=== PATIENT | female | born 1940 | race Caucasian/White ===

== ENCOUNTER 2018-04-21 09:58 | Inpatient (IN) | payer MEDICARE, MEDICAID, SELFPAY ==
[2018-04-21 10:00] VITALS: BP 136/81; PULSE 115; RESP 17; TEMP 36.3; O2SAT 93; BMI 23.3
--- NOTE | 2018-04-21 10:39 | ED.VISSUMM ---
- ER Visit Summary Date of Service: 04/21/18 Chief Complaint: [] Spasm to the right side of the body for years cannot function at home History of Present Illness: The patient is a 78 F [] long history of unspecified spasm to her body primarily the right side the hips the lower extremity the right lower ankle is contorted internally flexed rotated long-standing, she has been seen extensively by multiple physicians per the family including neurologist orthopedics other physicians and providers she has been evaluated for bony disorders or musculoskeletal disorders MS etc. no clear diagnosis has been established, she was under the care of physical therapy but that had to be stopped because a physical therapy actually made things worse. Today she followed up with her primary care outpatient providers while in the office she had persistent intensification of the spasm to the point that they could not get her into the car they could not get her home the daughter cannot take care of her paramedics were called she was brought to the hospital Chronic relapsing condition there is been nothing different or new or changed, she has had no fever no cough no trauma, she occasionally will use Flexeril for her complaints she does have diabetes and some dependent should her blood sugars been under 300 she has not taken any medicines today Physical Examination: [] 130/81, General, no distress resting comfortably HEENT is generally unremarkable The neck is supple no adenopathy Cardiovascular, regular rate and rhythm Lungs, clear bilateral Abdomen, soft nontender Extremities, no clubbing cyanosis or edema, she complains of spasm from her hip down her right leg diffusely, her right lower extremity is chronically internally flexed at the ankle, there is no pain no warmth no swelling no signs of trauma per the family her back exam is unremarkable without lesions or pain she bases complains of a spasm that starts in the upper right leg goes down the thigh down the knee down the tib-fib into the ankle that is a recurrent process she has had and she cannot find any areas of relief, this is a standard stable condition for her except for the persistent nature of the pain in the spasm Neurologic, awake alert answering questions Long conversation with the patient her daughter this is an chronic relapsing condition given all of the above we will provide IV fluids screening labs pain management some muscle relaxer controlled with Ativan, the daughter states she can no longer manage her at home they have been trying to work with outpatient providers to get her into a fdc the daughter would like that expedited through the emergency department I have explained to her we will have medical social consultant see her and see what can be done Test Results: [] Emergency Department Course and Treatment: [] She also services has seen the patient they are unable to arrange for direct fdc placement from the emergency department the daughter states she cannot manage and take care of her at home any longer because of all the above I spoke with the hospitalist to see her further management admission Treatment Plan: [] Disposition: [] admit stable Impression: [] Intractable right lower extremity pain and spasm, failed outpatient management This note was generated with [employer]pi dictation software. It may contain incorrect words, spelling, and punctuation that were not noted in review of the chart prior to signing ED Disposition - Plan for ED Patient: Chief Complaint: Other, Pain/Inj Referrals: Marcell Chery MD [Primary Care Provider] -
--- NOTE | 2018-04-21 10:43 | ED.DCSUM_ITS ---
- ER Visit Summary Date of Service: 04/21/18 Chief Complaint: [] Spasm to the right side of the body for years cannot function at home History of Present Illness: The patient is a 78 F [] long history of unspecified spasm to her body primarily the right side the hips the lower extremity the right lower ankle is contorted internally flexed rotated long-standing, she has been seen extensively by multiple physicians per the family including neurologist orthopedics other physicians and providers she has been evaluated for bony disorders or musculoskeletal disorders MS etc. no clear diagnosis has been established, she was under the care of physical therapy but that had to be stopped because a physical therapy actually made things worse. Today she followed up with her primary care outpatient providers while in the office she had persistent intensification of the spasm to the point that they could not get her into the car they could not get her home the daughter cannot take care of her paramedics were called she was brought to the hospital Chronic relapsing condition there is been nothing different or new or changed, she has had no fever no cough no trauma, she occasionally will use Flexeril for her complaints she does have diabetes and some dependent should her blood sugars been under 300 she has not taken any medicines today Physical Examination: [] 130/81, General, no distress resting comfortably HEENT is generally unremarkable The neck is supple no adenopathy Cardiovascular, regular rate and rhythm Lungs, clear bilateral Abdomen, soft nontender Extremities, no clubbing cyanosis or edema, she complains of spasm from her hip down her right leg diffusely, her right lower extremity is chronically internally flexed at the ankle, there is no pain no warmth no swelling no signs of trauma per the family her back exam is unremarkable without lesions or pain she bases complains of a spasm that starts in the upper right leg goes down the thigh down the knee down the tib-fib into the ankle that is a recurrent process she has had and she cannot find any areas of relief, this is a standard stable condition for her except for the persistent nature of the pain in the spasm Neurologic, awake alert answering questions Long conversation with the patient her daughter this is an chronic relapsing condition given all of the above we will provide IV fluids screening labs pain management some muscle relaxer controlled with Ativan, the daughter states she can no longer manage her at home they have been trying to work with outpatient providers to get her into a mcc the daughter would like that expedited through the emergency department I have explained to her we will have certified social workers in health care see her and see what can be done Test Results: [] Emergency Department Course and Treatment: [] She also services has seen the patient they are unable to arrange for direct mcc placement from the emergency department the daughter states she cannot manage and take care of her at home any longer because of all the above I spoke with the hospitalist to see her further management admission Treatment Plan: [] Disposition: [] admit stable Impression: [] Intractable right lower extremity pain and spasm, failed outpatient management This note was generated with [employer] dictation software. It may contain incorrect words, spelling, and punctuation that were not noted in review of the chart prior to signing ED Disposition - Plan for ED Patient: Chief Complaint: Other, Pain/Inj Referrals: Marcell Chery MD [Primary Care Provider] -
--- NOTE | 2018-04-21 11:07 | ED.RN ---
PER PT DAUGHTER. PT IS NOT ABLE TO RETURN HOME D/T PT THREATENING TO HARM HERSELF
[2018-04-21 11:12] LABS: Absolute Lymphocyte Count 1.56 X10^3/ul (0.83-4.51); Absolute Neutrophil Count 7.6 X10^3/uL (2.0-7.7); Basophil# 0.01 X10^3/uL; Basophil% 0.1 % (0-1); Eosinophil# 0.03 X10^3/uL; Eosinophils% 0.3 % (0-5); Hematocrit 41.8 % (37-47); Hemoglobin 13.9 g/dl (12.0-15.0); Lymphocyte # 1.56 X10^3/ul (4.0); Lymphocyte % 16.3 % (19-41); Mean Corp Hgb Conc 33.3 g/gl (32-36); Mean Corpuscular Hgb 28.5 pg (27.0-32.0); Mean Corpuscular Volume 85.8 fL (81-99); Mean Platelet Vol. 10.9 fl (6.2-12.0); Monocyte# 0.35 X10^3/uL; Monocyte% 3.6 % (0-10); Neutrophil % 79.3 % (47-70); Platelet Count 164 K/mm3 (150-450); RBC Distribution Width CV 13.4 % (11.6-14.6); RBC Distribution Width SD 41.3 fl (35.1-43.9); Red Blood Count 4.87 M/mm3 (4.2-5.4); White Blood Count 9.6 K/mm3 (4.4-11.0)
[2018-04-21 11:15] LABS: POSITIVE COUNT NO; POSITIVE DIFFERENTIAL NO; POSITIVE MORPHOLOGY NO
[2018-04-21] MEDS: LORazepam 2 MG/ML Syringe 0.5 MG IV (11:17)
[2018-04-21] MEDS: Ondansetron 4 MG/2 ML Vial IV (11:18)
[2018-04-21 11:21] LABS: Anion Gap 11 (5-15); BUN 22 mg/dL (7-18); BUN/Creat Ratio 27.9 RATIO (10-20); Chloride 102 mmol/L (98-107); Creatinine, Serum 0.79 mg/dL (0.55-1.02); EST Glomerular Filtration Rate 75 mL/min (>60); Est Glom Filt Rate - Afr Amer 91 mL/min (>60); Estimated Creatinine Clearance 39.59 ml/min; Glucose 368 mg/dL (74-106); Potassium 4.6 mmol/L (3.5-5.1); Sodium Level 138 mmol/L (136-145)
--- NOTE | 2018-04-21 11:44 | CM.ED ---
Social Work Note Call from F Mady RODRIGUES, stating that the pt and family will be seeking assisted placement. Face to face with the pt. Introduced self and role at [facility]. The pt reports that she moved to [place] with her daughter, Nyla, following discharge from a SNF in [place] in December of this year. She claims she was there for approximately 5 months. She presently has Medicare A and B, but denies having a hospitalization in the past 30 days. Reports that she had Medicaid in [place], but is not sure that they had it transferred to [place] when she moved. Reports that she lives with her daughter, Nyla, Son in Law, Xander, and two granddaughters, Carmella (17) and Willow (14). They live in a two-story home with a one-level setup for the pt. She has a wheelchair and walker at home, but primarily uses the wheelchair per her report. States that the walker she has is too short. She has been participating in outpatient therapy she states. At this time she reports that she would like to go into a SNF for continued therapy. Complains of stiffness in her legs contributing to difficulty with walking. [facility] whether [facility] does or does not have Medicaid. According to the pt her income is $675/month and she receives $77 in [employer]. Inquire if she is currently getting the [employer] and she states that she does not know. Need to validate that benefits were transferred from [place] to [place] before continuing with assistance in transferring to SNF/ECF. After waiting on hold for 25 minutes with S they confirmed that the pt and her daughter had applied for Medicaid for her in March. They are awaiting confirmation from [place] that the Medicaid benefits from there have stopped. Placed call to pt's daughter Nyla, who states that she would like the pt to go to [facility]. Inform that unfortunately they typically do not have beds, and encourage her to have an alternative option. Nyla states that she does not have one. Inquire what her plan will be if [facility] does not have availability and she states to take her home. Begins in with if she is living with her though the pt becomes a lower priority on the waiting list than if she were in the hospital. Express understanding, but explain that we cannot just admit the pt so she remains on higher priority. Discuss some facilities and Nyla states if [facility] cannot accept she would be interested in [facility] [place] as it is newer. Placed call to Leeann at [facility] who confirms that they do not have long-term availability at this time, nor do they accept pending Medicaid. Per Leeann the family was given information on how to place the pt on the waiting list and states that they need to do this via completion of the application. Will relay to pt's daughter, Nyla. Placed call to Nyla at [facility]. Nyla states that she will contact [facility] and if they think that the pending Medicaid will go through she would review the referral. Placed call to [facility]) at [phone]. States that the client herself needs to request that these records be sent to our local [facility]. Placed call to pt's daughter, Nyla, to update. JACINTA Sosa, CHEO
[2018-04-21 13:13] VITALS: BP 104/56; PULSE 80; RESP 18; O2SAT 96
--- NOTE | 2018-04-21 14:39 | CM.ED ---
Social Work Note Discussed case with physician and pt to be admitted in observation status while awaiting authorization from Medicaid. Updated pt's daughter, Nyla. Samira Garcia, PRECISION AGRONOMIST, [facility]
--- NOTE | 2018-04-21 14:42 | HP.PCM_ITS ---
History of Present Illness Date of Admission: 04/21/18 Chief Complaint: Generalized pain and cramps The patient is a 78 year old F with past medical history of diabetes mellitus and chronic pain. She was admitted through the ED on 04/21/2018 with a complaint of severe cramps and generalized pain. Grams remaining his lower extremities. According to patient, she was diagnosed with DKA year ago and spent about a week in the ICU. After that he started having severe generalized pain and periodic cramps which was admitted in the skilled nursing for therapy. She was recently discharged from the skilled nursing when see her PCP today. She was having terrible cramps and was unable to get in the car on her own and comes in pain persisted. She therefore decided coming to the ED for evaluation. Bradycardia documentation, she has been reviewed by multiple physicians including neurology, orthopedic surgery for bone or muscular skeletal disorders but no diagnosis has been established. Bradycardia notes, she is to follow-up with physical therapy because therapy was actually making situations worse. Vitals in the ED showed pulse rate of 115 was otherwise unremarkable. CBC was essentially unremarkable and chemistry only showed glucose of 368. She is been admitted to be managed for severe cramps and generalized intractable pain. She is for placement. The ED did try placing her in a skilled nursing but the skilled nursing would not take her until [facility] at [facility]. [] Past Medical History Allergies No Known Allergies Allergy (Verified 04/21/18 10:00) Home Medications: Ambulatory Orders Medication Instructions Recorded Acetaminophen [Tylenol Extra 1,000 mg PO PRN PRN 04/21/18 Strength] Insulin Aspart [Novolog Flexpen See Protocol SC TIDCM 04/21/18 ([facility])] Insulin Detemir [Levemir (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 Denies: Chills, Fever, Malaise, Weight Change, Fatigue Eyes: Denies: Blurred vision HEENT: Denies: Head Aches, Sinus Congestion, Sinus Drainage Cardiovascular: Denies: Chest Pain, Palpitations Respiratory: Denies: Cough, Shortness of Breath, Shortness of breath at rest, Sputum production Gastrointestinal: Denies: Abdominal Pain, Nausea, Vomiting Genitourinary: Denies: Dysuria Musculoskeletal: Reports: Leg Pain, Muscle pain. Denies: Joint Pain, Joint Tenderness, Neck Pain, Shoulder Pain Skin: Denies: Rash, Wounds Neurological: Denies: Numbness, Tingling, Focal weakness Psychiatric: Denies: Anxiety, Depression, Homicidal Ideations, Suicidal Ideations Hematologic/ Lymphatic: Denies: Easy Bruising, Easy Bleeding VTE Information - Inpt Only VTE Present on Admission: No VTE Pharm Prophylaxis ordered?: Yes - Physical Exam General: Alert, Oriented x3, Cooperative, No apparent distress HEENT: Atraumatic, PERRLA, EOMI, Normocephalic Oral: Moist Mucosa Neck: Supple, No JVD, Negative Carotid Bruits Lungs: Clear to auscultation, Normal air movement, No rhonchi, No wheeze, No rales Cardiovascular: Regular rate, Regular Rhythm, Normal S1, Normal S2, No murmurs Abdomen: Bowel Sounds Present, Soft, Non Tender, Non-Distended, No Hepato- splenomegaly Extremities: No clubbing, No cyanosis, No edema, Capillary Refill Less than 3 Seconds Skin: No rashes, No breakdown Musculoskeletal: Tenderness - generalised tenderness of LEs on palpation; internal rotation of right foot. Lymphatic: No Cervical, Supraclavicular, or Inguinal Adenopathy Neurological: Cranial nerves II-XII grossly intact, Neuro grossly intact, - - right foot internally rotated; decreased power with dorsiflexion and plantar flexion of both feet Psych/Mental Status: Normal Affect, Appropriate, Alert and oriented to time, place, person, mood and affect Vital Signs Temp Pulse Resp BP Pulse Ox 97.3 F L 80 18 104/56 L 96 04/21/18 10:00 04/21/18 13:13 04/21/18 13:13 04/21/18 13:13 04/21/18 13:13 Oxygen Delivery Method Room Air Weight: 132 lb Body Mass Index (BMI) 23.3 Laboratory Tests Past 24 Hrs 04/21/18 04/21/18 10:57 10:57 WBC 9.6 RBC 4.87 Hgb 13.9 Hct 41.8 MCV 85.8 MCH 28.5 MCHC 33.3 RDW 13.4 RDW Differential 41.3 Plt Count 164 MPV 10.9 Immature Gran % (Auto) 0.400 Neut % (Auto) 79.3 H Lymph % (Auto) 16.3 L Bryan % (Auto) 3.6 Eos % (Auto) 0.3 Baso % (Auto) 0.1 Absolute Neuts (auto) 7.6 Absolute Lymphs (auto) 1.56 Total Counted Not Reportable Sodium 138 Potassium 4.6 Chloride 102 Carbon Dioxide 25.0 Anion Gap 11 BUN 22 H Creatinine 0.79 Estim Creat Clear Calc 39.59 Est GFR (MDRD) Af Amer 91 Est GFR (MDRD) Non-Af 75 BUN/Creatinine Ratio 27.9 H Glucose 368 H Calcium 9.0 Assessment/Plan 78-year-old female admitted with a complaint of generalized cramps and intractable pain. 1. Intractable acute on chronic pain of unclear etiology * has severe pain and cramps in LEs, which is chronic, but worsened today * had been working with PT previously, but says she felt limited because she was being given cues as to when to stop walking, even though she felt she could walk some more * admit to Med surg * PT/OT consult * tylenol for pain * for placement * will check CPK and TSH * 2. Diabetes mellitus: Glucose was 368 on admission. On insulin Levemir 25 subcut daily and insulin sliding scale. Accu-Cheks AC at bedtime. 3. Hypothyroidism: On levothyroxine 75 mg daily. Will check TSH DVT prophylaxis: Heparin Code status: Patient counseled extensively about different types of CODE STATUS including full code, DNR CCA and DNR CCA. Patient elects to be full code. Total [id number] time 16 minutes. Disposition: For placement in SNF Code Visit OBSV E&M: 85297 Initial observation care L3 Procedures: 60571 Advncd Care Plan 30 Min
--- NOTE | 2018-04-21 14:51 | NURSING ---
[facility] INTRACTABLE PAIN, CRAMPS
--- NOTE | 2018-04-21 15:10 | CM.ED ---
Social Work Note Call from Nyla at [facility] stating that they can accept. Reports that the pt does have active Medicaid according to her system and the number is [id number]. Will relay to on assigned unit. JACINTA Sosa, CHEO
[2018-04-21 15:37] VITALS: BMI 20.7
[2018-04-21 15:38] VITALS: BP 108/63; PULSE 84; RESP 18; TEMP 36.6; O2SAT 97
[2018-04-21 15:40] VITALS: BMI 20.7
[2018-04-21] MEDS: Insulin Lispro 100 UNIT/ML INSULN.PEN SQ ×2 (16:56→20:45)
[2018-04-21] MEDS: Glucerna Shake 120 ML LIQUID PO ×2 (17:00→20:59)
[2018-04-21 18:16] LABS: Bedside Glucose 235 mg/dL (70-110)
[2018-04-21 18:21] LABS: CPK Total, Creatine Kinase 40 U/L (26-192); Thyroid Stim Hormone (TSH) 0.24 uIU/mL (0.358-3.74)
[2018-04-21 18:25] LABS: Hemoglobin A1c 6.8 % (4.2-6.3)
[2018-04-21 20:25] VITALS: BP 113/69; PULSE 85; RESP 16; TEMP 36.7; O2SAT 92
--- NOTE | 2018-04-21 20:38 | NURSING ---
Pts BS check was 526. Called & informed Dr. Haines who ordered x1 dose of Lantus 20units SQ + 15 units sliding scale Humalog. Educated pt on reasons why I was giving her the 2 different kind and why the particular units were ordered. Also informed pt to not get out of bed.
[2018-04-21 22:36] LABS: Bedside Glucose > 500 mg/dL (70-110)
--- NOTE | 2018-04-21 22:40 | NURSING ---
Rechecked pts BS which was 414. Informed Dr. Haines and he stated no new orders at this time.
[2018-04-21 22:41] LABS: Bedside Glucose 414 mg/dL (70-110)
[2018-04-22 03:07] VITALS: BP 106/59; PULSE 77; RESP 14; TEMP 36.7; O2SAT 96
[2018-04-22 05:56] LABS: Absolute Neutrophil Count 3.3 X10^3/uL (2.0-7.7); Basophil# 0.03 X10^3/uL; Basophil% 0.5 % (0-1); Eosinophils% 1.6 % (0-5); Hematocrit 37.8 % (37-47); Hemoglobin 12.5 g/dl (12.0-15.0); Lymphocyte % 39.4 % (19-41); Mean Corp Hgb Conc 33.1 g/gl (32-36); Mean Corpuscular Hgb 28.7 pg (27.0-32.0); Mean Corpuscular Volume 86.9 fL (81-99); Mean Platelet Vol. 11.2 fl (6.2-12.0); Monocyte# 0.37 X10^3/uL; Monocyte% 5.8 % (0-10); Neutrophil # 3.33 X10^3/uL (2.7-7.7); Neutrophil % 52.5 % (47-70); Platelet Count 163 K/mm3 (150-450); RBC Distribution Width CV 13.5 % (11.6-14.6); RBC Distribution Width SD 41.3 fl (35.1-43.9); Red Blood Count 4.35 M/mm3 (4.2-5.4); White Blood Count 6.3 K/mm3 (4.4-11.0)
[2018-04-22 06:07] LABS: POSITIVE COUNT NO; POSITIVE DIFFERENTIAL NO; POSITIVE MORPHOLOGY NO
[2018-04-22] MEDS: Levothyroxine 75 MCG Tablet PO (06:07)
[2018-04-22] MEDS: Insulin Lispro 100 UNIT/ML INSULN.PEN SQ ×2 (06:12→12:05)
[2018-04-22 06:14] LABS: Anion Gap 7 (5-15); BUN 19 mg/dL (7-18); BUN/Creat Ratio 28.9 RATIO (10-20); Calcium,Total 8.8 mg/dL (8.5-10.1); Chloride 106 mmol/L (98-107); Creatinine, Serum 0.66 mg/dL (0.55-1.02); EST Glomerular Filtration Rate 93 mL/min (>60); Est Glom Filt Rate - Afr Amer 112 mL/min (>60); Estimated Creatinine Clearance 39.59 ml/min; Glucose 245 mg/dL (74-106); Potassium 4.1 mmol/L (3.5-5.1); Sodium Level 140 mmol/L (136-145)
[2018-04-22 06:21] LABS: Bedside Glucose 255 mg/dL (70-110)
--- NOTE | 2018-04-22 07:01 | NURSING ---
Spoke to daughter and gave update about pts night. Shared with her about the increase of Lantus + the Sliding scale. Daughter strongly urged us to keep a close eye on her mother as her sugars tend to be on the brittle side and drop quickly with a hx of seizures in the past. Stated she would be in this afternoon.
[2018-04-22 09:07] VITALS: BP 100/61; PULSE 83; RESP 16; TEMP 36.7; O2SAT 94
[2018-04-22] MEDS: Glucerna Shake 120 ML LIQUID PO ×4 (09:10→20:44)
[2018-04-22] MEDS: Enoxaparin 40 MG/0.4 ML Syringe SC (09:11)
[2018-04-22] MEDS: diazePAM 2 MG Tablet PO ×2 (09:12→17:00)
[2018-04-22 12:16] LABS: Bedside Glucose 221 mg/dL (70-110)
[2018-04-22 13:07] VITALS: BP 97/96; PULSE 76; RESP 16; TEMP 36.9; O2SAT 96
--- NOTE | 2018-04-22 16:08 | PCM.TXEXTCAR ---
- Diet 04/21/18 15:26 Diet: Calorie Controlled How many daily calories?: 1800 calorie - Wound(s) 2nd digit lt foot Wound Type: Abrasion - Therapies Weight Bearing: Full weight bearing Physical Therapy: Eval and Treat Occupational Therapy: Eval and Treat - Problem/Diagnosis (1) Debility Status: Acute Current Visit: Yes (2) Type 2 diabetes mellitus Status: Acute Current Visit: Yes (3) Leg cramps Status: Acute Current Visit: Yes - Allergies/Procedures Done in Hospital Allergies/Adverse Reactions: Allergies No Known Allergies Allergy (Verified 04/21/18 10:00) Procedures: None - Type of Care/Length of Stay Estimated LOS: Convalescent Care Less Than 30 days Type of Care Needed: Skilled Rehab Potential: Good Prognosis: Good - Additional Orders/Day of Discharge H&P will serve as current which was dated: 04/21/18 Day of Discharge: 04/23/18 - Dietary and Speech Recommendations Dietitian Recommendations/Changes: Rec calorie controlled/ 1600 calorie diet to support wt loss w/ lifestyle changes - Follow Up Care Primary Care Physician: Marcell Chery MD [Primary Care Provider] -
--- NOTE | 2018-04-22 16:18 | CASEMGMT ---
Social Work Note Transfer to extended care form has been completed for LOC. SW will fax LOC tomorrow for pt to go to [facility] at discharge. Plan: [facility] pending LOC Mary Camp MSW, MANAGER FLEET
[2018-04-22 17:00] LABS: Bedside Glucose 107 mg/dL (70-110)
[2018-04-22 18:00] VITALS: BP 103/75; PULSE 75; RESP 16; TEMP 36.7; O2SAT 96
--- NOTE | 2018-04-22 19:28 | PCM.PROGNOTE ---
Patient Problems: Active and Suspected Problems Debility (Acute) Type 2 diabetes mellitus (Acute) Leg cramps (Acute) Subjective: Patient was seen and examined today, I talked briefly with the patient's daughter by phone, patient voiced no complaints to this examiner today. We are currently awaiting approval for the patient to be accepted at a halfway facility. According to the patient's daughter, no actual reason for the patient's debility has been diagnosed-she was in a shelter in [place] up until December 2017-she had been there for approximately 5 months and according to the daughter, multiple tests have been run on the patient and she had seen neurologist without an actual diagnosis of why she is debilitated. Patient suffered a sternal fracture earlier this year and July 2017 and that is when she wound up in the shelter in [place]. - Physical Exam General: Alert, Oriented x3, Cooperative, No apparent distress, Well developed HEENT: Atraumatic, PERRLA, EOMI, Normocephalic Oral: Moist Mucosa Neck: Supple, No JVD, Negative Carotid Bruits, No Nuchal Rigidity, Trachea Midline, Thyroid Normal Size and Texture Lungs: Clear to auscultation, Normal air movement, No rhonchi, No wheeze, No rales Cardiovascular: Regular rate, Regular Rhythm, Normal S1, Normal S2, No murmurs, No Ectopic Activity, PMI Normal, No rub noted, No Gallop Abdomen: Bowel Sounds Present, Soft, Non Tender, Non-Distended Extremities: No clubbing, No cyanosis, No edema, Capillary Refill Less than 3 Seconds Skin: No rashes, No breakdown Neurological: Cranial nerves II-XII grossly intact, Neuro grossly intact, Sensory exam intact to light touch and pain Psych/Mental Status: Normal Affect, Appropriate, Alert and oriented to time, place, person, mood and affect Vital Signs Temp Pulse Resp BP Pulse Ox 98.1 F 75 16 103/75 96 04/22/18 18:00 04/22/18 18:00 04/22/18 18:00 04/22/18 18:00 04/22/18 18:00 Oxygen Delivery Method Room Air Weight: 53 kg Body Mass Index (BMI) 20.7 Intake and Output for Last 24 Hours 04/20/18 04/21/18 04/22/18 23:59 23:59 23:59 Intake Total 440 / 440 Balance 440 / 440 Laboratory Tests Past 24 Hrs 04/22/18 04/22/18 05:24 05:24 WBC 6.3 RBC 4.35 Hgb 12.5 Hct 37.8 MCV 86.9 MCH 28.7 MCHC 33.1 RDW 13.5 RDW Differential 41.3 Plt Count 163 MPV 11.2 Immature Gran % (Auto) 0.200 Neut % (Auto) 52.5 Lymph % (Auto) 39.4 [place] % (Auto) 5.8 Eos % (Auto) 1.6 Baso % (Auto) 0.5 Absolute Neuts (auto) 3.3 Absolute Lymphs (auto) 2.50 Total Counted Not Reportable Sodium 140 Potassium 4.1 Chloride 106 Carbon Dioxide 27.0 Anion Gap 7 BUN 19 H Creatinine 0.66 Estim Creat Clear Calc 39.59 Est GFR (MDRD) Af Amer 112 Est GFR (MDRD) Non-Af 93 BUN/Creatinine Ratio 28.9 H Glucose 245 H Calcium 8.8 POC Glucose 04/22/18 04/22/18 04/22/18 16:54 12:03 06:10 POC Glucose 107 221 H 255 H 04/21/18 04/21/18 22:35 20:39 POC Glucose 414 H > 500 H* Medical Necessity - Tobacco Use Smoking Status: Former smoker - quit 20 years ago Tobacco Use: Cigarettes Assessment/Plan All Active Problems Debility (Acute) Type 2 diabetes mellitus (Acute) Leg cramps (Acute) #1 chronic debility-etiology unclear at this point, PT and OT will continue to see the patient, she will need placement in a halfway facility #2 type 2 diabetes-uncontrolled, blood sugars will be monitored, her insulin will be adjusted #3 anxiety-according to the daughter patient has an anxiety disorder, she is not currently on an antidepressant, patient's daughter states that the patient was discouraged by her other daughter not to take antidepressants, I will have a discussion with the patient tomorrow concerning this #4 moderate protein and caloric malnutrition-nutritional services will see patient #5 chronic leg cramps-etiology unclear Code Visit Inpatient E&M: 05839 Init Hosp L3
--- NOTE | 2018-04-22 19:34 | PN_ITS ---
Patient Problems: Active and Suspected Problems Debility (Acute) Type 2 diabetes mellitus (Acute) Leg cramps (Acute) Subjective: Patient was seen and examined today, I talked briefly with the patient's daughter by phone, patient voiced no complaints to this examiner today. We are currently awaiting approval for the patient to be accepted at a chcf facility. According to the patient's daughter, no actual reason for the patient's debility has been diagnosed-she was in a fci in [place] up until December 2017-she had been there for approximately 5 months and according to the daughter, multiple tests have been run on the patient and she had seen neurologist without an actual diagnosis of why she is debilitated. Patient suffered a sternal fracture earlier this year and July 2017 and that is when she wound up in the fci in [place]. - Physical Exam General: Alert, Oriented x3, Cooperative, No apparent distress, Well developed HEENT: Atraumatic, PERRLA, EOMI, Normocephalic Oral: Moist Mucosa Neck: Supple, No JVD, Negative Carotid Bruits, No Nuchal Rigidity, Trachea Midline, Thyroid Normal Size and Texture Lungs: Clear to auscultation, Normal air movement, No rhonchi, No wheeze, No rales Cardiovascular: Regular rate, Regular Rhythm, Normal S1, Normal S2, No murmurs, No Ectopic Activity, PMI Normal, No rub noted, No Gallop Abdomen: Bowel Sounds Present, Soft, Non Tender, Non-Distended Extremities: No clubbing, No cyanosis, No edema, Capillary Refill Less than 3 S econds Skin: No rashes, No breakdown Neurological: Cranial nerves II-XII grossly intact, Neuro grossly intact, Sensory exam intact to light touch and pain Psych/Mental Status: Normal Affect, Appropriate, Alert and oriented to time, place, person, mood and affect Vital Signs Temp Pulse Resp BP Pulse Ox 98.1 F 75 16 103/75 96 04/22/18 18:00 04/22/18 18:00 04/22/18 18:00 04/22/18 18:00 04/22/18 18:00 Oxygen Delivery Method Room Air Weight: 53 kg Body Mass Index (BMI) 20.7 Intake and Output for Last 24 Hours 04/20/18 04/21/18 04/22/18 23:59 23:59 23:59 Intake Total 440 / 440 Balance 440 / 440 Laboratory Tests Past 24 Hrs 04/22/18 04/22/18 05:24 05:24 WBC 6.3 RBC 4.35 Hgb 12.5 Hct 37.8 MCV 86.9 MCH 28.7 MCHC 33.1 RDW 13.5 RDW Differential 41.3 Plt Count 163 MPV 11.2 Immature Gran % (Auto) 0.200 Neut % (Auto) 52.5 Lymph % (Auto) 39.4 [place] % (Auto) 5.8 Eos % (Auto) 1.6 Baso % (Auto) 0.5 Absolute Neuts (auto) 3.3 Absolute Lymphs (auto) 2.50 Total Counted Not Reportable Sodium 140 Potassium 4.1 Chloride 106 Carbon Dioxide 27.0 Anion Gap 7 BUN 19 H Creatinine 0.66 Estim Creat Clear Calc 39.59 Est GFR (MDRD) Af Amer 112 Est GFR (MDRD) Non-Af 93 BUN/Creatinine Ratio 28.9 H Glucose 245 H Calcium 8.8 POC Glucose 04/22/18 04/22/18 04/22/18 16:54 12:03 06:10 POC Glucose 107 221 H 255 H 04/21/18 04/21/18 22:35 20:39 POC Glucose 414 H > 500 H* Medical Necessity - Tobacco Use Smoking Status: Former smoker - quit 20 years ago Tobacco Use: Cigarettes Assessment/Plan All Active Problems Debility (Acute) Type 2 diabetes mellitus (Acute) Leg cramps (Acute) #1 chronic debility-etiology unclear at this point, PT and OT will continue to see the patient, she will need placement in a chcf facility #2 type 2 diabetes-uncontrolled, blood sugars will be monitored, her insulin will be adjusted #3 anxiety-according to the daughter patient has an anxiety disorder, she is not currently on an antidepressant, patient's daughter states that the patient was discouraged by her other daughter not to take antidepressants, I will have a discussion with the patient tomorrow concerning this #4 moderate protein and caloric malnutrition-nutritional services will see patient #5 chronic leg cramps-etiology unclear Code Visit Inpatient E&M: 85602 Init Hosp L3
[2018-04-22 20:23] VITALS: BP 144/74; PULSE 78; RESP 14; TEMP 36.7; O2SAT 95
[2018-04-22 21:16] LABS: Bedside Glucose 92 mg/dL (70-110)
[2018-04-23 00:16] LABS: Bedside Glucose 127 mg/dL (70-110)
[2018-04-23 03:40] VITALS: BP 117/70; PULSE 71; RESP 14; TEMP 36.4; O2SAT 93
[2018-04-23] MEDS: Levothyroxine 75 MCG Tablet PO (06:26)
[2018-04-23 06:46] LABS: Bedside Glucose 78 mg/dL (70-110)
--- NOTE | 2018-04-23 09:18 | CASEMGMT ---
Social Work Note SW faxed LOC to [facility]. Plan: [facility] pending LOC Mary Camp SPECIALTY DEPARTMENT SUPERVISOR, WRITER PRODUCER
[2018-04-23 09:40] VITALS: BP 109/61; PULSE 70; RESP 16; TEMP 36.7; O2SAT 95
[2018-04-23] MEDS: Glucerna Shake 120 ML LIQUID PO ×4 (09:54→21:33)
[2018-04-23] MEDS: Enoxaparin 40 MG/0.4 ML Syringe SC (09:55)
[2018-04-23] MEDS: diazePAM 2 MG Tablet PO ×2 (09:56→17:27)
[2018-04-23 11:45] LABS: Bedside Glucose 263 mg/dL (70-110)
[2018-04-23] MEDS: Insulin Lispro 100 UNIT/ML INSULN.PEN SQ (11:59)
--- NOTE | 2018-04-23 13:00 | CASEMGMT ---
Social Work Note SW placed a call to pt's daughter Nyla and updated her that once this worker receives LOC and pt is medically cleared she can discharge to SNF and that could be today as LOC was submitted earlier today. Nyla states understanding. Plan: [facility] pending LOC Mary Camp MEAL PACKER, MEDICAL CONSULTANT
[2018-04-23 15:40] VITALS: BP 130/35; PULSE 62; RESP 16; TEMP 36.8; O2SAT 96
--- NOTE | 2018-04-23 16:59 | CASEMGMT ---
Social Work Note SW received LOC from [facility]. SW updated physician that pt is able to discharge today to SNF under LOC. Per Physician, he will keep pt tonight due to medical reasons and will make a decision tomorrow regarding discharge. Plan: Pt can discharge to [facility] once medically cleared Mary Camp PIT TANNER, VERIFIER OPERATOR
[2018-04-23 17:31] LABS: Bedside Glucose 148 mg/dL (70-110)
--- NOTE | 2018-04-23 19:58 | PCM.PROGNOTE ---
Patient Problems: Active and Suspected Problems Debility (Acute) Type 2 diabetes mellitus (Acute) Leg cramps (Acute) Subjective: Patient was seen and examined today, we are awaiting approval for the patient to be placed in a chcf facility, I talked at length with the patient's daughter last night about her medical problems, her PCP relayed some information to her chart from his office today concerning her previous workup it appears that she has had MRIs of her back and brain and there was no definitive conclusion why the patient was debilitated. I talked to the patient briefly today about taking an antidepressant, she confirmed that she talked with her daughter can discerning taking the antidepressant and that she was not opposed to taking one. I will start her on Cymbalta today. Blood sugars are still fluctuating but overall are not high. - Physical Exam General: Alert, Oriented x3, Cooperative, No apparent distress, Well developed HEENT: Atraumatic, PERRLA, EOMI, Normocephalic Oral: Moist Mucosa Neck: Supple, No Nuchal Rigidity, Trachea Midline, Thyroid Normal Size and Texture Lungs: Clear to auscultation, Normal air movement, No rhonchi, No wheeze, No rales Cardiovascular: Regular rate, Regular Rhythm, Normal S1, No murmurs Abdomen: Bowel Sounds Present, Soft, Non Tender, Non-Distended Extremities: No clubbing, No cyanosis, No edema, Capillary Refill Less than 3 Seconds, - - There is a varus deformity of the patient's right foot noted, patient resists any straightening of the foot due to pain Skin: No rashes, No breakdown Neurological: Cranial nerves II-XII grossly intact, Neuro grossly intact, Sensory exam intact to light touch and pain Psych/Mental Status: Normal Affect, Appropriate, Alert and oriented to time, place, person, mood and affect Vital Signs Temp Pulse Resp BP Pulse Ox 98.2 F 62 16 130/35 H 96 04/23/18 15:40 04/23/18 15:40 04/23/18 15:40 04/23/18 15:40 04/23/18 15:40 Oxygen Delivery Method Room Air Weight: 53 kg Body Mass Index (BMI) 20.7 Intake and Output for Last 24 Hours 04/21/18 04/22/18 04/23/18 23:59 23:59 23:59 Intake Total 440 / 440 300 / 300 Balance 440 / 440 300 / 300 POC Glucose 04/23/18 04/23/18 04/23/18 16:51 11:35 06:28 POC Glucose 148 H 263 H 78 04/23/18 04/22/18 00:10 20:43 POC Glucose 127 H 92 Medical Necessity - Tobacco Use Smoking Status: Former smoker - quit 20 years ago Tobacco Use: Cigarettes Assessment/Plan All Active Problems Debility (Acute) Type 2 diabetes mellitus (Acute) Leg cramps (Acute) #1 chronic debility-etiology unclear at this point, PT and OT will continue to see the patient, she will need placement in a chcf facility #2 type 2 diabetes-uncontrolled, blood sugars will be monitored, her insulin will be adjusted, she will be monitored for hypoglycemia #3 anxiety-we will start the patient on Cymbalta at 30 mg daily #4 moderate protein and caloric malnutrition-nutritional services is seeing the patient #5 chronic leg cramps-etiology unclear #6 possible depression-again Cymbalta will be started Code Visit Inpatient E&M: 31565 Subs Hosp L2
--- NOTE | 2018-04-23 20:02 | PN_ITS ---
Patient Problems: Active and Suspected Problems Debility (Acute) Type 2 diabetes mellitus (Acute) Leg cramps (Acute) Subjective: Patient was seen and examined today, we are awaiting approval for the patient to be placed in a assisted facility, I talked at length with the patient's daughter last night about her medical problems, her PCP relayed some information to her chart from his office today concerning her previous workup it appears that she has had MRIs of her back and brain and there was no definitive conclusion why the patient was debilitated. I talked to the patient briefly today about taking an antidepressant, she confirmed that she talked with her daughter can discerning taking the antidepressant and that she was not opposed to taking one. I will start her on Cymbalta today. Blood sugars are still fluctuating but overall are not high. - Physical Exam General: Alert, Oriented x3, Cooperative, No apparent distress, Well developed HEENT: Atraumatic, PERRLA, EOMI, Normocephalic Oral: Moist Mucosa Neck: Supple, No Nuchal Rigidity, Trachea Midline, Thyroid Normal Size and Texture Lungs: Clear to auscultation, Normal air movement, No rhonchi, No wheeze, No rales Cardiovascular: Regular rate, Regular Rhythm, Normal S1, No murmurs Abdomen: Bowel Sounds Present, Soft, Non Tender, Non-Distended Extremities: No clubbing, No cyanosis, No edema, Capillary Refill Less than 3 Seconds, - - There is a varus deformity of the patient's right foot noted, patient resists any straightening of the foot due to pain Skin: No rashes, No breakdown Neurological: Cranial nerves II-XII grossly intact, Neuro grossly intact, Sensory exam intact to light touch and pain Psych/Mental Status: Normal Affect, Appropriate, Alert and oriented to time, place, person, mood and affect Vital Signs Temp Pulse Resp BP Pulse Ox 98.2 F 62 16 130/35 H 96 04/23/18 15:40 04/23/18 15:40 04/23/18 15:40 04/23/18 15:40 04/23/18 15:40 Oxygen Delivery Method Room Air Weight: 53 kg Body Mass Index (BMI) 20.7 Intake and Output for Last 24 Hours 04/21/18 04/22/18 04/23/18 23:59 23:59 23:59 Intake Total 440 / 440 300 / 300 Balance 440 / 440 300 / 300 POC Glucose 04/23/18 04/23/18 04/23/18 16:51 11:35 06:28 POC Glucose 148 H 263 H 78 04/23/18 04/22/18 00:10 20:43 POC Glucose 127 H 92 Medical Necessity - Tobacco Use Smoking Status: Former smoker - quit 20 years ago Tobacco Use: Cigarettes Assessment/Plan All Active Problems Debility (Acute) Type 2 diabetes mellitus (Acute) Leg cramps (Acute) #1 chronic debility-etiology unclear at this point, PT and OT will continue to see the patient, she will need placement in a assisted facility #2 type 2 diabetes-uncontrolled, blood sugars will be monitored, her insulin will be adjusted, she will be monitored for hypoglycemia #3 anxiety-we will start the patient on Cymbalta at 30 mg daily #4 moderate protein and caloric malnutrition-nutritional services is seeing the patient #5 chronic leg cramps-etiology unclear #6 possible depression-again Cymbalta will be started Code Visit Inpatient E&M: 53644 Subs Hosp L2
[2018-04-23 20:57] VITALS: BP 109/67; PULSE 75; RESP 18; TEMP 36.8; O2SAT 97
[2018-04-23 21:15] VITALS: PULSE 75; RESP 18; O2SAT 97
[2018-04-23] MEDS: DULoxetine Hcl 30 MG Capsule PO (21:33)
[2018-04-23 23:05] LABS: Bedside Glucose 124 mg/dL (70-110)
[2018-04-24 02:38] VITALS: BP 129/89; PULSE 73; RESP 18; TEMP 36.6; O2SAT 96
[2018-04-24] MEDS: Levothyroxine 75 MCG Tablet PO (06:37)
[2018-04-24] MEDS: Insulin Lispro 100 UNIT/ML INSULN.PEN SQ ×4 (06:40→21:22)
[2018-04-24] MEDS: diazePAM 2 MG Tablet PO (06:43)
[2018-04-24 07:10] LABS: Bedside Glucose 270 mg/dL (70-110)
[2018-04-24 08:05] VITALS: BP 124/76; PULSE 65; RESP 18; TEMP 37.1; O2SAT 93
[2018-04-24 10:27] VITALS: BP 116/69; PULSE 72; RESP 18; TEMP 37; O2SAT 94
[2018-04-24] MEDS: Enoxaparin 40 MG/0.4 ML Syringe SC (10:45)
[2018-04-24] MEDS: DULoxetine Hcl 30 MG Capsule PO (10:47)
[2018-04-24 11:06] LABS: Bedside Glucose 324 mg/dL (70-110)
--- NOTE | 2018-04-24 13:39 | CASEMGMT ---
Addendum entered by Mary Camp 04/24/18 14:16: SW updated pt and pt's daughter that physician is keeping pt today and pt should be able to discharge tomorrow. Original Note: Social Work Note Per physician, pt will be discharged tomorrow. LILIA updated Nyla at [facility]. LILIA faxed updated clinicals to Nyla. Plan: [facility] tomorrow Mary Camp GARMENT FINISHER, SALES SOLUTIONS ASSOCIATE
[2018-04-24] MEDS: Glucerna Shake 120 ML LIQUID PO ×3 (14:06→21:19)
[2018-04-24 14:16] VITALS: BP 122/71; PULSE 86; RESP 18; TEMP 37.1; O2SAT 98
--- NOTE | 2018-04-24 15:31 | NURSING ---
This RN taking over care at this time
[2018-04-24 16:41] LABS: Bedside Glucose 158 mg/dL (70-110)
--- NOTE | 2018-04-24 16:49 | CON.PCM_ITS ---
Reason for Consult Date of Consultation: 04/24/18 History of Present Illness: The patient is a 78 year old F who presented to my clinic 2.5 months ago for contracture of right ankle. contracture has been present several months now and has progressively worsened. as a result of this contracture, she has been ambulating to the lateral aspect of her foot. she has developed weakness of her lower extremity and is now unable to ambulate. she is anticipating discharge to rehab facility for possible rehab placement. podiatry is consulted to provide recommendations for bracing and/or options to assist in strengthening of right lower extremity. Past Medical History Allergies No Known Allergies Allergy (Verified 04/21/18 10:00) Home Medications: Ambulatory Orders Medication Instructions Recorded Acetaminophen [Tylenol Extra 1,000 mg PO PRN PRN 04/21/18 Strength] Insulin Detemir [Levemir FlexPen] 25 units SC DAILY 04/21/18 Levothyroxine [Synthroid] 75 mcg PO DAILY 04/21/18 Diazepam [Valium] 2 mg PO TID PRN PRN #20 tab 04/22/18 Surgical History: no surgical history Psychiatric History: No pertinent psych hx FLORIST MANAGER History: No pertinent FLORIST MANAGER history Lives: With Family Smoking Status: Former smoker - quit 20 years ago Tobacco Use: Cigarettes Alcohol: None Drugs: None - *Family History Paternal History Items: No pertinent history Maternal History Items: Cancer Patient Problems: Active and Suspected Problems Debility (Acute) Type 2 diabetes mellitus (Acute) Leg cramps (Acute) Objective: patient is alert and orientated x 3. she does not appear in any distress vascular: DP and PT pulses are faint. cft is less than 5 seconds. skin temperature is warm to warm. Hair growth is present b/l Neuro: protective sensation is intact to b/l lower extremity. MMT is 5/5 for plantarflexion, dorsiflexion, inversion and everison of left lower extremity. MMT is 5/5 for dorsiflexion and plantarflexion of right lower extremity. MMT is 3/5 for eversion of right lower extremity. 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 Derm: there are no ulcerations or callus noted to b/l lower extremity. there is risk of potential sore to lateral ankle due to deformity present. 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 - Physical Exam Vital Signs Temp Pulse Resp BP Pulse Ox 98.8 F 86 18 122/71 H 98 04/24/18 14:16 04/24/18 14:16 04/24/18 14:16 04/24/18 14:16 04/24/18 14:16 Oxygen Delivery Method Room Air Weight: 53 kg Body Mass Index (BMI) 20.7 Intake and Output for Last 24 Hours 04/22/18 04/23/18 04/24/18 23:59 23:59 23:59 Intake Total 440 / 440 300 / 300 775 / 775 Output Total 400 / 400 Balance 440 / 440 300 / 300 375 / 375 POC Glucose 04/24/18 04/24/18 04/24/18 16:31 11:03 06:39 POC Glucose 158 H 324 H 270 H 04/23/18 04/23/18 21:36 16:51 POC Glucose 124 H 148 H Assessment/Plan All Active Problems Debility (Acute) Type 2 diabetes mellitus (Acute) Leg cramps (Acute) Patient was examined and informed of current findings This patient was seen by me 2.5 months ago for deformity of right ankle. she has been in therapy and physical therapy has exhausted treatment options for her. prior to me seeing her 2.5 months ago, she had been walking on lateral aspect of right ankle. now apparently she is not walking any more due to this deformity. this deformity is very debilitating for her. I suspect her posterior tibial tendon is overpowering her peroneal tendon in combination with equinus which is causing her deformity. I had referred her to orthopedics in the past but daughter was unable to get patient to appointment. I don't foresee any bracing as ideal option due to rigid nature of her deformity. I fear that any brace or boot would only cause rubbing and potential sore formation. this is challenging case in that all past neuro work-up from [facility] was negative. I would recommend padding of b/l ankles while in bed I would recommend mri of ankle to evaluate for any tendon pathology, most notably the lateral ankle and peroneal tendon. I will contact patient daughter to see if she would like to reschedule with ortho to discuss options for this. I feel that she has poor prognosis with conservative care and bracing.
--- NOTE | 2018-04-24 18:12 | PN_ITS ---
Patient Problems: Active and Suspected Problems Debility (Acute) Type 2 diabetes mellitus (Acute) Leg cramps (Acute) Subjective: She was seen and examined today, I talked with her daughter who is in the room, the daughter had questions about changing the patient to Ativan because she felt that the patient did better on Ativan, I explained to her that most nursing facilities do not like the use of Ativan and that the patient is on Valium for leg cramping and I feel that most nursing facilities would allow the patient to have Valium for the leg cramping. Daughter understands this, I told the patient and the daughter that I believe if the patient has an anxiety issue, it would be more prudent to increase the patient's Cymbalta. Patient is agreed to take a higher dose of Cymbalta. - Physical Exam General: Alert, Oriented x3, Cooperative, No apparent distress, Well developed HEENT: Atraumatic, PERRLA, EOMI, Normocephalic Oral: Moist Mucosa Neck: Supple, No Nuchal Rigidity, Trachea Midline, Thyroid Normal Size and Texture Lungs: Clear to auscultation, Normal air movement, No rhonchi, No wheeze, No rales Cardiovascular: Regular rate, Regular Rhythm, Normal S1, Normal S2, No murmurs, No Ectopic Activity Abdomen: Bowel Sounds Present, Soft, Non Tender Extremities: No clubbing, No cyanosis, Capillary Refill Less than 3 Seconds, - - There is a deformity to the patient's right ankle with a varus deformity noted. Skin: No rashes, No breakdown Neurological: Cranial nerves II-XII grossly intact, Neuro grossly intact, Sensory exam intact to light touch and pain Psych/Mental Status: Normal Affect, Appropriate, Alert and oriented to time, place, person, mood and affect Vital Signs Temp Pulse Resp BP Pulse Ox 98.8 F 86 18 122/71 H 98 04/24/18 14:16 04/24/18 14:16 04/24/18 14:16 04/24/18 14:16 04/24/18 14:16 Oxygen Delivery Method Room Air Weight: 53 kg Body Mass Index (BMI) 20.7 Intake and Output for Last 24 Hours 04/22/18 04/23/18 04/24/18 23:59 23:59 23:59 Intake Total 440 / 440 300 / 300 775 / 775 Output Total 400 / 400 Balance 440 / 440 300 / 300 375 / 375 POC Glucose 04/24/18 04/24/18 04/24/18 16:31 11:03 06:39 POC Glucose 158 H 324 H 270 H 04/23/18 21:36 POC Glucose 124 H Medical Necessity - Tobacco Use Smoking Status: Former smoker - quit 20 years ago Tobacco Use: Cigarettes Assessment/Plan All Active Problems Debility (Acute) Type 2 diabetes mellitus (Acute) Leg cramps (Acute) #1 chronic debility-etiology unclear at this point, PT and OT will continue to see the patient, she will need placement in a senior care facility, I had podiatry see the patient today for her right ankle deformity which appears to be chronic, patient will have an MRI as ordered by podiatry on her right ankle. #2 type 2 diabetes-uncontrolled, blood sugars will be monitored, her insulin will be adjusted, she will be monitored for hypoglycemia, patient's blood sugars have been trending higher today. #3 anxiety-patient's Cymbalta will be increased to 60 mg daily #4 moderate protein and caloric malnutrition-nutritional services is seeing the patient #5 chronic leg cramps-etiology unclear #6 possible depression-again Cymbalta was increased Code Visit Inpatient E&M: 55294 Subs Hosp L2
[2018-04-24 19:56] VITALS: BP 117/63; PULSE 76; RESP 18; TEMP 36.6; O2SAT 97
[2018-04-24 20:00] VITALS: PULSE 76
[2018-04-24 22:10] LABS: Bedside Glucose 292 mg/dL (70-110)
[2018-04-25 02:00] VITALS: BP 111/59; PULSE 77; RESP 18; TEMP 36.6; O2SAT 93
[2018-04-25] MEDS: Levothyroxine 75 MCG Tablet PO (06:36)
[2018-04-25 06:55] LABS: Bedside Glucose 153 mg/dL (70-110)
--- NOTE | 2018-04-25 08:53 | PCA ---
pt off floor
[2018-04-25] MEDS: diazePAM 2 MG Tablet PO (09:15)
[2018-04-25 10:46] VITALS: BP 86/23; PULSE 72; RESP 16; TEMP 36.5; O2SAT 95
[2018-04-25] MEDS: Glucerna Shake 120 ML LIQUID PO (10:53)
[2018-04-25] MEDS: Enoxaparin 40 MG/0.4 ML Syringe SC (10:53)
[2018-04-25] MEDS: DULoxetine Hcl 60 MG Capsule PO (10:55)
[2018-04-25] MEDS: Insulin Lispro 100 UNIT/ML INSULN.PEN SQ (11:02)
--- NOTE | 2018-04-25 11:20 | CASEMGMT ---
Social Work Note Pt is scheduled to have MRI completed today at 2:00pm. SW placed a call to Nyla at [facility] and left her a message informing her on pt's MRI and she should be discharged after MRI. PAS/RR completed in HENS. Transportation form on chart. Green sheet on chart. Plan: Discharge to [facility] once medically cleared Mary Camp GARAGE HELPER, SHOE REPAIRER
[2018-04-25] MEDS: diazePAM 5 MG Tablet PO (11:44)
[2018-04-25 11:45] LABS: Bedside Glucose 237 mg/dL (70-110)
[2018-04-25 11:51] VITALS: BP 104/62
[2018-04-25 12:10] VITALS: BP 113/63; PULSE 78; RESP 18; TEMP 36.4; O2SAT 97
[2018-04-25 15:40] VITALS: BP 115/65; PULSE 70; RESP 16; TEMP 36.3; O2SAT 96
--- NOTE | 2018-04-25 16:42 | MRI_ITS ---
STUDY: MRI RIGHT ANKLE WITHOUT CONTRAST REASON FOR EXAM: Right ankle contracture for 9 months unable to walk. TECHNIQUE: Standardized fat and water weighted pulse sequences were obtained in all 3 orthogonal planes. COMPARISON: None. FINDINGS: Normal subcutis adipose space. There is mild thickening of the distal posterior tibialis tendon (T1 axial image 14) suggestive of tendinosis without discrete tendon tear. Normal flexor digitorum longus tendon. Normal flexor hallucis longus tendon. Normal peroneus longus and brevis tendons. Normal tibialis anterior tendon. Normal extensor hallucis longus tendon. Normal extensor digitorum longus tendons. Normal Achilles tendon and teno-osseous insertion. Normal plantar fascia. Normal plantar calcaneal tubercles. Normal intrinsic muscles of the rearfoot. Normal distal tibiofibular syndesmotic ligamentous complex. Normal lateral ligamentous complex. Normal subtalar ligaments and sinus tarsi. Normal deltoid ligamentous complexes. Normal plantar calcaneonavicular (spring) ligament. Normal tibiotalar articulation. Normal talar dome. Normal subtalar articulations. There is medial subluxation of the navicular at the talonavicular articulation (T1 axial image 17). There is medial subluxation of the cuboid at the calcaneocuboid articulation (T1 axial image 23). Normal navicular-cuneiform articulations. MRI/Lower Ext/No Jt/w/o IMPRESSION: Medial subluxations of the navicular and cuboid at the talonavicular and calcaneocuboid articulations. 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 Electronically Signed: Juan Carlos Truong MD at 15:14 EST Tel , Service support ,
[2018-04-25 16:56] LABS: Bedside Glucose 136 mg/dL (70-110)
--- NOTE | 2018-04-25 18:04 | PCM.TXEXTCAR ---
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 Current Visit: Yes - Allergies/Procedures Done in Hospital Allergies/Adverse Reactions: Allergies No Known Allergies Allergy (Verified 04/21/18 10:00) Procedures: None - Type of Care/Length of Stay Estimated LOS: Convalescent Care Less Than 30 days Type of Care Needed: Skilled Rehab Potential: Good Prognosis: Good - Additional Orders/Day of Discharge Additional Orders: foam cradle boot on both feet when in bed H&P will serve as current which was dated: 04/21/18 Day of Discharge: 04/25/18 - Dietary and Speech Recommendations Dietitian Recommendations/Changes: Rec calorie controlled/ 1600 calorie diet to support wt loss w/ lifestyle changes - Follow Up Care Primary Care Physician: Marcell Chery MD [Primary Care Provider] -
--- NOTE | 2018-04-25 18:57 | PN.SURG_ITS ---
Patient Problems: Active and Suspected Problems Debility (Acute) Type 2 diabetes mellitus (Acute) Leg cramps (Acute) Subjective: patient seen at bedside with no complaints. denies any pain to her right foot. anticipating discharge today to nursing facility. Objective: alert and orientated x 3. patient does not appear in any distress. 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 there is no rom of right subtalar joint and severe loss of rom of right ankle joint mri of right lower extremity shows medial subluxation of navicular and cuboid. no ulcerations are present to b/l lower extremity. - Physical Exam Vital Signs Temp Pulse Resp BP Pulse Ox 97.4 F L 70 16 115/65 96 04/25/18 15:40 04/25/18 15:40 04/25/18 15:40 04/25/18 15:40 04/25/18 15:40 Oxygen Delivery Method Room Air Weight: 53 kg Body Mass Index (BMI) 20.7 Intake and Output for Last 24 Hours 04/23/18 04/24/18 04/25/18 23:59 23:59 23:59 Intake Total 300 / 300 895 / 895 320 / 320 Output Total 400 / 400 300 / 300 Balance 300 / 300 495 / 495 20 / 20 POC Glucose 04/25/18 04/25/18 04/25/18 16:53 10:59 06:34 POC Glucose 136 H 237 H 153 H 04/24/18 21:21 POC Glucose 292 H Medical Necessity - Tobacco Use Smoking Status: Former smoker - quit 20 years ago Tobacco Use: Cigarettes Assessment/Plan All Active Problems Debility (Acute) Type 2 diabetes mellitus (Acute) Leg cramps (Acute) Patient was examined and informed of current findings I had long discussion with patients daughter regarding clinical exam and mri findings. patient has severe rigid contracture of right hindfoot. this has been present for nearly one year. according to daughter, past work-up for neuro deformity was unremarkable. Patient had mri that shows subluxation of navicular and cuboid. I suspect this in addition to equins are contributing to her hindfoot deformity. Patient daughter reports that with mother relaxed, she is able to get the foot back to rectus presentation. I do not see how this is possible as on exam, the hindfoot has no ability to renaldo. given rigid nature of this deformity, I do not feel that bracing or boot is an option. I feel that bracing or boot will only result in rubbing thereby creating ulceration. I feel that the only way one could correct this is with hindfoot surgical intervention. patient daughter is not ready to discuss this option. she would like to discuss other options. I informed patient daughter that I suspect this will be chronic issue. I feel patient is stable for discharge to rehab but she is to make sure she uses foam boots while in bed to prevent ulceration. patient daughter would like another opinion so I will make sure to send patient to another transfer table operator helper. Of note, I did have arrangements 2 months ago for patient to see ortho but her appointment was cancelled by daughter. I will try to forward pateint to another colleague. this can be arranged from rehab.
--- NOTE | 2018-04-26 17:14 | PCM.DC.SUM ---
Discharge Date and Diagnosis Date of Admission: 04/21/18 Date of Discharge: 04/25/18 - Primary Discharge Diagnosis #1 chronic debility-etiology unclear #2 type 2 diabetes-uncontrolled #3 anxiety #4 chronic leg cramps-etiology unclear #5 possible depression #6 subluxation of the right ankle-etiology unclear - Secondary Discharge Diagnosis Chronic Problems Subluxation of right ankle joint (Chronic) Hospital Course and Treatment Operations: None Procedures: None Summary of Care Provided: The patient is a 78 year old F seen in the emergency room with [facility] after being brought in by her daughter stating that she was unable to care for her at home. Patient had recently moved from [place] and was living with her daughter, she moved him with her daughter in December 2017, patient had been in a jail for approximately 6 months in [place] up to that time for generalized debility, according to the daughter, patient had undergone testing in [place] without finding an etiology for the patient's debility. Patient had been unable to walk due to a deformity of her right ankle from an unknown etiology. Patient was admitted to [place] [address], she was seen by PT and OT, she was also seen in consultation by podiatry who had seen the patient as an outpatient a few weeks prior. MRI of the patient's right ankle revealed subluxation of her right ankle from an unknown reason. Podiatry recommended the patient's daughter and the patient that she seek orthopedic consultation regarding this ankle deformity for possible surgical intervention-set also been recommended in the recent past by the same window glass installer but the patient's daughter did not follow through on the recommendation. During the patient's hospital stay, it was noted that the patient seem to have anxiety at times and with the patient's permission and the patient's daughter's permission, patient was placed on Cymbalta. Valium was used as a muscle relaxant for the patient due to complaints of muscle spasm in her legs by the patient. Patient was seen by PT and OT and it was recommended that the patient continue skilled rehab services. It was arranged for the patient to go to a local extended care facility for the services On 04/25/18, patient was seen and examined: On examination she appeared in good health and spirits. Vital signs as documented. Skin warm and dry and without overt rashes. Neck without JVD. Lungs clear. Heart exam notable for regular rhythm, normal sounds and absence of murmurs, rubs or gallops. Abdomen unremarkable and without evidence of organomegaly, masses, or abdominal aortic enlargement. Extremities-patient has a varus deformity to her right ankle noted, her right ankle is painful with attempts to straighten out the ankle. Neuro: Cranial nerves II through XII are grossly intact, no focal motor deficits were noted. Psych: Patient was alert and oriented x3, she did not appear anxious or depressed. On 04/25/18, patient was seen and examined felt to be in stable condition for discharge to an extended care facility. - Physical Exam Vital Signs Temp Pulse Resp BP Pulse Ox 97.4 F L 70 16 115/65 96 04/25/18 15:40 04/25/18 15:40 04/25/18 15:40 04/25/18 15:40 04/25/18 15:40 Oxygen Delivery Method Room Air Weight: 53 kg Body Mass Index (BMI) 20.7 Intake and Output for Last 24 Hours 04/24/18 04/25/18 04/26/18 23:59 23:59 23:59 Intake Total 895 / 895 320 / 320 Output Total 400 / 400 300 / 300 Balance 495 / 495 Home Medications: Medications to take at Discharge Acetaminophen [Tylenol Extra Strength] 1,000 mg PO PRN PRN 04/21/18 Insulin Detemir [Levemir FlexPen] 25 units SC DAILY 04/21/18 Levothyroxine [Synthroid] 75 mcg PO DAILY 04/21/18 Diazepam [Valium] 2 mg PO TID PRN PRN #20 tab 04/22/18 Duloxetine Hcl [Cymbalta] 60 mg PO DAILY capsule 04/25/18 Following Prescrptions Were Given to Patient: Diazepam [Valium] 2 mg PO TID PRN PRN #20 tab PRN Reason: Leg Cramps Primary Care Physician: Marcell Chery MD [Primary Care Provider] - Disposition: [facility] facility Minutes spent on discharge:: 32 Patient Condition:: Stable Medical Necessity - Tobacco Use Smoking Status: Former smoker - quit 20 years ago Tobacco Use: Cigarettes Meaningful Use Info Meaningful Use Diagnoses (Choose all that apply): None applicable Code Visit Inpatient E&M: 41546 Disch Hosp
--- NOTE | 2018-04-26 17:20 | DS.PCM_ITS ---
Discharge Date and Diagnosis Date of Admission: 04/21/18 Date of Discharge: 04/25/18 - Primary Discharge Diagnosis #1 chronic debility-etiology unclear #2 type 2 diabetes-uncontrolled #3 anxiety #4 chronic leg cramps-etiology unclear #5 possible depression #6 subluxation of the right ankle-etiology unclear - Secondary Discharge Diagnosis Chronic Problems Subluxation of right ankle joint (Chronic) Hospital Course and Treatment Operations: None Procedures: None Summary of Care Provided: The patient is a 78 year old F seen in the emergency room with [facility] after being brought in by her daughter stating that she was unable to care for her at home. Patient had recently moved from [place] and was living with her daughter, she moved him with her daughter in December 2017, patient had been in a jail for approximately 6 months in [place] up to that time for generalized debility, according to the daughter, patient had undergone testing in [place] without finding an etiology for the patient's debility. Patient had been unable to walk due to a deformity of her right ankle from an unknown etiology. Patient was admitted to [place] [address], she was seen by PT and OT, she was also seen in consultation by podiatry who had seen the patient as an outpatient a few weeks prior. MRI of the patient's right ankle revealed subluxation of her right ankle from an unknown reason. Podiatry recommended the patient's daughter and the patient that she seek orthopedic consultation regarding this ankle deformity for possible surgical intervention-set also been recommended in the recent past by the same terminal press operator but the patient's daughter did not follow through on the recommendation. During the patient's hospital sta y, it was noted that the patient seem to have anxiety at times and with the patient's permission and the patient's daughter's permission, patient was placed on Cymbalta. Valium was used as a muscle relaxant for the patient due to complaints of muscle spasm in her legs by the patient. Patient was seen by PT and OT and it was recommended that the patient continue skilled rehab services. It was arranged for the patient to go to a local extended care facility for the services On 04/25/18, patient was seen and examined: On examination she appeared in good health and spirits. Vital signs as documented. Skin warm and dry and without overt rashes. Neck without JVD. Lungs clear. Heart exam notable for regular rhythm, normal sounds and absence of murmurs, rubs or gallops. Abdomen unremarkable and without evidence of organomegaly, masses, or abdominal aortic enlargement. Extremities-patient has a varus deformity to her right ankle noted, her right ankle is painful with attempts to straighten out the ankle. Neuro: Cranial nerves II through XII are grossly intact, no focal motor deficits were noted. Psych: Patient was alert and oriented x3, she did not appear anxious or depressed. On 04/25/18, patient was seen and examined felt to be in stable condition for discharge to an extended care facility. - Physical Exam Vital Signs Temp Pulse Resp BP Pulse Ox 97.4 F L 70 16 115/65 96 04/25/18 15:40 04/25/18 15:40 04/25/18 15:40 04/25/18 15:40 04/25/18 15:40 Oxygen Delivery Method Room Air Weight: 53 kg Body Mass Index (BMI) 20.7 Intake and Output for Last 24 Hours 04/24/18 04/25/18 04/26/18 23:59 23:59 23:59 Intake Total 895 / 895 320 / 320 Output Total 400 / 400 300 / 300 Balance 495 / 495 Home Medications: Medications to take at Discharge Acetaminophen [Tylenol Extra Strength] 1,000 mg PO PRN PRN 04/21/18 Insulin Detemir [Levemir FlexPen] 25 units SC DAILY 04/21/18 Levothyroxine [Synthroid] 75 mcg PO DAILY 04/21/18 Diazepam [Valium] 2 mg PO TID PRN PRN #20 tab 04/22/18 Duloxetine Hcl [Cymbalta] 60 mg PO DAILY capsule 04/25/18 Following Prescrptions Were Given to Patient: Diazepam [Valium] 2 mg PO TID PRN PRN #20 tab PRN Reason: Leg Cramps Primary Care Physician: Marcell Chery MD [Primary Care Provider] - Disposition: Senior Care facility Minutes spent on discharge:: 32 Patient Condition:: Stable Medical Necessity - Tobacco Use Smoking Status: Former smoker - quit 20 years ago Tobacco Use: Cigarettes Meaningful Use Info Meaningful Use Diagnoses (Choose all that apply): None applicable Code Visit Inpatient E&M: 44961 Disch Hosp
--- NOTE | 2018-05-02 17:02 | CM.ED ---
Social Work Note Call from Jonathan Nguyen with [facility] inquiring if pt discharged to SNF. Placed call to [phone] and notified that the pt did discharge to SNF on Medicare on 04/25. JACINTA Sosa, CHEO
--- OUTSIDE RECORDS SUMMARY | 2018-06-14 16:58 | XMS RPT_ITS ---
:1940 Author Organization OHIP Care Team Providers Name Role Phone PILAR SOLIS (RETAIL SALES DIRECTOR) Attending Unavailable VON, MADISON (PT) Attending Unavailable PILAR, SOLIS (RETAIL SALES DIRECTOR) Referring Unavailable VON, MADISON (PT) Attending Unavailable PILAR, SOLIS (RETAIL SALES DIRECTOR) Referring Unavailable VON, MADISON (PT) Attending Unavailable PILAR, SOLIS (RETAIL SALES DIRECTOR) Referring Unavailable VON, MADISON (PT) Attending Unavailable PILAR, SOLIS (RETAIL SALES DIRECTOR) Referring Unavailable VON, MADISON (PT) Attending Unavailable PILAR, SOLIS (RETAIL SALES DIRECTOR) Referring Unavailable VON, MADISON (PT) Attending Unavailable PILAR, SOLIS (RETAIL SALES DIRECTOR) Referring Unavailable VON, MADISON (PT) Attending Unavailable PILAR, SOLIS (RETAIL SALES DIRECTOR) Referring Unavailable VON, MADISON (PT) Attending Unavailable PILAR, SOLIS (RETAIL SALES DIRECTOR) Referring Unavailable VON, MADISON (PT) Attending Unavailable PILAR, SOLIS (RETAIL SALES DIRECTOR) Referring Unavailable VON, MADISON (PT) Attending Unavailable PILAR, SOLIS (RETAIL SALES DIRECTOR) Referring Unavailable TESTRAKE, MONICA Attending Unavailable VON, MADISON (PT) Referring Unavailable TESTRAKE, MONICA Referring Unavailable VON, MADISON (PT) Attending Unavailable PILAR, SOLIS (RETAIL SALES DIRECTOR) Referring Unavailable VON, MADISON (PT) Attending Unavailable PILAR, SOLIS (RETAIL SALES DIRECTOR) Referring Unavailable VON, MADISNO (PT) Attending Unavailable PILAR, SOLIS (RETAIL SALES DIRECTOR) Referring Unavailable PILAR, SOLIS (RETAIL SALES DIRECTOR) Referring Unavailable PILAR, SOLIS (RETAIL SALES DIRECTOR) Referring Unavailable PILAR, SOLIS (RETAIL SALES DIRECTOR) Referring Unavailable PILAR, SOLIS (RETAIL SALES DIRECTOR) Referring Unavailable PILAR, SOLIS (RETAIL SALES DIRECTOR) Referring Unavailable ELDERBROCKFELIX Attending Unavailable Elderbrock, Felix Primary Care Unavailable Koram, Angie Jenna Admitting Unavailable Tereletsky, Felix Attending Unavailable Testrake, Monica Consulting Unavailable Koram, Angie Jenna Admitting Unavailable Koram, Angie Jenna Attending Unavailable Elderbrock, Felix Primary Care Unavailable Koram, Angie Jenna Consulting Unavailable Koram, Angie Jenna Admitting Unavailable Tereletsky, Felix Attending Unavailable Elderbrock, Felix Primary Care Unavailable Tereletsky, Felix Consulting Unavailable Koram, Angie Jenna Admitting Unavailable Tereletsky, Felix Attending Unavailable Elderbrock, Felix Primary Care Unavailable Tereletsky, Felix Consulting Unavailable Koram, Angie Jenna Admitting Unavailable Tereletsky, Felix Attending Unavailable Elderbrock, Felix Primary Care Unavailable Testrake, Monica Consulting Unavailable Tereletsky, Felix Consulting Unavailable Koram, Angie Jenna Admitting Unavailable Tereletsky, Felix Attending Unavailable Elderbrock, Felix Primary Care Unavailable Testrake, Monica Consulting Unavailable Tereletsky, Felix Consulting Unavailable Koram, Angie Jenna Admitting Unavailable Tereletsky, Felix Attending Unavailable Elderbrock, Felix Primary Care Unavailable Testrake, Monica Consulting Unavailable Tereletsky, Felix Consulting Unavailable PROBLEMS PROBLEMS DATE TYPE CONDITION / CODE ATTENDING STATUS SOURCE 01/13/2018 Active Contracture, left VNO MADISON Active [facility] hip / (PT) [facility] [place] M24.552(ICD-10) Repository 01/13/2018 Active Contracture, right VON, MADISON Active [facility] hip / (PT) [facility] [place] M24.551(ICD-10) Repository 01/13/2018 Active Generalized MADISON LONGORIA Active [facility] anxiety disorder / (PT) [facility] F41.1(ICD-10) Repository 01/13/2018 Active Pain in right foot NA Active [facility] / M79.671(ICD-10) [facility] [place] Repository PROCEDURES PROCEDURES No Procedure Records FoundRESULTS RESULTS DISCHARGE SUMMARY Observed: 04/26/2018 Status: F Source: [place] 5:21 PM [facility] [place] [place] REPOSITORY [facility] Medical Records Department [address] [place] [address] Discharge Summary 04/26/18 1714 MR#: [id number] Acct: [id number] Name: ROMAIN MCDERMOTT Rep #: [id number] : 1940 78 From: Felix Garcia DO PCP: Felix Coffey MD Status: DIS IN Y Location: [facility] [id number] Discharge Date and Diagnosis Date of Admission: 04/21/18 Date of Discharge: 04/25/18 - Primary Discharge Diagnosis #1 chronic debility-etiology unclear #2 type 2 diabetes-uncontrolled #3 anxiety #4 chronic leg cramps-etiology unclear #5 possible depression #6 subluxation of the right ankle-etiology unclear - Secondary Discharge Diagnosis Chronic Problems Subluxation of right ankle joint (Chronic) Hospital Course and Treatment Operations: None Procedures: None Summary of Care Provided: The patient is a 78 year old F seen in the emergency room with [facility] after being brought in by her daughter stating that she was unable to care for her at home. Patient had recently moved from [place] and was living with her daughter, she moved him with her daughter in December 2017, patient had been in a group home for approximately 6 months in [place] up to that time for generalized debility, according to the daughter, patient had undergone testing in [place] without finding an etiology for the patient's debility. Patient had been unable to walk due to a deformity of her right ankle from an unknown etiology. Patient was admitted to [place] [address], she was seen by PT and OT, she was also seen in consultation by podiatry who had seen the patient as an outpatient a few weeks prior. MRI of the patient's right ankle revealed subluxation of her right ankle from an unknown reason. Podiatry recommended the patient's daughter and the patient that she seek orthopedic consultation regarding this ankle deformity for possible surgical intervention-set also been recommended in the recent past by the same rn trauma but the patient's daughter did not follow through on the recommendation. During the patient's hospital stay, it was noted that the patient seem to have anxiety at times and with the patient's permission and the patient's daughter's permission, patient was placed on Cymbalta. Valium was used as a muscle relaxant for the patient due to complaints of muscle spasm in her legs by the patient. Patient was seen by PT and OT and it was recommended that the patient continue skilled rehab services. It was arranged for the patient to go to a local extended care facility for the services On 04/25/18, patient was seen and examined: On examination she appeared in good health and spirits. Vital signs as documented. Skin warm and dry and without overt rashes. Neck without JVD. Lungs clear. Heart exam notable for regular rhythm, normal sounds and absence of murmurs, rubs or gallops. Abdomen unremarkable and without evidence of organomegaly, masses, or abdominal aortic enlargement. Extremities-patient has a varus deformity to her right ankle noted, her right ankle is painful with attempts to straighten out the ankle. Neuro: Cranial nerves II through XII are grossly intact, no focal motor deficits were noted. Psych: Patient was alert and oriented x3, she did not appear anxious or depressed. On 04/25/18, patient was seen and examined felt to be in stable condition for discharge to an extended care facility. - Physical Exam Vital Signs Temp Pulse Resp BP Pulse Ox 97.4 F L 70 16 115/65 96 04/25/18 15:40 04/25/18 15:40 04/25/18 15:40 04/25/18 15:40 04/25/18 15:40 Oxygen Delivery Method Room Air Weight: 53 kg Body Mass Index (BMI) 20.7 Intake and Output for Last 24 Hours Intake Total 895 / 895 320 / 320 Output Total 400 / 400 300 / 300 Balance 495 / 495 Home Medications: Medications to take at Discharge Acetaminophen [Tylenol Extra Strength] 1,000 mg PO PRN PRN 04/21/18 Insulin Detemir [Levemir FlexPen] 25 units SC DAILY 04/21/18 Levothyroxine [Synthroid] 75 mcg PO DAILY 04/21/18 Diazepam [Valium] 2 mg PO TID PRN PRN #20 tab 04/22/18 Duloxetine Hcl [Cymbalta] 60 mg PO DAILY capsule 04/25/18 Following Prescrptions Were Given to Patient: Diazepam [Valium] 2 mg PO TID PRN PRN #20 tab PRN Reason: Leg Cramps Primary Care Physician: Felix Coffey MD [Primary Care Provider] - Disposition: [facility] facility Minutes spent on discharge:: 32 Patient Condition:: Stable Medical Necessity - Tobacco Use Smoking Status: Former smoker - quit 20 years ago Tobacco Use: Cigarettes Meaningful Use Info Meaningful Use Diagnoses (Choose all that apply): None applicable Code Visit Inpatient E AND M: 40577 Disch Hosp 04/26/18 1721 <Electronically signed by Felix Garcia DO> Date Felix Garcia DO Cosigner Signature (if applicable): Date CC: Felix Coffey MD; Felix Garcia DO Signed CONSULTATION Observed: 04/25/2018 Status: F Source: [place] 6:58 PM [facility] [place] [place] REPOSITORY [facility] Medical Records Department [address] [place] [id number] Consultation 04/24/18 1645 MR#: [id number] Acct: [id number] Name: ROMAIN MCDERMOTT Rep #: [id number] : 1940 78 From: Monica Brady DPM PCP: Felix Coffey MD Status: ADM IN Y Location: [facility] [id number] Reason for Consult Date of Consultation: 04/24/18 History of Present Illness: The patient is a 78 year old F who presented to my clinic 2.5 months ago for contracture of right ankle. contracture has been present several months now and has progressively worsened. as a result of this contracture, she has been ambulating to the lateral aspect of her foot. she has developed weakness of her lower extremity and is now unable to ambulate. she is anticipating discharge to rehab facility for possible rehab placement. podiatry is consulted to provide recommendations for bracing and/or options to assist in strengthening of right lower extremity. Past Medical History Allergies No Known Allergies Allergy (Verified 04/21/18 10:00) Home Medications: Ambulatory Orders Medication Instructions Recorded Acetaminophen [Tylenol Extra 1,000 mg PO PRN PRN 04/21/18 Surgical History: no surgical history Psychiatric History: No pertinent psych hx NURSE TECHNICIAN History: No pertinent NURSE TECHNICIAN history Lives: With Family Smoking Status: Former smoker - quit 20 years ago Tobacco Use: Cigarettes Alcohol: None Drugs: None - *Family History Paternal History Items: No pertinent history Maternal History Items: Cancer Patient Problems: Active and Suspected Problems Debility (Acute) Type 2 diabetes mellitus (Acute) Leg cramps (Acute) Objective: patient is alert and orientated x 3. she does not appear in any distress vascular: DP and PT pulses are faint. cft is less than 5 seconds. skin temperature is warm to warm. Hair growth is present b/l Neuro: protective sensation is intact to b/l lower extremity. MMT is 5/5 for plantarflexion, dorsiflexion, inversion and everison of left lower extremity. MMT is 5/5 for dorsiflexion and plantarflexion of right lower extremity. MMT is 3/5 for eversion of right lower extremity. 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 Derm: there are no ulcerations or callus noted to b/l lower extremity. there is risk of potential sore to lateral ankle due to deformity present. 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 - Physical Exam Vital Signs Temp Pulse Resp BP Pulse Ox 98.8 F 86 18 122/71 H 98 04/24/18 14:16 04/24/18 14:16 04/24/18 14:16 04/24/18 14:16 04/24/18 14:16 Oxygen Delivery Method Room Air Weight: 53 kg Body Mass Index (BMI) 20.7 Intake and Output for Last 24 Hours Intake Total 440 / 440 300 / 300 775 / 775 Output Total 400 / 400 Balance 440 / 440 300 / 300 375 / 375 POC Glucose POC Glucose 158 H 324 H 270 H POC Glucose 124 H 148 H Assessment/Plan All Active Problems Debility (Acute) Type 2 diabetes mellitus (Acute) Leg cramps (Acute) Patient was examined and informed of current findings This patient was seen by me 2.5 months ago for deformity of right ankle. she has been in therapy and physical therapy has exhausted treatment options for her. prior to me seeing her 2.5 months ago, she had been walking on lateral aspect of right ankle. now apparently she is not walking any more due to this deformity. this deformity is very debilitating for her. I suspect her posterior tibial tendon is overpowering her peroneal tendon in combination with equinus which is causing her deformity. I had referred her to orthopedics in the past but daughter was unable to get patient to appointment. I don't foresee any bracing as ideal option due to rigid nature of her deformity. I fear that any brace or boot would only cause rubbing and potential sore formation. this is challenging case in that all past neuro work-up from [facility] was negative. I would recommend padding of b/l ankles while in bed I would recommend mri of ankle to evaluate for any tendon pathology, most notably the lateral ankle and peroneal tendon. I will contact patient daughter to see if she would like to reschedule with ortho to discuss options for this. I feel that she has poor prognosis with conservative care and bracing. 04/25/181857 <Electronically signed by Monica Brady DPM> Date Monica Brady DPM Cosigner Signature (if applicable): Date CC: EDUARDO Brady; Felix Coffey MD Signed TRANSFER TO [facility] Observed: 04/25/2018 Status: F Source: [facility] 6:07 PM [facility] [place] [place] REPOSITORY [facility] Medical Records Department [address] [place] [address] Transfer to Extended Care MR#: [id number] Acct: [id number] Name: ROMAIN MCDERMOTT Rep #: [id number] : 1940 78 From: Felix Garcia DO PCP: Felix Coffey MD Status: ADM IN ROMAIN MCDERMOTT (Patient) (Health Ins. Claim No.) (Day of Discharge to Facility) Certification of patient admission REQUIRED AT TIME OF ADMISSION. I CERTIFY THAT POST-HOSPITAL ECF SERVICES ARE REQUIRED TO BE GIVEN ON AN IN-PATIENT BASIS BECAUSE OF THE ABOVE NAMED PATIENT'S NEED FOR SHELTER CARE ON A CONTINUING BASIS FOR THE CONDITION(S) FOR WHICH HE/SHE WAS RECEIVING IN-PATIENT HOSPITAL SERVICES PRIOR TO HIS/HER TRANSFER TO THE [facility]. 04/25/181806 <Electronically signed by Felix Garcia DO> Date Felix Garcia DO 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 Current Visit: Yes - Allergies/Procedures Done in Hospital Allergies/Adverse Reactions: Allergies No Known Allergies Allergy (Verified 04/21/18 10:00) Procedures: None - Type of Care/Length of Stay Estimated LOS: Convalescent Care Less Than 30 days Type of Care Needed: Skilled Rehab Potential: Good Prognosis: Good - Additional Orders/Day of Discharge Additional Orders: foam cradle boot on both feet when in bed H AND P will serve as current which was dated: 04/21/18 Day of Discharge: 04/25/18 - Dietary and Speech Recommendations Dietitian Recommendations/Changes: Rec calorie controlled/ 1600 calorie diet to support wt loss w/ lifestyle changes - Follow Up Care Primary Care Physician: Felix Coffey MD [Primary Care Provider] - 04/25/18 1807 <Electronically signed by Felix Garcia DO> Date Felix Garcia DO CC: EDUARDO Brady; Felix Coffey MD Signed BEDSIDE GLUCOSE Collected: 04/25/2018 Status: F Source: [place] 4:53 PM [facility] [place] [place] REPOSITORY TYPE CODE TESTS RESULT OUT OF REFERENCE UNITS RANGE LAB L501.080 70-110 mg/dL High BEDSIDE GLU 136 Result Comment: MANAGEMENT OF PATIENT CARE PER NURSING PROTOCOL Performed By: #### L501.080 #### [facility] Point of Care [address] [place] [address] BEDSIDE GLUCOSE Collected: 04/25/2018 Status: F Source: [place] 10:59 AM [facility] [place] [place] REPOSITORY TYPE CODE TESTS RESULT OUT OF REFERENCE UNITS RANGE LAB L501.080 70-110 mg/dL High BEDSIDE GLU 237 Result Comment: MANAGEMENT OF PATIENT CARE PER NURSING PROTOCOL Performed By: #### L501.080 #### [facility] Point of Care [address] [place] [address] BEDSIDE GLUCOSE Collected: 04/25/2018 Status: F Source: [place] 6:34 AM [facility] [place] [place] REPOSITORY TYPE CODE TESTS RESULT OUT OF REFERENCE UNITS RANGE LAB L501.080 70-110 mg/dL High BEDSIDE GLU 153 Result Comment: Insulin Given MANAGEMENT OF PATIENT CARE PER NURSING PROTOCOL Performed By: #### L501.080 #### [facility] Point of Care [address] [place] [address] BEDSIDE GLUCOSE Collected: 04/24/2018 Status: F Source: [place] 9:21 PM [facility] [place] [place] REPOSITORY TYPE CODE TESTS RESULT OUT OF REFERENCE UNITS RANGE LAB L501.080 70-110 mg/dL High BEDSIDE GLU 292 Result Comment: Insulin Given MANAGEMENT OF PATIENT CARE PER NURSING PROTOCOL Performed By: #### L501.080 #### [facility] Point of Care [address] [place] [address] LOWER EXT/NO JT/W/O Observed: 04/24/2018 Status: F Source: [place] 4:45 PM [facility] [place] [place] REPOSITORY [facility] Imaging Services [address] [place] [address] Lower Ext/No Jt/w/o MR#: [id number] Acct: [id number] Name: ROMAIN MCDERMOTT Rep #: [id number] : 1940 F 78 From: Juan Carlos Truong MD PCP: Miri ANDRADE,Felix Status: ADM IN Study: Lower Ext/No Jt/w/o Date of Exam: 04/25/18 Exam# [id number] Ordering Dr: Monica Brady DPM STUDY: MRI RIGHT ANKLE WITHOUT CONTRAST REASON FOR EXAM: Right ankle contracture for 9 months unable to walk. TECHNIQUE: Standardized fat and water weighted pulse sequences were obtained in all 3 orthogonal planes. COMPARISON: None. FINDINGS: Normal subcutis adipose space. There is mild thickening of the distal posterior tibialis tendon (T1 axial image 14) suggestive of tendinosis without discrete tendon tear. Normal flexor digitorum longus tendon. Normal flexor hallucis longus tendon. Normal peroneus longus and brevis tendons. Normal tibialis anterior tendon. Normal extensor hallucis longus tendon. Normal extensor digitorum longus tendons. Normal Achilles tendon and teno-osseous insertion. Normal plantar fascia. Normal plantar calcaneal tubercles. Normal intrinsic muscles of the rearfoot. Normal distal tibiofibular syndesmotic ligamentous complex. Normal lateral ligamentous complex. Normal subtalar ligaments and sinus tarsi. Normal deltoid ligamentous complexes. Normal plantar calcaneonavicular (spring) ligament. Normal tibiotalar articulation. Normal talar dome. Normal subtalar articulations. There is medial subluxation of the navicular at the talonavicular articulation (T1 axial image 17). There is medial subluxation of the cuboid at the calcaneocuboid articulation (T1 axial image 23). Normal navicular-cuneiform articulations. MRI/Lower Ext/No Jt/w/o IMPRESSION: Medial subluxations of the navicular and cuboid at the talonavicular and calcaneocuboid articulations. 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 Electronically Signed: Juan Carlos Truong MD at 15:14 EST Tel , Service support , CC: EDUARDO Brady; Felix Coffey MD Operational Risk Consultant: Signed BEDSIDE GLUCOSE Collected: 04/24/2018 Status: F Source: [place] 4:31 PM [facility] [place] [place] REPOSITORY TYPE CODE TESTS RESULT OUT OF REFERENCE UNITS RANGE LAB L501.080 70-110 mg/dL High BEDSIDE GLU 158 Result Comment: MANAGEMENT OF PATIENT CARE PER NURSING PROTOCOL Performed By: #### L501.080 #### [facility] Point of Care [address] [place] [address] BEDSIDE GLUCOSE Collected: 04/24/2018 Status: F Source: [place] 11:03 AM [facility] [place] [place] REPOSITORY TYPE CODE TESTS RESULT OUT OF REFERENCE UNITS RANGE LAB L501.080 70-110 mg/dL High BEDSIDE GLU 324 Result Comment: Insulin Given MANAGEMENT OF PATIENT CARE PER NURSING PROTOCOL Performed By: #### L501.080 #### [facility] Point of Care [address] [place] [address] BEDSIDE GLUCOSE Collected: 04/24/2018 Status: F Source: [place] 6:39 AM [facility] [place] [place] REPOSITORY TYPE CODE TESTS RESULT OUT OF REFERENCE UNITS RANGE LAB L501.080 70-110 mg/dL High BEDSIDE GLU 270 Result Comment: Insulin Given MANAGEMENT OF PATIENT CARE PER NURSING PROTOCOL Performed By: #### L501.080 #### [facility] Point of Care [address] [place] [address] BEDSIDE GLUCOSE Collected: 04/23/2018 Status: F Source: [place] 9:36 PM [facility] [place] [place] REPOSITORY TYPE CODE TESTS RESULT OUT OF REFERENCE UNITS RANGE LAB L501.080 70-110 mg/dL High BEDSIDE GLU 124 Result Comment: MANAGEMENT OF PATIENT CARE PER NURSING PROTOCOL Performed By: #### L501.080 #### [facility] Point of Care [address] [place] [address] BEDSIDE GLUCOSE Collected: 04/23/2018 Status: F Source: [place] 4:51 PM [facility] [place] [place] REPOSITORY TYPE CODE TESTS RESULT OUT OF REFERENCE UNITS RANGE LAB L501.080 70-110 mg/dL High BEDSIDE GLU 148 Result Comment: MANAGEMENT OF PATIENT CARE PER NURSING PROTOCOL Performed By: #### L501.080 #### [facility] Point of Care [address] [place] [address] BEDSIDE GLUCOSE Collected: 04/23/2018 Status: F Source: [place] 11:35 AM [facility] [place] [place] REPOSITORY TYPE CODE TESTS RESULT OUT OF REFERENCE UNITS RANGE LAB L501.080 70-110 mg/dL High BEDSIDE GLU 263 Result Comment: MANAGEMENT OF PATIENT CARE PER NURSING PROTOCOL Performed By: #### L501.080 #### [facility] Point of Care [address] [place] [address] BEDSIDE GLUCOSE Collected: 04/23/2018 Status: F Source: [place] 6:28 AM [facility] [place] [place] REPOSITORY TYPE CODE TESTS RESULT OUT OF RANGE REFERENCE UNITS LAB L501.080 70-110 mg/dL Normal BEDSIDE GLU 78 Result Comment: MANAGEMENT OF PATIENT CARE PER NURSING PROTOCOL Performed By: #### L501.080 #### [facility] Point of Care [address] [place] [address] BEDSIDE GLUCOSE Collected: 04/23/2018 Status: F Source: [place] 12:10 AM [facility] [place] [place] REPOSITORY TYPE CODE TESTS RESULT OUT OF REFERENCE UNITS RANGE LAB L501.080 70-110 mg/dL High BEDSIDE GLU 127 Result Comment: MANAGEMENT OF PATIENT CARE PER NURSING PROTOCOL Performed By: #### L501.080 #### [facility] Point of Care [address] [place] [address] BEDSIDE GLUCOSE Collected: 04/22/2018 Status: F Source: [place] 8:43 PM [facility] [place] [place] REPOSITORY TYPE CODE TESTS RESULT OUT OF RANGE REFERENCE UNITS LAB L501.080 70-110 mg/dL Normal BEDSIDE GLU 92 Result Comment: MANAGEMENT OF PATIENT CARE PER NURSING PROTOCOL Performed By: #### L501.080 #### [facility] Point of Care [address] [place] [address] BEDSIDE GLUCOSE Collected: 04/22/2018 Status: F Source: [place] 4:54 PM [facility] [place] [place] REPOSITORY TYPE CODE TESTS RESULT OUT OF RANGE REFERENCE UNITS LAB L501.080 70-110 mg/dL Normal BEDSIDE GLU 107 Result Comment: MANAGEMENT OF PATIENT CARE PER NURSING PROTOCOL Performed By: #### L501.080 #### [facility] [facility] Point of Care [address] [place], [place] [address] TRANSFER TO [facility] Observed: 04/22/2018 Status: F Source: INDEPENDENCE CARE 4:14 PM [facility] [place], [place] REPOSITORY [facility] Medical Records Department [address] [facility] [address] Transfer to Extended Care MR#: [id number] Acct: [id number] Name: ROMAIN MCDERMOTT Rep #: [id number] : 1940 78 From: Felix Garcia DO PCP: Felix Coffey MD Status: ADM ILEANA ROMAIN MCDERMOTT (Patient) (Health Ins. Claim No.) (Day of Discharge to Facility) Certification of patient admission REQUIRED AT TIME OF ADMISSION. I CERTIFY THAT POST-HOSPITAL ECF SERVICES ARE REQUIRED TO BE GIVEN ON AN IN-PATIENT BASIS BECAUSE OF THE ABOVE NAMED PATIENT'S NEED FOR SHELTER CARE ON A CONTINUING BASIS FOR THE CONDITION(S) FOR WHICH HE/SHE WAS RECEIVING IN-PATIENT HOSPITAL SERVICES PRIOR TO HIS/HER TRANSFER TO THE [facility]. 04/22/18 1614 <Electronically signed by Felix Garcia DO> Date Felix Garcia DO - Diet 04/21/18 15:26 Diet: Calorie Controlled How many daily calories?: 1800 calorie - Wound(s) 2nd digit lt foot Wound Type: Abrasion - Therapies Weight Bearing: Full weight bearing Physical Therapy: Eval and Treat Occupational Therapy: Eval and Treat - Problem/Diagnosis (1) Debility Status: Acute Current Visit: Yes (2) Type 2 diabetes mellitus Status: Acute Current Visit: Yes (3) Leg cramps Status: Acute Current Visit: Yes - Allergies/Procedures Done in Hospital Allergies/Adverse Reactions: Allergies No Known Allergies Allergy (Verified 04/21/18 10:00) Procedures: None - Type of Care/Length of Stay Estimated LOS: Convalescent Care Less Than 30 days Type of Care Needed: Skilled Rehab Potential: Good Prognosis: Good - Additional Orders/Day of Discharge H AND P will serve as current which was dated: 04/21/18 Day of Discharge: 04/23/18 - Dietary and Speech Recommendations Dietitian Recommendations/Changes: Rec calorie controlled/ 1600 calorie diet to support wt loss w/ lifestyle changes - Follow Up Care Primary Care Physician: Felix Coffey MD [Primary Care Provider] - 04/22/18 1614 <Electronically signed by Felix Garcia DO> Date Felix Garcia DO CC: Felix Coffey MD Signed BEDSIDE GLUCOSE Collected: 04/22/2018 Status: F Source: ANAIS 12:03 PM [facility] [place] REPOSITORY TYPE CODE TESTS RESULT OUT OF REFERENCE UNITS RANGE LAB L501.080 70-110 mg/dL High BEDSIDE GLU 221 Result Comment: MANAGEMENT OF PATIENT CARE PER NURSING PROTOCOL Performed By: #### L501.080 #### [facility] Point of Care [address] [place], [place] [address] BEDSIDE GLUCOSE Collected: 04/22/2018 Status: F Source: ANAIS 6:10 AM [facility] [place] REPOSITORY TYPE CODE TESTS RESULT OUT OF REFERENCE UNITS RANGE LAB L501.080 70-110 mg/dL High BEDSIDE GLU 255 Result Comment: MANAGEMENT OF PATIENT CARE PER NURSING PROTOCOL Performed By: #### L501.080 #### [facility] Point of Care [address] [place], [place] [address] CBC W/DIFF, AUTOMATED Collected: 04/22/2018 Status: F Source: ANAIS 5:24 AM [facility] [place] [place] REPOSITORY TYPE CODE TESTS RESULT OUT OF RANGE REFERENCE UNITS LAB L100.1000 4.4-11.0 K/mm3 Normal WBC 6.3 LAB L100.1200 4.2-5.4 M/mm3 Normal RBC 4.35 LAB L100.1300 12.0-15.0 g/dl Normal HGB 12.5 LAB L100.1400 37-47 % Normal HCT 37.8 LAB L100.1500 81-99 fL Normal MCV 86.9 LAB L100.1600 27.0-32.0 pg Normal MCH 28.7 LAB L100.1700 32-36 g/gl Normal MCHC 33.1 LAB L100.1810 11.6-14.6 % Normal RDW CV 13.5 LAB L100.1820 35.1-43.9 fl Normal RDW SD 41.3 LAB L100.1900 150-450 K/mm3 Normal PLT 163 LAB L100.2000 6.2-12.0 fl Normal MPV 11.2 LAB L100.2100 47-70 % Normal NEUT% 52.5 LAB L100.2200 19-41 % Normal LY% 39.4 LAB L100.2300 0-10 % Normal MONO% 5.8 LAB L100.2400 0-5 % Normal EO% 1.6 LAB L100.2500 0-1 % Normal BASO% 0.5 LAB L100.2550 0.0-0.9 % Normal IM GRAN % 0.200 Result Comment: IG% - Immature Granulocytes (promyelocytes, myelocytes and metamyelocytes) > 1% indicates that a LEFT SHIFT is Present. LAB L100.2620 2.0-7.7 X10 3/uL Normal Absolute Neut 3.3 LAB L100.2720 0.83-4.51 X10 3/ul Normal Absolute Lymph 2.50 Performed By: #### L100.0100 #### [facility] [address] [address] [place], [place], [address] BASIC METABOLIC Collected: 04/22/2018 Status: F Source: ANAIS PROFILE (BMP) 5:24 AM [facility] [place] [place] REPOSITORY TYPE CODE TESTS RESULT OUT OF RANGE REFERENCE UNITS LAB L501.0100 74-106 mg/dL High GLU 245 Result Comment: Glucose result greater than or equal to 200 mg/dL suggests DIABETES MELLITUS per A.D.A. criteria. Please note revised GLUCOSE reference range effective 2017. LAB L501.1000 7-18 mg/dL High BUN 19 LAB L501.1100 0.55-1.02 mg/dL Normal CREAT,SERUM 0.66 Result Comment: The validity of the calculated GFR AND GFRAA in patients over 70 years has not been determined. Clinical correlation is essential. LAB L501.1110 >60 mL/min Normal EST GFR 93 Result Comment: Non- GFR Calc LAB L501.1115 >60 mL/min Normal EST GFR - AA 112 Result Comment: GFR Calc LAB L501.1255 ml/min Normal Estimated CRCL 39.59 LAB L501.1300 10-20 RATIO High BUN/CRE 28.9 LAB L501.2200 8.5-10 mg/dL Normal .1 CA 8.8 LAB L501.5300 136-14 mmol/L Normal 5 NA 140 LAB L501.5600 3.5-5. mmol/L Normal 1 K 4.1 LAB L501.5900 98-107 mmol/L Normal CL 106 LAB L501.6100 21.0-3 mmol/L Normal 2.0 CO2 27.0 LAB L501.6200 5-15 Normal GAP 7 Performed By: #### L500.2500 #### [facility] [address] [facility] [place], [place], [address] BEDSIDE GLUCOSE Collected: 04/21/2018 Status: F Source: ANAIS 10:35 PM [facility] [place] [place] REPOSITORY TYPE CODE TESTS RESULT OUT OF REFERENCE UNITS RANGE LAB L501.080 70-110 mg/dL High BEDSIDE GLU 414 Result Comment: MANAGEMENT OF PATIENT CARE PER NURSING PROTOCOL Performed By: #### L501.080 #### [facility] Point of Care [address] [facility] [address] [place], [place] [address] BEDSIDE GLUCOSE Collected: 04/21/2018 Status: F Source: INDEPENDENCE 8:39 PM [facility] [place] [place] REPOSITORY TYPE CODE TESTS RESULT OUT OF REFERENCE UNITS RANGE LAB L501.080 70-110 mg/dL High alert BEDSIDE GLU > 500 Result Comment: MANAGEMENT OF PATIENT CARE PER NURSING PROTOCOL Performed By: #### L501.080 #### [facility] Point of Care [address] [place] [address] HISTORY AND PHYSICAL Observed: 04/21/2018 Status: F Source: INDEPENDENCE EXAM 6:45 PM [facility] [place] REPOSITORY [facility] Medical Records Department [address] [place] [address] History and Physical 04/21/18 1442 MR#: [id number] Acct: [id number] Name: ROMAIN MCDERMOTT Rep #: [id number] : 1940 78 From: Angie Gregorio MD PCP: Felix Coffey MD Status: ADM ILEANA Y Location: [place] [address] History of Present Illness Date of Admission: 04/21/18 Chief Complaint: Generalized pain and cramps The patient is a 78 year old F with past medical history of diabetes mellitus and chronic pain. She was admitted through the ED on 04/21/2018 with a complaint of severe cramps and generalized pain. Grams remaining his lower extremities. According to patient, she was diagnosed with DKA year ago and spent about a week in the ICU. After that he started having severe generalized pain and periodic cramps which was admitted in the group home for therapy. She was recently discharged from the group home when see her PCP today. She was having terrible cramps and was unable to get in the car on her own and comes in pain persisted. She therefore decided coming to the ED for evaluation. Bradycardia documentation, she has been reviewed by multiple physicians including neurology, orthopedic surgery for bone or muscular skeletal disorders but no diagnosis has been established. Bradycardia notes, she is to follow-up with physical therapy because therapy was actually making situations worse. Vitals in the ED showed pulse rate of 115 was otherwise unremarkable. CBC was essentially unremarkable and chemistry only showed glucose of 368. She is been admitted to be managed for severe cramps and generalized intractable pain. She is for placement. The ED did try placing her in a group home but the group home would not take her until Saturday at the [facility]. [] Past Medical History Allergies No Known Allergies Allergy (Verified 04/21/18 10:00) Home Medications: Ambulatory Orders Medication Instructions Recorded Acetaminophen [Tylenol Extra 1,000 mg PO PRN PRN 04/21/18 Strength] Surgical History: no surgical history Psychiatric History: No pertinent psych hx NURSE TECHNICIAN History: No pertinent NURSE TECHNICIAN history Lives: With Family Smoking Status: Former smoker - quit 20 years ago Alcohol: None Drugs: None - *Family History Paternal History Items: No pertinent history Maternal History Items: Cancer Review of Systems Constitutional: Reports: Weakness. Denies: Chills, Fever, Malaise, Weight Change, Fatigue Eyes: Denies: Blurred vision HEENT: Denies: Head Aches, Sinus Congestion, Sinus Drainage Cardiovascular: Denies: Chest Pain, Palpitations Respiratory: Denies: Cough, Shortness of Breath, Shortness of breath at rest, Sputum production Gastrointestinal: Denies: Abdominal Pain, Nausea, Vomiting Genitourinary: Denies: Dysuria Musculoskeletal: Reports: Leg Pain, Muscle pain. Denies: Joint Pain, Joint Tenderness, Neck Pain, Shoulder Pain Skin: Denies: Rash, Wounds Neurological: Denies: Numbness, Tingling, Focal weakness Psychiatric: Denies: Anxiety, Depression, Homicidal Ideations, Suicidal Ideations Hematologic/ Lymphatic: Denies: Easy Bruising, Easy Bleeding VTE Information - Inpt Only VTE Present on Admission: No VTE Pharm Prophylaxis ordered?: Yes - Physical Exam General: Alert, Oriented x3, Cooperative, No apparent distress HEENT: Atraumatic, PERRLA, EOMI, Normocephalic Oral: Moist Mucosa Neck: Supple, No JVD, Negative Carotid Bruits Lungs: Clear to auscultation, Normal air movement, No rhonchi, No wheeze, No rales Cardiovascular: Regular rate, Regular Rhythm, Normal S1, Normal S2, No murmurs Abdomen: Bowel Sounds Present, Soft, Non Tender, Non-Distended, No Hepato-splenomegaly Extremities: No clubbing, No cyanosis, No edema, Capillary Refill Less than 3 Seconds Skin: No rashes, No breakdown Musculoskeletal: Tenderness - generalised tenderness of LEs on palpation; internal rotation of right foot. Lymphatic: No Cervical, Supraclavicular, or Inguinal Adenopathy Neurological: Cranial nerves II-XII grossly intact, Neuro grossly intact, - - right foot internally rotated; decreased power with dorsiflexion and plantar flexion of both feet Psych/Mental Status: Normal Affect, Appropriate, Alert and oriented to time, place, person, mood and affect Vital Signs Temp Pulse Resp BP Pulse Ox 97.3 F L 80 18 104/56 L 96 04/21/18 10:00 04/21/18 13:13 04/21/18 13:13 04/21/18 13:13 04/21/18 13:13 Oxygen Delivery Method Room Air Weight: 132 lb Body Mass Index (BMI) 23.3 Laboratory Tests Past 24 Hrs WBC 9.6 RBC 4.87 Hgb 13.9 Hct 41.8 MCV 85.8 MCH 28.5 MCHC 33.3 Assessment/Plan 78-year-old female admitted with a complaint of generalized cramps and intractable pain. 1. Intractable acute on chronic pain of unclear etiology * has severe pain and cramps in LEs, which is chronic, but worsened today * had been working with PT previously, but says she felt limited because she was being given cues as to when to stop walking, even though she felt she could walk some more * admit to Med surg * PT/OT consult * tylenol for pain * for placement * will check CPK and TSH * 2. Diabetes mellitus: Glucose was 368 on admission. On insulin Levemir 25 subcut daily and insulin sliding scale. Accu-Cheks AC at bedtime. 3. Hypothyroidism: On levothyroxine 75 mg daily. Will check TSH DVT prophylaxis: Heparin Code status: Patient counseled extensively about different types of CODE STATUS including full code, DNR CCA and DNR CCA. Patient elects to be full code. Total [id number] time 16 minutes. Disposition: For placement in SNF Code Visit OBSV E AND M: 48496 Initial observation care L3 Procedures: 33472 Advncd Care Plan 30 Min 04/21/18 0675 <Electronically signed by Angie Gregorio MD> Date Angie Gregorio MD Cosigner Signature: Date (if applicable) CC: Felix Coffey MD; Angie Gregorio MD Signed BEDSIDE GLUCOSE Collected: 04/21/2018 Status: F Source: INDEPENDENCE 4:25 PM [facility] [place] [place] REPOSITORY TYPE CODE TESTS RESULT OUT OF REFERENCE UNITS RANGE LAB L501.080 70-110 mg/dL High BEDSIDE GLU 235 Result Comment: Insulin Given MANAGEMENT OF PATIENT CARE PER NURSING PROTOCOL Performed By: #### L501.080 #### [facility] Point of Care [address] [facility] [place] [address] EMERGENCY DEPARTMENT Observed: 04/21/2018 Status: F Source: INDEPENDENCE SUMMARY 4:21 PM [facility] [place] [place] REPOSITORY [facility] Medical Records Department [address] [facility] [address] Emergency Department Summary 04/21/18 1039 MR#: [id number] Acct: [id number] Name: ROMAIN MCDERMOTT Rep #: [id number] : 1940 78 From: Christiano Mcbride MD PCP: Felix Coffey MD Status: ADM ILEANA - ER Visit Summary Date of Service: 04/21/18 Chief Complaint: [] Spasm to the right side of the body for years cannot function at home History of Present Illness: The patient is a 78 F [] long history of unspecified spasm to her body primarily the right side the hips the lower extremity the right lower ankle is contorted internally flexed rotated long-standing, she has been seen extensively by multiple physicians per the family including neurologist orthopedics other physicians and providers she has been evaluated for bony disorders or musculoskeletal disorders MS etc. no clear diagnosis has been established, she was under the care of physical therapy but that had to be stopped because a physical therapy actually made things worse. Today she followed up with her primary care outpatient providers while in the office she had persistent intensification of the spasm to the point that they could not get her into the car they could not get her home the daughter cannot take care of her paramedics were called she was brought to the hospital Chronic relapsing condition there is been nothing different or new or changed, she has had no fever no cough no trauma, she occasionally will use Flexeril for her complaints she does have diabetes and some dependent should her blood sugars been under 300 she has not taken any medicines today Physical Examination: [] 130/81, General, no distress resting comfortably HEENT is generally unremarkable The neck is supple no adenopathy Cardiovascular, regular rate and rhythm Lungs, clear bilateral Abdomen, soft nontender Extremities, no clubbing cyanosis or edema, she complains of spasm from her hip down her right leg diffusely, her right lower extremity is chronically internally flexed at the ankle, there is no pain no warmth no swelling no signs of trauma per the family her back exam is unremarkable without lesions or pain she bases complains of a spasm that starts in the upper right leg goes down the thigh down the knee down the tib-fib into the ankle that is a recurrent process she has had and she cannot find any areas of relief, this is a standard stable condition for her except for the persistent nature of the pain in the spasm Neurologic, awake alert answering questions Long conversation with the patient her daughter this is an chronic relapsing condition given all of the above we will provide IV fluids screening labs pain management some muscle relaxer controlled with Ativan, the daughter states she can no longer manage her at home they have been trying to work with outpatient providers to get her into a group home the daughter would like that expedited through the emergency department I have explained to her we will have high school social science teacher see her and see what can be done Test Results: [] Emergency Department Course and Treatment: [] She also services has seen the patient they are unable to arrange for direct group home placement from the emergency department the daughter states she cannot manage and take care of her at home any longer because of all the above I spoke with the hospitalist to see her further management admission Treatment Plan: [] Disposition: [] admit stable Impression: [] Intractable right lower extremity pain and spasm, failed outpatient management This note was generated with [employer] dictation software. It may contain incorrect words, spelling, and punctuation that were not noted in review of the chart prior to signing ED Disposition - Plan for ED Patient: Chief Complaint: Other, Pain/Inj Referrals: Felix Coffey MD [Primary Care Provider] - What to do if you have Problems For any increased pain, shortness of breath, bleeding, nausea or vomiting, chest pain, or any unexpected problems, contact your Primary Care Provider. Call [facility] ([phone]) or report to the closest Emergency Room. Call 911 if necessary. 04/21/18 1621 <Electronically signed by Christiano Mcbride MD> Date Christiano Mcbride MD Cosigner Signature (If Indicated): Date CC: Felix Coffey MD CBC W/DIFF, AUTOMATED Collected: 04/21/2018 Status: F Source: ANAIS 10:57 AM [facility] [place] [place] REPOSITORY TYPE CODE TESTS RESULT OUT OF RANGE REFERENCE UNITS LAB L100.1000 4.4-11.0 K/mm3 Normal WBC 9.6 LAB L100.1200 4.2-5.4 M/mm3 Normal RBC 4.87 LAB L100.1300 12.0-15.0 g/dl Normal HGB 13.9 LAB L100.1400 37-47 % Normal HCT 41.8 LAB L100.1500 81-99 fL Normal MCV 85.8 LAB L100.1600 27.0-32.0 pg Normal MCH 28.5 LAB L100.1700 32-36 g/gl Normal MCHC 33.3 LAB L100.1810 11.6-14.6 % Normal RDW CV 13.4 LAB L100.1820 35.1-43.9 fl Normal RDW SD 41.3 LAB L100.1900 150-450 K/mm3 Normal PLT 164 LAB L100.2000 6.2-12.0 fl Normal MPV 10.9 LAB L100.2100 47-70 % High NEUT% 79.3 LAB L100.2200 19-41 % Low LY% 16.3 LAB L100.2300 0-10 % Normal MONO% 3.6 LAB L100.2400 0-5 % Normal EO% 0.3 LAB L100.2500 0-1 % Normal BASO% 0.1 LAB L100.2550 0.0-0.9 % Normal IM GRAN % 0.400 Result Comment: IG% - Immature Granulocytes (promyelocytes, myelocytes and metamyelocytes) > 1% indicates that a LEFT SHIFT is Present. LAB L100.2620 2.0-7.7 X10 3/uL Normal Absolute Neut 7.6 LAB L100.2720 0.83-4.51 X10 3/ul Normal Absolute Lymph 1.56 Performed By: #### L100.0100 #### [facility] [address] [facility] [place], [place], [address] BASIC METABOLIC Collected: 04/21/2018 Status: F Source: INDEPENDENCE PROFILE (BMP) 10:57 AM [facility] [place] [place] REPOSITORY TYPE CODE TESTS RESULT OUT OF RANGE REFERENCE UNITS LAB L501.0100 74-106 mg/dL High GLU 368 Result Comment: Glucose result greater than or equal to 200 mg/dL suggests DIABETES MELLITUS per A.D.A. criteria. Please note revised GLUCOSE reference range effective 2017. LAB L501.1000 7-18 mg/dL High BUN 22 LAB L501.1100 0.55-1.02 mg/dL Normal CREAT,SERUM 0.79 Result Comment: The validity of the calculated GFR AND GFRAA in patients over 70 years has not been determined. Clinical correlation is essential. LAB L501.1110 >60 mL/min Normal EST GFR 75 Result Comment: Non- GFR Calc LAB L501.1115 >60 mL/min Normal EST GFR - AA 91 Result Comment: GFR Calc LAB L501.1255 ml/min Normal Estimated CRCL 39.59 LAB L501.1300 10-20 RATIO High BUN/CRE 27.9 LAB L501.2200 8.5-10 mg/dL Normal .1 CA 9.0 LAB L501.5300 136-14 mmol/L Normal 5 NA 138 LAB L501.5600 3.5-5. mmol/L Normal 1 K 4.6 LAB L501.5900 98-107 mmol/L Normal CL 102 LAB L501.6100 21.0-3 mmol/L Normal 2.0 CO2 25.0 LAB L501.6200 5-15 Normal GAP 11 Performed By: #### L500.2500 #### [facility] [address], [address] CPK TOTAL, CREATINE Collected: 04/21/2018 Status: F Source: ANAIS KINASE 10:57 AM [facility] [place] [place] REPOSITORY TYPE CODE TESTS RESULT OUT OF RANGE REFERENCE UNITS LAB L501.3620 26-192 U/L Normal CPK TOTAL 40 Performed By: #### L501.3620, L501.9520 #### [place] [facility] [address] [place], [address] THYROID STIM HORMONE Collected: 04/21/2018 Status: F Source: ANAIS (TSH) 10:57 AM [facility] [place] [place] REPOSITORY TYPE CODE TESTS RESULT OUT OF RANGE REFERENCE UNITS LAB L501.9520 0.358-3.74 uIU/mL Low TSH 0.24 Performed By: #### L501.3620, L501.9520 #### [place] [facility] [address] [place], [address] HEMOGLOBIN A1C Collected: 04/21/2018 Status: F Source: ANAIS 10:57 AM [facility] [place] [place] REPOSITORY TYPE CODE TESTS RESULT OUT OF RANGE REFERENCE UNITS LAB L501.9985 4.2-6.3 % High HGB A1C 6.8 Performed By: #### L501.9985 #### [facility] [address] [place], [address] PROGRESS Observed: 04/21/2018 Status: COMPLETED Source: [place] 9:58 AM [facility] [place] REPOSITORY HNO ID: [id number] Author: Zack Tejada (Sw) Service: (none) Author Type: [employer] Type: Progress Notes Filed: 04/21/2018 10:01 AM Note Text: Lilia met with patient and daughter when in office visit. Daughter reports that [employer] staff came out to home to assess patient. [employer] staff completed Medicaid application to change Medicaid from [place] to [place]. Daughter reports that [employer] worker did not complete Passport application at that time. Daughter reports it is getting harder to take care of patient at home due to mobility issues. Dr. Coffey is sending patient to ED at [facility] to be assessed for rehab services at [facility]. Family looking at [facility]. Lilia called and left message for LILIA Dupree [facility] ED to request that she meet with patient and daughter to assess for rehab needs. PROGRESS Observed: 04/21/2018 Status: COMPLETED Source: [place] 9:18 AM [facility] [place] REPOSITORY O ID: [id number] Author: Felix Coffey Service: (none) Author Type: Physician Type: Progress Notes Filed: 04/21/2018 12:00 PM Note Text: Chief Complaint Patient presents with: Establish Care HPI Romain Mcdermott is a 78 year old female who presents here today to Establish Care. Pt presents today with multiple concerns, with her daughter Nyla. Coming into the office pt is in a wheelchair, having hip spasms and all over body spasm, breathing heavily and crying out in pain. Pt lives with her daughter who has cared for her FT for the last 3 months, since being d/c at [facility] (discharged on 01/07/18) but patient needs FT care. Daughter has been looking into things, talking to SW without really getting anywhere. She has visited one of the local OR and feels this would benefit her. Nyla states that patient does do activities at home when she feels better. Spasms - Pt has a curvature in the right foot and was receiving PT but this has been stopped due to insurance issues. She was getting PT daily with Flexeril 10 mg TID before PT which did help relax her and calm her down. Pt when anxiety is induced becomes very stiff and feels like she is falling. Daughter help her and stands in front of her to help prevent her sliding out of chair/wheelchair. Daughter notes that she did slide out of her chair at one time. Anxiety - Extreme anxiety but refuses to take medication or SSRI's. Pt feels that she has no control of her life. Daughter has concern that this could be a neurological issue and had imaging completed with her past records. DM - Insulin dependant, sweaty on exam due to anxiety attack. Requesting a drink and feeling sick during exam. Currently taking Novolog 1 units per 15 grams of carbs, per meal and Levemir 25 units every am. Glucose checked in office on pt's glucometer. Fasting sugar of 303. Pt previously lived in [place], but moved to live with her daughter. Current insurance Traditional Medicare [facility] and Medicaid from [place] that is being switched over to [place]. Past medical history, appointments, medications, allergies reviewed. Previous Medical History PAST MEDICAL HISTORY Diagnosis Date - DM type 1 (diabetes mellitus, type 1) (HCC) - Hypothyroidism Previous Surgical History PAST SURGICAL HISTORY Procedure Laterality Date - CYSTOSCOPY Right 06/24/2015 Dr. True Cantu - OOPHORECTOMY, PART/TOTAL UNILAT/BILAT - PAST SURGICAL HISTORY OF Right 07/28/2015 cystoscopy, ureteroscopy; retrograde pyelogram; ureteral stent insertion-Dr. True Cantu - PROC RM-BRONCHOSCOPY 10/22/2016 Dr. Josselyn Alexander Family History FAMILY HISTORY Problem Relation Age of Onset - Cancer Mother - No Known Problems Father Patient Allergies ALLERGIES No Known Allergies Current Medications Current Outpatient Prescriptions on File Prior to Visit: COMPOUNDED PRESCRIPTION 1 Wheelchair with removable foot rests.ICD 10: R53.1, M79.671, M21.6X1 blood sugar diagnostic (RELION PRIME TEST STRIPS) test strip Check blood sugar 4 times daily as intructed. Dx: E11.9. Insulin: yes Blood-Glucose Meter (RELION PRIME METER) misc 1 Each four times daily. Dx: E11.9. Insulin: yes insulin aspart U-100 (NOVOLOG FLEXPEN U-100 INSULIN) 100 unit/mL inpn 1 unit for 15 g of carbs with meals. insulin detemir U-100 (LEVEMIR FLEXTOUCH U-100 INSULN) 100 unit/mL (3 mL) inpn injection Inject 25 Units subcutaneously every morning. levothyroxine (SYNTHROID) 75 mcg tablet Take 1 tablet by mouth once daily. Take on empty stomach. For Thyroid aspirin 81 mg chewable tablet Take 1 tablet by mouth once daily. No current facility-administered medications on file prior to visit. Social History Social History Marital status: Single Spouse name: Years of education: Number of children: Social History Main Topics Smoking status: Former Smoker Packs/day: 0.00 Years: 0.00 Smokeless tobacco: Never Used EXAM: There were no vitals taken for this visit. - No vitals due to pt not being able to stand. Vitals were not taken due to Squad being called. General Appearance: Acute distress; unable to relax; body stiff, unable to sit, acuet anxiety over falling Lungs: lungs clear to auscultation. No wheezing, rhonchi, rales. Heart: RRR without murmur, gallop, or rubs. No ectopy. Health Maintenance List DILATED RETINAL EXAM due on 1952 DIABETIC FOOT EXAM due on 1952 ANNUAL PCP TEAM CHRONIC DISEASE VISIT due on 1960 DTAP,TDAP,TD(1 - Tdap) due on 1961 COLORECTAL CANCER SCREENING,SEE MODIFIER due on 1992 BONE DENSITY due on 2007 PAP EVERY 3 YEARS (65-80 YEARS OLD) due on 2007 PNEUMOVAX AGE 65 AND OVER WITH 5YR LOOKBACK(1) due on 2007 HBA1C due on 07/03/2017 LDL CHOLESTEROL due on 03/08/2018 ADULT PREVNAR-13 Completed INFLUENZA Completed Data reviewed Multiple documents from previous Rehab ASSESSMENT/PLAN: 1. Generalized anxiety disorder - ICD9: 300.02, ICD10: F41.1 (primary diagnosis) Unable to get pt to relax in the office; she is obviously not able to be cared for at home in this condition, so liv was contacted to transport to ER for further evaluation and likely Rehab referral 2. Diabetes mellitus type 1, controlled, without complications (HCC) - ICD9: 250.01, ICD10: E10.9 Follow up prn 25 minutes spent with patient and half of that time involved counseling or coordination of care Felix Coffey MD The documentation for this note was completed by Emilia Meehan Ma acting as scribe for Felix Coffey MD. April 21, 2018 9:19 AM. CNOV Observed: 04/21/2018 Status: COMPLETED Source: [place] 9:00 AM [facility] Office Visit (FAMPWS) ROMAIN MCDERMOTT ([id number]) 1940 F Date Time Provider Department 04/21/18 9:00 AM FELIX COFFEY During your visit today, we recorded the following information about you: Felix Coffey MD 04/21/2018 12:00 PM Signed Chief Complaint Patient presents with: Establish Care HPI Romain Mcdermott is a 78 year old female who presents here today to Establish Care. Pt presents today with multiple concerns, with her daughter Nyla. Coming into the office pt is in a wheelchair, having hip spasms and all over body spasm, breathing heavily and crying out in pain. Pt lives with her daughter who has cared for her FT for the last 3 months, since being d/c at [facility] (discharged on 01/07/18) but patient needs FT care. Daughter has been looking into things, talking to SW without really getting anywhere. She has visited one of the local OR and feels this would benefit her. Nyla states that patient does do activities at home when she feels better. Spasms - Pt has a curvature in the right foot and was receiving PT but this has been stopped due to insurance issues. She was getting PT daily with Flexeril 10 mg TID before PT which did help relax her and calm her down. Pt when anxiety is induced becomes very stiff and feels like she is falling. Daughter help her and stands in front of her to help prevent her sliding out of chair/wheelchair. Daughter notes that she did slide out of her chair at one time. Anxiety - Extreme anxiety but refuses to take medication or SSRI's. Pt feels that she has no control of her life. Daughter has concern that this could be a neurological issue and had imaging completed with her past records. DM - Insulin dependant, sweaty on exam due to anxiety attack. Requesting a drink and feeling sick during exam. Currently taking Novolog 1 units per 15 grams of carbs, per meal and Levemir 25 units every am. Glucose checked in office on pt's glucometer. Fasting sugar of 303. Pt previously lived in [place], but moved to live with her daughter. Current insurance Traditional Medicare [facility] and Medicaid from [place] that is being switched over to [place]. Past medical history, appointments, medications, allergies reviewed. Previous Medical History PAST MEDICAL HISTORY Diagnosis Date - DM type 1 (diabetes mellitus, type 1) (HCC) - Hypothyroidism Previous Surgical History PAST SURGICAL HISTORY Procedure Laterality Date - CYSTOSCOPY Right 06/24/2015 Dr. True Cantu - OOPHORECTOMY, PART/TOTAL UNILAT/BILAT - PAST SURGICAL HISTORY OF Right 07/28/2015 cystoscopy, ureteroscopy; retrograde pyelogram; ureteral stent insertion-Dr. True Cantu - PROC RM-BRONCHOSCOPY 10/22/2016 Dr. Josselyn Alexander Family History FAMILY HISTORY Problem Relation Age of Onset - Cancer Mother - No Known Problems Father Patient Allergies ALLERGIES No Known Allergies Current Medications Current Outpatient Prescriptions on File Prior to Visit: COMPOUNDED PRESCRIPTION 1 Wheelchair with removable foot rests.ICD 10: R53.1, M79.671, M21.6X1 blood sugar diagnostic (RELION PRIME TEST STRIPS) test strip Check blood sugar 4 times daily as intructed. Dx: E11.9. Insulin: yes Blood-Glucose Meter (RELION PRIME METER) misc 1 Each four times daily. Dx: E11.9. Insulin: yes insulin aspart U-100 (NOVOLOG FLEXPEN U-100 INSULIN) 100 unit/mL inpn 1 unit for 15 g of carbs with meals. insulin detemir U-100 (LEVEMIR FLEXTOUCH U-100 INSULN) 100 unit/mL (3 mL) inpn injection Inject 25 Units subcutaneously every morning. levothyroxine (SYNTHROID) 75 mcg tablet Take 1 tablet by mouth once daily. Take on empty stomach. For Thyroid aspirin 81 mg chewable tablet Take 1 tablet by mouth once daily. No current facility-administered medications on file prior to visit. Social History Social History Marital status: Single Spouse name: Years of education: Number of children: Social History Main Topics Smoking status: Former Smoker Packs/day: 0.00 Years: 0.00 Smokeless tobacco: Never Used EXAM: There were no vitals taken for this visit. - No vitals due to pt not being able to stand. Vitals were not taken due to Squad being called. General Appearance: Acute distress; unable to relax; body stiff, unable to sit, acuet anxiety over falling Lungs: lungs clear to auscultation. No wheezing, rhonchi, rales. Heart: RRR without murmur, gallop, or rubs. No ectopy. Health Maintenance List DILATED RETINAL EXAM due on 1952 DIABETIC FOOT EXAM due on 1952 ANNUAL PCP TEAM CHRONIC DISEASE VISIT due on 1960 DTAP,TDAP,TD(1 - Tdap) due on 1961 COLORECTAL CANCER SCREENING,SEE MODIFIER due on 1992 BONE DENSITY due on 2007 PAP EVERY 3 YEARS (65-80 YEARS OLD) due on 2007 PNEUMOVAX AGE 65 AND OVER WITH 5YR LOOKBACK(1) due on 2007 HBA1C due on 07/03/2017 LDL CHOLESTEROL due on 03/08/2018 ADULT PREVNAR-13 Completed INFLUENZA Completed Data reviewed Multiple documents from previous Rehab ASSESSMENT/PLAN: 1. Generalized anxiety disorder - ICD9: 300.02, ICD10: F41.1 (primary diagnosis) Unable to get pt to relax in the office; she is obviously not able to be cared for at home in this condition, so liv was contacted to transport to ER for further evaluation and likely Rehab referral 2. Diabetes mellitus type 1, controlled, without complications (HCC) - ICD9: 250.01, ICD10: E10.9 Follow up prn 25 minutes spent with patient and half of that time involved counseling or coordination of care Felix Coffey MD The documentation for this note was completed by Emilia Meehan Ma acting as scribe for Felix Coffey MD. April 21, 2018 9:19 AM. Referring Provider: SELF [200] Allergies As of Date: 04/21/2018 (No Known Allergies) Date Reviewed: 04/21/2018 Reviewed by: Emilia Meehan Ma - Fully Assessed Reason for Visit: Establish Care [42] Primary Visit Diagnosis:Generalized anxiety disorder [F41.1] Other Visit Diagnosis:Diabetes mellitus type 1, controlled, without complications (HCC) [E10.9] Order(s):HBA1C (OUTSIDE) [8410066] Order #: [id number] LDL CHOLESTEROL DIR [SQLDLDCT] Order #: [id number] Prescriptions as of 04/21/2018 Sig: COMPOUNDED PRESCRIPTION 1 Wheelchair with removable f* BLOOD SUGAR DIAGNOSTIC STRIPS Check blood sugar 4 times nenita* BLOOD-GLUCOSE METER 1 Each four times daily. Dx: * INSULIN ASPART U-100 100 UNI* 1 unit for 15 g of carbs with* INSULIN DETEMIR (U-100) 100 U* Inject 25 Units subcutaneousl* LEVOTHYROXINE 75 MCG TABLET Take 1 tablet by mouth once d* ASPIRIN 81 MG CHEWABLE TABLET Take 1 tablet by mouth once d* Problem List As Of Date 04/21/2018 Noted Resolved Hypothyroidism, acquired [E03.9] INVALID FOR* Hypothyroidism [E03.9] Pain in right foot [M79.671] INVALID FOR* Pain in left hip [M25.552] INVALID FOR* Pain in right hip [M25.551] INVALID FOR* Hip contracture, right [M24.551] INVALID FOR* Hip contracture, left [M24.552] INVALID FOR* Generalized anxiety disorder [F41.1] INVALID FOR* Diabetes mellitus type 1, controlled, without c*INVALID FOR* Encounter Status:Closed by FELIX COFFEY MD on 04/21/18 CNSW Observed: 04/21/2018 Status: COMPLETED Source: [place] 12:00 AM [facility] Social Work (ALBIN) ROMAIN MCDERMOTT ([id number]) 1940 F Date Time Provider Department 04/21/18 ZACK TEJADA) ALBIN During your visit today, we recorded the following information about you: JACINTA Jules-SPLICER MACHINE OPERATOR 04/21/2018 10:01 AM Signed Lilia met with patient and daughter when in office visit. Daughter reports [facility] came out to home to assess patient. [employer] staff completed Medicaid application to change Medicaid from [place] to [place]. Daughter reports that [employer] worker did not complete Pass[employer] application at that time. Daughter reports it is getting harder to take care of patient at home due to mobility issues. Dr. Coffey is sending patient to ED at [facility] to be assessed for rehab services at [facility]. Family looking at [facility]. Lilia called and left message for LILIA Dupree [facility] ED to request that she meet with patient and daughter to assess for rehab needs. Allergies As of Date: 04/21/2018 (No Known Allergies) Date Reviewed: 04/21/2018 Reviewed by: Emilia Meehan Ma - Fully Assessed Prescriptions as of 04/21/2018 Sig: COMPOUNDED PRESCRIPTION 1 Wheelchair with removable f* BLOOD SUGAR DIAGNOSTIC STRIPS Check blood sugar 4 times nenita* BLOOD-GLUCOSE METER 1 Each four times daily. Dx: * INSULIN ASPART U-100 100 UNI* 1 unit for 15 g of carbs with* INSULIN DETEMIR (U-100) 100 U* Inject 25 Units subcutaneousl* LEVOTHYROXINE 75 MCG TABLET Take 1 tablet by mouth once d* ASPIRIN 81 MG CHEWABLE TABLET Take 1 tablet by mouth once d* Problem List As Of Date 04/21/2018 Noted Resolved Hypothyroidism, acquired [E03.9] INVALID FOR* Hypothyroidism [E03.9] Pain in right foot [M79.671] INVALID FOR* Pain in left hip [M25.552] INVALID FOR* Pain in right hip [M25.551] INVALID FOR* Hip contracture, right [M24.551] INVALID FOR* Hip contracture, left [M24.552] INVALID FOR* Generalized anxiety disorder [F41.1] INVALID FOR* Diabetes mellitus type 1, controlled, without c*INVALID FOR* Encounter Status:Closed by ZACK CARMEN on 04/21/18 PROGRESS Observed: 03/31/2018 Status: COMPLETED Source: [place] 3:56 PM [facility] HNO ID: [id number] Author: Zack Tejada (Sw) Service: (none) Author Type: [employer] Type: Progress Notes Filed: 03/31/2018 4:05 PM Note Text: Lilia met with patient and daughter Courtney to discuss social service options. Daughter reports that she has not heard anything from [facility] or [facility]. Lilia gave patient daughter number of [facility] and [place] [employer] to see about transitioning patient information from [place] to [place]. Daughter discussed looking at options for rehab facilities and will discuss with Dr. Coffey at office visit. Lilia will follow up with patient and daughter at visit with Dr. Coffey to see if [employer] and [facility] have been out to see patient and see what services and in home support she could qualify for. PROGRESS Observed: 03/31/2018 Status: COMPLETED Source: [place] 2:38 PM [facility] HNO ID: [id number] Author: Madisno Longoria Service: (none) Author Type: Physical Therapist Type: Progress Notes Filed: 03/31/2018 3:27 PM Note Text: Episode Visit Count: 18 Therapist That Will Oversee The Plan Of Care: Madison Longoria PT Start of Care Date: 01/13/18 Onset Date: 01/17/17 Plan of Care Certification Date: 01/13/18 Patient Identified by Name and Date of : Yes REHABILITATION AND SPORTS THERAPY PHYSICAL THERAPY TREATMENT NOTE ASSESSMENT: Romain Mcdermott demonstrated difficulty with transfer back to w/c at end of treatment requiring assist of 2. Patient continues to have high tone right foot and intermittent high tone B lower extremity throughout treatment. The patient will continue to benefit from continued skilled physical therapy for stretching and upright seated postural activities. PLAN FOR NEXT VISIT: Continue with transfers , seated upright activites and passive stretching SUBJECTIVE: Patient reports soreness through B hips and thighs and feels it is from last therapy. She reports feeling okay during the therapy and soreness increased after therapy. Patient's daughter reports she stretched her mom earlier today and if Romain breathes proper she is able to relax more. Patient's daughter feels her mom is doing worse overall as she has diffculty staying seated in the chair as she feels like she is falling out. Pain Score: 6/10 Pain Location: Hip - Right;Hip - Left;Thigh - Right;Thigh - Left Description: Sore Frequency: Continuous Post Treatment Pain Score: (decrease pain at rest and pain unchanged with weight bearing) OBJECTIVE MEASURES WITH LEVEL OF FUNCTION: Patient required max assist of 1 with transfer w/c to mat and mod-max assist of 2 to transfer from mat back to w/c. TREATMENT: Therapeutic Exercise: 2: AROM DF/PF 2x10 B 3: AROM right evr 2x10 with tactile and verbal cues for form . 4: PROM for DF/PF and Inver/Eversion 2x10 on R 5: AROM left inv/evr 2x10. 6: Supine hip ABD B 2x10 with AAROM. 7: Supine B SAQ 2x10. 8: Supine hamstring stretching gentle working into passive stretch B per patient tolerance. 10: Supine PROM hip IR/ER 2x10, B 12: Seated with patient assisting to come to near upright position at start of therapy. Attempted this at end of therapy and patient not able to do this as she was unable to relax through her hips to come to this position. 14: AAROM for lumbar rotation 1x10 reps 15: B PROM for hip flexion, hip ER, knee flexion, and passive flexion of right great toe.. 16: Patient required assist of 2 to transfer mat to w/c at end of therapy. She was max assist of 1 w/c to mat at start of therapy. Skilled Intervention: Patient was educated in proper exercise technique and purpose for exercises. Skilled judgment was provided in selection of appropriate interventions. Correct performance of therapeutic exercises was facilitated with verbal and tactile cuing. Billing: [facility]: Therapeutic Exercise ([id number]): 1:1 time: 49 minutes (3 units: 38-52 mins) Total time: 49 minutes WILBERT Moscoso PT CNTHERAPY Observed: 03/31/2018 Status: COMPLETED Source: [place] 12:30 PM [facility] RE[facility] OT/PT/Speech Visit (PTWS) ROMAIN MCDERMOTT ([id number]) 1940 F Date Time Provider Department 03/31/18 12:30 PM SAMMIE SALGADO (GISELLE) PTWS Date Time Provider Department Center 03/31/2018 12:30 PM [id number], NANCY (RESTAURANT HOURLY TEAM MEMBER) PTWS [facility] Reason for Visit: Physical Therapy [503] Primary Visit Diagnosis:Pain in right foot [M79.671] Other Visit Diagnoses:Generalized anxiety disorder [F41.1] Hip contracture, right [M24.551] Hip contracture, left [M24.552] Allergies As of Date: 03/31/2018 (No Known Allergies) Date Reviewed: 03/07/2018 Reviewed by: Prerna Gallegos RN - Fully Assessed Prescriptions as of 03/31/2018 Sig: CYCLOBENZAPRINE 10 MG TABLET Take 1 tablet by mouth once d* COMPOUNDED PRESCRIPTION 1 Wheelchair with removable f* BLOOD SUGAR DIAGNOSTIC STRIPS Check blood sugar 4 times nenita* BLOOD-GLUCOSE METER 1 Each four times daily. Dx: * INSULIN ASPART U-100 100 UNI* 1 unit for 15 g of carbs with* INSULIN DETEMIR (U-100) 100 U* Inject 25 Units subcutaneousl* LEVOTHYROXINE 75 MCG TABLET Take 1 tablet by mouth once d* ASPIRIN 81 MG CHEWABLE TABLET Take 1 tablet by mouth once d* Progress Notes: Madison Longoria PT 03/31/2018 3:27 PM Signed Episode Visit Count: 18 Therapist That Will Oversee The Plan Of Care: Madison Longoria PT Start of Care Date: 01/13/18 Onset Date: 01/17/17 Plan of Care Certification Date: 01/13/18 Patient Identified by Name and Date of : Yes REHABILITATION AND SPORTS THERAPY PHYSICAL THERAPY TREATMENT NOTE ASSESSMENT: Romain Mcdermott demonstrated difficulty with transfer back to w/c at end of treatment requiring assist of 2. Patient continues to have high tone right foot and intermittent high tone B lower extremity throughout treatment. The patient will continue to benefit from continued skilled physical therapy for stretching and upright seated postural activities. PLAN FOR NEXT VISIT: Continue with transfers , seated upright activites and passive stretching SUBJECTIVE: Patient reports soreness through B hips and thighs and feels it is from last therapy. She reports feeling okay during the therapy and soreness increased after therapy. Patient's daughter reports she stretched her mom earlier today and if Romain breathes proper she is able to relax more. Patient's daughter feels her mom is doing worse overall as she has diffculty staying seated in the chair as she feels like she is falling out. Pain Score: 6/10 Pain Location: Hip - Right;Hip - Left;Thigh - Right;Thigh - Left Description: Sore Frequency: Continuous Post Treatment Pain Score: (decrease pain at rest and pain unchanged with weight bearing) OBJECTIVE MEASURES WITH LEVEL OF FUNCTION: Patient required max assist of 1 with transfer w/c to mat and mod-max assist of 2 to transfer from mat back to w/c. TREATMENT: Therapeutic Exercise: 2: AROM DF/PF 2x10 B 3: AROM right evr 2x10 with tactile and verbal cues for form . 4: PROM for DF/PF and Inver/Eversion 2x10 on R 5: AROM left inv/evr 2x10. 6: Supine hip ABD B 2x10 with AAROM. 7: Supine B SAQ 2x10. 8: Supine hamstring stretching gentle working into passive stretch B per patient tolerance. 10: Supine PROM hip IR/ER 2x10, B 12: Seated with patient assisting to come to near upright position at start of therapy. Attempted this at end of therapy and patient not able to do this as she was unable to relax through her hips to come to this position. 14: AAROM for lumbar rotation 1x10 reps 15: B PROM for hip flexion, hip ER, knee flexion, and passive flexion of right great toe.. 16: Patient required assist of 2 to transfer mat to w/c at end of therapy. She was max assist of 1 w/c to mat at start of therapy. Skilled Intervention: Patient was educated in proper exercise technique and purpose for exercises. Skilled judgment was provided in selection of appropriate interventions. Correct performance of therapeutic exercises was facilitated with verbal and tactile cuing. Billing: [facility]: Therapeutic Exercise ([id number]): 1:1 time: 49 minutes (3 units: 38-52 mins) Total time: 49 minutes Sammie Salgado PT-Marylou Longoria PT Previous Version Follow-up and Disposition History Recorded CNSW Observed: 03/31/2018 Status: COMPLETED Source: [place] 12:00 AM [facility] Social Work (ALBIN) ROMAIN MCDERMOTT ([id number]) 1940 F Date Time Provider Department 03/31/18 ZACK TEJADA (LILIA) ALBIN During your visit today, we recorded the following information about you: JACINTA Jules-WENDI 03/31/2018 4:05 PM Signed Lilia met with patient and daughter Courtney to discuss social service options. Daughter reports that she has not heard anything from [facility] [employer] or [facility]. Lilia gave patient daughter number of [employer] and [place] [employer] to see about transitioning patient information from [place] to [place]. Daughter discussed looking at options for rehab facilities and will discuss with Dr. Coffey at office visit. Lilia will follow up with patient and daughter at visit with Dr. Coffey to see if [facility] [employer] and [facility] have been out to see patient and see what services and in home support she could qualify for. Allergies As of Date: 03/31/2018 (No Known Allergies) Date Reviewed: 03/07/2018 Reviewed by: Prerna Gallegos RN - Fully Assessed Prescriptions as of 03/31/2018 Sig: CYCLOBENZAPRINE 10 MG TABLET Take 1 tablet by mouth once d* COMPOUNDED PRESCRIPTION 1 Wheelchair with removable f* BLOOD SUGAR DIAGNOSTIC STRIPS Check blood sugar 4 times nenita* BLOOD-GLUCOSE METER 1 Each four times daily. Dx: * INSULIN ASPART U-100 100 UNI* 1 unit for 15 g of carbs with* INSULIN DETEMIR (U-100) 100 U* Inject 25 Units subcutaneousl* LEVOTHYROXINE 75 MCG TABLET Take 1 tablet by mouth once d* ASPIRIN 81 MG CHEWABLE TABLET Take 1 tablet by mouth once d* Problem List As Of Date 03/31/2018 Noted Resolved Hypothyroidism, acquired [E03.9] INVALID FOR* Hypothyroidism [E03.9] Pain in right foot [M79.671] INVALID FOR* Pain in left hip [M25.552] INVALID FOR* Pain in right hip [M25.551] INVALID FOR* Hip contracture, right [M24.551] INVALID FOR* Hip contracture, left [M24.552] INVALID FOR* Generalized anxiety disorder [F41.1] INVALID FOR* Diabetes mellitus type 1, controlled, without c*INVALID FOR* Encounter Status:Closed by ZACK CARMEN on 03/31/18 PROGRESS Observed: 03/26/2018 Status: COMPLETED Source: [place] 4:16 PM [facility] RE[facility] O ID: [id number] Author: Kvng (Pt) Golias Service: (none) Author Type: Physical Therapist Type: Progress Notes Filed: 03/26/2018 4:43 PM Note Text: Episode Visit Count: 17 Therapist That Will Oversee The Plan Of Care: Madison Longoria PT Start of Care Date: 01/13/18 Onset Date: 01/17/17 Plan of Care Certification Date: 01/13/18 Patient Identified by Name and Date of : Yes REHABILITATION AND SPORTS THERAPY PHYSICAL THERAPY TREATMENT NOTE ASSESSMENT: Romain Mcdermott demonstrated improvements in sitting in w/c at start of treatment without the fear of falling out of chair. Patient's tone in right foot remains high. She tolerated passive and active ROM well today. Patient performed some seated exercises and was not able to sit upright and needed assist with this for balance. The patient will continue to benefit from continued skilled physical therapy for stretching, strengthening and improvement on seated posture. PLAN FOR NEXT VISIT: Continue with stretching and work toward upright seated posture as able. SUBJECTIVE: Patient reports she has pressure B groin and thighs today. Pain Score: 3/10 Pain Location: Groin - Right;Groin - Left;Thigh - Right;Thigh - Left Description: Pressure Frequency: Continuous Post Treatment Pain Score: No Change OBJECTIVE MEASURES WITH LEVEL OF FUNCTION: Patient showed improvements in sitting in w/c at start of treatment without the fear of falling out of chair. TREATMENT: Therapeutic Exercise: 2: AROM DF/PF 2x10 B 3: AROM right evr 2x10 with tactile and verbal cues for form . 4: PROM for DF/PF and Inver/Eversion 2x10 on R 5: AROM left inv/evr 2x10. 6: Supine hip ABD B 2x10 with AAROM. 8: Supine hamstring stretching gentle working into passive stretch B per patient tolerance. 10: Supine PROM hip IR/ER 2x10, B 11: Seated with therapist supporting back and daughter bracing LE scapular retraction 2x10. 12: Seated with therapist assist and patient not able to achieve upright posture LAQ and hip flexion B 2x10. 14: AAROM for lumbar rotation 2x10 reps 15: B PROM for hip flexion, hip ER, knee flexion, and passive flexion of right great toe.. 17: Supine hip flexor stretch letting leg hang off of mat table 10 sec, 3x, B 18: Supine with B LE mostly straight pushing against Large green wedge bolster with therapist holding bolster stationary during the push from patient. Work at this x 4 minutes with intermittent rest breaks. Skilled Intervention: Patient was educated in proper exercise technique and purpose for exercises. Skilled judgment was provided in selection of appropriate interventions. Correct performance of therapeutic exercises was facilitated with verbal and visual cuing. Billing: [facility]: Therapeutic Exercise ([id number]): 1:1 time: 45 minutes (3 units: 38-52 mins) Total time: 45 minutes Sammie Salgado PT-Marylou Cortez PT PROGRESS Observed: 03/26/2018 Status: COMPLETED Source: [place] 3:32 PM [facility] REPOSITORY HNO ID: [id number] Author: Opal (Lilia) Joshua Service: (none) Author Type: [employer] Type: Progress Notes Filed: 03/26/2018 3:39 PM Note Text: Social Work Problem Referral Note INFORMATION/REFERRAL : Romain Mcdermott 78 year old female was referred by family - Name: Nyla to [facility] Social Work for the following reason(s): community services/resources PERSONS INTERVIEWED: patient and family - Name: Nyla, eddie INTERVENTION: Information AND Referral Service Co-ordination Affect/Mood: The patient is noted as distressed IDENTIFIED PROBLEMS/NEEDS: Caregiver need, identified as resources to assist with patient's mental health Intervention/Referral to be provided:Arrangements made for continuity of care Information for community resources/agencies IMPRESSION/PLAN: LILIA met with patient and her daughter following her physical therapy appointment to provide counseling resources in the community. Information for the [facility], [facility] and [facility] were provided. Patient was in distress due to pain radiating from hip and right ankle. LILIA spoke with patient about care prior to coming to [facility] and patient seemed engaged in the conversation. Patient reports she recently got a smart phone and enjoys looking up information about past actors from shows she watched as a child. Patient will be followed by JACINTA Ta, SPLICER MACHINE OPERATOR. When patient's daughter arrived, LIILA reiterated what services are provided by the [facility], [facility]. Patient's daughter had her children in the car and was unable to stay for long. LILIA encouraged them to call if any needs arise or if they have any questions. F/U APPOINTMENT: CHEO Bosch CNTHERAPY Observed: 03/26/2018 Status: COMPLETED Source: [place] 2:15 PM [facility] [place] REPOSITORY OT/PT/Speech Visit (PTWS) ROMAIN MCDERMOTT ([id number]) 1940 F Date Time Provider Department 03/26/18 2:15 PM SAMMIE SALGADO ([employer]) PTWS Date Time Provider Department Center 03/26/2018 2:15 PM [id number], NANCY ([employer]) [facility] Reason for Visit: Physical Therapy [503] Primary Visit Diagnosis:Pain in right foot [M79.671] Other Visit Diagnoses:Generalized anxiety disorder [F41.1] Hip contracture, 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 Dx: * INSULIN ASPART U-100 100 UNI* 1 unit for 15 g of carbs with* INSULIN DETEMIR (U-100) 100 U* Inject 25 Units subcutaneousl* LEVOTHYROXINE 75 MCG TABLET Take 1 tablet by mouth once d* ASPIRIN 81 MG CHEWABLE TABLET Take 1 tablet by mouth once d* Progress Notes: Kvng Cortez PT 03/26/2018 4:43 PM Signed Episode Visit Count: 17 Therapist That Will Oversee The Plan Of Care: Madison Longoria PT Start of Care Date: 01/13/18 Onset Date: 01/17/17 Plan of Care Certification Date: 01/13/18 Patient Identified by Name and Date of : Yes REHABILITATION AND SPORTS THERAPY PHYSICAL THERAPY TREATMENT NOTE ASSESSMENT: Romain Mcdermott demonstrated improvements in sitting in w/c at start of treatment without the fear of falling out of chair. Patient's tone in right foot remains high. She tolerated passive and active ROM well today. Patient performed some seated exercises and was not able to sit upright and needed assist with this for balance. The patient will continue to benefit from continued skilled physical therapy for stretching, strengthening and improvement on seated posture. PLAN FOR NEXT VISIT: Continue with stretching and work toward upright seated posture as able. SUBJECTIVE: Patient reports she has pressure B groin and thighs today. Pain Score: 3/10 Pain Location: Groin - Right;Groin - Left;Thigh - Right;Thigh - Left Description: Pressure Frequency: Continuous Post Treatment Pain Score: No Change OBJECTIVE MEASURES WITH LEVEL OF FUNCTION: Patient showed improvements in sitting in w/c at start of treatment without the fear of falling out of chair. TREATMENT: Therapeutic Exercise: 2: AROM DF/PF 2x10 B 3: AROM right evr 2x10 with tactile and verbal cues for form . 4: PROM for DF/PF and Inver/Eversion 2x10 on R 5: AROM left inv/evr 2x10. 6: Supine hip ABD B 2x10 with AAROM. 8: Supine hamstring stretching gentle working into passive stretch B per patient tolerance. 10: Supine PROM hip IR/ER 2x10, B 11: Seated with therapist supporting back and daughter bracing LE scapular retraction 2x10. 12: Seated with therapist assist and patient not able to achieve upright posture LAQ and hip flexion B 2x10. 14: AAROM for lumbar rotation 2x10 reps 15: B PROM for hip flexion, hip ER, knee flexion, and passive flexion of right great toe.. 17: Supine hip flexor stretch letting leg hang off of mat table 10 sec, 3x, B 18: Supine with B LE mostly straight pushing against Large green wedge bolster with therapist holding bolster stationary during the push from patient. Work at this x 4 minutes with intermittent rest breaks. Skilled Intervention: Patient was educated in proper exercise technique and purpose for exercises. Skilled judgment was provided in selection of appropriate interventions. Correct performance of therapeutic exercises was facilitated with verbal and visual cuing. Billing: [facility]: Therapeutic Exercise ([id number]): 1:1 time: 45 minutes (3 units: 38-52 mins) Total time: 45 minutes Sammie Salgado, PT-Marylou Cortez, SIMON Previous Version Follow-up and Disposition History Recorded CNSW Observed: 03/26/2018 Status: COMPLETED Source: [place] 12:00 AM [facility] REPOSITORY Social Work (HEMTRAY) ROMAIN MCDERMOTT ([id number]) 1940 F Date Time Provider Department 03/26/18 OPAL DHALIWAL (SW) During your visit today, we recorded the following information about you: CHEO Joy 03/26/2018 3:39 PM Signed Social Work Problem Referral Note INFORMATION/REFERRAL : Romain Mcdermott 78 year old female was referred by family - Name: Nyla to [facility] Social Work for the following reason(s): community services/resources PERSONS INTERVIEWED: patient and family - Name: Nyla, eddie INTERVENTION: Information AND Referral Service Co-ordination Affect/Mood: The patient is noted as distressed IDENTIFIED PROBLEMS/NEEDS: Caregiver need, identified as resources to assist with patient's mental health Intervention/Referral to be provided:Arrangements made for continuity of care Information for community resources/agencies IMPRESSION/PLAN: LILIA met with patient and her daughter following her physical therapy appointment to provide counseling resources in the community. Information for the [facility] and [facility] were provided. Patient was in distress due to pain radiating from hip and right ankle. SW spoke with patient about care prior to coming to [facility] and patient seemed engaged in the conversation. Patient reports she recently got a smart phone and enjoys looking up information about past actors from shows she watched as a child. Patient will be followed by JACINTA Ta, SPLICER MACHINE OPERATOR. When patient's daughter arrived, LILIA reiterated what services are provided by the [facility], [facility]. Patient's daughter had her children in the car and was unable to stay for long. LILIA encouraged them to call if any needs arise or if they have any questions. F/U APPOINTMENT: CHEO Bosch Allergies As of Date: 03/26/2018 (No Known Allergies) Date Reviewed: 03/07/2018 Reviewed by: Prerna Gallegos RN - Fully Assessed Reason for Visit: Social Work Services [507] Prescriptions as of 03/26/2018 Sig: CYCLOBENZAPRINE 10 MG TABLET Take 1 tablet by mouth once d* COMPOUNDED PRESCRIPTION 1 Wheelchair with removable f* BLOOD SUGAR DIAGNOSTIC STRIPS Check blood sugar 4 times nenita* BLOOD-GLUCOSE METER 1 Each four times daily. 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] INVALID FOR* Hip contracture, left [M24.552] INVALID FOR* Generalized anxiety disorder [F41.1] INVALID FOR* Diabetes mellitus type 1, controlled, without c*INVALID FOR* Encounter Status:Closed by OPAL DHALIWAL on 03/26/18 PROGRESS Observed: 03/24/2018 Status: COMPLETED Source: [place] 11:54 AM [facility] [place] REPOSITORY O ID: [id number] Author: Madison Longoria Service: (none) Author Type: Physical Therapist Type: Progress Notes Filed: 03/24/2018 2:30 PM Note Text: Episode Visit Count: 16 Therapist That Will Oversee The Plan Of Care: Madison Longoria PT Start of Care Date: 01/13/18 Onset Date: 01/17/17 Plan of Care Certification Date: 01/13/18 Patient Identified by Name and Date of : Yes REHABILITATION AND SPORTS THERAPY PHYSICAL THERAPY TREATMENT NOTE ASSESSMENT: Romain Mcdermott demonstrated difficulty with sitting up right with increase tone trunk and lower legs with minimal ability to bend at the waist at start of treatment. Patient following passive stretching B lower extremity was able to sit more upright with less pressure and tightness. Patient muscle tone high from waist through B lower extremity at start of treatment right greater than left. The patient will continue to benefit from continued skilled physical therapy for A/PROM, weight bearing and working on upright seated posture. PLAN FOR NEXT VISIT: Continue with stretching and work toward upright seated posture as able. SUBJECTIVE: Patient and patient's daughter report increase tightness B hips and LE. Patient reports she feels she is falling out of her chair as she has difficulty today sitting due to tightness in B hips. Patient reports she did not take Flexoral prior to treatment today and plans to take it when she goes home. Pain Score: 0/10 Pain Location: Hip - Right;Hip - Left;Knee - Right;Knee - Left;Ankle - Right Description: Pressure;Tightness Frequency: Continuous Post Treatment Pain Score: 0/10 Pain Location: Hip - Right;Hip - Left;Knee - Right;Knee - Left;Ankle - Right;Ankle - Left Post Treatment Pain Description: (looser and less pressure.) OBJECTIVE MEASURES WITH LEVEL OF FUNCTION: High tone right > left trunk through lower extremity at start of treatment which decreased following passive stretching. Patient able to sit in w/c at end of treatment with improved upright posture. TREATMENT: Therapeutic Exercise: 1: Instruction on relaxation breathing to assist with tone control throughout treatment. 2: AROM DF/PF 2x10 B 3: AROM right evr 2x10 with tactile and verbal cues for form 2x10. 4: PROM for DF/PF and Inver/Eversion 2x10 on R 5: AROM left inv/evr 2x10. 6: Supine hip ABD B 2x10 with AAROM. 8: Supine hamstring stretching gentle working into passive stretch B per patient tolerance. 10: Supine PROM hip IR/ER 2x10, B 14: AAROM for lumbar rotation 2x10 reps 15: B PROM for hip flexion, hip ER, knee flexion, and passive flexion of right great toe.. 19: Maximal assist of 1 with transfer w/c to mat and mat to w/c. Skilled Intervention: Patient was educated in proper exercise technique and purpose for exercises. Skilled judgment was provided in selection of appropriate interventions. Correct performance of therapeutic exercises was facilitated with verbal and visual cuing. Billing: [facility]: Therapeutic Exercise ([id number]): 1:1 time: 45 minutes (3 units: 38-52 mins) Total time: 45 minutes WILBERT Moscoso PT CNTHERAPY Observed: 03/24/2018 Status: COMPLETED Source: [place] 9:15 AM [facility] REPOSITORY OT/PT/Speech Visit (PTWS) ROMAIN MCDERMOTT ([id number]) 1940 F Date Time Provider Department 03/24/18 9:15 AM SAMMIE SALGADO ([employer]) PTWS Date Time Provider Department Center 03/24/2018 9:15 AM [id number], NANCY ([employer]BER) [facility]WS [facility] Reason for Visit: Physical Therapy [503] Primary Visit Diagnosis:Pain in right foot [M79.671] Other Visit Diagnoses:Generalized anxiety disorder [F41.1] Hip contracture, 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 Dx: * INSULIN ASPART U-100 100 UNI* 1 unit for 15 g of carbs with* INSULIN DETEMIR (U-100) 100 U* Inject 25 Units subcutaneousl* LEVOTHYROXINE 75 MCG TABLET Take 1 tablet by mouth once d* ASPIRIN 81 MG CHEWABLE TABLET Take 1 tablet by mouth once d* Progress Notes: Madison Longoria PT 03/24/2018 2:30 PM Signed Episode Visit Count: 16 Therapist That Will Oversee The Plan Of Care: Madison Longoria PT Start of Care Date: 01/13/18 Onset Date: 01/17/17 Plan of Care Certification Date: 01/13/18 Patient Identified by Name and Date of : Yes REHABILITATION AND SPORTS THERAPY PHYSICAL THERAPY TREATMENT NOTE ASSESSMENT: Romain Mcdermott demonstrated difficulty with sitting up right with increase tone trunk and lower legs with minimal ability to bend at the waist at start of treatment. Patient following passive stretching B lower extremity was able to sit more upright with less pressure and tightness. Patient muscle tone high from waist through B lower extremity at start of treatment right greater than left. The patient will continue to benefit from continued skilled physical therapy for A/PROM, weight bearing and working on upright seated posture. PLAN FOR NEXT VISIT: Continue with stretching and work toward upright seated posture as able. SUBJECTIVE: Patient and patient's daughter report increase tightness B hips and LE. Patient reports she feels she is falling out of her chair as she has difficulty today sitting due to tightness in B hips. Patient reports she did not take Flexoral prior to treatment today and plans to take it when she goes home. Pain Score: 0/10 Pain Location: Hip - Right;Hip - Left;Knee - Right;Knee - Left;Ankle - Right Description: Pressure;Tightness Frequency: Continuous Post Treatment Pain Score: 0/10 Pain Location: Hip - Right;Hip - Left;Knee - Right;Knee - Left;Ankle - Right;Ankle - Left Post Treatment Pain Description: (looser and less pressure.) OBJECTIVE MEASURES WITH LEVEL OF FUNCTION: High tone right > left trunk through lower extremity at start of treatment which decreased following passive stretching. Patient able to sit in w/c at end of treatment with improved upright posture. TREATMENT: Therapeutic Exercise: 1: Instruction on relaxation breathing to assist with tone control throughout treatment. 2: AROM DF/PF 2x10 B 3: AROM right evr 2x10 with tactile and verbal cues for form 2x10. 4: PROM for DF/PF and Inver/Eversion 2x10 on R 5: AROM left inv/evr 2x10. 6: Supine hip ABD B 2x10 with AAROM. 8: Supine hamstring stretching gentle working into passive stretch B per patient tolerance. 10: Supine PROM hip IR/ER 2x10, B 14: AAROM for lumbar rotation 2x10 reps 15: B PROM for hip flexion, hip ER, knee flexion, and passive flexion of right great toe.. 19: Maximal assist of 1 with transfer w/c to mat and mat to w/c. Skilled Intervention: Patient was educated in proper exercise technique and purpose for exercises. Skilled judgment was provided in selection of appropriate interventions. Correct performance of therapeutic exercises was facilitated with verbal and visual cuing. Billing: [facility]: Therapeutic Exercise ([id number]): 1:1 time: 45 minutes (3 units: 38-52 mins) Total time: 45 minutes WILBERT Moscoso PT Previous Version Follow-up and Disposition History Recorded PROGRESS Observed: 03/21/2018 Status: COMPLETED Source: [place] 1:36 PM [facility] REPOSITORY HNO ID: [id number] Author: Madison Longoria Service: (none) Author Type: Physical Therapist Type: Progress Notes Filed: 03/23/2018 2:16 PM Note Text: Episode Visit Count: 15 Therapist That Will Oversee The Plan Of Care: Madison Longoria PT Start of Care Date: 01/13/18 Onset Date: 01/17/17 Plan of Care Certification Date: 01/13/18 Patient Identified by Name and Date of : Yes REHABILITATION AND SPORTS THERAPY PHYSICAL THERAPY TREATMENT NOTE ASSESSMENT: Romain Mcdermott demonstrated improvements in transfers today with increase weight bearing during the transfer. Right foot unchanged with high tone persists. The patient will continue to benefit from continued skilled physical therapy for stretching, AROM and weight bearing exercises as able. PLAN FOR NEXT VISIT: Continue with stretching, AROM B LE and supine weight bearing with feet against the wall. SUBJECTIVE: Patient reports increase soreness this morning with cooler weather and rain. She reports taking Floxoral earlier this morning. No c/o increase discomfort following last therapy. Pain Score: 5/10 Pain Location: Hip - Right;Knee - Right;Ankle - Right Description: Pressure Frequency: Continuous Post Treatment Pain Score: 4/10 Pain Location: Hip - Right;Knee - Right;Ankle - Right Post Treatment Pain Description: Pressure OBJECTIVE MEASURES WITH LEVEL OF FUNCTION: Improved ability to transfer from mat to w/c with mod/max assist from 1 therapist. TREATMENT: Therapeutic Exercise: 2: AROM DF/PF x20, B 3: AROM right evr 2x10 with tactile and verbal cues for form 2x10. 4: PROM for DF/PF and Inver/Eversion 2x10 on R 5: AROM left inv/evr 2x10. 6: Supine hip ABD 3x10 7: Supine heel slides 2x10, B 8: Supine hamstring contract/relax 5 sec holds x 3 each side. 10: Supine PROM hip IR/ER x20, B 14: AROM for lumbar rotation 1x10 reps 15: B PROM for hip flexion, hip ER, knee flexion, and passive flexion of right great toe. 17: Supine hip flexor stretch letting leg hang off of mat table 10 sec, 3x, B 18: Supine with knees slightly bent with feet against wall with push into feet per patient tolerance working at this times 6 minutes. Therapist assisted with right foot alignment to assist with proper position in weight bearing. 19: Max assist of 1 from therapist with transfer w/c to mat and moderate assit mat to w/c with improved weight bearing during transfer. Skilled Intervention: Patient was educated in proper exercise technique and purpose for exercises. Skilled judgment was provided in selection of appropriate interventions. Correct performance of therapeutic exercises was facilitated with verbal cuing. Billing: [facility]: Therapeutic Exercise ([id number]): 1:1 time: 45 minutes (3 units: 38-52 mins) Total time: 45 minutes Sammie Salgado PTDerick Longoria PT CNTHERAPY Observed: 03/21/2018 Status: COMPLETED Source: [place] 12:30 PM [facility] REPOS[facility]ORY OT/PT/Speech Visit (PTWS) ROMAIN MCDERMOTT ([id number]) 1940 F Date Time Provider Department 03/21/18 12:30 PM SAMMIE SALGADO ([employer]) PTWS Date Time Provider Department Center 03/21/2018 12:30 PM [id number], NANCY ([employer]) [facility] Reason for Visit: Physical Therapy [503] Primary Visit Diagnosis:Pain in right foot [M79.671] Other Visit Diagnoses:Generalized anxiety disorder [F41.1] Hip contracture, 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 Dx: * INSULIN ASPART U-100 100 UNI* 1 unit for 15 g of carbs with* INSULIN DETEMIR (U-100) 100 U* Inject 25 Units subcutaneousl* LEVOTHYROXINE 75 MCG TABLET Take 1 tablet by mouth once d* ASPIRIN 81 MG CHEWABLE TABLET Take 1 tablet by mouth once d* Progress Notes: Madison Longoria PT 03/23/2018 2:16 PM Signed Episode Visit Count: 15 Therapist That Will Oversee The Plan Of Care: Madison Longoria PT Start of Care Date: 01/13/18 Onset Date: 01/17/17 Plan of Care Certification Date: 01/13/18 Patient Identified by Name and Date of : Yes REHABILITATION AND SPORTS THERAPY PHYSICAL THERAPY TREATMENT NOTE ASSESSMENT: Romain Mcdermott demonstrated improvements in transfers today with increase weight bearing during the transfer. Right foot unchanged with high tone persists. The patient will continue to benefit from continued skilled physical therapy for stretching, AROM and weight bearing exercises as able. PLAN FOR NEXT VISIT: Continue with stretching, AROM B LE and supine weight bearing with feet against the wall. SUBJECTIVE: Patient reports increase soreness this morning with cooler weather and rain. She reports taking Floxoral earlier this morning. No c/o increase discomfort following last therapy. Pain Score: 5/10 Pain Location: Hip - Right;Knee - Right;Ankle - Right Description: Pressure Frequency: Continuous Post Treatment Pain Score: 4/10 Pain Location: Hip - Right;Knee - Right;Ankle - Right Post Treatment Pain Description: Pressure OBJECTIVE MEASURES WITH LEVEL OF FUNCTION: Improved ability to transfer from mat to w/c with mod/max assist from 1 therapist. TREATMENT: Therapeutic Exercise: 2: AROM DF/PF x20, B 3: AROM right evr 2x10 with tactile and verbal cues for form 2x10. 4: PROM for DF/PF and Inver/Eversion 2x10 on R 5: AROM left inv/evr 2x10. 6: Supine hip ABD 3x10 7: Supine heel slides 2x10, B 8: Supine hamstring contract/relax 5 sec holds x 3 each side. 10: Supine PROM hip IR/ER x20, B 14: AROM for lumbar rotation 1x10 reps 15: B PROM for hip flexion, hip ER, knee flexion, and passive flexion of right great toe. 17: Supine hip flexor stretch letting leg hang off of mat table 10 sec, 3x, B 18: Supine with knees slightly bent with feet against wall with push into feet per patient tolerance working at this times 6 minutes. Therapist assisted with right foot alignment to assist with proper position in weight bearing. 19: Max assist of 1 from therapist with transfer w/c to mat and moderate assit mat to w/c with improved weight bearing during transfer. Skilled Intervention: Patient was educated in proper exercise technique and purpose for exercises. Skilled judgment was provided in selection of appropriate interventions. Correct performance of therapeutic exercises was facilitated with verbal cuing. Billing: [facility]: Therapeutic Exercise ([id number]): 1:1 time: 45 minutes (3 units: 38-52 mins) Total time: 45 minutes Sammie Salgado, PT-Marylou Longorai PT Previous Version Follow-up and Disposition History Recorded PROGRESS Observed: 2018 Status: COMPLETED Source: [place] 10:18 AM [facility] [place] REPOSITORY O ID: [id number] Author: Kvng (Pt) Dana Service: (none) Author Type: Physical Therapist Type: Progress Notes Filed: 2018 1:28 PM Note Text: Episode Visit Count: 14 Therapist That Will Oversee The Plan Of Care: Madison Longoria PT Start of Care Date: 01/13/18 Onset Date: 01/17/17 Plan of Care Certification Date: 01/13/18 Patient Identified by Name and Date of : Yes REHABILITATION AND SPORTS THERAPY PHYSICAL THERAPY TREATMENT NOTE ASSESSMENT: Romain Mcdermott demonstrated good mat mobility to assist with direction change to place feet on the wall for a supine weight bearing activity. She was please to be able to pressure through her feet in this position. Patient needed cueing to relax during stretching and this helped to improved passive stretching. Right and and foot continue to have very high tone. The patient will continue to benefit from continued skilled physical therapy for A/PROM B lower extremity with emphasis on right. PLAN FOR NEXT VISIT: Monitor response to supine weight bearing with feet against the wall and continue per patient tolerance. SUBJECTIVE: Patient reports she is very stiff today with rainy weather. I feel like my body has betrayed me. Pain Score: 5/10 Pain Location: Hip - Right;Knee - Right;Ankle - Right Description: Pressure Frequency: Continuous Post Treatment Pain Score: 2/10 Pain Location: Hip - Right;Knee - Right;Ankle - Right Post Treatment Pain Description: (looser and better) OBJECTIVE MEASURES WITH LEVEL OF FUNCTION: Patient able to promote weight bearing through B feet supine with knees slightly bent pushing feet into the wall. TREATMENT: Therapeutic Exercise: 2: AROM DF/PF x20, B 4: PROM for DF/PF and Inver/Eversion 2x10 on R 6: Supine hip ABD 3x10 (therapist stabilizing opposite pelvis) 7: Supine heel slides 2x10, B 8: Supine hamstring contract/relax 10 sec holds, 3 sets of 3x on each side 10: Supine PROM hip IR/ER x20, B 14: AROM for lumbar rotation 2x10 reps 15: B PROM for hip flexion, hip ER, knee flexion, and passive flexion of right great toe. 17: Supine hip flexor stretch letting leg hang off of mat table 10 sec, 3x, B 18: Supine with knees slightly bent with feet against wall with push into feet per patient tolerance working at this times 6 minutes. Therapist assisted with right foot alignment to assist with proper position in weight bearing. 19: Max assist of 1 from therapist with transfer w/c to mat and mat to w/c. Another therapist was standing by to assist as needed and no extra assist was needed today. Skilled Intervention: Patient was educated in proper exercise technique and purpose for exercises. Skilled judgment was provided in selection of appropriate interventions. Correct performance of therapeutic exercises was facilitated with verbal and visual cuing. Billing: [facility]: Therapeutic Exercise ([id number]): 1:1 time: 45 minutes (3 units: 38-52 mins) Total time: 45 minutes WILBERT Mosocso PT CNTHERAPY Observed: 2018 Status: COMPLETED Source: [place] 9:15 AM [facility] REPOSITORY OT/PT/Speech Visit (PTWS) ROMAIN MCDERMOTT ([id number]) 1940 F Date Time Provider Department 03/20/18 9:15 AM SAMMIE SALGADO ([employer]) PTWS Date Time Provider Department Center 2018 9:15 AM [id number], NANCY ([employer]) PTWS [facility] Reason for Visit: Physical Therapy [503] Primary Visit Diagnosis:Pain in right foot [M79.671] Other Visit Diagnoses:Generalized anxiety disorder [F41.1] Hip contracture, 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 Dx: * INSULIN ASPART U-100 100 UNI* 1 unit for 15 g of carbs with* INSULIN DETEMIR (U-100) 100 U* Inject 25 Units subcutaneousl* LEVOTHYROXINE 75 MCG TABLET Take 1 tablet by mouth once d* ASPIRIN 81 MG CHEWABLE TABLET Take 1 tablet by mouth once d* Progress Notes: Kvng Cortez, PT 2018 1:28 PM Signed Episode Visit Count: 14 Therapist That Will Oversee The Plan Of Care: Madison Longoria PT Start of Care Date: 01/13/18 Onset Date: 01/17/17 Plan of Care Certification Date: 01/13/18 Patient Identified by Name and Date of : Yes REHABILITATION AND SPORTS THERAPY PHYSICAL THERAPY TREATMENT NOTE ASSESSMENT: Romain Mcdermott demonstrated good mat mobility to assist with direction change to place feet on the wall for a supine weight bearing activity. She was please to be able to pressure through her feet in this position. Patient needed cueing to relax during stretching and this helped to improved passive stretching. Right and and foot continue to have very high tone. The patient will continue to benefit from continued skilled physical therapy for A/PROM B lower extremity with emphasis on right. PLAN FOR NEXT VISIT: Monitor response to supine weight bearing with feet against the wall and continue per patient tolerance. SUBJECTIVE: Patient reports she is very stiff today with rainy weather. I feel like my body has betrayed me. Pain Score: 5/10 Pain Location: Hip - Right;Knee - Right;Ankle - Right Description: Pressure Frequency: Continuous Post Treatment Pain Score: 2/10 Pain Location: Hip - Right;Knee - Right;Ankle - Right Post Treatment Pain Description: (looser and better) OBJECTIVE MEASURES WITH LEVEL OF FUNCTION: Patient able to promote weight bearing through B feet supine with knees slightly bent pushing feet into the wall. TREATMENT: Therapeutic Exercise: 2: AROM DF/PF x20, B 4: PROM for DF/PF and Inver/Eversion 2x10 on R 6: Supine hip ABD 3x10 (therapist stabilizing opposite pelvis) 7: Supine heel slides 2x10, B 8: Supine hamstring contract/relax 10 sec holds, 3 sets of 3x on each side 10: Supine PROM hip IR/ER x20, B 14: AROM for lumbar rotation 2x10 reps 15: B PROM for hip flexion, hip ER, knee flexion, and passive flexion of right great toe. 17: Supine hip flexor stretch letting leg hang off of mat table 10 sec, 3x, B 18: Supine with knees slightly bent with feet against wall with push into feet per patient tolerance working at this times 6 minutes. Therapist assisted with right foot alignment to assist with proper position in weight bearing. 19: Max assist of 1 from therapist with transfer w/c to mat and mat to w/c. Another therapist was standing by to assist as needed and no extra assist was needed today. Skilled Intervention: Patient was educated in proper exercise technique and purpose for exercises. Skilled judgment was provided in selection of appropriate interventions. Correct performance of therapeutic exercises was facilitated with verbal and visual cuing. Billing: [facility]: Therapeutic Exercise ([id number]): 1:1 time: 45 minutes (3 units: 38-52 mins) Total time: 45 minutes WILBERT Moscoso PT Previous Version Follow-up and Disposition History Recorded PROGRESS Observed: 03/19/2018 Status: COMPLETED Source: [place] 1:20 PM [facility] REPOSITORY HNO ID: [id number] Author: Madison Longoria Service: (none) Author Type: Physical Therapist Type: Progress Notes Filed: 03/19/2018 1:28 PM Note Text: Episode Visit Count: 13 Therapist That Will Oversee The Plan Of Care: Madison Longoria PT Start of Care Date: 01/13/18 Onset Date: 01/17/17 Plan of Care Certification Date: 01/13/18 REHABILITATION AND SPORTS THERAPY PHYSICAL THERAPY TREATMENT NOTE ASSESSMENT: Romain Marylou Mcdermott demonstrated improvements in less leg rigidity today. Patient's daughter had to call the squad over the weekend on Saturday AM as her mom's blood sugar fell to 28. Patient's daughter has now put all of her mom's medications up high to ensure she does not take too much insulin as daughter has found she requires less insulin with Flexeril. The patient will continue to benefit from continued skilled physical therapy for PROM and AROM of hip, knee, and feet along with posture activities. PLAN FOR NEXT VISIT: Continue PROM for hips,knees, and R ankle. Posture. To encorage weight bearing through L foot could use a scale for feedback for patient. SUBJECTIVE: Pt daughter states that her mom took Flexeril and 2 Tylenol before PT. They picked up her w/c script last week and now trying to find a place they can see a w/c before ordering. Called Squad Saturday at 3:00am because her mom's sugar level was so low. When she woke, her sugar was 28; patient was being very agressive and unable to get sugar readings. Flexeril seems to impact how much insulin she needs per the patients daughter. Pt drank sugar water which helped bring sugars up to 50 and then by the time woke in the AM sugar was 180. Daniel has noted patient needs only 2 units o insulin when she takes Flexeril, and her mom took 3 units of insulin Saturday night, which caused her to have a low sugar reading. Now daughter is keeping all of pts medications up high, so daughter can control her mom's medication. Pain Score: (no rating provided) Pain Location: Knee - Left;Knee - Right;Ankle - Right;Hip - Right;Hip - Left Description: Pressure Frequency: Continuous (standing/movment) Post Treatment Pain Score: (not rated) OBJECTIVE MEASURES WITH LEVEL OF FUNCTION: Posture / Alignment Posture: Forward head;Rounded shoulders Posture comment: sitting in w/c with R foot in plantar flexed and inverted position on W/c rest LE Observations: less rigidity of legs today vs last session Skin on back of R hand and lower arm purple in color d/t multiple attempts at getting an IV in arm on Saturday. Patient required stabilization of her pelvis with hip supine hip ABDuction TREATMENT: Therapeutic Exercise: 2: AROM DF/PF x20, B 4: PROM for DF/PF and Inver/Eversion 2x10 on R 6: Supine hip ABD 3x10 (therapist stabilizing opposite pelvis) 8: Supine hamstring contract/relax 10 sec holds, 3 sets of 3x on each side 10: Supine PROM hip IR/ER x20, B 12: Supine Quad sets 3x10, 5 sec holds 14: AROM for lumbar rotation x10 sec holds, 6x each direction 15: B PROM for hip flexion, hip ER, knee flexion, DF of great toe x20 each side 17: Supine hip flexor stretch letting leg hang off of mat table 10 sec, 3x, B (provided a print out of exercise for HEP) Skilled Intervention: Patient was educated in proper exercise technique and purpose for exercises. Skilled judgment was provided in selection of appropriate interventions. Therapeutic Activity: 4: Sitting on edge of mat table with L foot on scale and no UE support with Moderate assistance for trunk posture pressing btw 40-60lbs 6: Max A x1 (pt's daughter) while therapist was encouraging weight bearing through L foot as pt prefers to put weight through her L toes. (diffcult for pt to maintain L heel in contact with ground) Skilled Intervention: Insured patient safety with use of gait belt Billing: [facility]: Therapeutic Exercise ([id number]): 1:1 time: 35 minutes (2 units: 23-37 mins) Therapeutic Activity ([id number]): 1:1 time: 10 minutes (1 unit: 8-22 mins) Total time: 45 minutes Madison Longoria PT CNTHERAPY Observed: 03/18/2018 Status: COMPLETED Source: [place] 11:45 AM [facility] REPOSITORY OT/PT/Speech Visit (PTWS) ROMAIN MCDERMOTT ([id number]) 1940 F Date Time Provider Department 03/18/18 11:45 AM MADISON LONGORIAPT) PTWS Date Time Provider Department Center 03/18/2018 11:45 AM [id number], DIANA (PT)[facility] Reason for Visit: Physical Therapy [503] Primary Visit Diagnosis:Pain in right foot [M79.671] Other Visit Diagnoses:Generalized anxiety disorder [F41.1] Hip contracture, right [M24.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 Dx: * INSULIN ASPART U-100 100 UNI* 1 unit for 15 g of carbs with* INSULIN DETEMIR (U-100) 100 U* Inject 25 Units subcutaneousl* LEVOTHYROXINE 75 MCG TABLET Take 1 tablet by mouth once d* ASPIRIN 81 MG CHEWABLE TABLET Take 1 tablet by mouth once d* Progress Notes: Madison Longoria PT 03/19/2018 1:28 PM Signed Episode Visit Count: 13 Therapist That Will Oversee The Plan Of Care: Madison Longoria PT Start of Care Date: 01/13/18 Onset Date: 01/17/17 Plan of Care Certification Date: 01/13/18 REHABILITATION AND SPORTS THERAPY PHYSICAL THERAPY TREATMENT NOTE ASSESSMENT: Romain Mcdermott demonstrated improvements in less leg rigidity today. Patient's daughter had to call the squad over the weekend on Saturday AM as her mom's blood sugar fell to 28. Patient's daughter has now put all of her mom's medications up high to ensure she does not take too much insulin as daughter has found she requires less insulin with Flexeril. The patient will continue to benefit from continued skilled physical therapy for PROM and AROM of hip, knee, and feet along with posture activities. PLAN FOR NEXT VISIT: Continue PROM for hips,knees, and R ankle. Posture. To encorage weight bearing through L foot could use a scale for feedback for patient. SUBJECTIVE: Pt daughter states that her mom took Flexeril and 2 Tylenol before PT. They picked up her w/c script last week and now trying to find a place they can see a w/c before ordering. Called Squad Saturday at 3:00am because her mom's sugar level was so low. When she woke, her sugar was 28; patient was being very agressive and unable to get sugar readings. Flexeril seems to impact how much insulin she needs per the patients daughter. Pt drank sugar water which helped bring sugars up to 50 and then by the time woke in the AM sugar was 180. Daniel has noted patient needs only 2 units o insulin when she takes Flexeril, and her mom took 3 units of insulin Saturday night, which caused her to have a low sugar reading. Now daughter is keeping all of pts medications up high, so daughter can control her mom's medication. Pain Score: (no rating provided) Pain Location: Knee - Left;Knee - Right;Ankle - Right;Hip - Right;Hip - Left Description: Pressure Frequency: Continuous (standing/movment) Post Treatment Pain Score: (not rated) OBJECTIVE MEASURES WITH LEVEL OF FUNCTION: Posture / Alignment Posture: Forward head;Rounded shoulders Posture comment: sitting in w/c with R foot in plantar flexed and inverted position on W/c rest LE Observations: less rigidity of legs today vs last session Skin on back of R hand and lower arm purple in color d/t multiple attempts at getting an IV in arm on Saturday. Patient required stabilization of her pelvis with hip supine hip ABDuction TREATMENT: Therapeutic Exercise: 2: AROM DF/PF x20, B 4: PROM for DF/PF and Inver/Eversion 2x10 on R 6: Supine hip ABD 3x10 (therapist stabilizing opposite pelvis) 8: Supine hamstring contract/relax 10 sec holds, 3 sets of 3x on each side 10: Supine PROM hip IR/ER x20, B 12: Supine Quad sets 3x10, 5 sec holds 14: AROM for lumbar rotation x10 sec holds, 6x each direction 15: B PROM for hip flexion, hip ER, knee flexion, DF of great toe x20 each side 17: Supine hip flexor stretch letting leg hang off of mat table 10 sec, 3x, B (provided a print out of exercise for HEP) Skilled Intervention: Patient was educated in proper exercise technique and purpose for exercises. Skilled judgment was provided in selection of appropriate interventions. Therapeutic Activity: 4: Sitting on edge of mat table with L foot on scale and no UE support with Moderate assistance for trunk posture pressing btw 40-60lbs 6: Max A x1 (pt's daughter) while therapist was encouraging weight bearing through L foot as pt prefers to put weight through her L toes. (diffcult for pt to maintain L heel in contact with ground) Skilled Intervention: Insured patient safety with use of gait belt Billing: [facility]: Therapeutic Exercise ([id number]): 1:1 time: 35 minutes (2 units: 23-37 mins) Therapeutic Activity ([id number]): 1:1 time: 10 minutes (1 unit: 8-22 mins) Total time: 45 minutes Madison Longoria PT Follow-up and Disposition History Recorded PROGRESS Observed: 03/16/2018 Status: COMPLETED Source: [place] 2:26 PM [facility] [place] REPOSITORY HNO ID: [id number] Author: Madison (Pt) Von Service: (none) Author Type: Physical Therapist Type: Progress Notes Filed: 03/16/2018 2:32 PM Note Text: Episode Visit Count: 12 Therapist That Will Oversee The Plan Of Care: Madison Longoria PT Start of Care Date: 01/13/18 Onset Date: 01/17/17 Plan of Care Certification Date: 01/13/18 REHABILITATION AND SPORTS THERAPY PHYSICAL THERAPY TREATMENT NOTE ASSESSMENT: Romain Mcdermott demonstrated increased rigidity of her R LE today. Unsure why. Patient's daughter wants her mom to be independent in transfers, which may be possible with a better w/c (Solis Quezada CNP had an order created 03/05/18);daughter just has to pickle sorter. Shared with patient and daughter that Romain has not had any changes in her R ankle/foot mobility with PROM or AROM exercises. She has had some improvements in her hip and knee ROM. Patient continues to be be fearful/anxious sitting on the edge of the bed. It is unclear if patient wants to get better. Daughter finds her mom is becoming more dark and depressed this past week. Daughter to look into a social worker palliative care/psychologist. The patient may continue to benefit from continued skilled physical therapy for ther ex, manual, and therapeutic activities. PLAN FOR NEXT VISIT: assess how pt did with supine hip flexor stretch. Continue PROM for hips,knees, and R ankle. To encorage weight bearing through L foot could use a scale for feedback for patient. SUBJECTIVE: Pt's daughter states that mom told her 11 years ago she had a stroke. Daughter stated she feels her mom is getting more dark and depressed. Thinks maybe she should see someone like a psychologist. Thinking about moving her mom down to the basement as her mom is affecting sleep of her household. She states she has a door to the basement and would wheel patient down the hill to the door. Patient also wants to get mom a social worker palliative care. Has not picked up the w/c script yet. Pain Score: (not rated) Pain Location: Knee - Left;Knee - Right;Ankle - Right;Hip - Right;Hip - Left Description: Pressure Frequency: Continuous (movement) OBJECTIVE MEASURES WITH LEVEL OF FUNCTION: Posture / Alignment Posture: Forward head;Increased thoracic kyphosis Posture comment: sitting in w/c with R foot in plantar flexed and inverted position on W/c rest LE Observations: increased rigidity of legs today R>L LE AROM R Hip Flexion: 65 Degrees TREATMENT: Therapeutic Exercise: 2: AROM DF/PF x20, Right 4: PROM for DF/PF and Inver/Eversion 2x10 on R 5: AROM R ankle Eversion pressing into therapist hand and then therapist pressing foot into eversion 2x10 (little to no change in eversion movement) 7: Supine heel slides 2x10, B 8: Supine hamstring contract/relax 10 sec holds, 3 sets of 3x on each side 10: Supine PROM hip IR/ER x20, B 12: Supine Quad sets 3x10, 5 sec holds 15: B PROM for hip flexion, hip ER, knee flexion, DF of great toe x20 each side 17: *Supine hip flexor stretch letting leg hang off of mat table 10 sec, 3x, B 18: Seated shoulder blade squeezes 3x10 Skilled Intervention: Patient was educated in proper exercise technique and purpose for exercises. Reviewed and educated patient on additions/changes for home exercise program as above (*) Skilled judgment was provided in selection of appropriate interventions. Therapeutic Activity: 4: Sitting on edge of mat table shifting weight to R and L, Mod A/Min A (constant cuing to keep head up) 6: Max A x1 (pt's daughter) while therapist was encouraging weight bearing through L foot as pt prefers to put weight through her L toes. Skilled Intervention: Insured patient safety with use of gait belt Activity progression based on professional judgment. Billing: [facility]: Therapeutic Exercise ([id number]): 1:1 time: 30 minutes (2 units: 23-37 mins) Therapeutic Activity ([id number]): 1:1 time: 10 minutes (1 unit: 8-22 mins) Total time: 40 minutes Madison Longoria PT PROGRESS Observed: 03/14/2018 Status: COMPLETED Source: [place] 1:59 PM [facility] RE[facility] HNO ID: [id number] Author: Stephanie Willson LPN Service: (none) Author Type: (none) Type: Progress Notes Filed: 03/14/2018 2:00 PM Note Text: 77 year old female here for INACTIVATED INFLUENZA VACCINE. [id number] Season Patient is identified by name and date of : Yes [] CONTRAINDICATIONS color enhanced section Age less than 6 months? No Allergy to eggs, chicken, chicken feathers, or chicken dander? No Allergy to thimerosal (a preservative) or formaldehyde, gelatin? No History of severe reaction to any vaccine component or a previous dose of influenza vaccination? No History of Guillain-[place] Syndrome within 6 weeks after a previous influenza vaccine? No Patient is not moderately or severely ill? No Current temperature greater or equal to 100.4F? No History of Bone Marrow Transplant prior 6 months or solid organ transplant in the past 3 months ? No History of fainting after a prior injection or medical procedure? No- ? If patient has fainted in the past, the CDC recommends sitting or lying down for 15 minutes after the vaccination. [] VERIFICATION color enhanced section Was the answer Yes for any of the above contraindications? No contraindications present. Acceptable to proceed with vaccine. Patient/guardian agrees the above answers are true to the best of their knowledge? Yes Flu vaccine information sheet given? Yes See immunization activity in [facility] for details of immunizations adminstered today. Patient age: [age] year old For The 6984-0709 Flu Season 6-35 months old: Fluzone 0.25 ml - IM (Preservative Free) 3 years of age: Fluzone 0.5 ml - IM (Preservative Free) 3 years and older: Fluzone 0.5 ml- IM-(with Preservatives) 65+ years old: 2-49 years old Fluzone High-Dose 0.5 ml - IM (Preservative Free) FLUMIST- intranasal REMEMBER: If patient is less than 9 years of age and this is the first vaccine of Influenza to be received in any flu season, they should receive a second dose in one months time. CNNURSE Observed: 03/14/2018 Status: COMPLETED Source: [place] 1:30 PM [facility] Nurse Visit (FAMPWS) ROMAIN MCDERMOTT ([id number]) 1940 F Date Time Provider Department 03/14/18 1:30 PM [place] [facility] During your visit today, we recorded the following information about you: Temperature 98.2 degrees Stephanie Anamika KRISHNAMURTHY 03/14/2018 2:00 PM Signed 77 year old female here for INACTIVATED INFLUENZA VACCINE. Season Patient is identified by name and date of : Yes [] CONTRAINDICATIONS color enhanced section Age less than 6 months? No Allergy to eggs, chicken, chicken feathers, or chicken dander? No Allergy to thimerosal (a preservative) or formaldehyde, gelatin? No History of severe reaction to any vaccine component or a previous dose of influenza vaccination? No History of Guillain-[place] Syndrome within 6 weeks after a previous influenza vaccine? No Patient is not moderately or severely ill? No Current temperature greater or equal to 100.4F? No History of Bone Marrow Transplant prior 6 months or solid organ transplant in the past 3 months ? No History of fainting after a prior injection or medical procedure? No- ? If patient has fainted in the past, the CDC recommends sitting or lying down for 15 minutes after the vaccination. [] VERIFICATION color enhanced section Was the answer Yes for any of the above contraindications? No contraindications present. Acceptable to proceed with vaccine. Patient/guardian agrees the above answers are true to the best of their knowledge? Yes Flu vaccine information sheet given? Yes See immunization activity in [facility] for details of immunizations adminstered today. Patient age: [age] year old For The 3288-1482 Flu Season 6-35 months old: Fluzone 0.25 ml - IM (Preservative Free) 3 years of age: Fluzone 0.5 ml - IM (Preservative Free) 3 years and older: Fluzone 0.5 ml- IM-(with Preservatives) 65+ years old: 2-49 years old Fluzone High-Dose 0.5 ml - IM (Preservative Free) FLUMIST- intranasal REMEMBER: If patient is less than 9 years of age and this is the first vaccine of Influenza to be received in any flu season, they should receive a second dose in one months time. Referring Provider: SELF [200] Allergies As of Date: 03/14/2018 (No Known Allergies) Date Reviewed: 03/07/2018 Reviewed by: Prerna Gallegos RN - Fully Assessed Reason for Visit: Imm/Inj [58] Cmt: Flu Vaccine Primary Visit Diagnosis:Need for vaccination [Z23] Order(s):INFLUENZA SEASONAL HIGH DOSE AGE 65+ [[id number]] Order #: [id number] Prescriptions as of 03/14/2018 Sig: CYCLOBENZAPRINE 10 MG TABLET Take 1 tablet by mouth once d* COMPOUNDED PRESCRIPTION 1 Wheelchair with removable f* BLOOD SUGAR DIAGNOSTIC STRIPS Check blood sugar 4 times nenita* BLOOD-GLUCOSE METER 1 Each four times daily. Dx: * INSULIN ASPART U-100 100 UNI* 1 unit for 15 g of carbs with* INSULIN DETEMIR (U-100) 100 U* Inject 25 Units subcutaneousl* LEVOTHYROXINE 75 MCG TABLET Take 1 tablet by mouth once d* ASPIRIN 81 MG CHEWABLE TABLET Take 1 tablet by mouth once d* Problem List As Of Date 03/14/2018 Noted Resolved Hypothyroidism, acquired [E03.9] INVALID FOR* Hypothyroidism [E03.9] Pain in right foot [M79.671] INVALID FOR* Pain in left hip [M25.552] INVALID FOR* Pain in right hip [M25.551] INVALID FOR* Hip contracture, right [M24.551] INVALID FOR* Hip contracture, left [M24.552] INVALID FOR* Generalized anxiety disorder [F41.1] INVALID FOR* Diabetes mellitus type 1, controlled, without c*INVALID FOR* Encounter Status:Closed by STEPHANIE WILLSON LPN on 03/14/18 CNTHERAPY Observed: 03/14/2018 Status: COMPLETED Source: [place] 12:30 PM [facility] OT/PT/Speech Visit (PTWS) ROMAIN MCDERMOTT ([id number]) 1940 F Date Time Provider Department 03/14/18 12:30 PM MADISON LONGORIA (PT) PTWS Date Time Provider Department Center 03/14/2018 12:30 PM [id number], DIANA (PT)[facility]WS [facility] Reason for Visit: Physical Therapy [503] Primary Visit Diagnosis:Pain in right foot [M79.671] Other Visit Diagnoses:Generalized anxiety disorder [F41.1] Hip contracture, right [M24.551] Hip contracture, left [M24.552] Allergies As of Date: 03/14/2018 (No Known Allergies) Date Reviewed: 03/07/2018 Reviewed by: Prerna Gallegos RN - Fully Assessed Prescriptions as of 03/14/2018 Sig: CYCLOBENZAPRINE 10 MG TABLET Take 1 tablet by mouth once d* COMPOUNDED PRESCRIPTION 1 Wheelchair with removable f* BLOOD SUGAR DIAGNOSTIC STRIPS Check blood sugar 4 times nenita* BLOOD-GLUCOSE METER 1 Each four times daily. Dx: * INSULIN ASPART U-100 100 UNI* 1 unit for 15 g of carbs with* INSULIN DETEMIR (U-100) 100 U* Inject 25 Units subcutaneousl* LEVOTHYROXINE 75 MCG TABLET Take 1 tablet by mouth once d* ASPIRIN 81 MG CHEWABLE TABLET Take 1 tablet by mouth once d* Progress Notes: Madison Longoria PT 03/16/2018 2:32 PM Signed Episode Visit Count: 12 Therapist That Will Oversee The Plan Of Care: Madison Longoria PT Start of Care Date: 01/13/18 Onset Date: 01/17/17 Plan of Care Certification Date: 01/13/18 REHABILITATION AND SPORTS THERAPY PHYSICAL THERAPY TREATMENT NOTE ASSESSMENT: Romain Mcdermott demonstrated increased rigidity of her R LE today. Unsure why. Patient's daughter wants her mom to be independent in transfers, which may be possible with a better w/c (Solis Quezada CNP had an order created 03/05/18);daughter just has to pickle sorter. Shared with patient and daughter that Romain has not had any changes in her R ankle/foot mobility with PROM or AROM exercises. She has had some improvements in her hip and knee ROM. Patient continues to be be fearful/anxious sitting on the edge of the bed. It is unclear if patient wants to get better. Daughter finds her mom is becoming more dark and depressed this past week. Daughter to look into a social worker palliative care/psychologist. The patient may continue to benefit from continued skilled physical therapy for ther ex, manual, and therapeutic activities. PLAN FOR NEXT VISIT: assess how pt did with supine hip flexor stretch. Continue PROM for hips,knees, and R ankle. To encorage weight bearing through L foot could use a scale for feedback for patient. SUBJECTIVE: Pt's daughter states that mom told her 11 years ago she had a stroke. Daughter stated she feels her mom is getting more dark and depressed. Thinks maybe she should see someone like a psychologist. Thinking about moving her mom down to the basement as her mom is affecting sleep of her household. She states she has a door to the basement and would wheel patient down the hill to the door. Patient also wants to get mom a social worker palliative care. Has not picked up the w/c script yet. Pain Score: (not rated) Pain Location: Knee - Left;Knee - Right;Ankle - Right;Hip - Right;Hip - Left Description: Pressure Frequency: Continuous (movement) OBJECTIVE MEASURES WITH LEVEL OF FUNCTION: Posture / Alignment Posture: Forward head;Increased thoracic kyphosis Posture comment: sitting in w/c with R foot in plantar flexed and inverted position on W/c rest LE Observations: increased rigidity of legs today R>L LE AROM R Hip Flexion: 65 Degrees TREATMENT: Therapeutic Exercise: 2: AROM DF/PF x20, Right 4: PROM for DF/PF and Inver/Eversion 2x10 on R 5: AROM R ankle Eversion pressing into therapist hand and then therapist pressing foot into eversion 2x10 (little to no change in eversion movement) 7: Supine heel slides 2x10, B 8: Supine hamstring contract/relax 10 sec holds, 3 sets of 3x on each side 10: Supine PROM hip IR/ER x20, B 12: Supine Quad sets 3x10, 5 sec holds 15: B PROM for hip flexion, hip ER, knee flexion, DF of great toe x20 each side 17: *Supine hip flexor stretch letting leg hang off of mat table 10 sec, 3x, B 18: Seated shoulder blade squeezes 3x10 Skilled Intervention: Patient was educated in proper exercise technique and purpose for exercises. Reviewed and educated patient on additions/changes for home exercise program as above (*) Skilled judgment was provided in selection of appropriate interventions. Therapeutic Activity: 4: Sitting on edge of mat table shifting weight to R and L, Mod A/Min A (constant cuing to keep head up) 6: Max A x1 (pt's daughter) while therapist was encouraging weight bearing through L foot as pt prefers to put weight through her L toes. Skilled Intervention: Insured patient safety with use of gait belt Activity progression based on professional judgment. Billing: [facility]: Therapeutic Exercise ([id number]): 1:1 time: 30 minutes (2 units: 23-37 mins) Therapeutic Activity ([id number]): 1:1 time: 10 minutes (1 unit: 8-22 mins) Total time: 40 minutes Madison Longoria PT PROGRESS Observed: 03/13/2018 Status: COMPLETED Source: [place] 10:23 AM [facility] HNO ID: [id number] Author: Madison (Pt) Von Service: (none) Author Type: Physical Therapist Type: Progress Notes Filed: 03/13/2018 11:35 AM Note Text: Episode Visit Count: 11 Therapist That Will Oversee The Plan Of Care: Madison Longoria PT Start of Care Date: 01/13/18 Onset Date: 01/17/17 Plan of Care Certification Date: 01/13/18 Patient Identified by Name and Date of : Yes REHABILITATION AND SPORTS THERAPY PHYSICAL THERAPY PROGRESS REPORT PLAN OF CARE UPDATE: Assessment: Romain Mcdermott exhibits difficulty with continued contracture of her R foot into PF and inversion, hip contractures, and mobility. She saw Dr. Brady on 03/07/18 who recommended she see Dr. Ramiro Peñaloza, but patient has canceled her appointment as they are unable to make the appointment.. Solis Quezada CNP has an script for patient to get a w/c with removable leg rests, which should help patient in mobility as she has really good UE strength. She continues to be limited with sitting, rising from a chair, standing, walking, physical activities and dressing. She is progressing slower than expected towards her therapy goals as demonstrated by: home exercise program compliance, documented subjective information on progress and documented objective information regarding range of motion, overall function and patient reported outcome measures. She will benefit from continued skilled therapy requiring ther ex, ther activities, and gait (once she has good ROM in her R foot as worried about tearing ligaments or fracturing bones in her R foot due to the contracted nature of her foot) in order to improve R ankle ROM, knee ROM, hip ROM, joint stiffness, pain and trunk stability. Unclear what is causing the B hip contractures or R ankle contracture. Is it an anxiety issue, did patient have a stroke, is there a neurological reason, is it chronic regional pain sx? Neuro work ups have been negative per daughter; Dr. Brady has asked them to obtain medical records. Functional gains: Increased ROM for knees and hips and L hip flexion Goals updated on 03/11/2018. [place] in home exercise program.--Progressing Patient will decrease pain rating by 2 points to meet minimal clinical important difference for numeric pain rating scale. (Goal: 310 R ankle)--Not MET Patient will increase active ROM of R ankle DF/PF/Inversion/Eversion to WNL to allow pt to to achieve neutral postural alignment, improved performance of ADLs and to normalize gait mechanics / gait pattern.--Not MET Demonstrate improvement on functional score: Patient will improve his/her AM-PAC T-scale score by 4 points to indicate a Minimal Clinical Important Difference. (Goal: 45.55)--Not MET Patient will require Min assistance for transfers.--Not MET Patient will be able to walk with a rollator.--Not MET Patient will demonstrate good posture with sitting and standing. Not MET Patient will improve B LE strength to at least 4/5.Not MET Patient will be able to dress herself with Min Assist.--Not MET G CODE REPORTING Based on clinical assessment and the score on the AM-PAC Scale Score Assessment Tool, the G code and corresponding severity modifiers are documented below. Evaluation: 01/13/2018 Current Status: Mobility: Walking and Moving Around: G8978 CL 60-79% impaired Goal Status: Mobility: Walking and Moving Around: G8979 CK 40-59% Impaired Progress Report: 02/11/2018 Current Status: Mobility: Walking and Moving Around: G8978 CL 60-79% impaired Goal Status: Mobility: Walking and Moving Around: G8979 CK 40-59% impaired Progress Report: 03/11/2018 Current Status: Mobility: Walking and Moving Around: G8978 CL 60-79% impaired Goal Status: Mobility: Walking and Moving Around: G8979 CK 40-59% impaired Planned Interventions, Frequency, and Duration: 3x/week, 4 weeks Total Number of Visits Planned: 23 Patient to be seen for Therapeutic exercise;Neuromuscular re-education;Manual therapy;Self-detention management;Gait Training;Patient/Family/Caregiver Education;Body Mechanics Training;General Conditioning;Functional training SUBJECTIVE: Saw Dr. Brday and wants patient to see Dr. Ramiro Peñaloza. Patient needed to cancel appointment tomorrow with Dr. Peñaloza. Started Flexeril last night and daughter stated her mom was not moaning in pain and daughter was able to sleep. Will be picking up script from w/c today. Pain Score: 5/10 Pain Location: Knee - Left;Knee - Right Description: Stiffness Frequency: Continuous (with transfering) OBJECTIVE MEASURES WITH LEVEL OF FUNCTION: Posture / Alignment Posture comment: sitting in w/c with R foot in plantar flexed and inverted position on W/c rest LE Observations: Good coloring and no swelling in R LE today LE AROM R Hip Flexion: 70 Degrees R Knee Extension: -2 Degrees R Knee Flexion: 105 Degrees R Ankle Plantar Flexion: (~45 contracted) R Ankle Inversion: (~20 degrees of contracture) L Hip Flexion: 83 Degrees L Knee Extension: -5 Degrees L Knee Flexion: 126 Degrees LE Strength R LE Strength: 3+/5 L LE Strength: 3+/5 Functional Strength Transfers: Max Ax1 --by daughter as patient did not wish to be transfered by therapists (Patient only puts slight weight on L toes when transferring.) Wheelchair mobility: Independent in w/c propulsion TREATMENT: Therapeutic Exercise: 2: AROM DF/PF x20, Right 3: AROM Inv/Evr x20, R (Nil movement for Eversion) 4: PROM for DF/PF and Inver/Eversion 2x10 on R 5: AROM R ankle Eversion pressing into therapist hand and then therapist pressing foot into eversion 2x10 7: Supine heel slides 2x10, B 8: Supine hamstring contract/relax 10 sec holds, 3 sets of 3x on each side 10: Supine PROM hip IR/ER x20, B 15: B PROM for hip flexion, hip ER, knee flexion, DF of great toe x20 each side 18: Mobs for L and R hip posterior and lateral Grade II 3x10 each Skilled Intervention: Patient was educated in proper exercise technique and purpose for exercises. Skilled judgment was provided in selection of appropriate interventions. Educated patient it is not safe to place weight on on the lateral aspect of her R foot as this could tear tendons or cause fractures due to the contracted nature of her foot. Working towards improving the ROM of the R ankle. Erin: [facility]: Therapeutic Exercise ([id number]): 1:1 time: 41 minutes (3 units: 38-52 mins) Total time: 41 minutes Madison Longoria PT CNTHERAPY Observed: 03/11/2018 Status: COMPLETED Source: [place] 12:30 PM [facility] OT/PT/Speech Visit (PTWS) ROMAIN MCDERMOTT ([id number]) 1940 F Date Time Provider Department 03/11/18 12:30 PM MADISON LONGORIAPT) PTWS Date Time Provider Department Center 03/11/2018 12:30 PM [id number], DIANA (PT)[facility] Reason for Visit: PT Progress Note [8956] Primary Visit Diagnosis:Pain in right foot [M79.671] Other Visit Diagnoses:Generalized anxiety disorder [F41.1] Hip contracture, right [M24.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 Dx: * INSULIN ASPART U-100 100 UNI* 1 unit for 15 g of carbs with* INSULIN DETEMIR (U-100) 100 U* Inject 25 Units subcutaneousl* LEVOTHYROXINE 75 MCG TABLET Take 1 tablet by mouth once d* ASPIRIN 81 MG CHEWABLE TABLET Take 1 tablet by mouth once d* Progress Notes: Madison Longoria PT 03/13/2018 11:35 AM Addendum Episode Visit Count: 11 Therapist That Will Oversee The Plan Of Care: Madison Longoria PT Start of Care Date: 01/13/18 Onset Date: 01/17/17 Plan of Care Certification Date: 01/13/18 Patient Identified by Name and Date of : Yes REHABILITATION AND SPORTS THERAPY PHYSICAL THERAPY PROGRESS REPORT PLAN OF CARE UPDATE: Assessment: Romain Mcdermott exhibits difficulty with continued contracture of her R foot into PF and inversion, hip contractures, and mobility. She saw Dr. Brady on 03/07/18 who recommended she see Dr. Ramiro Peñaloza, but patient has canceled her appointment as they are unable to make the appointment.. Solis Quezada CNP has an script for patient to get a w/c with removable leg rests, which should help patient in mobility as she has really good UE strength. She continues to be limited with sitting, rising from a chair, standing, walking, physical activities and dressing. She is progressing slower than expected towards her therapy goals as demonstrated by: home exercise program compliance, documented subjective information on progress and documented objective information regarding range of motion, overall function and patient reported outcome measures. She will benefit from continued skilled therapy requiring ther ex, ther activities, and gait (once she has good ROM in her R foot as worried about tearing ligaments or fracturing bones in her R foot due to the contracted nature of her foot) in order to improve R ankle ROM, knee ROM, hip ROM, joint stiffness, pain and trunk stability. Unclear what is causing the B hip contractures or R ankle contracture. Is it an anxiety issue, did patient have a stroke, is there a neurological reason, is it chronic regional pain sx? Neuro work ups have been negative per daughter; Dr. Brady has asked them to obtain medical records. Functional gains: Increased ROM for knees and hips and L hip flexion Goals updated on 03/11/2018. [place] in home exercise program.--Progressing Patient will decrease pain rating by 2 points to meet minimal clinical important difference for numeric pain rating scale. (Goal: 07/27 R ankle)--Not MET Patient will increase active ROM of R ankle DF/PF/Inversion/Eversion to WNL to allow pt to to achieve neutral postural alignment, improved performance of ADLs and to normalize gait mechanics / gait pattern.--Not MET Demonstrate improvement on functional score: Patient will improve his/her AM-PAC T-scale score by 4 points to indicate a Minimal Clinical Important Difference. (Goal: 45.55)--Not MET Patient will require Min assistance for transfers.--Not MET Patient will be able to walk with a rollator.--Not MET Patient will demonstrate good posture with sitting and standing. Not MET Patient will improve B LE strength to at least 4/5.Not MET Patient will be able to dress herself with Min Assist.--Not MET G CODE REPORTING Based on clinical assessment and the score on the AM-PAC Scale Score Assessment Tool, the G code and corresponding severity modifiers are documented below. Evaluation: 01/13/2018 Current Status: Mobility: Walking and Moving Around: G8978 CL 60-79% impaired Goal Status: Mobility: Walking and Moving Around: G8979 CK 40-59% Impaired Progress Report: 02/11/2018 Current Status: Mobility: Walking and Moving Around: G8978 CL 60-79% impaired Goal Status: Mobility: Walking and Moving Around: G8979 CK 40-59% impaired Progress Report: 03/11/2018 Current Status: Mobility: Walking and Moving Around: G8978 CL 60-79% impaired Goal Status: Mobility: Walking and Moving Around: G8979 CK 40-59% impaired Planned Interventions, Frequency, and Duration: 3x/week, 4 weeks Total Number of Visits Planned: 23 Patient to be seen for Therapeutic exercise;Neuromuscular re-education;Manual therapy;Self-detention management;Gait Training;Patient/Family/Caregiver Education;Body Mechanics Training;General Conditioning;Functional training SUBJECTIVE: Saw Dr. Brady and wants patient to see Dr. Ramiro Peñaolza. Patient needed to cancel appointment tomorrow with Dr. Peñaloza. Started Flexeril last night and daughter stated her mom was not moaning in pain and daughter was able to sleep. Will be picking up script from w/c today. Pain Score: 5/10 Pain Location: Knee - Left;Knee - Right Description: Stiffness Frequency: Continuous (with transfering) OBJECTIVE MEASURES WITH LEVEL OF FUNCTION: Posture / Alignment Posture comment: sitting in w/c with R foot in plantar flexed and inverted position on W/c rest LE Observations: Good coloring and no swelling in R LE today LE AROM R Hip Flexion: 70 Degrees R Knee Extension: -2 Degrees R Knee Flexion: 105 Degrees R Ankle Plantar Flexion: (~45 contracted) R Ankle Inversion: (~20 degrees of contracture) L Hip Flexion: 83 Degrees L Knee Extension: -5 Degrees L Knee Flexion: 126 Degrees LE Strength R LE Strength: 3+/5 L LE Strength: 3+/5 Functional Strength Transfers: Max Ax1 --by daughter as patient did not wish to be transfered by therapists (Patient only puts slight weight on L toes when transferring.) Wheelchair mobility: Independent in w/c propulsion TREATMENT: Therapeutic Exercise: 2: AROM DF/PF x20, Right 3: AROM Inv/Evr x20, R (Nil movement for Eversion) 4: PROM for DF/PF and Inver/Eversion 2x10 on R 5: AROM R ankle Eversion pressing into therapist hand and then therapist pressing foot into eversion 2x10 7: Supine heel slides 2x10, B 8: Supine hamstring contract/relax 10 sec holds, 3 sets of 3x on each side 10: Supine PROM hip IR/ER x20, B 15: B PROM for hip flexion, hip ER, knee flexion, DF of great toe x20 each side 18: Mobs for L and R hip posterior and lateral Grade II 3x10 each Skilled Intervention: Patient was educated in proper exercise technique and purpose for exercises. Skilled judgment was provided in selection of appropriate interventions. Educated patient it is not safe to place weight on on the lateral aspect of her R foot as this could tear tendons or cause fractures due to the contracted nature of her foot. Working towards improving the ROM of the R ankle. Billing: [facility]: Therapeutic Exercise ([id number]): 1:1 time: 41 minutes (3 units: 38-52 mins) Total time: 41 minutes Madison Longoria PT Previous Version PROGRESS Observed: 03/09/2018 Status: COMPLETED Source: [place] 2:41 PM [facility] HNO ID: [id number] Author: Madison Mcnally) Von Service: (none) Author Type: Physical Therapist Type: Progress Notes Filed: 03/09/2018 2:50 PM Note Text: Episode Visit Count: 10 Therapist That Will Oversee The Plan Of Care: Madison Longoria PT Start of Care Date: 01/13/18 Onset Date: 01/17/17 Plan of Care Certification Date: 01/13/18 Patient Identified by Name and Date of : Yes REHABILITATION AND SPORTS THERAPY PHYSICAL THERAPY TREATMENT NOTE ASSESSMENT: Romain Mcdermott demonstrated difficulty with more independent transfers on her own due to set up of w/c. They now have a script from Solis Quezada for a w/c. Will be seeing Dr. Brady tomorrow. Patient continues to present with a R foot that is plantar flexed and inverted. The patient will continue to benefit from continued skilled physical therapy for ther ex and ther activities. Patient with fair follow through with exercise at home. PLAN FOR NEXT VISIT: Stretch patient out on table, Trunk stability sitting, STS and standing in // bars. Dr. Brady Visit 03/07/18. POC update: 03/11/18 G codes done 03/04/18 SUBJECTIVE: Has never has a w/c or walker covered through insurance, so should not have a problem. Daughter has seen her mom do more since last visit. Will be seeing Dr. Brady on Saturday. Patient states she doesn't do her exercises because she finds them strange Pain Score: 10/10 Pain Location: Leg - Left;Leg - Right (Right foot pain 6-7/10 if move or touch, pressure) Description: Stiffness Frequency: Continuous Post Treatment Pain Score: (patient feels less stiffness but can't rate w/ a number) OBJECTIVE MEASURES WITH LEVEL OF FUNCTION: Posture / Alignment Posture comment: sitting in w/c looking down at feet and R foot in plantar flexed and supinated position Functional Strength Transfers: Max x2 from mat table to w/c Wheelchair mobility: Independent in w/c propulsion TREATMENT: Therapeutic Exercise: 2: AROM DF/PF x20, Right 3: AROM Inv/Evr x20, R (small ROM) 4: PROM for DF/PF and Inver/Eversion 2x10 on R 5: AROM R ankle Eversion pressing into therapist hand and then therapist pressing foot into eversion 2x10 7: Supine heel slides 2x10, B 8: Supine hamstring contract/relax 10 sec holds, 3 sets of 3x on each side 10: Supine PROM hip IR/ER x20, B 15: B PROM for hip flexion, hip ER, knee flexion, DF of great toe x20 each side 18: Mobs for L and R hip anterior and lateral Grade II 3x10 each 19: Instructed patient in diaphragmatic breathing during PROM of leg and to keep her eyes closed and visual a place that is calming to her. Skilled Intervention: Patient was educated in proper exercise technique and purpose for exercises. Therapeutic Activity: 4: Sitting on edge of mat table shifting weight to R and L, Mod A (patient stated she was scared she would fall) Skilled Intervention: Proper patient guarding to prevent falls/increase patient safety with maximal assistance, moderate assistance to assist patient while performing trunk stability exercises Insured patient safety with use of gait belt Billing: [facility]: Therapeutic Exercise (24029): 1:1 time: 32 minutes (2 units: 23-37 mins) Therapeutic Activity (23044): 1:1 time: 8 minutes (1 unit: 8-22 mins) Total time: 40 minutes Madison Longoria PT PROGRESS Observed: 03/07/2018 Status: COMPLETED Source: [place] 10:54 AM [facility] REPOSITORY HNO ID: [id number] Author: Monica Brady Service: (none) Author Type: Physician Type: Progress Notes Filed: 03/09/2018 8:22 PM Note Text: Consultation requested by Solis Quezada for an opinion regarding deformity of right ankle. My final recommendations will be communicated back to the requesting physician by way of shared Medical record or letter to requesting physician via US mail. Initial Office Visit Subjective: This 77 year old female presents to clinic for diabetic foot check. Patient has the following complaints: chronic deformity of right ankle. Patient presents with daughter who reports that about 5-6 months ago, her right foot starting turing inward. As a result, she is unable to use this foot for propulsion. Per patient discussion, last March, she was admitted to hospital for diabetic ketoacidosis. In addition to dka, she had swelling of limb. Because of swelling of limb, she had difficulty walking. 5-6 months ago, her right foot started turning inward. She has been seen by neuro who ruled out any ms/stroke or neurologic etiology of her foot condition. When she walks, she is placing pressure on the outside of her foot. Patient admits to being diabetic for 11 years now and states that their blood sugar range from 80-120. Patient - B/T/N in feet at this time. No other pedal complaints at this time. No change in medications or medical history since last visit. PAIN EVALUATION 03/07/2018 Pain Score: 5 Pain Location: Foot-Right Description: Pressure Duration Amount of Time: 6 Duration Units: Months Frequency: Intermittent Intervention: Reposition No results found for: HBA1C PCP: No primary care provider on file. PAST MEDICAL HISTORY Diagnosis Date - DM type 1 (diabetes mellitus, type 1) ([facility]) - Hypothyroidism Current Outpatient Prescriptions: COMPOUNDED PRESCRIPTION 1 Wheelchair with removable foot rests.ICD 10: R53.1, M79.671, M21.6X1 blood sugar diagnostic (RELION PRIME TEST STRIPS) test strip Check blood sugar 4 times daily as intructed. Dx: E11.9. Insulin: yes Blood-Glucose Meter (RELION PRIME METER) misc 1 Each four times daily. Dx: E11.9. Insulin: yes insulin aspart U-100 (NOVOLOG FLEXPEN U-100 INSULIN) 100 unit/mL inpn 1 unit for 15 g of carbs with meals. insulin detemir U-100 (LEVEMIR FLEXTOUCH U-100 INSULN) 100 unit/mL (3 mL) inpn injection Inject 25 Units subcutaneously every morning. levothyroxine (SYNTHROID) 75 mcg tablet Take 1 tablet by mouth once daily. Take on empty stomach. For Thyroid aspirin 81 mg chewable tablet Take 1 tablet by mouth once daily. No current facility-administered medications for this visit. ALLERGIES No Known Allergies No past surgical history on file. No family history on file. Social History Marital status: Single Spouse name: Years of education: Number of children: Social History Main Topics Smoking status: Former Smoker Packs/day: 0.00 Years: 0.00 Smokeless tobacco: Never Used REVIEW OF SYSTEMS GENERAL: Negative for Malaise, significant weight loss, fever RESPIRATORY: Negative for cough, wheezing and shortness of breath CARDIOVASCULAR: Negative for chest pain, leg swelling and palpitations GI: Negative for abdominal discomfort, blood in stools or black stools and change in bowel habits : Negative for dysuria, frequency and incontinence MUSCULOSKELETAL: Positive for deformity of right foot SKIN: Negative for lesions, rash, and itching. HEMATOLOGY/LYMPHOLOGY Negative for prolonged bleeding, bruising easily, and swollen nodes. ENDOCRINE: Negative for cold or heat intolerance, polyuria, polydipsia and goiter. NEURO: negative The remainder of the review of systems is noncontributory. Objective: Patient presents to clinic ambulating in b/l surgical shoes Constitutional: Pt is a well developed 77 year old female who is alert, oriented, cooperative and in no apparent distress. Eyes: Following during examination. No redness or drainage. Respiratory: RR normal and nonlabored. Even breathing. No evidence of distress. Psychology: Patient is engaged during conversation. Normal affect and mood. Does not appear depressed or anxious. Vasc: DP and PT pulses are faint but biphasic with doppler bilateral. CFT is less than 5 seconds bilateral. Skin temperature is warm to cool proximal to distal bilateral. There is no edema or varicosities noted. Hair growth decreased. Neuro: Protective sensation is intact to the foot and toes when tested with the 5.07 SWM bilateral. Vibratory sensation is decreased at the hallux bilateral. + Significant neurological defecits. Derm: Inspection and palpation performed. Nails 1-5 b/l are normal in length and thickness. Skin is of normal turgor and texture. Hyperkeratosis noted to not present. There is superficial eschar noted to lateral aspect of right ankle Ortho: There is semi-rigid equinovarus deformity of right ankle. There is reducible equinovarus deformity of left ankle. Ankle joint DF is decreased b/l With knee in extension and flexed. Muscle strength of right lower extremity is 5/5 for plantarflexion, dorsiflexion, inversion. Eversion of right lower extremity is limited. Muscle strength left is 5/5 for dorsiflexors, plantarflexors, inverters, everters. xrays of right foot reviewed. 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 Patient was seen and evaluated. 2. Patient has very rigid equinovarus deformity of right lower extremity. Patient daughter reports that when mother is resting, the deformity is reducible but on exam, there is no reduction. I suspect this deformity to be mostly soft-tissue influenced. Patient daughter reports neurologic work-up was unremarkable. I discussed attempted bracing vs casting but I fear this may be difficult not to mention risk of wounds on the right lower extremity. Bracing may be an option for the left but I feel the right will be challenging. I am going to discuss continued rehab with our therapists. I will place order for bracing. I discussed the use of muscle relaxant but no guarantees regarding the effect of this was made. Surgical options may be an option pending past neuro work- up. I asked that past neuro work-up records be faxed to office for scanning. I am going to cc chart to colleague Dr. Ramiro Peñaloza and referral to his office made. 3. Patient was instructed on the continued importance of diabetic foot care along with proper diet and keeping their blood sugar under control to prevent complications. 4. Patient is to RTC in 3 weeks Monica Brady DPM PROGRESS Observed: 03/07/2018 Status: COMPLETED Source: [place] 10:43 AM [facility] REPOSITORY HNO ID: [id number] Author: Prerna Gallegos RN Service: (none) Author Type: (none) Type: Progress Notes Filed: 03/09/2018 8:22 PM Note Text: AMB ROOMING INTAKE FLOWSHEET DATA Risk Screening Do you have concerns about personal safety or safety in the home?: No Pain Pain Score: 5/10 Pain Location: Foot-Right Description: Pressure Duration Amount of Time: 6 Duration Units: Months Frequency: Intermittent Intervention: Reposition New patient presents with her daughter for evaluation of her R foot. She states that her foot has been turned inward for the past 5- 6 months. Patient has been in and out of hospitals and senior care facilities in the past year for DKA, frequent falls/fracture of breast bone. This was in [place], pt has since moved to [place] with her daughter. Daughter feels like pt's ROM and level of independence decreased while she was admitted to hospitals and SNFs last year. She states pt rarely got out of bed, pt used side of her R foot to propel herself and move around. Now foot is inverted and it is painful for pt to release foot back to neutral. She has XR to review. XR FOOT 3V AP/LAT/OBL Observed: 03/07/2018 Status: F Source: [facility] 10:35 [facility] REPOSITORY * * *Final Report* * * DATE OF EXAM: Mar 07 2018 10:35AM WRX [id number] - XR FOOT 3V AP/LAT/OBL RT / PROCEDURE REASON: Pain in right foot * * * * Physician Interpretation * * * * HISTORY: 77-YEAR-OLD FEMALE WITH Pain in right foot . right ankle frozen turn intward. patient couldn/t bear weight without pain everywhere TECHNIQUE: XR FOOT 3V AP/LAT/OBL RT Laterality: RIGHT Number of different views (projections): 4 COMPARISON: None RESULT: Equinovarus deformity. Osteopenia. Pes cavus. Incongruity of the talonavicular joint. Narrowing of first tarsometatarsal joint in the navicular medial cuneiform articulation and talonavicular joint. There is medial subluxation of the navicular relation to the talus. No definite fracture however there is significant overlap of multiple bones and ankle fracture of suspected can't BE excluded. IMPRESSION: EQUINOVARUS DEFORMITY WITH MIDFOOT DEGENERATIVE CHANGES.. Operational Risk Consultant: YOBANY Transcribe Date/Time: Mar 07 2018 5:11P Dictated by : CLARA EAST MD This examination was interpreted and the report reviewed and electronically signed by: CLARA EAST MD on Mar 07 2018 5:15PM EST [id number] [id number] Observed: 03/07/2018 Status: COMPLETED Source: [place] 10:15 AM [facility] REPOSITORY HNO ID: [id number] Author: Talia Ramirez Service: (none) Author Type: (none) Type: Progress Notes Filed: 03/07/2018 10:35 AM Note Text: Radiology Service Progress Note PATIENT NAME: Romain Mcdermott DATE OF SERVICE: March 07, 2018 TIME: 10:15 AM PATIENT IDENTITY VERIFICATION COMPLETED USING TWO (2) METHODS: Patient confirmed name verbally and Date of . PATIENT GENDER DATA: Female. status: : No status: NO. PATIENT RELEVANT IMPLANT DATA REVIEWED: Not Applicable RADIOLOGY DEPARTMENT: General X-ray: Exam(s) Completed: Lower Extremity X-Ray(s): Foot, Right and Wt. Bearing: PERIPHERAL IV DATA: Not applicable SIGNED BY: Talia Ramirez March 07, 2018 10:15 AM CNOV Observed: 03/07/2018 Status: COMPLETED Source: [place] 10:10 AM [facility] REPOSITORY Office Visit (PODIWS) ROMAIN MCDERMOTT ([id number]) 1940 F Date Time Provider Department 03/07/18 10:10 AM MONICA BRADY PODIWS During your visit today, we recorded the following information about you: Prerna Gallegos RN 03/09/2018 8:22 PM Signed AMB ROOMING INTAKE FLOWSHEET DATA Risk Screening Do you have concerns about personal safety or safety in the home?: No Pain Pain Score: 5/10 Pain Location: Foot-Right Description: Pressure Duration Amount of Time: 6 Duration Units: Months Frequency: Intermittent Intervention: Reposition New patient presents with her daughter for evaluation of her R foot. She states that her foot has been turned inward for the past 5-6 months. Patient has been in and out of hospitals and senior care facilities in the past year for DKA, frequent falls/fracture of breast bone. This was in [place], pt has since moved to [place] with her daughter. Daughter feels like pt's ROM and level of independence decreased while she was admitted to hospitals and SNFs last year. She states pt rarely got out of bed, pt used side of her R foot to propel herself and move around. Now foot is inverted and it is painful for pt to release foot back to neutral. She has XR to review. Monica Brady DPM 03/09/2018 8:22 PM Signed Consultation requested by Solis Quezada for an opinion regarding deformity of right ankle. My final recommendations will be communicated back to the requesting physician by way of shared Medical record or letter to requesting physician via US mail. Initial Office Visit Subjective: This 77 year old female presents to clinic for diabetic foot check. Patient has the following complaints: chronic deformity of right ankle. Patient presents with daughter who reports that about 5-6 months ago, her right foot starting turing inward. As a result, she is unable to use this foot for propulsion. Per patient discussion, last March, she was admitted to hospital for diabetic ketoacidosis. In addition to dka, she had swelling of limb. Because of swelling of limb, she had difficulty walking. 5-6 months ago, her right foot started turning inward. She has been seen by neuro who ruled out any ms/stroke or neurologic etiology of her foot condition. When she walks, she is placing pressure on the outside of her foot. Patient admits to being diabetic for 11 years now and states that their blood sugar range from 80-120. Patient - B/T/N in feet at this time. No other pedal complaints at this time. No change in medications or medical history since last visit. PAIN EVALUATION 03/07/2018 Pain Score: 5 Pain Location: Foot-Right Description: Pressure Duration Amount of Time: 6 Duration Units: Months Frequency: Intermittent Intervention: Reposition No results found for: HBA1C PCP: No primary care provider on file. PAST MEDICAL HISTORY Diagnosis Date - DM type 1 (diabetes mellitus, type 1) ([facility]) - Hypothyroidism Current Outpatient Prescriptions: COMPOUNDED PRESCRIPTION 1 Wheelchair with removable foot rests.ICD 10: R53.1, M79.671, M21.6X1 blood sugar diagnostic (RELION PRIME TEST STRIPS) test strip Check blood sugar 4 times daily as intructed. Dx: E11.9. Insulin: yes Blood-Glucose Meter (RELION PRIME METER) misc 1 Each four times daily. Dx: E11.9. Insulin: yes insulin aspart U-100 (NOVOLOG FLEXPEN U-100 INSULIN) 100 unit/mL inpn 1 unit for 15 g of carbs with meals. insulin detemir U-100 (LEVEMIR FLEXTOUCH U-100 INSULN) 100 unit/mL (3 mL) inpn injection Inject 25 Units subcutaneously every morning. levothyroxine (SYNTHROID) 75 mcg tablet Take 1 tablet by mouth once daily. Take on empty stomach. For Thyroid aspirin 81 mg chewable tablet Take 1 tablet by mouth once daily. No current facility-administered medications for this visit. ALLERGIES No Known Allergies No past surgical history on file. No family history on file. Social History Marital status: Single Spouse name: Years of education: Number of children: Social History Main Topics Smoking status: Former Smoker Packs/day: 0.00 Years: 0.00 Smokeless tobacco: Never Used REVIEW OF SYSTEMS GENERAL: Negative for Malaise, significant weight loss, fever RESPIRATORY: Negative for cough, wheezing and shortness of breath CARDIOVASCULAR: Negative for chest pain, leg swelling and palpitations GI: Negative for abdominal discomfort, blood in stools or black stools and change in bowel habits : Negative for dysuria, frequency and incontinence MUSCULOSKELETAL: Positive for deformity of right foot SKIN: Negative for lesions, rash, and itching. HEMATOLOGY/LYMPHOLOGY Negative for prolonged bleeding, bruising easily, and swollen nodes. ENDOCRINE: Negative for cold or heat intolerance, polyuria, polydipsia and goiter. NEURO: negative The remainder of the review of systems is noncontributory. Objective: Patient presents to clinic ambulating in b/l surgical shoes Constitutional: Pt is a well developed 77 year old female who is alert, oriented, cooperative and in no apparent distress. Eyes: Following during examination. No redness or drainage. Respiratory: RR normal and nonlabored. Even breathing. No evidence of distress. Psychology: Patient is engaged during conversation. Normal affect and mood. Does not appear depressed or anxious. Vasc: DP and PT pulses are faint but biphasic with doppler bilateral. CFT is less than 5 seconds bilateral. Skin temperature is warm to cool proximal to distal bilateral. There is no edema or varicosities noted. Hair growth decreased. Neuro: Protective sensation is intact to the foot and toes when tested with the 5.07 SWM bilateral. Vibratory sensation is decreased at the hallux bilateral. + Significant neurological defecits. Derm: Inspection and palpation performed. Nails 1-5 b/l are normal in length and thickness. Skin is of normal turgor and texture. Hyperkeratosis noted to not present. There is superficial eschar noted to lateral aspect of right ankle Ortho: There is semi-rigid equinovarus deformity of right ankle. There is reducible equinovarus deformity of left ankle. Ankle joint DF is decreased b/l With knee in extension and flexed. Muscle strength of right lower extremity is 5/5 for plantarflexion, dorsiflexion, inversion. Eversion of right lower extremity is limited. Muscle strength left is 5/5 for dorsiflexors, plantarflexors, inverters, everters. xrays of right foot reviewed. 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 Patient was seen and evaluated. 2. Patient has very rigid equinovarus deformity of right lower extremity. Patient daughter reports that when mother is resting, the deformity is reducible but on exam, there is no reduction. I suspect this deformity to be mostly soft-tissue influenced. Patient daughter reports neurologic work-up was unremarkable. I discussed attempted bracing vs casting but I fear this may be difficult not to mention risk of wounds on the right lower extremity. Bracing may be an option for the left but I feel the right will be challenging. I am going to discuss continued rehab with our therapists. I will place order for bracing. I discussed the use of muscle relaxant but no guarantees regarding the effect of this was made. Surgical options may be an option pending past neuro work-up. I asked that past neuro work-up records be faxed to office for scanning. I am going to cc chart to colleague Dr. Ramiro Peñaloza and referral to his office made. 3. Patient was instructed on the continued importance of diabetic foot care along with proper diet and keeping their blood sugar under control to prevent complications. 4. Patient is to RTC in 3 weeks EDUARDO Jean Ma 03/07/2018 11:[address] Ramiro Peñaloza's office will call to schedule Continue physical therapy [facility] Please call to schedule appointment [place] [address] [facility] [address] PH: [phone] [place] [address] [facility] [address], [facility] [address] PH: [phone] [place] [address] [facility] [address] PH: [phone] [place] [address], [facility] [address] PH: [phone] or [phone] [place] [address] [address] , [facility] [address] PH: [phone] [place] [address] [facility] [address] PH: [phone] Referring Provider: MADISON LONGORIA (PT) [[id number]] Allergies As of Date: 03/07/2018 (No Known Allergies) Date Reviewed: 03/07/2018 Reviewed by: Prerna Gallegos RN - Fully Assessed Reason for Visit: New Patient [172] Primary Visit Diagnosis:Equinovarus acquired deformity, right [M21.541] Other Visit Diagnoses:Other diabetic neurological complication associated with type 2 diabetes mellitus (HCC) [E11.49] Equinovarus acquired deformity, left [M21.542] Order(s):CONSULT TO PHYSICAL THERAPY [90] Order #: [id number]: 1 CONSULT TO ORTHOPAEDICS [9025] Order #: [id number]: 1 cyclobenzaprine (FLEXERIL) 10 mg tabletTake 1 tablet by mouth once daily.Disp: 30 tabletRfl: 1 CONSULT TO ORTHOTIC/PROSTHETIC [19990622] Order #: [id number]: 1 Prescriptions as of 03/07/2018 Sig: COMPOUNDED PRESCRIPTION 1 Wheelchair with removable f* BLOOD SUGAR DIAGNOSTIC STRIPS Check blood sugar 4 times nenita* BLOOD-GLUCOSE METER 1 Each four times daily. Dx: * INSULIN ASPART U-100 100 UNI* 1 unit for 15 g of carbs with* INSULIN DETEMIR (U-100) 100 U* Inject 25 Units subcutaneousl* LEVOTHYROXINE 75 MCG TABLET Take 1 tablet by mouth once d* ASPIRIN 81 MG CHEWABLE TABLET Take 1 tablet by mouth once d* CYCLOBENZAPRINE 10 MG TABLET Take 1 tablet by mouth once d* Problem List As Of Date 03/07/2018 Noted Resolved Hypothyroidism, acquired [E03.9] INVALID FOR* Hypothyroidism [E03.9] Pain in right foot [M79.671] INVALID FOR* Pain in left hip [M25.552] INVALID FOR* Pain in right hip [M25.551] INVALID FOR* Hip contracture, right [M24.551] INVALID FOR* Hip contracture, left [M24.552] INVALID FOR* Generalized anxiety disorder [F41.1] INVALID FOR* Diabetes mellitus type 1, controlled, without c*INVALID FOR* Other instructions from your clinician: Dr. Ramiro Peñaloza's office will call to schedule Continue physical therapy [facility] Please call to schedule appointment [place] [facility], [place] [address] PH: [phone], [facility] [address] PH: [phone] [place] [address] [facility] [address] PH: [phone] [place] [address] [address] PH: [phone] or [phone] [place] [address] [facility] [address] PH: [phone] [place] [address] [facility] [address] PH: [phone] Prescriptions ordered this encounter Disp Refills Start End CYCLOBENZAPRINE 10 MG TABLET 30 t* 1 03/07/2018 04/06/2018 Route: ORAL Sig: Take 1 tablet by mouth once daily. Follow-up and Disposition History Recorded Encounter Status:Closed by MONICA BRADY DPM on 03/09/18 CNTHERAPY Observed: 03/06/2018 Status: COMPLETED Source: [place] 12:30 PM [facility] REPOSITORY OT/PT/Speech Visit (PTWS) ROMAIN MCDERMOTT ([id number]) 1940 F Date Time Provider Department 03/06/18 12:30 PM MADISON LONGORIA (PT) PTWS Date Time Provider Department Center 03/06/2018 12:30 PM [id number], DIANA (PT)PTWS [facility] Reason for Visit: Physical Therapy [503] Primary Visit Diagnosis:Pain in right foot [M79.671] Other Visit Diagnoses:Generalized anxiety disorder [F41.1] Hip contracture, right [M24.551] Hip contracture, left [M24.552] Allergies As of Date: 03/06/2018 (No Known Allergies) Date Reviewed: 01/07/2018 Reviewed by: Solis Vogel) Pilar - Fully Assessed Prescriptions as of 03/06/2018 Sig: COMPOUNDED PRESCRIPTION 1 Wheelchair with removable f* BLOOD SUGAR DIAGNOSTIC STRIPS Check blood sugar 4 times nenita* BLOOD-GLUCOSE METER 1 Each four times daily. Dx: * INSULIN ASPART U-100 100 UNI* 1 unit for 15 g of carbs with* INSULIN DETEMIR (U-100) 100 U* Inject 25 Units subcutaneousl* LEVOTHYROXINE 75 MCG TABLET Take 1 tablet by mouth once d* ASPIRIN 81 MG CHEWABLE TABLET Take 1 tablet by mouth once d* Progress Notes: Madison Longoria PT 03/09/2018 2:50 PM Signed Episode Visit Count: 10 Therapist That Will Oversee The Plan Of Care: Madison Longoria PT Start of Care Date: 01/13/18 Onset Date: 01/17/17 Plan of Care Certification Date: 01/13/18 Patient Identified by Name and Date of : Yes REHABILITATION AND SPORTS THERAPY PHYSICAL THERAPY TREATMENT NOTE ASSESSMENT: Romain Mcdermott demonstrated difficulty with more independent transfers on her own due to set up of w/c. They now have a script from Solis Quezada for a w/c. Will be seeing Dr. Brady tomorrow. Patient continues to present with a R foot that is plantar flexed and inverted. The patient will continue to benefit from continued skilled physical therapy for ther ex and ther activities. Patient with fair follow through with exercise at home. PLAN FOR NEXT VISIT: Stretch patient out on table, Trunk stability sitting, STS and standing in // bars. Dr. Brady Visit 03/07/18. POC update: 03/11/18 G codes done 03/04/18 SUBJECTIVE: Has never has a w/c or walker covered through insurance, so should not have a problem. Daughter has seen her mom do more since last visit. Will be seeing Dr. Brady on Saturday. Patient states she doesn't do her exercises because she finds them strange Pain Score: 10/10 Pain Location: Leg - Left;Leg - Right (Right foot pain 6-7/10 if move or touch, pressure) Description: Stiffness Frequency: Continuous Post Treatment Pain Score: (patient feels less stiffness but can't rate w/ a number) OBJECTIVE MEASURES WITH LEVEL OF FUNCTION: Posture / Alignment Posture comment: sitting in w/c looking down at feet and R foot in plantar flexed and supinated position Functional Strength Transfers: Max x2 from mat table to w/c Wheelchair mobility: Independent in w/c propulsion TREATMENT: Therapeutic Exercise: 2: AROM DF/PF x20, Right 3: AROM Inv/Evr x20, R (small ROM) 4: PROM for DF/PF and Inver/Eversion 2x10 on R 5: AROM R ankle Eversion pressing into therapist hand and then therapist pressing foot into eversion 2x10 7: Supine heel slides 2x10, B 8: Supine hamstring contract/relax 10 sec holds, 3 sets of 3x on each side 10: Supine PROM hip IR/ER x20, B 15: B PROM for hip flexion, hip ER, knee flexion, DF of great toe x20 each side 18: Mobs for L and R hip anterior and lateral Grade II 3x10 each 19: Instructed patient in diaphragmatic breathing during PROM of leg and to keep her eyes closed and visual a place that is calming to her. Skilled Intervention: Patient was educated in proper exercise technique and purpose for exercises. Therapeutic Activity: 4: Sitting on edge of mat table shifting weight to R and L, Mod A (patient stated she was scared she would fall) Skilled Intervention: Proper patient guarding to prevent falls/increase patient safety with maximal assistance, moderate assistance to assist patient while performing trunk stability exercises Insured patient safety with use of gait belt Billing: [facility]: Therapeutic Exercise ([id number]): 1:1 time: 32 minutes (2 units: 23-37 mins) Therapeutic Activity ([id number]): 1:1 time: 8 minutes (1 unit: 8-22 mins) Total time: 40 minutes Madison Longoria PT PROGRESS Observed: 03/04/2018 Status: COMPLETED Source: [place] 3:25 PM [facility] HNO ID: [id number] Author: Madison Longoria Service: (none) Author Type: Physical Therapist Type: Progress Notes Filed: 03/05/2018 12:46 PM Note Text: Episode Visit Count: 9 Therapist That Will Oversee The Plan Of Care: Madison Longoria PT Start of Care Date: 01/13/18 Onset Date: 01/17/17 Plan of Care Certification Date: 01/13/18 Patient Identified by Name and Date of : Yes REHABILITATION AND SPORTS THERAPY PHYSICAL THERAPY TREATMENT NOTE ASSESSMENT: Romain Mcdermott demonstrated better ability to only require Min A standing in up from w/c to // and standing. She has great difficulty placing weight through her R foot/R ankle. Recommended she get an evaluation from Dr. Brady and perhaps imaging to determine if there is anything we need to be aware of that we may be missing. Patient stated she was told in the past the R foot/R ankle is the way it is due to old age. Patient is not doing her exercises at home she was given at PT. Reached out to Solis Quezada CNP to place an order for w/c with removable foot rests as the current w/c patient is in is more of a transfer w/c without removable foot rests as a w/c with removable foot rests may improve patient's ability to transfer more independently as her daughter, Nyla, fell on her tailbone last week transferring her mom. The patient may continue to benefit from continued skilled physical therapy for transfers, LE ROM, LE strengthening, and gait. PLAN FOR NEXT VISIT: Stretch patient out on table, Trunk stability sitting, STS and standing in // bars. Dr. Brady Visit 03/07/18. POC update: 03/11/18 G codes done 03/04/18 SUBJECTIVE: Daughter, Nyla, stated they didn't realize they had two PT visits last week. Daughter would like Mom to be seen more frequently in PT as her mom is not doing her exercises at home and becoming combative with daughter when she tries to help her with her exercises. Patient states she doesn't do her exercises because it causes her pain. Patient talks about all the therapy she has had over the past year and how she would do 30 reps of exercises everyday in the senior care facility., Daughter states she fell and landed on her tailbone when transfering her mom as her mom was falling and she went to catch her, and Nyla fell on her tailbone and broke her tailbone. Pain Score: 6/10 Pain Location: Foot - Right Description: Pressure Frequency: Continuous OBJECTIVE MEASURES WITH LEVEL OF FUNCTION: Posture / Alignment Posture: Comments Posture comment: sitting in w/c looking down at feet and R foot in plantar flexed and supinated position TREATMENT: Therapeutic Exercise: 2: AROM DF/PF x20, Right 3: AROM Inv/Evr x20, R 4: PROM for DF/PF and Inver/Eversion 2x10 on R 6: Sitting in w/c knee bends with assist from PT 2x10 19: Seated Diaphragmatic breathing 2x10 and visualization she is in a happy place and can see her foot flat on the ground. Skilled Intervention: Patient was educated in proper exercise technique and purpose for exercises. Skilled judgment was provided in selection of appropriate interventions. Talked to patient about the importance of doing her exercises. Asked her if she wanted to get better, and she does. Then she proceeds to tell me what she did in the group home months ago. Redirected patient to focus on the here and now and improve what she is able to improve. Recommended she have an evaluation with Dr. Brady to examine her R ankle/R foot to get imaging or other suggestions. Therapeutic Activity: 7: Standing for 10 minutes in // bar with B UE support Min Assistance from sit to stand from w/c and then Min A once standing. Constant cueing to stand tall and look up at PT and place weight through L LE. 8: STS in // bars x10 with B UE support. Min A to stand 9: Asked if patient wanted to try walking and she declined Skilled Intervention: Activity progression based on professional judgment. Message sent to Solis Quezada CNP to place an order for a w/c with removeable foot rests. Billing: [facility]: Therapeutic Exercise ([id number]): 1:1 time: 27 minutes (2 units: 23-37 mins) Therapeutic Activity ([id number]): 1:1 time: 15 minutes (1 unit: 8-22 mins) Total time: 42 minutes Madison Longoria PT CNTHERAPY Observed: 03/04/2018 Status: COMPLETED Source: [place] 12:30 PM [facility] OT/PT/Speech Visit (PTWS) ROMAIN MCDERMOTT ([id number]) 1940 F Date Time Provider Department 03/04/18 12:30 PM MADISON LONGORIA (PT) PTJACLYN Date Time Provider Department Center 03/04/2018 12:30 PM [id number], DIANA (PT)PTWS [facility] Reason for Visit: Physical Therapy [503] Primary Visit Diagnosis:Pain in right foot [M79.671] Other Visit Diagnoses:Generalized anxiety disorder [F41.1] Hip contracture, 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 Dx: * INSULIN ASPART U-100 100 UNI* 1 unit for 15 g of carbs with* INSULIN DETEMIR (U-100) 100 U* Inject 25 Units subcutaneousl* LEVOTHYROXINE 75 MCG TABLET Take 1 tablet by mouth once d* ASPIRIN 81 MG CHEWABLE TABLET Take 1 tablet by mouth once d* Progress Notes: Madison Longoria PT 03/05/2018 12:46 PM Signed Episode Visit Count: 9 Therapist That Will Oversee The Plan Of Care: Madison Longoria PT Start of Care Date: 01/13/18 Onset Date: 01/17/17 Plan of Care Certification Date: 01/13/18 Patient Identified by Name and Date of : Yes REHABILITATION AND SPORTS THERAPY PHYSICAL THERAPY TREATMENT NOTE ASSESSMENT: Romain Mcdermott demonstrated better ability to only require Min A standing in up from w/c to // and standing. She has great difficulty placing weight through her R foot/R ankle. Recommended she get an evaluation from Dr. Brady and perhaps imaging to determine if there is anything we need to be aware of that we may be missing. Patient stated she was told in the past the R foot/R ankle is the way it is due to old age. Patient is not doing her exercises at home she was given at PT. Reached out to Solis Quezada CNP to place an order for w/c with removable foot rests as the current w/c patient is in is more of a transfer w/c without removable foot rests as a w/c with removable footrests may improve patient's ability to transfer more independently as her daughter, Nyla, fell on her tailbone last week transferring her mom. The patient may continue to benefit from continued skilled physical therapy for transfers, LE ROM, LE strengthening, and gait. PLAN FOR NEXT VISIT: Stretch patient out on table, Trunk stability sitting, STS and standing in // bars. Dr. Brady Visit 03/07/18. POC update: 03/11/18 G codes done 03/04/18 SUBJECTIVE: Daughter, Nyla, stated they didn't realize they had two PT visits last week. Daughter would like Mom to be seen more frequently in PT as her mom is not doing her exercises at home and becoming combative with daughter when she tries to help her with her exercises. Patient states she doesn't do her exercises because it causes her pain. Patient talks about all the therapy she has had over the past year and how she would do 30 reps of exercises everyday in the senior care facility., Daughter states she fell and landed on her tailbone when transfering her mom as her mom was falling and she went to catch her, and Nyla fell on her tailbone and broke her tailbone. Pain Score: 6/10 Pain Location: Foot - Right Description: Pressure Frequency: Continuous OBJECTIVE MEASURES WITH LEVEL OF FUNCTION: Posture / Alignment Posture: Comments Posture comment: sitting in w/c looking down at feet and R foot in plantar flexed and supinated position TREATMENT: Therapeutic Exercise: 2: AROM DF/PF x20, Right 3: AROM Inv/Evr x20, R 4: PROM for DF/PF and Inver/Eversion 2x10 on R 6: Sitting in w/c knee bends with assist from PT 2x10 19: Seated Diaphragmatic breathing 2x10 and visualization she is in a happy place and can see her foot flat on the ground. Skilled Intervention: Patient was educated in proper exercise technique and purpose for exercises. Skilled judgment was provided in selection of appropriate interventions. Talked to patient about the importance of doing her exercises. Asked her if she wanted to get better, and she does. Then she proceeds to tell me what she did in the group home months ago. Redirected patient to focus on the here and now and improve what she is able to improve. Recommended she have an evaluation with Dr. Brady to examine her R ankle/R foot to get imaging or other suggestions. Therapeutic Activity: 7: Standing for 10 minutes in // bar with B UE support Min Assistance from sit to stand from w/c and then Min A once standing. Constant cueing to stand tall and look up at PT and place weight through L LE. 8: STS in // bars x10 with B UE support. Min A to stand 9: Asked if patient wanted to try walking and she declined Skilled Intervention: Activity progression based on professional judgment. Message sent to Solis Quezada CNP to place an order for a w/c with removeable foot rests. Billing: [facility]: Therapeutic Exercise ([id number]): 1:1 time: 27 minutes (2 units: 23-37 mins) Therapeutic Activity ([id number]): 1:1 time: 15 minutes (1 unit: 8-22 mins) Total time: 42 minutes Madison Longoria PT Follow-up and Disposition History Recorded PROGRESS Observed: 02/25/2018 Status: COMPLETED Source: [place] 6:54 AM [facility] O ID: [id number] Author: Madison (PtJody Longoria Service: (none) Author Type: Physical Therapist Type: Progress Notes Filed: 02/25/2018 7:01 AM Note Text: Episode Visit Count: 8 Therapist That Will Oversee The Plan Of Care: Madison Longoria PT Start of Care Date: 01/13/18 Onset Date: 01/17/17 Plan of Care Certification Date: 01/13/18 Patient Identified by Name and Date of : Yes REHABILITATION AND SPORTS THERAPY PHYSICAL THERAPY TREATMENT NOTE ASSESSMENT: Romain Hickman Baldemar demonstrated improvements in being able to place more weight through L LE and require less assistance with transfers. Used Mod A x2 this date to ensure safety transferring from mat table to w/c. Patient continues to have a PF and inverted R foot but seemed to be better than at last visit. The patient will continue to benefit from continued skilled physical therapy for ROM of hips and knees, trunk activities, and weight bearing activities in the // bars. PLAN FOR NEXT VISIT: stretch patient out on mat table, trunk stability, // STS SUBJECTIVE: Daughter Nyla states her mom is standing up from W/C and transfering to lounge chair but needs help getting up from the lounge chair because it is too low. When tolieting she is able to stand up and pull pants up and down. Daughter states she found her mom had 20-30 sugar level and was unable to speak. Had her drink OJ and blood sugar went to 71 and then had her eat a high protein wrap. Daughter stated her mom looked like she had a stroke as her face went numb. Pain Score: (not rated) Post Treatment Pain Score: (not rated) OBJECTIVE MEASURES WITH LEVEL OF FUNCTION: Posture / Alignment LE Observations: Arrived in w/c with slightly PF and Inversion of R foot on foot rest. LE AROM R Knee Extension: -7 Degrees R Knee Flexion: 111 Degrees L Knee Extension: -7 Degrees L Knee Flexion: 121 Degrees LE PROM R Ankle Inversion: 30 Degrees (stuck in this position) Sitting posture: patient needed Max assistance to try to sit upright TREATMENT: Therapeutic Exercise: 2: AROM DF/PF x20, B 3: AROM Inv/Evr x20, B 4: PROM for DF/PF and Inver/Eversion 2x10 on L 5: AROM L ankle Eversion pressing into therapist hand 2x10 7: Supine heel slides 3x10, B 8: Supine hamstring contract/relax 10 sec holds, 3 sets of 3x each on R side 9: Supine hip ABD 3x10, B 10: Supine PROM hip IR/ER x20, B (better after performing hip mobs first) 12: Supine Quad sets 3x10, 5 sec holds 14: *AROM for lumbar rotation x10 sec holds, 6x each direction 15: B PROM for hip flexion, hip ER, knee flexion, DF of great toe x20 each side 16: *Hooklying hip ADD with green bolster x30, 5 sec holds 17: Transfering from mat table to w/c Mod A x2. Patient did a better job placing weight through her L foot. 18: Mobs for L and R hip anterior and lateral Grade II 3x10 each Skilled Intervention: Patient was educated in proper exercise technique and purpose for exercises. Skilled judgment was provided in selection of appropriate interventions. Billing:[facility]: Therapeutic Exercise ([id number]): 1:1 time: 42 minutes (3 units: 38-52 mins) Total time: 42 minutes Madison Longoria PT, DPT, CLT CNTHERAPY Observed: 02/21/2018 Status: COMPLETED Source: [place] 12:30 PM [facility] OT/PT/Speech Visit (PTWS) ROMAIN MCDERMOTT ([id number]) 1940 F Date Time Provider Department 02/21/18 12:30 PM MADISON LONGORIA (PT) PTWS Date Time Provider Department Center 02/21/2018 12:30 PM [id number], DIANA (PT)PTWS [facility] Reason for Visit: Physical Therapy [503] Primary Visit Diagnosis:Pain in right foot [M79.671] Other Visit Diagnoses:Generalized anxiety disorder [F41.1] Hip contracture, 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 Dx: * INSULIN ASPART U-100 100 UNI* 1 unit for 15 g of carbs with* INSULIN DETEMIR (U-100) 100 U* Inject 25 Units subcutaneousl* LEVOTHYROXINE 75 MCG TABLET Take 1 tablet by mouth once d* ASPIRIN 81 MG CHEWABLE TABLET Take 1 tablet by mouth once d* Progress Notes: Madison Longoria PT 02/25/2018 7:01 AM Signed Episode Visit Count: 8 Therapist That Will Oversee The Plan Of Care: Madison Longoria PT Start of Care Date: 01/13/18 Onset Date: 01/17/17 Plan of Care Certification Date: 01/13/18 Patient Identified by Name and Date of : Yes REHABILITATION AND SPORTS THERAPY PHYSICAL THERAPY TREATMENT NOTE ASSESSMENT: Romain Mcdermott demonstrated improvements in being able to place more weight through L LE and require less assistance with transfers. Used Mod A x2 this date to ensure safety transferring from mat table to w/c. Patient continues to have a PF and inverted R foot but seemed to be better than at last visit. The patient will continue to benefit from continued skilled physical therapy for ROM of hips and knees, trunk activities, and weight bearing activities in the // bars. PLAN FOR NEXT VISIT: stretch patient out on mat table, trunk stability, // STS SUBJECTIVE: Daughter Nyla states her mom is standing up from W/C and transfering to lounge chair but needs help getting up from the lounge chair because it is too low. When tolieting she is able to stand up and pull pants up and down. Daughter states she found her mom had 20-30 sugar level and was unable to speak. Had her drink OJ and blood sugar went to 71 and then had her eat a high protein wrap. Daughter stated her mom looked like she had a stroke as her face went numb. Pain Score: (not rated) Post Treatment Pain Score: (not rated) OBJECTIVE MEASURES WITH LEVEL OF FUNCTION: Posture / Alignment LE Observations: Arrived in w/c with slightly PF and Inversion of R foot on foot rest. LE AROM R Knee Extension: -7 Degrees R Knee Flexion: 111 Degrees L Knee Extension: -7 Degrees L Knee Flexion: 121 Degrees LE PROM R Ankle Inversion: 30 Degrees (stuck in this position) Sitting posture: patient needed Max assistance to try to sit upright TREATMENT: Therapeutic Exercise: 2: AROM DF/PF x20, B 3: AROM Inv/Evr x20, B 4: PROM for DF/PF and Inver/Eversion 2x10 on L 5: AROM L ankle Eversion pressing into therapist hand 2x10 7: Supine heel slides 3x10, B 8: Supine hamstring contract/relax 10 sec holds, 3 sets of 3x each on R side 9: Supine hip ABD 3x10, B 10: Supine PROM hip IR/ER x20, B (better after performing hip mobs first) 12: Supine Quad sets 3x10, 5 sec holds 14: *AROM for lumbar rotation x10 sec holds, 6x each direction 15: B PROM for hip flexion, hip ER, knee flexion, DF of great toe x20 each side 16: *Hooklying hip ADD with green bolster x30, 5 sec holds 17: Transfering from mat table to w/c Mod A x2. Patient did a better job placing weight through her L foot. 18: Mobs for L and R hip anterior and lateral Grade II 3x10 each Skilled Intervention: Patient was educated in proper exercise technique and purpose for exercises. Skilled judgment was provided in selection of appropriate interventions. Billing:[facility]: Therapeutic Exercise ([id number]): 1:1 time: 42 minutes (3 units: 38-52 mins) Total time: 42 minutes Madison Longoria PT, DPT, CLT PROGRESS Observed: 02/20/2018 Status: COMPLETED Source: [place] 7:14 AM [facility] HNO ID: [id number] Author: Madison Longoria Service: (none) Author Type: Physical Therapist Type: Progress Notes Filed: 02/20/2018 7:23 AM Note Text: Episode Visit Count: 7 Therapist That Will Oversee The Plan Of Care: Madison Longoria PT Start of Care Date: 01/13/18 Onset Date: 01/17/17 Plan of Care Certification Date: 01/13/18 Patient Identified by Name and Date of : Yes REHABILITATION AND SPORTS THERAPY PHYSICAL THERAPY TREATMENT NOTE ASSESSMENT: Romain Mcdermott demonstrated improvements in B knee extension. She seems to be regressing and having more PF and Inversion of her L foot. The patient will continue to benefit from continued skilled physical therapy for ROM of knees and hips, improving posture and more assistance with transfers. PLAN FOR NEXT VISIT: Next visit give a handout for lumbar ROM. Try Hip ADD. SUBJECTIVE: Patient took 3 ibuprofen before session because that is what she did in the group home. She feels weakness in her knees when standing. Pain Score: 3/10 Pain Location: Foot - Right Description: Pressure Frequency: Continuous Post Treatment Pain Score: (not rated) OBJECTIVE MEASURES WITH LEVEL OF FUNCTION: Posture / Alignment LE Observations: Arrived in w/c with increased PF and Inversion of foot on foot rest. LE AROM R Hip ABduction: 22 Degrees R Knee Extension: -5 Degrees L Hip ABduction : 25 Degrees L Knee Extension: -4 Degrees TREATMENT: Therapeutic Exercise: 2: AROM DF/PF x20, B 3: AROM Inv/Evr x20, B 4: PROM for DF/PF and Inver/Eversion 2x10 on L 5: AROM L ankle Eversion pressing into therapist hand 2x10 7: Supine heel slides 3x10, B 8: Supine hamstring contract/relax 10 sec holds, 3 sets of 3x each on R side 9: Supine hip ABD 3x10, B 10: Supine PROM hip IR/ER x20, B 12: Supine Quad sets 3x10, 5 sec holds 14: PROM for lumbar rotation x10 each direction 15: B PROM for hip flexion, hip ER, knee flexion, DF of great toe x15 each side Skilled Intervention: Patient was educated in proper exercise technique and purpose for exercises. Skilled judgment was provided in selection of appropriate interventions. Provided handout for exercises she should perform 2x a day: DF/PF/Inver/Ever of ankles, Quad sets, Hip ABD, Heel slides, and sitting with good posture, and placing a towel on the lateral side of foot to help limited PF and Inversion of foot to promote more eversion and DF of L foot. Therapeutic Activity: 6: Transfer from w/c to mat table Max A x1 with no weight placed through L LE (Cues given to place weight through leg) 7: Standing for 8 minutes in // bar with B UE support Moderate to Min Assistance. Constant cueing to stand tall and look up at PT name tag, Look at picture kandice on the wall. Therapist helping to keep R foot as flat as able. 8: STS in // bars 2x5 with B UE support 9: Walking 3 feet in // bars with B UE and Max assistance. Constant cuing to stand tall and put weight through L LE and keep R foot flat 10: placing a towel on the lateral side of L foot to help limited PF and Inversion of foot to promote more eversion and DF of L foot. Skilled Intervention: Proper patient guarding to prevent falls/increase patient safety with maximal assistance, moderate assistance to assist patient while performing STS and Walking Insured patient safety with use of gait belt Billing: [facility]: Therapeutic Exercise ([id number]): 1:1 time: 30 minutes (2 units: 23-37 mins) Therapeutic Activity ([id number]): 1:1 time: 30 minutes (2 units: 23-37 mins) Total time: 60 minutes Madison Longoria PT CNTHERAPY Observed: 02/18/2018 Status: COMPLETED Source: [place] 12:30 PM [facility] REPOSITORY OT/PT/Speech Visit (PTWS) ROMAIN MCDERMOTT ([id number]) 1940 F Date Time Provider Department 02/18/18 12:30 PM MADISON LONGORIA (PT) PTWS Date Time Provider Department Center 02/18/2018 12:30 PM [id number], DIANA (PT)PTWS [facility] Reason for Visit: PT Progress Note [1596] Primary Visit Diagnosis:Pain in right foot [M79.671] Other Visit Diagnoses:Generalized anxiety disorder [F41.1] Hip contracture, 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 Dx: * INSULIN ASPART U-100 100 UNI* 1 unit for 15 g of carbs with* INSULIN DETEMIR (U-100) 100 U* Inject 25 Units subcutaneousl* LEVOTHYROXINE 75 MCG TABLET Take 1 tablet by mouth once d* ASPIRIN 81 MG CHEWABLE TABLET Take 1 tablet by mouth once d* Progress Notes: Madison Longoria PT 02/20/2018 7:23 AM Signed Episode Visit Count: 7 Therapist That Will Oversee The Plan Of Care: Maidson Longoria PT Start of Care Date: 01/13/18 Onset Date: 01/17/17 Plan of Care Certification Date: 01/13/18 Patient Identified by Name and Date of : Yes REHABILITATION AND SPORTS THERAPY PHYSICAL THERAPY TREATMENT NOTE ASSESSMENT: Romain Mcdermott demonstrated improvements in B knee extension. She seems to be regressing and having more PF and Inversion of her L foot. The patient will continue to benefit from continued skilled physical therapy for ROM of knees and hips, improving posture and more assistance with transfers. PLAN FOR NEXT VISIT: Next visit give a handout for lumbar ROM. Try Hip ADD. SUBJECTIVE: Patient took 3 ibuprofen before session because that is what she did in the group home. She feels weakness in her knees when standing. Pain Score: 3/10 Pain Location: Foot - Right Description: Pressure Frequency: Continuous Post Treatment Pain Score: (not rated) OBJECTIVE MEASURES WITH LEVEL OF FUNCTION: Posture / Alignment LE Observations: Arrived in w/c with increased PF and Inversion of foot on foot rest. LE AROM R Hip ABduction: 22 Degrees R Knee Extension: -5 Degrees L Hip ABduction : 25 Degrees L Knee Extension: -4 Degrees TREATMENT: Therapeutic Exercise: 2: AROM DF/PF x20, B 3: AROM Inv/Evr x20, B 4: PROM for DF/PF and Inver/Eversion 2x10 on L 5: AROM L ankle Eversion pressing into therapist hand 2x10 7: Supine heel slides 3x10, B 8: Supine hamstring contract/relax 10 sec holds, 3 sets of 3x each on R side 9: Supine hip ABD 3x10, B 10: Supine PROM hip IR/ER x20, B 12: Supine Quad sets 3x10, 5 sec holds 14: PROM for lumbar rotation x10 each direction 15: B PROM for hip flexion, hip ER, knee flexion, DF of great toe x15 each side Skilled Intervention: Patient was educated in proper exercise technique and purpose for exercises. Skilled judgment was provided in selection of appropriate interventions. Provided handout for exercises she should perform 2x a day: DF/PF/Inver/Ever of ankles, Quad sets, Hip ABD, Heel slides, and sitting with good posture, and placing a towel on the lateral side of foot to help limited PF and Inversion of foot to promote more eversion and DF of L foot. Therapeutic Activity: 6: Transfer from w/c to mat table Max A x1 with no weight placed through L LE (Cues given to place weight through leg) 7: Standing for 8 minutes in // bar with B UE support Moderate to Min Assistance. Constant cueing to stand tall and look up at PT name tag, Look at picture kandice on the wall. Therapist helping to keep R foot as flat as able. 8: STS in // bars 2x5 with B UE support 9: Walking 3 feet in // bars with B UE and Max assistance. Constant cuing to stand tall and put weight through L LE and keep R foot flat 10: placing a towel on the lateral side of L foot to help limited PF and Inversion of foot to promote more eversion and DF of L foot. Skilled Intervention: Proper patient guarding to prevent falls/increase patient safety with maximal assistance, moderate assistance to assist patient while performing STS and Walking Insured patient safety with use of gait belt Billing: [facility]: Therapeutic Exercise (66778): 1:1 time: 30 minutes (2 units: 23-37 mins) Therapeutic Activity ([id number]): 1:1 time: 30 minutes (2 units: 23-37 mins) Total time: 60 minutes Madison Longoria PT PROGRESS Observed: 02/14/2018 Status: COMPLETED Source: [place] 2:37 PM [facility] [place] REPOSITORY O ID: [id number] Author: Madison Longoria Service: (none) Author Type: Physical Therapist Type: Progress Notes Filed: 02/17/2018 11:26 AM Note Text: Episode Visit Count: 6 Therapist That Will Oversee The Plan Of Care: Madison Longoria PT Start of Care Date: 01/13/18 Onset Date: 01/17/17 Plan of Care Certification Date: 01/13/18 Patient Identified by Name and Date of : Yes REHABILITATION AND SPORTS THERAPY PHYSICAL THERAPY TREATMENT NOTE ASSESSMENT: Romain Mcdermott demonstrated difficulty with sitting on edge of bed holding on to edge of bend with hands she wanted to lean back. Patient with fair tolerance to session. If her daughter transfers patient from w/c to mat table it is Max A x1 if not it requires Max A x2 therapist. Patient seems like she has had a stroke based on the tightness of her legs and presentation of her L leg with hip IR, knee ext, and foot PF/Inversion. Staff Message sent to Solis Quezada CNP regarding these conclusions. The patient will continue to benefit from continued skilled physical therapy for help with decreasing tone PLAN FOR NEXT VISIT: Ther ex to help break up extensor pattern on R. Try standing weight bearing at // bars. Patient is Max x2 if has to therpist or Max Ax1 if daughter transfers. SUBJECTIVE: Patient arrived 11 minutes late to her session. Doing ok. The cord feeling is still there in the back of her R thigh. Just took two ibuprofen before PT session. Pain Score: 3/10 Pain Location: Foot - Right Description: Pressure Frequency: Continuous Post Treatment Pain Score: No Change (patient stated she feels better after physical torture) OBJECTIVE MEASURES WITH LEVEL OF FUNCTION: Posture / Alignment LE Observations: Con't plantar flexion and inverted R foot. LE AROM R Knee Extension: -10 Degrees (-9 from neutral after contract relax) TREATMENT: Therapeutic Exercise: 8: Supine hamstring contract/relax 10 sec holds, 4 sets of 3x each on R side 9: Supine hip ABD 3x10, B (tactile cues for stabilization of pelvis) 10: Supine PROM hip IR/ER x20, B 11: Transfer from mat table<-->w/c Max A x2 patient did not place weight through L foot. Remained on her toes 12: Supine Quad sets 3x10 14: PROM for lumbar rotation x10 each direction 15: B PROM for hip flexion, hip ER, knee flexion, DF of great toe x15 each side Skilled Intervention: Patient was educated in proper exercise technique and purpose for exercises. Skilled judgment was provided in selection of appropriate interventions. Correct performance of therapeutic exercises was facilitated with verbal and tactile cuing. Therapeutic Activity: 4: Sitting on edge of bed weight shifting to R and L, Mod A 5: Sitting on the bed with cues for posture to sit up right and look forward, Max A to Mod A (patient wanted to keep slipping forward) 6: Transfer from mat table to w/c required Max A x2 Skilled Intervention: Insured patient safety with use of gait belt Activity progression based on professional judgment. Billing: [facility]: Therapeutic Exercise (18567): 1:1 time: 20 minutes (1 unit: 8-22 mins) Therapeutic Activity (27027): 1:1 time: 15 minutes (1 unit: 8-22 mins) Total time: 35 minutes Madison Longoria PT CNTHERAPY Observed: 02/14/2018 Status: COMPLETED Source: [place] 12:30 PM [facility] REPOSITORY OT/PT/Speech Visit (PTWS) ROMAIN MCDERMOTT ([id number]) 1940 F Date Time Provider Department 02/14/18 12:30 PM MADISON LONGORIA (PT) PTWS Date Time Provider Department Center 02/14/2018 12:30 PM [id number], DIANA (PT)[facility]WS [facility] Reason for Visit: Physical Therapy [503] Primary Visit Diagnosis:Pain in right foot [M79.671] Other Visit Diagnoses:Generalized anxiety disorder [F41.1] Hip contracture, 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 Dx: * INSULIN ASPART U-100 100 UNI* 1 unit for 15 g of carbs with* INSULIN DETEMIR (U-100) 100 U* Inject 25 Units subcutaneousl* LISINOPRIL 5 MG TABLET Take 1 tablet by mouth once d* LEVOTHYROXINE 75 MCG TABLET Take 1 tablet by mouth once d* ASPIRIN 81 MG CHEWABLE TABLET Take 1 tablet by mouth once d* Progress Notes: Madison Longoria PT 02/17/2018 11:26 AM Signed Episode Visit Count: 6 Therapist That Will Oversee The Plan Of Care: Madison Longoria PT Start of Care Date: 01/13/18 Onset Date: 01/17/17 Plan of Care Certification Date: 01/13/18 Patient Identified by Name and Date of : Yes REHABILITATION AND SPORTS THERAPY PHYSICAL THERAPY TREATMENT NOTE ASSESSMENT: Romain Mcdermott demonstrated difficulty with sitting on edge of bed holding on to edge of bend with hands she wanted to lean back. Patient with fair tolerance to session. If her daughter transfers patient from w/c to mat table it is Max A x1 if not it requires Max A x2 therapist. Patient seems like she has had a stroke based on the tightness of her legs and presentation of her L leg with hip IR, knee ext, and foot PF/Inversion. Staff Message sent to Solis Quezada CNP regarding these conclusions. The patient will continue to benefit from continued skilled physical therapy for help with decreasing tone PLAN FOR NEXT VISIT: Ther ex to help break up extensor pattern on R. Try standing weight bearing at // bars. Patient is Max x2 if has to therpist or Max Ax1 if daughter transfers. SUBJECTIVE: Patient arrived 11 minutes late to her session. Doing ok. The cord feeling is still there in the back of her R thigh. Just took two ibuprofen before PT session. Pain Score: 3/10 Pain Location: Foot - Right Description: Pressure Frequency: Continuous Post Treatment Pain Score: No Change (patient stated she feels better after physical torture) OBJECTIVE MEASURES WITH LEVEL OF FUNCTION: Posture / Alignment LE Observations: Con't plantar flexion and inverted R foot. LE AROM R Knee Extension: -10 Degrees (-9 from neutral after contract relax) TREATMENT: Therapeutic Exercise: 8: Supine hamstring contract/relax 10 sec holds, 4 sets of 3x each on R side 9: Supine hip ABD 3x10, B (tactile cues for stabilization of pelvis) 10: Supine PROM hip IR/ER x20, B 11: Transfer from mat table<-->w/c Max A x2 patient did not place weight through L foot. Remained on her toes 12: Supine Quad sets 3x10 14: PROM for lumbar rotation x10 each direction 15: B PROM for hip flexion, hip ER, knee flexion, DF of great toe x15 each side Skilled Intervention: Patient was educated in proper exercise technique and purpose for exercises. Skilled judgment was provided in selection of appropriate interventions. Correct performance of therapeutic exercises was facilitated with verbal and tactile cuing. Therapeutic Activity: 4: Sitting on edge of bed weight shifting to R and L, Mod A 5: Sitting on the bed with cues for posture to sit up right and look forward, Max A to Mod A (patient wanted to keep slipping forward) 6: Transfer from mat table to w/c required Max A x2 Skilled Intervention: Insured patient safety with use of gait belt Activity progression based on professional judgment. Billing: [facility]: Therapeutic Exercise (64600): 1:1 time: 20 minutes (1 unit: 8-22 mins) Therapeutic Activity (16184): 1:1 time: 15 minutes (1 unit: 8-22 mins) Total time: 35 minutes Madison Longoria PT PROGRESS Observed: 02/12/2018 Status: COMPLETED Source: [place] 7:01 PM [facility] REPOSITORY HNO ID: [id number] Author: Madison Longoria Service: (none) Author Type: Physical Therapist Type: Progress Notes Filed: 02/12/2018 7:10 PM Note Text: Episode Visit Count: 5 Therapist That Will Oversee The Plan Of Care: Madison Longoria PT Start of Care Date: 01/13/18 Onset Date: 01/17/17 Plan of Care Certification Date: 01/13/18 Patient Identified by Name and Date of : Yes REHABILITATION AND SPORTS THERAPY PHYSICAL THERAPY PROGRESS REPORT PLAN OF CARE UPDATE: Assessment: Romain Mcdermott exhibits difficulty with tightness in her R ankle and limited hip flexion. Was able to get her to sit on the edge of the mat table with BUE support to work on posture and weight shifting. She was able to relax her legs and her trunk to some extent but required constant cuing for posture to keep her head up. She continues to be limited with sitting, standing, walking, physical activities, dressing and grooming. She is progressing as expected towards her therapy goals as demonstrated by: documented subjective information on progress, documented objective information regarding overall function and patient reported outcome measures and appointment compliance. She will benefit from continued skilled therapy requiring ther ex, manual, and gait training in order to improve her flexibility, ROM, and to require less assistance. Functional gains: None at this time Goals updated on 02/12/2018. [place] in home exercise program.--Progressing Patient will decrease pain rating by 2 points to meet minimal clinical important difference for numeric pain rating scale. (Goal: 3/10 R ankle)--Not MET Patient will increase active ROM of R ankle DF/PF/Inversion/Eversion to WNL to allow pt to to achieve neutral postural alignment, improved performance of ADLs and to normalize gait mechanics / gait pattern.--Not MET Demonstrate improvement on functional score: Patient will improve his/her AM-PAC T-scale score by 4 points to indicate a Minimal Clinical Important Difference. (Goal: 45.55)--Not MET Patient will require Min assistance for transfers.--Not MET Patient will be able to walk with a rollator.--Not MET Patient will demonstrate good posture with sitting and standing. Not MET Patient will improve B LE strength to at least 4/5.Not MET Patient will be able to dress herself with Min Assist.--Not MET G CODE REPORTING Based on clinical assessment and the score on the AM-PAC Scale Score Assessment Tool, the G code and corresponding severity modifiers are documented below. Evaluation: 01/13/2018 Current Status: Mobility: Walking and Moving Around: G8978 CL 60-79% impaired Goal Status: Mobility: Walking and Moving Around: G8979 CK 40-59% Impaired Progress Report: 02/11/2018 Current Status: Mobility: Walking and Moving Around: G8978 CL 60-79% impaired Goal Status: Mobility: Walking and Moving Around: G8979 CK 40-59% impaired Planned Interventions, Frequency, and Duration: 2x/week, 4 weeks Total Number of Visits Planned: 17 Patient to be seen for Therapeutic exercise;Neuromuscular re-education;Manual therapy;Self-detention management;Gait Training;Patient/Family/Caregiver Education;Body Mechanics Training;General Conditioning;Functional training PLAN FOR NEXT VISIT: Manual, exercise, sitting on mat table, standing at // bars SUBJECTIVE: Patient feels like her ankle is bothering her due to the weather. Pain Score: 5/10 (increases with pressure) Pain Location: Foot - Right Description: Pressure Frequency: Continuous (when putting pressure through ankle.) Post Treatment Pain Score: No Change (reported less tightness feeling in the back of her hamstring) OBJECTIVE MEASURES WITH LEVEL OF FUNCTION: LE AROM R Knee Extension: -11 Degrees R Knee Flexion: 110 Degrees L Knee Extension: -9 Degrees L Knee Flexion: 120 Degrees Patient arrives in W/C Requires Max A x1 to transfer to mat table by daughter TREATMENT: Therapeutic Exercise: 7: Supine heel slides 3x10, B 8: Supine hamstring contract/relax 10 sec holds, two sets of 3x each side 9: Supine hip ABD 3x10, B (good weight through L foot) 10: Supine PROM hip IR/ER x20, B 12: Supine Quad sets 3x10 13: Hooklying hip ER 3x10, B Skilled Intervention: Patient was educated in proper exercise technique and purpose for exercises. Skilled judgment was provided in selection of appropriate interventions. Manual Therapy: 2: Supine R hamstring IASTM via therapist hands for 5 minutes 4: PROM of R ankle for 5 minutes Skilled Intervention: Manual skills to improve joint mobility, ROM, and decrease pain. Utilized anatomy knowledge of the therapist, and assessment of patient's response to intervention. Therapeutic Activity: 4: Sitting on edge of bed weight shifting to R, Mod A 5: Sitting on the bed with cues for posture to sit up right and look forward, Mod A--Min A 6: Tried to perform a stand pivot with patient but she refused to place weight through her L foot Skilled Intervention: Insured patient safety with use of gait belt. Constant cuing to breath through nose and out of mouth to help relax patient. Billing: [facility]: Therapeutic Exercise (33609): 1:1 time: 20 minutes (1 unit: 8-22 mins) Manual Therapy (98012): 1:1 time: 10 minutes (1 unit: 8-22 mins) Therapeutic Activity (60994): 1:1 time: 15 minutes (1 unit: 8-22 mins) Total time: 45 minutes Madison Longoria PT CNTHERAPY Observed: 02/11/2018 Status: COMPLETED Source: [place] 12:30 PM [facility] [place] REPOSITORY OT/PT/Speech Visit (PTWS) ROMAIN MCDERMOTT ([id number]) 1940 F Date Time Provider Department 02/11/18 12:30 PM MADISON LONGORIA (PT) PTWS Date Time Provider Department Center 02/11/2018 12:30 PM [id number], DIANA (PT)[facility] Reason for Visit: Physical Therapy [503] PT Progress Note [1596] Reason For Visit History Recorded Primary Visit Diagnosis:Pain in right foot [M79.671] Other Visit Diagnoses:Generalized anxiety disorder [F41.1] Hip contracture, right [M24.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 Dx: * INSULIN ASPART U-100 100 UNI* 1 unit for 15 g of carbs with* INSULIN DETEMIR (U-100) 100 U* Inject 25 Units subcutaneousl* LISINOPRIL 5 MG TABLET Take 1 tablet by mouth once d* LEVOTHYROXINE 75 MCG TABLET Take 1 tablet by mouth once d* ASPIRIN 81 MG CHEWABLE TABLET Take 1 tablet by mouth once d* Progress Notes: Madison Longoria PT 02/12/2018 7:10 PM Signed Episode Visit Count: 5 Therapist That Will Oversee The Plan Of Care: Madison Longoria PT Start of Care Date: 01/13/18 Onset Date: 01/17/17 Plan of Care Certification Date: 01/13/18 Patient Identified by Name and Date of : Yes REHABILITATION AND SPORTS THERAPY PHYSICAL THERAPY PROGRESS REPORT PLAN OF CARE UPDATE: Assessment: Romain Mcdermott exhibits difficulty with tightness in her R ankle and limited hip flexion. Was able to get her to sit on the edge of the mat table with BUE support to work on posture and weight shifting. She was able to relax her legs and her trunk to some extent but required constant cuing for posture to keep her head up. She continues to be limited with sitting, standing, walking, physical activities, dressing and grooming. She is progressing as expected towards her therapy goals as demonstrated by: documented subjective information on progress, documented objective information regarding overall function and patient reported outcome measures and appointment compliance. She will benefit from continued skilled therapy requiring ther ex, manual, and gait training in order to improve her flexibility, ROM, and to require less assistance. Functional gains: None at this time Goals updated on 02/12/2018. [place] in home exercise program.--Progressing Patient will decrease pain rating by 2 points to meet minimal clinical important difference for numeric pain rating scale. (Goal: 3/10 R ankle)--Not MET Patient will increase active ROM of R ankle DF/PF/Inversion/Eversion to WNL to allow pt to to achieve neutral postural alignment, improved performance of ADLs and to normalize gait mechanics / gait pattern.--Not MET Demonstrate improvement on functional score: Patient will improve his/her AM-PAC T-scale score by 4 points to indicate a Minimal Clinical Important Difference. (Goal: 45.55)--Not MET Patient will require Min assistance for transfers.--Not MET Patient will be able to walk with a rollator.--Not MET Patient will demonstrate good posture with sitting and standing. Not MET Patient will improve B LE strength to at least 4/5.Not MET Patient will be able to dress herself with Min Assist.--Not MET G CODE REPORTING Based on clinical assessment and the score on the AM-PAC Scale Score Assessment Tool, the G code and corresponding severity modifiers are documented below. Evaluation: 01/13/2018 Current Status: Mobility: Walking and Moving Around: G8978 CL 60-79% impaired Goal Status: Mobility: Walking and Moving Around: G8979 CK 40-59% Impaired Progress Report: 02/11/2018 Current Status: Mobility: Walking and Moving Around: G8978 CL 60-79% impaired Goal Status: Mobility: Walking and Moving Around: G8979 CK 40-59% impaired Planned Interventions, Frequency, and Duration: 2x/week, 4 weeks Total Number of Visits Planned: 17 Patient to be seen for Therapeutic exercise;Neuromuscular re-education;Manual therapy;Self-detention management;Gait Training;Patient/Family/Caregiver Education;Body Mechanics Training;General Conditioning;Functional training PLAN FOR NEXT VISIT: Manual, exercise, sitting on mat table, standing at // bars SUBJECTIVE: Patient feels like her ankle is bothering her due to the weather. Pain Score: 5/10 (increases with pressure) Pain Location: Foot - Right Description: Pressure Frequency: Continuous (when putting pressure through ankle.) Post Treatment Pain Score: No Change (reported less tightness feeling in the back of her hamstring) OBJECTIVE MEASURES WITH LEVEL OF FUNCTION: LE AROM R Knee Extension: -11 Degrees R Knee Flexion: 110 Degrees L Knee Extension: -9 Degrees L Knee Flexion: 120 Degrees Patient arrives in W/C Requires Max A x1 to transfer to mat table by daughter TREATMENT: Therapeutic Exercise: 7: Supine heel slides 3x10, B 8: Supine hamstring contract/relax 10 sec holds, two sets of 3x each side 9: Supine hip ABD 3x10, B (good weight through L foot) 10: Supine PROM hip IR/ER x20, B 12: Supine Quad sets 3x10 13: Hooklying hip ER 3x10, B Skilled Intervention: Patient was educated in proper exercise technique and purpose for exercises. Skilled judgment was provided in selection of appropriate interventions. Manual Therapy: 2: Supine R hamstring IASTM via therapist hands for 5 minutes 4: PROM of R ankle for 5 minutes Skilled Intervention: Manual skills to improve joint mobility, ROM, and decrease pain. Utilized anatomy knowledge of the therapist, and assessment of patient's response to intervention. Therapeutic Activity: 4: Sitting on edge of bed weight shifting to R, Mod A 5: Sitting on the bed with cues for posture to sit up right and look forward, Mod A--Min A 6: Tried to perform a stand pivot with patient but she refused to place weight through her L foot Skilled Intervention: Insured patient safety with use of gait belt. Constant cuing to breath through nose and out of mouth to help relax patient. Billing: [facility]: Therapeutic Exercise (27070): 1:1 time: 20 minutes (1 unit: 8-22 mins) Manual Therapy (61439): 1:1 time: 10 minutes (1 unit: 8-22 mins) Therapeutic Activity (24763): 1:1 time: 15 minutes (1 unit: 8-22 mins) Total time: 45 minutes Madison Longoria PT PROGRESS Observed: 02/09/2018 Status: COMPLETED Source: [place] 3:04 PM [facility] [facility] REPOSITORY O ID: [id number] Author: Madison (Pt) Von Service: (none) Author Type: Physical Therapist Type: Progress Notes Filed: 02/09/2018 3:19 PM Note Text: Episode Visit Count: 4 Therapist That Will Oversee The Plan Of Care: Madison Longoria PT Start of Care Date: 01/13/18 Onset Date: 01/17/17 Plan of Care Certification Date: 01/13/18 Patient Identified by Name and Date of : Yes REHABILITATION AND SPORTS THERAPY PHYSICAL THERAPY TREATMENT NOTE ASSESSMENT: Romain Hickman Baldemar demonstrated was appears to be an extensor synergy 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 She did well with the manual therapy to her hamstrings and despite feeling pain with contract relax stretching of her hamstrings she didn't feel the same rope like texture she has reported in the past. She needs to work on ROM of her hips and knees and to place more weight through her L foot when transferring as she was only putting weight through her toes.The patient will continue to benefit from continued skilled physical therapy for ROM, stretching, and manual to help improved R ankle tightness to prevent injury to lateral tendons of her ankle and improving hip ROM. PLAN FOR NEXT VISIT: manual to R hamstring and foot, upper back/neck massage. G codes down on 02/07/18. POC update 02/14/18 SUBJECTIVE: Has tired the R ankle brace once and she liked. Patient and her daughter brought a lace up ankle brace. Pain Score: 5/10 Pain Location: Foot - Right Description: Pressure Frequency: (weight through foot) OBJECTIVE MEASURES WITH LEVEL OF FUNCTION: LE AROM R Hip Flexion: 80 Degrees R Hip ABduction: 15 Degrees L Hip Flexion: 70 Degrees L Hip ABduction : 20 Degrees Patient requires constant cuing throughout session to stand tall and look up. TREATMENT: Therapeutic Exercise: 7: Supine heel slides x10, B 8: Supine hamstring contract/relax 10 sec holds, 3x each side 9: Supine hip ABD x10, B 10: Supine PROM hip IR/ER x10, B 11: Transfer from wheel chair to mat table Max A x1 and cues to place weight through L foot as patient was on her toes Skilled Intervention: Patient was educated in proper exercise technique and purpose for exercises. Reviewed and educated patient on additions/changes for home exercise program as above (*) Skilled judgment was provided in selection of appropriate interventions. Manual Therapy: 1: Sitting in w/c and foot on pillow PT used warm massage lotion to perform IASTM with hands to R ankle and R gastroc/soleus for 10 minutes 2: Supine R hamstring IASTM via therapist hands Skilled Intervention: Manual skills to improve joint mobility, ROM, and decrease pain. Utilized anatomy knowledge of the therapist, and assessment of patient's response to intervention. Billing: [facility]: Therapeutic Exercise ([id number]): 1:1 time: 25 minutes (2 units: 23-37 mins) Manual Therapy ([id number]): 1:1 time: 20 minutes (1 unit: 8-22 mins) Total time: 45 minutes Madison Longoria PT CNTHERAPY Observed: 02/07/2018 Status: COMPLETED Source: [place] 12:30 PM [facility] REPOSITORY OT/PT/Speech Visit (PTWS) ROMAIN MCDERMOTT ([id number]) 1940 F Date Time Provider Department 02/07/18 12:30 PM MADISON LONGORIAPT) YASMIN Date Time Provider Department Center 02/07/2018 12:30 PM [id number], DIANA (PT)[facility]ACLYN [facility] Reason for Visit: Physical Therapy [503] Primary Visit Diagnosis:Pain in right foot [M79.671] Other Visit Diagnoses:Generalized anxiety disorder [F41.1] Hip contracture, right [M24.551] Hip contracture, left [M24.552] Allergies As of Date: 02/07/2018 (No Known Allergies) Date Reviewed: 01/07/2018 Reviewed by: Solis (Media Marketing Coordinator) Pilar - Fully Assessed Prescriptions as of 02/07/2018 Sig: BLOOD SUGAR DIAGNOSTIC STRIPS Check blood sugar 4 times nenita* BLOOD-GLUCOSE METER 1 Each four times daily. Dx: * INSULIN ASPART U-100 100 UNI* 1 unit for 15 g of carbs with* INSULIN DETEMIR (U-100) 100 U* Inject 25 Units subcutaneousl* LISINOPRIL 5 MG TABLET Take 1 tablet by mouth once d* LEVOTHYROXINE 75 MCG TABLET Take 1 tablet by mouth once d* ASPIRIN 81 MG CHEWABLE TABLET Take 1 tablet by mouth once d* Progress Notes: Madison Longoria PT 02/09/2018 3:19 PM Signed Episode Visit Count: 4 Therapist That Will Oversee The Plan Of Care: Madison Longoria PT Start of Care Date: 01/13/18 Onset Date: 01/17/17 Plan of Care Certification Date: 01/13/18 Patient Identified by Name and Date of : Yes REHABILITATION AND SPORTS THERAPY PHYSICAL THERAPY TREATMENT NOTE ASSESSMENT: Romain Marylou Mcdermott demonstrated was appears to be an extensor synergy 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 She did well with the manual therapy to her hamstrings and despite feeling pain with contract relax stretching of her hamstrings she didn't feel the same rope like texture she has reported in the past. She needs to work on ROM of her hips and knees and to place more weight through her L foot when transferring as she was only putting weight through her toes.The patient will continue to benefit from continued skilled physical therapy for ROM, stretching, and manual to help improved R ankle tightness to prevent injury to lateral tendons of her ankle and improving hip ROM. PLAN FOR NEXT VISIT: manual to R hamstring and foot, upper back/neck massage. G codes down on 02/07/18. POC update 02/14/18 SUBJECTIVE: Has tired the R ankle brace once and she liked. Patient and her daughter brought a lace up ankle brace. Pain Score: 5/10 Pain Location: Foot - Right Description: Pressure Frequency: (weight through foot) OBJECTIVE MEASURES WITH LEVEL OF FUNCTION: LE AROM R Hip Flexion: 80 Degrees R Hip ABduction: 15 Degrees L Hip Flexion: 70 Degrees L Hip ABduction : 20 Degrees Patient requires constant cuing throughout session to stand tall and look up. TREATMENT: Therapeutic Exercise: 7: Supine heel slides x10, B 8: Supine hamstring contract/relax 10 sec holds, 3x each side 9: Supine hip ABD x10, B 10: Supine PROM hip IR/ER x10, B 11: Transfer from wheel chair to mat table Max A x1 and cues to place weight through L foot as patient was on her toes Skilled Intervention: Patient was educated in proper exercise technique and purpose for exercises. Reviewed and educated patient on additions/changes for home exercise program as above (*) Skilled judgment was provided in selection of appropriate interventions. Manual Therapy: 1: Sitting in w/c and foot on pillow PT used warm massage lotion to perform IASTM with hands to R ankle and R gastroc/soleus for 10 minutes 2: Supine R hamstring IASTM via therapist hands Skilled Intervention: Manual skills to improve joint mobility, ROM, and decrease pain. Utilized anatomy knowledge of the therapist, and assessment of patient's response to intervention. Billing: [facility]: Therapeutic Exercise ([id number]): 1:1 time: 25 minutes (2 units: 23-37 mins) Manual Therapy ([id number]): 1:1 time: 20 minutes (1 unit: 8-22 mins) Total time: 45 minutes Madison Longoria PT PROGRESS Observed: 02/05/2018 Status: COMPLETED Source: [place] 11:09 AM [facility] REPOSITORY O ID: [id number] Author: Madison RochePtJody Longoria Service: (none) Author Type: Physical Therapist Type: Progress Notes Filed: 02/05/2018 11:18 AM Note Text: Episode Visit Count: 3 Therapist That Will Oversee The Plan Of Care: Madison Longoria PT Start of Care Date: 01/13/18 Onset Date: 01/17/17 Plan of Care Certification Date: 01/13/18 Patient Identified by Name and Date of : Yes REHABILITATION AND SPORTS THERAPY PHYSICAL THERAPY TREATMENT NOTE ASSESSMENT: Romain Mcdermott demonstrated improvements in being able to walk 2x inside // bars. She required constant cuing to ensure she was standing up and looking up with poor follow through. She appeared to do better keeping her R post post shoe on the w/c foot rest and her daughter felt like she had has less swelling in her R foot and less looking sausage like toes. Re-direction through session to have patient focus on the here and now and not focus on her poor experiences in the group home. The patient will continue to benefit from continued skilled physical therapy for IASTM, ankle ROM, stretching, and weight bearing. PLAN FOR NEXT VISIT: IASTM to start and then exercise. Seated hip IR/ER on R. Trace A-Z with R foot. Try STS from W/C SUBJECTIVE: R foot doesn't seem as swollen. Pain Score: 5/10 Pain Location: Foot - Right Description: Aching Frequency: Continuous (movement) OBJECTIVE MEASURES WITH LEVEL OF FUNCTION: Posture / Alignment Posture: (Sitting with hips flexed to 90' and feet on foot rests) LE Observations: Patient's R post-op shoe is flat on foot rest and some relaxation in Plantarflexion and invertedness of R foot Ankle Observations R Ankle Presents with: Comments Comments: No pitting edema TREATMENT: Therapeutic Exercise: 1: Sitting in w/c with Prostretch under R foot to perform Gastroc stretch 10 sec, 6x 2: Sitting in w/c rocking foot forwards/backwards with Prostretch to work on PF/DF x30 3: Sitting in w/c with read balance boarder under foot to perform inversion eversion x30 4: Moderate-Min assistance to stand from w/c to // bars 5: B UE support and Moderate assistance to walk the length of the // bars 2x with cues to press her R heel down thinking about smooshing/stepping on a spider . Patient required moderate assitance with pivoting. 6: Sitting in w/c hip flexion/knee bends 3x10 each side Skilled Intervention: Patient was educated in proper exercise technique and purpose for exercises. Skilled judgment was provided in selection of appropriate interventions. Correct performance of therapeutic exercises was facilitated with verbal, visual and tactile cuing. Gait belt in place to ensure safety. Manual Therapy: 1: Sitting in w/c and foot on pillow PT used warm massage lotion to perform IASTM with hands to R ankle and R gastroc/soleus for 10 minutes 2: PROM for RIGHT ankle DF/PF/Inv/Evr/Circles CW/CWW 3: RIGHT Passive Gastroc stretching 10 sec, 6x Skilled Intervention: Manual skills to improve joint mobility, ROM, and decrease pain. Utilized anatomy knowledge of the therapist, and assessment of patient's response to intervention. Billing: [facility]: Therapeutic Exercise ([id number]): 1:1 time: 23 minutes (2 units: 23-37 mins) Manual Therapy ([id number]): 1:1 time: 20 minutes (1 unit: 8-22 mins) Total time: 43 minutes Madison Longoria PT CNTHERAPY Observed: 02/04/2018 Status: COMPLETED Source: [place] 12:30 PM [facility] REPOS[facility]ORY OT/PT/Speech Visit (PTWS) ROMAIN MCDERMOTT ([id number]) 1940 F Date Time Provider Department 02/04/18 12:30 PM MADISON LONGORIAPT) PTWS Date Time Provider Department Center 02/04/2018 12:30 PM [id number], DIANA (PT)[facility] Reason for Visit: Physical Therapy [503] Primary Visit Diagnosis:Pain in right foot [M79.671] Other Visit Diagnoses:Generalized anxiety disorder [F41.1] Hip contracture, right [M24.551] Hip contracture, left [M24.552] Allergies As of Date: 02/04/2018 (No Known Allergies) Date Reviewed: 01/07/2018 Reviewed by: Solis ([facility]) Pilar - Fully Assessed Prescriptions as of 02/04/2018 Sig: BLOOD SUGAR DIAGNOSTIC STRIPS Check blood sugar 4 times nenita* BLOOD-GLUCOSE METER 1 Each four times daily. Dx: * INSULIN ASPART U-100 100 UNI* 1 unit for 15 g of carbs with* INSULIN DETEMIR (U-100) 100 U* Inject 25 Units subcutaneousl* LISINOPRIL 5 MG TABLET Take 1 tablet by mouth once d* LEVOTHYROXINE 75 MCG TABLET Take 1 tablet by mouth once d* ASPIRIN 81 MG CHEWABLE TABLET Take 1 tablet by mouth once d* Progress Notes: Madison Longoria PT 02/05/2018 11:18 AM Signed Episode Visit Count: 3 Therapist That Will Oversee The Plan Of Care: Madison Longoria PT Start of Care Date: 01/13/18 Onset Date: 01/17/17 Plan of Care Certification Date: 01/13/18 Patient Identified by Name and Date of : Yes REHABILITATION AND SPORTS THERAPY PHYSICAL THERAPY TREATMENT NOTE ASSESSMENT: Romain Mcdermott demonstrated improvements in being able to walk 2x inside // bars. She required constant cuing to ensure she was standing up and looking up with poor follow through. She appeared to do better keeping her R post post shoe on the w/c foot rest and her daughter felt like she had has less swelling in her R foot and less looking sausage like toes. Re-direction through session to have patient focus on the here and now and not focus on her poor experiences in the group home. The patient will continue to benefit from continued skilled physical therapy for IASTM, ankle ROM, stretching, and weight bearing. PLAN FOR NEXT VISIT: IASTM to start and then exercise. Seated hip IR/ER on R. Trace A-Z with R foot. Try STS from W/C SUBJECTIVE: R foot doesn't seem as swollen. Pain Score: 5/10 Pain Location: Foot - Right Description: Aching Frequency: Continuous (movement) OBJECTIVE MEASURES WITH LEVEL OF FUNCTION: Posture / Alignment Posture: (Sitting with hips flexed to 90' and feet on foot rests) LE Observations: Patient's R post-op shoe is flat on foot rest and some relaxation in Plantarflexion and invertedness of R foot Ankle Observations R Ankle Presents with: Comments Comments: No pitting edema TREATMENT: Therapeutic Exercise: 1: Sitting in w/c with Prostretch under R foot to perform Gastroc stretch 10 sec, 6x 2: Sitting in w/c rocking foot forwards/backwards with Prostretch to work on PF/DF x30 3: Sitting in w/c with read balance boarder under foot to perform inversion eversion x30 4: Moderate-Min assistance to stand from w/c to // bars 5: B UE support and Moderate assistance to walk the length of the // bars 2x with cues to press her R heel down thinking about smooshing/stepping on a spider . Patient required moderate assitance with pivoting. 6: Sitting in w/c hip flexion/knee bends 3x10 each side Skilled Intervention: Patient was educated in proper exercise technique and purpose for exercises. Skilled judgment was provided in selection of appropriate interventions. Correct performance of therapeutic exercises was facilitated with verbal, visual and tactile cuing. Gait belt in place to ensure safety. Manual Therapy: 1: Sitting in w/c and foot on pillow PT used warm massage lotion to perform IASTM with hands to R ankle and R gastroc/soleus for 10 minutes 2: PROM for RIGHT ankle DF/PF/Inv/Evr/Circles CW/CWW 3: RIGHT Passive Gastroc stretching 10 sec, 6x Skilled Intervention: Manual skills to improve joint mobility, ROM, and decrease pain. Utilized anatomy knowledge of the therapist, and assessment of patient's response to intervention. Billing: [facility]: Therapeutic Exercise ([id number]): 1:1 time: 23 minutes (2 units: 23-37 mins) Manual Therapy ([id number]): 1:1 time: 20 minutes (1 unit: 8-22 mins) Total time: 43 minutes Madison Longoria PT PROGRESS Observed: 02/02/2018 Status: COMPLETED Source: [place] 3:13 PM [facility] REPOS[facility] HNO ID: [id number] Author: Madison RochePtJody Longoria Service: (none) Author Type: Physical Therapist Type: Progress Notes Filed: 02/02/2018 3:17 PM Note Text: Episode Visit Count: 2 Therapist That Will Oversee The Plan Of Care: Madison Longoria PT Start of Care Date: 01/13/18 Onset Date: 01/17/17 Plan of Care Certification Date: 01/13/18 Patient Identified by Name and Date of : Yes REHABILITATION AND SPORTS THERAPY PHYSICAL THERAPY TREATMENT NOTE ASSESSMENT: Romain Mcdermott demonstrated improvements in being able to sit with her hips against the back of her chair and tolerate placing her R foot on her w/c foot rest. Patient with good tolerance to manual IASTM with warm lotion prior to PROM and stretching The patient will continue to benefit from continued skilled physical therapy for manual, ther ex, and gait to patient tolerance. PLAN FOR NEXT VISIT: Continue Manaul therapy to R ankle, stretching of calf muslces and hip flexors to patient tolerance. Standing at // bars, transfers using the sliding board SUBJECTIVE: Patient was able to have her wash hair in sink with the help of her daughter. She is using foot rest on the R since last PT visit. 3 Ibuprofen taken at 10:30am today. Is sitting back in chair with hips against back of chair. Pain Score: 5/10 Pain Location: Foot - Right Description: Aching Frequency: Continuous (pressing down.) OBJECTIVE MEASURES WITH LEVEL OF FUNCTION: Posture / Alignment Posture: (sitting in w/c with R shld elevated and R foot on rest) TREATMENT: Manual Therapy: 1: Sitting in w/c and foot on pillow PT used warm massage lotion to perform IASTM with hands to R ankle and R gastroc/soleus for 15 minutes 2: PROM for RIGHT ankle DF/PF/Inv/Evr 3: RIGHT Passive Gastroc stretching 10 sec, 6x 4: Wrap used to try to pull patient's ankle into more of a DF/Everted position. Skilled Intervention: Manual skills to improve joint mobility, ROM, and decrease pain. Utilized anatomy knowledge of the therapist, and assessment of patient's response to intervention. Therapeutic Activity: 1: Moderate assistance to stand from w/c to // bars 2: Cues to WBAT 5 feet with B UE support 3: Standing to just put weight through a flat R foot without inversion of R foot Skilled Intervention: Moderate verbal cues for maintaining neutral spine alignment. Activity progression based on professional judgment. Gait belt in place Billing: [facility]: Manual Therapy ([id number]): 1:1 time: 25 minutes (2 units: 23- 37 mins) Therapeutic Activity ([id number]): 1:1 time: 16 minutes (1 unit: 8-22 mins) Total time: 41 minutes Madison Longoria PT CNTHERAPY Observed: 01/31/2018 Status: COMPLETED Source: [place] 12:30 PM [facility] REPOSITORY OT/PT/Speech Visit (PTWS) ROMAIN MCDERMOTT ([id number]) 1940 F Date Time Provider Department 01/31/18 12:30 PM MADISON LONGORIAPT) YASMIN Date Time Provider Department [place] 01/31/2018 12:30 PM [id number], DIANA (PT)PTWS [facility] Reason for Visit: Physical Therapy [503] Primary Visit Diagnosis:Pain in right foot [M79.671] Other Visit Diagnoses:Generalized anxiety disorder [F41.1] Hip contracture, right [M24.551] Hip contracture, left [M24.552] Allergies As of Date: 01/31/2018 (No Known Allergies) Date Reviewed: 01/07/2018 [facility]: [facility] Pilar - Fully Assessed Prescriptions as of 01/31/2018 Sig: BLOOD SUGAR DIAGNOSTIC STRIPS Check blood sugar 4 times nenita* BLOOD-GLUCOSE METER 1 Each four times daily. Dx: * INSULIN ASPART U-100 100 UNI* 1 unit for 15 g of carbs with* INSULIN DETEMIR (U-100) 100 U* Inject 25 Units subcutaneousl* LISINOPRIL 5 MG TABLET Take 1 tablet by mouth once d* LEVOTHYROXINE 75 MCG TABLET Take 1 tablet by mouth once d* ASPIRIN 81 MG CHEWABLE TABLET Take 1 tablet by mouth once d* Progress Notes: Madison Longoria PT 02/02/2018 3:17 PM Signed Episode Visit Count: 2 Therapist That Will Oversee The Plan Of Care: Madison Longoria PT Start of Care Date: 01/13/18 Onset Date: 01/17/17 Plan of Care Certification Date: 01/13/18 Patient Identified by Name and Date of : Yes REHABILITATION AND SPORTS THERAPY PHYSICAL THERAPY TREATMENT NOTE ASSESSMENT: Romain Mcdermott demonstrated improvements in being able to sit with her hips against the back of her chair and tolerate placing her R foot on her w/c foot rest. Patient with good tolerance to manual IASTM with warm lotion prior to PROM and stretching The patient will continue to benefit from continued skilled physical therapy for manual, ther ex, and gait to patient tolerance. PLAN FOR NEXT VISIT: Continue Manaul therapy to R ankle, stretching of calf muslces and hip flexors to patient tolerance. Standing at // bars, transfers using the sliding board SUBJECTIVE: Patient was able to have her wash hair in sink with the help of her daughter. She is using foot rest on the R since last PT visit. 3 Ibuprofen taken at 10:30am today. Is sitting back in chair with hips against back of chair. Pain Score: 5/10 Pain Location: Foot - Right Description: Aching Frequency: Continuous (pressing down.) OBJECTIVE MEASURES WITH LEVEL OF FUNCTION: Posture / Alignment Posture: (sitting in w/c with R shld elevated and R foot on rest) TREATMENT: Manual Therapy: 1: Sitting in w/c and foot on pillow PT used warm massage lotion to perform IASTM with hands to R ankle and R gastroc/soleus for 15 minutes 2: PROM for RIGHT ankle DF/PF/Inv/Evr 3: RIGHT Passive Gastroc stretching 10 sec, 6x 4: Wrap used to try to pull patient's ankle into more of a DF/Everted position. Skilled Intervention: Manual skills to improve joint mobility, ROM, and decrease pain. Utilized anatomy knowledge of the therapist, and assessment of patient's response to intervention. Therapeutic Activity: 1: Moderate assistance to stand from w/c to // bars 2: Cues to WBAT 5 feet with B UE support 3: Standing to just put weight through a flat R foot without inversion of R foot Skilled Intervention: Moderate verbal cues for maintaining neutral spine alignment. Activity progression based on professional judgment. Gait belt in place Billing: [facility]: Manual Therapy ([id number]): 1:1 time: 25 minutes (2 units: 23- 37 mins) Therapeutic Activity ([id number]): 1:1 time: 16 minutes (1 unit: 8-22 mins) Total time: 41 minutes Madison Longoria PT PROGRESS Observed: 01/17/2018 Status: COMPLETED Source: [place] 9:08 AM [facility] REPOSITORY O ID: [id number] Author: Madison (Pt) Von Service: (none) Author Type: Physical Therapist Type: Progress Notes Filed: 01/17/2018 2:44 PM Note Text: Episode Visit Count: 1 Therapist That Will Oversee The Plan Of Care: Madison Longoria PT Start of Care Date: 01/13/18 Onset Date: 01/17/17 Plan of Care Certification Date: 01/13/18 Patient Identified by Name and Date of : Yes REHABILITATION AND SPORTS THERAPY PHYSICAL THERAPY EVALUATION PLAN OF CARE: Assessment: Romain Mcdermott presents with the diagnosis of 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 She presents with impairments of R foot ROM, B hip contractures, poor posture, inability to stand, inability to weight bear, and inability to walk. She is Max Assist to maybe Max Assist x2. She may benefit from skilled therapy services to improve ROM, flexibility, strength, and be able to return to walking with rollator and prevent further contractures in her feet and hips. She has high anxiety due to her last fall resulting in a fracture of her sternum. Patient was living in [place] but has moved to [place] and is living with her daughter. She has a first floor set up but does not have access to a shower on the first floor. Prognosis: Fair Fair due to: clinical presentation;chronic nature of impairments;coping skills;poor understanding of deficits Goals for Episode of Care: created on 01/13/18 through 04/11/18 [place] in home exercise program. Patient will decrease pain rating by 2 points to meet minimal clinical important difference for numeric pain rating scale. (Goal: 3/10 R ankle) Patient will increase active ROM of R ankle DF/PF/Inversion/Eversion to WNL to allow pt to to achieve neutral postural alignment, improved performance of ADLs and to normalize gait mechanics / gait pattern. Demonstrate improvement on functional score: Patient will improve his/her AM-PAC T-scale score by 4 points to indicate a Minimal Clinical Important Difference. (Goal: 45.55) Patient will require Min assistance for transfers. Patient will be able to walk with a rollator. Patient will demonstrate good posture with sitting and standing. Patient will improve B LE strength to at least 4/5. Patient will be able to dress herself with Min Assist. G CODE REPORTING Based on clinical assessment and the score on the AM-PAC Scale Score Assessment Tool, the G code and corresponding severity modifiers are documented below. Evaluation: 01/13/2018 Current Status: Mobility: Walking and Moving Around: G8978 CL 60-79% impaired Goal Status: Mobility: Walking and Moving Around: G8979 CK 40-59% impaired Planned Interventions, Frequency, and Duration: Current Frequency: 2x/week Duration: 8 weeks Total Number of Visits Planned: 17 Planned Treatment Interventions: Therapeutic exercise;Neuromuscular re-education;Manual therapy;Self-detention management;Gait Training;Patient/Family/Caregiver Education;Body Mechanics Training;General Conditioning;Functional training PLAN FOR NEXT VISIT: Manaul therapy to R ankle, stretching of calf muslces and hip flexors to patient tolerance. Standing at // bars, transfers using the sliding board Patient demonstrates fair understanding of plan of care and treatment. The above goals and plan of care were discussed and agreed upon by patient/family. 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 Started after being in bed for 1 week in hospital. Patient was receiving PT at home due to ketoacidosis and then went to hospital and then went to a senior care facility for 100 days because her nerves were compressed becuase [employer] was pressing on her back?!? Then came home and fractured sterum because her R foot slipped underneath her. Then went back into rehab because didn't have anyone at home to help her in [place]. December 29 moved in with daughter, who lives in [place] and works from home. Patient has a first floor set up minus access to shower. Patient stays in her w/c all the time since 2018. Prior to w/c used 4 wheeled walker (rollator). Patient needs assistance for transfers from w/c to chair and bathroom. Also needs help dressing. Has Diabetic Ketoacidosis and has increased Anxiety of Falling. Daughter Nely joined patient half way through session and perform a Max assist to help transfer patient from w/c to mat table. Functional Limitations: rising from a chair;standing;walking;bending;lifting;physical activities;cleaning;driving;cooking;dressing (tolieting) Prior Level of Function: Required assistance Patient Goals: to do best she can Intake Information: Prescription present Falls Interview: Fall with injury in the last year Pain Score: 5/10 Pain Location: Foot - Right Description: Aching Frequency: Continuous (weight bearing or trying to straighten) Post Treatment Pain Score: No Change OBJECTIVE MEASURES WITH LEVEL OF FUNCTION: Posture / Alignment Posture: Forward head;Increased thoracic kyphosis (sitting with hips forward) LE Observations: Patient has L foot on foot rest and tightly holding R foot in a plantarflexed and inverted position Gait Gait Observation: patient unable to place weight through R foot she puts light pressure on her L foot Balance Static Standing Balance: (Poor) Dynamic Standing Balance: (Unable to perform) Static Sitting Balance: Moderate assist LE AROM R Ankle Plantar Flexion: (40' contracted) R Ankle Inversion: (25' contracted) LE Strength R LE Strength: 3-/5 L LE Strength: 3+/5 Functional Strength Functional Strength: Transfers;Wheelchair mobility Transfers: Max Assistance x1 Wheelchair mobility: Good Special Tests - Ankle Ankle Special Tests: Anterior Drawer for ATFL laxity;Posterior Drawer;Varus Tilt Anterior Drawer for ATFL laxity: Right negative Posterior Drawer: Right negative Varus Tilt: Right negative Education: Education Learning Preferences: Unable to State Barriers: Cognitive Limitations;Desire and Motivation;Emotions;Psychomotor Limitations Learning/educational needs: Plan of Care;Home exercise program;Safety;Health promotion Education Provided: Yes, see treatment interventions for education provided Education Provided To: Patient Education Mode/Type: Explanation/Discussion Response to Education/Teach Back: Requires Review/Additional Education;No Evidence Of Learning TREATMENT: Evaluation Self-Senior Care Management: 1: Recommended keeping her head up and gaze forward when sitting to help improve posture 2: To get other foot rest on wheelchair to all her R foot to have a place to rest 3: To ensure she has good padding on wheelchair for seating to prevent presure sores/ulcers Skilled Intervention: Skilled judgment in the selection of proper modification for activity of daily living/home management based on clinical presentation, deficits, and needs. Billing: [facility]: Evaluation - High Complexity (32653) Educ Home Mgmt (99487): 1:1 time: 15 minutes (1 unit: 8-22 mins) Total time: 67 minutes Madison Longoria PT CNTHERAPY Observed: 01/13/2018 Status: COMPLETED Source: [place] 12:15 PM [facility] REPOSITORY OT/PT/Speech Visit (PTWS) ROMAIN MCDERMOTT ([id number]) 1940 F Date Time Provider Department 01/13/18 12:15 PM MADISON LONGORIA (PT) PTWS Date Time Provider Department Center 01/13/2018 12:15 PM [id number], DIANA (PT)PTWS [facility] Reason for Visit: PT Eval [747] Patient Education [91] Primary Visit Diagnosis:Pain in right foot [M79.671] Other Visit Diagnoses:Hip contracture, left [M24.552] Hip contracture, right [M24.551] Generalized anxiety disorder [F41.1] Allergies As of Date: 01/13/2018 (No Known Allergies) Date Reviewed: 01/07/2018 Reviewed by: Solis ([facility]) Pilar - Fully Assessed Prescriptions as of 01/13/2018 Sig: INSULIN ASPART U-100 100 UNI* 1 unit for 15 g of carbs with* INSULIN DETEMIR (U-100) 100 U* Inject 25 Units subcutaneousl* LISINOPRIL 5 MG TABLET Take 1 tablet by mouth once d* LEVOTHYROXINE 75 MCG TABLET Take 1 tablet by mouth once d* ASPIRIN 81 MG CHEWABLE TABLET Take 1 tablet by mouth once d* Progress Notes: Madison Longoria PT 01/17/2018 2:44 PM Signed Episode Visit Count: 1 Therapist That Will Oversee The Plan Of Care: Madison Longoria PT Start of Care Date: 01/13/18 Onset Date: 01/17/17 Plan of Care Certification Date: 01/13/18 Patient Identified by Name and Date of : Yes REHABILITATION AND SPORTS THERAPY PHYSICAL THERAPY EVALUATION PLAN OF CARE: Assessment: Romain Mcdermott presents with the diagnosis of 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 She presents with impairments of R foot ROM, B hip contractures, poor posture, inability to stand, inability to weight bear, and inability to walk. She is Max Assist to maybe Max Assist x2. She may benefit from skilled therapy services to improve ROM, flexibility, strength, and be able to return to walking with rollator and prevent further contractures in her feet and hips. She has high anxiety due to her last fall resulting in a fracture of her sternum. Patient was living in [place] but has moved to [place] and is living with her daughter. She has a first floor set up but does not have access to a shower on the first floor. Prognosis: Fair Fair due to: clinical presentation;chronic nature of impairments;coping skills;poor understanding of deficits Goals for Episode of Care: created on 01/13/18 through 04/11/18 [place] in home exercise program. Patient will decrease pain rating by 2 points to meet minimal clinical important difference for numeric pain rating scale. (Goal: 3/10 R ankle) Patient will increase active ROM of R ankle DF/PF/Inversion/Eversion to WNL to allow pt to to achieve neutral postural alignment, improved performance of ADLs and to normalize gait mechanics / gait pattern. Demonstrate improvement on functional score: Patient will improve his/her AM-PAC T-scale score by 4 points to indicate a Minimal Clinical Important Difference. (Goal: 45.55) Patient will require Min assistance for transfers. Patient will be able to walk with a rollator. Patient will demonstrate good posture with sitting and standing. Patient will improve B LE strength to at least 4/5. Patient will be able to dress herself with Min Assist. G CODE REPORTING Based on clinical assessment and the score on the AM-PAC Scale Score Assessment Tool, the G code and corresponding severity modifiers are documented below. Evaluation: 01/13/2018 Current Status: Mobility: Walking and Moving Around: G8978 CL 60-79% impaired Goal Status: Mobility: Walking and Moving Around: G8979 CK 40-59% impaired Planned Interventions, Frequency, and Duration: Current Frequency: 2x/week Duration: 8 weeks Total Number of Visits Planned: 17 Planned Treatment Interventions: Therapeutic exercise;Neuromuscular re-education;Manual therapy;Self-detention management;Gait Training;Patient/Family/Caregiver Education;Body Mechanics Training;General Conditioning;Functional training PLAN FOR NEXT VISIT: Manaul therapy to R ankle, stretching of calf muslces and hip flexors to patient tolerance. Standing at // bars, transfers using the sliding board Patient demonstrates fair understanding of plan of care and treatment. The above goals and plan of care were discussed and agreed upon by patient/family. 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 Started after being in bed for 1 week in hospital. Patient was receiving PT at home due to ketoacidosis and then went to hospital and then went to a senior care facility for 100 days because her nerves were compressed becuase [employer] was pressing on her back?!? Then came home and fractured sterum because her R foot slipped underneath her. Then went back into rehab because didn't have anyone at home to help her in [place]. December 29 moved in with daughter, who lives in [place] and works from home. Patient has a first floor set up minus access to shower. Patient stays in her w/c all the time since 2018. Prior to w/c used 4 wheeled walker (rollator). Patient needs assistance for transfers from w/c to chair and bathroom. Also needs help dressing. Has Diabetic Ketoacidosis and has increased Anxiety of Falling. Daughter Nely joined patient half way through session and perform a Max assist to help transfer patient from w/c to mat table. Functional Limitations: rising from a chair;standing;walking;bending;lifting;physical activities;cleaning;driving;cooking;dressing (tolieting) Prior Level of Function: Required assistance Patient Goals: to do best she can Intake Information: Prescription present Falls Interview: Fall with injury in the last year Pain Score: 5/10 Pain Location: Foot - Right Description: Aching Frequency: Continuous (weight bearing or trying to straighten) Post Treatment Pain Score: No Change OBJECTIVE MEASURES WITH LEVEL OF FUNCTION: Posture / Alignment Posture: Forward head;Increased thoracic kyphosis (sitting with hips forward) LE Observations: Patient has L foot on foot rest and tightly holding R foot in a plantarflexed and inverted position Gait Gait Observation: patient unable to place weight through R foot she puts light pressure on her L foot Balance Static Standing Balance: (Poor) Dynamic Standing Balance: (Unable to perform) Static Sitting Balance: Moderate assist LE AROM R Ankle Plantar Flexion: (40' contracted) R Ankle Inversion: (25' contracted) LE Strength R LE Strength: 3-/5 L LE Strength: 3+/5 Functional Strength Functional Strength: Transfers;Wheelchair mobility Transfers: Max Assistance x1 Wheelchair mobility: Good Special Tests - Ankle Ankle Special Tests: Anterior Drawer for ATFL laxity;Posterior Drawer;Varus Tilt Anterior Drawer for ATFL laxity: Right negative Posterior Drawer: Right negative Varus Tilt: Right negative Education: Education Learning Preferences: Unable to State Barriers: Cognitive Limitations;Desire and Motivation;Emotions;Psychomotor Limitations Learning/educational needs: Plan of Care;Home exercise program;Safety;Health promotion Education Provided: Yes, see treatment interventions for education provided Education Provided To: Patient Education Mode/Type: Explanation/Discussion Response to Education/Teach Back: Requires Review/Additional Education;No Evidence Of Learning TREATMENT: Evaluation Self-Senior Care Management: 1: Recommended keeping her head up and gaze forward when sitting to help improve posture 2: To get other foot rest on wheelchair to all her R foot to have a place to rest 3: To ensure she has good padding on wheelchair for seating to prevent presure sores/ulcers Skilled Intervention: Skilled judgment in the selection of proper modification for activity of daily living/home management based on clinical presentation, deficits, and needs. Billing: [facility]: Evaluation - High Complexity (65384) Educ Home Mgmt (78515): 1:1 time: 15 minutes (1 unit: 8-22 mins) Total time: 67 minutes Madison Longoria PT PROGRESS Observed: 01/07/2018 Status: COMPLETED Source: [place] 12:32 PM [facility] REPOSITORY O ID: [id number] Author: Solis Quezada Service: (none) Author Type: Nurse Practitioner Type: Progress Notes Filed: 01/07/2018 1:06 PM Note Text: Chief Complaint Patient presents with: Rx Refills HPI Romain Mcdermott is a 77 year old female who presents here today for Above Complaints. Patient here for prescription refill. Will be establishing with Dr. Coffey in April. New patient to the office, no records available for review through Care Everywhere. Patient comes from [facility]. She just got out of [facility]. Fell and fractured her breast bone approximately 4-5 months ago. PHYSICAL THERAPY was started there, later in her stay. Does have right foot inversion, that developed from long standing sitting in the bed. Has right hip stiffness, spasms. Daughter is requesting home PHYSICAL THERAPY at home or at a local PHYSICAL THERAPY. Does not take pain medications but will take 2 tylenol to PHYSICAL THERAPY. Patient is a type 2 diabetic. Daughter is unclear if she is a type 2 or type 1. She was diagnosed at age 67. She did have an episode of DKA after she had been on metformin for one year and was not following up with her PCP. Using 25 units of Levemir in the morning, 1 unit of Novolog per 15 g of carbs. She checks her glucose 4 times per day. Fasting in the morning is usually in. At this time, she denies any chest pain, shortness of breath, fevers, chills. Leg swelling. Past medical history, appointments, medications, allergies reviewed. Previous Medical History PAST MEDICAL HISTORY Diagnosis Date - DM type 2 (diabetes mellitus, type 2) ([facility]) - Hypothyroidism Previous Surgical History No past surgical history on file. Family History No family history on file. Patient Allergies ALLERGIES No Known Allergies Current Medications No current outpatient prescriptions on file prior to visit. No current facility-administered medications on file prior to visit. Social History Social History Marital status: Single Spouse name: Years of education: Number of children: Social History Main Topics Smoking status: Former Smoker Packs/day: 0.00 Years: 0.00 Smokeless tobacco: Never Used REVIEW OF SYSTEMS: as above ? Reviewed relevant PMHx, PSHx, Social Hx, current medications and allergies. EXAM: BP 99/63 Pulse 81 General Appearance: Well appearing, alert, in no acute distress, well-hydrated, well nourished.. Head: Normocephalic, no masses, lesions, tenderness or abnormalities. Eyes: Anicteric sclera. Pupils are equally round and reactive to light. Extraocular movements are intact. . Ears: External ears normal, canals clear. Nose/Sinuses: Nares normal, septum midline, mucosa normal, no drainage or sinus tenderness. Oropharynx: Lips, mucosa, and tongue normal, teeth and gums normal, oropharynx normal. Lungs: Lungs clear to auscultation. No wheezing, rhonchi, rales. Heart: RRR without murmur, gallop, or rubs. No ectopy. Extremities: No deformities, edema. M/S: Right ankle is inverted, right hip is stiff. Difficult to assess as the patient is in the wheelchair. Health Maintenance List DTAP,TDAP,TD(1 - Tdap) due on 1961 LIPID SCREEN due on 1987 DIABETES SCREEN due on 1987 COLORECTAL CANCER SCREENING,SEE MODIFIER due on 1992 BONE DENSITY due on 2007 ADULT PREVNAR-13 due on 2007 PNEUMOVAX AGE 65 AND OVER WITH 5YR LOOKBACK(1) due on 2007 INFLUENZA(1) due on 01/18/2018 Data reviewed None available for review at time of the encounter. Signed medical records release. ASSESSMENT/PLAN: 1. Acquired inversion deformity of right foot - ICD9: 736.79, ICD10: M21.6X1 (primary diagnosis) - Has inversion of right foot after long period of not ambulating. - CONSULT TO PHYSICAL THERAPY 2. Pain of right hip joint - ICD9: 719.45, ICD10: M25.551 - See #1. - CONSULT TO PHYSICAL THERAPY 3. Hypothyroidism, acquired - ICD9: 244.9, ICD10: E03.9 - Instructed patient on importance of taking on an empty stomach either first thing in the morning or at bedtime. - LEVOTHYROXINE 75 MCG TABLET 4. Controlled type 2 diabetes mellitus without complication, with long-term current use of insulin (HCC) - ICD9: 250.00, V58.67, ICD10: E11.9, Z79.4 The patient is new to me. - Continue current medications - INSULIN ASPART U-100 100 UNIT/ML SUBCUTANEOUS PEN - INSULIN DETEMIR (U-100) 100 UNIT/ML (3 ML) SUBCUTANEOUS PEN - LISINOPRIL 5 MG TABLET - ASPIRIN 81 MG CHEWABLE TABLET - HGB A1C - COMP METABOLIC PANEL - LIPID PANEL BASIC Get records, keep establishing appointment with Dr. Coffey, get labs prior. Solis Quezada APRN.SHERIN BRICENO Observed: 01/07/2018 Status: COMPLETED Source: [place] 12:20 PM [facility] REPOSITORY Office Visit (FAMPWS) BALDEMARROMAIN Marylou ([id number]) 1940 F Date Time Provider Department 01/07/18 12:20 PM SOLIS QUEZADA (RETAIL SALES DIRECTOR) FAMWS During your visit today, we recorded the following information about you: Pulse Blood pressure 81/minute 99/63 Solis Quezada APRN.SHERIN 01/07/2018 1:06 PM Signed Chief Complaint Patient presents with: Rx Refills HPI Romain Mcdermott is a 77 year old female who presents here today for Above Complaints. Patient here for prescription refill. Will be establishing with Dr. Coffey in April. New patient to the office, no records available for review through Care Everywhere. Patient comes from [facility]. She just got out of [facility]. Fell and fractured her breast bone approximately 4-5 months ago. PHYSICAL THERAPY was started there, later in her stay. Does have right foot inversion, that developed from long standing sitting in the bed. Has right hip stiffness, spasms. Daughter is requesting home PHYSICAL THERAPY at home or at a local PHYSICAL THERAPY. Does not take pain medications but will take 2 tylenol to PHYSICAL THERAPY. Patient is a type 2 diabetic. Daughter is unclear if she is a type 2 or type 1. She was diagnosed at age 67. She did have an episode of DKA after she had been on metformin for one year and was not following up with her PCP. Using 25 units of Levemir in the morning, 1 unit of Novolog per 15 g of carbs. She checks her glucose 4 times per day. Fasting in the morning is usually in. At this time, she denies any chest pain, shortness of breath, fevers, chills. Leg swelling. Past medical history, appointments, medications, allergies reviewed. Previous Medical History PAST MEDICAL HISTORY Diagnosis Date - DM type 2 (diabetes mellitus, type 2) (HCC) - Hypothyroidism Previous Surgical History No past surgical history on file. Family History No family history on file. Patient Allergies ALLERGIES No Known Allergies Current Medications No current outpatient prescriptions on file prior to visit. No current facility-administered medications on file prior to visit. Social History Social History Marital status: Single Spouse name: Years of education: Number of children: Social History Main Topics Smoking status: Former Smoker Packs/day: 0.00 Years: 0.00 Smokeless tobacco: Never Used REVIEW OF SYSTEMS: as above ? Reviewed relevant PMHx, PSHx, Social Hx, current medications and allergies. EXAM: BP 99/63 Pulse 81 General Appearance: Well appearing, alert, in no acute distress, well-hydrated, well nourished.. Head: Normocephalic, no masses, lesions, tenderness or abnormalities. Eyes: Anicteric sclera. Pupils are equally round and reactive to light. Extraocular movements are intact. . Ears: External ears normal, canals clear. Nose/Sinuses: Nares normal, septum midline, mucosa normal, no drainage or sinus tenderness. Oropharynx: Lips, mucosa, and tongue normal, teeth and gums normal, oropharynx normal. Lungs: Lungs clear to auscultation. No wheezing, rhonchi, rales. Heart: RRR without murmur, gallop, or rubs. No ectopy. Extremities: No deformities, edema. M/S: Right ankle is inverted, right hip is stiff. Difficult to assess as the patient is in the wheelchair. Health Maintenance List DTAP,TDAP,TD(1 - Tdap) due on 1961 LIPID SCREEN due on 1987 DIABETES SCREEN due on 1987 COLORECTAL CANCER SCREENING,SEE MODIFIER due on 1992 BONE DENSITY due on 2007 ADULT PREVNAR-13 due on 2007 PNEUMOVAX AGE 65 AND OVER WITH 5YR LOOKBACK(1) due on 2007 INFLUENZA(1) due on 01/18/2018 Data reviewed None available for review at time of the encounter. Signed medical records release. ASSESSMENT/PLAN: 1. Acquired inversion deformity of right foot - ICD9: 736.79, ICD10: M21.6X1 (primary diagnosis) - Has inversion of right foot after long period of not ambulating. - CONSULT TO PHYSICAL THERAPY 2. Pain of right hip joint - ICD9: 719.45, ICD10: M25.551 - See #1. - CONSULT TO PHYSICAL THERAPY 3. Hypothyroidism, acquired - ICD9: 244.9, ICD10: E03.9 - Instructed patient on importance of taking on an empty stomach either first thing in the morning or at bedtime. - LEVOTHYROXINE 75 MCG TABLET 4. Controlled type 2 diabetes mellitus without complication, with long-term current use of insulin (HCC) - ICD9: 250.00, V58.67, ICD10: E11.9, Z79.4 The patient is new to me. - Continue current medications - INSULIN ASPART U-100 100 UNIT/ML SUBCUTANEOUS PEN - INSULIN DETEMIR (U-100) 100 UNIT/ML (3 ML) SUBCUTANEOUS PEN - LISINOPRIL 5 MG TABLET - ASPIRIN 81 MG CHEWABLE TABLET - HGB A1C - COMP METABOLIC PANEL - LIPID PANEL BASIC Get records, keep establishing appointment with Dr. Coffey, get labs prior. Solis Quezada APRN.[facility] Referring Provider: SELF [[id number]] Allergies As of Date: 01/07/2018 (No Known Allergies) Date Reviewed: 01/07/2018 Reviewed by: Solis (Media Marketing Coordinator) Pilar - Fully Assessed Reason for Visit: Rx Refills [128] Primary Visit Diagnosis:Acquired inversion deformity of right foot [M21.6X1] Other Visit Diagnoses:Pain of right hip joint [M25.551] Hypothyroidism, acquired [E03.9] Controlled type 2 diabetes mellitus without complication, with long-term current use of insulin (HCC) [E11.9, Z79.4] Order(s):insulin aspart U-100 (NOVOLOG FLEXPEN U-100 INSULIN) 100 unit/mL inpn1 unit for 15 g of carbs with meals.Disp: 5 PenRfl: 3 insulin detemir U-100 (LEVEMIR FLEXTOUCH U-100 INSULN) 100 unit/mL (3 mL) inpn injectionInject 25 Units subcutaneously every morning.Disp: 5 PenRfl: 2 lisinopril (ZESTRIL, PRINIVIL) 5 mg tabletTake 1 tablet by mouth once daily.Disp: 90 tabletRfl: 1 levothyroxine (SYNTHROID) 75 mcg tabletTake 1 tablet by mouth once daily. Take on empty stomach. For ThyroidDisp: 90 tabletRfl: 1 aspirin 81 mg chewable tabletTake 1 tablet by mouth once daily.Disp: 90 tabletRfl: 1 CONSULT TO PHYSICAL THERAPY [9069] Order #: [id number]: 1 HGB A1C [OSAQH5Z] Order #: [id number] FUTURE COMP METABOLIC PANEL [SQCMP] Order #: [id number] FUTURE LIPID PANEL BASIC [SQLIPB] Order #: [id number] FUTURE TSH BLD [SQTSH] Order #: [id number] FUTURE Prescriptions as of 01/07/2018 Sig: INSULIN ASPART U-100 100 UNI* 1 unit for 15 g of carbs with* INSULIN DETEMIR (U-100) 100 U* Inject 25 Units subcutaneousl* LISINOPRIL 5 MG TABLET Take 1 tablet by mouth once d* LEVOTHYROXINE 75 MCG TABLET Take 1 tablet by mouth once d* ASPIRIN 81 MG CHEWABLE TABLET Take 1 tablet by mouth once d* Problem List As Of Date 01/07/2018 Noted Resolved Hypothyroidism, acquired [E03.9] INVALID FOR* Hypothyroidism [E03.9] DM type 2 (diabetes mellitus, type 2) ([facility]) [E1* Prescriptions ordered this encounter Disp Refills Start End INSULIN ASPART U-100 100 UNIT/ML CESPEDES* 5 Pen 3 01/07/2018 Si unit for 15 g of carbs with meals. INSULIN DETEMIR (U-100) 100 UNIT/ML * 5 Pen 2 01/07/2018 Route: SUBCUTANEOUS Sig: Inject 25 Units subcutaneously every morning. LISINOPRIL 5 MG TABLET 90 t* 1 01/07/2018 Route: ORAL Sig: Take 1 tablet by mouth once daily. LEVOTHYROXINE 75 MCG TABLET 90 t* 1 01/07/2018 Route: ORAL Sig: Take 1 tablet by mouth once daily. Take on empty stomach. For Thyroid ASPIRIN 81 MG CHEWABLE TABLET 90 t* 1 01/07/2018 Route: ORAL Sig: Take 1 tablet by mouth once daily. Disposition: Return if symptoms worsen or fail to improve. Follow-up and Disposition History Recorded Letter Text [facility] Department of Family Medicine [address], [place] [address] 01/07/2018 THIS IS A PRESCRIPTION FOR HANDICAPPED PARKING PERMIT Re: Romain Marylou Mcdermott [address] [place] [address] The above named person requires a disability parking placard. DURATION: LIFETIME EXPIRATION: DATE + 5 YEARS Sincerely, Solis Quezada APRN.CNP Encounter Status:Closed by SOLIS QUEZADA CNP on 01/07/18 ALLERGIES ALLERGIES DATE TYPE / CODE NAME / CODE REACTION SEVERITY SOURCE 04/21/2018 Drug No Known Unknown [facility] Allergy/416 Allergies/D63567 Hospital 887176(SNOM 0388(RXNORM) Repository ED CT) Drug NO KNOWN [facility] Class/55403 ALLERGIES [facility] 1003(SNOMED Repository CT) ENCOUNTERS ENCOUNTERS ADMIT/DISCHARGE ACCOUNT ADMITTING ENCOUNTER LOCATION SOURCE NUMBER CLASS 04/22/2018/04/25/20 [id number] Angie Gregorio Inpatient [facility] 18 Jenna Encounter [facility] ing:[id number]: Repository [id number]: 1 04/22/2018 [id number] Angie Gregorio Ambulatory [facility]:[place] Repository 04/22/2018 [id number] Angie Gregorio Ambulatory BMSBuilding:[place] Repository 04/22/2018 [id number] Angie Gregorio Ambulatory BMSBuilding:[place] [facility] Repository 04/22/2018 [id number] Angie Gregorio Ambulatory BMSBuilding:[place] [facility] Repository 04/21/2018 [id number] Angie Gregorio Ambulatory BMSBuilding:[place] [facility] Repository 04/21/2018 [id number] Angie Gregorio Ambulatory BMSBuilding:[place] Repository 04/21/2018/04/22/20 [id number] Ambulatory [facility] [place] Repository 03/31/2018/04/02/20 [id number] Ambulatory [facility] [place] Repository 03/26/2018/03/27/20 [id number] Ambulatory [facility] [place] Repository 03/24/2018/03/25/20 [id number] Ambulatory [facility] [place] Repository 03/21/2018/03/24/20 [id number] Ambulatory [facility] [place] Repository 03/20/2018/03/20/20 [id number] Ambulatory [facility] [place] Repository 03/18/2018/03/19/20 [id number] Ambulatory [facility] [place] Repository 03/14/2018/03/17/20 [id number] Ambulatory [facility] [place] Repository 03/14/2018/03/17/20 [id number] Ambulatory [facility] [place] Repository 03/11/2018/03/13/20 [id number] Ambulatory [facility] [place] Repository 03/07/2018/03/07/20 [id number] Ambulatory [facility] [place] Repository 03/07/2018/03/10/20 [id number] Ambulatory [facility] [place] Repository 03/06/2018/03/10/20 [id number] Ambulatory [facility] [place] Repository 03/04/2018/03/05/20 [id number] Ambulatory [facility] [place] Repository 02/21/2018/02/26/20 [id number] Ambulatory [facility] [place] Repository 02/18/2018/02/19/20 [id number] Ambulatory [facility] [place] Repository 02/14/2018/02/18/20 [id number] Ambulatory [facility] [place] Repository 02/11/2018/02/14/20 [id number] Ambulatory [facility] [place] Repository 02/07/2018/02/11/20 [id number] Ambulatory [facility] [place] Repository 02/04/2018/02/06/20 [id number] Ambulatory [facility] [place] Repository 01/31/2018/02/04/20 [id number] Ambulatory [address] Repository 01/13/2018/01/18/20 [id number] Ambulatory [address] Repository 01/07/2018/01/09/20 [id number] Ambulatory [address] Repository PAYERS PAYERS ENCOUNTER GUARANTOR PAYER SUBSCRIBER SOURCE 04/22/2018 ROMAIN iHckman Primary ROMAIN Hickman Anais [id number] Insurance:MEDICARE DETWEILERDOB: Community [place] PART A [facility] [id number] Number: Repository [address]Oap: [phone] [id number] [phone] () Date:2018-04-21 04/22/2018 Secondary NOT GIVENUNK [place] Insurance:SELF PAY [facility] Number: Effective Repository Date:2018-04-21 04/22/2018 ROMAIN Hickman Primary ROMAIN Hickman Anais [id number] Insurance:MEDICARE DETWEILERDOB: Community [place] PART A [facility] [id number] Number: Repository [address]Cnl: 330 [id number] [phone] () Date:2018-04-21 04/22/2018 Secondary NOT GIVENUNK [place] Insurance:SELF PAY [facility] Number: Effective Repository Date:2018-04-22 04/22/2018 ROMAIN Hickman Primary ROMAIN Hickman Anais [id number] Insurance:MEDICARE DETWEILERDOB: Community [place] PART A [facility] [id number] Number: Repository [address]Sng: 330 [id number] [phone] (HP) Date:2018-04-21 04/22/2018 Secondary NOT GIVENUNK [place] Insurance:SELF PAY [facility] Number: Effective Repository Date:2018-04-22 04/22/2018 ROMAIN Hickman Primary ROMAIN Hickman Anais [id number] Insurance:MEDICARE DETWEILERDOB: Community [place] [employer] A [facility] [id number] Number: Repository [address]Www: [phone] [id number] [phone] () Date:2018-04-21 04/22/2018 Secondary NOT GIVENUNK [place]ais Insurance:SELF PAY [facility] Effective Repository Date:2018-04-22 04/22/2018 ROMAIN Hickman Primary ROMAIN [place] [id number] Insurance:MEDICARE DETWEILERDOB: Community [place] PART A [id number] Number[place] Repository [address]Tny: 330 [id number] [phone] () Date:2018-04-21 04/22/2018 Secondary NOT GIVENUNK Anais Insurance:SELF PAY [facility] Number: Effective Repository Date:2018-04-22 04/21/2018 ROMAIN Hickman Primary ROMAIN Hickman [place] [id number] Insurance:MEDICARE DETWEILERDOB: Community [place] PART A [id number] [place] Number: Repository [address]Xir: 330 [id number] [phone] () Date:2018-04-21 04/21/2018 Secondary NOT GIVENUNK Anais Insurance:SELF PAY [facility] Number: Effective Repository Date:2018-04-21 04/21/2018 ROMAIN Hickman Primary ROMAIN Hickman Anais [id number] Insurance:MEDICARE DETWEILERDOB: Community [place] PART A [facility] [id number] [place] Number: Repository [address]Ttn: 330 [id number] [phone] () Date:2018-04-21 04/21/2018 Secondary NOT GIVENUNK [place] Insurance:SELF PAY [facility] Number: Effective Repository Date:2018-04-21
== END 2018-04-25 19:15 | disposition skilled nursing facility (03) | DRG 92 ==
LOC: ED 14:50 → MS3 15:04
PROVIDERS: Admitting Provider Student in an Organized Health Care Education/Training Program; Emergency Provider Emergency Medicine; Family Provider Family Medicine; PCP Family Medicine; Visit Provider Internal Medicine
DX: R25.2 Cramp and spasm (principal); E46 Unspecified protein-calorie malnutrition; R53.81 Other malaise; M79.604 Pain in right leg; M24.471 Recurrent dislocation, right ankle; G89.29 Other chronic pain; E11.9 Type 2 diabetes mellitus without complications; F41.9 Anxiety disorder, unspecified; E03.9 Hypothyroidism, unspecified; Z79.4 Long term (current) use of insulin; Z87.891 Personal history of nicotine dependence; Z68.20 Body mass index [BMI] 20.0-20.9, adult
CPT/HCPCS: 36415; 73718; 80048; 82550; 82962; 83036; 84443; 85025; 97162; 97166; 97530; 97802; 99284; J7040; A4216; J2405

== ENCOUNTER → 2018-07-30 05:00 | Outpatient (REF) | payer MEDICARE, SELFPAY ==
[2018-07-30 09:27] LABS: Hemoglobin A1c 7.8 % (4.2-6.3)
== END ==
LOC: OLS.AVED 05:00
PROVIDERS: Visit Provider Family Medicine
DX: E11.9 Type 2 diabetes mellitus without complications (principal)
CPT/HCPCS: 36415; 83036

== ENCOUNTER → 2018-07-31 05:00 | Outpatient (REF) | payer MEDICARE, SELFPAY ==
[2018-07-31 07:47] LABS: Hematocrit 40.5 % (37-47); Hemoglobin 12.9 g/dl (12.0-15.0); Mean Corp Hgb Conc 31.9 g/gl (32-36); Mean Corpuscular Hgb 28.5 pg (27.0-32.0); Mean Corpuscular Volume 89.4 fL (81-99); Platelet Count 166 K/mm3 (150-450); RBC Distribution Width CV 14.5 % (11.6-14.6); RBC Distribution Width SD 46.6 fl (35.1-43.9); Red Blood Count 4.53 M/mm3 (4.2-5.4); White Blood Count 5.6 K/mm3 (4.4-11.0)
[2018-07-31 07:52] LABS: Scan Indicated on CBC? Y/N NO
[2018-07-31 07:59] LABS: Anion Gap 4 (5-15); BUN 22 mg/dL (7-18); Calcium,Total 8.7 mg/dL (8.5-10.1); Chloride 104 mmol/L (98-107); Creatinine, Serum 0.67 mg/dL (0.55-1.02); EST Glomerular Filtration Rate 91 mL/min (>60); Est Glom Filt Rate - Afr Amer 111 mL/min (>60); Glucose 258 mg/dL (74-106); Potassium 4.8 mmol/L (3.5-5.1); Sodium Level 136 mmol/L (136-145)
== END ==
LOC: OLS.AVED 05:00
PROVIDERS: Visit Provider Family Medicine
DX: E11.9 Type 2 diabetes mellitus without complications (principal); E03.9 Hypothyroidism, unspecified
CPT/HCPCS: 36415; 80048; 85027

== ENCOUNTER → 2018-08-25 15:45 | Outpatient (REF) | payer MEDICARE, SELFPAY ==
[2018-08-26 08:13] LABS: Mucous, Urine 0 SEEN /hpf (<or=2+); Red Blood Cells-Urine 0 SEEN /hpf (0-5)
[2018-08-26 08:27] LABS: Color, Urine Yellow (Yellow); Glucose, Dipstick 250 mg/dl (Normal); Ketone-Dipstick 50 mg/dl (Negative); Leukocyte Esterase-Dipstick 25 /ul (Negative); Nitrite-Dipstick Negative (Negative); Occult Blood-Urine Negative /ul (Negative); Protein-Dipstick 15 mg/dl (Negative); Specific Gravity, Urine 1.025 (1.002-1.030); Urine Bilirubin Dipstick Negative (Negative); Urine Clarity Cloudy (Clear); Urine Urobilinogen Normal (Normal)
[2018-08-26 08:52] LABS: Amorphous Sediment 1+; Bacteria 3+ /hpf (None Seen); Calcium Oxalate Crystals Ur RARE /hpf (<or=2+); Squamous Epithelial Cells - UA 0-5 SEEN /hpf (5-10); White Blood Cells 0-5 SEEN /hpf (0-5)
== END ==
LOC: OLS.AVED 15:45
PROVIDERS: Visit Provider Family Medicine
DX: N39.0 Urinary tract infection, site not specified (principal)
CPT/HCPCS: 81001; 87086; 87088

== ENCOUNTER → 2018-08-28 13:20 | Outpatient (REF) | payer MEDICARE, SELFPAY ==
[2018-08-28 14:37] LABS: Color, Urine Yellow (Yellow); Glucose, Dipstick 1000 mg/dl (Normal); Ketone-Dipstick 50 mg/dl (Negative); Leukocyte Esterase-Dipstick Negative /ul (Negative); Nitrite-Dipstick Negative (Negative); Occult Blood-Urine Negative /ul (Negative); Protein-Dipstick 30 mg/dl (Negative); Urine Bilirubin Dipstick Negative (Negative); Urine Clarity Sl. Cloudy (Clear); Urine Urobilinogen Normal (Normal)
[2018-08-28 14:44] LABS: Bacteria RARE /hpf (None Seen); Mucous, Urine RARE /hpf (<or=2+); Red Blood Cells-Urine 0-5 SEEN /hpf (0-5); Squamous Epithelial Cells - UA 0-5 SEEN /hpf (5-10); White Blood Cells 0-5 SEEN /hpf (0-5)
== END ==
LOC: OLS.AVED 13:20
PROVIDERS: Visit Provider Family Medicine
DX: N39.0 Urinary tract infection, site not specified (principal)
CPT/HCPCS: 81001; 87086; 87088

== ENCOUNTER 2018-11-27 21:25 | Observation (INO) | payer MEDICARE, MEDICAID, SELFPAY ==
[2018-11-27 21:26] VITALS: BP 129/94; PULSE 93; RESP 18; TEMP 36.8; O2SAT 98; BMI 21.7
[2018-11-27 21:35] LABS: Bedside Glucose 423 mg/dL (70-110)
[2018-11-27] MEDS: 0.9% Normal Saline 1,000 ML 1000 ML IV (22:00)
[2018-11-27 22:19] LABS: Anion Gap 12 (5-15); BUN 24 mg/dL (7-18); BUN/Creat Ratio 29.7 RATIO (10-20); Calcium,Total 8.8 mg/dL (8.5-10.1); Chloride 101 mmol/L (98-107); Creatinine, Serum 0.81 mg/dL (0.55-1.02); EST Glomerular Filtration Rate 73 mL/min (>60); Est Glom Filt Rate - Afr Amer 89 mL/min (>60); Estimated Creatinine Clearance 51.02 ml/min; Glucose 432 mg/dL (74-106); Potassium 4.6 mmol/L (3.5-5.1); Sodium Level 136 mmol/L (136-145)
[2018-11-27 22:23] LABS: Absolute Lymphocyte Count 1.53 X10^3/ul (0.83-4.51); Absolute Neutrophil Count 9.6 X10^3/uL (2.0-7.7); Basophil# 0.02 X10^3/uL; Basophil% 0.2 % (0-1); Hematocrit 38.4 % (37-47); Hemoglobin 12.8 g/dl (12.0-15.0); Lymphocyte # 1.53 X10^3/ul (4.0); Lymphocyte % 13.6 % (19-41); Mean Corp Hgb Conc 33.3 g/gl (32-36); Mean Corpuscular Hgb 28.8 pg (27.0-32.0); Mean Corpuscular Volume 86.5 fL (81-99); Mean Platelet Vol. 11.1 fl (6.2-12.0); Monocyte# 0.04 X10^3/uL; Monocyte% 0.4 % (0-10); Neutrophil % 85.5 % (47-70); Platelet Count 162 K/mm3 (150-450); RBC Distribution Width CV 13.8 % (11.6-14.6); RBC Distribution Width SD 43.7 fl (35.1-43.9); Red Blood Count 4.44 M/mm3 (4.2-5.4); White Blood Count 11.2 K/mm3 (4.4-11.0)
[2018-11-27 22:25] LABS: POSITIVE COUNT NO; POSITIVE DIFFERENTIAL NO; POSITIVE MORPHOLOGY NO
[2018-11-27 22:40] LABS: Bedside Glucose 394 mg/dL (70-110)
[2018-11-27] MEDS: Insulin Lispro 100 UNIT/ML INSULN.PEN 15 UNIT SC (23:07)
[2018-11-27 23:38] VITALS: BP 107/90; PULSE 86; RESP 18; TEMP 38.3; O2SAT 92
--- NOTE | 2018-11-27 23:50 | RAD_ITS ---
STUDY: X-RAY CHEST REASON FOR EXAM: Female, 78 years old. Fever. TECHNIQUE: Single AP portable view of the chest. COMPARISON: None. FINDINGS: The lungs are mildly underexpanded. There are mild fibrotic changes in the lung apices. There is mild bilateral basilar atelectasis or fibrosis. There are no confluent pulmonary infiltrates. There is no demonstrated pleural abnormality. Normal size heart. Normal mediastinum and angela. Normal visualized pulmonary arteries. There is atherosclerotic calcification of the aortic arch. There are no visualized acute osseous abnormalities. There is no demonstrated abnormality of the visualized soft tissue structures of the upper abdomen. RAD/Chest 1 View (Portable) IMPRESSION: No evidence for acute cardiopulmonary pathology. Electronically Signed: Matthew Smith MD at 0:12 EDT , Service support ,
--- NOTE | 2018-11-27 23:52 | ED.DCSUM_ITS ---
- ER Visit Summary Date of Service: 11/27/18 Chief Complaint: Nausea and vomiting and elevated blood sugar History of Present Illness: The patient is a 78 F history of insulin-dependent diabetes. Patient is a client of the [facility]. Today she had a low blood sugar in the 20s or 30s and blood sugar around 450. She is also had nausea and vomiting. No reported fever. No obvious diarrhea. I did speak to the patient's daughter who presented to the ER after her initial work-up was started. Physical Examination: Elderly female vital signs are stable and afebrile. Pulse ox 98% on room air no hypoxia. HEENT exam atraumatic. Dry mucous membranes. Eyes are open. Pupils are equal and symmetrical at 3 mm. Neck nontender. No meningismus. No lymphadenopathy. Lungs clear to auscultation bilaterally. Heart regular rhythm no murmur rate about 90. Abdomen is soft and nontender. Nondistended. Normal bowel sounds. No signs of obstruction. Moving all 4 extremities. No cellulitis or significant rashes. Back is nontender. Neurologically she is awake. She is alert she does answer questions and moves all of her extremities. She does follow commands. Test Results: CBC showed white count of 11,000. Hemoglobin 12. No bands electrolytes unremarkable gap of 12. Glucose 432 BUN 24 creatinine is 0.8 consistent with dehydration. Initial serum ketones were moderate which is most likely from her dehydration could be from her hyperglycemia. Currently without an elevated anion gap I think she is not in DKA. Emergency Department Course and Treatment: Treated with a first liter of normal saline and a second is now running. I did give her subcu insulin nausea Lennar 15 units. Blood sugar will be rechecked. While in the emergency department the patient developed a low-grade fever of 100.7. Blood cultures are being obtained. As is a portable chest x-ray and a straight cath UA. I have discussed all this with the daughter. Also p.o. Tylenol. Treatment Plan: Initially the patient was not febrile since that has occurred we will get additional labs. Patient be turned over to the overnight physician. I have already spoken to the hospitalist and most likely the patient will need to be admitted. Disposition: Admission Impression: Acute nausea and vomiting Acute dehydration Acute hyperglycemia Elevated serum ketones secondary to dehydration and hyperglycemia. Fever History of insulin diabetes This note was generated with Get-[employer] dictation software. It may contain incorrect words, spelling, and punctuation that were not noted in review of the chart prior to signing ED Disposition - Plan for ED Patient: Referrals: Rg Kwon MD [Primary Care Provider] -
[2018-11-28] VITALS (8 sets, daily range): BP systolic 80–123; BP diastolic 47–93; PULSE 80–125; RESP 16–22; TEMP 36.4–37.7; O2SAT 93–98; BMI 20.5
[2018-11-28] MEDS: 0.9% Normal Saline 1,000 ML 999 ML IV ×2 (00:06→03:10)
[2018-11-28 00:15] LABS: Bacteria 0 SEEN /hpf (None Seen); Mucous, Urine 0 SEEN /hpf (<or=2+); Squamous Epithelial Cells - UA 0 SEEN /hpf (5-10); White Blood Cells 0 SEEN /hpf (0-5)
[2018-11-28 00:21] LABS: Bedside Glucose 321 mg/dL (70-110)
[2018-11-28 00:22] LABS: Color, Urine Yellow (Yellow); Glucose, Dipstick 1000 mg/dl (Normal); Leukocyte Esterase-Dipstick Negative /ul (Negative); Nitrite-Dipstick Negative (Negative); Occult Blood-Urine 10 /ul (Negative); Protein-Dipstick Negative (Negative); Specific Gravity, Urine 1.015 (1.002-1.030); Urine Bilirubin Dipstick Negative (Negative); Urine Clarity Clear (Clear); Urine Urobilinogen Normal (Normal)
[2018-11-28 00:23] LABS: Ketone-Dipstick 150 mg/dl (Negative)
[2018-11-28 00:32] LABS: Red Blood Cells-Urine 0-5 SEEN /hpf (0-5)
--- NOTE | 2018-11-28 00:59 | ED.RN ---
daughter refused mother to get tylenol because she is very sensitive
--- NOTE | 2018-11-28 01:09 | PCM.HP.STD ---
Problem List (1) Type 2 diabetes mellitus Status: Acute Qualifiers: Diabetes mellitus supervisor intermediates insulin use: with supervisor intermediates use Diabetes mellitus complication status: with neurologic complications Diabetes mellitus complication detail: with polyneuropathy Qualified Code(s): E11.42 - Type 2 diabetes mellitus with diabetic polyneuropathy; Z79.4 - custodial (current) use of insulin (2) Debility Status: Chronic (3) Chronic back pain Status: Chronic Qualifiers: Back pain location: back pain in unspecified location (4) Hypothyroidism Status: Chronic Qualifiers: Hypothyroidism type: unspecified Qualified Code(s): E03.9 - Hypothyroidism, unspecified (5) Anxiety and depression Status: Chronic History of Present Illness Date of Admission: 11/28/18 Chief Complaint: Nausea, vomiting, hyperglycemia - 1 day The patient is a 78 year old F with past medical history of type II DM on insulin, complicated by peripheral neuropathy, chronic back pain, on baclofen, resident in [place] who was said to be complaining of headache on the morning of the admission. Her blood sugar was found to be 23. Patient was treated with sugary foods. Her blood sugar subsequently showed up to 450. Subsequently started to have nausea and vomiting. No diarrhea. In the emergency department, patient's initial vitals was 90 8.2F, heart rate 93, blood pressure 129/94, respiratory rate was 18, SPO2 is 98% on room air. She later developed a low grade fever of 100 point 9F. Blood cultures were taken. Her white cell count was 11.2, Hb 12.8, platelet count 162, BMP was unremarkable except for elevated BUN. Her anion gap was 12. Her blood glucose was 432. She received a couple doses of insulin blood sugar came down to 321. Patient's admitting UA was remarkable only for glucose and ketones. Chest x-ray shows no acute cardiopulmonary process. Past Medical History Past Medical History (Chronic Problems): Chronic Problems Debility (Chronic) Subluxation of right ankle joint (Chronic) Chronic back pain (Chronic) Hypothyroidism (Chronic) Anxiety and depression (Chronic) Allergies No Known Allergies Allergy (Verified 04/21/18 10:00) Home Medications: Ambulatory Orders Medication Instructions Recorded Acetaminophen [Tylenol Extra 1,000 mg PO PRN PRN 04/21/18 Strength] Insulin Detemir [Levemir FlexPen] 22 units SC DAILY 04/21/18 Levothyroxine [Synthroid] 75 mcg PO DAILY 04/21/18 Baclofen 10 mg PO BID 11/27/18 Baclofen 15 mg PO QHS 11/27/18 Duloxetine Hcl [Cymbalta] 60 mg PO DAILY 11/27/18 Insulin Lispro [Humalog KwikPen] See Protocol SQ ACHS 11/27/18 Lorazepam [Ativan] 1 mg PO DAILY 11/27/18 Surgical History: no surgical history Psychiatric History: No pertinent psych hx 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 Lives: Senior Living Smoking Status: Former smoker Tobacco Use: Non-smoker Alcohol: None Drugs: None - *Family History Paternal History Items: Heart Disease - CHF Maternal History Items: Cancer - breast Review of Systems Constitutional: Denies: Anorexia, Chills, Fever, Weakness, Weight Change Eyes: Denies: Blurred vision, Cataracts, Conjunctivae Inflammation, Pain, Redness, Vision Change HEENT: Denies: Difficulty Hearing, Difficulty Swallowing, Head Aches, Hearing Changes, Sinus Congestion, Sinus Drainage Cardiovascular: Denies: Chest Pain, Claudication, Orthopnea, Palpitations, Paroxysmal Noc. Dyspnea Respiratory: Denies: Cough, Shortness of breath at rest, Shortness of breath upon exertion, Sputum production Gastrointestinal: Denies: Abdominal Pain, Nausea, Vomiting Genitourinary: Denies: Dysuria, Frequency, Incontinence, Nocturia Musculoskeletal: Reports: Back Pain, Muscle pain. Denies: Joint Pain, Joint Tenderness Skin: Denies: Dryness, Jaundice, Rash, Wounds Neurological: Denies: Balance problems, Focal weakness, Numbness, Tingling Psychiatric: Denies: Anxiety, Depression, Homicidal Ideations, Suicidal Ideations Endocrine: Denies: Change in Body Habitus Hematologic/ Lymphatic: Denies: Easy Bruising, Easy Bleeding VTE Information - Inpt Only VTE Present on Admission: No VTE Pharm Prophylaxis ordered?: Yes - Physical Exam General: Alert, Oriented x3, Cooperative, No apparent distress HEENT: Atraumatic, PERRLA, EOMI, Normocephalic Oral: Dry Mucosa Neck: Supple Lungs: Clear to auscultation, Normal air movement Cardiovascular: Regular rate, Regular Rhythm, Normal S1, Normal S2, No murmurs Abdomen: Bowel Sounds Present, Soft, Non Tender, Non-Distended, No Hepato-splenomegaly Extremities: No edema Skin: No rashes, No breakdown Musculoskeletal: Tenderness - over the lower back with spasms Lymphatic: No Cervical, Supraclavicular, or Inguinal Adenopathy Neurological: Cranial nerves II-XII grossly intact, Neuro grossly intact Psych/Mental Status: Normal Affect, Appropriate Vital Signs Temp Pulse Resp BP Pulse Ox 99.9 F H 120 H 20 H 91/61 97 11/28/18 01:02 11/28/18 01:02 11/28/18 01:02 11/28/18 01:02 11/28/18 01:02 Oxygen Delivery Method Room Air Weight: 57.3 kg Body Mass Index (BMI) 21.7 Finger Stick Blood Glucose 321 Laboratory Tests Past 24 Hrs 11/27/18 11/27/18 11/27/18 21:35 21:35 21:35 WBC 11.2 H RBC 4.44 Hgb 12.8 Hct 38.4 MCV 86.5 MCH 28.8 MCHC 33.3 RDW 13.8 RDW Differential 43.7 Plt Count 162 MPV 11.1 Immature Gran % (Auto) 0.300 Neut % (Auto) 85.5 H Lymph % (Auto) 13.6 L Martin % (Auto) 0.4 Eos % (Auto) 0.0 Baso % (Auto) 0.2 Absolute Neuts (auto) 9.6 H Absolute Lymphs (auto) 1.53 Total Counted Not Reportable Sodium 136 Potassium 4.6 Chloride 101 Carbon Dioxide 23.0 Anion Gap 12 BUN 24 H Creatinine 0.81 Estim Creat Clear Calc 51.02 Est GFR (MDRD) Af Amer 89 Est GFR (MDRD) Non-Af 73 BUN/Creatinine Ratio 29.7 H Glucose 432 H Calcium 8.8 Urine Color Urine Clarity Urine pH Ur Specific [place] Urine Protein Urine Glucose (UA) Urine Ketones Urine Occult Blood Urine Nitrite Urine Bilirubin Urine Urobilinogen Ur Leukocyte Esterase Urine RBC Urine WBC Ur Squamous Epith Cells Urine Bacteria Urine Mucus Acetone Level MODERATE H 11/28/18 00:10 WBC RBC Hgb Hct MCV MCH MCHC RDW RDW Differential Plt Count MPV Immature Gran % (Auto) Neut % (Auto) Lymph % (Auto) Martin % (Auto) Eos % (Auto) Baso % (Auto) Absolute Neuts (auto) Absolute Lymphs (auto) Total Counted Sodium Potassium Chloride Carbon Dioxide Anion Gap BUN Creatinine Estim Creat Clear Calc Est GFR (MDRD) Af Amer Est GFR (MDRD) Non-Af BUN/Creatinine Ratio Glucose Calcium Urine Color Yellow Urine Clarity Clear Urine pH 6.0 Ur Specific [place] 1.015 Urine Protein Negative Urine Glucose (UA) 1000 H Urine Ketones 150 H Urine Occult Blood 10 H Urine Nitrite Negative Urine Bilirubin Negative Urine Urobilinogen Normal Ur Leukocyte Esterase Negative Urine RBC 0-5 SEEN Urine WBC 0 SEEN Ur Squamous Epith Cells 0 SEEN Urine Bacteria 0 SEEN Urine Mucus 0 SEEN Acetone Level POC Glucose 11/28/18 11/27/18 11/27/18 00:15 22:33 21:29 POC Glucose 321 H 394 H 423 H Assessment/Plan All Active Problems Type 2 diabetes mellitus (Acute) Leg cramps (Acute) The patient is a 78 year old F with past medical history of type II DM on insulin, complicated by peripheral neuropathy, chronic back pain, on baclofen, resident [place] who was said to be complaining of headache on the morning of the admission. Her blood sugar was found to be 23. Patient was treated with sugary foods which made her blood sugar rise to 450. She had associated nausea and vomiting and was brought to the emergency department. 1. Nausea and vomiting secondary to Hyperglycemia, recent episodes of hypoglycemia, overtreated Patient is on insulin, appears very dehydrated, there is a slight elevation in her BUN with normal creatinine Plan: Admit to MedSurg, IV fluids, continue with insulin administration with Accu-Cheks and insulin sliding scale, check HbA1c 2. Episode of low-grade fever, unclear etiology, UA is unremarkable, chest x-ray unremarkable, blood and urine cultures are pending We will hold off on antibiotics, will continue to monitor, labs in a.m. 3. Chronic back pain with severe spasms, on baclofen, Ativan, continue same 4. Hypothyroidism, on levothyroxine 5. DVT Prophylaxis with heparin subcu Code Visit Inpatient E&M: 39480 Init Hosp L3
[2018-11-28] MEDS: Baclofen 10 MG Tablet PO ×3 (02:08→14:30)
--- NOTE | 2018-11-28 02:42 | ED.RN ---
[facility] called and informed about pt being admitted. i spoke mir vela
[2018-11-28 02:55] LABS: Bedside Glucose 314 mg/dL (70-110)
--- NOTE | 2018-11-28 03:37 | NURSING ---
Dr. Shah wanted another IV started. I attempted once unsuccessfully and the pt is now refusing to allow us to try again. Nedra crabtree RN aware. Pt continually moves her extremities and twists and turns in bed.
[2018-11-28] MEDS: 0.9% Normal Saline 1,000 ML 150 ML IV ×3 (04:09→17:43)
[2018-11-28 06:20] LABS: Bedside Glucose 315 mg/dL (70-110)
[2018-11-28] MEDS: Insulin Lispro 100 UNIT/ML INSULN.PEN 10 UNIT SC (06:55)
[2018-11-28] MEDS: Heparin Injection (Vial) 5,000 UNIT/ML VIAL 5000 UNIT SC ×3 (06:55→22:12)
[2018-11-28] MEDS: Levothyroxine 75 MCG Tablet PO (06:56)
[2018-11-28] MEDS: Insulin Lispro 100 UNIT/ML INSULN.PEN SC ×4 (07:05→22:12)
[2018-11-28 07:10] LABS: Absolute Lymphocyte Count 1.38 X10^3/ul (0.83-4.51); Absolute Neutrophil Count 7.4 X10^3/uL (2.0-7.7); Basophil# 0.01 X10^3/uL; Basophil% 0.1 % (0-1); Hematocrit 33.6 % (37-47); Lymphocyte # 1.38 X10^3/ul (4.0); Lymphocyte % 14.9 % (19-41); Mean Corp Hgb Conc 32.7 g/gl (32-36); Mean Corpuscular Hgb 28.7 pg (27.0-32.0); Mean Corpuscular Volume 87.7 fL (81-99); Mean Platelet Vol. 11.4 fl (6.2-12.0); Monocyte% 5.4 % (0-10); Neutrophil # 7.36 X10^3/uL (2.7-7.7); Neutrophil % 79.4 % (47-70); Platelet Count 146 K/mm3 (150-450); RBC Distribution Width CV 13.8 % (11.6-14.6); RBC Distribution Width SD 43.1 fl (35.1-43.9); Red Blood Count 3.83 M/mm3 (4.2-5.4); White Blood Count 9.3 K/mm3 (4.4-11.0)
[2018-11-28 07:16] LABS: POSITIVE COUNT NO; POSITIVE DIFFERENTIAL NO; POSITIVE MORPHOLOGY NO
[2018-11-28 07:51] LABS: Hemoglobin A1c 8.3 % (4.2-6.3)
[2018-11-28 07:55] LABS: ALB/GLOB Ratio 1.2 RATIO (0.9-2.4); AST(SGOT) 23 U/L (15-37); Alanine Aminotransfer ALT/SGPT 21 U/L (13-56); Albumin, Serum 3.1 g/dL (3.2-5.0); Alkaline Phosphatase 72 U/L (45-117); Anion Gap 12 (5-15); BUN 22 mg/dL (7-18); BUN/Creat Ratio 29.1 RATIO (10-20); Calcium,Total 7.9 mg/dL (8.5-10.1); Chloride 108 mmol/L (98-107); Creatinine, Serum 0.76 mg/dL (0.55-1.02); EST Glomerular Filtration Rate 79 mL/min (>60); Est Glom Filt Rate - Afr Amer 96 mL/min (>60); Estimated Creatinine Clearance 39.59 ml/min; Globulin 2.5 g/dL (2.2-4.2); Glucose 330 mg/dL (74-106); Potassium 4.5 mmol/L (3.5-5.1); Protein, Total 5.6 g/dL (6.4-8.2); Sodium Level 138 mmol/L (136-145)
[2018-11-28 09:11] LABS: Bedside Glucose 183 mg/dL (70-110)
[2018-11-28] MEDS: LORazepam 1 MG Tablet PO (10:16)
[2018-11-28] MEDS: DULoxetine Hcl 60 MG Capsule PO (10:16)
--- NOTE | 2018-11-28 10:29 | CASEMGMT ---
Addendum entered by Mary Camp 11/28/18 11:25: SW faxed clinicals to [facility]. Original Note: Social Work Note Pt is listed as being from [facility]. SW met with pt and pt's daughter present in room. SW introduced self and role at [facility]. Pt is alert and orientated and gave this worker permission to speak to her in front of her daughter. Pt's daughter Nyla answered most of the questions. Nyla confirms that pt is from [facility] [employer] and plan is for pt to return. LILIA explained that [facility] may try and get [employer] through her insurance to get additional PT/OT. Nyla states understanding. LILIA spoke with Nyla at [facility]. 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 PT/OT have been ordered, will fax over once available. Plan: Return to [facility] once medically cleared. Green sheet on chart. Mary Camp EMANATIONS ANALYSIS TECHNICIAN, WEB CONTENT DIRECTOR
[2018-11-28 12:05] LABS: Bedside Glucose 193 mg/dL (70-110)
[2018-11-28] MEDS: Glucerna Shake 120 ML LIQUID PO ×2 (14:30→22:14)
--- NOTE | 2018-11-28 14:35 | CPS ---
patient unable to comprehend
[2018-11-28] MEDS: Baclofen 10 MG Tablet 15 MG PO (22:10)
[2018-11-28 22:41] LABS: Bedside Glucose 206 mg/dL (70-110)
[2018-11-28 23:45] LABS: Bedside Glucose 296 mg/dL (70-110)
[2018-11-29] MEDS: 0.9% Normal Saline 1,000 ML 150 ML IV ×2 (00:20→06:31)
[2018-11-29 04:12] VITALS: O2SAT 94
[2018-11-29 04:18] VITALS: BP 103/68; PULSE 77; RESP 20; TEMP 36.6; O2SAT 94
[2018-11-29] MEDS: Baclofen 10 MG Tablet PO ×2 (06:31→13:26)
[2018-11-29] MEDS: Heparin Injection (Vial) 5,000 UNIT/ML VIAL 5000 UNIT SC (06:31)
[2018-11-29] MEDS: Levothyroxine 75 MCG Tablet PO (06:31)
[2018-11-29] MEDS: Insulin Lispro 100 UNIT/ML INSULN.PEN SC ×2 (06:32→11:51)
[2018-11-29 07:00] LABS: Bedside Glucose 154 mg/dL (70-110)
[2018-11-29] MEDS: LORazepam 1 MG Tablet PO (09:16)
[2018-11-29] MEDS: Glucerna Shake 120 ML LIQUID PO (09:16)
[2018-11-29] MEDS: DULoxetine Hcl 60 MG Capsule PO (09:17)
[2018-11-29 10:18] VITALS: BP 113/54; PULSE 84; RESP 16; TEMP 36.8; O2SAT 98
--- NOTE | 2018-11-29 11:29 | PCM.TXEXTCAR ---
- Diet 11/28/18 02:48 Diet: Calorie Controlled Food consistency:: Regular Liquid Consistency:: Regular/Thin How many daily calories?: 1800 calorie - Routine Orders/Code Status Routine Lab Work: - - resume fingerstick blood sugars and sliding scale insulin as before - Therapies Weight Bearing: Full weight bearing - Allergies/Procedures Done in Hospital Allergies/Adverse Reactions: Allergies No Known Allergies Allergy (Verified 11/28/18 01:11) Procedures: None - Type of Care/Length of Stay Estimated LOS: More Than 30 Days Type of Care Needed: Intermediate Rehab Potential: Good Prognosis: Good - Additional Orders/Day of Discharge H&P will serve as current which was dated: 11/28/18 Day of Discharge: 11/29/18 - Follow Up Care Primary Care Physician: Rg Kwon MD [Primary Care Provider] -
[2018-11-29 12:00] LABS: Bedside Glucose 236 mg/dL (70-110)
--- NOTE | 2018-11-30 15:21 | PCM.DC.SUM ---
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 Labs obtained in the emergency room showed her blood sugar to be 432, his white blood cell count was elevated at 11.2, chest x-ray showed no acute cardiopulmonary pathology. Patient was placed into observation status on MedSurg 3, her blood sugars were monitored, repeat CBC showed a decreased white blood cell count, patient was able to eat and drink without difficulty. On 11/29/2018, patient was seen and examined: On examination she appeared frail but alert. Vital signs as documented. Skin warm and dry and without overt rashes. Neck without JVD. Lungs clear. Heart exam notable for regular rhythm, normal sounds and absence of murmurs, rubs or gallops. Abdomen unremarkable and without evidence of organomegaly, masses, or abdominal aortic enlargement. Extremities nonedematous. Neuro: Cranial nerves II through XII are grossly intact, no focal motor deficits were noted, sensation to light touch and pinprick is intact. Psych: Patient is alert and oriented x3, she does not appear anxious or depressed On 11/29/2018, patient was seen and examined and felt to be in stable condition to return to her long-term care facility. - Physical Exam Vital Signs Temp Pulse Resp BP Pulse Ox 98.3 F 84 16 113/54 L 98 11/29/18 10:18 11/29/18 10:18 11/29/18 10:18 11/29/18 10:18 11/29/18 10:18 Oxygen Delivery Method Room Air Weight: 52.6 kg Body Mass Index (BMI) 20.5 Finger Stick Blood Glucose 321 Intake and Output for Last 24 Hours 11/28/18 11/29/18 11/30/18 23:59 23:59 23:59 Intake Total 3785 / 4875 2059 Output Total 225 / 225 Balance 3785 / 4740 1835 / 1835 Microbiology Past 72 Hours 11/27/18 21:35 Blood Culture - Preliminary Blood Culture (Wb) - Left Forearm No growth in 48 hours. 11/28/18 00:00 Blood Culture - Preliminary Blood Culture (Wb) - Right Hand No growth in 48 hours. 11/28/18 00:10 Urine Culture - Final Urine, Clean Catch Culture exhibits no growth. Home Medications: Medications to take at Discharge Insulin Detemir [Levemir FlexPen] 22 units SC DAILY 04/21/18 Levothyroxine [Synthroid] 75 mcg PO DAILY 04/21/18 Baclofen 10 mg PO BID 11/27/18 Baclofen 15 mg PO QHS 11/27/18 Duloxetine Hcl [Cymbalta] 60 mg PO DAILY 11/27/18 Lorazepam [Ativan] 1 mg PO DAILY #7 tab 11/29/18 Following Prescrptions Were Given to Patient: Lorazepam [Ativan] 1 mg PO DAILY #7 tab Prescription Printed Primary Care Physician: Rg Kwon MD [Primary Care Provider] - Disposition: Asstd Living/Non-Skill [place] Minutes spent on discharge:: 32 Patient Condition:: Stable Medical Necessity - Tobacco Use Smoking Status: Former smoker Tobacco Use: Non-smoker Meaningful Use Info Meaningful Use Diagnoses (Choose all that apply): None applicable Code Visit Inpatient E&M: 10194 Disch Hosp
== END 2018-11-29 14:05 | disposition skilled nursing facility (03) ==
LOC: ED 22:09 → MS3 11-28 01:30
PROVIDERS: Admitting Provider Internal Medicine; Emergency Provider Emergency Medicine; Family Provider Family Medicine; PCP Family Medicine; Referring Provider Internal Medicine; Visit Provider Internal Medicine
DX: R11.2 Nausea with vomiting, unspecified (principal); E03.9 Hypothyroidism, unspecified; G89.29 Other chronic pain; M47.896 Other spondylosis, lumbar region; Z79.4 Long term (current) use of insulin; Z79.899 Other long term (current) drug therapy; E11.65 Type 2 diabetes mellitus with hyperglycemia; E86.0 Dehydration; F41.9 Anxiety disorder, unspecified; F32.9 Major depressive disorder, single episode, unspecified; Z87.891 Personal history of nicotine dependence
CPT/HCPCS: 36415; 71045; 80048; 80053; 81001; 82009; 82962; 83036; 85025; 87040; 87086; 96360; 96361; 96372; 97110; 97163; 97167; 97802; 99218; 99285; J7030; J7050; P9612; A4216; G0378

== ENCOUNTER → 2019-02-18 | Outpatient (CLI) | payer MEDICARE, MEDICAID, SELFPAY ==
[2018-11-28 03:16] VITALS: BMI 20.5
--- NOTE | 2019-02-18 15:53 | MRI_ITS ---
HISTORY:rt ankle contracture rt ankle contracture EXAMINATION: MR Spine Thoracic W/O Contrast TECHNIQUE: IV Contrast dosage and agent: None. COMPARISON: None FINDINGS: The study is limited by motion he vertebral body heights are preserved A conus appears within normal limits and is at the T12-L1 level VERTEBRAE: No fracture. Normal vertebral bodies and posterior elements. There is a suspected hemangioma within the T6 vertebral body VERTEBRAL ALIGNMENT: Normal. Slightly increased thoracic kyphosis No scoliosis. DISCS: There is a tiny annular bulge at the level of T9-10. No canal stenosis. Normal spinal canal and neuroforamina. CORD: Unremarkable in signal and morphology. Normal conus medularis. SOFT TISSUES: Unremarkable. MRI/Spine Thoracic (Routine) IMPRESSION: Minimal annular bulge at the level of T9-10 Slightly increased thoracic kyphosis. Study is limited by patient motion at 1722 Reported and signed by: Josselyn rBaun DO Electronically Signed: Josselyn Braun DO at 17:21 EDT Tel , Service support ,
== END | disposition home or self-care (01) ==
PROVIDERS: Family Provider Family Medicine; PCP Family Medicine; Referring Provider Psychiatry & Neurology Neurology; Visit Provider Psychiatry & Neurology Neurology
DX: M24.571 Contracture, right ankle (principal)
CPT/HCPCS: 72146

== ENCOUNTER 2021-08-18 17:29 | Inpatient (IN) | payer MEDICARE, MEDICAID, SELFPAY ==
[2021-08-18 17:31] VITALS: BP 118/71; PULSE 82; RESP 19; TEMP 36.9; O2SAT 97; BMI 21.4
--- NOTE | 2021-08-18 17:39 | EKG12_ITS ---
Test Reason : N\V Blood Pressure : / mmHG Vent. Rate : 079 BPM Atrial Rate : 079 BPM P-R Int : 148 ms QRS Dur : 068 ms QT Int : 382 ms P-R-T Axes : 059 052 028 degrees QTc Int : 438 ms Normal sinus rhythm ST & T wave abnormality, consider inferior ischemia ST & T wave abnormality, consider anterior ischemia Abnormal ECG Confirmed by HELIO ANDRADE, KERWIN ([id number]), editor magazine ROJAS TRENT ([id number]) on 08/22/2021 11:25:08 AM Referred By: ALVARO Confirmed By:KERWIN CADET MD
--- NOTE | 2021-08-18 17:40 | EDS_ITS ---
HPI History of Present Illness Chief Complaint: Nausea/Vomiting Narrative Narrative: 81-year-old female presents from the [facility] with reported nausea and vomiting all night. She is a known, reportedly brittle diabetic. She had elevated blood sugars earlier, however the last 1 was only in the 160s approximately an hour and 40 minutes ago. She refused IV. She states I am fine. She was sent in because she has been in diabetic ketoacidosis twice reportedly. Patient denies any abdominal pain. No fevers or chills. No other symptoms. PFSH PFS Medical History Anxiety Depression Diabetes Hypothyroidism Home Medications Levemir FlexTouch U-100 Insuln 29 units SUBCUT DAILY 04/21/18 [History Last Taken 04/20/18] levothyroxine 50 mcg PO DAILY 04/21/18 [History Last Taken 04/21/18] baclofen 15 mg PO TID 11/27/18 [History Last Taken Unknown] bisacodyl 10 mg [place] DAILY PRN 08/18/21 [History Last Taken Unknown] calcium carbonate [Tums 500] 500 mg PO Q4H PRN 08/18/21 [History Last Taken Unknown] insulin aspart U-100 [Novolog Flexpen U-100 Insulin] See Protocol SUBCUT ACHS 08/18/21 [History Last Taken Unknown] lisinopril 5 mg PO DAILY 08/18/21 [History Last Taken Unknown] lorazepam [Ativan] 0.25 mg PO DAILY@0800 08/18/21 [History Last Taken Unknown] Allergy/AdvReac Type Severity Reaction Status Date / Time No Known Allergies Allergy Verified 11/28/18 01:11 Family History (Updated 08/18/21 @ 20:[address] Sean Godwin MD) Other Cancer Heart disease Surgical History History of uterine fibroid Social History Smoking Status: Former smoker ROS ROS ED ROS Narrative Constitutional: No fever, no chills. HEENT: No sore throat. No neck pain. No loss of vision. No rhinorrhea. Cardiovascular: No chest pain. No palpitations. No pedal edema. Respiratory: No cough, no shortness of breath. Abdominal: No abdominal pain. Reported nausea. Reported vomiting. Genitourinary: No dysuria. No hematuria. Musculoskeletal: No myalgias. No arthralgias. Neurologic: No headaches. No dizziness. No lightheadedness. Skin: No rash. No change in color. Psychiatric: No depression. No anxiety. Patient denies any symptoms. EXAM Physical Exam Narrative Exam Narrative: Afebrile. Vital signs noted. HEENT: Normocephalic. Atraumatic. PERRL, EOMI. Neck soft and supple. No point tenderness or step off. Tacky to dry mucous membranes. Cardiovascular: Regular rate and rhythm. No murmurs, rubs, or gallops appreciated. Respiratory: No tachypnea. Lungs clear to auscultation bilaterally. Gastrointestinal: Abdomen soft, nontender, with normoactive bowel sounds. No rebound or guarding. Neurological: Awake. Alert. Oriented to person, place, and month. Nonfocal, nonlateralizing. Skin: No rash. Normal color. No pallor. Musculoskeletal: No pedal edema. Chronic contracture/inversion of right foot. Const Vital Signs: 08/18/21 17:31 Temperature 98.4 F Temperature Source Rectal Pulse Rate 82 Respiratory Rate 19 H Blood Pressure 118/71 Blood Pressure Mean 86 Pulse Ox 97 Oxygen Delivery Method Room Air MDM MDM MDM Narrative Medical decision making narrative: DKA work-up was pursued. She was bolused normal saline 1 L intravenously. She required Zofran intravenously for nausea. She has a slightly elevated white count of 12.4 which could be demargination from her vomiting. Her hemoglobin is normal at 14.3. She has a low sodium of 131 with a potassium of 5.3. Chloride normal at 98. CO2 of 18. Glucose is elevated at 321 but she has a normal anion gap of 15. Creatinine is elevated at 1.48. I do feel she is acutely dehydrated. AST low at 10 with an ALT of 13. Urinalysis shows no evidence of infection with WBC 0. Her daughter is at the bedside. We repeated her BMP after IV fluids and her potassium did elevate to 6.1, but this is slightly hemolyzed. Her anion gap went down to 11. While she is 300+ on her glucose, her fingerstick glucose was still elevated at 276. She was administered 8 units of regular insulin. Her daughter was concerned that she is a brittle diabetic, however her glucose did elevate above 300 according to the RN when it was checked afterwards. They will keep a close eye on her blood sugars. With her repeat anion gap of 11 but with moderate ketones, it can be more from dehydration. I discussed the patient with the hospitalist, Dr. Godwin. Patient will be admitted to the PCU in stable condition. We did obtain an EKG which showed normal sinus rhythm, no STEMI. Lab Data Attestation: I reviewed the patient's lab results. Labs: Laboratory Results - last 24 hr 08/18/21 08/18/21 08/18/21 17:53 17:53 17:53 WBC 12.4 H RBC 4.91 Hgb 14.3 Hct 42.4 MCV 86.4 MCH 29.1 MCHC 33.7 RDW Std Deviation 43.5 RDW Coeff of Juan 13.7 Plt Count 229 MPV 10.9 Immature Gran % (Auto) 0.800 Neut % (Auto) 74.2 H Lymph % (Auto) 20.6 [place] % (Auto) 4.1 Eos % (Auto) 0.0 Baso % (Auto) 0.3 Absolute Neuts (auto) 9.2 H Absolute Lymphs (auto) 2.55 Nucleated RBC % 0 Sodium 131 L Potassium 5.3 H Chloride 98 Carbon Dioxide 18.0 L Anion Gap 15 BUN 30 H Creatinine 1.48 H Estim Creat Clear Calc 24.38 Est GFR (MDRD) Af Amer 44 L Est GFR (MDRD) Non-Af 36 L BUN/Creatinine Ratio 20.3 H Glucose 321 H Calcium 10.5 H Total Bilirubin 0.90 AST 10 L ALT 13 Alkaline Phosphatase 105 Total Protein 7.7 Albumin 4.0 Globulin 3.7 Albumin/Globulin Ratio 1.1 Urine Color Urine Clarity Urine pH Ur Specific [place] Urine Protein Urine Glucose (UA) Urine Ketones Urine Occult Blood Urine Nitrite Urine Bilirubin Urine Urobilinogen Ur Leukocyte Esterase Urine RBC Urine WBC Ur Squamous Epith Cells Urine Bacteria Hyaline Casts Urine Mucus Acetone Level MODERATE H POC Glucose 08/18/21 08/18/21 08/18/21 18:09 18:20 19:32 WBC RBC Hgb Hct MCV MCH MCHC RDW Std Deviation RDW Coeff of Juan Plt Count MPV Immature Gran % (Auto) Neut % (Auto) Lymph % (Auto) [place] % (Auto) Eos % (Auto) Baso % (Auto) Absolute Neuts (auto) Absolute Lymphs (auto) Nucleated RBC % Sodium 133 L Potassium 6.1 H* Chloride 103 Carbon Dioxide 19.0 L Anion Gap 11 BUN 29 H Creatinine 1.27 H Estim Creat Clear Calc 28.41 Est GFR (MDRD) Af Amer 52 L Est GFR (MDRD) Non-Af 43 L BUN/Creatinine Ratio 22.8 H Glucose 314 H Calcium 9.3 Total Bilirubin AST ALT Alkaline Phosphatase Total Protein Albumin Globulin Albumin/Globulin Ratio Urine Color Yellow Urine Clarity Clear Urine pH 5.0 Ur Specific [place] 1.025 Urine Protein 30 H Urine Glucose (UA) 1000 H Urine Ketones 150 A* Urine Occult Blood Negative Urine Nitrite Negative Urine Bilirubin Negative Urine Urobilinogen Normal Ur Leukocyte Esterase Negative Urine RBC 0 SEEN Urine WBC 0 SEEN Ur Squamous Epith Cells 0 SEEN Urine Bacteria 0 SEEN Hyaline Casts 5-10 SEEN Urine Mucus 0 SEEN Acetone Level POC Glucose 309 H ABG Data ABG results: ABG 08/18/21 18:04 Specimen Type CATHY VBG pH 7.26 L VBG pO2 22 L VBG HCO3 19 L VBG Total CO2 20 L VBG O2 Sat (Calc) 30 L VBG Base Excess -8 L POC Mix VBG pCO2 Pt Tmp 42.1 Discharge Plan Dx/Rx/DC Orders Clinical Impression: Nausea & vomiting, Hyperglycemia, Hyperkalemia, Dehydration, Acute alteration in mental status, Type 2 diabetes mellitus Disposition Disposition: [facility] Discharge Date/Time: 08/18/21 21:14
--- NOTE | 2021-08-18 17:42 | NURSING ---
NO OLD EKGS
[2021-08-18] MEDS: 0.9% Normal Saline 1,000 ML 999 ML IV (18:07)
[2021-08-18 18:09] LABS: Absolute Lymphocyte Count 2.55 X10^3/uL (0.83-4.51); Absolute Neutrophil Count 9.2 X10^3/uL (2.0-7.7); Basophil# 0.04 X10^3/uL; Basophil% 0.3 % (0-1); Hematocrit 42.4 % (37-47); Hemoglobin 14.3 g/dL (12.0-15.0); Lymphocyte # 2.55 X10^3/ul (0.83-4.51); Lymphocyte % 20.6 % (19-41); Mean Corp Hgb Conc 33.7 g/dL (32-36); Mean Corpuscular Hgb 29.1 pg (27.0-32.0); Mean Corpuscular Volume 86.4 fL (81-99); Mean Platelet Vol. 10.9 fl (6.2-12.0); Monocyte# 0.51 X10^3/uL; Monocyte% 4.1 % (0-10); NRBC Flagged by Analyzer 0 % (0-5); Neutrophil % 74.2 % (47-70); Platelet Count 229 K/mm3 (150-450); RBC Distribution Width CV 13.7 % (11.6-14.6); RBC Distribution Width SD 43.5 fl (35.1-43.9); Red Blood Count 4.91 M/mm3 (4.2-5.4); White Blood Count 12.4 K/mm3 (4.4-11.0)
[2021-08-18 18:10] LABS: Blood Gas Specimen Type VEN; VBG BASE EXCESS -8 mmol/L (-1.0-3.5); VBG Bicarbonate 19 mmol/L (22-26); VBG PO2 22 mmHg (25-40); VBG SO2 30 % (50-70); VBG TCO2 20 mmol/L (23-33); VBG pCO2 42.1 mmHg (41-51); VBG pH 7.26 (7.32-7.42)
[2021-08-18 18:26] LABS: ALB/GLOB Ratio 1.1 RATIO (0.9-2.4); AST(SGOT) 10 U/L (15-37); Alanine Aminotransfer ALT/SGPT 13 U/L (13-56); Alkaline Phosphatase 105 U/L (45-117); BUN 30 mg/dL (7-18); BUN/Creat Ratio 20.3 RATIO (10-20); Calcium,Total 10.5 mg/dL (8.5-10.1); Chloride 98 mmol/L (98-107); Creatinine, Serum 1.48 mg/dL (0.55-1.02); EST Glomerular Filtration Rate 36 mL/min (>60); Est Glom Filt Rate - Afr Amer 44 mL/min (>60); Estimated Creatinine Clearance 24.38 ml/min; Globulin 3.7 g/dL (2.2-4.2); Glucose 321 mg/dL (74-106); Potassium 5.3 mmol/L (3.5-5.1); Protein, Total 7.7 g/dL (6.4-8.2); Sodium Level 131 mmol/L (136-145)
[2021-08-18 18:27] LABS: Anion Gap 15 (5-15)
[2021-08-18 18:34] LABS: Bacteria 0 SEEN /hpf (None Seen); Mucous, Urine 0 SEEN /hpf (<or=2+); Red Blood Cells-Urine 0 SEEN /hpf (0-5); Squamous Epithelial Cells - UA 0 SEEN /hpf (5-10); White Blood Cells 0 SEEN /hpf (0-5)
[2021-08-18 18:36] LABS: Bedside Glucose 309 mg/dL (74-106)
[2021-08-18 18:39] LABS: Color, Urine Yellow (Yellow); Glucose, Dipstick 1000 mg/dl (Normal); Leukocyte Esterase-Dipstick Negative /ul (Negative); Nitrite-Dipstick Negative (Negative); Occult Blood-Urine Negative /ul (Negative); Protein-Dipstick 30 mg/dl (Negative); Specific Gravity, Urine 1.025 (1.002-1.030); Urine Bilirubin Dipstick Negative (Negative); Urine Clarity Clear (Clear); Urine Urobilinogen Normal (Normal)
[2021-08-18 18:42] LABS: Ketone-Dipstick 150 mg/dl (Negative)
[2021-08-18 18:46] LABS: Hyaline Cast 5-10 SEEN /lpf (0-5)
[2021-08-18] MEDS: 0.9% Normal Saline 1,000 ML 500 ML IV (19:38)
--- NOTE | 2021-08-18 19:54 | HP.PCM.HOS_ITS ---
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 Associated for symptom is decreased level of consciousness and confusion. Patient is unable to keep any food down. She denies polyuria or polydipsia. Patient's daughter was at the bedside and history was taken from both patient a nd her daughter. [facility] Medical History (Updated 08/18/21 @ 20:[address] Sean Godwin MD) Anxiety Depression Diabetes Hypothyroidism Home Medications Levemir FlexTouch U-100 Insuln 29 units SUBCUT DAILY 04/21/18 [History Last Taken 04/20/18] levothyroxine 50 mcg PO DAILY 04/21/18 [History Last Taken 04/21/18] baclofen 15 mg PO TID 11/27/18 [History Last Taken Unknown] bisacodyl 10 mg [place] DAILY PRN 08/18/21 [History Last Taken Unknown] calcium carbonate [Tums 500] 500 mg PO Q4H PRN 08/18/21 [History Last Taken Unknown] insulin aspart U-100 [Novolog Flexpen U-100 Insulin] See Protocol SUBCUT ACHS 08/18/21 [History Last Taken Unknown] lisinopril 5 mg PO DAILY 08/18/21 [History Last Taken Unknown] lorazepam [Ativan] 0.25 mg PO DAILY@0800 08/18/21 [History Last Taken Unknown] Allergy/AdvReac Type Severity Reaction Status Date / Time No Known Allergies Allergy Verified 11/28/18 01:11 Family History (Updated 08/18/21 @ 20:[address] Sean Godwin MD) Other Cancer Heart disease Surgical History (Updated 08/18/21 @ 20:[address] Sean Godwin MD) History of uterine fibroid Social History Smoking Status: Former smoker ROS ROS Narrative Pertinent positives and pertinent negatives as noted in HPI. All other systems were reviewed and are negative. . Vital Signs Vital Signs Vital Signs: 08/18/21 17:31 Temperature 98.4 F Temperature Source Rectal Pulse Rate 82 Respiratory Rate 19 H Blood Pressure 118/71 Blood Pressure Mean 86 Pulse Ox 97 Oxygen Delivery Method Room Air Weight Weight: 54.9 kg Body Mass Index (BMI) 21.4 Physical Exam Narrative Physical exam: General: Well-nourished, well-developed. Head: Normocephalic, atraumatic, no tenderness Eyes: Vision is grossly intact. EOMI ENT, no trauma, dry mucous membranes, no rhinorrhea Neck: Nontender, full range of motion, no spinal tenderness, deformities, step- off CVS: Regular rate and rhythm. S1-S2 present. No murmur, gallop or rub. Respiratory : clear to auscultation bilaterally, chest wall nontender, no wheezing Abdomen: Soft, nontender, nondistended, normal bowel sounds, no masses : Deferred Back: Nontender, no CVA tenderness, no midline spinal tenderness, deformities, step-offs Extremities: Nontender full range of motion, no trauma Skin: Normal color, no trauma, abrasions Neuro: Alert. Patient knows that she is at [facility]. She knows the month. She knows the day of the month. She stated that the year is 2020 instead of 2021. Cranial nerves II through XII grossly intact. Psychiatry: Writhing movements of the neck. Less talkative. Results Lab / Micro Data Result Diagrams: 08/18/21 17:53 08/18/21 19:32 Labs: Laboratory Results - last 24 hr 08/18/21 17:53: WBC 12.4 H, RBC 4.91, Hgb 14.3, Hct 42.4, MCV 86.4, MCH 29.1, MCHC 33.7, RDW Std Deviation 43.5, RDW Coeff of Juan 13.7, Plt Count 229, MPV 10.9, Immature Gran % (Auto) 0.800, Neut % (Auto) 74.2 H, Lymph % (Auto) 20.6, [place] % (Auto) 4.1, Eos % (Auto) 0.0, Baso % (Auto) 0.3, Absolute Neuts (auto) 9.2 H, Absolute Lymphs (auto) 2.55, Nucleated RBC % 0 08/18/21 17:53: Sodium 131 L, Potassium 5.3 H, Chloride 98, Carbon Dioxide 18.0 L, Anion Gap 15, BUN 30 H, Creatinine 1.48 H, Estim Creat Clear Calc 24.38, Est GFR (MDRD) Af Amer 44 L, Est GFR (MDRD) Non-Af 36 L, BUN/Creatinine Ratio 20.3 H , Glucose 321 H, Calcium 10.5 H, Total Bilirubin 0.90, AST 10 L, ALT 13, Alkaline Phosphatase 105, Total Protein 7.7, Albumin 4.0, Globulin 3.7, Al bumin/Globulin Ratio 1.1 08/18/21 17:53: Acetone Level MODERATE H 08/18/21 18:09: POC Glucose 309 H 08/18/21 18:20: Urine Color Yellow, Urine Clarity Clear, Urine pH 5.0, Ur Specific [place] 1.025, Urine Protein 30 H, Urine Glucose (UA) 1000 H, Urine Ketones 150 A*, Urine Occult Blood Negative, Urine Nitrite Negative, Urine Bilirubin Negative, Urine Urobilinogen Normal, Ur Leukocyte Esterase Negative, Urine RBC 0 SEEN, Urine WBC 0 SEEN, Ur Squamous Epith Cells 0 SEEN, Urine Bacteria 0 SEEN, Hyaline Casts 5-10 SEEN, Urine Mucus 0 SEEN ABG Data ABG results: ABG 08/18/21 18:04 Specimen Type CATHY VBG pH 7.26 L VBG pO2 22 L VBG HCO3 19 L VBG Total CO2 20 L VBG O2 Sat (Calc) 30 L VBG Base Excess -8 L POC Mix VBG pCO2 Pt Tmp 42.1 Assessment & Plan Assessment/Plan (1) Hyperglycemia due to diabetes mellitus: (2) SHEKHAR (acute kidney injury): PLAN: Acute hyperglycemia due to diabetes mellitus Initial ED labs showed that patient was in mild DKA. With IV fluids had anion gap decreased from 15-11. Review of ED labs showed that patient had a positive urine ketones on presentation. Urine glucose was 1000. Urine leukocyte esterase was negative and there was no urine nitrites. Urine bacteria was 0. Initial glucose on BMP was 321 and sodium was 131. Initial potassium was 5.3 and repeat was 6.1 with some slight hemolysis. EKG was not characteristic for hyperkalemia. EKG tracing was independently interpreted. EKG with T wave inversions in V1 to V3, III and aVF. CBC showed a white count of 12.4 with neutrophilia of 74.2%. Trend CBC. Received normal saline bolus at emergency department. Normal saline at 250 mL's per hour will be continued and demonstrated to have normal saline 150 mL's per hour. Accu-Chek every 4 hours of correction scale insulin ordered. N.p.o. for now as patient has nausea and vomiting. 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 Her creatinine on presentation was 1.48. Repeat after IV fluids was 1.27. Her last creatinine in hospital system was on 11/28/2018. At that time her creatinine was 0.76. Review of electronic community records did not show any previous creatinine. IV fluids ordered. Avoid nephrotoxins. Trend BMP. DVT prophylaxis: Subcutaneous Lovenox ordered Charges/Coding Visit Charges Inpatient E&M: 00035 Init Hosp L3
[2021-08-18] MEDS: Ondansetron 4 MG/2 ML Vial IV (19:56)
[2021-08-18 20:15] LABS: Anion Gap 11 (5-15); BUN 29 mg/dL (7-18); BUN/Creat Ratio 22.8 RATIO (10-20); Calcium,Total 9.3 mg/dL (8.5-10.1); Chloride 103 mmol/L (98-107); Creatinine, Serum 1.27 mg/dL (0.55-1.02); EST Glomerular Filtration Rate 43 mL/min (>60); Est Glom Filt Rate - Afr Amer 52 mL/min (>60); Estimated Creatinine Clearance 28.41 ml/min; Glucose 314 mg/dL (74-106); Potassium 6.1 mmol/L (3.5-5.1); Sodium Level 133 mmol/L (136-145)
[2021-08-18 20:16] LABS: Bedside Glucose 276 mg/dL (74-106)
[2021-08-18 20:18] VITALS: BP 108/55; PULSE 77; RESP 17; O2SAT 98
[2021-08-18] MEDS: Insulin Lispro 100 UNIT/ML INSULN.PEN 8 UNIT SC (20:35)
[2021-08-18 20:57] VITALS: BP 106/62; PULSE 74; RESP 16; TEMP 36.6; O2SAT 98
[2021-08-18 21:17] LABS: Bedside Glucose 300 mg/dL (74-106)
[2021-08-18 21:25] VITALS: BP 109/65; PULSE 93; RESP 16; TEMP 36.2; O2SAT 97
[2021-08-18 21:27] VITALS: BMI 22.2
[2021-08-18 21:30] VITALS: PULSE 78
[2021-08-18] MEDS: Insulin Lispro 100 UNIT/ML INSULN.PEN SC (21:52)
[2021-08-18 22:34] LABS: Anion Gap 9 (5-15); BUN 26 mg/dL (7-18); BUN/Creat Ratio 23.9 RATIO (10-20); Calcium,Total 8.5 mg/dL (8.5-10.1); Chloride 108 mmol/L (98-107); Creatinine, Serum 1.09 mg/dL (0.55-1.02); EST Glomerular Filtration Rate 51 mL/min (>60); Est Glom Filt Rate - Afr Amer 62 mL/min (>60); Estimated Creatinine Clearance 31.58 ml/min; Glucose 288 mg/dL (74-106); Sodium Level 134 mmol/L (136-145)
[2021-08-18 22:41] LABS: Hemoglobin A1c 9.4 % (3.8-5.6)
[2021-08-18 22:46] LABS: Bedside Glucose 283 mg/dL (74-106)
[2021-08-18] MEDS: 0.9% Normal Saline 1,000 ML 250 ML IV (23:16)
[2021-08-19] VITALS (7 sets, daily range): BP systolic 80–104; BP diastolic 43–68; PULSE 74–88; RESP 16–18; TEMP 36.4–37.2; O2SAT 96–100
[2021-08-19 00:46] LABS: Bedside Glucose 264 mg/dL (74-106)
[2021-08-19 01:48] LABS: BUN 24 mg/dL (7-18); BUN/Creat Ratio 23.5 RATIO (10-20); Calcium,Total 8.5 mg/dL (8.5-10.1); Chloride 110 mmol/L (98-107); Creatinine, Serum 1.02 mg/dL (0.55-1.02); EST Glomerular Filtration Rate 56 mL/min (>60); Est Glom Filt Rate - Afr Amer 67 mL/min (>60); Estimated Creatinine Clearance 33.75 ml/min; Glucose 261 mg/dL (74-106); Potassium 4.7 mmol/L (3.5-5.1); Sodium Level 136 mmol/L (136-145)
[2021-08-19 01:49] LABS: Anion Gap 7 (5-15)
[2021-08-19] MEDS: Insulin Lispro 100 UNIT/ML INSULN.PEN SC ×2 (01:57→05:58)
[2021-08-19] MEDS: 0.45% Normal Saline 1,000 ML 150 ML IV ×2 (02:04→08:36)
[2021-08-19 02:06] LABS: Bedside Glucose 246 mg/dL (74-106)
[2021-08-19] MEDS: Ondansetron 4 MG/2 ML Vial IV (02:21)
[2021-08-19 06:15] LABS: Bedside Glucose 187 mg/dL (74-106)
[2021-08-19 06:31] LABS: Absolute Lymphocyte Count 2.66 X10^3/uL (0.83-4.51); Absolute Neutrophil Count 6.8 X10^3/uL (2.0-7.7); Basophil# 0.04 X10^3/uL; Basophil% 0.4 % (0-1); Eosinophil# 0.04 X10^3/uL; Eosinophils% 0.4 % (0-5); Hematocrit 33.6 % (37-47); Hemoglobin 11.3 g/dL (12.0-15.0); Lymphocyte # 2.66 X10^3/ul (0.83-4.51); Lymphocyte % 25.9 % (19-41); Mean Corp Hgb Conc 33.6 g/dL (32-36); Mean Corpuscular Hgb 28.9 pg (27.0-32.0); Mean Corpuscular Volume 85.9 fL (81-99); Mean Platelet Vol. 11.1 fl (6.2-12.0); Monocyte# 0.71 X10^3/uL; Monocyte% 6.9 % (0-10); NRBC Flagged by Analyzer 0 % (0-5); Neutrophil # 6.79 X10^3/uL (2.7-7.7); Platelet Count 160 K/mm3 (150-450); RBC Distribution Width CV 14.1 % (11.6-14.6); RBC Distribution Width SD 44.3 fl (35.1-43.9); Red Blood Count 3.91 M/mm3 (4.2-5.4); White Blood Count 10.3 K/mm3 (4.4-11.0)
[2021-08-19 06:50] LABS: Anion Gap 6 (5-15); BUN 22 mg/dL (7-18); BUN/Creat Ratio 23.4 RATIO (10-20); Calcium,Total 8.2 mg/dL (8.5-10.1); Chloride 110 mmol/L (98-107); Creatinine, Serum 0.94 mg/dL (0.55-1.02); EST Glomerular Filtration Rate 61 mL/min (>60); Est Glom Filt Rate - Afr Amer 74 mL/min (>60); Estimated Creatinine Clearance 36.62 ml/min; Glucose 186 mg/dL (74-106); Potassium 4.2 mmol/L (3.5-5.1); Sodium Level 137 mmol/L (136-145)
[2021-08-19] MEDS: Enoxaparin 30 MG/0.3 ML Syringe SC (10:17)
[2021-08-19 10:23] LABS: Anion Gap 7 (5-15); BUN 18 mg/dL (7-18); BUN/Creat Ratio 23.2 RATIO (10-20); Calcium,Total 8.1 mg/dL (8.5-10.1); Chloride 110 mmol/L (98-107); Creatinine, Serum 0.78 mg/dL (0.55-1.02); EST Glomerular Filtration Rate 76 mL/min (>60); Est Glom Filt Rate - Afr Amer 92 mL/min (>60); Estimated Creatinine Clearance 34.42 ml/min; Glucose 103 mg/dL (74-106); Potassium 3.7 mmol/L (3.5-5.1); Sodium Level 138 mmol/L (136-145)
[2021-08-19 10:26] LABS: Bedside Glucose 109 mg/dL (74-106)
--- NOTE | 2021-08-19 12:41 | CM.ED ---
LILIA Note LILIA called Guerda at the [facility] and indicated that patient can return to SNF today but this curriculum writer wanted to ensure that it was ok from patient's insurance standpoint. Guerda, the hospital receptionist, called the RN 2x and no answer so LILIA left message with Guerda for RN. LILIA called Nyla, Admission Director at [facility] and left message inquiring if patient could return today. Marta LARSON
[2021-08-19 13:51] LABS: Anion Gap 6 (5-15); BUN 17 mg/dL (7-18); Calcium,Total 8.3 mg/dL (8.5-10.1); Chloride 108 mmol/L (98-107); Creatinine, Serum 0.71 mg/dL (0.55-1.02); EST Glomerular Filtration Rate 84 mL/min (>60); Est Glom Filt Rate - Afr Amer 102 mL/min (>60); Estimated Creatinine Clearance 34.42 ml/min; Glucose 86 mg/dL (74-106); Potassium 3.6 mmol/L (3.5-5.1); Sodium Level 137 mmol/L (136-145)
--- NOTE | 2021-08-19 13:51 | PN.HOSP_ITS ---
Subjective Subjective Follow-up on Acute DKA/debility: Patient was seen and examined. She feels improved. No acute events overnight. Denies any fever or chills. Objective Data Objective Data Vital Signs: Vital Signs Temp Pulse Resp BP Pulse Ox 98.7 F 74 16 91/49 L 97 08/19/21 08:31 08/19/21 08:31 08/19/21 08:31 08/19/21 08:31 08/19/21 08:31 Oxygen Delivery Method Room Air Weight: 53.5 kg Body Mass Index (BMI) 22.2 Intake & Output: Intake and Output for Last 24 Hours 08/17/21 08/18/21 08/19/21 23:59 23:59 23:59 Intake Total 1999 1920 / 192 Output Total 700 / 700 Balance 1999 1220 / 1220 Lab / Micro Data Result Diagrams: 08/19/21 06:02 08/19/21 10:00 Labs: Laboratory Results - last 24 hr 08/18/21 17:53: WBC 12.4 H, RBC 4.91, Hgb 14.3, Hct 42.4, MCV 86.4, MCH 29.1, MCHC 33.7, RDW Std Deviation 43.5, RDW Coeff of Juan 13.7, Plt Count 229, MPV 10.9, Immature Gran % (Auto) 0.800, Neut % (Auto) 74.2 H, Lymph % (Auto) 20.6, [place] % (Auto) 4.1, Eos % (Auto) 0.0, Baso % (Auto) 0.3, Absolute Neuts (auto) 9.2 H, Absolute Lymphs (auto) 2.55, Nucleated RBC % 0 08/18/21 17:53: Sodium 131 L, Potassium 5.3 H, Chloride 98, Carbon Dioxide 18.0 L, Anion Gap 15, BUN 30 H, Creatinine 1.48 H, Estim Creat Clear Calc 24.38, Est GFR (MDRD) Af Amer 44 L, Est GFR (MDRD) Non-Af 36 L, BUN/Creatinine Ratio 20.3 H , Glucose 321 H, Calcium 10.5 H, Total Bilirubin 0.90, AST 10 L, ALT 13, Alkaline Phosphatase 105, Total Protein 7.7, Albumin 4.0, Globulin 3.7, Albumin/Globulin Ratio 1.1 08/18/21 17:53: Acetone Level MODERATE H 08/18/21 18:09: POC Glucose 309 H 08/18/21 18:20: Urine Color Yellow, Urine Clarity Clear, Urine pH 5.0, Ur Specific [place] 1.025, Urine Protein 30 H, Urine Glucose (UA) 1000 H, Urine Ketones 150 A*, Urine Occult Blood Negative, Urine Nitrite Negative, Urine Bilirubin Negative, Urine Urobilinogen Normal, Ur Leukocyte Esterase Negative, Urine RBC 0 SEEN, Urine WBC 0 SEEN, Ur Squamous Epith Cells 0 SEEN, Urine Bacteria 0 SEEN, Hyaline Casts 5-10 SEEN, Urine Mucus 0 SEEN 08/18/21 19:32: Sodium 133 L, Potassium 6.1 H*, Chloride 103, Carbon Dioxide 19.0 L, Anion Gap 11, BUN 29 H, Creatinine 1.27 H, Estim Creat Clear Calc 28.41, Est GFR (MDRD) Af Amer 52 L, Est GFR (MDRD) Non-Af 43 L, BUN/Creatinine Ratio 22.8 H, Glucose 314 H, Calcium 9.3 08/18/21 20:12: POC Glucose 276 H 08/18/21 21:03: POC Glucose 300 H 08/18/21 21:47: POC Glucose 283 H 08/18/21 22:10: Hemoglobin A1c 9.4 H 08/18/21 22:10: Sodium 134 L, Potassium 5.0, Chloride 108 H, Carbon Dioxide 17.0 L, Anion Gap 9, BUN 26 H, Creatinine 1.09 H, Estim Creat Clear Calc 31.58, Est GFR (MDRD) Af Amer 62, Est GFR (MDRD) Non-Af 51 L, BUN/Creatinine Ratio 23.9 H, Glucose 288 H, Calcium 8.5 08/19/21 00:43: POC Glucose 264 H 08/19/21 01:27: Sodium 136, Potassium 4.7, Chloride 110 H, Carbon Dioxide 19.0 L , Anion Gap 7, BUN 24 H, Creatinine 1.02, Estim Creat Clear Calc 33.75, Est GFR (MDRD) Af Amer 67, Est GFR (MDRD) Non-Af 56 L, BUN/Creatinine Ratio 23.5 H, Glucose 261 H, Calcium 8.5 08/19/21 01:55: POC Glucose 246 H 08/19/21 05:55: POC Glucose 187 H 08/19/21 06:02: Sodium 137, Potassium 4.2, Chloride 110 H, Carbon Dioxide 21.0, Anion Gap 6, BUN 22 H, Creatinine 0.94, Estim Creat Clear Calc 36.62, Est GFR (MDRD) Af Amer 74, Est GFR (MDRD) Non-Af 61, BUN/Creatinine Ratio 23.4 H, G lucose 186 H, Calcium 8.2 L 08/19/21 06:02: WBC 10.3, RBC 3.91 L, Hgb 11.3 L, Hct 33.6 L, MCV 85.9, MCH 28.9, MCHC 33.6, RDW Std Deviation 44.3 H, RDW Coeff of Juan 14.1, Plt Count 160, MPV 11.1, Immature Gran % (Auto) 0.400, Neut % (Auto) 66.0, Lymph % (Auto) 25.9, [place] % (Auto) 6.9, Eos % (Auto) 0.4, Baso % (Auto) 0.4, Absolute Neuts (auto) 6.8, Absolute Lymphs (auto) 2.66, Nucleated RBC % 0 08/19/21 10:00: Sodium 138, Potassium 3.7, Chloride 110 H, Carbon Dioxide 21.0, Anion Gap 7, BUN 18, Creatinine 0.78, Estim Creat Clear Calc 34.42, Est GFR (MDRD) Af Amer 92, Est GFR (MDRD) Non-Af 76, BUN/Creatinine Ratio 23.2 H, Glucose 103, Calcium 8.1 L 08/19/21 10:13: POC Glucose 109 H ABG Data ABG results: ABG 08/18/21 18:04 Specimen Type CATHY VBG pH 7.26 L VBG pO2 22 L VBG HCO3 19 L VBG Total CO2 20 L VBG O2 Sat (Calc) 30 L VBG Base Excess -8 L POC Mix VBG pCO2 Pt Tmp 42.1 Physical Exam Narrative Physical exam: General: Alert, Oriented x3, Cooperative, No apparent distress, Well developed HEENT: Atraumatic Oral: Moist Mucosa Neck: Supple Lungs: Clear to auscultation Cardiovascular: HS I+II, regular, no murmurs Abdomen: Bowel Sounds Present, Soft, Non Tender Extremities: No edema Assessment & Plan Assessment/Plan (1) Hyperglycemia due to diabetes mellitus: (2) SHEKHAR (acute kidney injury): PLAN: 1.Type II DM, uncontrolled blood sugars, HbA1c is 9.4 Patient presented in acute DKA in the ED; resolved on admission Resumed back on her home Lantus Continue with ISS with blood glucose checks 2. SHEKHAR on CKD stage IIIa, resolved Admitted creatinine was 1.48, creatinine is 0.71 Continue to trend, repeat labs in am 3. Hypertension, resume back on lisinopril 4. Hypothyroidism, continue on Synthroid 5. Debility, chronic, PT and OT/social work to evaluate for discharge planning 6. DVT prophylaxis - Lovenox SC Charges/Coding Visit Charges Inpatient E&M: 28425 Subs Hosp L2
--- NOTE | 2021-08-19 14:12 | NURSING ---
Per Marta RODRIGUES, pt can return to [facility] today, she is filling out a green sheet and will place on chart. This RN notified Dr Sanchez.
--- NOTE | 2021-08-19 14:16 | TREXTCAR_ITS ---
Diet 08/19/21 13:02 Diet: Consistent Carb - Calorie Controlled Is pt able to select menu?: Yes How many daily calories?: 1600 calorie Routine Orders/Code Status Routine Lab Work: CBC (within 3 azael) and BMP (within 3 days) Code Status: Full Code Therapies Weight Bearing: Weight bearing as tolerated Problem/Diagnosis (1) Hyperglycemia due to diabetes mellitus: Status: Acute (2) SHEKHAR (acute kidney injury): Status: Acute Allergies/Procedures Done in Hospital Allergies No Known Allergies Allergy (Verified 11/28/18 01:11) Type of Care/Length of Stay Estimated LOS: Convalescent Care Less Than 30 days Type of Care Needed: Skilled Rehab Potential: Good Prognosis: Good Additional Orders/Day of Discharge Day of Discharge: 08/19/21 Dietary and Speech Recommendations Dietitian Recommendations/Changes: will adjust diet to 1600 calorie controlled, consistent CHO diet. Discharge Plan Admission Admit Date/Time: 08/18/21 20:09 Primary Reason for Your Visit: Acute DKA/hyperglycemia Attending Provider: Elise Sanchez Primary Care Provider: Rg Kwon Discharge Orders/Prescriptions Prescriptions: Continued levothyroxine 75 MCG tablet 50 mcg PO DAILY RF: 0 Levemir FlexTouch U-100 Insuln 100 UNITS/ML insulin pen 29 units subcut DAILY RF: 0 baclofen 10 MG tablet 15 mg PO TID RF: 0 lorazepam [Ativan] 0.5 mg Tablet 0.25 mg PO DAILY@0800 RF: 0 lisinopril 5 mg Tablet 5 mg PO DAILY RF: 0 insulin aspart U-100 [Novolog Flexpen U-100 Insulin] 100 unit/mL (3 mL) Insulin Pen See Protocol sliding scale dose SUBCUT ACHS RF: 0 bisacodyl 10 mg Suppository 10 mg MA DAILY PRN (Reason: Constipation) RF: 0 calcium carbonate 500 mg calcium (1,250 mg) Tablet,Chewable 500 mg PO Q4H PRN (Reason: Indigestion) RF: 0 Referrals / Follow Up: Rg Kwon MD [Primary Care Provider] - In 1 Week Disposition Disposition (needs filled in before D/C Order can be placed): Detention Facility
--- NOTE | 2021-08-19 14:17 | CM.ED ---
LILIA Note Referral Source: RN CM Referral Reason: Discharge Planning [facility] called [facility] and spoke to [place]. Inida stated that she will contact her manager strategic alliances, via text, and inquire as to what to do in regards to if patient can return today. SW met with patient and her daughter, Nyla. Nyla expressed frustration as to her mother, patient, not receiving good care and food. SW provided supportive listening. Family has called the Ombudsman and patient has met with the ombudsman. Nyla did say that there was some good staff there. LILIA discussed that patient is being discharged today and Nyla verbalized understanding. Nyla said that she wants patient to go to another facility but doesn't want it to be a worse facility. Sw provided Nyla with list of SNF in [facility]. Nyla said that she will call the Facility[facility], and ensure that patient's room is clean. LILIA explained that this engineering writer will have staff call her so she knows what time patient will be discharged. Nyla and patient appeared comfortable with plan. LILIA received voice mail from Nyla from the [place]. LILIA was advised that patient can return. LILIA spoke to Samira, gemologist, and she said that she will update MD for discharge. LILIA asked Zulay, Knockout Worker, to arrange for transportation for patient. LILIA also updated Zulay and Samira that facility needs to be called and family needs to be updated as the time of patient's discharge. Plan: Return to [facility] Marta LARSON
--- NOTE | 2021-08-19 14:19 | DS.PCM_ITS ---
Providers Date of Admission: 08/18/21 Date of Discharge: 08/19/21 Primary Care Physician: Dr. Rg Kwon MD Reason For Visit: DKA Diagnosis Discharge Diagnosis (1) Hyperglycemia due to diabetes mellitus: Status: Acute Code(s): E11.65 - Type 2 diabetes mellitus with hyperglycemia (2) SHEKHAR (acute kidney injury): Status: Acute Code(s): N17.9 - Acute kidney failure, unspecified Medications at Discharge Home Medications Levemir FlexTouch U-100 Insuln 29 units SUBCUT DAILY 04/21/18 levothyroxine 50 mcg PO DAILY 04/21/18 baclofen 15 mg PO TID 11/27/18 bisacodyl 10 mg OR DAILY PRN 08/18/21 calcium carbonate 500 mg PO Q4H PRN 08/18/21 insulin aspart U-100 [Novolog Flexpen U-100 Insulin] See Protocol SUBCUT ACHS 08/18/21 lisinopril 5 mg PO DAILY 08/18/21 lorazepam [Ativan] 0.25 mg PO DAILY@0800 08/18/21 Hospital Course Operations None Procedures None Summary of Care Provided Minutes Spent on Discharge: 35 Hospital Course: 81-year-old female with past medical history of type II DM, who is wheelchair-bound, resident in a shelter comes in with persistent nausea and vomiting that started 1 day before admission. This was associated with confusion and decreased level consciousness. Patient was found to have acute DKA in the emergency room. She received IV fluids with improvement. Patient did not require any insulin drips. She was monitored overnight with improvement. She was resumed on her home Lantus. Her blood sugars remained stable. She will continue on her Lantus regimen. She was discharged back to the alf facility in a stable state. Patient appears to have improved much faster than anticipated for her clinical course. Physical Exam Narrative See progress note of the day Weight / BMI Weight Weight: 53.5 kg Body Mass Index (BMI) 22.2 ABG / Lab / Microbiology Data Result Diagrams: 08/19/21 06:02 08/19/21 12:56 Laboratory: Laboratory Results - last 24 hr 08/18/21 17:53: WBC 12.4 H, RBC 4.91, Hgb 14.3, Hct 42.4, MCV 86.4, MCH 29.1, MCHC 33.7, RDW Std Deviation 43.5, RDW Coeff of Juan 13.7, Plt Count 229, MPV 10.9, Immature Gran % (Auto) 0.800, Neut % (Auto) 74.2 H, Lymph % (Auto) 20.6, [place] % (Auto) 4.1, Eos % (Auto) 0.0, Baso % (Auto) 0.3, Absolute Neuts (auto) 9.2 H, Absolute Lymphs (auto) 2.55, Nucleated RBC % 0 08/18/21 17:53: Sodium 131 L, Potassium 5.3 H, Chloride 98, Carbon Dioxide 18.0 L, Anion Gap 15, BUN 30 H, Creatinine 1.48 H, Estim Creat Clear Calc 24.38, Est GFR (MDRD) Af Amer 44 L, Est GFR (MDRD) Non-Af 36 L, BUN/Creatinine Ratio 20.3 H , Glucose 321 H, Calcium 10.5 H, Total Bilirubin 0.90, AST 10 L, ALT 13, Alkaline Phosphatase 105, Total Protein 7.7, Albumin 4.0, Globulin 3.7, Albumin/Globulin Ratio 1.1 08/18/21 17:53: Acetone Level MODERATE H 08/18/21 18:09: POC Glucose 309 H 08/18/21 18:20: Urine Color Yellow, Urine Clarity Clear, Urine pH 5.0, Ur Specific [place] 1.025, Urine Protein 30 H, Urine Glucose (UA) 1000 H, Urine Ketones 150 A*, Urine Occult Blood Negative, Urine Nitrite Negative, Urine Bilirubin Negative, Urine Urobilinogen Normal, Ur Leukocyte Esterase Negative, Urine RBC 0 SEEN, Urine WBC 0 SEEN, Ur Squamous Epith Cells 0 SEEN, Urine Bacteria 0 SEEN, Hyaline Casts 5-10 SEEN, Urine Mucus 0 SEEN 08/18/21 19:32: Sodium 133 L, Potassium 6.1 H*, Chloride 103, Carbon Dioxide 19.0 L, Anion Gap 11, BUN 29 H, Creatinine 1.27 H, Estim Creat Clear Calc 28.41, Est GFR (MDRD) Af Amer 52 L, Est GFR (MDRD) Non-Af 43 L, BUN/Creatinine Ratio 22.8 H, Glucose 314 H, Calcium 9.3 08/18/21 20:12: POC Glucose 276 H 08/18/21 21:03: POC Glucose 300 H 08/18/21 21:47: POC Glucose 283 H 08/18/21 22:10: Hemoglobin A1c 9.4 H 08/18/21 22:10: Sodium 134 L, Potassium 5.0, Chloride 108 H, Carbon Dioxide 17.0 L, Anion Gap 9, BUN 26 H, Creatinine 1.09 H, Estim Creat Clear Calc 31.58, Est GFR (MDRD) Af Amer 62, Est GFR (MDRD) Non-Af 51 L, BUN/Creatinine Ratio 23.9 H, Glucose 288 H, Calcium 8.5 08/19/21 00:43: POC Glucose 264 H 08/19/21 01:27: Sodium 136, Potassium 4.7, Chloride 110 H, Carbon Dioxide 19.0 L , Anion Gap 7, BUN 24 H, Creatinine 1.02, Estim Creat Clear Calc 33.75, Est GFR (MDRD) Af Amer 67, Est GFR (MDRD) Non-Af 56 L, BUN/Creatinine Ratio 23.5 H, Glucose 261 H, Calcium 8.5 08/19/21 01:55: POC Glucose 246 H 08/19/21 05:55: POC Glucose 187 H 08/19/21 06:02: Sodium 137, Potassium 4.2, Chloride 110 H, Carbon Dioxide 21.0, Anion Gap 6, BUN 22 H, Creatinine 0.94, Estim Creat Clear Calc 36.62, Est GFR (MDRD) Af Amer 74, Est GFR (MDRD) Non-Af 61, BUN/Creatinine Ratio 23.4 H, Glucose 186 H, Calcium 8.2 L 08/19/21 06:02: WBC 10.3, RBC 3.91 L, Hgb 11.3 L, Hct 33.6 L, MCV 85.9, MCH 28.9, MCHC 33.6, RDW Std Deviation 44.3 H, RDW Coeff of Juan 14.1, Plt Count 160, MPV 11.1, Immature Gran % (Auto) 0.400, Neut % (Auto) 66.0, Lymph % (Auto) 25.9, [place] % (Auto) 6.9, Eos % (Auto) 0.4, Baso % (Auto) 0.4, Absolute Neuts (auto) 6.8, Absolute Lymphs (auto) 2.66, Nucleated RBC % 0 08/19/21 10:00: Sodium 138, Potassium 3.7, Chloride 110 H, Carbon Dioxide 21.0, Anion Gap 7, BUN 18, Creatinine 0.78, Estim Creat Clear Calc 34.42, Est GFR (MDRD) Af Amer 92, Est GFR (MDRD) Non-Af 76, BUN/Creatinine Ratio 23.2 H, Glucose 103, Calcium 8.1 L 08/19/21 10:13: POC Glucose 109 H 08/19/21 12:56: Sodium 137, Potassium 3.6, Chloride 108 H, Carbon Dioxide 23.0, Anion Gap 6, BUN 17, Creatinine 0.71, Estim Creat Clear Calc 34.42, Est GFR (MDRD) Af Amer 102, Est GFR (MDRD) Non-Af 84, BUN/Creatinine Ratio 24.0 H, Glucose 86, Calcium 8.3 L ABG: ABG 08/18/21 18:04 Specimen Type CATHY VBG pH 7.26 L VBG pO2 22 L VBG HCO3 19 L VBG Total CO2 20 L VBG O2 Sat (Calc) 30 L VBG Base Excess -8 L POC Mix VBG pCO2 Pt Tmp 42.1 D/C Instructions Discharge Diet: No restrictions Meaningful Use Info Meaningful Use Diagnoses (Choose all that apply): None applicable Discharge Plan Admission Admit Date/Time: 08/18/21 20:09 Primary Reason for Your Visit: Acute DKA/hyperglycemia Attending Provider: Elise Sanchez Primary Care Provider: Rg Kwon Discharge Orders/Prescriptions Prescriptions: Continued levothyroxine 75 MCG tablet 50 mcg PO DAILY RF: 0 Levemir FlexTouch U-100 Insuln 100 UNITS/ML insulin pen 29 units subcut DAILY RF: 0 baclofen 10 MG tablet 15 mg PO TID RF: 0 lorazepam [Ativan] 0.5 mg Tablet 0.25 mg PO DAILY@0800 RF: 0 lisinopril 5 mg Tablet 5 mg PO DAILY RF: 0 insulin aspart U-100 [Novolog Flexpen U-100 Insulin] 100 unit/mL (3 mL) Insulin Pen See Protocol sliding scale dose SUBCUT ACHS RF: 0 bisacodyl 10 mg Suppository 10 mg OR DAILY PRN (Reason: Constipation) RF: 0 calcium carbonate 500 mg calcium (1,250 mg) Tablet,Chewable 500 mg PO Q4H PRN (Reason: Indigestion) RF: 0 Referrals / Follow Up: Rg Kwon MD [Primary Care Provider] - In 1 Week Disposition Disposition (needs filled in before D/C Order can be placed): Intermediate Facility Charges/Coding Visit Charges Inpatient E&M: 58426 Subs Hosp L2
--- NOTE | 2021-08-19 14:30 | CASEMGMT ---
LILIA Note Referral Source: BEVERLY CM Referral Reason: Discharge Planning LILIA called [facility] and spoke to [place]. [place] stated that she will contact her manager technical training, via text, and inquire as to what to do in regards to if patient can return today. LILIA met with patient and her daughter, Nyla. Nyla expressed frustration as to her mother, patient, not receiving good care and food. SW provided supportive listening. Family has called the Ombudsman and patient has met with the ombudsman. Nyla did say that there was some good staff there. LILIA discussed that patient is being discharged today and Nyla verbalized understanding. Nyla said that she wants patient to go to another facility but doesn't want it to be a worse facility. Lilia provided Nyla with list of SNF in [facility]. Nyla said that she will call the Facility[facility], and ensure that patient's room is clean. LILIA explained that this documentation writer will have staff call her so she knows what time patient will be discharged. Nyla and patient appeared comfortable with plan. LILIA received voice mail from Nyla from the [facility]. LILIA was advised that patient can return. LILIA spoke to Samira, sweatband drummer, and she said that she will update MD for discharge. LILIA asked Zulay, Multimedia Programmer, to arrange for transportation for patient. LILIA also updated Zulay and Samira that facility needs to be called and family needs to be updated as the time of patient's discharge. LILIA spoke to patient's daughter, Nyla and advised of Marcelo Ribeiro and that this documentation writer will put information about it in the mail. Nyla appreciative. Plan: Return to [facility]
[2021-08-19] MEDS: Insulin Glargine-YFGN 100 UNIT/ML Pen 29 UNIT SC (14:47)
[2021-08-19] MEDS: Baclofen 10 MG Tablet 15 MG PO (14:51)
[2021-08-19 15:01] LABS: Bedside Glucose 203 mg/dL (74-106)
--- NOTE | 2021-08-19 15:41 | NURSING ---
Report called to [facility] in [place]
[2021-08-19 16:46] LABS: Bedside Glucose 252 mg/dL (74-106)
== END 2021-08-19 17:24 | DRG 638 ==
LOC: ED 20:32 → PCU 20:56
PROVIDERS: Admitting Provider Hospitalist; Emergency Provider Emergency Medicine; PCP Family Medicine; Visit Provider Internal Medicine
DX: E11.10 Type 2 diabetes mellitus with ketoacidosis without coma (principal); N17.9 Acute kidney failure, unspecified; E11.65 Type 2 diabetes mellitus with hyperglycemia; E11.22 Type 2 diabetes mellitus with diabetic chronic kidney disease; N18.31 Chronic kidney disease, stage 3a; E87.5 Hyperkalemia; E86.0 Dehydration; E03.9 Hypothyroidism, unspecified; F32.A Depression, unspecified; F41.9 Anxiety disorder, unspecified; Z99.3 Dependence on wheelchair; Z79.4 Long term (current) use of insulin; Z79.890 Hormone replacement therapy; Z87.891 Personal history of nicotine dependence
CPT/HCPCS: 36415; 51702; 80048; 80053; 81001; 82009; 82803; 82962; 83036; 85025; 93005; 97162; 97166; 97802; 99285; J7030; A4216; J2405

== ENCOUNTER 2021-08-30 18:04 | Emergency (ER) | payer MEDICARE, MEDICAID, SELFPAY ==
[2021-08-30 18:05] VITALS: BP 88/67; PULSE 70; RESP 16; TEMP 36; O2SAT 98; BMI 25.9
--- NOTE | 2021-08-30 18:40 | EX.ED.DYSGE1 ---
HPI History of Present Illness Chief Complaint: Hypotension Informant: patient Onset/Context/Timing Onset: Today Current Severity: Gone Maximum Severity: Moderate Narrative Narrative: Patient presents via EMS secondary to low blood pressure. She is a resident at the [facility]. Patient states after dinner this evening she became cold and sweaty with nausea. She vomited. She states she was told her blood pressure was low. She normally runs low blood pressure in the 80s and 90s systolic. EMS notes they were told patient's blood pressure was 70 over palp. At this time patient states she feels improved and back to baseline. PFSH PFS Medical History Anxiety Depression Diabetes Hypothyroidism Home Medications Levemir FlexTouch U-100 Insuln 29 units SUBCUT DAILY 04/21/18 [History Last Taken 04/20/18] levothyroxine 50 mcg PO DAILY 04/21/18 [History Last Taken 04/21/18] baclofen 15 mg PO TID 11/27/18 [History Last Taken Unknown] bisacodyl 10 mg NE DAILY PRN 08/18/21 [History Last Taken Unknown] calcium carbonate 500 mg PO Q4H PRN 08/18/21 [History Last Taken Unknown] insulin aspart U-100 [Novolog Flexpen U-100 Insulin] See Protocol SUBCUT ACHS 08/18/21 [History Last Taken Unknown] lisinopril 5 mg PO DAILY 08/18/21 [History Last Taken Unknown] lorazepam [Ativan] 0.25 mg PO DAILY@0800 08/18/21 [History Last Taken Unknown] Allergy/AdvReac Type Severity Reaction Status Date / Time No Known Allergies Allergy Verified 11/28/18 01:11 Family History Other Cancer Heart disease Surgical History History of uterine fibroid Social History Smoking Status: Former smoker ROS ROS ED Constitutional Constitutional ED: Denies chills or fever(s) Eyes Eyes: Denies change in vision ENT ENT ED: Denies sore throat Cardiovascular Cardiovascular: Denies chest pain Respiratory/Chest Respiratory/Chest: Denies cough or dyspnea Gastrointestinal Gastrointestinal: Reports nausea and vomiting; Denies abdominal pain Musculoskeletal Musculoskeletal: Denies back pain or neck pain Integumentary Denies rash Neurologic Neurologic: Denies headache(s) or weakness Allergic/Immunologic Allergic/Immunologic ED: Denies urticaria EXAM Physical Exam Const Vital Signs: 08/30/21 18:05 08/30/21 18:13 08/30/21 20:07 Temperature 96.8 F L Temperature Source Temporal Pulse Rate 70 69 Respiratory Rate 16 18 Respiratory Pattern Normal Blood Pressure 88/67 L 94/74 Blood Pressure Mean 74 Pulse Ox 98 96 Oxygen Delivery Method Room Air Positive well nourished and well developed General Appearance ED: well developed HEENT Reports moist mucous membranes Neck supple Chest Wall inspection of chest normal and palpation of chest normal Resp normal respiratory effort and clear to auscultation bilaterally Cardio regular rate and regular rhythm GI non-tender Palpation: soft Extremity normal to inspection Neuro oriented x3 Sensorium / Orientation: alert Psych mental status grossly normal Skin no rashes or lesions noted MDM MDM MDM Narrative Medical decision making narrative: Patient given IV fluids. Lab work obtained. Lab Data Attestation: I reviewed the patient's lab results. Labs: Laboratory Results - last 24 hr 08/30/21 08/30/21 18:20 18:20 WBC 15.4 H RBC 4.32 Hgb 12.9 Hct 38.0 MCV 88.0 MCH 29.9 MCHC 33.9 RDW Std Deviation 46.1 H RDW Coeff of Juan 14.4 Plt Count 236 MPV 10.7 Immature Gran % (Auto) 1.800 H Neut % (Auto) 70.9 H Lymph % (Auto) 18.0 L Sharkey % (Auto) 7.5 Eos % (Auto) 1.3 Baso % (Auto) 0.5 Absolute Neuts (auto) 10.9 H Absolute Lymphs (auto) 2.76 Nucleated RBC % 0 Sodium 138 Potassium 4.2 Chloride 104 Carbon Dioxide 26.0 Anion Gap 8 BUN 25 H Creatinine 1.24 H Estim Creat Clear Calc 27.76 Est GFR (MDRD) Af Amer 54 L Est GFR (MDRD) Non-Af 44 L BUN/Creatinine Ratio 20.2 H Glucose 205 H Calcium 9.5 Treatment and Re-Evaluation Narrative: Lab work does reveal elevated white count of 15.4. Hemoglobin stable. No left shift appreciated. This may be demargination from vomiting. Chemistry studies reveal a slight increase in creatinine up to 1.24. Her baseline appears to be around 0.7 or 0.8. She was given a full liter of IV fluid. Her blood pressures have been in the upper 80s and lower 90s. My suspicion is she had a vasovagal episode with her vomiting that caused her lower blood pressure. On-call coverage for PCP has been updated. [facility] will be [facility] Discharge Plan Triage Chief Complaint: Hypotension ED Provider: Erika Avalos Dx/Rx/DC Orders Clinical Impression: Vomiting, Hypotension Instructions: ED Low Blood Pressure, All Causes Prescriptions: No Action levothyroxine 75 MCG tablet 50 mcg PO DAILY RF: 0 Levemir FlexTouch U-100 Insuln 100 UNITS/ML insulin pen 29 units subcut DAILY RF: 0 baclofen 10 MG tablet 15 mg PO TID RF: 0 lorazepam [Ativan] 0.5 mg Tablet 0.25 mg PO DAILY@0800 RF: 0 lisinopril 5 mg Tablet 5 mg PO DAILY RF: 0 insulin aspart U-100 [Novolog Flexpen U-100 Insulin] 100 unit/mL (3 mL) Insulin Pen See Protocol sliding scale dose SUBCUT ACHS RF: 0 bisacodyl 10 mg Suppository 10 mg NE DAILY PRN (Reason: Constipation) RF: 0 calcium carbonate 500 mg calcium (1,250 mg) Tablet,Chewable 500 mg PO Q4H PRN (Reason: Indigestion) RF: 0 Primary Care Provider: Rg Kwon Referrals: Rg Kwon MD [Primary Care Provider] - 5-7 Days Activity Restrictions/Additional Instructions: Increase p.o. fluid intake over the next several days. Disposition Disposition: Home, Self Care Discharge Date/Time: 08/30/21 20:38
[2021-08-30 18:53] LABS: Absolute Lymphocyte Count 2.76 X10^3/uL (0.83-4.51); Absolute Neutrophil Count 10.9 X10^3/uL (2.0-7.7); Basophil# 0.08 X10^3/uL; Basophil% 0.5 % (0-1); Eosinophils% 1.3 % (0-5); Hemoglobin 12.9 g/dL (12.0-15.0); Lymphocyte # 2.76 X10^3/ul (0.83-4.51); Mean Corp Hgb Conc 33.9 g/dL (32-36); Mean Corpuscular Hgb 29.9 pg (27.0-32.0); Mean Platelet Vol. 10.7 fl (6.2-12.0); Monocyte# 1.15 X10^3/uL; Monocyte% 7.5 % (0-10); NRBC Flagged by Analyzer 0 % (0-5); Neutrophil # 10.91 X10^3/uL (2.7-7.7); Neutrophil % 70.9 % (47-70); Platelet Count 236 K/mm3 (150-450); RBC Distribution Width CV 14.4 % (11.6-14.6); RBC Distribution Width SD 46.1 fl (35.1-43.9); Red Blood Count 4.32 M/mm3 (4.2-5.4); White Blood Count 15.4 K/mm3 (4.4-11.0)
[2021-08-30 19:10] LABS: Anion Gap 8 (5-15); BUN 25 mg/dL (7-18); BUN/Creat Ratio 20.2 RATIO (10-20); Calcium,Total 9.5 mg/dL (8.5-10.1); Chloride 104 mmol/L (98-107); Creatinine, Serum 1.24 mg/dL (0.55-1.02); EST Glomerular Filtration Rate 44 mL/min (>60); Est Glom Filt Rate - Afr Amer 54 mL/min (>60); Estimated Creatinine Clearance 27.76 ml/min; Glucose 205 mg/dL (74-106); Potassium 4.2 mmol/L (3.5-5.1); Sodium Level 138 mmol/L (136-145)
[2021-08-30 20:07] VITALS: BP 94/74; PULSE 69; RESP 18; O2SAT 96
--- NOTE | 2021-08-30 20:12 | ED.RN ---
[facility] notified of return of pt,update given.
== END 2021-08-30 20:38 | disposition home or self-care (01) ==
PROVIDERS: Emergency Provider Emergency Medicine; PCP Family Medicine; Visit Provider Emergency Medicine
DX: I95.9 Hypotension, unspecified (principal); E11.9 Type 2 diabetes mellitus without complications; Z79.4 Long term (current) use of insulin; R11.2 Nausea with vomiting, unspecified; Z87.891 Personal history of nicotine dependence; R03.1 Nonspecific low blood-pressure reading; F41.9 Anxiety disorder, unspecified; F32.A Depression, unspecified; E03.9 Hypothyroidism, unspecified; Z79.899 Other long term (current) drug therapy; Z79.890 Hormone replacement therapy
CPT/HCPCS: 80048; 85025; 96360; 99285; J7030; A4216

== ENCOUNTER 2022-03-01 10:23 | Emergency (ER) | payer MEDICARE, MEDICAID, SELFPAY ==
[2022-03-01 10:25] VITALS: BP 86/74; PULSE 80; PULSE 83; RESP 16; TEMP 36.2; O2SAT 96; O2SAT 98; BMI 21.9
[2022-03-01 10:29] VITALS: BP 97/70; PULSE 83; RESP 16; TEMP 36.2; O2SAT 96
[2022-03-01 11:11] LABS: Absolute Lymphocyte Count 2.41 X10^3/uL (0.83-4.51); Absolute Neutrophil Count 6.7 X10^3/uL (2.0-7.7); Basophil# 0.05 X10^3/uL; Basophil% 0.5 % (0-1); Eosinophil# 0.17 X10^3/uL; Eosinophils% 1.7 % (0-5); Hematocrit 42.6 % (37-47); Lymphocyte # 2.41 X10^3/ul (0.83-4.51); Mean Corp Hgb Conc 32.9 g/dL (32-36); Mean Corpuscular Hgb 28.6 pg (27.0-32.0); Mean Corpuscular Volume 86.9 fL (81-99); Mean Platelet Vol. 10.1 fl (6.2-12.0); Monocyte# 0.66 X10^3/uL; Monocyte% 6.6 % (0-10); NRBC Flagged by Analyzer 0 % (0-5); Neutrophil # 6.66 X10^3/uL (2.7-7.7); Neutrophil % 66.4 % (47-70); Platelet Count 228 K/mm3 (150-450); RBC Distribution Width CV 13.8 % (11.6-14.6); RBC Distribution Width SD 44.4 fl (35.1-43.9)
[2022-03-01 11:24] LABS: Anion Gap 8 (5-15); BUN 23 mg/dL (7-18); Calcium,Total 10.1 mg/dL (8.5-10.1); Chloride 101 mmol/L (98-107); EST Glomerular Filtration Rate 57 mL/min (>60); Est Glom Filt Rate - Afr Amer 69 mL/min (>60); Estimated Creatinine Clearance 37.74 ml/min; Glucose 237 mg/dL (74-106); Potassium 4.4 mmol/L (3.5-5.1); Sodium Level 136 mmol/L (136-145)
--- NOTE | 2022-03-01 12:19 | EDS_ITS ---
HPI History of Present Illness Chief Complaint: Hyperglycemia Narrative Narrative: 81-year-old female with history of diabetes presenting with hyperglycemia. 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 She states that her daughter called and asked them to check her at the retirement every hour. She reports he was given 5 units of insulin multiple times. When EMS arrived her blood sugar was 262. She still opted to be transported because her daughter was concerned she might be in a hyperosmolar state or DKA. Patient states that she had 1 episode of vomiting earlier but now she feels fine. She denied fever, chills, body aches. She does not have chest pain or shortness of breath. No abdominal pain. No urinary complaints. She states she drinks tons of water. She does not believe she is dehydrated. She states she is a brittle diabetic and she would not be treated for hyperglycemia until her blood sugar goes above 170 typically. [facility] Medical History Anxiety Depression Diabetes Hypothyroidism Home Medications insulin detemir U-100 100 unit/mL (3 mL) subcutaneous pen (Levemir FlexTouch U- 100 Insulin) 29 units subcut DAILY 04/21/18 [History Last Taken 04/20/18] levothyroxine 75 mcg tablet 50 mcg PO DAILY 04/21/18 [History Last Taken 04/21/18] baclofen 10 mg tablet 15 mg PO TID spasms 11/27/18 [History Last Taken Unknown] bisacodyl 10 mg rectal suppository 10 mg CA DAILY PRN Constipation 08/18/21 [History Last Taken Unknown] calcium carbonate 500 mg calcium (1,250 mg) chewable tablet 500 mg PO Q4H PRN Indigestion 08/18/21 [History Last Taken Unknown] insulin aspart U-100 100 unit/mL (3 mL) subcutaneous pen (Novolog Flexpen U-100 Insulin aspart) See Protocol subcut ACHS diabetes 08/18/21 [History Last Taken Unknown] lisinopril 5 mg tablet 5 mg PO DAILY 08/18/21 [History Last Taken Unknown] lorazepam 0.5 mg tablet (Ativan) 0.25 mg PO DAILY@0800 08/18/21 [History Last Taken Unknown] Allergy/AdvReac Type Severity Reaction Status Date / Time No Known Allergies Allergy Verified 11/28/18 01:11 Family History Other Cancer Heart disease Surgical History History of uterine fibroid Social History Smoking Status: Former smoker ROS ROS ED Constitutional Constitutional ED: Denies chills Eyes Eyes: Denies change in vision or diplopia ENT ENT ED: Denies rhinorrhea or sore throat Cardiovascular Cardiovascular: Denies palpitations or racing heartbeat Respiratory/Chest Respiratory/Chest: Denies cough or dyspnea Gastrointestinal Gastrointestinal: Reports nausea and vomiting; Denies abdominal pain Genitourinary Genitourinary ED: Denies dysuria or hematuria Musculoskeletal Musculoskeletal: Denies arthralgias or back pain Integumentary Denies abscess Neurologic Neurologic: Denies headache(s) or paresthesias Psychiatric Psychiatric: Denies anxiety or depression Endocrine Endocrinology: Denies cold intolerance, heat intolerance, polydipsia, polyphagia or polyuria EXAM Physical Exam Const Vital Signs: 03/01/22 10:25 03/01/22 10:25 03/01/22 10:29 Temperature 97.2 F L 97.2 F L 97.2 F L Temperature Source Oral Oral Oral Pulse Rate 80 83 83 Respiratory Rate 16 16 16 Blood Pressure 86/74 L 86/74 L 97/70 Blood Pressure Mean 78 78 79 Pulse Ox 96 98 96 Oxygen Delivery Method Room Air Room Air Room Air Positive well nourished General Appearance ED: NAD; Negative for pallor HEENT Reports moist mucous membranes Negative for trauma Eyes PERRL and EOMs intact bilaterally Resp normal respiratory effort Auscultation: Negative for rales, rhonchi or wheezes Cardio regular rate and regular rhythm GI normal to inspection, nondistended, normoactive bowel sounds Extremity normal to inspection General Extremety ED: Negative for edema or tenderness General Extremity: Negative for edema Neuro oriented x3, CN's II-XII intact bilaterally and no sensory deficits noted Sensorium / Orientation: alert Motor Exam: strength 5/5 throughout Psych mental status grossly normal Skin no rashes or lesions noted and no wounds General Skin Exam: Negative for jaundice or pallor MDM MDM MDM Narrative Medical decision making narrative: Patient seen and evaluated on arrival for hyperglycemia. Appears her blood sugars had been in the 263 range prior to transport. I checked basic lab work and her CBC is unremarkable. BMP shows a normal creatinine of 1.0 and her electrolytes are normal. Negative for acetone. Her blood sugar was 237. There is no anion gap. At this point the patient does not want be treated for her blood sugar as it is already coming down. She states she feels well and although she had an episode of vomiting earlier she does not have any complaints. This resolved send her back to her facility. She will check her blood sugars there. Return precautions discussed. Impression: 1. Hyperglycemia 2. Nausea/vomiting?resolved Lab Data Attestation: I reviewed the patient's lab results. Labs: Laboratory Results - last 24 hr 03/01/22 03/01/22 03/01/22 11:00 11:00 11:00 WBC 10.0 RBC 4.90 Hgb 14.0 Hct 42.6 MCV 86.9 MCH 28.6 MCHC 32.9 RDW Std Deviation 44.4 H RDW Coeff of Juan 13.8 Plt Count 228 MPV 10.1 Immature Gran % (Auto) 0.800 Neut % (Auto) 66.4 Lymph % (Auto) 24.0 [place] % (Auto) 6.6 Eos % (Auto) 1.7 Baso % (Auto) 0.5 Absolute Neuts (auto) 6.7 Absolute Lymphs (auto) 2.41 Nucleated RBC % 0 Sodium 136 Potassium 4.4 Chloride 101 Carbon Dioxide 27.0 Anion Gap 8 BUN 23 H Creatinine 1.00 Estim Creat Clear Calc 37.74 Est GFR (MDRD) Af Amer 69 Est GFR (MDRD) Non-Af 57 L BUN/Creatinine Ratio 23.0 H Glucose 237 H Calcium 10.1 Acetone Level NEGATIVE Discharge Plan Triage Chief Complaint: Hyperglycemia ED Provider: Rex Conrad Dx/Rx/DC Orders Instructions: ED Diabetic Hyperglycemia Prescriptions: No Action levothyroxine 75 MCG tablet 50 mcg PO DAILY Rx Instructions: CONCHITA. NO GENERIC. Levemir FlexTouch U-100 Insuln 100 UNITS/ML insulin pen 29 units subcut DAILY baclofen 10 MG tablet 15 mg PO TID lorazepam [Ativan] 0.5 mg Tablet 0.25 mg PO DAILY@0800 lisinopril 5 mg Tablet 5 mg PO DAILY insulin aspart U-100 [Novolog Flexpen U-100 Insulin] 100 unit/mL (3 mL) Insulin Pen See Protocol SUBCUT [facility] Protocol: 6. Sliding Scale Insulin Custom Condition: 170-220 Dose/Route: 1 Condition: 221-270 Dose/Route: 2 Condition: 271-320 Dose/Route: 3 Condition: 321-370 Dose/Route: 4 Condition: 371-420 Dose/Route: 5 Protocol Text: Custom Sliding Scale bisacodyl 10 mg Suppository 10 mg CA DAILY PRN (Reason: Constipation) calcium carbonate 500 mg calcium (1,250 mg) Tablet,Chewable 500 mg PO Q4H PRN (Reason: Indigestion) Primary Care Provider: Rg Kwon Referrals: Rg Kwon MD [Primary Care Provider] - Disposition Disposition: Home, Self Care
[2022-03-01 13:29] VITALS: BP 102/63; PULSE 77; RESP 18; O2SAT 93
== END 2022-03-01 13:59 | disposition home or self-care (01) ==
PROVIDERS: Emergency Provider Student in an Organized Health Care Education/Training Program; PCP Family Medicine; Visit Provider Student in an Organized Health Care Education/Training Program
DX: E11.65 Type 2 diabetes mellitus with hyperglycemia (principal); R11.2 Nausea with vomiting, unspecified; Z87.891 Personal history of nicotine dependence
CPT/HCPCS: 80048; 82009; 85025; 99284

== ENCOUNTER 2022-04-28 21:56 | Emergency (ER) | payer MEDICARE, MEDICAID, SELFPAY ==
[2022-04-28 21:57] VITALS: BP 126/92; PULSE 99; RESP 18; TEMP 35.7; O2SAT 95; BMI 24.1
--- NOTE | 2022-04-28 22:35 | EDS_ITS ---
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 Reported today she began with bouts of nausea and vomiting and her blood sugar dropped down to the 50s and she was combative. Daughter states that she is unsure if she was still given her insulin despite the hypoglycemia event. Daughter states has been difficult to get food or drink into the patient because of her mental status and bouts of nausea and vomiting and secondary to this EMS was called to bring her to the ER for evaluation. Daughter states patient was given glucagon by EMS and her blood sugar improved and this helped her combative mental status [facility] Medical History Anxiety Depression Diabetes Hypothyroidism Home Medications insulin detemir U-100 100 unit/mL (3 mL) subcutaneous pen (Levemir FlexTouch U- 100 Insulin) 29 units subcut DAILY 04/21/18 [History Last Taken 04/20/18] levothyroxine 75 mcg tablet 50 mcg PO DAILY 04/21/18 [History Last Taken 04/21/18] baclofen 10 mg tablet 15 mg PO TID spasms 11/27/18 [History Last Taken Unknown] bisacodyl 10 mg rectal suppository 10 mg MD DAILY PRN Constipation 08/18/21 [History Last Taken Unknown] calcium carbonate 500 mg calcium (1,250 mg) chewable tablet 500 mg PO Q4H PRN Indigestion 08/18/21 [History Last Taken Unknown] insulin aspart U-100 100 unit/mL (3 mL) subcutaneous pen (Novolog Flexpen U-100 Insulin aspart) See Protocol subcut ACHS diabetes 08/18/21 [History Last Taken Unknown] lorazepam 0.5 mg tablet (Ativan) 0.25 mg PO DAILY@0800 08/18/21 [History Last Taken Unknown] Senna Plus (senna-docusate) 8.6 - 50 mg PO.IVFORM DAILY 04/28/22 [History Last Taken Unknown] glucagon 1 mg solution for injection (Glucagon Emergency Kit) 1 mg IM PRN PRN Hypoglycemia 04/28/22 [History Last Taken Unknown] ondansetron HCl 4 mg tablet 4 mg PO PRN PRN Nausea 04/28/22 [History Last Taken Unknown] ondansetron 4 mg disintegrating tablet 4 mg PO TID PRN nausea and vomiting #21 tabs 04/29/22 [Rx Last Taken Unknown] Allergy/AdvReac Type Severity Reaction Status Date / Time No Known Allergies Allergy Verified 11/28/18 01:11 Family History Other Cancer Heart disease Surgical History History of uterine fibroid Social History Smoking Status: Former smoker ROS ROS ED Constitutional Constitutional ED: Denies chills or fever(s) Eyes Eyes: Denies change in vision ENT ENT ED: Denies sore throat Cardiovascular Cardiovascular: Denies chest pain Respiratory/Chest Respiratory/Chest: Denies cough or dyspnea Gastrointestinal Gastrointestinal: Reports nausea and vomiting; Denies abdominal pain or diarrhea Genitourinary Genitourinary ED: Denies dysuria Musculoskeletal Musculoskeletal: Reports myalgias Integumentary Denies rash Neurologic Neurologic: Reports headache(s) Hematologic/Lymphatic Hematologic/Lymphatic: Denies easy bleeding or easy bruising EXAM Physical Exam Const Vital Signs: 04/28/22 21:57 04/29/22 00:13 04/29/22 02:27 Temperature 96.2 F L Temperature Source Temporal Pulse Rate 99 83 77 Respiratory Rate 18 18 Blood Pressure 126/92 H Blood Pressure Mean 103 Pulse Ox 95 96 97 Oxygen Delivery Method Room Air Room Air Room Air Positive well nourished and well developed General Appearance ED: well developed HEENT Reports dry mucous membranes Mouth ED: Yes dry mucous membranes Mouth: dry mucous membranes Eyes PERRL and EOMs intact bilaterally General Eye ED: Negative for scleral icterus Neck supple Neck Narrative: No meningeal signs Resp normal respiratory effort and clear to auscultation bilaterally Cardio regular rate and regular rhythm Rate: other Other Details: Radial pulses are plus 2 out of 4 bilaterally are equal and symmetric GI non-tender and non-distended Auscultation: normoactive bowel sounds Palpation: soft Extremity Extremity Narrative: Patient has chronic deformity to her right foot as well as stiffness to her arms and legs consistent with her history of stiff person syndrome Neuro oriented x3, CN's II-XII intact bilaterally and no sensory deficits noted Sensorium / Orientation: alert Psych mental status grossly normal Skin no rashes or lesions noted Skin Narrative: Skin turgor is increased General Skin Exam: Negative for jaundice MDM MDM MDM Narrative Medical decision making narrative: Patient arrived to the ER in no acute distress with stable vitals. Her symptoms of nausea and vomiting along with muscle aches and headache is most consistent with a viral syndrome. Secondary to this basic blood work and viral swabs were obtained. Labs showed no clinically significant findings. COVID and influenza swabs were negative as well. With concern for patient having recurrent hypoglycemia I did elect to watch her in the ER for multiple hours. She did not require 1 extra dose of dextrose through the IV but after being medicated with Norflex and Zofran was able to eat and drink and upon reevaluation blood sugar was holding stable at approximately 100. Therefore at this time as she does not have acute kidney injury or severe electrolyte derangements and is maintaining her blood sugar I do not feel she needs to be kept in the hospital or placed on a D5 drip and is otherwise safe for discharge Lab Data Attestation: I reviewed the patient's lab results. Labs: Laboratory Results - last 24 hr 04/28/22 04/28/22 04/28/22 22:20 22:45 22:45 WBC 11.5 H RBC 4.65 Hgb 13.2 Hct 41.3 MCV 88.8 MCH 28.4 MCHC 32.0 RDW Std Deviation 44.3 H RDW Coeff of Juan 13.6 Plt Count 251 MPV 9.7 Immature Gran % (Auto) 1.300 H Neut % (Auto) 74.7 H Lymph % (Auto) 20.6 [place] % (Auto) 3.0 Eos % (Auto) 0.1 Baso % (Auto) 0.3 Absolute Neuts (auto) 8.6 H Absolute Lymphs (auto) 2.37 Nucleated RBC % 0 Sodium 137 Potassium 5.4 H Chloride 102 Carbon Dioxide 31.0 Anion Gap 4 L BUN 21 H Creatinine 0.63 Estim Creat Clear Calc 37.12 Est GFR (MDRD) Af Amer 118 Est GFR (MDRD) Non-Af 97 BUN/Creatinine Ratio 33.5 H Glucose 112 H Calcium 9.3 Magnesium 2.0 POC Glucose 113 H 04/29/22 04/29/22 04/29/22 00:17 01:34 02:36 WBC RBC Hgb Hct MCV MCH MCHC RDW Std Deviation RDW Coeff of Juan Plt Count MPV Immature Gran % (Auto) Neut % (Auto) Lymph % (Auto) [place] % (Auto) Eos % (Auto) Baso % (Auto) Absolute Neuts (auto) Absolute Lymphs (auto) Nucleated RBC % Sodium Potassium Chloride Carbon Dioxide Anion Gap BUN Creatinine Estim Creat Clear Calc Est GFR (MDRD) Af Amer Est GFR (MDRD) Non-Af BUN/Creatinine Ratio Glucose Calcium Magnesium POC Glucose 76 180 H 134 H Discharge Plan Triage Chief Complaint: Hypoglycemia ED Provider: Kirk Maddox Dx/Rx/DC Orders Clinical Impression: Type 2 diabetes mellitus, Nausea & vomiting, Stiff person syndrome Instructions: Hypoglycemia (Low Blood Sugar), ED Vomiting and Diarrhea ... Prescriptions: New ondansetron 4 mg tablet,disintegrating 4 mg PO TID PRN (Reason: nausea and vomiting) Qty: 21 0RF No Action levothyroxine 75 MCG tablet 50 mcg PO DAILY Rx Instructions: CONCHITA. NO GENERIC. Levemir FlexTouch U-100 Insuln 100 UNITS/ML insulin pen 29 units subcut DAILY baclofen 10 MG tablet 15 mg PO TID lorazepam [Ativan] 0.5 mg Tablet 0.25 mg PO DAILY@0800 insulin aspart U-100 [Novolog Flexpen U-100 Insulin] 100 unit/mL (3 mL) Insulin Pen See Protocol SUBCUT ACHS Protocol: 6. Sliding Scale Insulin Custom Condition: 170-220 Dose/Route: 1 Condition: 221-270 Dose/Route: 2 Condition: 271-320 Dose/Route: 3 Condition: 321-370 Dose/Route: 4 Condition: 371-420 Dose/Route: 5 Protocol Text: Custom Sliding Scale bisacodyl 10 mg Suppository 10 mg MD DAILY PRN (Reason: Constipation) calcium carbonate 500 mg calcium (1,250 mg) Tablet,Chewable 500 mg PO Q4H PRN (Reason: Indigestion) ondansetron HCl 4 mg tablet 4 mg PO PRN PRN (Reason: Nausea) Glucagon Emergency Kit (human) 1 mg recon soln 1 mg IM PRN PRN (Reason: Hypoglycemia) Senna Plus (senna-docusate) 8.6 - 50 mg PO.IVFORM DAILY Primary Care Provider: Rg Kwon Referrals: Kwon,Rg, MD [Primary Care Provider] - Activity Restrictions/Additional Instructions: Please continue your medications as directed by your family doctor and use the Zofran to help control bouts of nausea and vomiting so that you can eat and keep your blood sugar stable. If you have any further concerns please return for repeat evaluation Disposition Disposition: Home, Self Care
[2022-04-28 22:40] LABS: Bedside Glucose 113 mg/dL (74-106)
[2022-04-28 22:55] LABS: Absolute Lymphocyte Count 2.37 X10^3/uL (0.83-4.51); Absolute Neutrophil Count 8.6 X10^3/uL (2.0-7.7); Basophil# 0.04 X10^3/uL; Basophil% 0.3 % (0-1); Eosinophil# 0.01 X10^3/uL; Eosinophils% 0.1 % (0-5); Hematocrit 41.3 % (37-47); Hemoglobin 13.2 g/dL (12.0-15.0); Lymphocyte # 2.37 X10^3/ul (0.83-4.51); Lymphocyte % 20.6 % (19-41); Mean Corpuscular Hgb 28.4 pg (27.0-32.0); Mean Corpuscular Volume 88.8 fL (81-99); Mean Platelet Vol. 9.7 fl (6.2-12.0); Monocyte# 0.35 X10^3/uL; NRBC Flagged by Analyzer 0 % (0-5); Neutrophil % 74.7 % (47-70); Platelet Count 251 K/mm3 (150-450); RBC Distribution Width CV 13.6 % (11.6-14.6); RBC Distribution Width SD 44.3 fl (35.1-43.9); Red Blood Count 4.65 M/mm3 (4.2-5.4); White Blood Count 11.5 K/mm3 (4.4-11.0)
[2022-04-28] MEDS: Ondansetron 4 MG/2 ML Vial IV (22:55)
[2022-04-28] MEDS: Ketorolac 15 MG/ML Vial IV (22:56)
[2022-04-28 23:08] LABS: Anion Gap 4 (5-15); BUN 21 mg/dL (7-18); BUN/Creat Ratio 33.5 RATIO (10-20); Calcium,Total 9.3 mg/dL (8.5-10.1); Chloride 102 mmol/L (98-107); Creatinine, Serum 0.63 mg/dL (0.55-1.02); EST Glomerular Filtration Rate 97 mL/min (>60); Est Glom Filt Rate - Afr Amer 118 mL/min (>60); Estimated Creatinine Clearance 37.12 ml/min; Glucose 112 mg/dL (74-106); Potassium 5.4 mmol/L (3.5-5.1); Sodium Level 137 mmol/L (136-145)
[2022-04-29 00:13] VITALS: PULSE 83; O2SAT 96
[2022-04-29 00:36] LABS: Bedside Glucose 76 mg/dL (74-106)
[2022-04-29] MEDS: Dextrose 50%-Water 25 GM/50 ML DISP.SYRIN IV (00:42)
[2022-04-29 01:56] LABS: Bedside Glucose 180 mg/dL (74-106)
[2022-04-29 02:27] VITALS: PULSE 77; RESP 18; O2SAT 97
--- NOTE | 2022-04-29 02:46 | ED.RN ---
PT DAUGHTER STATES SHE NEEDS TO GO HOME. PT DAUGHTER NAME XENA MARTIN. PHONE NUMBER [phone]. DAUGHTER REQUESTS UPDATES NEEDED.
[2022-04-29 03:01] LABS: Bedside Glucose 134 mg/dL (74-106)
[2022-04-29] MEDS: Orphenadrine 60 MG/2 ML Ampul IV (03:18)
[2022-04-29 04:05] LABS: Bedside Glucose 94 mg/dL (74-106)
[2022-04-29 04:53] VITALS: BP 124/82; PULSE 70; RESP 16; O2SAT 98
== END 2022-04-29 06:52 | disposition home or self-care (01) ==
PROVIDERS: Emergency Provider Emergency Medicine; PCP Family Medicine; Visit Provider Emergency Medicine
DX: E11.649 Type 2 diabetes mellitus with hypoglycemia without coma (principal); R51.9 Headache, unspecified; R11.2 Nausea with vomiting, unspecified; Z87.891 Personal history of nicotine dependence; M79.10 Myalgia, unspecified site
CPT/HCPCS: 80048; 82962; 83735; 85025; 87428; 96361; 96374; 96375; 99285; J7040; A4216; J2405

== ENCOUNTER 2023-09-09 08:28 | Outpatient (CLI) | payer MEDICARE, MEDICAID, SELFPAY ==
[2023-09-09 08:39] VITALS: BP 129/73; PULSE 82; RESP 16; TEMP 36.7; O2SAT 95
[2023-09-09] MEDS: 0.9% NaCl Peripheral Flush Adult/Peds IV ×2 (08:47→13:37)
[2023-09-09] MEDS: Acetaminophen 325 MG Tablet 650 MG PO (08:54)
[2023-09-09] MEDS: 0.9% NaCl IVPB Med Flush (250 mL) 15 ML IV (08:54)
[2023-09-09] MEDS: DiphenhydrAMINE 50 MG/ML Syringe 25 MG IV (09:00)
[2023-09-09] MEDS: Immune Globulin 20 gm Premixed Solution 26 BAG IV (09:32)
[2023-09-09 13:39] VITALS: BP 110/65; PULSE 72; RESP 16; TEMP 36.2; O2SAT 97
== END 2023-09-09 08:29 | disposition home or self-care (01) ==
PROVIDERS: PCP Family Medicine
DX: G25.82 Stiff-man syndrome (principal)
CPT/HCPCS: 96365; 96366; J7050; A4216; J1568

== ENCOUNTER 2023-09-10 08:22 | Outpatient (CLI) | payer MEDICARE, MEDICAID, SELFPAY ==
[2023-09-10 08:39] VITALS: BP 115/67; PULSE 80; RESP 16; TEMP 36.7; O2SAT 96; BMI 23.7
[2023-09-10] MEDS: Acetaminophen 325 MG Tablet 650 MG PO (08:44)
[2023-09-10] MEDS: DiphenhydrAMINE 50 MG/ML Syringe 25 MG IV (08:45)
[2023-09-10] MEDS: Immune Globulin 20 gm Premixed Solution 26 BAG IV (09:09)
== END 2023-09-10 08:23 | disposition home or self-care (01) ==
PROVIDERS: PCP Family Medicine
DX: G25.82 Stiff-man syndrome (principal)
CPT/HCPCS: 96365; 96366; 96375; A4216; J1568

== ENCOUNTER 2023-09-11 08:20 | Outpatient (CLI) | payer MEDICARE, MEDICAID, SELFPAY ==
[2023-09-11 08:32] VITALS: BP 109/64; PULSE 77; RESP 16; TEMP 36.8; O2SAT 95
[2023-09-11] MEDS: Acetaminophen 325 MG Tablet 650 MG PO (08:35)
[2023-09-11] MEDS: 0.9% NaCl Peripheral Flush Adult/Peds IV ×2 (08:35→11:55)
[2023-09-11] MEDS: 0.9% NaCl IVPB Med Flush (250 mL) 15 ML IV (08:36)
[2023-09-11] MEDS: DiphenhydrAMINE 50 MG/ML Syringe 25 MG IV (08:38)
[2023-09-11] MEDS: Immune Globulin 20 gm Premixed Solution 26 BAG IV (09:13)
== END 2023-09-11 08:21 | disposition home or self-care (01) ==
PROVIDERS: PCP Family Medicine
DX: G25.82 Stiff-man syndrome (principal)
CPT/HCPCS: 96374; 96361; J7050; A4216; J1568

== ENCOUNTER 2023-09-12 08:35 | Outpatient (CLI) | payer MEDICARE, MEDICAID, SELFPAY ==
[2023-09-12] MEDS: DiphenhydrAMINE 50 MG/ML Syringe 25 MG IV (08:52)
[2023-09-12] MEDS: Acetaminophen 325 MG Tablet 650 MG PO (08:52)
[2023-09-12] MEDS: 0.9% NaCl Peripheral Flush Adult/Peds IV ×2 (08:53→12:07)
[2023-09-12] MEDS: 0.9% NaCl IVPB Med Flush (250 mL) 15 ML IV (08:53)
[2023-09-12 09:03] VITALS: BP 130/75; PULSE 70; RESP 16; TEMP 36.9; O2SAT 95; BMI 23.4
[2023-09-12] MEDS: Immune Globulin 20 gm Premixed Solution 26 BAG IV (09:22)
== END 2023-09-12 08:36 | disposition home or self-care (01) ==
LOC: MEDOUTP 08:35
PROVIDERS: PCP Family Medicine
DX: G25.82 Stiff-man syndrome (principal); D53.9 Nutritional anemia, unspecified
CPT/HCPCS: 96365; 96366; 96375; J7050; A4216; J1568

== ENCOUNTER 2023-09-13 08:29 | Outpatient (CLI) | payer MEDICARE, MEDICAID, SELFPAY ==
[2023-09-13 08:36] VITALS: BP 115/68; PULSE 77; RESP 16; TEMP 36.7; O2SAT 94
[2023-09-13] MEDS: Acetaminophen 325 MG Tablet 650 MG PO (08:40)
[2023-09-13] MEDS: DiphenhydrAMINE 50 MG/ML Syringe 25 MG IV (08:41)
[2023-09-13] MEDS: 0.9% NaCl IVPB Med Flush (250 mL) 15 ML IV (08:41)
[2023-09-13] MEDS: 0.9% NaCl Peripheral Flush Adult/Peds IV (08:42)
[2023-09-13] MEDS: Immune Globulin 20 gm Premixed Solution 26 BAG IV (09:11)
== END 2023-09-13 08:30 | disposition home or self-care (01) ==
LOC: MEDOUTP 08:29
PROVIDERS: PCP Family Medicine
DX: G25.82 Stiff-man syndrome (principal)
CPT/HCPCS: 96365; 96366; 96375; J7050; A4216; J1568

== ENCOUNTER 2023-10-07 08:25 | Outpatient (CLI) | payer MEDICARE, MEDICAID, SELFPAY ==
[2023-10-07 08:44] VITALS: BP 100/78; PULSE 80; RESP 16; TEMP 36.9; O2SAT 97; BMI 24.0
[2023-10-07] MEDS: 0.9% NaCl Peripheral Flush Adult/Peds IV ×2 (08:56→12:31)
[2023-10-07] MEDS: 0.9% NaCl IVPB Med Flush (250 mL) 15 ML IV (08:56)
[2023-10-07] MEDS: Acetaminophen 325 MG Tablet 650 MG PO (08:58)
[2023-10-07] MEDS: DiphenhydrAMINE 50 MG/ML Syringe 25 MG IV (09:00)
[2023-10-07] MEDS: Immune Globulin 20 gm Premixed Solution 26 BAG IV (09:24)
== END 2023-10-07 23:59 | disposition home or self-care (01) ==
LOC: MEDOUTP 08:25
PROVIDERS: PCP Family Medicine; Referring Provider Psychiatry & Neurology Neurology; Visit Provider Psychiatry & Neurology Neurology
DX: G25.82 Stiff-man syndrome (principal)
CPT/HCPCS: 96374; J7050; A4216; J1568

== ENCOUNTER 2023-10-08 08:14 | Outpatient (CLI) | payer MEDICARE, MEDICAID, SELFPAY ==
[2023-10-08] MEDS: 0.9% NaCl IVPB Med Flush (250 mL) 15 ML IV (08:27)
[2023-10-08] MEDS: 0.9% NaCl Peripheral Flush Adult/Peds IV ×2 (08:27→11:42)
[2023-10-08 08:30] VITALS: BP 103/66; PULSE 82; RESP 16; TEMP 36.8; O2SAT 93; BMI 24.0
[2023-10-08] MEDS: Acetaminophen 325 MG Tablet 650 MG PO (08:33)
[2023-10-08] MEDS: DiphenhydrAMINE 50 MG/ML Syringe 25 MG IV (08:33)
[2023-10-08] MEDS: Immune Globulin 20 gm Premixed Solution 26 BAG IV (09:02)
== END 2023-10-08 23:59 | disposition home or self-care (01) ==
LOC: MEDOUTP 08:14
PROVIDERS: PCP Family Medicine; Referring Provider Psychiatry & Neurology Neurology; Visit Provider Psychiatry & Neurology Neurology
DX: G25.82 Stiff-man syndrome (principal)
CPT/HCPCS: 96374; 96361; J7050; A4216; J1568

== ENCOUNTER 2023-10-09 08:07 | Outpatient (CLI) | payer MEDICARE, MEDICAID, SELFPAY ==
[2023-10-09] MEDS: 0.9% NaCl Peripheral Flush Adult/Peds IV (08:22)
[2023-10-09] MEDS: Acetaminophen 325 MG Tablet 650 MG PO (08:22)
[2023-10-09] MEDS: DiphenhydrAMINE 50 MG/ML Syringe 25 MG IV (08:23)
[2023-10-09 08:29] VITALS: BP 110/75; PULSE 81; RESP 16; TEMP 36.7; O2SAT 96; BMI 24.0
[2023-10-09] MEDS: 0.9% NaCl IVPB Med Flush (250 mL) 15 ML IV (08:31)
[2023-10-09] MEDS: Immune Globulin 20 gm Premixed Solution 26 BAG IV (08:40)
== END 2023-10-09 23:59 | disposition home or self-care (01) ==
LOC: MEDOUTP 08:07
PROVIDERS: PCP Family Medicine; Referring Provider Psychiatry & Neurology Neurology; Visit Provider Psychiatry & Neurology Neurology
DX: G25.82 Stiff-man syndrome (principal)
CPT/HCPCS: 96365; 96366; J7050; A4216; J1568

== ENCOUNTER 2023-10-10 08:27 | Outpatient (CLI) | payer MEDICARE, MEDICAID, SELFPAY ==
[2023-10-10] MEDS: DiphenhydrAMINE 50 MG/ML Syringe 25 MG IV (08:40)
[2023-10-10 08:43] VITALS: BP 112/66; PULSE 75; RESP 16; TEMP 36.8; O2SAT 96; BMI 24.0
[2023-10-10] MEDS: Acetaminophen 325 MG Tablet 650 MG PO (08:49)
[2023-10-10] MEDS: 0.9% NaCl IVPB Med Flush (250 mL) 15 ML IV (08:51)
[2023-10-10] MEDS: 0.9% NaCl Peripheral Flush Adult/Peds IV ×2 (08:51→11:49)
[2023-10-10] MEDS: Immune Globulin 20 gm Premixed Solution 26 BAG IV (09:01)
== END 2023-10-10 23:59 | disposition home or self-care (01) ==
LOC: MEDOUTP 08:27
PROVIDERS: PCP Family Medicine; Referring Provider Psychiatry & Neurology Neurology; Visit Provider Psychiatry & Neurology Neurology
DX: G25.82 Stiff-man syndrome (principal)
CPT/HCPCS: 96374; J7050; A4216; J1568

== ENCOUNTER 2023-10-11 08:11 | Outpatient (CLI) | payer MEDICARE, MEDICAID, SELFPAY ==
[2023-10-11 08:27] VITALS: BP 132/74; PULSE 78; RESP 16; TEMP 36.4; O2SAT 94
[2023-10-11] MEDS: Acetaminophen 325 MG Tablet 650 MG PO (08:58)
[2023-10-11] MEDS: DiphenhydrAMINE 50 MG/ML Syringe 25 MG IV (08:59)
[2023-10-11] MEDS: 0.9% NaCl Peripheral Flush Adult/Peds IV (08:59)
[2023-10-11] MEDS: 0.9% NaCl IVPB Med Flush (250 mL) 15 ML IV (09:01)
[2023-10-11] MEDS: Immune Globulin 20 gm 20 GM/200 ML VIAL IV (09:20)
[2023-10-11 10:07] VITALS: BP 115/74; PULSE 68; RESP 16; TEMP 36.3; O2SAT 94
[2023-10-11 10:34] VITALS: BP 116/53; PULSE 68; RESP 16; TEMP 36.2
[2023-10-11 11:04] VITALS: BP 116/61; PULSE 62; RESP 16; TEMP 36.2; O2SAT 94
== END 2023-10-11 23:59 | disposition home or self-care (01) ==
LOC: MEDOUTP 08:11
PROVIDERS: PCP Family Medicine; Referring Provider Psychiatry & Neurology Neurology; Visit Provider Psychiatry & Neurology Neurology
DX: G25.82 Stiff-man syndrome (principal)
CPT/HCPCS: 96365; 96366; J7050; A4216; J1568

== ENCOUNTER 2023-11-04 08:00 | Outpatient (CLI) | payer MEDICARE, MEDICAID, SELFPAY ==
[2023-11-04 08:21] VITALS: BP 100/70; PULSE 78; RESP 16; TEMP 36.9; O2SAT 97
[2023-11-04] MEDS: 0.9% NaCl Peripheral Flush Adult/Peds IV ×2 (08:26→11:39)
[2023-11-04] MEDS: Acetaminophen 325 MG Tablet 650 MG PO (08:28)
[2023-11-04] MEDS: 0.9% NaCl IVPB Med Flush (250 mL) 15 ML IV (08:30)
[2023-11-04] MEDS: DiphenhydrAMINE 50 MG/ML Syringe 25 MG IV (08:31)
[2023-11-04] MEDS: Immune Globulin 20 gm 20 GM/200 ML VIAL IV (08:54)
== END 2023-11-04 23:59 | disposition home or self-care (01) ==
LOC: MEDOUTP 08:00
PROVIDERS: PCP Family Medicine; Referring Provider Psychiatry & Neurology Neurology; Visit Provider Psychiatry & Neurology Neurology
DX: G25.82 Stiff-man syndrome (principal)
CPT/HCPCS: 96365; 96366; 96375; J7050; A4216; J1568

== ENCOUNTER 2023-11-05 08:10 | Outpatient (CLI) | payer MEDICARE, MEDICAID, SELFPAY ==
[2023-11-05] MEDS: Acetaminophen 325 MG Tablet 650 MG PO (08:27)
[2023-11-05] MEDS: 0.9% NaCl Peripheral Flush Adult/Peds IV ×2 (08:28→11:45)
[2023-11-05] MEDS: DiphenhydrAMINE 50 MG/ML Syringe 25 MG IV (08:28)
[2023-11-05] MEDS: 0.9% NaCl IVPB Med Flush (250 mL) 15 ML IV (08:33)
[2023-11-05 08:34] VITALS: BP 113/67; PULSE 85; RESP 16; TEMP 36.2; O2SAT 96; BMI 23.7
[2023-11-05] MEDS: Immune Globulin 20 gm 20 GM/200 ML VIAL IV (08:56)
== END 2023-11-05 23:59 | disposition home or self-care (01) ==
LOC: MEDOUTP 08:10
PROVIDERS: PCP Family Medicine; Referring Provider Psychiatry & Neurology Neurology; Visit Provider Psychiatry & Neurology Neurology
DX: G25.82 Stiff-man syndrome (principal)
CPT/HCPCS: 96365; 96366; 96375; A4216; J1568

== ENCOUNTER 2023-11-06 09:40 | Outpatient (CLI) | payer MEDICARE, MEDICAID, SELFPAY ==
[2023-11-06] MEDS: 0.9% NaCl Peripheral Flush Adult/Peds IV ×2 (09:47→13:24)
[2023-11-06] MEDS: 0.9% NaCl IVPB Med Flush (250 mL) 15 ML IV (09:50)
[2023-11-06] MEDS: DiphenhydrAMINE 50 MG/ML Syringe 25 MG IV (09:50)
[2023-11-06] MEDS: Acetaminophen 325 MG Tablet 650 MG PO (09:50)
[2023-11-06 09:57] VITALS: BP 105/60; PULSE 80; RESP 16; TEMP 36.7; O2SAT 94; BMI 23.7
[2023-11-06] MEDS: Immune Globulin 20 gm 20 GM/200 ML VIAL IV (10:24)
== END 2023-11-06 23:59 | disposition home or self-care (01) ==
LOC: MEDOUTP 09:40
PROVIDERS: PCP Family Medicine; Referring Provider Psychiatry & Neurology Neurology; Visit Provider Psychiatry & Neurology Neurology
DX: G25.82 Stiff-man syndrome (principal)
CPT/HCPCS: 96365; 96366; 96375; J7050; A4216; J1568

== ENCOUNTER 2023-11-07 08:28 | Outpatient (CLI) | payer MEDICARE, MEDICAID, SELFPAY ==
[2023-11-07] MEDS: Acetaminophen 325 MG Tablet 650 MG PO (08:39)
[2023-11-07] MEDS: 0.9% NaCl IVPB Med Flush (250 mL) 15 ML IV (08:39)
[2023-11-07] MEDS: 0.9% NaCl Peripheral Flush Adult/Peds IV ×2 (08:39→11:50)
[2023-11-07] MEDS: DiphenhydrAMINE 50 MG/ML Syringe 25 MG IV (08:41)
[2023-11-07 08:48] VITALS: BP 119/53; PULSE 80; RESP 16; TEMP 37.2; O2SAT 95; BMI 23.4
[2023-11-07] MEDS: Immune Globulin 20 gm 20 GM/200 ML VIAL IV (09:12)
== END 2023-11-07 23:59 | disposition home or self-care (01) ==
LOC: MEDOUTP 08:28
PROVIDERS: PCP Family Medicine; Referring Provider Psychiatry & Neurology Neurology; Visit Provider Psychiatry & Neurology Neurology
DX: G25.82 Stiff-man syndrome (principal)
CPT/HCPCS: 96365; 96366; 96361; 96375; J7050; A4216; J1568

== ENCOUNTER 2023-11-08 07:56 | Outpatient (CLI) | payer MEDICARE, MEDICAID, SELFPAY ==
[2023-11-08] MEDS: 0.9% NaCl Peripheral Flush Adult/Peds IV (08:12)
[2023-11-08] MEDS: Acetaminophen 325 MG Tablet 650 MG PO (08:13)
[2023-11-08] MEDS: DiphenhydrAMINE 50 MG/ML Syringe 25 MG IV (08:13)
[2023-11-08 08:16] VITALS: BP 105/76; PULSE 77; RESP 16; TEMP 36.9; O2SAT 93; BMI 23.7
[2023-11-08] MEDS: Immune Globulin 20 gm 20 GM/200 ML VIAL IV (08:43)
== END 2023-11-08 23:59 | disposition home or self-care (01) ==
LOC: MEDOUTP 07:56
PROVIDERS: PCP Family Medicine; Referring Provider Psychiatry & Neurology Neurology; Visit Provider Psychiatry & Neurology Neurology
DX: G25.82 Stiff-man syndrome (principal)
CPT/HCPCS: 96365; 96366; 96375; A4216; J1568

== ENCOUNTER 2023-12-02 08:07 | Outpatient (CLI) | payer MEDICARE, MEDICAID, SELFPAY ==
[2023-12-02] MEDS: 0.9% NaCl Peripheral Flush Adult/Peds IV (08:17)
[2023-12-02] MEDS: Acetaminophen 325 MG Tablet 650 MG PO (08:18)
[2023-12-02] MEDS: DiphenhydrAMINE 50 MG/ML Syringe 25 MG IV (08:20)
[2023-12-02 08:25] VITALS: BP 108/68; PULSE 80; RESP 16; TEMP 35.8; O2SAT 95; BMI 23.3
[2023-12-02] MEDS: Immune Globulin 20 gm 20 GM/200 ML VIAL IV (08:40)
== END 2023-12-02 23:59 | disposition home or self-care (01) ==
LOC: MEDOUTP 08:07
PROVIDERS: PCP Family Medicine; Referring Provider Psychiatry & Neurology Neurology; Visit Provider Psychiatry & Neurology Neurology
DX: G25.82 Stiff-man syndrome (principal)
CPT/HCPCS: 96365; 96366; 96375; A4216; J1568

== ENCOUNTER 2023-12-03 08:30 | Outpatient (CLI) | payer MEDICARE, MEDICAID, SELFPAY ==
[2023-12-03] MEDS: Acetaminophen 325 MG Tablet 650 MG PO (08:46)
[2023-12-03] MEDS: DiphenhydrAMINE 50 MG/ML Syringe 25 MG IV (08:47)
[2023-12-03] MEDS: 0.9% NaCl Peripheral Flush Adult/Peds IV ×2 (08:47→11:51)
[2023-12-03 08:50] VITALS: BP 109/67; PULSE 77; RESP 16; TEMP 36.2; O2SAT 97; BMI 23.3
[2023-12-03] MEDS: Immune Globulin 20 gm 20 GM/200 ML VIAL IV (09:00)
== END 2023-12-03 23:59 | disposition home or self-care (01) ==
LOC: MEDOUTP 08:30
PROVIDERS: PCP Family Medicine; Referring Provider Psychiatry & Neurology Neurology; Visit Provider Psychiatry & Neurology Neurology
DX: G25.82 Stiff-man syndrome (principal)
CPT/HCPCS: 96365; 96366; 96375; A4216; J1568

== ENCOUNTER 2023-12-04 08:27 | Outpatient (CLI) | payer MEDICARE, MEDICAID, SELFPAY ==
[2023-12-04 08:37] VITALS: BP 119/73; PULSE 85; RESP 16; TEMP 36.2; O2SAT 99; BMI 23.3
[2023-12-04] MEDS: 0.9% NaCl Peripheral Flush Adult/Peds IV (08:40)
[2023-12-04] MEDS: Acetaminophen 325 MG Tablet 650 MG PO (08:43)
[2023-12-04] MEDS: DiphenhydrAMINE 50 MG/ML Syringe 25 MG IV (08:44)
[2023-12-04] MEDS: Immune Globulin 20 gm 20 GM/200 ML VIAL IV (09:18)
== END 2023-12-04 23:59 | disposition home or self-care (01) ==
LOC: MEDOUTP 08:27
PROVIDERS: PCP Family Medicine; Referring Provider Psychiatry & Neurology Neurology; Visit Provider Psychiatry & Neurology Neurology
DX: G25.82 Stiff-man syndrome (principal)
CPT/HCPCS: 96365; 96366; 96375; A4216; J1568

== ENCOUNTER 2023-12-05 07:57 | Outpatient (CLI) | payer MEDICARE, MEDICAID, SELFPAY ==
[2023-12-05 08:10] VITALS: BP 115/64; PULSE 83; RESP 16; TEMP 35.8; O2SAT 99; BMI 23.3
[2023-12-05] MEDS: Acetaminophen 325 MG Tablet 650 MG PO (08:12)
[2023-12-05] MEDS: DiphenhydrAMINE 50 MG/ML Syringe 25 MG IV (08:13)
[2023-12-05] MEDS: 0.9% NaCl Peripheral Flush Adult/Peds IV ×2 (08:14→11:55)
[2023-12-05] MEDS: Immune Globulin 20 gm 20 GM/200 ML VIAL IV (08:40)
== END 2023-12-05 23:59 | disposition home or self-care (01) ==
LOC: MEDOUTP 07:58
PROVIDERS: PCP Family Medicine; Referring Provider Psychiatry & Neurology Neurology; Visit Provider Psychiatry & Neurology Neurology
DX: G25.82 Stiff-man syndrome (principal)
CPT/HCPCS: 96374; A4216; J1568

== ENCOUNTER 2023-12-06 07:53 | Outpatient (CLI) | payer MEDICARE, MEDICAID, SELFPAY ==
[2023-12-06 08:05] VITALS: BP 127/80; PULSE 72; RESP 16; TEMP 36.4; O2SAT 96
[2023-12-06] MEDS: Acetaminophen 325 MG Tablet 650 MG PO (08:11)
[2023-12-06] MEDS: 0.9% NaCl Peripheral Flush Adult/Peds IV (08:14)
[2023-12-06] MEDS: DiphenhydrAMINE 50 MG/ML Syringe 25 MG IV (08:14)
[2023-12-06] MEDS: 0.9% Normal Saline (100mL Bag) 100 ML 15 ML IV (08:14)
[2023-12-06] MEDS: Immune Globulin 20 gm 20 GM/200 ML VIAL IV (08:38)
== END 2023-12-06 23:59 | disposition home or self-care (01) ==
LOC: MEDOUTP 07:53
PROVIDERS: PCP Family Medicine; Referring Provider Psychiatry & Neurology Neurology; Visit Provider Psychiatry & Neurology Neurology
DX: G25.82 Stiff-man syndrome (principal)
CPT/HCPCS: 96365; 96366; 96375; A4216; J1568

== ENCOUNTER 2023-12-30 07:52 | Outpatient (CLI) | payer MEDICARE, MEDICAID, SELFPAY ==
[2023-12-30 08:03] VITALS: BP 107/66; PULSE 80; RESP 16; TEMP 35.8; O2SAT 95
[2023-12-30] MEDS: DiphenhydrAMINE 50 MG/ML Syringe 25 MG IV (08:13)
[2023-12-30] MEDS: 0.9% NaCl Peripheral Flush Adult/Peds IV ×2 (08:38→12:06)
[2023-12-30] MEDS: Acetaminophen 325 MG Tablet 650 MG PO (08:39)
[2023-12-30] MEDS: Immune Globulin 20 gm 20 GM/200 ML VIAL IV (09:11)
== END 2023-12-30 23:59 | disposition home or self-care (01) ==
LOC: MEDOUTP 07:53
PROVIDERS: PCP Family Medicine; Referring Provider Psychiatry & Neurology Neurology; Visit Provider Psychiatry & Neurology Neurology
DX: G25.82 Stiff-man syndrome (principal)
CPT/HCPCS: 96365; 96366; A4216; J1568

== ENCOUNTER 2023-12-31 08:39 | Outpatient (CLI) | payer MEDICARE, MEDICAID, SELFPAY ==
[2023-12-31] MEDS: Acetaminophen 325 MG Tablet 650 MG PO (08:50)
[2023-12-31] MEDS: DiphenhydrAMINE 50 MG/ML Syringe 25 MG IV (08:50)
[2023-12-31] MEDS: 0.9% NaCl Peripheral Flush Adult/Peds IV (08:51)
[2023-12-31 08:53] VITALS: BP 137/97; PULSE 76; RESP 16; TEMP 36.2; O2SAT 94; BMI 23.3
[2023-12-31] MEDS: Immune Globulin 20 gm 20 GM/200 ML VIAL IV (09:18)
== END 2023-12-31 23:59 | disposition home or self-care (01) ==
LOC: MEDOUTP 08:39
PROVIDERS: PCP Family Medicine; Referring Provider Psychiatry & Neurology Neurology; Visit Provider Psychiatry & Neurology Neurology
DX: G25.82 Stiff-man syndrome (principal)
CPT/HCPCS: 96365; 96366; 96375; A4216; J1568

== ENCOUNTER 2024-01-01 08:05 | Outpatient (CLI) | payer MEDICARE, MEDICAID, SELFPAY ==
[2024-01-01] MEDS: 0.9% NaCl Peripheral Flush Adult/Peds IV ×2 (08:20→11:37)
[2024-01-01] MEDS: Acetaminophen 325 MG Tablet 650 MG PO (08:20)
[2024-01-01] MEDS: DiphenhydrAMINE 50 MG/ML Syringe 25 MG IV (08:20)
[2024-01-01 08:25] VITALS: BP 138/66; PULSE 79; RESP 16; TEMP 35.9; O2SAT 94
[2024-01-01] MEDS: Immune Globulin 20 gm 20 GM/200 ML VIAL IV (08:50)
== END 2024-01-01 23:59 | disposition home or self-care (01) ==
LOC: MEDOUTP 08:05
PROVIDERS: PCP Family Medicine; Referring Provider Psychiatry & Neurology Neurology; Visit Provider Psychiatry & Neurology Neurology
DX: G25.82 Stiff-man syndrome (principal)
CPT/HCPCS: 96365; 96366; 96375; A4216; J1568

== ENCOUNTER 2024-01-02 07:51 | Outpatient (CLI) | payer MEDICARE, MEDICAID, SELFPAY ==
[2024-01-02] MEDS: Acetaminophen 325 MG Tablet 650 MG PO (08:04)
[2024-01-02] MEDS: DiphenhydrAMINE 50 MG/ML Syringe 25 MG IV (08:04)
[2024-01-02 08:11] VITALS: BP 119/77; PULSE 78; RESP 16; TEMP 35.7; O2SAT 98; BMI 23.3
[2024-01-02] MEDS: 0.9% NaCl Peripheral Flush Adult/Peds IV ×2 (08:11→11:08)
[2024-01-02] MEDS: Immune Globulin 20 gm 20 GM/200 ML VIAL IV (08:25)
[2024-01-02 11:31] VITALS: BP 117/65; PULSE 68; RESP 16; TEMP 36.6; O2SAT 97
== END 2024-01-02 23:59 | disposition home or self-care (01) ==
LOC: MEDOUTP 07:51
PROVIDERS: PCP Family Medicine; Referring Provider Psychiatry & Neurology Neurology; Visit Provider Psychiatry & Neurology Neurology
DX: G25.82 Stiff-man syndrome (principal)
CPT/HCPCS: 96365; 96366; 96375; J7050; A4216; J1568

== ENCOUNTER 2024-01-03 07:49 | Outpatient (CLI) | payer MEDICARE, MEDICAID, SELFPAY ==
[2024-01-03] MEDS: 0.9% NaCl Peripheral Flush Adult/Peds IV (08:09)
[2024-01-03] MEDS: Acetaminophen 325 MG Tablet 650 MG PO (08:09)
[2024-01-03] MEDS: 0.9% Normal Saline (100mL Bag) 100 ML 15 ML IV (08:09)
[2024-01-03] MEDS: DiphenhydrAMINE 50 MG/ML Syringe 25 MG IV (08:10)
[2024-01-03 08:18] VITALS: BP 121/73; PULSE 78; RESP 16; TEMP 35.8; O2SAT 95; BMI 23.3
[2024-01-03] MEDS: Immune Globulin 20 gm 20 GM/200 ML VIAL IV (08:34)
== END 2024-01-03 23:59 | disposition home or self-care (01) ==
LOC: MEDOUTP 07:49
PROVIDERS: PCP Family Medicine; Referring Provider Psychiatry & Neurology Neurology; Visit Provider Psychiatry & Neurology Neurology
DX: G25.82 Stiff-man syndrome (principal)
CPT/HCPCS: 96365; 96366; 96375; A4216; J1568

== ENCOUNTER 2024-01-27 08:13 | Outpatient (CLI) | payer MEDICARE, MEDICAID, SELFPAY ==
[2024-01-27] MEDS: Acetaminophen 325 MG Tablet 650 MG PO (08:50)
[2024-01-27] MEDS: 0.9% NaCl Peripheral Flush Adult/Peds IV ×2 (08:54→12:12)
[2024-01-27] MEDS: DiphenhydrAMINE 50 MG/ML Syringe 25 MG IV (08:55)
[2024-01-27 09:03] VITALS: BP 104/73; PULSE 78; RESP 16; TEMP 36.1; O2SAT 98; BMI 23.4
[2024-01-27] MEDS: Immune Globulin 20 gm 20 GM/200 ML VIAL IV (09:30)
[2024-01-27 12:17] VITALS: BP 98/63; PULSE 75
== END 2024-01-27 23:59 | disposition home or self-care (01) ==
LOC: MEDOUTP 08:13
PROVIDERS: PCP Family Medicine; Referring Provider Psychiatry & Neurology Neurology; Visit Provider Psychiatry & Neurology Neurology
DX: G25.82 Stiff-man syndrome (principal)
CPT/HCPCS: 96365; 96366; 96375; A4216; J1568

== ENCOUNTER 2024-01-28 08:26 | Outpatient (CLI) | payer MEDICARE, MEDICAID, SELFPAY ==
[2024-01-28] MEDS: Acetaminophen 325 MG Tablet 650 MG PO (08:36)
[2024-01-28] MEDS: 0.9% NaCl Peripheral Flush Adult/Peds IV (08:37)
[2024-01-28] MEDS: DiphenhydrAMINE 50 MG/ML Syringe 25 MG IV (08:37)
[2024-01-28] MEDS: 0.9% NaCl IVPB Med Flush (250 mL) 15 ML IV (08:37)
[2024-01-28 08:43] VITALS: BP 101/87; PULSE 84; RESP 16; TEMP 36; O2SAT 97
[2024-01-28] MEDS: Immune Globulin 20 gm 20 GM/200 ML VIAL IV (09:00)
== END 2024-01-28 23:59 | disposition home or self-care (01) ==
LOC: MEDOUTP 08:26
PROVIDERS: PCP Family Medicine; Referring Provider Psychiatry & Neurology Neurology; Visit Provider Psychiatry & Neurology Neurology
DX: G25.82 Stiff-man syndrome (principal)
CPT/HCPCS: 96365; 96366; J7050; A4216; J1568

== ENCOUNTER 2024-01-29 08:20 | Outpatient (CLI) | payer MEDICARE, MEDICAID, SELFPAY ==
[2024-01-29 08:32] VITALS: BP 106/56; PULSE 107; RESP 16; TEMP 36.2; O2SAT 96; BMI 21.7
[2024-01-29] MEDS: 0.9% NaCl Peripheral Flush Adult/Peds IV ×2 (08:35→12:27)
[2024-01-29] MEDS: 0.9% NaCl IVPB Med Flush (250 mL) 15 ML IV (08:35)
[2024-01-29] MEDS: Acetaminophen 325 MG Tablet 650 MG PO (08:40)
[2024-01-29] MEDS: DiphenhydrAMINE 50 MG/ML Syringe 25 MG IV (09:13)
[2024-01-29] MEDS: Immune Globulin 20 gm 20 GM/200 ML VIAL IV (09:36)
== END 2024-01-29 23:59 | disposition home or self-care (01) ==
LOC: MEDOUTP 08:20
PROVIDERS: PCP Family Medicine; Referring Provider Psychiatry & Neurology Neurology; Visit Provider Psychiatry & Neurology Neurology
DX: G25.82 Stiff-man syndrome (principal)
CPT/HCPCS: 96365; 96366; 96375; J7050; A4216; J1568

== ENCOUNTER 2024-01-30 08:15 | Outpatient (CLI) | payer MEDICARE, MEDICAID, SELFPAY ==
[2024-01-30] MEDS: 0.9% NaCl IVPB Med Flush (250 mL) 15 ML IV (08:21)
[2024-01-30] MEDS: Acetaminophen 325 MG Tablet 650 MG PO (08:21)
[2024-01-30] MEDS: 0.9% NaCl Peripheral Flush Adult/Peds IV (08:23)
[2024-01-30] MEDS: DiphenhydrAMINE 50 MG/ML Syringe 25 MG IV (08:27)
[2024-01-30 08:36] VITALS: BP 114/70; PULSE 79; RESP 16; TEMP 36.1; O2SAT 99
[2024-01-30] MEDS: Immune Globulin 20 gm 20 GM/200 ML VIAL IV (08:49)
== END 2024-01-30 23:59 | disposition home or self-care (01) ==
LOC: MEDOUTP 08:15
PROVIDERS: PCP Family Medicine; Referring Provider Psychiatry & Neurology Neurology; Visit Provider Psychiatry & Neurology Neurology
DX: G25.82 Stiff-man syndrome (principal)
CPT/HCPCS: 96365; 96366; 96375; 96372; J7050; A4216; J1568

== ENCOUNTER 2024-01-31 08:30 | Outpatient (CLI) | payer MEDICARE, MEDICAID, SELFPAY ==
[2024-01-31] MEDS: Acetaminophen 325 MG Tablet 650 MG PO (08:46)
[2024-01-31] MEDS: 0.9% NaCl Peripheral Flush Adult/Peds IV ×2 (08:47→12:04)
[2024-01-31] MEDS: DiphenhydrAMINE 50 MG/ML Syringe 25 MG IV (08:47)
[2024-01-31] MEDS: 0.9% NaCl IVPB Med Flush (250 mL) 15 ML IV (08:47)
[2024-01-31 08:55] VITALS: BP 119/69; PULSE 73; RESP 16; TEMP 36.3; O2SAT 98; BMI 23.4
[2024-01-31] MEDS: Immune Globulin 20 gm 20 GM/200 ML VIAL IV (09:18)
[2024-01-31 12:08] VITALS: BP 112/66; PULSE 78; RESP 16; TEMP 36.2; O2SAT 95
== END 2024-01-31 23:59 | disposition home or self-care (01) ==
LOC: MEDOUTP 08:30
PROVIDERS: PCP Family Medicine; Referring Provider Psychiatry & Neurology Neurology; Visit Provider Psychiatry & Neurology Neurology
DX: G25.82 Stiff-man syndrome (principal)
CPT/HCPCS: 96365; 96366; 96375; J7050; A4216; J1568

== ENCOUNTER 2024-02-25 08:18 | Outpatient (CLI) | payer MEDICARE, MEDICAID, SELFPAY ==
[2024-02-25 08:30] VITALS: BP 105/64; PULSE 79; RESP 16; TEMP 35.7; O2SAT 95; BMI 24.6
[2024-02-25] MEDS: 0.9% NaCl Peripheral Flush Adult/Peds IV ×2 (08:38→13:06)
[2024-02-25] MEDS: Acetaminophen 325 MG Tablet 650 MG PO (08:39)
[2024-02-25] MEDS: DiphenhydrAMINE 50 MG/ML Syringe 25 MG IV (08:40)
[2024-02-25] MEDS: Immune Globulin 10 gm 10 GM/100 ML VIAL IV ×2 (09:10→10:47)
[2024-02-25] MEDS: Immune Globulin 5 GM 5 GM/50 ML VIAL IV ×3 (11:52→12:37)
== END 2024-02-25 23:59 | disposition home or self-care (01) ==
LOC: MEDOUTP 08:18
PROVIDERS: PCP Family Medicine; Referring Provider Psychiatry & Neurology Neurology; Visit Provider Psychiatry & Neurology Neurology
DX: G25.82 Stiff-man syndrome (principal)
CPT/HCPCS: 96365; 96366; A4216; J1568

== ENCOUNTER 2024-02-26 07:40 | Outpatient (CLI) | payer MEDICARE, MEDICAID, SELFPAY ==
[2024-02-26] MEDS: DiphenhydrAMINE 50 MG/ML Syringe 25 MG IV (07:57)
[2024-02-26] MEDS: 0.9% NaCl Peripheral Flush Adult/Peds IV ×2 (07:58→12:17)
[2024-02-26] MEDS: Acetaminophen 325 MG Tablet 650 MG PO (07:59)
[2024-02-26] MEDS: 0.9% Normal Saline (100mL Bag) 100 ML 15 ML IV (08:00)
[2024-02-26 08:02] VITALS: BP 101/60; PULSE 60; RESP 14; TEMP 35.7; O2SAT 97
[2024-02-26] MEDS: Immune Globulin 20 gm 20 GM/200 ML VIAL IV (08:19)
[2024-02-26] MEDS: Immune Globulin 10 gm 10 GM/100 ML VIAL IV (11:01)
[2024-02-26] MEDS: Immune Globulin 5 GM 5 GM/50 ML VIAL IV (11:47)
== END 2024-02-26 23:59 | disposition home or self-care (01) ==
LOC: MEDOUTP 07:40
PROVIDERS: PCP Family Medicine; Referring Provider Psychiatry & Neurology Neurology; Visit Provider Psychiatry & Neurology Neurology
DX: G25.82 Stiff-man syndrome (principal)
CPT/HCPCS: 96365; 96366; 96375; A4216; J1568

== ENCOUNTER 2024-02-27 08:01 | Outpatient (CLI) | payer MEDICARE, MEDICAID, SELFPAY ==
[2024-02-27 08:10] VITALS: BP 127/66; PULSE 75; RESP 16; TEMP 35.9; O2SAT 95
[2024-02-27] MEDS: Acetaminophen 325 MG Tablet 650 MG PO (08:21)
[2024-02-27] MEDS: 0.9% NaCl Peripheral Flush Adult/Peds IV (08:21)
[2024-02-27] MEDS: DiphenhydrAMINE 50 MG/ML Syringe 25 MG IV (08:22)
[2024-02-27 08:31] VITALS: BMI 23.4
[2024-02-27] MEDS: Immune Globulin 20 gm 20 GM/200 ML VIAL IV (09:00)
[2024-02-27] MEDS: Immune Globulin 10 gm 10 GM/100 ML VIAL IV (11:39)
[2024-02-27] MEDS: Immune Globulin 5 GM 5 GM/50 ML VIAL IV (12:23)
[2024-02-27 12:47] VITALS: BP 104/67; PULSE 79; RESP 16; TEMP 35.7; O2SAT 94
== END 2024-02-27 23:59 | disposition home or self-care (01) ==
LOC: MEDOUTP 08:01
PROVIDERS: PCP Family Medicine; Referring Provider Psychiatry & Neurology Neurology; Visit Provider Psychiatry & Neurology Neurology
DX: G25.82 Stiff-man syndrome (principal)
CPT/HCPCS: 96365; 96366; 96375; A4216; J1568

== ENCOUNTER 2024-03-24 07:46 | Outpatient (CLI) | payer MEDICARE, MEDICAID, SELFPAY ==
[2024-03-24] MEDS: 0.9% NaCl Peripheral Flush Adult/Peds IV ×2 (08:04→12:41)
[2024-03-24] MEDS: Acetaminophen 325 MG Tablet 650 MG PO (08:14)
[2024-03-24] MEDS: DiphenhydrAMINE 50 MG/ML Syringe 25 MG IV (08:16)
[2024-03-24 08:21] VITALS: BP 103/63; PULSE 82; RESP 16; TEMP 36.3; O2SAT 93; BMI 24.4
[2024-03-24] MEDS: 0.9% NaCl IVPB Med Flush (250 mL) 15 ML IV (08:24)
[2024-03-24] MEDS: Immune Globulin 20 gm 20 GM/200 ML VIAL IV (08:35)
[2024-03-24] MEDS: Immune Globulin 10 gm 10 GM/100 ML VIAL IV (11:23)
[2024-03-24] MEDS: Immune Globulin 5 GM 5 GM/50 ML VIAL IV (12:13)
== END 2024-03-24 23:59 | disposition home or self-care (01) ==
LOC: MEDOUTP 07:46
PROVIDERS: PCP Family Medicine; Referring Provider Psychiatry & Neurology Neurology; Visit Provider Psychiatry & Neurology Neurology
DX: G25.82 Stiff-man syndrome (principal)
CPT/HCPCS: 96365; 96366; 96375; J7050; A4216; J1568

== ENCOUNTER 2024-03-25 08:12 | Outpatient (CLI) | payer MEDICARE, MEDICAID, SELFPAY ==
[2024-03-25 08:18] VITALS: BP 104/65; PULSE 79; RESP 16; TEMP 36.3; O2SAT 94
[2024-03-25] MEDS: DiphenhydrAMINE 50 MG/ML Syringe 25 MG IV (08:35)
[2024-03-25] MEDS: 0.9% NaCl Peripheral Flush Adult/Peds IV ×2 (08:35→12:58)
[2024-03-25] MEDS: Acetaminophen 325 MG Tablet 650 MG PO (08:44)
[2024-03-25] MEDS: Immune Globulin 20 gm 20 GM/200 ML VIAL IV (09:06)
[2024-03-25] MEDS: Immune Globulin 10 gm 10 GM/100 ML VIAL IV (11:47)
[2024-03-25] MEDS: Immune Globulin 5 GM 5 GM/50 ML VIAL IV (12:28)
== END 2024-03-25 23:59 | disposition home or self-care (01) ==
LOC: MEDOUTP 08:12
PROVIDERS: PCP Family Medicine; Referring Provider Psychiatry & Neurology Neurology; Visit Provider Psychiatry & Neurology Neurology
DX: G25.82 Stiff-man syndrome (principal)
CPT/HCPCS: 96365; 96366; 96375; J7050; A4216; J1568

== ENCOUNTER 2024-03-26 08:14 | Outpatient (CLI) | payer MEDICARE, MEDICAID, SELFPAY ==
[2024-03-26 08:30] VITALS: BP 123/73; PULSE 72; RESP 16; TEMP 36.1; O2SAT 95; BMI 23.4
[2024-03-26] MEDS: Acetaminophen 325 MG Tablet 650 MG PO (08:48)
[2024-03-26] MEDS: DiphenhydrAMINE 50 MG/ML Syringe 25 MG IV (09:04)
[2024-03-26] MEDS: 0.9% NaCl Peripheral Flush Adult/Peds IV ×2 (09:05→09:08)
[2024-03-26] MEDS: Immune Globulin 20 gm 20 GM/200 ML VIAL IV (09:22)
[2024-03-26] MEDS: Immune Globulin 10 gm 10 GM/100 ML VIAL IV (11:55)
[2024-03-26] MEDS: Immune Globulin 5 GM 5 GM/50 ML VIAL IV (12:44)
== END 2024-03-26 23:59 | disposition home or self-care (01) ==
LOC: MEDOUTP 08:14
PROVIDERS: PCP Family Medicine; Referring Provider Psychiatry & Neurology Neurology; Visit Provider Psychiatry & Neurology Neurology
DX: G25.82 Stiff-man syndrome (principal)
CPT/HCPCS: 96365; 96366; 96375; A4216; J1568

== ENCOUNTER 2024-04-21 07:46 | Outpatient (CLI) | payer MEDICARE, MEDICAID, SELFPAY ==
[2024-04-21 08:25] VITALS: BP 104/57; PULSE 77; RESP 16; TEMP 35.8; O2SAT 94; BMI 24.4
[2024-04-21] MEDS: Acetaminophen 325 MG Tablet 650 MG PO (08:35)
[2024-04-21] MEDS: DiphenhydrAMINE 50 MG/ML Syringe 25 MG IV (08:36)
[2024-04-21] MEDS: 0.9% NaCl Peripheral Flush Adult/Peds IV ×2 (09:00→13:35)
[2024-04-21] MEDS: Immune Globulin 20 gm 20 GM/200 ML VIAL IV (09:00)
[2024-04-21] MEDS: Immune Globulin 10 gm 10 GM/100 ML VIAL IV (12:10)
[2024-04-21] MEDS: Immune Globulin 5 GM 5 GM/50 ML VIAL IV (12:59)
== END 2024-04-21 23:59 | disposition home or self-care (01) ==
LOC: MEDOUTP 07:46
PROVIDERS: PCP Family Medicine; Referring Provider Psychiatry & Neurology Neurology; Visit Provider Psychiatry & Neurology Neurology
DX: G25.82 Stiff-man syndrome (principal)
CPT/HCPCS: 96365; 96366; 96375; A4216; J1568

== ENCOUNTER 2024-04-22 08:04 | Outpatient (CLI) | payer MEDICARE, MEDICAID, SELFPAY ==
[2024-04-22] MEDS: 0.9% NaCl Peripheral Flush Adult/Peds IV ×2 (08:18→12:25)
[2024-04-22] MEDS: Acetaminophen 325 MG Tablet 650 MG PO (08:19)
[2024-04-22] MEDS: DiphenhydrAMINE 50 MG/ML Syringe 25 MG IV (08:19)
[2024-04-22 08:27] VITALS: BP 115/68; PULSE 72; RESP 16; TEMP 36.2; O2SAT 97; BMI 24.5
[2024-04-22] MEDS: 0.9% NaCl IVPB Med Flush (250 mL) 15 ML IV (08:27)
[2024-04-22] MEDS: Immune Globulin 20 gm 20 GM/200 ML VIAL IV (08:39)
[2024-04-22] MEDS: Immune Globulin 10 gm 10 GM/100 ML VIAL IV (11:17)
[2024-04-22] MEDS: Immune Globulin 5 GM 5 GM/50 ML VIAL IV (11:58)
== END 2024-04-22 23:59 | disposition home or self-care (01) ==
LOC: MEDOUTP 08:04
PROVIDERS: PCP Family Medicine; Referring Provider Psychiatry & Neurology Neurology; Visit Provider Psychiatry & Neurology Neurology
DX: G25.82 Stiff-man syndrome (principal)
CPT/HCPCS: 96365; 96366; 96375; A4216; J1568

== ENCOUNTER 2024-04-23 07:55 | Outpatient (CLI) | payer MEDICARE, MEDICAID, SELFPAY ==
[2024-04-23] MEDS: 0.9% NaCl IVPB Med Flush (250 mL) 15 ML IV (08:21)
[2024-04-23] MEDS: Acetaminophen 325 MG Tablet 650 MG PO (08:21)
[2024-04-23] MEDS: 0.9% NaCl Peripheral Flush Adult/Peds IV (08:21)
[2024-04-23 08:22] VITALS: BP 117/71; PULSE 76; RESP 16; TEMP 36.1; O2SAT 95; BMI 24.5
[2024-04-23] MEDS: DiphenhydrAMINE 50 MG/ML Syringe 25 MG IV (08:28)
[2024-04-23] MEDS: Immune Globulin 20 gm 20 GM/200 ML VIAL IV (08:52)
[2024-04-23] MEDS: Immune Globulin 10 gm 10 GM/100 ML VIAL IV (11:29)
[2024-04-23] MEDS: Immune Globulin 5 GM 5 GM/50 ML VIAL IV (12:20)
== END 2024-04-23 23:59 | disposition home or self-care (01) ==
LOC: MEDOUTP 07:57
PROVIDERS: PCP Family Medicine; Referring Provider Psychiatry & Neurology Neurology; Visit Provider Psychiatry & Neurology Neurology
DX: G25.82 Stiff-man syndrome (principal)
CPT/HCPCS: 96365; 96366; 96375; A4216; J1568

== ENCOUNTER 2024-05-19 08:14 | Outpatient (CLI) | payer MEDICARE, MEDICAID, SELFPAY ==
[2024-05-19 08:26] VITALS: BP 114/79; PULSE 88; RESP 16; TEMP 37; O2SAT 96; BMI 25.0
[2024-05-19] MEDS: Acetaminophen 325 MG Tablet 650 MG PO (08:33)
[2024-05-19] MEDS: DiphenhydrAMINE 50 MG/ML Syringe 25 MG IV (08:43)
[2024-05-19] MEDS: 0.9% NaCl Peripheral Flush Adult/Peds IV ×2 (08:44→13:07)
[2024-05-19] MEDS: 0.9% Normal Saline (100mL Bag) 100 ML 15 ML IV (08:44)
[2024-05-19] MEDS: Immune Globulin 20 gm 20 GM/200 ML VIAL IV (09:24)
[2024-05-19] MEDS: Immune Globulin 10 gm 10 GM/100 ML VIAL IV (12:00)
[2024-05-19] MEDS: Immune Globulin 5 GM 5 GM/50 ML VIAL IV (12:42)
== END 2024-05-19 23:59 | disposition home or self-care (01) ==
LOC: MEDOUTP 08:15
PROVIDERS: PCP Family Medicine; Referring Provider Psychiatry & Neurology Neurology; Visit Provider Psychiatry & Neurology Neurology
DX: G25.82 Stiff-man syndrome (principal)
CPT/HCPCS: 96365; 96366 ×4; A4216; J1568

== ENCOUNTER 2024-05-21 08:12 | Outpatient (CLI) | payer MEDICARE, MEDICAID, SELFPAY ==
[2024-05-21] MEDS: Acetaminophen 325 MG Tablet 650 MG PO (08:27)
[2024-05-21] MEDS: DiphenhydrAMINE 50 MG/ML Syringe 25 MG IV (08:28)
[2024-05-21 08:39] VITALS: BP 105/60; PULSE 74; RESP 16; TEMP 36.1; O2SAT 96
[2024-05-21] MEDS: 0.9% NaCl Peripheral Flush Adult/Peds IV ×2 (08:42→12:47)
[2024-05-21] MEDS: 0.9% Normal Saline (100mL Bag) 100 ML 15 ML IV (08:42)
[2024-05-21] MEDS: Immune Globulin 20 gm 20 GM/200 ML VIAL IV (08:48)
[2024-05-21] MEDS: Immune Globulin 10 gm 10 GM/100 ML VIAL IV (11:29)
[2024-05-21] MEDS: Immune Globulin 5 GM 5 GM/50 ML VIAL IV (12:16)
== END 2024-05-21 23:59 | disposition home or self-care (01) ==
LOC: MEDOUTP 08:13
PROVIDERS: PCP Family Medicine; Referring Provider Psychiatry & Neurology Neurology; Visit Provider Psychiatry & Neurology Neurology
DX: G25.82 Stiff-man syndrome (principal)
CPT/HCPCS: 96365; 96366; 96375; A4216; J1568

== ENCOUNTER 2024-05-22 08:57 | Outpatient (CLI) | payer MEDICARE, MEDICAID, SELFPAY ==
[2024-05-22 09:00] VITALS: BP 112/84; PULSE 65; RESP 16; TEMP 36.2; O2SAT 96
[2024-05-22] MEDS: Acetaminophen 325 MG Tablet 650 MG PO (09:04)
[2024-05-22] MEDS: 0.9% NaCl Peripheral Flush Adult/Peds IV (09:05)
[2024-05-22] MEDS: DiphenhydrAMINE 50 MG/ML Syringe 25 MG IV (09:06)
[2024-05-22] MEDS: Immune Globulin 20 gm 20 GM/200 ML VIAL IV (09:36)
[2024-05-22] MEDS: Immune Globulin 10 gm 10 GM/100 ML VIAL IV (12:40)
[2024-05-22] MEDS: Immune Globulin 5 GM 5 GM/50 ML VIAL IV (13:23)
== END 2024-05-22 23:59 | disposition home or self-care (01) ==
LOC: MEDOUTP 08:57
PROVIDERS: PCP Family Medicine; Referring Provider Psychiatry & Neurology Neurology; Visit Provider Psychiatry & Neurology Neurology
DX: G25.82 Stiff-man syndrome (principal)
CPT/HCPCS: 96365; 96366; 96375; A4216; J1568

== ENCOUNTER 2024-06-16 08:12 | Outpatient (CLI) | payer MEDICARE, MEDICAID, SELFPAY ==
[2024-06-16 08:20] VITALS: BP 110/68; PULSE 82; RESP 16; TEMP 36.4; O2SAT 95; BMI 23.4
[2024-06-16] MEDS: Acetaminophen 325 MG Tablet 650 MG PO (08:34)
[2024-06-16] MEDS: 0.9% NaCl Peripheral Flush Adult/Peds IV ×2 (08:35→12:34)
[2024-06-16] MEDS: 0.9% Normal Saline (100mL Bag) 100 ML 15 ML IV (08:35)
[2024-06-16] MEDS: DiphenhydrAMINE 50 MG/ML Syringe 25 MG IV (08:36)
[2024-06-16] MEDS: Immune Globulin 20 gm 20 GM/200 ML VIAL IV (08:55)
[2024-06-16] MEDS: Immune Globulin 10 gm 10 GM/100 ML VIAL IV (11:30)
[2024-06-16] MEDS: Immune Globulin 5 GM 5 GM/50 ML VIAL IV (12:10)
== END 2024-06-16 23:59 | disposition home or self-care (01) ==
LOC: MEDOUTP 08:12
PROVIDERS: PCP Family Medicine; Referring Provider Psychiatry & Neurology Neurology; Visit Provider Psychiatry & Neurology Neurology
DX: G25.82 Stiff-man syndrome (principal)
CPT/HCPCS: 96365; 96366; 96375; A4216; J1568

== ENCOUNTER 2024-06-17 08:31 | Outpatient (CLI) | payer MEDICARE, MEDICAID, SELFPAY ==
[2024-06-17 08:43] VITALS: BP 108/62; PULSE 78; RESP 16; TEMP 35.9; O2SAT 92; BMI 24.3
[2024-06-17] MEDS: 0.9% NaCl Peripheral Flush Adult/Peds IV ×2 (08:48→12:47)
[2024-06-17] MEDS: Acetaminophen 325 MG Tablet 650 MG PO (08:49)
[2024-06-17] MEDS: DiphenhydrAMINE 50 MG/ML Syringe 25 MG IV (08:49)
[2024-06-17] MEDS: 0.9% Normal Saline (100mL Bag) 100 ML 15 ML IV (09:00)
[2024-06-17] MEDS: Immune Globulin 20 gm 20 GM/200 ML VIAL IV (09:08)
[2024-06-17] MEDS: Immune Globulin 10 gm 10 GM/100 ML VIAL IV (11:43)
[2024-06-17] MEDS: Immune Globulin 5 GM 5 GM/50 ML VIAL IV (12:23)
== END 2024-06-17 23:59 | disposition home or self-care (01) ==
LOC: MEDOUTP 08:31
PROVIDERS: PCP Family Medicine; Referring Provider Psychiatry & Neurology Neurology; Visit Provider Psychiatry & Neurology Neurology
DX: G25.82 Stiff-man syndrome (principal)
CPT/HCPCS: 96365; 96366; 96375; A4216; J1568

== ENCOUNTER 2024-06-18 08:14 | Outpatient (CLI) | payer MEDICARE, MEDICAID, SELFPAY ==
[2024-06-18 08:30] VITALS: BP 114/61; PULSE 71; RESP 16; TEMP 36.1; O2SAT 95
[2024-06-18] MEDS: Acetaminophen 325 MG Tablet 650 MG PO (08:35)
[2024-06-18] MEDS: DiphenhydrAMINE 50 MG/ML Syringe 25 MG IV (08:55)
[2024-06-18] MEDS: Immune Globulin 20 gm 20 GM/200 ML VIAL IV (09:15)
[2024-06-18] MEDS: Immune Globulin 10 gm 10 GM/100 ML VIAL IV (11:48)
[2024-06-18] MEDS: Immune Globulin 5 GM 5 GM/50 ML VIAL IV (12:42)
== END 2024-06-18 23:59 | disposition home or self-care (01) ==
LOC: MEDOUTP 08:14
PROVIDERS: PCP Family Medicine; Referring Provider Psychiatry & Neurology Neurology; Visit Provider Psychiatry & Neurology Neurology
DX: G25.82 Stiff-man syndrome (principal)
CPT/HCPCS: 96365; 96366; 96375; A4216; J1568

== ENCOUNTER 2024-07-14 08:15 | Outpatient (CLI) | payer MEDICARE, MEDICAID, SELFPAY ==
[2024-07-14 08:22] VITALS: BP 102/70; PULSE 83; RESP 16; TEMP 36.2; O2SAT 95; BMI 24.3
[2024-07-14] MEDS: Acetaminophen 325 MG Tablet 650 MG PO (08:31)
[2024-07-14] MEDS: DiphenhydrAMINE 50 MG/ML Syringe 25 MG IV (08:31)
[2024-07-14] MEDS: Immune Globulin 20 gm 20 GM/200 ML VIAL IV (08:54)
[2024-07-14] MEDS: Immune Globulin 10 gm 10 GM/100 ML VIAL IV (11:30)
[2024-07-14] MEDS: Immune Globulin 5 GM 5 GM/50 ML VIAL IV (12:19)
== END 2024-07-14 23:59 | disposition home or self-care (01) ==
LOC: MEDOUTP 08:15
PROVIDERS: PCP Family Medicine; Referring Provider Psychiatry & Neurology Neurology; Visit Provider Psychiatry & Neurology Neurology
DX: G25.82 Stiff-man syndrome (principal)
CPT/HCPCS: 96365; 96366; 96375; A4216; J1568

== ENCOUNTER 2024-07-15 08:23 | Outpatient (CLI) | payer MEDICARE, MEDICAID, SELFPAY ==
[2024-07-15 08:35] VITALS: BP 110/66; PULSE 81; RESP 16; TEMP 36.6; O2SAT 95; BMI 24.3
[2024-07-15] MEDS: DiphenhydrAMINE 50 MG/ML Syringe 25 MG IV (08:40)
[2024-07-15] MEDS: Acetaminophen 325 MG Tablet 650 MG PO (08:59)
[2024-07-15] MEDS: Immune Globulin 20 gm 20 GM/200 ML VIAL IV (09:19)
[2024-07-15] MEDS: Immune Globulin 10 gm 10 GM/100 ML VIAL IV (11:49)
[2024-07-15] MEDS: Immune Globulin 5 GM 5 GM/50 ML VIAL IV (12:34)
[2024-07-15 13:02] VITALS: BP 108/65; PULSE 75; TEMP 35.8
== END 2024-07-15 23:59 | disposition home or self-care (01) ==
LOC: MEDOUTP 08:23
PROVIDERS: PCP Family Medicine; Referring Provider Psychiatry & Neurology Neurology; Visit Provider Psychiatry & Neurology Neurology
DX: G25.82 Stiff-man syndrome (principal)
CPT/HCPCS: 96365; 96366; 96375; A4216; J1568

== ENCOUNTER 2024-07-16 08:19 | Outpatient (CLI) | payer MEDICARE, MEDICAID, SELFPAY ==
[2024-07-16] MEDS: DiphenhydrAMINE 50 MG/ML Syringe 25 MG IV (08:32)
[2024-07-16] MEDS: Acetaminophen 325 MG Tablet 650 MG PO (08:37)
[2024-07-16 08:39] VITALS: BP 133/71; PULSE 80; RESP 16; TEMP 35.9; O2SAT 96; BMI 24.3
[2024-07-16] MEDS: 0.9% NaCl Peripheral Flush Adult/Peds IV ×2 (08:40→12:09)
[2024-07-16] MEDS: 0.9% Normal Saline (100mL Bag) 100 ML 15 ML IV (08:41)
[2024-07-16] MEDS: Immune Globulin 20 gm 20 GM/200 ML VIAL IV (09:02)
[2024-07-16] MEDS: Immune Globulin 10 gm 10 GM/100 ML VIAL IV (11:35)
[2024-07-16] MEDS: Immune Globulin 5 GM 5 GM/50 ML VIAL IV (12:40)
== END 2024-07-16 23:59 | disposition home or self-care (01) ==
LOC: MEDOUTP 08:20
PROVIDERS: PCP Family Medicine; Referring Provider Psychiatry & Neurology Neurology; Visit Provider Psychiatry & Neurology Neurology
DX: G25.82 Stiff-man syndrome (principal)
CPT/HCPCS: 96365; 96366; 96375; A4216; J1568

== ENCOUNTER 2024-08-11 07:52 | Outpatient (CLI) | payer MEDICARE, MEDICAID, SELFPAY ==
[2024-08-11 08:01] VITALS: BP 116/73; PULSE 83; RESP 16; TEMP 36; O2SAT 94; BMI 24.9
[2024-08-11] MEDS: Acetaminophen 325 MG Tablet 650 MG PO (08:03)
[2024-08-11] MEDS: 0.9% NaCl Peripheral Flush Adult IV ×2 (08:04→12:23)
[2024-08-11] MEDS: 0.9% NaCl IVPB Med Flush (100mL) 15 ML IV (08:04)
[2024-08-11] MEDS: DiphenhydrAMINE 50 MG/ML Syringe 25 MG IV (08:16)
[2024-08-11] MEDS: Immune Globulin 20 gm 20 GM/200 ML VIAL IV (08:35)
[2024-08-11] MEDS: Immune Globulin 10 gm 10 GM/100 ML VIAL IV (11:14)
[2024-08-11] MEDS: Immune Globulin 5 GM 5 GM/50 ML VIAL IV (11:54)
== END 2024-08-11 23:59 | disposition home or self-care (01) ==
LOC: MEDOUTP 07:53
PROVIDERS: PCP Family Medicine; Referring Provider Psychiatry & Neurology Neurology; Visit Provider Psychiatry & Neurology Neurology
DX: G25.82 Stiff-man syndrome (principal)
CPT/HCPCS: 96365; 96366; 96375; A4216; J1568

== ENCOUNTER 2024-08-12 07:58 | Outpatient (CLI) | payer MEDICARE, MEDICAID, SELFPAY ==
[2024-08-12 08:09] VITALS: BP 104/59; PULSE 79; RESP 16; TEMP 36; O2SAT 95; BMI 24.9
[2024-08-12] MEDS: 0.9% NaCl Peripheral Flush Adult IV (08:10)
[2024-08-12] MEDS: Acetaminophen 325 MG Tablet 650 MG PO (08:15)
[2024-08-12] MEDS: DiphenhydrAMINE 50 MG/ML Syringe 25 MG IV (08:16)
[2024-08-12] MEDS: 0.9% NaCl IVPB Med Flush (100mL) 15 ML IV (08:17)
[2024-08-12] MEDS: Immune Globulin 20 gm 20 GM/200 ML VIAL IV (08:38)
[2024-08-12] MEDS: Immune Globulin 10 gm 10 GM/100 ML VIAL IV (11:06)
[2024-08-12] MEDS: Immune Globulin 5 GM 5 GM/50 ML VIAL IV (11:49)
== END 2024-08-12 23:59 | disposition home or self-care (01) ==
LOC: MEDOUTP 07:58
PROVIDERS: PCP Family Medicine; Referring Provider Psychiatry & Neurology Neurology; Visit Provider Psychiatry & Neurology Neurology
DX: G25.82 Stiff-man syndrome (principal)
CPT/HCPCS: 96365; 96366; 96375; A4216; J1568

== ENCOUNTER 2024-08-13 09:53 | Outpatient (CLI) | payer MEDICARE, MEDICAID, SELFPAY ==
[2024-08-13] MEDS: Acetaminophen 325 MG Tablet 650 MG PO (10:07)
[2024-08-13] MEDS: 0.9% NaCl IVPB Med Flush (100mL) 15 ML IV (10:09)
[2024-08-13] MEDS: 0.9% NaCl Peripheral Flush Adult IV (10:09)
[2024-08-13] MEDS: DiphenhydrAMINE 50 MG/ML Syringe 25 MG IV (10:09)
[2024-08-13 10:15] VITALS: BP 121/72; PULSE 73; RESP 16; TEMP 35.9; O2SAT 95; BMI 24.9
[2024-08-13] MEDS: Immune Globulin 20 gm 20 GM/200 ML VIAL IV (10:29)
[2024-08-13] MEDS: Immune Globulin 10 gm 10 GM/100 ML VIAL IV (13:15)
[2024-08-13] MEDS: Immune Globulin 5 GM 5 GM/50 ML VIAL IV (13:52)
== END 2024-08-13 23:59 | disposition home or self-care (01) ==
LOC: MEDOUTP 09:53
PROVIDERS: PCP Family Medicine; Referring Provider Psychiatry & Neurology Neurology; Visit Provider Psychiatry & Neurology Neurology
DX: G25.82 Stiff-man syndrome (principal)
CPT/HCPCS: 96365; 96366; 96375; A4216; J1568

== ENCOUNTER 2024-09-08 08:20 | Outpatient (CLI) | payer MEDICARE, MEDICAID, SELFPAY ==
[2024-09-08 08:33] VITALS: BP 126/75; PULSE 80; RESP 16; TEMP 35.8; O2SAT 93; BMI 24.7
[2024-09-08] MEDS: 0.9% NaCl Peripheral Flush Adult IV ×2 (08:36→12:44)
[2024-09-08] MEDS: DiphenhydrAMINE 50 MG/ML Syringe 25 MG IV (08:36)
[2024-09-08] MEDS: 0.9% NaCl IVPB Med Flush (100mL) 15 ML IV (08:37)
[2024-09-08] MEDS: Acetaminophen 325 MG Tablet 650 MG PO (08:39)
[2024-09-08] MEDS: Immune Globulin 20 gm 20 GM/200 ML VIAL IV (09:02)
[2024-09-08] MEDS: Immune Globulin 10 gm 10 GM/100 ML VIAL IV (11:43)
[2024-09-08] MEDS: Immune Globulin 5 GM 5 GM/50 ML VIAL IV (12:26)
== END 2024-09-08 23:59 | disposition home or self-care (01) ==
LOC: MEDOUTP 08:20
PROVIDERS: PCP Family Medicine; Referring Provider Psychiatry & Neurology Neurology; Visit Provider Psychiatry & Neurology Neurology
DX: G25.82 Stiff-man syndrome (principal)
CPT/HCPCS: 96365; 96366; 96375; A4216; J1568

== ENCOUNTER 2024-09-09 08:01 | Outpatient (CLI) | payer MEDICARE, MEDICAID, SELFPAY ==
[2024-09-09 08:09] VITALS: BP 108/70; PULSE 76; RESP 16; TEMP 36.3; O2SAT 94; BMI 24.7
[2024-09-09] MEDS: Acetaminophen 325 MG Tablet 650 MG PO (08:14)
[2024-09-09] MEDS: DiphenhydrAMINE 50 MG/ML Syringe 25 MG IV (08:17)
[2024-09-09] MEDS: 0.9% NaCl IVPB Med Flush (100mL) 15 ML IV (08:17)
[2024-09-09] MEDS: 0.9% NaCl Peripheral Flush Adult IV ×2 (08:17→12:19)
[2024-09-09] MEDS: Immune Globulin 20 gm 20 GM/200 ML VIAL IV (08:37)
[2024-09-09] MEDS: Immune Globulin 10 gm 10 GM/100 ML VIAL IV (11:09)
[2024-09-09] MEDS: Immune Globulin 5 GM 5 GM/50 ML VIAL IV (11:55)
[2024-09-09 12:17] VITALS: BP 117/76; PULSE 68; RESP 16; TEMP 35.6
== END 2024-09-09 23:59 | disposition home or self-care (01) ==
LOC: MEDOUTP 08:01
PROVIDERS: PCP Family Medicine; Referring Provider Psychiatry & Neurology Neurology; Visit Provider Psychiatry & Neurology Neurology
DX: G25.82 Stiff-man syndrome (principal)
CPT/HCPCS: 96365; 96366; 96375; A4216; J1568

== ENCOUNTER 2024-09-10 08:10 | Outpatient (CLI) | payer MEDICARE, MEDICAID, SELFPAY ==
[2024-09-10 08:20] VITALS: BP 135/75; PULSE 78; RESP 16; TEMP 36; O2SAT 95; BMI 24.7
[2024-09-10] MEDS: Acetaminophen 325 MG Tablet 650 MG PO (08:20)
[2024-09-10] MEDS: 0.9% NaCl IVPB Med Flush (100mL) 15 ML IV (08:20)
[2024-09-10] MEDS: DiphenhydrAMINE 50 MG/ML Syringe 25 MG IV (08:20)
[2024-09-10] MEDS: 0.9% NaCl Peripheral Flush Adult IV (08:28)
[2024-09-10] MEDS: Immune Globulin 20 gm 20 GM/200 ML VIAL IV (08:50)
[2024-09-10] MEDS: Immune Globulin 10 gm 10 GM/100 ML VIAL IV (11:20)
[2024-09-10] MEDS: Immune Globulin 5 GM 5 GM/50 ML VIAL IV (12:03)
== END 2024-09-10 23:59 | disposition home or self-care (01) ==
LOC: MEDOUTP 08:11
PROVIDERS: PCP Family Medicine; Referring Provider Psychiatry & Neurology Neurology; Visit Provider Psychiatry & Neurology Neurology
DX: G25.82 Stiff-man syndrome (principal)
CPT/HCPCS: 96365; 96366; 96375; A4216; J1568

== ENCOUNTER 2024-10-06 07:37 | Outpatient (CLI) | payer MEDICARE, MEDICAID, SELFPAY ==
[2024-10-06 08:06] VITALS: BP 102/59; PULSE 73; RESP 16; TEMP 36.3; O2SAT 92; BMI 24.4
[2024-10-06] MEDS: Acetaminophen 325 MG Tablet 650 MG PO (08:16)
[2024-10-06] MEDS: DiphenhydrAMINE 50 MG/ML Syringe 25 MG IV (08:21)
[2024-10-06] MEDS: Immune Globulin 20 gm 20 GM/200 ML VIAL IV (08:51)
[2024-10-06] MEDS: Immune Globulin 10 gm 10 GM/100 ML VIAL IV (11:26)
[2024-10-06] MEDS: Immune Globulin 5 GM 5 GM/50 ML VIAL IV (12:05)
== END 2024-10-06 23:59 | disposition home or self-care (01) ==
LOC: MEDOUTP 07:37
PROVIDERS: PCP Family Medicine; Referring Provider Psychiatry & Neurology Neurology; Visit Provider Psychiatry & Neurology Neurology
DX: G25.82 Stiff-man syndrome (principal)
CPT/HCPCS: 96365; 96366; A4216; J1568

== ENCOUNTER 2024-10-07 08:14 | Outpatient (CLI) | payer MEDICARE, MEDICAID, SELFPAY ==
[2024-10-07] MEDS: Acetaminophen 325 MG Tablet 650 MG PO (08:22)
[2024-10-07] MEDS: DiphenhydrAMINE 50 MG/ML Syringe 25 MG IV (08:23)
[2024-10-07] MEDS: 0.9% NaCl Peripheral Flush Adult IV ×2 (08:28→12:12)
[2024-10-07 08:31] VITALS: BP 112/63; PULSE 72; RESP 14; TEMP 36.2; O2SAT 96; BMI 23.3
[2024-10-07] MEDS: Immune Globulin 20 gm 20 GM/200 ML VIAL IV (08:40)
[2024-10-07] MEDS: Immune Globulin 10 gm 10 GM/100 ML VIAL IV (11:13)
[2024-10-07] MEDS: Immune Globulin 5 GM 5 GM/50 ML VIAL IV (11:55)
== END 2024-10-07 23:59 | disposition home or self-care (01) ==
LOC: MEDOUTP 08:14
PROVIDERS: PCP Family Medicine; Referring Provider Psychiatry & Neurology Neurology; Visit Provider Psychiatry & Neurology Neurology
DX: G25.82 Stiff-man syndrome (principal)
CPT/HCPCS: 96365; 96366; 96375; A4216; J1568

== ENCOUNTER 2024-10-08 08:38 | Outpatient (CLI) | payer MEDICARE, MEDICAID, SELFPAY ==
[2024-10-08] MEDS: Acetaminophen 325 MG Tablet 650 MG PO (08:54)
[2024-10-08 08:55] VITALS: BP 116/71; PULSE 68; RESP 16; TEMP 36.2; O2SAT 94
[2024-10-08] MEDS: 0.9% NaCl Peripheral Flush Adult IV (08:57)
[2024-10-08] MEDS: DiphenhydrAMINE 50 MG/ML Syringe 25 MG IV (08:57)
[2024-10-08] MEDS: Immune Globulin 20 gm 20 GM/200 ML VIAL IV (09:29)
[2024-10-08] MEDS: Immune Globulin 10 gm 10 GM/100 ML VIAL IV (12:03)
[2024-10-08] MEDS: Immune Globulin 5 GM 5 GM/50 ML VIAL IV (12:44)
== END 2024-10-08 23:59 | disposition home or self-care (01) ==
LOC: MEDOUTP 08:38
PROVIDERS: PCP Family Medicine; Referring Provider Psychiatry & Neurology Neurology; Visit Provider Psychiatry & Neurology Neurology
DX: G25.82 Stiff-man syndrome (principal)
CPT/HCPCS: 96365; 96366; 96375; A4216; J1568

== ENCOUNTER 2024-11-03 07:54 | Outpatient (CLI) | payer MEDICARE, MEDICAID, SELFPAY ==
[2024-11-03 08:09] VITALS: BP 116/68; PULSE 86; RESP 16; TEMP 36.4; BMI 24.4
[2024-11-03] MEDS: 0.9% NaCl Peripheral Flush Adult IV (08:12)
[2024-11-03] MEDS: 0.9% NaCl IVPB Med Flush (100mL) 15 ML IV (08:13)
[2024-11-03] MEDS: DiphenhydrAMINE 50 MG/ML Syringe 25 MG IV (08:20)
[2024-11-03] MEDS: Acetaminophen 325 MG Tablet 650 MG PO (08:21)
--- OUTSIDE RECORDS SUMMARY | 2024-11-03 08:29 | XMS RPT_ITS | CCD ---
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 Rg Menchaca Primary Care Provider MD Saul Cruz Emergency Provider Dr. Sean Godwin Admit Provider Dr. Eilse Sanchez Attending Provider [phone] Elise Sanchez Other Provider Unavailable Primary Care Provider UnavailRg Bailey MD Primary Care Provider PROVIDER, UNKNOWN Referring Unavailable PROVIDER, UNKNOWN Referring Unavailable Rg Menchaca MD Primary Care Provider Rg Menchaca MD Primary Care Provider Rg Menchaca MD Primary Care Provider WINDY YUEN Attending Unavailable RG MENCHACA Primary Care Unavailable SPOWINDY BATISTA Attending Unavailable RG MENCHACA Primary Care Unavailable RG MENCHACA Primary Care Unavailable SPOWINDY BATISTA Referring Unavailable TRIPP, WINDY Comer Attending Unavailable RG MENCHACA Primary Care Unavailable Dr. Rg Menchaca MD Primary Care Provider Dr. Windy Yuen MD Attending Provider [phone] Tripp ANDRADE, Dr. Norris Referring Provider Dr. Rg Menchaca MD Primary Care Provider Tripp ANDRADE, Dr. Norris Attending Provider Tripp ANDRADE, Dr. Norris Referring Provider [phone] Doyle ANDRADE, Dr. Diez Primary Care Provider Tripp ANDRADE, Dr. Norris Attending Provider Tripp ANDRADE, Dr. Norris Referring Provider [phone] Spolter, Windy Attending Unavailable Menchaca, Rg Primary Care Unavailable Spolter, Windy Referring Unavailable Spolter, Windy Attending Unavailable Menchaca, Rg Primary Care Unavailable Spolter, Windy Referring Unavailable Spolter, Windy Referring Unavailable Spolter, Windy Attending Unavailable Menchaca, Rg Primary Care Unavailable Spolter, Windy Attending Unavailable Menchaca, Rg Primary Care Unavailable Spolter, Windy Referring Unavailable Spolter, Windy Attending Unavailable Menchaca, Rg Primary Care Unavailable Spolter, Windy Referring Unavailable Spolter, Windy Attending Unavailable Menchaca, Rg Primary Care Unavailable Spolter, Windy Referring Unavailable Spolter, Windy Attending Unavailable Spolter, Windy Referring Unavailable Menchaca, Rg Primary Care Unavailable Spolter, Windy Attending Unavailable Spolter, Windy Referring Unavailable Menchaca, Rg Primary Care Unavailable Spolter, Windy Attending Unavailable Spolter, Windy Referring Unavailable Menchaca, Rg Primary Care Unavailable Spolter, Windy Attending Unavailable Spolter, Windy Referring Unavailable Menchaca, Rg Primary Care Unavailable Spolter, Windy Attending Unavailable Spolter, Windy Referring Unavailable Menchaca, Rg Primary Care Unavailable Spolter, Windy Attending Unavailable Spolter, Windy Referring Unavailable Menchaca, Rg Primary Care Unavailable Spolter, Windy Referring Unavailable Spolter, Windy Attending Unavailable Menchaca, Rg Primary Care Unavailable Spolter, Windy Referring Unavailable Spolter, Windy Attending Unavailable Menchaca, Rg Primary Care Unavailable Spolter, Windy Referring Unavailable Spolter, Windy Attending Unavailable Menchaca, Rg Primary Care Unavailable Spolter, Windy Attending Unavailable Menchaca, Rg Primary Care Unavailable Spolter, Windy Referring Unavailable Spolter, Windy Referring Unavailable Spolter, Windy Attending Unavailable Menchaca, Rg Primary Care Unavailable Spolter, Windy Attending Unavailable Menchaca, Rg Primary Care Unavailable Spolter, Windy Referring Unavailable Spolter, Windy Attending Unavailable Menchaca, Rg Primary Care Unavailable Spolter, Windy Referring Unavailable Spolter, Windy Attending Unavailable Menchaca, Rg Primary Care Unavailable Spolter, Windy Referring Unavailable Spolter, Windy Attending Unavailable Spolter, Windy Referring Unavailable Menchaca, Rg Primary Care Unavailable Spolter, Windy Referring Unavailable Spolter, Windy Attending Unavailable Menchaca, Rg Primary Care Unavailable Spolter, Windy Attending Unavailable Spolter, Windy Referring Unavailable Menchaca, Rg Primary Care Unavailable Spolter, Windy Referring Unavailable Spolter, Windy Attending Unavailable Menchaca, Rg Primary Care Unavailable Spolter, Windy Referring Unavailable Spolter, Windy Attending Unavailable Menchaca, Rg Primary Care Unavailable Spolter, Windy Referring Unavailable Spolter, Windy Attending Unavailable Menchaca, Rg Primary Care Unavailable Spolter, Windy Referring Unavailable Spolter, Windy Attending Unavailable Menchaca, Rg Primary Care Unavailable Spolter, Windy Attending Unavailable Spolter, Windy Referring Unavailable Menchaca, Rg Primary Care Unavailable Spolter, Windy Attending Unavailable Spolter, Windy Referring Unavailable Menchaca, Rg Primary Care Unavailable Spolter, Windy Attending Unavailable Spolter, Windy Referring Unavailable Menchaca, Rg Primary Care Unavailable Spolter, Windy Attending Unavailable Spolter, Windy Referring Unavailable Menchaca, Rg Primary Care Unavailable Spolter, Windy Attending Unavailable Spolter, Windy Referring Unavailable Menchaca, Rg Primary Care Unavailable Spolter, Windy Referring Unavailable Spolter, Windy Attending Unavailable Menchaca, Rg Primary Care Unavailable Spolter, Windy Attending Unavailable Menchaca, Rg Primary Care Unavailable Spolter, Windy Referring Unavailable Spolter, Windy Attending Unavailable Menchaca, Rg Primary Care Unavailable Spolter, Windy Referring Unavailable Spolter, Windy Referring Unavailable Spolter, Windy Attending Unavailable Menchaca, Rg Primary Care Unavailable Spolter, Windy Referring Unavailable Spolter, Windy Attending Unavailable Menchaca, Rg Primary Care Unavailable Spolter, Windy Referring Unavailable Spolter, Windy Attending Unavailable Menchaca, Rg Primary Care Unavailable Spolter, Windy Attending Unavailable Menchaca, Rg Primary Care Unavailable Spolter, Windy Referring Unavailable Spolter, Windy Attending Unavailable Menchaca, Rg Primary Care Unavailable Spolter, Windy Referring Unavailable Spolter, Windy Attending Unavailable Menchaca, Rg Primary Care Unavailable Spolter, Windy Referring Unavailable Spolter, Windy Attending Unavailable Menchaca, Rg Primary Care Unavailable Spolter, Windy Referring Unavailable Spolter, Windy Attending Unavailable Menchaca, Rg Primary Care Unavailable Spolter, Windy Referring Unavailable Spolter, Windy Attending Unavailable Menchaca, Rg Primary Care Unavailable Spolter, Windy Referring Unavailable Spolter, Windy Attending Unavailable Spolter, Windy Referring Unavailable Menchaca, Rg Primary Care Unavailable Spolter, Windy Referring Unavailable Spolter, Windy Attending Unavailable Menchaca, Rg Primary Care Unavailable Spolter, Windy Referring Unavailable Spolter, Windy Attending Unavailable Menchaca, Rg Primary Care Unavailable Spolter, Windy Attending Unavailable Spolter, Windy Referring Unavailable Menchaca, Rg Primary Care Unavailable Spolter, Windy Attending Unavailable Menchaca, Rg Primary Care Unavailable Spolter, Windy Referring Unavailable Spolter, Windy Attending Unavailable Menchaca, Rg Primary Care Unavailable Spolter, Windy Referring Unavailable Medications Current Medications Medication Drug Class(es) Dates Sig (Normalized) Sig (Original) acetaminophen 500 mg oral capsule (20 sources) Start: 09-09-2023 take 2 capsules by mouth every eight hours as needed for pain Acetaminophen 500 mg capsule Active 1000 mg PO EVERY 8 HOURS NEEDED as needed for pain September 09, 2023 12:00am Start: 09-09-2023 take 1000 mg by mout h every eight hours as needed Acetaminophen Active 1000 MG PO EVERY 8 HOURS NEEDED September 09, 2023 12:00am Start: 04-21-2018 End: 11-29-2018 Acetaminophen (Tylenol Extra Strength) 500 MG tablet Discontinued 1000 mg PO NEEDED as needed for Pain April 21, 2018 1:00am November 29, 2018 11:28am baclofen 10 mg oral tablet (20 sources) gamma-Aminobutyric Acid-ergic Agonist Start: 11-27-2018 Baclofen 10 MG tablet Active 15 mg PO THREE TIMES A DAY November 27, 2018 12:00am Start: 11-27-2018 take 15 mg by mouth three times daily Baclofen Active 15 MG PO THREE TIMES A DAY November 27, 2018 12:00am Comment on above: Take 15 mg by mouth three times daily. Blood-Glucose Meter (RELION PRIME METER) misc (17 sources) Start: 01-17-2018 Blood-Glucose Meter (RELION PRIME METER) [facility] [place] Indications: Type 2 diabetes mellitus with complication, with long-term current use of insulin (HCC) 1 Each four times daily. Dx: E11.9. Insulin: yes 1 Each 01/17/2018 Active Start: 01-17-2018 Blood-Glucose Meter (RELION PRIME METER) [facility] [place] Indications: Type 2 diabetes mellitus with complication, with long-term current use of insulin (HCC) 1 Each four times daily. Dx: E11.9. Insulin: yes 1 Each 0 01/17/2018 Active Comment on above: 1 Each four times da sina. Dx: E11.9. Insulin: yes COMPOUNDED PRESCRIPTION (17 sources) Start: 03-05-2018 COMPOUNDED PRESCRIPTION 1 Wheelchair with removable foot rests. ICD 10: R53.1, M79.671, M21.6X1 1 Each 03/05/2018 Active Start: 03-05-2018 COMPOUNDED PRE SCRIPTION 1 Wheelchair with removable foot rests. ICD 10: R53.1, M79.671, M21.6X1 1 Each 0 03/05/2018 Active Comment on above: 1 Wheelchair with re movable foot rests. ICD 10: R53.1, M79.671, M21.6X1 FREESTYLE JEREMIAH 2 SENSOR kit (10 sources) Start: 04-24-2023 FREESTYLE JEREMIAH 2 SENSOR kit 04/24/2023 Active Start: 04-24-2023 FREESTYLE LIBR E 2 SENSOR kit glucagon (rdna) 1 mg injection (20 sources) Antihypoglycemic Agent Start: 04-28-2022 glucago n (GLUCAGEN) 1 mg/mL injection Inject intramuscularly. 04/28/2022 Active Start: 04-28-2022 Glucagon (Gluc agon Emergency Kit (Human)) 1 mg recon soln Active 1 mg IM NEEDED as needed for Hypoglycemia April 28, 2022 1:00am Start: 04-28-2022 GLUCAGON EMERG ENCY KIT, HUMAN, 1 mg injection 01/23/2023 Active Comment on above: Inject intramuscularly. glucose 0.4 mg/mg oral gel (12 sources) Start: Dextrose (Glutose-15) 40 % gel Active 15 g PO Q15M as needed for hypoglycemia September 09, 2023 12:00am until symptoms of low blood sugar are controlled immune globulin (human) (IgG) 35 g in empty bag Total Volume 350 mL (GAMMAGARD) (3 sources) Start: inject 350 mL intravenously every twenty-four hours immune globulin (human) (IgG) 35 g in empty bag Total Volume 350 mL (GAMMAGARD) Indications: Stiff person syndrome Inject 350 mL intravenously every 24 hours. For three consecutive days. Repeat infusion cycle every month for a total of 6 months (6 total infusion cycles). Premedicate with diphenhydramine 25 mg PO and acetaminophen 650 mg PO. 1050 mL 5 02/05/2024 Active Start: 02-05-2024 End: 02-05-2024 inject 350 mL intravenously every twenty-four hours immune globulin (human) (IgG) 35 g in empty bag Total Volume 350 mL (GAMMAGARD) Indications: Stiff person syndrome Inject 350 mL intravenously every 24 hours. For three consecutive days. Repeat infusion cycle every month for a total of 6 months (6 total infusion cycles). Premedicate with diphenhydramine 25 mg PO and acetaminophen [address] [place]. [address] mL 11 02/05/2024 02/05/2024 Discontinued 3 ml insulin aspart, human 100 unt/ml pen injector (20 sources) Insulin Analog Start: 08-18-2021 Insulin Aspart U-100 (Novolog Flexpen U-100 Insulin) 100 unit/mL (3 mL) Insulin Pen Active 0 sliding scale dose SC BEFORE MEALS AND AT BEDTIME August 18, 2021 12:00am Please contact the information source for Protocol details. Start: 04-21-2018 End: 04-22-2018 Insulin Aspart U-100 (Novolo g Flexpen (Bkc)) 100 UNITS/ML Flexpen Discontinued 0 U SC 3 TIMES DAILY WITH MEALS April 21, 2018 1:00am April 22, 2018 5:06pm Please contact the information source for Protocol details. Start: 01-07-2018 End: 06-12-2022 insulin aspart U-100 (NOVOLO G FLEXPEN U-100 INSULIN) 100 unit/mL inpn Indications: Controlled type 2 diabetes mellitus without complication, with long-term current use of insulin (HCC) 1 unit for 15 g of carbs with meals. 5 Pen 3 01/07/2018 06/12/2022 Discontinued Comment on above: 1 unit for 15 g of c arbs with meals. Sliding scale 151-200, give 1 unit 201-250, give 2 units 251-300, give 3 units 301-350, give 4 units > 350, give 5 units and call provider 3 ml insulin detemir 100 unt/ml pen injector (20 sources) Insulin Analog Start: 04-21-2018 insulin detemir U-100 (LEVEMIR) 100 unit/mL (3 mL) injection pen Insulin Detemir U-100 (Levemir Flextouch U-100 Insuln) 100 UNITS/ML insulin pen Active 29 UNITS SC DAILY April 21, 2018 12:38pm 04/21/2018 Active Start: 04-21-2018 insulin detemi r U-100 (LEVEMIR FLEXTOUCH U-100 INSULIN) 100 unit/mL (3 mL) injection pen Indications: Controlled type 2 diabetes mellitus without complication, with long-term current use of insulin ([facility]) Inject 27 Units subcutaneously every morning. 5 Each 2 06/12/2022 Active Start: 04-21-2018 Insulin Detemi r U-100 (Levemir Flextouch U100 Insulin) 100 UNITS/ML insulin pen Active 24 U SC .qam April 21, 2018 1:00am Start: 04-21-2018 Insulin Detemi r U-100 (Levemir Flextouch U-100 Insuln) 100 UNITS/ML insulin pen Active 29 UNITS SC DAILY April 21, 2018 12:38pm Start: 01-07-2018 End: 06-12-2022 insulin detemir U-100 (LEVEM IR FLEXTOUCH U-100 INSULN) 100 unit/mL (3 mL) inpn injection Indications: Controlled type 2 diabetes mellitus without complication, with long-term current use of insulin ([facility]) Inject 25 Units subcutaneously every morning. 5 Pen 2 01/07/2018 06/12/2022 Discontinued Comment on above: Inject 25 Units subc utaneously every morning. Insulin Detemir U-10 0 (Levemir Flextouch U-100 Insuln) 100 UNITS/ML insulin pen Active 29 UNITS SC DAILY April 21, 2018 12:38pm Inject 27 Units subc utaneously every morning. Insulin Detemir U-100 (Levemir Flextouch U100 Insulin) 100 UNITS/ML insulin pen (5 sources) Start: 04-21-2018 Insulin Detemir U-100 (Levemir Flextouch U100 Insulin) 100 UNITS/ML insulin pen Active 28 UNITS SC .qam April 21, 2018 1:00am levothyroxine sodium 0.075 mg oral tablet (20 sources) l-Thyroxine Start: 04-21-2018 Levothyroxine 75 MCG tablet Active 50 ug PO DAILY April 21, 2018 1:00am CONCHITA. NO GENERIC. Start: 04-21-2018 take 50 ug by mouth once daily Levothyroxine Active 50 MCG PO DAILY April 21, 2018 1:00am CONCHITA. NO GENERIC. Start: 01-07-2018 End: 06-04-2022 levothyroxine (SYNTHROID) 75 mcg tablet DAILY 04/21/2018 06/04/2022 Discontinued Comment on above: Take 1 tablet by finesse th once daily. Take on empty stomach. For Thyroid DAILY lisinopril 5 mg oral tablet (3 sources) Angiotensin Converting Enzyme Inhibitor Start: 2 take 5 mg by mouth once daily Lisinopril Active 5 MG PO DAILY August 18, 2021 8:20pm LORazepam 0.5 mg oral tablet (20 sources) Benzodiazepine Start: 2 take 0.25 mg by mouth once daily Lorazepam (Ativan) 0.5 mg Tablet Active 0.25 mg PO DAILY@0800 August 18, 2021 12:00am Start: 11-27-2018 End: 11-29-2018 take 1 tablet by mouth once daily Lorazepam 1 MG tablet Discontinued 1 mg PO DAILY November 27, 2018 12:00am November 29, 2018 11:28am Comment on above: Take 0.25 mg by mout h every morning. Magnesium Hydroxide (12 sources) Start: 4 take 1 mL by mouth once daily as needed for constipation Magnesium Hydroxide (Milk Of Magnesia) 400 mg/5 mL suspension Active 30 mL PO DAILY as needed for constipation September 09, 2023 12:00am Start: 09-09-2023 take 1 mL by mouth once daily Magnesium Hydroxide (Milk Of Magnesia) 400 mg/5 mL suspension Active 30 ML PO DAILY September 09, 2023 12:00am mineral oil 1000 mg/ml enema (12 sources) Start: 09-09-2023 Mineral Oil (F leet Mineral Oil) enema Active 118 mL RC DAILY as needed for constipation September 09, 2023 12:00am discard any unused portion Start: 09-09-2023 Mineral Oil (F leet Mineral Oil) enema Active 118 ML RC DAILY September 09, 2023 12:00am discard any unused portion ondansetron 4 mg oral tablet (20 sources) Serotonin-3 Receptor Antagonist Start: 05-19-2024 take 1 tablet by mouth every six hours Ondansetron Hcl 4 mg tablet Active 4 mg PO EVERY 6 HOURS May 19, 2024 1:00am Start: 04-29-2022 End: 09-09-2023 take 1 tablet by mouth three times daily as needed for nausea and vomiting Ondansetron 4 mg tablet,disintegrating Discontinued 4 mg PO THREE TIMES A DAY as needed for nausea and vomiting April 29, 2022 5:04am September 09, 2023 9:10am Start: 04-28-2022 End: 09-09-2023 Ondansetron Hcl 4 mg tablet Discontinued 4 mg PO NEEDED as needed for Nausea April 28, 2022 1:00am September 09, 2023 9:10am Start: 04-28-2022 End: 09-09-2023 Ondansetron Hcl Discontinued 4 MG PO NEEDED April 28, 2022 1:00am September 09, 2023 9:10am Comment on above: Take by mouth every 8 hours as needed for nausea/vomiting. Senna Plus (senna-docusate) (13 sources) Start: 04-28-2022 take 8.6-50 mg by mouth once daily Senna Plus (senna-docusate) Active 8.6 - 50 mg PO.IVFORM DAILY April 28, 2022 1:00am Start: 04-28-2022 take 8.6-50 mg by mo uth once daily Senna Plus (senna-docusate) Active 8.6 - 50 MG PO.IVFORM DAILY April 28, 2022 1:00am Start: 04-28-2022 take 8.6-50 mg by mo [facility] once daily Senna Plus (senna-docusate) Active 8.6 - 50 MG PO.IVFORM DAILY April 28, 2022 12:00am SENNA-DOCUSATE SODIUM ORAL (15 sources) SENNA-DOCUSATE S ODIUM ORAL Take by mouth. Active SENNA-DOCUSATE S ODIUM ORAL Take by mouth. 0 Active Comment on above: Take by mouth. Completed/Discontinued Medications Medication Drug Class(es) Dates Sig (Normalized) Sig (Original) aspirin 81 mg chewable tablet (7 sources) Platelet Aggregation Inhibitor, Nonsteroidal Anti-inflammatory Drug Start: 01-07-2018 End: 04-30-2023 take 1 tablet by mouth once daily aspirin 81 mg chewable tablet Indications: Controlled type 2 diabetes mellitus without complication, with long-term current use of insulin (HCC) Take 1 tablet by mouth once daily. 90 tablet 1 01/07/2018 04/30/2023 Discontinued Comment on above: Take 1 tablet by [facility] once daily. bisacodyl 10 mg rectal suppository (20 sources) Stimulant Laxative Start: 08-18-2021 End: 04-30-2023 bisacodyl (DULCOLAX) 10 mg supp Bisacodyl Active 10 MG RC DAILY August 18, 2021 8:41pm 08/18/2021 04/30/2023 Discontinued Start: 08-18-2021 Bisacodyl 10 m g Suppository Active 10 mg RC DAILY as needed for Constipation August 18, 2021 12:00am Comment on above: Bisacodyl Active 10 MG RC DAILY August 18, 2021 8:41pm calcium carbonate 1250 mg chewable tablet (20 sources) Start: 022 End: take 1 tablet by mouth every four hours as needed Calcium Carbonate 500 mg calcium (1,250 mg) Tablet,Chewable Discontinued 500 mg PO Q4H as needed for Indigestion August 18, 2021 12:00am September 09, 2023 9:08am Comment on above: Take by mouth. DULoxetine 60 mg delayed release oral capsule (16 sources) Serotonin and Norepinephrine Reuptake Inhibitor Start: 018 End: take 1 capsule by mouth once daily Duloxetine 60 MG capsule Discontinued 60 mg PO DAILY April 25, 2018 1:00am November 27, 2018 9:43pm immune globulin (human) (IgG) 20 g in empty bag Total Volume 200 mL (GAMMAGARD) (10 sources) Start: End: inject 200 mL intravenously every twenty-four hours immune globulin (human) (IgG) 20 g in empty bag Total Volume 200 mL (GAMMAGARD) Indications: Stiff person syndrome Inject 200 mL intravenously every 24 hours. For fiver consecutive days. Repeat infusion cycle every month for a total of 6 months (6 total infusion cycles). Premedicate with diphenhydramine 25 mg PO and acetaminophen 650 mg PO. 1000 mL 5 07/31/2023 02/05/2024 Discontinued Start: 07-31-2023 End: 07-30-2024 inject 200 mL intravenously every twenty-four hours immune globulin (human) (IgG) 20 g in empty bag Total Volume 200 mL (GAMMAGARD) Indications: Stiff person syndrome Inject 200 mL intravenously every 24 hours. For fiver consecutive days. Repeat infusion cycle every month for a total of 6 months (6 total infusion cycles). Premedicate with diphenhydramine 25 mg PO and acetaminophen 650 mg PO. 1000 mL 5 07/31/2023 07/30/2024 Active Start: 05-23-2023 End: 07-31-2023 inject 200 mL intravenously every twenty-four hours immune globulin (human) (IgG) 20 g in empty bag Total Volume 200 mL (GAMMAGARD) Inject 200 mL intravenously every 24 hours. Repeat infusion cycle every month for a total of 6 months (6 total infusion cycles). Premedicate with diphenhydramine 25 mg PO and acetaminophen 650 mg PO. 1000 mL 0 05/23/2023 07/31/2023 Discontinued Comment on above: Inject 200 mL intrav enously every 24 hours. For fiver consecutive days. Repeat infusion cycle every month for a total of 6 months (6 total infusion cycles). Premedicate with diphenhydramine 25 mg PO and acetaminophen 650 mg PO. Inject 200 mL intrav enously every 24 hours. Repeat infusion cycle every month for a total of 6 months (6 total infusion cycles). Premedicate with diphenhydramine 25 mg PO and acetaminophen 650 mg PO. 3 ml insulin lispro 100 unt/ml pen injector (16 sources) Insulin Analog Start: 11-27-2018 End: 11-29-2018 Insulin Lispro 100 UNIT/ML insulin pen Discontinued 0 U SQ BEFORE MEALS AND AT BEDTIME November 27, 2018 12:00am November 29, 2018 11:28am Please contact the information source for Protocol details. Start: 11-27-2018 End: 11-29-2018 Insulin Lispro Discontinued 0 UNIT SQ BEFORE MEALS AND AT BEDTIME November 27, 2018 12:00am November 29, 2018 11:28am Problems Active Problems Problem Classification Problem Date Documented Date Episodic/Chronic Acquired foot deformities (1 source) Hammer toe; Translations: [Other hammer toe(s) (acquired), right foot] Chronic Acquired foot deformities (1 source) Acquired cavovarus deformity of right foot; Translations: [Other acquired deformities of right foot] Episodic Acute and unspecified renal failure (19 sources) Injury of kidney; Translations: [Acute kidney failure, unspecified] Episodic Anxiety disorders (20 sources) Mixed anxiety and depressive disorder; Translations: [Anxiety disorder, unspecified] Onset: 01-17-2018 01-17-2018 Chronic Diabetes mellitus with complications (20 sources) Hyperglycemia due to diabetes mellitus; Translations: [Type 2 diabetes mellitus with hyperglycemia] Onset: 11-15-2021 Chronic Diabetes mellitus without complication (20 sources) Type 2 diabetes mellitus; Translations: [Type 2 diabetes mellitus without complications] Onset: 02-17-2018 02-17-2018 Chronic Joint disorders and dislocations; trauma-related (16 sources) Subluxation of ankle joint; Translations: [Subluxation of right ankle joint, initial encounter] 11-28-2018 Episodic Malaise and fatigue (16 sources) Asthenia; Translations: [Other malaise] 11-28-2018 Episodic Nausea and vomiting (20 sources) Vomiting; Translations: [Vomiting, unspecified] 05-07-2022 Episodic Osteoporosis (1 source) Osteoporosis; Translations: [Other osteoporosis without current pathological fracture] Chronic Other acquired deformities (17 sources) Contracture of right hip joint; Translations: [Contracture, right hip] Onset: 01-13-2018 01-13-2018 Chronic Other acquired deformities (17 sources) Contracture of left hip joint; Translations: [Contracture, left hip] Onset: 01-13-2018 01-13-2018 Chronic Other circulatory disease (14 sources) Low blood pressure; Translations: [Hypotension, unspecified] 09-07-2021 Episodic Other connective tissue disease (16 sources) Cramp in lower limb; Translations: [Cramp and spasm] 11-28-2018 Episodic Other hereditary and degenerative nervous system conditions (15 sources) Stiff-man syndrome; 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 Other hereditary and degenerative nervous system conditions (3 sources) Stiff-man syndrome; 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 Residual codes; unclassified (1 source) Pain, unspecified; Translations: [Pain] Onset: 04-18-2022 Episodic Residual codes; unclassified (1 source) Pain; Translations: [Pain, unspecified] 04-18-2022 Episodic Spondylosis; intervertebral disc disorders; other back problems (16 sources) Chronic back pain ; Translations: [Dorsalgia, unspecified] 11-28-2018 Episodic Thyroid disorders (20 sources) Hypothyroidism; Translations: [Hypothyroidism, unspecified] Onset: 01-07-2018 Chronic Past or Other Problems Problem Classification Problem Date Documented Da te Episodic/Chronic Other connective tissue disease (17 sources) Pain in right foot; Translations: [Pain in right foot] Onset: 01-13-2018 01-13-2018 Episodic Other non-traumatic joint disorders (18 sources) Hip pain; Translations: [Pain in left hip] Onset: 01-13-2018 01-13-2018 Episodic Other non-traumatic joint disorders (16 sources) Pain in right hip joint; Translations: [Pain in right hip] Onset: 01-13-2018 01-13-2018 Episodic Results Test Name Value Interpretation Reference Range Facility [facility] ROMAIN MCDERMOTT ([id number]) 1940 F Date Time Provider Department 9/19/24 WINDY YUEN [facility] During your visit today, we recorded the following information about you: Kellen Duran LPN 02/06/2024 8:05 AM Signed IVIG order was faxed to Maura at [facility] at [phone] with confirmation. Allergies As of Date: 02/06/2024 (No Known Allergies) Date Reviewed: 02/05/2024 Reviewed by: Shira Hager LPN - Fully Assessed Reason for Visit: Orders [591] Cmt: IVIG Prescriptions as of 02/06/2024 - immune globulin (human) (IgG) 35 g in empty bag Total Volume 350 mL (GAMMAGARD) Inject 350 mL intravenously every 24 hours. For three consecutive days. Repeat infusion cycle every month for a total of 6 months (6 total infusion cycles). Premedicate with diphenhydramine 25 mg PO and acetaminophen 650 mg PO. - glucagon (GLUCAGEN) 1 mg/mL injection Inject intramuscularly. - FREESTYLE JEREMIAH 2 SENSOR kit - GLUCAGON EMERGENCY KIT, HUMAN, 1 mg injection - insulin detemir U-100 (LEVEMIR FLEXTOUCH U-100 INSULIN) 100 unit/mL (3 mL) injection pen Inject 27 Units subcutaneously every morning. - insulin aspart U-100 (NOVOLOG FLEXPEN U-100 INSULIN) 100 unit/mL (3 mL) Sliding scale 151-200, give 1 unit 201-250, give 2 units 251-300, give 3 units 301-350, give 4 units > 350, give 5 units and call provider - SENNA-DOCUSATE SODIUM ORAL Take by mouth. - LORazepam (ATIVAN) 0.5 mg Take 0.25 mg by mouth every morning. - baclofen (LIORESAL) 10 mg tablet Take 15 mg by mouth three times daily. - insulin detemir U-100 (LEVEMIR) 100 unit/mL (3 mL) injection pen Insulin Detemir U-100 (Levemir Flextouch U-100 Insuln) 100 UNITS/ML insulin pen Active 29 UNITS SC DAILY April 21, 2018 12:38pm - COMPOUNDED PRESCRIPTION 1 Wheelchair with removable foot rests. ICD 10: R53.1, M79.671, M21.6X1 - blood sugar diagnostic (RELION PRIME TEST STRIPS) test strip Check blood sugar 4 times daily as intructed. Dx: E11.9. Insulin: yes - Blood-Glucose Meter (RELION PRIME METER) misc 1 Each four times daily. Dx: E11.9. Insulin: yes - levothyroxine (SYNTHROID) 75 mcg tablet Take 1 tablet by mouth once daily. Take on empty stomach. For Thyroid Problem List As Of Date 02/06/2024 Noted Resolved Hypothyroidism, acquired [E03.9] 01/07/2018 Hypothyroidism [E03.9] Pain in right foot [M79.671] 01/13/2018 Pain in left hip [M25.552] 01/13/2018 Pain in right hip [M25.551] 01/13/2018 Hip contracture, right [M24.551] 01/13/2018 Hip contracture, left [M24.552] 01/13/2018 Generalized anxiety disorder [F41.1] 01/17/2018 Diabetes mellitus type 1, controlled, without c*02/17/2018 Encounter Status:Closed by KELLEN DURAN on 02/06/24 [facility] CNOVon 02-05-2024 CNOV Office Visit (NNSTFM ) ASTERROMAIN ([id number]) 1940 F Date Time Provider Department 02/05/24 11:30 AM WINDY YUEN NNST During your visit today, we recorded the following information about you: Pulse Blood pressure 81/minute 116/68 Windy Yuen MD 02/05/2024 11:52 AM Nadege Flynn is here for follow up; her daughter joins us on the phone for the appointment. She continues on baclofen and lorazepam. She is getting IVIG over 5 days every month at [facility] Had some trouble with the last infusion getting veins d/t anxiety They try and keep the IV in for the whole week once it is in. Normally not a problem. This past time was a problem. They are considering some techniques to relax her. She has received 5 monthly cycles of IVIG No reactions to the treatment; tolerates treatment very well. They restarted her PT. The treatments have helped her. She is able to sit up now. Her muscle spasms have reduced. She is not as resistant to passive movement and range of motion Her pain is reduced. She has not had much muscle spasms for the past four months. BP BP 116/68 Pulse 81 SpO2 94% MSE: Alert and oriented to person, place, and time. Speech is fluent without dysarthria or aphasia. Recall is intact to recent and remote events. Attention and concentration are intact. Fund of knowledge is intact. Fixed deformity at the right ankle, inverted at ankle joint. MSK: tone increased bilateral lower extremities; Deltoid Triceps Biceps Wrist ext. Hand intrinsic Hip flexion Knee flexion Knee Ext. Damion. Flex Pl. 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 Currently she is taking baclofen 15 mg tid; and lorazepam 0.5 mg daily; no significant pain symptoms but continued stiffness symptoms. Despite medical treatment, she has continued bilateral LE weakness, trouble with core rigidity, and spasm with activities and transfers inhibiting her QOL. She has medical neccesity for IVIG since her symptoms have not responded adequately to baclofen of lorazepam treatment as noted above. At last appointment we discussed IVIG treatment; would be more than reasonable to trial IVIG x 3 months w/ goal of improving QOL; reduced muscle spasms, help with transfers daughter has confirmed that she can receive the treatments at [facility]. She is now s/p 5 monthly cycles of IVIG: She has experienced remarkable improvement of her symptoms since initiating IVIG treatments: She has not been having spasms anymore She is able to sit in her chair now She has re-started PT. Will plan to consolidate treatment to 0.66 g/kg daily over three days (same total dose of 2g/kg IBW) Fax order to Maura at [facility] at [phone] RT 6 months Allergies As of Date: 02/05/2024 (No Known Allergies) Date Reviewed: 02/05/2024 Reviewed by: Shira Hager LPN - Fully Assessed Reason for Visit: Follow Up [171] Cmt: Patient states no changes. 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 For three consecutive days. Repeat infusion cycle every month for a total of 6 months (6 total infusion cycles). Premedicate with diphenhydramine 25 mg PO and acetaminophen 650 mg PO.Disp: 1050 mLRfl: 5 Prescriptions as of 02/05/2024 - immune globulin (human) (IgG) 35 g in empty bag Total Volume 350 mL (GAMMAGARD) Inject 350 mL intravenously every 24 hours. For three consecutive days. Repeat infusion cycle every month for a total of 6 months (6 total infusion cycles). Premedicate with diphenhydramine 25 mg PO and acetaminophen 650 mg PO. - glucagon (GLUCAGEN) 1 mg/mL injection Inject intramuscularly. - FREESTYLE JEREMIAH 2 SENSOR kit - GLUCAGON EMERGENCY KIT, HUMAN, 1 mg injection - insulin detemir U-100 (LEVEMIR FLEXTOUCH U-100 INSULIN) 100 unit/mL (3 mL) injection pen Inject 27 Units subcutaneously every morning. - insulin aspart U-100 (NOVOLOG FLEXPEN U-100 INSULIN) 100 unit/mL (3 mL) Sliding scale 151-200, give 1 unit 201-250, give 2 units 251-300, give 3 units 301-350, give 4 units > 350, give 5 units and call provider - SENNA-DOCUSATE SODIUM ORAL Take by mouth. - LORazepam (ATIVAN) 0.5 mg Take 0.25 mg by mouth every morning. - baclofen (LIORESAL) 10 mg tablet Take 15 mg by mouth three times daily. - insulin detemir U-100 (LEVEMIR) 100 unit/mL (3 mL) injection pen Insulin Detemir U-100 (Levemir Flextouch U-100 Insuln) 100 UNITS/ML insulin pen Active 29 UNITS SC DAILY April 21, 2018 12:38pm (more content not included)... Normal [facility]) ROMAIN MCDERMOTT ([id number]) 1940 F Date Time Provider Department 11/24/23 WINDY YUEN [facility] During your visit today, we recorded the following information about you: Naif Oates 11/24/2023 3:16 PM Signed Patient's appointment changed from 12/17/23 to 02/05/[address] Yuen being out of the office. Appointment details faxed as requested by daughter, Nyla, so patient will have transportation for appointment. Faxed to [facility]: [phone] Confirmation ok. Allergies As of Date: 11/24/2023 (No Known Allergies) Date Reviewed: 07/31/2023 Reviewed by: Shruthi Soliz LPN - Fully Assessed Reason for Visit: Appointment [186] Cmt: Update faxed to [facility] for appointment 02/05/24 Prescriptions as of 11/24/2023 - glucagon (GLUCAGEN) 1 mg/mL injection Inject intramuscularly. - immune globulin (human) (IgG) 20 g in empty bag Total Volume 200 mL (GAMMAGARD) Inject 200 mL intravenously every 24 hours. For fiver consecutive days. Repeat infusion cycle every month for a total of 6 months (6 total infusion cycles). Premedicate with diphenhydramine 25 mg PO and acetaminophen 650 mg PO. - FREESTYLE JEREMIAH 2 SENSOR kit - GLUCAGON EMERGENCY KIT, HUMAN, 1 mg injection - insulin detemir U-100 (LEVEMIR FLEXTOUCH U-100 INSULIN) 100 unit/mL (3 mL) injection pen Inject 27 Units subcutaneously every morning. - insulin aspart U-100 (NOVOLOG FLEXPEN U-100 INSULIN) 100 unit/mL (3 mL) Sliding scale 151-200, give 1 unit 201-250, give 2 units 251-300, give 3 units 301-350, give 4 units > 350, give 5 units and call provider - SENNA-DOCUSATE SODIUM ORAL Take by mouth. - LORazepam (ATIVAN) 0.5 mg Take 0.25 mg by mouth every morning. - baclofen (LIORESAL) 10 mg tablet Take 15 mg by mouth three times daily. - insulin detemir U-100 (LEVEMIR) 100 unit/mL (3 mL) injection pen Insulin Detemir U-100 (Levemir Flextouch U-100 Insuln) 100 UNITS/ML insulin pen Active 29 UNITS SC DAILY April 21, 2018 12:38pm - COMPOUNDED PRESCRIPTION 1 Wheelchair with removable foot rests. ICD 10: R53.1, M79.671, M21.6X1 - blood sugar diagnostic (RELION PRIME TEST STRIPS) test strip Check blood sugar 4 times daily as intructed. Dx: E11.9. Insulin: yes - Blood-Glucose Meter (RELION PRIME METER) misc 1 Each four times daily. Dx: E11.9. Insulin: yes - levothyroxine (SYNTHROID) 75 mcg tablet Take 1 tablet by mouth once daily. Take on empty stomach. For Thyroid Problem List As Of Date 11/24/2023 Noted Resolved Hypothyroidism, acquired [E03.9] 01/07/2018 Hypothyroidism [E03.9] Pain in right foot [M79.671] 01/13/2018 Pain in left hip [M25.552] 01/13/2018 Pain in right hip [M25.551] 01/13/2018 Hip contracture, right [M24.551] 01/13/2018 Hip contracture, left [M24.552] 01/13/2018 Generalized anxiety disorder [F41.1] 01/17/2018 Diabetes mellitus type 1, controlled, without c*02/17/2018 Encounter Status:Closed by NAIF OATES on 11/24/23 [facility] Brian [facility] ROMAIN MCDERMOTT ([id number]) 1940 F Date Time Provider Department 11/14/23 WINDY YUEN [facility] During your visit today, we recorded the following information about you: Allergies As of Date: 11/14/2023 (No Known Allergies) Date Reviewed: 07/31/2023 Reviewed by: Shruthi Soliz LPN - Fully Assessed Prescriptions as of 11/14/2023 - glucagon (GLUCAGEN) 1 mg/mL injection Inject intramuscularly. - immune globulin (human) (IgG) 20 g in empty bag Total Volume 200 mL (GAMMAGARD) Inject 200 mL intravenously every 24 hours. For fiver consecutive days. Repeat infusion cycle every month for a total of 6 months (6 total infusion cycles). Premedicate with diphenhydramine 25 mg PO and acetaminophen 650 mg PO. - FREESTYLE JEREMIAH 2 SENSOR kit - GLUCAGON EMERGENCY KIT, HUMAN, 1 mg injection - insulin detemir U-100 (LEVEMIR FLEXTOUCH U-100 INSULIN) 100 unit/mL (3 mL) injection pen Inject 27 Units subcutaneously every morning. - insulin aspart U-100 (NOVOLOG FLEXPEN U-100 INSULIN) 100 unit/mL (3 mL) Sliding scale 151-200, give 1 unit 201-250, give 2 units 251-300, give 3 units 301-350, give 4 units > 350, give 5 units and call provider - SENNA-DOCUSATE SODIUM ORAL Take by mouth. - LORazepam (ATIVAN) 0.5 mg Take 0.25 mg by mouth every morning. - baclofen (LIORESAL) 10 mg tablet Take 15 mg by mouth three times daily. - insulin detemir U-100 (LEVEMIR) 100 unit/mL (3 mL) injection pen Insulin Detemir U-100 (Levemir Flextouch U-100 Insuln) 100 UNITS/ML insulin pen Active 29 UNITS SC DAILY April 21, 2018 12:38pm - COMPOUNDED PRESCRIPTION 1 Wheelchair with removable foot rests. ICD 10: R53.1, M79.671, M21.6X1 - blood sugar diagnostic (RELION PRIME TEST STRIPS) test strip Check blood sugar 4 times daily as intructed. Dx: E11.9. Insulin: yes - Blood-Glucose Meter (RELION PRIME METER) misc 1 Each four times daily. Dx: E11.9. Insulin: yes - levothyroxine (SYNTHROID) 75 mcg tablet Take 1 tablet by mouth once daily. Take on empty stomach. For Thyroid Problem List As Of Date 11/14/2023 Noted Resolved Hypothyroidism, acquired [E03.9] 01/07/2018 Hypothyroidism [E03.9] Pain in right foot [M79.671] 01/13/2018 Pain in left hip [M25.552] 01/13/2018 Pain in right hip [M25.551] 01/13/2018 Hip contracture, right [M24.551] 01/13/2018 Hip contracture, left [M24.552] 01/13/2018 Generalized anxiety disorder [F41.1] 01/17/2018 Diabetes mellitus type 1, controlled, without c*02/17/2018 Encounter Status:Closed by MONA WALLS on 11/14/23 [facility] Brian [facility]29[facility] ROMAIN MCDERMOTT ([id number]) 1940 F Date Time Provider Department 10/29/23 WINDY YUEN [facility] During your visit today, we recorded the following information about you: Naif Oates 10/29/2023 2:49 PM Signed Faxed appointment change/reminder to [facility] [place]: [phone]. Confirmation ok. Appointment date for 12/17/23 arrive by 11:45am. Allergies As of Date: 10/29/2023 (No Known Allergies) Date Reviewed: 07/31/2023 Reviewed by: Shruthi Soliz LPN - Fully Assessed Reason for Visit: Appointment [186] Cmt: Appointment Update Faxed to [facility] [place] for 12/17/23 Prescriptions as of 10/29/2023 - glucagon (GLUCAGEN) 1 mg/mL injection Inject intramuscularly. - immune globulin (human) (IgG) 20 g in empty bag Total Volume 200 mL (GAMMAGARD) Inject 200 mL intravenously every 24 hours. For fiver consecutive days. Repeat infusion cycle every month for a total of 6 months (6 total infusion cycles). Premedicate with diphenhydramine 25 mg PO and acetaminophen 650 mg PO. - FREESTYLE JEREMIAH 2 SENSOR kit - GLUCAGON EMERGENCY KIT, HUMAN, 1 mg injection - insulin detemir U-100 (LEVEMIR FLEXTOUCH U-100 INSULIN) 100 unit/mL (3 mL) injection pen Inject 27 Units subcutaneously every morning. - insulin aspart U-100 (NOVOLOG FLEXPEN U-100 INSULIN) 100 unit/mL (3 mL) Sliding scale 151-200, give 1 unit 201-250, give 2 units 251-300, give 3 units 301-350, give 4 units > 350, give 5 units and call provider - SENNA-DOCUSATE SODIUM ORAL Take by mouth. - LORazepam (ATIVAN) 0.5 mg Take 0.25 mg by mouth every morning. - baclofen (LIORESAL) 10 mg tablet Take 15 mg by mouth three times daily. - insulin detemir U-100 (LEVEMIR) 100 unit/mL (3 mL) injection pen Insulin Detemir U-100 (Levemir Flextouch U-100 Insuln) 100 UNITS/ML insulin pen Active 29 UNITS SC DAILY April 21, 2018 12:38pm - COMPOUNDED PRESCRIPTION 1 Wheelchair with removable foot rests. ICD 10: R53.1, M79.671, M21.6X1 - blood sugar diagnostic (RELION PRIME TEST STRIPS) test strip Check blood sugar 4 times daily as intructed. Dx: E11.9. Insulin: yes - Blood-Glucose Meter (RELION PRIME METER) misc 1 Each four times daily. Dx: E11.9. Insulin: yes - levothyroxine (SYNTHROID) 75 mcg tablet Take 1 tablet by mouth once daily. Take on empty stomach. For Thyroid Problem List As Of Date 10/29/2023 Noted Resolved Hypothyroidism, acquired [E03.9] 01/07/2018 Hypothyroidism [E03.9] Pain in right foot [M79.671] 01/13/2018 Pain in left hip [M25.552] 01/13/2018 Pain in right hip [M25.551] 01/13/2018 Hip contracture, right [M24.551] 01/13/2018 Hip contracture, left [M24.552] 01/13/2018 Generalized anxiety disorder [F41.1] 01/17/2018 Diabetes mellitus type 1, controlled, without c*02/17/2018 Encounter Status:Closed by NAIF OATES on 10/29/23 [facility]) ROMAIN MCDERMOTT ([id number]) 1940 F Date Time Provider Department 10/15/23 WINDY YUEN [facility] During your visit today, we recorded the following information about you: Kellen Larsen 10/15/2023 5:03 PM Signed Pt daughter would like to speak to Dr Yuen via phone regarding noted changed in mother since starting her injections with her Insulin levels as well as Muscle Spasms Windy Yuen MD 10/16/2023 11:22 AM Signed Mary, Are you able to find out what her concerns are? Thanks Mary Carrasco, RN 10/16/2023 3:34 PM Signed Per call to daughter, Nyla,states patient is doing great with the infusions. States pain response seems to be normal. Notably decreased spasms. Daughter states she does not see them occur any more. She is up in the chair daily and for 8-9 hours. She is sitting in her chair at 90 degree janina. Concern is that her blood sugars are lower. Levels were normally 200's to well over 300's before starting IVIG treatments at the end on August. Does not have in depth information of levels but was measured at 153 before IVIG, 120's after tx, and running lower in the evenings stating the other night was 58. Is becoming fairly common for her to only receive long acting and not short acting insulin. States the concern is that the [facility] is giving her sugary,unhealthy snacks to increase blood sugar in the evening for lower blood sugar levels of about 58. She is asking for an order for patient to have more healthy snacks of carb and protein. States she will will discuss with PCP,Electrical Engineering Teacher and Endo. Asking if decreased in blood sugar is normal when receiving IVIG. Will obtain and send hx of before and after infusion blood sugar levels. NOV with 12-17-23. Does not have f/u with Endo. Message forwarded to Dr.Spolter Mary Carrasco RN, BSN Windy Yuen MD 10/16/2023 4:12 PM Signed Please advise her that I don't see any clear connection between blood sugar levels and IVIG treatments I am happy to hear that her symptoms are much improved. She should follow up with her PCP regarding blood sugar and insulin concerns. Mary Carrasco RN 10/17/2023 11:11 AM Signed Per call to patient's daughter, Nyla, Notified of reply from . States understanding and agrees with plan. [facility] patient had 3 IVIG infusions scheduled: August, September and the end of October. Next scheduled office visit it 12-17-23 which is after the fourth infusion should be scheduled in the last week of November. Asking if order should be placed prior to appointment. Message forwarded to to advise. Mary Carrasco RN, BSN Windy Yuen MD 10/17/2023 11:53 AM Addendum I spoke to her daughter Reviewed with her the current orders through 03/12 and insurance approval (through 05/19/24) I do not think that further orders should be needed at this time. She would like to consider consolidating to 3 treatment days per cycle at her follow up appointment in november. She will check with [facility] whether any further orders are needed. I asked her to update us with that information and fax number for any needed orders. 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 - immune globulin (human) (IgG) 20 g in empty bag Total Volume 200 mL (GAMMAGARD) Inject 200 mL intravenously every 24 hours. For fiver consecutive days. Repeat infusion cycle every month for a total of 6 months (6 total infusion cycles). Premedicate with diphenhydramine 25 mg PO and acetaminophen 650 mg PO. - FREESTYLE JEREMIAH 2 SENSOR kit - GLUCAGON EMERGENCY KIT, HUMAN, 1 mg injection - insulin detemir U-100 (LEVEMIR FLEXTOUCH U-100 INSULIN) 100 unit/mL (3 mL) injection pen Inject 27 Units subcutaneously every morning. - insulin aspart U-100 (NOVOLOG FLEXPEN U-100 INSULIN) 100 unit/mL (3 mL) Sliding scale 151-200, give 1 unit 201-250, give 2 units 251-300, give 3 units 301-350, give 4 units > 350, give 5 units and call provider - SENNA-DOCUSATE SODIUM ORAL Take by mouth. - LORazepam (ATIVAN) 0.5 mg Take 0.25 mg by mouth every morning. - baclofen (LIORESAL) 10 mg tablet Take 15 mg by mouth three times daily. - insulin detemir U-100 (LEVEMIR) 100 unit/mL (3 mL) injection pen Insulin Detemir U-100 (Levemir Flextouch U-100 Insuln) 100 UNITS/ML insulin pen Active 29 UNITS SC DAILY April 21, 2018 12:38pm - COMPOUNDED PRESCRIPTION 1 Wheelch (more content not included)... Normal [facility] Brian 09-25-2023 [facility] Telephone ([facility]) ROMAIN MCDERMOTT Marylou ([id number]) 1940 F Date Time Provider Department 09/25/23 WINDY YUEN [facility] During your visit today, we recorded the following information about you: Allergies As of Date: 09/25/2023 (No Known Allergies) Date Reviewed: 07/31/2023 Reviewed by: Shruthi Soliz LPN - Fully Assessed Reason for Visit: Appointment [186] Prescriptions as of 09/25/2023 - glucagon (GLUCAGEN) 1 mg/mL injection Inject intramuscularly. - immune globulin (human) (IgG) 20 g in empty bag Total Volume 200 mL (GAMMAGARD) Inject 200 mL intravenously every 24 hours. For fiver consecutive days. Repeat infusion cycle every month for a total of 6 months (6 total infusion cycles). Premedicate with diphenhydramine 25 mg PO and acetaminophen 650 mg PO. - FREESTYLE JEREMIAH 2 SENSOR kit - GLUCAGON EMERGENCY KIT, HUMAN, 1 mg injection - insulin detemir U-100 (LEVEMIR FLEXTOUCH U-100 INSULIN) 100 unit/mL (3 mL) injection pen Inject 27 Units subcutaneously every morning. - insulin aspart U-100 (NOVOLOG FLEXPEN U-100 INSULIN) 100 unit/mL (3 mL) Sliding scale 151-200, give 1 unit 201-250, give 2 units 251-300, give 3 units 301-350, give 4 units > 350, give 5 units and call provider - SENNA-DOCUSATE SODIUM ORAL Take by mouth. - LORazepam (ATIVAN) 0.5 mg Take 0.25 mg by mouth every morning. - baclofen (LIORESAL) 10 mg tablet Take 15 mg by mouth three times daily. - insulin detemir U-100 (LEVEMIR) 100 unit/mL (3 mL) injection pen Insulin Detemir U-100 (Levemir Flextouch U-100 Insuln) 100 UNITS/ML insulin pen Active 29 UNITS SC DAILY April 21, 2018 12:38pm - COMPOUNDED PRESCRIPTION 1 Wheelchair with removable foot rests. ICD 10: R53.1, M79.671, M21.6X1 - blood sugar diagnostic (RELION PRIME TEST STRIPS) test strip Check blood sugar 4 times daily as intructed. Dx: E11.9. Insulin: yes - Blood-Glucose Meter (RELION PRIME METER) misc 1 Each four times daily. Dx: E11.9. Insulin: yes - levothyroxine (SYNTHROID) 75 mcg tablet Take 1 tablet by mouth once daily. Take on empty stomach. For Thyroid Problem List As Of Date 09/25/2023 Noted Resolved Hypothyroidism, acquired [E03.9] 01/07/2018 Hypothyroidism [E03.9] Pain in right foot [M79.671] 01/13/2018 Pain in left hip [M25.552] 01/13/2018 Pain in right hip [M25.551] 01/13/2018 Hip contracture, right [M24.551] 01/13/2018 Hip contracture, left [M24.552] 01/13/2018 Generalized anxiety disorder [F41.1] 01/17/2018 Diabetes mellitus type 1, controlled, without c*02/17/2018 Encounter Status:Closed by BRIAN AMAYA on 09/25/23 [facility] 09-18-2023 [facility] Telephone ([facility]) ROMAIN MCDERMOTT ([id number]) 1940 F Date Time Provider Department 09/18/23 WINDY YUEN [facility] During your visit today, we recorded the following information about you: Jackie Newsome RN 09/18/2023 9:49 AM Signed Per Maura from [facility], this patient's daughter would like to have her IVIG dose changed to a higher dose for a shorter duration. States this was discussed with Dr. Yuen previously. Please advise if this is correct and if so, please call Maura back at [phone]. A new order and authorization will be needed. Windy Yuen MD 09/18/2023 11:16 AM Signed We should keep her on the same schedule for 3 cycles; if she tolerates the infusion well at that dose after 3 cycles we can try a new dosing schedule that is condensed Since we have authorization for the current dosing regimen; I don't want to change things until we establish that she responds to treatment and that she tolerates the medication well. Kellen Duran LPN 09/18/2023 1:26 PM Signed Spoke to Maura and relayed message from provider, she voiced understanding at this time and will let patient and daughter know. Allergies As of Date: 09/18/2023 (No Known Allergies) Date Reviewed: 07/31/2023 Reviewed by: Shruthi Soliz LPN - Fully Assessed Reason for Visit: Medication Question [8948] Prescriptions as of 09/18/2023 - glucagon (GLUCAGEN) 1 mg/mL injection Inject intramuscularly. - immune globulin (human) (IgG) 20 g in empty bag Total Volume 200 mL (GAMMAGARD) Inject 200 mL intravenously every 24 hours. For fiver consecutive days. Repeat infusion cycle every month for a total of 6 months (6 total infusion cycles). Premedicate with diphenhydramine 25 mg PO and acetaminophen 650 mg PO. - FREESTYLE JEREMIAH 2 SENSOR kit - GLUCAGON EMERGENCY KIT, HUMAN, 1 mg injection - insulin detemir U-100 (LEVEMIR FLEXTOUCH U-100 INSULIN) 100 unit/mL (3 mL) injection pen Inject 27 Units subcutaneously every morning. - insulin aspart U-100 (NOVOLOG FLEXPEN U-100 INSULIN) 100 unit/mL (3 mL) Sliding scale 151-200, give 1 unit 201-250, give 2 units 251-300, give 3 units 301-350, give 4 units > 350, give 5 units and call provider - SENNA-DOCUSATE SODIUM ORAL Take by mouth. - LORazepam (ATIVAN) 0.5 mg Take 0.25 mg by mouth every morning. - baclofen (LIORESAL) 10 mg tablet Take 15 mg by mouth three times daily. - insulin detemir U-100 (LEVEMIR) 100 unit/mL (3 mL) injection pen Insulin Detemir U-100 (Levemir Flextouch U-100 Insuln) 100 UNITS/ML insulin pen Active 29 UNITS SC DAILY April 21, 2018 12:38pm - COMPOUNDED PRESCRIPTION 1 Wheelchair with removable foot rests. ICD 10: R53.1, M79.671, M21.6X1 - blood sugar diagnostic (RELION PRIME TEST STRIPS) test strip Check blood sugar 4 times daily as intructed. Dx: E11.9. Insulin: yes - Blood-Glucose Meter (RELION PRIME METER) misc 1 Each four times daily. Dx: E11.9. Insulin: yes - levothyroxine (SYNTHROID) 75 mcg tablet Take 1 tablet by mouth once daily. Take on empty stomach. For Thyroid Problem List As Of Date 09/18/2023 Noted Resolved Hypothyroidism, acquired [E03.9] 01/07/2018 Hypothyroidism [E03.9] Pain in right foot [M79.671] 01/13/2018 Pain in left hip [M25.552] 01/13/2018 Pain in right hip [M25.551] 01/13/2018 Hip contracture, right [M24.551] 01/13/2018 Hip contracture, left [M24.552] 01/13/2018 Generalized anxiety disorder [F41.1] 01/17/2018 Diabetes mellitus type 1, controlled, without c*02/17/2018 Encounter Status:Closed by WINDY YUEN on 09/18/23 [facility] 08-13-2023 [facility]FL[facility] ROMAIN MCDERMOTT ([id number]) 1940 F Date Time Provider Department 08/13/23 WINDY YUEN STFLF During your visit today, we recorded the following information about you: Leigha Walter MA 08/13/2023 9:54 AM Signed Faxed office notes, demographic sheet, copy of insurance, we don't have a copy of insurance cards to [phone]. Windy Yuen MD 08/22/2023 5:18 PM Signed Infusion order form completed in my outbox [facility] Please include copy of the printed ivig rx and include documentation of insurance authorization. Shruthi Torres LPN 08/26/2023 5:20 PM Addendum Contacted [facility] to attempt to get a copy of IVIG authorization. Spoke with two individuals, was told that [employer] doesn't handle patients pharmacy benefits and was transferred to [facility] - [phone]. Dileep at [facility] stated they do not handle patients pharmacy benefits - [facility] does - [phone]. Spoke with Elida at specialty pharmacy who found infusion order and transferred call to infusion team. Infusion team can't pull up patients information. Authorization number is documented as [id number]. Judy Morin 08/27/2023 8:39 AM Signed Daughter is calling for an update Please advise Nyla Palacios [phone] Needing this done KELSEY for the Prior Auth is only good for SIX months and they only have Five months left Kellen Duran LPN 08/27/2023 2:53 PM Signed Faxed authorization approval letter to [facility] with confirmation. Approval letter sent to Naif Gore 11/24/2023 2:54 PM Signed Called to r/s appointment from 12/17/23. While on the phone, daughterNyla [phone], said the hospital will need monthly verifications to continue on the IVIG. SATYA or MAURA LEMA is who she said Dr. Yuen was talking to before. Please reach out to make sure this will be available for patient as ordered by . Thank you! Mary Carrasco, RN 11/25/2023 9:24 AM Signed Per call to Nyla morgan, states Infusion center will be calling monthly to verify that patient is continuing to receive IVIG therapy. In turn, the long term, [facility], will be notified, appointment scheduled, and transportation for infusion will then be made. Patient has order dated 08-22-23 to repeat cycle every 28 days. Has approval from [facility] through 05-19-24. Verified with Nyla that the November appointment with has been rescheduled for 02-05-24 at 11:30 and is documented that it has been faxed to [facility]. Message forwarded to . Mary Carrasco RN, BSN Allergies As of Date: 08/13/2023 (No Known Allergies) Date Reviewed: 07/31/2023 Reviewed by: Shruthi Soliz LPN - Fully Assessed Reason for Visit: Insurance Authorization [[id number]] Cmt: IVIG - Gammagard Prescriptions as of 11/25/2023 - glucagon (GLUCAGEN) 1 mg/mL injection Inject intramuscularly. - immune globulin (human) (IgG) 20 g in empty bag Total Volume 200 mL (GAMMAGARD) Inject 200 mL intravenously every 24 hours. For fiver consecutive days. Repeat infusion cycle every month for a total of 6 months (6 total infusion cycles). Premedicate with diphenhydramine 25 mg PO and acetaminophen 650 mg PO. - FREESTYLE JEREMIAH 2 SENSOR kit - GLUCAGON EMERGENCY KIT, HUMAN, 1 mg injection - insulin detemir U-100 (LEVEMIR FLEXTOUCH U-100 INSULIN) 100 unit/mL (3 mL) injection pen Inject 27 Units subcutaneously every morning. - insulin aspart U-100 (NOVOLOG FLEXPEN U-100 INSULIN) 100 unit/mL (3 mL) Sliding scale 151-200, give 1 unit 201-250, give 2 units 251-300, give 3 units 301-350, give 4 units > 350, give 5 units and call provider - SENNA-DOCUSATE SODIUM ORAL Take by mouth. - LORazepam (ATIVAN) 0.5 mg Take 0.25 mg by mouth every morning. - baclofen (LIORESAL) 10 mg tablet Take 15 mg by mouth three times daily. - insulin detemir U-100 (LEVEMIR) 100 unit/mL (3 mL) injection pen Insulin Detemir U-100 (Levemir Flextouch U-100 Insuln) 100 UNITS/ML insulin pen Active 29 UNITS SC DAILY April 21, 2018 12:38pm - COMPOUNDED PRESCRIPTION 1 Wheelchair with removable foot rests. ICD 10: R53.1, M79.671, M21.6X1 - blood sugar diagnostic (RELION PRIME TEST STRIPS) test strip Check blood sugar 4 times daily as intructed. Dx: E11.9. Insulin: yes - Blood-Glucose Meter (RELION PRIME METER) misc 1 Each four times daily. Dx: E11.9. Insulin: yes - levothyroxine (SYNTHROID) 75 mcg tablet Take 1 tablet by mouth once daily. Take on empty stomach. For Thyroid Problem List As Of Date 08/13/2023 Noted Resolved Hypothyroidism, acquired [E03.9] 01/07/2018 Hypothyroidism [E03.9] Pain in right foot [M79.671] 01/13/2018 Pain in left hip [M25.552] 01/13/2018 Pain in right hip [M25.551] 01/13/2018 Hip contracture, right [M24.551] 01/13/2018 Hip cont (more content not included)... Normal [facility] CNOVon 07-31-2023 CNOV Office Visit (NNSTFM ) ASTERROMAIN ([id number]) 1940 F Date Time Provider Department 07/31/23 4:30 PM WINDY YUEN NNSTFM During your visit today, we recorded the following information about you: Pulse Blood pressure Weight Height 72/minute 91/50 59.9 kg 1.607 m Windy Yuen MD 07/31/2023 5:08 PM Signed Romain is here for follow up; her daughter joins us on the phone for the appointment. She continues on baclofen and lorazepam. They started spreading the dosing out more of balcofen, spacing it out She is still very stiff and sore Hard for her to be in a chair for long periods of a time She is able to get the IVIG at [facility]. Office notes and IVIG order was faxed to Maura at [facility] at [phone] with confirmation. Our office Spoke to Maura and she stated that the patient will need documentation showing a failure or inability to tolerate the baclofen, in order to get approved for Gammagard. And needs progress note faxed to their office at [phone]. It seems like there was a misunderstanding; the rx was never sent to her insurance for approval. BP 91/50 Pulse 72 Ht 160.7 cm (5' 3.25) Wt 59.9 kg (132 lb) SpO2 96% BMI 23.20 kg/m? MSE: Alert and oriented to person, place, and time. Speech is fluent without dysarthria or aphasia. Recall is intact to recent and remote events. Attention and concentration are intact. Fund of knowledge is intact. Fixed deformity at the right ankle, inverted at ankle joint. MSK: tone increased bilateral lower extremities; Deltoid Triceps Biceps Wrist ext. Hand intrinsic Hip flexion Knee flexion Knee Ext. Damion. Flex Pl. 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 Currently she is taking baclofen 15 mg tid; and lorazepam 0.5 mg daily; no significant pain symptoms but continued stiffness symptoms. Despite medical treatment, she has continued bilateral LE weakness, trouble with core rigidity, and spasm with activities and transfers inhibiting her QOL. She has medical neccesity for IVIG since her symptoms have not responded adequately to baclofen of lorazepam treatment as noted above. We discussed IVIG treatment; would be more than reasonable to trial IVIG x 3 months w/ goal of improving QOL; reduced muscle spasms, help with transfers daughter has confirmed that she can receive the treatments at [facility]. Will send off IVIG rx for insurance approval. RTC 3 months Allergies As of Date: 07/31/2023 (No Known Allergies) Date Reviewed: 07/31/2023 Reviewed by: Shruthi Soliz LPN - Fully Assessed Reason for Visit: Follow Up [171] Cmt: L heel pain. Blood sugar has been high. 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 For fiver consecutive days. Repeat infusion cycle every month for a total of 6 months (6 total infusion cycles). Premedicate with diphenhydramine 25 mg PO and acetaminophen 650 mg PO.Disp: 1000 mLRfl: 5 Prescriptions as of 08/26/2023 - glucagon (GLUCAGEN) 1 mg/mL injection Inject intramuscularly. - immune globulin (human) (IgG) 20 g in empty bag Total Volume 200 mL (GAMMAGARD) Inject 200 mL intravenously every 24 hours. For fiver consecutive days. Repeat infusion cycle every month for a total of 6 months (6 total infusion cycles). Premedicate with diphenhydramine 25 mg PO and acetaminophen 650 mg PO. - FREESTYLE JEREMIAH 2 SENSOR kit - GLUCAGON EMERGENCY KIT, HUMAN, 1 mg injection - insulin detemir U-100 (LEVEMIR FLEXTOUCH U-100 INSULIN) 100 unit/mL (3 mL) injection pen Inject 27 Units subcutaneously every morning. - insulin aspart U-100 (NOVOLOG FLEXPEN U-100 INSULIN) 100 unit/mL (3 mL) Sliding scale 151-200, give 1 unit 201-250, give 2 units 251-300, give 3 units 301-350, give 4 units > 350, give 5 units and call provider - SENNA-DOCUSATE SODIUM ORAL Take by mouth. - LORazepam (ATIVAN) 0.5 mg Take 0.25 mg by mouth every morning. - baclofen (LIORESAL) 10 mg tablet Take 15 mg by mouth three times daily. - insulin detemir U-100 (LEVEMIR) 100 unit/mL (3 mL) injection pen Insulin Detemir U-100 (Levemir Flextouch U-100 Insuln) 100 UNITS/ML insulin pen Active 29 UNITS SC DAILY April 21, 2018 12:38pm - COMPOUNDED PRESCRIPTION 1 Wheelchair with removable foot rests. ICD 10: R53.1, M79.671, M21.6X1 - blood sugar diagnostic (RELION PRIME TEST STRIPS) test strip Check blood sugar 4 times daily as (more content not included)... Normal [facility] CNOVon 04-30-2023 CNOV Office Visit (NNST ) ROMAIN MCDERMOTT ([id number]) 1940 F Date Time Provider Department 04/30/23 2:00 PM WINDY YUEN [facility] During your visit today, we recorded the following information about you: Pulse Blood pressure Weight Height 84/minute 112/64 55.3 kg 1.607 m Windy Yuen MD 05/27/2023 8:46 PM Addendum HPI: This is Ms. Romain Mcdermott a 83 year old female from who presents to the [facility] neurology department with a chief complaint of stiff man syndrome evaluation Referring provider: No referring provider defined for this encounter. Som ab > 120 1 year ago. HX of DM1 Her initial symptoms were having issues w/ loud sounds. She would have a strange reaction. She is unable to sit up straight; she needs to tilt her shower chair back. She is unable to walk, her right foot is bent inwards She has been non-ambulatory for the past 6 years. She gets around w/ wheelchair With sitting up she feels like she is sliding. Arms are fine, very strong, no issues w/ balance or coordination. No bulbar symptoms. No significant pain symptoms. She went to the [facility] about 3 years ago d/t severe body spasms. Body was tensing up like ironing board Living at [facility] [place]; has been there for past four years. She is happy there. They discontinued her PT. She is currently taking baclofen 15 mg bid Most recent a1c 9.0; tsh wnl PMH: PAST MEDICAL HISTORY PAST MEDICAL HISTORY Diagnosis Date DM type 1 (diabetes mellitus, type 1) (HCC) Hypothyroidism Medications: CURRENT MEDICATIONS Current Outpatient Medications Medication Sig Dispense Refill insulin detemir U-100 (LEVEMIR FLEXTOUCH U-100 INSULIN) 100 unit/mL (3 mL) injection pen Inject 27 Units subcutaneously every morning. 5 Each 2 insulin aspart U-100 (NOVOLOG FLEXPEN U-100 INSULIN) 100 unit/mL (3 mL) Sliding scale 151-200, give 1 unit 201-250, give 2 units 251-300, give 3 units 301-350, give 4 units > 350, give 5 units and call provider 5 Each 3 SENNA-DOCUSATE SODIUM ORAL Take by mouth. ondansetron (ZOFRAN) 4 mg tablet Take by mouth every 8 hours as needed for nausea/vomiting. LORazepam (ATIVAN) 0.5 mg Take 0.25 mg by mouth every morning. baclofen (LIORESAL) 10 mg tablet Take 15 mg by mouth three times daily. bisacodyl (DULCOLAX) 10 mg supp Bisacodyl Active 10 MG RC DAILY August 18, 2021 8:41pm calcium carbonate 500 mg calcium (1,250 mg) chewable tablet Take by mouth. insulin detemir U-100 (LEVEMIR) 100 unit/mL (3 mL) injection pen Insulin Detemir U-100 (Levemir Flextouch U-100 Insuln) 100 UNITS/ML insulin pen Active 29 UNITS SC DAILY April 21, 2018 12:38pm COMPOUNDED PRESCRIPTION 1 Wheelchair with removable foot rests. ICD 10: R53.1, M79.671, M21.6X1 1 Each 0 blood sugar diagnostic (RELION PRIME TEST STRIPS) test strip Check blood sugar 4 times daily as intructed. Dx: E11.9. Insulin: yes 400 Strip 3 Blood-Glucose Meter (RELION PRIME METER) misc 1 Each four times daily. Dx: E11.9. Insulin: yes 1 Each 0 levothyroxine (SYNTHROID) 75 mcg tablet Take 1 tablet by mouth once daily. Take on empty stomach. For Thyroid 90 tablet 1 aspirin 81 mg chewable tablet Take 1 tablet by mouth once daily. 90 tablet 1 No current facility-administered medications for this visit. Allergies: ALLERGIES ALLERGIES No Known Allergies Social History: SOCIAL HISTORY Social History Tobacco Use Smoking status: Former Smokeless tobacco: Never Substance Use Topics Alcohol use: Not Currently Family History: FAMILY HISTORY FAMILY HISTORY Problem Relation Age of Onset Cancer Mother No Known Problems Father ROS: A complete review of systems was performed. All systems negative other than those mentioned in HPI. Physical Exam: Vitals: BP 112/64 (BP Site: Left Arm, BP Position: Supine, BP Cuff Size: Regular Adult) Pulse 84 Ht 160.7 cm (5' 3.25) Wt 55.3 kg (122 lb) SpO2 96% BMI 21.44 kg/m? General appearance: no acute distress. Neurological Exam: MSE: Alert and oriented to person, place, and time. Speech is fluent without dysarthria or aphasia. Recall is intact to recent and remote events. Attention and concentration are intact. Fund of knowledge is intact. CN: Pupils equally round and reactive to light. Extraoccular muscles intact. Visual tilley full. Facial muscles symmetric. Hearing intact to voice. Fixed deformity at the right ankle, inverted at ankle joint. MSK: tone increased bilateral lower extremities; Deltoid Triceps Biceps Wrist ext. Hand intrinsic Hip flexion Knee flexion Knee Ext. Damion. Flex Pl. flex Right 5 5 5 5 5 3 3 3 3 3 Left 5 5 5 5 5 3 3 3 5 5 Sensation: Intact to light touch, pinprick, and vibration throughout. Reflexes: R L Biceps 2 2 Triceps 2 2 Brachioradialis 2 2 Patellar 3 3 Achilles NA 2 Toes withdrawal bilaterally Cerebellar: Inta (more content not included)... Normal [facility] SEND OUT TST 2022 REFERRAL LAB 1 [facility] Comment on above: Order Comment: Speci men Type: BLOOD SPECIMENOrdering Facility: [facility] Address: [address] [place] [address] Performed By: #### M ISC1 ####NON-INTERFACED REF LABSCLIA SEE SCANNED RESULTS TEST 1 GAD65 Ab Assay, S Normal [facility] Comment on above: Order Comment: Speci men Type: BLOOD SPECIMENOrdering Facility: [facility] Address: [address] [place] [address] Performed By: #### M ISC1 ####NON-INTERFACED REF LABSCLIA SEE SCANNED RESULTS TEST RESULTS 1 View results in Scanned Documents link when available. Normal [facility] Comment on above: Order Comment: Speci men Type: BLOOD SPECIMENOrdering Facility: [facility] Address: [address] [place] [address] Performed By: #### M ISC1 ####NON-INTERFACED REF LABSCLIA SEE SCANNED RESULTS Brian 2023 [facility] Telephone (NEMKIMBERLEY) ROMAIN MCDERMOTT ([id number]) 1940 F Date Time Provider Department 03/20/23 LUIS EDUARDO CLEMONS JR During your visit today, we recorded the following information about you: Samira Vieira LPN 2023 3:30 PM Signed TC to daughter regarding upcoming appointment with Dr. Clemons. 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 Pt will need to be seen by neuromuscular for treatment and care, per . RAGHU Siu Amy L 03/25/2023 4:36 PM Signed The listed home phone number for the patient is her daughter Nyla's phone. Nyla was notified of the canceled appointment and new appointment. The daughter was instructed that the patient must have someone accompany her to the appointment. The patient resides at the [place] at [facility]. Ph. [phone] and spoke with Mona and the nurse Bailey. Bailey was instructed on the change of appointments, providers, and location. The nurse notified that the patient must have someone with her at the appointment. The daughter will attend the appointment if she can ride with the transport. The nurse was told the patient must have someone with her during the appointment to talk with the provider. The appointment reminder was faxed to the [place]. Allergies As of Date: 2023 (No Known Allergies) Date Reviewed: 04/18/2022 Reviewed by: Artie Jang LPN - Fully Assessed Reason for Visit: Appointment [186] Prescriptions as of 03/25/2023 - insulin detemir U-100 (LEVEMIR FLEXTOUCH U-100 INSULIN) 100 unit/mL (3 mL) injection pen Inject 27 Units subcutaneously every morning. - insulin aspart U-100 (NOVOLOG FLEXPEN U-100 INSULIN) 100 unit/mL (3 mL) Sliding scale 151-200, give 1 unit 201-250, give 2 units 251-300, give 3 units 301-350, give 4 units > 350, give 5 units and call provider - SENNA-DOCUSATE SODIUM ORAL Take by mouth. - ondansetron (ZOFRAN) 4 mg tablet Take by mouth every 8 hours as needed for nausea/vomiting. - LORazepam (ATIVAN) 0.5 mg Take 0.25 mg by mouth every morning. - baclofen (LIORESAL) 10 mg tablet Take 15 mg by mouth three times daily. - bisacodyl (DULCOLAX) 10 mg supp Bisacodyl Active 10 MG RC DAILY August 18, 2021 8:41pm - calcium carbonate 500 mg calcium (1,250 mg) chewable tablet Take by mouth. - insulin detemir U-100 (LEVEMIR) 100 unit/mL (3 mL) injection pen Insulin Detemir U-100 (Levemir Flextouch U-100 Insuln) 100 UNITS/ML insulin pen Active 29 UNITS SC DAILY April 21, 2018 12:38pm - COMPOUNDED PRESCRIPTION 1 Wheelchair with removable foot rests. ICD 10: R53.1, M79.671, M21.6X1 - blood sugar diagnostic (RELION PRIME TEST STRIPS) test strip Check blood sugar 4 times daily as intructed. Dx: E11.9. Insulin: yes - Blood-Glucose Meter (RELION PRIME METER) misc 1 Each four times daily. Dx: E11.9. Insulin: yes - levothyroxine (SYNTHROID) 75 mcg tablet Take 1 tablet by mouth once daily. Take on empty stomach. For Thyroid - aspirin 81 mg chewable tablet Take 1 tablet by mouth once daily. Problem List As Of Date 2023 Noted Resolved Hypothyroidism, acquired [E03.9] 01/07/2018 Hypothyroidism [E03.9] Pain in right foot [M79.671] 01/13/2018 Pain in left hip [M25.552] 01/13/2018 Pain in right hip [M25.551] 01/13/2018 Hip contracture, right [M24.551] 01/13/2018 Hip contracture, left [M24.552] 01/13/2018 Generalized anxiety disorder [F41.1] 01/17/2018 Diabetes mellitus type 1, controlled, without c*02/17/2018 Encounter Status:Closed by SOSA VELEZ on 03/25/23 Normal [facility] Glucose Glucometer (BldC) [M ass/Vol]on 04-29-2022 Glucose [Mass/Vol] 94 mg/dL 74-106 [facility] Work Phone: Comment on above: MANAGEMENT OF PATIEN T CARE PER NURSING PROTOCOL Absolute lymphocyte counton 04-28-2022 Lymphocytes Auto (Unsp spec) [#/Vol] 2.37 10*3/uL 0.83-4.51 [facility] Work Phone: Basophil percentageon 2021 Basophils/100 WBC (Bld) 0.3 % 0-1 [facility] Work Phone: Chloride [Moles/Vol] 102 mmol/L 98-107 [facility] Work Phone: Eosinophils/100 WBC (Bld) 0.1 % 0-5 [facility] Work Phone: Glucose [Mass/Vol] 112 mg/dL 74-106 [facility] Work Phone: Comment on above: Fasting Glucose resu lt from 100 to 125 mg/dL suggests IMPAIRED HOMEOSTASIS per A.D.A. criteria. Neutrophils (Bld) [#/Vol] 8.6 10*3/uL 2.0-7.7 [facility] Work Phone: Neutrophils/100 WBC (Bld) 74.7 % 47-70 [facility] Work Phone: Potassium [Moles/Vol] 5.4 mmol/L 3.5-5.1 [facility] Work Phone: Sodium [Moles/Vol] 137 mmol/L 136-145 [facility] Work Phone: WBC (Bld) [#/Vol] 11.5 10*3/uL 4.4-11.0 [facility] Work Phone: Blood erythrocytes count (nu mber/volume)on 04-28-2022 RBC (Bld) [#/Vol] 4.65 10*6/uL 4.2-5.4 [facility] Work Phone: Blood hemoglobin measurement (mass/volume)on 04-28-2022 Hemoglobin (Bld) [Mass/Vol] 13.2 g/dL 12.0-15.0 [facility] Work Phone: Blood lymphocytes/100 leukoc yteson 04-28-2022 Lymphocytes/100 WBC (Bld) 20.6 % 19-41 [facility] Work Phone: Blood monocytes/100 leukocyt eson 04-28-2022 Monocytes/100 WBC (Bld) 3.0 % 0-10 [facility] Work Phone: Blood platelet mean volumeon 04-28-2022 Platelet mean volume (Bld) [Entitic vol] 9.7 fL 6.2-12.0 [facility] [facility] Work Phone: Determination of erythrocyte mean corpuscular volume (MCV)on 04-28-2022 MCV (RBC) [Entitic vol] 88.8 fL 81-99 [facility] Work Phone: Hematocrit Auto (Bld) [Volum e fraction]on 04-28-2022 Hematocrit (Bld) [Volume fraction] 41.3 % 37-47 [facility] Work Phone: Laboratory - Chemistry and C hemistry - challengeon 04-28-2022 CO2 [Moles/Vol] 31.0 mmol/L 21.0-32.0 [facility] Work Phone: Magnesium [Mass/Vol] 2.0 mg/dL 1.6-2.6 [facility] Work Phone: Urea nitrogen/Creatinine [Mass ratio] 33.5 mg/mg 10-20 [facility] Work Phone: Laboratory - Hematology and Cell countson 04-28-2022 Erythrocyte distribution width (RBC) [Entitic vol] 44.3 fL 35.1-43.9 [facility] Work Phone: Erythrocyte distribution width (RBC) [Ratio] 13.6 % 11.6-14.6 [facility] Work Phone: Immature granulocytes/100 WBC (Bld) 1.300 % 0.0-0.9 [facility] Work Phone: Comment on above: IG% - Immature Granu locytes (promyelocytes, myelocytes and metamyelocytes) > 1% indicates that a LEFT SHIFT is Present. MCH (RBC) [Entitic mass] 28.4 pg 27.0-32.0 [facility] Work Phone: Nucleated RBC/100 WBC (Bld) [Ratio] 0 % 0-5 [facility] Work Phone: MCHC Auto (RBC) [Mass/Vol]on 04-28-2022 MCHC (RBC) [Mass/Vol] 32.0 g/dL 32-36 [facility] Work Phone: No Panel Informationon 04-28 Estimated Creatinine Clearance Calc 37.12 ml/min [facility] Work Phone: Estimated GFR (MDRD) Amer 118 mL/min >60 [facility] Work Phone: Comment on above: GFR Calc Estimated GFR (MDRD) Non-Af Amer 97 mL/min >60 [facility] Work Phone: Comment on above: Non- GFR Calc Platelets bldon 04-28-2022 Platelets (Bld) [#/Vol] 251 10*3/uL 150-450 [facility] Work Phone: Serum or plasma calcium roger urement (mass/volume)on 04-28-2022 Calcium [Mass/Vol] 9.3 mg/dL 8.5-10.1 [facility] Work Phone: Serum or plasma creatinine m easurement (mass/volume)on 04-28-2022 Creatinine [Mass/Vol] 0.63 mg/dL 0.55-1.02 [facility] Work Phone: Comment on above: The validity of the calculated GFR & GFRAA in patients over 70 years has not been determined. Clinical correlation is essential. Serum or plasma urea nitroge n measurement (mass/volume)on 04-28-2022 Urea nitrogen [Mass/Vol] 21 mg/dL 7-18 [facility] Work Phone: Thin prep Papanicolaou smear with manual screeningon 04-28-2022 Thin prep Papanicolaou smear with manual screening 4 5-15 [facility] Work Phone: XR Foot - right AP and Later al and obliqueon 04-19-2022 IMPRESSION: Unchanged deformity of the right foot, no acute bony process is identified. Felt Finishing Supervisor: YOBANY Transcribe Date/Time: Apr 19 2022 7:25A Dictated by : LESA MCLAUGHLIN MD This examination was interpreted and the report reviewed and electronically signed by: LESA MCLAUGHLIN MD on Apr 19 2022 7:27AM EST [facility] * * *Final Report* * * DATE OF EXAM: Apr 18 2022 3:07PM JOSE ALBERTO 5337 - XR FOOT 3V AP/LAT/OBL RT / PROCEDURE REASON: [id number] * * * * Physician Interpretation * * * * HISTORY: RIGHT FOOT PAIN. Pain . TECHNIQUE: XR FOOT 3V AP/LAT/OBL RT Laterality: RIGHT Number of different views (projections): 3 COMPARISON: February 2018 RESULT: Equinovarus deformity again identified. Bones are osteoporotic unchanged. No fracture. Joint spaces are grossly maintained. [facility] Provider, [facility] - 04/19/2022 * * *Final Report* * * DATE OF EXAM: Apr 18 2022 3:07PM O 5337 - XR FOOT 3V AP/LAT/OBL RT / PROCEDURE REASON: [id number] * * * * Physician Interpretation * * * * HISTORY: RIGHT FOOT PAIN. Pain . TECHNIQUE: XR FOOT 3V AP/LAT/OBL RT Laterality: RIGHT Number of different views (projections): 3 COMPARISON: February 2018 RESULT: Equinovarus deformity again identified. Bones are osteoporotic unchanged. No fracture. Joint spaces are grossly maintained. IMPRESSION IMPRESSION: Unchanged deformity of the right foot, no acute bony process is identified. Felt Finishing Supervisor: YOBANY Transcribe Date/Time: Apr 19 2022 7:25A Dictated by : LESA MCLAUGHLIN MD This examination was interpreted and the report reviewed and electronically signed by: LESA MCLAUGHLIN MD on Apr 19 2022 7:27AM EST [facility] XR Foot - right AP and Later al and obliqueOrdered By: [facility]cf Provider on 04-19-[address] [facility] XR FOOT 3V AP/LAT/OBL RTon 06-18-2021 XR FOOT 3V AP/LAT/OBL RT * * *Final Report* * * DATE OF EXAM: Apr 18 2022 3:07PM JOSE ALBERTO 5337 - XR FOOT 3V AP/LAT/OBL RT / PROCEDURE REASON: [id number] * * * * Physician Interpretation * * * * HISTORY: RIGHT FOOT PAIN. Pain . TECHNIQUE: XR FOOT 3V AP/LAT/OBL RT Laterality: RIGHT Number of different views (projections): 3 COMPARISON: February 2018 RESULT: Equinovarus deformity again identified. Bones are osteoporotic unchanged. No fracture. Joint spaces are grossly maintained. IMPRESSION: Unchanged deformity of the right foot, no acute bony process is identified. Felt Finishing Supervisor: PSCBizmore Transcribe Date/Time: Apr 19 2022 7:25A Dictated by : LESA MCLAUGHLIN MD This examination was interpreted and the report reviewed and electronically signed by: LESA MCLAUGHLIN MD on Apr 19 2022 7:27AM EST [id number] N [facility] XR Foot - right AP and Later al and obliqueon 04-18-2022 Radiology Study observation (narrative) [facility] URINE CULTURE,BACTERIALon URINE CULTURE,BACTERIAL PATIENT: ROMAIN MCDERMOTT [place] [facility] [place] [id number] : 44 AGE: SEX: F ORDERED BY: RG MENCHACA SOURCE: URINE COLLECTED: 03/12/22 13:05 ANTIBIOTICS AT [place].: RECEIVED : 03/13/22 23:52 SITE: Clean Catch/Voided R E S U L T S URINE CULTURE,BACTERIAL FINAL 03/14/22 18:39 MULTIPLE ORGANISMS PRESENT, PROBABLE CONTAMINATION PLEASE REPEAT CULTURE. Normal [facility] Comment on above: Performed By: #### U RINC #### [facility] [address] [place] [address] URINE CULTURE,BACTERIALon URINE CULTURE,BACTERIAL PATIENT: ROMAIN MCDERMOTT [place] [facility] [place] [id number] : 44 AGE: SEX: F ORDERED BY: RG MENCHACA SOURCE: URINE COLLECTED: 03/08/22 05:42 ANTIBIOTICS AT [place].: RECEIVED : 03/08/22 20:26 SITE: Unspecified R E S U L T S URINE CULTURE,BACTERIAL FINAL 03/09/22 12:43 MULTIPLE ORGANISMS PRESENT, PROBABLE CONTAMINATION PLEASE REPEAT CULTURE. Normal [facility] Comment on above: Performed By: #### U RIN #### [facility] [address] [place] [address] Absolute lymphocyte counton 03-01-2022 Lymphocytes Auto (Unsp spec) [#/Vol] 2.41 10*3/uL 0.83-4.51 [facility] Work Phone: Basophil percentageon 2021 Basophils/100 WBC (Bld) 0.5 % 0-1 [facility] Work Phone: Chloride [Moles/Vol] 101 mmol/L 98-107 [facility] Work Phone: Eosinophils/100 WBC (Bld) 1.7 % 0-5 [facility] Work Phone: Glucose [Mass/Vol] 237 mg/dL 74-106 [facility] Work Phone: Comment on above: Glucose result great er than or equal to 200 mg/dLsuggests DIABETES MELLITUS per A.D.A. criteria. Neutrophils (Bld) [#/Vol] 6.7 10*3/uL 2.0-7.7 [facility] Work Phone: Neutrophils/100 WBC (Bld) 66.4 % 47-70 [facility] Work Phone: Potassium [Moles/Vol] 4.4 mmol/L 3.5-5.1 [facility] Work Phone: Sodium [Moles/Vol] 136 mmol/L 136-145 [facility]: WBC (Bld) [#/Vol] 10.0 10*3/uL 4.4-11.0 [facility] Work Phone: Blood erythrocytes count (nu mber/volume)on 03-01-2022 RBC (Bld) [#/Vol] 4.90 10*6/uL 4.2-5.4 [facility] Work Phone: Blood hemoglobin measurement (mass/volume)on 03-01-2022 Hemoglobin (Bld) [Mass/Vol] 14.0 g/dL 12.0-15.0 [facility] Work Phone: Blood lymphocytes/100 leukoc yteson 03-01-2022 Lymphocytes/100 WBC (Bld) 24.0 % 19-41 [facility] Work Phone: Blood monocytes/100 leukocyt eson 03-01-2022 Monocytes/100 WBC (Bld) 6.6 % 0-10 [facility] Work Phone: Blood platelet mean volumeon 03-01-2022 Platelet mean volume (Bld) [Entitic vol] 10.1 fL 6.2-12.0 [facility] Work Phone: Determination of erythrocyte mean corpuscular volume (MCV)on 03-01-2022 MCV (RBC) [Entitic vol] 86.9 fL 81-99 [facility] Work Phone: Hematocrit Auto (Bld) [Volum e fraction]on 03-01-2022 Hematocrit (Bld) [Volume fraction] 42.6 % 37-47 [facility] Work Phone: Laboratory - Chemistry and C hemistry - challengeon 03-01-2022 CO2 [Moles/Vol] 27.0 mmol/L 21.0-32.0 [facility] Work Phone: Urea nitrogen/Creatinine [Mass ratio] 23.0 mg/mg 10-20 [facility] Work Phone: Laboratory - Hematology and Cell countson 03-01-2022 Erythrocyte distribution width (RBC) [Entitic vol] 44.4 fL 35.1-43.9 [facility] Work Phone: Erythrocyte distribution width (RBC) [Ratio] 13.8 % 11.6-14.6 [facility] Work Phone: Immature granulocytes/100 WBC (Bld) 0.800 % 0.0-0.9 [facility] Work Phone: Comment on above: IG% - Immature Granu locytes (promyelocytes, myelocytes and metamyelocytes) > 1% indicates that a LEFT SHIFT is Present. MCH (RBC) [Entitic mass] 28.6 pg 27.0-32.0 [facility] Work Phone: Nucleated RBC/100 WBC (Bld) [Ratio] 0 % 0-5 [facility] Work Phone: MCHC Auto (RBC) [Mass/Vol]on 03-01-2022 MCHC (RBC) [Mass/Vol] 32.9 g/dL 32-36 [facility] Work Phone: No Panel Informationon 03-01 Estimated Creatinine Clearance Calc 37.74 ml/min [facility] Work Phone: Estimated GFR (MDRD) Amer 69 mL/min >60 [facility] Work Phone: Comment on above: GFR Calc Estimated GFR (MDRD) Non-Af Amer 57 mL/min >60 [facility] Work Phone: Comment on above: Non- GFR Calc Platelets bldon 03-01-2022 Platelets (Bld) [#/Vol] 228 10*3/uL 150-450 [facility] Work Phone: Serum or plasma acetone roger urement (mass/volume)on 03-01-2022 Acetone [Mass/Vol] Negative NEG [facility] Work Phone: Serum or plasma calcium roger urement (mass/volume)on 03-01-2022 Calcium [Mass/Vol] 10.1 mg/dL 8.5-10.1 [facility] Work Phone: Serum or plasma creatinine m easurement (mass/volume)on 03-01-2022 Creatinine [Mass/Vol] 1.00 mg/dL 0.55-1.02 [facility] Work Phone: Comment on above: The validity of the calculated GFR & GFRAA in patients over 70 years has not been determined. Clinical correlation is essential. Serum or plasma urea nitroge n measurement (mass/volume)on 03-01-2022 Urea nitrogen [Mass/Vol] 23 mg/dL 7-18 [facility] Work Phone: Thin prep Papanicolaou smear with manual screeningon 03-01-2022 Thin prep Papanicolaou smear with manual screening 8 5-15 [facility] Work Phone: C peptide SerPl-mCncon 11-15 C peptide [Mass/Vol] <0.20 Low 0.81-3.85 [facility] Comment on above: Order Comment: Speci men Type: BLOOD SPECIMEN Ordering Facility: [facility] Address: [address] [place] [address] Result Comment: Resu lt rechecked. Performed By: #### 1 986-9 #### [facility] CLIA [id number] [address] [place] [address] [place] GAD65 Ab Ser-aCncon 11-16-19 22 Glutamate decarboxylase 65 Ab Qn (S) >120.0 High <=5.0 [facility] Comment on above: Order Comment: Speci men Type: BLOOD SPECIMEN Ordering Facility: [facility] Address: [address] [place] [address] Result Comment: Anti -glutamic acid decarboxylase antibody (GAD65) test usually in conjunction with another test such as IA-2 antibody is used as an aid in establishing the autoimmune nature of previously-diagnosed type I diabetes mellitus or in predicting of progression to type I diabetes mellitus in patients with certain autoimmune diseases including autoimmune gastritis among others. It is also used as an aid in diagnosis of stiff person syndrome and certain autoimmune nervous system diseases. Clinical correlation is required. Performed By: #### [place] EB, [address]-0 #### [facility] CLIA [id number] [address] [place], [place] [address] [address] [place] GLUCOSE RANDOM BLDon 022 Glucose [Mass/Vol] 94 mg/dL 74 - 99 mg/dL [facility] Glucose SerPl-mCnhon 022 Glucose [Mass/Vol] 94 mg/dL Normal 74-99 [facility] Comment on above: Order Comment: Malini solorio Type: BLOOD SPECIMEN Ordering Facility: [facility] Address: [address] [place] [address] Result Comment: The [place] Diabetes Association (ADA) provides guidance for cutoff values for fasting glucose and random glucose. The ADA defines fasting as no caloric intake for at least 8 hours. Fasting plasma glucose results between 100 to 125 mg/dL indicate increased risk for diabetes (prediabetes). Fasting plasma glucose results greater than or equal to 126 mg/dL meet the criteria for diagnosis of diabetes. In the absence of unequivocal hyperglycemia, results should be confirmed by repeat testing. In a patient with classic symptoms of hyperglycemia or hyperglycemic crisis, random plasma glucose results greater than or equal to 200 mg/dL meet the criteria for diagnosis of diabetes. Reference: Standards of Medical Care in Diabetes 2016, [place] [employer] Association. Diabetes Care. 2016.39(Suppl 1). Performed By: #### 2 345-7, 3016-3 #### [facility] CLIA [id number] [address] [place] [address] [place] Glutamate decarboxylase 65 A b Qn (S)on 11-15-2021 GLUTAMIC ACID DECARBOXYLAS AB QUALITATIVE Positive Abnormal Negative [facility] Comment on above: Order Comment: Malini solorio Type: BLOOD SPECIMEN Ordering Facility: [facility] Address: [address] [place], [place] [id number] Performed By: #### I EB, 16091-2 #### [facility] CLIA [id number] [address] [place] [address] [place] HEMOGLOBIN A1C (POC)on 11-15 HbA1c (Bld) [Mass fraction] 8.1 % Abnormal 4.2 - 5.6 % [facility] INSULIN ANTIBODY BLDon 11-15 Insulin Ab Qn (S) <0.4 Normal <0.4 [facility] Comment on above: Order Comment: Malini solorio Type: BLOOD SPECIMEN Ordering Facility: [facility] Address: [address] [place] [address] Result Comment: Anti -insulin antibody test is used as an aid in diagnosis and prognosis of autoimmune diabetes mellitus in combination with other tests such as anti-GAD65 and anti-IA-2 antibody. A single negative result cannot rule out autoimmune diabetes mellitus. The test is not reliable in patients who had previously received exogenous insulin. Clinical correlation is required. Performed By: #### I EB, 40[address]-8 #### [facility] CLIA [id number] [address] [place] [address] [place] INSULIN ANTIBODY, QUALITATIVE Negative Normal Negative [facility] Comment on above: Order Comment: Malini solorio Type: BLOOD SPECIMEN Ordering Facility: [facility] Address: [address] [place] [address] Performed By: #### I EB, 76570-6 #### [facility] CLIA [id number] [address] [place] [address] [place] INSULINOMA ASSOCIATED ANTIBO DY 2on 11-15-2021 IA 2 ANTIBODY BLOOD <5.4 Normal <7.5 [facility] Comment on above: Order Comment: Malini solorio Type: BLOOD SPECIMEN Ordering Facility: [facility] Address: [address] [place] [address] Result Comment: Anti -insulinoma associated antigen 2 (IA-2) antibody test is used as an aid in diagnosis of type I diabetes mellitus, to predict the risk of progression to type I diabetes mellitus among susceptible individuals, and to predict the necessity of insulin therapy in adult-onset diabetes mellitus. Clinical correlation is required. Performed By: #### I A2AB #### [facility] CLIA [id number] [address] [place] [address] [place] ISLET CELL ABon 11-15-2021 ISLET CELL AB <1:4 Normal <1:4 [facility] Comment on above: Order Comment: Malini lyndsey Type: BLOOD SPECIMEN Ordering Facility: [facility] Address: [address] [place] [address] Result Comment: INTE RPRETIVE INFORMATION: Islet Cell Ab, IgG Islet cell antibodies (ICAs) are associated with type 1 diabetes (TID), an autoimmune endocrine disorder. ICAs may be present years before the onset of clinical symptoms. To calculate Juvenile Diabetes Foundation (JDF) units: multiply the titer x 5 (1:8 8 x 5 = 40 JDF Units). This test was developed and its performance characteristics determined by [facility]. It has not been cleared or approved by the [place] Food and Drug Administration. This test was performed in a CLIA certified laboratory and is intended for clinical purposes. Performed By: [facility] [address] [place] [address] Web Developer: Abdirizak Quintana MD, PhD Performed By: #### I SLET #### [facility] [id number] [address] [place] [address] T4 Free SerPl-mCncon 022 Free T4 [Mass/Vol] 1.9 ng/dL High 0.9-1.7 [facility] Comment on above: Order Comment: Speci men Type: BLOOD SPECIMEN Ordering Facility: [facility] Address: [address] [place] [address] Performed By: #### 3 024-7 #### [facility] [place] [id number] [address] [place] [address] [place] TSH BLDon 11-15-2021 TSH Qn 0.073 m[IU]/L Low 0.270 - 4.200 mIU/L [facility] TSH SerPl-aCncon 11-15-2021 TSH Qn 0.073 m[IU]/L Low 0.270-4.200 [facility] Comment on above: Order Comment: Speci men Type: BLOOD SPECIMEN Ordering Facility: [facility] Address: [address] [place] [address] Performed By: #### 2 345-7, 3016-3 #### [facility] CLIA [id number] [address] [place] [address] [facility] Absolute lymphocyte counton 08-30-2021 Lymphocytes Auto (Unsp spec) [#/Vol] 2.76 10*3/uL 0.83-4.51 [facility] Work Phone: Basophil percentageon 2021 Basophils/100 WBC (Bld) 0.5 % 0-1 [facility] Work Phone: Chloride [Moles/Vol] 104 mmol/L 98-107 [facility] Work Phone: Eosinophils/100 WBC (Bld) 1.3 % 0-5 [facility] Work Phone: Glucose [Mass/Vol] 205 mg/dL 74-106 [facility] Work Phone: Comment on above: Glucose result great er than or equal to 200 mg/dLsuggests DIABETES MELLITUS per A.D.A. criteria. Neutrophils (Bld) [#/Vol] 10.9 10*3/uL 2.0-7.7 [facility] Work Phone: Neutrophils/100 WBC (Bld) 70.9 % 47-70 [facility] Work Phone: Potassium [Moles/Vol] 4.2 mmol/L 3.5-5.1 [facility] Work Phone: Sodium [Moles/Vol] 138 mmol/L 136-145 [facility] Work Phone: WBC (Bld) [#/Vol] 15.4 10*3/uL 4.4-11.0 [facility] Work Phone: Blood erythrocytes count (nu mber/volume)on 08-30-2021 RBC (Bld) [#/Vol] 4.32 10*6/uL 4.2-5.4 [facility] Work Phone: Blood hemoglobin measurement (mass/volume)on 08-30-2021 Hemoglobin (Bld) [Mass/Vol] 12.9 g/dL 12.0-15.0 [facility] Work Phone: Blood lymphocytes/100 leukoc yteson 08-30-2021 Lymphocytes/100 WBC (Bld) 18.0 % 19-41 [facility] Work Phone: Blood monocytes/100 leukocyt eson 08-30-2021 Monocytes/100 WBC (Bld) 7.5 % 0-10 [facility] Work Phone: Blood platelet mean volumeon 08-30-2021 Platelet mean volume (Bld) [Entitic vol] 10.7 fL 6.2-12.0 [facility] Work Phone: Determination of erythrocyte mean corpuscular volume (MCV)on 08-30-2021 MCV (RBC) [Entitic vol] 88.0 fL 81-99 [facility] Work Phone: Hematocrit Auto (Bld) [Volum e fraction]on 08-30-2021 Hematocrit (Bld) [Volume fraction] 38.0 % 37-47 [facility] Work Phone: Laboratory - Chemistry and C hemistry - challengeon 08-30-2021 CO2 [Moles/Vol] 26.0 mmol/L 21.0-32.0 [facility] Work Phone: Urea nitrogen/Creatinine [Mass ratio] 20.2 mg/mg 10-20 [facility] Work Phone: Laboratory - Hematology and Cell countson 08-30-2021 Erythrocyte distribution width (RBC) [Entitic vol] 46.1 fL 35.1-43.9 [facility] Work Phone: Erythrocyte distribution width (RBC) [Ratio] 14.4 % 11.6-14.6 [facility] Work Phone: Immature granulocytes/100 WBC (Bld) 1.800 % 0.0-0.9 [facility] Work Phone: Comment on above: IG% - Immature Granu locytes (promyelocytes, myelocytes and metamyelocytes) > 1% indicates that a LEFT SHIFT is Present. MCH (RBC) [Entitic mass] 29.9 pg 27.0-32.0 [facility] Work Phone: Nucleated RBC/100 WBC (Bld) [Ratio] 0 % 0-5 [facility] Work Phone: MCHC Auto (RBC) [Mass/Vol]on 08-30-2021 MCHC (RBC) [Mass/Vol] 33.9 g/dL 32-36 [facility] Work Phone: No Panel Informationon 08-30 Estimated Creatinine Clearance Calc 27.76 ml/min [facility] Work Phone: Estimated GFR (MDRD) Amer 54 mL/min >60 [facility] Work Phone: Comment on above: GFR Calc Estimated GFR (MDRD) Non-Af Amer 44 mL/min >60 [facility] Work Phone: Comment on above: Non- GFR Calc Platelets bldon 08-30-2021 Platelets (Bld) [#/Vol] 236 10*3/uL 150-450 [facility] Work Phone: Serum or plasma calcium roger urement (mass/volume)on 08-30-2021 Calcium [Mass/Vol] 9.5 mg/dL 8.5-10.1 [facility] Work Phone: Serum or plasma creatinine m easurement (mass/volume)on 08-30-2021 Creatinine [Mass/Vol] 1.24 mg/dL 0.55-1.02 [facility] Work Phone: Comment on above: The validity of the calculated GFR & GFRAA in patients over 70 years has not been determined. Clinical correlation is essential. Serum or plasma urea nitroge n measurement (mass/volume)on 04-13-2022 Urea nitrogen [Mass/Vol] 25 mg/dL 7-18 [facility] Work Phone: Thin prep Papanicolaou smear with manual screeningon 08-30-2021 Thin prep Papanicolaou smear with manual screening 8 5-15 [facility] Work Phone: Absolute lymphocyte counton 08-19-2021 Lymphocytes Auto (Unsp spec) [#/Vol] 2.66 10*3/uL 0.83-4.51 [facility] Work Phone: Basophil percentageon 2021 Chloride [Moles/Vol] 108 mmol/L 98-107 [facility] Work Phone: Glucose [Mass/Vol] 86 mg/dL 74-106 [facility] Work Phone: Potassium [Moles/Vol] 3.6 mmol/L 3.5-5.1 [facility] Work Phone: Sodium [Moles/Vol] 137 mmol/L 136-145 [facility] Work Phone: Basophils/100 WBC (Bld) 0.4 % 0-1 [facility] Work Phone: Eosinophils/100 WBC (Bld) 0.4 % 0-5 [facility] Work Phone: Neutrophils (Bld) [#/Vol] 6.8 10*3/uL 2.0-7.7 [facility] Work Phone: Neutrophils/100 WBC (Bld) 66.0 % 47-70 [facility] Work Phone: WBC (Bld) [#/Vol] 10.3 10*3/uL 4.4-11.0 [facility] Work Phone: Blood erythrocytes count (nu mber/volume)on 08-19-2021 RBC (Bld) [#/Vol] 3.91 10*6/uL 4.2-5.4 [facility] Work Phone: Blood hemoglobin measurement (mass/volume)on 08-19-2021 Hemoglobin (Bld) [Mass/Vol] 11.3 g/dL 12.0-15.0 [facility] Work Phone: Blood lymphocytes/100 leukoc yteson 08-19-2021 Lymphocytes/100 WBC (Bld) 25.9 % 19-41 [facility] Work Phone: Blood monocytes/100 leukocyt eson 08-19-2021 Monocytes/100 WBC (Bld) 6.9 % 0-10 [facility] Work Phone: Blood platelet mean volumeon 08-19-2021 Platelet mean volume (Bld) [Entitic vol] 11.1 fL 6.2-12.0 [facility] Work Phone: Determination of erythrocyte mean corpuscular volume (MCV)on 08-19-2021 MCV (RBC) [Entitic vol] 85.9 fL 81-99 [facility] Work Phone: Glucose Glucometer (BldC) [M ass/Vol]on 08-19-2021 Glucose [Mass/Vol] 252 mg/dL 74-106 [facility] Work Phone: Comment on above: MANAGEMENT OF PATIEN T CARE PER NURSING PROTOCOL Hematocrit Auto (Bld) [Volum e fraction]on 08-19-2021 Hematocrit (Bld) [Volume fraction] 33.6 % 37-47 [facility] Work Phone: Laboratory - Chemistry and C hemistry - challengeon 08-19-2021 CO2 [Moles/Vol] 23.0 mmol/L 21.0-32.0 [facility] Work Phone: Urea nitrogen/Creatinine [Mass ratio] 24.0 mg/mg 10-20 [facility] Work Phone: Laboratory - Hematology and Cell countson 08-19-2021 Erythrocyte distribution width (RBC) [Entitic vol] 44.3 fL 35.1-43.9 [facility] Work Phone: Erythrocyte distribution width (RBC) [Ratio] 14.1 % 11.6-14.6 [facility] Work Phone: Immature granulocytes/100 WBC (Bld) 0.400 % 0.0-0.9 [facility] Work Phone: Comment on above: IG% - Immature Granu locytes (promyelocytes, myelocytes and metamyelocytes) > 1% indicates that a LEFT SHIFT is Present. MCH (RBC) [Entitic mass] 28.9 pg 27.0-32.0 [facility] Work Phone: Nucleated RBC/100 WBC (Bld) [Ratio] 0 % 0-5 [facility] Work Phone: MCHC Auto (RBC) [Mass/Vol]on 08-19-2021 MCHC (RBC) [Mass/Vol] 33.6 g/dL 32-36 [facility] Work Phone: No Panel Informationon 08-19 Estimated Creatinine Clearance Calc 34.42 ml/min [facility] Work Phone: Estimated GFR (MDRD) Amer 102 mL/min >60 [facility] Work Phone: Comment on above: GFR Calc Estimated GFR (MDRD) Non-Af Amer 84 mL/min >60 [facility] Work Phone: Comment on above: Non- GFR Calc Platelets bldon 08-19-2021 Platelets (Bld) [#/Vol] 160 10*3/uL 150-450 [facility] Work Phone: Serum or plasma calcium roger urement (mass/volume)on 08-19-2021 Calcium [Mass/Vol] 8.3 mg/dL 8.5-10.1 [facility] Work Phone: Serum or plasma creatinine m easurement (mass/volume)on 08-19-2021 Creatinine [Mass/Vol] 0.71 mg/dL 0.55-1.02 [facility] Work Phone: Comment on above: The validity of the calculated GFR & GFRAA in patients over 70 years has not been determined. Clinical correlation is essential. Serum or plasma urea nitroge n measurement (mass/volume)on 08-19-2021 Urea nitrogen [Mass/Vol] 17 mg/dL 7-18 [facility] Work Phone: Thin prep Papanicolaou smear with manual screeningon 08-19-2021 Thin prep Papanicolaou smear with manual screening 6 5-15 [facility] Work Phone: Absolute lymphocyte counton 08-18-2021 Lymphocytes Auto (Unsp spec) [#/Vol] 2.55 10*3/uL 0.83-4.51 [facility] Work Phone: Basophil percentageon 2021 Chloride [Moles/Vol] 103 mmol/L 98-107 [facility] Work Phone: Glucose [Mass/Vol] 314 mg/dL 74-106 [facility] Work Phone: Comment on above: Glucose result great er than or equal to 200 mg/dLsuggests DIABETES MELLITUS per A.D.A. criteria. Potassium [Moles/Vol] 6.1 mmol/L 3.5-5.1 [facility] Work Phone: Comment on above: Slight Hemolysis, Re sult may be falsely increased. Critical Result(s) Called at: 20:20:17 08/18/2021 by: Porsha mckenzie [facility]. Results read back by same. Sodium [Moles/Vol] 133 mmol/L 136-145 [facility] Work Phone: Basophil percentage 0 SEEN /hpf [facility] Work Phone: Basophils/100 WBC (Bld) 0.3 % 0-1 [facility] Work Phone: Bilirubin [Mass/Vol] 0.90 mg/dL 0.20-1.00 [facility] Work Phone: Comment on above: For patients on eltr ombopag therapy, use of Dimension [place] TBIL is not recommended. Eosinophils/100 WBC (Bld) 0.0 % 0-5 [facility] Work Phone: Neutrophils (Bld) [#/Vol] 9.2 10*3/uL 2.0-7.7 [facility] Work Phone: Neutrophils/100 WBC (Bld) 74.2 % 47-70 [facility] Work Phone: Protein [Mass/Vol] 7.7 g/dL 6.4-8.2 [facility] Work Phone: WBC (Bld) [#/Vol] 12.4 10*3/uL 4.4-11.0 [facility] Work Phone: Bilirubin Test strip Ql (U)o n 08-18-2021 Bilirubin Ql (U) Negative Negative [facility] Work Phone: Blood erythrocytes count (nu mber/volume)on 08-18-2021 RBC (Bld) [#/Vol] 4.91 10*6/uL 4.2-5.4 [facility] Work Phone: Blood hemoglobin measurement (mass/volume)on 08-18-2021 Hemoglobin (Bld) [Mass/Vol] 14.3 g/dL 12.0-15.0 [facility] Work Phone: Blood lymphocytes/100 leukoc yteson 08-18-2021 Lymphocytes/100 WBC (Bld) 20.6 % 19-41 [facility] Work Phone: Blood monocytes/100 leukocyt eson 08-18-2021 Monocytes/100 WBC (Bld) 4.1 % 0-10 [facility] Work Phone: Blood platelet mean volumeon 08-18-2021 Platelet mean volume (Bld) [Entitic vol] 10.9 fL 6.2-12.0 [facility] Work Phone: Determination of erythrocyte mean corpuscular volume (MCV)on 08-18-2021 MCV (RBC) [Entitic vol] 86.4 fL 81-99 [facility] Work Phone: Glucose Glucometer (BldC) [M ass/Vol]on 08-18-2021 Glucose [Mass/Vol] 276 mg/dL 74-106 [facility] Work Phone: Comment on above: MANAGEMENT OF PATIEN T CARE PER NURSING PROTOCOL HCO3 (BldA) [Moles/Vol]on HCO3 (Bld) [Moles/Vol] 19 mmol/L 22-26 [facility] Work Phone: Hematocrit Auto (Bld) [Volum e fraction]on 08-18-2021 Hematocrit (Bld) [Volume fraction] 42.4 % 37-47 [facility] Work Phone: Hyaline casts LM.LPF (Urine sed) [#/Area]on 08-18-2021 Hyaline casts (Urine sed) [#/Area] 5 /[LPF] [facility] Work Phone: Ketones Test strip Ql (U)on 08-18-2021 Ketones Ql (U) 150 mg/dl Negative [facility] Work Phone: Comment on above: CRITICAL VALUE *HCRI TICAL VALUE VERIFIED. CALLED TO [id number] Porsha Mckenzie.RESULTS READ BACK BY SAME . Laboratory - Chemistry and C hemistry - challengeon 08-18-2021 CO2 [Moles/Vol] 19.0 mmol/L 21.0-32.0 [facility] Work Phone: Urea nitrogen/Creatinine [Mass ratio] 22.8 mg/mg 10-20 [facility] Work Phone: CO2 [Moles/Vol] 20 mmol/L 23-33 [facility] Work Phone: ALP [Catalytic activity/Vol] 105 U/L 45-117 [facility] Work Phone: ALT [Catalytic activity/Vol] 13 U/L 13-56 [facility] Work Phone: Globulin (S) [Mass/Vol] 3.7 g/dL 2.2-4.2 [facility] Work Phone: Laboratory - Hematology and Cell countson 08-18-2021 Erythrocyte distribution width (RBC) [Entitic vol] 43.5 fL 35.1-43.9 [facility] Work Phone: Erythrocyte distribution width (RBC) [Ratio] 13.7 % 11.6-14.6 [facility] Work Phone: Immature granulocytes/100 WBC (Bld) 0.800 % 0.0-0.9 [facility] Work Phone: Comment on above: IG% - Immature Granu locytes (promyelocytes, myelocytes and metamyelocytes) > 1% indicates that a LEFT SHIFT is Present. MCH (RBC) [Entitic mass] 29.1 pg 27.0-32.0 [facility] Work Phone: Nucleated RBC/100 WBC (Bld) [Ratio] 0 % 0-5 [facility] Work Phone: MCHC Auto (RBC) [Mass/Vol]on 08-18-2021 MCHC (RBC) [Mass/Vol] 33.7 g/dL 32-36 [facility] Work Phone: Mucus LM Ql (Urine sed)on Mucus Ql (Urine sed) 0 SEEN /hpf [facility] Work Phone: Nitrite Test strip Ql (U)on 08-18-2021 Nitrite Ql (U) Negative Negative [facility] Work Phone: No Panel Informationon 08-18 Estimated Creatinine Clearance Calc 28.41 ml/min [facility] Work Phone: Estimated GFR (MDRD) Amer 52 mL/min >60 [facility] Work Phone: Comment on above: GFR Calc Estimated GFR (MDRD) Non-Af Amer 43 mL/min >60 [facility] Work Phone: Comment on above: Non- GFR Calc Bed Mix Venous Bld PCO2 at Pat Temp 42.1 mmHg 41-51 [facility] Work Phone: Blood Gas Specimen Type CATHY [facility] Work Phone: Venous Blood Base Excess -8 mmol/L -1.0-3.5 [facility] Work Phone: PO2 venouson 08-18-2021 Oxygen (BldV) [Partial pressure] 22 mm[Hg] 25-40 [facility] Work Phone: Platelets bldon 08-18-2021 Platelets (Bld) [#/Vol] 229 10*3/uL 150-450 [facility] Work Phone: Protein Test strip Ql (U)on 08-18-2021 Protein Ql (U) 30 mg/dl Negative [facility] Work Phone: Serum or plasma acetone roger urement (mass/volume)on 08-18-2021 Acetone [Mass/Vol] MODERATE NEG [facility] Work Phone: Serum or plasma albumin roger urement (mass/volume)on 08-18-2021 Albumin [Mass/Vol] 4.0 g/dL 3.2-5.0 [facility] Work Phone: Serum or plasma albumin/glob ulin mass ratioon 08-18-2021 Albumin/Globulin [Mass ratio] 1.1 {ratio} 0.9-2.4 [facility] Work Phone: Serum or plasma calcium roger urement (mass/volume)on 08-18-2021 Calcium [Mass/Vol] 9.3 mg/dL 8.5-10.1 [facility] Work Phone: Serum or plasma creatinine m easurement (mass/volume)on 08-18-2021 Creatinine [Mass/Vol] 1.27 mg/dL 0.55-1.02 [facility] Work Phone: Comment on above: The validity of the calculated GFR & GFRAA in patients over 70 years has not been determined. Clinical correlation is essential. Serum or plasma urea nitroge n measurement (mass/volume)on 08-18-2021 Urea nitrogen [Mass/Vol] 29 mg/dL 7-18 [facility] Work Phone: Squamous epithelial cells de tection in urine sediment by light microscopyon 08-18-2021 Epithelial cells.squamous LM Ql (Urine sed) 0 SEEN /hpf [facility] Work Phone: Thin prep Papanicolaou smear with manual screeningon 08-18-2021 Thin prep Papanicolaou smear with manual screening 11 5-15 [facility] Work Phone: Thin prep Papanicolaou smear with manual screening 10 U/L 15-37 [facility] Work Phone: Urine blood detectionon 04-0 RBC Ql (U) Negative Negative [facility] Work Phone: RBC Ql (U) 0 SEEN /hpf [facility] Work Phone: Urine clarityon 08-18-2021 Clarity (U) Clear Clear [facility] Work Phone: Urine color determinationon 08-18-2021 Color (U) Yellow Yellow [facility] Work Phone: Urine glucose detectionon Glucose Ql (U) 1000 mg/dl Normal [facility] Work Phone: Urine leukocyte esterase det ection by dipstickon 08-18-2021 Leukocyte esterase Test strip Ql (U) Negative Negative [facility] Work Phone: Urine pHon 08-18-2021 pH (U) 5.0 [pH] [facility] Work Phone: Urine sediment bacteria coun t by microscopy (number/high power field)on 08-18-2021 Bacteria LM.HPF (Urine sed) [#/Area] 0 /[HPF] None Seen [facility] Work Phone: Urine specific gravity measu rementon 08-18-2021 Specific gravity (U) [Rel density] 1.025 [facility] Work Phone: Urobilinogen Auto test strip Ql (U)on 08-18-2021 Urobilinogen Ql (U) Normal mg/dl Normal [facility] Work Phone: Vital signson 08-18-2021 Oxygen saturation in Blood 30 % 50-70 [facility] Work Phone: Whole blood hemoglobin A1c/t otal hemoglobin ratio (mass fraction)on 08-18-2021 HbA1c (Bld) [Mass fraction] 9.4 % 3.8-5.6 [facility] Work Phone: Comment on above: Normal < 5.7 % Predi abetic 5.7 - 6.4 % Diabetic >or= 6.5 % Please note range changes. pH measurementon 08-18-2021 pH (Unsp spec) 7.26 [pH] 7.32-7.42 [facility] Work Phone: Influenza virus A and B and SARS-CoV-2 (COVID-19) Ag panel - Upper respiratory specim SARS-CoV-2 (COVID-19) RNA SHABANA+probe Ql (Resp) [facility] Work Phone: Vital Signs Date Time Vital Sign Value Performing Clinician Faci lity 10-07-2024 08:31-0400 Body height 160.[address] Rg Menchaca MD Work Phone: [facility] 10-07-2024 08:31-0400 Body mass index (BMI) [Ratio] 23.3 kg/m2 Dr. Rg Menchaca MD Work Phone: [facility] 10-07-2024 08:31-0400 Body temperature 97.2 [degF] Dr. Rg Menchaca MD Work Phone: [facility] 10-07-2024 08:31-0400 Body weight 59.[address] Rg Menchaca MD Work Phone: [facility] 10-07-2024 08:31-0400 Diastolic blood pressure 63 mm[Hg] Dr. Rg Menchaca MD Work Phone: [facility] 10-07-2024 08:31-0400 Heart rate 72 /min Dr. Rg Menchaca MD Work Phone: [facility] 10-07-2024 08:31-0400 Respiratory rate 14 /min Dr. Rg Menchaca MD Work Phone: [facility] 10-07-2024 08:31-0400 SaO2% (BldA) [Mass fraction] 96 % Dr. Rg Menchaca MD Work Phone: [facility] 10-07-2024 08:31-0400 Systolic blood pressure 112 mm[Hg] Dr. Rg Menchaca MD Work Phone: 1(117)440-216277 [place] [address] 10-06-2024 08:06-0400 Body height 160.[address] Rg Menchaca MD Work Phone: 7(105)719-041377 [place] [address] 10-06-2024 08:06-0400 Body mass index (BMI) [Ratio] 24.4 kg/m2 Dr. Rg Menchaca MD Work Phone: 0(438)608-644677 [place] [address] 10-06-2024 08:06-0400 Body temperature 97.4 [degF] Dr. Rg Menchaca MD Work Phone: 0(957)059-153877 [place] [address] 10-06-2024 08:06-0400 Body weight 62.[address] Rg Menchaca MD Work Phone: 9(216)446-958177 [place] [address] 10-06-2024 08:06-0400 Diastolic blood pressure 59 mm[Hg] Dr. Rg Menchcaa MD Work Phone: 7(809)545-311377 [place] [address] 10-06-2024 08:06-0400 Heart rate 73 /min Dr. Rg Menchaca MD Work Phone: 1(055)285-817477 [place] [address] 10-06-2024 08:06-0400 Respiratory rate 16 /min Dr. Rg Menchaca MD Work Phone: 0(756)776-561277 [place] [address] 10-06-2024 08:06-0400 SaO2% (BldA) [Mass fraction] 92 % Dr. Rg Menchaca MD Work Phone: 9(220)266-628377 [place] [address] 10-06-2024 08:06-0400 Systolic blood pressure 102 mm[Hg] Dr. Rg Menchaca MD Work Phone: 8(419)562-024277 [place] [address] 09-10-2024 08:20-0400 Body height 160.[address] Rg Menchaca MD Work Phone: [facility] 09-10-2024 08:20-0400 Body mass index (BMI) [Ratio] 24.7 kg/m2 Dr. Rg Menchaca MD Work Phone: [facility] 09-10-2024 08:20-0400 Body temperature 96.8 [degF] Dr. Rg Menchaca MD Work Phone: 5(230)912-048177 [place] [address] 09-10-2024 08:20-0400 Body weight 63.[address] Rg Menchaca MD Work Phone: 7(345)941-059177 [place] [address] 09-10-2024 08:20-0400 Diastolic blood pressure 75 mm[Hg] Dr. Rg Menchaca MD Work Phone: 0(536)115-529477 [place] [address] 09-10-2024 08:20-0400 Heart rate 78 /min Dr. Rg Menchaca MD Work Phone: 7(668)219-286377 [place] [address] 09-10-2024 08:20-0400 Respiratory rate 16 /min Dr. Rg Menchaca MD Work Phone: 0(175)918-280777 [place] [address] 09-10-2024 08:20-0400 SaO2% (BldA) [Mass fraction] 95 % Dr. Rg Menchaca MD Work Phone: 1(268)540-366877 [place] [address] 09-10-2024 08:20-0400 Systolic blood pressure 135 mm[Hg] Dr. Rg Menchaca MD Work Phone: 1(060)499-902877 [place] [address] 09-09-2024 12:17-0400 Body temperature 96 [degF] Dr. Rg Menchaca MD Work Phone: 1(178)900-590453 [place] [address] 09-09-2024 12:17-0400 Diastolic blood pressure 76 mm[Hg] Dr. Rg Menchaca MD Work Phone: 3(479)065-091077 [place] [address] 09-09-2024 12:17-0400 Heart rate 68 /min Dr. Rg Menchaca MD Work Phone: 0(518)821-924977 [place] [address] 09-09-2024 12:17-0400 Respiratory rate 16 /min Dr. Rg Menchaca MD Work Phone: 6(972)144-828577 [place] [address] 09-09-2024 12:17-0400 Systolic blood pressure 117 mm[Hg] Dr. Rg Menchaca MD Work Phone: 9(702)806-752977 [place] [address] 09-09-2024 08:09-0400 Body height 160.[address] Rg Menchaca MD Work Phone: 9(826)212-034777 [place] [address] 09-09-2024 08:09-0400 Body mass index (BMI) [Ratio] 24.7 kg/m2 Dr. Rg Menchaca MD Work Phone: 2(456)652-562677 [place] [address] 09-09-2024 08:09-0400 Body weight 63.[address] Rg Menchaca MD Work Phone: 6(514)724-717077 [place] [address] 09-09-2024 08:09-0400 SaO2% (BldA) [Mass fraction] 94 % Dr. Rg Menchaca MD Work Phone: 3(243)457-148877 [place] [address] 09-08-2024 08:33-0400 Body mass index (BMI) [Ratio] 24.7 kg/m2 Dr. Rg Menchaca MD Work Phone: 3(310)060-655477 [place] [address] 09-08-2024 08:33-0400 Body temperature 96.5 [degF] Dr. Rg Menchaca MD Work Phone: 7(866)399-691077 [place] [address] 09-08-2024 08:33-0400 Body weight 63.[address] Rg Menchaca MD Work Phone: 7(304)291-893977 [place] [address] 09-08-2024 08:33-0400 Diastolic blood pressure 75 mm[Hg] Dr. Rg Menchaca MD Work Phone: 4(330)971-060077 [place] [address] 09-08-2024 08:33-0400 Heart rate 80 /min Dr. Rg Menchaca MD Work Phone: 8(680)540-800477 [place] [address] 09-08-2024 08:33-0400 Respiratory rate 16 /min Dr. Rg Menchaca MD Work Phone: 1(866)526-351177 [place] [address] 09-08-2024 08:33-0400 SaO2% (BldA) [Mass fraction] 93 % Dr. Rg Menchaca MD Work Phone: [facility] 09-08-2024 08:33-0400 Systolic blood pressure 126 mm[Hg] Dr. Rg Menchaca MD Work Phone: [facility] 08-13-2024 10:15-0400 Body height 160.[address] Rg Menchaca MD Work Phone: [facility] 08-13-2024 10:15-0400 Body mass index (BMI) [Ratio] 24.9 kg/m2 Dr. Rg Menchaca MD Work Phone: [facility] 08-13-2024 10:15-0400 Body temperature 96.6 [degF] Dr. Rg Menchaca MD Work Phone: 6(927)236-316758 [address] 08-13-2024 10:15-0400 Body weight 63.[address] Rg Menchaca MD Work Phone: [facility] 08-13-2024 10:15-0400 Diastolic blood pressure 72 mm[Hg] Dr. Rg Menchaca MD Work Phone: [facility] 08-13-2024 10:15-0400 Heart rate 73 /min Dr. Rg Menchaca MD Work Phone: [facility] 08-13-2024 10:15-0400 Respiratory rate 16 /min Dr. Rg Menchaca MD Work Phone: [facility] 08-13-2024 10:15-0400 SaO2% (BldA) [Mass fraction] 95 % Dr. Rg Menchaca MD Work Phone: [facility] 08-13-2024 10:15-0400 Systolic blood pressure 121 mm[Hg] Dr. Rg Menchaca MD Work Phone: [facility] 08-12-2024 08:09-0400 Body height 160.[address] Rg Menchaca MD Work Phone: [facility] 08-12-2024 08:09-0400 Body mass index (BMI) [Ratio] 24.9 kg/m2 Dr. Rg Menchaca MD Work Phone: 3(130)441-186853 [place] [address] 08-12-2024 08:09-0400 Body temperature 96.8 [degF] Dr. gR Menchaca MD Work Phone: 2(986)391-478777 [place] [address] 08-12-2024 08:09-0400 Body weight 63.[address] Rg Menchaca MD Work Phone: 5(601)758-893877 [place] [address] 08-12-2024 08:09-0400 Diastolic blood pressure 59 mm[Hg] Dr. Rg Menchaca MD Work Phone: 2(561)739-845277 [place] [address] 08-12-2024 08:09-0400 Heart rate 79 /min Dr. Rg Menchaca MD Work Phone: 6(178)058-061377 [place] [address] 08-12-2024 08:09-0400 Respiratory rate 16 /min Dr. Rg Menchaca MD Work Phone: 3(160)820-002977 [place] [address] 08-12-2024 08:09-0400 SaO2% (BldA) [Mass fraction] 95 % Dr. Rg Menchaca MD Work Phone: 8(651)160-208777 [place] [address] 08-12-2024 08:09-0400 Systolic blood pressure 104 mm[Hg] Dr. Rg Menchaca MD Work Phone: 1(396)362-837077 [place] [address] 08-11-2024 08:01-0400 Body height 160.[address] Rg Menchaca MD Work Phone: 6(794)003-967377 [place] [address] 08-11-2024 08:01-0400 Body mass index (BMI) [Ratio] 24.9 kg/m2 Dr. Rg Menchaca MD Work Phone: 6(553)969-626977 [place] [address] 08-11-2024 08:01-0400 Body temperature 96.8 [degF] Dr. Rg Menchaca MD Work Phone: 8(347)367-562777 [place] [address] 08-11-2024 08:01-0400 Body weight 63.[address] Rg Menchaca MD Work Phone: 4(546)824-771777 [place] [address] 08-11-2024 08:01-0400 Diastolic blood pressure 73 mm[Hg] Dr. Rg Menchaca MD Work Phone: 2(632)690-776777 [place] [address] 08-11-2024 08:01-0400 Heart rate 83 /min Dr. Rg Menchaca MD Work Phone: 1(620)451-072977 [place] [address] 08-11-2024 08:01-0400 Respiratory rate 16 /min Dr. Rg Menchaca MD Work Phone: 9(423)881-880077 [place] [address] 08-11-2024 08:01-0400 SaO2% (BldA) [Mass fraction] 94 % Dr. Rg Menchaca MD Work Phone: 4(309)299-030277 [place] [address] 08-11-2024 08:01-0400 Systolic blood pressure 116 mm[Hg] Dr. Rg Menchaca MD Work Phone: 5(372)608-941377 [place] [address] 07-16-2024 08:39-0500 Body mass index (BMI) [Ratio] 24.3 kg/m2 Dr. Rg Menchaca MD Work Phone: 7(806)130-491377 [place] [address] 07-16-2024 08:39-0500 Body temperature 96.6 [degF] Dr. Rg Menchaca MD Work Phone: 5(428)137-388077 [place] [address] 07-16-2024 08:39-0500 Body weight 62.[address] Rg Menchaca MD Work Phone: 2(817)422-790977 [place] [address] 07-16-2024 08:39-0500 Diastolic blood pressure 71 mm[Hg] Dr. Rg Menchaca MD Work Phone: 6(488)625-239877 [place] [address] 07-16-2024 08:39-0500 Heart rate 80 /min Dr. Rg Menchaca MD Work Phone: 5(926)839-563277 [place] [address] 07-16-2024 08:39-0500 Respiratory rate 16 /min Dr. Rg Menchaca MD Work Phone: 5(380)389-341377 [place] [address] 07-16-2024 08:39-0500 SaO2% (BldA) [Mass fraction] 96 % Dr. Rg Menchaca MD Work Phone: 6(702)583-020177 [place] [address] 07-16-2024 08:39-0500 Systolic blood pressure 133 mm[Hg] Dr. Rg Menchaca MD Work Phone: 5(348)009-593077 [place] [address] 07-15-2024 13:02-0500 Body temperature 96.5 [degF] Dr. Rg Menchaca MD Work Phone: 8(285)203-426453 [place] [address] 07-15-2024 13:02-0500 Diastolic blood pressure 65 mm[Hg] Dr. Rg Menchaca MD Work Phone: 4(205)105-278177 [place] [address] 07-15-2024 13:02-0500 Heart rate 75 /min Dr. Rg Menchaca MD Work Phone: 1(061)345-060577 [place] [address] 07-15-2024 13:02-0500 Systolic blood pressure 108 mm[Hg] Dr. Rg Menchaca MD Work Phone: 3(607)184-296177 [place] [address] 07-15-2024 08:35-0500 Body mass index (BMI) [Ratio] 24.3 kg/m2 Dr. Rg Menchaca MD Work Phone: 9(469)456-691377 [place] [address] 07-15-2024 08:35-0500 Body weight 62.[address] Rg Menchaca MD Work Phone: 5(413)954-611477 [place] [address] 07-15-2024 08:35-0500 Respiratory rate 16 /min Dr. Rg Menchaca MD Work Phone: 0(480)987-900577 [place] [address] 07-15-2024 08:35-0500 SaO2% (BldA) [Mass fraction] 95 % Dr. Rg Menchaca MD Work Phone: 6(160)882-471077 [place] [address] 07-14-2024 08:22-0500 Body mass index (BMI) [Ratio] 24.3 kg/m2 Dr. Rg Menchaca MD Work Phone: 9(712)484-370258 [address] 07-14-2024 08:22-0500 Body temperature 97.1 [degF] Dr. Rg Menchcaa MD Work Phone: 4(484)327-642377 [place] [address] 07-14-2024 08:22-0500 Body weight 62.[address] Rg Menchaca MD Work Phone: 1(659)966-889877 [place] [address] 07-14-2024 08:22-0500 Diastolic blood pressure 70 mm[Hg] Dr. Rg Menchaca MD Work Phone: 3(948)205-652277 [place] [address] 07-14-2024 08:22-0500 Heart rate 83 /min Dr. Rg Menchaca MD Work Phone: 1(680)188-274277 [place] [address] 07-14-2024 08:22-0500 Respiratory rate 16 /min Dr. Rg Menchaca MD Work Phone: 4(560)402-312577 [place] [address] 07-14-2024 08:22-0500 SaO2% (BldA) [Mass fraction] 95 % Dr. Rg Menchaca MD Work Phone: 3(728)726-715477 [place] [address] 07-14-2024 08:22-0500 Systolic blood pressure 102 mm[Hg] Dr. Rg Menchaca MD Work Phone: 0(731)352-341977 [place] [address] 06-18-2024 08:30-0500 Body temperature 96.9 [degF] Dr. Rg Menchaca MD Work Phone: 5(147)158-553877 [place] [address] 06-18-2024 08:30-0500 Diastolic blood pressure 61 mm[Hg] Dr. Rg Menchaca MD Work Phone: 7(649)231-042177 [place] [address] 06-18-2024 08:30-0500 Heart rate 71 /min Dr. Rg Menchaca MD Work Phone: 4(223)252-838577 [place] [address] 06-18-2024 08:30-0500 Respiratory rate 16 /min Dr. Rg Menchaca MD Work Phone: 8(331)170-875377 [place] [address] 06-18-2024 08:30-0500 SaO2% (BldA) [Mass fraction] 95 % Dr. Rg Menchaca MD Work Phone: 7(884)491-148277 [place] [address] 06-18-2024 08:30-0500 Systolic blood pressure 114 mm[Hg] Dr. Rg Menchaca MD Work Phone: 7(030)824-981177 [place] [address] 06-17-2024 08:43-0500 Body mass index (BMI) [Ratio] 24.3 kg/m2 Dr. Rg Menchaca MD Work Phone: 7(468)874-416477 [place] [address] 06-17-2024 08:43-0500 Body temperature 96.7 [degF] Dr. Rg Menchaca MD Work Phone: 5(104)282-787877 [place] [address] 06-17-2024 08:43-0500 Body weight 62.[address] Rg Menchaca MD Work Phone: 9(212)290-916553 [place] [address] 06-17-2024 08:43-0500 Diastolic blood pressure 62 mm[Hg] Dr. Rg Menchaca MD Work Phone: 1(148)364-096277 [place] [address] 06-17-2024 08:43-0500 Heart rate 78 /min Dr. Rg Menchaca MD Work Phone: 5(274)512-511877 [place] [address] 06-17-2024 08:43-0500 Respiratory rate 16 /min Dr. Rg Menchaca MD Work Phone: 1(855)111-099677 [place] [address] 06-17-2024 08:43-0500 SaO2% (BldA) [Mass fraction] 92 % Dr. Rg Menchaca MD Work Phone: 6(646)689-564677 [place] [address] 06-17-2024 08:43-0500 Systolic blood pressure 108 mm[Hg] Dr. Rg Menchaca MD Work Phone: 3(336)766-521177 [place] [address] 06-16-2024 08:20-0500 Body mass index (BMI) [Ratio] 23.4 kg/m2 Dr. Rg Menchaca MD Work Phone: 2(424)447-421977 [place] [address] 06-16-2024 08:20-0500 Body temperature 97.5 [degF] Dr. Rg Menchaca MD Work Phone: 8(317)346-323077 [place] [address] 06-16-2024 08:20-0500 Body weight [address] Rg Menchaca MD Work Phone: 0(941)669-491677 [place] [address] 06-16-2024 08:20-0500 Diastolic blood pressure 68 mm[Hg] Dr. Rg Menchaca MD Work Phone: 9(343)687-854677 [place] [address] 06-16-2024 08:20-0500 Heart rate 82 /min Dr. Rg Menchaca MD Work Phone: 5(251)576-155377 [place] [address] 06-16-2024 08:20-0500 Respiratory rate 16 /min Dr. Rg Menchaca MD Work Phone: 5(728)029-509377 [place] [address] 06-16-2024 08:20-0500 SaO2% (BldA) [Mass fraction] 95 % Dr. Rg Menchaca MD Work Phone: [facility] 06-16-2024 08:20-0500 Systolic blood pressure 110 mm[Hg] Dr. Rg Menchaca MD Work Phone: [facility] 05-22-2024 09:00-0500 Body temperature 97.2 [degF] Dr. Rg Menchaca MD Work Phone: 8(073)199-873653 [place] [address] 05-22-2024 09:00-0500 Diastolic blood pressure 84 mm[Hg] Dr. Rg Menchaca MD Work Phone: 7(507)288-694253 [place] [address] 05-22-2024 09:00-0500 Heart rate 65 /min Dr. Rg Menchaca MD Work Phone: 5(772)043-560158 [address] 05-22-2024 09:00-0500 Respiratory rate 16 /min Dr. Rg Menchaca MD Work Phone: 3(717)268-251453 [place] [address] 05-22-2024 09:00-0500 SaO2% (BldA) [Mass fraction] 96 % Dr. Rg Menchaca MD Work Phone: 9(270)774-097453 [place] [address] 05-22-2024 09:00-0500 Systolic blood pressure 112 mm[Hg] Dr. Rg Menchaca MD Work Phone: 6(433)060-111853 [place] [address] 05-21-2024 08:39-0500 Body temperature 96.9 [degF] Dr. Rg Menchaca MD Work Phone: 5(466)994-387653 [place] [address] 05-21-2024 08:39-0500 Diastolic blood pressure 60 mm[Hg] Dr. Rg Menchaca MD Work Phone: [facility] 05-21-2024 08:39-0500 Heart rate 74 /min Dr. Rg Menchaca MD Work Phone: [facility] 05-21-2024 08:39-0500 Respiratory rate 16 /min Dr. Rg Menchaca MD Work Phone: [facility] 05-21-2024 08:39-0500 SaO2% (BldA) [Mass fraction] 96 % Dr. Rg Menchaca MD Work Phone: 6(291)827-521853 [place] [address] 05-21-2024 08:39-0500 Systolic blood pressure 105 mm[Hg] Dr. Rg Menchaca MD Work Phone: 5(746)724-299077 [place] [address] 05-19-2024 08:26-0500 Body mass index (BMI) [Ratio] 25 kg/m2 Dr. Rg Menchaca MD Work Phone: 9(408)620-618277 [place] [address] 05-19-2024 08:26-0500 Body temperature 98.6 [degF] Dr. Rg Menchaca MD Work Phone: 9(885)829-201277 [place] [address] 05-19-2024 08:26-0500 Body weight 63.[address] Rg Menchaca MD Work Phone: 2(866)080-968977 [place] [address] 05-19-2024 08:26-0500 Diastolic blood pressure 79 mm[Hg] Dr. Rg Menchaca MD Work Phone: 8(265)508-942777 [place] [address] 05-19-2024 08:26-0500 Heart rate 88 /min Dr. Rg Menchaca MD Work Phone: 3(846)503-743777 [place] [address] 05-19-2024 08:26-0500 Respiratory rate 16 /min Dr. Rg Menchaca MD Work Phone: 7(835)071-333277 [place] [address] 05-19-2024 08:26-0500 SaO2% (BldA) [Mass fraction] 96 % Dr. Rg Menchaca MD Work Phone: 7(065)545-227758 [address] 05-19-2024 08:26-0500 Systolic blood pressure 114 mm[Hg] Dr. Rg Menchaca MD Work Phone: 7(336)259-474977 [place] [address] 04-23-2024 08:22-0500 Body mass index (BMI) [Ratio] 24.5 kg/m2 Dr. Rg Menchaca MD Work Phone: 6(676)792-335777 [place] [address] 04-23-2024 08:22-0500 Body temperature 97 [degF] Dr. Rg Menchaca MD Work Phone: 4(902)088-760977 [place] [address] 04-23-2024 08:22-0500 Body weight 62.[address] Rg Menchaca MD Work Phone: [facility] 04-23-2024 08:22-0500 Diastolic blood pressure 71 mm[Hg] Dr. Rg Menchaca MD Work Phone: [facility] 04-23-2024 08:22-0500 Heart rate 76 /min Dr. Rg Menchaca MD Work Phone: 2(743)981-834653 [place] [address] 04-23-2024 08:22-0500 Respiratory rate 16 /min Dr. Rg Menchaca MD Work Phone: 3(447)251-928477 [place] [address] 04-23-2024 08:22-0500 SaO2% (BldA) [Mass fraction] 95 % Dr. Rg Menchaca MD Work Phone: 7(131)575-161677 [place] [address] 04-23-2024 08:22-0500 Systolic blood pressure 117 mm[Hg] Dr. Rg Mencahca MD Work Phone: 1(482)390-550177 [place] [address] 04-22-2024 08:27-0500 Body mass index (BMI) [Ratio] 24.5 kg/m2 Dr. Rg Menchaca MD Work Phone: 8(229)921-025558 [address] 04-22-2024 08:27-0500 Body temperature 97.2 [degF] Dr. Rg Menchaca MD Work Phone: 6(637)048-127253 [place] [address] 04-22-2024 08:27-0500 Body weight 62.[address] Rg Menchaca MD Work Phone: 1(728)622-378353 [place] [address] 04-22-2024 08:27-0500 Diastolic blood pressure 68 mm[Hg] Dr. Rg Menchaca MD Work Phone: 1(367)113-446558 [address] 04-22-2024 08:27-0500 Heart rate 72 /min Dr. gR Menchaca MD Work Phone: 7(575)601-227058 [address] 04-22-2024 08:27-0500 Respiratory rate 16 /min Dr. Rg Menchaca MD Work Phone: 2(005)845-336658 [address] 04-22-2024 08:27-0500 SaO2% (BldA) [Mass fraction] 97 % Dr. Rg Menchaca MD Work Phone: [facility] 04-22-2024 08:27-0500 Systolic blood pressure 115 mm[Hg] Dr. Rg Menchaca MD Work Phone: [facility] 04-21-2024 08:25-0500 Body mass index (BMI) [Ratio] 24.4 kg/m2 Dr. Rg Menchaca MD Work Phone: [facility] 04-21-2024 08:25-0500 Body temperature 96.5 [degF] Dr. Rg Menchaca MD Work Phone: [facility] 04-21-2024 08:25-0500 Body weight 62.[address] Rg Menchaca MD Work Phone: [facility] 04-21-2024 08:25-0500 Diastolic blood pressure 57 mm[Hg] Dr. Rg Menchaca MD Work Phone: [facility] 04-21-2024 08:25-0500 Heart rate 77 /min Dr. Rg Menchaca MD Work Phone: [facility] 04-21-2024 08:25-0500 Respiratory rate 16 /min Dr. Rg Menchaca MD Work Phone: [facility] 04-21-2024 08:25-0500 SaO2% (BldA) [Mass fraction] 94 % Dr. Rg Menchaca MD Work Phone: [facility] 04-21-2024 08:25-0500 Systolic blood pressure 104 mm[Hg] Dr. Rg Menchaca MD Work Phone: [facility] 02-05-2024 11:19-0400 Diastolic blood pressure 68 mm[Hg] Windy Yuen MD Work Phone: [facility] 02-05-2024 11:19-0400 Heart rate 81 /min Windy Yuen MD Work Phone: [facility] 02-05-2024 11:19-0400 SaO2% (BldA) [Mass fraction] 94 % Windy Yuen MD Work Phone: [facility] 02-05-2024 11:19-0400 Systolic blood pressure 116 mm[Hg] Windy Yuen MD Work Phone: [facility] 09-13-2023 08:36-0400 Body height 160.02 cm [facility] 09-13-2023 08:36-0400 Body temperature 98.1 [degF] [facility] 09-13-2023 08:36-0400 Diastolic blood pressure 68 mm[Hg] [facility] 09-13-2023 08:36-0400 Heart rate 77 /min [facility] 09-13-2023 08:36-0400 Respiratory rate 16 /min [facility] 09-13-2023 08:36-0400 SaO2% (BldA) [Mass fraction] 94 % [facility] 09-13-2023 08:36-0400 Systolic blood pressure 115 mm[Hg] [facility] 09-12-2023 09:03-0400 Body height 160.02 cm [facility] 09-12-2023 09:03-0400 Body mass index (BMI) [Ratio] 23.4 kg/m2 [facility] 09-12-2023 09:03-0400 Body temperature 98.5 [degF] [facility] 09-12-2023 09:03-0400 Body weight 60 kg [facility] 09-12-2023 09:03-0400 Diastolic blood pressure 75 mm[Hg] [facility] 09-12-2023 09:03-0400 Heart rate 70 /min [facility] 09-12-2023 09:03-0400 Respiratory rate 16 /min [facility] 09-12-2023 09:03-0400 SaO2% (BldA) [Mass fraction] 95 % [facility] 09-12-2023 09:03-0400 Systolic blood pressure 130 mm[Hg] [facility] 09-11-2023 08:32-0400 Body height 160.02 cm [facility] 09-11-2023 08:32-0400 Body temperature 98.3 [degF] [facility] 09-11-2023 08:32-0400 Diastolic blood pressure 64 mm[Hg] [facility] 09-11-2023 08:32-0400 Heart rate 77 /min [facility] 09-11-2023 08:32-0400 Respiratory rate 16 /min [facility] 09-11-2023 08:32-0400 SaO2% (BldA) [Mass fraction] 95 % [facility] 09-11-2023 08:32-0400 Systolic blood pressure 109 mm[Hg] [facility] 09-10-2023 08:39-0400 Body height 160.02 cm [facility] 09-10-2023 08:39-0400 Body mass index (BMI) [Ratio] 23.7 kg/m2 [facility] 09-10-2023 08:39-0400 Body temperature 98 [degF] [facility] 09-10-2023 08:39-0400 Body weight 60.78 kg [facility] 09-10-2023 08:39-0400 Diastolic blood pressure 67 mm[Hg] [facility] 09-10-2023 08:39-0400 Heart rate 80 /min [facility] 09-10-2023 08:39-0400 Respiratory rate 16 /min [facility] 09-10-2023 08:39-0400 SaO2% (BldA) [Mass fraction] 96 % [facility] 09-10-2023 08:39-0400 Systolic blood pressure 115 mm[Hg] [facility] 09-09-2023 13:39-0400 Body temperature 97.1 [degF] [facility] 09-09-2023 13:39-0400 Diastolic blood pressure 65 mm[Hg] [facility] 09-09-2023 13:39-0400 Heart rate 72 /min [facility] 09-09-2023 13:39-0400 Respiratory rate 16 /min [facility] 09-09-2023 13:39-0400 SaO2% (BldA) [Mass fraction] 97 % [facility] 09-09-2023 13:39-0400 Systolic blood pressure 110 mm[Hg] [facility] 09-09-2023 08:39-0400 Body height 160.02 cm [facility] 07-31-2023 16:35-0400 Body height 160.7 cm Windy Yuen MD Work Phone: [facility] 07-31-2023 16:35-0400 Body weight 59.88 kg Windy Yuen MD Work Phone: [facility] 07-31-2023 16:35-0400 Diastolic blood pressure 50 mm[Hg] Windy Yuen MD Work Phone: [facility] 07-31-2023 16:35-0400 Heart rate 72 /min Windy Yuen MD Work Phone: [facility] 07-31-2023 16:35-0400 SaO2% (BldA) [Mass fraction] 96 % Windy Yuen MD Work Phone: [facility] 07-31-2023 16:35-0400 Systolic blood pressure 91 mm[Hg] Windy Yuen MD Work Phone: [facility] 04-29-2022 04:53-0500 Diastolic blood pressure 82 mm[Hg] [facility] Work Phone: 04-29-2022 04:53-0500 Heart rate 70 /min [facility] Work Phone: 04-29-2022 04:53-0500 Respiratory rate 16 /min [facility] Work Phone: 04-29-2022 04:53-0500 SaO2% (BldA) [Mass fraction] 98 % [facility] Work Phone: 04-29-2022 04:53-0500 Systolic blood pressure 124 mm[Hg] [facility] Work Phone: 04-28-2022 21:57-0500 Body height 160.02 cm [facility] Work Phone: 04-28-2022 21:57-0500 Body mass index (BMI) [Ratio] 24.1 kg/m2 [facility] Work Phone: 04-28-2022 21:57-0500 Body temperature 96.2 [degF] [facility] Work Phone: 04-28-2022 21:57-0500 Body weight 61.87 kg [facility] Work Phone: 03-01-2022 13:29-0400 Diastolic blood pressure 63 mm[Hg] [facility] Work Phone: 03-01-2022 13:29-0400 Heart rate 77 /min [facility] Work Phone: 03-01-2022 13:29-0400 Respiratory rate 18 /min [facility] Work Phone: 03-01-2022 13:29-0400 SaO2% (BldA) [Mass fraction] 93 % [facility] Work Phone: 03-01-2022 13:29-0400 Systolic blood pressure 102 mm[Hg] [facility] Work Phone: 03-01-2022 10:29-0400 Body temperature 97.2 [degF] [facility] Work Phone: 03-01-2022 10:25-0400 Body mass index (BMI) [Ratio] 21.9 kg/m2 [facility] Work Phone: 03-01-2022 10:25-0400 Body weight 56.1 kg [facility] Work Phone: 11-15-2021 11:23-0400 Body weight 55.79 kg La Nena Lala MD Work Phone: [facility] 11-15-2021 11:23-0400 Diastolic blood pressure 67 mm[Hg] La Nena Lala MD Work Phone: [facility] 06-29-2022 11:23-0400 Heart rate 85 /min La Nena Lala MD Work Phone: [facility] 11-15-2021 11:23-0400 Respiratory rate 16 /min La Nena Lala MD Work Phone: [facility] 11-15-2021 11:23-0400 SaO2% (BldA) [Mass fraction] 99 % La Nena Lala MD Work Phone: [facility] 11-15-2021 11:23-0400 Systolic blood pressure 105 mm[Hg] La Nena Lala MD Work Phone: [facility] 08-30-2021 20:07-0400 Diastolic blood pressure 74 mm[Hg] Dr. Rg Menchaca Work Phone: [facility] Work Phone: 08-30-2021 20:07-0400 Heart rate 69 /min Dr. Rg Menchaca Work Phone: [facility] Work Phone: 08-30-2021 20:07-0400 Respiratory rate 18 /min Dr. Rg Menchaca Work Phone: [facility] Work Phone: 08-30-2021 20:07-0400 SaO2% (BldA) [Mass fraction] 96 % Dr. Rg Menchaca Work Phone: [facility] Work Phone: 08-30-2021 20:07-0400 Systolic blood pressure 94 mm[Hg] Dr. Rg Menchaca Work Phone: [facility] Work Phone: 08-30-2021 18:05-0400 Body height 154.[address] Rg Menchaca Work Phone: [facility] Work Phone: 08-30-2021 18:05-0400 Body mass index (BMI) [Ratio] 25.9 kg/m2 Dr. Rg Menchaca Work Phone: [facility] Work Phone: 08-30-2021 18:05-0400 Body temperature 96.8 [degF] Dr. Rg Menchaca Work Phone: [facility] Work Phone: 08-30-2021 18:05-0400 Body weight 62.[address] Rg Menchaca Work Phone: [facility] Work Phone: 08-19-2021 14:30-0400 Body temperature 98.9 [degF] Dr. Rg Menchaca Work Phone: [facility] Work Phone: 08-19-2021 14:30-0400 Diastolic blood pressure 68 mm[Hg] Dr. Rg Menchaca Work Phone: [facility] Work Phone: 08-19-2021 14:30-0400 Heart rate 88 /min Dr. Rg Menchaca Work Phone: [facility] Work Phone: 08-19-2021 14:30-0400 Respiratory rate 18 /min Dr. Rg Menchaca Work Phone: [facility] Work Phone: 08-19-2021 14:30-0400 SaO2% (BldA) [Mass fraction] 96 % Dr. Rg Menchaca Work Phone: [facility] Work Phone: 08-19-2021 14:30-0400 Systolic blood pressure 104 mm[Hg] Dr. Rg Menchaca Work Phone: [facility] Work Phone: 08-19-2021 12:54-0400 Body height 154.[address] Rg Menchaca Work Phone: [facility] Work Phone: 08-19-2021 12:54-0400 Body weight 53.[address] Rg Menchaca Work Phone: [facility] Work Phone: 08-18-2021 21:27-0400 Body mass index (BMI) [Ratio] 22.2 kg/m2 Dr. Rg Menchaca Work Phone: [facility] Work Phone: 08-18-2021 20:57-0400 Body temperature 98 [degF] [facility] Work Phone: 08-18-2021 20:57-0400 Diastolic blood pressure 62 mm[Hg] [facility] Work Phone: 08-18-2021 20:57-0400 Heart rate 74 /min [facility] Work Phone: 08-18-2021 20:57-0400 Respiratory rate 16 /min [facility] Work Phone: 08-18-2021 20:57-0400 SaO2% (BldA) [Mass fraction] 98 % [facility] Work Phone: 08-18-2021 20:57-0400 Systolic blood pressure 106 mm[Hg] [facility] Work Phone: 08-18-2021 17:31-0400 Body height 159.99 cm [facility] Work Phone: 08-18-2021 17:31-0400 Body mass index (BMI) [Ratio] 21.4 kg/m2 [facility] Work Phone: 08-18-2021 17:31-0400 Body weight 54.9 kg [facility] Work Phone: Encounters Encounter Date Encounter Type Care Provider Facility Start: 11-05-2024 ambulatory Windy Spolter Facilit y:[facility] Start: 11-04-2024 ambulatory Windy Spolter Facilit y:[facility] Start: 11-03-2024 ambulatory Windy Spolter Facilit y:[facility] Start: 10-08-2024 End: 10-08-2024 ambulatory Windy Spolter Facility:[facility] Start: 10-07-2024 End: 10-07-[address] Windy Yuen MD -[facility] Work Phone: Start: 10-07-2024 End: 10-07-[address] Rg Menchaca MD Work Phone: [facility] Work Phone: Start: 10-06-2024 End: 10-06-[address] Windy Yuen MD -[facility] Work Phone: Start: 10-06-2024 End: 10-06-[address] Rg Menchaca MD Work Phone: [facility] Work Phone: Start: 09-10-2024 End: 09-10-[address] Windy Yuen MD -[facility] Work Phone: Start: 09-10-2024 End: 09-10-[address] Rg Menchaca MD Work Phone: [facility] Work Phone: Start: 09-09-2024 End: 09-09-[address] Windy Yuen MD -[facility] Work Phone: Start: 09-09-2024 End: 09-09-[address] Rg Menchaca MD Work Phone: [facility] Work Phone: Start: 09-08-2024 End: 09-08-[address] Windy Yuen MD -[facility] Work Phone: Start: 09-08-2024 End: 09-08-2024 ambulatory [facility] Facility:[facility] Start: 08-13-2024 End: 08-13-[address] Windy Yuen MD -[facility] Work Phone: Start: 08-13-2024 End: 08-13-[address] Rg Menchaca MD Work Phone: [facility] Work Phone: Start: 08-12-2024 End: 08-12-[address] Windy Yuen MD -[facility] Work Phone: Start: 08-12-2024 End: 08-12-[address] Rg Menchaca MD Work Phone: [facility] Work Phone: Start: 08-11-2024 End: 08-11-[address] Windy Yuen MD -[facility] Work Phone: Start: 08-11-2024 End: 08-11-[address] Rg Menchaca MD Work Phone: [facility] Work Phone: Start: 07-16-2024 End: 07-16-[address] Windy Yuen MD -[facility] Work Phone: Start: 07-16-2024 End: 07-16-2024 ambulatory [facility] Facility:[facility] Start: 07-15-2024 End: 07-15-[address] Windy Yuen MD -[facility] Work Phone: Start: 07-15-2024 End: 07-15-2024 ambulatory [facility] Facility:[facility] Start: 07-14-2024 End: 07-14-[address] Windy Yuen MD -[facility] Work Phone: Start: 07-14-2024 End: 07-14-2024 ambulatory [facility] Facility:[facility] Start: 06-18-2024 End: 06-18-[address] Windy Yuen MD -[facility] Work Phone: Start: 06-18-2024 End: 06-18-2024 ambulatory [facility] Facility:[facility] Start: 06-17-2024 End: 06-17-[address] Windy Yuen MD -[facility] Work Phone: Start: 06-17-2024 End: 06-17-2024 ambulatory [facility] Facility:[facility] Start: 06-16-2024 End: 06-16-[address] Windy Yuen MD -[facility] Work Phone: Start: 06-16-2024 End: 06-16-2024 ambulatory [facility] Facility:[facility] Start: 05-22-2024 End: 05-22-[address] Windy Yune MD -[facility] Work Phone: Start: 05-22-2024 End: 05-22-2024 ambulatory [facility] Facility:[facility] Start: 05-21-2024 End: 05-21-[address] Windy Yuen MD -[facility] Work Phone: Start: 05-21-2024 End: 05-21-2024 ambulatory [facility] Facility:[facility] Start: 05-19-2024 End: 05-19-[address] Windy Yuen MD -[facility] Work Phone: Start: 05-19-2024 End: 05-19-2024 ambulatory [facility] Facility:[facility] Start: 04-23-2024 End: 04-23-[address] Windy Yuen MD -[facility] Work Phone: Start: 04-23-2024 End: 04-23-2024 ambulatory [facility] Facility:[facility] Start: 04-22-2024 End: 04-22-[address] Windy Yuen MD -[facility] Work Phone: Start: 04-22-2024 End: 04-22-2024 ambulatory [facility] Facility:[facility] Start: 04-21-2024 End: 04-21-[address] Windy Yuen MD -[facility] Work Phone: Start: 04-21-2024 End: 04-21-2024 ambulatory Windy Spolter Facility:[facility] Start: 03-26-2024 End: 03-26-2024 ambulatory Windy Spolter Facility:[facility] Start: 03-25-2024 End: 03-25-2024 ambulatory Windy Spolter Facility:[facility] Start: 03-24-2024 End: 03-24-2024 ambulatory Windy Spolter Facility:[facility] Start: 02-27-2024 End: 02-27-2024 ambulatory Windy Spolter Facility:[facility] Start: 02-26-2024 End: 02-26-2024 ambulatory Windy Spolter Facility:[facility] Start: 02-25-2024 End: 02-25-2024 ambulatory Windy Spolter Facility:[facility] Start: 02-06-2024 End: 02-06-2024 Telephone encounter Windy Yuen MD Work Phone: Neurology Comment on above: Orders (IVIG) Start: 02-05-2024 End: 02-05-2024 ambulatory WINDY S SPOLTER Facility:[facility] Start: 02-05-2024 End: 02-05-2024 Patient encounter procedure Windy Yuen MD Work Phone: Neurology Comment on above: Stiff person syndrom e Start: 01-31-2024 End: 01-31-2024 ambulatory Windy Spolter Facility:[facility] Start: 01-30-2024 End: 01-30-2024 ambulatory Windy Spolter Facility:[facility] Start: 01-29-2024 End: 01-29-2024 ambulatory Windy Spolter Facility:[facility] Start: 01-28-2024 End: 01-28-2024 ambulatory Windy Spolter Facility:[facility] Start: 01-27-2024 End: 01-27-2024 ambulatory Windy Spolter Facility:[facility] Start: 01-03-2024 End: 01-03-2024 ambulatory Windy Spolter Facility:[facility] Start: 01-02-2024 End: 01-02-2024 ambulatory Windy Spolter Facility:[facility] Start: 01-01-2024 End: 01-01-2024 ambulatory Windy Spolter Facility:[facility] Start: 12-31-2023 End: 12-31-2023 ambulatory Windy Spolter Facility:[facility] Start: 12-30-2023 End: 12-30-2023 ambulatory Windy Spolter Facility:[facility] Start: 12-06-2023 End: 12-06-2023 ambulatory Windy Spolter Facility:[facility] Start: 12-05-2023 End: 12-05-2023 ambulatory Windy Spolter Facility:[facility] Start: 12-04-2023 End: 12-04-2023 ambulatory Windy Spolter Facility:[facility] Start: 12-03-2023 End: 12-03-2023 ambulatory Windy Spolter Facility:[facility] Start: 12-02-2023 End: 12-02-2023 ambulatory Windy Spolter Facility:[facility] Start: 11-24-2023 Telephone encounter Windy Yuen MD Work Phone: Neurology Comment on above: Appointment (Update faxed [facility] [place] for appointment 02/05/24) Start: 11-14-2023 Telephone encounter Windy Yuen MD Work Phone: Neurology Start: 11-08-2023 End: 11-08-2023 ambulatory Windy Spolter Facility:[facility] Start: 11-07-2023 End: 11-07-2023 ambulatory Windy Spolter Facility:[facility] Start: 11-06-2023 End: 11-06-2023 ambulatory Windy Spolter Facility:[facility] Start: 11-05-2023 End: 11-05-2023 ambulatory Windy Spolter Facility:[facility] Start: 11-04-2023 End: 11-04-2023 ambulatory Windy Yuen Facility:[facility] Start: 10-29-2023 Telephone encounter Windy Yuen MD Work Phone: Neurology Comment on above: Appointment (Appoint ment Update Faxed to [place] [place] for 12/17/23) Start: 10-15-2023 Telephone encounter Windy Yuen MD Work Phone: Neurology Comment on above: Patient Update Start: 09-25-2023 Telephone encounter Windy Yuen MD Work Phone: Neurology Comment on above: Appointment Start: 09-18-2023 Telephone encounter Windy Yuen MD Work Phone: Neurology Comment on above: Medication Question Start: 09-13-2023 End: 09-13-2023 ambulatory [facility] Work Phone: Start: 09-13-2023 End: 09-13-2023 Patient encounter procedure [facility] Work Phone: Start: 09-12-2023 End: 09-12-2023 ambulatory [facility] Work Phone: Start: 09-12-2023 End: 09-12-2023 Patient encounter procedure [facility] Work Phone: Start: 09-11-2023 End: 09-11-2023 ambulatory [facility] Work Phone: Start: 09-11-2023 End: 09-11-2023 Patient encounter procedure [facility] Work Phone: Start: 09-10-2023 End: 09-10-2023 ambulatory [facility] Work Phone: Start: 09-10-2023 End: 09-10-2023 Patient encounter procedure [facility] Work Phone: Start: 09-09-2023 End: 09-09-2023 ambulatory [facility] Work Phone: Start: 09-09-2023 End: 09-09-2023 Patient encounter procedure [facility] Work Phone: Start: 08-13-2023 Telephone encounter Windy Yuen MD Work Phone: Family [facility] Start: 07-31-2023 End: 07-31-2023 ambulatory WINDY YUEN Facility:[facility] Start: 07-31-2023 End: 07-31-2023 Patient encounter procedure Windy Yuen MD Work Phone: Neurology Comment on above: Stiff person syndrom e (Primary Dx) Start: 04-30-2023 End: 04-30-2023 ambulatory RG MENCHACA Facility:[facility] Start: 04-30-2023 End: 04-30-2023 ambulatory WINDY Nahomi CHAHALMARCIA Facility:[facility] Start: 2023 Telephone encounter Luis Eduardo Clemons MD Work Phone: Neurology Comment on above: Appointment Start: 06-06-2022 Telephone encounter La Nena Kene i, MD Work Phone: Endocrinology Comment on above: Blood sugar log Start: 06-04-2022 End: 06-04-2022 ambulatory La Nena Lala MD Work Phone: Endocrinology Comment on above: Poorly controlled ty pe 1 diabetes mellitus (HCC) (Primary Dx); Acquired hypothyroidism Start: 06-04-2022 End: 06-04-2022 Telemedicine consultation with patient La Nena Lala MD Work Phone: [facility] Start: 05-31-2022 Telephone encounter La Nena Keen i, MD Work Phone: Endocrinology Comment on above: Appointment (Resched ule ) Start: 04-28-2022 End: 04-29-2022 Emergency department patient visit [facility] Start: 04-18-2022 ambulatory UNKNOWN PROVIDER Facili ty:[facility] Start: 04-18-2022 End: 04-18-2022 Patient encounter procedure Maryan Loving DPEmeli Work Phone: Podiatry Comment on above: Cavovarus deformity of foot, acquired, right (Primary Dx); Other osteoporosis without current pathological fracture; Hammertoe, bilateral Start: 04-18-2022 End: 04-18-2022 Subsequent hospital visit by physician [facility] Work Phone: Radiology Comment on above: Pain [R52] Start: 03-08-2022 ambulatory Facility:[facility] Start: 03-01-2022 End: 03-01-2022 Emergency department patient visit [facility] Start: 11-15-2021 End: 11-16-2021 ambulatory UNKNOWN PROVIDER Facility:[facility] Start: 11-15-2021 End: 11-15-2021 Patient encounter procedure La Nena Lala MD Work Phone: Endocrinology Comment on above: Acquired hypothyroid ism (Primary Dx); Poorly controlled type 1 diabetes mellitus (HCC) Start: 08-30-2021 End: 08-30-2021 Emergency department patient visit Dr. Rg Menchaca Work Phone: [facility] Start: 08-19-2021 Non-patient / Non-visit Dr. Eron Menchaca Work Phone: [facility] Start: 08-18-2021 End: 08-19-2021 Evaluation and management of inpatient [facility]Pro[facility] Care Unit Procedures Date Procedure Procedure Detail Performing Clinician Start: 04-18-2022 Radex foot complete minimum 3 views Maryan Loving DPM Work Phone: Start: 11-15-2021 Hemoglobin A1c/Hemoglobin.total in Blood La Nena Lala MD Work Phone: SARS-CoV-2 & FLU Ant igen (Rapid) Plan of Treatment Date Care Activity Detail Author Start: 09-10-2024 Iv infusion therapy prophylaxis/dx ea hour THER/PROPH/DIAG IV INF [facility] Start: 09-10-2024 Iv infusion therapy/prophylaxis /dx 1st to [facility] Start: 09-10-2024 Therapeutic injectio n iv push each new drug TX/PRO/DX INJ NEW DRUG [facility] Start: 08-11-2024 Iv infusion therapy prophylaxis/dx ea hour THER/PROPH/DIAG IV INF [facility] Start: 08-11-2024 Iv infusion therapy/prophylaxis /dx 1st to 1 hr THER/PROPH/DIAG IV INF [facility] Start: 08-11-2024 Therapeutic injectio n iv push each new drug TX/PRO/DX INJ NEW DRUG [facility] Start: 08-11-2024 End: 08-11-2024 Patient encounter procedure 08/11/2024 12:00 PM EDT Office Visit Neurology [address] [facility] [address] [place] [address] Windy Yuen MD [address] [place] [address] [address] [place] [address] 6 mo Neurology Comment on above: 6 mo Start: 07-16-2024 Iv infusion therapy prophylaxis/dx ea hour THER/PROPH/DIAG IV INF [facility] Start: 07-16-2024 Iv infusion therapy/prophylaxis /dx 1st to 1 hr THER/PROPH/DIAG IV INF [facility] Start: 07-16-2024 Therapeutic injectio n iv push each new drug TX/PRO/DX INJ NEW DRUG [facility] Start: 02-05-2024 End: 02-05-2024 Patient encounter procedure 02/05/2024 11:30 AM EDT Office Visit Neurology [address] [facility] [address] [place] [address] Windy Yuen MD [address] [facility] [address] [place] [address] 3 mo follow up Neurology Comment on above: 3 mo follow up Start: 01-19-2024 Covid-19 Vaccine () Covid-19 Vaccine () [facility] Start: 01-19-2024 Covid-19 Vaccine () Covid-19 Vaccine () [facility] Start: 01-19-2024 Influenza vaccination C [facility] Start: 12-17-2023 End: 12-17-2023 Patient encounter procedure 12/17/2023 12:00 PM EDT Office Visit Neurology [address] [place] [address] Windy Yuen MD [address] [facility] [address] [place] [address] 3 mo follow up- 09/24 mychart message sent to patient. Dr Yuen is out of office-CC Neurology Comment on above: 3 mo follow up- 09/24 mychart message sent to patient. Dr Yuen is out of office-[facility] Start: 11-05-2023 End: 11-05-2023 Patient encounter procedure Neurology Comment on above: 3 mo follow up 3 mo follow up- 09/24 mychart message sent to patient. Dr Yuen is out of office-[facility] Start: 05-20-2023 Advance Directive Discussion Advance Directive Discussion [facility] Start: 05-20-2023 Behavioral Health Screening Behavioral Health Screening [facility] Start: 05-20-2023 Depression Assessment Depression Ass essment [facility] Start: 01-18-2023 Covid-19 Vaccine ( season) Covid-19 Vaccine ( season) [facility] Start: 01-18-2023 Influenza vaccination Influenza Vacc ine (#1) [facility] Start: 11-15-2022 3 comp foot exam completed DIABETIC FOOT EXAM [facility] Start: 11-15-2022 Diabetic foot examination Diabetic Foot Exam [facility] Start: 05-20-2022 ADVANCE DIRECTIVE DISCUSSION ADVANCE DIRECTIVE DISCUSSION [facility] Start: 05-20-2022 DEPRESSION ASSESSMENT DEPRESSION ASS ESSMENT [facility] Start: 02-15-2022 Hemoglobin A1c measurement HbA1C [facility] Start: 02-15-2022 Hemoglobin A1c/Hemoglobin.total in Blood HBA1C [facility] Start: 01-18-2022 Influenza vaccination C [facility] Start: 11-15-2021 End: 01-15-2022 C peptide [Mass/volume] in Serum or Plasma [facility] Work Phone: Comment on above: Expected: 11/15/2021 , Expires: 01/15/2022 Start: 11-15-2021 End: 11-15-2022 Glutamate decarboxylase 65 Ab [Units/volume] in Serum [facility] Work Phone: Comment on above: Expected: 11/15/2021 , Expires: 11/15/2022 Start: 11-15-2021 End: 11-15-2022 INSULIN ANTIBODY BLD [facility] Work Phone: Comment on above: Expected: 11/15/2021 , Expires: 11/15/2022 Start: 11-15-2021 End: 01-15-2022 INSULINOMA ASSOCIATED ANTIBODY 2 [facility] Work Phone: Comment on above: Expected: 11/15/2021 , Expires: 01/15/2022 Start: 11-15-2021 End: 11-15-2022 Pancreatic islet cell Ab [Titer] in Serum [facility] Work Phone: Comment on above: Expected: 11/15/2021 , Expires: 11/15/2022 Start: 11-15-2021 End: 01-15-2022 Thyroxine (T4) free [Mass/volume] in Serum or Plasma [facility] Work Phone: Comment on above: Expected: 11/15/2021 , Expires: 01/15/2022 Start: 05-20-2021 ADVANCE DIRECTIVE DISCUSSION ADVANCE DIRECTIVE DISCUSSION [facility] Start: 05-20-2021 DEPRESSION ASSESSMENT DEPRESSION ASS ESSMENT [facility] Start: 04-17-2021 COVID-19 VACCINE (2 - Pfizer series) COVID-19 VACCINE (2 - Pfizer series) [facility] Start: 04-21-2019 ANNUAL PCP TEAM RN PEDIATRIC ICU ANDREY DISEASE VISIT ANNUAL PCP TEAM CHRONIC DISEASE VISIT [facility] Start: 03-08-2018 Hepatitis B surface antibody level LDL CHOLESTEROL [facility] Start: 2017 RSV Vaccine (1 - 1-d ose 75+ series) RSV Vaccine (1 - 1-dose 75+ series) [facility] Start: 05-21-2016 PNEUMOCOCCAL: 65+ (2 - PPSV23 if available, else PCV20) PNEUMOCOCCAL: 65+ (2 - PPSV23 if available, else PCV20) [facility] Start: 05-21-2016 PNEUMOCOCCAL: 65+ (2 - PPSV23 or PCV20) PNEUMOCOCCAL: 65+ (2 - PPSV23 or PCV20) [facility] Start: 07-16-2015 Pneumococcal Vaccine : 65+ (2 - PPSV23 or PCV20) Pneumococcal Vaccine: 65+ (2 - PPSV23 or PCV20) [facility] Start: 07-16-2015 Pneumococcal Vaccine : 65+ (2 of 2 - PPSV23 or PCV20) Pneumococcal Vaccine: 65+ (2 of 2 - PPSV23 or PCV20) [facility] Start: 07-16-2015 PNEUMOCOCCAL: 65+ (2 - PPSV23 if available, else PCV20) PNEUMOCOCCAL: 65+ (2 - PPSV23 if available, else PCV20) [facility] Start: 2007 BONE DENSITY BONE DENSITY [facility] Start: 2007 Bone Density Screening Bone Density Screening [facility] Start: 2007 Screening for osteoporosis Bone Density Screening [facility] Start: 2002 Hepatitis B Vaccine (1 of 3 - Risk 3-dose series) Hepatitis B Vaccine (1 of 3 - Risk 3-dose series) [facility] Start: 2002 RSV Vaccine (1 - 1-d ose 60+ series) RSV Vaccine (1 - 1-dose 60+ series) [facility] Start: 1992 SHINGRIX VACCINE (1 of 2) SHINGRIX VACCINE (1 of 2) [facility] Start: 1961 Urine microalbumin profile [facility] Start: 1960 Depression Screening Depression Scre ening [facility] Start: 1954 Adult depression screening assessment DEPRESSION SCREENING [facility] Start: 1952 Glaucoma screening Dilated Retinal E xam [facility] Start: 1952 Hepatitis B screening URINE ALBUMIN:CREATININE RATIO [facility] Start: 1952 Hepatitis C antibody , confirmatory test DILATED RETINAL EXAM [facility] Patient Education [facility] Work Phone: Patient referral [facility] Immunizations Immunization Date Immunization Notes Care Provider Fa geoffreyty 08-24-2020 influenza, injectabl e, quadrivalent, preservative free [facility] 08-24-2020 influenza, seasonal, injectable Dr. Rg Menchaca Work Phone: [facility] Work Phone: 08-24-2020 influenza virus vaccine, unspecified formulation Luis Eduardo Clemons Jr., MD Work Phone: [facility] 04-07-2018 Influenza virus vaccine [facility] 03-14-2018 influenza, high dose seasonal, preservative-free La Nena Lala MD Work Phone: [facility] Work Phone: 2017 influenza, high dose seasonal, preservative-free La Nena Lala MD Work Phone: [facility] 05-21-2015 pneumococcal conjuga te vaccine, 13 valent La Nena Lala MD Work Phone: [facility] Payers Date Payer Category Payer Self-pay [id number] 2023 Unknown [id number] 2022 Medicare [facility] MEDICARE [facility] DUAL COMPLETE HMO POS SNP [id number] 2022-Present [phone] [address] [place] [address] Medicare [id number] 2022 Unknown [id number] 2021 Medicaid [facility] MEDICAID MYC ARE [facility] MEDICAID [id number] 2021-Present [phone] [address] [place] [address] Medicaid [id number] 2021 Medicaid [facility] MEDICAID MYC ARE [facility] MEDICAID [id number] 2021-Present [phone] [address] [place] [address] Medicaid [id number] 2021 Unknown [id number] Medicare [id number] Unknown [id number] 2.16.840.1.560869.3.579.2.462 Unknown [id number] 2.16.840.1.151875.3.579.2.462 Unknown [id number] 2.16.840.1.498448.3.579.2.462 Unknown [id number] 2.16.840.1.832671.3.579.2.462 Unknown [id number] 2.16.840.1.231722.3.579.2.462 Unknown [id number] 2.16.840.1.215082.3.579.2.462 Unknown [id number] 2.16.840.1.217693.3.579.2.462 Unknown [id number] 2.16.840.1.816251.3.579.2.462 Unknown [id number] 2.16.840.1.135975.3.579.2.462 Unknown [id number] 2.16.840.1.538415.3.579.2.462 Unknown [id number] 2.16.840.1.931306.3.579.2.462 Unknown [id number] 2.16.840.1.971118.3.579.2.462 Unknown [id number] 2.16.840.1.340098.3.579.2.462 Unknown [id number] 2.16.840.1.655011.3.579.2.462 Unknown [id number] 2.16840.1.178106.3.579.2.462 Unknown [id number] 2.16.840.1.314412.3.579.2.462 Unknown [id number] 2.16840.1.538644.3.579.2.462 Unknown [id number] 2.16840.1.599798.3.579.2.462 Unknown [id number] 2.840.1.857618.3.579.2.462 Unknown [id number] 2.16840.1.704968.3.579.2.462 Unknown [id number] 2.840.1.125874.3.579.2.462 Unknown [id number] 2.840.1.587423.3.579.2.462 Unknown [id number] 2.840.1.041808.3.579.2.462 Unknown [id number] 2.840.1.234967.3.579.2.462 Unknown [id number] 2.840.1.144303.3.579.2.462 Unknown [id number] 2.840.1.107486.3.579.2.462 Unknown [id number] 2.840.1.949019.3.579.2.462 Unknown [id number] 2.16840.1.522581.3.579.2.462 Unknown [id number] 2.16840.1.146545.3.579.2.462 Unknown [id number] 2.16840.1.305460.3.579.2.462 Unknown [id number] 2.16840.1.417135.3.579.2.462 Unknown [id number] 2.16840.1.070803.3.579.2.462 Unknown [id number] 2.16840.1.635537.3.579.2.462 Unknown [id number] 2.16840.1.035811.3.579.2.462 Unknown [id number] 2.16840.1.398175.3.579.2.462 Unknown [id number] 2.840.1.877744.3.579.2.462 Unknown [id number] 2.840.1.345424.3.579.2.462 Unknown [id number] 2.840.1.618180.3.579.2.462 Unknown [id number] 2.840.1.501893.3.579.2.462 Unknown [id number] 2.840.1.190589.3.579.2.462 Unknown [id number] 2.840.1.348149.3.579.2.462 Unknown [id number] 2.840.1.043298.3.579.2.462 Unknown [id number] 2.840.1.380555.3.579.2.462 Unknown [id number] 2.840.1.060143.3.579.2.462 Unknown [id number] 2.840.1.390499.3.579.2.462 Unknown [id number] 2.840.1.687231.3.579.2.462 Unknown [id number] 2.840.1.494536.3.579.2.462 Unknown [id number] 2.840.1.005640.3.579.2.462 Unknown [id number] 2.840.1.517594.3.579.2.462 Unknown [id number] 2.840.1.620907.3.579.2.462 Social History Date Type Detail Facility Start: 08-18-2021 End: 04-28-2022 Tobacco smoking status DCIS Unknown if ever smoked [facility] Start: 11-28-2018 None [facility] Start: 11-28-2018 Senior Living [facility] Start: 11-28-2018 Non-smoker [facility] Start: 1940 Sex Assigned At Female C [facility] Start: 01-07-2018 End: 04-28-2022 Tobacco smoking status NHIS Ex-smoker [facility] Start: 01-07-2018 End: 07-31-2023 Tobacco use and exposure Smokeless tobacco non-user [facility] Start: 1940 Sex Assigned At Not on file [facility] Start: 11-05-2021 End: 04-18-2022 Exposure to SARS-CoV-2 (event) Not sure [facility] History of tobacco use Current smoker [facility] Start: 04-18-2022 End: 02-05-2024 Alcohol intake Ex-drinker (finding) [facility] Start: 11-15-2021 End: 04-18-2022 History of Social function [facility] Start: 11-15-2021 End: 04-18-2022 Tobacco use panel [facility] National Score (1-10 0), lower number is lower risk [address] [facility] Start: 05-31-2022 Gender identity Identifies as female gender (finding) [facility] Start: 05-31-2022 Sexual orientation Heterosexual (fin ding) [facility] Start: 08-12-2024 End: 09-11-2024 Sex Female (finding) [facility] Medical Equipment Procedure Code Equipment Code Equipment Origin al Text Equipment Identifier Dates Check blood suga r 4 times daily as intructed. Dx: E11.9. Insulin: yes [id number] Start: 01-17-2018 Comment on above: Check blood sugar 4 times daily as intructed. Dx: E11.9. Insulin: yes Functional Status Date Assessment Result Facility 08-19-2021 Functional status Activity Abili ty With Assist of 2 [facility] Work Phone: Mental Status Date Assessment Result Facility 10-07-2024 Cognitive function Voice/Name [facility] Work Phone: 10-06-2024 Cognitive function Voice/Name [facility] Work Phone: 09-10-2024 Cognitive function Awake;Alert;A ppropriate;Follow s Commands [facility] Work Phone: 09-09-2024 Cognitive function Awake;Alert;A ppropriate;Follow s Commands [facility] Work Phone: 09-08-2024 Cognitive function Awake;Alert;A ppropriate;Follow s Commands [facility] Work Phone: 08-13-2024 Cognitive function Awake;Alert;A ppropriate;Follow s Commands [facility] Work Phone: 08-12-2024 Cognitive function Awake;Alert;A ppropriate;Follow s Commands [facility] Work Phone: 08-11-2024 Cognitive function Awake;Alert;A ppropriate;Follow s Commands [facility] Work Phone: 07-16-2024 Cognitive function Voice/Name [facility] Work Phone: 07-14-2024 Cognitive function Awake;Alert;A ppropriate;Follow s Commands [facility] Work Phone: 06-18-2024 Cognitive function Awake;Alert;A ppropriate;Follow s Commands [facility] Work Phone: 06-17-2024 Cognitive function Voice/Name [facility] Work Phone: 06-16-2024 Cognitive function Awake;Alert;A ppropriate;Follow s Commands [facility] Work Phone: 05-21-2024 Cognitive function Awake;Alert;A ppropriate;Follow s Commands [facility] Work Phone: 04-23-2024 Cognitive function Awake;Alert;A ppropriate;Follow s Commands [facility] Work Phone: 04-22-2024 Cognitive function Awake;Alert;A ppropriate;Follow s Commands [facility] Work Phone: 04-21-2024 Cognitive function Voice/Name [facility] Work Phone: 09-13-2023 Cognitive function Awake;Alert;A ppropriate;Follow s Commands [facility] Work Phone: 09-12-2023 Cognitive function Level Of Cons ciousness Awake;Alert;Appropriate;Follow s Commands [facility] Work Phone: 09-11-2023 Cognitive function Awake;Alert;A ppropriate;Follow s Commands [facility] Work Phone: 09-10-2023 Cognitive function Voice/Name [facility] Work Phone: 09-09-2023 Cognitive function Awake;Alert;A ppropriate;Follow s Commands [facility] Work Phone: 03-01-2022 Cognitive function Level Of Cons ciousness Awake;Alert;Appropriate;Follow s Commands [facility] Work Phone: 08-30-2021 Cognitive function Level Of Cons ciousness Awake;Alert;Appropriate;Follow s Commands [facility] Work Phone: 08-19-2021 Cognitive function Voice/Name [facility] Work Phone: Clinical Notes 11-15-2021 to 02-06-2024 Telephone Encounter - Kellen Duran LPN - 02/06/2024 8:02 AM EDTTelephone Encounter - Kellen Duran LPN - 02/06/2024 8:02 AM Windy Tidwell MD - 02/05/2024 11:24 AM EDT Note Date & Type Note Facility 02-06-2024 Miscellaneous Notes IVIG order was faxed to Maura at [facility] at [phone] with confirmation. documented in this encounter [facility] 02-06-2024 Telephone encounter Note IVIG order was faxed to Maura at [facility] at [phone] with confirmation[address] [facility] 02-05-2024 Note HNO ID: [id number] Author: WINDY YUEN MD Service: ? Author Type: Physician Type: Progress Notes Filed: 02/05/2024 11:52 Note Text: Romain is here for follow up; her daughter joins us on the phone for the appointment. She continues on baclofen and lorazepam. She is getting IVIG over 5 days every month at [facility] Had some trouble with the last infusion getting veins d/t anxiety They try and keep the IV in for the whole week once it is in. Normally not a problem. This past time was a problem. They are considering some techniques to relax her. She has received 5 monthly cycles of IVIG No reactions to the treatment; tolerates treatment very well. They restarted her PT. The treatments have helped her. She is able to sit up now. Her muscle spasms have reduced. She is not as resistant to passive movement and range of motion Her pain is reduced. She has not had much muscle spasms for the past four months. BP BP 116/68 Pulse 81 SpO2 94% MSE: Alert and oriented to person, place, and time. Speech is fluent without dysarthria or aphasia. Recall is intact to recent and remote events. Attention and concentration are intact. Fund of knowledge is intact. Fixed deformity at the right ankle, inverted at ankle joint. MSK: tone increased bilateral lower extremities; Deltoid Triceps Biceps Wrist ext. Hand intrinsic Hip flexion Knee flexion Knee Ext. Damion. Flex Pl. 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 Currently she is taking baclofen 15 mg tid; and lorazepam 0.5 mg daily; no significant pain symptoms but continued stiffness symptoms. Despite medical treatment, she has continued bilateral LE weakness, trouble with core rigidity, and spasm with activities and transfers inhibiting her QOL. She has medical neccesity for IVIG since her symptoms have not responded adequately to baclofen of lorazepam treatment as noted above. At last appointment we discussed IVIG treatment; would be more than reasonable to trial IVIG x 3 months w/ goal of improving QOL; reduced muscle spasms, help with transfers daughter has confirmed that she can receive the treatments at [facility]. She is now s/p 5 monthly cycles of IVIG: She has experienced remarkable improvement of her symptoms since initiating IVIG treatments: She has not been having spasms anymore She is able to sit in her chair now She has re-started PT. Will plan to consolidate treatment to 0.66 g/kg daily over three days (same total dose of 2g/kg IBW) Fax order to Maura at [facility] at [phone] RTC 6 months [facility] 02-05-2024 History of Presen t illness Narrative Images from the original note were not included. Romain is here for follow up; her daughter joins us on the phone for the appointment. She continues on baclofen and lorazepam. She is getting IVIG over 5 days every month at [facility] Had some trouble with the last infusion getting veins d/t anxiety They try and keep the IV in for the whole week once it is in. Normally not a problem. This past time was a problem. They are considering some techniques to relax her. She has received 5 monthly cycles of IVIG No reactions to the treatment; tolerates treatment very well. They restarted her PT. The treatments have helped her. She is able to sit up now. Her muscle spasms have reduced. She is not as resistant to passive movement and range of motion Her pain is reduced. She has not had much muscle spasms for the past four months. BP BP 116/68 Pulse 81 SpO2 94% MSE: Alert and oriented to person, place, and time. Speech is fluent without dysarthria or aphasia. Recall is intact to recent and remote events. Attention and concentration are intact. Fund of knowledge is intact. Fixed deformity at the right ankle, inverted at ankle joint. MSK: tone increased bilateral lower extremities; Deltoid Triceps Biceps Wrist ext. Hand intrinsic Hip flexion Knee flexion Knee Ext. Damion. Flex Pl. 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 Currently she is taking baclofen 15 mg tid; and lorazepam 0.5 mg daily; no significant pain symptoms but continued stiffness symptoms. Despite medical treatment, she has continued bilateral LE weakness, trouble with core rigidity, and spasm with activities and transfers inhibiting her QOL. She has medical neccesity for IVIG since her symptoms have not responded adequately to baclofen of lorazepam treatment as noted above. At last appointment we discussed IVIG treatment; would be more than reasonable to trial IVIG x 3 months w/ goal of improving QOL; reduced muscle spasms, help with transfers daughter has confirmed that she can receive the treatments at [facility]. She is now s/p 5 monthly cycles of IVIG: She has experienced remarkable improvement of her symptoms since initiating IVIG treatments: She has not been having spasms anymore She is able to sit in her chair now She has re-started PT. Will plan to consolidate treatment to 0.66 g/kg daily over three days (same total dose of 2g/kg IBW) Fax order to Maura at [facility] at [phone] RTC 6 months documented in this encounter [facility] 11-24-2023 Telephone encounter Note Patient's appointment changed from 12/17/23 to 02/05/[address] Yuen being out of the office. Appointment details faxed as requested by daughterNyla, so patient will have transportation for appointment. Faxed to [facility] [place]: [phone] Confirmation ok. [facility] 11-24-2023 Miscellaneous Notes Patient's appointment changed from 12/17/23 to 02/05/[address] Spolter being out of the office. Appointment details faxed as requested by daughterNyla, so patient will have transportation for appointment. Faxed to [facility] [place]: [phone] Confirmation ok. documented in this encounter [facility] 10-29-2023 Telephone encounter Note Faxed appointment change/reminder to [facility] [place]: [phone]. Confirmation ok. Appointment date for 12/17/23 arrive by 11:45am. [facility] 10-29-2023 Miscellaneous Notes Faxed appointment change/reminder to [facility] [place]: [phone]. Confirmation ok. Appointment date for 12/17/23 arrive by 11:45am. documented in this encounter [facility] 10-15-2023 Telephone encounter Note Pt daughter would like to speak to Dr Yuen via phone regarding noted changed in mother since starting her injections with her Insulin levels as well as Muscle Spasms [facility] 10-15-2023 Miscellaneous Notes Pt daughter would like to speak to Dr Yuen via phone regarding noted changed in mother since starting her injections with her Insulin levels as well as Muscle Spasms documented in this encounter [facility] 09-18-2023 Telephone encounter Note Spoke to Maura and relayed message from provider, she voiced understanding at this time and will let patient and daughter know. [facility] 09-18-2023 Miscellaneous Notes Spoke to Maura and relayed message from provider, she voiced understanding at this time and will let patient and daughter know. We should keep her on the same schedule for 3 cycles; if she tolerates the infusion well at that dose after 3 cycles we can try a new dosing schedule that is condensed Since we have authorization for the current dosing regimen; I don't want to change things until we establish that she responds to treatment and that she tolerates the medication well. Per Maura from [facility], this patient's daughter would like to have her IVIG dose changed to a higher dose for a shorter duration. States this was discussed with Dr. Yuen previously. Please advise if this is correct and if so, please call Maura back at [phone]. A new order and authorization will be needed. documented in this encounter [facility] 09-18-2023 Telephone encounter Note We should keep her on the same schedule for 3 cycles; if she tolerates the infusion well at that dose after 3 cycles we can try a new dosing schedule that is condensed Since we have authorization for the current dosing regimen; I don't want to change things until we establish that she responds to treatment and that she tolerates the medication well. [facility] 09-18-2023 Telephone encounter Note Per Maura from [facility], this patient's daughter would like to have her IVIG dose changed to a higher dose for a shorter duration. States this was discussed with Dr. Yuen previously. Please advise if this is correct and if so, please call Maura back at [phone]. A new order and authorization will be needed. [facility] 08-13-2023 Miscellaneous Notes Faxed office notes, demographic sheet, copy of insurance, we don't have a copy of insurance cards to [phone]. documented in this encounter [facility] 07-31-2023 Note HNO ID: [id number] Author: WINDY YUEN MD Service: ? Author Type: Physician Type: Progress Notes Filed: 07/31/2023 17:08 Note Text: Romain is here for follow up; her daughter joins us on the phone for the appointment. She continues on baclofen and lorazepam. They started spreading the dosing out more of balcofen, spacing it out She is still very stiff and sore Hard for her to be in a chair for long periods of a time She is able to get the IVIG at [facility]. Office notes and IVIG order was faxed to Maura at [facility] at [phone] with confirmation. Our office Spoke to Maura and she stated that the patient will need documentation showing a failure or inability to tolerate the baclofen, in order to get approved for Gammagard. And needs progress note faxed to their office at [phone]. It seems like there was a misunderstanding; the rx was never sent to her insurance for approval. BP 91/50 Pulse 72 Ht 160.7 cm (5' 3.25) Wt 59.9 kg (132 lb) SpO2 96% BMI 23.20 kg/m? MSE: Alert and oriented to person, place, and time. Speech is fluent without dysarthria or aphasia. Recall is intact to recent and remote events. Attention and concentration are intact. Fund of knowledge is intact. Fixed deformity at the right ankle, inverted at ankle joint. MSK: tone increased bilateral lower extremities; Deltoid Triceps Biceps Wrist ext. Hand intrinsic Hip flexion Knee flexion Knee Ext. Damion. Flex Pl. 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 Currently she is taking baclofen 15 mg tid; and lorazepam 0.5 mg daily; no significant pain symptoms but continued stiffness symptoms. Despite medical treatment, she has continued bilateral LE weakness, trouble with core rigidity, and spasm with activities and transfers inhibiting her QOL. She has medical neccesity for IVIG since her symptoms have not responded adequately to baclofen of lorazepam treatment as noted above. We discussed IVIG treatment; would be more than reasonable to trial IVIG x 3 months w/ goal of improving QOL; reduced muscle spasms, help with transfers daughter has confirmed that she can receive the treatments at [facility]. Will send off IVIG rx for insurance approval. RTC 3 months [facility] 07-31-2023 History of Presen t illness Narrative Images from the original note were not included. Romain is here for follow up; her daughter joins us on the phone for the appointment. She continues on baclofen and lorazepam. They started spreading the dosing out more of balcofen, spacing it out She is still very stiff and sore Hard for her to be in a chair for long periods of a time She is able to get the IVIG at [facility]. Office notes and IVIG order was faxed to Maura at [facility] at [phone] with confirmation. Our office Spoke to Maura and she stated that the patient will need documentation showing a failure or inability to tolerate the baclofen, in order to get approved for Gammagard. And needs progress note faxed to their office at [phone]. It seems like there was a misunderstanding; the rx was never sent to her insurance for approval. BP 91/50 Pulse 72 Ht 160.7 cm (5' 3.25) Wt 59.9 kg (132 lb) SpO2 96% BMI 23.20 kg/m MSE: Alert and oriented to person, place, and time. Speech is fluent without dysarthria or aphasia. Recall is intact to recent and remote events. Attention and concentration are intact. Fund of knowledge is intact. Fixed deformity at the right ankle, inverted at ankle joint. MSK: tone increased bilateral lower extremities; Deltoid Triceps Biceps Wrist ext. Hand intrinsic Hip flexion Knee flexion Knee Ext. Damion. Flex Pl. 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 Currently she is taking baclofen 15 mg tid; and lorazepam 0.5 mg daily; no significant pain symptoms but continued stiffness symptoms. Despite medical treatment, she has continued bilateral LE weakness, trouble with core rigidity, and spasm with activities and transfers inhibiting her QOL. She has medical neccesity for IVIG since her symptoms have not responded adequately to baclofen of lorazepam treatment as noted above. We discussed IVIG treatment; would be more than reasonable to trial IVIG x 3 months w/ goal of improving QOL; reduced muscle spasms, help with transfers daughter has confirmed that she can receive the treatments at [facility]. Will send off IVIG rx for insurance approval. RTC 3 months documented in this encounter [facility] 04-30-2023 Note HNO ID: [id number] Author: WINDY YUEN MD Service: ? Author Type: Physician Type: Progress Notes Filed: 05/27/2023 20:46 Note Text: HPI: This is Ms. Romain Mcdermott a 83 year old female from who presents to the [facility] neurology department with a chief complaint of stiff man syndrome evaluation Referring provider: No referring provider defined for this encounter. Som ab > 120 1 year ago. HX of DM1 Her initial symptoms were having issues w/ loud sounds. She would have a strange reaction. She is unable to sit up straight; she needs to tilt her shower chair back. She is unable to walk, her right foot is bent inwards She has been non-ambulatory for the past 6 years. She gets around w/ wheelchair With sitting up she feels like she is sliding. Arms are fine, very strong, no issues w/ balance or coordination. No bulbar symptoms. No significant pain symptoms. She went to the SNF about 3 years ago d/t severe body spasms. Body was tensing up like ironing board Living at [facility]; [facility] [place]; has been there for past four years. She is happy there. They discontinued her PT. She is currently taking baclofen 15 mg bid Most recent a1c 9.0; tsh wnl PMH: PAST MEDICAL HISTORY PAST MEDICAL HISTORY Diagnosis Date DM type 1 (diabetes mellitus, type 1) ([facility]) Hypothyroidism Medications: CURRENT MEDICATIONS Current Outpatient Medications Medication Sig Dispense Refill insulin detemir U-100 (LEVEMIR FLEXTOUCH U-100 INSULIN) 100 unit/mL (3 mL) injection pen Inject 27 Units subcutaneously every morning. 5 Each 2 insulin aspart U-100 (NOVOLOG FLEXPEN U-100 INSULIN) 100 unit/mL (3 mL) Sliding scale 151-200, give 1 unit 201-250, give 2 units 251-300, give 3 units 301-350, give 4 units > 350, give 5 units and call provider 5 Each 3 SENNA-DOCUSATE SODIUM ORAL Take by mouth. ondansetron (ZOFRAN) 4 mg tablet Take by mouth every 8 hours as needed for nausea/vomiting. LORazepam (ATIVAN) 0.5 mg Take 0.25 mg by mouth every morning. baclofen (LIORESAL) 10 mg tablet Take 15 mg by mouth three times daily. bisacodyl (DULCOLAX) 10 mg supp Bisacodyl Active 10 MG RC DAILY August 18, 2021 8:41pm calcium carbonate 500 mg calcium (1,250 mg) chewable tablet Take by mouth. insulin detemir U-100 (LEVEMIR) 100 unit/mL (3 mL) injection pen Insulin Detemir U-100 (Levemir Flextouch U-100 Insuln) 100 UNITS/ML insulin pen Active 29 UNITS SC DAILY April 21, 2018 12:38pm COMPOUNDED PRESCRIPTION 1 Wheelchair with removable foot rests. ICD 10: R53.1, M79.671, M21.6X1 1 Each 0 blood sugar diagnostic (RELION PRIME TEST STRIPS) test strip Check blood sugar 4 times daily as intructed. Dx: E11.9. Insulin: yes 400 Strip 3 Blood-Glucose Meter (RELION PRIME METER) misc 1 Each four times daily. Dx: E11.9. Insulin: yes 1 Each 0 levothyroxine (SYNTHROID) 75 mcg tablet Take 1 tablet by mouth once daily. Take on empty stomach. For Thyroid 90 tablet 1 aspirin 81 mg chewable tablet Take 1 tablet by mouth once daily. 90 tablet 1 No current facility-administered medications for this visit. Allergies: ALLERGIES ALLERGIES No Known Allergies Social History: SOCIAL HISTORY Social History Tobacco Use Smoking status: Former Smokeless tobacco: Never Substance Use Topics Alcohol use: Not Currently Family History: FAMILY HISTORY FAMILY HISTORY Problem Relation Age of Onset Cancer Mother No Known Problems Father ROS: A complete review of systems was performed. All systems negative other than those mentioned in HPI. Physical Exam: Vitals: BP 112/64 (BP Site: Left Arm, BP Position: Supine, BP Cuff Size: Regular Adult) Pulse 84 Ht 160.7 cm (5' 3.25) Wt 55.3 kg (122 lb) SpO2 96% BMI 21.44 kg/m? General appearance: no acute distress. Neurological Exam: MSE: Alert and oriented to person, place, and time. Speech is fluent without dysarthria or aphasia. Recall is intact to recent and remote events. Attention and concentration are intact. Fund of knowledge is intact. CN: Pupils equally round and reactive to light. Extraoccular muscles intact. Visual tilley full. Facial muscles symmetric. Hearing intact to voice. Fixed deformity at the right ankle, inverted at ankle joint. MSK: tone increased bilateral lower extremities; Deltoid Triceps Biceps Wrist ext. Hand intrinsic Hip flexion Knee flexion Knee Ext. Damion. Flex Pl. flex Right 5 5 5 5 5 3 3 3 3 3 Left 5 5 5 5 5 3 3 3 5 5 Sensation: Intact to light touch, pinprick, and vibration throughout. Reflexes: R L Biceps 2 2 Triceps 2 2 Brachioradialis 2 2 Patellar 3 3 Achilles NA 2 Toes withdrawal bilaterally Cerebellar: Intact finger to nose bilaterally. Gait: Not tested. Labs: WBC Date Value Ref Range Status 12/24/2021 8.17 3.70 - 11.00 k/uL Final Hemoglobin Date Value Ref Range Status 12/24/2021 13.7 11.5 - 15.5 g/dL Final Hematocrit Date Value Ref Range Status 12/24/2021 (more content not included)... [facility] 03-25-2023 Miscellaneous Notes The listed home phone number for the patient is her daughter Nyla's phone. Nyla was notified of the canceled appointment and new appointment. The daughter was instructed that the patient must have someone accompany her to the appointment. The patient resides at the [facility]. [place]. [phone] I called the [facility] and spoke with Mona and the nurse Bailey. Bailey was instructed on the change of appointments, providers, and location. The nurse notified that the patient must have someone with her at the appointment. The daughter will attend the appointment if she can ride with the transport. The nurse was told the patient must have someone with her during the appointment to talk with the provider. The appointment reminder was faxed to the [facility]. TC to daughter regarding upcoming appointment with Dr. Clemons. 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 Pt will need to be seen by neuromuscular for treatment and care, per . Samira Vieira LPN documented in this encounter [facility] 07-20-2022 Miscellaneous Notes completed a Virtual Visit with patient and facility. CLOSED Called patients daughter Nyla and left to call back office at [phone]. Wanted to check and see how her mother is doing sand set up virtual visit. We need to know where her mom is staying (what facility?) and does she have a phone number/ nurse name to contact? Patient was scheduled with on 05/30/22 at 4:20 pm. The Appointment was from 4:20 to 4:40 pm. At 4:40 pm we attempted to call the number on file which was her daughter Nyla. The patient was being brought here by transportation set up by her facility she resides at. The daughter stated she was picked up at 3:45 pm [address] The drive takes at least 45 minutes so she does not know why they arranged for this garbage pick up worker time because she would have been late anyways. After the daughter calling [facility] multiple times they could not tell her the name of the Transportation company and they could not confirm what providers office they were taking her to. At 5 pm I spoke with daughter and with the patient not being here and no one knows where she is we agreed to speak the next day 05/31/22 and make arrangements to do a virtual visit with a staff member at the facility. Dr. Lala is willing to assist due to this appointment is important. Will call daughter after 9 am to make arrangements. Nyla [phone] documented in this encounter [facility] 06-12-2022 Miscellaneous Notes Faxed new orders to the [facility] at [phone],transmission ok CLOSED Addended by: LA NENA LALA on: 06/12/2022 01:27 PM Modules accepted: Orders Reviewed the blood sugars. She is having low blood sugars in the morning, and mostly high blood sugars with meals, and especially at bedtime. Please call the long term to let them know of the following changes: -Lower the Levemir to 27 units once a day in the morning -NovoLog based on sliding scale with breakfast, lunch and dinner. If blood sugar is: 151-200, give 1 unit 201-250, give 2 units 251-300, give 3 units 301-350, give 4 units > 350, give 5 units and call provider Thank you HH Blood sugar readings on docs desk for review. Please advise, thanks. documented in this encounter [facility] 06-04-2022 Instructions La Nena Lala MD - 06/04/2022 3:04 PM EST Images from the original note were not included. - Please do blood tests to check TSH, free T4 and A1c, and fax the results to us on [phone] - Please fax the glucose values from the last 2 weeks to us - Do not eat more than 60 g of carbs per meal. documented in this encounter [facility] 06-04-2022 History of Presen t illness Narrative ENDOCRINOLOGY CLINIC NOTE Ms. Mcdermott is a 82 year old female with T1DM and hypothyroidism presented for follow-up of hypothyroidism and diabetes. She presented with her daughter HPI She stays in a long term due to R foot deformity. She saw a laundry route driver before and was told that she had old changes and no intervention was done. They were hoping to see someone for a second opinion to see if they can help with the foot deformity as this is what is keeping her in the long term. 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 Hypothyroidism: She takes levothyroxine 75 mcg daily. Labs in 10/2021 showed TSH 0.073 and FT4 1.9. T1DM: She was diagnosed with diabetes in her 50s when her blood sugars was 500s. Metfomrin was started but was then told she has type 1 diabetes and was. She had 3 DKAs, last one was 5 years. She has positive SOM 65 antibody and her C-peptide is undetectable in 10/2021. She was admitted to the hospital with [facility] due to dehydration 4 months ago. Her diet has not been optimal at the long term. A1c: 11/15/21 11:30 Hemoglobin A1C (POCT) 8.1 ! 9.4% in 08/2021 Current regimen: Levemir 29 units in the morning NovoLog based on a sliding scale 1 unit for every 50 starting at 170 Glucose monitoring: She has received the freestyle jeremiah and is being managed by the nurses at the long term. I did not have the glucose data to make changes today Diet: She eats 3 meals but the options are limited in the long term Complications: Retinopathy: 6 months ago. She has cataract but was not told about retinopathy Nephropathy: GFR 89 in 12/2021 Neuropathy: she has spasms and stiffness as mentioned above CVS: lipid profile: No recent lipid profile PAST MEDICAL HISTORY Diagnosis Date DM type 1 (diabetes mellitus, type 1) (HCC) Hypothyroidism PAST SURGICAL HISTORY Procedure Laterality Date CYSTOSCOPY Right 06/24/2015 Dr. True Cantu OOPHORECTOMY, PART/TOTAL UNILAT/BILAT PAST SURGICAL HISTORY OF Right 07/28/2015 cystoscopy, ureteroscopy; retrograde pyelogram; ureteral stent insertion-Dr. True Cantu PROC RM-BRONCHOSCOPY 10/22/2016 Dr. Josselyn Alexander FAMILY HISTORY Problem Relation Age of Onset Cancer Mother No Known Problems Father Social History Tobacco Use Smoking status: Former Smokeless tobacco: Never Substance Use Topics Alcohol use: Not Currently (Not in a hospital admission) Allergies As of Date: 06/04/2022 (No Known Allergies) Fully Assessed 04/18/2022 Current Outpatient Medications Medication Sig Dispense Refill SENNA-DOCUSATE SODIUM ORAL Take by mouth. ondansetron (ZOFRAN) 4 mg tablet Take by mouth every 8 hours as needed for nausea/vomiting. LORazepam (ATIVAN) 0.5 mg Take 0.25 mg by mouth every morning. baclofen (LIORESAL) 10 mg tablet Take 15 mg by mouth three times daily. bisacodyl (DULCOLAX) 10 mg supp Bisacodyl Active 10 MG RC DAILY August 18, 2021 8:41pm calcium carbonate 500 mg calcium (1,250 mg) chewable tablet Take by mouth. levothyroxine (SYNTHROID) 75 mcg tablet DAILY insulin detemir U-100 (LEVEMIR) 100 unit/mL (3 mL) injection pen Insulin Detemir U-100 (Levemir Flextouch U-100 Insuln) 100 UNITS/ML insulin pen Active 29 UNITS SC DAILY April 21, 2018 12:38pm COMPOUNDED PRESCRIPTION 1 Wheelchair with removable foot rests. ICD 10: R53.1, M79.671, M21.6X1 1 Each 0 blood sugar diagnostic (RELION PRIME TEST STRIPS) test strip Check blood sugar 4 times daily as intructed. Dx: E11.9. Insulin: yes 400 Strip 3 Blood-Glucose Meter (RELION PRIME METER) misc 1 Each four times daily. Dx: E11.9. Insulin: yes 1 Each 0 insulin aspart U-100 (NOVOLOG FLEXPEN U-100 INSULIN) 100 unit/mL inpn 1 unit for 15 g of carbs with meals. 5 Pen 3 insulin detemir U-100 (LEVEMIR FLEXTOUCH U-100 INSULN) 100 unit/mL (3 mL) inpn injection Inject 25 Units subcutaneously every morning. 5 Pen 2 levothyroxine (SYNTHROID) 75 mcg tablet Take 1 tablet by mouth once daily. Take on empty stomach. For Thyroid 90 tablet 1 aspirin 81 mg chewable tablet Take 1 tablet by mouth once daily. 90 tablet 1 No current facility-administered medications for this visit. COMPLETE REVIEW OF SYSTEMS: Answers submitted by the patient for this visit: Endocrine Review of Systems (Submitted on 05/31/2022) Fatigue: Yes Night Sweats: No Recent Unintentional Weight Change: No Skin Color Changes: No Post-Nasal Drip: No Thyroid Pain (lower neck): No Trouble Swallowing: No Vision Disturbance: No Chest Pain: No Leg Swelling: No Blood Clots?: No Leg Pain while walking?: No Difficulty Breathing?: No Heartburn: No Nausea: No Vomiting?: No Diarrhea: No Constipation: No Abdominal Pain: No Bone Pain?: No Muscle Aches: Yes Muscle Weakness: No Joint Pain or Stiffness: Yes Headaches: No Dizziness: No Numbness?: No Urgency to Urinate?: No Increased Urination?: No Slow or Small Urine Stream?: No Are your menstrual cycles regular?: No Are your menstrual cycles irregular?: No Have your menstrual cycles stopped?: Yes Flushing?: No Hot Flashes?: No Increased Thirst: No Change in Body Hair?: No Cold Intolerance: No Heat Intolerance?: No Core Review of Systems (Submitted on 05/31/2022) Night Sweats: No Recent Unintentional Weight Change: No Vision Disturbance: No Chest Pain: No Leg Swelling: No Difficulty Breathing?: No Nausea: No Diarrhea: No Muscle Aches: Yes Joint Pain or Stiffness: Yes Headaches: No Dizziness: No Fever : No Nasal Congestion: No Hearing Loss: No A Cough: No Irregular Heart Beat: No Black Tarry Stools: No Difficulty Urinating?: No Awaken at Night More Than Once to Urinate?: No Leg or Foot Discomfort at Night?: Yes A Rash: No Memory Loss: No Seizures: No PHYSICAL EXAM: There were no vitals filed for this visit. General: NAD, alert and cooperative Previous exam HEENT: EOMI, no proptosis/stare. Neck: supple with full ROM. No thyromegaly or palpable nodules Cardiovascular: RRR, +S1 and S2, no MRG appreciated Lungs: Clear to auscultation bilaterally Abdomen: soft, non-tender, non-distended Extremities: No LE oedema Neuro: Alert and oriented Psych: Normal affect Foot exam 11/15/2021: Noted right ankle fixed abduction. Nonpalpable pedal pulses bilaterally. Normal monofilament and vibration sensation bilaterally Labs: Limited access to labs through care everywhere 08/2021 NA 138 K4.2 Hgb 12.9 Assessment and Recommendations: Ms. Mcdermott is a 82-year-old woman presented with her daughter for follow-up T1DM. Most of the conversation was with the daughter, and the patient was laying in bed. She has been staying in a long term for the last couple of years due to an acquired right foot deformity and lower extremity spasms. 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 Dr. Menchaca has been involved in changing her regimen. It seems that her glucose levels have overall been more reasonable recently. We also discussed dietary changes including not to exceed 60 g of carbohydrate per meal, and instructions were provided in the after visit summary I asked them to fax the glucose readings from the last 2 weeks to assess. She will also need an A1c check. She has received the freestyle jeremiah and has been happy with the experience overall Hypothyroidism: We will continue levothyroxine 75 mcg daily. Her TSH was slightly suppressed. We will check her TFTs now Once we get the results and the glucose readings, we will contact them to give the instructions. retirement phone number is [phone] Some of the above has been copied from prior documentation on 11/15/2021 but foster elements reviewed, confirmed, and/or updated by me (La Nena Lala MD) on 06/04/2022 I spent a total of 40 minutes on the date of the service which included preparing to see the patient, [id number] patient care, completing clinical documentation, obtaining and/or reviewing separately obtained history, and counseling and educating the patient/family/caregiver. Virtual Visit (Audio/Visual)I have discussed the nature of this visit with the patient which will occur via [facility] (Phone, Virtual Visit) and she agrees to proceed with this interaction. La Nena Lala MD documented in this encounter [facility] 04-18-2022 Note HNO ID: [id number] Author: AVELINO Kahn Service: Radiology Author Type: Technologist Type: Progress Notes Filed: 04/18/2022 3:06 PM Note Text: Radiology Service Progress Note PATIENT NAME: Romain Mcdermott DATE OF SERVICE: April 18, 2022 TIME: 3:06 PM PATIENT IDENTITY VERIFICATION COMPLETED USING TWO (2) IDENTIFIERS: Name and Date of confirmed by patient verbally. FALL SCREENING: Has the patient had 2 falls in the last year or 1 fall with injury or currently using an Ambulatory Assistive Device (Walker, Cane, Wheelchair, Crutches, etc.)? Yes, Patient High Risk for Falls What interventions were put in place to prevent falls during this visit? Offered Assistance with Transfers/Clothing and Increased Observations by Caregivers PATIENT GENDER DATA: Female. status: : No status: NO. PATIENT RELEVANT IMPLANT DATA REVIEWED: Not Applicable RADIOLOGY DEPARTMENT: General X-ray: Exam(s) Completed: Lower Extremity X-Ray(s): Foot, Right PERIPHERAL IV DATA: Not applicable SIGNED BY: AVELINO Kahn April 18, 2022 3:06 PM [facility] 04-18-2022 History of Presen t illness Narrative Initial Office Visit Subjective: This 82 year old female presents to clinic for diabetic foot check. Patient has the following complaints: would like tendon release to correct her foot deformity. Knew someone that had all their tendons cut and their foot was fine after this. Patient admits to being diabetic since 1965 years now and states that their blood sugar was 113 mg/dL this AM. Patient denies B/T/N in feet at this time. Patient does not walk, transfers only. Every 2 months gets nails trimmed at facility. Patient does not complain of any pain. No other pedal complaints at this time. No change in medications or medical history since last visit. PAIN EVALUATION No data found in the last 1 encounters. Hemoglobin A1C (no units) Date Value 04/02/2017 8.3 Hemoglobin A1C (POCT) (%) Date Value 11/15/2021 8.1 PCP: Rg Menchaca MD, MD PAST MEDICAL HISTORY Diagnosis Date DM type 1 (diabetes mellitus, type 1) ([facility]) Hypothyroidism Current Outpatient Medications Medication Sig SENNA-DOCUSATE SODIUM ORAL Take by mouth. ondansetron (ZOFRAN) 4 mg tablet Take by mouth every 8 hours as needed for nausea/vomiting. LORazepam (ATIVAN) 0.5 mg Take 0.25 mg by mouth every morning. baclofen (LIORESAL) 10 mg tablet Take 15 mg by mouth three times daily. bisacodyl (DULCOLAX) 10 mg supp Bisacodyl Active 10 MG RC DAILY August 18, 2021 8:41pm calcium carbonate 500 mg calcium (1,250 mg) chewable tablet Take by mouth. insulin detemir U-100 (LEVEMIR) 100 unit/mL (3 mL) injection pen Insulin Detemir U-100 (Levemir Flextouch U-100 Insuln) 100 UNITS/ML insulin pen Active 29 UNITS SC DAILY April 21, 2018 12:38pm COMPOUNDED PRESCRIPTION 1 Wheelchair with removable foot rests. ICD 10: R53.1, M79.671, M21.6X1 blood sugar diagnostic [...] Take 1 tablet by mouth once daily. levothyroxine (SYNTHROID) 75 mcg tablet DAILY No current facility-administered medications for this visit. ALLERGIES No Known Allergies PAST SURGICAL HISTORY Procedure Laterality Date CYSTOSCOPY Right 06/24/2015 Dr. True Cantu OOPHORECTOMY, PART/TOTAL UNILAT/BILAT PAST SURGICAL HISTORY OF Right 07/28/2015 cystoscopy, ureteroscopy; retrograde pyelogram; ureteral stent insertion-Dr. True Cantu PROC RM-BRONCHOSCOPY 10/22/2016 Dr. Josselyn Alexander FAMILY HISTORY Problem Relation Age of Onset Cancer Mother No Known Problems Father Social History Tobacco Use Smoking status: Former Smokeless tobacco: Never Substance Use Topics Alcohol use: Not Currently REVIEW OF SYSTEMS GENERAL: Negative for Malaise, significant weight loss, fever RESPIRATORY: Negative for cough, wheezing and shortness of breath CARDIOVASCULAR: Negative for chest pain, leg swelling and palpitations GI: Negative for abdominal discomfort, blood in stools or black stools and change in bowel habits : Negative for dysuria, frequency and incontinence MUSCULOSKELETAL: Negative for joint pain or swelling, back pain, and muscle pain. SKIN: Negative for lesions, rash, and itching. HEMATOLOGY/LYMPHOLOGY Negative for prolonged bleeding, bruising easily, and swollen nodes. ENDOCRINE: Negative for cold or heat intolerance, polyuria, polydipsia and goiter. NEURO: negative The remainder of the review of systems is noncontributory. Objective: Patient presents to clinic ambulating in socks. Constitutional: Pt is a well developed 82 year old female who is alert, oriented, cooperative and in no apparent distress. Eyes: Following during examination. No redness or drainage. Respiratory: RR normal and nonlabored. Even breathing. No evidence of distress. Psychology: Patient is engaged during conversation. Normal affect and mood. Does not appear depressed or anxious. Vasc: DP and PT pulses are diminished bilateral. Doppler Monophasic DP b/l, Monophasic interspace b/l, Monophasic PT b/l. CFT is less than 3 seconds bilateral. Skin temperature is warm to cool proximal to distal bilateral. There is minimal edema or varicosities noted. Hair growth not seen. Neuro: Protective sensation is intact to the foot and toes when tested with the 5.07 SWM bilateral. Vibratory sensation not checked. No Significant neurological deficits. Derm: Inspection and palpation performed. Nails 1-5 b/l are . Skin is of normal turgor and texture. Hyperkeratosis not seen. NO ulcerations, scars, verruca or other lesions noted. 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 Ankle joint DF is decreased with the knee extended and decreased with knee flexed. No pain or crepitus noted. STJ, MTJ ROM are full and free of pain or crepitus. Muscle strength is 5/5 for dorsiflexors, plantarflexors, inverters, everters. Digital deformities include hammertoes, and are semi reducible. Assessment: Cavovarus deformity of foot, acquired, right (primary encounter diagnosis) Other osteoporosis without current pathological fracture Hammertoe, bilateral Plan: 1. Patient was seen and evaluated. 2. Patient was instructed on the continued importance of diabetic foot care along with proper diet and keeping their blood sugar under control to prevent complications. Instructions given both oral and written. 3. Discussed her severe deformity. Deformity is largely osseous in nature and no tendon release would give her the deformity correction that she would need. Surgical correction of her deformity at 82 years old would be extremely high risk and she is currently nonambulatory. There is no brace that would accommodate her deformity. 4. Patient is to RTC PRN. Maryan Loving DPM, DAB, FACFAS Pager: [phone] [facility] [place] [facility] and [facility] locations documented in this encounter [facility] 04-18-2022 History of Presen t illness Narrative Radiology Service Progress Note PATIENT NAME: Romain Mcdermott DATE OF SERVICE: April 18, 2022 TIME: 3:06 PM PATIENT IDENTITY VERIFICATION COMPLETED USING TWO (2) IDENTIFIERS: Name and Date of confirmed by patient verbally. FALL SCREENING: Has the patient had 2 falls in the last year or 1 fall with injury or currently using an Ambulatory Assistive Device (Walker, Cane, Wheelchair, Crutches, etc.)? Yes, Patient High Risk for Falls What interventions were put in place to prevent falls during this visit? Offered Assistance with Transfers/Clothing and Increased Observations by Caregivers PATIENT GENDER DATA: Female. status: : No status: NO. PATIENT RELEVANT IMPLANT DATA REVIEWED: Not Applicable RADIOLOGY DEPARTMENT: General X-ray: Exam(s) Completed: Lower Extremity X-Ray(s): Foot, Right PERIPHERAL IV DATA: Not applicable SIGNED BY: AVELINO Kahn April 18, 2022 3:06 PM documented in this encounter [facility] 11-15-2021 History of Presen t illness Narrative Patient brought some medical records. Sent to scanning. Images from the original note were not included. ENDOCRINOLOGY CLINIC NOTE Ms. Mcdermott is a 81 year old female with T1DM and hypothyroidism self-referred for management of hypothyroidism and diabetes. She presented with her daughter HPI She stays in a long term due to R foot deformity. She saw a laundry route driver before and was told that she had old changes and no intervention was done. They were hoping to see someone for a second opinion to see if they can help with the foot deformity as this is what is keeping her in the long term. Hypothyroidism: levothyroxine 75 mcg daily. No recent TFTs T1DM: She was diagnosed with diabetes in her 50s when her blood sugars was 500s. Metfomrin was started but was then told she has type 1 diabetes and was started. She had 3 DKAs, last one was 5 years A1c: 8.1% today 9.4% in 08/2021 Current regimen: Levemir 29 units in the morning NovoLog based on a sliding scale 1 unit for every 50 starting at 170 Glucose monitoring: I reviewed the glucose data from the long term. The values went from September, and no glucose levels were available from October. In September, her glucose levels fluctuated significantly between 65-398 on variable times of day. There is really no pattern regarding the hypo or hyperglycemia Diet: She eats 3 meals but the options are limited in the long term Complications: Retinopathy: 6 months ago. She has cataract but was not told about retinopathy Nephropathy: GFR 44 in 08/2021 Neuropathy: no symptoms suggestive of that CVS: lipid profile: No recent lipid profile BP: 105/67 PAST MEDICAL HISTORY Diagnosis Date DM type 1 (diabetes mellitus, type 1) (HCC) Hypothyroidism PAST SURGICAL HISTORY Procedure Laterality Date CYSTOSCOPY Right 06/24/2015 Dr. True Cantu OOPHORECTOMY, PART/TOTAL UNILAT/BILAT PAST SURGICAL HISTORY OF Right 07/28/2015 cystoscopy, ureteroscopy; retrograde pyelogram; ureteral stent insertion-Dr. True Cantu PROC RM-BRONCHOSCOPY 10/22/2016 Dr. Josselyn Alexander FAMILY HISTORY Problem Relation Age of Onset Cancer Mother No Known Problems Father Social History Tobacco Use Smoking status: Former Smoker Smokeless tobacco: Never Used Substance Use Topics Alcohol use: Not on file Drug use: Not on file (Not in a hospital admission) Allergies As of Date: 11/15/2021 (No Known Allergies) Fully Assessed 04/21/2018 Current Outpatient Medications Medication Sig Dispense Refill COMPOUNDED PRESCRIPTION 1 Wheelchair with removable foot rests. ICD 10: R53.1, M79.671, M21.6X1 1 Each 0 blood sugar diagnostic (RELION PRIME TEST STRIPS) test strip Check blood sugar 4 times daily as intructed. Dx: E11.9. Insulin: yes 400 Strip 3 Blood-Glucose Meter (RELION PRIME METER) misc 1 Each four times daily. Dx: E11.9. Insulin: yes 1 Each 0 insulin aspart U-100 (NOVOLOG FLEXPEN U-100 INSULIN) 100 unit/mL inpn 1 unit for 15 g of carbs with meals. 5 Pen 3 insulin detemir U-100 (LEVEMIR FLEXTOUCH U-100 INSULN) 100 unit/mL (3 mL) inpn injection Inject 25 Units subcutaneously every morning. 5 Pen 2 levothyroxine (SYNTHROID) 75 mcg tablet Take 1 tablet by mouth once daily. Take on empty stomach. For Thyroid 90 tablet 1 aspirin 81 mg chewable tablet Take 1 tablet by mouth once daily. 90 tablet 1 No current facility-administered medications for this visit. COMPLETE REVIEW OF SYSTEMS: 10 point review of systems was negative other than what is mentioned in the H&P PHYSICAL EXAM: 11/15/21 1123 BP: 105/67 Pulse: 85 Resp: 16 SpO2: 99% Weight: 55.8 kg (123 lb) General: NAD, alert and cooperative HEENT: EOMI, no proptosis/stare. Neck: supple with full ROM. No thyromegaly or palpable nodules Cardiovascular: RRR, +S1 and S2, no MRG appreciated Lungs: Clear to auscultation bilaterally Abdomen: soft, non-tender, non-distended Extremities: No LE oedema Neuro: Alert and oriented Psych: Normal affect Foot exam 11/15/2021: Noted right ankle fixed abduction. Nonpalpable pedal pulses bilaterally. Normal monofilament and vibration sensation bilaterally Labs: Limited access to labs through care everywhere 08/2021 NA 138 K4.2 Hgb 12.9 Assessment and Recommendations: Ms. Mcdermott is a 81-year-old woman presented with her daughter to establish care for T1DM. She has been staying in a long term for the last couple of years due to an acquired right foot deformity. Her diabetes is poorly controlled as evidenced by the A1c level and the reviewed glucose data. This is most likely due to suboptimal regimen, inconsistencies with diet and timing of insulin administration at the long term. We will continue with the same doses for now because I did not have glucose data from the last few weeks. Instructions on how to adjust the Levemir dose were discussed and provided in the after visit summary. I will check her C-peptide and T1DM antibodies to confirm the diagnosis. They are interested in CGM's and I agree in that it would be beneficial in her case given the significant fluctuations in her glycemic control. They will clarify with insurance and let us know. Hypothyroidism: We will continue levothyroxine 75 mcg daily. We will check her TFTs now. I referred her to orthopedic surgery to review her case. They stated that the only reason why she is in the long term is because of the right foot deformity I spent a total of 60 minutes on the date of the service which included preparing to see the patient, [id number] patient care, completing clinical documentation, obtaining and/or reviewing separately obtained history, performing a medically appropriate examination, counseling and educating the patient/family/caregiver and ordering medications, tests, or procedures. La Nena Lala MD documented in this encounter [facility] 11-15-2021 Instructions La Nena Lala MD - 11/15/2021 12:03 PM EDT - Continue with Levemir 29 units in the morning. - Continue with Novolog based on the same sliding scale with each meal - Please check the blood sugar before meals and at bedtime - Target morning blood sugar fastin 100-150. If your overnight or morning blood sugar is ever lower than 100, please decrease your Levemir insulin by 1 unit permanently, and repeat as needed If your morning blood sugar is higher than 150 for 3 days in a row, please increase your Levemir insulin by 1 unit permanently, and repeat as needed - Blood tests today - Clarify with your insurance regarding the continuous blood sugar monitor and let us know - I referred you to orthopedic surgery. Please call [phone] To schedule documented in this encounter [facility] Evaluation note Diagnosis Onset Date SHEKHAR (acute kidney injury) ac shekhar Hyperglycemia due to diabetes mellitus [facility] Work Phone: Evaluation note* Diagnosis Acquired hypothyroidism- Primary Unspecified hypothyroidism Poorly controlled type 1 diabetes mellitus (HCC) Type I (juvenile type) diabetes mellitus without mention of complication, not stated as uncontrolled [facility] Diagnosis Cavovarus deformity of foot, acquired, right- Primary Other osteoporosis without current pathological fracture Hammertoe, bilateral 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 If you have any further concerns please return for repeat evaluationWChillicothe Hospital Work Phone: Reason for referral (narrative)* Diagnostic Procedure Only (Routine) - Closed Specialty Diagnoses / Procedures Referred By Contac t Referred To Contact XR IMAGING Diagnoses Pain Procedures XR FOOT GENERAL 3V AP/LAT/OBL RIGHT RADEX FOOT COMPLETE MINIMUM 3 VIEWS Maryan Loving, PILOM [id number] [place] [id number] Xr Imaging [id number] Referral ID Status Reason Start Date Expiration Date V isits Requested Visits Authorized [id number] Closed Auto-Generate d Referral 12/04/2021 01/03/2023 1 [facility])No reason for referral information availableWChillicothe Hospital Work Phone: Reason for visit Narrative* Diagnostic Procedure Only (Routine) - Closed Specialty Diagnoses / Procedures Referred By Contac t Referred To Contact XR IMAGING Diagnoses Pain Procedures XR FOOT GENERAL 3V AP/LAT/OBL RIGHT RADEX FOOT COMPLETE MINIMUM 3 VIEWS Maryan Loving, DPEmeli [address] [place] [id number] Xr Imaging [id number] Referral ID Status Reason Start Date Expiration Date V isits Requested Visits Authorized [id number] Closed Auto-Generate d Referral 12/04/2021 01/03/[address] [facility] Chief Complaint and Reason for Visit Chief Complaint DKA Reason for Visit SHEKHAR (acute kidney in jury) Hyperglycemia due to diabetes mellitus Chief Complaint DKA DKA Reason for Visit SHEKHAR (acute kidney in jury) Hyperglycemia due to diabetes mellitus Chief Complaint DKA DKA HYPOTENSION Reason for Visit SHEKHAR (acute kidney in jury) Hyperglycemia due to diabetes mellitus Chief Complaint hyperglycemia hypoglycemia Chief Complaint OCTAGAM Chief Complaint OCTAGAM OCTAGAM Chief Complaint OCTAGAM OCTAGAM OCTAGAM Chief Complaint OCTAGAM OCTAGAM OCTAGAM OCTAGAM Chief Complaint OCTAGAM OCTAGAM OCTAGAM OCTAGAM OCTAGAM Chief Complaint Admit Date IVIG April 21, 2024 7 :46am IVIG April 22, 2024 8 :04am IVIG April 23, 2024 7 :55am IVIG May 19, 2024 8:14am IVIG May 21, 2024 8: 12am IVIG May 22, 2024 8: 57am IVIG June 16, 2024 8 :12am IVIG June 17, 2024 8 :31am IVIG June 18, 2024 8 :14am IVIG July 14, 2024 8:15am IVIG July 15, 2024 8:23am IVIG July 16, 2024 8:19am IVIG August 11, 2024 7:5 2am Chief Complaint Admit Date IVIG April 21, 2024 7 :46am IVIG April 22, 2024 8 :04am IVIG April 23, 2024 7 :55am IVIG May 19, 2024 8:14am IVIG May 21, 2024 8: 12am IVIG May 22, 2024 8: 57am IVIG June 16, 2024 8 :12am IVIG June 17, 2024 8 :31am IVIG June 18, 2024 8 :14am IVIG July 14, 2024 8:15am IVIG July 15, 2024 8:23am IVIG July 16, 2024 8:19am IVIG August 11, 2024 7:5 2am IVIG August 12, 2024 7:5 8am Chief Complaint Admit Date IVIG April 21, 2024 7 :46am IVIG April 22, 2024 8 :04am IVIG April 23, 2024 7 :55am IVIG May 19, 2024 8:14am IVIG May 21, 2024 8: 12am IVIG May 22, 2024 8: 57am IVIG June 16, 2024 8 :12am IVIG June 17, 2024 8 :31am IVIG June 18, 2024 8 :14am IVIG July 14, 2024 8:15am IVIG July 15, 2024 8:23am IVIG July 16, 2024 8:19am IVIG August 11, 2024 7:5 2am IVIG August 12, 2024 7:5 8am IVIG August 13, 2024 9:5 3am Chief Complaint Admit Date IVIG May 19, 2024 8:14am IVIG May 21, 2024 8: 12am IVIG May 22, 2024 8: 57am IVIG June 16, 2024 8 :12am IVIG June 17, 2024 8 :31am IVIG June 18, 2024 8 :14am IVIG July 14, 2024 8:15am IVIG July 15, 2024 8:23am IVIG July 16, 2024 8:19am IVIG August 11, 2024 7:5 2am IVIG August 12, 2024 7:5 8am IVIG August 13, 2024 9:5 3am IVIG September 08, 2024 8:2 0am IVIG September 09, 2024 8:0 1am Chief Complaint Admit Date IVIG May 19, 2024 8:14am IVIG May 21, 2024 8: 12am IVIG May 22, 2024 8: 57am IVIG June 16, 2024 8 :12am IVIG June 17, 2024 8 :31am IVIG June 18, 2024 8 :14am IVIG July 14, 2024 8:15am IVIG July 15, 2024 8:23am IVIG July 16, 2024 8:19am IVIG August 11, 2024 7:5 2am IVIG August 12, 2024 7:5 8am IVIG August 13, 2024 9:5 3am IVIG September 08, 2024 8:2 0am IVIG September 09, 2024 8:0 1am IVIG September 10, 2024 8:1 0am Chief Complaint Admit Date IVIG June 16, 2024 8 :12am IVIG June 17, 2024 8 :31am IVIG June 18, 2024 8 :14am IVIG July 14, 2024 8:15am IVIG July 15, 2024 8:23am IVIG July 16, 2024 8:19am IVIG August 11, 2024 7:5 2am IVIG August 12, 2024 7:5 8am IVIG August 13, 2024 9:5 3am IVIG September 08, 2024 8:2 0am IVIG September 09, 2024 8:0 1am IVIG September 10, 2024 8:1 0am IVIG October 06, 2024 7:37a m Chief Complaint Admit Date IVIG June 16, 2024 8 :12am IVIG June 17, 2024 8 :31am IVIG June 18, 2024 8 :14am IVIG July 14, 2024 8:15am IVIG July 15, 2024 8:23am IVIG July 16, 2024 8:19am IVIG August 11, 2024 7:5 2am IVIG August 12, 2024 7:5 8am IVIG August 13, 2024 9:5 3am IVIG September 08, 2024 8:2 0am IVIG September 09, 2024 8:0 1am IVIG September 10, 2024 8:1 0am IVIG October 06, 2024 7:37a m IVIG October 07, 2024 8:14a m Family History No Family History Records Found Relationship Condition Age at Onset Recorded Date/T jane Not Specified Cardiac disease Unknown Malignant neoplasm Unknown Advance Directives No Advanced Directives Records Found Advance Directive Response Recorded Date/ Time Living Will No August 18, 2021 6:10pm Power of Psychiatric Specialist No August 18 6:10pm Advance Directive Response Recorded Date/ Time Living Will No August 18, 2021 9:27pm Power of Psychiatric Specialist No August 18 9:27pm Advance Directive Response Recorded Date/ Time Living Will No August 30, 2021 6:13pm Power of Psychiatric Specialist No August 30 6:13pm Advance Directive Response Recorded Date/ Time Name of Medical Power of Psychiatric Specialist Nyla Mcnulty April 28, 2022 10:03pm Living Will Yes April 28, 022 10:03pm Power of Psychiatric Specialist Yes April 28, 2022 10:03pm Advance Directive Response Recorded Date/ Time Living Will Yes April 28, 022 11:03pm Power of Psychiatric Specialist Yes April 28, 2022 11:03pm Reason for Referral Specialty Diagnoses / Procedures Referred By Contac t Referred To Contact Orthopedics Diagnoses Acquired hypothyroidism Poorly controlled type 1 diabetes mellitus (HCC) Procedures CONSULT TO ORTHOPAEDICS OFFICE/OUTPATIENT NEW HIGH MDM 60-74 MINUTES La Nena Lala MD [address] [place] [address] Referral ID Status Reason Start Date Expiration Date Visits Requested Visits Authorized [id number] Authorized PCP Requested Referral 11/15/2021 11/15/2022 1 1 Specialty Diagnoses / Procedures Referred By Contac t Referred To Contact Diagnoses Stiff person syndrome Procedures PROVIDER ORDERED FOLLOW UP OFFICE/OUTPATIENT NEW HIGH MDM 60 MINUTES Windy Yuen MD [address] [facility] [address] [place] [address] Referral ID Status Reason Start Date Expiration Date Visits Requested Visits Authorized [id number] Authorized PCP Requested Referral 10/31/2023 07/30/2024 1 1 Summary Purpose Additional Source Comments Goals (unrecognized section and content) Goals may be documented in a n alternate sectionGoals may be documented in an alternate sectionGoals may be documented in an alternate sectionGoals may be documented in an alternate sectionGoals may be documented in an alternate sectionGoals may be documented in an alternate sectionGoals may be documented in an alternate sectionGoals may be documented in an alternate sectionGoals may be documented in an alternate sectionGoals may be documented in an alternate sectionGoals may be documented in an alternate sectionGoals may be documented in an alternate sectionGoals may be documented in an alternate sectionGoals may be documented in an alternate sectionGoals may be documented in an alternate sectionGoals may be documented in an alternate section Source Comments (unrecognize d section and content) In the event this informatio n is protected by the Federal Confidentiality of Alcohol and Drug Abuse Patient Records regulations: The Federal rules restrict any use of the information to criminally investigate or prosecute any alcohol or drug abuse patient.[facility] the event this information is protected by the Federal Confidentiality of Alcohol and Drug Abuse Patient Records regulations: The Federal rules restrict any use of the information to criminally investigate or prosecute any alcohol or drug abuse patient.[facility] Center[facility] the event this information is protected by the Federal Confidentiality of Alcohol and Drug Abuse Patient Records regulations: The Federal rules restrict any use of the information to criminally investigate or prosecute any alcohol or drug abuse patient.[facility] Center[facility] the event this information is protected by the Federal Confidentiality of Alcohol and Drug Abuse Patient Records regulations: The Federal rules restrict any use of the information to criminally investigate or prosecute any alcohol or drug abuse patient.[facility] Center[facility] the event this information is protected by the Federal Confidentiality of Alcohol and Drug Abuse Patient Records regulations: The Federal rules restrict any use of the information to criminally investigate or prosecute any alcohol or drug abuse patient.[facility] Center[facility] the event this information is protected by the Federal Confidentiality of Alcohol and Drug Abuse Patient Records regulations: The Federal rules restrict any use of the information to criminally investigate or prosecute any alcohol or drug abuse patient.[facility] CenterIn the event this information is protected by the Federal Confidentiality of Alcohol and Drug Abuse Patient Records regulations: The Federal rules restrict any use of the information to criminally investigate or prosecute any alcohol or drug abuse patient.[facility] CenterIn the event this information is protected by the Federal Confidentiality of Alcohol and Drug Abuse Patient Records regulations: The Federal rules restrict any use of the information to criminally investigate or prosecute any alcohol or drug abuse patient.[facility] CenterIn the event this information is protected by the Federal Confidentiality of Alcohol and Drug Abuse Patient Records regulations: The Federal rules restrict any use of the information to criminally investigate or prosecute any alcohol or drug abuse patient.[facility] CenterIn the event this information is protected by the Federal Confidentiality of Alcohol and Drug Abuse Patient Records regulations: The Federal rules restrict any use of the information to criminally investigate or prosecute any alcohol or drug abuse patient.[facility] CenterIn the event this information is protected by the Federal Confidentiality of Alcohol and Drug Abuse Patient Records regulations: The Federal rules restrict any use of the information to criminally investigate or prosecute any alcohol or drug abuse patient.[facility] CenterIn the event this information is protected by the Federal Confidentiality of Alcohol and Drug Abuse Patient Records regulations: The Federal rules restrict any use of the information to criminally investigate or prosecute any alcohol or drug abuse patient.[facility] CenterIn the event this information is protected by the Federal Confidentiality of Alcohol and Drug Abuse Patient Records regulations: The Federal rules restrict any use of the information to criminally investigate or prosecute any alcohol or drug abuse patient.[facility] CenterIn the event this information is protected by the Federal Confidentiality of Alcohol and Drug Abuse Patient Records regulations: The Federal rules restrict any use of the information to criminally investigate or prosecute any alcohol or drug abuse patient.[facility] CenterIn the event this information is protected by the Federal Confidentiality of Alcohol and Drug Abuse Patient Records regulations: The Federal rules restrict any use of the information to criminally investigate or prosecute any alcohol or drug abuse patient.[facility] CenterIn the event this information is protected by the Federal Confidentiality of Alcohol and Drug Abuse Patient Records regulations: The Federal rules restrict any use of the information to criminally investigate or prosecute any alcohol or drug abuse patient.[facility] CenterIn the event this information is protected by the Federal Confidentiality of Alcohol and Drug Abuse Patient Records regulations: The Federal rules restrict any use of the information to criminally investigate or prosecute any alcohol or drug abuse patient.[facility] Reason for Visit (unrecogniz ed section and content) Reason Comments New Patient Type 2 Diabetes Reason Comments New Pain Reason Comments High Blood Sugar Thyroid Problem Reason Comments Blood sugar log Reason Comments Appointment Reschedule Reason Comments Appointment Reason Comments Follow Up L heel pain. Blood s ugar has been high. Reason Comments Medication Question Reason Comments Patient Update Reason Comments Appointment Appointment Update F axed to [facility] for 12/17/23 Reason Comments Appointment Update faxed to [facility] [place] for appointment 02/05/24 Reason Comments Follow Up Patient states no ch angsuleiman. 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 Start Date End Date Rg Menchaca MD [address] [facility] [address] [place] [address] PCP - General Family Medicine 04/18/22 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 Start Date End Date Rg Menchaca MD [address] [facility] [address] [place] [address] PCP - General Family Medicine 04/18/22 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 Start Date End Date Rg Menchaca MD [address] [facility] [address] [place] [address] PCP - General Family Medicine 04/18/22 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 Start Date End Date Rg Menchaca MD [address] [facility] [address] [place] [address] PCP - General Family Medicine 04/18/22 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 Start Date End Date Rg Menchaca MD [address] [facility] [address] [place] [address] PCP - General Family Medicine 04/18/22 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 Rg Menchaca MD Family Provider Active Dr. Rg Menchaca MD Primary Care Provider Active Team Status: Inactive Member Role Status Dates Dr. 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 Start Date End Date Rg Menchaca MD [address] [facility] [address] [place] [address] PCP - General Family Medicine 04/18/22 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 Start Date End Date Rg Menchaca MD [address] [facility] [address] [place] [address] PCP - General Family Medicine 04/18/22 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 Start Date End Date Rg Menchaca MD [address] [facility] [address] [place] [address] PCP - General Family Medicine 04/18/22 Team Status: Active Member Role Status Dates Dr. Rg Menchaca MD Primary Care Provider Active Team Status: Inactive Member Role Status Dates Dr. Rg Menchaca MD Primary Care Provider Active Start: April 21, 2024 End: April 21, 2024 Dr. Windy Yuen MD Attending Provider Active Start: April 21, 2024 End: April 21, 2024 Dr. Windy Yuen MD Referring Provider Active Start: April 21, 2024 End: April 21, 2024 Team Status: Inactive Member Role Status Dates Dr. Rg Menchaca MD Primary Care Provider Active Start: April 22, 2024 End: April 22, 2024 Dr. Windy Yuen MD Attending Provider Active Start: April 22, 2024 End: April 22, 2024 Dr. Windy Yuen MD Referring Provider Active Start: April 22, 2024 End: April 22, 2024 Team Status: Inactive Member Role Status Dates Dr. Rg Menchaca MD Primary Care Provider Active Start: April 23, 2024 End: April 23, 2024 Dr. Windy Yuen MD Attending Provider Active Start: April 23, 2024 End: April 23, 2024 Dr. Windy Yuen MD Referring Provider Active Start: April 23, 2024 End: April 23, 2024 Team Status: Inactive Member Role Status Dates Dr. Rg Menchaca MD Primary Care Provider Active Start: May 19, 2024 End: May 19, 2024 Dr. Windy Yuen MD Attending Provider Active Start: May 19, 2024 End: May 19, 2024 Dr. Windy Yuen MD Referring Provider Active Start: May 19, 2024 End: May 19, 2024 Team Status: Inactive Member Role Status Dates Dr. Rg Menchaca MD Primary Care Provider Active Start: May 21, 2024 End: May 21, 2024 Dr. Windy Yuen MD Attending Provider Active Start: May 21, 2024 End: May 21, 2024 Dr. Windy Yuen MD Referring Provider Active Start: May 21, 2024 End: May 21, 2024 Team Status: Inactive Member Role Status Dates Dr. Rg Menchaca MD Primary Care Provider Active Start: May 22, 2024 End: May 22, 2024 Dr. Windy Yuen MD Attending Provider Active Start: May 22, 2024 End: May 22, 2024 Dr. Windy Yuen MD Referring Provider Active Start: May 22, 2024 End: May 22, 2024 Team Status: Inactive Member Role Status Dates Dr. Rg Menchaca MD Primary Care Provider Active Start: June 16, 2024 End: June 16, 2024 Dr. Windy Yuen MD Attending Provider Active Start: June 16, 2024 End: June 16, 2024 Dr. Windy Yuen MD Referring Provider Active Start: June 16, 2024 End: June 16, 2024 Team Status: Inactive Member Role Status Dates Dr. Rg Menchaca MD Primary Care Provider Active Start: June 17, 2024 End: June 17, 2024 Dr. Windy Yuen MD Attending Provider Active Start: June 17, 2024 End: June 17, 2024 Dr. Windy Yuen MD Referring Provider Active Start: June 17, 2024 End: June 17, 2024 Team Status: Inactive Member Role Status Dates Dr. Rg Menchaca MD Primary Care Provider Active Start: June 18, 2024 End: June 18, 2024 Dr. Windy Yuen MD Attending Provider Active Start: June 18, 2024 End: June 18, 2024 Dr. Windy Yuen MD Referring Provider Active Start: June 18, 2024 End: June 18, 2024 Team Status: Inactive Member Role Status Dates Dr. Rg Menchaca MD Primary Care Provider Active Start: July 14, 2024 End: July 14, 2024 Dr. Windy Yuen MD Attending Provider Active Start: July 14, 2024 End: July 14, 2024 Dr. Windy Yuen MD Referring Provider Active Start: July 14, 2024 End: July 14, 2024 Team Status: Inactive Member Role Status Dates Dr. Rg Menchaca MD Primary Care Provider Active Start: July 15, 2024 End: July 15, 2024 Dr. Windy Yuen MD Attending Provider Active Start: July 15, 2024 End: July 15, 2024 Dr. Windy Yuen MD Referring Provider Active Start: July 15, 2024 End: July 15, 2024 Team Status: Inactive Member Role Status Dates Dr. Rg Menchaca MD Primary Care Provider Active Start: July 16, 2024 End: July 16, 2024 Dr. Windy Yuen MD Attending Provider Active Start: July 16, 2024 End: July 16, 2024 Dr. Windy Yuen MD Referring Provider Active Start: July 16, 2024 End: July 16, 2024 Team Status: Inactive Member Role Status Dates Dr. Rg Menchaca MD Primary Care Provider Active Start: August 11, 2024 End: August 11, 2024 Dr. Windy Yuen MD Attending Provider Active Start: August 11, 2024 End: August 11, 2024 Dr. Windy Yuen MD Referring Provider Active Start: August 11, 2024 End: August 11, 2024 Team Status: Inactive Member Role Status Dates Dr. Rg Menchaca MD Primary Care Provider Active Start: August 12, 2024 End: August 12, 2024 Dr. Windy Yuen MD Attending Provider Active Start: August 12, 2024 End: August 12, 2024 Dr. Windy Yuen MD Referring Provider Active Start: August 12, 2024 End: August 12, 2024 Team Status: Inactive Member Role Status Dates Dr. Rg Menchaca MD Primary Care Provider Active Start: August 13, 2024 End: August 13, 2024 Dr. Windy Yuen MD Attending Provider Active Start: August 13, 2024 End: August 13, 2024 Dr. Windy Yuen MD Referring Provider Active Start: August 13, 2024 End: August 13, 2024 Team Status: Inactive Member Role Status Dates Dr. Rg Menchaca MD Primary Care Provider Active Start: September 08, 2024 End: September 08, 2024 Dr. Windy Yuen MD Attending Provider Active Start: September 08, 2024 End: September 08, 2024 Dr. Windy Yuen MD Referring Provider Active Start: September 08, 2024 End: September 08, 2024 Team Status: Inactive Member Role Status Dates Dr. Rg Menchaca MD Primary Care Provider Active Start: September 09, 2024 End: September 09, 2024 Dr. Windy Yuen MD Attending Provider Active Start: September 09, 2024 End: September 09, 2024 Dr. Windy Yuen MD Referring Provider Active Start: September 09, 2024 End: September 09, 2024 Team Status: Inactive Member Role Status Dates Dr. Rg Menchaca MD Primary Care Provider Active Start: September 10, 2024 End: September 10, 2024 Dr. Windy Yuen MD Attending Provider Active Start: September 10, 2024 End: September 10, 2024 Dr. Windy Yuen MD Referring Provider Active Start: September 10, 2024 End: September 10, 2024 Team Status: Inactive Member Role Status Dates Dr. Rg Menchaca MD Primary Care Provider Active Start: October 06, 2024 End: October 06, 2024 Dr. Windy Yuen MD Attending Provider Active Start: October 06, 2024 End: October 06, 2024 Dr. Windy Yuen MD Referring Provider Active Start: October 06, 2024 End: October 06, 2024 Team Status: Inactive Member Role Status Dates Dr. Rg Menchaca MD Primary Care Provider Active Start: October 07, 2024 End: October 07, 2024 Dr. Windy Yuen MD Attending Provider Active Start: October 07, 2024 End: October 07, 2024 Dr. Windy Yuen MD Referring Provider Active Start: October 07, 2024 End: October 07, 2024 FOR RECORDS PERTAINING TO PATIENTS WHO ARE OR HAVE BEEN ENROLLED IN A CHEMICAL DEPENDENCY/SUBSTANCEABUSE PROGRAM, SOME INFORMATION MAY BE OMITTED. This clinical summary was aggregated from multiple sources. Caution should be exercised in using it in the provision of clinical care. This summary normalizes information from multiple sources, and as a consequence, information in this document may materially change the coding, format and clinical context of patient data. In addition, data may be omitted in some cases. CLINICAL DECISIONS SHOULD BE BASED ON THE PRIMARY CLINICAL RECORDS. [facility] [employer] provides no warranty or guarantee of the accuracy or completeness of information in this document.
[2024-11-03] MEDS: Immune Globulin 20 gm 20 GM/200 ML VIAL IV (08:40)
[2024-11-03] MEDS: Immune Globulin 10 gm 10 GM/100 ML VIAL IV (11:20)
[2024-11-03] MEDS: Immune Globulin 5 GM 5 GM/50 ML VIAL IV (12:01)
== END 2024-11-03 23:59 | disposition home or self-care (01) ==
LOC: MEDOUTP 07:55
PROVIDERS: PCP Family Medicine; Referring Provider Psychiatry & Neurology Neurology; Visit Provider Psychiatry & Neurology Neurology
DX: G25.82 Stiff-man syndrome (principal)
CPT/HCPCS: 96365; 96366; 96375; A4216; J1568

== ENCOUNTER 2024-11-04 07:49 | Outpatient (CLI) | payer MEDICARE, MEDICAID, SELFPAY ==
[2024-11-04] MEDS: 0.9% NaCl IVPB Med Flush (100mL) 15 ML IV (07:53)
[2024-11-04 07:55] VITALS: BP 118/70; PULSE 74; RESP 16; TEMP 35.7; O2SAT 94; BMI 24.4
--- OUTSIDE RECORDS SUMMARY | 2024-11-04 08:09 | XMS RPT_ITS | CCD ---
Author Organization [facility] Care Team Providers Care Molder Feeder Name Role Phone Dr. Rg Menchaca Primary Care Provider MD Saul Cruz Emergency Provider Dr. Sean Godwin Admit Provider Dr. Elise Sanchez Attending Provider Dr. Elise Sanchez Other Provider Unavailable Primary Care Provider Unavailabl Rg Escobar MD Primary Care Provider PROVIDER, UNKNOWN Referring [...] Provider Tripp ANDRADE, Dr. Norris Referring Provider Dr. Rg Menchaca MD Primary Care Provider Tripp ANDRADE, Dr. Norris Attending Provider Tripp ANDRADE, Dr. Norris Referring Provider Doyle ANDRADE, Dr. Diez Primary Care Provider Tripp ANDRADE, Dr. Norris Attending Provider Tripp ANDRADE, Dr. Norris Referring Provider Spolter, Windy Attending Unavailable Menchaca, Rg Primary [...] Referring Unavailable Spolter, Windy Attending Unavailable Menchaca, gR Primary Care Unavailable Spolter, Windy Referring Unavailable [...] Primary Care Unavailable Spolter, Windy Referring Unavailable Menchaca Dr. Rg ANDRADE Primary Care Provider Dr. Windy Yuen MD Attending Provider [phone] Dr. Windy Yuen MD Referring Provider Medications Current Medications Medication Drug Class(es) Dates [...] Start: 01-17-2018 Blood-Glucose Meter (RELION PRIME METER) [facility] Indications: Type 2 diabetes mellitus with complication, with long-term current use of insulin (HCC) 1 Each four times daily. Dx: E11.9. Insulin: yes 1 Each 01/17/2018 Active Start: 01-17-2018 Blood-Glucose Meter (RELION PRIME METER) [facility] Indications: Type 2 diabetes mellitus with complication, [...] Inject intramuscularly. glucose 0.4 mg/mg oral gel (13 sources) Start: Dextrose (Glutose-15) 40 % gel [...] mg PO and acetaminophen 650 [place]. [address] mL 11 02/05/2024 02/05/2024 Discontinued 3 ml [...] long-term current use of insulin ([facility]) 1 unit for 15 g of carbs [...] long-term current use of insulin ([facility]) Inject 27 Units subcutaneously every morning. 5 Each 2 06/12/2022 Active Start: 04-21-2018 Insulin Detemi r U-100 (Levemir Flextouch U100 Insulin) 100 UNITS/ML insulin pen Active 22 U SC .qam April 21, 2018 1:00am Start: 04-21-2018 Insulin Detemi r U-100 (Levemir Flextouch U100 Insulin) 100 UNITS/ML insulin pen Active 24 U SC .qa April 21, 2018 1:00am Start: 04-21-2018 Insulin Detemi r U-100 (Levemir Flextouch U-100 Insuln) 100 UNITS/ML insulin pen Active 29 UNITS SC DAILY April 21, 2018 12:38pm Start: 01-07-2018 End: 06-12-2022 insulin detemir U-100 (LEVEM IR FLEXTOUCH U-100 INSULN) 100 unit/mL (3 mL) inpn injection Indications: Controlled type 2 diabetes mellitus without complication, with long-term current use of insulin (HCC) Inject 25 Units subcutaneously every morning. 5 [...] CONCHITA. NO GENERIC. Start: 01-07-2018 End: 06-04-2022 take 1 tablet by mouth once daily Levothyroxine 75 MCG tablet Active 75 ug PO DAILY April 21, 2018 1:00am CONCHITA. NO GENERIC. Comment on above: Take 1 tablet by finesse th once daily. Take on empty stomach. For Thyroid DAILY lisinopril 5 mg oral tablet (3 sources) Angiotensin Converting Enzyme Inhibitor Start: 2 take 5 mg by mouth once daily Lisinopril Active 5 MG PO DAILY August 18, 2021 8:20pm loratadine 10 mg oral tablet (1 source) Start: 5 take 1 tablet by mouth every twenty-four hours as needed Loratadine (Allergy Relief (Loratadine)) 10 mg tablet Active 10 mg PO Q24H as needed for allergy symptoms October 08, 2024 12:00am LORazepam 0.5 mg oral tablet (20 sources) Benzodiazepine Start: 2 take 1 tablet by mouth once daily Lorazepam (Ativan) 0.5 mg Tablet Active 0.5 mg PO DAILY@0800 August 18, 2021 12:00am Start: 08-18-2021 take 0.25 mg by mout h once daily Lorazepam (Ativan) 0.5 mg Tablet Active 0.25 mg PO DAILY@0800 August 18, 2021 12:00am Start: 11-27-2018 End: 11-29-2018 take 1 tablet by mouth once daily Lorazepam 1 MG tablet Discontinued 1 mg PO DAILY November 27, 2018 12:00am November 29, 2018 11:28am Comment on above: Take 0.25 mg by mout h every morning. Magnesium Hydroxide (13 sources) Start: 4 take 1 mL by [...] 2023 12:00am mineral oil 1000 mg/ml enema (13 sources) Start: 09-09-2023 Mineral Oil (F leet [...] 1 tablet by mouth every six hours as needed for nausea and vomiting Ondansetron Hcl 4 mg tablet Active 4 mg PO EVERY 6 HOURS as needed for nausea and vomiting May 19, 2024 1:00am Start: 04-29-2022 End: [...] by mouth every 8 hours as needed fo r nausea/vomiting. Senna Plus (senna-docusate ) (14 sources) Start: 04-28-20 take 8.6-50 mg by mouth every twelve hours as needed for constipation Senna Plus (senna-docusate) Active 8.6 - 50 mg PO EVERY 12 HOURS NEEDED as needed for constipation April 28, 2022 1:00am Start: 04-28-2022 take [...] 1 tablet by finesse th once daily. bisacodyl 10 mg rectal suppository [...] 1250 mg chewable tablet (20 sources) Start: End: take 1 tablet by mouth every four hours as needed Calcium Carbonate 500 mg calcium (1,250 mg) Tablet,Chewable Discontinued 500 mg PO Q4H as needed for Indigestion August 18, 2021 12:00am September 09, 2023 9:08am Comment on above: Take by mouth. DULoxetine 60 mg delayed release oral capsule (17 sources) Serotonin and Norepinephrine Reuptake Inhibitor Start: End: take 1 capsule by mouth once [...] ml insulin lispro 100 unt/ml pen injector (17 sources) Insulin Analog Start: 11-27-2018 End: 11-29-2018 [...] foot] Episodic Acute and unspecified renal failure (20 sources) Injury of kidney; Translations: [Acute kidney [...] 02-17-2018 Chronic Joint disorders and dislocations; trauma-related (17 sources) Subluxation of ankle joint; Translations: [Subluxation of right ankle joint, initial encounter] 11-28-2018 Episodic Malaise and fatigue (17 sources) Asthenia; Translations: [Other malaise] 11-28-2018 Episodic [...] Onset: 01-13-2018 01-13-2018 Chronic Other circulatory disease (15 sources) Low blood pressure; Translations: [Hypotension, unspecified] 09-07-2021 Episodic Other connective tissue disease (17 sources) Cramp in lower limb; Translations: [Cramp and spasm] 11-28-2018 Episodic Other hereditary and degenerative nervous system conditions (16 sources) Stiff-man syndrome; 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 Other hereditary and degenerative nervous system conditions (3 sources) Stiff-man syndrome; 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 Telephone ([facility]) ROMAIN MCDERMOTT ([id number]) 1940 F Date Time Provider Department 02/06/24 WINDY YUEN [facility] During your visit today, we recorded the following information about you: Kellen Duran LPN 02/06/2024 8:05 AM Signed IVIG order was faxed to Madelaine at [facility] at [phone] with confirmation. Allergies As of Date: 02/06/2024 (No Known Allergies) Date Reviewed: 02/05/2024 Reviewed by: Shira Hager LPN - Fully Assessed Reason for Visit: Orders [691] Cmt: IVIG Prescriptions as of 02/06/2024 - [...] Encounter Status:Closed by KELLEN DURAN on 02/06/24 Normal [facility] CNOVon 02-05-2024 CNOV Office Visit ([facility] ) ASTERROMAIN FRANCE ([id number]) 1940 F Date Time Provider Department 02/05/24 11:30 AM WINDY YUEN [facility] During your visit today, we recorded the following information about you: Pulse Blood pressure 81/minute 116/68 Windy Yuen MD 02/05/2024 11:52 AM Signed Romain is here for follow up; her daughter joins us on the phone for the appointment. She continues on baclofen and lorazepam. She is getting IVIG over 5 days every month at the [facility] Had some trouble with the last infusion [...] syndrome Confirmed with qulitative and quantitative testing ([place]) demonstrating high ab titer som 65 lab [...] that she can receive the treatments at the [facility]. She is now s/p 5 monthly cycles of IVIG: She has experienced remarkable improvement of her symptoms since initiating IVIG treatments: She has not been having spasms anymore She is able to sit in her chair now She has re-started PT. Will plan to consolidate treatment to 0.66 g/kg daily over three days (same total dose of 2g/kg IBW) Fax order to Madelaine at [facility] at [phone] RTC 6 months Allergies As of Date: 02/05/2024 [...] 2018 12:38pm (more content not included)... Normal [facility] 11-24-2023 [facility] [place] Telephone ([facility]) ROMAIN MCDERMOTT ([id number]) 1940 F Date Time Provider Department 11/24/23 WINDY YUEN [facility] During your visit today, we recorded the following information about you: Naif Oates 11/24/2023 3:16 PM Signed Patient's appointment changed from 12/17/23 to 02/05/[address] Yuen being out of the office. Appointment details faxed as requested by daughter, Nyla, so patient will have transportation for appointment. Faxed to [facility] [place]: [phone] Confirmation ok. Allergies As of Date: 11/24/2023 (No Known Allergies) Date Reviewed: 07/31/2023 Reviewed by: Shruthi Soliz LPN - Fully Assessed Reason for Visit: Appointment [186] Cmt: Update faxed to [facility] [place] for appointment 02/05/24 Prescriptions as of 11/24/2023 [...] Encounter Status:Closed by NAIF OATES on 11/24/23 [facility] 11-14-2023 [facility] Telephone ([facility]) ROMAIN MCDERMOTT ([id number]) 1940 F Date Time Provider Department 11/14/23 WINDY YUEN [facility] During your visit today, we recorded the [...] Encounter Status:Closed by [facility] WALLS [facility] Telephone ([facility]) ROMAIN MCDERMOTT ([id number]) 1940 F Date Time Provider Department 10/29/23 WINDY YUEN [facility] During your visit today, we recorded the following information about you: Naif Oates 10/29/2023 2:49 PM Signed Faxed appointment change/reminder to [facility]: [phone]. Confirmation ok. Appointment date for 12/17/23 arrive by 11:45am. Allergies As of Date: 10/29/2023 (No Known Allergies) Date Reviewed: 07/31/2023 Reviewed by: Shruthi Soliz LPN - Fully Assessed Reason for Visit: Appointment [186] Cmt: Appointment Update Faxed to [facility] for 12/17/23 Prescriptions as of 10/29/2023 - [...] Encounter Status:Closed by NAIF OATES on 10/29/23 [facility] Brian 10-15-2023 [facility] Telephone ([facility]) ROMAIN MCDERMOTT ([id number]) 1940 F Date Time Provider Department 10/15/23 WINDY YUEN [facility] During your visit today, we recorded the [...] out what her concerns are? Thanks Mary Carrasco RN 10/16/2023 3:34 PM Signed Per call [...] insulin. States the concern is that the Jail is giving her sugary,unhealthy snacks to increase blood sugar in the evening for lower blood sugar levels of about 58. She is asking for an order for patient to have more healthy snacks of carb and protein. States she will will discuss with PCP,Fire Tower Keeper and Endo. Asking if decreased in blood sugar is normal when receiving IVIG. Will obtain and send hx of before and after infusion blood sugar levels. NOV with 12-17-23. Does not have f/u with Endo. Message forwarded to Dr.Spolter Mary Carrasco, RN, BSN Windy Yuen MD 10/16/2023 4:12 PM Signed Please advise her that I don't see any clear connection between blood sugar levels and IVIG treatments I am happy to hear that her symptoms are much improved. She should follow up with her PCP regarding blood sugar and insulin concerns. Mary Carrasco RN 10/17/2023 11:11 AM Signed Per call to patient's daughter, Nlya, Notified of reply from . States understanding and agrees with plan. States patient had 3 IVIG infusions scheduled: August, [...] appointment in november. She will check with the [facility] whether any further orders are needed. I [...] 1 Wheelch (more content not included)... Normal [facility] 09-25-2023 [facility] Telephone ([facility]) ROMAIN MCDERMOTT ([id number]) 1940 F Date Time Provider Department 09/25/23 WINDY YUEN [facility] During your visit today, we recorded the [...] Encounter Status:Closed by BRIAN AMAYA on 09/25/23 [facility] 09-18-2023 [facility] Telephone ([facility]) ROMAIN MCDERMOTT ([id number]) 1940 F Date Time Provider Department 09/18/23 WINDY YUEN [facility] During your visit today, we recorded the following information about you: Jackie Newsome RN 09/18/2023 9:49 AM Signed Per Madelaine from [facility], this patient's daughter would like to have her IVIG dose changed to a higher dose for a shorter duration. States this was discussed with Dr. Yuen previously. Please advise if this is correct and if so, please call Madelaine back at [phone]. A new order and authorization will be [...] LPN 09/18/2023 1:26 PM Signed Spoke to Madelaine and relayed message from provider, she voiced understanding at this time and will let patient and daughter know. Allergies As of Date: 09/18/2023 (No Known Allergies) Date Reviewed: 07/31/2023 Reviewed by: Shruthi Soliz LPN - Fully Assessed Reason for Visit: Medication Question [1148] Prescriptions as of 09/18/2023 - glucagon (GLUCAGEN) [...] Encounter Status:Closed by WINDY YUEN on 09/18/23 [facility] 08-13-2023 [facility] Telephone ([facility]) ROMAIN MCDERMOTT ([id number]) 1940 F Date Time Provider Department 08/13/23 WINDY YUEN [facility] During your visit today, we recorded the following information about you: Leigha Walter MA 08/13/2023 9:54 AM Signed Faxed office notes, demographic sheet, copy of insurance, we don't have a copy of insurance cards to [phone]. Windy Yuen MD 08/22/2023 5:18 PM Signed Infusion order form completed in my outbox Please fax to [facility] Please include copy of the printed ivig rx and include documentation of insurance authorization. Shruthi Torres LPN 08/26/2023 5:20 PM Addendum Contacted [facility] to attempt to get a copy of IVIG authorization. Spoke with two individuals, was told that [employer] doesn't handle patients pharmacy benefits and was transferred to [facility] - [phone]. Dileep at [facility] stated they do not handle patients pharmacy benefits - [facility] does - [phone]. Spoke with Elida at specialty pharmacy who found infusion order and transferred call to infusion team. Infusion team can't pull up patients information. Authorization number is documented as [id number]. Judy Morin 08/27/2023 8:39 AM Signed Daughter is calling for an update Please advise Nyla Palacios [phone] Needing this done KELSEY for the Prior Auth is only good for SIX months and they only have Five months left Kellen Duran LPN 08/27/2023 2:53 PM Signed Faxed authorization approval letter to [facility] with confirmation. Approval letter sent to scanning. Naif Oates 11/24/2023 2:54 PM Signed Called to r/s appointment from 12/17/23. While on the phone, daughter, Nyla [phone], said the hospital will need monthly verifications to continue on the IVIG. SATYA LEMA is who she said Dr. Yuen was talking to before. Please reach out to make sure this will be available for patient as ordered by . Thank you! Mary Carrasco, RN 11/25/2023 9:24 AM Signed Per call to Nyla morgan, states Infusion center will be calling monthly to verify that patient is continuing to receive IVIG therapy. In turn, the half-way, [facility], will be notified, appointment scheduled, and transportation for infusion will then be made. Patient has order dated 08-22-23 to repeat cycle every 28 days. Has approval from [employer] through 05-19-24. Verified with Nyla that the November appointment with has been rescheduled for 02-05-24 at 11:30 and is documented that it has been faxed to [facility]. Message forwarded to . Mary Carrasco RN, BSN Allergies As of Date: 08/13/2023 (No Known Allergies) Date Reviewed: 07/31/2023 Reviewed by: Shruthi Soliz LPN - Fully Assessed Reason for Visit: Insurance Authorization [2133] Cmt: IVIG - Gammagard Prescriptions as of [...] Hip cont (more content not included)... Normal [facility] CNOVon 07-31-2023 CNOV Office Visit ([facility] ) ROMAIN MCDERMOTT ([id number]) 1940 F Date Time Provider Department 07/31/23 4:30 PM WINDY YUEN [facility] During your visit today, we recorded the [...] is able to get the IVIG at the [facility]. Office notes and IVIG order was faxed to Madelaine at [facility] at [phone] with confirmation. Our office Spoke to Madelaine and she stated that the patient will need documentation showing a failure or inability to tolerate the baclofen, in order to get approved for Gammagard. And needs progress note faxed to their office at [phone]. It seems like there was a misunderstanding; [...] syndrome Confirmed with qulitative and quantitative testing ([place]) demonstrating high ab titer som 65 lab [...] that she can receive the treatments at the [facility]. Will send off IVIG rx for insurance approval. RTC 3 months Allergies As of Date: 07/31/2023 (No Known Allergies) Date Reviewed: 07/31/2023 Reviewed by: Shruthi Soliz LPN - Fully Assessed Reason for Visit: Follow Up [171] Cmt: L heel pain. Blood sugar has been high. 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 Normal [facility] CNOVon 04-30-2023 CNOV Office Visit ([facility] ) ROMAIN MCDERMOTT ([id number]) 1940 F Date Time Provider Department 04/30/23 2:00 PM WINDY YUEN [facility] During your visit today, we recorded the following information about you: Pulse Blood pressure Weight Height 84/minute 112/64 55.3 kg 1.607 m Windy Yuen MD 05/27/2023 8:46 PM Addendum HPI: This is Ms. Romain Mcdermott a 83 year old female from who presents to the [facility] neurology department with a chief complaint of [...] tensing up like ironing board Living at [facility]; [facility] [place]; has been there for past four years. [...] Cerebellar: Inta (more content not included)... Normal [facility] SEND OUT TST 2022 REFERRAL LAB 1 [place] Normal [facility] Comment on above: Order Comment: Speci men Type: BLOOD SPECIMENOrdering Facility: [facility] Address: [address] [place] [address] Performed By: #### M ISC1 ####NON-INTERFACED REF LABSCLIA SEE SCANNED RESULTS TEST 1 GAD65 Ab Assay, S Normal [facility] Comment on above: Order Comment: Speci men Type: BLOOD SPECIMENOrdering Facility: [facility] Address: [address] [place] [address] Performed By: #### M ISC1 ####NON-INTERFACED REF LABSCLIA SEE SCANNED RESULTS TEST RESULTS 1 View results in Scanned Documents link when available. Normal [facility] Comment on above: Order Comment: Speci lyndsey Type: BLOOD SPECIMENOrdering Facility: [facility] Address: [address] [place] [address] Performed By: #### M ISC1 ####NON-INTERFACED REF LABSCLIA SEE SCANNED RESULTS Brian 2023 [facility] Telephone ([facility]) ROMAIN MCDERMOTT ([id number]) 1940 F Date Time Provider Department 03/20/23 [...] the appointment. The patient resides at the [facility]. Ph. [phone] I called the [facility] and spoke with Mona and the nurse [...] The appointment reminder was faxed to the [facility]. Allergies As of Date: 2023 (No Known [...] supp Bisacodyl Active 10 MG RC DAILY Dottie 1st, 2022 8:41pm - calcium carbonate 500 mg calcium [...] 1, controlled, without c*02/17/2018 Encounter Status:Closed by SSOA VELEZ on 03/25/23 Normal [facility] Glucose Glucometer (BldC) [M ass/Vol]on 04-29-2022 Glucose [Mass/Vol] 94 mg/dL 74-106 [facility] Work Phone: Comment on above: MANAGEMENT OF PATIEN T CARE PER NURSING PROTOCOL Absolute lymphocyte counton 04-28-2022 Lymphocytes Auto (Unsp spec) [#/Vol] 2.37 10*3/uL 0.83-4.51 [facility] Work Phone: Basophil percentageon 2021 Basophils/100 WBC (Bld) 0.3 % 0-1 [facility] Work Phone: Chloride [Moles/Vol] 102 mmol/L 98-107 [facility] Work Phone: Eosinophils/100 WBC (Bld) 0.1 % 0-5 [facility] Work Phone: Glucose [Mass/Vol] 112 mg/dL 74-106 [facility] Work Phone: Comment on above: Fasting Glucose resu lt from 100 to 125 mg/dL suggests IMPAIRED HOMEOSTASIS per A.D.A. criteria. Neutrophils (Bld) [#/Vol] 8.6 10*3/uL 2.0-7.7 [facility] Work Phone: Neutrophils/100 WBC (Bld) 74.7 % 47-70 [facility] Work Phone: Potassium [Moles/Vol] 5.4 mmol/L 3.5-5.1 [facility] Work Phone: Sodium [Moles/Vol] 137 mmol/L 136-145 [facility] Work Phone: WBC (Bld) [#/Vol] 11.5 10*3/uL 4.4-11.0 [facility] Work Phone: Blood erythrocytes count (nu mber/volume)on 04-28-2022 RBC (Bld) [#/Vol] 4.65 10*6/uL 4.2-5.4 [facility] Work Phone: Blood hemoglobin measurement (mass/volume)on 04-28-2022 Hemoglobin (Bld) [Mass/Vol] 13.2 g/dL 12.0-15.0 [facility] Work Phone: Blood lymphocytes/100 leukoc yteson 04-28-2022 Lymphocytes/100 WBC (Bld) 20.6 % 19-41 [facility] Work Phone: Blood monocytes/100 leukocyt eson 04-28-2022 Monocytes/100 WBC (Bld) 3.0 % 0-10 [facility] Work Phone: Blood platelet mean volumeon 04-28-2022 Platelet mean volume (Bld) [Entitic vol] 9.7 fL 6.2-12.0 [facility] Work Phone: Determination of erythrocyte mean corpuscular volume (MCV)on 04-28-2022 MCV (RBC) [Entitic vol] 88.8 fL 81-99 [facility] Work Phone: Hematocrit Auto (Bld) [Volum e fraction]on 04-28-2022 Hematocrit (Bld) [Volume fraction] 41.3 % 37-47 [facility] Work Phone: Laboratory - Chemistry and C hemistry - challengeon 04-28-2022 CO2 [Moles/Vol] 31.0 mmol/L 21.0-32.0 [facility] Work Phone: Magnesium [Mass/Vol] 2.0 mg/dL 1.6-2.6 [facility] Work Phone: Urea nitrogen/Creatinine [Mass ratio] 33.5 mg/mg 10-20 [facility] Work Phone: Laboratory - Hematology and Cell countson 04-28-2022 Erythrocyte distribution width (RBC) [Entitic vol] 44.3 fL 35.1-43.9 [facility] Work Phone: Erythrocyte distribution width (RBC) [Ratio] 13.6 % 11.6-14.6 [facility] Work Phone: Immature granulocytes/100 WBC (Bld) 1.300 % 0.0-0.9 [facility] Work Phone: Comment on above: IG% - Immature Granu locytes (promyelocytes, myelocytes and metamyelocytes) > 1% indicates that a LEFT SHIFT is Present. MCH (RBC) [Entitic mass] 28.4 pg 27.0-32.0 [facility] Work Phone: Nucleated RBC/100 WBC (Bld) [Ratio] 0 % 0-5 [facility] Work Phone: MCHC Auto (RBC) [Mass/Vol]on 04-28-2022 MCHC (RBC) [Mass/Vol] 32.0 g/dL 32-36 [facility] Work Phone: No Panel Informationon 04-28 Estimated Creatinine Clearance Calc 37.12 ml/min [facility] Work Phone: Estimated GFR (MDRD) Amer 118 mL/min >60 [facility] Work Phone: Comment on above: GFR Calc Estimated GFR (MDRD) Non-Af Amer 97 mL/min >60 [facility] Work Phone: Comment on above: Non- GFR Calc Platelets bldon 04-28-2022 Platelets (Bld) [#/Vol] 251 10*3/uL 150-450 [facility] Work Phone: Serum or plasma calcium roger urement (mass/volume)on 04-28-2022 Calcium [Mass/Vol] 9.3 mg/dL 8.5-10.1 [facility] Work Phone: Serum or plasma creatinine m easurement (mass/volume)on 04-28-2022 Creatinine [Mass/Vol] 0.63 mg/dL 0.55-1.02 [facility] Work Phone: Comment on above: The validity of the calculated GFR & GFRAA in patients over 70 years has not been determined. Clinical correlation is essential. Serum or plasma urea nitroge n measurement (mass/volume)on 04-28-2022 Urea nitrogen [Mass/Vol] 21 mg/dL 7-18 [facility] Work Phone: Thin prep Papanicolaou smear with manual screeningon 04-28-2022 Thin prep Papanicolaou smear with manual screening 4 5-15 [facility] Work Phone: XR Foot - right AP and Later al and obliqueon 04-19-2022 IMPRESSION: Unchanged deformity of the right foot, no acute bony process is identified. Sales Operations Coordinator: YOBANY Transcribe Date/Time: Apr 19 2022 7:25A Dictated by : LESA MCLAUGHLIN MD This examination was interpreted and the report reviewed and electronically signed by: LESA MCLAUGHLIN MD on Apr 19 2022 7:27AM EST [facility] * * *Final Report* * * DATE OF EXAM: Apr 18 2022 3:07PM MDO 5337 - XR FOOT 3V AP/LAT/OBL RT / PROCEDURE REASON: [id number] * * * * Physician Interpretation * * * * HISTORY: RIGHT FOOT PAIN. Pain . TECHNIQUE: XR FOOT 3V AP/LAT/OBL RT Laterality: RIGHT Number of different views (projections): 3 COMPARISON: February 2018 RESULT: Equinovarus deformity again identified. Bones are osteoporotic unchanged. No fracture. Joint spaces are grossly maintained. [facility] Provider, [facility] - 04/19/2022 * * *Final Report* * * DATE OF EXAM: Apr 18 2022 3:07PM MDO 5337 - XR FOOT 3V AP/LAT/OBL RT / PROCEDURE REASON: [id number] * * * * Physician Interpretation * * * * HISTORY: RIGHT FOOT PAIN. Pain . TECHNIQUE: XR FOOT 3V AP/LAT/OBL RT Laterality: RIGHT Number of different views (projections): 3 COMPARISON: February 2018 RESULT: Equinovarus deformity again identified. Bones are osteoporotic unchanged. No fracture. Joint spaces are grossly maintained. IMPRESSION IMPRESSION: Unchanged deformity of the right foot, no acute bony process is identified. Sales Operations Coordinator: [facility] Transcribe Date/Time: Apr 19 2022 7:25A Dictated by : LESA MCLAUGHLIN MD This examination was interpreted and the report reviewed and electronically signed by: LESA MCLAUGHLIN MD on Apr 19 2022 7:27AM EST [facility] XR Foot - right AP and Later al and obliqueOrdered By: [facility] Provider on 04-19-2022 [facility] XR FOOT 3V AP/LAT/OBL RTon 06-18-2021 XR FOOT 3V AP/LAT/OBL RT * * *Final Report* * * DATE OF EXAM: Apr 18 2022 3:07PM MDO 5337 - XR FOOT 3V AP/LAT/OBL RT / PROCEDURE REASON: [id number] * * * * Physician Interpretation * * * * HISTORY: RIGHT FOOT PAIN. Pain . TECHNIQUE: XR FOOT 3V AP/LAT/OBL RT Laterality: RIGHT Number of different views (projections): 3 COMPARISON: February 2018 RESULT: Equinovarus deformity again identified. Bones are osteoporotic unchanged. No fracture. Joint spaces are grossly maintained. IMPRESSION: Unchanged deformity of the right foot, no acute bony process is identified. Sales Operations Coordinator: [facility] Transcribe Date/Time: Apr 19 2022 7:25A Dictated by : LESA MCLAUGHLIN MD This examination was interpreted and the report reviewed and electronically signed by: LESA MCLAUGHLIN MD on Apr 19 2022 7:27AM EST [id number] [facility] XR Foot - right AP and Later al and obliqueon 04-18-2022 Radiology Study observation (narrative) [facility] URINE CULTURE,BACTERIALon URINE CULTURE,BACTERIAL PATIENT: ROMAIN MCDERMOTT LOCATION: [facility] BILL#: [id number] : 44 AGE: SEX: F ORDERED BY: RG MENCHACA SOURCE: URINE COLLECTED: 03/12/22 13:05 ANTIBIOTICS AT [place].: RECEIVED : 03/13/22 23:52 SITE: Clean Catch/Voided R E S U L T S URINE CULTURE,BACTERIAL FINAL 03/14/22 18:39 MULTIPLE ORGANISMS PRESENT, PROBABLE CONTAMINATION PLEASE REPEAT CULTURE. Normal [facility] Comment on above: Performed By: #### U [facility] #### [facility] [address] [place] [address] URINE CULTURE,BACTERIALon URINE CULTURE,BACTERIAL PATIENT: ROMAIN MCDERMOTT LOCATION: [facility] BILL#: [id number] : 44 AGE: SEX: F ORDERED BY: RG MENCHACA SOURCE: URINE COLLECTED: 03/08/22 05:42 ANTIBIOTICS AT [place].: RECEIVED : 03/08/22 20:26 SITE: Unspecified R E S U L T S URINE CULTURE,BACTERIAL FINAL 03/09/22 12:43 MULTIPLE ORGANISMS PRESENT, PROBABLE CONTAMINATION PLEASE REPEAT CULTURE. Normal [facility] Comment on above: Performed By: #### U [facility] #### [facility] [address] [place] [address] Absolute lymphocyte counton 03-01-2022 Lymphocytes Auto (Unsp spec) [#/Vol] 2.41 10*3/uL 0.83-4.51 [facility] Work Phone: Basophil percentageon 2021 Basophils/100 WBC (Bld) 0.5 % 0-1 [facility] Work Phone: Chloride [Moles/Vol] 101 mmol/L 98-107 [facility] Work Phone: Eosinophils/100 WBC (Bld) 1.7 % 0-5 [facility] Work Phone: Glucose [Mass/Vol] 237 mg/dL 74-106 [facility] Work Phone: Comment on above: Glucose result great er than or equal to 200 mg/dLsuggests DIABETES MELLITUS per A.D.A. criteria. Neutrophils (Bld) [#/Vol] 6.7 10*3/uL 2.0-7.7 [facility] Work Phone: Neutrophils/100 WBC (Bld) 66.4 % 47-70 [facility] Work Phone: Potassium [Moles/Vol] 4.4 mmol/L 3.5-5.1 [facility] Work Phone: Sodium [Moles/Vol] 136 mmol/L 136-145 [facility] Work Phone: WBC (Bld) [#/Vol] 10.0 10*3/uL 4.4-11.0 [facility] Work Phone: Blood erythrocytes count (nu mber/volume)on 03-01-2022 RBC (Bld) [#/Vol] 4.90 10*6/uL 4.2-5.4 [facility]: Blood hemoglobin measurement (mass/volume)on 03-01-2022 Hemoglobin (Bld) [Mass/Vol] 14.0 g/dL 12.0-15.0 [facility] Work Phone: Blood lymphocytes/100 leukoc yteson 03-01-2022 Lymphocytes/100 WBC (Bld) 24.0 % 19-41 [facility] Work Phone: Blood monocytes/100 leukocyt eson 03-01-2022 Monocytes/100 WBC (Bld) 6.6 % 0-10 [facility] Work Phone: Blood platelet mean volumeon 03-01-2022 Platelet mean volume (Bld) [Entitic vol] 10.1 fL 6.2-12.0 [facility] Work Phone: Determination of erythrocyte mean corpuscular volume (MCV)on 03-01-2022 MCV (RBC) [Entitic vol] 86.9 fL 81-99 [facility] Work Phone: Hematocrit Auto (Bld) [Volum e fraction]on 03-01-2022 Hematocrit (Bld) [Volume fraction] 42.6 % 37-47 [facility] Work Phone: Laboratory - Chemistry and C hemistry - challengeon 03-01-2022 CO2 [Moles/Vol] 27.0 mmol/L 21.0-32.0 [facility] Work Phone: Urea nitrogen/Creatinine [Mass ratio] 23.0 mg/mg 10-20 [facility] Work Phone: Laboratory - Hematology and Cell countson 03-01-2022 Erythrocyte distribution width (RBC) [Entitic vol] 44.4 fL 35.1-43.9 [facility] Work Phone: Erythrocyte distribution width (RBC) [Ratio] 13.8 % 11.6-14.6 [facility] Work Phone: Immature granulocytes/100 WBC (Bld) 0.800 % 0.0-0.9 [facility] Work Phone: Comment on above: IG% - Immature Granu locytes (promyelocytes, myelocytes and metamyelocytes) > 1% indicates that a LEFT SHIFT is Present. MCH (RBC) [Entitic mass] 28.6 pg 27.0-32.0 [facility] Work Phone: Nucleated RBC/100 WBC (Bld) [Ratio] 0 % 0-5 [facility] Work Phone: MCHC Auto (RBC) [Mass/Vol]on 03-01-2022 MCHC (RBC) [Mass/Vol] 32.9 g/dL 32-36 [facility] Work Phone: No Panel Informationon 03-01 Estimated Creatinine Clearance Calc 37.74 ml/min [facility] Work Phone: Estimated GFR (MDRD) Amer 69 mL/min >60 [facility] Work Phone: Comment on above: GFR Calc Estimated GFR (MDRD) Non-Af Amer 57 mL/min >60 [facility] Work Phone: Comment on above: Non- GFR Calc Platelets bldon 03-01-2022 Platelets (Bld) [#/Vol] 228 10*3/uL 150-450 [facility] Work Phone: Serum or plasma acetone roger urement (mass/volume)on 03-01-2022 Acetone [Mass/Vol] Negative NEG [facility] Work Phone: Serum or plasma calcium roger urement (mass/volume)on 03-01-2022 Calcium [Mass/Vol] 10.1 mg/dL 8.5-10.1 [facility] Work Phone: Serum or plasma creatinine m easurement (mass/volume)on 03-01-2022 Creatinine [Mass/Vol] 1.00 mg/dL 0.55-1.02 [facility] Work Phone: Comment on above: The validity of the calculated GFR & GFRAA in patients over 70 years has not been determined. Clinical correlation is essential. Serum or plasma urea nitroge n measurement (mass/volume)on 03-01-2022 Urea nitrogen [Mass/Vol] 23 mg/dL -18 [facility] Work Phone: Thin prep Papanicolaou smear with manual screeningon 03-01-2022 Thin prep Papanicolaou smear with manual screening 8 10-01 [facility] Work Phone: C peptide SerPl-mCncon 11-15 C peptide [Mass/Vol] <0.20 Low 0.81-3.85 [facility] Comment on above: Order Comment: Malini solorio Type: BLOOD SPECIMEN Ordering Facility: [facility] Address: [address] [place] [address] Result Comment: Resu lt rechecked. Performed By: #### 1 986-9 #### [facility] CLIA [id number] [address] [place] [address] [place] GAD65 Ab Ser-aCncon 11-16-19 22 Glutamate decarboxylase 65 Ab Qn (S) >120.0 High <=5.0 [facility] Comment on above: Order Comment: Malini solorio Type: BLOOD SPECIMEN Ordering Facility: [facility] Address: [address] [place] [address] Result Comment: Anti -glutamic acid decarboxylase antibody [...] correlation is required. Performed By: #### I NSLAB, 44265-3 #### [facility] CLIA [id number] [address] [place] [address] [place] GLUCOSE RANDOM BLDon 022 Glucose [Mass/Vol] 94 mg/dL 74 - 99 mg/dL [facility] Glucose SerPl-mCncon 022 Glucose [Mass/Vol] 94 mg/dL Normal 74-99 [facility] Comment on above: Order Comment: Malini solorio Type: BLOOD SPECIMEN Ordering Facility: [facility] Address: [address] [place], [place] [id number] Result Comment: The [place] [employer] (ADA) provides guidance for cutoff [...] Standards of Medical Care in Diabetes 2016, [place] [employer]. Diabetes Care. 2016.39(Suppl 1). Performed By: #### 2 345-7, 3016-3 #### [facility] CLIA [id number] [address] [place] [address] [place] Glutamate decarboxylase 65 A b Qn (S)on 11-15-2021 GLUTAMIC ACID DECARBOXYLAS AB QUALITATIVE Positive Abnormal Negative [facility] Comment on above: Order Comment: Malini solorio Type: BLOOD SPECIMEN Ordering Facility: [facility] Address: [address] [place], [place] [address] Performed By: #### I NSLAB, 38356-9 #### [facility] CLIA [id number] [address] [place] [address] [place] HEMOGLOBIN A1C (POC)on 11-15 HbA1c (Bld) [Mass fraction] 8.1 % Abnormal 4.2 - 5.6 % [facility] INSULIN ANTIBODY BLDon 11-15 Insulin Ab Qn (S) <0.4 Normal <0.4 [facility] Comment on above: Order Comment: Malini solorio Type: BLOOD SPECIMEN Ordering Facility: [facility] Address: [address] [place], [place] [id number] Result Comment: Anti -insulin antibody test is used as an aid in diagnosis and prognosis of autoimmune diabetes mellitus in combination with other tests such as anti-GAD65 and anti-IA-2 antibody. A single negative result cannot rule out autoimmune diabetes mellitus. The test is not reliable in patients who had previously received exogenous insulin. Clinical correlation is required. Performed By: #### I NSLAB, 12657-5 #### [facility] CLIA [id number] [address] [place] [address] [place] INSULIN ANTIBODY, QUALITATIVE Negative Normal Negative [facility] Comment on above: Order Comment: Malini solorio Type: BLOOD SPECIMEN Ordering Facility: [facility] Address: [address] [place] [address] Performed By: #### I NSLAB, 97443-7 #### [facility] CLIA [id number] [address] [place] [address] [place] INSULINOMA ASSOCIATED ANTIBO DY 2on 11-15-2021 IA 2 ANTIBODY BLOOD <5.4 Normal <7.5 [facility] Comment on above: Order Comment: Malini solorio Type: BLOOD SPECIMEN Ordering Facility: [facility] Address: [address] [place] [address] Result Comment: Anti -insulinoma associated antigen 2 (IA-2) antibody test is used as an aid in diagnosis of type I diabetes mellitus, to predict the risk of progression to type I diabetes mellitus among susceptible individuals, and to predict the necessity of insulin therapy in adult-onset diabetes mellitus. Clinical correlation is required. Performed By: #### I A2AB #### [facility] CLIA [id number] [address] [place] [address] [place] ISLET CELL ABon 11-15-2021 ISLET CELL AB <1:4 Normal <1:4 [facility] Comment on above: Order Comment: Malini solorio Type: BLOOD SPECIMEN Ordering Facility: [facility] Address: [address] [place] [address] Result Comment: INTE RPRETIVE INFORMATION: Islet Cell [...] developed and its performance characteristics determined by [employer]. It has not been cleared or approved by the [place] Food and Drug Administration. This test was performed in a CLIA certified laboratory and is intended for clinical purposes. Performed By: [facility] [address] [place] [address] Clinical Staff Anesthesiologist: Abdirizak Quintana MD, PhD Performed By: #### I SLET #### [facility] [employer] CLIA [id number] [address] [place] [address] T4 Free SerPl-mCncon 022 Free T4 [Mass/Vol] 1.9 ng/dL High 0.9-1.7 [facility] Comment on above: Order Comment: Speci men Type: BLOOD SPECIMEN Ordering Facility: [facility] Address: [address] [place] [address] Performed By: #### 3 024-7 #### [facility] CLIA [id number] [address] [place] [address] [place] TSH BLDon 11-15-2021 TSH Qn 0.073 m[IU]/L Low 0.270 - 4.200 mIU/L [facility] TSH SerPl-aCncon 11-15-2021 TSH Qn 0.073 m[IU]/L Low 0.270-4.200 [facility] Comment on above: Order Comment: Speci men Type: BLOOD SPECIMEN Ordering Facility: [facility] Address: [address] [place] [address] Performed By: #### 2 345-7, 3016-3 #### [facility] CLIA [id number] [address] [place] [address] [place] Absolute lymphocyte counton 08-30-2021 Lymphocytes Auto (Unsp spec) [#/Vol] 2.76 10*3/uL 0.83-4.51 [facility] Work Phone: Basophil percentageon 2021 Basophils/100 WBC (Bld) 0.5 % 0-1 [facility] Work Phone: Chloride [Moles/Vol] 104 mmol/L 98-107 [facility] Work Phone: Eosinophils/100 WBC (Bld) 1.3 % 0-5 [facility] Work Phone: Glucose [Mass/Vol] 205 mg/dL 74-106 [facility] Work Phone: Comment on above: Glucose result great er than or equal to 200 mg/dLsuggests DIABETES MELLITUS per A.D.A. criteria. Neutrophils (Bld) [#/Vol] 10.9 10*3/uL 2.0-7.7 [facility] Work Phone: Neutrophils/100 WBC (Bld) 70.9 % 47-70 [facility] Work Phone: Potassium [Moles/Vol] 4.2 mmol/L 3.5-5.1 [facility] Work Phone: Sodium [Moles/Vol] 138 mmol/L 136-145 [facility] Work Phone: WBC (Bld) [#/Vol] 15.4 10*3/uL 4.4-11.0 [facility] Work Phone: Blood erythrocytes count (nu mber/volume)on 08-30-2021 RBC (Bld) [#/Vol] 4.32 10*6/uL 4.2-5.4 [facility] Work Phone: Blood hemoglobin measurement (mass/volume)on 08-30-2021 Hemoglobin (Bld) [Mass/Vol] 12.9 g/dL 12.0-15.0 [facility] Work Phone: Blood lymphocytes/100 leukoc yteson 08-30-2021 Lymphocytes/100 WBC (Bld) 18.0 % 19-41 [facility] Work Phone: Blood monocytes/100 leukocyt eson 08-30-2021 Monocytes/100 WBC (Bld) 7.5 % 0-10 [facility] Work Phone: Blood platelet mean volumeon 08-30-2021 Platelet mean volume (Bld) [Entitic vol] 10.7 fL 6.2-12.0 [facility] Work Phone: Determination of erythrocyte mean corpuscular volume (MCV)on 08-30-2021 MCV (RBC) [Entitic vol] 88.0 fL 81-99 [facility] Work Phone: Hematocrit Auto (Bld) [Volum e fraction]on 08-30-2021 Hematocrit (Bld) [Volume fraction] 38.0 % 37-47 [facility] Work Phone: Laboratory - Chemistry and C hemistry - challengeon 08-30-2021 CO2 [Moles/Vol] 26.0 mmol/L 21.0-32.0 [facility] Work Phone: Urea nitrogen/Creatinine [Mass ratio] 20.2 mg/mg 10-20 [facility] Work Phone: Laboratory - Hematology and Cell countson 08-30-2021 Erythrocyte distribution width (RBC) [Entitic vol] 46.1 fL 35.1-43.9 [facility] Work Phone: Erythrocyte distribution width (RBC) [Ratio] 14.4 % 11.6-14.6 [facility] Work Phone: Immature granulocytes/100 WBC (Bld) 1.800 % 0.0-0.9 [facility] Work Phone: Comment on above: IG% - Immature Granu locytes (promyelocytes, myelocytes and metamyelocytes) > 1% indicates that a LEFT SHIFT is Present. MCH (RBC) [Entitic mass] 29.9 pg 27.0-32.0 [facility] Work Phone: Nucleated RBC/100 WBC (Bld) [Ratio] 0 % 0-5 [facility] Work Phone: MCHC Auto (RBC) [Mass/Vol]on 08-30-2021 MCHC (RBC) [Mass/Vol] 33.9 g/dL 32-36 [facility] Work Phone: No Panel Informationon 08-30 Estimated Creatinine Clearance Calc 27.76 ml/min [facility] Work Phone: Estimated GFR (MDRD) Amer 54 mL/min >60 [facility] Work Phone: Comment on above: GFR Calc Estimated GFR (MDRD) Non-Af Amer 44 mL/min >60 [facility] Work Phone: Comment on above: Non- GFR Calc Platelets bldon 08-30-2021 Platelets (Bld) [#/Vol] 236 10*3/uL 150-450 [facility] Work Phone: Serum or plasma calcium roger urement (mass/volume)on 08-30-2021 Calcium [Mass/Vol] 9.5 mg/dL 8.5-10.1 [facility] Work Phone: Serum or plasma creatinine m easurement (mass/volume)on 08-30-2021 Creatinine [Mass/Vol] 1.24 mg/dL 0.55-1.02 [facility] Work Phone: Comment on above: The validity of the calculated GFR & GFRAA in patients over 70 years has not been determined. Clinical correlation is essential. Serum or plasma urea nitroge n measurement (mass/volume)on 08-30-2021 Urea nitrogen [Mass/Vol] 25 mg/dL 7-18 [facility] Work Phone: Thin prep Papanicolaou smear with manual screeningon 08-30-2021 Thin prep Papanicolaou smear with manual screening 8 5-15 [facility] Work Phone: Absolute lymphocyte counton 08-19-2021 Lymphocytes Auto (Unsp spec) [#/Vol] 2.66 10*3/uL 0.83-4.51 [facility] Work Phone: Basophil percentageon 2021 Chloride [Moles/Vol] 108 mmol/L 98-107 [facility] Work Phone: Glucose [Mass/Vol] 86 mg/dL 74-106 [facility] Work Phone: Potassium [Moles/Vol] 3.6 mmol/L 3.5-5.1 [facility] Work Phone: Sodium [Moles/Vol] 137 mmol/L 136-145 [facility] Work Phone: Basophils/100 WBC (Bld) 0.4 % 0-1 [facility] Work Phone: Eosinophils/100 WBC (Bld) 0.4 % 0-5 [facility] Work Phone: Neutrophils (Bld) [#/Vol] 6.8 10*3/uL 2.0-7.7 [facility] Work Phone: Neutrophils/100 WBC (Bld) 66.0 % 47-70 [facility] Work Phone: WBC (Bld) [#/Vol] 10.3 10*3/uL 4.4-11.0 [facility] Work Phone: Blood erythrocytes count (nu mber/volume)on 08-19-2021 RBC (Bld) [#/Vol] 3.91 10*6/uL 4.2-5.4 [facility] Work Phone: Blood hemoglobin measurement (mass/volume)on 08-19-2021 Hemoglobin (Bld) [Mass/Vol] 11.3 g/dL 12.0-15.0 [facility] Work Phone: Blood lymphocytes/100 leukoc yteson 08-19-2021 Lymphocytes/100 WBC (Bld) 25.9 % 19-41 [facility] Work Phone: Blood monocytes/100 leukocyt eson 08-19-2021 Monocytes/100 WBC (Bld) 6.9 % 0-10 [facility] Work Phone: Blood platelet mean volumeon 08-19-2021 Platelet mean volume (Bld) [Entitic vol] 11.1 fL 6.2-12.0 [facility] Work Phone: Determination of erythrocyte mean corpuscular volume (MCV)on 08-19-2021 MCV (RBC) [Entitic vol] 85.9 fL 81-99 [facility] Work Phone: Glucose Glucometer (BldC) [M ass/Vol]on 08-19-2021 Glucose [Mass/Vol] 252 mg/dL 74-106 [facility] Work Phone: Comment on above: MANAGEMENT OF PATIEN T CARE PER NURSING PROTOCOL Hematocrit Auto (Bld) [Volum e fraction]on 08-19-2021 Hematocrit (Bld) [Volume fraction] 33.6 % 37-47 [facility] Work Phone: Laboratory - Chemistry and C hemistry - challengeon 08-19-2021 CO2 [Moles/Vol] 23.0 mmol/L 21.0-32.0 [facility] Work Phone: Urea nitrogen/Creatinine [Mass ratio] 24.0 mg/mg 10-20 [facility] Work Phone: Laboratory - Hematology and Cell countson 08-19-2021 Erythrocyte distribution width (RBC) [Entitic vol] 44.3 fL 35.1-43.9 [facility] Work Phone: Erythrocyte distribution width (RBC) [Ratio] 14.1 % 11.6-14.6 [facility] Work Phone: Immature granulocytes/100 WBC (Bld) 0.400 % 0.0-0.9 [facility] Work Phone: Comment on above: IG% - Immature Granu locytes (promyelocytes, myelocytes and metamyelocytes) > 1% indicates that a LEFT SHIFT is Present. MCH (RBC) [Entitic mass] 28.9 pg 27.0-32.0 [facility] Work Phone: Nucleated RBC/100 WBC (Bld) [Ratio] 0 % 0-5 [facility] Work Phone: MCHC Auto (RBC) [Mass/Vol]on 08-19-2021 MCHC (RBC) [Mass/Vol] 33.6 g/dL 32-36 [facility] Work Phone: No Panel Informationon 08-19 Estimated Creatinine Clearance Calc 34.42 ml/min [facility] Work Phone: Estimated GFR (MDRD) Amer 102 mL/min >60 [facility] Work Phone: Comment on above: GFR Calc Estimated GFR (MDRD) Non-Af Amer 84 mL/min >60 [facility] Work Phone: Comment on above: Non- GFR Calc Platelets bldon 08-19-2021 Platelets (Bld) [#/Vol] 160 10*3/uL 150-450 [facility] Work Phone: Serum or plasma calcium roger urement (mass/volume)on 08-19-2021 Calcium [Mass/Vol] 8.3 mg/dL 8.5-10.1 [facility] Work Phone: Serum or plasma creatinine m easurement (mass/volume)on 08-19-2021 Creatinine [Mass/Vol] 0.71 mg/dL 0.55-1.02 [facility] Work Phone: Comment on above: The validity of the calculated GFR & GFRAA in patients over 70 years has not been determined. Clinical correlation is essential. Serum or plasma urea nitroge n measurement (mass/volume)on 08-19-2021 Urea nitrogen [Mass/Vol] 17 mg/dL 7-18 [facility] Work Phone: Thin prep Papanicolaou smear with manual screeningon 08-19-2021 Thin prep Papanicolaou smear with manual screening 6 5-15 [facility] Work Phone: Absolute lymphocyte counton 08-18-2021 Lymphocytes Auto (Unsp spec) [#/Vol] 2.55 10*3/uL 0.83-4.51 [facility] Work Phone: Basophil percentageon 2021 Chloride [Moles/Vol] 103 mmol/L 98-107 [facility] Work Phone: Glucose [Mass/Vol] 314 mg/dL 74-106 [facility] Work Phone: Comment on above: Glucose result great er than or equal to 200 mg/dLsuggests DIABETES MELLITUS per A.D.A. criteria. Potassium [Moles/Vol] 6.1 mmol/L 3.5-5.1 [facility] Work Phone: Comment on above: Slight Hemolysis, Re sult may be falsely increased. Critical Result(s) Called at: 20:20:17 08/18/2021 by: Porsha mckenzie [facility]. Results read back by same. Sodium [Moles/Vol] 133 mmol/L 136-145 [facility] Work Phone: Basophil percentage 0 SEEN /hpf [facility] Work Phone: Basophils/100 WBC (Bld) 0.3 % 0-1 [facility] Work Phone: Bilirubin [Mass/Vol] 0.90 mg/dL 0.20-1.00 [facility] Work Phone: Comment on above: For patients on eltr ombopag therapy, use of Dimension [place] TBIL is not recommended. Eosinophils/100 WBC (Bld) 0.0 % 0-5 [facility] Work Phone: Neutrophils (Bld) [#/Vol] 9.2 10*3/uL 2.0-7.7 [facility] Work Phone: Neutrophils/100 WBC (Bld) 74.2 % 47-70 [facility] Work Phone: Protein [Mass/Vol] 7.7 g/dL 6.4-8.2 [facility] Work Phone: WBC (Bld) [#/Vol] 12.4 10*3/uL 4.4-11.0 [facility] Work Phone: Bilirubin Test strip Ql (U)o n 08-18-2021 Bilirubin Ql (U) Negative Negative [facility] Work Phone: Blood erythrocytes count (nu mber/volume)on 08-18-2021 RBC (Bld) [#/Vol] 4.91 10*6/uL 4.2-5.4 [facility] Work Phone: Blood hemoglobin measurement (mass/volume)on 08-18-2021 Hemoglobin (Bld) [Mass/Vol] 14.3 g/dL 12.0-15.0 [facility] Work Phone: Blood lymphocytes/100 leukoc yteson 08-18-2021 Lymphocytes/100 WBC (Bld) 20.6 % 19-41 [facility] Work Phone: Blood monocytes/100 leukocyt eson 08-18-2021 Monocytes/100 WBC (Bld) 4.1 % 0-10 [facility] Work Phone: Blood platelet mean volumeon 08-18-2021 Platelet mean volume (Bld) [Entitic vol] 10.9 fL 6.2-12.0 [facility] Work Phone: Determination of erythrocyte mean corpuscular volume (MCV)on 08-18-2021 MCV (RBC) [Entitic vol] 86.4 fL 81-99 [facility] Work Phone: Glucose Glucometer (BldC) [M ass/Vol]on 08-18-2021 Glucose [Mass/Vol] 276 mg/dL 74-106 [facility] Work Phone: Comment on above: MANAGEMENT OF PATIEN T CARE PER NURSING PROTOCOL HCO3 (BldA) [Moles/Vol]on HCO3 (Bld) [Moles/Vol] 19 mmol/L 22-26 [facility] Work Phone: Hematocrit Auto (Bld) [Volum e fraction]on 08-18-2021 Hematocrit (Bld) [Volume fraction] 42.4 % 37-47 [facility] Work Phone: Hyaline casts LM.LPF (Urine sed) [#/Area]on 08-18-2021 Hyaline casts (Urine sed) [#/Area] 5 /[LPF] [facility] Work Phone: Ketones Test strip Ql (U)on 08-18-2021 Ketones Ql (U) 150 mg/dl Negative [facility] Work Phone: Comment on above: CRITICAL VALUE *HCRI TICAL VALUE VERIFIED. CALLED TO [id number] Porshablaire Mckenzie.RESULTS READ BACK BY SAME . Laboratory - Chemistry and C hemistry - challengeon 08-18-2021 CO2 [Moles/Vol] 19.0 mmol/L 21.0-32.0 [facility] Work Phone: Urea nitrogen/Creatinine [Mass ratio] 22.8 mg/mg 10-20 [facility] Work Phone: CO2 [Moles/Vol] 20 mmol/L 23-33 [facility] Work Phone: ALP [Catalytic activity/Vol] 105 U/L 45-117 [facility] Work Phone: ALT [Catalytic activity/Vol] 13 U/L 13-56 [facility] Work Phone: Globulin (S) [Mass/Vol] 3.7 g/dL 2.2-4.2 [facility] Work Phone: Laboratory - Hematology and Cell countson 08-18-2021 Erythrocyte distribution width (RBC) [Entitic vol] 43.5 fL 35.1-43.9 [facility] Work Phone: Erythrocyte distribution width (RBC) [Ratio] 13.7 % 11.6-14.6 [facility] Work Phone: Immature granulocytes/100 WBC (Bld) 0.800 % 0.0-0.9 [facility] Work Phone: Comment on above: IG% - Immature Granu locytes (promyelocytes, myelocytes and metamyelocytes) > 1% indicates that a LEFT SHIFT is Present. MCH (RBC) [Entitic mass] 29.1 pg 27.0-32.0 [facility] Work Phone: Nucleated RBC/100 WBC (Bld) [Ratio] 0 % 0-5 [facility] Work Phone: MCHC Auto (RBC) [Mass/Vol]on 08-18-2021 MCHC (RBC) [Mass/Vol] 33.7 g/dL 32-36 [facility] Work Phone: Mucus LM Ql (Urine sed)on Mucus Ql (Urine sed) 0 SEEN /hpf [facility] Work Phone: Nitrite Test strip Ql (U)on 08-18-2021 Nitrite Ql (U) Negative Negative [facility] Work Phone: No Panel Informationon 08-18 Estimated Creatinine Clearance Calc 28.41 ml/min [facility] Work Phone: Estimated GFR (MDRD) Amer 52 mL/min >60 [facility] Work Phone: Comment on above: GFR Calc Estimated GFR (MDRD) Non-Af Amer 43 mL/min >60 [facility] Work Phone: Comment on above: Non- GFR Calc Bed Mix Venous Bld PCO2 at Pat Temp 42.1 mmHg 41-51 [facility] Work Phone: Blood Gas Specimen Type CATHY [facility] Work Phone: Venous Blood Base Excess -8 mmol/L -1.0-3.5 [facility] Work Phone: PO2 venouson 08-18-2021 Oxygen (BldV) [Partial pressure] 22 mm[Hg] 25-40 [facility] Work Phone: Platelets bldon 08-18-2021 Platelets (Bld) [#/Vol] 229 10*3/uL 150-450 [facility] Work Phone: Protein Test strip Ql (U)on 08-18-2021 Protein Ql (U) 30 mg/dl Negative [facility] Work Phone: Serum or plasma acetone roger urement (mass/volume)on 08-18-2021 Acetone [Mass/Vol] MODERATE NEG [facility] Work Phone: Serum or plasma albumin roger urement (mass/volume)on 08-18-2021 Albumin [Mass/Vol] 4.0 g/dL 3.2-5.0 [facility] Work Phone: Serum or plasma albumin/glob ulin mass ratioon 08-18-2021 Albumin/Globulin [Mass ratio] 1.1 {ratio} 0.9-2.4 [facility] Work Phone: Serum or plasma calcium roger urement (mass/volume)on 08-18-2021 Calcium [Mass/Vol] 9.3 mg/dL 8.5-10.1 [facility] Work Phone: Serum or plasma creatinine m easurement (mass/volume)on 08-18-2021 Creatinine [Mass/Vol] 1.27 mg/dL 0.55-1.02 [facility] Work Phone: Comment on above: The validity of the calculated GFR & GFRAA in patients over 70 years has not been determined. Clinical correlation is essential. Serum or plasma urea nitroge n measurement (mass/volume)on 08-18-2021 Urea nitrogen [Mass/Vol] 29 mg/dL 7-18 [facility] Work Phone: Squamous epithelial cells de tection in urine sediment by light microscopyon 08-18-2021 Epithelial cells.squamous LM Ql (Urine sed) 0 SEEN /hpf [facility] Work Phone: Thin prep Papanicolaou smear with manual screeningon 08-18-2021 Thin prep Papanicolaou smear with manual screening 11 5-15 [facility] Work Phone: Thin prep Papanicolaou smear with manual screening 10 U/L 15-37 [facility] Work Phone: Urine blood detectionon 04-0 RBC Ql (U) Negative Negative [facility] Work Phone: RBC Ql (U) 0 SEEN /hpf [facility] Work Phone: Urine clarityon 08-18-2021 Clarity (U) Clear Clear [facility] Work Phone: Urine color determinationon 08-18-2021 Color (U) Yellow Yellow [facility] Work Phone: Urine glucose detectionon Glucose Ql (U) 1000 mg/dl Normal [facility] Work Phone: Urine leukocyte esterase det ection by dipstickon 08-18-2021 Leukocyte esterase Test strip Ql (U) Negative Negative [facility] Work Phone: Urine pHon 08-18-2021 pH (U) 5.0 [pH] [facility] Work Phone: Urine sediment bacteria coun t by microscopy (number/high power field)on 08-18-2021 Bacteria LM.HPF (Urine sed) [#/Area] 0 /[HPF] None Seen [facility] Work Phone: Urine specific gravity measu rementon 08-18-2021 Specific gravity (U) [Rel density] 1.025 [facility] Work Phone: Urobilinogen Auto test strip Ql (U)on 08-18-2021 Urobilinogen Ql (U) Normal mg/dl Normal [facility] Work Phone: Vital signson 08-18-2021 Oxygen saturation in Blood 30 % 50-70 [facility] Work Phone: Whole blood hemoglobin A1c/t otal hemoglobin ratio (mass fraction)on 08-18-2021 HbA1c (Bld) [Mass fraction] 9.4 % 3.8-5.6 [facility] Work Phone: Comment on above: Normal < 5.7 % Predi abetic 5.7 - 6.4 % Diabetic >or= 6.5 % Please note range changes. pH measurementon 08-18-2021 pH (Unsp spec) 7.26 [pH] 7.32-7.42 [facility] Work Phone: Influenza virus A and B and SARS-CoV-2 (COVID-19) Ag panel - Upper respiratory specim SARS-CoV-2 (COVID-19) RNA SHABANA+probe Ql (Resp) [facility] Work Phone: Vital Signs Date Time Vital Sign Value Performing Clinician Christos corrigan 11-03-2024 08:09-0400 Body height 160.[address] Rg Menchaca MD Work Phone: [facility] 11-03-2024 08:09-0400 Body mass index (BMI) [Ratio] 24.4 kg/m2 Dr. Rg Menchaca MD Work Phone: [facility] 11-03-2024 08:09-0400 Body temperature 97.5 [degF] Dr. Rg Menchaca MD Work Phone: [facility] 11-03-2024 08:09-0400 Body weight 62.[address] Rg Menchaca MD Work Phone: [facility] 11-03-2024 08:09-0400 Diastolic blood pressure 68 mm[Hg] Dr. Rg Menchaca MD Work Phone: [facility] 11-03-2024 08:09-0400 Heart rate 86 /min Dr. Rg Menchaca MD Work Phone: [facility] 11-03-2024 08:09-0400 Respiratory rate 16 /min Dr. Rg Menchaca MD Work Phone: [facility] 11-03-2024 08:09-0400 Systolic blood pressure 116 mm[Hg] Dr. Rg Menchaca MD Work Phone: [facility] 10-08-2024 08:55-0400 Body temperature 97.1 [degF] Dr. Rg Menchaca MD Work Phone: [facility] 10-08-2024 08:55-0400 Diastolic blood pressure 71 mm[Hg] Dr. Rg Menchaca MD Work Phone: [facility] 10-08-2024 08:55-0400 Heart rate 68 /min Dr. Rg Menchaca MD Work Phone: [facility] 10-08-2024 08:55-0400 Respiratory rate 16 /min Dr. Rg Menchaca MD Work Phone: [facility] 10-08-2024 08:55-0400 SaO2% (BldA) [Mass fraction] 94 % Dr. Rg Menchaca MD Work Phone: [facility] 10-08-2024 08:55-0400 Systolic blood pressure 116 mm[Hg] Dr. Rg Menchaca MD Work Phone: 1(848)003-641562 [place] [address] 10-07-2024 08:31-0400 Body height 160.[address] Rg Menchaca MD Work Phone: 3(375)916-018635 [place] [address] 10-07-2024 08:31-0400 Body mass index (BMI) [Ratio] 23.3 kg/m2 Dr. Rg Menchaca MD Work Phone: 0(742)345-723335 [place] [address] 10-07-2024 08:31-0400 Body temperature 97.2 [degF] Dr. Rg Menchaca MD Work Phone: 7(762)999-970994 [address] 10-07-2024 08:31-0400 Body weight 59.[address] Rg Menchaca MD Work Phone: 0(192)711-572894 [address] 10-07-2024 08:31-0400 Diastolic blood pressure 63 mm[Hg] Dr. Rg Menchaca MD Work Phone: [facility] 10-07-2024 08:31-0400 Heart rate 72 /min Dr. Rg Menchaca MD Work Phone: 9(888)103-686462 [place] [address] 10-07-2024 08:31-0400 Respiratory rate 14 /min Dr. Rg Menchaca MD Work Phone: [facility] 10-07-2024 08:31-0400 SaO2% (BldA) [Mass fraction] 96 % Dr. Rg Menchaca MD Work Phone: [facility] 10-07-2024 08:31-0400 Systolic blood pressure 112 mm[Hg] Dr. Rg Menchaca MD Work Phone: 0(617)069-581594 [address] 10-06-2024 08:06-0400 Body height 160.[address] Rg Menchaca MD Work Phone: 8(472)595-382235 [place] [address] 10-06-2024 08:06-0400 Body mass index (BMI) [Ratio] 24.4 kg/m2 Dr. Rg Menchaca MD Work Phone: 0(600)643-928335 [place] [address] 10-06-2024 08:06-0400 Body temperature 97.4 [degF] Dr. Rg Menchaca MD Work Phone: 3(598)726-562235 [place] [address] 10-06-2024 08:06-0400 Body weight 62.[address] Rg Menchaca MD Work Phone: 8(664)627-636835 [place] [address] 10-06-2024 08:06-0400 Diastolic blood pressure 59 mm[Hg] Dr. Rg Menchaca MD Work Phone: 2(244)990-452135 [place] [address] 10-06-2024 08:06-0400 Heart rate 73 /min Dr. Rg Menchaca MD Work Phone: 7(696)757-370635 [place] [address] 10-06-2024 08:06-0400 Respiratory rate 16 /min Dr. Rg Menchaca MD Work Phone: 5(922)243-446635 [place] [address] 10-06-2024 08:06-0400 SaO2% (BldA) [Mass fraction] 92 % Dr. Rg Menchaca MD Work Phone: 9(147)513-146835 [place] [address] 10-06-2024 08:06-0400 Systolic blood pressure 102 mm[Hg] Dr. Rg Menchaca MD Work Phone: 5(771)444-624535 [place] [address] 09-10-2024 08:20-0400 Body height 160.[address] Rg Menchaca MD Work Phone: 0(957)852-986335 [place] [address] 09-10-2024 08:20-0400 Body mass index (BMI) [Ratio] 24.7 kg/m2 Dr. Rg Menchaca MD Work Phone: 0(863)001-967935 [place] [address] 09-10-2024 08:20-0400 Body temperature 96.8 [degF] Dr. Rg Menchaca MD Work Phone: 6(750)714-914035 [place] [address] 09-10-2024 08:20-0400 Body weight 63.[address] Rg Menchaca MD Work Phone: [facility] 09-10-2024 08:20-0400 Diastolic blood pressure 75 mm[Hg] Dr. Rg Menchaca MD Work Phone: [facility] 09-10-2024 08:20-0400 Heart rate 78 /min Dr. Rg Menchaca MD Work Phone: [facility] 09-10-2024 08:20-0400 Respiratory rate 16 /min Dr. Rg Menchaca MD Work Phone: [facility] 09-10-2024 08:20-0400 SaO2% (BldA) [Mass fraction] 95 % Dr. Rg Menchaca MD Work Phone: [facility] 09-10-2024 08:20-0400 Systolic blood pressure 135 mm[Hg] Dr. Rg Menchaca MD Work Phone: [facility] 09-09-2024 12:17-0400 Body temperature 96 [degF] Dr. Rg Menchaca MD Work Phone: [facility] 09-09-2024 12:17-0400 Diastolic blood pressure 76 mm[Hg] Dr. Rg Menchaca MD Work Phone: [facility] 09-09-2024 12:17-0400 Heart rate 68 /min Dr. Rg Menchaca MD Work Phone: [facility] 09-09-2024 12:17-0400 Respiratory rate 16 /min Dr. Rg Menchaca MD Work Phone: [facility] 09-09-2024 12:17-0400 Systolic blood pressure 117 mm[Hg] Dr. Rg Menchaca MD Work Phone: [facility] 09-09-2024 08:09-0400 Body height 160.[address] Rg Menchaca MD Work Phone: [facility] 09-09-2024 08:09-0400 Body mass index (BMI) [Ratio] 24.7 kg/m2 Dr. Rg Menchaca MD Work Phone: [facility] 09-09-2024 08:09-0400 Body weight 63.[address] Rg Menchaca MD Work Phone: [facility] 09-09-2024 08:09-0400 SaO2% (BldA) [Mass fraction] 94 % Dr. Rg Menchaca MD Work Phone: 4(040)157-775535 [place] [address] 09-08-2024 08:33-0400 Body mass index (BMI) [Ratio] 24.7 kg/m2 Dr. Rg Menchaca MD Work Phone: 9(993)733-028535 [place] [address] 09-08-2024 08:33-0400 Body temperature 96.5 [degF] Dr. Rg Menchaca MD Work Phone: 1(904)750-022935 [place] [address] 09-08-2024 08:33-0400 Body weight 63.[address] Rg Menchaca MD Work Phone: 9(620)077-576735 [place] [address] 09-08-2024 08:33-0400 Diastolic blood pressure 75 mm[Hg] Dr. Rg Menchaca MD Work Phone: 3(613)344-007235 [place] [address] 09-08-2024 08:33-0400 Heart rate 80 /min Dr. Rg Menchaca MD Work Phone: 9(723)490-286335 [place] [address] 09-08-2024 08:33-0400 Respiratory rate 16 /min Dr. Rg Menchaca MD Work Phone: 7(746)694-511835 [place] [address] 09-08-2024 08:33-0400 SaO2% (BldA) [Mass fraction] 93 % Dr. Rg Menchaca MD Work Phone: 6(543)187-766062 [place] [address] 09-08-2024 08:33-0400 Systolic blood pressure 126 mm[Hg] Dr. Rg Menchaca MD Work Phone: 0(966)894-903035 [place] [address] 08-13-2024 10:15-0400 Body height 160.[address] Rg Menchaca MD Work Phone: 8(816)358-311835 [place] [address] 08-13-2024 10:15-0400 Body mass index (BMI) [Ratio] 24.9 kg/m2 Dr. Rg Menchaca MD Work Phone: [facility] 08-13-2024 10:15-0400 Body temperature 96.6 [degF] Dr. Rg Menchaca MD Work Phone: [facility] 08-13-2024 10:15-0400 Body weight 63.[address] Rg Menchaca MD Work Phone: [facility] 08-13-2024 10:15-0400 Diastolic blood pressure 72 mm[Hg] Dr. Rg Menchaca MD Work Phone: [facility] 08-13-2024 10:15-0400 Heart rate 73 /min Dr. Rg Menchaca MD Work Phone: [facility] 08-13-2024 10:15-0400 Respiratory rate 16 /min Dr. Rg Menchaca MD Work Phone: [facility] 08-13-2024 10:15-0400 SaO2% (BldA) [Mass fraction] 95 % Dr. Rg Menchaca MD Work Phone: [facility] 08-13-2024 10:15-0400 Systolic blood pressure 121 mm[Hg] Dr. Rg Menchaca MD Work Phone: [facility] 08-12-2024 08:09-0400 Body height 160.[address] Rg Menchaca MD Work Phone: [facility] 08-12-2024 08:09-0400 Body mass index (BMI) [Ratio] 24.9 kg/m2 Dr. Rg Menchaca MD Work Phone: [facility] 08-12-2024 08:09-0400 Body temperature 96.8 [degF] Dr. Rg Menchaca MD Work Phone: [facility] 08-12-2024 08:09-0400 Body weight 63.[address] Rg Menchaca MD Work Phone: [facility] 08-12-2024 08:09-0400 Diastolic blood pressure 59 mm[Hg] Dr. Rg Menchaca MD Work Phone: [facility] 08-12-2024 08:09-0400 Heart rate 79 /min Dr. Rg Menchaca MD Work Phone: [facility] 08-12-2024 08:09-0400 Respiratory rate 16 /min Dr. Rg Menchaca MD Work Phone: [facility] 08-12-2024 08:09-0400 SaO2% (BldA) [Mass fraction] 95 % Dr. Rg Menchaca MD Work Phone: [facility] 08-12-2024 08:09-0400 Systolic blood pressure 104 mm[Hg] Dr. Rg Menchaca MD Work Phone: 4(469)691-879135 [place] [address] 08-11-2024 08:01-0400 Body height 160.[address] Rg Menchaca MD Work Phone: 0(683)259-803535 [place] [address] 08-11-2024 08:01-0400 Body mass index (BMI) [Ratio] 24.9 kg/m2 Dr. Rg Menchaca MD Work Phone: [facility] 08-11-2024 08:01-0400 Body temperature 96.8 [degF] Dr. Rg Menchaca MD Work Phone: 8(668)047-574435 [place] [address] 08-11-2024 08:01-0400 Body weight 63.[address] Rg Menchaca MD Work Phone: 3(350)529-502794 [address] 08-11-2024 08:01-0400 Diastolic blood pressure 73 mm[Hg] Dr. Rg Menchaca MD Work Phone: 0(653)053-007162 [place] [address] 08-11-2024 08:01-0400 Heart rate 83 /min Dr. Rg Menchaca MD Work Phone: 5(145)403-431535 [place] [address] 08-11-2024 08:01-0400 Respiratory rate 16 /min Dr. Rg Menchaca MD Work Phone: 8(401)759-696562 [place] [address] 08-11-2024 08:01-0400 SaO2% (BldA) [Mass fraction] 94 % Dr. Rg Menchaca MD Work Phone: 9(466)009-945635 [place] [address] 08-11-2024 08:01-0400 Systolic blood pressure 116 mm[Hg] Dr. Rg Menchaca MD Work Phone: 3(350)260-887835 [place] [address] 07-16-2024 08:39-0500 Body mass index (BMI) [Ratio] 24.3 kg/m2 Dr. Rg Menchaca MD Work Phone: 8(006)596-170435 [place] [address] 07-16-2024 08:39-0500 Body temperature 96.6 [degF] Dr. Rg Menchaca MD Work Phone: 0(176)982-206835 [place] [address] 07-16-2024 08:39-0500 Body weight 62.[address] Rg Menchaca MD Work Phone: 0(938)231-957735 [place] [address] 07-16-2024 08:39-0500 Diastolic blood pressure 71 mm[Hg] Dr. Rg Menchaca MD Work Phone: 9(038)103-374935 [place] [address] 07-16-2024 08:39-0500 Heart rate 80 /min Dr. Rg Menchaca MD Work Phone: 8(556)113-247735 [place] [address] 07-16-2024 08:39-0500 Respiratory rate 16 /min Dr. Rg Menchaca MD Work Phone: 9(893)508-976235 [place] [address] 07-16-2024 08:39-0500 SaO2% (BldA) [Mass fraction] 96 % Dr. Rg Menchaca MD Work Phone: 8(196)049-687535 [place] [address] 07-16-2024 08:39-0500 Systolic blood pressure 133 mm[Hg] Dr. Rg Menchaca MD Work Phone: 6(370)796-497562 [place] [address] 07-15-2024 13:02-0500 Body temperature 96.5 [degF] Dr. Rg Menchaca MD Work Phone: 0(468)638-073035 [place] [address] 07-15-2024 13:02-0500 Diastolic blood pressure 65 mm[Hg] Dr. Rg Menchaca MD Work Phone: 4(438)436-557535 [place] [address] 07-15-2024 13:02-0500 Heart rate 75 /min Dr. gR Menchaca MD Work Phone: 7(026)724-148235 [place] [address] 07-15-2024 13:02-0500 Systolic blood pressure 108 mm[Hg] Dr. Rg Menchaca MD Work Phone: 2(027)524-231235 [place] [address] 07-15-2024 08:35-0500 Body mass index (BMI) [Ratio] 24.3 kg/m2 Dr. Rg Menchaca MD Work Phone: 0(095)845-943535 [place] [address] 07-15-2024 08:35-0500 Body weight 62.[address] Rg Menchaca MD Work Phone: 7(765)203-797335 [place] [address] 07-15-2024 08:35-0500 Respiratory rate 16 /min Dr. Rg Menchaca MD Work Phone: 3(436)798-558835 [place] [address] 07-15-2024 08:35-0500 SaO2% (BldA) [Mass fraction] 95 % Dr. Rg Menchaca MD Work Phone: 3(779)574-749835 [place] [address] 07-14-2024 08:22-0500 Body mass index (BMI) [Ratio] 24.3 kg/m2 Dr. Rg Menchaca MD Work Phone: 2(987)196-803235 [place] [address] 07-14-2024 08:22-0500 Body temperature 97.1 [degF] Dr. Rg Menchaca MD Work Phone: 0(555)327-687535 [place] [address] 07-14-2024 08:22-0500 Body weight 62.[address] Rg Menchaca MD Work Phone: 9(535)635-683635 [place] [address] 07-14-2024 08:22-0500 Diastolic blood pressure 70 mm[Hg] Dr. Rg Menchaca MD Work Phone: 0(165)535-765935 [place] [address] 07-14-2024 08:22-0500 Heart rate 83 /min Dr. Rg Menchaca MD Work Phone: 0(467)431-756735 [place] [address] 07-14-2024 08:22-0500 Respiratory rate 16 /min Dr. Rg Menchaca MD Work Phone: 7(414)182-931635 [place] [address] 07-14-2024 08:22-0500 SaO2% (BldA) [Mass fraction] 95 % Dr. Rg Menchaca MD Work Phone: 4(884)802-547535 [place] [address] 07-14-2024 08:22-0500 Systolic blood pressure 102 mm[Hg] Dr. Rg Menchaca MD Work Phone: 5(942)561-568835 [place] [address] 06-18-2024 08:30-0500 Body temperature 96.9 [degF] Dr. Rg Menchaca MD Work Phone: 3(176)160-947535 [place] [address] 06-18-2024 08:30-0500 Diastolic blood pressure 61 mm[Hg] Dr. Rg Menchaca MD Work Phone: 4(020)125-921235 [place] [address] 06-18-2024 08:30-0500 Heart rate 71 /min Dr. Rg Menchaca MD Work Phone: 7(055)438-965635 [place] [address] 06-18-2024 08:30-0500 Respiratory rate 16 /min Dr. Rg Menchaca MD Work Phone: 2(171)067-832235 [place] [address] 06-18-2024 08:30-0500 SaO2% (BldA) [Mass fraction] 95 % Dr. Rg Menchaca MD Work Phone: 6(319)062-019035 [place] [address] 06-18-2024 08:30-0500 Systolic blood pressure 114 mm[Hg] Dr. Rg Menchaca MD Work Phone: 8(642)566-237535 [place] [address] 06-17-2024 08:43-0500 Body mass index (BMI) [Ratio] 24.3 kg/m2 Dr. Rg Menchaca MD Work Phone: 8(966)581-685835 [place] [address] 06-17-2024 08:43-0500 Body temperature 96.7 [degF] Dr. Rg Menchaca MD Work Phone: 4(772)643-011035 [place] [address] 06-17-2024 08:43-0500 Body weight 62.[address] Rg Menchaca MD Work Phone: 5(706)727-879535 [place] [address] 06-17-2024 08:43-0500 Diastolic blood pressure 62 mm[Hg] Dr. Rg Menchaca MD Work Phone: 6(670)443-205535 [place] [address] 06-17-2024 08:43-0500 Heart rate 78 /min Dr. Rg Menchaca MD Work Phone: 3(455)941-294035 [place] [address] 06-17-2024 08:43-0500 Respiratory rate 16 /min Dr. Rg Menchaca MD Work Phone: [facility] 06-17-2024 08:43-0500 SaO2% (BldA) [Mass fraction] 92 % Dr. Rg Menchaca MD Work Phone: 2(898)525-985562 [place] [address] 06-17-2024 08:43-0500 Systolic blood pressure 108 mm[Hg] Dr. Rg Menchaca MD Work Phone: 2(173)882-275135 [place] [address] 06-16-2024 08:20-0500 Body mass index (BMI) [Ratio] 23.4 kg/m2 Dr. Rg Menchaca MD Work Phone: 4(798)698-222235 [place] [address] 06-16-2024 08:20-0500 Body temperature 97.5 [degF] Dr. Rg Menchaca MD Work Phone: 8(601)528-844535 [place] [address] 06-16-2024 08:20-0500 Body weight [address] Rg Menchaca MD Work Phone: 0(836)326-779735 [place] [address] 06-16-2024 08:20-0500 Diastolic blood pressure 68 mm[Hg] Dr. Rg Menchaca MD Work Phone: 8(301)819-302135 [place] [address] 06-16-2024 08:20-0500 Heart rate 82 /min Dr. Rg Menchaca MD Work Phone: 2(318)546-907335 [place] [address] 06-16-2024 08:20-0500 Respiratory rate 16 /min Dr. Rg Menchaca MD Work Phone: 3(069)736-382794 [address] 06-16-2024 08:20-0500 SaO2% (BldA) [Mass fraction] 95 % Dr. Rg Menchaca MD Work Phone: 0(128)906-207562 [place] [address] 06-16-2024 08:20-0500 Systolic blood pressure 110 mm[Hg] Dr. Rg Menchaca MD Work Phone: 9(822)524-690294 [address] 05-22-2024 09:00-0500 Body temperature 97.2 [degF] Dr. Rg Menchaca MD Work Phone: 8(135)058-854762 [place] [address] 05-22-2024 09:00-0500 Diastolic blood pressure 84 mm[Hg] Dr. Rg Menchaca MD Work Phone: [facility] 05-22-2024 09:00-0500 Heart rate 65 /min Dr. Rg Menchaca MD Work Phone: [facility] 05-22-2024 09:00-0500 Respiratory rate 16 /min Dr. Rg Menchaca MD Work Phone: 9(676)096-153062 [place] [address] 05-22-2024 09:00-0500 SaO2% (BldA) [Mass fraction] 96 % Dr. Rg Menchaca MD Work Phone: 9(404)538-410562 [place] [address] 05-22-2024 09:00-0500 Systolic blood pressure 112 mm[Hg] Dr. Rg Menchaca MD Work Phone: 0(394)839-898194 [address] 05-21-2024 08:39-0500 Body temperature 96.9 [degF] Dr. Rg Menchaca MD Work Phone: 6(257)798-548594 [address] 05-21-2024 08:39-0500 Diastolic blood pressure 60 mm[Hg] Dr. Rg Menchaca MD Work Phone: 0(730)466-786294 [address] 05-21-2024 08:39-0500 Heart rate 74 /min Dr. Rg Menchaca MD Work Phone: 5(098)125-855762 [place] [address] 05-21-2024 08:39-0500 Respiratory rate 16 /min Dr. Rg Menchaca MD Work Phone: 9(956)662-912862 [place] [address] 05-21-2024 08:39-0500 SaO2% (BldA) [Mass fraction] 96 % Dr. Rg Menchaca MD Work Phone: 5(857)988-676562 [place] [address] 05-21-2024 08:39-0500 Systolic blood pressure 105 mm[Hg] Dr. Rg Menchaca MD Work Phone: [facility] 05-19-2024 08:26-0500 Body mass index (BMI) [Ratio] 25 kg/m2 Dr. Rg Menchaca MD Work Phone: 6(321)409-155562 [place] [address] 05-19-2024 08:26-0500 Body temperature 98.6 [degF] Dr. Rg Menchaca MD Work Phone: [facility] 05-19-2024 08:26-0500 Body weight 63.[address] Rg Menchaca MD Work Phone: [facility] 05-19-2024 08:26-0500 Diastolic blood pressure 79 mm[Hg] Dr. Rg Menchaca MD Work Phone: [facility] 05-19-2024 08:26-0500 Heart rate 88 /min Dr. Rg Menchaca MD Work Phone: [facility] 05-19-2024 08:26-0500 Respiratory rate 16 /min Dr. gR Menchaca MD Work Phone: [facility] 05-19-2024 08:26-0500 SaO2% (BldA) [Mass fraction] 96 % Dr. Rg Menchaca MD Work Phone: [facility] 05-19-2024 08:26-0500 Systolic blood pressure 114 mm[Hg] Dr. Rg Menchaca MD Work Phone: [facility] 04-23-2024 08:22-0500 Body mass index (BMI) [Ratio] 24.5 kg/m2 Dr. Rg Menchaca MD Work Phone: [facility] 04-23-2024 08:22-0500 Body temperature 97 [degF] Dr. Rg Menchaca MD Work Phone: [facility] 04-23-2024 08:22-0500 Body weight 62.[address] Rg Menchaca MD Work Phone: [facility] 04-23-2024 08:22-0500 Diastolic blood pressure 71 mm[Hg] Dr. Rg Menchaca MD Work Phone: [facility] 04-23-2024 08:22-0500 Heart rate 76 /min Dr. Rg Menchaca MD Work Phone: [facility] 04-23-2024 08:22-0500 Respiratory rate 16 /min Dr. Rg Menchaca MD Work Phone: [facility] 04-23-2024 08:22-0500 SaO2% (BldA) [Mass fraction] 95 % Dr. Rg Menchaca MD Work Phone: 5(058)288-713694 [address] 04-23-2024 08:22-0500 Systolic blood pressure 117 mm[Hg] Dr. Rg Menchaca MD Work Phone: 2(238)615-939135 [place] [address] 04-22-2024 08:27-0500 Body mass index (BMI) [Ratio] 24.5 kg/m2 Dr. Rg Menchaca MD Work Phone: 9(283)392-336835 [place] [address] 04-22-2024 08:27-0500 Body temperature 97.2 [degF] Dr. Rg Menchaca MD Work Phone: 4(491)250-437435 [place] [address] 04-22-2024 08:27-0500 Body weight 62.[address] Rg Menchaca MD Work Phone: 2(345)829-391235 [place] [address] 04-22-2024 08:27-0500 Diastolic blood pressure 68 mm[Hg] Dr. Rg Menchaca MD Work Phone: 0(180)597-692935 [place] [address] 04-22-2024 08:27-0500 Heart rate 72 /min Dr. Rg Menchaca MD Work Phone: 2(275)137-765435 [place] [address] 04-22-2024 08:27-0500 Respiratory rate 16 /min Dr. Rg Menchaca MD Work Phone: 2(513)886-668835 [place] [address] 04-22-2024 08:27-0500 SaO2% (BldA) [Mass fraction] 97 % Dr. Rg Menchaca MD Work Phone: 5(050)667-935335 [place] [address] 04-22-2024 08:27-0500 Systolic blood pressure 115 mm[Hg] Dr. Rg Menchaca MD Work Phone: 3(269)590-394535 [place] [address] 04-21-2024 08:25-0500 Body mass index (BMI) [Ratio] 24.4 kg/m2 Dr. Rg Menchaca MD Work Phone: 3(019)240-195835 [place] [address] 04-21-2024 08:25-0500 Body temperature 96.5 [degF] Dr. Rg Menchaca MD Work Phone: [facility] 04-21-2024 08:25-0500 Body weight 62.[address] Rg Menchaca MD Work Phone: [facility] 04-21-2024 08:25-0500 Diastolic blood pressure 57 mm[Hg] Dr. Rg Menchaca MD Work Phone: [facility] 04-21-2024 08:25-0500 Heart rate 77 /min Dr. Rg Menchaca MD Work Phone: [facility] 04-21-2024 08:25-0500 Respiratory rate 16 /min Dr. Rg Menchaca MD Work Phone: [facility] 04-21-2024 08:25-0500 SaO2% (BldA) [Mass fraction] 94 % Dr. Rg Menchaca MD Work Phone: [facility] 04-21-2024 08:25-0500 Systolic blood pressure 104 mm[Hg] Dr. Rg Menchaca MD Work Phone: [facility] 02-05-2024 11:19-0400 Diastolic blood pressure 68 mm[Hg] Windy Yuen MD Work Phone: [facility] 02-05-2024 11:19-0400 Heart rate 81 /min Windy Yuen MD Work Phone: [facility] 02-05-2024 11:19-0400 SaO2% (BldA) [Mass fraction] 94 % Windy Yuen MD Work Phone: [facility] 02-05-2024 11:19-0400 Systolic blood pressure 116 mm[Hg] Windy Yuen MD Work Phone: [facility] 09-13-2023 08:36-0400 Body height 160.[address] [facility] 09-13-2023 08:36-0400 Body temperature 98.1 [degF] [facility] 09-13-2023 08:36-0400 Diastolic blood pressure 68 mm[Hg] [facility] 09-13-2023 08:36-0400 Heart rate 77 /min [facility] 09-13-2023 08:36-0400 Respiratory rate 16 /min [facility] 09-13-2023 08:36-0400 SaO2% (BldA) [Mass fraction] 94 % [facility] 09-13-2023 08:36-0400 Systolic blood pressure 115 mm[Hg] [facility] 09-12-2023 09:03-0400 Body height 160.[address] [facility] 09-12-2023 09:03-0400 Body mass index (BMI) [Ratio] 23.4 kg/m2 [facility] 09-12-2023 09:03-0400 Body temperature 98.5 [degF] [facility] 09-12-2023 09:03-0400 Body weight [address] [facility] 09-12-2023 09:03-0400 Diastolic blood pressure 75 mm[Hg] [facility] 09-12-2023 09:03-0400 Heart rate 70 /min [facility] 09-12-2023 09:03-0400 Respiratory rate 16 /min [facility] 09-12-2023 09:03-0400 SaO2% (BldA) [Mass fraction] 95 % [facility] 09-12-2023 09:03-0400 Systolic blood pressure 130 mm[Hg] [facility] 09-11-2023 08:32-0400 Body height 160.[address] [facility] 09-11-2023 08:32-0400 Body temperature 98.3 [degF] [facility] 09-11-2023 08:32-0400 Diastolic blood pressure 64 mm[Hg] [facility] 09-11-2023 08:32-0400 Heart rate 77 /min [facility] 09-11-2023 08:32-0400 Respiratory rate 16 /min [facility] 09-11-2023 08:32-0400 SaO2% (BldA) [Mass fraction] 95 % [facility] 09-11-2023 08:32-0400 Systolic blood pressure 109 mm[Hg] [facility] 09-10-2023 08:39-0400 Body height 160.[address] [facility] 09-10-2023 08:39-0400 Body mass index (BMI) [Ratio] 23.7 kg/m2 [facility] 09-10-2023 08:39-0400 Body temperature 98 [degF] [facility] 09-10-2023 08:39-0400 Body weight 60.[address] [facility] 09-10-2023 08:39-0400 Diastolic blood pressure 67 mm[Hg] [facility] 09-10-2023 08:39-0400 Heart rate 80 /min [facility] 09-10-2023 08:39-0400 Respiratory rate 16 /min [facility] 09-10-2023 08:39-0400 SaO2% (BldA) [Mass fraction] 96 % [facility] 09-10-2023 08:39-0400 Systolic blood pressure 115 mm[Hg] [facility] 09-09-2023 13:39-0400 Body temperature 97.1 [degF] [facility] 09-09-2023 13:39-0400 Diastolic blood pressure 65 mm[Hg] [facility] 09-09-2023 13:39-0400 Heart rate 72 /min [facility] 09-09-2023 13:39-0400 Respiratory rate 16 /min [facility] 09-09-2023 13:39-0400 SaO2% (BldA) [Mass fraction] 97 % [facility] 09-09-2023 13:39-0400 Systolic blood pressure 110 mm[Hg] [facility] 09-09-2023 08:39-0400 Body height 160.[address] [facility] 07-31-2023 16:35-0400 Body height 160.7 cm Windy Yuen MD Work Phone: [facility] 07-31-2023 16:35-0400 Body weight 59.88 kg Winyd Yuen MD Work Phone: [facility] 07-31-2023 16:35-0400 Diastolic blood pressure 50 mm[Hg] Windy Yuen MD Work Phone: [facility] 07-31-2023 16:35-0400 Heart rate 72 /min Windy Yuen MD Work Phone: [facility] 07-31-2023 16:35-0400 SaO2% (BldA) [Mass fraction] 96 % Windy Yuen MD Work Phone: [facility] 07-31-2023 16:35-0400 Systolic blood pressure 91 mm[Hg] Windy Yuen MD Work Phone: [facility] 04-29-2022 04:53-0500 Diastolic blood pressure 82 mm[Hg] [facility] Work Phone: 04-29-2022 04:53-0500 Heart rate 70 /min [facility] Work Phone: 04-29-2022 04:53-0500 Respiratory rate 16 /min [facility] Work Phone: 04-29-2022 04:53-0500 SaO2% (BldA) [Mass fraction] 98 % [facility] Work Phone: 04-29-2022 04:53-0500 Systolic blood pressure 124 mm[Hg] [facility] Work Phone: 04-28-2022 21:57-0500 Body height 160.[address] [facility] Work Phone: 04-28-2022 21:57-0500 Body mass index (BMI) [Ratio] 24.1 kg/m2 [facility] Work Phone: 04-28-2022 21:57-0500 Body temperature 96.2 [degF] [facility] Work Phone: 04-28-2022 21:57-0500 Body weight 61.[address] [facility] Work Phone: 03-01-2022 13:29-0400 Diastolic blood pressure 63 mm[Hg] [facility] Work Phone: 03-01-2022 13:29-0400 Heart rate 77 /min [facility] Work Phone: 03-01-2022 13:29-0400 Respiratory rate 18 /min [facility] Work Phone: 03-01-2022 13:29-0400 SaO2% (BldA) [Mass fraction] 93 % [facility] Work Phone: 03-01-2022 13:29-0400 Systolic blood pressure 102 mm[Hg] [facility] Work Phone: 03-01-2022 10:29-0400 Body temperature 97.2 [degF] [facility] Work Phone: 03-01-2022 10:25-0400 Body mass index (BMI) [Ratio] 21.9 kg/m2 [facility] Work Phone: 03-01-2022 10:25-0400 Body weight 56.[address] [facility] Work Phone: 11-15-2021 11:23-0400 Body weight 55.79 kg La Nena Lala MD Work Phone: [facility] 11-15-2021 11:23-0400 Diastolic blood pressure 67 mm[Hg] La Nena Lala MD Work Phone: [facility] 11-15-2021 11:23-0400 Heart rate 85 /min La Nena Lala MD Work Phone: [facility] 11-15-2021 11:23-0400 Respiratory rate 16 /min La Nena Lala MD Work Phone: [facility] 11-15-2021 11:23-0400 SaO2% (BldA) [Mass fraction] 99 % La Nena Lala MD Work Phone: [facility] 11-15-2021 11:23-0400 Systolic blood pressure 105 mm[Hg] La Nena Lala MD Work Phone: [facility] 08-30-2021 20:07-0400 Diastolic blood pressure 74 mm[Hg] Dr. Rg Menchaca Work Phone: [facility] Work Phone: 08-30-2021 20:07-0400 Heart rate 69 /min Dr. Rg Menchaca Work Phone: [facility] Work Phone: 08-30-2021 20:07-0400 Respiratory rate 18 /min Dr. Rg Menchaca Work Phone: [facility] Work Phone: 08-30-2021 20:07-0400 SaO2% (BldA) [Mass fraction] 96 % Dr. Rg Menchaca Work Phone: [facility] Work Phone: 08-30-2021 20:07-0400 Systolic blood pressure 94 mm[Hg] Dr. Rg Menchaca Work Phone: [facility] Work Phone: 08-30-2021 18:05-0400 Body height 154.[address] Rg Menchaca Work Phone: [facility] Work Phone: 08-30-2021 18:05-0400 Body mass index (BMI) [Ratio] 25.9 kg/m2 Dr. Rg Menchaca Work Phone: [facility] Work Phone: 08-30-2021 18:05-0400 Body temperature 96.8 [degF] Dr. Rg Menchaca Work Phone: [facility] Work Phone: 08-30-2021 18:05-0400 Body weight 62.[address] Rg Menchaca Work Phone: [facility] Work Phone: 08-19-2021 14:30-0400 Body temperature 98.9 [degF] Dr. Rg Menchaca Work Phone: [facility] Work Phone: 08-19-2021 14:30-0400 Diastolic blood pressure 68 mm[Hg] Dr. Rg Menchaca Work Phone: [facility] Work Phone: 08-19-2021 14:30-0400 Heart rate 88 /min Dr. Rg Menchaca Work Phone: [facility] Work Phone: 08-19-2021 14:30-0400 Respiratory rate 18 /min Dr. Rg Menchaca Work Phone: [facility] Work Phone: 08-19-2021 14:30-0400 SaO2% (BldA) [Mass fraction] 96 % Dr. Rg Menchaca Work Phone: [facility] Work Phone: 08-19-2021 14:30-0400 Systolic blood pressure 104 mm[Hg] Dr. Rg Menchaca Work Phone: [facility] Work Phone: 08-19-2021 12:54-0400 Body height 154.[address] Rg Menchaca Work Phone: [facility] Work Phone: 08-19-2021 12:54-0400 Body weight 53.[address] Rg Menchaca Work Phone: [facility] Work Phone: 08-18-2021 21:27-0400 Body mass index (BMI) [Ratio] 22.2 kg/m2 Dr. Rg Menchaca Work Phone: [facility] Work Phone: 08-18-2021 20:57-0400 Body temperature 98 [degF] [facility] Work Phone: 08-18-2021 20:57-0400 Diastolic blood pressure 62 mm[Hg] [facility] Work Phone: 08-18-2021 20:57-0400 Heart rate 74 /min [facility] Work Phone: 08-18-2021 20:57-0400 Respiratory rate 16 /min [facility] Work Phone: 08-18-2021 20:57-0400 SaO2% (BldA) [Mass fraction] 98 % [facility] Work Phone: 08-18-2021 20:57-0400 Systolic blood pressure 106 mm[Hg] [facility] Work Phone: 08-18-2021 17:31-0400 Body height 159.[address] [facility] Work Phone: 08-18-2021 17:31-0400 Body mass index (BMI) [Ratio] 21.4 kg/m2 [facility] Work Phone: 08-18-2021 17:31-0400 Body weight 54.[address] [facility] Work Phone: Encounters Encounter Date Encounter Type Care Provider Facility Start: 11-05-2024 ambulatory Windy Spolter Facilit y:[facility] Start: 11-04-2024 ambulatory Windy Spolter Facilit y:[facility] Start: 11-03-2024 End: 11-03-2024 ambulatory Windy Spoer Facility:[facility] Start: 11-03-2024 End: 11-03-[address] Windy Yuen MD [facility] Work Phone: Start: 10-08-2024 End: 10-08-[address] Windy Yuen MD [facility] Work Phone: Start: 10-08-2024 End: 10-08-2024 ambulatory Windy Yuen Facility:[facility] Start: 10-07-2024 End: 10-07-[address] Windy Yuen MD [facility] Work Phone: Start: 10-07-2024 End: 10-07-[address] Rg Menchaca MD Work Phone: [facility] Work Phone: Start: 10-06-2024 End: 10-06-[address] Windy Yuen MD [facility] Work Phone: Start: 10-06-2024 End: 10-06-[address] Rg Menchaca MD Work Phone: [facility] Work Phone: Start: 09-10-2024 End: 09-10-[address] Windy Yuen MD [facility] Work Phone: Start: 09-10-2024 End: 09-10-[address] Rg Menchaca MD Work Phone: [facility] Work Phone: Start: 09-09-2024 End: 09-09-[address] Windy Yuen MD [facility] Work Phone: Start: 09-09-2024 End: 09-09-[address] Rg Menchaca MD Work Phone: [facility] Work Phone: Start: 09-08-2024 End: 09-08-[address] Windy Yuen MD [facility] Work Phone: Start: 09-08-2024 End: 09-08-2024 ambulatory Windy Yuen Facility:[facility] Start: 08-13-2024 End: 08-13-[address] Windy Yuen MD [facility] Work Phone: Start: 08-13-2024 End: 08-13-[address] Rg Menchaca MD Work Phone: [facility] Work Phone: Start: 08-12-2024 End: 08-12-[address] Windy Yuen MD [facility] Work Phone: Start: 08-12-2024 End: 08-12-[address] Rg eMnchaca MD Work Phone: [facility] Work Phone: Start: 08-11-2024 End: 08-11-[address] Windy Yuen MD [facility] Work Phone: Start: 08-11-2024 End: 08-11-[address] Rg Menchaca MD Work Phone: [facility] Work Phone: Start: 07-16-2024 End: 07-16-[address] Windy Yuen MD [facility] Work Phone: Start: 07-16-2024 End: 07-16-2024 ambulatory [facility] Start: 07-15-2024 End: 07-15-[address] Windy Yuen MD [facility] Work Phone: Start: 07-15-2024 End: 07-15-2024 ambulatory [facility] Start: 07-14-2024 End: 07-14-[address] Windy Yuen MD [facility] Work Phone: Start: 07-14-2024 End: 07-14-2024 ambulatory [facility] Start: 06-18-2024 End: 06-18-[address] Windy Yuen MD [facility] Work Phone: Start: 06-18-2024 End: 06-18-2024 ambulatory [facility] Start: 06-17-2024 End: 06-17-[address] Windy Yuen MD [facility] Work Phone: Start: 06-17-2024 End: 06-17-[address] [facility] Facility:[facility] Start: 06-16-2024 End: 06-16-[address] Windy Yuen MD [facility] Work Phone: Start: 06-16-2024 End: 06-16-2024 [facility] Start: 05-22-2024 End: 05-22-[address] Windy Yuen MD [facility] Work Phone: Start: 05-22-2024 End: 05-22-2024 ambulatory [facility] Start: 05-21-2024 End: 05-21-[address] Windy Yuen MD [facility] Work Phone: Start: 05-21-2024 End: 05-21-2024 [facility] Start: 05-19-2024 End: 05-19-[address] Windy Yuen MD [facility] Work Phone: Start: 05-19-2024 End: 05-19-2024 [facility] Start: 04-23-2024 End: 04-23-[address] Windy Yuen MD [facility] Work Phone: Start: 04-23-2024 End: 04-23-2024 ambulatory [facility] Start: 04-22-2024 End: 04-22-[address] Windy Yuen MD [facility] Work Phone: Start: 04-22-2024 End: 04-22-2024 ambulatory [facility] Start: 04-21-2024 End: 04-21-[address] Windy Yuen MD [facility] Work Phone: Start: 04-21-2024 End: 04-21-2024 ambulatory Windy Spolter Facility:[facility] Start: 03-26-2024 End: 03-26-2024 ambulatory Windy Spolter Facility:[facility] Start: 03-25-2024 End: 03-25-2024 ambulatory Windy Spolter Facility:[facility] Start: 03-24-2024 End: 03-24-2024 ambulatory Windy Spolter Facility:[facility] Start: 02-27-2024 End: 02-27-2024 ambulatory Windy Spolter Facility:[facility] Start: 02-26-2024 End: 02-26-2024 ambulatory Windy Spolter Facility:[facility] Start: 02-25-2024 End: 02-25-2024 ambulatory Windy Spolter Facility:[facility] Start: 02-06-2024 End: 02-06-2024 Telephone encounter Windy Yuen MD Work Phone: Neurology Comment on above: Orders (IVIG) Start: 02-05-2024 End: 02-05-2024 ambulatory WINDY S SPOLTER Facility:[facility] Start: 02-05-2024 End: 02-05-2024 Patient encounter procedure Windy Yuen MD Work Phone: Neurology Comment on above: Stiff person syndrom e Start: 01-31-2024 End: 01-31-2024 ambulatory Windy Spolter Facility:[facility] Start: 01-30-2024 End: 01-30-2024 ambulatory Windy Spolter Facility:[facility] Start: 01-29-2024 End: 01-29-2024 ambulatory Windy Spolter Facility:[facility] Start: 01-28-2024 End: 01-28-2024 ambulatory Windy Spolter Facility:[facility] Start: 01-27-2024 End: 01-27-2024 ambulatory Windy Spolter Facility:[facility] Start: 01-03-2024 End: 01-03-2024 ambulatory Windy Spolter Facility:[facility] Start: 01-02-2024 End: 01-02-2024 ambulatory Windy Spolter Facility:[facility] Start: 01-01-2024 End: 01-01-2024 ambulatory Windy Spolter Facility:[facility] Start: 12-31-2023 End: 12-31-2023 ambulatory Windy Spolter Facility:[facility] Start: 12-30-2023 End: 12-30-2023 ambulatory Windy Spolter Facility:[facility] Start: 12-06-2023 End: 12-06-2023 ambulatory Windy Spolter Facility:[facility] Start: 12-05-2023 End: 12-05-2023 ambulatory Windy Spolter Facility:[facility] Start: 12-04-2023 End: 12-04-2023 ambulatory Windy Spolter Facility:[facility] Start: 12-03-2023 End: 12-03-2023 ambulatory Windy Spolter Facility:[facility] Start: 12-02-2023 End: 12-02-2023 ambulatory Windy Spolter Facility:[facility] Start: 11-24-2023 Telephone encounter Windy Yuen MD Work Phone: Neurology Comment on above: Appointment (Update faxed to [facility] for appointment 02/05/24) Start: 11-14-2023 Telephone encounter Windy Yuen MD Work Phone: Neurology Start: 11-08-2023 End: 11-08-2023 ambulatory Windy Spolter Facility:[facility] Start: 11-07-2023 End: 11-07-2023 ambulatory Windy Spolter Facility:[facility] Start: 11-06-2023 End: 11-06-2023 ambulatory Windy Spolter Facility:[facility] Start: 11-05-2023 End: 11-05-2023 ambulatory Windy Spolter Facility:[facility] Start: 11-04-2023 End: 11-04-2023 ambulatory Windy Spolter Facility:[facility] Start: 10-29-2023 Telephone encounter Windy Yuen MD Work Phone: Neurology Comment on above: Appointment (Appoint ment Update Faxed to [facility] for 12/17/23) Start: 10-15-2023 Telephone encounter Windy Yuen MD Work Phone: Neurology Comment on above: Patient Update Start: 09-25-2023 Telephone encounter Windy Yuen MD Work Phone: Neurology Comment on above: Appointment Start: 09-18-2023 Telephone encounter Windy Yuen MD Work Phone: Neurology Comment on above: Medication Question Start: 09-13-2023 End: 09-13-2023 ambulatory [facility] Work Phone: Start: 09-13-2023 End: 09-13-2023 Patient encounter procedure [facility] Work Phone: Start: 09-12-2023 End: 09-12-2023 ambulatory [facility] Work Phone: Start: 09-12-2023 End: 09-12-2023 Patient encounter procedure [facility] Work Phone: Start: 09-11-2023 End: 09-11-2023 ambulatory [facility] Work Phone: Start: 09-11-2023 End: 09-11-2023 Patient encounter procedure [facility] Work Phone: Start: 09-10-2023 End: 09-10-2023 ambulatory [facility] Work Phone: Start: 09-10-2023 End: 09-10-2023 Patient encounter procedure [facility] Work Phone: Start: 09-09-2023 End: 09-09-2023 ambulatory [facility] Work Phone: Start: 09-09-2023 End: 09-09-2023 Patient encounter procedure [facility] Work Phone: Start: 08-13-2023 Telephone encounter Windy Yuen MD Work Phone: [facility] [place] Start: 07-31-2023 End: 07-31-2023 ambulatory WINDY Nahomi TRIPP Facility:[facility] Start: 07-31-2023 End: 07-31-2023 Patient encounter procedure Windy Yuen MD Work Phone: Neurology Comment on above: Stiff person syndrom e (Primary Dx) Start: 04-30-2023 End: 04-30-2023 ambulatory RG MENCHACA Facility:[facility] Start: 04-30-2023 End: 04-30-2023 ambulatory WINDY CHAHALLESTER Facility:[facility] Start: 2023 Telephone encounter Luis Eduardo Clemnos MD Work Phone: Neurology Comment on above: Appointment Start: 06-06-2022 Telephone encounter La Nena Keen i, MD Work Phone: Endocrinology Comment on above: Blood sugar log Start: 06-04-2022 End: 06-04-2022 ambulatory La Nena Lala MD Work Phone: Endocrinology Comment on above: Poorly controlled ty pe 1 diabetes mellitus (HCC) (Primary Dx); Acquired hypothyroidism Start: 06-04-2022 End: 06-04-2022 Telemedicine consultation with patient La Nena Lala MD Work Phone: [facility] Start: 05-31-2022 Telephone encounter La Nena Keen i, MD Work Phone: Endocrinology Comment on above: Appointment (Resched ule ) Start: 04-28-2022 End: 04-29-2022 Emergency department patient visit [facility] Start: 04-18-2022 ambulatory UNKNOWN PROVIDER Facili ty:[facility] Start: 04-18-2022 End: 04-18-2022 Patient encounter procedure Maryan Loving DPM Work Phone: Podiatry Comment on above: Cavovarus deformity of foot, acquired, right (Primary Dx); Other osteoporosis without current pathological fracture; Hammertoe, bilateral Start: 04-18-2022 End: 04-18-2022 Subsequent hospital visit by physician Radio [facility] Work Phone: Radiology Comment on above: Pain [R52] Start: 03-08-2022 ambulatory Facility:U Start: 03-01-2022 End: 03-01-2022 Emergency department patient visit [facility] Start: 11-15-2021 End: 11-16-2021 ambulatory UNKNOWN PROVIDER Facility:[facility] Start: 11-15-2021 End: 11-15-2021 Patient encounter procedure La Nena Lala MD Work Phone: Endocrinology Comment on above: Acquired hypothyroid ism (Primary Dx); Poorly controlled type 1 diabetes mellitus (HCC) Start: 08-30-2021 End: 08-30-2021 Emergency department patient visit Dr. Rg Menchaca Work Phone: [facility] Start: 08-19-2021 Non-patient / Non-visit Dr. Eron Menchaca Work Phone: [facility] Start: 08-18-2021 End: 08-19-2021 [facility] Procedures Date Procedure Procedure Detail Performing Clinician Start: 04-18-2022 Radex foot complete minimum 3 views Maryan Loving DPM Work Phone: Start: 11-15-2021 Hemoglobin A1c/Hemoglobin.total in Blood La Nena Lala MD Work Phone: SARS-CoV-2 & FLU Ant igen (Rapid) Plan of Treatment Date Care Activity Detail Author Start: 10-07-2024 Iv infusion therapy prophylaxis/dx ea hour THER/PROPH/DIAG IV INF [facility] Start: 10-07-2024 Iv infusion therapy/prophylaxis /dx 1st to 1 hr THER/PROPH/DIAG IV INF [facility] Start: 10-07-2024 Therapeutic injectio n iv push each new drug TX/PRO/DX INJ NEW DRUG [facility] Start: 09-10-2024 Iv infusion therapy prophylaxis/dx ea hour THER/PROPH/DIAG IV INF [facility] Start: 09-10-2024 Iv infusion therapy/prophylaxis /dx 1st to 1 hr THER/PROPH/DIAG IV INF [facility] Start: 09-10-2024 Therapeutic injectio n iv push each new drug TX/PRO/DX INJ NEW DRUG [facility] Start: 08-11-2024 Iv infusion therapy prophylaxis/dx ea hour THER/PROPH/DIAG IV INF [facility] Start: 08-11-2024 Iv infusion therapy/prophylaxis /dx 1st to 1 hr THER/PROPH/DIAG IV INF [facility] Start: 08-11-2024 Therapeutic injectio n iv push each new drug TX/PRO/DX INJ NEW DRUG [facility] Start: 08-11-2024 End: 08-11-2024 Patient encounter procedure 08/11/2024 12:00 PM EDT Office Visit Neurology [address] [facility] [address] [place] [address] Windy Yuen MD [address] [facility] [address] [place] [address] 6 mo Neurology Comment on above: 6 mo Start: 07-16-2024 Iv infusion therapy prophylaxis/dx ea hour THER/PROPH/DIAG IV INF [facility] Start: 07-16-2024 Iv infusion therapy/prophylaxis /dx 1st to 1 hr THER/PROPH/DIAG IV INF [facility] Start: 07-16-2024 Therapeutic injectio n iv push each new drug TX/PRO/DX INJ NEW DRUG [facility] Start: 02-05-2024 End: 02-05-2024 Patient encounter procedure 02/05/2024 11:30 AM EDT Office Visit Neurology [address] [facility] [address] [place] [address] Windy Yuen MD [address] [facility] [address] [place] [address] 3 mo follow up Neurology Comment on above: 3 mo follow up Start: 01-19-2024 Covid-19 Vaccine ( season) Covid-19 Vaccine ( season) [facility] Start: 01-19-2024 Covid-19 Vaccine ( season) Covid-19 Vaccine () [facility] Start: 01-19-2024 Influenza vaccination [facility] Start: 12-17-2023 End: 12-17-2023 Patient encounter procedure 12/17/2023 12:00 PM EDT Office Visit Neurology [address] [place] [address] Windy Yuen MD [address] [place] [address] 3 mo follow up- 09/24 mychart message [...] 05-20-2023 Advance Directive Discussion Advance Directive Discussion [facility] Start: 05-20-2023 Behavioral Health Screening Behavioral Health Screening [facility] Start: 05-20-2023 Depression Assessment Depression Ass essment [facility] Start: 01-18-2023 Covid-19 Vaccine ( season) Covid-19 Vaccine () [facility] Start: 01-18-2023 Influenza vaccination Influenza Vacc ine (#1) [facility] Start: 11-15-2022 3 comp foot exam completed DIABETIC FOOT EXAM [facility] Start: 11-15-2022 Diabetic foot examination Diabetic Foot Exam [facility] Start: 05-20-2022 ADVANCE DIRECTIVE DISCUSSION ADVANCE DIRECTIVE DISCUSSION [facility] Start: 05-20-2022 DEPRESSION ASSESSMENT DEPRESSION ASS ESSMENT [facility] Start: 02-15-2022 Hemoglobin A1c measurement HbA1C [facility] Start: 09-29-2022 Hemoglobin A1c/Hemoglobin.total in Blood HBA1C [facility] Start: 01-18-2022 [facility] Start: 11-15-2021 End: 01-15-2022 C peptide [Mass/volume] in Serum or Plasma [facility] Work Phone: Comment on above: Expected: 11/15/2021 , Expires: 01/15/2022 Start: 11-15-2021 End: 11-15-2022 Glutamate decarboxylase 65 Ab [Units/volume] in Serum [facility] Work Phone: Comment on above: Expected: 11/15/2021 , Expires: 11/15/2022 Start: 11-15-2021 End: 11-15-2022 INSULIN ANTIBODY BLD [facility] Work Phone: Comment on above: Expected: 11/15/2021 , Expires: 11/15/2022 Start: 11-15-2021 End: 01-15-2022 INSULINOMA ASSOCIATED ANTIBODY 2 [facility] Work Phone: Comment on above: Expected: 11/15/2021 , Expires: 01/15/2022 Start: 11-15-2021 End: 11-15-2022 Pancreatic islet cell Ab [Titer] in Serum [facility] Work Phone: Comment on above: Expected: 11/15/2021 , Expires: 11/15/2022 Start: 11-15-2021 End: 01-15-2022 Thyroxine (T4) free [Mass/volume] in Serum or Plasma [facility] Work Phone: Comment on above: Expected: 11/15/2021 , Expires: 01/15/2022 Start: 05-20-2021 ADVANCE DIRECTIVE DISCUSSION ADVANCE DIRECTIVE DISCUSSION [facility] Start: 05-20-2021 DEPRESSION ASSESSMENT DEPRESSION ASS ESSMENT [facility] Start: 04-17-2021 COVID-19 VACCINE (2 - Pfizer series) COVID-19 VACCINE (2 - Pfizer series) [facility] Start: 04-21-2019 ANNUAL PCP TEAM MANAGER REPORTING ANDREY DISEASE VISIT ANNUAL PCP TEAM CHRONIC DISEASE VISIT [facility] Start: 03-08-2018 Hepatitis B surface antibody level LDL CHOLESTEROL [facility] Start: 2017 RSV Vaccine (1 - 1-d ose 75+ series) RSV Vaccine (1 - 1-dose 75+ series) [facility] Start: 05-21-2016 PNEUMOCOCCAL: 65+ (2 - PPSV23 if available, else PCV20) PNEUMOCOCCAL: 65+ (2 - PPSV23 if available, else PCV20) [facility] Start: 05-21-2016 PNEUMOCOCCAL: 65+ (2 - PPSV23 or PCV20) PNEUMOCOCCAL: 65+ (2 - PPSV23 or PCV20) [facility] Start: 07-16-2015 Pneumococcal Vaccine : 65+ (2 - PPSV23 or PCV20) Pneumococcal Vaccine: 65+ (2 - PPSV23 or PCV20) [facility] Start: 07-16-2015 Pneumococcal Vaccine : 65+ (2 of 2 - PPSV23 or PCV20) Pneumococcal Vaccine: 65+ (2 of 2 - PPSV23 or PCV20) [facility] Start: 07-16-2015 PNEUMOCOCCAL: 65+ (2 - PPSV23 if available, else PCV20) PNEUMOCOCCAL: 65+ (2 - PPSV23 if available, else PCV20) [facility] Start: 2007 BONE DENSITY BONE DENSITY [facility] Start: 2007 Bone Density Screening Bone Density Screening [facility] Start: 2007 Screening for osteoporosis Bone Density Screening [facility] Start: 2002 Hepatitis B Vaccine (1 of 3 - Risk 3-dose series) Hepatitis B Vaccine (1 of 3 - Risk 3-dose series) [facility] Start: 2002 RSV Vaccine (1 - 1-d ose 60+ series) RSV Vaccine (1 - 1-dose 60+ series) [facility] Start: 1992 SHINGRIX VACCINE (1 of 2) SHINGRIX VACCINE (1 of 2) [facility] Start: 1961 Urine microalbumin profile [facility] Start: 1960 Depression Screening Depression Scre ening [facility] Start: 1954 Adult depression screening assessment DEPRESSION SCREENING [facility] Start: 1952 Glaucoma screening Dilated Retinal E xam [facility] Start: 1952 Hepatitis B screening URINE ALBUMIN:CREATININE RATIO [facility] Start: 1952 Hepatitis C antibody , confirmatory test DILATED RETINAL EXAM [facility] Patient Education [facility] Work Phone: Patient referral [facility] Work Phone: [facility] Immunizations Immunization Date Immunization Notes Care Provider Fa cility 08-24-2020 influenza, injectabl e, quadrivalent, preservative free [facility] 08-24-2020 influenza, seasonal, injectable Dr. Rg Menchaca Work Phone: [facility] Work Phone: 08-24-2020 influenza virus vaccine, unspecified formulation Luis Eduardo Clemons Jr., MD Work Phone: [facility] 04-07-2018 Influenza virus vaccine [facility] 03-14-2018 influenza, high dose seasonal, preservative-free La Nena Lala MD Work Phone: [facility] Work Phone: 2017 influenza, high dose seasonal, preservative-free La Nena Lala MD Work Phone: [facility] 05-21-2015 pneumococcal conjuga te vaccine, 13 valent La Nena Lala MD Work Phone: [facility] Payers Date Payer Category Payer Self-pay [id number] 2023 Unknown [id number] 2022 Medicare [facility] MEDICARE [facility] DUAL COMPLETE HMO POS SNP [id number] 2022-Present [phone] [address] [place] [address] Medicare [id number] 2022 Unknown [id number] 2021 Medicaid [facility] MEDICAID MYC ARE [facility] MEDICAID [id number] 2021-Present [phone] [address] [place] [address] Medicaid [id number] 2021 Medicaid [facility] MEDICAID MYC ARE [facility] MEDICAID [id number] 2021-Present [phone] [address] [place] [address] Medicaid [id number] 2021 Unknown [id number] Medicare [id number] Unknown [id number] 2.16840.1.988050.3.579.2.462 Unknown [id number] 2.16840.1.160392.3.579.2.462 Unknown [id number] 2.16840.1.021294.3.579.2.462 Unknown [id number] 2.16840.1.526572.3.579.2.462 Unknown [id number] 2.16840.1.219537.3.579.2.462 Unknown [id number] 2.16840.1.555086.3.579.2.462 Unknown [id number] 2.16.840.1.143652.3.579.2.462 Unknown [id number] 2.16.840.1.362032.3.579.2.462 Unknown [id number] 2.16840.1.103526.3.579.2.462 Unknown [id number] 2.16840.1.935980.3.579.2.462 Unknown [id number] 2.16.840.1.084959.3.579.2.462 Unknown [id number] 2.16.840.1.315162.3.579.2.462 Unknown [id number] 2.16.840.1.214407.3.579.2.462 Unknown [id number] 2.16.840.1.313419.3.579.2.462 Unknown [id number] 2.16.840.1.395300.3.579.2.462 Unknown [id number] 2.16.840.1.560684.3.579.2.462 Unknown [id number] 2.16.840.1.199709.3.579.2.462 Unknown [id number] 2.16.840.1.345081.3.579.2.462 Unknown [id number] 2.16.840.1.005248.3.579.2.462 Unknown [id number] 2.16.840.1.097343.3.579.2.462 Unknown [id number] 2.16.840.1.550499.3.579.2.462 Unknown [id number] 2.16.840.1.720979.3.579.2.462 Unknown [id number] 2.16.840.1.873553.3.579.2.462 Unknown [id number] 2.16.840.1.691624.3.579.2.462 Unknown [id number] 2.16.840.1.153370.3.579.2.462 Unknown [id number] 2.16.840.1.734865.3.579.2.462 Unknown [id number] 2.16.840.1.808610.3.579.2.462 Unknown [id number] 2.16.840.1.663358.3.579.2.462 Unknown [id number] 2.16.840.1.029502.3.579.2.462 Unknown [id number] 2.840.1.744118.3.579.2.462 Unknown [id number] 2.840.1.683352.3.579.2.462 Unknown [id number] 2.840.1.652846.3.579.2.462 Unknown [id number] 2.840.1.693857.3.579.2.462 Unknown [id number] 2.840.1.749388.3.579.2.462 Unknown [id number] 2.840.1.621012.3.579.2.462 Unknown [id number] 2.840.1.513757.3.579.2.462 Unknown [id number] 2.840.1.258121.3.579.2.462 Unknown [id number] 2.840.1.774216.3.579.2.462 Unknown [id number] 2.840.1.183061.3.579.2.462 Unknown [id number] 2.840.1.058162.3.579.2.462 Unknown [id number] 2.840.1.201324.3.579.2.462 Unknown [id number] 2.840.1.020824.3.579.2.462 Unknown [id number] 2.840.1.817454.3.579.2.462 Unknown [id number] 2.840.1.150411.3.579.2.462 Unknown [id number] 2.840.1.602310.3.579.2.462 Unknown [id number] 2.840.1.695298.3.579.2.462 Unknown [id number] 2.840.1.491918.3.579.2.462 Unknown [id number] 2.840.1.390868.3.579.2.462 Unknown [id number] 2.16.840.1.607257.3.579.2.462 Unknown [id number] 2.16.840.1.287028.3.579.2.462 Social History Date Type Detail Facility Start: 08-18-2021 End: 04-28-2022 Tobacco smoking status [facility] Unknown if ever smoked [facility] Start: 11-28-[address] [facility] Start: 11-28-[address] [facility] Start: 11-28-[address] [facility] Start: 1940 Sex Assigned At Female [facility] Start: 01-07-2018 End: 04-28-2022 Tobacco smoking status NHIS Ex-smoker [facility] Start: 01-07-2018 End: 07-31-2023 Tobacco use and exposure Smokeless tobacco non-user [facility] Start: 1940 Sex Assigned At Not on file [facility] Start: 11-05-2021 End: 04-18-2022 Exposure to SARS-CoV-2 (event) Not sure [facility] History of tobacco use Current smoker [facility] Start: 04-18-2022 End: 02-05-2024 Alcohol intake Ex-drinker (finding) [facility] Start: 11-15-2021 End: 04-18-2022 History of Social function [facility] Start: 11-15-2021 End: 04-18-2022 Tobacco use panel [facility] National Score (1-10 0), lower number is lower risk 70 [facility] Start: 05-31-2022 Gender identity Identifies as female gender (finding) [facility] Start: 05-31-2022 Sexual orientation Heterosexual (fin ding) [facility] Start: 08-12-2024 End: 09-11-2024 Sex Female (finding) [facility] Medical Equipment Procedure Code Equipment Code Equipment Origin al Text Equipment Identifier Dates Check blood suga r 4 times daily as intructed. Dx: E11.9. Insulin: yes [id number] Start: 01-17-2018 Comment on above: Check blood sugar 4 times daily as intructed. Dx: E11.9. Insulin: yes Functional Status Date Assessment Result Facility 08-19-2021 Functional status Activity Abili ty With Assist of 2 [facility] Work Phone: Mental Status Date Assessment Result Facility 11-03-2024 Cognitive function Voice/Name [facility] Work Phone: 10-07-2024 Cognitive function Voice/Name [facility] Work Phone: 10-06-2024 Cognitive function Voice/Name [facility] Work Phone: 09-10-2024 Cognitive function Awake;Alert;A ppropriate;Follow s Commands [facility] Work Phone: 09-09-2024 Cognitive function Awake;Alert;A ppropriate;Follow s Commands [facility] Work Phone: 09-08-2024 Cognitive function Awake;Alert;A ppropriate;Follow s Commands [facility] Work Phone: 08-13-2024 Cognitive function Awake;Alert;A ppropriate;Follow s Commands [facility] Work Phone: 08-12-2024 Cognitive function Awake;Alert;A ppropriate;Follow s Commands [facility] Work Phone: 08-11-2024 Cognitive function Awake;Alert;A ppropriate;Follow s Commands [facility] Work Phone: 07-16-2024 Cognitive function Voice/Name [facility] Work Phone: 07-14-2024 Cognitive function Awake;Alert;A ppropriate;Follow s Commands [facility] Work Phone: 06-18-2024 Cognitive function Awake;Alert;A ppropriate;Follow s Commands [facility] Work Phone: 06-17-2024 Cognitive function Voice/Name [facility] Work Phone: 06-16-2024 Cognitive function Awake;Alert;A ppropriate;Follow s Commands [facility] Work Phone: 05-21-2024 Cognitive function Awake;Alert;A ppropriate;Follow s Commands [facility] Work Phone: 04-23-2024 Cognitive function Awake;Alert;A ppropriate;Follow s Commands [facility] Work Phone: 04-22-2024 Cognitive function Awake;Alert;A ppropriate;Follow s Commands [facility] Work Phone: 04-21-2024 Cognitive function Voice/Name [facility] Work Phone: 09-13-2023 Cognitive function Awake;Alert;A ppropriate;Follow s Commands [facility] Work Phone: 09-12-2023 Cognitive function Level Of Cons ciousness Awake;Alert;Appropriate;Follow s Commands [facility] Work Phone: 09-11-2023 Cognitive function Awake;Alert;A ppropriate;Follow s Commands [facility] Work Phone: 09-10-2023 Cognitive function Voice/Name [facility] Work Phone: 09-09-2023 Cognitive function Awake;Alert;A ppropriate;Follow s Commands [facility] Work Phone: 03-01-2022 Cognitive function Level Of Cons ciousness Awake;Alert;Appropriate;Follow s Commands [facility] Work Phone: 08-30-2021 Cognitive function Level Of Cons ciousness Awake;Alert;Appropriate;Follow s Commands [facility] Work Phone: 08-19-2021 Cognitive function Voice/Name [facility] Work Phone: Clinical Notes 11-15-2021 to 02-06-2024 Telephone Encounter - Kellen Duran LPN - 02/06/2024 8:02 AM EDTTelephone Encounter - Kellen Duran LPN - 02/06/2024 8:02 AM Windy Tidwell MD - 02/05/2024 11:24 AM EDT Note Date & Type Note Facility 02-06-2024 Miscellaneous Notes IVIG order was faxed to Madelaine at [facility] at [phone] with confirmation. documented in this encounter [facility] 02-06-2024 Telephone encounter Note IVIG order was faxed to Madelaine at [facility] at [phone] with confirmation. [facility] 02-05-2024 Note HNO ID: [id number] Author: WINDY YUEN MD Service: ? Author Type: Physician Type: Progress Notes Filed: 02/05/2024 11:52 Note Text: Romain is here for follow up; her daughter joins us on the phone for the appointment. She continues on baclofen and lorazepam. She is getting IVIG over 5 days every month at the [facility] Had some trouble with the last infusion [...] syndrome Confirmed with qulitative and quantitative testing ([place]) demonstrating high ab titer som 65 lab [...] that she can receive the treatments at the [facility]. She is now s/p 5 monthly cycles of IVIG: She has experienced remarkable improvement of her symptoms since initiating IVIG treatments: She has not been having spasms anymore She is able to sit in her chair now She has re-started PT. Will plan to consolidate treatment to 0.66 g/kg daily over three days (same total dose of 2g/kg IBW) Fax order to Madelaine at [facility] at [phone] RTC 6 months [facility] 02-05-2024 History of Presen t illness Narrative Images from the original note were not included. Romain is here for follow up; her daughter joins us on the phone for the appointment. She continues on baclofen and lorazepam. She is getting IVIG over 5 days every month at the [facility] Had some trouble with the last infusion [...] syndrome Confirmed with qulitative and quantitative testing ([place]) demonstrating high ab titer som 65 lab [...] that she can receive the treatments at the [facility]. She is now s/p 5 monthly cycles of IVIG: She has experienced remarkable improvement of her symptoms since initiating IVIG treatments: She has not been having spasms anymore She is able to sit in her chair now She has re-started PT. Will plan to consolidate treatment to 0.66 g/kg daily over three days (same total dose of 2g/kg IBW) Fax order to Madelaine at [facility] at [phone] RTC 6 months documented in this encounter [facility] 11-24-2023 Telephone encounter Note Patient's appointment changed from 12/17/23 to 02/05/[address] Yuen being out of the office. Appointment details faxed as requested by daughter, Nyla, so patient will have transportation for appointment. Faxed to [facility]: [phone] Confirmation ok. [facility] 11-24-2023 Miscellaneous Notes Patient's appointment changed from 12/17/23 to 02/05/[address] Yuen being out of the office. Appointment details faxed as requested by daughter, Nyla, so patient will have transportation for appointment. Faxed to [facility]: [phone] Confirmation ok. documented in this encounter [facility] 10-29-2023 Telephone encounter Note Faxed appointment change/reminder to [facility]: [phone]. Confirmation ok. Appointment date for 12/17/23 arrive by 11:45am. [facility] 10-29-2023 Miscellaneous Notes Faxed appointment change/reminder to [facility]: [phone]. Confirmation ok. Appointment date for 12/17/23 arrive by 11:45am. documented in this encounter [facility] 10-15-2023 Telephone encounter Note Pt daughter would like to speak to Dr Yuen via phone regarding noted changed in mother since starting her injections with her Insulin levels as well as Muscle Spasms [facility] 10-15-2023 Miscellaneous Notes Pt daughter would like to speak to Dr Yuen via phone regarding noted changed in mother since starting her injections with her Insulin levels as well as Muscle Spasms documented in this encounter [facility] 09-18-2023 Telephone encounter Note Spoke to Madelaine and relayed message from provider, she voiced understanding at this time and will let patient and daughter know. [facility] 09-18-2023 Miscellaneous Notes Spoke to Madelaine and relayed message from provider, she voiced [...] that she tolerates the medication well. Per Madelaine from [facility], this patient's daughter would like to have her IVIG dose changed to a higher dose for a shorter duration. States this was discussed with Dr. Yuen previously. Please advise if this is correct and if so, please call Madelaine back at [phone]. A new order and authorization will be needed. documented in this encounter [facility] 09-18-2023 Telephone encounter Note We should keep [...] and that she tolerates the medication well. [facility] 09-18-2023 Telephone encounter Note Per Madelaine from [facility], this patient's daughter would like to have her IVIG dose changed to a higher dose for a shorter duration. States this was discussed with Dr. Yuen previously. Please advise if this is correct and if so, please call Madelaine back at [phone]. A new order and authorization will be needed. [facility] 08-13-2023 Miscellaneous Notes Faxed office notes, demographic sheet, copy of insurance, we don't have a copy of insurance cards to [phone]. documented in this encounter [facility] 07-31-2023 Note HNO ID: [id number] Author: WINDY YUEN MD Service: ? Author [...] is able to get the IVIG at the [facility]. Office notes and IVIG order was faxed to Madelaine at [facility] at [phone] with confirmation. Our office Spoke to Madelaine and she stated that the patient will need documentation showing a failure or inability to tolerate the baclofen, in order to get approved for Gammagard. And needs progress note faxed to their office at [phone]. It seems like there was a misunderstanding; [...] syndrome Confirmed with qulitative and quantitative testing ([place]) demonstrating high ab titer som 65 lab [...] that she can receive the treatments at the [facility]. Will send off IVIG rx for insurance approval. RTC 3 months [facility] 07-31-2023 History of Presen t illness [...] is able to get the IVIG at the [facility]. Office notes and IVIG order was faxed to Madelaine at [facility] at [phone] with confirmation. Our office Spoke to Madelaine and she stated that the patient will need documentation showing a failure or inability to tolerate the baclofen, in order to get approved for Gammagard. And needs progress note faxed to their office at [phone]. It seems like there was a misunderstanding; [...] syndrome Confirmed with qulitative and quantitative testing ([place]) demonstrating high ab titer som 65 lab [...] that she can receive the treatments at the [facility]. Will send off IVIG rx for insurance approval. RTC 3 months documented in this encounter [facility] 04-30-2023 Note HNO ID: [id number] Author: WINDY YUEN MD Service: ? Author Type: Physician Type: Progress Notes Filed: 05/27/2023 20:46 Note Text: HPI: This is Ms. Romain Mcdermott a 83 year old female from who presents to the [facility] neurology department with a chief complaint of [...] tensing up like ironing board Living at [facility]; [facility]; has been there for past four years. She is happy there. They discontinued her PT. She is currently taking baclofen 15 mg bid Most recent a1c 9.0; tsh wnl PMH: PAST MEDICAL HISTORY PAST MEDICAL HISTORY Diagnosis Date DM type 1 (diabetes mellitus, type 1) ([facility]) Hypothyroidism Medications: CURRENT MEDICATIONS Current Outpatient Medications [...] Range Status 12/24/2021 (more content not included)... [facility] 03-25-2023 Miscellaneous Notes The listed home phone number for the patient is her daughter Nyla's phone. Nyla was notified of the canceled appointment and new appointment. The daughter was instructed that the patient must have someone accompany her to the appointment. The patient resides at the [facility]. Ph. [phone] I called the [facility] and spoke with Mona and the nurse [...] The appointment reminder was faxed to the [facility]. TC to daughter regarding upcoming appointment with Dr. Clemons. 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 Pt will need to be seen by neuromuscular for treatment and care, per . Samira Vieira LPN documented in this encounter [facility] 07-20-2022 Miscellaneous Notes completed a Virtual Visit with patient and facility. CLOSED Called patients daughter Nyla and left to call back office at [phone]. Wanted to check and see how her [...] not know why they arranged for this last picker time because she would have been late [...] after 9 am to make arrangements. Nyla [phone] documented in this encounter [facility] 06-12-2022 Miscellaneous Notes Faxed new orders to the [facility] at [phone],transmission ok CLOSED Addended by: LA NENA LALA on: 06/12/2022 01:27 PM Modules accepted: Orders Reviewed the blood sugars. She is having low blood sugars in the morning, and mostly high blood sugars with meals, and especially at bedtime. Please call the half-way to let them know of the following [...] Please advise, thanks. documented in this encounter [facility] 06-04-2022 Instructions La Nena Lala MD - 06/04/2022 3:04 PM EST Images from the original note were not included. - Please do blood tests to check TSH, free T4 and A1c, and fax the results to us on [phone] - Please fax the glucose values from the last 2 weeks to us - Do not eat more than 60 g of carbs per meal. documented in this encounter [facility] 06-04-2022 History of Presen t illness Narrative ENDOCRINOLOGY CLINIC NOTE Ms. Mcdermott is a 82 year old female with T1DM and hypothyroidism presented for follow-up of hypothyroidism and diabetes. She presented with her daughter HPI She stays in a half-way due to R foot deformity. She saw a gypsum block setter before and was told that she had old changes and no intervention was done. They were hoping to see someone for a second opinion to see if they can help with the foot deformity as this is what is keeping her in the half-way. She is still complaining of spasm in [...] diet has not been optimal at the half-way. A1c: 11/15/21 11:30 Hemoglobin A1C (POCT) 8.1 ! 9.4% in 08/2021 Current regimen: Levemir 29 units in the morning NovoLog based on a sliding scale 1 unit for every 50 starting at 170 Glucose monitoring: She has received the freestyle jeremiah and is being managed by the nurses at the half-way. I did not have the glucose data to make changes today Diet: She eats 3 meals but the options are limited in the half-way Complications: Retinopathy: 6 months ago. She has [...] insertion-Dr. True Cantu PROC RM-BRONCHOSCOPY 10/22/2016 Dr. Josseyln Alexander FAMILY HISTORY Problem Relation Age of [...] bed. She has been staying in a half-way for the last couple of years due [...] an A1c check. She has received the Tauntr jeremiah and has been happy with the experience overall Hypothyroidism: We will continue levothyroxine 75 mcg daily. Her TSH was slightly suppressed. We will check her TFTs now Once we get the results and the glucose readings, we will contact them to give the instructions. care home phone number is [phone] Some of the above has been copied from prior documentation on 11/15/2021 but foster elements reviewed, confirmed, and/or updated by me (La Nena Lala MD) on 06/04/2022 I spent a total of 40 minutes on the date of the service which included preparing to see the patient, [id number] patient care, completing clinical documentation, obtaining and/or reviewing separately obtained history, and counseling and educating the patient/family/caregiver. Virtual Visit (Audio/Visual)I have discussed the nature of this visit with the patient which will occur via [facility] (Phone, Virtual Visit) and she agrees to proceed with this interaction. La Nena Lala MD documented in this encounter [facility] 04-18-2022 Note HNO ID: [id number] Author: AVELINO Kahn Service: Radiology Author Type: [...] AVELINO Kahn April 18, 2022 3:[address] [facility] 04-18-2022 History of Presen t [...] 1 (diabetes mellitus, type 1) ([facility]) Hypothyroidism Current Outpatient Medications Medication Sig SENNA-DOCUSATE [...] is to RTC PRN. Maryan Loving DPM, DABPM, FACFAS Pager: [phone] [facility] and [facility] locations documented in this encounter [facility] 04-18-2022 History of Presen t illness Narrative [...] 2022 3:06 PM documented in this encounter [facility] 11-15-2021 History of Presen t illness Narrative Patient brought some medical records. Sent to scanning. Images from the original note were not included. ENDOCRINOLOGY CLINIC NOTE Ms. Mcdermott is a 81 year old female with T1DM and hypothyroidism self-referred for management of hypothyroidism and diabetes. She presented with her daughter HPI She stays in a half-way due to R foot deformity. She saw a gypsum block setter before and was told that she had old changes and no intervention was done. They were hoping to see someone for a second opinion to see if they can help with the foot deformity as this is what is keeping her in the half-way. Hypothyroidism: levothyroxine 75 mcg daily. No recent [...] I reviewed the glucose data from the half-way. The values went from September, and no glucose levels were available from October. In September, her glucose levels fluctuated significantly between 65-398 on variable times of day. There is really no pattern regarding the hypo or hyperglycemia Diet: She eats 3 meals but the options are limited in the half-way Complications: Retinopathy: 6 months ago. She has [...] T1DM. She has been staying in a half-way for the last couple of years due to an acquired right foot deformity. Her diabetes is poorly controlled as evidenced by the A1c level and the reviewed glucose data. This is most likely due to suboptimal regimen, inconsistencies with diet and timing of insulin administration at the half-way. We will continue with the same doses [...] only reason why she is in the half-way is because of the right foot deformity I spent a total of 60 minutes on the date of the service which included preparing to see the patient, [id number] patient care, completing clinical documentation, obtaining and/or reviewing separately obtained history, performing a medically appropriate examination, counseling and educating the patient/family/caregiver and ordering medications, tests, or procedures. La Nena Lala MD documented in this encounter [facility] 11-15-2021 Instructions La Nena Lala MD - [...] referred you to orthopedic surgery. Please call [phone] To schedule documented in this encounter [facility] Evaluation note Diagnosis Onset Date SHEKHAR (acute kidney injury) ac shekhar Hyperglycemia due to diabetes mellitus [facility] Work Phone: Evaluation note* Diagnosis Acquired hypothyroidism- Primary Unspecified hypothyroidism Poorly controlled type 1 diabetes mellitus (HCC) Type I (juvenile type) diabetes mellitus without mention of complication, not stated as uncontrolled [facility] Diagnosis Cavovarus deformity of foot, acquired, right- Primary Other osteoporosis without current pathological fracture Hammertoe, bilateral [facility] noteNo assessment information availableWChildren[facility] Work Phone: Evaluation note* Diagnosis Poorly controlled type 1 diabetes mellitus (HCC)- Primary Type I (juvenile type) diabetes mellitus without mention of complication, not stated as uncontrolled Acquired hypothyroidism Unspecified hypothyroidism [facility] Diagnosis Controlled type 2 diabetes mellitus without complication, with long-term current use of insulin ([facility]) [facility] 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 If you have any further concerns please return for repeat evaluationWChildren[facility] Work Phone: Reason for referral (narrative)* Diagnostic Procedure Only (Routine) - Closed Specialty Diagnoses / Procedures Referred By Contac t Referred To Contact XR IMAGING Diagnoses Pain Procedures XR FOOT GENERAL 3V AP/LAT/OBL RIGHT RADEX FOOT COMPLETE MINIMUM 3 VIEWS Maryan Loving DPM [id number] [id number] [place] [address] Referral ID Status Reason Start Date Expiration Date V isits Requested Visits Authorized [id number] Closed Auto-Generate d Referral 12/04/2021 01/03/2023 1 1 [facility] for referral (narrative)No reason for referral information availableWChildren's [facility] Work Phone: Reason for visit Narrative* Diagnostic Procedure Only (Routine) - Closed Specialty Diagnoses / Procedures Referred By Contac t Referred To Contact XR IMAGING Diagnoses Pain Procedures XR FOOT GENERAL 3V AP/LAT/OBL RIGHT RADEX FOOT COMPLETE MINIMUM 3 VIEWS Maryan Loving DPM [address] [id number] [place] [address] Referral ID Status Reason Start Date Expiration Date V isits Requested Visits Authorized [id number] Closed Auto-Generate d Referral 12/04/2021 01/03/2023 1 1 [facility] Chief Complaint and Reason for Visit Chief [...] m IVIG October 07, 2024 8:14a m Chief Complaint Admit Date IVIG July 14, 2024 8:15am IVIG July 15, 2024 8:23am IVIG July 16, 2024 8:19am IVIG August 11, 2024 7:5 2am IVIG August 12, 2024 7:5 8am IVIG August 13, 2024 9:5 3am IVIG September 08, 2024 8:2 0am IVIG September 09, 2024 8:0 1am IVIG September 10, 2024 8:1 0am IVIG October 06, 2024 7:37a m IVIG October 07, 2024 8:14a m IVIG October 08, 2024 8:38a m IVIG November 03, 2024 7:54 am Family History Relationship Condition Age at Onset Recorded Date/T jane Not Specified Cardiac disease Unknown Malignant neoplasm Unknown Advance Directives Advance Directive Response Recorded Date/ Time Living Will No August 18, 2021 6:10pm Power of Automation Qa Lead No August 18 6:10pm Advance Directive Response Recorded Date/ Time Living Will No August 18, 2021 9:27pm Power of Automation Qa Lead No August 18 9:27pm Advance Directive Response Recorded Date/ Time Living Will No August 30, 2021 6:13pm Power of Automation Qa Lead No August 30 6:13pm Advance Directive Response Recorded Date/ Time Name of Medical Power of Automation Qa Lead Nyla Pricila April 28, 2022 10:03pm Living Will Yes Femi 10th, 2 022 10:03pm Power of Automation Qa Lead Yes April 28, 2022 10:03pm Advance Directive Response Recorded Date/ Time Living Will Yes April 28 11:03pm Power of Automation Qa Lead Yes April 28, 2022 11:03pm Reason for Referral Specialty Diagnoses / Procedures Referred By Contac t Referred To Contact Orthopedics Diagnoses Acquired hypothyroidism Poorly controlled type 1 diabetes mellitus (HCC) Procedures CONSULT TO ORTHOPAEDICS OFFICE/OUTPATIENT NEW HIGH MDM 60-74 MINUTES La Nena Lala MD [address] [place] [address] Referral ID Status Reason Start Date Expiration Date Visits Requested Visits Authorized [id number] Authorized PCP Requested Referral 11/15/2021 11/15/2022 1 1 Specialty Diagnoses / Procedures Referred By Contac t Referred To Contact Diagnoses Stiff person syndrome Procedures PROVIDER ORDERED FOLLOW UP OFFICE/OUTPATIENT NEW HIGH MDM 60 MINUTES Windy Yuen MD [address] [facility] [address] [place] [address] Referral ID Status Reason Start Date Expiration Date Visits Requested Visits Authorized [id number] Authorized PCP Requested Referral 10/31/2023 07/30/2024 1 [...] or prosecute any alcohol or drug abuse patient.[facility] the event this information is protected by the Federal Confidentiality of Alcohol and Drug Abuse Patient Records regulations: The Federal rules restrict any use of the information to criminally investigate or prosecute any alcohol or drug abuse patient.[facility] the event this information is protected by the Federal Confidentiality of Alcohol and Drug Abuse Patient Records regulations: The Federal rules restrict any use of the information to criminally investigate or prosecute any alcohol or drug abuse patient.[facility] the event this information is protected by the Federal Confidentiality of Alcohol and Drug Abuse Patient Records regulations: The Federal rules restrict any use of the information to criminally investigate or prosecute any alcohol or drug abuse patient.[facility] the event this information is protected by the Federal Confidentiality of Alcohol and Drug Abuse Patient Records regulations: The Federal rules restrict any use of the information to criminally investigate or prosecute any alcohol or drug abuse patient.[facility] the event this information is protected by the Federal Confidentiality of Alcohol and Drug Abuse Patient Records regulations: The Federal rules restrict any use of the information to criminally investigate or prosecute any alcohol or drug abuse patient.[facility] the event this information is protected by the Federal Confidentiality of Alcohol and Drug Abuse Patient Records regulations: The Federal rules restrict any use of the information to criminally investigate or prosecute any alcohol or drug abuse patient.[facility] the event this information is protected by the Federal Confidentiality of Alcohol and Drug Abuse Patient Records regulations: The Federal rules restrict any use of the information to criminally investigate or prosecute any alcohol or drug abuse patient.[facility] the event this information is protected by the Federal Confidentiality of Alcohol and Drug Abuse Patient Records regulations: The Federal rules restrict any use of the information to criminally investigate or prosecute any alcohol or drug abuse patient.[facility] the event this information is protected by the Federal Confidentiality of Alcohol and Drug Abuse Patient Records regulations: The Federal rules restrict any use of the information to criminally investigate or prosecute any alcohol or drug abuse patient.[facility] Campus[facility] the event this information is protected by the Federal Confidentiality of Alcohol and Drug Abuse Patient Records regulations: The Federal rules restrict any use of the information to criminally investigate or prosecute any alcohol or drug abuse patient.[facility] the event this information is protected by the Federal Confidentiality of Alcohol and Drug Abuse Patient Records regulations: The Federal rules restrict any use of the information to criminally investigate or prosecute any alcohol or drug abuse patient.[facility] the event this information is protected by the Federal Confidentiality of Alcohol and Drug Abuse Patient Records regulations: The Federal rules restrict any use of the information to criminally investigate or prosecute any alcohol or drug abuse patient.[facility] Campus[facility] the event this information is protected by the Federal Confidentiality of Alcohol and Drug Abuse Patient Records regulations: The Federal rules restrict any use of the information to criminally investigate or prosecute any alcohol or drug abuse patient.[facility] CampusIn the event this information is protected by the Federal Confidentiality of Alcohol and Drug Abuse Patient Records regulations: The Federal rules restrict any use of the information to criminally investigate or prosecute any alcohol or drug abuse patient.[facility] CampusIn the event this information is protected by the Federal Confidentiality of Alcohol and Drug Abuse Patient Records regulations: The Federal rules restrict any use of the information to criminally investigate or prosecute any alcohol or drug abuse patient.[facility] CampusIn the event this information is protected by the Federal Confidentiality of Alcohol and Drug Abuse Patient Records regulations: The Federal rules restrict any use of the information to criminally investigate or prosecute any alcohol or drug abuse patient.[facility] Reason for Visit (unrecogniz ed section and [...] Appointment Update F [facility]ed to [facility] for 12/17/23 Reason Comments Appointment Update faxed to [facility] [place] for appointment 02/05/24 Reason Comments Follow Up Patient states no ch anges. Reason Comments Orders IVIG INFORMATION SOURCE (unrecogn ized section and content) DATE CREATED AUTHOR 03/15/2022 [facility] DATE CREATED AUTHOR AUTHOR'S ORGANIZ ATION 04/19/2022 [facility] DATE CREATED AUTHOR AUTHOR'S ORGANIZ ATION 02/07/2024 [facility] DATE CREATED AUTHOR AUTHOR'S ORGANIZ ATION 11/01/2024 [facility] Care Teams (unrecognized sec tion and content) Molder Feeder Relationship Specialty Start Date End Date Rg Menchaca MD [address] [facility] [address] [place], [place] [address] PCP - General Family Medicine 04/18/22 Molder Feeder Relationship Specialty Start Date End Date Rg Menchaca MD [address] [facility] [address] [address] [place], [place] [id number] PCP - General Family Medicine 04/18/22 Molder Feeder Relationship Specialty Start Date End Date Rg Menchaca MD [address] [facility] [address] [address] [place] [address] PCP - General Family Medicine 04/18/22 Molder Feeder Relationship Specialty Start Date End Date Rg Menchaca MD [address] [facility] [address] [address] [place] [address] PCP - General Family Medicine 04/18/22 Molder Feeder Relationship Specialty Start Date End Date Rg Menchaca MD [address] [facility] [address] [address] [place] [address] PCP - General Family Medicine 04/18/22 Molder Feeder Relationship Specialty Start Date End Date Rg Menchaca MD [address] [facility] [address] [place] [address] PCP - General Family Medicine 04/18/22 Molder Feeder Relationship Specialty Start Date End Date Rg Menchaca MD [address] [facility] [address] [place] [address] PCP - General Family Medicine 04/18/22 Team Status: Active Member Role Status Dates Dr. Rg Menchaca MD Family Provider Active Dr. Rg Menchaca MD Primary Care Provider Active Team Status: Inactive Member Role Status Dates Dr. Rg Menchaca MD Primary Care Provider Active [facility] Attending Provider, Referring Provide r Active Molder Feeder Relationship Specialty Start Date End Date Rg Menchaca MD [address] [facility] [address] [address] [place] [address] PCP - General Family Medicine 04/18/22 Molder Feeder Relationship Specialty Start Date End Date Rg Menchaca MD [address] [facility] [address] [address] [place] [address] PCP - General Family Medicine 04/18/22 Molder Feeder Relationship Specialty Start Date End Date Rg Menchaca MD [address] [facility] [address] [place], [place] [address] PCP - General Family Medicine 04/18/22 Molder Feeder Relationship Specialty Start Date End Date Rg Menchaca MD [address] [facility] [address] [place], [place] [id number] PCP - General Family Medicine 04/18/22 Team [...] October 07, 2024 End: October 07, 2024 Team Status: Inactive Member Role Status Dates Dr. Rg Menchaca MD Primary Care Provider Active Start: October 08, 2024 End: October 08, 2024 Dr. Windy Yuen MD Attending Provider Active Start: October 08, 2024 End: October 08, 2024 Dr. Windy Yuen MD Referring Provider Active Start: October 08, 2024 End: October 08, 2024 Team Status: Inactive Member Role Status Dates Dr. Rg Menchaca MD Primary Care Provider Active Start: November 03, 2024 End: November 03, 2024 Dr. Windy Yuen MD Attending Provider Active Start: November 03, 2024 End: November 03, 2024 Dr. Windy Yuen MD Referring Provider Active Start: November 03, 2024 End: November 03, 2024 FOR RECORDS PERTAINING TO PATIENTS WHO [...] BE BASED ON THE PRIMARY CLINICAL RECORDS. [employer] provides no warranty or guarantee of the accuracy or completeness of information in this document.
[2024-11-04] MEDS: DiphenhydrAMINE 50 MG/ML Syringe 25 MG IV (08:10)
[2024-11-04] MEDS: Acetaminophen 325 MG Tablet 650 MG PO (08:17)
[2024-11-04] MEDS: Immune Globulin 20 gm 20 GM/200 ML VIAL IV (08:27)
[2024-11-04] MEDS: Immune Globulin 10 gm 10 GM/100 ML VIAL IV (11:05)
[2024-11-04] MEDS: Immune Globulin 5 GM 5 GM/50 ML VIAL IV (11:50)
== END 2024-11-04 23:59 | disposition home or self-care (01) ==
LOC: MEDOUTP 07:49
PROVIDERS: PCP Family Medicine; Referring Provider Psychiatry & Neurology Neurology; Visit Provider Psychiatry & Neurology Neurology
DX: G25.82 Stiff-man syndrome (principal)
CPT/HCPCS: 96365; 96366; 96375; A4216; J1568

== ENCOUNTER 2024-11-05 08:09 | Outpatient (CLI) | payer MEDICARE, MEDICAID, SELFPAY ==
[2024-11-05 08:15] VITALS: BP 142/64; PULSE 74; RESP 16; TEMP 35.8; O2SAT 95; BMI 24.4
[2024-11-05] MEDS: DiphenhydrAMINE 50 MG/ML Syringe 25 MG IV (08:25)
[2024-11-05] MEDS: Acetaminophen 325 MG Tablet 650 MG PO (08:30)
--- OUTSIDE RECORDS SUMMARY | 2024-11-05 08:30 | XMS RPT_ITS | CCD ---
Author Organization [facility] Care Team Providers Care Model Home Sales Greeter Name Role Phone Dr. Rg Menchaca Primary Care Provider MD Saul Cruz Emergency Provider [phone] Sean Godwin Admit Provider Dr. Elise Sanchez Attending Provider Dr. Elise Sanchez Other Provider Unavailable Primary Care Provider UnavailRg Bailey MD Primary Care Provider [phone] PROVIDER, UNKNOWN Referring Unavailable PROVIDER, UNKNOWN Referring [...] Provider Dr. Windy Yuen MD Attending Provider Tripp ANDRADE, Dr. Norris Referring Provider [phone] Dr. Rg Menchaca MD Primary Care Provider [phone] Tripp ANDRADE, Dr. Norris Attending Provider Tripp [...] Care Unavailable Spolter, Windy Referring Unavailable Spolter, Winyd Attending Unavailable Menchaca, Rg Primary Care Unavailable [...] Menchaca Dr. Rg ANDRADE Primary Care Provider [phone] Dr. Windy Yuen MD Attending Provider Dr. Windy Yuen MD Referring Provider Medications [...] Start: 01-17-2018 Blood-Glucose Meter (RELION PRIME METER) [facility] Indications: Type 2 diabetes mellitus with complication, with long-term current use of insulin (HCC) 1 Each four times daily. Dx: E11.9. Insulin: yes 1 Each 01/17/2018 Active Start: 01-17-2018 Blood-Glucose Meter (RELION PRIME METER) [facility] Indications: Type 2 diabetes mellitus with complication, [...] Inject intramuscularly. glucose 0.4 mg/mg oral gel (14 sources) Start: Dextrose (Glutose-15) 40 % gel [...] mg PO and acetaminophen [address] [place]. [address] mL 11 02/05/2024 02/05/2024 Discontinued 3 ml [...] complication, with long-term current use of insulin ([facility]) 1 unit for 15 g of carbs [...] complication, with long-term current use of insulin ([facility]) Inject 27 Units subcutaneously every morning. 5 [...] 2021 8:20pm loratadine 10 mg oral tablet (2 sources) Start: 5 take 1 tablet by mouth [...] by mout h every morning. Magnesium Hydroxide (14 sources) Start: 4 take 1 mL by [...] 2023 12:00am mineral oil 1000 mg/ml enema (14 sources) Start: 09-09-2023 Mineral Oil (F leet [...] fo r nausea/vomiting. Senna Plus (senna-docusate ) (15 sources) Start: 04-28-20 take 8.6-50 mg by [...] DULoxetine 60 mg delayed release oral capsule (18 sources) Serotonin and Norepinephrine Reuptake Inhibitor Start: [...] ml insulin lispro 100 unt/ml pen injector (18 sources) Insulin Analog Start: 11-27-2018 End: 11-29-2018 [...] 02-17-2018 Chronic Joint disorders and dislocations; trauma-related (18 sources) Subluxation of ankle joint; Translations: [Subluxation of right ankle joint, initial encounter] 11-28-2018 Episodic Malaise and fatigue (18 sources) Asthenia; Translations: [Other malaise] 11-28-2018 Episodic [...] Onset: 01-13-2018 01-13-2018 Chronic Other circulatory disease (16 sources) Low blood pressure; Translations: [Hypotension, unspecified] 09-07-2021 Episodic Other connective tissue disease (18 sources) Cramp in lower limb; Translations: [Cramp and spasm] 11-28-2018 Episodic Other hereditary and degenerative nervous system conditions (17 sources) Stiff-man syndrome; 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 Other hereditary and degenerative nervous system conditions (3 sources) Stiff-man syndrome; 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 Residual codes; unclassified (1 source) Pain, unspecified; Translations: [Pain] Onset: 04-18-2022 Episodic Residual codes; unclassified (1 source) Pain; Translations: [Pain, unspecified] 04-18-2022 Episodic Spondylosis; intervertebral disc disorders; other back problems (18 sources) Chronic back pain ; Translations: [Dorsalgia, [...] Test Name Value Interpretation Reference Range Facility [facility] 02-06-2024 [facility] Telephone ([facility]) ROMAIN MCDERMOTT ([id number]) 1940 F Date Time Provider Department 02/06/24 WINDY YUEN [facility] During your visit today, we recorded the following information about you: Kellen Duran LPN 02/06/2024 8:05 AM Signed IVIG order was faxed to Madelaine at [facility] at [phone] with confirmation. Allergies As of Date: 02/06/2024 (No Known Allergies) Date Reviewed: 02/05/2024 Reviewed by: Shira Hager LPN - Fully Assessed Reason for Visit: Orders [841] Cmt: IVIG Prescriptions as of 02/06/2024 - [...] Status:Closed by KELLEN DURAN on 02/06/24 Normal [facility] CNOVon 02-05-2024 CNOV Office Visit ([facility] ) ASTERROMAIN FRANCE ([id number]) 1940 F Date Time Provider Department 02/05/24 11:30 AM WINDY YUEN [facility] During your visit today, we recorded the following information about you: Pulse Blood pressure 81/minute 116/68 Windy Yuen MD 02/05/2024 11:52 AM Signed Romain is here for follow up; her daughter joins us on the phone for the appointment. She continues on baclofen and lorazepam. She is getting IVIG over 5 days every month at [facility] Had some trouble with the last infusion [...] syndrome Confirmed with qulitative and quantitative testing (newman) demonstrating high ab titer som 65 lab [...] that she can receive the treatments at [facility]. She is now s/p 5 monthly cycles [...] 2g/kg IBW) Fax order to Madelaine at [facility] at [phone] RTC 6 months Allergies As of Date: [...] 2018 12:38pm (more content not included)... Normal [facility] 11-24-2023 [facility] Telephone ([facility]) ROMAIN MCDERMOTT ([id number]) 1940 F Date Time Provider Department 11/24/23 WINDY YUEN [facility] During your visit today, we recorded the following information about you: Naif Oates 11/24/2023 3:16 PM Signed Patient's appointment changed from 12/17/23 to 02/05/[address] Yuen being out of the office. Appointment details faxed as requested by daughter, Nyla, so patient will have transportation for appointment. Faxed to [facility] [place]: [phone] Confirmation ok. Allergies As of Date: 11/24/2023 (No Known Allergies) Date Reviewed: 07/31/2023 Reviewed by: Shruthi Soliz LPN - Fully Assessed Reason for Visit: Appointment [186] Cmt: Update faxed to [facility] [place] for appointment 02/05/24 Prescriptions as of 11/24/2023 [...] Encounter Status:Closed by NAIF OATES on 11/24/23 [facility] 11-14-2023 [facility] Telephone ([facility]) ROMAIN MCDERMOTT ([id number]) 1940 F Date Time Provider Department 11/14/23 WINDY YUEN [facility] During your visit today, we [...] Encounter Status:Closed [facility] Telephone ([facility]) ROMAIN MCDERMOTT ([id number]) 1940 F Date Time Provider Department 10/29/23 WINDY YUEN [facility] During your visit today, we recorded the following information about you: Naif Oates 10/29/2023 2:49 PM Signed Faxed appointment change/reminder to [facility]: [phone]. Confirmation ok. Appointment date for 12/17/23 arrive by 11:45am. Allergies As of Date: 10/29/2023 (No Known Allergies) Date Reviewed: 07/31/2023 Reviewed by: Shruthi Soliz LPN - Fully Assessed Reason for Visit: Appointment [186] Cmt: Appointment Update Faxed to [facility] for 12/17/23 Prescriptions as of [...] Encounter Status:Closed by NAIF OATES on 10/29/23 [facility] Brian 10-15-2023 [facility] ROMAIN MCDERMOTT ([id number]) 1940 F Date Time Provider Department 10/15/23 WINDY YUEN [facility] During your visit today, we [...] insulin. States the concern is that the [facility] is giving her sugary,unhealthy snacks to increase blood sugar in the evening for lower blood sugar levels of about 58. She is asking for an order for patient to have more healthy snacks of carb and protein. States she will will discuss with PCP,[facility] Outside and Endo. Asking if decreased in blood [...] appointment in november. She will check with [facility] whether any further orders are needed. I [...] 1 Wheelch (more content not included)... Normal [facility] 09-25-2023 [facility] Telephone ([facility]) ROMAIN MCDERMOTT ([id number]) 1940 F Date Time Provider Department 09/25/23 WINDY YUEN [facility] During your visit today, we [...] Encounter Status:Closed by BRIAN AMAYA on 09/25/23 [facility] 09-18-2023 [facility] ROMAIN MCDERMOTT ([id number]) 1940 F Date Time Provider Department 09/18/23 WINDY YUEN [facility] During your visit today, we recorded the following information about you: Jackie Newsome RN 09/18/2023 9:49 AM Signed Per Madelaine from [facility], this patient's daughter would like to have her IVIG dose changed to a higher dose for a shorter duration. States this was discussed with Dr. Yuen previously. Please advise if this is correct and if so, please call Madelaine back at [phone]. A new order and authorization will be [...] Fully Assessed Reason for Visit: Medication Question [5728] Prescriptions as of 09/18/2023 - glucagon (GLUCAGEN) [...] Encounter Status:Closed by WINDY YUEN on 09/18/23 [facility] 08-13-2023 [facility] Telephone ([facility]) ROMAIN MCDERMOTT ([id number]) 1940 F Date Time Provider Department 08/13/23 WINDY YUEN [facility] During your visit today, we recorded the following information about you: Leigha Walter MA 08/13/2023 9:54 AM Signed Faxed office notes, demographic sheet, copy of insurance, we don't have a copy of insurance cards to [phone]. Windy Yuen MD 08/22/2023 5:18 PM Signed Infusion order form completed in my outbox Please fax to [facility] Please include copy of the printed ivig rx and include documentation of insurance authorization. Shruthi Torres LPN 08/26/2023 5:20 PM Addendum Contacted [facility] to attempt to get a copy of IVIG authorization. Spoke with two individuals, was told that [employer] doesn't handle patients pharmacy benefits and was transferred to [facility] - [phone]. Dileep at [facility] stated they do not handle patients pharmacy benefits - [facility] does - [phone]. Spoke with Elida at specialty pharmacy who found infusion order and transferred call to infusion team. Infusion team can't pull up patients information. Authorization number is documented as [id number]. Judy Morin 08/27/2023 8:39 AM Signed Daughter is calling for an update Please advise Nyla Palacios [phone] Needing this done KELSEY for the Prior Auth is only good for SIX months and they only have Five months left Kellen Duran LPN 08/27/2023 2:53 PM Signed Faxed authorization approval letter to [facility] with confirmation. Approval letter sent to scanning. Naif Oates 11/24/2023 2:54 PM Signed Called to r/s appointment from 12/17/23. While on the phone, daughter, Nyla [phone], said the hospital will need monthly verifications [...] to receive IVIG therapy. In turn, the group home, [facility], will be notified, appointment scheduled, and transportation for infusion will then be made. Patient has order dated 08-22-23 to repeat cycle every 28 days. Has approval from [employer] through 05-19-24. Verified with Nyla that the November appointment with has been rescheduled for 02-05-24 at 11:30 and is documented that it has been faxed to [facility]. Message forwarded to . Mary Carrasco RN, BSN Allergies As of Date: 08/13/2023 (No Known Allergies) Date Reviewed: 07/31/2023 Reviewed by: Shruthi Soliz LPN - Fully Assessed Reason for Visit: Insurance Authorization [[id number]] Cmt: IVIG - Gammagard Prescriptions as of [...] Hip cont (more content not included)... Normal [facility] CNOVon 07-31-2023 CNOV Office Visit ([facility] ) ROMAIN MCDERMOTT ([id number]) 1940 F Date Time Provider Department 07/31/23 4:30 PM WINDY YUEN [facility] During your visit today, we [...] is able to get the IVIG at [facility]. Office notes and IVIG order was faxed to Madelaine at [facility] at [phone] with confirmation. Our office Spoke to Madelaine and she stated that the patient will need documentation showing a failure or inability to tolerate the baclofen, in order to get approved for Gammagard. And needs progress note faxed to their office at [phone]. It seems like there was a misunderstanding; [...] syndrome Confirmed with qulitative and quantitative testing (newman) demonstrating high ab titer som 65 lab [...] that she can receive the treatments at [facility]. Will send off IVIG rx for insurance approval. RTC 3 months Allergies As of Date: 07/31/2023 (No Known Allergies) Date Reviewed: 07/31/2023 Reviewed by: Shruthi Soliz LPN - Fully Assessed Reason for Visit: Follow Up [171] Cmt: L heel pain. Blood sugar has been high. 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 Normal [facility] CNOVon 04-30-2023 CNOV Office Visit ([facility] ) ROMAIN MCDEMROTT ([id number]) 1940 F Date Time Provider Department 04/30/23 2:00 PM WINDY YUEN [facility] During your visit today, we recorded the following information about you: Pulse Blood pressure Weight Height 84/minute 112/64 55.3 kg 1.607 m Windy Yuen MD 05/27/2023 8:46 PM Addendum HPI: This is Ms. Romain Mcdermott a 83 year old female from who presents to the [facility] neurology department with a chief complaint of [...] tensing up like ironing board Living at [facility]; [facility] [place]; has been there for past four years. [...] Cerebellar: Inta (more content not included)... Normal [facility] SEND OUT TST 2022 REFERRAL LAB 1 [place] Normal [facility] Comment on above: Order Comment: Speci men Type: BLOOD SPECIMENOrdering Facility: [facility] Address: [address] [place] [address] Performed By: #### M ISC1 ####NON-INTERFACED REF LABSCLIA SEE SCANNED RESULTS TEST 1 GAD65 Ab Assay, S Normal [facility] Comment on above: Order Comment: Speci men Type: BLOOD SPECIMENOrdering Facility: [facility] Address: [address] [place] [address] Performed By: #### M ISC1 ####NON-INTERFACED REF LABSCLIA SEE SCANNED RESULTS TEST RESULTS 1 View results in Scanned Documents link when available. Normal [facility] Comment on above: Order Comment: Speci lyndsey Type: BLOOD SPECIMENOrdering Facility: [facility] Address: [address] [place] [address] Performed By: #### M ISC1 ####NON-INTERFACED REF LABSCLIA SEE SCANNED RESULTS Brian 2023 [facility] Telephone (CAROLINE) ROMAIN MCDERMOTT ([id number]) 1940 F Date Time Provider Department 03/20/23 [...] the appointment. The patient resides at the [facility]. Ph. [phone] I called the [facility] and spoke with Mona and the nurse [...] The appointment reminder was faxed to the [facility]. Allergies As of Date: 2023 (No Known [...] Status:Closed by SOSA VELEZ on 03/25/23 Normal [facility] Glucose Glucometer (BldC) [M ass/Vol]on 04-29-2022 Glucose [Mass/Vol] 94 mg/dL 74-106 [facility] Work Phone: Comment on above: MANAGEMENT OF PATIEN T CARE PER NURSING PROTOCOL Absolute lymphocyte counton 04-28-2022 Lymphocytes Auto (Unsp spec) [#/Vol] 2.37 10*3/uL 0.83-4.51 [facility] Work Phone: Basophil percentageon 2021 Basophils/100 WBC (Bld) 0.3 % 0-1 [facility] Work Phone: Chloride [Moles/Vol] 102 mmol/L 98-107 [facility] Work Phone: Eosinophils/100 WBC (Bld) 0.1 % 0-5 [facility] Work Phone: Glucose [Mass/Vol] 112 mg/dL 74-106 [facility] Work Phone: Comment on above: Fasting Glucose resu lt from 100 to 125 mg/dL suggests IMPAIRED HOMEOSTASIS per A.D.A. criteria. Neutrophils (Bld) [#/Vol] 8.6 10*3/uL 2.0-7.7 [facility] Work Phone: Neutrophils/100 WBC (Bld) 74.7 % 47-70 [facility] Work Phone: Potassium [Moles/Vol] 5.4 mmol/L 3.5-5.1 [facility] Work Phone: Sodium [Moles/Vol] 137 mmol/L 136-145 [facility] Work Phone: WBC (Bld) [#/Vol] 11.5 10*3/uL 4.4-11.0 [facility] Work Phone: Blood erythrocytes count (nu mber/volume)on 04-28-2022 RBC (Bld) [#/Vol] 4.65 10*6/uL 4.2-5.4 [facility] Work Phone: Blood hemoglobin measurement (mass/volume)on 04-28-2022 Hemoglobin (Bld) [Mass/Vol] 13.2 g/dL 12.0-15.0 [facility] Work Phone: Blood lymphocytes/100 leukoc yteson 04-28-2022 Lymphocytes/100 WBC (Bld) 20.6 % 19-41 [facility] Work Phone: Blood monocytes/100 leukocyt eson 04-28-2022 Monocytes/100 WBC (Bld) 3.0 % 0-10 [facility] Work Phone: Blood platelet mean volumeon 04-28-2022 Platelet mean volume (Bld) [Entitic vol] 9.7 fL 6.2-12.0 [facility] Work Phone: Determination of erythrocyte mean corpuscular volume (MCV)on 04-28-2022 MCV (RBC) [Entitic vol] 88.8 fL 81-99 [facility] Work Phone: Hematocrit Auto (Bld) [Volum e fraction]on 04-28-2022 Hematocrit (Bld) [Volume fraction] 41.3 % 37-47 [facility] Work Phone: Laboratory - Chemistry and C hemistry - challengeon 04-28-2022 CO2 [Moles/Vol] 31.0 mmol/L 21.0-32.0 [facility] Work Phone: Magnesium [Mass/Vol] 2.0 mg/dL 1.6-2.6 [facility] Work Phone: Urea nitrogen/Creatinine [Mass ratio] 33.5 mg/mg 10-20 [facility] Work Phone: Laboratory - Hematology and Cell countson 04-28-2022 Erythrocyte distribution width (RBC) [Entitic vol] 44.3 fL 35.1-43.9 [facility] Work Phone: Erythrocyte distribution width (RBC) [Ratio] 13.6 % 11.6-14.6 [facility] Work Phone: Immature granulocytes/100 WBC (Bld) 1.300 % 0.0-0.9 [facility] Work Phone: Comment on above: IG% - Immature Granu locytes (promyelocytes, myelocytes and metamyelocytes) > 1% indicates that a LEFT SHIFT is Present. MCH (RBC) [Entitic mass] 28.4 pg 27.0-32.0 [facility] Work Phone: Nucleated RBC/100 WBC (Bld) [Ratio] 0 % 0-5 [facility] Work Phone: MCHC Auto (RBC) [Mass/Vol]on 04-28-2022 MCHC (RBC) [Mass/Vol] 32.0 g/dL 32-36 [facility] Work Phone: No Panel Informationon 04-28 Estimated Creatinine Clearance Calc 37.12 ml/min [facility] Work Phone: Estimated GFR (MDRD) Amer 118 mL/min >60 [facility] Work Phone: Comment on above: GFR Calc Estimated GFR (MDRD) Non-Af Amer 97 mL/min >60 [facility] Work Phone: Comment on above: Non- GFR Calc Platelets bldon 04-28-2022 Platelets (Bld) [#/Vol] 251 10*3/uL 150-450 [facility] Work Phone: Serum or plasma calcium roger urement (mass/volume)on 04-28-2022 Calcium [Mass/Vol] 9.3 mg/dL 8.5-10.1 [facility] Work Phone: Serum or plasma creatinine m easurement (mass/volume)on 04-28-2022 Creatinine [Mass/Vol] 0.63 mg/dL 0.55-1.02 [facility] Work Phone: Comment on above: The validity of the calculated GFR & GFRAA in patients over 70 years has not been determined. Clinical correlation is essential. Serum or plasma urea nitroge n measurement (mass/volume)on 04-28-2022 Urea nitrogen [Mass/Vol] 21 mg/dL 7-18 [facility] Work Phone: Thin prep Papanicolaou smear with manual screeningon 04-28-2022 Thin prep Papanicolaou smear with manual screening 4 5-15 [facility] Work Phone: XR Foot - right AP and Later al and obliqueon 04-19-2022 IMPRESSION: Unchanged deformity of the right foot, no acute bony process is identified. [employer] Financial [employer] Agent: YOBANY Transcribe Date/Time: Apr 19 2022 7:25A Dictated by : LESA MCLAUGHLIN MD This examination was interpreted and the report reviewed and electronically signed by: LESA MCLAUGHLIN MD on Apr 19 2022 7:27AM EST [facility] * * *Final Report* * * DATE OF EXAM: Apr 18 2022 3:07PM MDO 5337 - XR FOOT 3V AP/LAT/OBL RT / PROCEDURE REASON: [id number] * * * * Physician Interpretation * * * * HISTORY: RIGHT FOOT PAIN. Pain . TECHNIQUE: XR FOOT 3V AP/LAT/OBL RT Laterality: RIGHT Number of different views (projections): 3 COMPARISON: February 2018 RESULT: Equinovarus deformity again identified. Bones are osteoporotic unchanged. No fracture. Joint spaces are grossly maintained. [facility] Provider, Susanne [facility] - 04/19/2022 * * *Final Report* * * DATE OF EXAM: Apr 18 2022 3:07PM MDO 5337 - XR FOOT 3V AP/LAT/OBL RT / PROCEDURE REASON: [id number] * * * * Physician Interpretation * * * * HISTORY: RIGHT FOOT PAIN. Pain . TECHNIQUE: XR FOOT 3V AP/LAT/OBL RT Laterality: RIGHT Number of different views (projections): 3 COMPARISON: February 2018 RESULT: Equinovarus deformity again identified. Bones are osteoporotic unchanged. No fracture. Joint spaces are grossly maintained. IMPRESSION IMPRESSION: Unchanged deformity of the right foot, no acute bony process is identified. Insurance And Financial Services Agent: [facility] Transcribe Date/Time: Apr 19 2022 7:25A Dictated by : LESA MCLAUGHLIN MD This examination was interpreted and the report reviewed and electronically signed by: LESA MCLAUGHLIN MD on Apr 19 2022 7:27AM EST [facility] XR Foot - right AP and Later al and obliqueOrdered By: [facility]cf Provider on 04-19-2022 [facility] XR FOOT 3V AP/LAT/OBL RTon 06-18-2021 XR FOOT 3V AP/LAT/OBL RT * * *Final Report* * * DATE OF EXAM: Apr 18 2022 3:07PM MDO 5337 - XR FOOT 3V AP/LAT/OBL RT / PROCEDURE REASON: [id number] * * * * Physician Interpretation * * * * HISTORY: RIGHT FOOT PAIN. Pain . TECHNIQUE: XR FOOT 3V AP/LAT/OBL RT Laterality: RIGHT Number of different views (projections): 3 COMPARISON: February 2018 RESULT: Equinovarus deformity again identified. Bones are osteoporotic unchanged. No fracture. Joint spaces are grossly maintained. IMPRESSION: Unchanged deformity of the right foot, no acute bony process is identified. Insurance [employer] Financial Services Agent: [facility] Transcribe Date/Time: Apr 19 2022 7:25A Dictated by : LESA MCLAUGHLIN MD This examination was interpreted and the report reviewed and electronically signed by: LESA MCLAUGHLIN MD on Apr 19 2022 7:27AM EST [id number] [facility] XR Foot - right AP and Later al and obliqueon 04-18-2022 Radiology Study observation (narrative) [facility] URINE CULTURE,BACTERIALon URINE CULTURE,BACTERIAL PATIENT: ROMAIN MCDERMOTT LOCATION: [facility] BILL#: [id number] : 44 AGE: SEX: F ORDERED BY: RG MENCHACA SOURCE: URINE COLLECTED: 03/12/22 13:05 ANTIBIOTICS AT [place] RECEIVED : 03/13/22 23:52 SITE: Clean Catch/Voided R E S U L T S URINE CULTURE,BACTERIAL FINAL 03/14/22 18:39 MULTIPLE ORGANISMS PRESENT, PROBABLE CONTAMINATION PLEASE REPEAT CULTURE. Normal [facility] Comment on above: Performed By: #### U [facility] #### [facility] [address] [place] [address] URINE CULTURE,BACTERIALon URINE CULTURE,BACTERIAL PATIENT: ROMAIN MCDERMOTT LOCATION: [facility] BILL#: [id number] : 44 AGE: SEX: F ORDERED BY: RG MENCHACA SOURCE: URINE COLLECTED: 03/08/22 05:42 ANTIBIOTICS AT [place].: RECEIVED : 03/08/22 20:26 SITE: Unspecified R E S U L T S URINE CULTURE,BACTERIAL FINAL 03/09/22 12:43 MULTIPLE ORGANISMS PRESENT, PROBABLE CONTAMINATION PLEASE REPEAT CULTURE. Normal [facility] Comment on above: Performed By: #### U RINC #### [facility] [address] [address] Absolute lymphocyte counton 03-01-2022 Lymphocytes Auto (Unsp spec) [#/Vol] 2.41 10*3/uL 0.83-4.51 [facility] Work Phone: Basophil percentageon 2021 Basophils/100 WBC (Bld) 0.5 % 0-1 [facility] Work Phone: Chloride [Moles/Vol] 101 mmol/L 98-107 [facility] Work Phone: Eosinophils/100 WBC (Bld) 1.7 % 0-5 [facility] Work Phone: Glucose [Mass/Vol] 237 mg/dL 74-106 [facility] Work Phone: Comment on above: Glucose result great er than or equal to 200 mg/dLsuggests DIABETES MELLITUS per A.D.A. criteria. Neutrophils (Bld) [#/Vol] 6.7 10*3/uL 2.0-7.7 [facility] Work Phone: Neutrophils/100 WBC (Bld) 66.4 % 47-70 [facility] Work Phone: Potassium [Moles/Vol] 4.4 mmol/L 3.5-5.1 [facility] Work Phone: Sodium [Moles/Vol] 136 mmol/L 136-145 [facility] Work Phone: WBC (Bld) [#/Vol] 10.0 10*3/uL 4.4-11.0 [facility] Work Phone: Blood erythrocytes count (nu mber/volume)on 03-01-2022 RBC (Bld) [#/Vol] 4.90 10*6/uL 4.2-5.4 [facility]: Blood hemoglobin measurement (mass/volume)on 03-01-2022 Hemoglobin (Bld) [Mass/Vol] 14.0 g/dL 12.0-15.0 [facility] Work Phone: Blood lymphocytes/100 leukoc yteson 03-01-2022 Lymphocytes/100 WBC (Bld) 24.0 % 19-41 [facility] Work Phone: Blood monocytes/100 leukocyt eson 03-01-2022 Monocytes/100 WBC (Bld) 6.6 % 0-10 [facility] Work Phone: Blood platelet mean volumeon 03-01-2022 Platelet mean volume (Bld) [Entitic vol] 10.1 fL 6.2-12.0 [facility] Work Phone: Determination of erythrocyte mean corpuscular volume (MCV)on 03-01-2022 MCV (RBC) [Entitic vol] 86.9 fL 81-99 [facility] Work Phone: Hematocrit Auto (Bld) [Volum e fraction]on 03-01-2022 Hematocrit (Bld) [Volume fraction] 42.6 % 37-47 [facility] Work Phone: Laboratory - Chemistry and C hemistry - challengeon 03-01-2022 CO2 [Moles/Vol] 27.0 mmol/L 21.0-32.0 [facility] Work Phone: Urea nitrogen/Creatinine [Mass ratio] 23.0 mg/mg 10-20 [facility] Work Phone: Laboratory - Hematology and Cell countson 03-01-2022 Erythrocyte distribution width (RBC) [Entitic vol] 44.4 fL 35.1-43.9 [facility] Work Phone: Erythrocyte distribution width (RBC) [Ratio] 13.8 % 11.6-14.6 [facility] Work Phone: Immature granulocytes/100 WBC (Bld) 0.800 % 0.0-0.9 [facility] Work Phone: Comment on above: IG% - Immature Granu locytes (promyelocytes, myelocytes and metamyelocytes) > 1% indicates that a LEFT SHIFT is Present. MCH (RBC) [Entitic mass] 28.6 pg 27.0-32.0 [facility] Work Phone: Nucleated RBC/100 WBC (Bld) [Ratio] 0 % 0-5 [facility] Work Phone: MCHC Auto (RBC) [Mass/Vol]on 03-01-2022 MCHC (RBC) [Mass/Vol] 32.9 g/dL 32-36 [facility] Work Phone: No Panel Informationon 03-01 Estimated Creatinine Clearance Calc 37.74 ml/min [facility] Work Phone: Estimated GFR (MDRD) Amer 69 mL/min >60 [facility] Work Phone: Comment on above: GFR Calc Estimated GFR (MDRD) Non-Af Amer 57 mL/min >60 [facility] Work Phone: Comment on above: Non- GFR Calc Platelets bldon 03-01-2022 Platelets (Bld) [#/Vol] 228 10*3/uL 150-450 [facility] Work Phone: Serum or plasma acetone roger urement (mass/volume)on 03-01-2022 Acetone [Mass/Vol] Negative NEG [facility] Work Phone: Serum or plasma calcium roger urement (mass/volume)on 03-01-2022 Calcium [Mass/Vol] 10.1 mg/dL 8.5-10.1 [facility] Work Phone: Serum or plasma creatinine m easurement (mass/volume)on 03-01-2022 Creatinine [Mass/Vol] 1.00 mg/dL 0.55-1.02 [facility] Work Phone: Comment on above: The validity of the calculated GFR & GFRAA in patients over 70 years has not been determined. Clinical correlation is essential. Serum or plasma urea nitroge n measurement (mass/volume)on 03-01-2022 Urea nitrogen [Mass/Vol] 23 mg/dL -18 [facility] Work Phone: Thin prep Papanicolaou smear with manual screeningon 03-01-2022 Thin prep Papanicolaou smear with manual screening 8 10-01 [facility] Work Phone: C peptide SerPl-mCncon 11-15 C peptide [Mass/Vol] <0.20 Low 0.81-3.85 [facility] Comment on above: Order Comment: Malini solorio Type: BLOOD SPECIMEN Ordering Facility: [facility] Address: [address] [place] [address] Result Comment: Resu lt rechecked. Performed By: #### 1 986-9 #### [facility] CLIA [id number] [address] [place] [address] [place] GAD65 Ab Ser-aCncon 11-16-19 22 Glutamate decarboxylase 65 Ab Qn (S) >120.0 High <=5.0 [facility] Comment on above: Order Comment: Malini solorio Type: BLOOD SPECIMEN Ordering Facility: [facility] Address: [address] [place] [address] Result Comment: Anti -glutamic acid decarboxylase antibody [...] is required. Performed By: #### I NSLAB, 00070-3 #### [facility] CLIA [id number] [address] [place] [address] [place] GLUCOSE RANDOM BLDon 022 Glucose [Mass/Vol] 94 mg/dL 74 - 99 mg/dL [facility] Glucose SerPl-mCncon 022 Glucose [Mass/Vol] 94 mg/dL Normal 74-99 [facility] Comment on above: Order Comment: Malini solorio Type: BLOOD SPECIMEN Ordering Facility: [facility] Address: [address] [place], [place] [id number] Result Comment: The [place] Diabetes [employer] (ADA) provides guidance for cutoff [...] Standards of Medical Care in Diabetes 2016, [place] [employer]. Diabetes Care. 2016.39(Suppl 1). Performed By: #### 2 345-7, 3016-3 #### [facility] CLIA [id number] [address] [place] [address] [place] Glutamate decarboxylase 65 A b Qn (S)on 11-15-2021 GLUTAMIC ACID DECARBOXYLAS AB QUALITATIVE Positive Abnormal Negative [facility] Comment on above: Order Comment: Malini solorio Type: BLOOD SPECIMEN Ordering Facility: [facility] Address: [address] [place], [place] [id number] Performed By: #### I NSLAB, 42021-5 #### [facility] CLIA [id number] [address] [place] [address] [place] HEMOGLOBIN A1C (POC)on 11-15 HbA1c (Bld) [Mass fraction] 8.1 % Abnormal 4.2 - 5.6 % [facility] INSULIN ANTIBODY BLDon 11-15 Insulin Ab Qn (S) <0.4 Normal <0.4 [facility] Comment on above: Order Comment: Malini solorio Type: BLOOD SPECIMEN Ordering Facility: [facility] Address: [address] [place], [place] [id number] Result Comment: Anti -insulin antibody test is used as an aid in diagnosis and prognosis of autoimmune diabetes mellitus in combination with other tests such as anti-GAD65 and anti-IA-2 antibody. A single negative result cannot rule out autoimmune diabetes mellitus. The test is not reliable in patients who had previously received exogenous insulin. Clinical correlation is required. Performed By: #### I NSLAB, 68402-3 #### [facility] CLIA [id number] [address] [place] [address] [place] INSULIN ANTIBODY, QUALITATIVE Negative Normal Negative [facility] Comment on above: Order Comment: Malini solorio Type: BLOOD SPECIMEN Ordering Facility: [facility] Address: [address] [place] [address] Performed By: #### I NSLAB, 89251-3 #### [facility] CLIA [id number] [address] [place] [address] [place] INSULINOMA ASSOCIATED ANTIBO DY 2on 11-15-2021 IA 2 ANTIBODY BLOOD <5.4 Normal <7.5 [facility] Comment on above: Order Comment: Malini solorio Type: BLOOD SPECIMEN Ordering Facility: [facility] Address: [address] [place] [address] Result Comment: Anti -insulinoma associated antigen 2 (IA-2) antibody test is used as an aid in diagnosis of type I diabetes mellitus, to predict the risk of progression to type I diabetes mellitus among susceptible individuals, and to predict the necessity of insulin therapy in adult-onset diabetes mellitus. Clinical correlation is required. Performed By: #### I A2AB #### [facility] CLIA [id number] [address] [place] [address] [place] ISLET CELL ABon 11-15-2021 ISLET CELL AB <1:4 Normal <1:4 [facility] Comment on above: Order Comment: Malini solorio Type: BLOOD SPECIMEN Ordering Facility: [facility] Address: [address] [place] [address] Result Comment: INTE RPRETIVE INFORMATION: Islet Cell [...] developed and its performance characteristics determined by [facility]. It has not been cleared or approved by the [place] Food and Drug Administration. This test was performed in a CLIA certified laboratory and is intended for clinical purposes. Performed By: [facility] [address] [place] [address] Belting Inspector: Abdirizak Quintana MD, PhD Performed By: #### I SLET #### [facility] CLIA [id number] [address] [place] [address] T4 Free SerPl-mCncon 022 Free T4 [Mass/Vol] 1.9 ng/dL High 0.9-1.7 [facility] Comment on above: Order Comment: Speci men Type: BLOOD SPECIMEN Ordering Facility: [facility] Address: [address] [place] [address] Performed By: #### 3 024-7 #### [facility] CLIA [id number] [address] [place] [address] [place] TSH BLDon 11-15-2021 TSH Qn 0.073 m[IU]/L Low 0.270 - 4.200 mIU/L [facility] TSH SerPl-aCncon 11-15-2021 TSH Qn 0.073 m[IU]/L Low 0.270-4.200 [facility] Comment on above: Order Comment: Speci men Type: BLOOD SPECIMEN Ordering Facility: [facility] Address: [address] [place] [address] Performed By: #### 2 345-7, 3016-3 #### [facility] CLIA [id number] [address] [place] [address] [place] Absolute lymphocyte counton 08-30-2021 Lymphocytes Auto (Unsp spec) [#/Vol] 2.76 10*3/uL 0.83-4.51 [facility] Work Phone: Basophil percentageon 2021 Basophils/100 WBC (Bld) 0.5 % 0-1 [facility] Work Phone: Chloride [Moles/Vol] 104 mmol/L 98-107 [facility] Work Phone: Eosinophils/100 WBC (Bld) 1.3 % 0-5 [facility] Work Phone: Glucose [Mass/Vol] 205 mg/dL 74-106 [facility] Work Phone: Comment on above: Glucose result great er than or equal to 200 mg/dLsuggests DIABETES MELLITUS per A.D.A. criteria. Neutrophils (Bld) [#/Vol] 10.9 10*3/uL 2.0-7.7 [facility] Work Phone: Neutrophils/100 WBC (Bld) 70.9 % 47-70 [facility] Work Phone: Potassium [Moles/Vol] 4.2 mmol/L 3.5-5.1 [facility] Work Phone: Sodium [Moles/Vol] 138 mmol/L 136-145 [facility] Work Phone: WBC (Bld) [#/Vol] 15.4 10*3/uL 4.4-11.0 [facility] Work Phone: Blood erythrocytes count (nu mber/volume)on 08-30-2021 RBC (Bld) [#/Vol] 4.32 10*6/uL 4.2-5.4 [facility] Work Phone: Blood hemoglobin measurement (mass/volume)on 08-30-2021 Hemoglobin (Bld) [Mass/Vol] 12.9 g/dL 12.0-15.0 [facility] Work Phone: Blood lymphocytes/100 leukoc yteson 08-30-2021 Lymphocytes/100 WBC (Bld) 18.0 % 19-41 [facility] Work Phone: Blood monocytes/100 leukocyt eson 08-30-2021 Monocytes/100 WBC (Bld) 7.5 % 0-10 [facility] Work Phone: Blood platelet mean volumeon 08-30-2021 Platelet mean volume (Bld) [Entitic vol] 10.7 fL 6.2-12.0 [facility] Work Phone: Determination of erythrocyte mean corpuscular volume (MCV)on 08-30-2021 MCV (RBC) [Entitic vol] 88.0 fL 81-99 [facility] Work Phone: Hematocrit Auto (Bld) [Volum e fraction]on 08-30-2021 Hematocrit (Bld) [Volume fraction] 38.0 % 37-47 [facility] Work Phone: Laboratory - Chemistry and C hemistry - challengeon 08-30-2021 CO2 [Moles/Vol] 26.0 mmol/L 21.0-32.0 [facility] Work Phone: Urea nitrogen/Creatinine [Mass ratio] 20.2 mg/mg 10-20 [facility] Work Phone: Laboratory - Hematology and Cell countson 08-30-2021 Erythrocyte distribution width (RBC) [Entitic vol] 46.1 fL 35.1-43.9 [facility] Work Phone: Erythrocyte distribution width (RBC) [Ratio] 14.4 % 11.6-14.6 [facility] Work Phone: Immature granulocytes/100 WBC (Bld) 1.800 % 0.0-0.9 [facility] Work Phone: Comment on above: IG% - Immature Granu locytes (promyelocytes, myelocytes and metamyelocytes) > 1% indicates that a LEFT SHIFT is Present. MCH (RBC) [Entitic mass] 29.9 pg 27.0-32.0 [facility] Work Phone: Nucleated RBC/100 WBC (Bld) [Ratio] 0 % 0-5 [facility] Work Phone: MCHC Auto (RBC) [Mass/Vol]on 08-30-2021 MCHC (RBC) [Mass/Vol] 33.9 g/dL 32-36 [facility] Work Phone: No Panel Informationon 08-30 Estimated Creatinine Clearance Calc 27.76 ml/min [facility] Work Phone: Estimated GFR (MDRD) Amer 54 mL/min >60 [facility] Work Phone: Comment on above: GFR Calc Estimated GFR (MDRD) Non-Af Amer 44 mL/min >60 [facility] Work Phone: Comment on above: Non- GFR Calc Platelets bldon 08-30-2021 Platelets (Bld) [#/Vol] 236 10*3/uL 150-450 [facility] Work Phone: Serum or plasma calcium roger urement (mass/volume)on 08-30-2021 Calcium [Mass/Vol] 9.5 mg/dL 8.5-10.1 [facility] Work Phone: Serum or plasma creatinine m easurement (mass/volume)on 08-30-2021 Creatinine [Mass/Vol] 1.24 mg/dL 0.55-1.02 [facility] Work Phone: Comment on above: The validity of the calculated GFR & GFRAA in patients over 70 years has not been determined. Clinical correlation is essential. Serum or plasma urea nitroge n measurement (mass/volume)on 08-30-2021 Urea nitrogen [Mass/Vol] 25 mg/dL 7-18 [facility] Work Phone: Thin prep Papanicolaou smear with manual screeningon 08-30-2021 Thin prep Papanicolaou smear with manual screening 8 5-15 [facility] Work Phone: Absolute lymphocyte counton 08-19-2021 Lymphocytes Auto (Unsp spec) [#/Vol] 2.66 10*3/uL 0.83-4.51 [facility] Work Phone: Basophil percentageon 2021 Chloride [Moles/Vol] 108 mmol/L 98-107 [facility] Work Phone: Glucose [Mass/Vol] 86 mg/dL 74-106 [facility] Work Phone: Potassium [Moles/Vol] 3.6 mmol/L 3.5-5.1 [facility] Work Phone: Sodium [Moles/Vol] 137 mmol/L 136-145 [facility] Work Phone: Basophils/100 WBC (Bld) 0.4 % 0-1 [facility] Work Phone: Eosinophils/100 WBC (Bld) 0.4 % 0-5 [facility] Work Phone: Neutrophils (Bld) [#/Vol] 6.8 10*3/uL 2.0-7.7 [facility] Work Phone: Neutrophils/100 WBC (Bld) 66.0 % 47-70 [facility] Work Phone: WBC (Bld) [#/Vol] 10.3 10*3/uL 4.4-11.0 [facility] Work Phone: Blood erythrocytes count (nu mber/volume)on 08-19-2021 RBC (Bld) [#/Vol] 3.91 10*6/uL 4.2-5.4 [facility] Work Phone: Blood hemoglobin measurement (mass/volume)on 08-19-2021 Hemoglobin (Bld) [Mass/Vol] 11.3 g/dL 12.0-15.0 [facility] Work Phone: Blood lymphocytes/100 leukoc yteson 08-19-2021 Lymphocytes/100 WBC (Bld) 25.9 % 19-41 [facility] Work Phone: Blood monocytes/100 leukocyt eson 08-19-2021 Monocytes/100 WBC (Bld) 6.9 % 0-10 [facility] Work Phone: Blood platelet mean volumeon 08-19-2021 Platelet mean volume (Bld) [Entitic vol] 11.1 fL 6.2-12.0 [facility] Work Phone: Determination of erythrocyte mean corpuscular volume (MCV)on 08-19-2021 MCV (RBC) [Entitic vol] 85.9 fL 81-99 [facility] Work Phone: Glucose Glucometer (BldC) [M ass/Vol]on 08-19-2021 Glucose [Mass/Vol] 252 mg/dL 74-106 [facility] Work Phone: Comment on above: MANAGEMENT OF PATIEN T CARE PER NURSING PROTOCOL Hematocrit Auto (Bld) [Volum e fraction]on 08-19-2021 Hematocrit (Bld) [Volume fraction] 33.6 % 37-47 [facility] Work Phone: Laboratory - Chemistry and C hemistry - challengeon 08-19-2021 CO2 [Moles/Vol] 23.0 mmol/L 21.0-32.0 [facility] Work Phone: Urea nitrogen/Creatinine [Mass ratio] 24.0 mg/mg 10-20 [facility] Work Phone: Laboratory - Hematology and Cell countson 08-19-2021 Erythrocyte distribution width (RBC) [Entitic vol] 44.3 fL 35.1-43.9 [facility] Work Phone: Erythrocyte distribution width (RBC) [Ratio] 14.1 % 11.6-14.6 [facility] Work Phone: Immature granulocytes/100 WBC (Bld) 0.400 % 0.0-0.9 [facility] Work Phone: Comment on above: IG% - Immature Granu locytes (promyelocytes, myelocytes and metamyelocytes) > 1% indicates that a LEFT SHIFT is Present. MCH (RBC) [Entitic mass] 28.9 pg 27.0-32.0 [facility] Work Phone: Nucleated RBC/100 WBC (Bld) [Ratio] 0 % 0-5 [facility] Work Phone: MCHC Auto (RBC) [Mass/Vol]on 08-19-2021 MCHC (RBC) [Mass/Vol] 33.6 g/dL 32-36 [facility] Work Phone: No Panel Informationon 08-19 Estimated Creatinine Clearance Calc 34.42 ml/min [facility] Work Phone: Estimated GFR (MDRD) Amer 102 mL/min >60 [facility] Work Phone: Comment on above: GFR Calc Estimated GFR (MDRD) Non-Af Amer 84 mL/min >60 [facility] Work Phone: Comment on above: Non- GFR Calc Platelets bldon 08-19-2021 Platelets (Bld) [#/Vol] 160 10*3/uL 150-450 [facility] Work Phone: Serum or plasma calcium roger urement (mass/volume)on 08-19-2021 Calcium [Mass/Vol] 8.3 mg/dL 8.5-10.1 [facility] Work Phone: Serum or plasma creatinine m easurement (mass/volume)on 08-19-2021 Creatinine [Mass/Vol] 0.71 mg/dL 0.55-1.02 [facility] Work Phone: Comment on above: The validity of the calculated GFR & GFRAA in patients over 70 years has not been determined. Clinical correlation is essential. Serum or plasma urea nitroge n measurement (mass/volume)on 08-19-2021 Urea nitrogen [Mass/Vol] 17 mg/dL 7-18 [facility] Work Phone: Thin prep Papanicolaou smear with manual screeningon 08-19-2021 Thin prep Papanicolaou smear with manual screening 6 5-15 [facility] Work Phone: Absolute lymphocyte counton 08-18-2021 Lymphocytes Auto (Unsp spec) [#/Vol] 2.55 10*3/uL 0.83-4.51 [facility] Work Phone: Basophil percentageon 2021 Chloride [Moles/Vol] 103 mmol/L 98-107 [facility] Work Phone: Glucose [Mass/Vol] 314 mg/dL 74-106 [facility] Work Phone: Comment on above: Glucose result great er than or equal to 200 mg/dLsuggests DIABETES MELLITUS per A.D.A. criteria. Potassium [Moles/Vol] 6.1 mmol/L 3.5-5.1 [facility] Work Phone: Comment on above: Slight Hemolysis, Re sult may be falsely increased. Critical Result(s) Called at: 20:20:17 08/18/2021 by: [facility]ors[facility] mckenzie [facility] Results read back by same. Sodium [Moles/Vol] 133 mmol/L 136-145 [facility] Work Phone: Basophil percentage 0 SEEN /hpf [facility] Work Phone: Basophils/100 WBC (Bld) 0.3 % 0-1 [facility] Work Phone: Bilirubin [Mass/Vol] 0.90 mg/dL 0.20-1.00 [facility] Work Phone: Comment on above: For patients on eltr ombopag therapy, use of Dimension [place] TBIL is not recommended. Eosinophils/100 WBC (Bld) 0.0 % 0-5 [facility] Work Phone: Neutrophils (Bld) [#/Vol] 9.2 10*3/uL 2.0-7.7 [facility] Work Phone: Neutrophils/100 WBC (Bld) 74.2 % 47-70 [facility] Work Phone: Protein [Mass/Vol] 7.7 g/dL 6.4-8.2 [facility] Work Phone: WBC (Bld) [#/Vol] 12.4 10*3/uL 4.4-11.0 [facility] Work Phone: Bilirubin Test strip Ql (U)o n 08-18-2021 Bilirubin Ql (U) Negative Negative [facility] Work Phone: Blood erythrocytes count (nu mber/volume)on 08-18-2021 RBC (Bld) [#/Vol] 4.91 10*6/uL 4.2-5.4 [facility] Work Phone: Blood hemoglobin measurement (mass/volume)on 08-18-2021 Hemoglobin (Bld) [Mass/Vol] 14.3 g/dL 12.0-15.0 [facility] Work Phone: Blood lymphocytes/100 leukoc yteson 08-18-2021 Lymphocytes/100 WBC (Bld) 20.6 % 19-41 [facility] Work Phone: Blood monocytes/100 leukocyt eson 08-18-2021 Monocytes/100 WBC (Bld) 4.1 % 0-10 [facility] Work Phone: Blood platelet mean volumeon 08-18-2021 Platelet mean volume (Bld) [Entitic vol] 10.9 fL 6.2-12.0 [facility] Work Phone: Determination of erythrocyte mean corpuscular volume (MCV)on 08-18-2021 MCV (RBC) [Entitic vol] 86.4 fL 81-99 [facility] Work Phone: Glucose Glucometer (BldC) [M ass/Vol]on 08-18-2021 Glucose [Mass/Vol] 276 mg/dL 74-106 [facility] Work Phone: Comment on above: MANAGEMENT OF PATIEN T CARE PER NURSING PROTOCOL HCO3 (BldA) [Moles/Vol]on HCO3 (Bld) [Moles/Vol] 19 mmol/L 22-26 [facility] Work Phone: Hematocrit Auto (Bld) [Volum e fraction]on 08-18-2021 Hematocrit (Bld) [Volume fraction] 42.4 % 37-47 [facility] Work Phone: Hyaline casts LM.LPF (Urine sed) [#/Area]on 08-18-2021 Hyaline casts (Urine sed) [#/Area] 5 /[LPF] [facility] Work Phone: Ketones Test strip Ql (U)on 08-18-2021 Ketones Ql (U) 150 mg/dl Negative [facility] Work Phone: Comment on above: CRITICAL VALUE *HCRI TICAL VALUE VERIFIED. CALLED TO [id number] Porshablaire Mckenzie.RESULTS READ BACK BY SAME . Laboratory - Chemistry and C hemistry - challengeon 08-18-2021 CO2 [Moles/Vol] 19.0 mmol/L 21.0-32.0 [facility] Work Phone: Urea nitrogen/Creatinine [Mass ratio] 22.8 mg/mg 10-20 [facility] Work Phone: CO2 [Moles/Vol] 20 mmol/L 23-33 [facility] Work Phone: ALP [Catalytic activity/Vol] 105 U/L 45-117 [facility] Work Phone: ALT [Catalytic activity/Vol] 13 U/L 13-56 [facility] Work Phone: Globulin (S) [Mass/Vol] 3.7 g/dL 2.2-4.2 [facility] Work Phone: Laboratory - Hematology and Cell countson 08-18-2021 Erythrocyte distribution width (RBC) [Entitic vol] 43.5 fL 35.1-43.9 [facility] Work Phone: Erythrocyte distribution width (RBC) [Ratio] 13.7 % 11.6-14.6 [facility] Work Phone: Immature granulocytes/100 WBC (Bld) 0.800 % 0.0-0.9 [facility] Work Phone: Comment on above: IG% - Immature Granu locytes (promyelocytes, myelocytes and metamyelocytes) > 1% indicates that a LEFT SHIFT is Present. MCH (RBC) [Entitic mass] 29.1 pg 27.0-32.0 [facility] Work Phone: Nucleated RBC/100 WBC (Bld) [Ratio] 0 % 0-5 [facility] Work Phone: MCHC Auto (RBC) [Mass/Vol]on 08-18-2021 MCHC (RBC) [Mass/Vol] 33.7 g/dL 32-36 [facility] Work Phone: Mucus LM Ql (Urine sed)on Mucus Ql (Urine sed) 0 SEEN /hpf [facility] Work Phone: Nitrite Test strip Ql (U)on 08-18-2021 Nitrite Ql (U) Negative Negative [facility] Work Phone: No Panel Informationon 08-18 Estimated Creatinine Clearance Calc 28.41 ml/min [facility] Work Phone: Estimated GFR (MDRD) Amer 52 mL/min >60 [facility] Work Phone: Comment on above: GFR Calc Estimated GFR (MDRD) Non-Af Amer 43 mL/min >60 [facility] Work Phone: Comment on above: Non- GFR Calc Bed Mix Venous Bld PCO2 at Pat Temp 42.1 mmHg 41-51 [facility] Work Phone: Blood Gas Specimen Type CATHY [facility] Work Phone: Venous Blood Base Excess -8 mmol/L -1.0-3.5 [facility] Work Phone: PO2 venouson 08-18-2021 Oxygen (BldV) [Partial pressure] 22 mm[Hg] 25-40 [facility] Work Phone: Platelets bldon 08-18-2021 Platelets (Bld) [#/Vol] 229 10*3/uL 150-450 [facility] Work Phone: Protein Test strip Ql (U)on 08-18-2021 Protein Ql (U) 30 mg/dl Negative [facility] Work Phone: Serum or plasma acetone roger urement (mass/volume)on 08-18-2021 Acetone [Mass/Vol] MODERATE NEG [facility] Work Phone: Serum or plasma albumin roger urement (mass/volume)on 08-18-2021 Albumin [Mass/Vol] 4.0 g/dL 3.2-5.0 [facility] Work Phone: Serum or plasma albumin/glob ulin mass ratioon 08-18-2021 Albumin/Globulin [Mass ratio] 1.1 {ratio} 0.9-2.4 [facility] Work Phone: Serum or plasma calcium roger urement (mass/volume)on 08-18-2021 Calcium [Mass/Vol] 9.3 mg/dL 8.5-10.1 [facility] Work Phone: Serum or plasma creatinine m easurement (mass/volume)on 08-18-2021 Creatinine [Mass/Vol] 1.27 mg/dL 0.55-1.02 [facility] Work Phone: Comment on above: The validity of the calculated GFR & GFRAA in patients over 70 years has not been determined. Clinical correlation is essential. Serum or plasma urea nitroge n measurement (mass/volume)on 08-18-2021 Urea nitrogen [Mass/Vol] 29 mg/dL 7-18 [facility] Work Phone: Squamous epithelial cells de tection in urine sediment by light microscopyon 08-18-2021 Epithelial cells.squamous LM Ql (Urine sed) 0 SEEN /hpf [facility] Work Phone: Thin prep Papanicolaou smear with manual screeningon 08-18-2021 Thin prep Papanicolaou smear with manual screening 11 5-15 [facility] Work Phone: Thin prep Papanicolaou smear with manual screening 10 U/L 15-37 [facility] Work Phone: Urine blood detectionon 04-0 RBC Ql (U) Negative Negative [facility] Work Phone: RBC Ql (U) 0 SEEN /hpf [facility] Work Phone: Urine clarityon 08-18-2021 Clarity (U) Clear Clear [facility] Work Phone: Urine color determinationon 08-18-2021 Color (U) Yellow Yellow [facility] Work Phone: Urine glucose detectionon Glucose Ql (U) 1000 mg/dl Normal [facility] Work Phone: Urine leukocyte esterase det ection by dipstickon 08-18-2021 Leukocyte esterase Test strip Ql (U) Negative Negative [facility] Work Phone: Urine pHon 08-18-2021 pH (U) 5.0 [pH] [facility] Work Phone: Urine sediment bacteria coun t by microscopy (number/high power field)on 08-18-2021 Bacteria LM.HPF (Urine sed) [#/Area] 0 /[HPF] None Seen [facility] Work Phone: Urine specific gravity measu rementon 08-18-2021 Specific gravity (U) [Rel density] 1.025 [facility] Work Phone: Urobilinogen Auto test strip Ql (U)on 08-18-2021 Urobilinogen Ql (U) Normal mg/dl Normal [facility] Work Phone: Vital signson 08-18-2021 Oxygen saturation in Blood 30 % 50-70 [facility] Work Phone: Whole blood hemoglobin A1c/t otal hemoglobin ratio (mass fraction)on 08-18-2021 HbA1c (Bld) [Mass fraction] 9.4 % 3.8-5.6 [facility] Work Phone: Comment on above: Normal < 5.7 % Predi abetic 5.7 - 6.4 % Diabetic >or= 6.5 % Please note range changes. pH measurementon 08-18-2021 pH (Unsp spec) 7.26 [pH] 7.32-7.42 [facility] Work Phone: Influenza virus A and B and SARS-CoV-2 (COVID-19) Ag panel - Upper respiratory specim SARS-CoV-2 (COVID-19) RNA SHABANA+probe Ql (Resp) [facility] Work Phone: Vital Signs Date Time Vital Sign Value Performing Clinician Christos corrigan 11-04-2024 07:55-0400 Body height 160.[address] Rg Menchaca MD Work Phone: [facility] 11-04-2024 07:55-0400 Body mass index (BMI) [Ratio] 24.4 kg/m2 Dr. Rg Menchaca MD Work Phone: [facility] 11-04-2024 07:55-0400 Body temperature 96.2 [degF] Dr. Rg Menchaca MD Work Phone: [facility] 11-04-2024 07:55-0400 Body weight 62.[address] Rg Menchaca MD Work Phone: [facility] 11-04-2024 07:55-0400 Diastolic blood pressure 70 mm[Hg] Dr. Rg Menchaca MD Work Phone: [facility] 11-04-2024 07:55-0400 Heart rate 74 /min Dr. Rg Menchaca MD Work Phone: [facility] 11-04-2024 07:55-0400 Respiratory rate 16 /min Dr. Rg Menchaca MD Work Phone: [facility] 11-04-2024 07:55-0400 SaO2% (BldA) [Mass fraction] 94 % Dr. Rg Menchaca MD Work Phone: [facility] 11-04-2024 07:55-0400 Systolic blood pressure 118 mm[Hg] Dr. Rg Menchaca MD Work Phone: [facility] 11-03-2024 08:09-0400 Body height 160.[address] Rg Menchaca MD Work Phone: [facility] 11-03-2024 08:09-0400 Body mass index (BMI) [Ratio] 24.4 kg/m2 Dr. Rg Menchaca MD Work Phone: [facility] 11-03-2024 08:09-0400 Body temperature 97.5 [degF] Dr. Rg Menchaca MD Work Phone: [facility] 11-03-2024 08:09-0400 Body weight 62.[address] Rg Menchaca MD Work Phone: [facility] 11-03-2024 08:09-0400 Diastolic blood pressure 68 mm[Hg] Dr. Rg Menchaca MD Work Phone: 4(795)773-601028 [place] [address] 11-03-2024 08:09-0400 Heart rate 86 /min Dr. Rg Menchaca MD Work Phone: 6(012)012-707489 [address] 11-03-2024 08:09-0400 Respiratory rate 16 /min Dr. Rg Menchaca MD Work Phone: [facility] 11-03-2024 08:09-0400 Systolic blood pressure 116 mm[Hg] Dr. Rg Menchaca MD Work Phone: 8(211)855-684228 [place] [address] 10-08-2024 08:55-0400 Body temperature 97.1 [degF] Dr. Rg Menchaca MD Work Phone: [facility] 10-08-2024 08:55-0400 Diastolic blood pressure 71 mm[Hg] Dr. Rg Menchaca MD Work Phone: [facility] 10-08-2024 08:55-0400 Heart rate 68 /min Dr. Rg Menchaca MD Work Phone: [facility] 10-08-2024 08:55-0400 Respiratory rate 16 /min Dr. Rg Menchaca MD Work Phone: [facility] 10-08-2024 08:55-0400 SaO2% (BldA) [Mass fraction] 94 % Dr. Rg Menchaca MD Work Phone: [facility] 10-08-2024 08:55-0400 Systolic blood pressure 116 mm[Hg] Dr. Rg Menchaca MD Work Phone: [facility] 10-07-2024 08:31-0400 Body height 160.[address] Rg Menchaca MD Work Phone: 9(973)446-262128 [place] [address] 10-07-2024 08:31-0400 Body mass index (BMI) [Ratio] 23.3 kg/m2 Dr. Rg Menchaca MD Work Phone: 8(221)054-385695 [place] [address] 10-07-2024 08:31-0400 Body temperature 97.2 [degF] Dr. Rg Menchaca MD Work Phone: 2(044)720-912995 [place] [address] 10-07-2024 08:31-0400 Body weight 59.[address] Rg Menchaca MD Work Phone: 0(426)826-308695 [place] [address] 10-07-2024 08:31-0400 Diastolic blood pressure 63 mm[Hg] Dr. Rg Menchaca MD Work Phone: 8(561)218-018095 [place] [address] 10-07-2024 08:31-0400 Heart rate 72 /min Dr. Rg Menchaca MD Work Phone: 1(298)727-683895 [place] [address] 10-07-2024 08:31-0400 Respiratory rate 14 /min Dr. Rg Menchaca MD Work Phone: 2(578)185-726495 [place] [address] 10-07-2024 08:31-0400 SaO2% (BldA) [Mass fraction] 96 % Dr. Rg Menchaca MD Work Phone: 9(489)522-287295 [place] [address] 10-07-2024 08:31-0400 Systolic blood pressure 112 mm[Hg] Dr. Rg Menchaca MD Work Phone: 7(444)609-699995 [place] [address] 10-06-2024 08:06-0400 Body height 160.[address] Rg Menchaca MD Work Phone: 4(557)051-639495 [place] [address] 10-06-2024 08:06-0400 Body mass index (BMI) [Ratio] 24.4 kg/m2 Dr. Rg Menchaca MD Work Phone: 7(323)554-582695 [place] [address] 10-06-2024 08:06-0400 Body temperature 97.4 [degF] Dr. Rg Menchaca MD Work Phone: 2(755)607-576695 [place] [address] 10-06-2024 08:06-0400 Body weight 62.[address] Rg Menchaca MD Work Phone: [facility] 10-06-2024 08:06-0400 Diastolic blood pressure 59 mm[Hg] Dr. Rg Menchaca MD Work Phone: [facility] 10-06-2024 08:06-0400 Heart rate 73 /min Dr. Rg Menchaca MD Work Phone: [facility] 10-06-2024 08:06-0400 Respiratory rate 16 /min Dr. Rg Menchaca MD Work Phone: [facility] 10-06-2024 08:06-0400 SaO2% (BldA) [Mass fraction] 92 % Dr. Rg Menchaca MD Work Phone: [facility] 10-06-2024 08:06-0400 Systolic blood pressure 102 mm[Hg] Dr. Rg Menchaca MD Work Phone: [facility] 09-10-2024 08:20-0400 Body height 160.[address] Rg Menchaca MD Work Phone: [facility] 09-10-2024 08:20-0400 Body mass index (BMI) [Ratio] 24.7 kg/m2 Dr. Rg Menchaca MD Work Phone: [facility] 09-10-2024 08:20-0400 Body temperature 96.8 [degF] Dr. Rg Menchaca MD Work Phone: [facility] 09-10-2024 08:20-0400 Body weight 63.[address] Rg Menchaca MD Work Phone: [facility] 09-10-2024 08:20-0400 Diastolic blood pressure 75 mm[Hg] Dr. Rg Menchaca MD Work Phone: [facility] 09-10-2024 08:20-0400 Heart rate 78 /min Dr. Rg Menchaca MD Work Phone: [facility] 09-10-2024 08:20-0400 Respiratory rate 16 /min Dr. Rg Menchaca MD Work Phone: [facility] 09-10-2024 08:20-0400 SaO2% (BldA) [Mass fraction] 95 % Dr. Rg Menchaca MD Work Phone: 7(629)371-451428 [place] [address] 09-10-2024 08:20-0400 Systolic blood pressure 135 mm[Hg] Dr. Rg Menchaca MD Work Phone: 5(587)604-499295 [place] [address] 09-09-2024 12:17-0400 Body temperature 96 [degF] Dr. Rg Menchaca MD Work Phone: 4(896)202-919895 [place] [address] 09-09-2024 12:17-0400 Diastolic blood pressure 76 mm[Hg] Dr. Rg Menchaca MD Work Phone: 9(423)647-904995 [place] [address] 09-09-2024 12:17-0400 Heart rate 68 /min Dr. Rg Menchaca MD Work Phone: 4(066)571-956395 [place] [address] 09-09-2024 12:17-0400 Respiratory rate 16 /min Dr. Rg Menchaca MD Work Phone: 4(678)068-922995 [place] [address] 09-09-2024 12:17-0400 Systolic blood pressure 117 mm[Hg] Dr. Rg Menchaca MD Work Phone: 4(092)975-895995 [place] [address] 09-09-2024 08:09-0400 Body height 160.[address] Rg Menchaca MD Work Phone: 1(442)591-986095 [place] [address] 09-09-2024 08:09-0400 Body mass index (BMI) [Ratio] 24.7 kg/m2 Dr. Rg Menchaca MD Work Phone: 8(324)150-174495 [place] [address] 09-09-2024 08:09-0400 Body weight 63.[address] Rg Menchaca MD Work Phone: 6(190)920-224195 [place] [address] 09-09-2024 08:09-0400 SaO2% (BldA) [Mass fraction] 94 % Dr. Rg Menchaca MD Work Phone: 2(129)793-448295 [place] [address] 09-08-2024 08:33-0400 Body mass index (BMI) [Ratio] 24.7 kg/m2 Dr. Rg Menchaca MD Work Phone: [facility] 09-08-2024 08:33-0400 Body temperature 96.5 [degF] Dr. Rg Menchaca MD Work Phone: [facility] 09-08-2024 08:33-0400 Body weight 63.[address] Rg Menchaca MD Work Phone: [facility] 09-08-2024 08:33-0400 Diastolic blood pressure 75 mm[Hg] Dr. Rg Menchaca MD Work Phone: [facility] 09-08-2024 08:33-0400 Heart rate 80 /min Dr. Rg Menchaca MD Work Phone: [facility] 09-08-2024 08:33-0400 Respiratory rate 16 /min Dr. Rg Menchaca MD Work Phone: [facility] 09-08-2024 08:33-0400 SaO2% (BldA) [Mass fraction] 93 % Dr. Rg Menchaca MD Work Phone: [facility] 09-08-2024 08:33-0400 Systolic blood pressure 126 mm[Hg] Dr. Rg Menchaca MD Work Phone: [facility] 08-13-2024 10:15-0400 Body height 160.[address] Rg Menchaca MD Work Phone: [facility] 08-13-2024 10:15-0400 Body mass index (BMI) [Ratio] 24.9 kg/m2 Dr. Rg Menchaca MD Work Phone: [facility] 08-13-2024 10:15-0400 Body temperature 96.6 [degF] Dr. Rg Menchaca MD Work Phone: [facility] 08-13-2024 10:15-0400 Body weight 63.[address] Rg Menchaca MD Work Phone: [facility] 08-13-2024 10:15-0400 Diastolic blood pressure 72 mm[Hg] Dr. Rg Menchaca MD Work Phone: [facility] 08-13-2024 10:15-0400 Heart rate 73 /min Dr. Rg Menchaca MD Work Phone: [facility] 08-13-2024 10:15-0400 Respiratory rate 16 /min Dr. Rg Menchaca MD Work Phone: [facility] 08-13-2024 10:15-0400 SaO2% (BldA) [Mass fraction] 95 % Dr. Rg Menchaca MD Work Phone: [facility] 08-13-2024 10:15-0400 Systolic blood pressure 121 mm[Hg] Dr. Rg Menchaca MD Work Phone: 5(746)679-823495 [place] [address] 08-12-2024 08:09-0400 Body height 160.[address] Rg Menchaca MD Work Phone: 6(762)858-030795 [place] [address] 08-12-2024 08:09-0400 Body mass index (BMI) [Ratio] 24.9 kg/m2 Dr. Rg Menchaca MD Work Phone: [facility] 08-12-2024 08:09-0400 Body temperature 96.8 [degF] Dr. Rg Menchaca MD Work Phone: 4(076)825-430189 [address] 08-12-2024 08:09-0400 Body weight 63.[address] Rg Menchaca MD Work Phone: 9(331)003-247889 [address] 08-12-2024 08:09-0400 Diastolic blood pressure 59 mm[Hg] Dr. Rg Menchaca MD Work Phone: 0(236)459-070728 [place] [address] 08-12-2024 08:09-0400 Heart rate 79 /min Dr. Rg Menchaca MD Work Phone: 4(277)134-255189 [address] 08-12-2024 08:09-0400 Respiratory rate 16 /min Dr. Rg Menchaca MD Work Phone: 6(304)655-926728 [place] [address] 08-12-2024 08:09-0400 SaO2% (BldA) [Mass fraction] 95 % Dr. Rg Menchaca MD Work Phone: 9(823)713-262495 [place] [address] 08-12-2024 08:09-0400 Systolic blood pressure 104 mm[Hg] Dr. Rg Menchaca MD Work Phone: 5(951)549-451995 [place] [address] 08-11-2024 08:01-0400 Body height 160.[address] Rg Menchaca MD Work Phone: 2(089)826-214795 [place] [address] 08-11-2024 08:01-0400 Body mass index (BMI) [Ratio] 24.9 kg/m2 Dr. Rg Menchaca MD Work Phone: 6(069)484-542795 [place] [address] 08-11-2024 08:01-0400 Body temperature 96.8 [degF] Dr. Rg Menchaca MD Work Phone: 4(492)565-271195 [place] [address] 08-11-2024 08:01-0400 Body weight 63.[address] Rg Menchaca MD Work Phone: 4(705)223-187595 [place] [address] 08-11-2024 08:01-0400 Diastolic blood pressure 73 mm[Hg] Dr. Rg Menchaca MD Work Phone: 7(852)620-169395 [place] [address] 08-11-2024 08:01-0400 Heart rate 83 /min Dr. Rg Menchaca MD Work Phone: 4(827)355-773695 [place] [address] 08-11-2024 08:01-0400 Respiratory rate 16 /min Dr. Rg Menchaca MD Work Phone: 3(298)341-141195 [place] [address] 08-11-2024 08:01-0400 SaO2% (BldA) [Mass fraction] 94 % Dr. Rg Menchaca MD Work Phone: 6(642)316-928395 [place] [address] 08-11-2024 08:01-0400 Systolic blood pressure 116 mm[Hg] Dr. Rg Menchaca MD Work Phone: 6(398)464-700395 [place] [address] 07-16-2024 08:39-0500 Body mass index (BMI) [Ratio] 24.3 kg/m2 Dr. Rg Menchaca MD Work Phone: 7(118)222-051495 [place] [address] 07-16-2024 08:39-0500 Body temperature 96.6 [degF] Dr. Rg Menchaca MD Work Phone: [facility] 07-16-2024 08:39-0500 Body weight 62.[address] Rg Menchaca MD Work Phone: [facility] 07-16-2024 08:39-0500 Diastolic blood pressure 71 mm[Hg] Dr. Rg Menchaca MD Work Phone: 1(317)683-836295 [place] [address] 07-16-2024 08:39-0500 Heart rate 80 /min Dr. Rg Menchaca MD Work Phone: 6(459)335-473095 [place] [address] 07-16-2024 08:39-0500 Respiratory rate 16 /min Dr. Rg Menchaca MD Work Phone: 1(021)535-840895 [place] [address] 07-16-2024 08:39-0500 SaO2% (BldA) [Mass fraction] 96 % Dr. Rg Menchaca MD Work Phone: 6(727)881-128195 [place] [address] 07-16-2024 08:39-0500 Systolic blood pressure 133 mm[Hg] Dr. Rg Menchaca MD Work Phone: 0(255)638-440995 [place] [address] 07-15-2024 13:02-0500 Body temperature 96.5 [degF] Dr. Rg Menchaca MD Work Phone: 5(147)531-071495 [place] [address] 07-15-2024 13:02-0500 Diastolic blood pressure 65 mm[Hg] Dr. Rg Menchaca MD Work Phone: 3(255)502-109695 [place] [address] 07-15-2024 13:02-0500 Heart rate 75 /min Dr. Rg Menchaca MD Work Phone: 3(568)604-813995 [place] [address] 07-15-2024 13:02-0500 Systolic blood pressure 108 mm[Hg] Dr. Rg Menchaca MD Work Phone: 8(878)680-467095 [place] [address] 07-15-2024 08:35-0500 Body mass index (BMI) [Ratio] 24.3 kg/m2 Dr. Rg Menchaca MD Work Phone: 4(823)122-299895 [place] [address] 07-15-2024 08:35-0500 Body weight 62.[address] Rg Menchaca MD Work Phone: 6(982)213-196589 [address] 07-15-2024 08:35-0500 Respiratory rate 16 /min Dr. Rg Menchaca MD Work Phone: 1(595)261-124989 [address] 07-15-2024 08:35-0500 SaO2% (BldA) [Mass fraction] 95 % Dr. Rg Menchaca MD Work Phone: 3(612)268-828789 [address] 07-14-2024 08:22-0500 Body mass index (BMI) [Ratio] 24.3 kg/m2 Dr. Rg Menchaca MD Work Phone: 8(990)854-534295 [place] [address] 07-14-2024 08:22-0500 Body temperature 97.1 [degF] Dr. Rg Menchaca MD Work Phone: 7(514)969-777595 [place] [address] 07-14-2024 08:22-0500 Body weight 62.[address] Rg Menchaca MD Work Phone: 7(314)429-596895 [place] [address] 07-14-2024 08:22-0500 Diastolic blood pressure 70 mm[Hg] Dr. Rg Menchaca MD Work Phone: 1(482)762-325995 [place] [address] 07-14-2024 08:22-0500 Heart rate 83 /min Dr. Rg Menchaca MD Work Phone: 4(829)690-151495 [place] [address] 07-14-2024 08:22-0500 Respiratory rate 16 /min Dr. Rg Menchaca MD Work Phone: 5(603)126-039695 [place] [address] 07-14-2024 08:22-0500 SaO2% (BldA) [Mass fraction] 95 % Dr. Rg Menchaca MD Work Phone: 9(928)754-942995 [place] [address] 07-14-2024 08:22-0500 Systolic blood pressure 102 mm[Hg] Dr. Rg Menchaca MD Work Phone: 9(150)652-555695 [place] [address] 06-18-2024 08:30-0500 Body temperature 96.9 [degF] Dr. Rg eMnchaca MD Work Phone: 2(380)943-018695 [place] [address] 06-18-2024 08:30-0500 Diastolic blood pressure 61 mm[Hg] Dr. Rg Menchaca MD Work Phone: 2(029)331-177495 [place] [address] 06-18-2024 08:30-0500 Heart rate 71 /min Dr. Rg Menchaca MD Work Phone: 1(043)184-741028 [place] [address] 06-18-2024 08:30-0500 Respiratory rate 16 /min Dr. Rg Menchaca MD Work Phone: 5(390)540-904289 [address] 06-18-2024 08:30-0500 SaO2% (BldA) [Mass fraction] 95 % Dr. Rg Menchaca MD Work Phone: 4(388)660-341895 [place] [address] 06-18-2024 08:30-0500 Systolic blood pressure 114 mm[Hg] Dr. Rg Menchaca MD Work Phone: 8(501)379-859795 [place] [address] 06-17-2024 08:43-0500 Body mass index (BMI) [Ratio] 24.3 kg/m2 Dr. Rg Menchaca MD Work Phone: 5(241)777-393995 [place] [address] 06-17-2024 08:43-0500 Body temperature 96.7 [degF] Dr. Rg Menchaca MD Work Phone: 0(159)685-426095 [place] [address] 06-17-2024 08:43-0500 Body weight 62.[address] Rg Menchaca MD Work Phone: 6(013)274-832395 [place] [address] 06-17-2024 08:43-0500 Diastolic blood pressure 62 mm[Hg] Dr. Rg Menchaca MD Work Phone: 4(498)097-267195 [place] [address] 06-17-2024 08:43-0500 Heart rate 78 /min Dr. Rg Menchaca MD Work Phone: 7(323)900-814495 [place] [address] 06-17-2024 08:43-0500 Respiratory rate 16 /min Dr. Rg Menchaca MD Work Phone: 7(520)865-868895 [place] [address] 06-17-2024 08:43-0500 SaO2% (BldA) [Mass fraction] 92 % Dr. Rg Menchaca MD Work Phone: 0(772)542-101389 [address] 06-17-2024 08:43-0500 Systolic blood pressure 108 mm[Hg] Dr. Rg Menchaca MD Work Phone: 7(443)628-168795 [place] [address] 06-16-2024 08:20-0500 Body mass index (BMI) [Ratio] 23.4 kg/m2 Dr. Rg Menchaca MD Work Phone: 8(223)525-407028 [place] [address] 06-16-2024 08:20-0500 Body temperature 97.5 [degF] Dr. Rg Menchaca MD Work Phone: 3(815)267-415595 [place] [address] 06-16-2024 08:20-0500 Body weight [address] Rg Menchaca MD Work Phone: 5(539)999-951495 [place] [address] 06-16-2024 08:20-0500 Diastolic blood pressure 68 mm[Hg] Dr. Rg Menchaca MD Work Phone: 1(331)312-352595 [place] [address] 06-16-2024 08:20-0500 Heart rate 82 /min Dr. Rg Menchaca MD Work Phone: 5(345)819-228295 [place] [address] 06-16-2024 08:20-0500 Respiratory rate 16 /min Dr. Rg Menchaca MD Work Phone: 6(780)131-262295 [place] [address] 06-16-2024 08:20-0500 SaO2% (BldA) [Mass fraction] 95 % Dr. Rg Menchaca MD Work Phone: 9(743)035-399795 [place] [address] 06-16-2024 08:20-0500 Systolic blood pressure 110 mm[Hg] Dr. Rg Menchaca MD Work Phone: 7(152)859-981995 [place] [address] 05-22-2024 09:00-0500 Body temperature 97.2 [degF] Dr. Rg Menchaca MD Work Phone: 8(922)777-571795 [place] [address] 05-22-2024 09:00-0500 Diastolic blood pressure 84 mm[Hg] Dr. Rg Menchaca MD Work Phone: 7(736)903-377495 [place] [address] 05-22-2024 09:00-0500 Heart rate 65 /min Dr. Rg Menchaca MD Work Phone: 4(995)082-054795 [place] [address] 05-22-2024 09:00-0500 Respiratory rate 16 /min Dr. Rg Menchaca MD Work Phone: 2(094)002-583795 [place] [address] 05-22-2024 09:00-0500 SaO2% (BldA) [Mass fraction] 96 % Dr. Rg Menchaca MD Work Phone: [facility] 05-22-2024 09:00-0500 Systolic blood pressure 112 mm[Hg] Dr. Rg Menchaca MD Work Phone: [facility] 05-21-2024 08:39-0500 Body temperature 96.9 [degF] Dr. Rg Menchaca MD Work Phone: 8(535)311-971328 [place] [address] 05-21-2024 08:39-0500 Diastolic blood pressure 60 mm[Hg] Dr. Rg Menchaca MD Work Phone: 4(037)561-276489 [address] 05-21-2024 08:39-0500 Heart rate 74 /min Dr. Rg Menchaca MD Work Phone: 7(204)373-210895 [place] [address] 05-21-2024 08:39-0500 Respiratory rate 16 /min Dr. Rg Menchaca MD Work Phone: 7(659)653-592889 [address] 05-21-2024 08:39-0500 SaO2% (BldA) [Mass fraction] 96 % Dr. Rg Menchaca MD Work Phone: 3(032)337-664389 [address] 05-21-2024 08:39-0500 Systolic blood pressure 105 mm[Hg] Dr. Rg Menchaca MD Work Phone: 3(790)642-175189 [address] 05-19-2024 08:26-0500 Body mass index (BMI) [Ratio] 25 kg/m2 Dr. Rg Menchaca MD Work Phone: 5(123)792-005628 [place] [address] 05-19-2024 08:26-0500 Body temperature 98.6 [degF] Dr. Rg Menchaca MD Work Phone: 6(250)244-065228 [place] [address] 05-19-2024 08:26-0500 Body weight 63.[address] Rg Menchaca MD Work Phone: 5(458)133-653189 [address] 05-19-2024 08:26-0500 Diastolic blood pressure 79 mm[Hg] Dr. Rg Menchaca MD Work Phone: 9(849)916-959928 [place] [address] 05-19-2024 08:26-0500 Heart rate 88 /min Dr. Rg Menchaca MD Work Phone: [facility] 05-19-2024 08:26-0500 Respiratory rate 16 /min Dr. Rg Menchaca MD Work Phone: [facility] 05-19-2024 08:26-0500 SaO2% (BldA) [Mass fraction] 96 % Dr. Rg Menchaca MD Work Phone: [facility] 05-19-2024 08:26-0500 Systolic blood pressure 114 mm[Hg] Dr. Rg Menchaca MD Work Phone: 2(513)620-172195 [place] [address] 04-23-2024 08:22-0500 Body mass index (BMI) [Ratio] 24.5 kg/m2 Dr. Rg Menchaca MD Work Phone: 4(629)[phone] [address] 04-23-2024 08:22-0500 Body temperature 97 [degF] Dr. Rg Menchaca MD Work Phone: 3(053)[phone] [place] [address] 04-23-2024 08:22-0500 Body weight 62.[address] Rg Menchaca MD Work Phone: 3(587)974-121889 [address] 04-23-2024 08:22-0500 Diastolic blood pressure 71 mm[Hg] Dr. Rg Menchaca MD Work Phone: 5(862)202-577589 [address] 04-23-2024 08:22-0500 Heart rate 76 /min Dr. Rg Menchaca MD Work Phone: 7(447)466-129228 [place] [address] 04-23-2024 08:22-0500 Respiratory rate 16 /min Dr. Rg Menchaca MD Work Phone: [facility] 04-23-2024 08:22-0500 SaO2% (BldA) [Mass fraction] 95 % Dr. Rg Menchaca MD Work Phone: 7(958)[phone] [address] 04-23-2024 08:22-0500 Systolic blood pressure 117 mm[Hg] Dr. Rg Menchaca MD Work Phone: 1(018)617-490689 [address] 04-22-2024 08:27-0500 Body mass index (BMI) [Ratio] 24.5 kg/m2 Dr. Rg Menchaca MD Work Phone: 9(528)[phone] [place] [address] 04-22-2024 08:27-0500 Body temperature 97.2 [degF] Dr. Rg Menchaca MD Work Phone: 2(648)[phone] [place] [address] 04-22-2024 08:27-0500 Body weight 62.[address] Rg Menchaca MD Work Phone: 5(373)[phone] [place] [address] 04-22-2024 08:27-0500 Diastolic blood pressure 68 mm[Hg] Dr. Rg Menchaca MD Work Phone: 3(414)[phone] [place] [address] 04-22-2024 08:27-0500 Heart rate 72 /min Dr. Rg Menchaca MD Work Phone: 6(755)[phone] [place] [address] 04-22-2024 08:27-0500 Respiratory rate 16 /min Dr. Rg Menchaca MD Work Phone: 3(436)[phone] [place] [address] 04-22-2024 08:27-0500 SaO2% (BldA) [Mass fraction] 97 % Dr. Rg Menchaca MD Work Phone: 0(730)[phone] [place] [address] 04-22-2024 08:27-0500 Systolic blood pressure 115 mm[Hg] Dr. Rg Menchaca MD Work Phone: 0(888)[phone] [place] [address] 04-21-2024 08:25-0500 Body mass index (BMI) [Ratio] 24.4 kg/m2 Dr. Rg Menchaca MD Work Phone: 8(333)[phone] [place] [address] 04-21-2024 08:25-0500 Body temperature 96.5 [degF] Dr. Rg Menchaca MD Work Phone: 5(072)[phone] [place] [address] 04-21-2024 08:25-0500 Body weight 62.[address] Rg Menchaca MD Work Phone: 5(615)[phone] [place] [address] 04-21-2024 08:25-0500 Diastolic blood pressure 57 mm[Hg] Dr. Rg Menchaca MD Work Phone: 4(908)[phone] [place] [address] 04-21-2024 08:25-0500 Heart rate 77 /min Dr. Rg Menchaca MD Work Phone: [facility] 04-21-2024 08:25-0500 Respiratory rate 16 /min Dr. Rg Menchaca MD Work Phone: [facility] 04-21-2024 08:25-0500 SaO2% (BldA) [Mass fraction] 94 % Dr. Rg Menchaca MD Work Phone: [facility] 04-21-2024 08:25-0500 Systolic blood pressure 104 mm[Hg] Dr. Rg Menchaca MD Work Phone: [facility] 02-05-2024 11:19-0400 Diastolic blood pressure 68 mm[Hg] Windy Yuen MD Work Phone: [facility] 02-05-2024 11:19-0400 Heart rate 81 /min Windy Yuen MD Work Phone: [facility] 02-05-2024 11:19-0400 SaO2% (BldA) [Mass fraction] 94 % Windy Yuen MD Work Phone: [facility] 02-05-2024 11:19-0400 Systolic blood pressure 116 mm[Hg] Windy Yuen MD Work Phone: [facility] 09-13-2023 08:36-0400 Body height 160.02 cm [facility] 09-13-2023 08:36-0400 Body temperature 98.1 [degF] [facility] 09-13-2023 08:36-0400 Diastolic blood pressure 68 mm[Hg] [facility] 09-13-2023 08:36-0400 Heart rate 77 /min [facility] 09-13-2023 08:36-0400 Respiratory rate 16 /min [facility] 09-13-2023 08:36-0400 SaO2% (BldA) [Mass fraction] 94 % [facility] 09-13-2023 08:36-0400 Systolic blood pressure 115 mm[Hg] [facility] 09-12-2023 09:03-0400 Body height 160.02 cm [facility] 09-12-2023 09:03-0400 Body mass index (BMI) [Ratio] 23.4 kg/m2 [facility] 09-12-2023 09:03-0400 Body temperature 98.5 [degF] [facility] 09-12-2023 09:03-0400 Body weight 60 kg [facility] 09-12-2023 09:03-0400 Diastolic blood pressure 75 mm[Hg] [facility] 09-12-2023 09:03-0400 Heart rate 70 /min [facility] 09-12-2023 09:03-0400 Respiratory rate 16 /min [facility] 09-12-2023 09:03-0400 SaO2% (BldA) [Mass fraction] 95 % [facility] 09-12-2023 09:03-0400 Systolic blood pressure 130 mm[Hg] [facility] 09-11-2023 08:32-0400 Body height 160.02 cm [facility] 09-11-2023 08:32-0400 Body temperature 98.3 [degF] [facility] 09-11-2023 08:32-0400 Diastolic blood pressure 64 mm[Hg] [facility] 09-11-2023 08:32-0400 Heart rate 77 /min [facility] 09-11-2023 08:32-0400 Respiratory rate 16 /min [facility] 09-11-2023 08:32-0400 SaO2% (BldA) [Mass fraction] 95 % [facility] 09-11-2023 08:32-0400 Systolic blood pressure 109 mm[Hg] [facility] 09-10-2023 08:39-0400 Body height 160.02 cm [facility] 09-10-2023 08:39-0400 Body mass index (BMI) [Ratio] 23.7 kg/m2 [facility] 09-10-2023 08:39-0400 Body temperature 98 [degF] [facility] 09-10-2023 08:39-0400 Body weight 60.78 kg [facility] 09-10-2023 08:39-0400 Diastolic blood pressure 67 mm[Hg] [facility] 09-10-2023 08:39-0400 Heart rate 80 /min [facility] 09-10-2023 08:39-0400 Respiratory rate 16 /min [facility] 09-10-2023 08:39-0400 SaO2% (BldA) [Mass fraction] 96 % [facility] 09-10-2023 08:39-0400 Systolic blood pressure 115 mm[Hg] [facility] 09-09-2023 13:39-0400 Body temperature 97.1 [degF] [facility] 09-09-2023 13:39-0400 Diastolic blood pressure 65 mm[Hg] [facility] 09-09-2023 13:39-0400 Heart rate 72 /min [facility] 09-09-2023 13:39-0400 Respiratory rate 16 /min [facility] 09-09-2023 13:39-0400 SaO2% (BldA) [Mass fraction] 97 % [facility] 09-09-2023 13:39-0400 Systolic blood pressure 110 mm[Hg] [facility] 09-09-2023 08:39-0400 Body height 160.02 cm [facility] 07-31-2023 16:35-0400 Body height 160.7 cm Windy Yuen MD Work Phone: [facility] 07-31-2023 16:35-0400 Body weight 59.88 kg Windy Yuen MD Work Phone: [facility] 07-31-2023 16:35-0400 Diastolic blood pressure 50 mm[Hg] Windy Yuen MD Work Phone: [facility] 07-31-2023 16:35-0400 Heart rate 72 /min Windy Yuen MD Work Phone: [facility] 07-31-2023 16:35-0400 SaO2% (BldA) [Mass fraction] 96 % Windy Yuen MD Work Phone: [facility] 07-31-2023 16:35-0400 Systolic blood pressure 91 mm[Hg] Windy Yuen MD Work Phone: [facility] 04-29-2022 04:53-0500 Diastolic blood pressure 82 mm[Hg] [facility] Work Phone: 04-29-2022 04:53-0500 Heart rate 70 /min [facility] Work Phone: 04-29-2022 04:53-0500 Respiratory rate 16 /min [facility] Work Phone: 04-29-2022 04:53-0500 SaO2% (BldA) [Mass fraction] 98 % [facility] Work Phone: 04-29-2022 04:53-0500 Systolic blood pressure 124 mm[Hg] [facility] Work Phone: 04-28-2022 21:57-0500 Body height 160.02 cm [facility] Work Phone: 04-28-2022 21:57-0500 Body mass index (BMI) [Ratio] 24.1 kg/m2 [facility] Work Phone: 04-28-2022 21:57-0500 Body temperature 96.2 [degF] [facility] Work Phone: 04-28-2022 21:57-0500 Body weight 61.87 kg [facility] Work Phone: 03-01-2022 13:29-0400 Diastolic blood pressure 63 mm[Hg] [facility] Work Phone: 03-01-2022 13:29-0400 Heart rate 77 /min [facility] Work Phone: 03-01-2022 13:29-0400 Respiratory rate 18 /min [facility] Work Phone: 03-01-2022 13:29-0400 SaO2% (BldA) [Mass fraction] 93 % [facility] Work Phone: 03-01-2022 13:29-0400 Systolic blood pressure 102 mm[Hg] [facility] Work Phone: 03-01-2022 10:29-0400 Body temperature 97.2 [degF] [facility] Work Phone: 03-01-2022 10:25-0400 Body mass index (BMI) [Ratio] 21.9 kg/m2 [facility] Work Phone: 03-01-2022 10:25-0400 Body weight 56.1 kg [facility] Work Phone: 11-15-2021 11:23-0400 Body weight 55.79 kg La Nena Lala MD Work Phone: [facility] 11-15-2021 11:23-0400 Diastolic blood pressure 67 mm[Hg] La Nena Lala MD Work Phone: [facility] 11-15-2021 11:23-0400 Heart rate 85 /min La Nena Lala MD Work Phone: [facility] 11-15-2021 11:23-0400 Respiratory rate 16 /min La Nena Lala MD Work Phone: [facility] 11-15-2021 11:23-0400 SaO2% (BldA) [Mass fraction] 99 % La Nena Lala MD Work Phone: [facility] 11-15-2021 11:23-0400 Systolic blood pressure 105 mm[Hg] La Nena Lala MD Work Phone: [facility] 08-30-2021 20:07-0400 Diastolic blood pressure 74 mm[Hg] Dr. Rg Menchaca Work Phone: [facility] Work Phone: 08-30-2021 20:07-0400 Heart rate 69 /min Dr. Rg Menchaca Work Phone: [facility] Work Phone: 08-30-2021 20:07-0400 Respiratory rate 18 /min Dr. Rg Menchaca Work Phone: [facility] Work Phone: 08-30-2021 20:07-0400 SaO2% (BldA) [Mass fraction] 96 % Dr. Rg Menchaca Work Phone: [facility] Work Phone: 08-30-2021 20:07-0400 Systolic blood pressure 94 mm[Hg] Dr. Rg Mnechaca Work Phone: [facility] Work Phone: 08-30-2021 18:05-0400 Body height 154.[address] Rg Menchaca Work Phone: [facility] Work Phone: 08-30-2021 18:05-0400 Body mass index (BMI) [Ratio] 25.9 kg/m2 Dr. Rg Menchaca Work Phone: [facility] Work Phone: 08-30-2021 18:05-0400 Body temperature 96.8 [degF] Dr. Rg Menchaca Work Phone: [facility] Work Phone: 08-30-2021 18:05-0400 Body weight 62.[address] Rg Menchaca Work Phone: [facility] Work Phone: 08-19-2021 14:30-0400 Body temperature 98.9 [degF] Dr. Rg Menchaca Work Phone: [facility] Work Phone: 08-19-2021 14:30-0400 Diastolic blood pressure 68 mm[Hg] Dr. Rg Menchaca Work Phone: [facility] Work Phone: 08-19-2021 14:30-0400 Heart rate 88 /min Dr. Rg Menchaca Work Phone: [facility] Work Phone: 08-19-2021 14:30-0400 Respiratory rate 18 /min Dr. Rg Menchaca Work Phone: [facility] Work Phone: 08-19-2021 14:30-0400 SaO2% (BldA) [Mass fraction] 96 % Dr. Rg Menchaca Work Phone: [facility] Work Phone: 08-19-2021 14:30-0400 Systolic blood pressure 104 mm[Hg] Dr. Rg Menchaca Work Phone: [facility] Work Phone: 08-19-2021 12:54-0400 Body height 154.[address] Rg Menchaca Work Phone: [facility] Work Phone: 08-19-2021 12:54-0400 Body weight 53.[address] Rg Menchaca Work Phone: [facility] Work Phone: 08-18-2021 21:27-0400 Body mass index (BMI) [Ratio] 22.2 kg/m2 Dr. Rg Menchaca Work Phone: [facility] Work Phone: 08-18-2021 20:57-0400 Body temperature 98 [degF] [facility] Work Phone: 08-18-2021 20:57-0400 Diastolic blood pressure 62 mm[Hg] [facility] Work Phone: 08-18-2021 20:57-0400 Heart rate 74 /min [facility] Work Phone: 08-18-2021 20:57-0400 Respiratory rate 16 /min [facility] Work Phone: 08-18-2021 20:57-0400 SaO2% (BldA) [Mass fraction] 98 % [facility] Work Phone: 08-18-2021 20:57-0400 Systolic blood pressure 106 mm[Hg] [facility] Work Phone: 08-18-2021 17:31-0400 Body height 159.99 cm [facility] Work Phone: 08-18-2021 17:31-0400 Body mass index (BMI) [Ratio] 21.4 kg/m2 [facility] Work Phone: 08-18-2021 17:31-0400 Body weight 54.9 kg [facility] Work Phone: Encounters Encounter Date Encounter Type Care Provider Facility Start: 11-05-2024 ambulatory [facility] y:[facility] Start: 11-04-2024 End: 11-04-2024 ambulatory [facility] Facility:[facility] Start: 11-04-2024 End: 11-04-[address] Windy Yuen MD -Medical Out Work Phone: Start: 11-03-2024 End: 11-03-2024 ambulatory [facility] Facility:[facility] Start: 11-03-2024 End: 11-03-[address] Windy Yuen MD -Medical Out Work Phone: Start: 10-08-2024 End: 10-08-[address] Windy Yuen MD -Medical Out Work Phone: Start: 10-08-2024 End: 10-08-2024 ambulatory [facility] Facility:[facility] Start: 10-07-2024 End: 10-07-[address] Windy Yuen MD -Medical Out Work Phone: Start: 10-07-2024 End: 10-07-[address] Rg Menchaca MD Work Phone: [facility] Work Phone: Start: 10-06-2024 End: 10-06-[address] Windy Yuen MD -Medical Out Work Phone: Start: 10-06-2024 End: 10-06-[address] Rg Menchaca MD Work Phone: [facility] Work Phone: Start: 09-10-2024 End: 09-10-[address] Windy Yuen MD -Medical Out Work Phone: Start: 09-10-2024 End: 09-10-[address] Rg Menchaca MD Work Phone: [facility] Work Phone: Start: 09-09-2024 End: 09-09-[address] Windy Yuen MD -Medical Out Work Phone: Start: 09-09-2024 End: 09-09-[address] Rg Menchaca MD Work Phone: [facility] Work Phone: Start: 09-08-2024 End: 09-08-[address] Windy Yuen MD -Medical Out Work Phone: Start: 09-08-2024 End: 09-08-2024 [facility] Start: 08-13-2024 End: 08-13-[address] Windy Yuen MD -Medical Out Work Phone: Start: 08-13-2024 End: 08-13-[address] Rg Menchaca MD Work Phone: [facility] Work Phone: Start: 08-12-2024 End: 08-12-[address] Windy Yuen MD -Medical Out Work Phone: Start: 08-12-2024 End: 08-12-[address] Rg Menchaca MD Work Phone: [facility] Work Phone: Start: 08-11-2024 End: 08-11-[address] Windy Yuen MD -Medical Out Work Phone: Start: 08-11-2024 End: 08-11-[address] Rg Menchaca MD Work Phone: [facility] Work Phone: Start: 07-16-2024 End: 07-16-[address] Windy Yuen MD -Medical Out Work Phone: Start: 07-16-2024 End: 07-16-2024 ambulatory [facility] Start: 07-15-2024 End: 07-15-[address] Windy Yuen MD -Medical Out Work Phone: Start: 07-15-2024 End: 07-15-2024 ambulatory [facility] Start: 07-14-2024 End: 07-14-[address] Windy Yuen MD -Medical Out Work Phone: Start: 07-14-2024 End: 07-14-2024 ambulatory [facility] Start: 06-18-2024 End: 06-18-[address] Windy Yuen MD -Medical Out Work Phone: Start: 06-18-2024 End: 06-18-2024 ambulatory [facility] Facility:[facility] Start: 06-17-2024 End: 06-17-[address] Windy Yuen MD -Medical Out Work Phone: Start: 06-17-2024 End: 06-17-2024 ambulatory [facility] Start: 06-16-2024 End: 06-16-[address] Windy Yune MD -Medical Out Work Phone: Start: 06-16-2024 End: 06-16-2024 ambulatory [facility] Facility:[facility] Start: 05-22-2024 End: 05-22-[address] Windy Yuen MD -Medical Out Work Phone: Start: 05-22-2024 End: 05-22-2024 ambulatory [facility] Facility:[facility] Start: 05-21-2024 End: 05-21-[address] Windy Yuen MD -Medical Out Work Phone: Start: 05-21-2024 End: 05-21-2024 ambulatory [facility] Facility:[facility] Start: 05-19-2024 End: 05-19-[address] Windy Yuen MD -Medical Out Work Phone: Start: 05-19-2024 End: 05-19-2024 ambulatory [facility] Facility:[facility] Start: 04-23-2024 End: 04-23-[address] Windy Yuen MD -Medical Out Work Phone: Start: 04-23-2024 End: 04-23-2024 ambulatory [facility] Facility:[facility] Start: 04-22-2024 End: 04-22-[address] Windy Yuen MD -Medical Out Work Phone: Start: 04-22-2024 End: 04-22-2024 ambulatory [facility] Facility:[facility] Start: 04-21-2024 End: 04-21-[address] Windy Yuen MD -Medical Out Work Phone: Start: 04-21-2024 End: 04-21-2024 ambulatory [facility] Facility:[facility] Start: 03-26-2024 End: 03-26-2024 ambulatory [facility] Facility:[facility] Start: 03-25-2024 End: 03-25-2024 ambulatory Windy Spolter Facility:[facility] Start: 03-24-2024 End: 03-24-2024 ambulatory Windy Spolter Facility:[facility] Start: 02-27-2024 End: 02-27-2024 ambulatory Windy Spolter Facility:[facility] Start: 02-26-2024 End: 02-26-2024 ambulatory Windy Spolter Facility:[facility] Start: 02-25-2024 End: 02-25-2024 ambulatory Windy Spolter Facility:[facility] Start: 02-06-2024 End: 02-06-2024 Telephone encounter Windy Yuen MD Work Phone: Neurology Comment on above: Orders (IVIG) Start: 02-05-2024 End: 02-05-2024 ambulatory WINDY S SPOLTER Facility:[facility] Start: 02-05-2024 End: 02-05-2024 Patient encounter procedure Windy Yuen MD Work Phone: Neurology Comment on above: Stiff person syndrom e Start: 01-31-2024 End: 01-31-2024 ambulatory Windy Spolter Facility:[facility] Start: 01-30-2024 End: 01-30-2024 ambulatory Windy Spolter Facility:[facility] Start: 01-29-2024 End: 01-29-2024 ambulatory Windy Spolter Facility:[facility] Start: 01-28-2024 End: 01-28-2024 ambulatory Windy Spolter Facility:[facility] Start: 01-27-2024 End: 01-27-2024 ambulatory Windy Spolter Facility:[facility] Start: 01-03-2024 End: 01-03-2024 ambulatory Windy Spolter Facility:[facility] Start: 01-02-2024 End: 01-02-2024 ambulatory Windy Spolter Facility:[facility] Start: 01-01-2024 End: 01-01-2024 ambulatory Windy Spolter Facility:[facility] Start: 12-31-2023 End: 12-31-2023 ambulatory Windy Spolter Facility:[facility] Start: 12-30-2023 End: 12-30-2023 ambulatory Windy Spolter Facility:[facility] Start: 12-06-2023 End: 12-06-2023 ambulatory Windy Spolter Facility:[facility] Start: 12-05-2023 End: 12-05-2023 ambulatory Windy Spolter Facility:[facility] Start: 12-04-2023 End: 12-04-2023 ambulatory Windy Spolter Facility:[facility] Start: 12-03-2023 End: 12-03-2023 ambulatory Windy Spolter Facility:[facility] Start: 12-02-2023 End: 12-02-2023 ambulatory Windy Spolter Facility:[facility] Start: 11-24-2023 Telephone encounter Windy Yuen MD Work Phone: Neurology Comment on above: Appointment (Update faxed to [facility] for appointment 02/05/24) Start: 11-14-2023 Telephone encounter Windy Yuen MD Work Phone: Neurology Start: 11-08-2023 End: 11-08-2023 ambulatory Windy Spolter Facility:[facility] Start: 11-07-2023 End: 11-07-2023 ambulatory Windy Spolter Facility:[facility] Start: 11-06-2023 End: 11-06-2023 ambulatory Windy Spolter Facility:[facility] Start: 11-05-2023 End: 11-05-2023 ambulatory Windy Spolter Facility:[facility] Start: 11-04-2023 End: 11-04-2023 ambulatory Windy Spolter Facility:[facility] Start: 10-29-2023 Telephone encounter Windy Yuen MD Work Phone: Neurology Comment on above: Appointment (Appoint ment Update Faxed to [facility] for 12/17/23) Start: 10-15-2023 Telephone encounter Windy Yuen MD Work Phone: Neurology Comment on above: Patient Update Start: 09-25-2023 Telephone encounter Windy Yuen MD Work Phone: Neurology Comment on above: Appointment Start: 09-18-2023 Telephone encounter Windy Yuen MD Work Phone: Neurology Comment on above: Medication Question Start: 09-13-2023 End: 09-13-2023 ambulatory [facility] Work Phone: Start: 09-13-2023 End: 09-13-2023 Patient encounter procedure [facility] Work Phone: Start: 09-12-2023 End: 09-12-2023 ambulatory [facility] Work Phone: Start: 09-12-2023 End: 09-12-2023 Patient encounter procedure [facility] Work Phone: Start: 09-11-2023 End: 09-11-2023 ambulatory [facility] Work Phone: Start: 09-11-2023 End: 09-11-2023 Patient encounter procedure [facility] Work Phone: Start: 09-10-2023 End: 09-10-2023 ambulatory [facility] Work Phone: Start: 09-10-2023 End: 09-10-2023 Patient encounter procedure [facility] Work Phone: Start: 09-09-2023 End: 09-09-2023 ambulatory [facility] Work Phone: Start: 09-09-2023 End: 09-09-2023 Patient encounter procedure [facility] Work Phone: Start: 08-13-2023 Telephone encounter Windy Yuen MD Work Phone: [facility] Start: 07-31-2023 End: 07-31-2023 ambulatory WINDY YUEN Facility:[facility] Start: 07-31-2023 End: 07-31-2023 Patient encounter procedure Windy Yuen MD Work Phone: Neurology Comment on above: Stiff person syndrom e (Primary Dx) Start: 04-30-2023 End: 04-30-2023 ambulatory RG MENCHACA Facility:[facility] Start: 04-30-2023 End: 04-30-2023 ambulatory WINDY YUEN Facility:[facility] Start: 2023 Telephone encounter Luis Eduardo Clemons [...] patient La Nena Lala MD Work Phone: [facility] Start: 05-31-2022 Telephone encounter La Nena Keen i, MD Work Phone: Endocrinology Comment on above: Appointment (Resched ule ) Start: 04-28-2022 End: 04-29-2022 Emergency department patient visit [facility]Emergency Department Start: 04-18-2022 ambulatory UNKNOWN PROVIDER Facili ty:[facility] Start: 04-18-2022 End: 04-18-2022 Patient encounter procedure Maryan Loving DPEmeli Work Phone: Podiatry Comment on above: Cavovarus deformity of foot, acquired, right (Primary Dx); Other osteoporosis without current pathological fracture; Hammertoe, bilateral Start: 04-18-2022 End: 04-18-2022 Subsequent hospital visit by physician [facility] Work Phone: Radiology Comment on above: Pain [R52] Start: 03-08-2022 ambulatory Facility:[facility] Start: 03-01-2022 End: 03-01-2022 Emergency department patient visit [facility]Emergency Department Start: 11-15-2021 End: 11-16-2021 ambulatory UNKNOWN PROVIDER Facility:[facility] Start: 11-15-2021 End: 11-15-2021 Patient encounter procedure La Nena Lala MD Work Phone: Endocrinology Comment on above: Acquired hypothyroid ism (Primary Dx); Poorly controlled type 1 diabetes mellitus (HCC) Start: 08-30-2021 End: 08-30-2021 Emergency department patient visit Dr. Rg Menchaca Work Phone: [facility]Emergency Department Start: 08-19-2021 Non-patient / Non-visit Dr. Eron Menchaca Work Phone: [facility] Phys[facility] Start: 08-18-2021 End: 08-19-2021 Evaluation and management of inpatient [facility]-Progressive Care Unit Procedures Date Procedure Procedure Detail Performing Clinician Start: 04-18-2022 Radex foot complete minimum 3 views Maryan Loving DPM Work Phone: Start: 11-15-2021 Hemoglobin A1c/Hemoglobin.total in Blood La Nena Lala MD Work Phone: SARS-CoV-2 & FLU Ant igen (Rapid) Plan of Treatment Date Care Activity Detail Author Start: 10-07-2024 Iv infusion therapy prophylaxis/dx ea hour THER/PROPH/DIAG IV INF [facility] Start: 10-07-2024 Iv infusion therapy/prophylaxis /dx 1st to 1 hr THER/PROPH/DIAG IV INF [facility] Start: 10-07-2024 Therapeutic injectio n iv push each new drug TX/PRO/DX INJ NEW DRUG [facility] Start: 09-10-2024 Iv infusion therapy prophylaxis/dx ea hour THER/PROPH/DIAG IV INF [facility] Start: 09-10-2024 Iv infusion therapy/prophylaxis /dx 1st to 1 hr THER/PROPH/DIAG IV INF [facility] Start: 09-10-2024 Therapeutic injectio n iv push each new drug TX/PRO/DX INJ NEW DRUG [facility] Start: 08-11-2024 Iv infusion therapy prophylaxis/dx ea hour THER/PROPH/DIAG IV INF [facility] Start: 08-11-2024 Iv infusion therapy/prophylaxis /dx 1st to 1 hr THER/PROPH/DIAG IV INF [facility] Start: 08-11-2024 Therapeutic injectio n iv push each new drug TX/PRO/DX INJ NEW DRUG [facility] Start: 08-11-2024 End: 08-11-2024 Patient encounter procedure 08/11/2024 12:00 PM EDT Office Visit Neurology [address] [facility] [address] [place] [address] Windy Yuen MD [address] [facility] [address] [place] [address] 6 mo Neurology Comment on above: 6 mo Start: 07-16-2024 Iv infusion therapy prophylaxis/dx ea hour THER/PROPH/DIAG IV INF [facility] Start: 07-16-2024 Iv infusion therapy/prophylaxis /dx 1st to 1 hr THER/PROPH/DIAG IV INF [facility] Start: 07-16-2024 Therapeutic injectio n iv push each new drug TX/PRO/DX INJ NEW DRUG [facility] Start: 02-05-2024 End: 02-05-2024 Patient encounter procedure 02/05/2024 11:30 AM EDT Office Visit Neurology [address] [facility] [address] [place] [address] Windy Yuen MD [address] [facility] [address] [place] [address] 3 mo follow up Neurology Comment on above: 3 mo follow up Start: 01-19-2024 Covid-19 Vaccine () Covid-19 Vaccine () [facility] Start: 01-19-2024 Covid-19 Vaccine ( season) Covid-19 Vaccine () [facility] Start: 01-19-2024 Influenza vaccination [facility] Start: 12-17-2023 End: 12-17-2023 Patient encounter procedure 12/17/2023 12:00 PM EDT Office Visit Neurology [address] [place] [address] Windy Yuen MD [address] [facility] [place] [address] 3 mo follow up- 09/24 mychart message [...] 05-20-2023 Advance Directive Discussion Advance Directive Discussion [facility] Start: 05-20-2023 Behavioral Health Screening Behavioral Health Screening [facility] Start: 05-20-2023 Depression Assessment Depression Ass essment [facility] Start: 01-18-2023 Covid-19 Vaccine ( season) Covid-19 Vaccine ( season) [facility] Start: 01-18-2023 Influenza vaccination Influenza Vacc ine (#1) [facility] Start: 11-15-2022 3 comp foot exam completed DIABETIC FOOT EXAM [facility] Start: 11-15-2022 Diabetic foot examination Diabetic Foot Exam [facility] Start: 05-20-2022 ADVANCE DIRECTIVE DISCUSSION ADVANCE DIRECTIVE DISCUSSION [facility] Start: 05-20-2022 DEPRESSION ASSESSMENT DEPRESSION ASS ESSMENT [facility] Start: 02-15-2022 Hemoglobin A1c measurement HbA1C [facility] Start: 02-15-2022 Hemoglobin A1c/Hemoglobin.total in Blood HBA1C [facility] Start: 01-18-2022 Influenza vaccination [facility] Start: 11-15-2021 End: 01-15-2022 C peptide [Mass/volume] in Serum or Plasma [facility] Work Phone: Comment on above: Expected: 11/15/2021 , Expires: 01/15/2022 Start: 11-15-2021 End: 11-15-2022 Glutamate decarboxylase 65 Ab [Units/volume] in Serum [facility] Work Phone: Comment on above: Expected: 11/15/2021 , Expires: 11/15/2022 Start: 11-15-2021 End: 11-15-2022 INSULIN ANTIBODY BLD [facility] Work Phone: Comment on above: Expected: 11/15/2021 , Expires: 11/15/2022 Start: 11-15-2021 End: 01-15-2022 INSULINOMA ASSOCIATED ANTIBODY 2 [facility] Work Phone: Comment on above: Expected: 11/15/2021 , Expires: 01/15/2022 Start: 11-15-2021 End: 11-15-2022 Pancreatic islet cell Ab [Titer] in Serum [facility] Work Phone: Comment on above: Expected: 11/15/2021 , Expires: 11/15/2022 Start: 11-15-2021 End: 01-15-2022 Thyroxine (T4) free [Mass/volume] in Serum or Plasma [facility] Work Phone: Comment on above: Expected: 11/15/2021 , Expires: 01/15/2022 Start: 05-20-2021 ADVANCE DIRECTIVE DISCUSSION ADVANCE DIRECTIVE DISCUSSION [facility] Start: 05-20-2021 DEPRESSION ASSESSMENT DEPRESSION ASS ESSMENT [facility] Start: 04-17-2021 COVID-19 VACCINE (2 - Pfizer series) COVID-19 VACCINE (2 - Pfizer series) [facility] Start: 04-21-2019 ANNUAL PCP TEAM CLINICAL REVIEW NURSE ANDREY DISEASE VISIT ANNUAL PCP TEAM CHRONIC DISEASE VISIT [facility] Start: 03-08-2018 Hepatitis B surface antibody level LDL CHOLESTEROL [facility] Start: 2017 RSV Vaccine (1 - 1-d ose 75+ series) RSV Vaccine (1 - 1-dose 75+ series) [facility] Start: 05-21-2016 PNEUMOCOCCAL: 65+ (2 - PPSV23 if available, else PCV20) PNEUMOCOCCAL: 65+ (2 - PPSV23 if available, else PCV20) [facility] Start: 05-21-2016 PNEUMOCOCCAL: 65+ (2 - PPSV23 or PCV20) PNEUMOCOCCAL: 65+ (2 - PPSV23 or PCV20) [facility] Start: 07-16-2015 Pneumococcal Vaccine : 65+ (2 - PPSV23 or PCV20) Pneumococcal Vaccine: 65+ (2 - PPSV23 or PCV20) [facility] Start: 07-16-2015 Pneumococcal Vaccine : 65+ (2 of 2 - PPSV23 or PCV20) Pneumococcal Vaccine: 65+ (2 of 2 - PPSV23 or PCV20) [facility] Start: 07-16-2015 PNEUMOCOCCAL: 65+ (2 - PPSV23 if available, else PCV20) PNEUMOCOCCAL: 65+ (2 - PPSV23 if available, else PCV20) [facility] Start: 2007 BONE DENSITY BONE DENSITY [facility] Start: 2007 Bone Density Screening Bone Density Screening [facility] Start: 2007 Screening for osteoporosis Bone Density Screening [facility] Start: 2002 Hepatitis B Vaccine (1 of 3 - Risk 3-dose series) Hepatitis B Vaccine (1 of 3 - Risk 3-dose series) [facility] Start: 2002 RSV Vaccine (1 - 1-d ose 60+ series) RSV Vaccine (1 - 1-dose 60+ series) [facility] Start: 1992 SHINGRIX VACCINE (1 of 2) SHINGRIX VACCINE (1 of 2) [facility] Start: 1961 Urine microalbumin profile [facility] Start: 1960 Depression Screening Depression Scre ening [facility] Start: 1954 Adult depression screening assessment DEPRESSION SCREENING [facility] Start: 1952 Glaucoma screening Dilated Retinal E xam [facility] Start: 1952 Hepatitis B screening URINE ALBUMIN:CREATININE RATIO [facility] Start: 1952 Hepatitis C antibody , confirmatory test DILATED RETINAL EXAM [facility] Patient Education [facility] Work Phone: Patient referral [facility] Work Phone: [facility] Immunizations Immunization Date Immunization Notes Care Provider Fa cility 08-24-2020 influenza, injectabl e, quadrivalent, preservative free [facility] 08-24-2020 influenza, seasonal, injectable Dr. Rg Menchaca Work Phone: [facility] Work Phone: 08-24-2020 influenza virus vaccine, unspecified formulation Luis Eduardo Clemons Jr., MD Work Phone: [facility] 04-07-2018 Influenza virus vaccine [facility] 03-14-2018 influenza, high dose seasonal, preservative-free La Nena Lala MD Work Phone: [facility] Work Phone: 2017 influenza, high dose seasonal, preservative-free La Nena Lala MD Work Phone: [facility] 05-21-2015 pneumococcal conjuga te vaccine, 13 valent La Nena Lala MD Work Phone: [facility] Payers Date Payer Category Payer Self-pay [id number] 2023 Unknown [id number] 2022 Medicare [facility] MEDICARE [facility] DUAL COMPLETE HMO POS SNP [id number] 2022-Present [phone] [address] [place] [address] Medicare [id number] 2022 Unknown [id number] 2021 Medicaid [facility] MEDICAID MYC ARE [facility] MEDICAID [id number] 2021-Present [phone] [address] [place] [address] Medicaid [id number] 2021 Medicaid [facility] MEDICAID MYC ARE [facility] MEDICAID [id number] 2021-Present [phone] [address] [place] [address] Medicaid [id number] 2021 Unknown [id number] Medicare [id number] Unknown [id number] 2.16.840.1.884197.3.579.2.462 Unknown [id number] 2.16.840.1.217670.3.579.2.462 Unknown [id number] 2.16.840.1.269623.3.579.2.462 Unknown [id number] 2.16.840.1.408853.3.579.2.462 Unknown [id number] 2.16.840.1.880581.3.579.2.462 Unknown [id number] 2.16.840.1.687075.3.579.2.462 Unknown [id number] 2.16.840.1.480584.3.579.2.462 Unknown [id number] 2.16.840.1.095536.3.579.2.462 Unknown [id number] 2.16.840.1.013624.3.579.2.462 Unknown [id number] 2.16.840.1.672703.3.579.2.462 Unknown [id number] 2.16.840.1.996712.3.579.2.462 Unknown [id number] 2.16.840.1.758935.3.579.2.462 Unknown [id number] 2.16.840.1.167684.3.579.2.462 Unknown [id number] 2.16.840.1.987393.3.579.2.462 Unknown [id number] 2.16.840.1.589193.3.579.2.462 Unknown [id number] 2.16.840.1.047061.3.579.2.462 Unknown [id number] 2.16.840.1.706435.3.579.2.462 Unknown [id number] 2.16840.1.011693.3.579.2.462 Unknown [id number] 2.16840.1.514253.3.579.2.462 Unknown [id number] 2.16840.1.421560.3.579.2.462 Unknown [id number] 2.16840.1.356848.3.579.2.462 Unknown [id number] 2.840.1.843706.3.579.2.462 Unknown [id number] 2.840.1.612507.3.579.2.462 Unknown [id number] 2.840.1.082481.3.579.2.462 Unknown [id number] 2.16840.1.892961.3.579.2.462 Unknown [id number] 2.16840.1.897493.3.579.2.462 Unknown [id number] 2.840.1.412592.3.579.2.462 Unknown [id number] 2.16840.1.644082.3.579.2.462 Unknown [id number] 2.16840.1.563315.3.579.2.462 Unknown [id number] 2.16840.1.359231.3.579.2.462 Unknown [id number] 2.16.840.1.360342.3.579.2.462 Unknown [id number] 2.16840.1.506071.3.579.2.462 Unknown [id number] 2.16.840.1.729765.3.579.2.462 Unknown [id number] 2.16.840.1.388267.3.579.2.462 Unknown [id number] 2.16.840.1.839761.3.579.2.462 Unknown [id number] 2.16.840.1.257577.3.579.2.462 Unknown [id number] 2.16840.1.872485.3.579.2.462 Unknown [id number] 2.16.840.1.755742.3.579.2.462 Unknown [id number] 2.16840.1.383004.3.579.2.462 Unknown [id number] 2.16.840.1.081536.3.579.2.462 Unknown [id number] 2.840.1.788642.3.579.2.462 Unknown [id number] 2.840.1.818028.3.579.2.462 Unknown [id number] 2.840.1.311997.3.579.2.462 Unknown [id number] 2.16840.1.751629.3.579.2.462 Unknown [id number] 2.16840.1.621479.3.579.2.462 Unknown [id number] 2.840.1.069510.3.579.2.462 Unknown [id number] 2.16840.1.536728.3.579.2.462 Unknown [id number] 2.840.1.599143.3.579.2.462 Unknown [id number] 2.840.1.530609.3.579.2.462 Unknown [id number] 2.840.1.879649.3.579.2.462 Social History Date Type Detail Facility Start: 08-18-2021 End: 04-28-2022 Tobacco smoking status INIS Unknown if ever smoked [facility] Start: 11-28-2018 None [facility] Start: 11-28-2018 Fpc [facility] Start: 11-28-2018 Non-smoker [facility] Start: 1940 Sex Assigned At Female [facility] Start: 01-07-2018 End: 04-28-2022 Tobacco smoking status NHIS Ex-smoker [facility] Start: 01-07-2018 End: 07-31-2023 Tobacco use and exposure Smokeless tobacco non-user [facility] Start: 1940 Sex Assigned At Not on file [facility] Start: 11-05-2021 End: 04-18-2022 Exposure to SARS-CoV-2 (event) Not sure [facility] History of tobacco use Current smoker [facility] Start: 04-18-2022 End: 02-05-2024 Alcohol intake Ex-drinker (finding) [facility] Start: 11-15-2021 End: 04-18-2022 History of Social function [facility] Start: 11-15-2021 End: 04-18-2022 Tobacco use panel [facility] National Score (1-10 0), lower number is lower risk 70 [facility] Start: 05-31-2022 Gender identity Identifies as female gender (finding) [facility] Start: 05-31-2022 Sexual orientation Heterosexual (fin ding) [facility] Start: 08-12-2024 End: 09-11-2024 Sex Female (finding) [facility] Medical Equipment Procedure Code Equipment Code Equipment Origin al Text Equipment Identifier Dates Check blood suga r 4 times daily as intructed. Dx: E11.9. Insulin: yes [id number] Start: 01-17-2018 Comment on above: Check blood sugar 4 times daily as intructed. Dx: E11.9. Insulin: yes Functional Status Date Assessment Result Facility 08-19-2021 Functional status Activity Abili ty With Assist of 2 [facility] Work Phone: Mental Status Date Assessment Result Facility 11-04-2024 Cognitive function Voice/Name [facility] Work Phone: 11-03-2024 Cognitive function Voice/Name [facility] Work Phone: 10-07-2024 Cognitive function Voice/Name [facility] Work Phone: 10-06-2024 Cognitive function Voice/Name [facility] Work Phone: 09-10-2024 Cognitive function Awake;Alert;A ppropriate;Follow s Commands [facility] Work Phone: 09-09-2024 Cognitive function Awake;Alert;A ppropriate;Follow s Commands [facility] Work Phone: 09-08-2024 Cognitive function Awake;Alert;A ppropriate;Follow s Commands [facility] Work Phone: 08-13-2024 Cognitive function Awake;Alert;A ppropriate;Follow s Commands [facility] Work Phone: 08-12-2024 Cognitive function Awake;Alert;A ppropriate;Follow s Commands [facility] Work Phone: 08-11-2024 Cognitive function Awake;Alert;A ppropriate;Follow s Commands [facility] Work Phone: 07-16-2024 Cognitive function Voice/Name [facility] Work Phone: 07-14-2024 Cognitive function Awake;Alert;A ppropriate;Follow s Commands [facility] Work Phone: 06-18-2024 Cognitive function Awake;Alert;A ppropriate;Follow s Commands [facility] Work Phone: 06-17-2024 Cognitive function Voice/Name [facility] Work Phone: 06-16-2024 Cognitive function Awake;Alert;A ppropriate;Follow s Commands [facility] Work Phone: 05-21-2024 Cognitive function Awake;Alert;A ppropriate;Follow s Commands [facility] Work Phone: 04-23-2024 Cognitive function Awake;Alert;A ppropriate;Follow s Commands [facility] Work Phone: 04-22-2024 Cognitive function Awake;Alert;A ppropriate;Follow s Commands [facility] Work Phone: 04-21-2024 Cognitive function Voice/Name [facility] Work Phone: 09-13-2023 Cognitive function Awake;Alert;A ppropriate;Follow s Commands [facility] Work Phone: 09-12-2023 Cognitive function Level Of Cons ciousness Awake;Alert;Appropriate;Follow s Commands [facility] Work Phone: 09-11-2023 Cognitive function Awake;Alert;A ppropriate;Follow s Commands [facility] Work Phone: 09-10-2023 Cognitive function Voice/Name [facility] Work Phone: 09-09-2023 Cognitive function Awake;Alert;A ppropriate;Follow s Commands [facility] Work Phone: 03-01-2022 Cognitive function Level Of Cons ciousness Awake;Alert;Appropriate;Follow s Commands [facility] Work Phone: 08-30-2021 Cognitive function Level Of Cons ciousness Awake;Alert;Appropriate;Follow s Commands [facility] Work Phone: 08-19-2021 Cognitive function Voice/Name [facility] Work Phone: Clinical Notes 11-15-2021 to 02-06-2024 Telephone Encounter - Kellen Duran LPN - 02/06/2024 8:02 AM EDTTelephone Encounter - Kellen Duran LPN - 02/06/2024 8:02 AM Windy Tidwell MD - 02/05/2024 11:24 AM EDT Note Date & Type Note Facility 02-06-2024 Miscellaneous Notes IVIG order was faxed to Madelaine at [facility] at [phone] with confirmation. documented in this encounter [facility] 02-06-2024 Telephone encounter Note IVIG order was faxed to Madelaine at [facility] at [phone] with confirmation. [facility] 02-05-2024 Note HNO ID: [id number] Author: WINDY YUEN MD Service: ? Author Type: Physician Type: Progress Notes Filed: 02/05/2024 11:52 Note Text: Romain is here for follow up; her daughter joins us on the phone for the appointment. She continues on baclofen and lorazepam. She is getting IVIG over 5 days every month at [facility] Had some trouble with the last infusion [...] syndrome Confirmed with qulitative and quantitative testing ([place]man) demonstrating high ab titer som 65 lab [...] that she can receive the treatments at [facility]. She is now s/p 5 monthly cycles [...] 2g/kg IBW) Fax order to Madelaine at [facility] at [phone] RTC 6 months [facility] 02-05-2024 History of Presen t illness Narrative Images from the original note were not included. Romain is here for follow up; her daughter joins us on the phone for the appointment. She continues on baclofen and lorazepam. She is getting IVIG over 5 days every month at [facility] Had some trouble with the last infusion [...] syndrome Confirmed with qulitative and quantitative testing (newman) demonstrating high ab titer som 65 lab [...] that she can receive the treatments at [facility]. She is now s/p 5 monthly cycles [...] 2g/kg IBW) Fax order to Madelaine at [facility] at [phone] RTC 6 months documented in this encounter [facility] 11-24-2023 Telephone encounter Note Patient's appointment changed from 12/17/23 to 02/05/[address] Yuen being out of the office. Appointment details faxed as requested by daughterNyla, so patient will have transportation for appointment. Faxed to [facility] [place]: [phone] Confirmation ok. [facility] 11-24-2023 Miscellaneous Notes Patient's appointment changed from 12/17/23 to 02/05/[address] Yuen being out of the office. Appointment details faxed as requested by daughter, Nyla, so patient will have transportation for appointment. [facility]axed to [facility] [place]: [phone] Confirmation ok. documented in this encounter [facility] 10-29-2023 Telephone encounter Note Faxed appointment change/reminder to [facility] [place]: [phone]. Confirmation ok. Appointment date for 12/17/23 arrive by 11:45am. [facility] 10-29-2023 Miscellaneous Notes Faxed appointment change/reminder to [facility] [place]: [phone]. Confirmation ok. Appointment date for 12/17/23 arrive by 11:45am. documented in this encounter [facility] 10-15-2023 Telephone encounter Note Pt daughter would like to speak to Dr Yuen via phone regarding noted changed in mother since starting her injections with her Insulin levels as well as Muscle Spasms [facility] 10-15-2023 Miscellaneous Notes Pt daughter would like to speak to Dr Yuen via phone regarding noted changed in mother since starting her injections with her Insulin levels as well as Muscle Spasms documented in this encounter [facility] 09-18-2023 Telephone encounter Note Spoke to Madelaine and relayed message from provider, she voiced understanding at this time and will let patient and daughter know. [facility] 09-18-2023 Miscellaneous Notes Spoke to Madelaine and [...] tolerates the medication well. Per Madelaine from [facility], this patient's daughter would like to have her IVIG dose changed to a higher dose for a shorter duration. States this was discussed with Dr. Yuen previously. Please advise if this is correct and if so, please call Madelaine back at [phone]. A new order and authorization will be needed. documented in this encounter [facility] 09-18-2023 Telephone encounter Note We should keep [...] and that she tolerates the medication well. [facility] 09-18-2023 Telephone encounter Note Per Madelaine from [facility], this patient's daughter would like to have her IVIG dose changed to a higher dose for a shorter duration. States this was discussed with Dr. Yune previously. Please advise if this is correct and if so, please call Madelaine back at [phone]. A new order and authorization will be needed. [facility] 08-13-2023 Miscellaneous Notes Faxed office notes, demographic sheet, copy of insurance, we don't have a copy of insurance cards to [phone]. documented in this encounter [facility] 07-31-2023 Note HNO ID: [id number] Author: WINDY YUEN MD Service: ? Author [...] is able to get the IVIG at [facility]. Office notes and IVIG order was faxed to Madelaine at [facility] at [phone] with confirmation. Our office Spoke to Madelaine and she stated that the patient will need documentation showing a failure or inability to tolerate the baclofen, in order to get approved for Gammagard. And needs progress note faxed to their office at [phone]. It seems like there was a misunderstanding; [...] syndrome Confirmed with qulitative and quantitative testing (newman) demonstrating high ab titer som 65 lab [...] that she can receive the treatments at [facility]. Will send off IVIG rx for insurance approval. RTC 3 months [facility] 07-31-2023 History of Presen t illness [...] is able to get the IVIG at [facility]. Office notes and IVIG order was faxed to Madelaine at [facility] at [phone] with confirmation. Our office Spoke to Madelaine and she stated that the patient will need documentation showing a failure or inability to tolerate the baclofen, in order to get approved for Gammagard. And needs progress note faxed to their office at [phone]. It seems like there was a misunderstanding; [...] syndrome Confirmed with qulitative and quantitative testing (newman) demonstrating high ab titer som 65 lab [...] that she can receive the treatments at [facility]. Will send off IVIG rx for insurance approval. RTC 3 months documented in this encounter [facility] 04-30-2023 Note HNO ID: [id number] Author: WINDY YUEN MD Service: ? Author Type: Physician Type: Progress Notes Filed: 05/27/2023 20:46 Note Text: HPI: This is Ms. Romain Mcdermott a 83 year old female from who presents to the [facility] neurology department with a chief complaint of [...] tensing up like ironing board Living at [facility]; [facility] [place]; has been there for past four years. She is happy there. They discontinued her PT. She is currently taking baclofen 15 mg bid Most recent a1c 9.0; tsh wnl PMH: PAST MEDICAL HISTORY PAST MEDICAL HISTORY Diagnosis Date DM type 1 (diabetes mellitus, type 1) ([facility]) Hypothyroidism Medications: CURRENT MEDICATIONS Current Outpatient Medications [...] Range Status 12/24/2021 (more content not included)... [facility] 03-25-2023 Miscellaneous Notes The listed home phone number for the patient is her daughter Nyla's phone. Nyla was notified of the canceled appointment and new appointment. The daughter was instructed that the patient must have someone accompany her to the appointment. The patient resides at the [facility]. Ph. [phone] I called the [facility] and spoke with Mona and the nurse [...] The appointment reminder was faxed to the [facility]. TC to daughter regarding upcoming appointment with Dr. Clemons. 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 Pt will need to be seen by neuromuscular for treatment and care, per . Samira Vieira LPN documented in this encounter [facility] 07-20-2022 Miscellaneous Notes completed a Virtual Visit with patient and facility. CLOSED Called patients daughter Nyla and left to call back office at [phone]. Wanted to check and see how her [...] after 9 am to make arrangements. Nyla [phone] documented in this encounter [facility] 06-12-2022 Miscellaneous Notes Faxed new orders to the [facility] at [phone],transmission ok CLOSED Addended by: LA NENA LALA on: 06/12/2022 01:27 PM Modules accepted: Orders Reviewed the blood sugars. She is having low blood sugars in the morning, and mostly high blood sugars with meals, and especially at bedtime. Please call the group home to let them know of the following [...] Please advise, thanks. documented in this encounter [facility] 06-04-2022 Instructions La Nena Lala MD - 06/04/2022 3:04 PM EST Images from the original note were not included. - Please do blood tests to check TSH, free T4 and A1c, and fax the results to us on [phone] - Please fax the glucose values from the last 2 weeks to us - Do not eat more than 60 g of carbs per meal. documented in this encounter [facility] 06-04-2022 History of Presen t illness Narrative ENDOCRINOLOGY CLINIC NOTE Ms. Mcdermott is a 82 year old female with T1DM and hypothyroidism presented for follow-up of hypothyroidism and diabetes. She presented with her daughter HPI She stays in a group home due to R foot deformity. She saw a senior structural engineer before and was told that she had old changes and no intervention was done. They were hoping to see someone for a second opinion to see if they can help with the foot deformity as this is what is keeping her in the group home. She is still complaining of spasm in [...] diet has not been optimal at the group home. A1c: 11/15/21 11:30 Hemoglobin A1C (POCT) 8.1 ! 9.4% in 08/2021 Current regimen: Levemir 29 units in the morning NovoLog based on a sliding scale 1 unit for every 50 starting at 170 Glucose monitoring: She has received the freestyle jeremiah and is being managed by the nurses at the group home. I did not have the glucose data to make changes today Diet: She eats 3 meals but the options are limited in the group home Complications: Retinopathy: 6 months ago. She has [...] cystoscopy, ureteroscopy; retrograde pyelogram; ureteral stent insertion-Dr. Treu Cantu PROC RM-BRONCHOSCOPY 10/22/2016 Dr. Josselyn Alexander [...] bed. She has been staying in a group home for the last couple of years due [...] an A1c check. She has received the freeNewsCasticyle jeremiah and has been happy with the experience overall Hypothyroidism: We will continue levothyroxine 75 mcg daily. Her TSH was slightly suppressed. We will check her TFTs now Once we get the results and the glucose readings, we will contact them to give the instructions. assisted phone number is [phone] Some of the above has been copied from prior documentation on 11/15/2021 but foster elements reviewed, confirmed, and/or updated by me (La Nena Lala MD) on 06/04/2022 I spent a total of 40 minutes on the date of the service which included preparing to see the patient, vwhr-op-[id number] patient care, completing clinical documentation, obtaining and/or reviewing separately obtained history, and counseling and educating the patient/family/caregiver. Virtual Visit (Audio/Visual)I have discussed the nature of this visit with the patient which will occur via [facility] (Phone, Virtual Visit) and she agrees to proceed with this interaction. La Nena Lala MD documented in this encounter [facility] 04-18-2022 Note HNO ID: [id number] Author: AVELINO Kahn Service: Radiology Author Type: [...] AVELINO Kahn April 18, 2022 3:06 PM [facility] 04-18-2022 History of Presen t illness Narrative [...] DM type 1 (diabetes mellitus, type 1) ([facility]) Hypothyroidism Current Outpatient Medications Medication Sig SENNA-DOCUSATE [...] PRN. Maryan Loving DPM, DABPM, FACFAS Pager: [phone] [facility] [place] [facility] and [facility] locations documented in this encounter [facility] 04-18-2022 History of Presen t illness Narrative [...] 2022 3:06 PM documented in this encounter [facility] 11-15-2021 History of Presen t illness Narrative Patient brought some medical records. Sent to scanning. Images from the original note were not included. ENDOCRINOLOGY CLINIC NOTE Ms. Mcdermott is a 81 year old female with T1DM and hypothyroidism self-referred for management of hypothyroidism and diabetes. She presented with her daughter HPI She stays in a group home due to R foot deformity. She saw a senior structural engineer before and was told that she had old changes and no intervention was done. They were hoping to see someone for a second opinion to see if they can help with the foot deformity as this is what is keeping her in the group home. Hypothyroidism: levothyroxine 75 mcg daily. No recent [...] I reviewed the glucose data from the group home. The values went from September, and no glucose levels were available from October. In September, her glucose levels fluctuated significantly between 65-398 on variable times of day. There is really no pattern regarding the hypo or hyperglycemia Diet: She eats 3 meals but the options are limited in the group home Complications: Retinopathy: 6 months ago. She has [...] T1DM. She has been staying in a group home for the last couple of years due to an acquired right foot deformity. Her diabetes is poorly controlled as evidenced by the A1c level and the reviewed glucose data. This is most likely due to suboptimal regimen, inconsistencies with diet and timing of insulin administration at the group home. We will continue with the same doses [...] only reason why she is in the group home is because of the right foot deformity I spent a total of 60 minutes on the date of the service which included preparing to see the patient, vqew-yv-bqwa patient care, completing clinical documentation, obtaining and/or reviewing separately obtained history, performing a medically appropriate examination, counseling and educating the patient/family/caregiver and ordering medications, tests, or procedures. La Nena Lala MD documented in this encounter [facility] 11-15-2021 Instructions La Nena Lala MD - [...] referred you to orthopedic surgery. Please call [phone] To schedule documented in this encounter [facility] Evaluation note Diagnosis Onset Date SHEKHAR (acute kidney injury) ac shekhar Hyperglycemia due to diabetes mellitus [facility] Work Phone: Evaluation note* Diagnosis Acquired hypothyroidism- Primary Unspecified hypothyroidism Poorly controlled type 1 diabetes mellitus (HCC) Type I (juvenile type) diabetes mellitus without mention of complication, not stated as uncontrolled [facility] Diagnosis Cavovarus deformity of foot, acquired, right- Primary Other osteoporosis without current pathological fracture Hammertoe, bilateral documented [facility] noteNo assessment information availableWAccess Hospital [place] Work Phone: Evaluation note* Diagnosis Poorly controlled type 1 diabetes mellitus (HCC)- Primary Type I (juvenile type) diabetes mellitus without mention of complication, not stated as uncontrolled Acquired hypothyroidism Unspecified hypothyroidism [facility] Diagnosis Controlled type 2 diabetes mellitus without complication, with long-term current use of insulin (HCC) [facility] 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 If you have any further concerns please return for repeat evaluationWAccess Hospital [place] Work Phone: reason for referral (narrative)* Diagnostic Procedure Only (Routine) - Closed Specialty Diagnoses / Procedures Referred By Contac t Referred To Contact XR IMAGING Diagnoses Pain Procedures XR FOOT GENERAL 3V AP/LAT/OBL RIGHT RADEX FOOT COMPLETE MINIMUM 3 VIEWS Maryan Loving DPM [id number] [place] [id number] Xr Imaging [facility] Referral ID Status Reason Start Date Expiration Date V isits Requested Visits Authorized [id number] Closed Auto-Generate d Referral 12/04/2021 01/03/2023 1 1 [facility] for referral (narrative)No reason for referral information availableWAccess Hospital [place] Work Phone: reason for visit Narrative* Diagnostic Procedure Only (Routine) - Closed Specialty Diagnoses / Procedures Referred By Contac t Referred To Contact XR IMAGING Diagnoses Pain Procedures XR FOOT GENERAL 3V AP/LAT/OBL RIGHT RADEX FOOT COMPLETE MINIMUM 3 VIEWS Maryan Loving DPM [address] [place] [id number] Xr Imaging [facility] Referral ID Status Reason Start Date Expiration Date V isits Requested Visits Authorized [id number] Closed Auto-Generate d Referral 12/04/2021 01/03/2023 1 1 [facility] Chief Complaint and Reason for Visit Chief [...] m IVIG November 03, 2024 7:54 am Chief Complaint Admit Date IVIG July 14, [...] m IVIG November 03, 2024 7:54 am IVIG November 04, 2024 7:49 am Family History Relationship Condition Age at Onset Recorded Date/T jane Not Specified Cardiac disease Unknown Malignant neoplasm Unknown Advance Directives Advance Directive Response Recorded Date/ Time Living Will No August 18, 2021 6:10pm Power of Packaging Engineer No August 18 6:10pm Advance Directive Response Recorded Date/ Time Living Will No August 18, 2021 9:27pm Power of Packaging Engineer No August 18 9:27pm Advance Directive Response Recorded Date/ Time Living Will No August 30, 2021 6:13pm Power of Packaging Engineer No August 30 6:13pm Advance Directive Response Recorded Date/ Time Name of Medical Power of Packaging Engineer Nyla Mcnulty April 28, 2022 10:03pm Living Will Yes April 28 10:03pm Power of Packaging Engineer Yes April 28, 2022 10:03pm Advance Directive Response Recorded Date/ Time Living Will Yes April 28 11:03pm Power of Packaging Engineer Yes April 28, 2022 11:03pm Reason for Referral Specialty Diagnoses / Procedures Referred By Contmani t Referred To Contact Orthopedics Diagnoses Acquired hypothyroidism Poorly controlled type 1 diabetes mellitus (HCC) Procedures CONSULT TO ORTHOPAEDICS OFFICE/OUTPATIENT [facility] 60-74 MINUTES La Nena Lala MD [address] [place] [address] Referral ID Status Reason Start Date Expiration Date Visits Requested Visits Authorized [id number] Authorized PCP Requested Referral 11/15/2021 11/15/2022 1 1 Specialty Diagnoses / Procedures Referred By Saurav t Referred To Contact Diagnoses Stiff person syndrome Procedures PROVIDER ORDERED FOLLOW UP OFFICE/OUTPATIENT FOR[facility]LY [facility]1983 MDM 60 MINUTES Windy Yuen MD [address] [facility] [address] [place] [address] Referral ID Status Reason Start Date Expiration Date Visits Requested Visits Authorized [id number] Authorized PCP Requested Referral 10/31/2023 07/30/2024 1 [...] or prosecute any alcohol or drug abuse patient.[facility] the event this information is protected by the Federal Confidentiality of Alcohol and Drug Abuse Patient Records regulations: The Federal rules restrict any use of the information to criminally investigate or prosecute any alcohol or drug abuse patient.[facility] the event this information is protected by the Federal Confidentiality of Alcohol and Drug Abuse Patient Records regulations: The Federal rules restrict any use of the information to criminally investigate or prosecute any alcohol or drug abuse patient.[facility] the event this information is protected by the Federal Confidentiality of Alcohol and Drug Abuse Patient Records regulations: The Federal rules restrict any use of the information to criminally investigate or prosecute any alcohol or drug abuse patient.[facility] the event this information is protected by the Federal Confidentiality of Alcohol and Drug Abuse Patient Records regulations: The Federal rules restrict any use of the information to criminally investigate or prosecute any alcohol or drug abuse patient.[facility] the event this information is protected by the Federal Confidentiality of Alcohol and Drug Abuse Patient Records regulations: The Federal rules restrict any use of the information to criminally investigate or prosecute any alcohol or drug abuse patient.[facility] the event this information is protected by the Federal Confidentiality of Alcohol and Drug Abuse Patient Records regulations: The Federal rules restrict any use of the information to criminally investigate or prosecute any alcohol or drug abuse patient.[facility] the event this information is protected by the Federal Confidentiality of Alcohol and Drug Abuse Patient Records regulations: The Federal rules restrict any use of the information to criminally investigate or prosecute any alcohol or drug abuse patient.[facility] Ohio[facility] the event this information is protected by the Federal Confidentiality of Alcohol and Drug Abuse Patient Records regulations: The Federal rules restrict any use of the information to criminally investigate or prosecute any alcohol or drug abuse patient.[facility] Ohio[facility] the event this information is protected by the Federal Confidentiality of Alcohol and Drug Abuse Patient Records regulations: The Federal rules restrict any use of the information to criminally investigate or prosecute any alcohol or drug abuse patient.[facility] OhioIn the event this information is protected by the Federal Confidentiality of Alcohol and Drug Abuse Patient Records regulations: The Federal rules restrict any use of the information to criminally investigate or prosecute any alcohol or drug abuse patient.[facility] OhioIn the event this information is protected by the Federal Confidentiality of Alcohol and Drug Abuse Patient Records regulations: The Federal rules restrict any use of the information to criminally investigate or prosecute any alcohol or drug abuse patient.[facility] Ohio[facility] the event this information is protected by the Federal Confidentiality of Alcohol and Drug Abuse Patient Records regulations: The Federal rules restrict any use of the information to criminally investigate or prosecute any alcohol or drug abuse patient.[facility] the event this information is protected by the Federal Confidentiality of Alcohol and Drug Abuse Patient Records regulations: The Federal rules restrict any use of the information to criminally investigate or prosecute any alcohol or drug abuse patient.[facility] the event this information is protected by the Federal Confidentiality of Alcohol and Drug Abuse Patient Records regulations: The Federal rules restrict any use of the information to criminally investigate or prosecute any alcohol or drug abuse patient.[facility] Ohio[facility] the event this information is protected by the Federal Confidentiality of Alcohol and Drug Abuse Patient Records regulations: The Federal rules restrict any use of the information to criminally investigate or prosecute any alcohol or drug abuse patient.[facility] Ohio[facility] the event this information is protected by the Federal Confidentiality of Alcohol and Drug Abuse Patient Records regulations: The Federal rules restrict any use of the information to criminally investigate or prosecute any alcohol or drug abuse patient.[facility] Reason for Visit (unrecogniz ed section and [...] Appointment Update F axed to [facility] [place] for 12/17/23 Reason Comments Appointment Update faxed to [facility] [place] for appointment 02/05/24 Reason Comments Follow Up Patient states no ch anges. Reason Comments Orders IVIG INFORMATION SOURCE (unrecogn ized section and content) DATE CREATED AUTHOR 03/15/2022 [facility] DATE CREATED AUTHOR AUTHOR'S ORGANIZ ATION 04/19/2022 [facility] DATE CREATED AUTHOR AUTHOR'S ORGANIZ ATION 02/07/2024 [facility] DATE CREATED AUTHOR AUTHOR'S ORGANIZ ATION 11/01/2024 [facility] Care Teams (unrecognized sec tion and content) [employer] Relationship Specialty Start Date End Date Rg Menchaca MD [address] [facility] [address] [place] [address] PCP - General Family Medicine 04/18/22 [employer] Relationship Specialty Start Date End Date Rg Menchaca MD [address] [facility] [address] [place] [address] PCP - General Family Medicine 04/18/22 [employer] Relationship Specialty Start Date End Date Rg Menchaca MD [address] [facility] [address] [place] [address] PCP - General Family Medicine 04/18/22 [employer] Relationship Specialty Start Date End Date Rg Menchaca MD [address] [facility] [address] [place] [address] PCP - General Family Medicine 04/18/22 [employer] Relationship Specialty Start Date End Date Rg Menchaca MD [address] [facility] [address] [place] [address] PCP - General Family Medicine 04/18/22 [employer] Relationship Specialty Start Date End Date Rg Menchaca MD [address] [facility] [address] [place] [address] PCP - General Family Medicine 04/18/22 [employer] Relationship Specialty Start Date End Date Rg Menchaca MD [address] [facility] [address] [place] [address] PCP - General Family Medicine 04/18/22 Team Status: Active Member Role Status Dates Dr. Rg Menchaca MD Family Provider Active Dr. Rg Menchaca MD Primary Care Provider Active Team Status: Inactive Member Role Status Dates Dr. Rg Menchaca MD Primary Care Provider Active [employer] NORRIS Attending Provider, Referring Provide r Active [employer] Relationship Specialty Start Date End Date Rg Menchaca MD [address] [facility] [address] [place] [address] PCP - General Family Medicine 04/18/22 [employer] Relationship Specialty Start Date End Date Rg Menchaca MD [address] [facility] [address] [place] [address] PCP - General Family Medicine 04/18/22 [employer] Relationship Specialty Start Date End Date Rg Menchaca MD [address] [facility] [address] [place] [address] PCP - General Family Medicine 04/18/22 [employer] Relationship Specialty Start Date End Date Rg Menchaca MD [address] [facility] [address] [place] [address] PCP - General Family Medicine 04/18/22 Team Status: Active Member Role Status Dates Dr. Rg Menchaca MD Primary Care Provider Active Team Status: Inactive Member Role Status Dates Dr. gR Menchaca MD Primary Care Provider Active Start: [...] 22, 2024 End: April 22, 2024 Dr. Wnidy Yuen MD Attending Provider Active Start: April [...] Inactive Member Role Status Dates Dr. Rg Mnechaca MD Primary Care Provider Active Start: August [...] November 03, 2024 End: November 03, 2024 Team Status: Inactive Member Role Status Dates Dr. Rg Menchaca MD Primary Care Provider Active Start: November 04, 2024 End: November 04, 2024 Dr. Windy Yuen MD Attending Provider Active Start: November 04, 2024 End: November 04, 2024 Dr. Windy Yuen MD Referring Provider Active Start: November 04, 2024 End: November 04, 2024 FOR RECORDS PERTAINING TO PATIENTS WHO [...] BE BASED ON THE PRIMARY CLINICAL RECORDS. [employer] provides no warranty or guarantee of the accuracy or completeness of information in this document.
[2024-11-05] MEDS: 0.9% NaCl Peripheral Flush Adult IV (08:31)
[2024-11-05] MEDS: Immune Globulin 20 gm 20 GM/200 ML VIAL IV (08:44)
[2024-11-05] MEDS: Immune Globulin 10 gm 10 GM/100 ML VIAL IV (11:12)
[2024-11-05] MEDS: Immune Globulin 5 GM 5 GM/50 ML VIAL IV (11:56)
== END 2024-11-05 23:59 | disposition home or self-care (01) ==
LOC: MEDOUTP 08:09
PROVIDERS: PCP Family Medicine; Referring Provider Psychiatry & Neurology Neurology; Visit Provider Psychiatry & Neurology Neurology
DX: G25.82 Stiff-man syndrome (principal)
CPT/HCPCS: 96365; 96366; 96375; A4216; J1568

== ENCOUNTER 2024-12-01 07:58 | Outpatient (CLI) | payer MEDICARE, MEDICAID, SELFPAY ==
[2024-12-01 08:09] VITALS: BP 90/75; PULSE 78; RESP 16; TEMP 35.9; O2SAT 95; BMI 24.3
[2024-12-01] MEDS: 0.9% NaCl Peripheral Flush Adult IV ×2 (08:12→13:05)
[2024-12-01] MEDS: 0.9% NaCl IVPB Med Flush (100mL) 15 ML IV (08:20)
[2024-12-01] MEDS: DiphenhydrAMINE 50 MG/ML Syringe 25 MG IV (08:31)
[2024-12-01] MEDS: Immune Globulin 20 gm 20 GM/200 ML VIAL IV (08:51)
[2024-12-01] MEDS: Immune Globulin 10 gm 10 GM/100 ML VIAL IV (11:49)
[2024-12-01] MEDS: Immune Globulin 5 GM 5 GM/50 ML VIAL IV (12:41)
== END 2024-12-01 23:59 | disposition home or self-care (01) ==
LOC: MEDOUTP 08:00
PROVIDERS: PCP Family Medicine; Referring Provider Psychiatry & Neurology Neurology; Visit Provider Psychiatry & Neurology Neurology
DX: G25.82 Stiff-man syndrome (principal)
CPT/HCPCS: 96365; 96366; 96375; A4216; J1568

== ENCOUNTER 2024-12-02 07:57 | Outpatient (CLI) | payer MEDICARE, MEDICAID, SELFPAY ==
[2024-12-02 08:08] VITALS: BP 110/67; PULSE 82; RESP 16; TEMP 35.8; O2SAT 96; BMI 24.3
[2024-12-02] MEDS: DiphenhydrAMINE 50 MG/ML Syringe 25 MG IV (08:18)
[2024-12-02] MEDS: 0.9% NaCl IVPB Med Flush (100mL) 15 ML IV (08:20)
[2024-12-02] MEDS: Immune Globulin 20 gm 20 GM/200 ML VIAL IV (09:00)
[2024-12-02] MEDS: Immune Globulin 10 gm 10 GM/100 ML VIAL IV (11:38)
[2024-12-02] MEDS: Immune Globulin 5 GM 5 GM/50 ML VIAL IV (12:25)
== END 2024-12-02 23:59 | disposition home or self-care (01) ==
LOC: MEDOUTP 07:57
PROVIDERS: PCP Family Medicine; Referring Provider Psychiatry & Neurology Neurology; Visit Provider Psychiatry & Neurology Neurology
DX: G25.82 Stiff-man syndrome (principal)
CPT/HCPCS: 96365; 96366; 96375; A4216; J1568

== ENCOUNTER 2024-12-03 08:01 | Outpatient (CLI) | payer MEDICARE, MEDICAID, SELFPAY ==
[2024-12-03] MEDS: 0.9% NaCl Peripheral Flush Adult IV (08:32)
[2024-12-03] MEDS: 0.9% NaCl IVPB Med Flush (100mL) 15 ML IV (08:32)
[2024-12-03] MEDS: DiphenhydrAMINE 50 MG/ML Syringe 25 MG IV (08:33)
[2024-12-03 08:37] VITALS: BP 94/66; PULSE 67; RESP 16; TEMP 35.7; O2SAT 97
[2024-12-03] MEDS: Immune Globulin 20 gm 20 GM/200 ML VIAL IV (08:50)
--- OUTSIDE RECORDS SUMMARY | 2024-12-03 08:58 | XMS RPT_ITS | CCD ---
Author Organization [facility] Care Team Providers Care Cso Name Role Phone Dr. Rg Menchaca Primary Care Provider MD Saul Cruz Emergency Provider Dr. Sean Godwin Admit Provider Dr. Elise Sanchez Attending Provider Dr. Elise Sanchez Other Provider Unavailable Primary Care Provider Unavailabl e Doyle ANDRADE, Rg Barrow Primary Care Provider PROVIDER, UNKNOWN Referring Unavailable PROVIDER, UNKNOWN Referring Unavailable Doyle ANDRADE, Rg Norris Primary Care Provider Doyle ANDRADE, Rg Norris Primary Care Provider Doyle ANDRADE, Rg Norris Primary Care Provider Doyle ANDRADE, Dr. Diez Primary Care Provider [phone] Tripp ANDRADE, Dr. Norris Attending Provider Tripp ANDRADE, Dr. Norris Referring Provider Doyle ANDRADE, Dr. Diez Primary Care Provider [phone] Tripp ANDRADE, Dr. Norris Attending Provider Tripp ANDRADE, Dr. Norris Referring Provider Doyle ANDRADE, Dr. Diez Primary Care Provider Tripp ANDRADE, Dr. Norris Attending Provider Tripp ANDRADE, Dr. Norris Referring Provider Doyle ANDRADE, Dr. Diez Primary Care Provider [phone] Tripp ANDRADE, Dr. Norris Attending Provider Dr. Windy Yuen MD Referring Provider [phone] Rg Menchaca MD Primary Care Provider [phone] Spolter, Windy Attending Unavailable Menchaca, Rg Primary [...] Primary Care Unavailable Spolter, Windy Referring Unavailable Menchaca, Rg Primary Care Unavailable Spolter, Windy Attending Unavailable Spolter, Windy Referring Unavailable Spolter, Windy Attending Unavailable Menchaca, Rg Primary Care Unavailable SPOLTER, WINDY S Attending Unavailable MENCHACA, RG R Primary Care Unavailable SPOLTER, WINDY S Attending Unavailable MENCHACA, RG R Primary Care Unavailable Menchaca , Dr. Diez Primary Care Provider [phone] Tripp ANDRADE, Dr. Norris Attending Provider [phone] Tripp ANDRADE, Dr. Norris Referring Provider Medications Current Medications Medication Drug [...] TIMES A DAY November 27, 2018 12:00am spasms Start: 11-27-2018 take 15 mg by mouth three times daily Baclofen Active 15 MG PO THREE TIMES A DAY November 27, 2018 12:00am Comment on above: Take 15 mg by mouth three times daily. Blood-Glucose Meter (RELION PRIME METER) [facility] [place] (18 sources) Start: 01-17-2018 Blood-Glucose Meter (RELION PRIME METER) [facility] [place] Indications: Type 2 diabetes mellitus with complication, with long-term current use of insulin (HCC) 1 Each four times daily. Dx: E11.9. Insulin: yes 1 Each 01/17/2018 Active Start: 01-17-2018 Blood-Glucose Meter (RELION PRIME METER) [facility] [place] Indications: Type 2 diabetes mellitus with complication, with long-term current use of insulin (HCC) 1 Each four times daily. Dx: E11.9. Insulin: yes 1 Each 0 01/17/2018 Active Comment on above: 1 Each four times da sina. Dx: E11.9. Insulin: yes COMPOUNDED PRESCRIPTION (18 sources) Start: 03-05-2018 COMPOUNDED PRESCRIPTION 1 Wheelchair with removable foot rests. ICD 10: R53.1, M79.671, M21.6X1 1 Each 03/05/2018 Active Start: 03-05-2018 COMPOUNDED PRE SCRIPTION 1 Wheelchair with removable foot rests. ICD 10: R53.1, M79.671, M21.6X1 1 Each 0 03/05/2018 Active Comment on above: 1 Wheelchair with re movable foot rests. ICD 10: R53.1, M79.671, M21.6X1 FREESTYLE JEREMIAH 2 SENSOR kit (11 sources) Start: 04-24-2023 FREESTYLE JEREMIAH 2 SENSOR [...] Inject intramuscularly. glucose 0.4 mg/mg oral gel (17 sources) Start: 024 Dextrose (Glutose-15) 40 % gel Active 15 g PO Q15M as needed for hypoglycemia September 09, 2023 12:00am until symptoms of low blood sugar are controlled immune globulin (human) (IgG) 35 g in empty bag Total Volume 350 mL (GAMMAGARD) (5 sources) Start: 025 inject 350 mL intravenously every twenty-four hours [...] acetaminophen 650 mg PO. 1050 mL 5 11/11/2024 Active Start: 02-05-2024 End: 11-11-2024 inject 350 mL intravenously every twenty-four hours [...] 650 mg PO. 1050 mL 5 02/05/2024 11/11/2024 Discontinued Start: 02-05-2024 inject 350 mL intrav enously every twenty-four hours immune globulin (human) (IgG) [...] mg PO and acetaminophen [address] [place]. [address] mL 11 02/05/2024 02/05/2024 Discontinued 3 ml insulin aspart, human 100 unt/ml pen injector (20 sources) Insulin Analog Start: 08-18-2021 Insulin Aspart U-100 (Novolog Flexpen U-100 Insulin) 100 unit/mL (3 mL) Insulin Pen Active 0 sliding scale dose SC BEFORE MEALS AND AT BEDTIME August 18, 2021 12:00am diabetes Please contact the information source for Protocol details. Start: 04-21-2018 End: 04-22-2018 Insulin Aspart U-100 (Novolo g Flexpen (Bkc)) 100 UNITS/ML Flexpen Discontinued 0 U SC 3 TIMES DAILY WITH MEALS April 21, 2018 1:00am April 22, 2018 5:06pm Please contact the information source for Protocol details. Start: 01-07-2018 End: 06-12-2022 insulin aspart U-100 (NOVOLO G FLEXPEN U-100 INSULIN) 100 unit/mL (3 mL) Indications: Controlled type 2 diabetes mellitus without complication, with long-term current use of insulin (HCC) Sliding scale 151-200, give 1 unit 201-250, give 2 units 251-300, give 3 units 301-350, give 4 units > 350, give 5 units and call provider 5 Each 3 06/12/2022 Active Comment on above: 1 unit for 15 g of c arbs with meals. Sliding scale 151-200, give 1 unit 201-250, give 2 units 251-300, give 3 units 301-350, give 4 units > 350, give 5 units and call provider 3 ml insulin detemir 100 unt/ml pen injector (20 sources) Insulin Analog Start: 04-21-2018 insulin detemir U-100 (LEVEMIR FLEXTOUCH U-100 INSULIN) 100 unit/mL (3 mL) injection pen Indications: Controlled type 2 diabetes mellitus without complication, with long-term current use of insulin (HCC) Inject 27 Units subcutaneously every morning. 5 Each 2 06/12/2022 Active Start: 04-21-2018 insulin detemi r U-100 (LEVEMIR) 100 unit/mL (3 mL) injection pen Insulin Detemir U-100 (Levemir Flextouch U-100 Insuln) 100 UNITS/ML insulin pen Active 29 UNITS SC DAILY April 21, 2018 12:38pm 04/21/2018 Active Start: 04-21-2018 Insulin Detemi r U-100 [...] Flextouch U100 Insulin) 100 UNITS/ML insulin pen (7 sources) Start: 04-21-2018 Insulin Detemir U-100 (Levemir Flextouch U100 Insulin) 100 UNITS/ML insulin pen Active 22 U SC .qa April 21, 2018 1:00am Start: 04-21-2018 Insulin Detemi r U-100 (Levemir Flextouch U100 Insulin) 100 UNITS/ML insulin pen Active 28 UNITS SC .qa April 21, 2018 1:00am 3 ml insulin glargine 100 unt/ml pen injector (1 source) Insulin Analog Start: 10-28-2024 LANTUS SOLOSTA R U-100 INSULIN 100 unit/mL (3 mL) 10/28/2024 Active levothyroxine sodium 0.075 mg oral tablet (20 [...] 2021 8:20pm loratadine 10 mg oral tablet (5 sources) Start: 5 take 1 tablet by [...] 0.25 mg by mout h once daily in the morning LORazepam (ATIVAN) 0.5 mg Take 0.25 mg by mouth every morning. 11/06/2021 Active Start: 11-27-2018 End: 11-29-2018 take 1 tablet by mouth once daily Lorazepam 1 MG tablet Discontinued 1 mg PO DAILY November 27, 2018 12:00am November 29, 2018 11:28am anxiety Comment on above: Take 0.25 mg by mout h every morning. Magnesium Hydroxide (17 sources) Start: 4 take 1 mL by [...] 2023 12:00am mineral oil 1000 mg/ml enema (15 sources) Start: 09-09-2023 Mineral Oil (F leet Mineral Oil) enema Active 118 mL RC DAILY as needed for constipation September 09, 2023 12:00am discard any unused portion Start: 09-09-2023 Mineral Oil (F leet Mineral Oil) enema Active 118 ML RC DAILY September 09, 2023 12:00am discard any unused portion Mineral Oil (Fleet Mineral Oil) enema (2 sources) Start: 09-09-2023 Mineral Oil (F leet [...] DAY as needed for nausea and vomiting 21 0 April 29, 2022 5:04am September 09, 2023 [...] fo r nausea/vomiting. Senna Plus (senna-docusate ) (18 sources) Start: 04-28-20 take 8.6-50 mg by mouth every twelve hours as needed for constipation Senna Plus (senna-docusate) Active 8.6 - 50 mg PO EVERY 12 HOURS NEEDED as needed for constipation April 28, 2022 1:00am Start: 04-28-2022 take 8.6-50 mg by mo [facility] once daily Senna Plus (senna-docusate) Active 8.6 - 50 mg PO.IVFORM DAILY April 28, 2022 1:00am Start: 04-28-2022 take 8.6-50 mg by [facility] once daily Senna Plus (senna-docusate) Active 8.6 - 50 MG PO.IVFORM DAILY April 28, 2022 1:00am Start: 04-28-2022 take 8.6-50 mg by [facility] once daily Senna Plus (senna-docusate) Active 8.6 - 50 MG PO.IVFORM DAILY April 28, 2022 12:00am SENNA-DOCUSATE SODIUM ORAL (16 sources) SENNA-DOCUSATE S ODIUM ORAL Take by [...] Comment on above: Take 1 tablet by [facility] once daily. bisacodyl 10 mg rectal [...] DULoxetine 60 mg delayed release oral capsule (20 sources) Serotonin and Norepinephrine Reuptake Inhibitor Start: End: take 1 capsule by mouth once daily Duloxetine 60 MG capsule Discontinued 60 mg PO DAILY 0 April 25, 2018 1:00am November 27, 2018 [...] ml insulin lispro 100 unt/ml pen injector (20 sources) Insulin Analog Start: 11-27-2018 End: 11-29-2018 [...] 02-17-2018 Chronic Joint disorders and dislocations; trauma-related (20 sources) Subluxation of ankle joint; Translations: [Subluxation of right ankle joint, initial encounter] 11-28-2018 Episodic Malaise and fatigue (20 sources) Asthenia; Translations: [Other malaise] 11-28-2018 Episodic Nausea and vomiting (20 sources) Vomiting; Translations: [Vomiting, unspecified] 05-07-2022 Episodic Osteoporosis (1 source) Osteoporosis; Translations: [Other osteoporosis without current pathological fracture] Chronic Other acquired deformities (18 sources) Contracture of right hip joint; Translations: [Contracture, right hip] Onset: 01-13-2018 01-13-2018 Chronic Other acquired deformities (18 sources) Contracture of left hip joint; Translations: [Contracture, left hip] Onset: 01-13-2018 01-13-2018 Chronic Other circulatory disease (19 sources) Low blood pressure; Translations: [Hypotension, unspecified] 09-07-2021 Episodic Other connective tissue disease (20 sources) Cramp in lower limb; Translations: [Cramp and spasm] 11-28-2018 Episodic Other hereditary and degenerative nervous system conditions (20 sources) Stiff-man syndrome; 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 Other hereditary and degenerative nervous system conditions (2 sources) Stiff-man syndrome; 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] Onset: 11-11-2024 Chronic Residual codes; unclassified (1 source) Pain, unspecified; Translations: [Pain] Onset: 04-18-2022 Episodic Residual codes; unclassified (1 source) Pain; Translations: [Pain, unspecified] 04-18-2022 Episodic Spondylosis; intervertebral disc disorders; other back problems (20 sources) Chronic back pain ; Translations: [Dorsalgia, unspecified] 11-28-2018 Episodic Thyroid disorders (20 sources) Hypothyroidism; Translations: [Hypothyroidism, unspecified] Onset: 01-07-2018 Chronic Past or Other Problems Problem Classification Problem Date Documented Da te Episodic/Chronic Other connective tissue disease (18 sources) Pain in right foot; Translations: [Pain in right foot] Onset: 01-13-2018 01-13-2018 Episodic Other non-traumatic joint disorders (20 sources) Hip pain; Translations: [Pain in left hip] Onset: 01-13-2018 01-13-2018 Episodic Other non-traumatic joint disorders (16 sources) Pain in right hip joint; Translations: [Pain in right hip] Onset: 01-13-2018 01-13-2018 Episodic Results Test Name Value Interpretation Reference Range Facility [facility] 11-11-2024 CNOV Office Visit (NNSTFM ) ROMAIN MCDERMOTT ([id number]) 1940 F Date Time Provider Department 11/11/24 12:00 PM WINDY YUEN [facility] During your visit today, we recorded the following information about you: Pulse Blood pressure 74/minute 108/67 Windy Yuen MD 11/11/2024 1:14 PM Signed Romain is here for follow up Romain Mcdermott is an 84-year-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 Romain reports significant improvement in stiffness and pain since starting IVIG therapy. She is now able to sit up straighter in a chair and does not endorse muscle spasms or pain. She is unable to walk due to her foot being positioned sideways, though she notes it is straightening out slightly. She mentions that a outdoor emergency care technician advised against surgery due to her age. Romain is currently receiving IVIG therapy at [facility], which began with five days per week and has decreased to three days per week over the past 15 months. She tolerates the treatments well without reactions or problems. She reports that the therapy causes her blood sugar to drop, noting episodes of hypoglycemia (blood sugar of 78 mg/dL) during treatment and four times nightly. Romain is not currently participating in physical therapy but engages in home exercises, including lifting five-pound weights with 20 repetitions per arm. She takes Ativan 0.5 mg and Baclofen in the morning, afternoon, and at night. She mentions a family history of neurological issues, including her brother, who was previously diagnosed with Parkinson's disease but is now reportedly undiagnosed. She wonders if he may have the same condition as she does. BP 108/67 Pulse 74 SpO2 96% MSE: Alert and oriented to person, place, [...] 5 5 3 4 4 5 5 Left 5 5 5 5 5 3 4 4 5 5 Assessment/Plan : Hx, exam, and testing most c/w stiff person syndrome Confirmed with qulitative and quantitative testing ([place]) demonstrating high ab titer som 65 lab [...] baclofen of lorazepam treatment as noted above. She is now s/p 15 monthly cycles of IVIG: She has experienced remarkable improvement of her symptoms since initiating IVIG treatments: She has not been having spasms anymore She is able to sit in her chair now She had made some improvements with PT, reports that she quit PT recently. Orgininally IVIG was given over 5 days; last visit consolidated treatments to 3 consecutive days, same total dose 2g/kg IBW) divided over three days. Will plan to consolidate treatment to 0.66 g/kg daily over three days (same total dose of 2g/kg IBW) Fax order to Madelaine at [facility] at [phone] RT 6 months Windy Yuen MD 11/11/2024 12:38 PM Signed - Continue your IVIG infusions at [facility] as before, with three consecutive treatment days per cycle; infusion orders have been sent to your center. - Continue taking Ativan 0.5 mg once daily and Baclofen 15 mg three times a day (morning, afternoon, and evening) exactly as you have been. - Your next follow-up appointment is scheduled in about six months, toward the end of the year. Please call my office at [phone] if you need help coordinating your care. Allergies As of Date: 11/11/2024 (No Known Allergies) Date Reviewed: 11/11/2024 Reviewed by: Kellen Duran LPN - Fully Assessed Visit Diagnosis:Stiff person syndrome [G25.82] Order(s):immune globulin (human) (IgG) 35 g in empty bag Total Volume 350 mL (GAMMAGARD)Inject 350 mL intravenously every 24 hours. For three consecutive days. Repeat infusion cycle every month for a total of 6 months (6 total infusion cycles). Premedicate with diphenhydramine 25 mg PO and acetaminophen 650 mg PO.Disp: 1050 mLRfl: 5 PROVIDER ORDERED FOLLOW UP [[id number]] Order #: [id number]: 1 FUTURE Prescriptions as of 11/11/2024 - LANTUS SOLOSTAR U-100 INSULIN 100 unit/mL (3 mL) - immune globulin (human) (IgG) 35 g in empty bag Total Volume 350 mL (GAMMAGARD) Inject 350 mL intrave (more content not included)... Normal [facility] 02-06-2024 [facility] Telephone ([facility]) ROMAIN MCDERMOTT ([id number]) 1940 F Date Time Provider Department 02/06/24 WINDY YUEN [facility] During your visit today, we recorded the following information about you: Kellen Duran LPN 02/06/2024 8:05 AM Signed IVIG order was faxed to Madelaine at [facility] at [phone] with confirmation. Kellen Duran LPN 02/12/2024 2:00 PM Signed [facility] needed clarification to the IVIG order that was previously sent, completed by Dr. Yuen and re-faxed to them at [phone] with confirmation. Allergies As of Date: 02/06/2024 (No Known Allergies) Date Reviewed: 02/05/2024 Reviewed by: Shira Hager LPN - Fully Assessed Reason for Visit: Orders [681] Cmt: IVIG Prescriptions as of 02/12/2024 - immune globulin (human) (IgG) 35 g [...] Status:Closed by KELLEN DURAN on 02/06/24 [facility] CNOVon 02-05-2024 CNOV Office Visit ([facility]STFM ) ASTERROMAIN ([id number]) 1940 F Date Time Provider Department 02/05/24 11:30 AM WINDY YUEN [facility] During your visit today, we recorded the following information about you: Pulse Blood pressure 81/minute 116/68 Windy Yuen MD 02/05/2024 11:52 AM Nadege Flynn is here for follow up; her daughter joins us on the phone for the appointment. She continues on baclofen and lorazepam. She is getting IVIG over [address] [facility] Had some trouble with the last [...] syndrome Confirmed with qulitative and quantitative testing ([place]) demonstrating high ab titer som 65 lab [...] that she can receive the treatments at [facility]. She is now s/p 5 monthly [...] 2g/kg IBW) Fax order to Madelaine at [facility] at [phone] RTC 6 months Allergies As of Date: [...] 2018 12:38pm (more content not included)... [facility] Telephone ([facility]) ROMAIN MCDERMOTT ([id number]) 1940 F Date Time Provider Department 11/24/23 WINDY YUEN [facility] During your visit today, we recorded the following information about you: Naif Oates 11/24/2023 3:16 PM Signed Patient's appointment changed from 12/17/23 to 02/05/[address] Yuen being out of the office. Appointment details faxed as requested by daughter, Nyla, so patient will have transportation for appointment. Faxed to [facility]: [phone] Confirmation ok. Allergies As of Date: 11/24/2023 (No Known Allergies) Date Reviewed: 07/31/2023 Reviewed by: Shruthi Soliz LPN - Fully Assessed Reason for Visit: Appointment [186] Cmt: Update faxed to [facility] for appointment 02/05/24 Prescriptions as of 11/24/2023 [...] Encounter Status:Closed by NAIF OATES on 11/24/23 Normal [facility] Glucose Glucometer (BldC) [M ass/Vol]on 04-29-2022 Glucose [Mass/Vol] 94 mg/dL 74-106 [facility] Work Phone: Comment on above: MANAGEMENT OF PATIEN T CARE PER NURSING PROTOCOL Absolute lymphocyte counton 04-28-2022 Lymphocytes Auto (Unsp spec) [#/Vol] 2.37 10*3/uL 0.83-4.51 [facility] Work Phone: Basophil percentageon 2021 Basophils/100 WBC (Bld) 0.3 % 0-1 [facility] Work Phone: Chloride [Moles/Vol] 102 mmol/L 98-107 [facility] Work Phone: Eosinophils/100 WBC (Bld) 0.1 % 0-5 [facility] Work Phone: Glucose [Mass/Vol] 112 mg/dL 74-106 [facility] Work Phone: Comment on above: Fasting Glucose resu lt from 100 to 125 mg/dL suggests IMPAIRED HOMEOSTASIS per A.D.A. criteria. Neutrophils (Bld) [#/Vol] 8.6 10*3/uL 2.0-7.7 [facility] Work Phone: Neutrophils/100 WBC (Bld) 74.7 % 47-70 [facility] Work Phone: Potassium [Moles/Vol] 5.4 mmol/L 3.5-5.1 [facility] Work Phone: Sodium [Moles/Vol] 137 mmol/L 136-145 [facility] Work Phone: WBC (Bld) [#/Vol] 11.5 10*3/uL 4.4-11.0 [facility] Work Phone: Blood erythrocytes count (nu mber/volume)on 04-28-2022 RBC (Bld) [#/Vol] 4.65 10*6/uL 4.2-5.4 [facility] Work Phone: Blood hemoglobin measurement (mass/volume)on 04-28-2022 Hemoglobin (Bld) [Mass/Vol] 13.2 g/dL 12.0-15.0 [facility] Work Phone: Blood lymphocytes/100 leukoc yteson 04-28-2022 Lymphocytes/100 WBC (Bld) 20.6 % 19-41 [facility] Work Phone: Blood monocytes/100 leukocyt eson 04-28-2022 Monocytes/100 WBC (Bld) 3.0 % 0-10 [facility] Work Phone: Blood platelet mean volumeon 04-28-2022 Platelet mean volume (Bld) [Entitic vol] 9.7 fL 6.2-12.0 [facility] Work Phone: Determination of erythrocyte mean corpuscular volume (MCV)on 04-28-2022 MCV (RBC) [Entitic vol] 88.8 fL 81-99 [facility] Work Phone: Hematocrit Auto (Bld) [Volum e fraction]on 04-28-2022 Hematocrit (Bld) [Volume fraction] 41.3 % 37-47 [facility] Work Phone: Laboratory - Chemistry and C hemistry - challengeon 04-28-2022 CO2 [Moles/Vol] 31.0 mmol/L 21.0-32.0 [facility] Work Phone: Magnesium [Mass/Vol] 2.0 mg/dL 1.6-2.6 [facility] Work Phone: Urea nitrogen/Creatinine [Mass ratio] 33.5 mg/mg 10-20 [facility] Work Phone: Laboratory - Hematology and Cell countson 04-28-2022 Erythrocyte distribution width (RBC) [Entitic vol] 44.3 fL 35.1-43.9 [facility] Work Phone: Erythrocyte distribution width (RBC) [Ratio] 13.6 % 11.6-14.6 [facility] Work Phone: Immature granulocytes/100 WBC (Bld) 1.300 % 0.0-0.9 [facility] Work Phone: Comment on above: IG% - Immature Granu locytes (promyelocytes, myelocytes and metamyelocytes) > 1% indicates that a LEFT SHIFT is Present. MCH (RBC) [Entitic mass] 28.4 pg 27.0-32.0 [facility] Work Phone: Nucleated RBC/100 WBC (Bld) [Ratio] 0 % 0-5 [facility] Work Phone: MCHC Auto (RBC) [Mass/Vol]on 04-28-2022 MCHC (RBC) [Mass/Vol] 32.0 g/dL 32-36 [facility] Work Phone: No Panel Informationon 04-28 Estimated Creatinine Clearance Calc 37.12 ml/min [facility] Work Phone: Estimated GFR (MDRD) Amer 118 mL/min >60 [facility] Work Phone: Comment on above: GFR Calc Estimated GFR (MDRD) Non-Af Amer 97 mL/min >60 [facility] Work Phone: Comment on above: Non- GFR Calc Platelets bldon 04-28-2022 Platelets (Bld) [#/Vol] 251 10*3/uL 150-450 [facility] Work Phone: Serum or plasma calcium roger urement (mass/volume)on 04-28-2022 Calcium [Mass/Vol] 9.3 mg/dL 8.5-10.1 [facility] Work Phone: Serum or plasma creatinine m easurement (mass/volume)on 04-28-2022 Creatinine [Mass/Vol] 0.63 mg/dL 0.55-1.02 [facility] Work Phone: Comment on above: The validity of the calculated GFR & GFRAA in patients over 70 years has not been determined. Clinical correlation is essential. Serum or plasma urea nitroge n measurement (mass/volume)on 04-28-2022 Urea nitrogen [Mass/Vol] 21 mg/dL 7-18 [facility] Work Phone: Thin prep Papanicolaou smear with manual screeningon 04-28-2022 Thin prep Papanicolaou smear with manual screening 4 5-15 [facility] Work Phone: XR Foot - right AP and Later al and obliqueon 04-19-2022 IMPRESSION: Unchanged deformity of the right foot, no acute bony process is identified. Rn Psych: YOBANY Transcribe Date/Time: Apr 19 2022 7:25A Dictated by : LESA MCLAUGHLIN MD This examination was interpreted and the report reviewed and electronically signed by: LESA MCLAUGHLIN MD on Apr 19 2022 7:27AM [facility] * * *Final Report* * * DATE OF EXAM: Apr 18 2022 3:07PM JOSE ALBERTO [id number] - XR FOOT 3V AP/LAT/OBL RT / PROCEDURE REASON: [id number] * * * * Physician Interpretation * * * * HISTORY: RIGHT FOOT PAIN. Pain . TECHNIQUE: XR FOOT 3V AP/LAT/OBL RT Laterality: RIGHT Number of different views (projections): 3 COMPARISON: February 2018 RESULT: Equinovarus deformity again identified. Bones are osteoporotic unchanged. No fracture. Joint spaces are grossly maintained. [facility] Provider, Susanne Patel [facility] - 04/19/2022 * * *Final Report* * * DATE OF EXAM: Apr 18 2022 3:07PM JOSE ALBERTO [id number] - XR FOOT 3V AP/LAT/OBL RT / PROCEDURE REASON: [id number] * * * * Physician Interpretation * * * * HISTORY: RIGHT FOOT PAIN. Pain . TECHNIQUE: XR FOOT 3V AP/LAT/OBL RT Laterality: RIGHT Number of different views (projections): 3 COMPARISON: February 2018 RESULT: Equinovarus deformity again identified. Bones are osteoporotic unchanged. No fracture. Joint spaces are grossly maintained. IMPRESSION IMPRESSION: Unchanged deformity of the right foot, no acute bony process is identified. Rn Psych: PSCB Transcribe Date/Time: Apr 19 2022 7:25A Dictated by : LESA MCLAUGHLIN MD This examination was interpreted and the report reviewed and electronically signed by: LESA MCLAUGHLIN MD on Apr 19 2022 7:27AM [facility] XR Foot - right AP and Later al and obliqueOrdered By: Ccf Provider on 04-19-2022 [facility] XR FOOT 3V AP/LAT/OBL RTon 1 06-18-2021 XR FOOT 3V AP/LAT/OBL RT * * *Final Report* * * DATE OF EXAM: Apr 18 2022 3:07PM MDPrashant [id number] - XR FOOT 3V AP/LAT/OBL RT / PROCEDURE REASON: [id number] * * * * Physician Interpretation * * * * HISTORY: RIGHT FOOT PAIN. Pain . TECHNIQUE: XR FOOT 3V AP/LAT/OBL RT Laterality: RIGHT Number of different views (projections): 3 COMPARISON: February 2018 RESULT: Equinovarus deformity again identified. Bones are osteoporotic unchanged. No fracture. Joint spaces are grossly maintained. IMPRESSION: Unchanged deformity of the right foot, no acute bony process is identified. Rn Psych: PSCB Transcribe Date/Time: Apr 19 2022 7:25A Dictated by : LESA MCLAUGHLIN MD This examination was interpreted and the report reviewed and electronically signed by: LESA MCLAUGHLIN MD on Apr 19 2022 7:27AM EST [id number] N [facility] XR Foot - right AP and Later al and obliqueon 04-18-2022 Radiology Study observation (narrative) [facility] URINE CULTURE,BACTERIALon URINE CULTURE,BACTERIAL PATIENT: ROMAIN MCDERMOTT [place] [facility] [id number] : 44 AGE: SEX: F ORDERED BY: RG MENCHACA SOURCE: URINE COLLECTED: 03/12/22 13:05 ANTIBIOTICS AT [place].: RECEIVED : 03/13/22 23:52 SITE: Clean Catch/Voided R E S U L T S URINE CULTURE,BACTERIAL FINAL 03/14/22 18:39 MULTIPLE ORGANISMS PRESENT, PROBABLE CONTAMINATION PLEASE REPEAT CULTURE. Normal [facility] Comment on above: Performed By: #### U RINC #### [facility] [address] [place] [address] URINE CULTURE,BACTERIALon URINE CULTURE,BACTERIAL PATIENT: ROMAIN MCDERMOTT [place] [facility] [place] [id number] : 44 AGE: SEX: F ORDERED BY: RG MENCHACA SOURCE: URINE COLLECTED: 03/08/22 05:42 ANTIBIOTICS AT [place].: RECEIVED : 03/08/22 20:26 SITE: Unspecified R E S U L T S URINE CULTURE,BACTERIAL FINAL 03/09/22 12:43 MULTIPLE ORGANISMS PRESENT, PROBABLE CONTAMINATION PLEASE REPEAT CULTURE. Normal [facility] Comment on above: Performed By: #### U RINC #### [facility] [address] [place] [address] Absolute lymphocyte counton 03-01-2022 Lymphocytes Auto (Unsp spec) [#/Vol] 2.41 10*3/uL 0.83-4.51 [facility] Work Phone: Basophil percentageon 2021 Basophils/100 WBC (Bld) 0.5 % 0-1 [facility] Work Phone: Chloride [Moles/Vol] 101 mmol/L 98-107 [facility] Work Phone: Eosinophils/100 WBC (Bld) 1.7 % 0-5 [facility] Work Phone: Glucose [Mass/Vol] 237 mg/dL 74-106 [facility] Work Phone: Comment on above: Glucose result great er than or equal to 200 mg/dLsuggests DIABETES MELLITUS per A.D.A. criteria. Neutrophils (Bld) [#/Vol] 6.7 10*3/uL 2.0-7.7 [facility] Work Phone: Neutrophils/100 WBC (Bld) 66.4 % 47-70 [facility] Work Phone: Potassium [Moles/Vol] 4.4 mmol/L 3.5-5.1 [facility] Work Phone: Sodium [Moles/Vol] 136 mmol/L 136-145 [facility] Work Phone: WBC (Bld) [#/Vol] 10.0 10*3/uL 4.4-11.0 [facility] Work Phone: Blood erythrocytes count (nu mber/volume)on 03-01-2022 RBC (Bld) [#/Vol] 4.90 10*6/uL 4.2-5.4 [facility] Work Phone: Blood hemoglobin measurement (mass/volume)on 03-01-2022 Hemoglobin (Bld) [Mass/Vol] 14.0 g/dL 12.0-15.0 [facility] Work Phone: Blood lymphocytes/100 leukoc yteson 03-01-2022 Lymphocytes/100 WBC (Bld) 24.0 % 19-41 [facility] Work Phone: Blood monocytes/100 leukocyt eson 03-01-2022 Monocytes/100 WBC (Bld) 6.6 % 0-10 [facility] Work Phone: Blood platelet mean volumeon 03-01-2022 Platelet mean volume (Bld) [Entitic vol] 10.1 fL 6.2-12.0 [facility] Work Phone: Determination of erythrocyte mean corpuscular volume (MCV)on 03-01-2022 MCV (RBC) [Entitic vol] 86.9 fL 81-99 [facility] Work Phone: Hematocrit Auto (Bld) [Volum e fraction]on 03-01-2022 Hematocrit (Bld) [Volume fraction] 42.6 % 37-47 [facility] Work Phone: Laboratory - Chemistry and C hemistry - challengeon 03-01-2022 CO2 [Moles/Vol] 27.0 mmol/L 21.0-32.0 [facility] Work Phone: Urea nitrogen/Creatinine [Mass ratio] 23.0 mg/mg 10-20 [facility] Work Phone: Laboratory - Hematology and Cell countson 03-01-2022 Erythrocyte distribution width (RBC) [Entitic vol] 44.4 fL 35.1-43.9 [facility] Work Phone: Erythrocyte distribution width (RBC) [Ratio] 13.8 % 11.6-14.6 [facility] Work Phone: Immature granulocytes/100 WBC (Bld) 0.800 % 0.0-0.9 [facility] Work Phone: Comment on above: IG% - Immature Granu locytes (promyelocytes, myelocytes and metamyelocytes) > 1% indicates that a LEFT SHIFT is Present. MCH (RBC) [Entitic mass] 28.6 pg 27.0-32.0 [facility] Work Phone: Nucleated RBC/100 WBC (Bld) [Ratio] 0 % 0-5 [facility] Work Phone: MCHC Auto (RBC) [Mass/Vol]on 03-01-2022 MCHC (RBC) [Mass/Vol] 32.9 g/dL 32-36 [facility] Work Phone: No Panel Informationon 03-01 Estimated Creatinine Clearance Calc 37.74 ml/min [facility] Work Phone: Estimated GFR (MDRD) Amer 69 mL/min >60 [facility] Work Phone: Comment on above: GFR Calc Estimated GFR (MDRD) Non-Af Amer 57 mL/min >60 [facility] Work Phone: Comment on above: Non- GFR Calc Platelets bldon 03-01-2022 Platelets (Bld) [#/Vol] 228 10*3/uL 150-450 [facility] Work Phone: Serum or plasma acetone roger urement (mass/volume)on 03-01-2022 Acetone [Mass/Vol] Negative NEG [facility] Work Phone: Serum or plasma calcium roger urement (mass/volume)on 03-01-2022 Calcium [Mass/Vol] 10.1 mg/dL 8.5-10.1 [facility] Work Phone: Serum or plasma creatinine m easurement (mass/volume)on 03-01-2022 Creatinine [Mass/Vol] 1.00 mg/dL 0.55-1.02 [facility] Work Phone: Comment on above: The validity of the calculated GFR & GFRAA in patients over 70 years has not been determined. Clinical correlation is essential. Serum or plasma urea nitroge n measurement (mass/volume)on 03-01-2022 Urea nitrogen [Mass/Vol] 23 mg/dL 7-18 [facility] Work Phone: Thin prep Papanicolaou smear with manual screeningon 03-01-2022 Thin prep Papanicolaou smear with manual screening 8 5-15 [facility] Work Phone: C peptide SerPl-ncon 11-15 C peptide [Mass/Vol] <0.20 Low 0.81-3.85 [facility] Comment on above: Order Comment: Malini solorio Type: BLOOD SPECIMEN Ordering Facility: [facility] Address: [address] [place] [address] Result Comment: Resu lt rechecked. Performed By: #### 1 986-9 #### [facility] CLIA [id number] [address] [place] [address] [place] GAD65 Ab Ser-aCncon 11-16-19 22 Glutamate decarboxylase 65 Ab Qn (S) >120.0 High <=5.0 [facility] Comment on above: Order Comment: Malini [facility] Type: BLOOD SPECIMEN Ordering Facility: [facility] Address: [address] [place] [address] Result Comment: Anti -glutamic acid decarboxylase antibody [...] is required. Performed By: #### I NSLAB, 41439-4 #### [facility] IA [id number] [address] [place] [address] [place] GLUCOSE RANDOM BLDon 022 Glucose [Mass/Vol] 94 mg/dL 74 - 99 mg/dL [facility] Glucose SerPl-ncon 022 Glucose [Mass/Vol] 94 mg/dL Normal 74-99 [facility] Comment on above: Order Comment: Malini solorio Type: BLOOD SPECIMEN Ordering Facility: [facility] Address: [address] [place] [address] Result Comment: The [place] Diabetes Association (ADA) provides guidance for cutoff [...] Standards of Medical Care in Diabetes 2016, [place] Diabetes Association. Diabetes Care. 2016.39(Suppl 1). Performed By: #### 2 345-7, 3016-3 #### [facility] CLIA [id number] [address] [place] [address] [place] Glutamate decarboxylase 65 A b Qn (S)on 11-15-2021 GLUTAMIC ACID DECARBOXYLAS AB QUALITATIVE Positive Abnormal Negative [facility] Comment on above: Order Comment: Malini solorio Type: BLOOD SPECIMEN Ordering Facility: [facility] Address: [address] [place] [address] Performed By: #### I NSKATIE, 77062-1 #### [facility] CLIA [id number] [address] [place] [address] [place] HEMOGLOBIN A1C (POC)on 11-15 HbA1c (Bld) [Mass fraction] 8.1 % Abnormal 4.2 - 5.6 % [facility] INSULIN ANTIBODY BLDon 11-15 Insulin Ab Qn (S) <0.4 Normal <0.4 [facility] Comment on above: Order Comment: Malini solorio Type: BLOOD SPECIMEN Ordering Facility: [facility] Address: [address] [place] [address] Result Comment: Anti -insulin antibody test is used as an aid in diagnosis and prognosis of autoimmune diabetes mellitus in combination with other tests such as anti-GAD65 and anti-IA-2 antibody. A single negative result cannot rule out autoimmune diabetes mellitus. The test is not reliable in patients who had previously received exogenous insulin. Clinical correlation is required. Performed By: #### I NSLAB, 61873-9 #### [facility] CLIA [id number] [address] [place] INSULIN ANTIBODY, QUALITATIVE Negative Normal Negative [facility] Comment on above: Order Comment: Malini solorio Type: BLOOD SPECIMEN Ordering Facility: [facility] Address: [address] [place] [address] Performed By: #### I NSLAB, 70174-0 #### [facility] CLIA [id number] [address] [place] [address] [place] INSULINOMA ASSOCIATED ANTIBO DY 2on 11-15-2021 IA 2 ANTIBODY BLOOD <5.4 Normal <7.5 [facility] Comment on above: Order Comment: Malini solorio Type: BLOOD SPECIMEN Ordering Facility: [facility] Address: [address] [place] [address] Result Comment: Anti -insulinoma associated antigen 2 (IA-2) antibody test is used as an aid in diagnosis of type I diabetes mellitus, to predict the risk of progression to type I diabetes mellitus among susceptible individuals, and to predict the necessity of insulin therapy in adult-onset diabetes mellitus. Clinical correlation is required. Performed By: #### I A2AB #### [facility] CLIA [id number] [address] [place] [address] [place] ISLET CELL ABon 11-15-2021 ISLET CELL AB <1:4 Normal <1:4 [facility] Comment on above: Order Comment: Malini solorio Type: BLOOD SPECIMEN Ordering Facility: [facility] Address: [address] [place] [address] Result Comment: INTE RPRETIVE INFORMATION: Islet Cell [...] developed and its performance characteristics determined by [employer]. It has not been cleared or approved by the [place] Food and Drug Administration. This test was performed in a CLIA certified laboratory and is intended for clinical purposes. Performed By: [employer] [address] [place], [place] [id number] Pipe Organ Mechanic: Abdirizak Quintana MD, PhD Performed By: #### I SLET #### [facility] CLIA [id number] [address] [place] [address] T4 Free SerPl-mCncon 2 022 Free T4 [Mass/Vol] 1.9 ng/dL High 0.9-1.7 [facility] Comment on above: Order Comment: Speci men Type: BLOOD SPECIMEN Ordering Facility: [facility] Address: [address] [place] [address] Performed By: #### 3 024-7 #### [facility] CLIA [id number] [address] [place] [address] [place] TSH BLDon 11-15-2021 TSH Qn 0.073 m[IU]/L Low 0.270 - 4.200 mIU/L [facility] TSH SerPl-aCncon 11-15-2021 TSH Qn 0.073 m[IU]/L Low 0.270-4.200 [facility] Comment on above: Order Comment: Speci men Type: BLOOD SPECIMEN Ordering Facility: [facility] Address: [address] [place] [address] Performed By: #### 2 345-7, 3016-3 #### [facility] CLIA [id number] [address] [place] Absolute lymphocyte counton 08-30-2021 Lymphocytes Auto (Unsp spec) [#/Vol] 2.76 10*3/uL 0.83-4.51 [facility] Work Phone: Basophil percentageon 2021 Basophils/100 WBC (Bld) 0.5 % 0-1 [facility] Work Phone: Chloride [Moles/Vol] 104 mmol/L 98-107 [facility] Work Phone: Eosinophils/100 WBC (Bld) 1.3 % 0-5 [facility] Work Phone: Glucose [Mass/Vol] 205 mg/dL 74-106 [facility] Work Phone: Comment on above: Glucose result great er than or equal to 200 mg/dLsuggests DIABETES MELLITUS per A.D.A. criteria. Neutrophils (Bld) [#/Vol] 10.9 10*3/uL 2.0-7.7 [facility] Work Phone: Neutrophils/100 WBC (Bld) 70.9 % 47-70 [facility] Work Phone: Potassium [Moles/Vol] 4.2 mmol/L 3.5-5.1 [facility] Work Phone: Sodium [Moles/Vol] 138 mmol/L 136-145 [facility] Work Phone: WBC (Bld) [#/Vol] 15.4 10*3/uL 4.4-11.0 [facility] Work [facility]: Blood erythrocytes count (nu mber/volume)on 08-30-2021 RBC (Bld) [#/Vol] 4.32 10*6/uL 4.2-5.4 [facility] Work Phone: Blood hemoglobin measurement (mass/volume)on 08-30-2021 Hemoglobin (Bld) [Mass/Vol] 12.9 g/dL 12.0-15.0 [facility] Work Phone: Blood lymphocytes/100 leukoc yteson 08-30-2021 Lymphocytes/100 WBC (Bld) 18.0 % 19-41 [facility] Work Phone: Blood monocytes/100 leukocyt eson 08-30-2021 Monocytes/100 WBC (Bld) 7.5 % 0-10 [facility] Work Phone: Blood platelet mean volumeon 08-30-2021 Platelet mean volume (Bld) [Entitic vol] 10.7 fL 6.2-12.0 [facility] Work Phone: Determination of erythrocyte mean corpuscular volume (MCV)on 08-30-2021 MCV (RBC) [Entitic vol] 88.0 fL 81-99 [facility] Work Phone: Hematocrit Auto (Bld) [Volum e fraction]on 08-30-2021 Hematocrit (Bld) [Volume fraction] 38.0 % 37-47 [facility] Work Phone: Laboratory - Chemistry and C hemistry - challengeon 08-30-2021 CO2 [Moles/Vol] 26.0 mmol/L 21.0-32.0 [facility] Work Phone: Urea nitrogen/Creatinine [Mass ratio] 20.2 mg/mg 10-20 [facility] Work Phone: Laboratory - Hematology and Cell countson 08-30-2021 Erythrocyte distribution width (RBC) [Entitic vol] 46.1 fL 35.1-43.9 [facility] Work Phone: Erythrocyte distribution width (RBC) [Ratio] 14.4 % 11.6-14.6 [facility] Work Phone: Immature granulocytes/100 WBC (Bld) 1.800 % 0.0-0.9 [facility] Work Phone: Comment on above: IG% - Immature Granu locytes (promyelocytes, myelocytes and metamyelocytes) > 1% indicates that a LEFT SHIFT is Present. MCH (RBC) [Entitic mass] 29.9 pg 27.0-32.0 [facility] Work Phone: Nucleated RBC/100 WBC (Bld) [Ratio] 0 % 0-5 [facility] Work Phone: MCHC Auto (RBC) [Mass/Vol]on 08-30-2021 MCHC (RBC) [Mass/Vol] 33.9 g/dL 32-36 [facility] Work Phone: No Panel Informationon 08-30 Estimated Creatinine Clearance Calc 27.76 ml/min [facility] Work Phone: Estimated GFR (MDRD) Amer 54 mL/min >60 [facility] Work Phone: Comment on above: GFR Calc Estimated GFR (MDRD) Non-Af Amer 44 mL/min >60 [facility] Work Phone: Comment on above: Non- GFR Calc Platelets bldon 08-30-2021 Platelets (Bld) [#/Vol] 236 10*3/uL 150-450 [facility] Work Phone: Serum or plasma calcium roger urement (mass/volume)on 08-30-2021 Calcium [Mass/Vol] 9.5 mg/dL 8.5-10.1 [facility] Work Phone: Serum or plasma creatinine m easurement (mass/volume)on 08-30-2021 Creatinine [Mass/Vol] 1.24 mg/dL 0.55-1.02 [facility] Work Phone: Comment on above: The validity of the calculated GFR & GFRAA in patients over 70 years has not been determined. Clinical correlation is essential. Serum or plasma urea nitroge n measurement (mass/volume)on 08-30-2021 Urea nitrogen [Mass/Vol] 25 mg/dL 7-18 [facility] Work Phone: Thin prep Papanicolaou smear with manual screeningon 08-30-2021 Thin prep Papanicolaou smear with manual screening 8 5-15 [facility] Work Phone: Absolute lymphocyte counton 08-19-2021 Lymphocytes Auto (Unsp spec) [#/Vol] 2.66 10*3/uL 0.83-4.51 [facility] Work Phone: Basophil percentageon 2021 Chloride [Moles/Vol] 108 mmol/L 98-107 [facility] Work Phone: Glucose [Mass/Vol] 86 mg/dL 74-106 [facility] Work Phone: Potassium [Moles/Vol] 3.6 mmol/L 3.5-5.1 [facility] Work Phone: Sodium [Moles/Vol] 137 mmol/L 136-145 [facility] Work Phone: Basophils/100 WBC (Bld) 0.4 % 0-1 [facility] Work Phone: Eosinophils/100 WBC (Bld) 0.4 % 0-5 [facility] Work Phone: Neutrophils (Bld) [#/Vol] 6.8 10*3/uL 2.0-7.7 [facility] Work Phone: Neutrophils/100 WBC (Bld) 66.0 % 47-70 [facility] Work Phone: WBC (Bld) [#/Vol] 10.3 10*3/uL 4.4-11.0 [facility] Work Phone: Blood erythrocytes count (nu mber/volume)on 08-19-2021 RBC (Bld) [#/Vol] 3.91 10*6/uL 4.2-5.4 [facility] Work Phone: Blood hemoglobin measurement (mass/volume)on 08-19-2021 Hemoglobin (Bld) [Mass/Vol] 11.3 g/dL 12.0-15.0 [facility] Work Phone: Blood lymphocytes/100 leukoc yteson 08-19-2021 Lymphocytes/100 WBC (Bld) 25.9 % 19-41 [facility] Work Phone: Blood monocytes/100 leukocyt eson 08-19-2021 Monocytes/100 WBC (Bld) 6.9 % 0-10 [facility] Work Phone: Blood platelet mean volumeon 08-19-2021 Platelet mean volume (Bld) [Entitic vol] 11.1 fL 6.2-12.0 [facility] Work Phone: Determination of erythrocyte mean corpuscular volume (MCV)on 08-19-2021 MCV (RBC) [Entitic vol] 85.9 fL 81-99 [facility] Work Phone: Glucose Glucometer (BldC) [M ass/Vol]on 08-19-2021 Glucose [Mass/Vol] 252 mg/dL 74-106 [facility] Work Phone: Comment on above: MANAGEMENT OF PATIEN T CARE PER NURSING PROTOCOL Hematocrit Auto (Bld) [Volum e fraction]on 08-19-2021 Hematocrit (Bld) [Volume fraction] 33.6 % 37-47 [facility] Work Phone: Laboratory - Chemistry and C hemistry - challengeon 08-19-2021 CO2 [Moles/Vol] 23.0 mmol/L 21.0-32.0 [facility] Work Phone: Urea nitrogen/Creatinine [Mass ratio] 24.0 mg/mg 10-20 [facility] Work Phone: Laboratory - Hematology and Cell countson 08-19-2021 Erythrocyte distribution width (RBC) [Entitic vol] 44.3 fL 35.1-43.9 [facility] Work Phone: Erythrocyte distribution width (RBC) [Ratio] 14.1 % 11.6-14.6 [facility] Work Phone: Immature granulocytes/100 WBC (Bld) 0.400 % 0.0-0.9 [facility] Work Phone: Comment on above: IG% - Immature Granu locytes (promyelocytes, myelocytes and metamyelocytes) > 1% indicates that a LEFT SHIFT is Present. MCH (RBC) [Entitic mass] 28.9 pg 27.0-32.0 [facility] Work Phone: Nucleated RBC/100 WBC (Bld) [Ratio] 0 % 0-5 [facility] Work Phone: MCHC Auto (RBC) [Mass/Vol]on 08-19-2021 MCHC (RBC) [Mass/Vol] 33.6 g/dL 32-36 [facility] Work Phone: No Panel Informationon 08-19 Estimated Creatinine Clearance Calc 34.42 ml/min [facility] Work Phone: Estimated GFR (MDRD) Amer 102 mL/min >60 [facility] Work Phone: Comment on above: GFR Calc Estimated GFR (MDRD) Non-Af Amer 84 mL/min >60 [facility] Work Phone: Comment on above: Non- GFR Calc Platelets bldon 08-19-2021 Platelets (Bld) [#/Vol] 160 10*3/uL 150-450 [facility] Work Phone: Serum or plasma calcium roger urement (mass/volume)on 08-19-2021 Calcium [Mass/Vol] 8.3 mg/dL 8.5-10.1 [facility] Work Phone: Serum or plasma creatinine m easurement (mass/volume)on 08-19-2021 Creatinine [Mass/Vol] 0.71 mg/dL 0.55-1.02 [facility] Work Phone: Comment on above: The validity of the calculated GFR & GFRAA in patients over 70 years has not been determined. Clinical correlation is essential. Serum or plasma urea nitroge n measurement (mass/volume)on 08-19-2021 Urea nitrogen [Mass/Vol] 17 mg/dL 7-18 [facility] Work Phone: Thin prep Papanicolaou smear with manual screeningon 08-19-2021 Thin prep Papanicolaou smear with manual screening 6 5-15 [facility] Work Phone: Absolute lymphocyte counton 08-18-2021 Lymphocytes Auto (Unsp spec) [#/Vol] 2.55 10*3/uL 0.83-4.51 [facility] Work Phone: Basophil percentageon 2021 Chloride [Moles/Vol] 103 mmol/L 98-107 [facility] Work Phone: Glucose [Mass/Vol] 314 mg/dL 74-106 [facility] Work Phone: Comment on above: Glucose result great er than or equal to 200 mg/dLsuggests DIABETES MELLITUS per A.D.A. criteria. Potassium [Moles/Vol] 6.1 mmol/L 3.5-5.1 [facility] Work Phone: Comment on above: Slight Hemolysis, Re sult may be falsely increased. Critical Result(s) Called at: 20:20:17 08/18/2021 by: Porsha mckenzie [facility]. Results read back by same. Sodium [Moles/Vol] 133 mmol/L 136-145 [facility] Work Phone: Basophil percentage 0 SEEN /hpf [facility] Work Phone: Basophils/100 WBC (Bld) 0.3 % 0-1 [facility] Work Phone: Bilirubin [Mass/Vol] 0.90 mg/dL 0.20-1.00 [facility] Work Phone: Comment on above: For patients on eltr ombopag therapy, use of Dimension [place] TBIL is not recommended. Eosinophils/100 WBC (Bld) 0.0 % 0-5 [facility] Work Phone: Neutrophils (Bld) [#/Vol] 9.2 10*3/uL 2.0-7.7 [facility] Work Phone: Neutrophils/100 WBC (Bld) 74.2 % 47-70 [facility] Work Phone: Protein [Mass/Vol] 7.7 g/dL 6.4-8.2 [facility] Work Phone: WBC (Bld) [#/Vol] 12.4 10*3/uL 4.4-11.0 [facility] Work Phone: Bilirubin Test strip Ql (U)o n 08-18-2021 Bilirubin Ql (U) Negative Negative [facility] Work Phone: Blood erythrocytes count (nu mber/volume)on 08-18-2021 RBC (Bld) [#/Vol] 4.91 10*6/uL 4.2-5.4 [facility] Work Phone: Blood hemoglobin measurement (mass/volume)on 08-18-2021 Hemoglobin (Bld) [Mass/Vol] 14.3 g/dL 12.0-15.0 [facility] Work Phone: Blood lymphocytes/100 leukoc yteson 08-18-2021 Lymphocytes/100 WBC (Bld) 20.6 % 19-41 [facility] Work Phone: Blood monocytes/100 leukocyt eson 08-18-2021 Monocytes/100 WBC (Bld) 4.1 % 0-10 [facility] Work Phone: Blood platelet mean volumeon 08-18-2021 Platelet mean volume (Bld) [Entitic vol] 10.9 fL 6.2-12.0 [facility] Work Phone: Determination of erythrocyte mean corpuscular volume (MCV)on 08-18-2021 MCV (RBC) [Entitic vol] 86.4 fL 81-99 [facility] Work Phone: Glucose Glucometer (BldC) [M ass/Vol]on 08-18-2021 Glucose [Mass/Vol] 276 mg/dL 74-106 [facility] Work Phone: Comment on above: MANAGEMENT OF PATIEN T CARE PER NURSING PROTOCOL HCO3 (BldA) [Moles/Vol]on HCO3 (Bld) [Moles/Vol] 19 mmol/L 22-26 [facility] Work Phone: Hematocrit Auto (Bld) [Volum e fraction]on 08-18-2021 Hematocrit (Bld) [Volume fraction] 42.4 % 37-47 [facility] Work Phone: Hyaline casts LM.LPF (Urine sed) [#/Area]on 08-18-2021 Hyaline casts (Urine sed) [#/Area] 5 /[LPF] [facility] Work Phone: Ketones Test strip Ql (U)on 08-18-2021 Ketones Ql (U) 150 mg/dl Negative [facility] Work Phone: Comment on above: CRITICAL VALUE *HCRI TICAL VALUE VERIFIED. CALLED TO [id number]/01/22 1842 Porsha Vincenzo.RESULTS READ BACK BY SAME . Laboratory - Chemistry and C hemistry - challengeon 08-18-2021 CO2 [Moles/Vol] 19.0 mmol/L 21.0-32.0 [facility] Work Phone: Urea nitrogen/Creatinine [Mass ratio] 22.8 mg/mg 10-20 [facility] Work Phone: CO2 [Moles/Vol] 20 mmol/L 23-33 [facility] Work Phone: ALP [Catalytic activity/Vol] 105 U/L 45-117 [facility] Work Phone: ALT [Catalytic activity/Vol] 13 U/L 13-56 [facility] Work Phone: Globulin (S) [Mass/Vol] 3.7 g/dL 2.2-4.2 [facility] Work Phone: Laboratory - Hematology and Cell countson 08-18-2021 Erythrocyte distribution width (RBC) [Entitic vol] 43.5 fL 35.1-43.9 [facility] Work Phone: Erythrocyte distribution width (RBC) [Ratio] 13.7 % 11.6-14.6 [facility] Work Phone: Immature granulocytes/100 WBC (Bld) 0.800 % 0.0-0.9 [facility] Work Phone: Comment on above: IG% - Immature Granu locytes (promyelocytes, myelocytes and metamyelocytes) > 1% indicates that a LEFT SHIFT is Present. MCH (RBC) [Entitic mass] 29.1 pg 27.0-32.0 [facility] Work Phone: Nucleated RBC/100 WBC (Bld) [Ratio] 0 % 0-5 [facility] Work Phone: MCHC Auto (RBC) [Mass/Vol]on 08-18-2021 MCHC (RBC) [Mass/Vol] 33.7 g/dL 32-36 [facility] Work Phone: Mucus LM Ql (Urine sed)on Mucus Ql (Urine sed) 0 SEEN /hpf [facility] Work Phone: Nitrite Test strip Ql (U)on 08-18-2021 Nitrite Ql (U) Negative Negative [facility] Work Phone: No Panel Informationon 08-18 Estimated Creatinine Clearance Calc 28.41 ml/min [facility] Work Phone: Estimated GFR (MDRD) Amer 52 mL/min >60 [facility] Work Phone: Comment on above: GFR Calc Estimated GFR (MDRD) Non-Af Amer 43 mL/min >60 [facility] Work Phone: Comment on above: Non- GFR Calc Bed Mix Venous Bld PCO2 at [facility] Temp 42.1 mmHg 41-51 [facility] Work Phone: Blood Gas Specimen Type CATHY [facility] Work Phone: Venous Blood Base Excess -8 mmol/L -1.0-3.5 [facility] Work Phone: PO2 venouson 08-18-2021 Oxygen (BldV) [Partial pressure] 22 mm[Hg] 25-40 [facility] Work Phone: Platelets bldon 08-18-2021 Platelets (Bld) [#/Vol] 229 10*3/uL 150-450 [facility] Work Phone: Protein Test strip Ql (U)on 08-18-2021 Protein Ql (U) 30 mg/dl Negative [facility] Work Phone: Serum or plasma acetone roger urement (mass/volume)on 08-18-2021 Acetone [Mass/Vol] MODERATE NEG [facility] Work Phone: Serum or plasma albumin roger urement (mass/volume)on 08-18-2021 Albumin [Mass/Vol] 4.0 g/dL 3.2-5.0 [facility] Work Phone: Serum or plasma albumin/glob ulin mass ratioon 08-18-2021 Albumin/Globulin [Mass ratio] 1.1 {ratio} 0.9-2.4 [facility] Work Phone: Serum or plasma calcium roger urement (mass/volume)on 08-18-2021 Calcium [Mass/Vol] 9.3 mg/dL 8.5-10.1 [facility] r [facility] Work Phone: Serum or plasma creatinine m easurement (mass/volume)on 08-18-2021 Creatinine [Mass/Vol] 1.27 mg/dL 0.55-1.02 [facility] ster [facility] Work Phone: Comment on above: The validity of the calculated GFR & GFRAA in patients over 70 years has not been determined. Clinical correlation is essential. Serum or plasma urea nitroge n measurement (mass/volume)on 08-18-2021 Urea nitrogen [Mass/Vol] 29 mg/dL 7-18 [facility] Work Phone: Squamous epithelial cells de tection in urine sediment by light microscopyon 08-18-2021 Epithelial cells.squamous LM Ql (Urine sed) 0 SEEN /hpf [facility] Work Phone: Thin prep Papanicolaou smear with manual screeningon 08-18-2021 Thin prep Papanicolaou smear with manual screening 11 5-15 [facility] Work Phone: Thin prep Papanicolaou smear with manual screening 10 U/L 15-37 [facility] Work Phone: Urine blood detectionon 04-0 RBC Ql (U) Negative Negative [facility] Work Phone: RBC Ql (U) 0 SEEN /hpf [facility] Work Phone: Urine clarityon 08-18-2021 Clarity (U) Clear Clear [facility] Work Phone: Urine color determinationon 08-18-2021 Color (U) Yellow Yellow [facility] Work Phone: Urine glucose detectionon Glucose Ql (U) 1000 mg/dl Normal [facility] Work Phone: Urine leukocyte esterase det ection by dipstickon 08-18-2021 Leukocyte esterase Test strip Ql (U) Negative Negative [facility] Work Phone: Urine pHon 08-18-2021 pH (U) 5.0 [pH] [facility] Work Phone: Urine sediment bacteria coun t by microscopy (number/high power field)on 08-18-2021 Bacteria LM.HPF (Urine sed) [#/Area] 0 /[HPF] None Seen [facility] Work Phone: Urine specific gravity measu rementon 08-18-2021 Specific gravity (U) [Rel density] 1.025 [facility] Work Phone: Urobilinogen Auto test strip Ql (U)on 08-18-2021 Urobilinogen Ql (U) Normal mg/dl Normal [facility] Work Phone: Vital signson 08-18-2021 Oxygen saturation in Blood 30 % 50-70 [facility] Work Phone: Whole blood hemoglobin A1c/t otal hemoglobin ratio (mass fraction)on 08-18-2021 HbA1c (Bld) [Mass fraction] 9.4 % 3.8-5.6 [facility] Work Phone: Comment on above: Normal < 5.7 % Predi abetic 5.7 - 6.4 % Diabetic >or= 6.5 % Please note range changes. pH measurementon 08-18-2021 pH (Unsp spec) 7.26 [pH] 7.32-7.42 [facility] Work Phone: Influenza virus A and B and SARS-CoV-2 (COVID-19) Ag panel - Upper respiratory specim SARS-CoV-2 (COVID-19) RNA SHABANA+probe Ql (Resp) [facility] Work Phone: Vital Signs Date Time Vital Sign Value Performing Clinician Faci lity 12-02-2024 08:08-0400 Body height 160.[address] Rg Menchaca MD Work Phone: 2(796)165-098207 [place] [address] 12-02-2024 08:08-0400 Body mass index (BMI) [Ratio] 24.3 kg/m2 Dr. Rg Menchaca MD Work Phone: 1(684)988-635607 [place] [address] 12-02-2024 08:08-0400 Body temperature 96.4 [degF] Dr. Rg Menchaca MD Work Phone: 2(107)220-017707 [place] [address] 12-02-2024 08:08-0400 Body weight 62.[address] Rg Menchaca MD Work Phone: 3(969)023-874807 [place] [address] 12-02-2024 08:08-0400 Diastolic blood pressure 67 mm[Hg] Dr. Rg Menchaca MD Work Phone: 6(244)354-000307 [place] [address] 12-02-2024 08:08-0400 Heart rate 82 /min Dr. Rg Menchaca MD Work Phone: 7(014)770-316107 [place] [address] 12-02-2024 08:08-0400 Respiratory rate 16 /min Dr. Rg Menchaca MD Work Phone: 2(636)774-025007 [place] [address] 12-02-2024 08:08-0400 SaO2% (BldA) [Mass fraction] 96 % Dr. Rg Menchaca MD Work Phone: 9(960)150-540907 [place] [address] 12-02-2024 08:08-0400 Systolic blood pressure 110 mm[Hg] Dr. Rg Menchaca MD Work Phone: 2(958)941-611407 [place] [address] 12-01-2024 08:09-0400 Body height 160.[address] Rg Menchaca MD Work Phone: 9(434)793-432607 [place] [address] 12-01-2024 08:09-0400 Body mass index (BMI) [Ratio] 24.3 kg/m2 Dr. Rg Menchaca MD Work Phone: 8(939)016-749607 [place] [address] 12-01-2024 08:09-0400 Body temperature 96.7 [degF] Dr. Rg Menchaca MD Work Phone: 4(846)468-376907 [place] [address] 12-01-2024 08:09-0400 Body weight 62.[address] Rg Menchaca MD Work Phone: [facility] 12-01-2024 08:09-0400 Diastolic blood pressure 75 mm[Hg] Dr. Rg Menchaca MD Work Phone: [facility] 12-01-2024 08:09-0400 Heart rate 78 /min Dr. Rg Menchaca MD Work Phone: [facility] 12-01-2024 08:09-0400 Respiratory rate 16 /min Dr. Rg Menchaca MD Work Phone: [facility] 12-01-2024 08:09-0400 SaO2% (BldA) [Mass fraction] 95 % Dr. Rg Menchaca MD Work Phone: [facility] 12-01-2024 08:09-0400 Systolic blood pressure 90 mm[Hg] Dr. Rg Menchaca MD Work Phone: [facility] 11-11-2024 12:42-0400 Diastolic blood pressure 67 mm[Hg] Windy Yuen MD Work Phone: [facility] 11-11-2024 12:42-0400 Heart rate 74 /min Windy Yuen MD Work Phone: [facility] 11-11-2024 12:42-0400 SaO2% (BldA) [Mass fraction] 96 % Windy Yuen MD Work Phone: [facility] 11-11-2024 12:42-0400 Systolic blood pressure 108 mm[Hg] Windy Yuen MD Work Phone: [facility] 11-05-2024 08:15-0400 Body height 160.[address] Rg Menchaca MD Work Phone: [facility] 11-05-2024 08:15-0400 Body mass index (BMI) [Ratio] 24.4 kg/m2 Dr. Rg Menchaca MD Work Phone: [facility] 11-05-2024 08:15-0400 Body temperature 96.5 [degF] Dr. Rg Menchaca MD Work Phone: [facility] 11-05-2024 08:15-0400 Body weight 62.[address] Rg Menchaca MD Work Phone: [facility] 11-05-2024 08:15-0400 Diastolic blood pressure 64 mm[Hg] Dr. Rg Menchaca MD Work Phone: 3(870)906-485007 [place] [address] 11-05-2024 08:15-0400 Heart rate 74 /min Dr. Rg Menchaca MD Work Phone: 9(632)271-596907 [place] [address] 11-05-2024 08:15-0400 Respiratory rate 16 /min Dr. Rg Menchaca MD Work Phone: 3(970)083-749307 [place] [address] 11-05-2024 08:15-0400 SaO2% (BldA) [Mass fraction] 95 % Dr. Rg Menchaca MD Work Phone: 5(491)338-420007 [place] [address] 11-05-2024 08:15-0400 Systolic blood pressure 142 mm[Hg] Dr. Rg Menchaca MD Work Phone: 4(913)964-529307 [place] [address] 11-04-2024 07:55-0400 Body height 160.[address] Rg Menchaca MD Work Phone: 4(954)017-152907 [place] [address] 11-04-2024 07:55-0400 Body mass index (BMI) [Ratio] 24.4 kg/m2 Dr. Rg Menchaca MD Work Phone: 8(501)883-862307 [place] [address] 11-04-2024 07:55-0400 Body temperature 96.2 [degF] Dr. Rg Menchaca MD Work Phone: 4(537)502-141607 [place] [address] 11-04-2024 07:55-0400 Body weight 62.[address] Rg Menchaca MD Work Phone: 1(174)814-377407 [place] [address] 11-04-2024 07:55-0400 Diastolic blood pressure 70 mm[Hg] Dr. Rg Menchaca MD Work Phone: 9(761)093-519907 [place] [address] 11-04-2024 07:55-0400 Heart rate 74 /min Dr. Rg Menchaca MD Work Phone: [facility] 11-04-2024 07:55-0400 Respiratory rate 16 /min Dr. Rg Menchaca MD Work Phone: 7(494)293-190838 [address] 11-04-2024 07:55-0400 SaO2% (BldA) [Mass fraction] 94 % Dr. Rg Menchaca MD Work Phone: 8(117)203-993007 [place] [address] 11-04-2024 07:55-0400 Systolic blood pressure 118 mm[Hg] Dr. Rg Menchaca MD Work Phone: 4(037)179-000038 [address] 11-03-2024 08:09-0400 Body height 160.[address] Rg Menchaca MD Work Phone: 9(345)662-343107 [place] [address] 11-03-2024 08:09-0400 Body mass index (BMI) [Ratio] 24.4 kg/m2 Dr. Rg Menchaca MD Work Phone: 1(499)904-855107 [place] [address] 11-03-2024 08:09-0400 Body temperature 97.5 [degF] Dr. Rg Menchaca MD Work Phone: 1(348)373-297207 [place] [address] 11-03-2024 08:09-0400 Body weight 62.[address] Rg Menchaca MD Work Phone: 0(769)663-459107 [place] [address] 11-03-2024 08:09-0400 Diastolic blood pressure 68 mm[Hg] Dr. Rg Menchaca MD Work Phone: 9(156)033-255807 [place] [address] 11-03-2024 08:09-0400 Heart rate 86 /min Dr. Rg Menchaca MD Work Phone: 3(261)125-916938 [address] 11-03-2024 08:09-0400 Respiratory rate 16 /min Dr. Rg Menchaca MD Work Phone: 1(596)372-872607 [place] [address] 11-03-2024 08:09-0400 Systolic blood pressure 116 mm[Hg] Dr. Rg Menchaca MD Work Phone: 8(066)594-071507 [place] [address] 10-08-2024 08:55-0400 Body temperature 97.1 [degF] Dr. Rg Menchaca MD Work Phone: 9(258)633-173638 [address] 10-08-2024 08:55-0400 Diastolic blood pressure 71 mm[Hg] Dr. Rg Menchaca MD Work Phone: [facility] 10-08-2024 08:55-0400 Heart rate 68 /min Dr. Rg Menchaca MD Work Phone: 1(202)134-452707 [place] [address] 10-08-2024 08:55-0400 Respiratory rate 16 /min Dr. Rg Menchaca MD Work Phone: 3(969)477-413607 [place] [address] 10-08-2024 08:55-0400 SaO2% (BldA) [Mass fraction] 94 % Dr. Rg Menchaca MD Work Phone: 2(080)972-713107 [place] [address] 10-08-2024 08:55-0400 Systolic blood pressure 116 mm[Hg] Dr. Rg Menchaca MD Work Phone: 0(697)750-627107 [place] [address] 10-07-2024 08:31-0400 Body height 160.[address] Rg Menchaca MD Work Phone: 1(071)764-539407 [place] [address] 10-07-2024 08:31-0400 Body mass index (BMI) [Ratio] 23.3 kg/m2 Dr. Rg Menchaca MD Work Phone: 5(754)336-732107 [place] [address] 10-07-2024 08:31-0400 Body temperature 97.2 [degF] Dr. Rg Menchaca MD Work Phone: 6(961)989-657007 [place] [address] 10-07-2024 08:31-0400 Body weight 59.[address] Rg Menchaca MD Work Phone: [facility] 10-07-2024 08:31-0400 Diastolic blood pressure 63 mm[Hg] Dr. Rg Menchaca MD Work Phone: 7(047)371-895107 [place] [address] 10-07-2024 08:31-0400 Heart rate 72 /min Dr. Rg Menchaca MD Work Phone: 6(498)473-566017 [place] [address] 10-07-2024 08:31-0400 Respiratory rate 14 /min Dr. Rg Menchaca MD Work Phone: 8(353)093-279517 [place] [address] 10-07-2024 08:31-0400 SaO2% (BldA) [Mass fraction] 96 % Dr. Rg Menchaca MD Work Phone: [facility] 10-07-2024 08:31-0400 Systolic blood pressure 112 mm[Hg] Dr. Rg Menchaca MD Work Phone: 2(855)821-447538 [address] 10-06-2024 08:06-0400 Body height 160.[address] Rg Menchaca MD Work Phone: 3(330)954-940107 [place] [address] 10-06-2024 08:06-0400 Body mass index (BMI) [Ratio] 24.4 kg/m2 Dr. Rg Menchaca MD Work Phone: 5(471)103-140607 [place] [address] 10-06-2024 08:06-0400 Body temperature 97.4 [degF] Dr. Rg Menchaca MD Work Phone: 3(260)535-914907 [place] [address] 10-06-2024 08:06-0400 Body weight 62.[address] Rg Menchaca MD Work Phone: 9(919)458-633907 [place] [address] 10-06-2024 08:06-0400 Diastolic blood pressure 59 mm[Hg] Dr. Rg Menchaca MD Work Phone: 1(304)135-505007 [place] [address] 10-06-2024 08:06-0400 Heart rate 73 /min Dr. Rg Menchaca MD Work Phone: 8(057)782-848507 [place] [address] 10-06-2024 08:06-0400 Respiratory rate 16 /min Dr. Rg Menchaca MD Work Phone: 9(564)423-257707 [place] [address] 10-06-2024 08:06-0400 SaO2% (BldA) [Mass fraction] 92 % Dr. Rg Menchaca MD Work Phone: 6(897)928-399707 [place] [address] 10-06-2024 08:06-0400 Systolic blood pressure 102 mm[Hg] Dr. Rg Menchaca MD Work Phone: 4(598)549-998217 [place] [address] 09-10-2024 08:20-0400 Body height 160.[address] Rg Menchaca MD Work Phone: 8(119)013-568517 [place] [address] 09-10-2024 08:20-0400 Body mass index (BMI) [Ratio] 24.7 kg/m2 Dr. Rg Menchaca MD Work Phone: [facility] 09-10-2024 08:20-0400 Body temperature 96.8 [degF] Dr. Rg Menchaca MD Work Phone: [facility] 09-10-2024 08:20-0400 Body weight 63.[address] Rg Menchaca MD Work Phone: [facility] 09-10-2024 08:20-0400 Diastolic blood pressure 75 mm[Hg] Dr. Rg Menchaca MD Work Phone: 6(742)820-822338 [address] 09-10-2024 08:20-0400 Heart rate 78 /min Dr. Rg Menchaca MD Work Phone: 2(308)820-310138 [address] 09-10-2024 08:20-0400 Respiratory rate 16 /min Dr. Rg Menchaca MD Work Phone: 6(893)893-737838 [address] 09-10-2024 08:20-0400 SaO2% (BldA) [Mass fraction] 95 % Dr. Rg Menchaca MD Work Phone: [facility] 09-10-2024 08:20-0400 Systolic blood pressure 135 mm[Hg] Dr. Rg Menchaca MD Work Phone: [facility] 09-09-2024 12:17-0400 Body temperature 96 [degF] Dr. Rg Menchaca MD Work Phone: [facility] 09-09-2024 12:17-0400 Diastolic blood pressure 76 mm[Hg] Dr. Rg Menchaca MD Work Phone: 9(494)504-106738 [address] 09-09-2024 12:17-0400 Heart rate 68 /min Dr. Rg Menchaca MD Work Phone: [facility] 09-09-2024 12:17-0400 Respiratory rate 16 /min Dr. Rg Menchaca MD Work Phone: [facility] 09-09-2024 12:17-0400 Systolic blood pressure 117 mm[Hg] Dr. Rg Menchaca MD Work Phone: 1(349)882-963717 [place] [address] 09-09-2024 08:09-0400 Body height 160.[address] Rg Menchaca MD Work Phone: 2(825)779-588507 [place] [address] 09-09-2024 08:09-0400 Body mass index (BMI) [Ratio] 24.7 kg/m2 Dr. Rg Menchaca MD Work Phone: 4(605)913-183107 [place] [address] 09-09-2024 08:09-0400 Body weight 63.[address] Rg Menchaca MD Work Phone: 8(028)007-542807 [place] [address] 09-09-2024 08:09-0400 SaO2% (BldA) [Mass fraction] 94 % Dr. Rg Menchaca MD Work Phone: 2(159)173-749707 [place] [address] 09-08-2024 08:33-0400 Body mass index (BMI) [Ratio] 24.7 kg/m2 Dr. Rg Menchaca MD Work Phone: 6(639)310-209607 [place] [address] 09-08-2024 08:33-0400 Body temperature 96.5 [degF] Dr. Rg Menchaca MD Work Phone: 0(841)593-285907 [place] [address] 09-08-2024 08:33-0400 Body weight 63.[address] Rg Menchaca MD Work Phone: 5(909)153-929407 [place] [address] 09-08-2024 08:33-0400 Diastolic blood pressure 75 mm[Hg] Dr. Rg Menchaca MD Work Phone: 5(083)215-215007 [place] [address] 09-08-2024 08:33-0400 Heart rate 80 /min Dr. Rg Menchaca MD Work Phone: 8(002)809-995207 [place] [address] 09-08-2024 08:33-0400 Respiratory rate 16 /min Dr. Rg Menchaca MD Work Phone: 2(227)325-142307 [place] [address] 09-08-2024 08:33-0400 SaO2% (BldA) [Mass fraction] 93 % Dr. Rg Menchaca MD Work Phone: 1(112)585-163307 [place] [address] 09-08-2024 08:33-0400 Systolic blood pressure 126 mm[Hg] Dr. Rg Menchaca MD Work Phone: [facility] 08-13-2024 10:15-0400 Body height 160.[address] Rg Menchaca MD Work Phone: 5(274)874-591317 [place] [address] 08-13-2024 10:15-0400 Body mass index (BMI) [Ratio] 24.9 kg/m2 Dr. Rg Menchaca MD Work Phone: 7(464)517-091407 [place] [address] 08-13-2024 10:15-0400 Body temperature 96.6 [degF] Dr. Rg Menchaca MD Work Phone: 8(618)881-301707 [place] [address] 08-13-2024 10:15-0400 Body weight 63.[address] Rg Menchaca MD Work Phone: 1(731)279-149307 [place] [address] 08-13-2024 10:15-0400 Diastolic blood pressure 72 mm[Hg] Dr. Rg Menchaca MD Work Phone: 2(466)112-893307 [place] [address] 08-13-2024 10:15-0400 Heart rate 73 /min Dr. Rg Menchaca MD Work Phone: 3(193)544-844707 [place] [address] 08-13-2024 10:15-0400 Respiratory rate 16 /min Dr. Rg Menchaca MD Work Phone: 1(119)915-167607 [place] [address] 08-13-2024 10:15-0400 SaO2% (BldA) [Mass fraction] 95 % Dr. Rg Menchaca MD Work Phone: 7(930)421-254017 [place] [address] 08-13-2024 10:15-0400 Systolic blood pressure 121 mm[Hg] Dr. Rg Menchaca MD Work Phone: 6(548)519-562807 [place] [address] 08-12-2024 08:09-0400 Body height 160.[address] Rg Menchaca MD Work Phone: 6(646)267-743107 [place] [address] 08-12-2024 08:09-0400 Body mass index (BMI) [Ratio] 24.9 kg/m2 Dr. Rg Menchaca MD Work Phone: 1(355)996-311907 [place] [address] 08-12-2024 08:09-0400 Body temperature 96.8 [degF] Dr. Rg Menchaca MD Work Phone: 2(068)288-584917 [place] [address] 08-12-2024 08:09-0400 Body weight 63.[address] Rg Menchaca MD Work Phone: [facility] 08-12-2024 08:09-0400 Diastolic blood pressure 59 mm[Hg] Dr. Rg Menchaca MD Work Phone: 6(466)494-039707 [place] [address] 08-12-2024 08:09-0400 Heart rate 79 /min Dr. Rg Menchaca MD Work Phone: 9(608)353-571907 [place] [address] 08-12-2024 08:09-0400 Respiratory rate 16 /min Dr. Rg Menchaca MD Work Phone: 9(099)571-731707 [place] [address] 08-12-2024 08:09-0400 SaO2% (BldA) [Mass fraction] 95 % Dr. Rg Menchaca MD Work Phone: 4(169)990-148607 [place] [address] 08-12-2024 08:09-0400 Systolic blood pressure 104 mm[Hg] Dr. Rg Menchaca MD Work Phone: 0(705)598-439407 [place] [address] 08-11-2024 08:01-0400 Body height 160.[address] Rg Menchaca MD Work Phone: 0(144)315-588607 [place] [address] 08-11-2024 08:01-0400 Body mass index (BMI) [Ratio] 24.9 kg/m2 Dr. Rg Menchaca MD Work Phone: 3(349)908-458017 [place] [address] 08-11-2024 08:01-0400 Body temperature 96.8 [degF] Dr. Rg Menchaca MD Work Phone: 4(339)414-388107 [place] [address] 08-11-2024 08:01-0400 Body weight 63.[address] Rg Menchaca MD Work Phone: 7(733)519-399307 [place] [address] 08-11-2024 08:01-0400 Diastolic blood pressure 73 mm[Hg] Dr. Rg Menchaca MD Work Phone: 1(587)151-318407 [place] [address] 08-11-2024 08:01-0400 Heart rate 83 /min Dr. Rg Menchaca MD Work Phone: [facility] 08-11-2024 08:01-0400 Respiratory rate 16 /min Dr. Rg Menchaca MD Work Phone: 2(932)419-813107 [place] [address] 08-11-2024 08:01-0400 SaO2% (BldA) [Mass fraction] 94 % Dr. Rg Menchaca MD Work Phone: 7(021)339-241917 [place] [address] 08-11-2024 08:01-0400 Systolic blood pressure 116 mm[Hg] Dr. Rg Menchaca MD Work Phone: 3(878)185-272207 [place] [address] 07-16-2024 08:39-0500 Body mass index (BMI) [Ratio] 24.3 kg/m2 Dr. Rg Menchaca MD Work Phone: 3(781)844-925707 [place] [address] 07-16-2024 08:39-0500 Body temperature 96.6 [degF] Dr. Rg Menchaca MD Work Phone: 4(287)[phone] [place] [address] 07-16-2024 08:39-0500 Body weight 62.[address] Rg Menchaca MD Work Phone: 8(276)690-482607 [place] [address] 07-16-2024 08:39-0500 Diastolic blood pressure 71 mm[Hg] Dr. Rg Menchaca MD Work Phone: 0(600)266-868807 [place] [address] 07-16-2024 08:39-0500 Heart rate 80 /min Dr. Rg Menchaca MD Work Phone: 8(229)372-188907 [place] [address] 07-16-2024 08:39-0500 Respiratory rate 16 /min Dr. Rg Menchaca MD Work Phone: 9(450)586-939738 [address] 07-16-2024 08:39-0500 SaO2% (BldA) [Mass fraction] 96 % Dr. Rg Menchaca MD Work Phone: 0(055)130-798607 [place] [address] 07-16-2024 08:39-0500 Systolic blood pressure 133 mm[Hg] Dr. Rg Menchaca MD Work Phone: 0(113)952-826607 [place] [address] 07-15-2024 13:02-0500 Body temperature 96.5 [degF] Dr. Rg Menchaca MD Work Phone: [facility] 07-15-2024 13:02-0500 Diastolic blood pressure 65 mm[Hg] Dr. Rg Menchaca MD Work Phone: 6(736)881-964107 [place] [address] 07-15-2024 13:02-0500 Heart rate 75 /min Dr. Rg Menchaca MD Work Phone: 8(088)629-323607 [place] [address] 07-15-2024 13:02-0500 Systolic blood pressure 108 mm[Hg] Dr. Rg Menchaca MD Work Phone: 1(031)551-887507 [place] [address] 07-15-2024 08:35-0500 Body mass index (BMI) [Ratio] 24.3 kg/m2 Dr. Rg Menchaca MD Work Phone: 1(182)121-153107 [place] [address] 07-15-2024 08:35-0500 Body weight 62.[address] Rg Menchaca MD Work Phone: 8(826)182-841107 [place] [address] 07-15-2024 08:35-0500 Respiratory rate 16 /min Dr. Rg Menchaca MD Work Phone: 2(640)763-221507 [place] [address] 07-15-2024 08:35-0500 SaO2% (BldA) [Mass fraction] 95 % Dr. Rg Menchaca MD Work Phone: 4(794)323-629007 [place] [address] 07-14-2024 08:22-0500 Body mass index (BMI) [Ratio] 24.3 kg/m2 Dr. Rg Menchaca MD Work Phone: 9(860)413-502007 [place] [address] 07-14-2024 08:22-0500 Body temperature 97.1 [degF] Dr. Rg Menchaca MD Work Phone: 5(871)214-745307 [place] [address] 07-14-2024 08:22-0500 Body weight 62.[address] Rg Menchaca MD Work Phone: 6(782)720-121507 [place] [address] 07-14-2024 08:22-0500 Diastolic blood pressure 70 mm[Hg] Dr. Rg Menchaca MD Work Phone: 4(152)441-489907 [place] [address] 07-14-2024 08:22-0500 Heart rate 83 /min Dr. Rg Menchaca MD Work Phone: [facility] 07-14-2024 08:22-0500 Respiratory rate 16 /min Dr. Rg Menchaca MD Work Phone: 6(333)427-005207 [place] [address] 07-14-2024 08:22-0500 SaO2% (BldA) [Mass fraction] 95 % Dr. Rg Menchaca MD Work Phone: 2(101)169-735507 [place] [address] 07-14-2024 08:22-0500 Systolic blood pressure 102 mm[Hg] Dr. Rg Menchaca MD Work Phone: 1(934)716-507807 [place] [address] 06-18-2024 08:30-0500 Body temperature 96.9 [degF] Dr. Rg Menchaca MD Work Phone: 8(954)158-467407 [place] [address] 06-18-2024 08:30-0500 Diastolic blood pressure 61 mm[Hg] Dr. Rg Menchaca MD Work Phone: 6(921)580-945107 [place] [address] 06-18-2024 08:30-0500 Heart rate 71 /min Dr. Rg Menchaca MD Work Phone: 7(644)598-627507 [place] [address] 06-18-2024 08:30-0500 Respiratory rate 16 /min Dr. Rg Menchaca MD Work Phone: 7(768)812-638507 [place] [address] 06-18-2024 08:30-0500 SaO2% (BldA) [Mass fraction] 95 % Dr. Rg Menchaca MD Work Phone: 0(372)875-601207 [place] [address] 06-18-2024 08:30-0500 Systolic blood pressure 114 mm[Hg] Dr. Rg Menchaca MD Work Phone: 8(944)919-554107 [place] [address] 06-17-2024 08:43-0500 Body mass index (BMI) [Ratio] 24.3 kg/m2 Dr. Rg Menchaca MD Work Phone: 8(204)112-683707 [place] [address] 06-17-2024 08:43-0500 Body temperature 96.7 [degF] Dr. Rg Menchaca MD Work Phone: 7(246)984-552807 [place] [address] 06-17-2024 08:43-0500 Body weight 62.[address] Rg Menchaca MD Work Phone: 3(958)059-073517 [place] [address] 06-17-2024 08:43-0500 Diastolic blood pressure 62 mm[Hg] Dr. Rg Menchaca MD Work Phone: 5(051)630-383107 [place] [address] 06-17-2024 08:43-0500 Heart rate 78 /min Dr. Rg Menchaca MD Work Phone: 1(757)757-536507 [place] [address] 06-17-2024 08:43-0500 Respiratory rate 16 /min Dr. Rg Menchaca MD Work Phone: 0(224)729-033207 [place] [address] 06-17-2024 08:43-0500 SaO2% (BldA) [Mass fraction] 92 % Dr. Rg Menchaca MD Work Phone: 8(633)449-479607 [place] [address] 06-17-2024 08:43-0500 Systolic blood pressure 108 mm[Hg] Dr. Rg Menchaca MD Work Phone: 1(242)862-549907 [place] [address] 06-16-2024 08:20-0500 Body mass index (BMI) [Ratio] 23.4 kg/m2 Dr. Rg Menchaca MD Work Phone: 3(023)277-015507 [place] [address] 06-16-2024 08:20-0500 Body temperature 97.5 [degF] Dr. Rg Mecnhaca MD Work Phone: 0(103)936-833007 [place] [address] 06-16-2024 08:20-0500 Body weight [address] Rg Menchaca MD Work Phone: 0(744)323-576507 [place] [address] 06-16-2024 08:20-0500 Diastolic blood pressure 68 mm[Hg] Dr. Rg Menchaca MD Work Phone: 7(604)844-344507 [place] [address] 06-16-2024 08:20-0500 Heart rate 82 /min Dr. Rg Menchaca MD Work Phone: 8(359)324-893107 [place] [address] 06-16-2024 08:20-0500 Respiratory rate 16 /min Dr. Rg Menchaca MD Work Phone: 5(106)169-662307 [place] [address] 06-16-2024 08:20-0500 SaO2% (BldA) [Mass fraction] 95 % Dr. Rg Menchaca MD Work Phone: [facility] 06-16-2024 08:20-0500 Systolic blood pressure 110 mm[Hg] Dr. Rg Menchaca MD Work Phone: 9(082)078-567238 [address] 05-22-2024 09:00-0500 Body temperature 97.2 [degF] Dr. Rg Menchaca MD Work Phone: 5(452)891-007238 [address] 05-22-2024 09:00-0500 Diastolic blood pressure 84 mm[Hg] Dr. Rg Menchaca MD Work Phone: 2(704)314-940317 [place] [address] 05-22-2024 09:00-0500 Heart rate 65 /min Dr. Rg Menchaca MD Work Phone: 5(997)271-053007 [place] [address] 05-22-2024 09:00-0500 Respiratory rate 16 /min Dr. Rg Menchaca MD Work Phone: 9(412)456-014707 [place] [address] 05-22-2024 09:00-0500 SaO2% (BldA) [Mass fraction] 96 % Dr. Rg Menchaca MD Work Phone: 7(115)297-044317 [place] [address] 05-22-2024 09:00-0500 Systolic blood pressure 112 mm[Hg] Dr. Rg Menchaca MD Work Phone: 1(183)292-300507 [place] [address] 05-21-2024 08:39-0500 Body temperature 96.9 [degF] Dr. Rg Menchaca MD Work Phone: 1(330)300-717838 [address] 05-21-2024 08:39-0500 Diastolic blood pressure 60 mm[Hg] Dr. Rg Menchaca MD Work Phone: 4(949)044-997017 [place] [address] 05-21-2024 08:39-0500 Heart rate 74 /min Dr. Rg Menchaca MD Work Phone: 8(960)146-669338 [address] 05-21-2024 08:39-0500 Respiratory rate 16 /min Dr. Rg Menchaca MD Work Phone: 1(256)322-701417 [place] [address] 05-21-2024 08:39-0500 SaO2% (BldA) [Mass fraction] 96 % Dr. Rg Menchaca MD Work Phone: 6(096)469-328507 [place] [address] 05-21-2024 08:39-0500 Systolic blood pressure 105 mm[Hg] Dr. Rg Menchaca MD Work Phone: 0(237)304-422607 [place] [address] 05-19-2024 08:26-0500 Body mass index (BMI) [Ratio] 25 kg/m2 Dr. Rg Menchaca MD Work Phone: 4(678)816-801107 [place] [address] 05-19-2024 08:26-0500 Body temperature 98.6 [degF] Dr. Rg Menchaca MD Work Phone: 5(507)208-836407 [place] [address] 05-19-2024 08:26-0500 Body weight 63.[address] Rg Menchaca MD Work Phone: 2(468)502-639207 [place] [address] 05-19-2024 08:26-0500 Diastolic blood pressure 79 mm[Hg] Dr. Rg Menchaca MD Work Phone: 4(060)871-210607 [place] [address] 05-19-2024 08:26-0500 Heart rate 88 /min Dr. Rg Menchaca MD Work Phone: 8(838)664-845707 [place] [address] 05-19-2024 08:26-0500 Respiratory rate 16 /min Dr. Rg Menchaca MD Work Phone: 0(018)024-761907 [place] [address] 05-19-2024 08:26-0500 SaO2% (BldA) [Mass fraction] 96 % Dr. Rg Menchaca MD Work Phone: 0(826)274-030107 [place] [address] 05-19-2024 08:26-0500 Systolic blood pressure 114 mm[Hg] Dr. Rg Menchaca MD Work Phone: 7(106)815-905007 [place] [address] 04-23-2024 08:22-0500 Body mass index (BMI) [Ratio] 24.5 kg/m2 Dr. Rg Menchaca MD Work Phone: 4(006)541-067307 [place] [address] 04-23-2024 08:22-0500 Body temperature 97 [degF] Dr. Rg Menchaca MD Work Phone: 4(201)507-260707 [place] [address] 04-23-2024 08:22-0500 Body weight 62.[address] Rg Menchaca MD Work Phone: 7(786)368-237007 [place] [address] 04-23-2024 08:22-0500 Diastolic blood pressure 71 mm[Hg] Dr. Rg Menchaca MD Work Phone: 6(165)614-464138 [address] 04-23-2024 08:22-0500 Heart rate 76 /min Dr. Rg Menchaca MD Work Phone: 2(657)057-145907 [place] [address] 04-23-2024 08:22-0500 Respiratory rate 16 /min Dr. Rg Menchaca MD Work Phone: 5(730)168-824407 [place] [address] 04-23-2024 08:22-0500 SaO2% (BldA) [Mass fraction] 95 % Dr. Rg Menchaca MD Work Phone: 5(450)303-138107 [place] [address] 04-23-2024 08:22-0500 Systolic blood pressure 117 mm[Hg] Dr. Rg Menchaca MD Work Phone: 0(993)402-071907 [place] [address] 04-22-2024 08:27-0500 Body mass index (BMI) [Ratio] 24.5 kg/m2 Dr. Rg Menchaca MD Work Phone: 1(131)225-929407 [place] [address] 04-22-2024 08:27-0500 Body temperature 97.2 [degF] Dr. Rg Menchaca MD Work Phone: 5(864)424-624807 [place] [address] 04-22-2024 08:27-0500 Body weight 62.[address] Rg Menchaca MD Work Phone: 7(531)951-356107 [place] [address] 04-22-2024 08:27-0500 Diastolic blood pressure 68 mm[Hg] Dr. Rg Menchaca MD Work Phone: 2(368)825-706607 [place] [address] 04-22-2024 08:27-0500 Heart rate 72 /min Dr. Rg Menchaca MD Work Phone: 4(888)738-619907 [place] [address] 04-22-2024 08:27-0500 Respiratory rate 16 /min Dr. Rg Menchaca MD Work Phone: 2(229)474-660638 [address] 04-22-2024 08:27-0500 SaO2% (BldA) [Mass fraction] 97 % Dr. Rg Menchaca MD Work Phone: 6(194)025-985738 [address] 04-22-2024 08:27-0500 Systolic blood pressure 115 mm[Hg] Dr. Rg Menchaca MD Work Phone: [facility] 04-21-2024 08:25-0500 Body mass index (BMI) [Ratio] 24.4 kg/m2 Dr. Rg Menchaca MD Work Phone: [facility] 04-21-2024 08:25-0500 Body temperature 96.5 [degF] Dr. Rg Menchaca MD Work Phone: [facility] 04-21-2024 08:25-0500 Body weight 62.[address] Rg Menchaca MD Work Phone: [facility] 04-21-2024 08:25-0500 Diastolic blood pressure 57 mm[Hg] Dr. Rg Menchaca MD Work Phone: [facility] 04-21-2024 08:25-0500 Heart rate 77 /min Dr. Rg Menchaca MD Work Phone: [facility] 04-21-2024 08:25-0500 Respiratory rate 16 /min Dr. Rg Menchaca MD Work Phone: [facility] 04-21-2024 08:25-0500 SaO2% (BldA) [Mass fraction] 94 % Dr. Rg Menchaca MD Work Phone: [facility] 04-21-2024 08:25-0500 Systolic blood pressure 104 mm[Hg] Dr. Rg Menchaca MD Work Phone: [facility] 02-05-2024 11:19-0400 Diastolic blood pressure 68 mm[Hg] Windy Yuen MD Work Phone: [facility] 02-05-2024 11:19-0400 Heart rate 81 /min Windy Yuen MD Work Phone: [facility] 02-05-2024 11:19-0400 SaO2% (BldA) [Mass fraction] 94 % Windy Yuen MD Work Phone: [facility] 02-05-2024 11:19-0400 Systolic blood pressure 116 mm[Hg] Windy Yuen MD Work Phone: [facility] 09-13-2023 08:36-0400 Body height 160.02 cm [facility] 09-13-2023 08:36-0400 Body temperature 98.1 [degF] [facility] 09-13-2023 08:36-0400 Diastolic blood pressure 68 mm[Hg] [facility] 09-13-2023 08:36-0400 Heart rate 77 /min [facility] 09-13-2023 08:36-0400 Respiratory rate 16 /min [facility] 09-13-2023 08:36-0400 SaO2% (BldA) [Mass fraction] 94 % [facility] 09-13-2023 08:36-0400 Systolic blood pressure 115 mm[Hg] [facility] 09-12-2023 09:03-0400 Body height 160.02 cm [facility] 09-12-2023 09:03-0400 Body mass index (BMI) [Ratio] 23.4 kg/m2 [facility] 09-12-2023 09:03-0400 Body temperature 98.5 [degF] [facility] 09-12-2023 09:03-0400 Body weight 60 kg [facility] 09-12-2023 09:03-0400 Diastolic blood pressure 75 mm[Hg] [facility] 09-12-2023 09:03-0400 Heart rate 70 /min [facility] 09-12-2023 09:03-0400 Respiratory rate 16 /min [facility] 09-12-2023 09:03-0400 SaO2% (BldA) [Mass fraction] 95 % [facility] 09-12-2023 09:03-0400 Systolic blood pressure 130 mm[Hg] [facility] 09-11-2023 08:32-0400 Body height 160.02 cm [facility] 09-11-2023 08:32-0400 Body temperature 98.3 [degF] [facility] 09-11-2023 08:32-0400 Diastolic blood pressure 64 mm[Hg] [facility] 09-11-2023 08:32-0400 Heart rate 77 /min [facility] 09-11-2023 08:32-0400 Respiratory rate 16 /min [facility] 09-11-2023 08:32-0400 SaO2% (BldA) [Mass fraction] 95 % [facility] 09-11-2023 08:32-0400 Systolic blood pressure 109 mm[Hg] [facility] 09-10-2023 08:39-0400 Body height 160.02 cm [facility] 09-10-2023 08:39-0400 Body mass index (BMI) [Ratio] 23.7 kg/m2 [facility] 09-10-2023 08:39-0400 Body temperature 98 [degF] [facility] 09-10-2023 08:39-0400 Body weight 60.78 kg [facility] 09-10-2023 08:39-0400 Diastolic blood pressure 67 mm[Hg] [facility] 09-10-2023 08:39-0400 Heart rate 80 /min [facility] 09-10-2023 08:39-0400 Respiratory rate 16 /min [facility] 09-10-2023 08:39-0400 SaO2% (BldA) [Mass fraction] 96 % [facility] 09-10-2023 08:39-0400 Systolic blood pressure 115 mm[Hg] [facility] 09-09-2023 13:39-0400 Body temperature 97.1 [degF] [facility] 09-09-2023 13:39-0400 Diastolic blood pressure 65 mm[Hg] [facility] 09-09-2023 13:39-0400 Heart rate 72 /min [facility] 09-09-2023 13:39-0400 Respiratory rate 16 /min [facility] 09-09-2023 13:39-0400 SaO2% (BldA) [Mass fraction] 97 % [facility] 09-09-2023 13:39-0400 Systolic blood pressure 110 mm[Hg] [facility] 09-09-2023 08:39-0400 Body height 160.02 cm [facility] 07-31-2023 16:35-0400 Body height 160.7 cm Windy Yuen MD Work Phone: [facility] 07-31-2023 16:35-0400 Body weight 59.88 kg Windy Yuen MD Work Phone: [facility] 07-31-2023 16:35-0400 Diastolic blood pressure 50 mm[Hg] Windy Yuen MD Work Phone: [facility] 07-31-2023 16:35-0400 Heart rate 72 /min Windy Yuen MD Work Phone: [facility] 07-31-2023 16:35-0400 SaO2% (BldA) [Mass fraction] 96 % Windy Yuen MD Work Phone: [facility] 07-31-2023 16:35-0400 Systolic blood pressure 91 mm[Hg] Windy Yuen MD Work Phone: [facility] 04-29-2022 04:53-0500 Diastolic blood pressure 82 mm[Hg] [facility] Work Phone: 04-29-2022 04:53-0500 Heart rate 70 /min [facility] Work Phone: 04-29-2022 04:53-0500 Respiratory rate 16 /min [facility] Work Phone: 04-29-2022 04:53-0500 SaO2% (BldA) [Mass fraction] 98 % [facility] Work Phone: 04-29-2022 04:53-0500 Systolic blood pressure 124 mm[Hg] [facility] Work Phone: 04-28-2022 21:57-0500 Body height 160.02 cm [facility] Work Phone: 04-28-2022 21:57-0500 Body mass index (BMI) [Ratio] 24.1 kg/m2 [facility] Work Phone: 04-28-2022 21:57-0500 Body temperature 96.2 [degF] [facility] Work Phone: 04-28-2022 21:57-0500 Body weight 61.87 kg [facility] Work Phone: 03-01-2022 13:29-0400 Diastolic blood pressure 63 mm[Hg] [facility] Work Phone: 03-01-2022 13:29-0400 Heart rate 77 /min [facility] Work Phone: 03-01-2022 13:29-0400 Respiratory rate 18 /min [facility] Work Phone: 03-01-2022 13:29-0400 SaO2% (BldA) [Mass fraction] 93 % [facility] Work Phone: 03-01-2022 13:29-0400 Systolic blood pressure 102 mm[Hg] [facility] Work Phone: 03-01-2022 10:29-0400 Body temperature 97.2 [degF] [facility] Work Phone: 03-01-2022 10:25-0400 Body mass index (BMI) [Ratio] 21.9 kg/m2 [facility] Work Phone: 03-01-2022 10:25-0400 Body weight 56.1 kg [facility] Work Phone: 11-15-2021 11:23-0400 Body weight 55.79 kg La Nena Lala MD Work Phone: [facility] 11-15-2021 11:23-0400 Diastolic blood pressure 67 mm[Hg] La Nena Lala MD Work Phone: [facility] 11-15-2021 11:23-0400 Heart rate 85 /min La Nena Lala MD Work Phone: [facility] 11-15-2021 11:23-0400 Respiratory rate 16 /min La Nena Lala MD Work Phone: [facility] 11-15-2021 11:23-0400 SaO2% (BldA) [Mass fraction] 99 % La Nena Lala MD Work Phone: [facility] 11-15-2021 11:23-0400 Systolic blood pressure 105 mm[Hg] La Nena Lala MD Work Phone: [facility] 08-30-2021 20:07-0400 Diastolic blood pressure 74 mm[Hg] Dr. Rg Menchaca Work Phone: [facility] Work Phone: 08-30-2021 20:07-0400 Heart rate 69 /min Dr. Rg Menchaca Work Phone: [facility] Work Phone: 08-30-2021 20:07-0400 Respiratory rate 18 /min Dr. Rg Menchaca Work Phone: [facility] Work Phone: 08-30-2021 20:07-0400 SaO2% (BldA) [Mass fraction] 96 % Dr. Rg Menchaca Work Phone: [facility] Work Phone: 08-30-2021 20:07-0400 Systolic blood pressure 94 mm[Hg] Dr. Rg Menchaca Work Phone: [facility] Work Phone: 08-30-2021 18:05-0400 Body height 154.[address] Rg Menchaca Work Phone: [facility] Work Phone: 08-30-2021 18:05-0400 Body mass index (BMI) [Ratio] 25.9 kg/m2 Dr. Rg Menchaca Work Phone: [facility] Work Phone: 08-30-2021 18:05-0400 Body temperature 96.8 [degF] Dr. Rg Menchcaa Work Phone: [facility] Work Phone: 08-30-2021 18:05-0400 Body weight 62.[address] Rg Mecnhaca Work Phone: [facility] Work Phone: 08-19-2021 14:30-0400 Body temperature 98.9 [degF] Dr. Rg Menchaca Work Phone: [facility] Work Phone: 08-19-2021 14:30-0400 Diastolic blood pressure 68 mm[Hg] Dr. Rg Menchaca Work Phone: [facility] Work Phone: 08-19-2021 14:30-0400 Heart rate 88 /min Dr. Rg Menchaca Work Phone: [facility] Work Phone: 08-19-2021 14:30-0400 Respiratory rate 18 /min Dr. Rg Menchaca Work Phone: [facility] Work Phone: 08-19-2021 14:30-0400 SaO2% (BldA) [Mass fraction] 96 % Dr. Rg Menchaca Work Phone: [facility] Work Phone: 08-19-2021 14:30-0400 Systolic blood pressure 104 mm[Hg] Dr. Rg Menchaca Work Phone: [facility] Work Phone: 08-19-2021 12:54-0400 Body height 154.[address] Rg Menchaca Work Phone: [facility] Work Phone: 08-19-2021 12:54-0400 Body weight 53.[address] Rg Menchaca Work Phone: [facility] Work Phone: 08-18-2021 21:27-0400 Body mass index (BMI) [Ratio] 22.2 kg/m2 Dr. Rg Menchaca Work Phone: [facility] Work Phone: 08-18-2021 20:57-0400 Body temperature 98 [degF] [facility] Work Phone: 08-18-2021 20:57-0400 Diastolic blood pressure 62 mm[Hg] [facility] Work Phone: 08-18-2021 20:57-0400 Heart rate 74 /min [facility] Work Phone: 08-18-2021 20:57-0400 Respiratory rate 16 /min [facility] Work Phone: 08-18-2021 20:57-0400 SaO2% (BldA) [Mass fraction] 98 % [facility] Work Phone: 08-18-2021 20:57-0400 Systolic blood pressure 106 mm[Hg] [facility] Work Phone: 08-18-2021 17:31-0400 Body height 159.99 cm [facility] Work Phone: 08-18-2021 17:31-0400 Body mass index (BMI) [Ratio] 21.4 kg/m2 [facility] Work Phone: 08-18-2021 17:31-0400 Body weight 54.9 kg [facility] Work Phone: Encounters Encounter Date Encounter Type Care Provider Facility Start: 12-02-2024 End: 12-02-[address] Rg Menchaca MD Work Phone: -[facility] Start: 12-02-2024 End: 12-02-[address] Windy Yuen MD -[facility] Work Phone: Start: 12-01-2024 End: 12-01-[address] Rg Menchaca MD Work Phone: [facility] Start: 12-01-2024 End: 12-01-[address] Windy Yuen MD -[facility] Work Phone: Start: 11-11-2024 End: 11-11-2024 ambulatory WINDY YUEN Facility:[facility] Start: 11-11-2024 End: 11-11-2024 Patient encounter procedure Windy Yuen MD Work Phone: Neurology Comment on above: Stiff person syndrom e Start: 11-05-2024 End: 11-05-[address] Windy Yuen MD -[facility] Work Phone: Start: 11-05-2024 End: 11-05-[address] Rg Menchaca MD Work Phone: [facility] Work Phone: Start: 11-04-2024 End: 11-04-[address] Windy Yuen MD -[facility] Work Phone: Start: 11-04-2024 End: 11-04-[address] Rg Menchaca MD Work Phone: [facility] Work Phone: Start: 11-03-2024 End: 11-03-[address] Windy Yuen MD -[facility] Work Phone: Start: 11-03-2024 End: 11-03-[address] Rg Menchaca MD Work Phone: [facility] Work Phone: Start: 10-08-2024 End: 10-08-[address] Windy Yuen MD -[facility] Work Phone: Start: 10-08-2024 End: 10-08-2024 ambulatory Windy Yuen Facility:[facility] Start: 10-07-2024 End: 10-07-[address] Windy Yuen MD -[facility] Work Phone: Start: 10-07-2024 End: 10-07-[address] Rg Menchaca MD Work Phone: [facility] Work Phone: Start: 10-06-2024 End: 10-06-[address] Windy Yuen MD [facility] Work Phone: Start: 10-06-2024 End: 10-06-[address] Rg Menchaca MD Work Phone: [facility] Work Phone: Start: 09-10-2024 End: 09-10-[address] Windy Yuen MD [facility] Work Phone: Start: 09-10-2024 End: 09-10-[address] Rg Menchaca MD Work Phone: [facility] Work Phone: Start: 09-09-2024 End: 09-09-[address] Windy Yuen MD -[facility] Work Phone: Start: 09-09-2024 End: 09-09-[address] Rg Menchaca MD Work Phone: [facility] Work Phone: Start: 09-08-2024 End: 09-08-[address] Windy Yuen MD -[facility] Work Phone: Start: 09-08-2024 End: 09-08-2024 ambulatory Windy Yuen Facility:[facility] Start: 08-13-2024 End: 08-13-[address] Windy Yuen MD -[facility] Work Phone: Start: 08-13-2024 End: 08-13-[address] Rg Menchaca MD Work Phone: [facility] Work Phone: Start: 08-12-2024 End: 08-12-[address] Windy Yuen MD -Medical Out Work Phone: Start: 08-12-2024 End: 08-12-[address] Rg Menchaca MD Work Phone: [facility] Work Phone: Start: 08-11-2024 End: 08-11-[address] Windy Yuen MD -Medical Out Work Phone: Start: 08-11-2024 End: 08-11-[address] Rg Menchaca MD Work Phone: [facility] Work Phone: Start: 07-16-2024 End: 07-16-[address] Windy Yuen MD -Medical Out Work Phone: Start: 07-16-2024 End: 07-16-2024 ambulatory [facility] Start: 07-15-2024 End: 07-15-[address] Windy Yuen MD -Medical Out Work Phone: Start: 07-15-2024 End: 07-15-2024 [facility] Start: 07-14-2024 End: 07-14-[address] Windy Yuen MD -Medical Out Work Phone: Start: 07-14-2024 End: 07-14-2024 [facility] Start: 06-18-2024 End: 06-18-[address] Windy Yuen MD -Medical Out Work Phone: Start: 06-18-2024 End: 06-18-2024 [facility] Start: 06-17-2024 End: 06-17-[address] Windy Yuen MD -Medical Out Work Phone: Start: 06-17-2024 End: 06-17-2024 ambulatory [facility] Facility:[facility] Start: 06-16-2024 End: 06-16-[address] Windy Yuen MD -Medical Out Work Phone: Start: 06-16-2024 End: 06-16-2024 Located within [facility] Start: 05-22-2024 End: 05-22-[address] Windy Yuen MD -Medical Out Work Phone: Start: 05-22-2024 End: 05-22-2024 ambulatory [facility] Facility:[facility] Start: 05-21-2024 End: 05-21-[address] Windy Yuen MD -Medical Out Work Phone: Start: 05-21-2024 End: 05-21-2024 Located within [facility] Start: 05-19-2024 End: 05-19-[address] Windy Yuen MD -Medical Out Work Phone: Start: 05-19-2024 End: 05-19-2024 Located within [facility] Start: 04-23-2024 End: 04-23-[address] Windy Yuen MD -Medical Out Work Phone: Start: 04-23-2024 End: 04-23-2024 ambulatory [facility] Facility:[facility] Start: 04-22-2024 End: 04-22-[address] Windy Yuen MD -Medical Out Work Phone: Start: 04-22-2024 End: 04-22-2024 ambulatory [facility] Facility:[facility] Start: 04-21-2024 End: 04-21-[address] Windy Yuen MD -Medical Out Work Phone: Start: 04-21-2024 End: 04-21-2024 ambulatory Windy Spolter Facility:[facility] Start: 03-26-2024 End: 03-26-2024 ambulatory Windy Spolter Facility:[facility] Start: 03-25-2024 End: 03-25-2024 ambulatory Windy Spolter Facility:[facility] Start: 03-24-2024 End: 03-24-2024 ambulatory Windy Spolter Facility:[facility] Start: 02-27-2024 End: 02-27-2024 ambulatory Windy Spolter Facility:[facility] Start: 02-26-2024 End: 02-26-2024 ambulatory Windy Spolter Facility:[facility] Start: 02-25-2024 End: 02-25-2024 ambulatory Windy Spolter Facility:[facility] Start: 02-06-2024 End: 02-06-2024 Telephone encounter Windy Yuen MD Work Phone: Neurology Comment on above: Orders (IVIG) Start: 02-05-2024 End: 02-05-2024 ambulatory WINDY S SPOLTER Facility:[facility] Start: 02-05-2024 End: 02-05-2024 Patient encounter procedure Windy Yuen MD Work Phone: Neurology Comment on above: Stiff person syndrom e Start: 01-31-2024 End: 01-31-2024 ambulatory Windy Spolter Facility:[facility] Start: 01-30-2024 End: 01-30-2024 ambulatory Windy Spolter Facility:[facility] Start: 01-29-2024 End: 01-29-2024 ambulatory Windy Spolter Facility:[facility] Start: 01-28-2024 End: 01-28-2024 ambulatory Windy Spolter Facility:[facility] Start: 01-27-2024 End: 01-27-2024 ambulatory Windy Spolter Facility:[facility] Start: 01-03-2024 End: 01-03-2024 ambulatory Windy Spolter Facility:[facility] Start: 01-02-2024 End: 01-02-2024 ambulatory Windy Spolter Facility:[facility] Start: 01-01-2024 End: 01-01-2024 ambulatory Windy Spolter Facility:[facility] Start: 12-31-2023 End: 12-31-2023 ambulatory Windy Spolter Facility:[facility] Start: 12-30-2023 End: 12-30-2023 ambulatory Windy Spolter Facility:[facility] Start: 12-06-2023 End: 12-06-2023 ambulatory Wnidy Spolter Facility:[facility] Start: 12-05-2023 End: 12-05-2023 ambulatory Windy Spolter Facility:[facility] Start: 12-04-2023 End: 12-04-2023 ambulatory Windy Spolter Facility:[facility] Start: 12-03-2023 End: 12-03-2023 ambulatory Windy Spolter Facility:[facility] Start: 12-02-2023 End: 12-02-2023 ambulatory Windy Spolter Facility:[facility] Start: 11-24-2023 Telephone encounter Windy Yuen MD Work Phone: Neurology Comment on above: Appointment (Update faxed to [facility] for appointment 02/05/24) Start: 11-14-2023 Telephone encounter Windy Yuen MD Work Phone: Neurology Start: 10-29-2023 Telephone encounter Windy Yuen MD Work Phone: Neurology Comment on above: Appointment (Appoint ment Update Faxed to [facility] for 12/17/23) Start: 10-15-2023 Telephone encounter Windy Yuen MD Work Phone: Neurology Comment on above: Patient Update Start: 09-25-2023 Telephone encounter Windy Yuen MD Work Phone: Neurology Comment on above: Appointment Start: 09-18-2023 Telephone encounter Windy Yuen MD Work Phone: Neurology Comment on above: Medication Question Start: 09-13-2023 End: 09-13-2023 ambulatory [facility] Work Phone: Start: 09-13-2023 End: 09-13-2023 Patient encounter procedure [facility]-Medical Out Work Phone: Start: 09-12-2023 End: 09-12-2023 ambulatory [facility] Work Phone: Start: 09-12-2023 End: 09-12-2023 Patient encounter procedure [facility]-Medical Out Work Phone: Start: 09-11-2023 End: 09-11-2023 ambulatory [facility] Work Phone: Start: 09-11-2023 End: 09-11-2023 Patient encounter procedure [facility]-Medical Out Work Phone: Start: 09-10-2023 End: 09-10-2023 ambulatory [facility] Work Phone: Start: 09-10-2023 End: 09-10-2023 Patient encounter procedure [facility]-Medical Out Work Phone: Start: 09-09-2023 End: 09-09-2023 ambulatory [facility] Work Phone: Start: 09-09-2023 End: 09-09-2023 Patient encounter procedure [facility]-Medical Out Work Phone: Start: 08-13-2023 Telephone encounter Windy Yuen MD Work Phone: [facility] [place] Start: 07-31-2023 End: 07-31-2023 Patient encounter procedure Windy Yuen MD Work Phone: Neurology Comment on above: Stiff person syndrom e (Primary Dx) Start: 2023 Telephone encounter Luis Eduardo Clemons [...] patient La Nena Lala MD Work Phone: [facility] Start: 05-31-2022 Telephone encounter La Nena Keen i, MD Work Phone: Endocrinology Comment on above: Appointment (Resched ule ) Start: 04-28-2022 End: 04-29-2022 [facility] Start: 04-18-2022 ambulatory UNKNOWN PROVIDER Facili ty:[facility] Start: 04-18-2022 End: 04-18-2022 Patient encounter procedure Maryan Loving DPM Work Phone: Podiatry Comment on above: Cavovarus deformity of foot, acquired, right (Primary Dx); Other osteoporosis without current pathological fracture; Hammertoe, bilateral Start: 04-18-2022 End: 04-18-2022 Subsequent hospital visit by physician [facility] Work Phone: Radiology Comment on above: Pain [R52] Start: 03-08-2022 ambulatory Facility:[facility] Start: 03-01-2022 End: 03-01-2022 [facility] Start: 11-15-2021 End: 11-16-2021 ambulatory UNKNOWN PROVIDER Facility:[facility] Start: 11-15-2021 End: 11-15-2021 Patient encounter procedure La Nena Lala MD Work Phone: Endocrinology Comment on above: Acquired hypothyroid ism (Primary Dx); Poorly controlled type 1 diabetes mellitus (HCC) Start: 08-30-2021 End: 08-30-2021 Emergency department patient visit Dr. Rg Menchaca [facility] Start: 08-19-2021 Non-patient / Non-visit Dr. Eron Menchaca Work Phone: [facility] [facility] Start: 08-18-2021 End: 08-19-2021 Evaluation and management of inpatient [facility] Procedures Date Procedure Procedure Detail Performing Clinician Start: 04-18-2022 Radex foot complete minimum 3 views Maryan Loving DPEmeli Work Phone: Start: 11-15-2021 Hemoglobin A1c/Hemoglobin.total in Blood La Nena Lala MD Work Phone: SARS-CoV-2 & FLU Ant igen (Rapid) Plan of Treatment Date Care Activity Detail Author Start: 05-19-2025 End: 05-19-2025 Patient encounter procedure 05/19/2025 11:30 AM EST Office Visit Neurology [address] [place] [address] Windy Yuen MD [address] [place] [address] Neurology Start: 01-18-2025 Influenza vaccination Influenz a Vaccine (Season Ended) [facility] Start: 11-04-2024 Iv infusion therapy prophylaxis/dx ea hour THER/PROPH/DIAG IV INF [facility] Start: 11-04-2024 Iv infusion therapy/prophylaxis /dx 1st to 1 hr THER/PROPH/DIAG IV INF [facility] Start: 11-04-2024 Therapeutic injectio n iv push each new drug TX/PRO/DX INJ NEW DRUG [facility] Start: 10-07-2024 Iv infusion therapy prophylaxis/dx ea hour THER/PROPH/DIAG IV INF [facility] Start: 10-07-2024 Iv infusion therapy/prophylaxis /dx 1st to 1 hr THER/PROPH/DIAG IV INF [facility] Start: 10-07-2024 Therapeutic injectio n iv push each new drug TX/PRO/DX INJ NEW DRUG [facility] Start: 09-10-2024 Iv infusion therapy prophylaxis/dx ea hour THER/PROPH/DIAG IV INF [facility] Start: 09-10-2024 Iv infusion therapy/prophylaxis /dx 1st to 1 hr THER/PROPH/DIAG IV INF [facility] Start: 09-10-2024 Therapeutic injectio n iv push each new drug TX/PRO/DX INJ NEW DRUG [facility] Start: 08-11-2024 Iv infusion therapy prophylaxis/dx ea hour THER/PROPH/DIAG IV INF [facility] Start: 08-11-2024 Iv infusion therapy/prophylaxis /dx 1st to 1 hr THER/PROPH/DIAG IV INF [facility] Start: 08-11-2024 Therapeutic injectio n iv push each new drug TX/PRO/DX INJ NEW DRUG [facility] Start: 08-11-2024 End: 08-11-2024 Patient encounter procedure 08/11/2024 12:00 PM EDT Office Visit Neurology [address] [place] [address] Windy Yuen MD [address] [place] [address] 6 mo Neurology Comment on above: 6 mo Start: 07-16-2024 Iv infusion therapy prophylaxis/dx ea hour THER/PROPH/DIAG IV INF [facility] Start: 07-16-2024 Iv infusion therapy/prophylaxis /dx 1st to 1 hr THER/PROPH/DIAG IV INF [facility] Start: 07-16-2024 Therapeutic injectio n iv push each new drug TX/PRO/DX INJ NEW DRUG [facility] Start: 05-20-2024 Advance Directive Discussion Advance Directive Discussion [facility] Start: 05-20-2024 Medicare Advantage Annual Wellness Visit Medicare Advantage Annual Wellness Visit [facility] Start: 02-05-2024 End: 02-05-2024 Patient encounter procedure 02/05/2024 11:30 AM EDT Office Visit Neurology [address] [facility] [address] [place] [address] Windy Yuen MD [address] [place] [address] 3 mo follow up Neurology Comment on above: 3 mo follow up Start: 01-19-2024 Covid-19 Vaccine ( season) Covid-19 Vaccine () [facility] Start: 01-19-2024 Covid-19 Vaccine ( season) Covid-19 Vaccine ( season) [facility] Start: 01-19-2024 Influenza vaccination [facility] Start: 12-17-2023 End: 12-17-2023 Patient encounter procedure 12/17/2023 12:00 PM EDT Office Visit Neurology [address] [place] [address] Windy Yuen MD [address] [place] [address] 3 mo follow up- 09/24 mychart message [...] Directive Discussion Advance Directive Discussion [facility] Start: 05-20-2023 Behavioral Health Screening Behavioral Health Screening [facility] Start: 05-20-2023 Depression Assessment Depression Ass essment [facility] Start: 01-18-2023 Covid-19 Vaccine ( season) Covid-19 Vaccine () [facility] Start: 01-18-2023 Influenza vaccination Influenza Vacc ine (#1) [facility] Start: 11-15-2022 3 comp foot exam completed DIABETIC FOOT EXAM [facility] Start: 11-15-2022 Diabetic foot examination Diabetic Foot Exam [facility] Start: 05-20-2022 ADVANCE DIRECTIVE DISCUSSION ADVANCE DIRECTIVE DISCUSSION [facility] Start: 05-20-2022 DEPRESSION ASSESSMENT DEPRESSION ASS ESSMENT [facility] Start: 02-15-2022 Hemoglobin A1c measurement HbA1C [facility] Start: 02-15-2022 Hemoglobin A1c/Hemoglobin.total in Blood HBA1C [facility] Start: 01-18-2022 [facility] Start: 11-15-2021 End: 01-15-2022 C peptide [Mass/volume] in Serum or Plasma [facility] Work Phone: Comment on above: Expected: 11/15/2021 , Expires: 01/15/2022 Start: 11-15-2021 End: 11-15-2022 Glutamate decarboxylase 65 Ab [Units/volume] in Serum [facility] Work Phone: Comment on above: Expected: 11/15/2021 , Expires: 11/15/2022 Start: 11-15-2021 End: 11-15-2022 INSULIN ANTIBODY BLD [facility] Work Phone: Comment on above: Expected: 11/15/2021 , Expires: 11/15/2022 Start: 11-15-2021 End: 01-15-2022 INSULINOMA ASSOCIATED ANTIBODY 2 [facility] Work Phone: Comment on above: Expected: 11/15/2021 , Expires: 01/15/2022 Start: 11-15-2021 End: 11-15-2022 Pancreatic islet cell Ab [Titer] in Serum [facility] Work Phone: Comment on above: Expected: 11/15/2021 , Expires: 11/15/2022 Start: 11-15-2021 End: 01-15-2022 Thyroxine (T4) free [Mass/volume] in Serum or Plasma [facility] Work Phone: Comment on above: Expected: 11/15/2021 , Expires: 01/15/2022 Start: 05-20-2021 ADVANCE DIRECTIVE DISCUSSION ADVANCE DIRECTIVE DISCUSSION [facility] Start: 05-20-2021 DEPRESSION ASSESSMENT DEPRESSION ASS ESSMENT [facility] Start: 04-17-2021 COVID-19 VACCINE (2 - Pfizer series) COVID-19 VACCINE (2 - Pfizer series) [facility] Start: 04-21-2019 ANNUAL PCP TEAM CLOSED CIRCUIT SCREEN WATCHER ANDREY DISEASE VISIT ANNUAL PCP TEAM CHRONIC DISEASE VISIT [facility] Start: 03-08-2018 Hepatitis B surface antibody level LDL CHOLESTEROL [facility] Start: 2017 RSV Vaccine (1 - 1-d ose 75+ series) RSV Vaccine (1 - 1-dose 75+ series) [facility] Start: 05-21-2016 PNEUMOCOCCAL: 65+ (2 - PPSV23 if available, else PCV20) PNEUMOCOCCAL: 65+ (2 - PPSV23 if available, else PCV20) [facility] Start: 05-21-2016 PNEUMOCOCCAL: 65+ (2 - PPSV23 or PCV20) PNEUMOCOCCAL: 65+ (2 - PPSV23 or PCV20) [facility] Start: 07-16-2015 Pneumococcal Vaccine : 50+ (2 of 2 - PPSV23) Pneumococcal Vaccine: 50+ (2 of 2 - PPSV23) [facility] Start: 07-16-2015 Pneumococcal Vaccine : 65+ (2 - PPSV23 or PCV20) Pneumococcal Vaccine: 65+ (2 - PPSV23 or PCV20) [facility] Start: 07-16-2015 Pneumococcal Vaccine : 65+ (2 of 2 - PPSV23 or PCV20) Pneumococcal Vaccine: 65+ (2 of 2 - PPSV23 or PCV20) [facility] Start: 07-16-2015 PNEUMOCOCCAL: 65+ (2 - PPSV23 if available, else PCV20) PNEUMOCOCCAL: 65+ (2 - PPSV23 if available, else PCV20) [facility] Start: 2007 BONE DENSITY BONE DENSITY [facility] Start: 2007 Bone Density Screening Bone Density Screening [facility] Start: 2007 Screening for osteoporosis Bone Density Screening [facility] Start: 2002 Hepatitis B Vaccine (1 of 3 - Risk 3-dose series) Hepatitis B Vaccine (1 of 3 - Risk 3-dose series) [facility] Start: 2002 RSV Vaccine (1 - 1-d ose 60+ series) RSV Vaccine (1 - 1-dose 60+ series) [facility] Start: 1992 SHINGRIX VACCINE (1 of 2) SHINGRIX VACCINE (1 of 2) [facility] Start: 1961 Urine microalbumin profile [facility] Start: 1960 Depression Screening Depression Scre ening [facility] Start: 1954 Adult depression screening assessment DEPRESSION SCREENING [facility] Start: 1952 Glaucoma screening Dilated Retinal E xam [facility] Start: 1952 Hepatitis B screening URINE ALBUMIN:CREATININE RATIO [facility] Start: 1952 Hepatitis C antibody , confirmatory test DILATED RETINAL EXAM [facility] Patient Education [facility] Work Phone: Patient referral [facility] Work Phone: [facility] Immunizations Immunization Date Immunization Notes Care Provider Fa cili 08-24-2020 influenza, injectabl e, quadrivalent, preservative free [facility] 08-24-2020 influenza, seasonal, injectable Dr. Rg Menchaca Work Phone: [facility] Work Phone: 08-24-2020 influenza virus vaccine, unspecified formulation Luis Eduardo Clemons Jr., MD Work Phone: [facility] 04-07-2018 Influenza virus vaccine [facility] 03-14-2018 influenza, high dose seasonal, preservative-free La Nena Lala MD Work Phone: [facility] Work Phone: 2017 influenza, high dose seasonal, preservative-free La Nena Lala MD Work Phone: [facility] 05-21-2015 pneumococcal conjuga te vaccine, 13 valent La Nena Lala MD Work Phone: [facility] Payers Date Payer Category Payer Self-pay [id number] 2023 Unknown [id number] 2022 Medicare UHC MEDICARE UHC DUAL COMPLETE HMO POS SNP [id number] 2022-Present [phone] [address] [place] [address] Medicare [id number] 2022 Medicare (Managed Care) [facility] DUAL COMPLETE HMO POS SNP [id number] 2022 Unknown [id number] 2021 Medicaid [facility] MEDICAID MYC ARE [facility] MEDICAID [id number] 2021-Present [phone] [address] [place] [address] Medicaid [id number] 2021 Medicaid [id number] 2021 Unknown [id number] Medicare [id number] Unknown [id number] 2.840.1.706379.3.579.2. 462 Unknown [id number] 2.840.1.698651.3.579.2. 462 Unknown [id number] 2.840.1.329038.3.579.2. 462 Unknown [id number] 2.0.1.488248.3.579.2. 462 Unknown [id number] 2.16.840.1.791637.3.579.2. 462 Unknown [id number] 2.16.840.1.247192.3.579.2. 462 Unknown [id number] 2.16.840.1.829796.3.579.2. 462 Unknown [id number] 2.16.840.1.752148.3.579.2. 462 Unknown [id number] 2.16.840.1.725090.3.579.2. 462 Unknown [id number] 2.16.840.1.573493.3.579.2. 462 Unknown [id number] 2.16.840.1.221507.3.579.2. 462 Unknown [id number] 2.16.840.1.027821.3.579.2. 462 Unknown [id number] 2.16.840.1.836786.3.579.2. 462 Unknown [id number] 2.16.840.1.904427.3.579.2. 462 Unknown [id number] 2.16.840.1.035888.3.579.2. 462 Unknown [id number] 2.16.840.1.276193.3.579.2. 462 Unknown [id number] 2.16.840.1.297658.3.579.2. 462 Unknown [id number] 2.16.840.1.974309.3.579.2. 462 Unknown [id number] 2.16.840.1.334573.3.579.2. 462 Unknown [id number] 2.16.840.1.318393.3.579.2. 462 Unknown [id number] 2.16.840.1.158431.3.579.2. 462 Unknown [id number] 2.16.840.1.016781.3.579.2. 462 Unknown [id number] 2.16.840.1.704901.3.579.2. 462 Unknown [id number] 2.840.1.110385.3.579.2. 462 Unknown [id number] 2.840.1.730696.3.579.2. 462 Unknown [id number] 2.840.1.948165.3.579.2. 462 Unknown [id number] 2.840.1.707843.3.579.2. 462 Unknown [id number] 2.840.1.101644.3.579.2. 462 Unknown [id number] 2.840.1.094235.3.579.2. 462 Unknown [id number] 2.840.1.367600.3.579.2. 462 Unknown [id number] 2.840.1.986500.3.579.2. 462 Unknown [id number] 2.840.1.000745.3.579.2. 462 Unknown [id number] 2.840.1.401017.3.579.2. 462 Unknown [id number] 2.840.1.514783.3.579.2. 462 Unknown [id number] 2.840.1.653499.3.579.2. 462 Unknown [id number] .840.1.064947.3.579.2. 462 Unknown 1961 .840.1.921146.3.579.2. 462 Unknown [id number] .840.1.145796.3.579.2. 462 Unknown [id number] 2.840.1.275585.3.579.2. 462 Unknown [id number] 2.840.1.728851.3.579.2. 462 Unknown [id number] 2.840.1.702741.3.579.2. 462 Unknown [id number] 2.840.1.789581.3.579.2. 462 Unknown [id number] 2.16.840.1.506581.3.579.2. 462 Unknown [id number] 2.16.840.1.530537.3.579.2. 462 Unknown [id number] 2.16.840.1.908213.3.579.2. 462 Social History Date Type Detail Facility Start: 08-18-2021 End: 04-28-2022 Tobacco smoking status WIIS Unknown if ever smoked [facility] Start: 11-28-2018 None [facility] Start: 11-28-2018 Prison [facility] Start: 11-28-2018 Non-smoker [facility] Start: 1940 Sex Assigned At Female [facility] Start: 01-07-2018 End: 04-28-2022 Tobacco smoking status NHIS Ex-smoker [facility] Start: 01-07-2018 End: 07-31-2023 Tobacco use and exposure Smokeless tobacco non-user [facility] Start: 1940 Sex Assigned At Not on file [facility] Start: 11-05-2021 End: 04-18-2022 Exposure to SARS-CoV-2 (event) Not sure [facility] History of tobacco use Current smoker [facility] Start: 04-18-2022 End: 02-05-2024 Alcohol intake Ex-drinker (finding) [facility] Start: 04-18-2022 End: 02-05-2024 History of Social function [facility] Start: 04-18-2022 End: 02-05-2024 Tobacco use panel [facility] National Score (1-10 0), lower number is lower risk 70 [facility] Start: 05-31-2022 Gender identity Identifies as female gender (finding) [facility] Start: 05-31-2022 Sexual orientation Heterosexual (fin jamie) [facility] Start: 08-12-2024 End: 09-11-2024 Sex Female (finding) [place] [facility] Medical Equipment Procedure Code Equipment Code Equipment Origin al Text Equipment Identifier Dates Check blood suga r 4 times daily as intructed. Dx: E11.9. Insulin: yes [id number] Start: 01-17-2018 Comment on above: Check blood sugar 4 times daily as intructed. Dx: E11.9. Insulin: yes Functional Status Date Assessment Result Facility 08-19-2021 Functional status Activity Abili ty With Assist of 2 [facility] Work Phone: Mental Status Date Assessment Result Facility 12-02-2024 Cognitive function Voice/Name [facility] Work Phone: 12-01-2024 Cognitive function Awake;Alert;A ppropriate;Follow s Commands [facility] Work Phone: 11-05-2024 Cognitive function Voice/Name [facility] Work Phone: 11-04-2024 Cognitive function Voice/Name [facility] Work Phone: 11-03-2024 Cognitive function Voice/Name [facility] Work Phone: 10-07-2024 Cognitive function Voice/Name [facility] Work Phone: 10-06-2024 Cognitive function Voice/Name [facility] Work Phone: 09-10-2024 Cognitive function Awake;Alert;A ppropriate;Follow s Commands [facility] Work Phone: 09-09-2024 Cognitive function Awake;Alert;A ppropriate;Follow s Commands [facility] Work Phone: 09-08-2024 Cognitive function Awake;Alert;A ppropriate;Follow s Commands [facility] Work Phone: 08-13-2024 Cognitive function Awake;Alert;A ppropriate;Follow s Commands [facility] Work Phone: 08-12-2024 Cognitive function Awake;Alert;A ppropriate;Follow s Commands [facility] Work Phone: 08-11-2024 Cognitive function Awake;Alert;A ppropriate;Follow s Commands [facility] Work Phone: 07-16-2024 Cognitive function Voice/Name [facility] Work Phone: 07-14-2024 Cognitive function Awake;Alert;A ppropriate;Follow s Commands [facility] Work Phone: 06-18-2024 Cognitive function Awake;Alert;A ppropriate;Follow s Commands [facility] Work Phone: 06-17-2024 Cognitive function Voice/Name [facility] Work Phone: 06-16-2024 Cognitive function Awake;Alert;A ppropriate;Follow s Commands [facility] Work Phone: 05-21-2024 Cognitive function Awake;Alert;A ppropriate;Follow s Commands [facility] Work Phone: 04-23-2024 Cognitive function Awake;Alert;A ppropriate;Follow s Commands [facility] Work Phone: 04-22-2024 Cognitive function Awake;Alert;A ppropriate;Follow s Commands [facility] Work Phone: 04-21-2024 Cognitive function Voice/Name [facility] Work Phone: 09-13-2023 Cognitive function Awake;Alert;A ppropriate;Follow s Commands [facility] Work Phone: 09-12-2023 Cognitive function Level Of Cons ciousness Awake;Alert;Appropriate;Follow s Commands [facility] Work Phone: 09-11-2023 Cognitive function Awake;Alert;A ppropriate;Follow s Commands [facility] Work Phone: 09-10-2023 Cognitive function Voice/Name [facility] Work Phone: 09-09-2023 Cognitive function Awake;Alert;A ppropriate;Follow s Commands [facility] Work Phone: 03-01-2022 Cognitive function Level Of Cons ciousness Awake;Alert;Appropriate;Follow s Commands [facility] Work Phone: 08-30-2021 Cognitive function Level Of Cons ciousness Awake;Alert;Appropriate;Follow s Commands [facility] Work Phone: 08-19-2021 Cognitive function Voice/Name [facility] Work Phone: Clinical Notes 11-15-2021 to 11-11-2024 Patient InstructionsWindy Yuen MD - 11/11/2024 12:00 PM EDTTelephone Encounter - Jamiladoc KellenRAGHU - 02/06/2024 8:02 AM EDTSWindy malik MD - 02/05/2024 11:24 AM EDT Note Date & Type Note Facility 11-11-2024 Instructions Windy Yuen MD - 11/11/2024 12:38 PM EDT - Continue your IVIG infusions at [facility] as before, with three consecutive treatment days per cycle; infusion orders have been sent to your center. - Continue taking Ativan 0.5 mg once daily and Baclofen 15 mg three times a day (morning, afternoon, and evening) exactly as you have been. - Your next follow-up appointment is scheduled in about six months, toward the end of the year. Please call my office at [phone] if you need help coordinating your care. documented in this encounter [facility] 11-11-2024 History of Presen t illness Narrative Images from the original note were not included. 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 Romain reports significant improvement in stiffness and pain since starting IVIG therapy. She is now able to sit up straighter in a chair and does not endorse muscle spasms or pain. She is unable to walk due to her foot being positioned sideways, though she notes it is straightening out slightly. She mentions that a outdoor emergency care technician advised against surgery due to her age. Romain is currently receiving IVIG therapy at [facility], which began with five days per week and has decreased to three days per week over the past 15 months. She tolerates the treatments well without reactions or problems. She reports that the therapy causes her blood sugar to drop, noting episodes of hypoglycemia (blood sugar of 78 mg/dL) during treatment and four times nightly. Romain is not currently participating in physical therapy but engages in home exercises, including lifting five-pound weights with 20 repetitions per arm. She takes Ativan 0.5 mg and Baclofen in the morning, afternoon, and at night. She mentions a family history of neurological issues, including her brother, who was previously diagnosed with Parkinson's disease but is now reportedly undiagnosed. She wonders if he may have the same condition as she does. BP 108/67 Pulse 74 SpO2 96% MSE: Alert and oriented to person, place, [...] 5 5 3 4 4 5 5 Left 5 5 5 5 5 3 4 4 5 5 Assessment/Plan : Hx, exam, and testing most c/w stiff person syndrome Confirmed with qulitative and quantitative testing ([place]) demonstrating high ab titer som 65 lab [...] baclofen of lorazepam treatment as noted above. She is now s/p 15 monthly cycles of IVIG: She has experienced remarkable improvement of her symptoms since initiating IVIG treatments: She has not been having spasms anymore She is able to sit in her chair now She had made some improvements with PT, reports that she quit PT recently. Orgininally IVIG was given over 5 days; last visit consolidated treatments to 3 consecutive days, same total dose 2g/kg IBW) divided over three days. Will plan to consolidate treatment to 0.66 g/kg daily over three days (same total dose of 2g/kg IBW) Fax order to Madelaine at [facility] at [phone] RTC 6 months documented in this encounter [facility] 11-11-2024 Note HNO ID: [id number] Author: WINDY YUEN MD Service: ? 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 Romain reports significant improvement in stiffness and pain since starting IVIG therapy. She is now able to sit up straighter in a chair and does not endorse muscle spasms or pain. She is unable to walk due to her foot being positioned sideways, though she notes it is straightening out slightly. She mentions that a outdoor emergency care technician advised against surgery due to her age. Romain is currently receiving IVIG therapy at [facility], which began with five days per week and has decreased to three days per week over the past 15 months. She tolerates the treatments well without reactions or problems. She reports that the therapy causes her blood sugar to drop, noting episodes of hypoglycemia (blood sugar of 78 mg/dL) during treatment and four times nightly. Romain is not currently participating in physical therapy but engages in home exercises, including lifting five-pound weights with 20 repetitions per arm. She takes Ativan 0.5 mg and Baclofen in the morning, afternoon, and at night. She mentions a family history of neurological issues, including her brother, who was previously diagnosed with Parkinson's disease but is now reportedly undiagnosed. She wonders if he may have the same condition as she does. BP 108/67 Pulse 74 SpO2 96% MSE: Alert and oriented to person, place, [...] 5 5 3 4 4 5 5 Left 5 5 5 5 5 3 4 4 5 5 Assessment/Plan : Hx, exam, and testing most c/w stiff person syndrome Confirmed with qulitative and quantitative testing ([place]) demonstrating high ab titer som 65 lab [...] baclofen of lorazepam treatment as noted above. She is now s/p 15 monthly cycles of IVIG: She has experienced remarkable improvement of her symptoms since initiating IVIG treatments: She has not been having spasms anymore She is able to sit in her chair now She had made some improvements with PT, reports that she quit PT recently. Orgininally IVIG was given over 5 days; last visit consolidated treatments to 3 consecutive days, same total dose 2g/kg IBW) divided over three days. Will plan to consolidate treatment to 0.66 g/kg daily over three days (same total dose of 2g/kg IBW) Fax order to Madelaine at [facility] at [phone] RTC 6 months [facility] 02-06-2024 Miscellaneous Notes IVIG order was faxed to Madelaine at [facility] at [phone] with confirmation. documented in this encounter [facility] 02-06-2024 Telephone encounter Note IVIG order was faxed to Madelaine at [facility] at [phone] with confirmation. [facility] 02-05-2024 Note HNO ID: [id number] Author: WINDY YUEN MD Service: ? Author Type: Physician Type: Progress Notes Filed: 02/05/2024 11:52 Note Text: Romain is here for follow up; her daughter joins us on the phone for the appointment. She continues on baclofen and lorazepam. She is getting IVIG over [address] [facility] Had some trouble with the last [...] syndrome Confirmed with qulitative and quantitative testing ([place]) demonstrating high ab titer som 65 lab [...] that she can receive the treatments at [facility]. She is now s/p 5 monthly [...] 2g/kg IBW) Fax order to Madelaine at [facility] at [phone] RTC 6 months [facility] 02-05-2024 History of Presen t illness Narrative Images from the original note were not included. Romain is here for follow up; her daughter joins us on the phone for the appointment. She continues on baclofen and lorazepam. She is getting IVIG over [address] [facility] Had some trouble with the last [...] syndrome Confirmed with qulitative and quantitative testing ([place]) demonstrating high ab titer som 65 lab [...] that she can receive the treatments at [facility]. She is now s/p 5 monthly cycles of IVIG: She has experienced remarkable improvement of her symptoms since initiating IVIG treatments: She has not been having spasms anymore She is able to sit in her chair now She has re-started PT. Will plan to consolidate treatment to 0.66 g/kg daily over three days (same total dose of 2g/kg IBW) Fax order to Madelaien at [facility] at [phone] RTC 6 months documented in this encounter [facility] 11-24-2023 Telephone encounter Note Patient's appointment changed from 12/17/23 to 02/05/[address] Yuen being out of the office. Appointment details faxed as requested by Nyla morgan, so patient will have transportation for appointment. Faxed to [facility] [place]: [phone] Confirmation ok. [facility] 11-24-2023 Miscellaneous Notes Patient's appointment changed from 12/17/23 to 02/05/[address] Yuen being out of the office. Appointment details faxed as requested by Nyla morgan, so patient will have transportation for appointment. Faxed to [facility] [place]: [phone] Confirmation ok. documented in this encounter [facility] 10-29-2023 Telephone encounter Note Faxed appointment change/reminder to [facility] [place]: [phone]. Confirmation ok. Appointment date for 12/17/23 arrive by 11:45am. [facility] 10-29-2023 Miscellaneous Notes Faxed appointment change/reminder to [facility] [place]: [phone]. Confirmation ok. Appointment date for 12/17/23 arrive by 11:45am. documented in this encounter [facility] 10-15-2023 Telephone encounter Note Pt daughter would like to speak to Dr Yuen via phone regarding noted changed in mother since starting her injections with her Insulin levels as well as Muscle Spasms [facility] 10-15-2023 Miscellaneous Notes Pt daughter would like to speak to Dr Yuen via phone regarding noted changed in mother since starting her injections with her Insulin levels as well as Muscle Spasms documented in this encounter [facility] 09-18-2023 Telephone encounter Note Spoke to Madelaine and relayed message from provider, she voiced understanding at this time and will let patient and daughter know. [facility] 09-18-2023 Miscellaneous Notes Spoke to Madelaine and [...] tolerates the medication well. Per Madelaine from [facility], this patient's daughter would like to have her IVIG dose changed to a higher dose for a shorter duration. States this was discussed with Dr. Yuen previously. Please advise if this is correct and if so, please call Madelaine back at [phone]. A new order and authorization will be needed. documented in this encounter [facility] 09-18-2023 Telephone encounter Note We [...] she tolerates the medication well. [facility] 09-18-2023 Telephone encounter Note Per Madelaine from [facility], this patient's daughter would like to have her IVIG dose changed to a higher dose for a shorter duration. States this was discussed with Dr. Yuen previously. Please advise if this is correct and if so, please call Madelaine back at [phone]. A new order and authorization will be needed. [facility] 08-13-2023 Miscellaneous Notes Faxed office notes, demographic sheet, copy of insurance, we don't have a copy of insurance cards to [phone]. documented in this encounter [facility] 07-31-2023 History of Presen t illness Narrative [...] is able to get the IVIG at [facility]. Office notes and IVIG order was faxed to Madelaine at [facility] at [phone] with confirmation. Our office Spoke to Madelaine and she stated that the patient will need documentation showing a failure or inability to tolerate the baclofen, in order to get approved for [employer]. And needs progress note faxed to their office at [phone]. It seems like there was a misunderstanding; [...] syndrome Confirmed with qulitative and quantitative testing ([place]) demonstrating high ab titer som 65 lab [...] that she can receive the treatments at [facility]. Will send off IVIG rx for insurance approval. RTC 3 months documented in this encounter [facility] 03-25-2023 Miscellaneous Notes The listed home phone number for the patient is her daughter Nyla's phone. Nyla was notified of the canceled appointment and new appointment. The daughter was instructed that the patient must have someone accompany her to the appointment. The patient resides at the [facility]. Ph. [phone] I called the [facility] and spoke with Mona and the nurse [...] The appointment reminder was faxed to the [facility]. TC to daughter regarding upcoming appointment with Dr. Clemons. 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 Pt will need to be seen by neuromuscular for treatment and care, per . Samira Vieira LPN documented in this encounter [facility] 07-20-2022 Miscellaneous Notes completed a Virtual Visit with patient and facility. CLOSED Called patients daughter Nyla and left to call back office at [phone]. Wanted to check and see how her [...] not know why they arranged for this supervisor opening and picking time because she would have been late [...] after 9 am to make arrangements. Nyla [phone] documented in this encounter [facility] 06-12-2022 Miscellaneous Notes Faxed new orders to the [facility] at [phone],transmission ok CLOSED Addended by: LA NENA LALA on: 06/12/2022 01:27 PM Modules accepted: Orders Reviewed the blood sugars. She is having low blood sugars in the morning, and mostly high blood sugars with meals, and especially at bedtime. Please call the custodial to let them know of the following [...] thanks. documented in this encounter [facility] 06-04-2022 Instructions La Nena Lala MD - 06/04/2022 3:04 PM EST Images from the original note were not included. - Please do blood tests to check TSH, free T4 and A1c, and fax the results to us on [phone] - Please fax the glucose values from the last 2 weeks to us - Do not eat more than 60 g of carbs per meal. documented in this encounter [facility] 06-04-2022 History of Presen t illness Narrative ENDOCRINOLOGY CLINIC NOTE Ms. Mcdermott is a 82 year old female with T1DM and hypothyroidism presented for follow-up of hypothyroidism and diabetes. 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 She saw a outdoor emergency care technician before and was told that she had old changes and no intervention was done. They were hoping to see someone for a second opinion to see if they can help with the foot deformity as this is what is keeping her in the custodial. She is still complaining of spasm in [...] diet has not been optimal at the custodial. A1c: 11/15/21 11:30 Hemoglobin A1C (POCT) 8.1 ! 9.4% in 08/2021 Current regimen: Levemir 29 units in the morning NovoLog based on a sliding scale 1 unit for every 50 starting at 170 Glucose monitoring: She has received the freestyle jeremiah and is being managed by the nurses at the custodial. I did not have the glucose data to make changes today Diet: She eats 3 meals but the options are limited in the custodial Complications: Retinopathy: 6 months ago. She has [...] bed. She has been staying in a custodial for the last couple of years due [...] will contact them to give the instructions. [facility] phone number is [phone] Some of the above has been copied from prior documentation on 11/15/2021 but foster elements reviewed, confirmed, and/or updated by me (La Nena Lala MD) on 06/04/2022 I spent a total of 40 minutes on the date of the service which included preparing to see the patient, [id number] patient care, completing clinical documentation, obtaining and/or reviewing separately obtained history, and counseling and educating the patient/family/caregiver. Virtual Visit (Audio/Visual)I have discussed the nature of this visit with the patient which will occur via [facility] (Phone, Virtual Visit) and she agrees to proceed with this interaction. La Nena Lala MD documented in this encounter [facility] 04-18-2022 Note HNO ID: [id number] Author: AVELINO Kahn Service: Radiology Author Type: Technologist Type: Progress Notes Filed: 04/18/2022 3:06 PM Note Text: Radiology Service Progress Note PATIENT NAME: oRmain Mcdermott DATE OF SERVICE: April 18, 2022 [...] AVELINO Kahn April 18, 2022 3:06 PM [facility] 04-18-2022 History of Presen t illness [...] (diabetes mellitus, type 1) ([facility]) Hypothyroidism Current Outpatient Medications Medication Sig [...] PRN. Maryan Loving DPM, DABPM, FACFAS Pager: [phone] [facility]opedic [facility] Rheumat[facility] [place] [facility] and [facility] locations documented in this encounter [facility] 04-18-2022 History of Presen t [...] PM documented in this encounter [facility] 11-15-2021 History of Presen t illness Narrative Patient brought some medical records. Sent to scanning. Images from the original note were not included. ENDOCRINOLOGY CLINIC NOTE Ms. Mcdermott is a 81 year old female with T1DM and hypothyroidism self-referred for management of hypothyroidism and diabetes. 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 She saw a outdoor emergency care technician before and was told that she had old changes and no intervention was done. They were hoping to see someone for a second opinion to see if they can help with the foot deformity as this is what is keeping her in the custodial. Hypothyroidism: levothyroxine 75 mcg daily. No recent [...] I reviewed the glucose data from the custodial. The values went from September, and no glucose levels were available from October. In September, her glucose levels fluctuated significantly between 65-398 on variable times of day. There is really no pattern regarding the hypo or hyperglycemia Diet: She eats 3 meals but the options are limited in the custodial Complications: Retinopathy: 6 months ago. She has [...] T1DM. She has been staying in a custodial for the last couple of years due to an acquired right foot deformity. Her diabetes is poorly controlled as evidenced by the A1c level and the reviewed glucose data. This is most likely due to suboptimal regimen, inconsistencies with diet and timing of insulin administration at the custodial. We will continue with the same doses [...] only reason why she is in the custodial is because of the right foot deformity I spent a total of 60 minutes on the date of the service which included preparing to see the patient, [id number] patient care, completing clinical documentation, obtaining and/or reviewing separately obtained history, performing a medically appropriate examination, counseling and educating the patient/family/caregiver and ordering medications, tests, or procedures. La Nena Lala MD documented in this encounter [facility] 11-15-2021 Instructions La Nena Lala [...] referred you to orthopedic surgery. Please call [phone] To schedule documented in this encounter [facility] Evaluation note Diagnosis Onset Date SHEKHAR (acute kidney injury) ac [place] Hyperglycemia due to diabetes mellitus [facility] Work Phone: Evaluation note* Diagnosis Acquired hypothyroidism- Primary Unspecified hypothyroidism Poorly controlled type 1 diabetes mellitus (HCC) Type I (juvenile type) diabetes mellitus without mention of complication, not stated as uncontrolled [facility] Diagnosis Cavovarus deformity of foot, acquired, right- Primary Other osteoporosis without current pathological fracture [place], bilateral [facility] noteNo assessment information availableWUniversity [facility]als [facility] Work Phone: Evaluation note* Diagnosis Poorly controlled type 1 diabetes mellitus (HCC)- Primary Type I (juvenile type) diabetes mellitus without mention of complication, not stated as uncontrolled Acquired hypothyroidism Unspecified hypothyroidism [facility] Diagnosis Controlled type 2 diabetes mellitus without complication, with long-term current use of insulin (HCC) [facility] 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 [facility] 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 If you have any further concerns please return for repeat [facility] Work Phone: reason for referral (narrative)* Diagnostic Procedure Only (Routine) - Closed Specialty Diagnoses / Procedures Referred By Contac t Referred To Contact XR IMAGING Diagnoses Pain Procedures XR FOOT GENERAL 3V AP/LAT/OBL RIGHT RADEX FOOT COMPLETE MINIMUM 3 VIEWS Maryan Loving DPM [address] [place] [address] [place] [address] Referral ID Status Reason Start Date Expiration Date V isits Requested Visits Authorized [id number] Closed Auto-Generate d Referral 12/04/2021 01/03/2023 1 1 [facility] for referral (narrative)No reason for referral information availableWUniversity [facility] Work Phone: Rehjgg for visit Narrative* Diagnostic Procedure Only (Routine) - Closed Specialty Diagnoses / Procedures Referred By Contac t Referred To Contact XR IMAGING Diagnoses Pain Procedures XR FOOT GENERAL 3V AP/LAT/OBL RIGHT RADEX FOOT COMPLETE MINIMUM 3 VIEWS Maryan Loving DPM [address] [place] [id number] [place] [address] Referral ID Status Reason Start Date Expiration Date V isits Requested Visits Authorized [id number] Closed Auto-Generate d Referral 12/04/2021 01/03/2023 1 1 [facility] Chief Complaint and Reason for [...] am IVIG November 04, 2024 7:49 am Chief Complaint Admit Date IVIG July [...] am IVIG November 04, 2024 7:49 am IVIG November 05, 2024 8:09 am Chief Complaint Admit Date IVIG August 11, 2024 7:5 2am IVIG [...] am IVIG November 04, 2024 7:49 am IVIG November 05, 2024 8:09 am IVIG December 01, 2024 7:58 am Chief Complaint Admit Date IVIG August 11, 2024 7:5 2am IVIG August 12, 2024 7:5 8am IVIG August 13, 2024 9:5 3am IVIG September 08, 2024 8:2 0am IVIG September 09, 2024 8:0 1am IVIG September 10, 2024 8:1 0am IVIG October 06, 2024 7:37a m IVIG October 07, 2024 8:14a m IVIG May 22nd, 2025 8:38a m IVIG November 03, 2024 7:54 am IVIG November 04, 2024 7:49 am IVIG November 05, 2024 8:09 am IVIG December 01, 2024 7:58 am IVIG December 02, 2024 7:57 am Family History Relationship Condition Age at Onset Recorded Date/T jane Not Specified Cardiac disease Unknown Malignant neoplasm Unknown Advance Directives Advance Directive Response Recorded Date/ Time Living Will No August 18, 2021 6:10pm Power of Control Clerk [employer] No August 18 6:10pm Advance Directive Response Recorded Date/ Time Living Will No August 18, 2021 9:27pm Power of Control Clerk [employer] No August 18 9:27pm Advance Directive Response Recorded Date/ Time Living Will No August 30, 2021 6:13pm Power of Control Clerk [employer] No August 30 6:13pm Advance Directive Response Recorded Date/ Time Name of Medical Power of Control Clerk Food [employer] Beverage Nlya Mcnulty April 28, 2022 10:03pm Living Will Yes April 28, 022 10:03pm Power of Control Clerk [employer] Yes April 28, 2022 10:03pm Advance Directive Response Recorded Date/ Time Living Will Yes April 28, 022 11:03pm Power of Control Clerk [employer] Yes April 28, 2022 11:03pm Reason for Referral Specialty Diagnoses / Procedures Referred By Contac t Referred To Contact Orthopedics Diagnoses Acquired hypothyroidism Poorly controlled type 1 diabetes mellitus (HCC) Procedures CONSULT TO ORTHOPAEDICS OFFICE/OUTPATIENT [facility] MDM 60-74 MINUTES La Nena Lala MD [address] [place] [address] Referral ID Status Reason Start Date Expiration Date Visits Requested Visits Authorized [id number] Authorized PCP Requested Referral 11/15/2021 11/15/2022 1 1 Specialty Diagnoses / Procedures Referred By Contac t Referred To Contact Diagnoses Stiff person syndrome Procedures PROVIDER ORDERED FOLLOW UP OFFICE/OUTPATIENT [facility] MDM 60 MINUTES Windy Yuen MD [address] [place] [id number] Referral ID Status Reason Start Date Expiration Date Visits Requested Visits Authorized [id number] Authorized PCP Requested Referral 10/31/2023 07/30/2024 1 [...] any alcohol or drug abuse patient.[facility] Center[facility] the event this information is protected by the Federal Confidentiality of Alcohol and Drug Abuse Patient Records regulations: The Federal rules restrict any use of the information to criminally investigate or prosecute any alcohol or drug abuse patient.[facility] Center[facility] the event this information is protected by the Federal Confidentiality of Alcohol and Drug Abuse Patient Records regulations: The Federal rules restrict any use of the information to criminally investigate or prosecute any alcohol or drug abuse patient.[facility] CenterIn the event this information is protected by the Federal Confidentiality of Alcohol and Drug Abuse Patient Records regulations: The Federal rules restrict any use of the information to criminally investigate or prosecute any alcohol or drug abuse patient.[facility] CenterIn the event this information is protected by the Federal Confidentiality of Alcohol and Drug Abuse Patient Records regulations: The Federal rules restrict any use of the information to criminally investigate or prosecute any alcohol or drug abuse patient.[facility] CenterIn the event this information is protected by the Federal Confidentiality of Alcohol and Drug Abuse Patient Records regulations: The Federal rules restrict any use of the information to criminally investigate or prosecute any alcohol or drug abuse patient.[facility] CenterIn the event this information is protected by the Federal Confidentiality of Alcohol and Drug Abuse Patient Records regulations: The Federal rules restrict any use of the information to criminally investigate or prosecute any alcohol or drug abuse patient.[facility] CenterIn the event this information is protected by the Federal Confidentiality of Alcohol and Drug Abuse Patient Records regulations: The Federal rules restrict any use of the information to criminally investigate or prosecute any alcohol or drug abuse patient.[facility] CenterIn the event this information is protected by the Federal Confidentiality of Alcohol and Drug Abuse Patient Records regulations: The Federal rules restrict any use of the information to criminally investigate or prosecute any alcohol or drug abuse patient.[facility] CenterIn the event this information is protected by the Federal Confidentiality of Alcohol and Drug Abuse Patient Records regulations: The Federal rules restrict any use of the information to criminally investigate or prosecute any alcohol or drug abuse patient.[facility] CenterIn the event this information is protected by the Federal Confidentiality of Alcohol and Drug Abuse Patient Records regulations: The Federal rules restrict any use of the information to criminally investigate or prosecute any alcohol or drug abuse patient.[facility] CenterIn the event this information is protected by the Federal Confidentiality of Alcohol and Drug Abuse Patient Records regulations: The Federal rules restrict any use of the information to criminally investigate or prosecute any alcohol or drug abuse patient.[facility] CenterIn the event this information is protected by the Federal Confidentiality of Alcohol and Drug Abuse Patient Records regulations: The Federal rules restrict any use of the information to criminally investigate or prosecute any alcohol or drug abuse patient.[facility] CenterIn the event this information is protected by the Federal Confidentiality of Alcohol and Drug Abuse Patient Records regulations: The Federal rules restrict any use of the information to criminally investigate or prosecute any alcohol or drug abuse patient.[facility] CenterIn the event this information is protected by the Federal Confidentiality of Alcohol and Drug Abuse Patient Records regulations: The Federal rules restrict any use of the information to criminally investigate or prosecute any alcohol or drug abuse patient.[facility] CenterIn the event this information is protected by the Federal Confidentiality of Alcohol and Drug Abuse Patient Records regulations: The Federal rules restrict any use of the information to criminally investigate or prosecute any alcohol or drug abuse patient.[facility] CenterIn the event this information is protected by the Federal Confidentiality of Alcohol and Drug Abuse Patient Records regulations: The Federal rules restrict any use of the information to criminally investigate or prosecute any alcohol or drug abuse patient.[facility] CenterIn the event this information is protected by the Federal Confidentiality of Alcohol and Drug Abuse Patient Records regulations: The Federal rules restrict any use of the information to criminally investigate or prosecute any alcohol or drug abuse patient.[facility] Reason for Visit (unrecogniz ed [...] Appointment Update F axed to [facility] for 12/17/23 Reason Comments Appointment Update faxed to [facility] for appointment 02/05/24 Reason Comments Follow Up Patient states no ch anges. Reason Comments Orders IVIG INFORMATION SOURCE (unrecogn ized section and content) DATE CREATED AUTHOR 03/15/2022 [facility] DATE CREATED AUTHOR AUTHOR'S ORGANIZ ATION 04/19/2022 [facility] DATE CREATED AUTHOR AUTHOR'S ORGANIZ ATION 11/13/2024 [facility] DATE CREATED AUTHOR AUTHOR'S ORGANIZ ATION 11/15/2024 [facility] Care Teams (unrecognized sec tion and content) Cso Relationship Specialty Start Date End Date Rg Menchaca MD [address] [place] [address] [address] [place] [address] PCP - General Family Medicine 04/18/22 Cso Relationship Specialty Start Date End Date Rg Menchaca MD [address] [place] [address] [address] [place] [address] PCP - General Family Medicine 04/18/22 Cso Relationship Specialty Start Date End Date Rg Menchaca MD [address] [place] [address] [address] [place], [place] [address] PCP - General Family Medicine 04/18/22 Cso Relationship Specialty Start Date End Date Rg Menchaca MD [address] [facility] [address] [place], [place] [id number] PCP - General Family Medicine 04/18/22 Cso Relationship Specialty Start Date End Date Rg Menchaca MD [address] [facility] [address] [place] [address] PCP - General Family Medicine 04/18/22 Cso Relationship Specialty Start Date End Date Rg Menchaca MD [address] [facility] [address] [place] [address] PCP - General Family Medicine 04/18/22 Cso Relationship Specialty Start Date End Date Rg Menchaca MD [address] [facility] [address] [place] [address] PCP - General Family Medicine 04/18/22 Team Status: Active Member Role Status Dates Dr. Rg Menchaca MD Family Provider Active Dr. Rg Menchaca MD Primary Care Provider Active Team Status: Inactive Member Role Status Dates Dr. Rg Menchaca MD Primary Care Provider Active [facility] [facility] Attending Provider, Referring Provide r Active Cso Relationship Specialty Start Date End Date Rg Menchaca MD [address] [facility] [address] [place] [address] PCP - General Family Medicine 04/18/22 Cso Relationship Specialty Start Date End Date Rg Menchaca MD [address] [facility] [address] [place] [address] PCP - General Family Medicine 04/18/22 Cso Relationship Specialty Start Date End Date Rg Menchaca MD [address] [facility] [address] [place] [address] PCP - General Family Medicine 04/18/22 Cso Relationship Specialty Start Date End Date Rg Menchaca MD [address] [facility] [address] [place] [address] PCP - General Family Medicine 04/18/22 Team [...] 2024 End: July 16, 2024 Dr. Windy Yeun MD Attending Provider Active Start: July 16, [...] November 04, 2024 End: November 04, 2024 Team Status: Inactive Member Role Status Dates Dr. Rg Menchaca MD Primary Care Provider Active Start: November 05, 2024 End: November 05, 2024 Dr. Windy Yuen MD Attending Provider Active Start: November 05, 2024 End: November 05, 2024 Dr. Windy Yuen MD Referring Provider Active Start: November 05, 2024 End: November 05, 2024 Cso Relationship Specialty Start Date End Date Rg Menchaca MD [address] [facility] [address] [place] [address] PCP - General Family Medicine 04/18/22 Team Status: Active Member Role/Relationship Status Dates Dr. Rg Menchaca MD Primary Care Provider Active Team Status: Inactive Member Role/Relationship Status Dates Dr. Rg Menchaca MD Primary Care Provider Active Start: August 11, 2024 End: August 11, 2024 Dr. Windy Yuen MD Attending Provider Active Start: August 11, 2024 End: August 11, 2024 Dr. Windy Yuen MD Referring Provider Active Start: August 11, 2024 End: August 11, 2024 Team Status: Inactive Member Role/Relationship Status Dates Dr. Rg Menchaca MD Primary Care Provider Active Start: August 12, 2024 End: August 12, 2024 Dr. Windy Yuen MD Attending Provider Active Start: August 12, 2024 End: August 12, 2024 Dr. Windy Yuen MD Referring Provider Active Start: August 12, 2024 End: August 12, 2024 Team Status: Inactive Member Role/Relationship Status Dates Dr. Rg Menchaca MD Primary Care Provider Active Start: August 13, 2024 End: August 13, 2024 Dr. Windy Yuen MD Attending Provider Active Start: August 13, 2024 End: August 13, 2024 Dr. Windy Yuen MD Referring Provider Active Start: August 13, 2024 End: August 13, 2024 Team Status: Inactive Member Role/Relationship Status Dates Dr. Rg Menchaca MD Primary Care Provider Active Start: September 08, 2024 End: September 08, 2024 Dr. Windy Yuen MD Attending Provider Active Start: September 08, 2024 End: September 08, 2024 Dr. Windy Yuen MD Referring Provider Active Start: September 08, 2024 End: September 08, 2024 Team Status: Inactive Member Role/Relationship Status Dates Dr. Rg Menchaca MD Primary Care Provider Active Start: September 09, 2024 End: September 09, 2024 Dr. Windy Yuen MD Attending Provider Active Start: September 09, 2024 End: September 09, 2024 Dr. Windy Yuen MD Referring Provider Active Start: September 09, 2024 End: September 09, 2024 Team Status: Inactive Member Role/Relationship Status Dates Dr. Rg Menchaca MD Primary Care Provider Active Start: September 10, 2024 End: September 10, 2024 Dr. Windy Yuen MD Attending Provider Active Start: September 10, 2024 End: September 10, 2024 Dr. Windy Yuen MD Referring Provider Active Start: September 10, 2024 End: September 10, 2024 Team Status: Inactive Member Role/Relationship Status Dates Dr. Rg Menchaca MD Primary Care Provider Active Start: October 06, 2024 End: October 06, 2024 Dr. Windy Yuen MD Attending Provider Active Start: October 06, 2024 End: October 06, 2024 Dr. Windy Yuen MD Referring Provider Active Start: October 06, 2024 End: October 06, 2024 Team Status: Inactive Member Role/Relationship Status Dates Dr. Rg Menchaca MD Primary Care Provider Active Start: October 07, 2024 End: October 07, 2024 Dr. Windy Yuen MD Attending Provider Active Start: October 07, 2024 End: October 07, 2024 Dr. Windy Yuen MD Referring Provider Active Start: October 07, 2024 End: October 07, 2024 Team Status: Inactive Member Role/Relationship Status Dates Dr. Rg Menchaca MD Primary Care Provider Active Start: October 08, 2024 End: October 08, 2024 Dr. Windy Yuen MD Attending Provider Active Start: October 08, 2024 End: October 08, 2024 Dr. Windy Yuen MD Referring Provider Active Start: October 08, 2024 End: October 08, 2024 Team Status: Inactive Member Role/Relationship Status Dates Dr. Rg Menchaca MD Primary Care Provider Active Start: November 03, 2024 End: November 03, 2024 Dr. Windy Yuen MD Attending Provider Active Start: November 03, 2024 End: November 03, 2024 Dr. Windy Yuen MD Referring Provider Active Start: November 03, 2024 End: November 03, 2024 Team Status: Inactive Member Role/Relationship Status Dates Dr. Rg Menchaca MD Primary Care Provider Active Start: November 04, 2024 End: November 04, 2024 Dr. Windy Yuen MD Attending Provider Active Start: November 04, 2024 End: November 04, 2024 Dr. Windy Yuen MD Referring Provider Active Start: November 04, 2024 End: November 04, 2024 Team Status: Inactive Member Role/Relationship Status Dates Dr. Rg Menchaca MD Primary Care Provider Active Start: November 05, 2024 End: November 05, 2024 Dr. Windy Yuen MD Attending Provider Active Start: November 05, 2024 End: November 05, 2024 Dr. Windy Yuen MD Referring Provider Active Start: November 05, 2024 End: November 05, 2024 Team Status: Inactive Member Role/Relationship Status Dates Dr. Rg Menchaca MD Primary Care Provider Active Start: December 01, 2024 End: December 01, 2024 Dr. Windy Yuen MD Attending Provider Active Start: December 01, 2024 End: December 01, 2024 Dr. Windy Yuen MD Referring Provider Active Start: December 01, 2024 End: December 01, 2024 Team Status: Inactive Member Role/Relationship Status Dates Dr. Rg Menchaca MD Primary Care Provider Active Start: December 02, 2024 End: December 02, 2024 Dr. Windy Yuen MD Attending Provider Active Start: December 02, 2024 End: December 02, 2024 Dr. Windy Yuen MD Referring Provider Active Start: December 02, 2024 End: December 02, 2024 FOR RECORDS PERTAINING TO PATIENTS WHO [...] BE BASED ON THE PRIMARY CLINICAL RECORDS. [email or web address] provides no warranty or guarantee of the accuracy or completeness of information in this document.
--- OUTSIDE RECORDS SUMMARY | 2024-12-03 08:58 | XMS RPT_ITS | CCD ---
Author Organization [facility] [employer] Care Team Providers Care Tank Furnace Operator Name Role Phone Dr. Rg Menchaca Primary Care Provider MD Saul Cruz Emergency Provider [phone] Sean Godwin Admit Provider Dr. [...] Tripp ANDRADE, Dr. Norris Referring Provider [phone] Doyle ANDRADE, Dr. Diez Primary Care Provider [phone] Tripp ANDRADE, Dr. Norris Attending Provider Tripp ANDRADE, Dr. Norris Referring Provider Doyle ANDRADE, Dr. Diez Primary Care Provider Tripp ANDRADE, Dr. Norris Attending Provider Tripp ANDRADE, Dr. Norris Referring Provider Doyle ANDRADE, Dr. Diez Primary Care Provider Tripp ANDRADE, Dr. Norris Attending Provider Dr. Windy Yuen MD Referring Provider Rg Menchaca MD Primary Care Provider Spolter, Windy Attending Unavailable Menchaca, Rg Primary Care Unavailable Spolter, Windy Referring Unavailable Spolter, Windy Attending Unavailable Spolter, Windy Referring Unavailable Menchaca, Rg Primary Care Unavailable Spolter, Windy Referring Unavailable Spolter, Windy Attending Unavailable Menchaca, Rg Primary Care Unavailable Spolter, Windy Attending Unavailable Menchaca, Rg Primary Care Unavailable Spolter, Wnidy Referring Unavailable Spolter, Windy Attending Unavailable Menchaca, [...] Windy Referring Unavailable Spolter, Windy Attending Unavailable Mencahca, Rg Primary Care Unavailable Spolter, Windy Referring [...] Attending Unavailable Spolter, Windy Referring Unavailable Menchaca, Gr Primary Care Unavailable Spolter, Windy Attending Unavailable [...] Menchaca , Dr. Diez Primary Care Provider [phone] Tripp ANDRADE, Dr. Norris Attending Provider [phone] Tripp ANDRADE, Dr. Norris Referring Provider [phone] Medications Current Medications Medication Drug Class(es) Dates [...] times daily. Blood-Glucose Meter (RELION PRIME METER) [facility] (18 sources) Start: 01-17-2018 Blood-Glucose Meter (RELION PRIME METER) [facility] Indications: Type 2 diabetes mellitus with complication, with long-term current use of insulin (HCC) 1 Each four times daily. Dx: E11.9. Insulin: yes 1 Each 01/17/2018 Active Start: 01-17-2018 Blood-Glucose Meter (RELION PRIME METER) [facility] Indications: Type 2 diabetes mellitus with complication, [...] mg PO and acetaminophen 650 [place]. [address] mL 11 02/05/2024 02/05/2024 Discontinued 3 ml [...] Start: 04-28-2022 take 8.6-50 mg by mo [facility] once daily Senna Plus (senna-docusate) Active 8.6 - 50 mg PO.IVFORM DAILY April 28, 2022 1:00am Start: 04-28-2022 take 8.6-50 mg by [facility] once daily Senna Plus (senna-docusate) Active 8.6 - 50 MG PO.IVFORM DAILY April 28, 2022 1:00am Start: 04-28-2022 take 8.6-50 mg by [facility] once daily Senna Plus (senna-docusate) Active [...] Comment on above: Take 1 tablet by [facility] once daily. bisacodyl 10 mg rectal [...] Test Name Value Interpretation Reference Range Facility [facility] 11-11-2024 CNOV Office Visit (NNSTFM ) ROMAIN MCDERMOTT ([id number]) 1940 F Date Time Provider Department 11/11/24 12:00 PM WINDY YUEN [facility] During your visit today, we recorded the [...] straightening out slightly. She mentions that a fire management specialist advised against surgery due to her age. 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 Please call my office at [phone] if you need help coordinating your care. Allergies As of Date: 11/11/2024 (No Known Allergies) Date Reviewed: 11/11/2024 Reviewed by: Kellen Durna LPN - Fully Assessed Visit Diagnosis:Stiff person [...] 1050 mLRfl: 5 PROVIDER ORDERED FOLLOW UP [[id number]] Order #: [id number]: 1 FUTURE Prescriptions as of 11/11/2024 - LANTUS SOLOSTAR U-100 INSULIN 100 unit/mL (3 mL) - immune globulin (human) (IgG) 35 g in empty bag Total Volume 350 mL (GAMMAGARD) Inject 350 mL intrave (more content not included)... Normal [facility] 02-06-2024 [facility] Telephone ([facility]) ROMAIN MCDERMOTT ([id number]) 1940 F Date Time Provider Department 02/06/24 WINDY YUEN [facility] During your visit today, we recorded the following information about you: Kellen Duran LPN 02/06/2024 8:05 AM Signed IVIG order was faxed to Madelaine at [facility] at [phone] with confirmation. Kellen Duran LPN 02/12/2024 2:00 PM Signed [facility] needed clarification to the IVIG order that was previously sent, completed by Dr. Yuen and re-faxed to them at [phone] with confirmation. Allergies As of Date: 02/06/2024 [...] Encounter Status:Closed by KELLEN DURAN on 02/06/24 [facility] CNOVon 02-05-2024 CNOV Office Visit (NNSTFM ) ASTERROMAIN ([id number]) 1940 F Date Time Provider Department 02/05/24 11:30 AM WINDY YUEN [facility] During your visit today, we recorded the following information about you: Pulse Blood pressure 81/minute 116/68 Windy Yuen MD 02/05/2024 11:52 AM Nadege Flynn is here for follow up; her daughter joins us on the phone for the appointment. She continues on baclofen and lorazepam. 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 She is now s/p 5 monthly [...] 2g/kg IBW) Fax order to Madelaine at [facility] at [phone] RTC 6 months Allergies As of Date: [...] 2018 12:38pm (more content not included)... [facility] ([facility]) ROMAIN MCDERMOTT ([id number]) 1940 F Date Time Provider Department 11/24/23 WINDY YUEN [facility] During your visit today, we recorded the following information about you: Naif Oates 11/24/2023 3:16 PM Signed Patient's appointment changed from 12/17/23 to 02/05/[address] Yuen being out of the office. Appointment details faxed as requested by daughter, Nyla, so patient will have transportation for appointment. Faxed to [facility]: [phone] Confirmation ok. Allergies As of Date: 11/24/2023 (No Known Allergies) Date Reviewed: 07/31/2023 Reviewed by: Shruthi Soliz LPN - Fully Assessed Reason for Visit: Appointment [186] Cmt: Update faxed to [facility] for appointment 02/05/24 Prescriptions as of [...] Status:Closed by NAIF OATES on 11/24/23 Normal [facility] Glucose Glucometer (BldC) [M ass/Vol]on 04-29-2022 Glucose [Mass/Vol] 94 mg/dL 74-106 [facility] Work Phone: Comment on above: MANAGEMENT OF PATIEN T CARE PER NURSING PROTOCOL Absolute lymphocyte counton 04-28-2022 Lymphocytes Auto (Unsp spec) [#/Vol] 2.37 10*3/uL 0.83-4.51 [facility] Work Phone: Basophil percentageon 2021 Basophils/100 WBC (Bld) 0.3 % 0-1 [facility] Work Phone: Chloride [Moles/Vol] 102 mmol/L 98-107 [facility] Work Phone: Eosinophils/100 WBC (Bld) 0.1 % 0-5 [facility] Work Phone: Glucose [Mass/Vol] 112 mg/dL 74-106 [facility] Work Phone: Comment on above: Fasting Glucose resu lt from 100 to 125 mg/dL suggests IMPAIRED HOMEOSTASIS per A.D.A. criteria. Neutrophils (Bld) [#/Vol] 8.6 10*3/uL 2.0-7.7 [facility] Work Phone: Neutrophils/100 WBC (Bld) 74.7 % 47-70 [facility] Work Phone: Potassium [Moles/Vol] 5.4 mmol/L 3.5-5.1 [facility] Work Phone: Sodium [Moles/Vol] 137 mmol/L 136-145 [facility] Work Phone: WBC (Bld) [#/Vol] 11.5 10*3/uL 4.4-11.0 [facility] Work Phone: Blood erythrocytes count (nu mber/volume)on 04-28-2022 RBC (Bld) [#/Vol] 4.65 10*6/uL 4.2-5.4 [facility] Work Phone: Blood hemoglobin measurement (mass/volume)on 04-28-2022 Hemoglobin (Bld) [Mass/Vol] 13.2 g/dL 12.0-15.0 [facility] Work Phone: Blood lymphocytes/100 leukoc yteson 04-28-2022 Lymphocytes/100 WBC (Bld) 20.6 % 19-41 [facility] Work Phone: Blood monocytes/100 leukocyt eson 04-28-2022 Monocytes/100 WBC (Bld) 3.0 % 0-10 [facility] Work Phone: Blood platelet mean volumeon 04-28-2022 Platelet mean volume (Bld) [Entitic vol] 9.7 fL 6.2-12.0 [facility] Work Phone: Determination of erythrocyte mean corpuscular volume (MCV)on 04-28-2022 MCV (RBC) [Entitic vol] 88.8 fL 81-99 [facility] Work Phone: Hematocrit Auto (Bld) [Volum e fraction]on 04-28-2022 Hematocrit (Bld) [Volume fraction] 41.3 % 37-47 [facility] Work Phone: Laboratory - Chemistry and C hemistry - challengeon 04-28-2022 CO2 [Moles/Vol] 31.0 mmol/L 21.0-32.0 [facility] Work Phone: Magnesium [Mass/Vol] 2.0 mg/dL 1.6-2.6 [facility] Work Phone: Urea nitrogen/Creatinine [Mass ratio] 33.5 mg/mg 10-20 [facility] Work Phone: Laboratory - Hematology and Cell countson 04-28-2022 Erythrocyte distribution width (RBC) [Entitic vol] 44.3 fL 35.1-43.9 [facility] Work Phone: Erythrocyte distribution width (RBC) [Ratio] 13.6 % 11.6-14.6 [facility] Work Phone: Immature granulocytes/100 WBC (Bld) 1.300 % 0.0-0.9 [facility] Work Phone: Comment on above: IG% - Immature Granu locytes (promyelocytes, myelocytes and metamyelocytes) > 1% indicates that a LEFT SHIFT is Present. MCH (RBC) [Entitic mass] 28.4 pg 27.0-32.0 [facility] Work Phone: Nucleated RBC/100 WBC (Bld) [Ratio] 0 % 0-5 [facility] Work Phone: MCHC Auto (RBC) [Mass/Vol]on 04-28-2022 MCHC (RBC) [Mass/Vol] 32.0 g/dL 32-36 [facility] Work Phone: No Panel Informationon 04-28 Estimated Creatinine Clearance Calc 37.12 ml/min [facility] Work Phone: Estimated GFR (MDRD) Amer 118 mL/min >60 [facility] Work Phone: Comment on above: GFR Calc Estimated GFR (MDRD) Non-Af Amer 97 mL/min >60 [facility] Work Phone: Comment on above: Non- GFR Calc Platelets bldon 04-28-2022 Platelets (Bld) [#/Vol] 251 10*3/uL 150-450 [facility] Work Phone: Serum or plasma calcium roger urement (mass/volume)on 04-28-2022 Calcium [Mass/Vol] 9.3 mg/dL 8.5-10.1 [facility] Work Phone: Serum or plasma creatinine m easurement (mass/volume)on 04-28-2022 Creatinine [Mass/Vol] 0.63 mg/dL 0.55-1.02 [facility] Work Phone: Comment on above: The validity of the calculated GFR & GFRAA in patients over 70 years has not been determined. Clinical correlation is essential. Serum or plasma urea nitroge n measurement (mass/volume)on 04-28-2022 Urea nitrogen [Mass/Vol] 21 mg/dL 7-18 [facility] Work Phone: Thin prep Papanicolaou smear with manual screeningon 04-28-2022 Thin prep Papanicolaou smear with manual screening 4 5-15 [facility] Work Phone: XR Foot - right AP and Later al and obliqueon 04-19-2022 IMPRESSION: Unchanged deformity of the right foot, no acute bony process is identified. Carpenter Maintenance: YOBANY Transcribe Date/Time: Apr 19 2022 7:25A Dictated by : LESA MCLAUGHLIN MD This examination was interpreted and the report reviewed and electronically signed by: LESA MCLAUGHLIN MD on Apr 19 2022 7:27AM [facility] * * *Final Report* * * DATE OF EXAM: Apr 18 2022 3:07PM JOSE ALBERTO 5337 - XR FOOT 3V AP/LAT/OBL RT / PROCEDURE REASON: [id number] * * * * Physician Interpretation * * * * HISTORY: RIGHT FOOT PAIN. Pain . TECHNIQUE: XR FOOT 3V AP/LAT/OBL RT Laterality: RIGHT Number of different views (projections): 3 COMPARISON: February 2018 RESULT: Equinovarus deformity again identified. Bones are osteoporotic unchanged. No fracture. Joint spaces are grossly maintained. [facility] Provider, Susanne Patel [facility] - 04/19/2022 * * *Final Report* * * DATE OF EXAM: Apr 18 2022 3:07PM JOSE ALBERTO 5337 - XR FOOT 3V AP/LAT/OBL RT / PROCEDURE REASON: [id number] * * * * Physician Interpretation * * * * HISTORY: RIGHT FOOT PAIN. Pain . TECHNIQUE: XR FOOT 3V AP/LAT/OBL RT Laterality: RIGHT Number of different views (projections): 3 COMPARISON: February 2018 RESULT: Equinovarus deformity again identified. Bones are osteoporotic unchanged. No fracture. Joint spaces are grossly maintained. IMPRESSION IMPRESSION: Unchanged deformity of the right foot, no acute bony process is identified. Carpenter Maintenance: PSCB Transcribe Date/Time: Apr 19 2022 7:25A Dictated by : LESA MCLAUGHLIN MD This examination was interpreted and the report reviewed and electronically signed by: LESA MCLAUGHLIN MD on Apr 19 2022 7:27AM [facility] XR Foot - right AP and Later al and obliqueOrdered By: Ccf Provider on 04-19-2022 [facility] XR FOOT 3V AP/LAT/OBL RTon 1 06-18-2021 XR FOOT 3V AP/LAT/OBL RT * * *Final Report* * * DATE OF EXAM: Apr 18 2022 3:07PM MDPrashant 5337 - XR FOOT 3V AP/LAT/OBL RT / PROCEDURE REASON: [id number] * * * * Physician Interpretation * * * * HISTORY: RIGHT FOOT PAIN. Pain . TECHNIQUE: XR FOOT 3V AP/LAT/OBL RT Laterality: RIGHT Number of different views (projections): 3 COMPARISON: February 2018 RESULT: Equinovarus deformity again identified. Bones are osteoporotic unchanged. No fracture. Joint spaces are grossly maintained. IMPRESSION: Unchanged deformity of the right foot, no acute bony process is identified. Carpenter Maintenance: PSCB Transcribe Date/Time: Apr 19 2022 7:25A Dictated by : LESA MCLAUGHLIN MD This examination was interpreted and the report reviewed and electronically signed by: LESA MCLAUGHLIN MD on Apr 19 2022 7:27AM EST [id number] N [facility] XR Foot - right AP and Later al and obliqueon 04-18-2022 Radiology Study observation (narrative) [facility] URINE CULTURE,BACTERIALon URINE CULTURE,BACTERIAL PATIENT: ROMAIN MCDERMOTT [place] [facility] [place]#: [id number] : 44 AGE: SEX: F ORDERED BY: RG MENCHACA SOURCE: URINE COLLECTED: 03/12/22 13:05 ANTIBIOTICS AT [place].: RECEIVED : 03/13/22 23:52 SITE: Clean Catch/Voided R E S U L T S URINE CULTURE,BACTERIAL FINAL 03/14/22 18:39 MULTIPLE ORGANISMS PRESENT, PROBABLE CONTAMINATION PLEASE REPEAT CULTURE. Normal [facility] Comment on above: Performed By: #### U RINC #### [facility] [address] [place] [address] URINE CULTURE,BACTERIALon URINE CULTURE,BACTERIAL PATIENT: ROMAIN MCDERMOTT [place] [facility] [place]#: [id number] : 44 AGE: SEX: F ORDERED BY: RG MENCHACA SOURCE: URINE COLLECTED: 03/08/22 05:42 ANTIBIOTICS AT [place].: RECEIVED : 03/08/22 20:26 SITE: Unspecified R E S U L T S URINE CULTURE,BACTERIAL FINAL 03/09/22 12:43 MULTIPLE ORGANISMS PRESENT, PROBABLE CONTAMINATION PLEASE REPEAT CULTURE. Normal [facility] Comment on above: Performed By: #### U RINC #### [facility] [address] [place] [address] Absolute lymphocyte counton 03-01-2022 Lymphocytes Auto (Unsp spec) [#/Vol] 2.41 10*3/uL 0.83-4.51 [facility] Work Phone: Basophil percentageon 2021 Basophils/100 WBC (Bld) 0.5 % 0-1 [facility] Work Phone: Chloride [Moles/Vol] 101 mmol/L 98-107 [facility] Work Phone: Eosinophils/100 WBC (Bld) 1.7 % 0-5 [facility] Work Phone: Glucose [Mass/Vol] 237 mg/dL 74-106 [facility] Work Phone: Comment on above: Glucose result great er than or equal to 200 mg/dLsuggests DIABETES MELLITUS per A.D.A. criteria. Neutrophils (Bld) [#/Vol] 6.7 10*3/uL 2.0-7.7 [facility] Work Phone: Neutrophils/100 WBC (Bld) 66.4 % 47-70 [facility] Work Phone: Potassium [Moles/Vol] 4.4 mmol/L 3.5-5.1 [facility] Work Phone: Sodium [Moles/Vol] 136 mmol/L 136-145 [facility] Work Phone: WBC (Bld) [#/Vol] 10.0 10*3/uL 4.4-11.0 [facility] Work Phone: Blood erythrocytes count (nu mber/volume)on 03-01-2022 RBC (Bld) [#/Vol] 4.90 10*6/uL 4.2-5.4 [facility] Work Phone: Blood hemoglobin measurement (mass/volume)on 03-01-2022 Hemoglobin (Bld) [Mass/Vol] 14.0 g/dL 12.0-15.0 [facility] Work Phone: Blood lymphocytes/100 leukoc yteson 03-01-2022 Lymphocytes/100 WBC (Bld) 24.0 % 19-41 [facility] Work Phone: Blood monocytes/100 leukocyt eson 03-01-2022 Monocytes/100 WBC (Bld) 6.6 % 0-10 [facility] Work Phone: Blood platelet mean volumeon 03-01-2022 Platelet mean volume (Bld) [Entitic vol] 10.1 fL 6.2-12.0 [facility] Work Phone: Determination of erythrocyte mean corpuscular volume (MCV)on 03-01-2022 MCV (RBC) [Entitic vol] 86.9 fL 81-99 [facility] Work Phone: Hematocrit Auto (Bld) [Volum e fraction]on 03-01-2022 Hematocrit (Bld) [Volume fraction] 42.6 % 37-47 [facility] Work Phone: Laboratory - Chemistry and C hemistry - challengeon 03-01-2022 CO2 [Moles/Vol] 27.0 mmol/L 21.0-32.0 [facility] Work Phone: Urea nitrogen/Creatinine [Mass ratio] 23.0 mg/mg 10-20 [facility] Work Phone: Laboratory - Hematology and Cell countson 03-01-2022 Erythrocyte distribution width (RBC) [Entitic vol] 44.4 fL 35.1-43.9 [facility] Work Phone: Erythrocyte distribution width (RBC) [Ratio] 13.8 % 11.6-14.6 [facility] Work Phone: Immature granulocytes/100 WBC (Bld) 0.800 % 0.0-0.9 [facility] Work Phone: Comment on above: IG% - Immature Granu locytes (promyelocytes, myelocytes and metamyelocytes) > 1% indicates that a LEFT SHIFT is Present. MCH (RBC) [Entitic mass] 28.6 pg 27.0-32.0 [facility] Work Phone: Nucleated RBC/100 WBC (Bld) [Ratio] 0 % 0-5 [facility] Work Phone: MCHC Auto (RBC) [Mass/Vol]on 03-01-2022 MCHC (RBC) [Mass/Vol] 32.9 g/dL 32-36 [facility] Work Phone: No Panel Informationon 03-01 Estimated Creatinine Clearance Calc 37.74 ml/min [facility] Work Phone: Estimated GFR (MDRD) Amer 69 mL/min >60 [facility] Work Phone: Comment on above: GFR Calc Estimated GFR (MDRD) Non-Af Amer 57 mL/min >60 [facility] Work Phone: Comment on above: Non- GFR Calc Platelets bldon 03-01-2022 Platelets (Bld) [#/Vol] 228 10*3/uL 150-450 [facility] Work Phone: Serum or plasma acetone roger urement (mass/volume)on 03-01-2022 Acetone [Mass/Vol] Negative NEG [facility] Work Phone: Serum or plasma calcium roger urement (mass/volume)on 03-01-2022 Calcium [Mass/Vol] 10.1 mg/dL 8.5-10.1 [facility] Work Phone: Serum or plasma creatinine m easurement (mass/volume)on 03-01-2022 Creatinine [Mass/Vol] 1.00 mg/dL 0.55-1.02 [facility] Work Phone: Comment on above: The validity of the calculated GFR & GFRAA in patients over 70 years has not been determined. Clinical correlation is essential. Serum or plasma urea nitroge n measurement (mass/volume)on 03-01-2022 Urea nitrogen [Mass/Vol] 23 mg/dL 7-18 [facility] Work Phone: Thin prep Papanicolaou smear with manual screeningon 03-01-2022 Thin prep Papanicolaou smear with manual screening 8 5-15 [facility] Work Phone: C peptide SerPl-ncon 11-15 C peptide [Mass/Vol] <0.20 Low 0.81-3.85 [facility] Comment on above: Order Comment: Malini solorio Type: BLOOD SPECIMEN Ordering Facility: Address: [address] [place] [address] Result Comment: Resu lt rechecked. Performed By: #### 1 [id number] #### [facility] CLIA [id number] [address] [place] [address] [place] GAD65 Ab Ser-aCncon 11-16-19 22 Glutamate decarboxylase 65 Ab Qn (S) >120.0 High <=5.0 [facility] Comment on above: Order Comment: Malini [facility] Type: BLOOD SPECIMEN Ordering Facility: Address: [address] [place] [address] Result Comment: Anti -glutamic acid decarboxylase antibody [...] is required. Performed By: #### I NSLAB, 84125-3 #### [facility] [place] [id number] [address] [place] [address] [place] GLUCOSE RANDOM BLDon 022 Glucose [Mass/Vol] 94 mg/dL 74 - 99 mg/dL [facility] Glucose SerPl-ncon 022 Glucose [Mass/Vol] 94 mg/dL Normal 74-99 [facility] Comment on above: Order Comment: Malini solorio Type: BLOOD SPECIMEN Ordering Facility: Address: [address] [place] [address] Result Comment: The [place] [employer] Association (ADA) provides guidance for cutoff [...] Standards of Medical Care in Diabetes 2016, [employer]. Diabetes Care. 2016.39(Suppl 1). Performed By: #### 2 345-7, 3016-3 #### [facility] CLIA [id number] [address] [place] [address] [place] Glutamate decarboxylase 65 A b Qn (S)on 11-15-2021 GLUTAMIC ACID DECARBOXYLAS AB QUALITATIVE Positive Abnormal Negative [facility] Comment on above: Order Comment: Malini solorio Type: BLOOD SPECIMEN Ordering Facility: Address: [address] [place] [address] Performed By: #### I NSKATIE, 67810-1 #### [facility] CLIA [id number] [address] [place] [address] [place] HEMOGLOBIN A1C (POC)on 11-15 HbA1c (Bld) [Mass fraction] 8.1 % Abnormal 4.2 - 5.6 % [facility] INSULIN ANTIBODY BLDon 11-15 Insulin Ab Qn (S) <0.4 Normal <0.4 [facility] Comment on above: Order Comment: Malini solorio Type: BLOOD SPECIMEN Ordering Facility: Address: [address] [place] [address] Result Comment: Anti -insulin antibody test is used as an aid in diagnosis and prognosis of autoimmune diabetes mellitus in combination with other tests such as anti-GAD65 and anti-IA-2 antibody. A single negative result cannot rule out autoimmune diabetes mellitus. The test is not reliable in patients who had previously received exogenous insulin. Clinical correlation is required. Performed By: #### I NSLAB, 00948-5 #### [facility] CLIA [id number] [address] [place] INSULIN ANTIBODY, QUALITATIVE Negative Normal Negative [facility] Comment on above: Order Comment: Malini solorio Type: BLOOD SPECIMEN Ordering Facility: Address: [address] [place] [address] Performed By: #### I NSLAB, 21917-4 #### [facility] CLIA [id number] [address] [place] [address] OF [place] INSULINOMA ASSOCIATED ANTIBO DY 2on 11-15-2021 [place] 2 ANTIBODY BLOOD <5.4 Normal <7.5 [facility] [facility] Comment on above: Order Comment: Malini solorio Type: BLOOD SPECIMEN Ordering Facility: Address: [address] [place] [address] Result Comment: Anti -insulinoma associated antigen 2 (IA-2) antibody test is used as an aid in diagnosis of type I diabetes mellitus, to predict the risk of progression to type I diabetes mellitus among susceptible individuals, and to predict the necessity of insulin therapy in adult-onset diabetes mellitus. Clinical correlation is required. Performed By: #### I A2AB #### [facility] CLIA [id number] [address] [place] [address] OF [place] ISLET CELL ABon 11-15-2021 ISLET CELL AB <1:4 Normal <1:4 [facility] Comment on above: Order Comment: Malini solorio Type: BLOOD SPECIMEN Ordering Facility: Address: [address] [place] [address] Result Comment: INTE RPRETIVE INFORMATION: Islet Cell [...] developed and its performance characteristics determined by [employer]. It has not been cleared or approved by the [place] Food and Drug Administration. This test was performed in a CLIA certified laboratory and is intended for clinical purposes. Performed By: [employer] [address] [place], [place] [id number] Home Service Advisor: Abdirizak Quintana MD, PhD Performed By: #### I SLET #### [facility] CLIA [id number] [address] [place] [address] T4 Free SerPl-mCncon 2 022 Free T4 [Mass/Vol] 1.9 ng/dL High 0.9-1.7 [facility] Comment on above: Order Comment: Speci men Type: BLOOD SPECIMEN Ordering Facility: Address: [address] [place] [address] Performed By: #### 3 024-7 #### [facility] CLIA [id number] [address] [place] [address] [place] TSH BLDon 11-15-2021 TSH Qn 0.073 m[IU]/L Low 0.270 - 4.200 mIU/L [facility] TSH SerPl-aCncon 11-15-2021 TSH Qn 0.073 m[IU]/L Low 0.270-4.200 [facility] Comment on above: Order Comment: Speci men Type: BLOOD SPECIMEN Ordering Facility: Address: [address] [place] [address] Performed By: #### 2 [id number], 3016-3 #### [facility] CLIA [id number] [address] [place] Absolute lymphocyte counton 08-30-2021 Lymphocytes Auto (Unsp spec) [#/Vol] 2.76 10*3/uL 0.83-4.51 [facility] Work Phone: Basophil percentageon 2021 Basophils/100 WBC (Bld) 0.5 % 0-1 [facility] Work Phone: Chloride [Moles/Vol] 104 mmol/L 98-107 [facility] Work Phone: Eosinophils/100 WBC (Bld) 1.3 % 0-5 [facility] Work Phone: Glucose [Mass/Vol] 205 mg/dL 74-106 [facility] Work Phone: Comment on above: Glucose result great er than or equal to 200 mg/dLsuggests DIABETES MELLITUS per A.D.A. criteria. Neutrophils (Bld) [#/Vol] 10.9 10*3/uL 2.0-7.7 [facility] Work Phone: Neutrophils/100 WBC (Bld) 70.9 % 47-70 [facility] Work Phone: Potassium [Moles/Vol] 4.2 mmol/L 3.5-5.1 [facility] Work Phone: Sodium [Moles/Vol] 138 mmol/L 136-145 [facility] Work Phone: WBC (Bld) [#/Vol] 15.4 10*3/uL 4.4-11.0 [facility]: Blood erythrocytes count (nu mber/volume)on 08-30-2021 RBC (Bld) [#/Vol] 4.32 10*6/uL 4.2-5.4 [facility] Work Phone: Blood hemoglobin measurement (mass/volume)on 08-30-2021 Hemoglobin (Bld) [Mass/Vol] 12.9 g/dL 12.0-15.0 [facility] Work Phone: Blood lymphocytes/100 leukoc yteson 08-30-2021 Lymphocytes/100 WBC (Bld) 18.0 % 19-41 [facility] Work Phone: Blood monocytes/100 leukocyt eson 08-30-2021 Monocytes/100 WBC (Bld) 7.5 % 0-10 [facility] Work Phone: Blood platelet mean volumeon 08-30-2021 Platelet mean volume (Bld) [Entitic vol] 10.7 fL 6.2-12.0 [facility] Work Phone: Determination of erythrocyte mean corpuscular volume (MCV)on 08-30-2021 MCV (RBC) [Entitic vol] 88.0 fL 81-99 [facility] Work Phone: Hematocrit Auto (Bld) [Volum e fraction]on 08-30-2021 Hematocrit (Bld) [Volume fraction] 38.0 % 37-47 [facility] Work Phone: Laboratory - Chemistry and C hemistry - challengeon 08-30-2021 CO2 [Moles/Vol] 26.0 mmol/L 21.0-32.0 [facility] Work Phone: Urea nitrogen/Creatinine [Mass ratio] 20.2 mg/mg 10-20 [facility] Work Phone: Laboratory - Hematology and Cell countson 08-30-2021 Erythrocyte distribution width (RBC) [Entitic vol] 46.1 fL 35.1-43.9 [facility] Work Phone: Erythrocyte distribution width (RBC) [Ratio] 14.4 % 11.6-14.6 [facility] Work Phone: Immature granulocytes/100 WBC (Bld) 1.800 % 0.0-0.9 [facility] Work Phone: Comment on above: IG% - Immature Granu locytes (promyelocytes, myelocytes and metamyelocytes) > 1% indicates that a LEFT SHIFT is Present. MCH (RBC) [Entitic mass] 29.9 pg 27.0-32.0 [facility] Work Phone: Nucleated RBC/100 WBC (Bld) [Ratio] 0 % 0-5 [facility] Work Phone: MCHC Auto (RBC) [Mass/Vol]on 08-30-2021 MCHC (RBC) [Mass/Vol] 33.9 g/dL 32-36 [facility] Work Phone: No Panel Informationon 08-30 Estimated Creatinine Clearance Calc 27.76 ml/min [facility] Work Phone: Estimated GFR (MDRD) Amer 54 mL/min >60 [facility] Work Phone: Comment on above: GFR Calc Estimated GFR (MDRD) Non-Af Amer 44 mL/min >60 [facility] Work Phone: Comment on above: Non- GFR Calc Platelets bldon 08-30-2021 Platelets (Bld) [#/Vol] 236 10*3/uL 150-450 [facility] Work Phone: Serum or plasma calcium roger urement (mass/volume)on 08-30-2021 Calcium [Mass/Vol] 9.5 mg/dL 8.5-10.1 [facility] Work Phone: Serum or plasma creatinine m easurement (mass/volume)on 08-30-2021 Creatinine [Mass/Vol] 1.24 mg/dL 0.55-1.02 [facility] Work Phone: Comment on above: The validity of the calculated GFR & GFRAA in patients over 70 years has not been determined. Clinical correlation is essential. Serum or plasma urea nitroge n measurement (mass/volume)on 08-30-2021 Urea nitrogen [Mass/Vol] 25 mg/dL 7-18 [facility] Work Phone: Thin prep Papanicolaou smear with manual screeningon 08-30-2021 Thin prep Papanicolaou smear with manual screening 8 5-15 [facility] Work Phone: Absolute lymphocyte counton 08-19-2021 Lymphocytes Auto (Unsp spec) [#/Vol] 2.66 10*3/uL 0.83-4.51 [facility] Work Phone: Basophil percentageon 2021 Chloride [Moles/Vol] 108 mmol/L 98-107 [facility] Work Phone: Glucose [Mass/Vol] 86 mg/dL 74-106 [facility] Work Phone: Potassium [Moles/Vol] 3.6 mmol/L 3.5-5.1 [facility] Work Phone: Sodium [Moles/Vol] 137 mmol/L 136-145 [facility] Work Phone: Basophils/100 WBC (Bld) 0.4 % 0-1 [facility] Work Phone: Eosinophils/100 WBC (Bld) 0.4 % 0-5 [facility] Work Phone: Neutrophils (Bld) [#/Vol] 6.8 10*3/uL 2.0-7.7 [facility] Work Phone: Neutrophils/100 WBC (Bld) 66.0 % 47-70 [facility] Work Phone: WBC (Bld) [#/Vol] 10.3 10*3/uL 4.4-11.0 [facility] Work Phone: Blood erythrocytes count (nu mber/volume)on 08-19-2021 RBC (Bld) [#/Vol] 3.91 10*6/uL 4.2-5.4 [facility] Work Phone: Blood hemoglobin measurement (mass/volume)on 08-19-2021 Hemoglobin (Bld) [Mass/Vol] 11.3 g/dL 12.0-15.0 [facility] Work Phone: Blood lymphocytes/100 leukoc yteson 08-19-2021 Lymphocytes/100 WBC (Bld) 25.9 % 19-41 [facility] Work Phone: Blood monocytes/100 leukocyt eson 08-19-2021 Monocytes/100 WBC (Bld) 6.9 % 0-10 [facility] Work Phone: Blood platelet mean volumeon 08-19-2021 Platelet mean volume (Bld) [Entitic vol] 11.1 fL 6.2-12.0 [facility] Work Phone: Determination of erythrocyte mean corpuscular volume (MCV)on 08-19-2021 MCV (RBC) [Entitic vol] 85.9 fL 81-99 [facility] Work Phone: Glucose Glucometer (BldC) [M ass/Vol]on 08-19-2021 Glucose [Mass/Vol] 252 mg/dL 74-106 [facility] Work Phone: Comment on above: MANAGEMENT OF PATIEN T CARE PER NURSING PROTOCOL Hematocrit Auto (Bld) [Volum e fraction]on 08-19-2021 Hematocrit (Bld) [Volume fraction] 33.6 % 37-47 [facility] Work Phone: Laboratory - Chemistry and C hemistry - challengeon 08-19-2021 CO2 [Moles/Vol] 23.0 mmol/L 21.0-32.0 [facility] Work Phone: Urea nitrogen/Creatinine [Mass ratio] 24.0 mg/mg 10-20 [facility] Work Phone: Laboratory - Hematology and Cell countson 08-19-2021 Erythrocyte distribution width (RBC) [Entitic vol] 44.3 fL 35.1-43.9 [facility] Work Phone: Erythrocyte distribution width (RBC) [Ratio] 14.1 % 11.6-14.6 [facility] Work Phone: Immature granulocytes/100 WBC (Bld) 0.400 % 0.0-0.9 [facility] Work Phone: Comment on above: IG% - Immature Granu locytes (promyelocytes, myelocytes and metamyelocytes) > 1% indicates that a LEFT SHIFT is Present. MCH (RBC) [Entitic mass] 28.9 pg 27.0-32.0 [facility] Work Phone: Nucleated RBC/100 WBC (Bld) [Ratio] 0 % 0-5 [facility] Work Phone: MCHC Auto (RBC) [Mass/Vol]on 08-19-2021 MCHC (RBC) [Mass/Vol] 33.6 g/dL 32-36 [facility] Work Phone: No Panel Informationon 08-19 Estimated Creatinine Clearance Calc 34.42 ml/min [facility] Work Phone: Estimated GFR (MDRD) Amer 102 mL/min >60 [facility] Work Phone: Comment on above: GFR Calc Estimated GFR (MDRD) Non-Af Amer 84 mL/min >60 [facility] Work Phone: Comment on above: Non- GFR Calc Platelets bldon 08-19-2021 Platelets (Bld) [#/Vol] 160 10*3/uL 150-450 [facility] Work Phone: Serum or plasma calcium roger urement (mass/volume)on 08-19-2021 Calcium [Mass/Vol] 8.3 mg/dL 8.5-10.1 [facility] Work Phone: Serum or plasma creatinine m easurement (mass/volume)on 08-19-2021 Creatinine [Mass/Vol] 0.71 mg/dL 0.55-1.02 [facility] Work Phone: Comment on above: The validity of the calculated GFR & GFRAA in patients over 70 years has not been determined. Clinical correlation is essential. Serum or plasma urea nitroge n measurement (mass/volume)on 08-19-2021 Urea nitrogen [Mass/Vol] 17 mg/dL 7-18 [facility] Work Phone: Thin prep Papanicolaou smear with manual screeningon 08-19-2021 Thin prep Papanicolaou smear with manual screening 6 5-15 [facility] Work Phone: Absolute lymphocyte counton 08-18-2021 Lymphocytes Auto (Unsp spec) [#/Vol] 2.55 10*3/uL 0.83-4.51 [facility] Work Phone: Basophil percentageon 2021 Chloride [Moles/Vol] 103 mmol/L 98-107 [facility] Work Phone: Glucose [Mass/Vol] 314 mg/dL 74-106 [facility] Work Phone: Comment on above: Glucose result great er than or equal to 200 mg/dLsuggests DIABETES MELLITUS per A.D.A. criteria. Potassium [Moles/Vol] 6.1 mmol/L 3.5-5.1 [facility] Work Phone: Comment on above: Slight Hemolysis, Re sult may be falsely increased. Critical Result(s) Called at: 20:20:17 08/18/2021 by: Porsha mckenzie [facility] Results read back by same. Sodium [Moles/Vol] 133 mmol/L 136-145 [facility] Work Phone: Basophil percentage 0 SEEN /hpf [facility] Work Phone: Basophils/100 WBC (Bld) 0.3 % 0-1 [facility] Work Phone: Bilirubin [Mass/Vol] 0.90 mg/dL 0.20-1.00 [facility] Work Phone: Comment on above: For patients on eltr ombopag therapy, use of Dimension [place] TBIL is not recommended. Eosinophils/100 WBC (Bld) 0.0 % 0-5 [facility] Work Phone: Neutrophils (Bld) [#/Vol] 9.2 10*3/uL 2.0-7.7 [facility] Work Phone: Neutrophils/100 WBC (Bld) 74.2 % 47-70 [facility] Work Phone: Protein [Mass/Vol] 7.7 g/dL 6.4-8.2 [facility] Work Phone: WBC (Bld) [#/Vol] 12.4 10*3/uL 4.4-11.0 [facility] Work Phone: Bilirubin Test strip Ql (U)o n 08-18-2021 Bilirubin Ql (U) Negative Negative [facility] Work Phone: Blood erythrocytes count (nu mber/volume)on 08-18-2021 RBC (Bld) [#/Vol] 4.91 10*6/uL 4.2-5.4 [facility] Work Phone: Blood hemoglobin measurement (mass/volume)on 08-18-2021 Hemoglobin (Bld) [Mass/Vol] 14.3 g/dL 12.0-15.0 [facility] Work Phone: Blood lymphocytes/100 leukoc yteson 08-18-2021 Lymphocytes/100 WBC (Bld) 20.6 % 19-41 [facility] Work Phone: Blood monocytes/100 leukocyt eson 08-18-2021 Monocytes/100 WBC (Bld) 4.1 % 0-10 [facility] Work Phone: Blood platelet mean volumeon 08-18-2021 Platelet mean volume (Bld) [Entitic vol] 10.9 fL 6.2-12.0 [facility] Work Phone: Determination of erythrocyte mean corpuscular volume (MCV)on 08-18-2021 MCV (RBC) [Entitic vol] 86.4 fL 81-99 [facility] Work Phone: Glucose Glucometer (BldC) [M ass/Vol]on 08-18-2021 Glucose [Mass/Vol] 276 mg/dL 74-106 [facility] Work Phone: Comment on above: MANAGEMENT OF PATIEN T CARE PER NURSING PROTOCOL HCO3 (BldA) [Moles/Vol]on HCO3 (Bld) [Moles/Vol] 19 mmol/L 22-26 [facility] Work Phone: Hematocrit Auto (Bld) [Volum e fraction]on 08-18-2021 Hematocrit (Bld) [Volume fraction] 42.4 % 37-47 [facility] Work Phone: Hyaline casts LM.LPF (Urine sed) [#/Area]on 08-18-2021 Hyaline casts (Urine sed) [#/Area] 5 /[LPF] [facility] Work Phone: Ketones Test strip Ql (U)on 08-18-2021 Ketones Ql (U) 150 mg/dl Negative [facility] Work Phone: Comment on above: CRITICAL VALUE *HCRI TICAL VALUE VERIFIED. CALLED TO [id number]/01/22 1842 Porsha Vincenzo.RESULTS READ BACK BY SAME . Laboratory - Chemistry and C hemistry - challengeon 08-18-2021 CO2 [Moles/Vol] 19.0 mmol/L 21.0-32.0 [facility] Work Phone: Urea nitrogen/Creatinine [Mass ratio] 22.8 mg/mg 10-20 [facility] Work Phone: CO2 [Moles/Vol] 20 mmol/L 23-33 [facility] Work Phone: ALP [Catalytic activity/Vol] 105 U/L 45-117 [facility] Work Phone: ALT [Catalytic activity/Vol] 13 U/L 13-56 [facility] Work Phone: Globulin (S) [Mass/Vol] 3.7 g/dL 2.2-4.2 [facility] Work Phone: Laboratory - Hematology and Cell countson 08-18-2021 Erythrocyte distribution width (RBC) [Entitic vol] 43.5 fL 35.1-43.9 [facility] Work Phone: Erythrocyte distribution width (RBC) [Ratio] 13.7 % 11.6-14.6 [facility] Work Phone: Immature granulocytes/100 WBC (Bld) 0.800 % 0.0-0.9 [facility] Work Phone: Comment on above: IG% - Immature Granu locytes (promyelocytes, myelocytes and metamyelocytes) > 1% indicates that a LEFT SHIFT is Present. MCH (RBC) [Entitic mass] 29.1 pg 27.0-32.0 [facility] Work Phone: Nucleated RBC/100 WBC (Bld) [Ratio] 0 % 0-5 [facility] Work Phone: MCHC Auto (RBC) [Mass/Vol]on 08-18-2021 MCHC (RBC) [Mass/Vol] 33.7 g/dL 32-36 [facility] Work Phone: Mucus LM Ql (Urine sed)on Mucus Ql (Urine sed) 0 SEEN /hpf [facility] Work Phone: Nitrite Test strip Ql (U)on 08-18-2021 Nitrite Ql (U) Negative Negative [facility] Work Phone: No Panel Informationon 08-18 Estimated Creatinine Clearance Calc 28.41 ml/min [facility] Work Phone: Estimated GFR (MDRD) Amer 52 mL/min >60 [facility] Work Phone: Comment on above: GFR Calc Estimated GFR (MDRD) Non-Af Amer 43 mL/min >60 [facility] Work Phone: Comment on above: Non- GFR Calc Bed Mix Venous Bld PCO2 at [facility] Temp 42.1 mmHg 41-51 [facility] Work Phone: Blood Gas Specimen Type CATHY [facility] Work Phone: Venous Blood Base Excess -8 mmol/L -1.0-3.5 [facility] Work Phone: PO2 venouson 08-18-2021 Oxygen (BldV) [Partial pressure] 22 mm[Hg] 25-40 [facility] Work Phone: Platelets bldon 08-18-2021 Platelets (Bld) [#/Vol] 229 10*3/uL 150-450 [facility] Work Phone: Protein Test strip Ql (U)on 08-18-2021 Protein Ql (U) 30 mg/dl Negative [facility] Work Phone: Serum or plasma acetone roger urement (mass/volume)on 08-18-2021 Acetone [Mass/Vol] MODERATE NEG [facility] Work Phone: Serum or plasma albumin roger urement (mass/volume)on 08-18-2021 Albumin [Mass/Vol] 4.0 g/dL 3.2-5.0 [facility] Work Phone: Serum or plasma albumin/glob ulin mass ratioon 08-18-2021 Albumin/Globulin [Mass ratio] 1.1 {ratio} 0.9-2.4 [facility] Work Phone: Serum or plasma calcium roger urement (mass/volume)on 08-18-2021 Calcium [Mass/Vol] 9.3 mg/dL 8.5-10.1 [facility] Work Phone: Serum or plasma creatinine m easurement (mass/volume)on 08-18-2021 Creatinine [Mass/Vol] 1.27 mg/dL 0.55-1.02 [facility] Work Phone: Comment on above: The validity of the calculated GFR & GFRAA in patients over 70 years has not been determined. Clinical correlation is essential. Serum or plasma urea nitroge n measurement (mass/volume)on 08-18-2021 Urea nitrogen [Mass/Vol] 29 mg/dL 7-18 [facility] Work Phone: Squamous epithelial cells de tection in urine sediment by light microscopyon 08-18-2021 Epithelial cells.squamous LM Ql (Urine sed) 0 SEEN /hpf [facility] Work Phone: Thin prep Papanicolaou smear with manual screeningon 08-18-2021 Thin prep Papanicolaou smear with manual screening 11 5-15 [facility] Work Phone: Thin prep Papanicolaou smear with manual screening 10 U/L 15-37 [facility] Work Phone: Urine blood detectionon 04-0 RBC Ql (U) Negative Negative [facility] Work Phone: RBC Ql (U) 0 SEEN /hpf [facility] Work Phone: Urine clarityon 08-18-2021 Clarity (U) Clear Clear [facility] Work Phone: Urine color determinationon 08-18-2021 Color (U) Yellow Yellow [facility] Work Phone: Urine glucose detectionon Glucose Ql (U) 1000 mg/dl Normal [facility] Work Phone: Urine leukocyte esterase det ection by dipstickon 08-18-2021 Leukocyte esterase Test strip Ql (U) Negative Negative [facility] Work Phone: Urine pHon 08-18-2021 pH (U) 5.0 [pH] [facility] Work Phone: Urine sediment bacteria coun t by microscopy (number/high power field)on 08-18-2021 Bacteria LM.HPF (Urine sed) [#/Area] 0 /[HPF] None Seen [facility] Work Phone: Urine specific gravity measu rementon 08-18-2021 Specific gravity (U) [Rel density] 1.025 [facility] Work Phone: Urobilinogen Auto test strip Ql (U)on 08-18-2021 Urobilinogen Ql (U) Normal mg/dl Normal [facility] Work Phone: Vital signson 08-18-2021 Oxygen saturation in Blood 30 % 50-70 [facility] Work Phone: Whole blood hemoglobin A1c/t otal hemoglobin ratio (mass fraction)on 08-18-2021 HbA1c (Bld) [Mass fraction] 9.4 % 3.8-5.6 [facility] Work Phone: Comment on above: Normal < 5.7 % Predi abetic 5.7 - 6.4 % Diabetic >or= 6.5 % Please note range changes. pH measurementon 08-18-2021 pH (Unsp spec) 7.26 [pH] 7.32-7.42 [facility] Work Phone: Influenza virus A and B and SARS-CoV-2 (COVID-19) Ag panel - Upper respiratory specim SARS-CoV-2 (COVID-19) RNA SHABANA+probe Ql (Resp) [facility] Work Phone: Vital Signs Date Time Vital Sign Value Performing Clinician Faci lity 12-02-2024 08:08-0400 Body height 160.[address] Rg Menchaca MD Work Phone: [phone] [place] [address] 12-02-2024 08:08-0400 Body mass index (BMI) [Ratio] 24.3 kg/m2 Dr. Rg Menchaca MD Work Phone: 8(227)[phone] [place] [address] 12-02-2024 08:08-0400 Body temperature 96.4 [degF] Dr. Rg Menchaca MD Work Phone: 8(341)[phone] [place] [address] 12-02-2024 08:08-0400 Body weight 62.[address] Rg Menchaca MD Work Phone: 4(636)832-694453 [place] [address] 12-02-2024 08:08-0400 Diastolic blood pressure 67 mm[Hg] Dr. Rg Menchaca MD Work Phone: 5(879)855-284753 [place] [address] 12-02-2024 08:08-0400 Heart rate 82 /min Dr. Rg Menchaca MD Work Phone: 2(301)721-265353 [place] [address] 12-02-2024 08:08-0400 Respiratory rate 16 /min Dr. Rg Menchaca MD Work Phone: 7(249)[phone] [place] [address] 12-02-2024 08:08-0400 SaO2% (BldA) [Mass fraction] 96 % Dr. Rg Menchaca MD Work Phone: [phone] [place] [address] 12-02-2024 08:08-0400 Systolic blood pressure 110 mm[Hg] Dr. Rg Menchaca MD Work Phone: 3(882)[phone] [place] [address] 12-01-2024 08:09-0400 Body height 160.[address] Rg Menchaca MD Work Phone: 7(415)[phone] [place] [address] 12-01-2024 08:09-0400 Body mass index (BMI) [Ratio] 24.3 kg/m2 Dr. Rg Menchaca MD Work Phone: 6(534)[phone] [place] [address] 12-01-2024 08:09-0400 Body temperature 96.7 [degF] Dr. Rg Menchaca MD Work Phone: [phone](554)[phone] [place] [address] 12-01-2024 08:09-0400 Body weight 62.[address] Rg Menchaca MD Work Phone: [facility] 12-01-2024 08:09-0400 Diastolic blood pressure 75 mm[Hg] Dr. Rg Menchaca MD Work Phone: [facility] 12-01-2024 08:09-0400 Heart rate 78 /min Dr. Rg Menchaca MD Work Phone: [facility] 12-01-2024 08:09-0400 Respiratory rate 16 /min Dr. Rg Menchaca MD Work Phone: [facility] 12-01-2024 08:09-0400 SaO2% (BldA) [Mass fraction] 95 % Dr. Rg Menchaca MD Work Phone: [facility] 12-01-2024 08:09-0400 Systolic blood pressure 90 mm[Hg] Dr. Rg Menchaca MD Work Phone: [facility] 11-11-2024 12:42-0400 Diastolic blood pressure 67 mm[Hg] Windy Yuen MD Work Phone: [facility] 11-11-2024 12:42-0400 Heart rate 74 /min Windy Yuen MD Work Phone: [facility] 11-11-2024 12:42-0400 SaO2% (BldA) [Mass fraction] 96 % Windy Yuen MD Work Phone: [facility] 11-11-2024 12:42-0400 Systolic blood pressure 108 mm[Hg] Windy Yuen MD Work Phone: [facility] 11-05-2024 08:15-0400 Body height 160.[address] Rg Menchaca MD Work Phone: [facility] 11-05-2024 08:15-0400 Body mass index (BMI) [Ratio] 24.4 kg/m2 Dr. Rg Menchaca MD Work Phone: [facility] 11-05-2024 08:15-0400 Body temperature 96.5 [degF] Dr. Rg Menchaca MD Work Phone: [facility] 11-05-2024 08:15-0400 Body weight 62.[address] Rg Menchaca MD Work Phone: [facility] 11-05-2024 08:15-0400 Diastolic blood pressure 64 mm[Hg] Dr. Rg Menchaca MD Work Phone: 3(930)538-265453 [place] [address] 11-05-2024 08:15-0400 Heart rate 74 /min Dr. Rg Menchaca MD Work Phone: 7(373)740-827953 [place] [address] 11-05-2024 08:15-0400 Respiratory rate 16 /min Dr. Rg Menchaca MD Work Phone: 3(965)948-383853 [place] [address] 11-05-2024 08:15-0400 SaO2% (BldA) [Mass fraction] 95 % Dr. Rg Menchaca MD Work Phone: 9(310)160-444953 [place] [address] 11-05-2024 08:15-0400 Systolic blood pressure 142 mm[Hg] Dr. Rg Menchaca MD Work Phone: 8(552)560-132853 [place] [address] 11-04-2024 07:55-0400 Body height 160.[address] Rg Menchaca MD Work Phone: 4(337)278-348853 [place] [address] 11-04-2024 07:55-0400 Body mass index (BMI) [Ratio] 24.4 kg/m2 Dr. Rg Menchaca MD Work Phone: 0(252)903-468653 [place] [address] 11-04-2024 07:55-0400 Body temperature 96.2 [degF] Dr. Rg Menchaca MD Work Phone: 8(902)531-683153 [place] [address] 11-04-2024 07:55-0400 Body weight 62.[address] Rg Menchaca MD Work Phone: 7(382)554-987653 [place] [address] 11-04-2024 07:55-0400 Diastolic blood pressure 70 mm[Hg] Dr. Rg Menchaca MD Work Phone: 3(664)938-199853 [place] [address] 11-04-2024 07:55-0400 Heart rate 74 /min Dr. Rg Menchaca MD Work Phone: [facility] 11-04-2024 07:55-0400 Respiratory rate 16 /min Dr. Rg Menchaca MD Work Phone: 8(311)607-818648 [address] 11-04-2024 07:55-0400 SaO2% (BldA) [Mass fraction] 94 % Dr. Rg Menchaca MD Work Phone: 0(306)895-147353 [place] [address] 11-04-2024 07:55-0400 Systolic blood pressure 118 mm[Hg] Dr. Rg Menchaca MD Work Phone: 4(053)800-403548 [address] 11-03-2024 08:09-0400 Body height 160.[address] Rg Menchaca MD Work Phone: 2(625)999-117953 [place] [address] 11-03-2024 08:09-0400 Body mass index (BMI) [Ratio] 24.4 kg/m2 Dr. Rg Menchaca MD Work Phone: 2(667)832-427853 [place] [address] 11-03-2024 08:09-0400 Body temperature 97.5 [degF] Dr. Rg Menchaca MD Work Phone: 1(826)324-460653 [place] [address] 11-03-2024 08:09-0400 Body weight 62.[address] Rg Menchaca MD Work Phone: 8(088)015-402153 [place] [address] 11-03-2024 08:09-0400 Diastolic blood pressure 68 mm[Hg] Dr. Rg Menchaca MD Work Phone: 4(589)446-054653 [place] [address] 11-03-2024 08:09-0400 Heart rate 86 /min Dr. Rg Menchaca MD Work Phone: 7(869)799-470148 [address] 11-03-2024 08:09-0400 Respiratory rate 16 /min Dr. Rg Menchaca MD Work Phone: 6(208)677-378453 [place] [address] 11-03-2024 08:09-0400 Systolic blood pressure 116 mm[Hg] Dr. Rg Menchaca MD Work Phone: 9(028)274-662753 [place] [address] 10-08-2024 08:55-0400 Body temperature 97.1 [degF] Dr. Rg Menchaca MD Work Phone: 0(679)146-622548 [address] 10-08-2024 08:55-0400 Diastolic blood pressure 71 mm[Hg] Dr. Rg Menchaca MD Work Phone: [facility] 10-08-2024 08:55-0400 Heart rate 68 /min Dr. Rg Menchaca MD Work Phone: 4(862)974-133853 [place] [address] 10-08-2024 08:55-0400 Respiratory rate 16 /min Dr. Rg Menchaca MD Work Phone: 2(685)395-930453 [place] [address] 10-08-2024 08:55-0400 SaO2% (BldA) [Mass fraction] 94 % Dr. Rg Menchaca MD Work Phone: 2(479)664-984453 [place] [address] 10-08-2024 08:55-0400 Systolic blood pressure 116 mm[Hg] Dr. Rg Menchaca MD Work Phone: 0(366)781-728053 [place] [address] 10-07-2024 08:31-0400 Body height 160.[address] Rg Menchaca MD Work Phone: 5(169)710-678253 [place] [address] 10-07-2024 08:31-0400 Body mass index (BMI) [Ratio] 23.3 kg/m2 Dr. Rg Menchaca MD Work Phone: 1(251)145-941953 [place] [address] 10-07-2024 08:31-0400 Body temperature 97.2 [degF] Dr. Rg Menchaca MD Work Phone: 6(396)683-831853 [place] [address] 10-07-2024 08:31-0400 Body weight 59.[address] Rg Menchaca MD Work Phone: [facility] 10-07-2024 08:31-0400 Diastolic blood pressure 63 mm[Hg] Dr. Rg Menchaca MD Work Phone: 0(370)520-185653 [place] [address] 10-07-2024 08:31-0400 Heart rate 72 /min Dr. Rg Menchaca MD Work Phone: 0(762)090-284201 [place] [address] 10-07-2024 08:31-0400 Respiratory rate 14 /min Dr. Rg Menchaca MD Work Phone: 0(983)563-931201 [place] [address] 10-07-2024 08:31-0400 SaO2% (BldA) [Mass fraction] 96 % Dr. Rg Menchaca MD Work Phone: [facility] 10-07-2024 08:31-0400 Systolic blood pressure 112 mm[Hg] Dr. Rg Menchaca MD Work Phone: 5(509)935-624148 [address] 10-06-2024 08:06-0400 Body height 160.[address] Rg Menchaca MD Work Phone: 7(580)869-678853 [place] [address] 10-06-2024 08:06-0400 Body mass index (BMI) [Ratio] 24.4 kg/m2 Dr. Rg Menchaca MD Work Phone: 8(007)802-359553 [place] [address] 10-06-2024 08:06-0400 Body temperature 97.4 [degF] Dr. Rg Menchaca MD Work Phone: 9(578)469-950253 [place] [address] 10-06-2024 08:06-0400 Body weight 62.[address] Rg Menchaca MD Work Phone: 3(642)630-910053 [place] [address] 10-06-2024 08:06-0400 Diastolic blood pressure 59 mm[Hg] Dr. Rg Menchaca MD Work Phone: 9(226)558-399853 [place] [address] 10-06-2024 08:06-0400 Heart rate 73 /min Dr. Rg Menchaca MD Work Phone: 3(563)236-283453 [place] [address] 10-06-2024 08:06-0400 Respiratory rate 16 /min Dr. Rg Menchaca MD Work Phone: 9(939)786-271553 [place] [address] 10-06-2024 08:06-0400 SaO2% (BldA) [Mass fraction] 92 % Dr. Rg Menchaca MD Work Phone: 5(490)436-738653 [place] [address] 10-06-2024 08:06-0400 Systolic blood pressure 102 mm[Hg] Dr. Rg Menchaca MD Work Phone: 1(722)677-66[address] [place] [address] 09-10-2024 08:20-0400 Body height 160.[address] Rg Menchaca MD Work Phone: 5(334)406-143701 [place] [address] 09-10-2024 08:20-0400 Body mass index (BMI) [Ratio] 24.7 kg/m2 Dr. Rg Menchaca MD Work Phone: [facility] 09-10-2024 08:20-0400 Body temperature 96.8 [degF] Dr. Rg Menchaca MD Work Phone: [facility] 09-10-2024 08:20-0400 Body weight 63.[address] Rg Menchaca MD Work Phone: [facility] 09-10-2024 08:20-0400 Diastolic blood pressure 75 mm[Hg] Dr. Rg Menchaca MD Work Phone: 1(955)765-671348 [address] 09-10-2024 08:20-0400 Heart rate 78 /min Dr. Rg Menchaca MD Work Phone: 1(738)075-525048 [address] 09-10-2024 08:20-0400 Respiratory rate 16 /min Dr. Rg Menchaca MD Work Phone: 3(805)675-727248 [address] 09-10-2024 08:20-0400 SaO2% (BldA) [Mass fraction] 95 % Dr. Rg Menchaca MD Work Phone: [facility] 09-10-2024 08:20-0400 Systolic blood pressure 135 mm[Hg] Dr. Rg Menchaca MD Work Phone: [facility] 09-09-2024 12:17-0400 Body temperature 96 [degF] Dr. Rg Menchaca MD Work Phone: [facility] 09-09-2024 12:17-0400 Diastolic blood pressure 76 mm[Hg] Dr. Rg Menchaca MD Work Phone: 9(743)450-692948 [address] 09-09-2024 12:17-0400 Heart rate 68 /min Dr. Rg Menchaca MD Work Phone: [facility] 09-09-2024 12:17-0400 Respiratory rate 16 /min Dr. Rg Menchaca MD Work Phone: [facility] 09-09-2024 12:17-0400 Systolic blood pressure 117 mm[Hg] Dr. Rg Menchaca MD Work Phone: 8(812)929-681601 [place] [address] 09-09-2024 08:09-0400 Body height 160.[address] Rg Menchaca MD Work Phone: 0(147)868-389853 [place] [address] 09-09-2024 08:09-0400 Body mass index (BMI) [Ratio] 24.7 kg/m2 Dr. Rg Menchaca MD Work Phone: 1(518)267-434953 [place] [address] 09-09-2024 08:09-0400 Body weight 63.[address] Rg Menchaca MD Work Phone: 4(117)866-449953 [place] [address] 09-09-2024 08:09-0400 SaO2% (BldA) [Mass fraction] 94 % Dr. Rg Menchaca MD Work Phone: 4(447)828-239153 [place] [address] 09-08-2024 08:33-0400 Body mass index (BMI) [Ratio] 24.7 kg/m2 Dr. Rg Menchaca MD Work Phone: 8(374)833-818053 [place] [address] 09-08-2024 08:33-0400 Body temperature 96.5 [degF] Dr. Rg Menchaca MD Work Phone: 7(217)744-830553 [place] [address] 09-08-2024 08:33-0400 Body weight 63.[address] Rg Menchaca MD Work Phone: 1(479)895-656253 [place] [address] 09-08-2024 08:33-0400 Diastolic blood pressure 75 mm[Hg] Dr. Rg Menchaca MD Work Phone: 6(973)952-172053 [place] [address] 09-08-2024 08:33-0400 Heart rate 80 /min Dr. Rg Menchaca MD Work Phone: 8(513)521-244253 [place] [address] 09-08-2024 08:33-0400 Respiratory rate 16 /min Dr. Rg Menchaca MD Work Phone: 6(365)838-970553 [place] [address] 09-08-2024 08:33-0400 SaO2% (BldA) [Mass fraction] 93 % Dr. Rg Menchaca MD Work Phone: 4(961)071-129953 [place] [address] 09-08-2024 08:33-0400 Systolic blood pressure 126 mm[Hg] Dr. Rg Menchaca MD Work Phone: [facility] 08-13-2024 10:15-0400 Body height 160.[address] Rg Menchaca MD Work Phone: 6(235)661-345701 [place] [address] 08-13-2024 10:15-0400 Body mass index (BMI) [Ratio] 24.9 kg/m2 Dr. Rg Menchaca MD Work Phone: 0(334)593-155153 [place] [address] 08-13-2024 10:15-0400 Body temperature 96.6 [degF] Dr. Rg Menchaca MD Work Phone: 2(079)528-280953 [place] [address] 08-13-2024 10:15-0400 Body weight 63.[address] Rg Menchaca MD Work Phone: 5(878)264-044353 [place] [address] 08-13-2024 10:15-0400 Diastolic blood pressure 72 mm[Hg] Dr. Rg Menchaca MD Work Phone: 8(621)183-018953 [place] [address] 08-13-2024 10:15-0400 Heart rate 73 /min Dr. Rg Menchaca MD Work Phone: 1(673)353-697953 [place] [address] 08-13-2024 10:15-0400 Respiratory rate 16 /min Dr. Rg Menchaca MD Work Phone: 9(035)412-287253 [place] [address] 08-13-2024 10:15-0400 SaO2% (BldA) [Mass fraction] 95 % Dr. Rg Menchaca MD Work Phone: 4(612)028-283601 [place] [address] 08-13-2024 10:15-0400 Systolic blood pressure 121 mm[Hg] Dr. Rg Menchaca MD Work Phone: 2(056)886-047353 [place] [address] 08-12-2024 08:09-0400 Body height 160.[address] Rg Menchaca MD Work Phone: 2(723)741-677653 [place] [address] 08-12-2024 08:09-0400 Body mass index (BMI) [Ratio] 24.9 kg/m2 Dr. Rg Menchaca MD Work Phone: 3(669)032-532553 [place] [address] 08-12-2024 08:09-0400 Body temperature 96.8 [degF] Dr. Rg Menchaca MD Work Phone: 5(245)365-797301 [place] [address] 08-12-2024 08:09-0400 Body weight 63.[address] Rg Menchaca MD Work Phone: [facility] 08-12-2024 08:09-0400 Diastolic blood pressure 59 mm[Hg] Dr. Rg Menchaca MD Work Phone: 6(174)421-761253 [place] [address] 08-12-2024 08:09-0400 Heart rate 79 /min Dr. Rg Menchaca MD Work Phone: 1(839)905-122353 [place] [address] 08-12-2024 08:09-0400 Respiratory rate 16 /min Dr. Rg Menchaca MD Work Phone: 3(772)448-189453 [place] [address] 08-12-2024 08:09-0400 SaO2% (BldA) [Mass fraction] 95 % Dr. Rg Menchaca MD Work Phone: 0(160)357-967453 [place] [address] 08-12-2024 08:09-0400 Systolic blood pressure 104 mm[Hg] Dr. Rg Menchaca MD Work Phone: 9(445)731-757753 [place] [address] 08-11-2024 08:01-0400 Body height 160.[address] Rg Menchaca MD Work Phone: 6(815)641-909253 [place] [address] 08-11-2024 08:01-0400 Body mass index (BMI) [Ratio] 24.9 kg/m2 Dr. Rg Menchaca MD Work Phone: 6(798)785-139601 [place] [address] 08-11-2024 08:01-0400 Body temperature 96.8 [degF] Dr. Rg Menchaca MD Work Phone: 3(872)642-389253 [place] [address] 08-11-2024 08:01-0400 Body weight 63.[address] Rg Menchaca MD Work Phone: 7(676)620-491553 [place] [address] 08-11-2024 08:01-0400 Diastolic blood pressure 73 mm[Hg] Dr. Rg Menchaca MD Work Phone: 3(537)581-966453 [place] [address] 08-11-2024 08:01-0400 Heart rate 83 /min Dr. Rg Menchaca MD Work Phone: [facility] 08-11-2024 08:01-0400 Respiratory rate 16 /min Dr. Rg Menchaca MD Work Phone: 4(640)736-480653 [place] [address] 08-11-2024 08:01-0400 SaO2% (BldA) [Mass fraction] 94 % Dr. Rg Menchaca MD Work Phone: 6(142)050-810601 [place] [address] 08-11-2024 08:01-0400 Systolic blood pressure 116 mm[Hg] Dr. Rg Menchaca MD Work Phone: 3(394)486-585253 [place] [address] 07-16-2024 08:39-0500 Body mass index (BMI) [Ratio] 24.3 kg/m2 Dr. Rg Menchaca MD Work Phone: 5(525)785-812753 [place] [address] 07-16-2024 08:39-0500 Body temperature 96.6 [degF] Dr. Rg Menchaca MD Work Phone: 3(138)119-993953 [place] [address] 07-16-2024 08:39-0500 Body weight 62.[address] Rg Menchaca MD Work Phone: 2(169)230-607353 [place] [address] 07-16-2024 08:39-0500 Diastolic blood pressure 71 mm[Hg] Dr. Rg Menchaca MD Work Phone: 2(038)772-941553 [place] [address] 07-16-2024 08:39-0500 Heart rate 80 /min Dr. Rg Menchaca MD Work Phone: 1(351)070-476253 [place] [address] 07-16-2024 08:39-0500 Respiratory rate 16 /min Dr. Rg Menchaca MD Work Phone: 7(278)219-382248 [address] 07-16-2024 08:39-0500 SaO2% (BldA) [Mass fraction] 96 % Dr. Rg Menchaca MD Work Phone: 2(755)931-724153 [place] [address] 07-16-2024 08:39-0500 Systolic blood pressure 133 mm[Hg] Dr. Rg Menchaca MD Work Phone: 0(386)140-450353 [place] [address] 07-15-2024 13:02-0500 Body temperature 96.5 [degF] Dr. Rg Menchaca MD Work Phone: [facility] 07-15-2024 13:02-0500 Diastolic blood pressure 65 mm[Hg] Dr. Rg Menchaca MD Work Phone: 3(001)505-709253 [place] [address] 07-15-2024 13:02-0500 Heart rate 75 /min Dr. Rg Menchaca MD Work Phone: 2(359)659-887353 [place] [address] 07-15-2024 13:02-0500 Systolic blood pressure 108 mm[Hg] Dr. Rg Menchaca MD Work Phone: 7(367)605-851953 [place] [address] 07-15-2024 08:35-0500 Body mass index (BMI) [Ratio] 24.3 kg/m2 Dr. Rg Menchaca MD Work Phone: 3(264)493-467353 [place] [address] 07-15-2024 08:35-0500 Body weight 62.[address] Rg Menchaca MD Work Phone: 5(154)427-061753 [place] [address] 07-15-2024 08:35-0500 Respiratory rate 16 /min Dr. Rg Menchaca MD Work Phone: 7(200)182-586953 [place] [address] 07-15-2024 08:35-0500 SaO2% (BldA) [Mass fraction] 95 % Dr. Rg Menchaca MD Work Phone: 8(192)542-836353 [place] [address] 07-14-2024 08:22-0500 Body mass index (BMI) [Ratio] 24.3 kg/m2 Dr. Rg Menchaca MD Work Phone: 9(885)273-906253 [place] [address] 07-14-2024 08:22-0500 Body temperature 97.1 [degF] Dr. gR Menchaca MD Work Phone: 4(338)533-561853 [place] [address] 07-14-2024 08:22-0500 Body weight 62.[address] Rg Menchaca MD Work Phone: 2(587)669-263953 [place] [address] 07-14-2024 08:22-0500 Diastolic blood pressure 70 mm[Hg] Dr. Rg Menchaca MD Work Phone: 0(153)963-123153 [place] [address] 07-14-2024 08:22-0500 Heart rate 83 /min Dr. Rg Menchaca MD Work Phone: [facility] 07-14-2024 08:22-0500 Respiratory rate 16 /min Dr. Rg Menchaca MD Work Phone: 5(420)441-635153 [place] [address] 07-14-2024 08:22-0500 SaO2% (BldA) [Mass fraction] 95 % Dr. Rg Menchaca MD Work Phone: 9(219)700-823453 [place] [address] 07-14-2024 08:22-0500 Systolic blood pressure 102 mm[Hg] Dr. Rg Menchaca MD Work Phone: 9(819)796-732053 [place] [address] 06-18-2024 08:30-0500 Body temperature 96.9 [degF] Dr. Rg Menchaca MD Work Phone: 6(876)741-275853 [place] [address] 06-18-2024 08:30-0500 Diastolic blood pressure 61 mm[Hg] Dr. Rg Menchaca MD Work Phone: 2(010)014-771153 [place] [address] 06-18-2024 08:30-0500 Heart rate 71 /min Dr. Rg Menchaca MD Work Phone: 2(910)982-481153 [place] [address] 06-18-2024 08:30-0500 Respiratory rate 16 /min Dr. Rg Menchaca MD Work Phone: 8(719)459-037053 [place] [address] 06-18-2024 08:30-0500 SaO2% (BldA) [Mass fraction] 95 % Dr. Rg Menchaca MD Work Phone: 3(296)348-946153 [place] [address] 06-18-2024 08:30-0500 Systolic blood pressure 114 mm[Hg] Dr. Rg Menchaca MD Work Phone: 3(912)530-718553 [place] [address] 06-17-2024 08:43-0500 Body mass index (BMI) [Ratio] 24.3 kg/m2 Dr. Rg Menchaca MD Work Phone: 0(740)108-840353 [place] [address] 06-17-2024 08:43-0500 Body temperature 96.7 [degF] Dr. Rg Menchaca MD Work Phone: 8(968)525-954853 [place] [address] 06-17-2024 08:43-0500 Body weight 62.[address] Rg Menchaca MD Work Phone: 6(798)544-486501 [place] [address] 06-17-2024 08:43-0500 Diastolic blood pressure 62 mm[Hg] Dr. Rg Menchaca MD Work Phone: 6(175)418-648553 [place] [address] 06-17-2024 08:43-0500 Heart rate 78 /min Dr. Rg Menchaca MD Work Phone: 8(059)857-810153 [place] [address] 06-17-2024 08:43-0500 Respiratory rate 16 /min Dr. Rg Menchaca MD Work Phone: 2(380)551-656553 [place] [address] 06-17-2024 08:43-0500 SaO2% (BldA) [Mass fraction] 92 % Dr. Rg Mnechaca MD Work Phone: 0(394)088-875253 [place] [address] 06-17-2024 08:43-0500 Systolic blood pressure 108 mm[Hg] Dr. Rg Menchaca MD Work Phone: 5(559)263-804653 [place] [address] 06-16-2024 08:20-0500 Body mass index (BMI) [Ratio] 23.4 kg/m2 Dr. Rg Menchaca MD Work Phone: 3(621)380-300253 [place] [address] 06-16-2024 08:20-0500 Body temperature 97.5 [degF] Dr. Rg Menchaca MD Work Phone: 5(556)782-925753 [place] [address] 06-16-2024 08:20-0500 Body weight [address] Rg Menchaca MD Work Phone: 6(223)102-976253 [place] [address] 06-16-2024 08:20-0500 Diastolic blood pressure 68 mm[Hg] Dr. Rg Menchaca MD Work Phone: 1(627)099-959953 [place] [address] 06-16-2024 08:20-0500 Heart rate 82 /min Dr. Rg Menchaca MD Work Phone: 2(308)804-746553 [place] [address] 06-16-2024 08:20-0500 Respiratory rate 16 /min Dr. Rg Menchaca MD Work Phone: 8(575)360-084353 [place] [address] 06-16-2024 08:20-0500 SaO2% (BldA) [Mass fraction] 95 % Dr. Rg Menchaca MD Work Phone: [facility] 06-16-2024 08:20-0500 Systolic blood pressure 110 mm[Hg] Dr. Rg Menchaca MD Work Phone: 6(095)539-503748 [address] 05-22-2024 09:00-0500 Body temperature 97.2 [degF] Dr. Rg Menchaca MD Work Phone: 5(094)529-327048 [address] 05-22-2024 09:00-0500 Diastolic blood pressure 84 mm[Hg] Dr. Rg Menchaca MD Work Phone: 3(825)627-376001 [place] [address] 05-22-2024 09:00-0500 Heart rate 65 /min Dr. Rg Menchaca MD Work Phone: 8(888)243-682353 [place] [address] 05-22-2024 09:00-0500 Respiratory rate 16 /min Dr. Rg Menchaca MD Work Phone: 7(428)360-232753 [place] [address] 05-22-2024 09:00-0500 SaO2% (BldA) [Mass fraction] 96 % Dr. Rg Menchaca MD Work Phone: 1(839)656-830801 [place] [address] 05-22-2024 09:00-0500 Systolic blood pressure 112 mm[Hg] Dr. Rg Menchaca MD Work Phone: 4(837)760-228853 [place] [address] 05-21-2024 08:39-0500 Body temperature 96.9 [degF] Dr. Rg Menchaca MD Work Phone: 3(091)562-883848 [address] 05-21-2024 08:39-0500 Diastolic blood pressure 60 mm[Hg] Dr. Rg Menchaca MD Work Phone: 3(217)411-276201 [place] [address] 05-21-2024 08:39-0500 Heart rate 74 /min Dr. Rg Menchaca MD Work Phone: 6(312)912-240548 [address] 05-21-2024 08:39-0500 Respiratory rate 16 /min Dr. Rg Menchaca MD Work Phone: 7(524)947-444001 [place] [address] 05-21-2024 08:39-0500 SaO2% (BldA) [Mass fraction] 96 % Dr. Rg Menchaca MD Work Phone: 6(482)196-695853 [place] [address] 05-21-2024 08:39-0500 Systolic blood pressure 105 mm[Hg] Dr. Rg Menchaca MD Work Phone: 9(037)253-237953 [place] [address] 05-19-2024 08:26-0500 Body mass index (BMI) [Ratio] 25 kg/m2 Dr. Rg Menchaca MD Work Phone: 9(609)636-651153 [place] [address] 05-19-2024 08:26-0500 Body temperature 98.6 [degF] Dr. Rg Menchaca MD Work Phone: 9(080)333-092553 [place] [address] 05-19-2024 08:26-0500 Body weight 63.[address] Rg Menchaca MD Work Phone: 3(054)782-309053 [place] [address] 05-19-2024 08:26-0500 Diastolic blood pressure 79 mm[Hg] Dr. Rg Menchaca MD Work Phone: 2(831)997-886453 [place] [address] 05-19-2024 08:26-0500 Heart rate 88 /min Dr. Rg Menchaca MD Work Phone: 2(055)252-519053 [place] [address] 05-19-2024 08:26-0500 Respiratory rate 16 /min Dr. Rg Menchaca MD Work Phone: 4(519)868-537353 [place] [address] 05-19-2024 08:26-0500 SaO2% (BldA) [Mass fraction] 96 % Dr. Rg Menchaca MD Work Phone: 2(251)751-451753 [place] [address] 05-19-2024 08:26-0500 Systolic blood pressure 114 mm[Hg] Dr. Rg Menchaca MD Work Phone: 5(913)901-519453 [place] [address] 04-23-2024 08:22-0500 Body mass index (BMI) [Ratio] 24.5 kg/m2 Dr. Rg Menchaca MD Work Phone: 9(208)717-383553 [place] [address] 04-23-2024 08:22-0500 Body temperature 97 [degF] Dr. Rg Menchaca MD Work Phone: 1(221)280-452053 [place] [address] 04-23-2024 08:22-0500 Body weight 62.[address] Rg Menchaca MD Work Phone: 7(460)120-831953 [place] [address] 04-23-2024 08:22-0500 Diastolic blood pressure 71 mm[Hg] Dr. Rg Menchaca MD Work Phone: 6(518)253-650048 [address] 04-23-2024 08:22-0500 Heart rate 76 /min Dr. Rg Menchaca MD Work Phone: 1(553)250-504653 [place] [address] 04-23-2024 08:22-0500 Respiratory rate 16 /min Dr. Rg Menchaca MD Work Phone: 2(034)291-214253 [place] [address] 04-23-2024 08:22-0500 SaO2% (BldA) [Mass fraction] 95 % Dr. Rg Menchaca MD Work Phone: 2(116)825-645953 [place] [address] 04-23-2024 08:22-0500 Systolic blood pressure 117 mm[Hg] Dr. Rg Menchaca MD Work Phone: 4(515)706-933153 [place] [address] 04-22-2024 08:27-0500 Body mass index (BMI) [Ratio] 24.5 kg/m2 Dr. Rg Menchaca MD Work Phone: 6(753)238-776453 [place] [address] 04-22-2024 08:27-0500 Body temperature 97.2 [degF] Dr. Rg Menchaca MD Work Phone: 2(604)158-907453 [place] [address] 04-22-2024 08:27-0500 Body weight 62.[address] Rg Menchaca MD Work Phone: 8(120)481-318953 [place] [address] 04-22-2024 08:27-0500 Diastolic blood pressure 68 mm[Hg] Dr. Rg Menchaca MD Work Phone: 7(695)414-141253 [place] [address] 04-22-2024 08:27-0500 Heart rate 72 /min Dr. Rg Menchaca MD Work Phone: 8(313)874-642853 [place] [address] 04-22-2024 08:27-0500 Respiratory rate 16 /min Dr. Rg Menchaca MD Work Phone: 1(154)251-401348 [address] 04-22-2024 08:27-0500 SaO2% (BldA) [Mass fraction] 97 % Dr. Rg Menchaca MD Work Phone: 6(170)029-095048 [address] 04-22-2024 08:27-0500 Systolic blood pressure 115 mm[Hg] Dr. Rg Menchaca MD Work Phone: [facility] 04-21-2024 08:25-0500 Body mass index (BMI) [Ratio] 24.4 kg/m2 Dr. Rg Menchaca MD Work Phone: [facility] 04-21-2024 08:25-0500 Body temperature 96.5 [degF] Dr. Rg Menchaca MD Work Phone: [facility] 04-21-2024 08:25-0500 Body weight 62.[address] Rg Menchaca MD Work Phone: [facility] 04-21-2024 08:25-0500 Diastolic blood pressure 57 mm[Hg] Dr. Rg Menchaca MD Work Phone: [facility] 04-21-2024 08:25-0500 Heart rate 77 /min Dr. Rg Menchaca MD Work Phone: [facility] 04-21-2024 08:25-0500 Respiratory rate 16 /min Dr. Rg Menchaca MD Work Phone: [facility] 04-21-2024 08:25-0500 SaO2% (BldA) [Mass fraction] 94 % Dr. Rg Menchaca MD Work Phone: [facility] 04-21-2024 08:25-0500 Systolic blood pressure 104 mm[Hg] Dr. Rg Menchaca MD Work Phone: [facility] 02-05-2024 11:19-0400 Diastolic blood pressure 68 mm[Hg] Windy Yuen MD Work Phone: [facility] 02-05-2024 11:19-0400 Heart rate 81 /min Windy Yuen MD Work Phone: [facility] 02-05-2024 11:19-0400 SaO2% (BldA) [Mass fraction] 94 % Windy Yuen MD Work Phone: [facility] 02-05-2024 11:19-0400 Systolic blood pressure 116 mm[Hg] Windy Yuen MD Work Phone: [facility] 09-13-2023 08:36-0400 Body height 160.02 cm [facility] 09-13-2023 08:36-0400 Body temperature 98.1 [degF] [facility] 09-13-2023 08:36-0400 Diastolic blood pressure 68 mm[Hg] [facility] 09-13-2023 08:36-0400 Heart rate 77 /min [facility] 09-13-2023 08:36-0400 Respiratory rate 16 /min [facility] 09-13-2023 08:36-0400 SaO2% (BldA) [Mass fraction] 94 % [facility] 09-13-2023 08:36-0400 Systolic blood pressure 115 mm[Hg] [facility] 09-12-2023 09:03-0400 Body height 160.02 cm [facility] 09-12-2023 09:03-0400 Body mass index (BMI) [Ratio] 23.4 kg/m2 [facility] 09-12-2023 09:03-0400 Body temperature 98.5 [degF] [facility] 09-12-2023 09:03-0400 Body weight 60 kg [facility] 09-12-2023 09:03-0400 Diastolic blood pressure 75 mm[Hg] [facility] 09-12-2023 09:03-0400 Heart rate 70 /min [facility] 09-12-2023 09:03-0400 Respiratory rate 16 /min [facility] 09-12-2023 09:03-0400 SaO2% (BldA) [Mass fraction] 95 % [facility] 09-12-2023 09:03-0400 Systolic blood pressure 130 mm[Hg] [facility] 09-11-2023 08:32-0400 Body height 160.02 cm [facility] 09-11-2023 08:32-0400 Body temperature 98.3 [degF] [facility] 09-11-2023 08:32-0400 Diastolic blood pressure 64 mm[Hg] [facility] 09-11-2023 08:32-0400 Heart rate 77 /min [facility] 09-11-2023 08:32-0400 Respiratory rate 16 /min [facility] 09-11-2023 08:32-0400 SaO2% (BldA) [Mass fraction] 95 % [facility] 09-11-2023 08:32-0400 Systolic blood pressure 109 mm[Hg] [facility] 09-10-2023 08:39-0400 Body height 160.02 cm [facility] 09-10-2023 08:39-0400 Body mass index (BMI) [Ratio] 23.7 kg/m2 [facility] 09-10-2023 08:39-0400 Body temperature 98 [degF] [facility] 09-10-2023 08:39-0400 Body weight 60.78 kg [facility] 09-10-2023 08:39-0400 Diastolic blood pressure 67 mm[Hg] [facility] 09-10-2023 08:39-0400 Heart rate 80 /min [facility] 09-10-2023 08:39-0400 Respiratory rate 16 /min [facility] 09-10-2023 08:39-0400 SaO2% (BldA) [Mass fraction] 96 % [facility] 09-10-2023 08:39-0400 Systolic blood pressure 115 mm[Hg] [facility] 09-09-2023 13:39-0400 Body temperature 97.1 [degF] [facility] 09-09-2023 13:39-0400 Diastolic blood pressure 65 mm[Hg] [facility] 09-09-2023 13:39-0400 Heart rate 72 /min [facility] 09-09-2023 13:39-0400 Respiratory rate 16 /min [facility] 09-09-2023 13:39-0400 SaO2% (BldA) [Mass fraction] 97 % [facility] 09-09-2023 13:39-0400 Systolic blood pressure 110 mm[Hg] [facility] 09-09-2023 08:39-0400 Body height 160.02 cm [facility] 07-31-2023 16:35-0400 Body height 160.7 cm Windy Yuen MD Work Phone: [facility] 07-31-2023 16:35-0400 Body weight 59.88 kg Windy Yuen MD Work Phone: [facility] 07-31-2023 16:35-0400 Diastolic blood pressure 50 mm[Hg] Windy Yuen MD Work Phone: [facility] 07-31-2023 16:35-0400 Heart rate 72 /min Windy Yuen MD Work Phone: [facility] 07-31-2023 16:35-0400 SaO2% (BldA) [Mass fraction] 96 % Windy Yuen MD Work Phone: [facility] 07-31-2023 16:35-0400 Systolic blood pressure 91 mm[Hg] Windy Yuen MD Work Phone: [facility] 04-29-2022 04:53-0500 Diastolic blood pressure 82 mm[Hg] [facility] Work Phone: 04-29-2022 04:53-0500 Heart rate 70 /min [facility] Work Phone: 04-29-2022 04:53-0500 Respiratory rate 16 /min [facility] Work Phone: 04-29-2022 04:53-0500 SaO2% (BldA) [Mass fraction] 98 % [facility] Work Phone: 04-29-2022 04:53-0500 Systolic blood pressure 124 mm[Hg] [facility] Work Phone: 04-28-2022 21:57-0500 Body height 160.02 cm [facility] Work Phone: 04-28-2022 21:57-0500 Body mass index (BMI) [Ratio] 24.1 kg/m2 [facility] Work Phone: 04-28-2022 21:57-0500 Body temperature 96.2 [degF] [facility] Work Phone: 04-28-2022 21:57-0500 Body weight 61.87 kg [facility] Work Phone: 03-01-2022 13:29-0400 Diastolic blood pressure 63 mm[Hg] [facility] Work Phone: 03-01-2022 13:29-0400 Heart rate 77 /min [facility] Work Phone: 03-01-2022 13:29-0400 Respiratory rate 18 /min [facility] Work Phone: 03-01-2022 13:29-0400 SaO2% (BldA) [Mass fraction] 93 % [facility] Work Phone: 03-01-2022 13:29-0400 Systolic blood pressure 102 mm[Hg] [facility] Work Phone: 03-01-2022 10:29-0400 Body temperature 97.2 [degF] [facility] Work Phone: 03-01-2022 10:25-0400 Body mass index (BMI) [Ratio] 21.9 kg/m2 [facility] Work Phone: 03-01-2022 10:25-0400 Body weight 56.1 kg [facility] Work Phone: 11-15-2021 11:23-0400 Body weight 55.79 kg La Nena Lala MD Work Phone: [facility] 11-15-2021 11:23-0400 Diastolic blood pressure 67 mm[Hg] La Nena Lala MD Work Phone: [facility] 11-15-2021 11:23-0400 Heart rate 85 /min La Nena Lala MD Work Phone: [facility] 11-15-2021 11:23-0400 Respiratory rate 16 /min La Nena Lala MD Work Phone: [facility] 11-15-2021 11:23-0400 SaO2% (BldA) [Mass fraction] 99 % La Nena Lala MD Work Phone: [facility] 11-15-2021 11:23-0400 Systolic blood pressure 105 mm[Hg] La Nena Lala MD Work Phone: [facility] 08-30-2021 20:07-0400 Diastolic blood pressure 74 mm[Hg] Dr. Rg Menchaca Work Phone: [facility] Work Phone: 08-30-2021 20:07-0400 Heart rate 69 /min Dr. Rg Menchaca Work Phone: [facility] Work Phone: 08-30-2021 20:07-0400 Respiratory rate 18 /min Dr. Rg Menchaca Work Phone: [facility] Work Phone: 08-30-2021 20:07-0400 SaO2% (BldA) [Mass fraction] 96 % Dr. Rg Menchaca Work Phone: [facility] Work Phone: 08-30-2021 20:07-0400 Systolic blood pressure 94 mm[Hg] Dr. Rg Menchaca Work Phone: [facility] Work Phone: 08-30-2021 18:05-0400 Body height 154.[address] Rg Menchaca Work Phone: [facility] Work Phone: 08-30-2021 18:05-0400 Body mass index (BMI) [Ratio] 25.9 kg/m2 Dr. Rg Menchaca Work Phone: [facility] Work Phone: 08-30-2021 18:05-0400 Body temperature 96.8 [degF] Dr. Rg Menchaca Work Phone: [facility] Work Phone: 08-30-2021 18:05-0400 Body weight 62.[address] Rg Menchaca Work Phone: [facility] Work Phone: 08-19-2021 14:30-0400 Body temperature 98.9 [degF] Dr. Rg Menchaca Work Phone: [facility] Work Phone: 08-19-2021 14:30-0400 Diastolic blood pressure 68 mm[Hg] Dr. Rg Menchaca Work Phone: [facility] Work Phone: 08-19-2021 14:30-0400 Heart rate 88 /min Dr. Rg Menchaca Work Phone: [facility] Work Phone: 08-19-2021 14:30-0400 Respiratory rate 18 /min Dr. Rg Menchaca Work Phone: [facility] Work Phone: 08-19-2021 14:30-0400 SaO2% (BldA) [Mass fraction] 96 % Dr. Rg Menchaca Work Phone: [facility] Work Phone: 08-19-2021 14:30-0400 Systolic blood pressure 104 mm[Hg] Dr. Rg Menchaca Work Phone: [facility] Work Phone: 08-19-2021 12:54-0400 Body height 154.[address] Rg Menchaca Work Phone: [facility] Work Phone: 08-19-2021 12:54-0400 Body weight 53.[address] Rg Menchaca Work Phone: [facility] Work Phone: 08-18-2021 21:27-0400 Body mass index (BMI) [Ratio] 22.2 kg/m2 Dr. Rg Menchaca Work Phone: [facility] Work Phone: 08-18-2021 20:57-0400 Body temperature 98 [degF] [facility] Work Phone: 08-18-2021 20:57-0400 Diastolic blood pressure 62 mm[Hg] [facility] Work Phone: 08-18-2021 20:57-0400 Heart rate 74 /min [facility] Work Phone: 08-18-2021 20:57-0400 Respiratory rate 16 /min [facility] Work Phone: 08-18-2021 20:57-0400 SaO2% (BldA) [Mass fraction] 98 % [facility] Work Phone: 08-18-2021 20:57-0400 Systolic blood pressure 106 mm[Hg] [facility] Work Phone: 08-18-2021 17:31-0400 Body height 159.99 cm [facility] Work Phone: 08-18-2021 17:31-0400 Body mass index (BMI) [Ratio] 21.4 kg/m2 [facility] Work Phone: 08-18-2021 17:31-0400 Body weight 54.9 kg [facility] Work Phone: Encounters Encounter Date Encounter [...] Start: 11-11-2024 End: 11-11-2024 ambulatory WINDY YUEN Facility:[facility] Start: 11-11-2024 End: 11-11-2024 Patient encounter procedure Windy Yuen MD Work Phone: Neurology Comment on above: Stiff person syndrom e Start: 11-05-2024 End: 11-05-[address] Windy Yuen MD -Medical Out Work Phone: Start: 11-05-2024 End: 11-05-[address] Rg Menchaca MD Work Phone: [facility] Work Phone: Start: 11-04-2024 End: 11-04-[address] Windy Yuen MD -Medical Out Work Phone: Start: 11-04-2024 End: 11-04-[address] Rg Menchaca MD Work Phone: [facility] Work Phone: Start: 11-03-2024 End: 11-03-[address] Windy Yuen MD -Medical Out Work Phone: Start: 11-03-2024 End: 11-03-[address] Rg Menchaca MD Work Phone: [facility] Work Phone: Start: 10-08-2024 End: 10-08-[address] Windy Yuen MD -Medical Out Work Phone: Start: 10-08-2024 End: 10-08-2024 ambulatory Windy Yuen Facility:[facility] Start: 10-07-2024 End: 10-07-[address] Windy Yuen MD -Medical Out Work Phone: Start: 10-07-2024 End: 10-07-[address] Rg Menchaca MD Work Phone: [facility] Work Phone: Start: 10-06-2024 End: 10-06-[address] Windy Yuen MD -Medical Out Work Phone: Start: 10-06-2024 End: 10-06-[address] Rg Menchaca MD Work Phone: [facility] Work Phone: Start: 09-10-2024 End: 09-10-[address] Windy Yuen MD -Medical Out Work Phone: Start: 09-10-2024 End: 09-10-[address] Rg Menchaca MD Work Phone: [facility] Work Phone: Start: 09-09-2024 End: 09-09-[address] Windy Yuen MD -Medical Out Work Phone: Start: 09-09-2024 End: 09-09-[address] Rg Menchaca MD Work Phone: [facility] Work Phone: Start: 09-08-2024 End: 09-08-[address] Windy Yuen MD -Medical Out Work Phone: Start: 09-08-2024 End: 09-08-2024 ambulatory Windy Yuen Facility:[facility] Start: 08-13-2024 End: 08-13-[address] Windy Yuen MD -Medical Out Work Phone: Start: 08-13-2024 End: 08-13-[address] Rg Menchaca MD Work Phone: [facility] Work Phone: Start: 08-12-2024 End: 08-12-[address] Windy Yuen MD -[facility] Out Work Phone: Start: 08-12-2024 End: 08-12-[address] Rg Menchaca MD Work Phone: [facility] Work Phone: Start: 08-11-2024 End: 08-11-[address] Windy Yuen MD -Medical Out Work Phone: Start: 08-11-2024 End: 08-11-[address] Rg Menchaca MD Work Phone: [facility] Work Phone: Start: 07-16-2024 End: 07-16-[address] Windy Yuen MD -Medical Out Work Phone: Start: 07-16-2024 End: 07-16-2024 ambulatory [facility] Start: 07-15-2024 End: 07-15-[address] Windy Yuen MD -Medical Out Work Phone: Start: 07-15-2024 End: 07-15-2024 ambulatory [facility] Start: 07-14-2024 End: 07-14-[address] Windy Yuen MD -Medical Out Work Phone: Start: 07-14-2024 End: 07-14-2024 ambulatory [facility] Start: 06-18-2024 End: 06-18-[address] Windy Yuen MD -Medical Out Work Phone: Start: 06-18-2024 End: 06-18-2024 ambulatory [facility] Start: 06-17-2024 End: 06-17-[address] Windy Yuen MD -Medical Out Work Phone: Start: 06-17-2024 End: 06-17-2024 ambulatory [facility] Facility:[facility] Start: 06-16-2024 End: 06-16-[address] Windy Yuen MD -Medical Out Work Phone: Start: 06-16-2024 End: 06-16-2024 [facility] Start: 05-22-2024 End: 05-22-[address] Windy Yuen MD -Medical Out Work Phone: Start: 05-22-2024 End: 05-22-2024 ambulatory [facility] Facility:[facility] Start: 05-21-2024 End: 05-21-[address] Windy Yuen MD -Medical Out Work Phone: Start: 05-21-2024 End: 05-21-2024 [facility] Start: 05-19-2024 End: 05-19-[address] Windy Yeun MD -Medical Out Work Phone: Start: 05-19-2024 End: 05-19-2024 [facility] Start: 04-23-2024 End: 04-23-[address] Windy Yuen MD -Medical Out Work Phone: Start: 04-23-2024 End: 04-23-2024 ambulatory [facility] Facility:[facility] Start: 04-22-2024 End: 04-22-[address] Windy Yuen MD -Medical Out Work Phone: Start: 04-22-2024 End: 04-22-2024 ambulatory [facility] Facility:[facility] Start: 04-21-2024 End: 04-21-[address] Windy Yuen MD -Medical Out Work Phone: Start: 04-21-2024 End: 04-21-2024 ambulatory Windy Spolter Facility:[facility] Start: 03-26-2024 End: 03-26-2024 ambulatory Windy Spolter Facility:[facility] Start: 03-25-2024 End: 03-25-2024 ambulatory Windy Spolter Facility:[facility] Start: 03-24-2024 End: 03-24-2024 ambulatory Windy Spolter Facility:[facility] Start: 02-27-2024 End: 02-27-2024 ambulatory Windy Spolter Facility:[facility] Start: 02-26-2024 End: 02-26-2024 ambulatory Windy Spolter Facility:[facility] Start: 02-25-2024 End: 02-25-2024 ambulatory Windy Spolter Facility:[facility] Start: 02-06-2024 End: 02-06-2024 Telephone encounter Windy Yuen MD Work Phone: Neurology Comment on above: Orders (IVIG) Start: 02-05-2024 End: 02-05-2024 ambulatory WINDY S SPOLTER Facility:[facility] Start: 02-05-2024 End: 02-05-2024 Patient encounter procedure Windy Yuen MD Work Phone: Neurology Comment on above: Stiff person syndrom e Start: 01-31-2024 End: 01-31-2024 ambulatory Windy Spolter Facility:[facility] Start: 01-30-2024 End: 01-30-2024 ambulatory Windy Spolter Facility:[facility] Start: 01-29-2024 End: 01-29-2024 ambulatory Windy Spolter Facility:[facility] Start: 01-28-2024 End: 01-28-2024 ambulatory Windy Spolter Facility:[facility] Start: 01-27-2024 End: 01-27-2024 ambulatory Windy Spolter Facility:[facility] Start: 01-03-2024 End: 01-03-2024 ambulatory Windy Spolter Facility:[facility] Start: 01-02-2024 End: 01-02-2024 ambulatory Windy Spolter Facility:[facility] Start: 01-01-2024 End: 01-01-2024 ambulatory Windy Spolter Facility:[facility] Start: 12-31-2023 End: 12-31-2023 ambulatory Windy Spolter Facility:[facility] Start: 12-30-2023 End: 12-30-2023 ambulatory Windy Spolter Facility:[facility] Start: 12-06-2023 End: 12-06-2023 ambulatory Windy Spolter Facility:[facility] Start: 12-05-2023 End: 12-05-2023 ambulatory Windy Spolter Facility:[facility] Start: 12-04-2023 End: 12-04-2023 ambulatory Wnidy Spolter Facility:[facility] Start: 12-03-2023 End: 12-03-2023 ambulatory Windy Spolter Facility:[facility] Start: 12-02-2023 End: 12-02-2023 ambulatory Windy Spolter Facility:[facility] Start: 11-24-2023 Telephone encounter Windy Yuen MD Work Phone: Neurology Comment on above: Appointment (Update faxed to [facility] for appointment 02/05/24) Start: 11-14-2023 Telephone encounter Windy Yuen MD Work Phone: Neurology Start: 10-29-2023 Telephone encounter Windy Yuen MD Work Phone: Neurology Comment on above: Appointment (Appoint ment Update Faxed to [facility] for 12/17/23) Start: 10-15-2023 Telephone encounter Windy Yuen MD Work Phone: Neurology Comment on above: Patient Update Start: 09-25-2023 Telephone encounter Windy Yuen MD Work Phone: Neurology Comment on above: Appointment Start: 09-18-2023 Telephone encounter Windy Yuen MD Work Phone: Neurology Comment on above: Medication Question Start: 09-13-2023 End: 09-13-2023 ambulatory [facility] Work Phone: Start: 09-13-2023 End: 09-13-2023 Patient encounter procedure [facility] Work Phone: Start: 09-12-2023 End: 09-12-2023 ambulatory [facility] Work Phone: Start: 09-12-2023 End: 09-12-2023 Patient encounter procedure [facility] Work Phone: Start: 09-11-2023 End: 09-11-2023 ambulatory [facility] Work Phone: Start: 09-11-2023 End: 09-11-2023 Patient encounter procedure [facility] Work Phone: Start: 09-10-2023 End: 09-10-2023 ambulatory [facility] Work Phone: Start: 09-10-2023 End: 09-10-2023 Patient encounter procedure [facility] Work Phone: Start: 09-09-2023 End: 09-09-2023 ambulatory [facility] Work Phone: Start: 09-09-2023 End: 09-09-2023 Patient encounter procedure [facility] Work Phone: Start: 08-13-2023 Telephone encounter Windy Yuen MD Work Phone: [facility] [place] Start: 07-31-2023 End: 07-31-2023 Patient encounter [...] patient La Nena Lala MD Work Phone: [facility] Start: 05-31-2022 Telephone encounter La Nena Keen i, MD Work Phone: Endocrinology Comment on above: Appointment (Resched ule ) Start: 04-28-2022 End: 04-29-2022 [facility] Start: 04-18-2022 ambulatory UNKNOWN PROVIDER Facili ty:[facility] Start: 04-18-2022 End: 04-18-2022 Patient encounter procedure Maryan Loving DPM Work Phone: Podiatry Comment on above: Cavovarus deformity of foot, acquired, right (Primary Dx); Other osteoporosis without current pathological fracture; Hammertoe, bilateral Start: 04-18-2022 End: 04-18-2022 Subsequent hospital visit by physician [employer] [facility] Work Phone: Radiology Comment on above: Pain [R52] Start: 03-08-2022 ambulatory Facility:[facility] Start: 03-01-2022 End: 03-01-2022 [facility] Start: 11-15-2021 End: 11-16-2021 ambulatory UNKNOWN PROVIDER Facility:[facility] Start: 11-15-2021 End: 11-15-2021 Patient encounter procedure La Nena Lala MD Work Phone: Endocrinology Comment on above: Acquired hypothyroid ism (Primary Dx); Poorly controlled type 1 diabetes mellitus (HCC) Start: 08-30-2021 End: 08-30-2021 Emergency department patient visit Dr. Rg Menchaca [facility] Start: 08-19-2021 Non-patient / Non-visit Dr. Eron Menchaca Work Phone: [facility] [facility] Start: 08-18-2021 End: 08-19-2021 Evaluation and management of inpatient [facility] Procedures Date Procedure Procedure Detail [...] Neurology [address] [place] [address] Windy Yuen MD [address] [place] [address] Neurology Start: 01-18-2025 Influenza vaccination Influenz a Vaccine (Season Ended) [facility] Start: 11-04-2024 Iv infusion therapy prophylaxis/dx ea hour THER/PROPH/DIAG IV INF [facility] Start: 11-04-2024 Iv infusion therapy/prophylaxis /dx 1st to 1 hr THER/PROPH/DIAG IV INF [facility] Start: 11-04-2024 Therapeutic injectio n iv push each new drug TX/PRO/DX INJ NEW DRUG [facility] Start: 10-07-2024 Iv infusion therapy prophylaxis/dx ea hour THER/PROPH/DIAG IV INF [facility] Start: 10-07-2024 Iv infusion therapy/prophylaxis /dx 1st to 1 hr THER/PROPH/DIAG IV INF [facility] Start: 10-07-2024 Therapeutic injectio n iv push each new drug TX/PRO/DX INJ NEW DRUG [facility] Start: 09-10-2024 Iv infusion therapy prophylaxis/dx ea hour THER/PROPH/DIAG IV INF [facility] Start: 09-10-2024 Iv infusion therapy/prophylaxis /dx 1st to 1 hr THER/PROPH/DIAG IV INF [facility] Start: 09-10-2024 Therapeutic injectio n iv push each new drug TX/PRO/DX INJ NEW DRUG [facility] Start: 08-11-2024 Iv infusion therapy prophylaxis/dx ea hour THER/PROPH/DIAG IV INF [facility] Start: 08-11-2024 Iv infusion therapy/prophylaxis /dx 1st to 1 hr THER/PROPH/DIAG IV INF [facility] Start: 08-11-2024 Therapeutic injectio n iv push each new drug TX/PRO/DX INJ NEW DRUG [facility] Start: 08-11-2024 End: 08-11-2024 Patient encounter procedure 08/11/2024 12:00 PM EDT Office Visit Neurology [address] [place] [address] Windy Yuen MD [address] [place] [address] 6 mo Neurology Comment on above: 6 mo Start: 07-16-2024 Iv infusion therapy prophylaxis/dx ea hour THER/PROPH/DIAG IV INF [facility] Start: 07-16-2024 Iv infusion therapy/prophylaxis /dx 1st to 1 hr THER/PROPH/DIAG IV INF [facility] Start: 07-16-2024 Therapeutic injectio n iv push each new drug TX/PRO/DX INJ NEW DRUG [facility] Start: 05-20-2024 Advance Directive Discussion Advance Directive Discussion [facility] Start: 05-20-2024 Medicare Advantage Annual Wellness Visit Medicare Advantage Annual Wellness Visit [facility] Start: 02-05-2024 End: 02-05-2024 Patient encounter procedure 02/05/2024 11:30 AM EDT Office Visit Neurology [address] [facility] [address] [place] [address] Windy Yuen MD [address] [place] [address] 3 mo follow up Neurology Comment on above: 3 mo follow up Start: 01-19-2024 Covid-19 Vaccine ( season) Covid-19 Vaccine () [facility] Start: 01-19-2024 Covid-19 Vaccine ( season) Covid-19 Vaccine ( season) [facility] Start: 01-19-2024 Influenza vaccination [facility] Start: 12-17-2023 End: 12-17-2023 Patient encounter procedure 12/17/2023 12:00 PM EDT Office Visit Neurology [address] [place] [address] Windy Yuen MD [address] [place] [address] 3 mo follow up- 09/24 mychart message [...] Directive Discussion [facility] Start: 05-20-2023 Behavioral Health Screening Behavioral Health Screening [facility] Start: 05-20-2023 Depression Assessment Depression Ass essment [facility] Start: 01-18-2023 Covid-19 Vaccine ( season) Covid-19 Vaccine () [facility] Start: 01-18-2023 Influenza vaccination Influenza Vacc ine (#1) [facility] Start: 11-15-2022 3 comp foot exam completed DIABETIC FOOT EXAM [facility] Start: 11-15-2022 Diabetic foot examination Diabetic Foot Exam [facility] Start: 05-20-2022 ADVANCE DIRECTIVE DISCUSSION ADVANCE DIRECTIVE DISCUSSION [facility] Start: 05-20-2022 DEPRESSION ASSESSMENT DEPRESSION ASS ESSMENT [facility] Start: 02-15-2022 Hemoglobin A1c measurement HbA1C [facility] Start: 02-15-2022 Hemoglobin A1c/Hemoglobin.total in Blood HBA1C [facility] Start: 01-18-2022 Influenza [facility] Start: 11-15-2021 End: 01-15-2022 C peptide [Mass/volume] in Serum or Plasma [facility] Work Phone: Comment on above: Expected: 11/15/2021 , Expires: 01/15/2022 Start: 11-15-2021 End: 11-15-2022 Glutamate decarboxylase 65 Ab [Units/volume] in Serum [facility] Work Phone: Comment on above: Expected: 11/15/2021 , Expires: 11/15/2022 Start: 11-15-2021 End: 11-15-2022 INSULIN ANTIBODY BLD [facility] Work Phone: Comment on above: Expected: 11/15/2021 , Expires: 11/15/2022 Start: 11-15-2021 End: 01-15-2022 INSULINOMA ASSOCIATED ANTIBODY 2 [facility] Work Phone: Comment on above: Expected: 11/15/2021 , Expires: 01/15/2022 Start: 11-15-2021 End: 11-15-2022 Pancreatic islet cell Ab [Titer] in Serum [facility] Work Phone: Comment on above: Expected: 11/15/2021 , Expires: 11/15/2022 Start: 11-15-2021 End: 01-15-2022 Thyroxine (T4) free [Mass/volume] in Serum or Plasma [facility] Work Phone: Comment on above: Expected: 11/15/2021 , Expires: 01/15/2022 Start: 05-20-2021 ADVANCE DIRECTIVE DISCUSSION ADVANCE DIRECTIVE DISCUSSION [facility] Start: 05-20-2021 DEPRESSION ASSESSMENT DEPRESSION ASS ESSMENT [facility] Start: 04-17-2021 COVID-19 VACCINE (2 - Pfizer series) COVID-19 VACCINE (2 - Pfizer series) [facility] Start: 04-21-2019 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 ANNUAL PCP TEAM CHRONIC DISEASE VISIT [facility] Start: 03-08-2018 Hepatitis B surface antibody level LDL CHOLESTEROL [facility] Start: 2017 RSV Vaccine (1 - 1-d ose 75+ series) RSV Vaccine (1 - 1-dose 75+ series) [facility] Start: 05-21-2016 PNEUMOCOCCAL: 65+ (2 - PPSV23 if available, else PCV20) PNEUMOCOCCAL: 65+ (2 - PPSV23 if available, else PCV20) [facility] Start: 05-21-2016 PNEUMOCOCCAL: 65+ (2 - PPSV23 or PCV20) PNEUMOCOCCAL: 65+ (2 - PPSV23 or PCV20) [facility] Start: 07-16-2015 Pneumococcal Vaccine : 50+ (2 of 2 - PPSV23) Pneumococcal Vaccine: 50+ (2 of 2 - PPSV23) [facility] Start: 07-16-2015 Pneumococcal Vaccine : 65+ (2 - PPSV23 or PCV20) Pneumococcal Vaccine: 65+ (2 - PPSV23 or PCV20) [facility] Start: 07-16-2015 Pneumococcal Vaccine : 65+ (2 of 2 - PPSV23 or PCV20) Pneumococcal Vaccine: 65+ (2 of 2 - PPSV23 or PCV20) [facility] Start: 07-16-2015 PNEUMOCOCCAL: 65+ (2 - PPSV23 if available, else PCV20) PNEUMOCOCCAL: 65+ (2 - PPSV23 if available, else PCV20) [facility] Start: 2007 BONE DENSITY BONE DENSITY [facility] Start: 2007 Bone Density Screening Bone Density Screening [facility] Start: 2007 Screening for osteoporosis Bone Density Screening [facility] Start: 2002 Hepatitis B Vaccine (1 of 3 - Risk 3-dose series) Hepatitis B Vaccine (1 of 3 - Risk 3-dose series) [facility] Start: 2002 RSV Vaccine (1 - 1-d ose 60+ series) RSV Vaccine (1 - 1-dose 60+ series) [facility] Start: 1992 SHINGRIX VACCINE (1 of 2) SHINGRIX VACCINE (1 of 2) [facility] Start: 1961 Urine microalbumin profile [facility] Start: 1960 Depression Screening Depression Scre ening [facility] Start: 1954 Adult depression screening assessment DEPRESSION SCREENING [facility] Start: 1952 Glaucoma screening Dilated Retinal E xam [facility] Start: 1952 Hepatitis B screening URINE ALBUMIN:CREATININE RATIO [facility] Start: 1952 Hepatitis C antibody , confirmatory test DILATED RETINAL EXAM [facility] Patient Education [facility] Work Phone: Patient referral [facility] Work Phone: [facility] Immunizations Immunization Date Immunization Notes Care Provider Fa cili 08-24-2020 influenza, injectabl e, quadrivalent, preservative free [facility] 08-24-2020 influenza, seasonal, injectable Dr. Rg Menchaca Work Phone: [facility] Work Phone: 08-24-2020 influenza virus vaccine, unspecified formulation Luis Eduardo Clemons Jr., MD Work Phone: [facility] 04-07-2018 Influenza virus vaccine [facility] 03-14-2018 influenza, high dose seasonal, preservative-free La Nena Lala MD Work Phone: [facility] Work Phone: 2017 influenza, high dose seasonal, preservative-free La Nena Lala MD Work Phone: [facility] 05-21-2015 pneumococcal conjuga te vaccine, 13 valent La Nena Lala MD Work Phone: [facility] Payers Date Payer Category Payer Self-pay [id number] 2023 Unknown [id number] 2022 Medicare UHC MEDICARE UHC DUAL COMPLETE HMO POS SNP [id number] 2022-Present [phone] [address] [place] [address] Medicare [id number] 2022 Medicare (Managed Care) [facility] DUAL COMPLETE HMO POS SNP [id number] 2022 Unknown [id number] 2021 Medicaid [facility] MEDICAID MYC ARE [facility] MEDICAID [id number] 2021-Present [phone] [address] [place] [address] Medicaid [id number] 2021 Medicaid [id number] 2021 Unknown [id number] Medicare [id number] Unknown [id number] 2.840.1.797510.3.579.2. 462 Unknown [id number] 2.840.1.595598.3.579.2. 462 Unknown [id number] 2.840.1.907729.3.579.2. 462 Unknown [id number] 2.0.1.969960.3.579.2. 462 Unknown [id number] 2.16.840.1.669839.3.579.2. 462 Unknown [id number] 2.16.840.1.813913.3.579.2. 462 Unknown [id number] 2.16.840.1.779202.3.579.2. 462 Unknown [id number] 2.16.840.1.941131.3.579.2. 462 Unknown [id number] 2.16.840.1.938666.3.579.2. 462 Unknown [id number] 2.16.840.1.714440.3.579.2. 462 Unknown [id number] 2.16.840.1.574588.3.579.2. 462 Unknown [id number] 2.16.840.1.398655.3.579.2. 462 Unknown [id number] 2.16.840.1.737135.3.579.2. 462 Unknown [id number] 2.16.840.1.453267.3.579.2. 462 Unknown [id number] 2.16.840.1.188395.3.579.2. 462 Unknown [id number] 2.16.840.1.132069.3.579.2. 462 Unknown [id number] 2.16.840.1.576827.3.579.2. 462 Unknown [id number] 2.16.840.1.932054.3.579.2. 462 Unknown [id number] 2.16.840.1.238525.3.579.2. 462 Unknown [id number] 2.16.840.1.367851.3.579.2. 462 Unknown [id number] 2.16.840.1.260278.3.579.2. 462 Unknown [id number] 2.16.840.1.853590.3.579.2. 462 Unknown [id number] 2.16.840.1.653620.3.579.2. 462 Unknown [id number] 2.840.1.056147.3.579.2. 462 Unknown [id number] 2.840.1.302654.3.579.2. 462 Unknown [id number] 2.840.1.237579.3.579.2. 462 Unknown [id number] 2.840.1.455274.3.579.2. 462 Unknown [id number] 2.840.1.525912.3.579.2. 462 Unknown [id number] 2.840.1.702246.3.579.2. 462 Unknown [id number] 2.840.1.222881.3.579.2. 462 Unknown [id number] 2.840.1.819912.3.579.2. 462 Unknown [id number] 2.840.1.875039.3.579.2. 462 Unknown [id number] 2.840.1.494766.3.579.2. 462 Unknown [id number] 2.840.1.472421.3.579.2. 462 Unknown [id number] 2.840.1.764679.3.579.2. 462 Unknown [id number] .840.1.315014.3.579.2. 462 Unknown [id number] .840.1.388545.3.579.2. 462 Unknown [id number] .840.1.313317.3.579.2. 462 Unknown [id number] 2.840.1.699526.3.579.2. 462 Unknown [id number] 2.840.1.788909.3.579.2. 462 Unknown [id number] 2.840.1.935115.3.579.2. 462 Unknown [id number] 2.840.1.887307.3.579.2. 462 Unknown [id number] 2.16.840.1.969777.3.579.2. 462 Unknown [id number] 2.16.840.1.953880.3.579.2. 462 Unknown [id number] 2.16.840.1.655160.3.579.2. 462 Social History Date Type Detail Facility Start: 08-18-2021 End: 04-28-2022 Tobacco smoking status NEIS Unknown if ever smoked [facility] Start: 11-28-2018 None [facility] Start: 11-28-2018 Fdc [facility] Start: 11-28-2018 Non-smoker [facility] Start: 1940 Sex Assigned At Female [facility] Start: 01-07-2018 End: 04-28-2022 Tobacco smoking status NHIS Ex-smoker [facility] Start: 01-07-2018 End: 07-31-2023 Tobacco use and exposure Smokeless tobacco non-user [facility] Start: 1940 Sex Assigned At Not on file [facility] Start: 11-05-2021 End: 04-18-2022 Exposure to SARS-CoV-2 (event) Not sure [facility] History of tobacco use Current smoker [facility] Start: 04-18-2022 End: 02-05-2024 Alcohol intake Ex-drinker (finding) [facility] Start: 04-18-2022 End: 02-05-2024 History of Social function [facility] Start: 04-18-2022 End: 02-05-2024 Tobacco use panel [facility] National Score (1-10 0), lower number is lower risk 70 [facility] Start: 05-31-2022 Gender identity Identifies as female gender (finding) [facility] Start: 05-31-2022 Sexual orientation Heterosexual (fin jamie) [facility] Start: 08-12-2024 End: 09-11-2024 Sex Female (finding) [facility] Medical Equipment Procedure Code Equipment Code Equipment Origin al Text Equipment Identifier Dates Check blood suga r 4 times daily as intructed. Dx: E11.9. Insulin: yes [id number] Start: 01-17-2018 Comment on above: Check blood sugar 4 times daily as intructed. Dx: E11.9. Insulin: yes Functional Status Date Assessment Result Facility 08-19-2021 Functional status Activity Abili ty With Assist of 2 [facility] Work Phone: Mental Status Date Assessment Result Facility 12-02-2024 Cognitive function Voice/Name [facility] Work Phone: 12-01-2024 Cognitive function Awake;Alert;A ppropriate;Follow s Commands [facility] Work Phone: 11-05-2024 Cognitive function Voice/Name [facility] Work Phone: 11-04-2024 Cognitive function Voice/Name [facility] Work Phone: 11-03-2024 Cognitive function Voice/Name [facility] Work Phone: 10-07-2024 Cognitive function Voice/Name [facility] Work Phone: 10-06-2024 Cognitive function Voice/Name [facility] Work Phone: 09-10-2024 Cognitive function Awake;Alert;A ppropriate;Follow s Commands [facility] Work Phone: 09-09-2024 Cognitive function Awake;Alert;A ppropriate;Follow s Commands [facility] Work Phone: 09-08-2024 Cognitive function Awake;Alert;A ppropriate;Follow s Commands [facility] Work Phone: 08-13-2024 Cognitive function Awake;Alert;A ppropriate;Follow s Commands [facility] Work Phone: 08-12-2024 Cognitive function Awake;Alert;A ppropriate;Follow s Commands [facility] Work Phone: 08-11-2024 Cognitive function Awake;Alert;A ppropriate;Follow s Commands [facility] Work Phone: 07-16-2024 Cognitive function Voice/Name [facility] Work Phone: 07-14-2024 Cognitive function Awake;Alert;A ppropriate;Follow s Commands [facility] Work Phone: 06-18-2024 Cognitive function Awake;Alert;A ppropriate;Follow s Commands [facility] Work Phone: 06-17-2024 Cognitive function Voice/Name [facility] Work Phone: 06-16-2024 Cognitive function Awake;Alert;A ppropriate;Follow s Commands [facility] Work Phone: 05-21-2024 Cognitive function Awake;Alert;A ppropriate;Follow s Commands [facility] Work Phone: 04-23-2024 Cognitive function Awake;Alert;A ppropriate;Follow s Commands [facility] Work Phone: 04-22-2024 Cognitive function Awake;Alert;A ppropriate;Follow s Commands [facility] Work Phone: 04-21-2024 Cognitive function Voice/Name [facility] Work Phone: 09-13-2023 Cognitive function Awake;Alert;A ppropriate;Follow s Commands [facility] Work Phone: 09-12-2023 Cognitive function Level Of Cons ciousness Awake;Alert;Appropriate;Follow s Commands [facility] Work Phone: 09-11-2023 Cognitive function Awake;Alert;A ppropriate;Follow s Commands [facility] Work Phone: 09-10-2023 Cognitive function Voice/Name [facility] Work Phone: 09-09-2023 Cognitive function Awake;Alert;A ppropriate;Follow s Commands [facility] Work Phone: 03-01-2022 Cognitive function Level Of Cons ciousness Awake;Alert;Appropriate;Follow s Commands [facility] Work Phone: 08-30-2021 Cognitive function Level Of Cons ciousness Awake;Alert;Appropriate;Follow s Commands [facility] Work Phone: 08-19-2021 Cognitive function Voice/Name [facility] Work Phone: Clinical Notes 11-15-2021 to 11-11-2024 Patient InstructionsWindy Yuen MD - 11/11/2024 12:00 PM EDTTelephone Encounter - Jamiladoc KellenRAGHU - 02/06/2024 8:02 AM EDTSWindy malik MD - 02/05/2024 11:24 AM EDT Note Date & Type Note Facility 11-11-2024 Instructions Windy Yuen MD - 11/11/2024 12:38 PM EDT - Continue your IVIG infusions at [facility] as before, with three consecutive treatment [...] the year. Please call my office at [phone] if you need help coordinating your care. documented in this encounter [facility] 11-11-2024 History of Presen t illness Narrative [...] straightening out slightly. She mentions that a fire management specialist advised against surgery due to her age. 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 Author [...] straightening out slightly. She mentions that a fire management specialist advised against surgery due to her age. 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 documented in this encounter [facility] 02-06-2024 Telephone encounter Note IVIG order was faxed to Madelaine at [facility] at [phone] with confirmation. [facility] 02-05-2024 Note HNO ID: [id number] Author: WINDY YUEN MD Service: ? Author Type: Physician Type: Progress Notes Filed: 02/05/2024 11:52 Note Text: Romain is here for follow up; her daughter joins us on the phone for the appointment. She continues on baclofen and lorazepam. 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 She is now s/p 5 monthly [...] 2g/kg IBW) Fax order to Madelaine at [facility] at [phone] RTC 6 months [facility] 02-05-2024 History of Presen t illness Narrative Images from the original note were not included. Romain is here for follow up; her daughter joins us on the phone for the appointment. She continues on baclofen and lorazepam. 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 She is now s/p 5 monthly [...] 2g/kg IBW) Fax order to Madelaine at [facility] at [phone] RTC 6 months documented in this encounter [facility] 11-24-2023 Telephone encounter Note Patient's appointment changed from 12/17/23 to 02/05/[address] Yuen being out of the office. Appointment details faxed as requested by Nyla morgan, so patient will have transportation for appointment. Faxed to [facility] [place]: [phone] Confirmation ok. [facility] 11-24-2023 Miscellaneous Notes Patient's appointment changed from 12/17/23 to 02/05/[address] Yuen being out of the office. Appointment details faxed as requested by Nyla morgan, so patient will have transportation for appointment. Faxed to [facility] [place]: [phone] Confirmation ok. documented in this encounter [facility] 10-29-2023 Telephone encounter Note Faxed appointment change/reminder to [facility] [place]: [phone]. Confirmation ok. Appointment date for 12/17/23 arrive by 11:45am. [facility] 10-29-2023 Miscellaneous Notes Faxed appointment change/reminder to [facility] [place]: [phone]. Confirmation ok. Appointment date for 12/17/23 arrive by 11:45am. documented in this encounter [facility] 10-15-2023 Telephone encounter Note Pt daughter would like to speak to Dr Yuen via phone regarding noted changed in mother since starting her injections with her Insulin levels as well as Muscle Spasms [facility] 10-15-2023 Miscellaneous Notes Pt daughter would like to speak to Dr Yuen via phone regarding noted changed in mother since starting her injections with her Insulin levels as well as Muscle Spasms documented in this encounter [facility] 09-18-2023 Telephone encounter Note Spoke to Madelaine and relayed message from provider, she voiced understanding at this time and will let patient and daughter know. [facility] 09-18-2023 Miscellaneous Notes Spoke to Madelaine and [...] tolerates the medication well. Per Madelaine from [facility], this patient's daughter would like to have her IVIG dose changed to a higher dose for a shorter duration. States this was discussed with Dr. Yuen previously. Please advise if this is correct and if so, please call Madelaine back at [phone]. A new order and authorization will be needed. documented in this encounter [facility] 09-18-2023 Telephone encounter Note We should keep [...] medication well. [facility] 09-18-2023 Telephone encounter Note Per Madelaine from [facility], this patient's daughter would like to have her IVIG dose changed to a higher dose for a shorter duration. States this was discussed with Dr. Yuen previously. Please advise if this is correct and if so, please call Madelaine back at [phone]. A new order and authorization will be needed. [facility] 08-13-2023 Miscellaneous Notes Faxed office notes, demographic sheet, copy of insurance, we don't have a copy of insurance cards to [phone]. documented in this encounter [facility] 07-31-2023 History of Presen t illness Narrative [...] is able to get the IVIG at [facility]. Office notes and IVIG order was faxed to Madelaine at [facility] at [phone] with confirmation. Our office Spoke to Madelaine and she stated that the patient will need documentation showing a failure or inability to tolerate the baclofen, in order to get approved for Gammagard. And needs progress note faxed to their office at [phone]. It seems like there was a misunderstanding; [...] syndrome Confirmed with qulitative and quantitative testing ([place]) demonstrating high ab titer som 65 lab [...] that she can receive the treatments at [facility]. Will send off IVIG rx for insurance approval. RTC 3 months documented in this encounter [facility] 03-25-2023 Miscellaneous Notes The listed home phone number for the patient is her daughter Nyla's phone. Nyla was notified of the canceled appointment and new appointment. The daughter was instructed that the patient must have someone accompany her to the appointment. The patient resides at the [facility]. Ph. [phone] I called the [facility] and spoke with Mona and the nurse [...] The appointment reminder was faxed to the [facility]. TC to daughter regarding upcoming appointment with Dr. Clemons. 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 Pt will need to be seen by neuromuscular for treatment and care, per . Samira Vieira LPN documented in this encounter [facility] 07-20-2022 Miscellaneous Notes completed a Virtual Visit with patient and facility. CLOSED Called patients daughter Nyla and left to call back office at [phone]. Wanted to check and see how her [...] not know why they arranged for this picker and sorter load and unload time because she would have been late [...] after 9 am to make arrangements. Nyla [phone] documented in this encounter [facility] 06-12-2022 Miscellaneous Notes Faxed new orders to the [facility] at [phone],transmission ok CLOSED Addended by: LA NENA LALA on: 06/12/2022 01:27 PM Modules accepted: Orders Reviewed the blood sugars. She is having low blood sugars in the morning, and mostly high blood sugars with meals, and especially at bedtime. Please call the fdc to let them know of the following [...] this encounter [facility] 06-04-2022 Instructions La Nena Lala MD - 06/04/2022 3:04 PM EST Images from the original note were not included. - Please do blood tests to check TSH, free T4 and A1c, and fax the results to us on [phone] - Please fax the glucose values from the last 2 weeks to us - Do not eat more than 60 g of carbs per meal. documented in this encounter [facility] 06-04-2022 History of Presen t illness Narrative ENDOCRINOLOGY CLINIC NOTE Ms. Mcdermott is a 82 year old female with T1DM and hypothyroidism presented for follow-up of hypothyroidism and diabetes. She presented with her daughter HPI She stays in a fdc due to R foot deformity. She saw a fire management specialist before and was told that she had old changes and no intervention was done. They were hoping to see someone for a second opinion to see if they can help with the foot deformity as this is what is keeping her in the fdc. She is still complaining of spasm in [...] diet has not been optimal at the fdc. A1c: 11/15/21 11:30 Hemoglobin A1C (POCT) 8.1 ! 9.4% in 08/2021 Current regimen: Levemir 29 units in the morning NovoLog based on a sliding scale 1 unit for every 50 starting at 170 Glucose monitoring: She has received the freestyle jeremiah and is being managed by the nurses at the fdc. I did not have the glucose data to make changes today Diet: She eats 3 meals but the options are limited in the fdc Complications: Retinopathy: 6 months ago. She has [...] bed. She has been staying in a fdc for the last couple of years due [...] will contact them to give the instructions. long term phone number is [phone] Some of the above has been copied from prior documentation on 11/15/2021 but foster elements reviewed, confirmed, and/or updated by me (La Nena Lala MD) on 06/04/2022 I spent a total of 40 minutes on the date of the service which included preparing to see the patient, [id number] patient care, completing clinical documentation, obtaining and/or reviewing separately obtained history, and counseling and educating the patient/family/caregiver. Virtual Visit (Audio/Visual)I have discussed the nature of this visit with the patient which will occur via [facility] (Phone, Virtual Visit) and she agrees to proceed with this interaction. La Nena Lala MD documented in this encounter [facility] 04-18-2022 Note HNO ID: [id number] Author: AVELINO Kahn Service: Radiology Author Type: [...] AVELINO Kahn April 18, 2022 3:06 PM [facility] 04-18-2022 History of Presen t illness [...] DM type 1 (diabetes mellitus, type 1) ([facility]) Hypothyroidism Current Outpatient Medications Medication Sig SENNA-DOCUSATE [...] PRN. Maryan Loving DPM, DABPM, FACFAS Pager: [phone] [facility], [facility] and [facility] locations documented in this encounter [facility] 04-18-2022 [...] this encounter [facility] 11-15-2021 History of Presen t illness Narrative Patient brought some medical records. Sent to scanning. Images from the original note were not included. ENDOCRINOLOGY CLINIC NOTE Ms. Mcdermott is a 81 year old female with T1DM and hypothyroidism self-referred for management of hypothyroidism and diabetes. She presented with her daughter HPI She stays in a fdc due to R foot deformity. She saw a fire management specialist before and was told that she had old changes and no intervention was done. They were hoping to see someone for a second opinion to see if they can help with the foot deformity as this is what is keeping her in the fdc. Hypothyroidism: levothyroxine 75 mcg daily. No recent [...] I reviewed the glucose data from the fdc. The values went from September, and no glucose levels were available from October. In September, her glucose levels fluctuated significantly between 65-398 on variable times of day. There is really no pattern regarding the hypo or hyperglycemia Diet: She eats 3 meals but the options are limited in the fdc Complications: Retinopathy: 6 months ago. She has [...] T1DM. She has been staying in a fdc for the last couple of years due to an acquired right foot deformity. Her diabetes is poorly controlled as evidenced by the A1c level and the reviewed glucose data. This is most likely due to suboptimal regimen, inconsistencies with diet and timing of insulin administration at the fdc. We will continue with the same doses [...] only reason why she is in the fdc is because of the right foot deformity I spent a total of 60 minutes on the date of the service which included preparing to see the patient, [id number] patient care, completing clinical documentation, obtaining and/or reviewing separately obtained history, performing a medically appropriate examination, counseling and educating the patient/family/caregiver and ordering medications, tests, or procedures. La Nena Lala MD documented in this encounter [facility] 11-15-2021 Instructions La Nena Lala MD - [...] referred you to orthopedic surgery. Please call [phone] To schedule documented in this encounter [facility] Evaluation note Diagnosis Onset Date SHEKHAR (acute kidney injury) [place] Hyperglycemia due to diabetes mellitus [facility] Work Phone: Evaluation note* Diagnosis Acquired hypothyroidism- Primary Unspecified hypothyroidism Poorly controlled type 1 diabetes mellitus (HCC) Type I (juvenile type) diabetes mellitus without mention of complication, not stated as uncontrolled [facility] Diagnosis Cavovarus deformity of foot, acquired, right- Primary Other osteoporosis without current pathological fracture Hammertoe, bilateral [facility] noteNo assessment information availableWOhioHealth [facility] Work Phone: Evaluation note* Diagnosis Poorly controlled type 1 diabetes mellitus (HCC)- Primary Type I (juvenile type) diabetes mellitus without mention of complication, not stated as uncontrolled Acquired hypothyroidism Unspecified hypothyroidism [facility] Controlled type 2 diabetes mellitus without complication, with long-term current use of insulin (HCC) [facility]* 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* 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 If you have any further concerns please return for repeat evaluationWOhioHealth Van Wert Hospital Work Phone: reason for referral (narrative)* Diagnostic Procedure Only (Routine) - Closed Specialty Diagnoses / Procedures Referred By Contac t Referred To Contact XR IMAGING Diagnoses Pain Procedures XR FOOT GENERAL 3V AP/LAT/OBL RIGHT RADEX FOOT COMPLETE MINIMUM 3 VIEWS Maryan Loving DPM [address] [place] [address] [place] [address] Referral ID Status Reason Start Date Expiration Date V isits Requested Visits Authorized [id number] Closed Auto-Generate d Referral 12/04/2021 01/03/2023 1 1 [facility] for referral (narrative)No reason for referral information availableWOhioHealth Van [facility] Hospital Work Phone: Reiffz for visit Narrative* Diagnostic Procedure Only (Routine) - Closed Specialty Diagnoses / Procedures Referred By Contac t Referred To Contact XR IMAGING Diagnoses Pain Procedures XR FOOT GENERAL 3V AP/LAT/OBL RIGHT RADEX FOOT COMPLETE MINIMUM 3 VIEWS Maryan Loving DPM [address] [place] [id number] [place] [address] Referral ID Status Reason Start Date Expiration Date V isits Requested Visits Authorized [id number] Closed Auto-Generate d Referral 12/04/2021 01/03/2023 1 1 [facility] Chief Complaint and Reason for Visit Chief [...] No August 18, 2021 6:10pm Power of Guide Tour No August 18 6:10pm Advance Directive Response Recorded Date/ Time Living Will No August 18, 2021 9:27pm Power of Guide Tour No August 18 9:27pm Advance Directive Response Recorded Date/ Time Living Will No August 30, 2021 6:13pm Power of Guide Tour No August 30 6:13pm Advance Directive Response Recorded Date/ Time Name of Medical Power of Guide Tour Nyla Mcnulty April 28, 2022 10:03pm Living Will Yes April 28, 022 10:03pm Power of Guide Tour Yes April 28, 2022 10:03pm Advance Directive Response Recorded Date/ Time Living Will Yes April 28, 022 11:03pm Power of Guide Tour Yes April 28, 2022 11:03pm Reason for Referral Specialty Diagnoses / Procedures Referred By Contac t Referred To Contact Orthopedics Diagnoses Acquired hypothyroidism Poorly controlled type 1 diabetes mellitus (HCC) Procedures CONSULT TO ORTHOPAEDICS OFFICE/OUTPATIENT [facility] MDM 60-74 MINUTES La Nena Lala MD [address] [place] [address] Referral ID Status Reason Start Date Expiration Date Visits Requested Visits Authorized [id number] Authorized PCP Requested Referral 11/15/2021 11/15/2022 1 1 Specialty Diagnoses / Procedures Referred By Contac t Referred To Contact Diagnoses Stiff person syndrome Procedures PROVIDER ORDERED FOLLOW UP OFFICE/OUTPATIENT [facility] MDM 60 MINUTES Windy Yuen MD [address] [place] [id number] Referral ID Status Reason Start Date Expiration Date Visits Requested Visits Authorized [id number] Authorized PCP Requested Referral 10/31/2023 07/30/2024 1 [...] drug abuse patient.[facility] the event this information is protected by the Federal Confidentiality of Alcohol and Drug Abuse Patient Records regulations: The Federal rules restrict any use of the information to criminally investigate or prosecute any alcohol or drug abuse patient.[facility] the event this information is protected by the Federal Confidentiality of Alcohol and Drug Abuse Patient Records regulations: The Federal rules restrict any use of the information to criminally investigate or prosecute any alcohol or drug abuse patient.[facility] the event this information is protected by the Federal Confidentiality of Alcohol and Drug Abuse Patient Records regulations: The Federal rules restrict any use of the information to criminally investigate or prosecute any alcohol or drug abuse patient.[facility] the event this information is protected by the Federal Confidentiality of Alcohol and Drug Abuse Patient Records regulations: The Federal rules restrict any use of the information to criminally investigate or prosecute any alcohol or drug abuse patient.[facility] the event this information is protected by the Federal Confidentiality of Alcohol and Drug Abuse Patient Records regulations: The Federal rules restrict any use of the information to criminally investigate or prosecute any alcohol or drug abuse patient.[facility]on[facility] the event this information is protected by the Federal Confidentiality of Alcohol and Drug Abuse Patient Records regulations: The Federal rules restrict any use of the information to criminally investigate or prosecute any alcohol or drug abuse patient.[facility]on[facility] the event this information is protected by the Federal Confidentiality of Alcohol and Drug Abuse Patient Records regulations: The Federal rules restrict any use of the information to criminally investigate or prosecute any alcohol or drug abuse patient.[facility]on[facility] the event this information is protected by the Federal Confidentiality of Alcohol and Drug Abuse Patient Records regulations: The Federal rules restrict any use of the information to criminally investigate or prosecute any alcohol or drug abuse patient.[facility]on[facility] the event this information is protected by the Federal Confidentiality of Alcohol and Drug Abuse Patient Records regulations: The Federal rules restrict any use of the information to criminally investigate or prosecute any alcohol or drug abuse patient.[facility]on[facility] the event this information is protected by the Federal Confidentiality of Alcohol and Drug Abuse Patient Records regulations: The Federal rules restrict any use of the information to criminally investigate or prosecute any alcohol or drug abuse patient.[facility]on[facility] the event this information is protected by the Federal Confidentiality of Alcohol and Drug Abuse Patient Records regulations: The Federal rules restrict any use of the information to criminally investigate or prosecute any alcohol or drug abuse patient.[facility]on[facility] the event this information is protected by the Federal Confidentiality of Alcohol and Drug Abuse Patient Records regulations: The Federal rules restrict any use of the information to criminally investigate or prosecute any alcohol or drug abuse patient.[facility]on[facility] the event this information is protected by the Federal Confidentiality of Alcohol and Drug Abuse Patient Records regulations: The Federal rules restrict any use of the information to criminally investigate or prosecute any alcohol or drug abuse patient.[facility]on[facility] the event this information is protected by the Federal Confidentiality of Alcohol and Drug Abuse Patient Records regulations: The Federal rules restrict any use of the information to criminally investigate or prosecute any alcohol or drug abuse patient.[facility]on[facility] the event this information is protected by the Federal Confidentiality of Alcohol and Drug Abuse Patient Records regulations: The Federal rules restrict any use of the information to criminally investigate or prosecute any alcohol or drug abuse patient.[facility]onIn the event this information is protected by the Federal Confidentiality of Alcohol and Drug Abuse Patient Records regulations: The Federal rules restrict any use of the information to criminally investigate or prosecute any alcohol or drug abuse patient.[facility]onIn the event this information is protected by the Federal Confidentiality of Alcohol and Drug Abuse Patient Records regulations: The Federal rules restrict any use of the information to criminally investigate or prosecute any alcohol or drug abuse patient.[facility] Reason for Visit (unrecogniz ed section and [...] Appointment Update F axed to [facility] for 12/17/23 Reason Comments Appointment Update faxed to [facility] for appointment 02/05/24 Reason Comments Follow Up Patient states no ch anges. Reason Comments Orders IVIG INFORMATION SOURCE (unrecogn ized section and content) DATE CREATED AUTHOR 03/15/2022 [facility] DATE CREATED AUTHOR AUTHOR'S ORGANIZ ATION 04/19/2022 [facility] DATE CREATED AUTHOR AUTHOR'S ORGANIZ ATION 11/13/2024 [facility] DATE CREATED AUTHOR AUTHOR'S ORGANIZ ATION 11/15/2024 [facility] Care Teams (unrecognized sec tion and content) Tank Furnace Operator Relationship Specialty Start Date End Date Rg Menchaca MD [address] [place] [address] [address] [place] [address] PCP - General Family Medicine 04/18/22 Tank Furnace Operator Relationship Specialty Start Date End Date Rg Menchaca MD [address] [place] [address] [address] [place] [address] PCP - General Family Medicine 04/18/22 Tank Furnace Operator Relationship Specialty Start Date End Date Rg Menchaca MD [address] [place] [address] [address] [place], [place] [id number] PCP - General Family Medicine 04/18/22 Tank Furnace Operator Relationship Specialty Start Date End Date Rg Menchaca MD [address] [facility] [address] [place], [place] [id number] PCP - General Family Medicine 04/18/22 Tank Furnace Operator Relationship Specialty Start Date End Date Rg Menchaca MD [address] [facility] [address] [place] [address] PCP - General Family Medicine 04/18/22 Tank Furnace Operator Relationship Specialty Start Date End Date Rg Menchaca MD [address] [facility] [address] [place] [address] PCP - General Family Medicine 04/18/22 Tank Furnace Operator Relationship Specialty Start Date End Date Rg Menchaca MD [address] [facility] [address] [place] [address] PCP - General Family Medicine 04/18/22 Team Status: Active Member Role Status Dates Dr. Rg Menchaca MD Family Provider Active Dr. Rg Menchaca MD Primary Care Provider Active Team Status: Inactive Member Role Status Dates Dr. Rg Menchaca MD Primary Care Provider Active TRIPP NORRIS Attending Provider, Referring Provide r Active Tank Furnace Operator Relationship Specialty Start Date End Date Rg Menchaca MD [address] [facility] [address] [place] [address] PCP - General Family Medicine 04/18/22 Tank Furnace Operator Relationship Specialty Start Date End Date Rg Menchaca MD [address] [facility] [address] [place] [address] PCP - General Family Medicine 04/18/22 Tank Furnace Operator Relationship Specialty Start Date End Date Rg Menchaca MD [address] [facility] [address] [place] [address] PCP - General Family Medicine 04/18/22 Tank Furnace Operator Relationship Specialty Start Date End Date Rg Menchaca MD [address] [facility] [address] [place] [address] PCP - General Family Medicine 04/18/22 Team [...] November 05, 2024 End: November 05, 2024 Tank Furnace Operator Relationship Specialty Start Date End Date Rg Menchaca MD [address] [facility] [address] [place] [address] PCP - General Family Medicine 04/18/22 Team Status: Active Member Role/Relationship Status Dates Dr. Rg Menchaca MD Primary Care Provider Active Team Status: Inactive Member Role/Relationship Status Dates Dr. Rg Menchaca MD Primary Care Provider Active Start: August 11, 2024 End: August 11, 2024 Dr. Windy uYen MD Attending Provider Active Start: August 11, [...] BE BASED ON THE PRIMARY CLINICAL RECORDS. [employer] provides no warranty or guarantee of the accuracy or completeness of information in this document.
[2024-12-03] MEDS: Immune Globulin 10 gm 10 GM/100 ML VIAL IV (11:36)
[2024-12-03] MEDS: Immune Globulin 5 GM 5 GM/50 ML VIAL IV (12:17)
== END 2024-12-03 23:59 | disposition home or self-care (01) ==
LOC: MEDOUTP 08:01
PROVIDERS: PCP Family Medicine; Referring Provider Psychiatry & Neurology Neurology; Visit Provider Psychiatry & Neurology Neurology
DX: G25.82 Stiff-man syndrome (principal)
CPT/HCPCS: 96365; 96366; 96375; A4216; J1568

== ENCOUNTER 2025-01-06 08:03 | Outpatient (CLI) | payer MEDICARE, MEDICAID, SELFPAY ==
[2025-01-06 08:15] VITALS: BP 128/87; PULSE 69; RESP 16; TEMP 36.1; O2SAT 98; BMI 25.3
[2025-01-06] MEDS: 0.9% NaCl Peripheral Flush Adult IV ×2 (08:35→12:32)
[2025-01-06] MEDS: DiphenhydrAMINE 50 MG/ML Syringe 25 MG IV (08:35)
[2025-01-06] MEDS: Immune Globulin 20 gm 20 GM/200 ML VIAL IV (09:00)
[2025-01-06] MEDS: Immune Globulin 10 gm 10 GM/100 ML VIAL IV (11:29)
[2025-01-06] MEDS: Immune Globulin 5 GM 5 GM/50 ML VIAL IV (12:11)
== END 2025-01-06 23:59 | disposition home or self-care (01) ==
LOC: MEDOUTP 08:04
PROVIDERS: PCP Family Medicine; Referring Provider Psychiatry & Neurology Neurology; Visit Provider Psychiatry & Neurology Neurology
DX: G25.82 Stiff-man syndrome (principal)
CPT/HCPCS: 96365; 96366; 96375; A4216; J1568

== ENCOUNTER 2025-01-07 07:43 | Outpatient (CLI) | payer MEDICARE, MEDICAID, SELFPAY ==
[2025-01-07 07:50] VITALS: BP 92/77; PULSE 77; RESP 16; TEMP 35.9; O2SAT 95; BMI 25.3
[2025-01-07] MEDS: 0.9% NaCl Peripheral Flush Adult IV ×2 (07:56→12:29)
[2025-01-07] MEDS: 0.9% NaCl IVPB Med Flush (100mL) 15 ML IV (07:57)
[2025-01-07] MEDS: DiphenhydrAMINE 50 MG/ML Syringe 25 MG IV (07:58)
[2025-01-07] MEDS: Immune Globulin 20 gm 20 GM/200 ML VIAL IV (08:25)
[2025-01-07] MEDS: Immune Globulin 10 gm 10 GM/100 ML VIAL IV (11:07)
[2025-01-07] MEDS: Immune Globulin 5 GM 5 GM/50 ML VIAL IV (11:48)
== END 2025-01-07 23:59 | disposition home or self-care (01) ==
LOC: MEDOUTP 07:43
PROVIDERS: PCP Family Medicine; Referring Provider Psychiatry & Neurology Neurology; Visit Provider Psychiatry & Neurology Neurology
DX: G25.82 Stiff-man syndrome (principal)
CPT/HCPCS: 96365; 96366; 96375; A4216; J1568

== ENCOUNTER 2025-01-08 07:38 | Outpatient (CLI) | payer MEDICARE, MEDICAID, SELFPAY ==
[2025-01-08 07:50] VITALS: BP 122/70; PULSE 71; RESP 16; TEMP 36.2; O2SAT 96; BMI 25.4
[2025-01-08] MEDS: 0.9% NaCl Peripheral Flush Adult IV (08:02)
[2025-01-08] MEDS: DiphenhydrAMINE 50 MG/ML Syringe 25 MG IV (08:02)
[2025-01-08] MEDS: Immune Globulin 20 gm 20 GM/200 ML VIAL IV (08:28)
[2025-01-08] MEDS: Immune Globulin 10 gm 10 GM/100 ML VIAL IV (11:05)
[2025-01-08] MEDS: Immune Globulin 5 GM 5 GM/50 ML VIAL IV (11:44)
== END 2025-01-08 23:59 | disposition home or self-care (01) ==
LOC: MEDOUTP 07:39
PROVIDERS: PCP Family Medicine; Referring Provider Psychiatry & Neurology Neurology; Visit Provider Psychiatry & Neurology Neurology
DX: G25.82 Stiff-man syndrome (principal)
CPT/HCPCS: 96365; 96366; 96375; A4216; J1568

== ENCOUNTER 2025-02-02 07:41 | Outpatient (CLI) | payer MEDICARE, MEDICAID, SELFPAY ==
[2025-02-02 07:55] VITALS: BP 97/67; PULSE 80; RESP 16; TEMP 36.1; O2SAT 99; BMI 25.3
--- OUTSIDE RECORDS SUMMARY | 2025-02-02 08:00 | XMS RPT_ITS | CCD ---
Author Organization [facility] Care Team Providers Care Electronic Scale Subassembler Name Role Phone Dr. Rg Menchaca Primary Care Provider MD Saul Cruz Emergency Provider Dr. Sean Godwin Admit Provider Dr. Elise Sanchez Attending Provider Dr. Elise Sanchez Other Provider Unavailable Primary Care Provider Unavailabl Rg Escobar MD Primary Care Provider [phone] PROVIDER, UNKNOWN Referring Unavailable PROVIDER, UNKNOWN Referring Unavailable Rg Menchaca MD Primary Care Provider Rg Menchaca MD Primary Care Provider Rg Menchaca MD Primary Care Provider Doyle ANDRADE, Dr. Dize Primary Care Provider [phone] Tripp ANDRADE, Dr. Norris Attending Provider Tripp ANDRADE, Dr. Norris Referring Provider Doyle ANDRADE, Dr. Diez Primary Care Provider [phone] Tripp ANDRADE, Dr. Norris Attending Provider Tripp ANDRADE, Dr. Norris Referring Provider Doyle ANDRADE, Dr. Diez Primary Care Provider Tripp ANDRADE, Dr. Norris Attending Provider Tripp ANDRADE, Dr. Norris Referring Provider [phone] Doyle ANDRADE, Dr. Diez Primary Care Provider Tripp ANDRADE, Dr. Norris Attending Provider Tripp ANDRADE, Dr. Norris Referring Provider Doyle ANDRADE, Rg Norris Primary Care Provider TRIPP, WINDY S Attending Unavailable MENCHACA, RG Norris Primary Care Unavailable SPOLTER, WINDY S Attending Unavailable MENCHACA, RG Norris Primary Care Unavailable Doyle ANDRADE, Dr. Diez Primary Care Provider Tripp ANDRADE, Dr. Norris Attending Provider Tripp ANDRADE, Dr. Norris Referring Provider Doyle ANDRADE, Dr. Diez Primary Care Provider Tripp ANDRADE, Dr. Norris Attending Provider Tripp ANDRADE, Dr. Norris Referring Provider Doyle ANDRADE, Dr. Diez Primary Care Provider [phone] Tripp ANDRADE, Dr. Norris Attending Provider Tripp ANDRADE, Dr. Norris Referring Provider Doyle ANDRADE, Dr. Diez Primary Care Provider Tripp ANDRADE, Dr. Norris Attending Provider Trpip ANDRADE, Dr. Norris Referring Provider [phone] Spolter, Windy Attending Unavailable Spolter, Windy Referring Unavailable Menchaca, Rg Primary Care Unavailable Spolter, Windy Referring Unavailable Menchaca, Rg Primary Care Unavailable Spolter, Windy Attending Unavailable Spolter, Windy Referring Unavailable Menchaca, Rg Primary Care Unavailable Spolter, Windy Attending Unavailable Spolter, Windy Referring Unavailable Menchaca, Rg Primary Care Unavailable Spolter, Windy Attending Unavailable Spolter, Windy Attending Unavailable Spolter, Windy Referring Unavailable Menchaca, Rg Primary Care Unavailable Spolter, Windy Attending Unavailable Spolter, Windy Referring Unavailable Menchaca, Rg Primary Care Unavailable Spolter, Windy Referring Unavailable Menchaca, Rg Primary Care Unavailable Spolter, Windy Attending Unavailable Spolter, Windy Attending Unavailable Spolter, Windy [...] Unavailable Spolter, Windy Attending Unavailable Spolter, Windy Attending Unavailable Spolter, Windy Referring Unavailable Menchaca, Rg Primary Care Unavailable Spolter, Windy Attending Unavailable Spolter, Windy Referring Unavailable Menchaca, Rg Primary Care Unavailable Menchaca, Rg Primary Care Unavailable Spolter, Windy Referring Unavailable Spolter, Windy Attending Unavailable Spolter, Windy Attending Unavailable Spolter, Windy [...] Unavailable Spolter, Windy Attending Unavailable Spolter, Windy Attending Unavailable Menchaca, Rg Primary Care Unavailable Spolter, Windy Referring Unavailable Spolter, Windy Attending Unavailable Menchaca, gR Primary Care Unavailable Spolter, Windy Referring Unavailable Spolter, Windy Attending Unavailable Spolter, Windy Referring Unavailable Menchaca, Rg Primary Care Unavailable Spolter, Windy Attending Unavailable Spolter, Windy Referring Unavailable Menchaca, Rg Primary Care Unavailable Medications Current Medications Medication Drug Class(es) [...] daily. Blood-Glucose Meter (RELION PRIME METER) misc (18 sources) Start: 01-17-2018 [facility] (RELION [facility]ER[facility] Indications: Type 2 diabetes mellitus with complication, with long-term current use of insulin (HCC) 1 Each four times daily. Dx: E11.9. Insulin: yes 1 Each 01/17/2018 Active Start: 01-17-2018 Blood-Glucose Meter (RELION PRIME METER) [facility] Indications: Type 2 diabetes mellitus with complication, [...] Inject intramuscularly. glucose 0.4 mg/mg oral gel (20 sources) Start: 024 Dextrose (Glutose-15) 40 % [...] mg PO and acetaminophen [address] [place]. [address] mL 11 02/05/2024 02/05/2024 Discontinued 3 ml [...] Flextouch U100 Insulin) 100 UNITS/ML insulin pen (11 sources) Start: 04-21-2018 Insulin Detemir U-100 (Levemir Flextouch U100 Insulin) 100 UNITS/ML insulin pen Active 22 U SC .qam April 21, 2018 1:00am Start: 04-21-2018 Insulin Detemi r U-100 (Levemir Flextouch U100 Insulin) 100 UNITS/ML insulin pen Active 28 UNITS SC .qam April 21, 2018 1:00am 3 ml insulin glargine 100 unt/ml pen injector (1 source) Insulin Analog Start: 10-28-2024 LANCOCO YOA R U-100 INSULIN 100 unit/mL (3 mL) [...] 2021 8:20pm loratadine 10 mg oral tablet (9 sources) Start: 5 take 1 tablet by [...] by mout h every morning. Magnesium Hydroxide (20 sources) Start: 4 take 1 mL by [...] portion Mineral Oil (Fleet Mineral Oil) enema (6 sources) Start: 09-09-2023 Mineral Oil (F leet [...] fo r nausea/vomiting. Senna Plus (senna-docusate ) (20 sources) Start: 04-28-20 take 8.6-50 mg by [...] on above: Take 1 tablet by finesse once daily. 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 She mentions that a block operator advised against surgery due to her age. Romain is currently receiving IVIG therapy at [facility], which began with five days per [...] syndrome Confirmed with qulitative and quantitative testing (sp[place]wood) demonstrating high ab titer som 65 lab [...] IBW) Fax order to Madelaine at [facility] at [phone] RT 6 months Windy Yuen MD 11/11/2024 12:38 PM Signed - Continue your IVIG infusions at [facility] as before, with three consecutive treatment [...] the year. Please call my office at [phone] if you need help coordinating your care. [...] 1050 mLRfl: 5 PROVIDER ORDERED FOLLOW UP [[id number]] Order #: [id number]: 1 FUTURE Prescriptions as of 11/11/2024 - LANTUS SOLOSTAR U-100 INSULIN 100 unit/mL (3 mL) - immune globulin (human) (IgG) 35 g in empty bag Total Volume 350 mL (GAMMAGARD) Inject 350 mL intrave (more content not included)... Normal [facility] ROMAIN MCDERMOTT ([id number]) 1940 F Date Time Provider Department 02/06/24 WINDY YUEN [facility] During your visit today, we recorded the following information about you: Kellen Duran LPN 02/06/2024 8:05 AM Signed IVIG order was faxed to Madelaine at [facility] at [phone] with confirmation. Kellen Duran LPN 02/12/2024 2:00 PM Signed [facility] needed clarification to the IVIG order that was previously sent, completed by Dr. Yuen and re-faxed to them at [phone] with confirmation. Allergies As of Date: 02/06/2024 (No Known Allergies) Date Reviewed: 02/05/2024 Reviewed by: Shira Hager LPN - Fully Assessed Reason for Visit: Orders [611] Cmt: IVIG Prescriptions as of 02/12/2024 - [...] Encounter Status:Closed by KELLEN DURAN on 02/06/24 [facility] CNOVon 02-05-2024 CNOV Office Visit ([facility] ) ROMAIN MCDERMOTT ([id number]) 1940 F Date Time Provider Department 02/05/24 11:30 AM WINDY YUEN [facility] During your visit today, we recorded the following information about you: Pulse Blood pressure 81/minute 116/68 Windy Yuen MD 02/05/2024 11:52 AM Signed Romain is here for follow up; her daughter joins us on the phone for the appointment. She continues on baclofen and lorazepam. She is getting IVIG over 5 days every month at [facility] Had some trouble with the [...] syndrome Confirmed with qulitative and quantitative testing (spicewood) demonstrating high ab titer som 65 lab [...] that she can receive the treatments at [facility]. She is now s/p 5 [...] 2g/kg IBW) Fax order to Madelaine at [facility] at [phone] RTC 6 months Allergies As of Date: [...] (more content not included)... Normal [facility] ROMAIN MCDERMOTT ([id number]) 1940 F Date Time Provider Department 11/24/23 WINDY YUEN [facility] During your visit today, we recorded the following information about you: Naif Oates 11/24/2023 3:16 PM Signed Patient's appointment changed from 12/17/23 to 02/05/[address] Yuen being out of the office. Appointment details faxed as requested by daughter, Nyla, so patient will have transportation for appointment. Faxed to [facility]: [phone] Confirmation ok. Allergies As of Date: 11/24/2023 (No Known Allergies) Date Reviewed: 07/31/2023 Reviewed by: Shruthi Soliz LPN - Fully Assessed Reason for Visit: Appointment [186] Cmt: Update faxed to [facility] for appointment 02/05/24 Prescriptions as of 11/24/2023 [...] Status:Closed by NAIF OATES on 11/24/23 Normal [facility] Glucose Glucometer (BldC) [M ass/Vol]on 04-29-2022 Glucose [Mass/Vol] 94 mg/dL 74-106 [facility] Work Phone: Comment on above: MANAGEMENT OF PATIEN T CARE PER NURSING PROTOCOL Absolute lymphocyte counton 04-28-2022 Lymphocytes Auto (Unsp spec) [#/Vol] 2.37 10*3/uL 0.83-4.51 [facility] Work Phone: Basophil percentageon 2021 Basophils/100 WBC (Bld) 0.3 % 0-1 [facility] Work Phone: Chloride [Moles/Vol] 102 mmol/L 98-107 [facility] Work Phone: Eosinophils/100 WBC (Bld) 0.1 % 0-5 [facility] Work Phone: Glucose [Mass/Vol] 112 mg/dL 74-106 [facility] Work Phone: Comment on above: Fasting Glucose resu lt from 100 to 125 mg/dL suggests IMPAIRED HOMEOSTASIS per A.D.A. criteria. Neutrophils (Bld) [#/Vol] 8.6 10*3/uL 2.0-7.7 [facility] Work Phone: Neutrophils/100 WBC (Bld) 74.7 % 47-70 [facility] Work Phone: Potassium [Moles/Vol] 5.4 mmol/L 3.5-5.1 [facility] Work Phone: Sodium [Moles/Vol] 137 mmol/L 136-145 [facility] Work Phone: WBC (Bld) [#/Vol] 11.5 10*3/uL 4.4-11.0 [facility] Work Phone: Blood erythrocytes count (nu mber/volume)on 04-28-2022 RBC (Bld) [#/Vol] 4.65 10*6/uL 4.2-5.4 [facility] Work Phone: Blood hemoglobin measurement (mass/volume)on 04-28-2022 Hemoglobin (Bld) [Mass/Vol] 13.2 g/dL 12.0-15.0 [facility] Work Phone: Blood lymphocytes/100 leukoc yteson 04-28-2022 Lymphocytes/100 WBC (Bld) 20.6 % 19-41 [facility] Work Phone: Blood monocytes/100 leukocyt eson 04-28-2022 Monocytes/100 WBC (Bld) 3.0 % 0-10 [facility] Work Phone: Blood platelet mean volumeon 04-28-2022 Platelet mean volume (Bld) [Entitic vol] 9.7 fL 6.2-12.0 [facility] Work Phone: Determination of erythrocyte mean corpuscular volume (MCV)on 04-28-2022 MCV (RBC) [Entitic vol] 88.8 fL 81-99 [facility] Work Phone: Hematocrit Auto (Bld) [Volum e fraction]on 04-28-2022 Hematocrit (Bld) [Volume fraction] 41.3 % 37-47 [facility] Work Phone: Laboratory - Chemistry and C hemistry - challengeon 04-28-2022 CO2 [Moles/Vol] 31.0 mmol/L 21.0-32.0 [facility] Work Phone: Magnesium [Mass/Vol] 2.0 mg/dL 1.6-2.6 [facility] Work Phone: Urea nitrogen/Creatinine [Mass ratio] 33.5 mg/mg 10-20 [facility] Work Phone: Laboratory - Hematology and Cell countson 04-28-2022 Erythrocyte distribution width (RBC) [Entitic vol] 44.3 fL 35.1-43.9 [facility] Work Phone: Erythrocyte distribution width (RBC) [Ratio] 13.6 % 11.6-14.6 [facility] Work Phone: Immature granulocytes/100 WBC (Bld) 1.300 % 0.0-0.9 [facility] Work Phone: Comment on above: IG% - Immature Granu locytes (promyelocytes, myelocytes and metamyelocytes) > 1% indicates that a LEFT SHIFT is Present. MCH (RBC) [Entitic mass] 28.4 pg 27.0-32.0 [facility] Work Phone: Nucleated RBC/100 WBC (Bld) [Ratio] 0 % 0-5 [facility] Work Phone: MCHC Auto (RBC) [Mass/Vol]on 04-28-2022 MCHC (RBC) [Mass/Vol] 32.0 g/dL 32-36 [facility] Work Phone: No Panel Informationon 04-28 Estimated Creatinine Clearance Calc 37.12 ml/min [facility] Work Phone: Estimated GFR (MDRD) Amer 118 mL/min >60 [facility] Work Phone: Comment on above: GFR Calc Estimated GFR (MDRD) Non-Af Amer 97 mL/min >60 [facility] Work Phone: Comment on above: Non- GFR Calc Platelets bldon 04-28-2022 Platelets (Bld) [#/Vol] 251 10*3/uL 150-450 [facility] Work Phone: Serum or plasma calcium roger urement (mass/volume)on 04-28-2022 Calcium [Mass/Vol] 9.3 mg/dL 8.5-10.1 [facility] Work Phone: Serum or plasma creatinine m easurement (mass/volume)on 04-28-2022 Creatinine [Mass/Vol] 0.63 mg/dL 0.55-1.02 [facility] Work Phone: Comment on above: The validity of the calculated GFR & GFRAA in patients over 70 years has not been determined. Clinical correlation is essential. Serum or plasma urea nitroge n measurement (mass/volume)on 04-28-2022 Urea nitrogen [Mass/Vol] 21 mg/dL 7-18 [facility] Work Phone: Thin prep Papanicolaou smear with manual screeningon 04-28-2022 Thin prep Papanicolaou smear with manual screening 4 5-15 [facility] Work Phone: XR Foot - right AP and Later al and obliqueon 04-19-2022 IMPRESSION: Unchanged deformity of the right foot, no acute bony process is identified. Senior Marketing Coordinator: YOBANY Transcribe Date/Time: Apr 19 2022 7:25A Dictated by : LESA MCLAUGHLIN MD This examination was interpreted and the report reviewed and electronically signed by: LESA MCLAUGHLIN MD on Apr 19 2022 7:27AM [facility] * * *Final Report* * * DATE OF EXAM: Apr 18 2022 3:07PM MDO 5337 - XR FOOT 3V AP/LAT/OBL RT / PROCEDURE REASON: [id number] * * * * Physician Interpretation * * * * HISTORY: RIGHT FOOT PAIN. Pain . TECHNIQUE: XR FOOT 3V AP/LAT/OBL RT Laterality: RIGHT Number of different views (projections): 3 COMPARISON: February 2018 RESULT: Equinovarus deformity again identified. Bones are osteoporotic unchanged. No fracture. Joint spaces are grossly maintained. [facility] Provider, Susanne Patel [facility] - 04/19/2022 * * *Final Report* * * DATE OF EXAM: Apr 18 2022 3:07PM MDO 5337 - XR FOOT 3V AP/LAT/OBL RT / PROCEDURE REASON: [id number] * * * * Physician Interpretation * * * * HISTORY: RIGHT FOOT PAIN. Pain . TECHNIQUE: XR FOOT 3V AP/LAT/OBL RT Laterality: RIGHT Number of different views (projections): 3 COMPARISON: February 2018 RESULT: Equinovarus deformity again identified. Bones are osteoporotic unchanged. No fracture. Joint spaces are grossly maintained. IMPRESSION IMPRESSION: Unchanged deformity of the right foot, no acute bony process is identified. Senior Marketing Coordinator: PSCB Transcribe Date/Time: Apr 19 2022 7:25A Dictated by : LESA MCLAUGHLIN MD This examination was interpreted and the report reviewed and electronically signed by: LESA MCLAUGHLIN MD on Apr 19 2022 7:27AM [facility] XR Foot - right AP and Later al and obliqueOrdered By: [facility] Provider on 04-19-2022 [facility] XR FOOT 3V AP/LAT/OBL RTon 06-18-2021 XR FOOT 3V AP/LAT/OBL RT * * *Final Report* * * DATE OF EXAM: Apr 18 2022 3:07PM MDO 5337 - XR FOOT 3V AP/LAT/OBL RT / PROCEDURE REASON: [id number] * * * * Physician Interpretation * * * * HISTORY: RIGHT FOOT PAIN. Pain . TECHNIQUE: XR FOOT 3V AP/LAT/OBL RT Laterality: RIGHT Number of different views (projections): 3 COMPARISON: February 2018 RESULT: Equinovarus deformity again identified. Bones are osteoporotic unchanged. No fracture. Joint spaces are grossly maintained. IMPRESSION: Unchanged deformity of the right foot, no acute bony process is identified. Senior Marketing Coordinator: PSCB Transcribe Date/Time: Apr 19 2022 7:25A Dictated by : LESA MCLAUGHLIN MD This examination was interpreted and the report reviewed and electronically signed by: LESA MCLAUGHLIN MD on Apr 19 2022 7:27AM EST [id number] [facility] XR Foot - right AP and Later al and obliqueon 04-18-2022 Radiology Study observation (narrative) [facility] URINE CULTURE,BACTERIALon URINE CULTURE,BACTERIAL PATIENT: ROMAIN MCDERMOTT [place] [facility] [place] [place]#: [id number] : 44 AGE: SEX: F ORDERED BY: RG MENCHACA SOURCE: URINE COLLECTED: 03/12/22 13:05 ANTIBIOTICS AT [facility].: RECEIVED : 03/13/22 23:52 SITE: Clean Catch/Voided R E S U L T S URINE CULTURE,BACTERIAL FINAL 03/14/22 18:39 MULTIPLE ORGANISMS PRESENT, PROBABLE CONTAMINATION PLEASE REPEAT CULTURE. Normal [facility] Comment on above: Performed By: #### U [facility] #### [facility] [address] [place] [address] URINE CULTURE,BACTERIALon URINE CULTURE,BACTERIAL PATIENT: ROMAIN MCDERMOTT [place] [facility] [place]#: [id number] : 44 AGE: SEX: F ORDERED BY: RG MENCHACA SOURCE: URINE COLLECTED: 03/08/22 05:42 ANTIBIOTICS AT [facility].: RECEIVED : 03/08/22 20:26 SITE: Unspecified R E S U L T S URINE CULTURE,BACTERIAL FINAL 03/09/22 12:43 MULTIPLE ORGANISMS PRESENT, PROBABLE CONTAMINATION PLEASE REPEAT CULTURE. Normal [facility] Comment on above: Performed By: #### U RINC #### [facility] [address] [place] [address] Absolute lymphocyte counton 03-01-2022 Lymphocytes Auto (Unsp spec) [#/Vol] 2.41 10*3/uL 0.83-4.51 [facility] Work Phone: Basophil percentageon 2021 Basophils/100 WBC (Bld) 0.5 % 0-1 [facility] Work Phone: Chloride [Moles/Vol] 101 mmol/L 98-107 [facility] Work Phone: Eosinophils/100 WBC (Bld) 1.7 % 0-5 [facility] Work Phone: Glucose [Mass/Vol] 237 mg/dL 74-106 [facility] Work Phone: Comment on above: Glucose result great er than or equal to 200 mg/dLsuggests DIABETES MELLITUS per A.D.A. criteria. Neutrophils (Bld) [#/Vol] 6.7 10*3/uL 2.0-7.7 [facility] Work Phone: Neutrophils/100 WBC (Bld) 66.4 % 47-70 [facility] Work Phone: Potassium [Moles/Vol] 4.4 mmol/L 3.5-5.1 [facility] Work Phone: Sodium [Moles/Vol] 136 mmol/L 136-145 [facility] Work Phone: WBC (Bld) [#/Vol] 10.0 10*3/uL 4.4-11.0 [facility] Work Phone: Blood erythrocytes count (nu mber/volume)on 03-01-2022 RBC (Bld) [#/Vol] 4.90 10*6/uL 4.2-5.4 [facility] Work Phone: Blood hemoglobin measurement (mass/volume)on 03-01-2022 Hemoglobin (Bld) [Mass/Vol] 14.0 g/dL 12.0-15.0 [facility] Work Phone: Blood lymphocytes/100 leukoc yteson 03-01-2022 Lymphocytes/100 WBC (Bld) 24.0 % 19-41 [facility] Work Phone: Blood monocytes/100 leukocyt eson 03-01-2022 Monocytes/100 WBC (Bld) 6.6 % 0-10 [facility] Work Phone: Blood platelet mean volumeon 03-01-2022 Platelet mean volume (Bld) [Entitic vol] 10.1 fL 6.2-12.0 [facility] Work Phone: Determination of erythrocyte mean corpuscular volume (MCV)on 03-01-2022 MCV (RBC) [Entitic vol] 86.9 fL 81-99 [facility] Work Phone: Hematocrit Auto (Bld) [Volum e fraction]on 03-01-2022 Hematocrit (Bld) [Volume fraction] 42.6 % 37-47 [facility] Work Phone: Laboratory - Chemistry and C hemistry - challengeon 03-01-2022 CO2 [Moles/Vol] 27.0 mmol/L 21.0-32.0 [facility] Work Phone: Urea nitrogen/Creatinine [Mass ratio] 23.0 mg/mg 10-20 [facility] Work Phone: Laboratory - Hematology and Cell countson 03-01-2022 Erythrocyte distribution width (RBC) [Entitic vol] 44.4 fL 35.1-43.9 [facility] Work Phone: Erythrocyte distribution width (RBC) [Ratio] 13.8 % 11.6-14.6 [facility] Work Phone: Immature granulocytes/100 WBC (Bld) 0.800 % 0.0-0.9 [facility] Work Phone: Comment on above: IG% - Immature Granu locytes (promyelocytes, myelocytes and metamyelocytes) > 1% indicates that a LEFT SHIFT is Present. MCH (RBC) [Entitic mass] 28.6 pg 27.0-32.0 [facility] Work Phone: Nucleated RBC/100 WBC (Bld) [Ratio] 0 % 0-5 [facility] Work Phone: MCHC Auto (RBC) [Mass/Vol]on 03-01-2022 MCHC (RBC) [Mass/Vol] 32.9 g/dL 32-36 [facility] Work Phone: No Panel Informationon 03-01 Estimated Creatinine Clearance Calc 37.74 ml/min [facility] Work Phone: Estimated GFR (MDRD) Amer 69 mL/min >60 [facility] Work Phone: Comment on above: GFR Calc Estimated GFR (MDRD) Non-Af Amer 57 mL/min >60 [facility] Work Phone: Comment on above: Non- GFR Calc Platelets bldon 03-01-2022 Platelets (Bld) [#/Vol] 228 10*3/uL 150-450 [facility] Work Phone: Serum or plasma acetone roger urement (mass/volume)on 03-01-2022 Acetone [Mass/Vol] Negative NEG [facility] Work Phone: Serum or plasma calcium roger urement (mass/volume)on 03-01-2022 Calcium [Mass/Vol] 10.1 mg/dL 8.5-10.1 [facility] Work Phone: Serum or plasma creatinine m easurement (mass/volume)on 03-01-2022 Creatinine [Mass/Vol] 1.00 mg/dL 0.55-1.02 [facility] Work Phone: Comment on above: The validity of the calculated GFR & GFRAA in patients over 70 years has not been determined. Clinical correlation is essential. Serum or plasma urea nitroge n measurement (mass/volume)on 03-01-2022 Urea nitrogen [Mass/Vol] 23 mg/dL 7-18 [facility] Work Phone: Thin prep Papanicolaou smear with manual screeningon 03-01-2022 Thin prep Papanicolaou smear with manual screening 10-01 [facility] Work Phone: C peptide SerPl-mCncon 11-15 C peptide [Mass/Vol] <0.20 Low 0.81-3.85 [facility] Comment on above: Order Comment: Malini solorio Type: BLOOD SPECIMEN Ordering Facility: [facility] Address: [address] [place] [address] Result Comment: Resu lt rechecked. Performed By: #### 1 [id number] #### [facility] CLIA [id number] [address] [place] [address] [place] GAD65 Ab Ser-aCncon 11-16-19 22 Glutamate decarboxylase 65 Ab Qn (S) >120.0 High <=5.0 [facility] Comment on above: Order Comment: Malini solorio Type: BLOOD SPECIMEN Ordering Facility: [facility] Address: [address] [place] [address] Result Comment: Anti -glutamic acid decarboxylase antibody [...] correlation is required. Performed By: #### I NSKATIE, [id number] #### [facility] CLIA [id number] [address] [place] [address] [place] GLUCOSE RANDOM BLDon 022 Glucose [Mass/Vol] 94 mg/dL 74 - 99 mg/dL [facility] Glucose SerPl-mCncon 022 Glucose [Mass/Vol] 94 mg/dL Normal 74-99 [facility] Comment on above: Order Comment: Malini solorio Type: BLOOD SPECIMEN Ordering Facility: [facility] Address: [address] [place], [place] [id number] Result Comment: The [place] [employer] (ADA) provides guidance for cutoff [...] Standards of Medical Care in Diabetes 2016, [place] [employer]. Diabetes Care. 2016.39(Suppl 1). Performed By: #### 2 345-7, 3016-3 #### [facility] CLIA [id number] [address] [place] [address] [place] Glutamate decarboxylase 65 A b Qn (S)on 11-15-2021 GLUTAMIC ACID DECARBOXYLAS AB QUALITATIVE Positive Abnormal Negative [facility] Comment on above: Order Comment: Malini solorio Type: BLOOD SPECIMEN Ordering Facility: [facility] Address: [address] [place], [place] [id number] Performed By: #### I NSLAB, 61433-0 #### [facility] CLIA [id number] [address] [place] [address] [place] HEMOGLOBIN A1C (POC)on 11-15 HbA1c (Bld) [Mass fraction] 8.1 % Abnormal 4.2 - 5.6 % [facility] INSULIN ANTIBODY BLDon 11-15 Insulin Ab Qn (S) <0.4 Normal <0.4 [facility] Comment on above: Order Comment: Malini solorio Type: BLOOD SPECIMEN Ordering Facility: [facility] Address: [address] [place], [place] [id number] Result Comment: Anti -insulin antibody test is used as an aid in diagnosis and prognosis of autoimmune diabetes mellitus in combination with other tests such as anti-GAD65 and anti-IA-2 antibody. A single negative result cannot rule out autoimmune diabetes mellitus. The test is not reliable in patients who had previously received exogenous insulin. Clinical correlation is required. Performed By: #### I NSLAB, 23752-4 #### [facility] CLIA [id number] [address] [place] [address] [place] INSULIN ANTIBODY, QUALITATIVE Negative Normal Negative [facility] Comment on above: Order Comment: Malini solorio Type: BLOOD SPECIMEN Ordering Facility: [facility] Address: [address] [place] [address] Performed By: #### I NSLAB, 17669-1 #### [facility] CLIA [id number] [address] [place] [address] [place] INSULINOMA ASSOCIATED ANTIBO DY 2on 11-15-2021 IA 2 ANTIBODY BLOOD <5.4 Normal <7.5 [facility] Comment on above: Order Comment: Malini solorio Type: BLOOD SPECIMEN Ordering Facility: [facility] Address: [address] [place] [address] Result Comment: Anti -insulinoma associated antigen 2 (IA-2) antibody test is used as an aid in diagnosis of type I diabetes mellitus, to predict the risk of progression to type I diabetes mellitus among susceptible individuals, and to predict the necessity of insulin therapy in adult-onset diabetes mellitus. Clinical correlation is required. Performed By: #### I A2AB #### [facility] CLIA [id number] [address] [place] [place] [address] OF [place] ISLET CELL ABon 11-15-2021 ISLET CELL AB <1:4 Normal <1:4 [facility] Comment on above: Order Comment: Malini solorio Type: BLOOD SPECIMEN Ordering Facility: [facility] Address: [address] [place] [address] Result Comment: INTE RPRETIVE INFORMATION: Islet Cell [...] developed and its performance characteristics determined by [employer]. It has not been cleared or approved by the US Food and Drug Administration. This test was performed in a CLIA certified laboratory and is intended for clinical purposes. Performed By: [employer] [address] [place] [address] Workers Compensation Analyst: Abdirizak Quintana MD, PhD Performed By: #### I SLET #### [facility] CLIA [id number] [address] [place] [address] T4 Free SerPl-mCncon 022 Free T4 [Mass/Vol] 1.9 ng/dL High 0.9-1.7 [facility] Comment on above: Order Comment: Speci men Type: BLOOD SPECIMEN Ordering Facility: [facility] Address: [address] [place] [address] Performed By: #### 3 024-7 #### [facility] CLIA [id number] [address] [place] [address] [place] TSH BLDon 11-15-2021 TSH Qn 0.073 m[IU]/L Low 0.270 - 4.200 mIU/L [facility] TSH SerPl-aCncon 11-15-2021 TSH Qn 0.073 m[IU]/L Low 0.270-4.200 [facility] Comment on above: Order Comment: Speci lyndsey Type: BLOOD SPECIMEN Ordering Facility: [facility] Address: [address] [place] [address] Performed By: #### 2 345-7, 3016-3 #### [facility] CLIA [id number] [address] [place], [place] [id number] [place] [address] [place] Absolute lymphocyte counton 08-30-2021 Lymphocytes Auto (Unsp spec) [#/Vol] 2.76 10*3/uL 0.83-4.51 [facility] Work Phone: Basophil percentageon 2021 Basophils/100 WBC (Bld) 0.5 % 0-1 [facility] Work Phone: Chloride [Moles/Vol] 104 mmol/L 98-107 [facility] Work Phone: Eosinophils/100 WBC (Bld) 1.3 % 0-5 [facility] Work Phone: Glucose [Mass/Vol] 205 mg/dL 74-106 [facility] Work Phone: Comment on above: Glucose result great er than or equal to 200 mg/dLsuggests DIABETES MELLITUS per A.D.A. criteria. Neutrophils (Bld) [#/Vol] 10.9 10*3/uL 2.0-7.7 [facility] Work Phone: Neutrophils/100 WBC (Bld) 70.9 % 47-70 [facility] Work Phone: Potassium [Moles/Vol] 4.2 mmol/L 3.5-5.1 [facility] Work Phone: Sodium [Moles/Vol] 138 mmol/L 136-145 [facility] Work Phone: WBC (Bld) [#/Vol] 15.4 10*3/uL 4.4-11.0 [facility] Work Phone: Blood erythrocytes count (nu mber/volume)on 08-30-2021 RBC (Bld) [#/Vol] 4.32 10*6/uL 4.2-5.4 [facility] Work Phone: Blood hemoglobin measurement (mass/volume)on 08-30-2021 Hemoglobin (Bld) [Mass/Vol] 12.9 g/dL 12.0-15.0 [facility] Work Phone: Blood lymphocytes/100 leukoc yteson 08-30-2021 Lymphocytes/100 WBC (Bld) 18.0 % 19-41 [facility] Work Phone: Blood monocytes/100 leukocyt eson 08-30-2021 Monocytes/100 WBC (Bld) 7.5 % 0-10 [facility] Work Phone: Blood platelet mean volumeon 08-30-2021 Platelet mean volume (Bld) [Entitic vol] 10.7 fL 6.2-12.0 [facility] Work Phone: Determination of erythrocyte mean corpuscular volume (MCV)on 08-30-2021 MCV (RBC) [Entitic vol] 88.0 fL 81-99 [facility] Work Phone: Hematocrit Auto (Bld) [Volum e fraction]on 08-30-2021 Hematocrit (Bld) [Volume fraction] 38.0 % 37-47 [facility] Work Phone: Laboratory - Chemistry and C hemistry - challengeon 08-30-2021 CO2 [Moles/Vol] 26.0 mmol/L 21.0-32.0 [facility] Work Phone: Urea nitrogen/Creatinine [Mass ratio] 20.2 mg/mg 10-20 [facility] Work Phone: Laboratory - Hematology and Cell countson 08-30-2021 Erythrocyte distribution width (RBC) [Entitic vol] 46.1 fL 35.1-43.9 [facility] Work Phone: Erythrocyte distribution width (RBC) [Ratio] 14.4 % 11.6-14.6 [facility] Work Phone: Immature granulocytes/100 WBC (Bld) 1.800 % 0.0-0.9 [facility] Work Phone: Comment on above: IG% - Immature Granu locytes (promyelocytes, myelocytes and metamyelocytes) > 1% indicates that a LEFT SHIFT is Present. MCH (RBC) [Entitic mass] 29.9 pg 27.0-32.0 [facility] Work Phone: Nucleated RBC/100 WBC (Bld) [Ratio] 0 % 0-5 [facility] Work Phone: MCHC Auto (RBC) [Mass/Vol]on 08-30-2021 MCHC (RBC) [Mass/Vol] 33.9 g/dL 32-36 [facility] Work [facility]: No Panel Informationon 08-30 Estimated Creatinine Clearance Calc 27.76 ml/min [facility] Work Phone: Estimated GFR (MDRD) Amer 54 mL/min >60 [facility] Work Phone: Comment on above: GFR Calc Estimated GFR (MDRD) Non-Af Amer 44 mL/min >60 [facility] Work Phone: Comment on above: Non- GFR Calc Platelets bldon 08-30-2021 Platelets (Bld) [#/Vol] 236 10*3/uL 150-450 [facility] Work Phone: Serum or plasma calcium roger urement (mass/volume)on 08-30-2021 Calcium [Mass/Vol] 9.5 mg/dL 8.5-10.1 [facility] Work Phone: Serum or plasma creatinine m easurement (mass/volume)on 08-30-2021 Creatinine [Mass/Vol] 1.24 mg/dL 0.55-1.02 [facility] Work Phone: Comment on above: The validity of the calculated GFR & GFRAA in patients over 70 years has not been determined. Clinical correlation is essential. Serum or plasma urea nitroge n measurement (mass/volume)on 08-30-2021 Urea nitrogen [Mass/Vol] 25 mg/dL 7-18 [facility] Work Phone: Thin prep Papanicolaou smear with manual screeningon 08-30-2021 Thin prep Papanicolaou smear with manual screening 8 5-15 [facility] Work Phone: Absolute lymphocyte counton 08-19-2021 Lymphocytes Auto (Unsp spec) [#/Vol] 2.66 10*3/uL 0.83-4.51 [facility] Work Phone: Basophil percentageon 2021 Chloride [Moles/Vol] 108 mmol/L 98-107 [facility] Work Phone: Glucose [Mass/Vol] 86 mg/dL 74-106 [facility] Work Phone: Potassium [Moles/Vol] 3.6 mmol/L 3.5-5.1 [facility] Work Phone: Sodium [Moles/Vol] 137 mmol/L 136-145 [facility]: Basophils/100 WBC (Bld) 0.4 % 0-1 [facility] Work Phone: Eosinophils/100 WBC (Bld) 0.4 % 0-5 [facility] Work Phone: Neutrophils (Bld) [#/Vol] 6.8 10*3/uL 2.0-7.7 [facility] Work Phone: Neutrophils/100 WBC (Bld) 66.0 % 47-70 [facility] Work Phone: WBC (Bld) [#/Vol] 10.3 10*3/uL 4.4-11.0 [facility] Work [facility]: Blood erythrocytes count (nu mber/volume)on 08-19-2021 RBC (Bld) [#/Vol] 3.91 10*6/uL 4.2-5.4 [facility] Work Phone: Blood hemoglobin measurement (mass/volume)on 08-19-2021 Hemoglobin (Bld) [Mass/Vol] 11.3 g/dL 12.0-15.0 [facility] Work Phone: Blood lymphocytes/100 leukoc yteson 08-19-2021 Lymphocytes/100 WBC (Bld) 25.9 % 19-41 [facility] Work Phone: Blood monocytes/100 leukocyt eson 08-19-2021 Monocytes/100 WBC (Bld) 6.9 % 0-10 [facility] Work Phone: Blood platelet mean volumeon 08-19-2021 Platelet mean volume (Bld) [Entitic vol] 11.1 fL 6.2-12.0 [facility] Work Phone: Determination of erythrocyte mean corpuscular volume (MCV)on 08-19-2021 MCV (RBC) [Entitic vol] 85.9 fL 81-99 [facility] Work Phone: Glucose Glucometer (BldC) [M ass/Vol]on 08-19-2021 Glucose [Mass/Vol] 252 mg/dL 74-106 [facility] Work Phone: Comment on above: MANAGEMENT OF PATIEN T CARE PER NURSING PROTOCOL Hematocrit Auto (Bld) [Volum e fraction]on 08-19-2021 Hematocrit (Bld) [Volume fraction] 33.6 % 37-47 [facility] Work Phone: Laboratory - Chemistry and C hemistry - challengeon 08-19-2021 CO2 [Moles/Vol] 23.0 mmol/L 21.0-32.0 [facility] Work Phone: Urea nitrogen/Creatinine [Mass ratio] 24.0 mg/mg 10-20 [facility] Work Phone: Laboratory - Hematology and Cell countson 08-19-2021 Erythrocyte distribution width (RBC) [Entitic vol] 44.3 fL 35.1-43.9 [facility] Work Phone: Erythrocyte distribution width (RBC) [Ratio] 14.1 % 11.6-14.6 [facility] Work Phone: Immature granulocytes/100 WBC (Bld) 0.400 % 0.0-0.9 [facility] Work Phone: Comment on above: IG% - Immature Granu locytes (promyelocytes, myelocytes and metamyelocytes) > 1% indicates that a LEFT SHIFT is Present. MCH (RBC) [Entitic mass] 28.9 pg 27.0-32.0 [facility] Work Phone: Nucleated RBC/100 WBC (Bld) [Ratio] 0 % 0-5 [facility] Work Phone: MCHC Auto (RBC) [Mass/Vol]on 08-19-2021 MCHC (RBC) [Mass/Vol] 33.6 g/dL 32-36 [facility] Work Phone: No Panel Informationon 08-19 Estimated Creatinine Clearance Calc 34.42 ml/min [facility] Work Phone: Estimated GFR (MDRD) Amer 102 mL/min >60 [facility] Work Phone: Comment on above: GFR Calc Estimated GFR (MDRD) Non-Af Amer 84 mL/min >60 [facility] Work Phone: Comment on above: Non- GFR Calc Platelets bldon 08-19-2021 Platelets (Bld) [#/Vol] 160 10*3/uL 150-450 [facility] Work Phone: Serum or plasma calcium roger urement (mass/volume)on 08-19-2021 Calcium [Mass/Vol] 8.3 mg/dL 8.5-10.1 [facility] Work Phone: Serum or plasma creatinine m easurement (mass/volume)on 08-19-2021 Creatinine [Mass/Vol] 0.71 mg/dL 0.55-1.02 [facility] Work Phone: Comment on above: The validity of the calculated GFR & GFRAA in patients over 70 years has not been determined. Clinical correlation is essential. Serum or plasma urea nitroge n measurement (mass/volume)on 08-19-2021 Urea nitrogen [Mass/Vol] 17 mg/dL 7-18 [facility] Work Phone: Thin prep Papanicolaou smear with manual screeningon 08-19-2021 Thin prep Papanicolaou smear with manual screening 6 5-15 [facility] Work Phone: Absolute lymphocyte counton 08-18-2021 Lymphocytes Auto (Unsp spec) [#/Vol] 2.55 10*3/uL 0.83-4.51 [facility] Work Phone: Basophil percentageon 2021 Chloride [Moles/Vol] 103 mmol/L 98-107 [facility] Work Phone: Glucose [Mass/Vol] 314 mg/dL 74-106 [facility] Work Phone: Comment on above: Glucose result great er than or equal to 200 mg/dLsuggests DIABETES MELLITUS per A.D.A. criteria. Potassium [Moles/Vol] 6.1 mmol/L 3.5-5.1 [facility] Work Phone: Comment on above: Slight Hemolysis, Re sult may be falsely increased. Critical Result(s) Called at: 20:20:17 08/18/2021 by: Porsha mckenzie TO [facility]. Results read back by same. Sodium [Moles/Vol] 133 mmol/L 136-145 [facility] Work Phone: Basophil percentage 0 SEEN /hpf [facility] Work Phone: Basophils/100 WBC (Bld) 0.3 % 0-1 [facility] Work Phone: Bilirubin [Mass/Vol] 0.90 mg/dL 0.20-1.00 [facility] Work Phone: Comment on above: For patients on eltr ombopag therapy, use of Dimension [place] TBIL is not recommended. Eosinophils/100 WBC (Bld) 0.0 % 0-5 [facility] Work Phone: Neutrophils (Bld) [#/Vol] 9.2 10*3/uL 2.0-7.7 [facility] Work Phone: Neutrophils/100 WBC (Bld) 74.2 % 47-70 [facility] Work Phone: Protein [Mass/Vol] 7.7 g/dL 6.4-8.2 [facility] Work Phone: WBC (Bld) [#/Vol] 12.4 10*3/uL 4.4-11.0 [facility] Work Phone: Bilirubin Test strip Ql (U)o n 08-18-2021 Bilirubin Ql (U) Negative Negative [facility] Work Phone: Blood erythrocytes count (nu mber/volume)on 08-18-2021 RBC (Bld) [#/Vol] 4.91 10*6/uL 4.2-5.4 [facility] Work Phone: Blood hemoglobin measurement (mass/volume)on 08-18-2021 Hemoglobin (Bld) [Mass/Vol] 14.3 g/dL 12.0-15.0 [facility] Work Phone: Blood lymphocytes/100 leukoc yteson 08-18-2021 Lymphocytes/100 WBC (Bld) 20.6 % 19-41 [facility] Work Phone: Blood monocytes/100 leukocyt eson 08-18-2021 Monocytes/100 WBC (Bld) 4.1 % 0-10 [facility] Work Phone: Blood platelet mean volumeon 08-18-2021 Platelet mean volume (Bld) [Entitic vol] 10.9 fL 6.2-12.0 [facility] Work Phone: Determination of erythrocyte mean corpuscular volume (MCV)on 08-18-2021 MCV (RBC) [Entitic vol] 86.4 fL 81-99 [facility] Work Phone: Glucose Glucometer (BldC) [M ass/Vol]on 08-18-2021 Glucose [Mass/Vol] 276 mg/dL 74-106 [facility] Work Phone: Comment on above: MANAGEMENT OF PATIEN T CARE PER NURSING PROTOCOL HCO3 (BldA) [Moles/Vol]on HCO3 (Bld) [Moles/Vol] 19 mmol/L 22-26 [facility] Work Phone: Hematocrit Auto (Bld) [Volum e fraction]on 08-18-2021 Hematocrit (Bld) [Volume fraction] 42.4 % 37-47 [facility] Work Phone: Hyaline casts LM.LPF (Urine sed) [#/Area]on 08-18-2021 Hyaline casts (Urine sed) [#/Area] 5 /[LPF] [facility] Work Phone: Ketones Test strip Ql (U)on 08-18-2021 Ketones Ql (U) 150 mg/dl Negative [facility] Work Phone: Comment on above: CRITICAL VALUE *HCRI TICAL VALUE VERIFIED. CALLED TO [id number] Porshaadia Mckenzie.RESULTS READ BACK BY SAME . Laboratory - Chemistry and C hemistry - challengeon 08-18-2021 CO2 [Moles/Vol] 19.0 mmol/L 21.0-32.0 [facility] Work Phone: Urea nitrogen/Creatinine [Mass ratio] 22.8 mg/mg 10-20 [facility] Work Phone: CO2 [Moles/Vol] 20 mmol/L 23-33 [facility] Work Phone: ALP [Catalytic activity/Vol] 105 U/L 45-117 [facility] Work Phone: ALT [Catalytic activity/Vol] 13 U/L 13-56 [facility] Work Phone: Globulin (S) [Mass/Vol] 3.7 g/dL 2.2-4.2 [facility] Work Phone: Laboratory - Hematology and Cell countson 08-18-2021 Erythrocyte distribution width (RBC) [Entitic vol] 43.5 fL 35.1-43.9 [facility] Work Phone: Erythrocyte distribution width (RBC) [Ratio] 13.7 % 11.6-14.6 [facility] Work Phone: Immature granulocytes/100 WBC (Bld) 0.800 % 0.0-0.9 [facility] Work Phone: Comment on above: IG% - Immature Granu locytes (promyelocytes, myelocytes and metamyelocytes) > 1% indicates that a LEFT SHIFT is Present. MCH (RBC) [Entitic mass] 29.1 pg 27.0-32.0 [facility] Work Phone: Nucleated RBC/100 WBC (Bld) [Ratio] 0 % 0-5 [facility] Work Phone: MCHC Auto (RBC) [Mass/Vol]on 08-18-2021 MCHC (RBC) [Mass/Vol] 33.7 g/dL 32-36 [facility] Work Phone: Mucus LM Ql (Urine sed)on Mucus Ql (Urine sed) 0 SEEN /hpf [facility] Work Phone: Nitrite Test strip Ql (U)on 08-18-2021 Nitrite Ql (U) Negative Negative [facility] Work Phone: No Panel Informationon 08-18 Estimated Creatinine Clearance Calc 28.41 ml/min [facility] Work Phone: Estimated GFR (MDRD) Amer 52 mL/min >60 [facility] Work Phone: Comment on above: GFR Calc Estimated GFR (MDRD) Non-Af Amer 43 mL/min >60 [facility] Work Phone: Comment on above: Non- GFR Calc Bed Mix Venous Bld PCO2 at Pat Temp 42.1 mmHg 41-51 [facility] Work Phone: Blood Gas Specimen Type CATHY [facility] Work Phone: Venous Blood Base Excess -8 mmol/L -1.0-3.5 [facility] Work Phone: PO2 venouson 08-18-2021 Oxygen (BldV) [Partial pressure] 22 mm[Hg] 25-40 [facility] Work Phone: Platelets bldon 08-18-2021 Platelets (Bld) [#/Vol] 229 10*3/uL 150-450 [facility] Work Phone: Protein Test strip Ql (U)on 08-18-2021 Protein Ql (U) 30 mg/dl Negative [facility] Work Phone: Serum or plasma acetone roger urement (mass/volume)on 08-18-2021 Acetone [Mass/Vol] MODERATE NEG [facility] Work Phone: Serum or plasma albumin roger urement (mass/volume)on 08-18-2021 Albumin [Mass/Vol] 4.0 g/dL 3.2-5.0 [facility] Work Phone: Serum or plasma albumin/glob ulin mass ratioon 08-18-2021 Albumin/Globulin [Mass ratio] 1.1 {ratio} 0.9-2.4 [facility] Work Phone: Serum or plasma calcium roger urement (mass/volume)on 08-18-2021 Calcium [Mass/Vol] 9.3 mg/dL 8.5-10.1 [facility] Work Phone: Serum or plasma creatinine m easurement (mass/volume)on 08-18-2021 Creatinine [Mass/Vol] 1.27 mg/dL 0.55-1.02 [facility] Work Phone: Comment on above: The validity of the calculated GFR & GFRAA in patients over 70 years has not been determined. Clinical correlation is essential. Serum or plasma urea nitroge n measurement (mass/volume)on 08-18-2021 Urea nitrogen [Mass/Vol] 29 mg/dL 7-18 [facility] Work Phone: Squamous epithelial cells de tection in urine sediment by light microscopyon 08-18-2021 Epithelial cells.squamous LM Ql (Urine sed) 0 SEEN /hpf [facility] Work Phone: Thin prep Papanicolaou smear with manual screeningon 08-18-2021 Thin prep Papanicolaou smear with manual screening 11 5-15 [facility] Work Phone: Thin prep Papanicolaou smear with manual screening 10 U/L 15-37 [facility] Work Phone: Urine blood detectionon 04-0 RBC Ql (U) Negative Negative [facility] Work Phone: RBC Ql (U) 0 SEEN /hpf [facility] Work Phone: Urine clarityon 08-18-2021 Clarity (U) Clear Clear [facility] Work Phone: Urine color determinationon 08-18-2021 Color (U) Yellow Yellow [facility] Work Phone: Urine glucose detectionon Glucose Ql (U) 1000 mg/dl Normal [facility] Work Phone: Urine leukocyte esterase det ection by dipstickon 08-18-2021 Leukocyte esterase Test strip Ql (U) Negative Negative [facility] Work Phone: Urine pHon 08-18-2021 pH (U) 5.0 [pH] [facility] Work Phone: Urine sediment bacteria coun t by microscopy (number/high power field)on 08-18-2021 Bacteria LM.HPF (Urine sed) [#/Area] 0 /[HPF] None Seen [facility] Work Phone: Urine specific gravity measu rementon 08-18-2021 Specific gravity (U) [Rel density] 1.025 [facility] Work Phone: Urobilinogen Auto test strip Ql (U)on 08-18-2021 Urobilinogen Ql (U) Normal mg/dl Normal [facility] Work Phone: Vital signson 08-18-2021 Oxygen saturation in Blood 30 % 50-70 [facility] Work Phone: Whole blood hemoglobin A1c/t otal hemoglobin ratio (mass fraction)on 08-18-2021 HbA1c (Bld) [Mass fraction] 9.4 % 3.8-5.6 [facility] Work Phone: Comment on above: Normal < 5.7 % Predi abetic 5.7 - 6.4 % Diabetic >or= 6.5 % Please note range changes. pH measurementon 08-18-2021 pH (Unsp spec) 7.26 [pH] 7.32-7.42 [facility] Work Phone: Influenza virus A and B and SARS-CoV-2 (COVID-19) Ag panel - Upper respiratory specim SARS-CoV-2 (COVID-19) RNA SHABANA+probe Ql (Resp) [facility] Work Phone: Vital Signs Date Time Vital Sign Value Performing Clinician Faci lity 01-08-2025 07:50-0400 Body height 160.[address] Rg Menchaca MD Work Phone: [facility] 01-08-2025 07:50-0400 Body mass index (BMI) [Ratio] 25.4 kg/m2 Dr. Rg Menchaca MD Work Phone: [facility] 01-08-2025 07:50-0400 Body temperature 97.1 [degF] Dr. Rg Menchaca MD Work Phone: [facility] 01-08-2025 07:50-0400 Body weight 65.[address] Rg Menchaca MD Work Phone: [facility] 01-08-2025 07:50-0400 Diastolic blood pressure 70 mm[Hg] Dr. Rg Menchaca MD Work Phone: [facility] 01-08-2025 07:50-0400 Heart rate 71 /min Dr. Rg Menchaca MD Work Phone: [phone] [place] [address] 01-08-2025 07:50-0400 Respiratory rate 16 /min Dr. Rg Menchaca MD Work Phone: [facility] 01-08-2025 07:50-0400 SaO2% (BldA) [Mass fraction] 96 % Dr. Rg Menchaca MD Work Phone: [facility] 01-08-2025 07:50-0400 Systolic blood pressure 122 mm[Hg] Dr. Rg Menchaca MD Work Phone: [facility] 01-07-2025 07:50-0400 Body height 160.[address] Rg Menchaca MD Work Phone: [facility] 01-07-2025 07:50-0400 Body mass index (BMI) [Ratio] 25.3 kg/m2 Dr. Rg Menchaca MD Work Phone: [facility] 01-07-2025 07:50-0400 Body temperature 96.7 [degF] Dr. Rg Menchaca MD Work Phone: [phone] [place] [address] 01-07-2025 07:50-0400 Body weight 64.[address] Rg Menchaca MD Work Phone: [phone] [place] [address] 01-07-2025 07:50-0400 Diastolic blood pressure 77 mm[Hg] Dr. Rg Menchaca MD Work Phone: [phone] [place] [address] 01-07-2025 07:50-0400 Heart rate 77 /min Dr. Rg Menchaca MD Work Phone: [phone] [place] [address] 01-07-2025 07:50-0400 Respiratory rate 16 /min Dr. Rg Menchaca MD Work Phone: [phone] [place] [address] 01-07-2025 07:50-0400 SaO2% (BldA) [Mass fraction] 95 % Dr. Rg Menchaca MD Work Phone: [phone] [place] [address] 01-07-2025 07:50-0400 Systolic blood pressure 92 mm[Hg] Dr. Rg Menchaca MD Work Phone: [phone] [place] [address] 01-06-2025 08:15-0400 Body height 160.[address] Rg Menchaca MD Work Phone: 9(657)213-728598 [place] [address] 01-06-2025 08:15-0400 Body mass index (BMI) [Ratio] 25.3 kg/m2 Dr. Rg Menchaca MD Work Phone: 7(629)900-528498 [place] [address] 01-06-2025 08:15-0400 Body temperature 96.9 [degF] Dr. Rg Menchaca MD Work Phone: 5(376)455-904898 [place] [address] 01-06-2025 08:15-0400 Body weight 64.[address] Rg Menchaca MD Work Phone: 5(290)384-214298 [place] [address] 01-06-2025 08:15-0400 Diastolic blood pressure 87 mm[Hg] Dr. Rg Menchaca MD Work Phone: 0(550)868-525798 [place] [address] 01-06-2025 08:15-0400 Heart rate 69 /min Dr. Rg Menchaca MD Work Phone: [facility] 01-06-2025 08:15-0400 Respiratory rate 16 /min Dr. Rg Menchaca MD Work Phone: [facility] 01-06-2025 08:15-0400 SaO2% (BldA) [Mass fraction] 98 % Dr. Rg Menchaca MD Work Phone: [facility] 01-06-2025 08:15-0400 Systolic blood pressure 128 mm[Hg] Dr. Rg Menchaca MD Work Phone: [facility] 12-03-2024 08:37-0400 Body height 160.[address] Rg Menchaca MD Work Phone: [facility] 12-03-2024 08:37-0400 Body temperature 96.3 [degF] Dr. Rg Menchaca MD Work Phone: 9(833)750-665544 [address] 12-03-2024 08:37-0400 Diastolic blood pressure 66 mm[Hg] Dr. Rg Menchaca MD Work Phone: [facility] 12-03-2024 08:37-0400 Heart rate 67 /min Dr. Rg Menchaca MD Work Phone: [facility] 12-03-2024 08:37-0400 Respiratory rate 16 /min Dr. Rg Menchaca MD Work Phone: [facility] 12-03-2024 08:37-0400 SaO2% (BldA) [Mass fraction] 97 % Dr. Rg Menchaca MD Work Phone: [facility] 12-03-2024 08:37-0400 Systolic blood pressure 94 mm[Hg] Dr. Rg Menchaca MD Work Phone: [facility] 12-02-2024 08:08-0400 Body height 160.[address] Rg Menchaca MD Work Phone: [facility] 12-02-2024 08:08-0400 Body mass index (BMI) [Ratio] 24.3 kg/m2 Dr. Rg Menchaca MD Work Phone: 5(753)362-790327 [place] [address] 12-02-2024 08:08-0400 Body temperature 96.4 [degF] Dr. Rg Menchaca MD Work Phone: 9(493)004-511798 [place] [address] 12-02-2024 08:08-0400 Body weight 62.[address] Rg Menchaca MD Work Phone: 8(578)729-759498 [place] [address] 12-02-2024 08:08-0400 Diastolic blood pressure 67 mm[Hg] Dr. Rg Menchaca MD Work Phone: 9(361)226-213698 [place] [address] 12-02-2024 08:08-0400 Heart rate 82 /min Dr. Rg Menchaca MD Work Phone: 6(139)011-197298 [place] [address] 12-02-2024 08:08-0400 Respiratory rate 16 /min Dr. Rg Menchaca MD Work Phone: 6(052)106-645398 [place] [address] 12-02-2024 08:08-0400 SaO2% (BldA) [Mass fraction] 96 % Dr. Rg Menchaca MD Work Phone: 1(260)386-490298 [place] [address] 12-02-2024 08:08-0400 Systolic blood pressure 110 mm[Hg] Dr. Rg Menchaca MD Work Phone: 1(034)438-313798 [place] [address] 12-01-2024 08:09-0400 Body height 160.[address] Rg Menchaca MD Work Phone: 2(143)540-053698 [place] [address] 12-01-2024 08:09-0400 Body mass index (BMI) [Ratio] 24.3 kg/m2 Dr. Rg Menchaca MD Work Phone: 9(753)835-028198 [place] [address] 12-01-2024 08:09-0400 Body temperature 96.7 [degF] Dr. Rg Menchaca MD Work Phone: 8(587)112-496398 [place] [address] 12-01-2024 08:09-0400 Body weight 62.[address] Rg Menchaca MD Work Phone: 4(521)411-328298 [place] [address] 12-01-2024 08:09-0400 Diastolic blood pressure 75 mm[Hg] Dr. Rg Menchaca MD Work Phone: 8(160)120-216698 [place] [address] 12-01-2024 08:09-0400 Heart rate 78 /min Dr. Rg Menchaca MD Work Phone: [facility] 12-01-2024 08:09-0400 Respiratory rate 16 /min Dr. Rg Menchaca MD Work Phone: [facility] 12-01-2024 08:09-0400 SaO2% (BldA) [Mass fraction] 95 % Dr. Rg Menchaca MD Work Phone: [facility] 12-01-2024 08:09-0400 Systolic blood pressure 90 mm[Hg] Dr. Rg Menchaca MD Work Phone: [facility] 11-11-2024 12:42-0400 Diastolic blood pressure 67 mm[Hg] Windy Yuen MD Work Phone: [facility] 11-11-2024 12:42-0400 Heart rate 74 /min Windy Yuen MD Work Phone: [facility] 11-11-2024 12:42-0400 SaO2% (BldA) [Mass fraction] 96 % Windy Yuen MD Work Phone: [facility] 11-11-2024 12:42-0400 Systolic blood pressure 108 mm[Hg] Windy Yuen MD Work Phone: [facility] 11-05-2024 08:15-0400 Body height 160.[address] Rg Menchaca MD Work Phone: [facility] 11-05-2024 08:15-0400 Body mass index (BMI) [Ratio] 24.4 kg/m2 Dr. Rg Menchaca MD Work Phone: [facility] 11-05-2024 08:15-0400 Body temperature 96.5 [degF] Dr. Rg Menchaca MD Work Phone: [facility] 11-05-2024 08:15-0400 Body weight 62.[address] Rg Menchaca MD Work Phone: [facility] 11-05-2024 08:15-0400 Diastolic blood pressure 64 mm[Hg] Dr. Rg Menchaca MD Work Phone: [facility] 11-05-2024 08:15-0400 Heart rate 74 /min Dr. Rg Menchaca MD Work Phone: 5(265)843-336298 [place] [address] 11-05-2024 08:15-0400 Respiratory rate 16 /min Dr. Rg Menchaca MD Work Phone: 8(736)699-191398 [place] [address] 11-05-2024 08:15-0400 SaO2% (BldA) [Mass fraction] 95 % Dr. Rg Menchaca MD Work Phone: 8(409)170-108698 [place] [address] 11-05-2024 08:15-0400 Systolic blood pressure 142 mm[Hg] Dr. Rg Menchaca MD Work Phone: 0(965)300-103298 [place] [address] 11-04-2024 07:55-0400 Body height 160.[address] Rg Menchaca MD Work Phone: 2(564)260-112598 [place] [address] 11-04-2024 07:55-0400 Body mass index (BMI) [Ratio] 24.4 kg/m2 Dr. Rg Menchaca MD Work Phone: 5(443)492-797198 [place] [address] 11-04-2024 07:55-0400 Body temperature 96.2 [degF] Dr. Rg Menchaca MD Work Phone: 0(045)338-768998 [place] [address] 11-04-2024 07:55-0400 Body weight 62.[address] Rg Menchaca MD Work Phone: 9(959)449-017698 [place] [address] 11-04-2024 07:55-0400 Diastolic blood pressure 70 mm[Hg] Dr. Rg Menchaca MD Work Phone: 2(737)998-058598 [place] [address] 11-04-2024 07:55-0400 Heart rate 74 /min Dr. Rg Menchaca MD Work Phone: 2(735)218-786427 [place] [address] 11-04-2024 07:55-0400 Respiratory rate 16 /min Dr. Rg Menchaca MD Work Phone: 2(922)303-512527 [place] [address] 11-04-2024 07:55-0400 SaO2% (BldA) [Mass fraction] 94 % Dr. Rg Menchaca MD Work Phone: 1(253)424-644627 [place] [address] 11-04-2024 07:55-0400 Systolic blood pressure 118 mm[Hg] Dr. Rg Menchaca MD Work Phone: 4(573)731-000698 [place] [address] 11-03-2024 08:09-0400 Body height 160.[address] Rg Menchaca MD Work Phone: 1(911)955-883498 [place] [address] 11-03-2024 08:09-0400 Body mass index (BMI) [Ratio] 24.4 kg/m2 Dr. Rg Menchaca MD Work Phone: 1(323)060-206698 [place] [address] 11-03-2024 08:09-0400 Body temperature 97.5 [degF] Dr. Rg Menchaca MD Work Phone: 7(933)585-126998 [place] [address] 11-03-2024 08:09-0400 Body weight 62.[address] Rg Menchaca MD Work Phone: 5(565)627-200498 [place] [address] 11-03-2024 08:09-0400 Diastolic blood pressure 68 mm[Hg] Dr. Rg Menchaca MD Work Phone: 1(008)327-362798 [place] [address] 11-03-2024 08:09-0400 Heart rate 86 /min Dr. Rg Menchaca MD Work Phone: 8(454)947-192798 [place] [address] 11-03-2024 08:09-0400 Respiratory rate 16 /min Dr. Rg Menchaca MD Work Phone: 7(678)565-104698 [place] [address] 11-03-2024 08:09-0400 Systolic blood pressure 116 mm[Hg] Dr. Rg Menchaca MD Work Phone: 6(276)025-524398 [place] [address] 10-08-2024 08:55-0400 Body temperature 97.1 [degF] Dr. Rg Menchaca MD Work Phone: 1(372)003-877598 [place] [address] 10-08-2024 08:55-0400 Diastolic blood pressure 71 mm[Hg] Dr. Rg Menchaca MD Work Phone: 5(144)139-740698 [place] [address] 10-08-2024 08:55-0400 Heart rate 68 /min Dr. Rg Menchaca MD Work Phone: [facility] 10-08-2024 08:55-0400 Respiratory rate 16 /min Dr. Rg Menchaca MD Work Phone: [facility] 10-08-2024 08:55-0400 SaO2% (BldA) [Mass fraction] 94 % Dr. Rg Menchaca MD Work Phone: [facility] 10-08-2024 08:55-0400 Systolic blood pressure 116 mm[Hg] Dr. Rg Menchaca MD Work Phone: 6(545)750-405844 [address] 10-07-2024 08:31-0400 Body height 160.[address] Rg Menchaca MD Work Phone: 9(846)558-738698 [place] [address] 10-07-2024 08:31-0400 Body mass index (BMI) [Ratio] 23.3 kg/m2 Dr. Rg Menchaca MD Work Phone: 4(286)693-537644 [address] 10-07-2024 08:31-0400 Body temperature 97.2 [degF] Dr. Rg Menchaca MD Work Phone: 8(584)114-277944 [address] 10-07-2024 08:31-0400 Body weight 59.[address] Rg Menchaca MD Work Phone: 5(799)515-239844 [address] 10-07-2024 08:31-0400 Diastolic blood pressure 63 mm[Hg] Dr. Rg Menchaca MD Work Phone: 0(416)046-538427 [place] [address] 10-07-2024 08:31-0400 Heart rate 72 /min Dr. Rg Menchaca MD Work Phone: [facility] 10-07-2024 08:31-0400 Respiratory rate 14 /min Dr. Rg Menchaca MD Work Phone: [facility] 10-07-2024 08:31-0400 SaO2% (BldA) [Mass fraction] 96 % Dr. Rg Menchaca MD Work Phone: [facility] 10-07-2024 08:31-0400 Systolic blood pressure 112 mm[Hg] Dr. Rg Menchaca MD Work Phone: [facility] 10-06-2024 08:06-0400 Body height 160.[address] Rg Menchaca MD Work Phone: 5(079)668-650098 [place] [address] 10-06-2024 08:06-0400 Body mass index (BMI) [Ratio] 24.4 kg/m2 Dr. Rg Menchaca MD Work Phone: 4(078)360-245198 [place] [address] 10-06-2024 08:06-0400 Body temperature 97.4 [degF] Dr. Rg Menchaca MD Work Phone: 4(262)625-937898 [place] [address] 10-06-2024 08:06-0400 Body weight 62.[address] Rg Menchaca MD Work Phone: 5(964)130-760298 [place] [address] 10-06-2024 08:06-0400 Diastolic blood pressure 59 mm[Hg] Dr. Rg Menchaca MD Work Phone: 3(204)038-541098 [place] [address] 10-06-2024 08:06-0400 Heart rate 73 /min Dr. Rg Menchaca MD Work Phone: 8(794)350-909998 [place] [address] 10-06-2024 08:06-0400 Respiratory rate 16 /min Dr. Rg Menchaca MD Work Phone: 9(326)094-431098 [place] [address] 10-06-2024 08:06-0400 SaO2% (BldA) [Mass fraction] 92 % Dr. Rg Menchaca MD Work Phone: 2(516)528-176298 [place] [address] 10-06-2024 08:06-0400 Systolic blood pressure 102 mm[Hg] Dr. Rg Menchaca MD Work Phone: 6(824)289-479598 [place] [address] 09-10-2024 08:20-0400 Body height 160.[address] Rg Menchaca MD Work Phone: 0(708)895-996198 [place] [address] 09-10-2024 08:20-0400 Body mass index (BMI) [Ratio] 24.7 kg/m2 Dr. Rg Menchaca MD Work Phone: 5(534)504-060698 [place] [address] 09-10-2024 08:20-0400 Body temperature 96.8 [degF] Dr. Rg Menchaca MD Work Phone: [facility] 09-10-2024 08:20-0400 Body weight 63.[address] Rg Menchaca MD Work Phone: 9(412)265-010998 [place] [address] 09-10-2024 08:20-0400 Diastolic blood pressure 75 mm[Hg] Dr. Rg Menchaca MD Work Phone: 4(351)067-002698 [place] [address] 09-10-2024 08:20-0400 Heart rate 78 /min Dr. Rg Menchaca MD Work Phone: 3(163)746-977898 [place] [address] 09-10-2024 08:20-0400 Respiratory rate 16 /min Dr. Rg Menchaca MD Work Phone: 9(485)436-172198 [place] [address] 09-10-2024 08:20-0400 SaO2% (BldA) [Mass fraction] 95 % Dr. Rg Menchaca MD Work Phone: 8(410)465-009898 [place] [address] 09-10-2024 08:20-0400 Systolic blood pressure 135 mm[Hg] Dr. Rg Menchaca MD Work Phone: 4(037)778-251898 [place] [address] 09-09-2024 12:17-0400 Body temperature 96 [degF] Dr. Rg Menchaca MD Work Phone: 6(239)411-872198 [place] [address] 09-09-2024 12:17-0400 Diastolic blood pressure 76 mm[Hg] Dr. Rg Menchaca MD Work Phone: 4(447)442-030398 [place] [address] 09-09-2024 12:17-0400 Heart rate 68 /min Dr. Rg Menchaca MD Work Phone: 4(846)171-464798 [place] [address] 09-09-2024 12:17-0400 Respiratory rate 16 /min Dr. Rg Menchaca MD Work Phone: 9(804)897-091298 [place] [address] 09-09-2024 12:17-0400 Systolic blood pressure 117 mm[Hg] Dr. Rg Menchaca MD Work Phone: 4(091)833-348398 [place] [address] 09-09-2024 08:09-0400 Body height 160.[address] Rg Menchaca MD Work Phone: [facility] 09-09-2024 08:09-0400 Body mass index (BMI) [Ratio] 24.7 kg/m2 Dr. Rg Menchaca MD Work Phone: [facility] 09-09-2024 08:09-0400 Body weight 63.[address] Rg Menchaca MD Work Phone: 2(720)453-771344 [address] 09-09-2024 08:09-0400 SaO2% (BldA) [Mass fraction] 94 % Dr. Rg Menchaca MD Work Phone: 5(701)917-616798 [place] [address] 09-08-2024 08:33-0400 Body mass index (BMI) [Ratio] 24.7 kg/m2 Dr. Rg Menchaca MD Work Phone: 5(135)727-766598 [place] [address] 09-08-2024 08:33-0400 Body temperature 96.5 [degF] Dr. Rg Menchaca MD Work Phone: 1(229)666-776198 [place] [address] 09-08-2024 08:33-0400 Body weight 63.[address] Rg Menchaca MD Work Phone: 6(469)618-508998 [place] [address] 09-08-2024 08:33-0400 Diastolic blood pressure 75 mm[Hg] Dr. Rg Menchaca MD Work Phone: 1(596)951-335798 [place] [address] 09-08-2024 08:33-0400 Heart rate 80 /min Dr. Rg Menchaca MD Work Phone: 6(856)071-324498 [place] [address] 09-08-2024 08:33-0400 Respiratory rate 16 /min Dr. Rg Menchaca MD Work Phone: 3(472)911-266344 [address] 09-08-2024 08:33-0400 SaO2% (BldA) [Mass fraction] 93 % Dr. Rg Menchaca MD Work Phone: 3(767)644-849427 [place] [address] 09-08-2024 08:33-0400 Systolic blood pressure 126 mm[Hg] Dr. Rg Menchaca MD Work Phone: 2(165)144-265598 [place] [address] 08-13-2024 10:15-0400 Body height 160.[address] Rg Menchaca MD Work Phone: [facility] 08-13-2024 10:15-0400 Body mass index (BMI) [Ratio] 24.9 kg/m2 Dr. Rg Menchaca MD Work Phone: [facility] 08-13-2024 10:15-0400 Body temperature 96.6 [degF] Dr. Rg Menchaca MD Work Phone: 4(143)621-184098 [place] [address] 08-13-2024 10:15-0400 Body weight 63.[address] Rg Menchaca MD Work Phone: 1(325)233-028498 [place] [address] 08-13-2024 10:15-0400 Diastolic blood pressure 72 mm[Hg] Dr. Rg Menchaca MD Work Phone: 7(285)726-768098 [place] [address] 08-13-2024 10:15-0400 Heart rate 73 /min Dr. Rg Menchaca MD Work Phone: 2(763)136-770698 [place] [address] 08-13-2024 10:15-0400 Respiratory rate 16 /min Dr. Rg Menhcaca MD Work Phone: 8(521)320-066198 [place] [address] 08-13-2024 10:15-0400 SaO2% (BldA) [Mass fraction] 95 % Dr. Rg Menchaca MD Work Phone: 9(962)747-986498 [place] [address] 08-13-2024 10:15-0400 Systolic blood pressure 121 mm[Hg] Dr. Rg Menchaca MD Work Phone: 0(273)194-546798 [place] [address] 08-12-2024 08:09-0400 Body height 160.[address] Rg Menchaca MD Work Phone: 6(590)782-863344 [address] 08-12-2024 08:09-0400 Body mass index (BMI) [Ratio] 24.9 kg/m2 Dr. Rg Menchaca MD Work Phone: 4(956)976-349598 [place] [address] 08-12-2024 08:09-0400 Body temperature 96.8 [degF] Dr. Rg Menchaca MD Work Phone: 0(033)383-174298 [place] [address] 08-12-2024 08:09-0400 Body weight 63.[address] Rg Menchaca MD Work Phone: [facility] 08-12-2024 08:09-0400 Diastolic blood pressure 59 mm[Hg] Dr. Rg Menchaca MD Work Phone: [facility] 08-12-2024 08:09-0400 Heart rate 79 /min Dr. Rg Menchaca MD Work Phone: 2(242)956-717644 [address] 08-12-2024 08:09-0400 Respiratory rate 16 /min Dr. Rg Menchaca MD Work Phone: 6(635)769-639744 [address] 08-12-2024 08:09-0400 SaO2% (BldA) [Mass fraction] 95 % Dr. Rg Menchaca MD Work Phone: 8(064)025-397298 [place] [address] 08-12-2024 08:09-0400 Systolic blood pressure 104 mm[Hg] Dr. Rg Menchaca MD Work Phone: 9(712)508-038998 [place] [address] 08-11-2024 08:01-0400 Body height 160.[address] Rg Menchaca MD Work Phone: 8(746)461-816644 [address] 08-11-2024 08:01-0400 Body mass index (BMI) [Ratio] 24.9 kg/m2 Dr. Rg Menchaca MD Work Phone: 1(961)663-605598 [place] [address] 08-11-2024 08:01-0400 Body temperature 96.8 [degF] Dr. Rg Menchaca MD Work Phone: 1(273)558-526298 [place] [address] 08-11-2024 08:01-0400 Body weight 63.[address] Rg Menchaca MD Work Phone: [facility] 08-11-2024 08:01-0400 Diastolic blood pressure 73 mm[Hg] Dr. Rg Menchaca MD Work Phone: 2(928)760-494144 [address] 08-11-2024 08:01-0400 Heart rate 83 /min Dr. Rg Menchaca MD Work Phone: 1(756)153-583827 [place] [address] 08-11-2024 08:01-0400 Respiratory rate 16 /min Dr. Rg Menchaca MD Work Phone: 0(890)618-626127 [place] [address] 08-11-2024 08:01-0400 SaO2% (BldA) [Mass fraction] 94 % Dr. Rg Menchaca MD Work Phone: 1(779)128-196027 [place] [address] 08-11-2024 08:01-0400 Systolic blood pressure 116 mm[Hg] Dr. Rg Menchaca MD Work Phone: 8(715)846-860698 [place] [address] 07-16-2024 08:39-0500 Body mass index (BMI) [Ratio] 24.3 kg/m2 Dr. Rg Menchaca MD Work Phone: 0(874)233-650498 [place] [address] 07-16-2024 08:39-0500 Body temperature 96.6 [degF] Dr. Rg Menchaca MD Work Phone: 1(552)593-036398 [place] [address] 07-16-2024 08:39-0500 Body weight 62.[address] Rg Menchaca MD Work Phone: 8(227)234-552698 [place] [address] 07-16-2024 08:39-0500 Diastolic blood pressure 71 mm[Hg] Dr. Rg Menchaca MD Work Phone: 7(305)757-264798 [place] [address] 07-16-2024 08:39-0500 Heart rate 80 /min Dr. Rg Menchaca MD Work Phone: 1(956)185-270698 [place] [address] 07-16-2024 08:39-0500 Respiratory rate 16 /min Dr. Rg Menchaca MD Work Phone: 1(763)901-084398 [place] [address] 07-16-2024 08:39-0500 SaO2% (BldA) [Mass fraction] 96 % Dr. Rg Menchaca MD Work Phone: 3(786)030-966727 [place] [address] 07-16-2024 08:39-0500 Systolic blood pressure 133 mm[Hg] Dr. Rg Menchaca MD Work Phone: 7(381)151-506798 [place] [address] 07-15-2024 13:02-0500 Body temperature 96.5 [degF] Dr. Rg Menchaca MD Work Phone: 1(759)510-093027 [place] [address] 07-15-2024 13:02-0500 Diastolic blood pressure 65 mm[Hg] Dr. Rg Menchaca MD Work Phone: 1(843)721-281498 [place] [address] 07-15-2024 13:02-0500 Heart rate 75 /min Dr. Rg Menchaca MD Work Phone: 3(742)647-291898 [place] [address] 07-15-2024 13:02-0500 Systolic blood pressure 108 mm[Hg] Dr. Rg Menchaca MD Work Phone: 0(117)981-323398 [place] [address] 07-15-2024 08:35-0500 Body mass index (BMI) [Ratio] 24.3 kg/m2 Dr. Rg Menchaca MD Work Phone: 6(482)896-838398 [place] [address] 07-15-2024 08:35-0500 Body weight 62.[address] Rg Menchaca MD Work Phone: 4(651)986-306398 [place] [address] 07-15-2024 08:35-0500 Respiratory rate 16 /min Dr. Rg Menchaca MD Work Phone: 6(003)597-616398 [place] [address] 07-15-2024 08:35-0500 SaO2% (BldA) [Mass fraction] 95 % Dr. Rg Menchaca MD Work Phone: 0(109)004-648498 [place] [address] 07-14-2024 08:22-0500 Body mass index (BMI) [Ratio] 24.3 kg/m2 Dr. Rg Menchaca MD Work Phone: 0(981)040-965898 [place] [address] 07-14-2024 08:22-0500 Body temperature 97.1 [degF] Dr. Rg Menchaca MD Work Phone: 3(641)743-865698 [place] [address] 07-14-2024 08:22-0500 Body weight 62.[address] Rg Menchaca MD Work Phone: 1(125)720-638098 [place] [address] 07-14-2024 08:22-0500 Diastolic blood pressure 70 mm[Hg] Dr. Rg Menchaca MD Work Phone: 9(773)977-632998 [place] [address] 07-14-2024 08:22-0500 Heart rate 83 /min Dr. Rg Menchaca MD Work Phone: 0(634)418-663998 [place] [address] 07-14-2024 08:22-0500 Respiratory rate 16 /min Dr. Rg Menchaca MD Work Phone: 3(349)135-812498 [place] [address] 07-14-2024 08:22-0500 SaO2% (BldA) [Mass fraction] 95 % Dr. Rg Menchaca MD Work Phone: 4(547)755-685798 [place] [address] 07-14-2024 08:22-0500 Systolic blood pressure 102 mm[Hg] Dr. Rg Menchaca MD Work Phone: 2(621)272-206998 [place] [address] 06-18-2024 08:30-0500 Body temperature 96.9 [degF] Dr. Rg Menchaca MD Work Phone: 2(291)768-096998 [place] [address] 06-18-2024 08:30-0500 Diastolic blood pressure 61 mm[Hg] Dr. Rg Menchaca MD Work Phone: 4(151)534-373598 [place] [address] 06-18-2024 08:30-0500 Heart rate 71 /min Dr. Rg Menchaca MD Work Phone: 3(578)175-246098 [place] [address] 06-18-2024 08:30-0500 Respiratory rate 16 /min Dr. Rg Menchaca MD Work Phone: 7(934)961-086598 [place] [address] 06-18-2024 08:30-0500 SaO2% (BldA) [Mass fraction] 95 % Dr. Rg Menchaca MD Work Phone: 3(274)974-559398 [place] [address] 06-18-2024 08:30-0500 Systolic blood pressure 114 mm[Hg] Dr. Rg Menchaca MD Work Phone: 9(980)556-517998 [place] [address] 06-17-2024 08:43-0500 Body mass index (BMI) [Ratio] 24.3 kg/m2 Dr. Rg Menchaca MD Work Phone: 8(505)829-615798 [place] [address] 06-17-2024 08:43-0500 Body temperature 96.7 [degF] Dr. Rg Menchaca MD Work Phone: 7(762)243-801498 [place] [address] 06-17-2024 08:43-0500 Body weight 62.[address] Rg Menchaca MD Work Phone: 9(412)625-050498 [place] [address] 06-17-2024 08:43-0500 Diastolic blood pressure 62 mm[Hg] Dr. Rg Menchaca MD Work Phone: 2(516)412-458398 [place] [address] 06-17-2024 08:43-0500 Heart rate 78 /min Dr. Rg Menchaca MD Work Phone: 1(365)346-152498 [place] [address] 06-17-2024 08:43-0500 Respiratory rate 16 /min Dr. Rg Menchaca MD Work Phone: 2(751)351-502998 [place] [address] 06-17-2024 08:43-0500 SaO2% (BldA) [Mass fraction] 92 % Dr. Rg Menchaca MD Work Phone: 6(044)826-777998 [place] [address] 06-17-2024 08:43-0500 Systolic blood pressure 108 mm[Hg] Dr. Rg Menchaca MD Work Phone: 9(194)248-600298 [place] [address] 06-16-2024 08:20-0500 Body mass index (BMI) [Ratio] 23.4 kg/m2 Dr. Rg Menchaca MD Work Phone: 5(323)512-444798 [place] [address] 06-16-2024 08:20-0500 Body temperature 97.5 [degF] Dr. Rg Menchaca MD Work Phone: 8(788)488-957798 [place] [address] 06-16-2024 08:20-0500 Body weight [address] Rg Menchaca MD Work Phone: 4(209)413-425998 [place] [address] 06-16-2024 08:20-0500 Diastolic blood pressure 68 mm[Hg] Dr. Rg Menchaca MD Work Phone: 3(951)566-332098 [place] [address] 06-16-2024 08:20-0500 Heart rate 82 /min Dr. Rg Menchaca MD Work Phone: 9(450)388-632598 [place] [address] 06-16-2024 08:20-0500 Respiratory rate 16 /min Dr. Rg Menchaca MD Work Phone: 3(864)981-792898 [place] [address] 06-16-2024 08:20-0500 SaO2% (BldA) [Mass fraction] 95 % Dr. Rg Menchaca MD Work Phone: 5(879)606-848598 [place] [address] 06-16-2024 08:20-0500 Systolic blood pressure 110 mm[Hg] Dr. Rg Menchaca MD Work Phone: 1(559)936-443698 [place] [address] 05-22-2024 09:00-0500 Body temperature 97.2 [degF] Dr. Rg Menchaca MD Work Phone: [facility] 05-22-2024 09:00-0500 Diastolic blood pressure 84 mm[Hg] Dr. Rg Menchaca MD Work Phone: 1(055)221-269527 [place] [address] 05-22-2024 09:00-0500 Heart rate 65 /min Dr. Rg Menchaca MD Work Phone: 7(456)428-437227 [place] [address] 05-22-2024 09:00-0500 Respiratory rate 16 /min Dr. Rg Menchaca MD Work Phone: 5(613)275-078444 [address] 05-22-2024 09:00-0500 SaO2% (BldA) [Mass fraction] 96 % Dr. Rg Menchaca MD Work Phone: 8(739)725-949144 [address] 05-22-2024 09:00-0500 Systolic blood pressure 112 mm[Hg] Dr. Rg Menchaca MD Work Phone: 0(711)658-985327 [address] [place] [address] 05-21-2024 08:39-0500 Body temperature 96.9 [degF] Dr. Rg Menchaca MD Work Phone: 5(669)600-802927 [place] [address] 05-21-2024 08:39-0500 Diastolic blood pressure 60 mm[Hg] Dr. Rg Menchaca MD Work Phone: 3(074)871-860527 [place] [address] 05-21-2024 08:39-0500 Heart rate 74 /min Dr. Rg Menchaca MD Work Phone: 2(874)850-343027 [place] [address] 05-21-2024 08:39-0500 Respiratory rate 16 /min Dr. Rg Menchaca MD Work Phone: [facility] 05-21-2024 08:39-0500 SaO2% (BldA) [Mass fraction] 96 % Dr. Rg Menchaca MD Work Phone: [facility] 05-21-2024 08:39-0500 Systolic blood pressure 105 mm[Hg] Dr. Rg Menchaca MD Work Phone: 8(902)363-812227 [place] [address] 05-19-2024 08:26-0500 Body mass index (BMI) [Ratio] 25 kg/m2 Dr. Rg Menchaca MD Work Phone: [facility] 05-19-2024 08:26-0500 Body temperature 98.6 [degF] Dr. Rg Menchaca MD Work Phone: [facility] 05-19-2024 08:26-0500 Body weight 63.[address] Rg Menchaca MD Work Phone: 7(084)562-391827 [place] [address] 05-19-2024 08:26-0500 Diastolic blood pressure 79 mm[Hg] Dr. Rg Menchaca MD Work Phone: 3(948)719-001244 [address] 05-19-2024 08:26-0500 Heart rate 88 /min Dr. Rg Menchaca MD Work Phone: 1(270)819-114244 [address] 05-19-2024 08:26-0500 Respiratory rate 16 /min Dr. Rg Menchaca MD Work Phone: 8(139)504-350944 [address] 05-19-2024 08:26-0500 SaO2% (BldA) [Mass fraction] 96 % Dr. Rg Menchaca MD Work Phone: 3(414)563-916144 [address] 05-19-2024 08:26-0500 Systolic blood pressure 114 mm[Hg] Dr. Rg Menchaca MD Work Phone: 9(100)355-446044 [address] 04-23-2024 08:22-0500 Body mass index (BMI) [Ratio] 24.5 kg/m2 Dr. Rg Menchaca MD Work Phone: 4(407)196-990727 [place] [address] 04-23-2024 08:22-0500 Body temperature 97 [degF] Dr. Rg Menchaca MD Work Phone: 6(024)294-084044 [address] 04-23-2024 08:22-0500 Body weight 62.[address] Rg Menchaca MD Work Phone: 0(106)432-311927 [place] [address] 04-23-2024 08:22-0500 Diastolic blood pressure 71 mm[Hg] Dr. Rg Menchaca MD Work Phone: 7(015)908-688427 [place] [address] 04-23-2024 08:22-0500 Heart rate 76 /min Dr. Rg Menchaca MD Work Phone: [facility] 04-23-2024 08:22-0500 Respiratory rate 16 /min Dr. Rg Menchaca MD Work Phone: 5(817)984-115198 [place] [address] 04-23-2024 08:22-0500 SaO2% (BldA) [Mass fraction] 95 % Dr. Rg Menchaca MD Work Phone: 6(049)285-583627 [place] [address] 04-23-2024 08:22-0500 Systolic blood pressure 117 mm[Hg] Dr. Rg Menchaca MD Work Phone: 7(093)618-902098 [place] [address] 04-22-2024 08:27-0500 Body mass index (BMI) [Ratio] 24.5 kg/m2 Dr. Rg Menchaca MD Work Phone: 1(914)397-449498 [place] [address] 04-22-2024 08:27-0500 Body temperature 97.2 [degF] Dr. Rg Menchaca MD Work Phone: 4(326)575-077298 [place] [address] 04-22-2024 08:27-0500 Body weight 62.[address] Rg Menchaca MD Work Phone: 8(759)018-690098 [place] [address] 04-22-2024 08:27-0500 Diastolic blood pressure 68 mm[Hg] Dr. Rg Menchaca MD Work Phone: 7(572)586-218698 [place] [address] 04-22-2024 08:27-0500 Heart rate 72 /min Dr. Rg Menchaca MD Work Phone: 7(686)517-230898 [place] [address] 04-22-2024 08:27-0500 Respiratory rate 16 /min Dr. Rg Menchaca MD Work Phone: 4(739)495-089098 [place] [address] 04-22-2024 08:27-0500 SaO2% (BldA) [Mass fraction] 97 % Dr. Rg Menchaca MD Work Phone: 1(244)376-696298 [place] [address] 04-22-2024 08:27-0500 Systolic blood pressure 115 mm[Hg] Dr. Rg Menchaca MD Work Phone: 8(306)924-060098 [place] [address] 04-21-2024 08:25-0500 Body mass index (BMI) [Ratio] 24.4 kg/m2 Dr. Rg Menchaca MD Work Phone: [facility] 04-21-2024 08:25-0500 Body temperature 96.5 [degF] Dr. Rg Menchaca MD Work Phone: [facility] 04-21-2024 08:25-0500 Body weight 62.[address] Rg Menchaca MD Work Phone: [facility] 04-21-2024 08:25-0500 Diastolic blood pressure 57 mm[Hg] Dr. Rg Menchaca MD Work Phone: [facility] 04-21-2024 08:25-0500 Heart rate 77 /min Dr. Rg Menchaca MD Work Phone: [facility] 04-21-2024 08:25-0500 Respiratory rate 16 /min Dr. Rg Menchaca MD Work Phone: [facility] 04-21-2024 08:25-0500 SaO2% (BldA) [Mass fraction] 94 % Dr. Rg Menchaca MD Work Phone: [facility] 04-21-2024 08:25-0500 Systolic blood pressure 104 mm[Hg] Dr. Rg Menchaca MD Work Phone: [facility] 02-05-2024 11:19-0400 Diastolic blood pressure 68 mm[Hg] Windy Yuen MD Work Phone: [facility] 02-05-2024 11:19-0400 Heart rate 81 /min Windy Yuen MD Work Phone: [facility] 02-05-2024 11:19-0400 SaO2% (BldA) [Mass fraction] 94 % Windy Yuen MD Work Phone: [facility] 02-05-2024 11:19-0400 Systolic blood pressure 116 mm[Hg] Windy Yuen MD Work Phone: [facility] 09-13-2023 08:36-0400 Body height 160.02 cm [facility] 09-13-2023 08:36-0400 Body temperature 98.1 [degF] [facility] 09-13-2023 08:36-0400 Diastolic blood pressure 68 mm[Hg] [facility] 09-13-2023 08:36-0400 Heart rate 77 /min [facility] 09-13-2023 08:36-0400 Respiratory rate 16 /min [facility] 09-13-2023 08:36-0400 SaO2% (BldA) [Mass fraction] 94 % [facility] 09-13-2023 08:36-0400 Systolic blood pressure 115 mm[Hg] [facility] 09-12-2023 09:03-0400 Body height 160.02 cm [facility] 09-12-2023 09:03-0400 Body mass index (BMI) [Ratio] 23.4 kg/m2 [facility] 09-12-2023 09:03-0400 Body temperature 98.5 [degF] [facility] 09-12-2023 09:03-0400 Body weight 60 kg [facility] 09-12-2023 09:03-0400 Diastolic blood pressure 75 mm[Hg] [facility] 09-12-2023 09:03-0400 Heart rate 70 /min [facility] 09-12-2023 09:03-0400 Respiratory rate 16 /min [facility] 09-12-2023 09:03-0400 SaO2% (BldA) [Mass fraction] 95 % [facility] 09-12-2023 09:03-0400 Systolic blood pressure 130 mm[Hg] [facility] 09-11-2023 08:32-0400 Body height 160.02 cm [facility] 09-11-2023 08:32-0400 Body temperature 98.3 [degF] [facility] 09-11-2023 08:32-0400 Diastolic blood pressure 64 mm[Hg] [facility] 09-11-2023 08:32-0400 Heart rate 77 /min [facility] 09-11-2023 08:32-0400 Respiratory rate 16 /min [facility] 09-11-2023 08:32-0400 SaO2% (BldA) [Mass fraction] 95 % [facility] 09-11-2023 08:32-0400 Systolic blood pressure 109 mm[Hg] [facility] 09-10-2023 08:39-0400 Body height 160.02 cm [facility] 09-10-2023 08:39-0400 Body mass index (BMI) [Ratio] 23.7 kg/m2 [facility] 09-10-2023 08:39-0400 Body temperature 98 [degF] [facility] 09-10-2023 08:39-0400 Body weight 60.78 kg [facility] 09-10-2023 08:39-0400 Diastolic blood pressure 67 mm[Hg] [facility] 09-10-2023 08:39-0400 Heart rate 80 /min [facility] 09-10-2023 08:39-0400 Respiratory rate 16 /min [facility] 09-10-2023 08:39-0400 SaO2% (BldA) [Mass fraction] 96 % [facility] 09-10-2023 08:39-0400 Systolic blood pressure 115 mm[Hg] [facility] 09-09-2023 13:39-0400 Body temperature 97.1 [degF] [facility] 09-09-2023 13:39-0400 Diastolic blood pressure 65 mm[Hg] [facility] 09-09-2023 13:39-0400 Heart rate 72 /min [facility] 09-09-2023 13:39-0400 Respiratory rate 16 /min [facility] 09-09-2023 13:39-0400 SaO2% (BldA) [Mass fraction] 97 % [facility] 09-09-2023 13:39-0400 Systolic blood pressure 110 mm[Hg] [facility] 09-09-2023 08:39-0400 Body height 160.02 cm [facility] 07-31-2023 16:35-0400 Body height 160.7 cm Windy Yuen MD Work Phone: [facility] 07-31-2023 16:35-0400 Body weight 59.88 kg Windy Yuen MD Work Phone: [facility] 07-31-2023 16:35-0400 Diastolic blood pressure 50 mm[Hg] Windy Yuen MD Work Phone: [facility] 07-31-2023 16:35-0400 Heart rate 72 /min Windy Yuen MD Work Phone: [facility] 07-31-2023 16:35-0400 SaO2% (BldA) [Mass fraction] 96 % Windy Yuen MD Work Phone: [facility] 07-31-2023 16:35-0400 Systolic blood pressure 91 mm[Hg] Windy Yuen MD Work Phone: [facility] 04-29-2022 04:53-0500 Diastolic blood pressure 82 mm[Hg] [facility] Work Phone: 04-29-2022 04:53-0500 Heart rate 70 /min [facility] Work Phone: 04-29-2022 04:53-0500 Respiratory rate 16 /min [facility] Work Phone: 04-29-2022 04:53-0500 SaO2% (BldA) [Mass fraction] 98 % [facility] Work Phone: 04-29-2022 04:53-0500 Systolic blood pressure 124 mm[Hg] [facility] Work Phone: 04-28-2022 21:57-0500 Body height 160.02 cm [facility] Work Phone: 04-28-2022 21:57-0500 Body mass index (BMI) [Ratio] 24.1 kg/m2 [facility] Work Phone: 04-28-2022 21:57-0500 Body temperature 96.2 [degF] [facility] Work Phone: 04-28-2022 21:57-0500 Body weight 61.87 kg [facility] Work Phone: 03-01-2022 13:29-0400 Diastolic blood pressure 63 mm[Hg] [facility] Work Phone: 03-01-2022 13:29-0400 Heart rate 77 /min [facility] Work Phone: 03-01-2022 13:29-0400 Respiratory rate 18 /min [facility] Work Phone: 03-01-2022 13:29-0400 SaO2% (BldA) [Mass fraction] 93 % [facility] Work Phone: 03-01-2022 13:29-0400 Systolic blood pressure 102 mm[Hg] [facility] Work Phone: 03-01-2022 10:29-0400 Body temperature 97.2 [degF] [facility] Work Phone: 03-01-2022 10:25-0400 Body mass index (BMI) [Ratio] 21.9 kg/m2 [facility] Work Phone: 03-01-2022 10:25-0400 Body weight 56.1 kg [facility] Work Phone: 11-15-2021 11:23-0400 Body weight 55.79 kg La Nena Lala MD Work Phone: [facility] 11-15-2021 11:23-0400 Diastolic blood pressure 67 mm[Hg] La Nena Lala MD Work Phone: [facility] 11-15-2021 11:23-0400 Heart rate 85 /min La Nena Lala MD Work Phone: [facility] 11-15-2021 11:23-0400 Respiratory rate 16 /min La Nena Lala MD Work Phone: [facility] 11-15-2021 11:23-0400 SaO2% (BldA) [Mass fraction] 99 % La Nena Lala MD Work Phone: [facility] 11-15-2021 11:23-0400 Systolic blood pressure 105 mm[Hg] La Nena Lala MD Work Phone: [facility] 08-30-2021 20:07-0400 Diastolic blood pressure 74 mm[Hg] Dr. Rg Menchaca Work Phone: [facility] Work Phone: 08-30-2021 20:07-0400 Heart rate 69 /min Dr. Rg Menchaca Work Phone: [facility] Work Phone: 08-30-2021 20:07-0400 Respiratory rate 18 /min Dr. Rg Menchaca Work Phone: [facility] Work Phone: 08-30-2021 20:07-0400 SaO2% (BldA) [Mass fraction] 96 % Dr. Rg Menchaca Work Phone: [facility] Work Phone: 08-30-2021 20:07-0400 Systolic blood pressure 94 mm[Hg] Dr. Rg Menchaca Work Phone: [facility] Work Phone: 08-30-2021 18:05-0400 Body height 154.[address] Rg Menchaca Work Phone: [facility] Work Phone: 08-30-2021 18:05-0400 Body mass index (BMI) [Ratio] 25.9 kg/m2 Dr. Rg Menchaca Work Phone: [facility] Work Phone: 08-30-2021 18:05-0400 Body temperature 96.8 [degF] Dr. Rg Menchaca Work Phone: [facility] Work Phone: 08-30-2021 18:05-0400 Body weight 62.[address] Rg Menchaca Work Phone: [facility] Work Phone: 08-19-2021 14:30-0400 Body temperature 98.9 [degF] Dr. Rg Menchaca Work Phone: [facility] Work Phone: 08-19-2021 14:30-0400 Diastolic blood pressure 68 mm[Hg] Dr. Rg Menchaca Work Phone: [facility] Work Phone: 08-19-2021 14:30-0400 Heart rate 88 /min Dr. Rg Menchaca Work Phone: [facility] Work Phone: 08-19-2021 14:30-0400 Respiratory rate 18 /min Dr. Rg Menchaca Work Phone: [facility] Work Phone: 08-19-2021 14:30-0400 SaO2% (BldA) [Mass fraction] 96 % Dr. Rg Menchaca Work Phone: [facility] Work Phone: 08-19-2021 14:30-0400 Systolic blood pressure 104 mm[Hg] Dr. Rg Menchaca Work Phone: [facility] Work Phone: 08-19-2021 12:54-0400 Body height 154.[address] Rg Menchaca Work Phone: [facility] Work Phone: 08-19-2021 12:54-0400 Body weight 53.[address] Rg Menchaca Work Phone: [facility] Work Phone: 08-18-2021 21:27-0400 Body mass index (BMI) [Ratio] 22.2 kg/m2 Dr. Rg Menchaca Work Phone: [facility] Work Phone: 08-18-2021 20:57-0400 Body temperature 98 [degF] [facility] Work Phone: 08-18-2021 20:57-0400 Diastolic blood pressure 62 mm[Hg] [facility] Work Phone: 08-18-2021 20:57-0400 Heart rate 74 /min [facility] Work Phone: 08-18-2021 20:57-0400 Respiratory rate 16 /min [facility] Work Phone: 08-18-2021 20:57-0400 SaO2% (BldA) [Mass fraction] 98 % [facility] Work Phone: 08-18-2021 20:57-0400 Systolic blood pressure 106 mm[Hg] [facility] Work Phone: 08-18-2021 17:31-0400 Body height 159.99 cm [facility] Work Phone: 08-18-2021 17:31-0400 Body mass index (BMI) [Ratio] 21.4 kg/m2 [facility] Work Phone: 08-18-2021 17:31-0400 Body weight 54.9 kg [facility] Work Phone: Encounters Encounter Date Encounter Type Care Provider Facility Start: 02-04-2025 ambulatory Rg Menchaca Facility:[facility] Start: 02-03-2025 ambulatory Windy Yuen Facilit y:[facility] Start: 02-02-2025 ambulatory Windy Spodelfina Facilit y:[facility] Start: 01-08-2025 End: 01-08-[address] Windy Yuen MD -[facility] Work Phone: Start: 01-08-2025 End: 01-08-[address] Rg Menchaca MD Work Phone: [facility] Start: 01-07-2025 End: 01-07-[address] Windy Yuen MD -[facility] Work Phone: Start: 01-07-2025 End: 01-07-[address] Rg Menchaca MD Work Phone: [facility] Start: 01-06-2025 End: 01-06-[address] Windy Yuen MD -[facility] Work Phone: Start: 01-06-2025 End: 01-06-[address] Rg Menchaca MD Work Phone: [facility] Start: 12-03-2024 End: 12-03-[address] Windy Yuen MD -[facility] Work Phone: Start: 12-03-2024 End: 12-03-[address] Rg Menchaca MD Work Phone: [facility] Start: 12-02-2024 End: 12-02-[address] Windy Yuen MD -[facility] Work Phone: Start: 12-02-2024 End: 12-02-[address] Rg Menchaca MD Work Phone: [facility] Start: 12-01-2024 End: 12-01-[address] Windy Yuen MD -[facility] Work Phone: Start: 12-01-2024 End: 12-01-[address] Rg Menchaca MD Work Phone: [facility] Start: 11-11-2024 End: 11-11-2024 ambulatory WINDY YUEN Facility:[facility] Start: 11-11-2024 End: 11-11-2024 Patient encounter procedure Windy Yuen MD Work Phone: Neurology Comment on above: Stiff person syndrom e Start: 11-05-2024 End: 11-05-[address] Windy Yuen MD -[facility] Work Phone: Start: 11-05-2024 End: 11-05-[address] Rg Menchaca MD Work Phone: [facility] Work Phone: Start: 11-04-2024 End: 11-04-[address] Windy Yuen MD -[facility] Work Phone: Start: 11-04-2024 End: 11-04-[address] Rg Menchaca MD Work Phone: [facility] Work Phone: Start: 11-03-2024 End: 11-03-[address] Windy Yuen MD -[facility] Work Phone: Start: 11-03-2024 End: 11-03-[address] Rg Menchaca MD Work Phone: [facility] Work Phone: Start: 10-08-2024 End: 10-08-[address] Windy Yuen MD -[facility] Work Phone: Start: 10-08-2024 End: 10-08-2024 [facility] Start: 10-07-2024 End: 10-07-[address] Windy Yuen MD -[facility] Work Phone: Start: 10-07-2024 End: 10-07-[address] Rg Menchaca MD Work Phone: [facility] Work Phone: Start: 10-06-2024 End: 10-06-[address] Windy Yuen MD -[facility] Work Phone: Start: 10-06-2024 End: 10-06-[address] Rg Menchaca MD Work Phone: [facility] Work Phone: Start: 09-10-2024 End: 09-10-[address] Windy Yuen MD -[facility] Work Phone: Start: 09-10-2024 End: 09-10-[address] Rg Menchaca MD Work Phone: [facility] Work Phone: Start: 09-09-2024 End: 09-09-[address] Windy Yuen MD -[facility] Work Phone: Start: 09-09-2024 End: 09-09-[address] Rg Menchaca MD Work Phone: [facility] Work Phone: Start: 09-08-2024 End: 09-08-[address] Windy Yuen MD -[facility] Work Phone: Start: 09-08-2024 End: 09-08-2024 ambulatory Windy Yuen Facility:[facility] Start: 08-13-2024 End: 08-13-[address] Windy Yuen MD -[facility] Work Phone: Start: 08-13-2024 End: 08-13-[address] Rg Menchaca MD Work Phone: [facility] Work Phone: Start: 08-12-2024 End: 08-12-[address] Windy Yuen MD -[facility] Work Phone: Start: 08-12-2024 End: 08-12-[address] Rg Menchaca MD Work Phone: [facility] Work Phone: Start: 08-11-2024 End: 08-11-[address] Windy Yuen MD -[facility] Work Phone: Start: 08-11-2024 End: 08-11-[address] Rg Menchaca MD Work Phone: [facility] Work Phone: Start: 07-16-2024 End: 07-16-[address] Windy Yuen MD -[facility] Work Phone: Start: 07-16-2024 End: 07-16-2024 ambulatory [facility] Facility:[facility] Start: 07-15-2024 End: 07-15-[address] Windy Yuen MD -[facility] Work Phone: Start: 07-15-2024 End: 07-15-2024 ambulatory [facility] Facility:[facility] Start: 07-14-2024 End: 07-14-[address] Windy Yuen MD -[facility] Work Phone: Start: 07-14-2024 End: 07-14-2024 ambulatory [facility] Facility:[facility] Start: 06-18-2024 End: 06-18-[address] Wnidy Yuen MD -[facility] Work Phone: Start: 06-18-2024 End: 06-18-2024 ambulatory [facility] Facility:[facility] Start: 06-17-2024 End: 06-17-[address] Winyd Yuen MD -[facility] Work Phone: Start: 06-17-2024 End: 06-17-2024 ambulatory [facility] Facility:[facility] Start: 06-16-2024 End: 06-16-[address] Windy Yuen MD -[facility] Work Phone: Start: 06-16-2024 End: 06-16-2024 ambulatory [facility] Facility:[facility] Start: 05-22-2024 End: 05-22-[address] Windy Yuen MD -[facility] Work Phone: Start: 05-22-2024 End: 05-22-2024 ambulatory [facility] Facility:[facility] Start: 05-21-2024 End: 05-21-[address] Windy Yuen MD -[facility] Work Phone: Start: 05-21-2024 End: 05-21-2024 ambulatory Windy Spolter Facility:[facility] Start: 05-19-2024 End: 05-19-[address] Windy Yuen MD -[facility] Work Phone: Start: 05-19-2024 End: 05-19-2024 ambulatory Windy Spolter Facility:[facility] Start: 04-23-2024 End: 04-23-[address] Windy Yuen MD -[facility] Work Phone: Start: 04-23-2024 End: 04-[facility] Start: 04-22-2024 End: 04-22-[address] Windy Yuen MD -[facility] Work Phone: Start: 04-22-2024 End: 04-22-2024 ambulatory Windy Spolter Facility:[facility] Start: 04-21-2024 End: 04-21-[address] Windy Yuen MD -[facility] Work Phone: Start: 04-21-2024 End: 04-21-2024 ambulatory Windy Spolter Facility:[facility] Start: 03-26-2024 End: 03-26-2024 ambulatory Windy Spolter Facility:[facility] Start: 03-25-2024 End: 03-25-2024 ambulatory Windy Spolter Facility:[facility] Start: 03-24-2024 End: 03-24-2024 ambulatory Windy Spolter Facility:[facility] Start: 02-27-2024 End: 02-27-2024 ambulatory Windy Spolter Facility:[facility] Start: 02-26-2024 End: 02-26-2024 ambulatory Windy Spolter Facility:[facility] Start: 02-25-2024 End: 02-25-2024 ambulatory Windy Yuen Facility:[facility] Start: 02-06-2024 End: 02-06-2024 Telephone encounter Windy Yuen MD Work Phone: Neurology Comment on above: Orders (IVIG) Start: 02-05-2024 End: 02-05-2024 ambulatory WINDY YUEN Facility:[facility] Start: 02-05-2024 End: 02-05-2024 Patient encounter procedure Windy Yuen MD Work Phone: Neurology Comment on above: Stiff person syndrom e Start: 11-24-2023 Telephone encounter Windy Yuen MD Work Phone: Neurology Comment on above: Appointment (Update faxed to [facility] for appointment 02/05/24) Start: 11-14-2023 Telephone encounter Windy Yuen MD Work Phone: Neurology Start: 10-29-2023 Telephone encounter Windy Yuen MD Work Phone: Neurology Comment on above: Appointment (Appoint ment Update Faxed to [facility] for 12/17/23) Start: 10-15-2023 Telephone encounter Windy Yuen MD Work Phone: Neurology Comment on above: Patient Update Start: 09-25-2023 Telephone encounter Windy Yuen MD Work Phone: Neurology Comment on above: Appointment Start: 09-18-2023 Telephone encounter Windy Yuen MD Work Phone: Neurology Comment on above: Medication Question Start: 09-13-2023 End: 09-13-2023 ambulatory [facility] Work Phone: Start: 09-13-2023 End: 09-13-2023 Patient encounter procedure [facility] Work Phone: Start: 09-12-2023 End: 09-12-2023 ambulatory [facility] Work Phone: Start: 09-12-2023 End: 09-12-2023 Patient encounter procedure [facility] Work Phone: Start: 09-11-2023 End: 09-11-2023 ambulatory [facility] Work Phone: Start: 09-11-2023 End: 09-11-2023 Patient encounter procedure [facility] Work Phone: Start: 09-10-2023 End: 09-10-2023 ambulatory [facility] Work Phone: Start: 09-10-2023 End: 09-10-2023 Patient encounter procedure [facility] Work Phone: Start: 09-09-2023 End: 09-09-2023 ambulatory [facility] Work Phone: Start: 09-09-2023 End: 09-09-2023 Patient encounter procedure [facility] Work Phone: Start: 08-13-2023 Telephone encounter Windy Yuen MD Work Phone: [facility] Start: 07-31-2023 End: 07-31-2023 Patient [...] patient La Nena Lala MD Work Phone: [facility] Start: 05-31-2022 Telephone encounter La Nena Keen i, MD Work Phone: Endocrinology Comment on above: Appointment (Resched ule ) Start: 04-28-2022 End: 04-29-2022 Emergency department patient visit [facility]Emergency Department Start: 04-18-2022 ambulatory UNKNOWN PROVIDER Facili ty:[facility] Start: 04-18-2022 End: 04-18-2022 Patient encounter procedure Maryan Loving DPM Work Phone: Podiatry Comment on above: Cavovarus deformity of foot, acquired, right (Primary Dx); Other osteoporosis without current pathological fracture; Hammertoe, bilateral Start: 04-18-2022 End: 04-18-2022 Subsequent hospital visit by physician [facility] Work Phone: Radiology Comment on above: Pain [R52] Start: 03-08-2022 ambulatory Facility:[facility] Start: 03-01-2022 End: 03-01-2022 Emergency department patient visit [facility] Start: 11-15-2021 End: 11-16-2021 ambulatory UNKNOWN PROVIDER Facility:[facility] Start: 11-15-2021 End: 11-15-2021 Patient encounter procedure La Nena Lala MD Work Phone: Endocrinology Comment on above: Acquired hypothyroid ism (Primary Dx); Poorly controlled type 1 diabetes mellitus (HCC) Start: 08-30-2021 End: 08-30-2021 Emergency department patient visit Dr. Rg Menchaca Work Phone: [facility] Start: 08-19-2021 Non-patient / Non-visit Dr. Eron Menchaca Work Phone: [facility] Start: 08-18-2021 End: 08-19-2021 Evaluation and management of inpatient [facility]Pro[facility] Unit Procedures Date Procedure Procedure [...] AM EST Office Visit Neurology [address] [place] [address] Windy Yuen MD [address] [place] [address] Neurology Start: 01-18-2025 Influenza vaccination Influenz a Vaccine (Season Ended) [facility] Start: 12-03-2024 Iv infusion therapy prophylaxis/dx ea hour THER/PROPH/DIAG IV INF [facility] Start: 12-03-2024 Iv infusion therapy/prophylaxis /dx 1st to 1 hr THER/PROPH/DIAG IV INF [facility] Start: 12-03-2024 Therapeutic injectio n iv push each new drug TX/PRO/DX INJ NEW DRUG [facility] Start: 11-04-2024 Iv infusion therapy prophylaxis/dx ea hour THER/PROPH/DIAG IV INF [facility] Start: 11-04-2024 Iv infusion therapy/prophylaxis /dx 1st to 1 hr THER/PROPH/DIAG IV INF [facility] Start: 11-04-2024 Therapeutic injectio n iv push each new drug TX/PRO/DX INJ NEW DRUG [facility] Start: 10-07-2024 Iv infusion therapy prophylaxis/dx ea hour THER/PROPH/DIAG IV INF [facility] Start: 10-07-2024 Iv infusion therapy/prophylaxis /dx 1st to 1 hr THER/PROPH/DIAG IV INF [facility] Start: 10-07-2024 Therapeutic injectio n iv push each new drug TX/PRO/DX INJ NEW DRUG [facility] Start: 09-10-2024 Iv infusion therapy prophylaxis/dx ea hour THER/PROPH/DIAG IV INF [facility] Start: 09-10-2024 Iv infusion therapy/prophylaxis /dx 1st to 1 hr THER/PROPH/DIAG IV INF [facility] Start: 09-10-2024 Therapeutic injectio n iv push each new drug TX/PRO/DX INJ NEW DRUG [facility] Start: 08-11-2024 Iv infusion therapy prophylaxis/dx ea hour THER/PROPH/DIAG IV INF [facility] Start: 08-11-2024 Iv infusion therapy/prophylaxis /dx 1st to 1 hr THER/PROPH/DIAG IV INF [facility] Start: 08-11-2024 Therapeutic injectio n iv push each new drug TX/PRO/DX INJ NEW DRUG [facility] Start: 08-11-2024 End: 08-11-2024 Patient encounter procedure 08/11/2024 12:00 PM EDT Office Visit Neurology [address] [facility] [address] [place] [address] Windy Yuen MD [address] [place] [address] 6 mo Neurology Comment on above: 6 mo Start: 07-16-2024 Iv infusion therapy prophylaxis/dx ea hour THER/PROPH/DIAG IV INF [facility] Start: 07-16-2024 Iv infusion therapy/prophylaxis /dx 1st to 1 hr THER/PROPH/DIAG IV INF [facility] Start: 07-16-2024 Therapeutic injectio n iv push each new drug TX/PRO/DX INJ NEW DRUG [facility] Start: 05-20-2024 Advance Directive Discussion Advance Directive Discussion [facility] Start: 05-20-2024 Medicare Advantage Annual Wellness Visit Medicare Advantage Annual Wellness Visit [facility] Start: 02-05-2024 End: 02-05-2024 Patient encounter procedure 02/05/2024 11:30 AM EDT Office Visit Neurology [address] [facility] [address] [place] [address] Windy Yuen MD [address] [facility] [address] [place] [address] 3 mo follow up Neurology Comment on above: 3 mo follow up Start: 01-19-2024 Covid-19 Vaccine ( season) Covid-19 Vaccine ( season) [facility] Start: 01-19-2024 Covid-19 Vaccine ( season) Covid-19 Vaccine ( season) [facility] Start: 01-19-2024 Influenza vaccination [facility] Start: 12-17-2023 End: 12-17-2023 Patient encounter procedure 12/17/2023 12:00 PM EDT Office Visit Neurology [address] [place] [address] Windy Yuen MD [address] [place] [address] 3 mo follow up- 09/24 mychart message [...] 05-20-2023 Advance Directive Discussion Advance Directive Discussion [facility] Start: 05-20-2023 Behavioral Health Screening Behavioral Health Screening [facility] Start: 05-20-2023 Depression Assessment Depression Ass essment [facility] Start: 01-18-2023 Covid-19 Vaccine ( season) Covid-19 Vaccine () [facility] Start: 01-18-2023 Influenza vaccination Influenza Vacc ine (#1) [facility] Start: 11-15-2022 3 comp foot exam completed DIABETIC FOOT EXAM [facility] Start: 11-15-2022 Diabetic foot examination Diabetic Foot Exam [facility] Start: 05-20-2022 ADVANCE DIRECTIVE DISCUSSION ADVANCE DIRECTIVE DISCUSSION [facility] Start: 05-20-2022 DEPRESSION ASSESSMENT DEPRESSION ASS ESSMENT [facility] Start: 02-15-2022 Hemoglobin A1c measurement HbA1C [facility] Start: 02-15-2022 Hemoglobin A1c/Hemoglobin.total in Blood HBA1C [facility] Start: 01-18-2022 [facility] Start: 11-15-2021 End: 01-15-2022 C peptide [Mass/volume] in Serum or Plasma [facility] Work Phone: Comment on above: Expected: 11/15/2021 , Expires: 01/15/2022 Start: 11-15-2021 End: 11-15-2022 Glutamate decarboxylase 65 Ab [Units/volume] in Serum [facility] Work Phone: Comment on above: Expected: 11/15/2021 , Expires: 11/15/2022 Start: 11-15-2021 End: 11-15-2022 INSULIN ANTIBODY BLD [facility] Work Phone: Comment on above: Expected: 11/15/2021 , Expires: 11/15/2022 Start: 11-15-2021 End: 01-15-2022 INSULINOMA ASSOCIATED ANTIBODY 2 [facility] Work Phone: Comment on above: Expected: 11/15/2021 , Expires: 01/15/2022 Start: 11-15-2021 End: 11-15-2022 Pancreatic islet cell Ab [Titer] in Serum [facility] Work Phone: Comment on above: Expected: 11/15/2021 , Expires: 11/15/2022 Start: 11-15-2021 End: 01-15-2022 Thyroxine (T4) free [Mass/volume] in Serum or Plasma [facility] Work Phone: Comment on above: Expected: 11/15/2021 , Expires: 01/15/2022 Start: 05-20-2021 ADVANCE DIRECTIVE DISCUSSION ADVANCE DIRECTIVE DISCUSSION [facility] Start: 05-20-2021 DEPRESSION ASSESSMENT DEPRESSION ASS ESSMENT [facility] Start: 04-17-2021 COVID-19 VACCINE (2 - Pfizer series) COVID-19 VACCINE (2 - Pfizer series) [facility] Start: 04-21-2019 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 VISIT ANNUAL PCP TEAM CHRONIC DISEASE VISIT [facility] Start: 03-08-2018 Hepatitis B surface antibody level LDL CHOLESTEROL [facility] Start: 2017 RSV Vaccine (1 - 1-d ose 75+ series) RSV Vaccine (1 - 1-dose 75+ series) [facility] Start: 05-21-2016 PNEUMOCOCCAL: 65+ (2 - PPSV23 if available, else PCV20) PNEUMOCOCCAL: 65+ (2 - PPSV23 if available, else PCV20) [facility] Start: 05-21-2016 PNEUMOCOCCAL: 65+ (2 - PPSV23 or PCV20) PNEUMOCOCCAL: 65+ (2 - PPSV23 or PCV20) [facility] Start: 07-16-2015 Pneumococcal Vaccine : 50+ (2 of 2 - PPSV23) Pneumococcal Vaccine: 50+ (2 of 2 - PPSV23) [facility] Start: 07-16-2015 Pneumococcal Vaccine : 65+ (2 - PPSV23 or PCV20) Pneumococcal Vaccine: 65+ (2 - PPSV23 or PCV20) [facility] Start: 07-16-2015 Pneumococcal Vaccine : 65+ (2 of 2 - PPSV23 or PCV20) Pneumococcal Vaccine: 65+ (2 of 2 - PPSV23 or PCV20) [facility] Start: 07-16-2015 PNEUMOCOCCAL: 65+ (2 - PPSV23 if available, else PCV20) PNEUMOCOCCAL: 65+ (2 - PPSV23 if available, else PCV20) [facility] Start: 2007 BONE DENSITY BONE DENSITY [facility] Start: 2007 Bone Density Screening Bone Density Screening [facility] Start: 2007 Screening for osteoporosis Bone Density Screening [facility] Start: 2002 Hepatitis B Vaccine (1 of 3 - Risk 3-dose series) Hepatitis B Vaccine (1 of 3 - Risk 3-dose series) [facility] Start: 2002 RSV Vaccine (1 - 1-d ose 60+ series) RSV Vaccine (1 - 1-dose 60+ series) [facility] Start: 1992 SHINGRIX VACCINE (1 of 2) SHINGRIX VACCINE (1 of 2) [facility] Start: 1961 Urine microalbumin profile [facility] Start: 1960 Depression Screening Depression Scre ening [facility] Start: 1954 Adult depression screening assessment DEPRESSION SCREENING [facility] Start: 1952 Glaucoma screening Dilated Retinal E xam [facility] Start: 1952 Hepatitis B screening URINE ALBUMIN:CREATININE RATIO [facility] Start: 1952 Hepatitis C antibody , confirmatory test DILATED RETINAL EXAM [facility] Patient Education [facility] Work Phone: Patient referral [facility] Work Phone: [facility] Immunizations Immunization Date Immunization Notes Care Provider Fa cility 08-24-2020 influenza, injectabl e, quadrivalent, preservative free [facility] 08-24-2020 influenza, seasonal, injectable Dr. Rg Menchaca Work Phone: [facility] Work Phone: 08-24-2020 influenza virus vaccine, unspecified formulation Luis Eduardo Clemons Jr., MD Work Phone: [facility] 04-07-2018 Influenza virus vaccine W [facility] 03-14-2018 influenza, high dose seasonal, preservative-free La Nena Lala MD Work Phone: [facility] Work Phone: 2017 influenza, high dose seasonal, preservative-free La Nena Lala MD Work Phone: [facility] 05-21-2015 pneumococcal conjuga te vaccine, 13 valent La Nena Lala MD Work Phone: [facility] Payers Date Payer Category Payer Self-pay [id number] 2024 Unknown [id number] 2022 Medicare UHC MEDICARE UHC DUAL COMPLETE HMO POS SNP [id number] 2022-Present [phone] [address] [place] [address] Medicare [id number] 2022 Medicare (Managed Care) [facility] DUAL COMPLETE HMO POS SNP [id number] 2022 Unknown [id number] 2021 Medicaid [facility] MEDICAID MYC ARE [facility] MEDICAID [id number] 2021-Present [phone] [address] [place], [place] [address] Medicaid [id number] 2021 Medicaid [id number] 2021 Unknown [id number] Medicare [id number] Unknown [id number] 2.16.840.1.520154.3.579.2. 462 Unknown [id number] 2.16.840.1.110963.3.579.2. 462 Unknown [id number] 2.16.840.1.309136.3.579.2. 462 Unknown [id number] 2.16.840.1.323341.3.579.2. 462 Unknown [id number] 2.16.840.1.216634.3.579.2. 462 Unknown [id number] 2.16.840.1.407347.3.579.2. 462 Unknown [id number] 2.16.840.1.795966.3.579.2. 462 Unknown [id number] 2.16.840.1.646112.3.579.2. 462 Unknown [id number] 2.16.840.1.432367.3.579.2. 462 Unknown [id number] 2.16.840.1.398008.3.579.2. 462 Unknown [id number] 2.840.1.223915.3.579.2. 462 Unknown [id number] 2.840.1.526996.3.579.2. 462 Unknown [id number] 2.840.1.795996.3.579.2. 462 Unknown [id number] 2.840.1.656635.3.579.2. 462 Unknown [id number] 2.840.1.938261.3.579.2. 462 Unknown [id number] 2.840.1.586778.3.579.2. 462 Unknown [id number] 2.840.1.697550.3.579.2. 462 Unknown [id number] 2.840.1.267425.3.579.2. 462 Unknown [id number] 2.840.1.454244.3.579.2. 462 Unknown [id number] 2.840.1.888805.3.579.2. 462 Unknown [id number] 2.840.1.531212.3.579.2. 462 Unknown [id number] 2.16840.1.442986.3.579.2. 462 Unknown [id number] 2.16.840.1.534872.3.579.2. 462 Unknown [id number] 2.16.840.1.397119.3.579.2. 462 Unknown [id number] 2.16.840.1.925363.3.579.2. 462 Unknown [id number] 2.16.840.1.468356.3.579.2. 462 Unknown [id number] 2.16.840.1.583063.3.579.2. 462 Unknown [id number] 2.16.840.1.276397.3.579.2. 462 Unknown [id number] 2.16.840.1.823506.3.579.2. 462 Unknown [id number] 2.16.840.1.063612.3.579.2. 462 Unknown [id number] 2.16.840.1.354469.3.579.2. 462 Unknown [id number] 2.16.840.1.840494.3.579.2. 462 Unknown [id number] 2.16.840.1.195667.3.579.2. 462 Unknown [id number] 2.16.840.1.365313.3.579.2. 462 Unknown [id number] 2.16.840.1.689859.3.579.2. 462 Unknown [id number] 2.16.840.1.004397.3.579.2. 462 Unknown [id number] 2.16840.1.823315.3.579.2. 462 Unknown [id number] 2.16840.1.837249.3.579.2. 462 Unknown [id number] 2.16840.1.048433.3.579.2. 462 Social History Date Type Detail Facility Start: 08-18-2021 End: 04-28-2022 Tobacco smoking status ARIS Unknown if ever smoked [facility] Start: 11-28-2018 None [facility] Start: 11-28-2018 Prison [facility] Start: 11-28-2018 Non-smoker [facility] Start: 1940 Sex Assigned At Female [facility] Start: 01-07-2018 End: 04-28-2022 Tobacco smoking status NHIS Ex-smoker [facility] Start: 01-07-2018 End: 07-31-2023 Tobacco use and exposure Smokeless tobacco non-user [facility] Start: 1940 Sex Assigned At Not on file [facility] Start: 11-05-2021 End: 04-18-2022 Exposure to SARS-CoV-2 (event) Not sure [facility] History of tobacco use Current smoker [facility] Start: 04-18-2022 End: 02-05-2024 Alcohol intake Ex-drinker (finding) [facility] Start: 04-18-2022 End: 02-05-2024 History of Social function [facility] Start: 04-18-2022 End: 02-05-2024 Tobacco use panel [facility] National Score (1-10 0), lower number is lower risk 70 [facility] Start: 05-31-2022 Gender identity Identifies as female gender (finding) [facility] Start: 05-31-2022 Sexual orientation Heterosexual (fin jamie) [facility] Start: 08-12-2024 End: 09-11-2024 Sex Female (finding) [facility] Medical Equipment Procedure Code Equipment Code Equipment Origin al Text Equipment Identifier Dates Check blood suga r 4 times daily as intructed. Dx: E11.9. Insulin: yes [id number] Start: 01-17-2018 Comment on above: Check blood sugar 4 times daily as intructed. Dx: E11.9. Insulin: yes Functional Status Date Assessment Result Facility 08-19-2021 Functional status Activity Abili ty With Assist of 2 [facility] Work Phone: Mental Status Date Assessment Result Facility 01-08-2025 Cognitive function Awake;Alert;A ppropriate;Follow s Commands [facility] Work Phone: 01-07-2025 Cognitive function Awake;Alert;A ppropriate;Follow s Commands [facility] Work Phone: 01-06-2025 Cognitive function Awake;Alert;A ppropriate;Follow s Commands [facility] Work Phone: 12-03-2024 Cognitive function Awake;Alert;A ppropriate;Follow s Commands [facility] Work Phone: 12-02-2024 Cognitive function Voice/Name [facility] Work Phone: 12-01-2024 Cognitive function Awake;Alert;A ppropriate;Follow s Commands [facility] Work Phone: 11-05-2024 Cognitive function Voice/Name [facility] Work Phone: 11-04-2024 Cognitive function Voice/Name [facility] Work Phone: 11-03-2024 Cognitive function Voice/Name [facility] Work Phone: 10-07-2024 Cognitive function Voice/Name [facility] Work Phone: 10-06-2024 Cognitive function Voice/Name [facility] Work Phone: 09-10-2024 Cognitive function Awake;Alert;A ppropriate;Follow s Commands [facility] Work Phone: 09-09-2024 Cognitive function Awake;Alert;A ppropriate;Follow s Commands [facility] Work Phone: 09-08-2024 Cognitive function Awake;Alert;A ppropriate;Follow s Commands [facility] Work Phone: 08-13-2024 Cognitive function Awake;Alert;A ppropriate;Follow s Commands [facility] Work Phone: 08-12-2024 Cognitive function Awake;Alert;A ppropriate;Follow s Commands [facility] Work Phone: 08-11-2024 Cognitive function Awake;Alert;A ppropriate;Follow s Commands [facility] Work Phone: 07-16-2024 Cognitive function Voice/Name [facility] Work Phone: 07-14-2024 Cognitive function Awake;Alert;A ppropriate;Follow s Commands [facility] Work Phone: 06-18-2024 Cognitive function Awake;Alert;A ppropriate;Follow s Commands [facility] Work Phone: 06-17-2024 Cognitive function Voice/Name [facility] Work Phone: 06-16-2024 Cognitive function Awake;Alert;A ppropriate;Follow s Commands [facility] Work Phone: 05-21-2024 Cognitive function Awake;Alert;A ppropriate;Follow s Commands [facility] Work Phone: 04-23-2024 Cognitive function Awake;Alert;A ppropriate;Follow s Commands [facility] Work Phone: 04-22-2024 Cognitive function Awake;Alert;A ppropriate;Follow s Commands [facility] Work Phone: 04-21-2024 Cognitive function Voice/Name [facility] Work Phone: 09-13-2023 Cognitive function Awake;Alert;A ppropriate;Follow s Commands [facility] Work Phone: 09-12-2023 Cognitive function Level Of Cons ciousness Awake;Alert;Appropriate;Follow s Commands [facility] Work Phone: 09-11-2023 Cognitive function Awake;Alert;A ppropriate;Follow s Commands [facility] Work Phone: 09-10-2023 Cognitive function Voice/Name [facility] Work Phone: 09-09-2023 Cognitive function Awake;Alert;A ppropriate;Follow s Commands [facility] Work Phone: 03-01-2022 Cognitive function Level Of Cons ciousness Awake;Alert;Appropriate;Follow s Commands [facility] Work Phone: 08-30-2021 Cognitive function Level Of Cons ciousness Awake;Alert;Appropriate;Follow s Commands [facility] Work Phone: 08-19-2021 Cognitive function Voice/Name [facility] Work Phone: Clinical Notes 11-15-2021 to 11-11-2024 Patient InstructionsWindy Yuen MD - 11/11/2024 12:00 PM EDTTelephone Encounter - Kellen Duran LPN - 02/06/2024 8:02 AM EDTSWindy malik MD - 02/05/2024 11:24 AM EDT Note Date & Type Note Facility 11-11-2024 Instructions Windy Yuen MD - 11/11/2024 12:38 PM EDT - Continue your IVIG infusions at [facility] as before, with three consecutive treatment [...] the year. Please call my office at [phone] if you need help coordinating your care. documented in this encounter [facility] 11-11-2024 History of Presen t illness Narrative [...] straightening out slightly. She mentions that a block operator advised against surgery due to her age. Romain is currently receiving IVIG therapy at [facility], which began with five days per [...] syndrome Confirmed with qulitative and quantitative testing ([facility]) demonstrating high ab titer som 65 lab [...] 2g/kg IBW) Fax order to Madelaine at [facility] at [phone] RTC 6 months documented in this encounter [facility] 11-11-2024 Note HNO ID: [id number] Author: WINDY YUEN MD Service: ? Author [...] straightening out slightly. She mentions that a block operator advised against surgery due to her age. Romain is currently receiving IVIG therapy at [facility], which began with five days per [...] syndrome Confirmed with qulitative and quantitative testing ([place]) demonstrating high ab titer som 65 lab [...] 2g/kg IBW) Fax order to Madelaine at [facility] at [phone] RTC 6 months [facility] 02-06-2024 Miscellaneous Notes IVIG order was faxed to Madelaine at [facility] at [phone] with confirmation. documented in this encounter [facility] 02-06-2024 Telephone encounter Note IVIG order was faxed to Madelaine at [facility] at [phone] with confirmation. [facility] 02-05-2024 Note HNO ID: [id number] Author: WINDY YUEN MD Service: ? Author Type: Physician Type: Progress Notes Filed: 02/05/2024 11:52 Note Text: Romain is here for follow up; her daughter joins us on the phone for the appointment. She continues on baclofen and lorazepam. She is getting IVIG over 5 days every month at [facility] Had some trouble with the [...] syndrome Confirmed with qulitative and quantitative testing ([place]) demonstrating high ab titer som 65 lab [...] that she can receive the treatments at [facility]. She is now s/p 5 [...] 2g/kg IBW) Fax order to Madelaine at [facility] at [phone] RTC 6 months [facility] 02-05-2024 History of Presen t illness Narrative Images from the original note were not included. Romain is here for follow up; her daughter joins us on the phone for the appointment. She continues on baclofen and lorazepam. She is getting IVIG over 5 days every month at [facility] Had some trouble with the [...] syndrome Confirmed with qulitative and quantitative testing ([place]) demonstrating high ab titer som 65 lab [...] that she can receive the treatments at [facility]. She is now s/p 5 [...] 2g/kg IBW) Fax order to Madelaine at [facility] at [phone] RTC 6 months documented in this encounter [facility] 11-24-2023 Telephone encounter Note Patient's appointment changed from 12/17/23 to 02/05/[address] Yuen being out of the office. Appointment details faxed as requested by eddie Nyla, so patient will have transportation for appointment. Faxed to [facility]: [phone] Confirmation ok. [facility] 11-24-2023 Miscellaneous Notes Patient's appointment changed from 12/17/23 to 02/05/[address] Yuen being out of the office. Appointment details faxed as requested by eddie Nyla, so patient will have transportation for appointment. Faxed to [facility]: [phone] Confirmation ok. documented in this encounter [facility] 10-29-2023 Telephone encounter Note Faxed appointment change/reminder to [facility]: [phone]. Confirmation ok. Appointment date for 12/17/23 arrive by 11:45am. [facility] 10-29-2023 Miscellaneous Notes Faxed appointment change/reminder to [facility]: [phone]. Confirmation ok. Appointment date for 12/17/23 arrive by 11:45am. documented in this encounter [facility] 10-15-2023 Telephone encounter Note Pt daughter would like to speak to Dr Yuen via phone regarding noted changed in mother since starting her injections with her Insulin levels as well as Muscle Spasms [facility] 10-15-2023 Miscellaneous Notes Pt daughter would like to speak to Dr Yuen via phone regarding noted changed in mother since starting her injections with her Insulin levels as well as Muscle Spasms documented in this encounter [facility] 09-18-2023 Telephone encounter Note Spoke to Madelaine and relayed message from provider, she voiced understanding at this time and will let patient and daughter know. [facility] 09-18-2023 Miscellaneous Notes Spoke to Madelaine and [...] tolerates the medication well. Per Madelaine from [facility], this patient's daughter would like to have her IVIG dose changed to a higher dose for a shorter duration. States this was discussed with Dr. Yuen previously. Please advise if this is correct and if so, please call Madelaine back at [phone]. A new order and authorization will be needed. documented in this encounter [facility] 09-18-2023 Telephone encounter Note We should keep [...] and that she tolerates the medication well. [facility] 09-18-2023 Telephone encounter Note Per Madelaine from [facility], this patient's daughter would like to have her IVIG dose changed to a higher dose for a shorter duration. States this was discussed with Dr. Yuen previously. Please advise if this is correct and if so, please call Madelaine back at [phone]. A new order and authorization will be needed. [facility] 08-13-2023 Miscellaneous Notes Faxed office notes, demographic sheet, copy of insurance, we don't have a copy of insurance cards to [phone]. documented in this encounter [facility] 07-31-2023 History of Presen t illness Narrative [...] is able to get the IVIG at [facility]. Office notes and IVIG order was faxed to Madelaine at [facility] at [phone] with confirmation. Our office Spoke to Madelaine and she stated that the patient will need documentation showing a failure or inability to tolerate the baclofen, in order to get approved for Gammagard. And needs progress note faxed to their office at [phone]. It seems like there was a misunderstanding; [...] syndrome Confirmed with qulitative and quantitative testing ([facility]) demonstrating high ab titer som 65 lab [...] that she can receive the treatments at [facility]. Will send off IVIG rx for insurance approval. RTC 3 months documented in this encounter [facility] 03-25-2023 Miscellaneous Notes The listed home phone number for the patient is her daughter Nyla's phone. Nyla was notified of the canceled appointment and new appointment. The daughter was instructed that the patient must have someone accompany her to the appointment. The patient resides at the [facility]. Ph. [phone] I called the [facility] and spoke with Mona and the nurse [...] The appointment reminder was faxed to the [facility]. TC to daughter regarding upcoming appointment with Dr. Clemons. 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 Pt will need to be seen by neuromuscular for treatment and care, per . Samira Vieira LPN documented in this encounter [facility] 07-20-2022 Miscellaneous Notes completed a Virtual Visit with patient and facility. CLOSED Called patients daughter Nyla and left to call back office at [phone]. 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 Nyla [phone] documented in this encounter [facility] 06-12-2022 Miscellaneous Notes Faxed new orders to the [facility] at [phone],transmission ok CLOSED Addended by: LA NENA LALA on: 06/12/2022 01:27 PM Modules accepted: Orders Reviewed the blood sugars. She is having low blood sugars in the morning, and mostly high blood sugars with meals, and especially at bedtime. Please call the alf to let them know of the following [...] Please advise, thanks. documented in this encounter [facility] 06-04-2022 Instructions La Nena Lala MD - 06/04/2022 3:04 PM EST Images from the original note were not included. - Please do blood tests to check TSH, free T4 and A1c, and fax the results to us on [phone] - Please fax the glucose values from the last 2 weeks to us - Do not eat more than 60 g of carbs per meal. documented in this encounter [facility] 06-04-2022 History of Presen t illness Narrative ENDOCRINOLOGY CLINIC NOTE Ms. Mcdermott is a 82 year old female with T1DM and hypothyroidism presented for follow-up of hypothyroidism and diabetes. She presented with her daughter HPI She stays in a alf due to R foot deformity. She saw a block operator before and was told that she had old changes and no intervention was done. They were hoping to see someone for a second opinion to see if they can help with the foot deformity as this is what is keeping her in the alf. She is still complaining of spasm in [...] diet has not been optimal at the alf. A1c: 11/15/21 11:30 Hemoglobin A1C (POCT) 8.1 ! 9.4% in 08/2021 Current regimen: Levemir 29 units in the morning NovoLog based on a sliding scale 1 unit for every 50 starting at 170 Glucose monitoring: She has received the freestyle jeremiah and is being managed by the nurses at the alf. I did not have the glucose data to make changes today Diet: She eats 3 meals but the options are limited in the alf Complications: Retinopathy: 6 months ago. She has [...] bed. She has been staying in a alf for the last couple of years due [...] an A1c check. She has received the [employer] jeremiah and has been happy with the experience overall Hypothyroidism: We will continue levothyroxine 75 mcg daily. Her TSH was slightly suppressed. We will check her TFTs now Once we get the results and the glucose readings, we will contact them to give the instructions. group home phone number is [phone] Some of the above has been copied from prior documentation on 11/15/2021 but foster elements reviewed, confirmed, and/or updated by me (La Nena Lala MD) on 06/04/2022 I spent a total of 40 minutes on the date of the service which included preparing to see the patient, [id number] patient care, completing clinical documentation, obtaining and/or reviewing separately obtained history, and counseling and educating the patient/family/caregiver. Virtual Visit (Audio/Visual)I have discussed the nature of this visit with the patient which will occur via [facility] (Phone, Virtual Visit) and she agrees to proceed with this interaction. La Nena Lala MD documented in this encounter [facility] 04-18-2022 Note HNO ID: [id number] Author: AVELINO Kahn Service: Radiology Author Type: [...] AVELINO Kahn April 18, 2022 3:06 PM [facility] 04-18-2022 History of Presen t illness [...] DM type 1 (diabetes mellitus, type 1) ([facility]) Hypothyroidism Current Outpatient Medications Medication Sig [...] PRN. Maryan Loving DPM, DABPM, FACFAS Pager: [phone] [facility] [place] [facility] and [facility] locations documented in this encounter [facility] 04-18-2022 History of Presen t illness Narrative [...] 2022 3:06 PM documented in this encounter [facility] 11-15-2021 History of Presen t illness Narrative Patient brought some medical records. Sent to scanning. Images from the original note were not included. ENDOCRINOLOGY CLINIC NOTE Ms. Mcdermott is a 81 year old female with T1DM and hypothyroidism self-referred for management of hypothyroidism and diabetes. She presented with her daughter HPI She stays in a alf due to R foot deformity. She saw a block operator before and was told that she had old changes and no intervention was done. They were hoping to see someone for a second opinion to see if they can help with the foot deformity as this is what is keeping her in the alf. Hypothyroidism: levothyroxine 75 mcg daily. No recent [...] I reviewed the glucose data from the alf. The values went from September, and no glucose levels were available from October. In September, her glucose levels fluctuated significantly between 65-398 on variable times of day. There is really no pattern regarding the hypo or hyperglycemia Diet: She eats 3 meals but the options are limited in the alf Complications: Retinopathy: 6 months ago. She has [...] T1DM. She has been staying in a alf for the last couple of years due to an acquired right foot deformity. Her diabetes is poorly controlled as evidenced by the A1c level and the reviewed glucose data. This is most likely due to suboptimal regimen, inconsistencies with diet and timing of insulin administration at the alf. We will continue with the same doses [...] only reason why she is in the alf is because of the right foot deformity I spent a total of 60 minutes on the date of the service which included preparing to see the patient, [id number] patient care, completing clinical documentation, obtaining and/or reviewing separately obtained history, performing a medically appropriate examination, counseling and educating the patient/family/caregiver and ordering medications, tests, or procedures. La Nena Lala MD documented in this encounter [facility] 11-15-2021 Instructions La Nena Lala MD - [...] referred you to orthopedic surgery. Please call [phone] To schedule documented in this encounter [facility] Evaluation note Diagnosis Onset Date SHEKHAR (acute kidney injury) ac shekhar Hyperglycemia due to diabetes mellitus [facility] Work Phone: Evaluation note* Diagnosis Acquired hypothyroidism- Primary Unspecified hypothyroidism Poorly controlled type 1 diabetes mellitus (HCC) Type I (juvenile type) diabetes mellitus without mention of complication, not stated as uncontrolled [facility] Diagnosis Cavovarus deformity of foot, acquired, right- Primary Other osteoporosis without current pathological fracture Hammertoe, bilateral [facility] noteNo assessment information availableWSelect [facility], [facility] Work Phone: Evaluation note* Diagnosis Poorly controlled type 1 diabetes mellitus (HCC)- Primary Type I (juvenile type) diabetes mellitus without mention of complication, not stated as uncontrolled Acquired hypothyroidism Unspecified hypothyroidism [facility]* Diagnosis Controlled type 2 diabetes mellitus without complication, with long-term current use of insulin (HCC) [facility]* 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 Discharge instructions Additional Instructions Please continue your medications as directed by your family doctor and use the Zofran to help control bouts of nausea and vomiting so that you can eat and keep your blood sugar stable. If you have any further concerns please return for repeat evaluationWSelect Medical Special[facility], [facility] Work Phone: Reason for referral (narrative)* Diagnostic Procedure Only (Routine) - Closed Specialty Diagnoses / Procedures Referred By Contac t Referred To Contact XR IMAGING Diagnoses Pain Procedures XR FOOT GENERAL 3V AP/LAT/OBL RIGHT RADEX FOOT COMPLETE MINIMUM 3 VIEWS Maryan Loving DPM [address] [place] [id number] Xr Imaging [facility] Referral ID Status Reason Start Date Expiration Date V isits Requested Visits Authorized [id number] Closed Auto-Generate d Referral 12/04/2021 01/03/2023 1 1 [facility] for referral (narrative)No reason for referral information availableWSelect [facility] Work Phone: Rekffw for visit Narrative* Diagnostic Procedure Only (Routine) - Closed Specialty Diagnoses / Procedures Referred By Contac t Referred To Contact XR IMAGING Diagnoses Pain Procedures XR FOOT GENERAL 3V AP/LAT/OBL RIGHT RADEX FOOT COMPLETE MINIMUM 3 VIEWS Maryan Loving DPM [address] [place] [id number] [place] [address] Referral ID Status Reason Start Date Expiration Date V isits Requested Visits Authorized [id number] Closed Auto-Generate d Referral 12/04/2021 01/03/2023 1 1 [facility] Chief Complaint and Reason for Visit Chief [...] am IVIG December 02, 2024 7:57 am Chief Complaint Admit Date IVIG August [...] am IVIG December 02, 2024 7:57 am IVIG December 03, 2024 8:01 am Chief Complaint Admit Date IVIG September 09, 2024 8:0 1am IVIG September 10, 2024 8:1 0am IVIG October 06, 2024 7:37a m IVIG October 07, 2024 8:14a m IVIG October 08, 2024 8:38a m IVIG November 03, 2024 7:54 am IVIG November 04, 2024 7:49 am IVIG November 05, 2024 8:09 am IVIG December 01, 2024 7:58 am IVIG December 02, 2024 7:57 am IVIG December 03, 2024 8:01 am IVIG January 06, 2025 8: 03am Chief Complaint Admit Date IVIG September 10, 2024 8:1 0am IVIG October 06, 2024 7:37a m IVIG October 07, 2024 8:14a m IVIG October 08, 2024 8:38a m IVIG November 03, 2024 7:54 am IVIG November 04, 2024 7:49 am IVIG November 05, 2024 8:09 am IVIG December 01, 2024 7:58 am IVIG December 02, 2024 7:57 am IVIG December 03, 2024 8:01 am IVIG January 06, 2025 8: 03am IVIG January 07, 2025 7: 43am Chief Complaint Admit Date IVIG October 06, 2024 7:37a m IVIG October 07, 2024 8:14a m IVIG October 08, 2024 8:38a m IVIG November 03, 2024 7:54 am IVIG November 04, 2024 7:49 am IVIG November 05, 2024 8:09 am IVIG December 01, 2024 7:58 am IVIG December 02, 2024 7:57 am IVIG December 03, 2024 8:01 am IVIG January 06, 2025 8: 03am IVIG January 07, 2025 7: 43am IVIG January 08, 2025 7: 38am Family History No Family History Records Found Relationship Condition Age at Onset Recorded Date/T jane Not Specified Cardiac disease Unknown Malignant neoplasm Unknown Advance Directives No Advanced Directives Records Found Advance Directive Response Recorded Date/ Time Living Will No August 18, 2021 6:10pm Power of Steel Tester No August 18 6:10pm Advance Directive Response Recorded Date/ Time Living Will No August 18, 2021 9:27pm Power of Steel Tester No August 18 9:27pm Advance Directive Response Recorded Date/ Time Living Will No August 30, 2021 6:13pm Power of Steel Tester No August 30 6:13pm Advance Directive Response Recorded Date/ Time Name of Medical Power of Steel Tester Nyla Mcnulty April 28, 2022 10:03pm Living Will Yes April 28, 022 10:03pm Power of Steel Tester Yes April 28, 2022 10:03pm Advance Directive Response Recorded Date/ Time Living Will Yes April 28, 2 022 11:03pm Power of Steel Tester Yes April 28, 2022 11:03pm Reason for Referral Specialty Diagnoses / Procedures Referred By Contac t Referred To Contact Orthopedics Diagnoses Acquired hypothyroidism Poorly controlled type 1 diabetes mellitus (HCC) Procedures CONSULT TO ORTHOPAEDICS OFFICE/OUTPATIENT [facility] 60-74 MINUTES La Nena Lala MD [address] [place] [address] Referral ID Status Reason Start Date Expiration Date Visits Requested Visits Authorized [id number] Authorized PCP Requested Referral 11/15/2021 11/15/2022 1 1 Specialty Diagnoses / Procedures Referred By Contac t Referred To Contact Diagnoses Stiff person syndrome Procedures PROVIDER ORDERED FOLLOW UP OFFICE/OUTPATIENT [facility] MDM 60 MINUTES Windy Yuen MD [address] [place] [id number] Referral ID Status Reason Start Date Expiration Date Visits Requested Visits Authorized [id number] Authorized PCP Requested Referral 10/31/2023 07/30/2024 1 [...] or prosecute any alcohol or drug abuse patient.[facility] HealthcareIn the event this information is protected by the Federal Confidentiality of Alcohol and Drug Abuse Patient Records regulations: The Federal rules restrict any use of the information to criminally investigate or prosecute any alcohol or drug abuse patient.[facility] HealthcareIn the event this information is protected by the Federal Confidentiality of Alcohol and Drug Abuse Patient Records regulations: The Federal rules restrict any use of the information to criminally investigate or prosecute any alcohol or drug abuse patient.[facility] HealthcareIn the event this information is protected by the Federal Confidentiality of Alcohol and Drug Abuse Patient Records regulations: The Federal rules restrict any use of the information to criminally investigate or prosecute any alcohol or drug abuse patient.[facility] HealthcareIn the event this information is protected by the Federal Confidentiality of Alcohol and Drug Abuse Patient Records regulations: The Federal rules restrict any use of the information to criminally investigate or prosecute any alcohol or drug abuse patient.[facility] HealthcareIn the event this information is protected by the Federal Confidentiality of Alcohol and Drug Abuse Patient Records regulations: The Federal rules restrict any use of the information to criminally investigate or prosecute any alcohol or drug abuse patient.[facility] HealthcareIn the event this information is protected by the Federal Confidentiality of Alcohol and Drug Abuse Patient Records regulations: The Federal rules restrict any use of the information to criminally investigate or prosecute any alcohol or drug abuse patient.[facility] HealthcareIn the event this information is protected by the Federal Confidentiality of Alcohol and Drug Abuse Patient Records regulations: The Federal rules restrict any use of the information to criminally investigate or prosecute any alcohol or drug abuse patient.[facility] HealthcareIn the event this information is protected by the Federal Confidentiality of Alcohol and Drug Abuse Patient Records regulations: The Federal rules restrict any use of the information to criminally investigate or prosecute any alcohol or drug abuse patient.[facility] HealthcareIn the event this information is protected by the Federal Confidentiality of Alcohol and Drug Abuse Patient Records regulations: The Federal rules restrict any use of the information to criminally investigate or prosecute any alcohol or drug abuse patient.[facility] HealthcareIn the event this information is protected by the Federal Confidentiality of Alcohol and Drug Abuse Patient Records regulations: The Federal rules restrict any use of the information to criminally investigate or prosecute any alcohol or drug abuse patient.[facility] HealthcareIn the event this information is protected by the Federal Confidentiality of Alcohol and Drug Abuse Patient Records regulations: The Federal rules restrict any use of the information to criminally investigate or prosecute any alcohol or drug abuse patient.[facility] HealthcareIn the event this information is protected by the Federal Confidentiality of Alcohol and Drug Abuse Patient Records regulations: The Federal rules restrict any use of the information to criminally investigate or prosecute any alcohol or drug abuse patient.[facility] HealthcareIn the event this information is protected by the Federal Confidentiality of Alcohol and Drug Abuse Patient Records regulations: The Federal rules restrict any use of the information to criminally investigate or prosecute any alcohol or drug abuse patient.[facility] HealthcareIn the event this information is protected by the Federal Confidentiality of Alcohol and Drug Abuse Patient Records regulations: The Federal rules restrict any use of the information to criminally investigate or prosecute any alcohol or drug abuse patient.[facility] HealthcareIn the event this information is protected by the Federal Confidentiality of Alcohol and Drug Abuse Patient Records regulations: The Federal rules restrict any use of the information to criminally investigate or prosecute any alcohol or drug abuse patient.[facility] HealthcareIn the event this information is protected by the Federal Confidentiality of Alcohol and Drug Abuse Patient Records regulations: The Federal rules restrict any use of the information to criminally investigate or prosecute any alcohol or drug abuse patient.[facility] HealthcareIn the event this information is protected by the Federal Confidentiality of Alcohol and Drug Abuse Patient Records regulations: The Federal rules restrict any use of the information to criminally investigate or prosecute any alcohol or drug abuse patient.[facility] Reason for Visit (unrecogniz ed section and [...] Comments Appointment Appointment Update F axed to Wayne at [facility] for 12/17/23 Reason Comments Appointment Update faxed to Sean pink at [facility] for appointment 02/05/24 Reason Comments Follow Up Patient states no ch anges. Reason Comments Orders IVIG INFORMATION SOURCE (unrecogn ized section and content) DATE CREATED AUTHOR 03/15/2022 [facility] DATE CREATED AUTHOR AUTHOR'S ORGANIZ ATION 04/19/2022 [facility] DATE CREATED AUTHOR AUTHOR'S ORGANIZ ATION 11/15/2024 [facility] DATE CREATED AUTHOR AUTHOR'S ORGANIZ ATION 01/30/2025 [facility] Care Teams (unrecognized sec tion and content) Electronic Scale Subassembler Relationship Specialty Start Date End Date Rg Menchaca MD [address] [facility] [address] [place] [address] PCP - General Family Medicine 04/18/22 Electronic Scale Subassembler Relationship Specialty Start Date End Date Rg Menchaca MD [address] [facility] [address] [place], [place] [address] PCP - General Family Medicine 04/18/22 Electronic Scale Subassembler Relationship Specialty Start Date End Date Rg Menchaca MD [address] [facility] [address] [place] [address] PCP - General Family Medicine 04/18/22 Electronic Scale Subassembler Relationship Specialty Start Date End Date Rg Menchaca MD [address] [facility] [address] [place] [address] PCP - General Family Medicine 04/18/22 Electronic Scale Subassembler Relationship Specialty Start Date End Date Rg Menchaca MD [address] [place] [address] [address] [place] [address] PCP - General Family Medicine 04/18/22 Electronic Scale Subassembler Relationship Specialty Start Date End Date Rg Menchaca MD [address] [place] [address] [address] [place] [address] PCP - General Family Medicine 04/18/22 Electronic Scale Subassembler Relationship Specialty Start Date End Date Rg Menchaca MD [address] [place] [address] [address] [place] [address] PCP - General Family Medicine 04/18/22 Team Status: Active Member Role Status Dates Dr. Rg Menchaca MD Family Provider Active Dr. Rg Menchaca MD Primary Care Provider Active Team Status: Inactive Member Role Status Dates Dr. Rg Menchaca MD Primary Care Provider Active [facility] Attending Provider, Referring Provide r Active Electronic Scale Subassembler Relationship Specialty Start Date End Date Rg Menchaca MD [address] [facility] [address] [place] [address] PCP - General Family Medicine 04/18/22 Electronic Scale Subassembler Relationship Specialty Start Date End Date Rg Menchaca MD [address] [facility] [address] [place] [address] PCP - General Family Medicine 04/18/22 Electronic Scale Subassembler Relationship Specialty Start Date End Date Rg Menchaca MD [address] [facility] [address] [place] [address] PCP - [facility] Medicine 04/18/22 Electronic Scale Subassembler Relationship Specialty Start Date End Date Rg Menchaca MD [address] [facility] [address] [place] [address] PCP - [facility] Medicine 04/18/22 Team Status: Active Member Role [...] 22, 2024 End: April 22, 2024 Dr. iWndy Yuen MD Attending Provider Active Start: April [...] November 05, 2024 End: November 05, 2024 Electronic Scale Subassembler Relationship Specialty Start Date End Date Rg Menchaca MD [address] [place] [address] PCP - General Family Medicine 04/18/22 Team [...] December 02, 2024 End: December 02, 2024 Team Status: Inactive Member Role/Relationship Status Dates Dr. Rg Menchaca MD Primary Care Provider Active Start: December 03, 2024 End: December 03, 2024 Dr. Windy Yuen MD Attending Provider Active Start: December 03, 2024 End: December 03, 2024 Dr. Windy Yuen MD Referring Provider Active Start: December 03, 2024 End: December 03, 2024 Team Status: Inactive Member Role/Relationship [...] December 02, 2024 End: December 02, 2024 Team Status: Inactive Member Role/Relationship Status Dates Dr. Rg Menchaca MD Primary Care Provider Active Start: December 03, 2024 End: December 03, 2024 Dr. Windy Yuen MD Attending Provider Active Start: December 03, 2024 End: December 03, 2024 Dr. Windy Yuen MD Referring Provider Active Start: December 03, 2024 End: December 03, 2024 Team Status: Inactive Member Role/Relationship Status Dates Dr. Rg Menchaca MD Primary Care Provider Active Start: January 06, 2025 End: January 06, 2025 Dr. Windy Yuen MD Attending Provider Active Start: January 06, 2025 End: January 06, 2025 Dr. Windy Yuen MD Referring Provider Active Start: January 06, 2025 End: January 06, 2025 Team Status: Inactive Member Role/Relationship Status Dates [...] December 02, 2024 End: December 02, 2024 Team Status: Inactive Member Role/Relationship Status Dates Dr. Rg Menchaca MD Primary Care Provider Active Start: December 03, 2024 End: December 03, 2024 Dr. Windy Yuen MD Attending Provider Active Start: December 03, 2024 End: December 03, 2024 Dr. Windy Yuen MD Referring Provider Active Start: December 03, 2024 End: December 03, 2024 Team Status: Inactive Member Role/Relationship Status Dates Dr. Rg Menchaca MD Primary Care Provider Active Start: January 06, 2025 End: January 06, 2025 Dr. Windy Yuen MD Attending Provider Active Start: January 06, 2025 End: January 06, 2025 Dr. Windy Yuen MD Referring Provider Active Start: January 06, 2025 End: January 06, 2025 Team Status: Inactive Member Role/Relationship Status Dates Dr. Rg Menchaca MD Primary Care Provider Active Start: January 07, 2025 End: January 07, 2025 Dr. Windy Yuen MD Attending Provider Active Start: January 07, 2025 End: January 07, 2025 Dr. Windy Yuen MD Referring Provider Active Start: January 07, 2025 End: January 07, 2025 Team Status: Inactive Member Role/Relationship Status Dates Dr. Rg Menchaca MD Primary Care Provider Active Start: October 06, 2024 End: October 06, 2024 Dr. Windy Yuen MD Attending Provider Active Start: October 06, 2024 End: October 06, 2024 Dr. Wnidy Yuen MD Referring Provider Active Start: October [...] 2024 End: November 05, 2024 Dr. Windy uYen MD Attending Provider Active Start: November 05, [...] December 02, 2024 End: December 02, 2024 Team Status: Inactive Member Role/Relationship Status Dates Dr. Rg Menchaca MD Primary Care Provider Active Start: December 03, 2024 End: December 03, 2024 Dr. Windy Yuen MD Attending Provider Active Start: December 03, 2024 End: December 03, 2024 Dr. Windy Yuen MD Referring Provider Active Start: December 03, 2024 End: December 03, 2024 Team Status: Inactive Member Role/Relationship Status Dates Dr. Rg Menchaca MD Primary Care Provider Active Start: January 06, 2025 End: January 06, 2025 Dr. Windy Yuen MD Attending Provider Active Start: January 06, 2025 End: January 06, 2025 Dr. Windy Yuen MD Referring Provider Active Start: January 06, 2025 End: January 06, 2025 Team Status: Inactive Member Role/Relationship Status Dates Dr. Rg Menchaca MD Primary Care Provider Active Start: January 07, 2025 End: January 07, 2025 Dr. Windy Yuen MD Attending Provider Active Start: January 07, 2025 End: January 07, 2025 Dr. Windy Yuen MD Referring Provider Active Start: January 07, 2025 End: January 07, 2025 Team Status: Inactive Member Role/Relationship Status Dates Dr. Rg Menchaca MD Primary Care Provider Active Start: January 08, 2025 End: January 08, 2025 Dr. Windy Yuen MD Attending Provider Active Start: January 08, 2025 End: January 08, 2025 Dr. Windy Yuen MD Referring Provider Active Start: January 08, 2025 End: January 08, 2025 FOR RECORDS PERTAINING TO PATIENTS WHO ARE [...] BE BASED ON THE PRIMARY CLINICAL RECORDS. [employer] provides no warranty or guarantee of the accuracy or completeness of information in this document.
[2025-02-02] MEDS: 0.9% NaCl IVPB Med Flush (100mL) 15 ML IV (08:08)
[2025-02-02] MEDS: DiphenhydrAMINE 50 MG/ML Syringe 25 MG IV (08:09)
[2025-02-02] MEDS: Immune Globulin 20 gm 20 GM/200 ML VIAL IV (08:34)
[2025-02-02] MEDS: Immune Globulin 10 gm 10 GM/100 ML VIAL IV (11:12)
[2025-02-02] MEDS: Immune Globulin 5 GM 5 GM/50 ML VIAL IV (11:57)
== END 2025-02-02 23:59 | disposition home or self-care (01) ==
LOC: MEDOUTP 07:41
PROVIDERS: PCP Family Medicine; Referring Provider Psychiatry & Neurology Neurology; Visit Provider Psychiatry & Neurology Neurology
DX: G25.82 Stiff-man syndrome (principal)
CPT/HCPCS: 96365; 96366; 96375; A4216; J1568

== ENCOUNTER 2025-02-03 07:26 | Outpatient (CLI) | payer MEDICARE, MEDICAID, SELFPAY ==
--- OUTSIDE RECORDS SUMMARY | 2025-02-03 07:35 | XMS RPT_ITS | CCD ---
Author Organization [facility] Care Team Providers Care Inspecting Engineer Name Role Phone Dr. Rg Menchaca Primary [...] Provider Rg Menchaca MD Primary Care Provider Dr. Rg Menchaca MD Primary Care Provider [phone] Tripp ANDRADE, Dr. Norris Attending Provider [phone] Tripp ANDRADE, Dr. Norris Referring Provider Doyle ANDRADE, Dr. Diez Primary Care Provider [phone] Tripp ANDRADE, Dr. Norris Attending Provider Tripp ANDRADE, Dr. Norris Referring Provider Doyle ANDRADE, Dr. Diez Primary Care Provider Tripp ANDRADE, Dr. Norris Attending Provider Tripp ANDRADE, Dr. Norris Referring Provider Doyle ANDRADE, Dr. Diez Primary Care Provider Tripp ANDRADE, Dr. Norris Attending Provider Tripp ANDRADE, Dr. Norris Referring Provider Doyle ANDRADE, Rg Norris Primary Care Provider [phone] TRIPP, WINDY S Attending Unavailable MENCHACA, RG [...] Provider Tripp ANDRADE, Dr. Norris Attending Provider [phone] Tripp ANDRADE, Dr. Norris Referring Provider Doyle [...] Start: 01-17-2018 [facility] Indications: Type 2 diabetes mellitus with complication, with long-term current use of insulin (HCC) 1 Each four times daily. Dx: E11.9. Insulin: yes 1 Each 01/17/2018 Active Start: 01-17-2018 Blood-Glucose Meter (RELION PRIME METER) [facility] Indications: Type 2 diabetes mellitus with complication, [...] mg PO and acetaminophen [address] [place]. [address] mL 11 02/05/2024 02/05/2024 Discontinued 3 ml [...] Flextouch U100 Insulin) 100 UNITS/ML insulin pen (12 sources) Start: 04-21-2018 Insulin Detemir U-100 (Levemir [...] 2021 8:20pm loratadine 10 mg oral tablet (10 sources) Start: 5 take 1 tablet by [...] portion Mineral Oil (Fleet Mineral Oil) enema (7 sources) Start: 09-09-2023 Mineral Oil (F leet [...] CNOV Office Visit ([facility] ) ROMAIN MCDERMOTT ([id number]) 1940 F Date Time Provider Department 11/11/24 12:00 PM WINDY YUEN [facility] During your visit today, we recorded [...] straightening out slightly. She mentions that a student support advisor advised against surgery due to her age. Romain is currently receiving IVIG therapy at [facility], which began with five days per [...] syndrome Confirmed with qulitative and quantitative testing ([facility]) demonstrating high ab titer som 65 lab [...] 2g/kg IBW) Fax order to Madelaine at [facility] at [phone] RT 6 months Windy Yuen MD 11/11/2024 12:38 PM Signed - Continue your IVIG infusions at [facility] as before, with three consecutive treatment days [...] the year. Please call my office at [phone] if you need help coordinating your care. [...] 1050 mLRfl: 5 PROVIDER ORDERED FOLLOW UP [[id number]] Order #: [id number]: 1 FUTURE Prescriptions as of 11/11/2024 - LANTUS SOLOSTAR U-100 INSULIN 100 unit/mL (3 mL) - immune globulin (human) (IgG) 35 g in empty bag Total Volume 350 mL (GAMMAGARD) Inject 350 mL intrave (more content not included)... Normal [facility] 02[facility]2024 [facility]) ROMAIN MCDERMOTT ([id number]) 1940 F Date Time Provider Department 02/06/24 WINDY YUEN [facility] During your visit today, we recorded the following information about you: Kellen Duran LPN 02/06/2024 8:05 AM Signed IVIG order was faxed to Madelaine at [facility] at [phone] with confirmation. Kellen Duran LPN 02/12/2024 2:00 PM Signed [facility] needed clarification to the IVIG order that was previously sent, completed by Dr. Yuen and re-faxed to them at [phone] with confirmation. Allergies As of Date: 02/06/2024 (No Known Allergies) Date Reviewed: 02/05/2024 Reviewed by: Shira Hager LPN - Fully Assessed Reason for Visit: Orders [181] Cmt: IVIG Prescriptions as of 02/12/2024 - [...] Status:Closed by KELLEN DURAN on 02/06/24 [facility] CNOVon 02-05-2024 CNOV Office Visit ([facility] ) ROMAIN MCDERMOTT ([id number]) 1940 F Date Time Provider Department 02/05/24 11:30 AM WINDY YUEN [facility] During your visit today, we recorded the following information about you: Pulse Blood pressure 81/minute 116/68 Windy Yuen MD 02/05/2024 11:52 AM Signed Romain is here for follow up; her daughter joins us on the phone for the appointment. She continues on baclofen and lorazepam. She is getting IVIG over 5 days every month at [facility] Had some trouble with the last [...] syndrome Confirmed with qulitative and quantitative testing ([facility]) demonstrating high ab titer som 65 lab [...] that she can receive the treatments at [facility]. She is now s/p 5 monthly [...] 2g/kg IBW) Fax order to Madelaine at [facility] at [phone] RTC 6 months Allergies As of Date: [...] 2018 12:38pm (more content not included)... Normal [facility] Brian 11-24-2023 [facility] ROMAIN MCDERMOTT ([id number]) 1940 F Date Time Provider Department 11/24/23 WINDY YUEN [facility] During your visit today, we recorded the following information about you: Naif Oates 11/24/2023 3:16 PM Signed Patient's appointment changed from 12/17/23 to 02/05/[address] Yuen being out of the office. Appointment details faxed as requested by daughter, Nyla, so patient will have transportation for appointment. Faxed to [facility]: [phone] Confirmation ok. Allergies As of Date: 11/24/2023 (No Known Allergies) Date Reviewed: 07/31/2023 Reviewed by: Shruthi Soliz LPN - Fully Assessed Reason for Visit: Appointment [186] Cmt: Update faxed to [facility] for appointment 02/05/24 Prescriptions as of [...] Status:Closed by NAIF OATES on 11/24/23 Normal [facility] Glucose Glucometer (BldC) [M ass/Vol]on 04-29-2022 Glucose [Mass/Vol] 94 mg/dL 74-106 [facility] Work Phone: Comment on above: MANAGEMENT OF PATIEN T CARE PER NURSING PROTOCOL Absolute lymphocyte counton 04-28-2022 Lymphocytes Auto (Unsp spec) [#/Vol] 2.37 10*3/uL 0.83-4.51 [facility] Work Phone: Basophil percentageon 2021 Basophils/100 WBC (Bld) 0.3 % 0-1 [facility] Work Phone: Chloride [Moles/Vol] 102 mmol/L 98-107 [facility] Work Phone: Eosinophils/100 WBC (Bld) 0.1 % 0-5 [facility] Work Phone: Glucose [Mass/Vol] 112 mg/dL 74-106 [facility] Work Phone: Comment on above: Fasting Glucose resu lt from 100 to 125 mg/dL suggests IMPAIRED HOMEOSTASIS per A.D.A. criteria. Neutrophils (Bld) [#/Vol] 8.6 10*3/uL 2.0-7.7 [facility] Work Phone: Neutrophils/100 WBC (Bld) 74.7 % 47-70 [facility] Work Phone: Potassium [Moles/Vol] 5.4 mmol/L 3.5-5.1 [facility] Work Phone: Sodium [Moles/Vol] 137 mmol/L 136-145 [facility] Work Phone: WBC (Bld) [#/Vol] 11.5 10*3/uL 4.4-11.0 [facility] Work Phone: Blood erythrocytes count (nu mber/volume)on 04-28-2022 RBC (Bld) [#/Vol] 4.65 10*6/uL 4.2-5.4 [facility] Work Phone: Blood hemoglobin measurement (mass/volume)on 04-28-2022 Hemoglobin (Bld) [Mass/Vol] 13.2 g/dL 12.0-15.0 [facility] Work Phone: Blood lymphocytes/100 leukoc yteson 04-28-2022 Lymphocytes/100 WBC (Bld) 20.6 % 19-41 [facility] Work Phone: Blood monocytes/100 leukocyt eson 04-28-2022 Monocytes/100 WBC (Bld) 3.0 % 0-10 [facility] Work Phone: Blood platelet mean volumeon 04-28-2022 Platelet mean volume (Bld) [Entitic vol] 9.7 fL 6.2-12.0 [facility] Work Phone: Determination of erythrocyte mean corpuscular volume (MCV)on 04-28-2022 MCV (RBC) [Entitic vol] 88.8 fL 81-99 [facility] Work Phone: Hematocrit Auto (Bld) [Volum e fraction]on 04-28-2022 Hematocrit (Bld) [Volume fraction] 41.3 % 37-47 [facility] Work Phone: Laboratory - Chemistry and C hemistry - challengeon 04-28-2022 CO2 [Moles/Vol] 31.0 mmol/L 21.0-32.0 [facility] Work Phone: Magnesium [Mass/Vol] 2.0 mg/dL 1.6-2.6 [facility] Work Phone: Urea nitrogen/Creatinine [Mass ratio] 33.5 mg/mg 10-20 [facility] Work Phone: Laboratory - Hematology and Cell countson 04-28-2022 Erythrocyte distribution width (RBC) [Entitic vol] 44.3 fL 35.1-43.9 [facility] Work Phone: Erythrocyte distribution width (RBC) [Ratio] 13.6 % 11.6-14.6 [facility] Work Phone: Immature granulocytes/100 WBC (Bld) 1.300 % 0.0-0.9 [facility] Work Phone: Comment on above: IG% - Immature Granu locytes (promyelocytes, myelocytes and metamyelocytes) > 1% indicates that a LEFT SHIFT is Present. MCH (RBC) [Entitic mass] 28.4 pg 27.0-32.0 [facility] Work Phone: Nucleated RBC/100 WBC (Bld) [Ratio] 0 % 0-5 [facility] Work Phone: MCHC Auto (RBC) [Mass/Vol]on 04-28-2022 MCHC (RBC) [Mass/Vol] 32.0 g/dL 32-36 [facility] Work Phone: No Panel Informationon 04-28 Estimated Creatinine Clearance Calc 37.12 ml/min [facility] Work Phone: Estimated GFR (MDRD) Amer 118 mL/min >60 [facility] Work Phone: Comment on above: GFR Calc Estimated GFR (MDRD) Non-Af Amer 97 mL/min >60 [facility] Work Phone: Comment on above: Non- GFR Calc Platelets bldon 04-28-2022 Platelets (Bld) [#/Vol] 251 10*3/uL 150-450 [facility] Work Phone: Serum or plasma calcium roger urement (mass/volume)on 04-28-2022 Calcium [Mass/Vol] 9.3 mg/dL 8.5-10.1 [facility] Work Phone: Serum or plasma creatinine m easurement (mass/volume)on 04-28-2022 Creatinine [Mass/Vol] 0.63 mg/dL 0.55-1.02 [facility] Work Phone: Comment on above: The validity of the calculated GFR & GFRAA in patients over 70 years has not been determined. Clinical correlation is essential. Serum or plasma urea nitroge n measurement (mass/volume)on 04-28-2022 Urea nitrogen [Mass/Vol] 21 mg/dL 7-18 [facility] Work Phone: Thin prep Papanicolaou smear with manual screeningon 04-28-2022 Thin prep Papanicolaou smear with manual screening 4 5-15 [facility] Work Phone: XR Foot - right AP and Later al and obliqueon 04-19-2022 IMPRESSION: Unchanged deformity of the right foot, no acute bony process is identified. Lens Cleaner: YOBANY Transcribe Date/Time: Apr 19 2022 7:25A Dictated by : LESA MCLAUGHLIN MD This examination was interpreted and the report reviewed and electronically signed by: LESA MCLAUGHLIN MD on Apr 19 2022 7:27AM [facility] * * *Final Report* * * DATE OF EXAM: Apr 18 2022 3:07PM MDO 5337 - XR FOOT 3V AP/LAT/OBL RT / PROCEDURE REASON: [id number] * * * * Physician Interpretation * * * * HISTORY: RIGHT FOOT PAIN. Pain . TECHNIQUE: XR FOOT 3V AP/LAT/OBL RT Laterality: RIGHT Number of different views (projections): 3 COMPARISON: February 2018 RESULT: Equinovarus deformity again identified. Bones are osteoporotic unchanged. No fracture. Joint spaces are grossly maintained. [facility] Provider, [facility] - 04/19/2022 * * *Final Report* * * DATE OF EXAM: Apr 18 2022 3:07PM MDO 5337 - XR FOOT 3V AP/LAT/OBL RT / PROCEDURE REASON: [id number] * * * * Physician Interpretation * * * * HISTORY: RIGHT FOOT PAIN. Pain . TECHNIQUE: XR FOOT 3V AP/LAT/OBL RT Laterality: RIGHT Number of different views (projections): 3 COMPARISON: February 2018 RESULT: Equinovarus deformity again identified. Bones are osteoporotic unchanged. No fracture. Joint spaces are grossly maintained. IMPRESSION IMPRESSION: Unchanged deformity of the right foot, no acute bony process is identified. Lens Cleaner: PSCB Transcribe Date/Time: Apr 19 2022 7:25A Dictated by : LESA MCLAUGHLIN MD This examination was interpreted and the report reviewed and electronically signed by: LESA MCLAUGHLIN MD on Apr 19 2022 7:27AM [facility] XR Foot - right AP and Later al and obliqueOrdered By: [facility] Provider on 04-19-2022 [facility] XR FOOT 3V AP/LAT/OBL RTon 06-18-2021 XR FOOT 3V AP/LAT/OBL RT * * *Final Report* * * DATE OF EXAM: Apr 18 2022 3:07PM MDO 5337 - XR FOOT 3V AP/LAT/OBL RT / PROCEDURE REASON: [id number] * * * * Physician Interpretation * * * * HISTORY: RIGHT FOOT PAIN. Pain . TECHNIQUE: XR FOOT 3V AP/LAT/OBL RT Laterality: RIGHT Number of different views (projections): 3 COMPARISON: February 2018 RESULT: Equinovarus deformity again identified. Bones are osteoporotic unchanged. No fracture. Joint spaces are grossly maintained. IMPRESSION: Unchanged deformity of the right foot, no acute bony process is identified. Lens Cleaner: PSCB Transcribe Date/Time: Apr 19 2022 7:25A Dictated by : LESA MCLAUGHLIN MD This examination was interpreted and the report reviewed and electronically signed by: LESA MCLAUGHLIN MD on Apr 19 2022 7:27AM EST [id number] N [facility] XR Foot - right AP and Later al and obliqueon 04-18-2022 Radiology Study observation (narrative) [facility] URINE CULTURE,BACTERIALon URINE CULTURE,BACTERIAL PATIENT: ROMAIN MCDERMOTT [place] [facility] [place]ILL#: [id number] : 44 AGE: SEX: F ORDERED BY: RG MENCHACA SOURCE: URINE COLLECTED: 03/12/22 13:05 ANTIBIOTICS AT [place].: RECEIVED : 03/13/22 23:52 SITE: Clean Catch/Voided R E S U L T S URINE CULTURE,BACTERIAL FINAL 03/14/22 18:39 MULTIPLE ORGANISMS PRESENT, PROBABLE CONTAMINATION PLEASE REPEAT CULTURE. Normal [facility] Comment on above: Performed By: #### U [facility] #### [facility] [address] [place] [address] URINE CULTURE,BACTERIALon URINE CULTURE,BACTERIAL PATIENT: ROMAIN MCDERMOTT LOCATION: [facility] BILL#: [id number] : 44 AGE: SEX: F ORDERED BY: RG MENCHACA SOURCE: URINE COLLECTED: 03/08/22 05:42 ANTIBIOTICS AT [place].: RECEIVED : 03/08/22 20:26 SITE: Unspecified R E S U L T S URINE CULTURE,BACTERIAL FINAL 03/09/22 12:43 MULTIPLE ORGANISMS PRESENT, PROBABLE CONTAMINATION PLEASE REPEAT CULTURE. Normal [facility] Comment on above: Performed By: #### U RINC #### [facility] [address] [place] [address] Absolute lymphocyte counton 03-01-2022 Lymphocytes Auto (Unsp spec) [#/Vol] 2.41 10*3/uL 0.83-4.51 [facility] Work Phone: Basophil percentageon 2021 Basophils/100 WBC (Bld) 0.5 % 0-1 [facility] Work Phone: Chloride [Moles/Vol] 101 mmol/L 98-107 [facility] Work Phone: Eosinophils/100 WBC (Bld) 1.7 % 0-5 [facility] Work Phone: Glucose [Mass/Vol] 237 mg/dL 74-106 [facility] Work Phone: Comment on above: Glucose result great er than or equal to 200 mg/dLsuggests DIABETES MELLITUS per A.D.A. criteria. Neutrophils (Bld) [#/Vol] 6.7 10*3/uL 2.0-7.7 [facility] Work Phone: Neutrophils/100 WBC (Bld) 66.4 % 47-70 [facility] Work Phone: Potassium [Moles/Vol] 4.4 mmol/L 3.5-5.1 [facility] Work Phone: Sodium [Moles/Vol] 136 mmol/L 136-145 [facility] Work Phone: WBC (Bld) [#/Vol] 10.0 10*3/uL 4.4-11.0 [facility] Work Phone: Blood erythrocytes count (nu mber/volume)on 03-01-2022 RBC (Bld) [#/Vol] 4.90 10*6/uL 4.2-5.4 [facility] Work Phone: Blood hemoglobin measurement (mass/volume)on 03-01-2022 Hemoglobin (Bld) [Mass/Vol] 14.0 g/dL 12.0-15.0 [facility] Work Phone: Blood lymphocytes/100 leukoc yteson 03-01-2022 Lymphocytes/100 WBC (Bld) 24.0 % 19-41 [facility] Work Phone: Blood monocytes/100 leukocyt eson 03-01-2022 Monocytes/100 WBC (Bld) 6.6 % 0-10 [facility] Work Phone: Blood platelet mean volumeon 03-01-2022 Platelet mean volume (Bld) [Entitic vol] 10.1 fL 6.2-12.0 [facility] Work Phone: Determination of erythrocyte mean corpuscular volume (MCV)on 03-01-2022 MCV (RBC) [Entitic vol] 86.9 fL 81-99 [facility] Work Phone: Hematocrit Auto (Bld) [Volum e fraction]on 03-01-2022 Hematocrit (Bld) [Volume fraction] 42.6 % 37-47 [facility] Work Phone: Laboratory - Chemistry and C hemistry - challengeon 03-01-2022 CO2 [Moles/Vol] 27.0 mmol/L 21.0-32.0 [facility] Work Phone: Urea nitrogen/Creatinine [Mass ratio] 23.0 mg/mg 10-20 [facility] Work Phone: Laboratory - Hematology and Cell countson 03-01-2022 Erythrocyte distribution width (RBC) [Entitic vol] 44.4 fL 35.1-43.9 [facility] Work Phone: Erythrocyte distribution width (RBC) [Ratio] 13.8 % 11.6-14.6 [facility] Work Phone: Immature granulocytes/100 WBC (Bld) 0.800 % 0.0-0.9 [facility] Work Phone: Comment on above: IG% - Immature Granu locytes (promyelocytes, myelocytes and metamyelocytes) > 1% indicates that a LEFT SHIFT is Present. MCH (RBC) [Entitic mass] 28.6 pg 27.0-32.0 [facility] Work Phone: Nucleated RBC/100 WBC (Bld) [Ratio] 0 % 0-5 [facility] Work Phone: MCHC Auto (RBC) [Mass/Vol]on 03-01-2022 MCHC (RBC) [Mass/Vol] 32.9 g/dL 32-36 [facility] Work Phone: No Panel Informationon 03-01 Estimated Creatinine Clearance Calc 37.74 ml/min [facility] Work Phone: Estimated GFR (MDRD) Amer 69 mL/min >60 [facility] Work Phone: Comment on above: GFR Calc Estimated GFR (MDRD) Non-Af Amer 57 mL/min >60 [facility] Work Phone: Comment on above: Non- GFR Calc Platelets bldon 03-01-2022 Platelets (Bld) [#/Vol] 228 10*3/uL 150-450 [facility] Work Phone: Serum or plasma acetone roger urement (mass/volume)on 03-01-2022 Acetone [Mass/Vol] Negative NEG [facility] Work Phone: Serum or plasma calcium roger urement (mass/volume)on 03-01-2022 Calcium [Mass/Vol] 10.1 mg/dL 8.5-10.1 [facility] Work Phone: Serum or plasma creatinine m easurement (mass/volume)on 03-01-2022 Creatinine [Mass/Vol] 1.00 mg/dL 0.55-1.02 [facility] Work Phone: Comment on above: The validity of the calculated GFR & GFRAA in patients over 70 years has not been determined. Clinical correlation is essential. Serum or plasma urea nitroge n measurement (mass/volume)on 03-01-2022 Urea nitrogen [Mass/Vol] 23 mg/dL 7-18 [facility] Work Phone: Thin prep Papanicolaou smear with manual screeningon 03-01-2022 Thin prep Papanicolaou smear with manual screening 10-01 [facility] Work Phone: C peptide SerPl-mCncon 11-15 C peptide [Mass/Vol] <0.20 Low 0.81-3.85 [facility] Comment on above: Order Comment: Malini solorio Type: BLOOD SPECIMEN Ordering Facility: [facility] Address: [address] [place] [address] Result Comment: Resu lt rechecked. Performed By: #### 1 986-9 #### [facility] CLIA [id number] [address] [place] [address] [place] GAD65 Ab Ser-aCncon 11-16-19 22 Glutamate decarboxylase 65 Ab Qn (S) >120.0 High <=5.0 [facility] Comment on above: Order Comment: Malini solorio Type: BLOOD SPECIMEN Ordering Facility: [facility] Address: [address] [place] [address] Result Comment: Anti -glutamic acid decarboxylase antibody [...] is required. Performed By: #### I NSKATIE, 48261-1 #### [facility] CLIA [id number] [address] [place] [address] [place] GLUCOSE RANDOM BLDon 022 Glucose [Mass/Vol] 94 mg/dL 74 - 99 mg/dL [facility] Glucose SerPl-mCncon 022 Glucose [Mass/Vol] 94 mg/dL Normal 74-99 [facility] Comment on above: Order Comment: Malini solorio Type: BLOOD SPECIMEN Ordering Facility: [facility] Address: [address] [place], [place] [id number] Result Comment: The [place] Diabetes [employer] (ADA) provides guidance for cutoff [...] Standards of Medical Care in Diabetes 2016, [place] [employer]. Diabetes Care. 2016.39(Suppl 1). Performed By: #### 2 345-7, 3016-3 #### [facility] CLIA [id number] [address] [place] [address] [place] Glutamate decarboxylase 65 A b Qn (S)on 11-15-2021 GLUTAMIC ACID DECARBOXYLAS AB QUALITATIVE Positive Abnormal Negative [facility] Comment on above: Order Comment: Malini solorio Type: BLOOD SPECIMEN Ordering Facility: [facility] Address: [address] [place], [place] [id number] Performed By: #### I NSLAB, 96766-2 #### [facility] CLIA [id number] [address] [place] [address] [place] HEMOGLOBIN A1C (POC)on 11-15 HbA1c (Bld) [Mass fraction] 8.1 % Abnormal 4.2 - 5.6 % [facility] INSULIN ANTIBODY BLDon 11-15 Insulin Ab Qn (S) <0.4 Normal <0.4 [facility] Comment on above: Order Comment: Malini solorio Type: BLOOD SPECIMEN Ordering Facility: [facility] Address: [address] [place], [place] [id number] Result Comment: Anti -insulin antibody test is used as an aid in diagnosis and prognosis of autoimmune diabetes mellitus in combination with other tests such as anti-GAD65 and anti-IA-2 antibody. A single negative result cannot rule out autoimmune diabetes mellitus. The test is not reliable in patients who had previously received exogenous insulin. Clinical correlation is required. Performed By: #### I NSLAB, 21860-9 #### [facility] CLIA [id number] [address] [place] [address] [place] INSULIN ANTIBODY, QUALITATIVE Negative Normal Negative [facility] Comment on above: Order Comment: Malini solorio Type: BLOOD SPECIMEN Ordering Facility: [facility] Address: [address] [place] [address] Performed By: #### I NSLAB, 88132-5 #### [facility] CLIA [id number] [address] [place] [address] [place] INSULINOMA ASSOCIATED ANTIBO DY 2on 11-15-2021 IA 2 ANTIBODY BLOOD <5.4 Normal <7.5 [facility] Comment on above: Order Comment: Malini solorio Type: BLOOD SPECIMEN Ordering Facility: [facility] Address: [address] [place] [address] Result Comment: Anti -insulinoma associated antigen 2 (IA-2) antibody test is used as an aid in diagnosis of type I diabetes mellitus, to predict the risk of progression to type I diabetes mellitus among susceptible individuals, and to predict the necessity of insulin therapy in adult-onset diabetes mellitus. Clinical correlation is required. Performed By: #### I A2AB #### [facility] CLIA [id number] [address] [place] [address] OF [place] ISLET CELL ABon 11-15-2021 ISLET CELL AB <1:4 Normal <1:4 [facility] Comment on above: Order Comment: Malini solorio Type: BLOOD SPECIMEN Ordering Facility: [facility] Address: [address] [place] [address] Result Comment: INTE RPRETIVE INFORMATION: Islet Cell [...] developed and its performance characteristics determined by [facility]. It has not been cleared or approved by the [place] Food and Drug Administration. This test was performed in a CLIA certified laboratory and is intended for clinical purposes. Performed By: [facility] [address] [place] [address] Manager Pharmacy: Abdirizak Quintana MD, PhD Performed By: #### I SLET #### [facility] CLIA [id number] [address] [place] [address] T4 Free SerPl-mCncon 022 Free T4 [Mass/Vol] 1.9 ng/dL High 0.9-1.7 [facility] Comment on above: Order Comment: Speci men Type: BLOOD SPECIMEN Ordering Facility: [facility] Address: [address] [place] [address] Performed By: #### 3 024-7 #### [facility] CLIA [id number] [address] [place] [address] [place] TSH BLDon 11-15-2021 TSH Qn 0.073 m[IU]/L Low 0.270 - 4.200 mIU/L [facility] TSH SerPl-aCncon 11-15-2021 TSH Qn 0.073 m[IU]/L Low 0.270-4.200 [facility] Comment on above: Order Comment: Speci lyndsey Type: BLOOD SPECIMEN Ordering Facility: [facility] Address: [address] [place] [address] Performed By: #### 2 345-7, [id number] #### [facility] CLIA [id number] [address] [place], [place] [id number] [place] [address] [place] Absolute lymphocyte counton 08-30-2021 Lymphocytes Auto (Unsp spec) [#/Vol] 2.76 10*3/uL 0.83-4.51 [facility] Work Phone: Basophil percentageon 2021 Basophils/100 WBC (Bld) 0.5 % 0-1 [facility] Work Phone: Chloride [Moles/Vol] 104 mmol/L 98-107 [facility] Work Phone: Eosinophils/100 WBC (Bld) 1.3 % 0-5 [facility] Work Phone: Glucose [Mass/Vol] 205 mg/dL 74-106 [facility] Work Phone: Comment on above: Glucose result great er than or equal to 200 mg/dLsuggests DIABETES MELLITUS per A.D.A. criteria. Neutrophils (Bld) [#/Vol] 10.9 10*3/uL 2.0-7.7 [facility] Work Phone: Neutrophils/100 WBC (Bld) 70.9 % 47-70 [facility] Work Phone: Potassium [Moles/Vol] 4.2 mmol/L 3.5-5.1 [facility] Work Phone: Sodium [Moles/Vol] 138 mmol/L 136-145 [facility] Work Phone: WBC (Bld) [#/Vol] 15.4 10*3/uL 4.4-11.0 [facility] Work Phone: Blood erythrocytes count (nu mber/volume)on 08-30-2021 RBC (Bld) [#/Vol] 4.32 10*6/uL 4.2-5.4 [facility] Work Phone: Blood hemoglobin measurement (mass/volume)on 08-30-2021 Hemoglobin (Bld) [Mass/Vol] 12.9 g/dL 12.0-15.0 [facility] Work Phone: Blood lymphocytes/100 leukoc yteson 08-30-2021 Lymphocytes/100 WBC (Bld) 18.0 % 19-41 [facility] Work Phone: Blood monocytes/100 leukocyt eson 08-30-2021 Monocytes/100 WBC (Bld) 7.5 % 0-10 [facility] Work Phone: Blood platelet mean volumeon 08-30-2021 Platelet mean volume (Bld) [Entitic vol] 10.7 fL 6.2-12.0 [facility] Work Phone: Determination of erythrocyte mean corpuscular volume (MCV)on 08-30-2021 MCV (RBC) [Entitic vol] 88.0 fL 81-99 [facility] Work Phone: Hematocrit Auto (Bld) [Volum e fraction]on 08-30-2021 Hematocrit (Bld) [Volume fraction] 38.0 % 37-47 [facility] Work Phone: Laboratory - Chemistry and C hemistry - challengeon 08-30-2021 CO2 [Moles/Vol] 26.0 mmol/L 21.0-32.0 [facility] Work Phone: Urea nitrogen/Creatinine [Mass ratio] 20.2 mg/mg 10-20 [facility] Work Phone: Laboratory - Hematology and Cell countson 08-30-2021 Erythrocyte distribution width (RBC) [Entitic vol] 46.1 fL 35.1-43.9 [facility] Work Phone: Erythrocyte distribution width (RBC) [Ratio] 14.4 % 11.6-14.6 [facility] Work Phone: Immature granulocytes/100 WBC (Bld) 1.800 % 0.0-0.9 [facility] Work Phone: Comment on above: IG% - Immature Granu locytes (promyelocytes, myelocytes and metamyelocytes) > 1% indicates that a LEFT SHIFT is Present. MCH (RBC) [Entitic mass] 29.9 pg 27.0-32.0 [facility] Work Phone: Nucleated RBC/100 WBC (Bld) [Ratio] 0 % 0-5 [facility] Work Phone: MCHC Auto (RBC) [Mass/Vol]on 08-30-2021 MCHC (RBC) [Mass/Vol] 33.9 g/dL 32-36 [facility] Work Phone: No Panel Informationon 08-30 Estimated Creatinine Clearance Calc 27.76 ml/min [facility] Work Phone: Estimated GFR (MDRD) Amer 54 mL/min >60 [facility] Work Phone: Comment on above: GFR Calc Estimated GFR (MDRD) Non-Af Amer 44 mL/min >60 [facility] Work Phone: Comment on above: Non- GFR Calc Platelets bldon 08-30-2021 Platelets (Bld) [#/Vol] 236 10*3/uL 150-450 [facility] Work Phone: Serum or plasma calcium roger urement (mass/volume)on 08-30-2021 Calcium [Mass/Vol] 9.5 mg/dL 8.5-10.1 [facility] Work Phone: Serum or plasma creatinine m easurement (mass/volume)on 08-30-2021 Creatinine [Mass/Vol] 1.24 mg/dL 0.55-1.02 [facility] Work Phone: Comment on above: The validity of the calculated GFR & GFRAA in patients over 70 years has not been determined. Clinical correlation is essential. Serum or plasma urea nitroge n measurement (mass/volume)on 08-30-2021 Urea nitrogen [Mass/Vol] 25 mg/dL 7-18 [facility] Work Phone: Thin prep Papanicolaou smear with manual screeningon 08-30-2021 Thin prep Papanicolaou smear with manual screening 8 5-15 [facility] Work Phone: Absolute lymphocyte counton 08-19-2021 Lymphocytes Auto (Unsp spec) [#/Vol] 2.66 10*3/uL 0.83-4.51 [facility] Work Phone: Basophil percentageon 2021 Chloride [Moles/Vol] 108 mmol/L 98-107 [facility] Work Phone: Glucose [Mass/Vol] 86 mg/dL 74-106 [facility] Work Phone: Potassium [Moles/Vol] 3.6 mmol/L 3.5-5.1 [facility] Work Phone: Sodium [Moles/Vol] 137 mmol/L 136-145 [facility] Work Phone: Basophils/100 WBC (Bld) 0.4 % 0-1 [facility] Work Phone: Eosinophils/100 WBC (Bld) 0.4 % 0-5 [facility] Work Phone: Neutrophils (Bld) [#/Vol] 6.8 10*3/uL 2.0-7.7 [facility] Work Phone: Neutrophils/100 WBC (Bld) 66.0 % 47-70 [facility] Work Phone: WBC (Bld) [#/Vol] 10.3 10*3/uL 4.4-11.0 [facility] Work Phone: Blood erythrocytes count (nu mber/volume)on 08-19-2021 RBC (Bld) [#/Vol] 3.91 10*6/uL 4.2-5.4 [facility] Work Phone: Blood hemoglobin measurement (mass/volume)on 08-19-2021 Hemoglobin (Bld) [Mass/Vol] 11.3 g/dL 12.0-15.0 [facility] Work Phone: Blood lymphocytes/100 leukoc yteson 08-19-2021 Lymphocytes/100 WBC (Bld) 25.9 % 19-41 [facility] Work Phone: Blood monocytes/100 leukocyt eson 08-19-2021 Monocytes/100 WBC (Bld) 6.9 % 0-10 [facility] Work Phone: Blood platelet mean volumeon 08-19-2021 Platelet mean volume (Bld) [Entitic vol] 11.1 fL 6.2-12.0 [facility] Work Phone: Determination of erythrocyte mean corpuscular volume (MCV)on 08-19-2021 MCV (RBC) [Entitic vol] 85.9 fL 81-99 [facility] Work Phone: Glucose Glucometer (BldC) [M ass/Vol]on 08-19-2021 Glucose [Mass/Vol] 252 mg/dL 74-106 [facility] Work Phone: Comment on above: MANAGEMENT OF PATIEN T CARE PER NURSING PROTOCOL Hematocrit Auto (Bld) [Volum e fraction]on 08-19-2021 Hematocrit (Bld) [Volume fraction] 33.6 % 37-47 [facility] Work Phone: Laboratory - Chemistry and C hemistry - challengeon 08-19-2021 CO2 [Moles/Vol] 23.0 mmol/L 21.0-32.0 [facility] Work Phone: Urea nitrogen/Creatinine [Mass ratio] 24.0 mg/mg 10-20 [facility] Work Phone: Laboratory - Hematology and Cell countson 08-19-2021 Erythrocyte distribution width (RBC) [Entitic vol] 44.3 fL 35.1-43.9 [facility] Work Phone: Erythrocyte distribution width (RBC) [Ratio] 14.1 % 11.6-14.6 [facility] Work Phone: Immature granulocytes/100 WBC (Bld) 0.400 % 0.0-0.9 [facility] Work Phone: Comment on above: IG% - Immature Granu locytes (promyelocytes, myelocytes and metamyelocytes) > 1% indicates that a LEFT SHIFT is Present. MCH (RBC) [Entitic mass] 28.9 pg 27.0-32.0 [facility] Work Phone: Nucleated RBC/100 WBC (Bld) [Ratio] 0 % 0-5 [facility] Work Phone: MCHC Auto (RBC) [Mass/Vol]on 08-19-2021 MCHC (RBC) [Mass/Vol] 33.6 g/dL 32-36 [facility] Work Phone: No Panel Informationon 08-19 Estimated Creatinine Clearance Calc 34.42 ml/min [facility] Work Phone: Estimated GFR (MDRD) Amer 102 mL/min >60 [facility] Work Phone: Comment on above: GFR Calc Estimated GFR (MDRD) Non-Af Amer 84 mL/min >60 [facility] Work Phone: Comment on above: Non- GFR Calc Platelets bldon 08-19-2021 Platelets (Bld) [#/Vol] 160 10*3/uL 150-450 [facility] Work Phone: Serum or plasma calcium roger urement (mass/volume)on 08-19-2021 Calcium [Mass/Vol] 8.3 mg/dL 8.5-10.1 [facility] Work Phone: Serum or plasma creatinine m easurement (mass/volume)on 08-19-2021 Creatinine [Mass/Vol] 0.71 mg/dL 0.55-1.02 [facility] Work Phone: Comment on above: The validity of the calculated GFR & GFRAA in patients over 70 years has not been determined. Clinical correlation is essential. Serum or plasma urea nitroge n measurement (mass/volume)on 08-19-2021 Urea nitrogen [Mass/Vol] 17 mg/dL 7-18 [facility] Work Phone: Thin prep Papanicolaou smear with manual screeningon 08-19-2021 Thin prep Papanicolaou smear with manual screening 6 5-15 [facility] Work Phone: Absolute lymphocyte counton 08-18-2021 Lymphocytes Auto (Unsp spec) [#/Vol] 2.55 10*3/uL 0.83-4.51 [facility] Work Phone: Basophil percentageon 2021 Chloride [Moles/Vol] 103 mmol/L 98-107 [facility] Work Phone: Glucose [Mass/Vol] 314 mg/dL 74-106 [facility] Work Phone: Comment on above: Glucose result great er than or equal to 200 mg/dLsuggests DIABETES MELLITUS per A.D.A. criteria. Potassium [Moles/Vol] 6.1 mmol/L 3.5-5.1 [facility] Work Phone: Comment on above: Slight Hemolysis, Re sult may be falsely increased. Critical Result(s) Called at: 20:20:17 08/18/2021 by: Porsha mckenzie TO [facility]. Results read back by same. Sodium [Moles/Vol] 133 mmol/L 136-145 [facility] Work Phone: Basophil percentage 0 SEEN /hpf [facility] Work Phone: Basophils/100 WBC (Bld) 0.3 % 0-1 [facility] Work Phone: Bilirubin [Mass/Vol] 0.90 mg/dL 0.20-1.00 [facility] Work Phone: Comment on above: For patients on eltr ombopag therapy, use of Dimension [place] TBIL is not recommended. Eosinophils/100 WBC (Bld) 0.0 % 0-5 [facility] Work Phone: Neutrophils (Bld) [#/Vol] 9.2 10*3/uL 2.0-7.7 [facility] Work Phone: Neutrophils/100 WBC (Bld) 74.2 % 47-70 [facility] Work Phone: Protein [Mass/Vol] 7.7 g/dL 6.4-8.2 [facility] Work Phone: WBC (Bld) [#/Vol] 12.4 10*3/uL 4.4-11.0 [facility] Work Phone: Bilirubin Test strip Ql (U)o n 08-18-2021 Bilirubin Ql (U) Negative Negative [facility] Work Phone: Blood erythrocytes count (nu mber/volume)on 08-18-2021 RBC (Bld) [#/Vol] 4.91 10*6/uL 4.2-5.4 [facility] Work Phone: Blood hemoglobin measurement (mass/volume)on 08-18-2021 Hemoglobin (Bld) [Mass/Vol] 14.3 g/dL 12.0-15.0 [facility] Work Phone: Blood lymphocytes/100 leukoc yteson 08-18-2021 Lymphocytes/100 WBC (Bld) 20.6 % 19-41 [facility] Work Phone: Blood monocytes/100 leukocyt eson 08-18-2021 Monocytes/100 WBC (Bld) 4.1 % 0-10 [facility] Work Phone: Blood platelet mean volumeon 08-18-2021 Platelet mean volume (Bld) [Entitic vol] 10.9 fL 6.2-12.0 [facility] Work Phone: Determination of erythrocyte mean corpuscular volume (MCV)on 08-18-2021 MCV (RBC) [Entitic vol] 86.4 fL 81-99 [facility] Work Phone: Glucose Glucometer (BldC) [M ass/Vol]on 08-18-2021 Glucose [Mass/Vol] 276 mg/dL 74-106 [facility] Work Phone: Comment on above: MANAGEMENT OF PATIEN T CARE PER NURSING PROTOCOL HCO3 (BldA) [Moles/Vol]on HCO3 (Bld) [Moles/Vol] 19 mmol/L 22-26 [facility] Work Phone: Hematocrit Auto (Bld) [Volum e fraction]on 08-18-2021 Hematocrit (Bld) [Volume fraction] 42.4 % 37-47 [facility] Work Phone: Hyaline casts LM.LPF (Urine sed) [#/Area]on 08-18-2021 Hyaline casts (Urine sed) [#/Area] 5 /[LPF] [facility] Work Phone: Ketones Test strip Ql (U)on 08-18-2021 Ketones Ql (U) 150 mg/dl Negative [facility] Work Phone: Comment on above: CRITICAL VALUE *HCRI TICAL VALUE VERIFIED. CALLED TO [id number] Porshaadia Mckenzie.RESULTS READ BACK BY SAME . Laboratory - Chemistry and C hemistry - challengeon 08-18-2021 CO2 [Moles/Vol] 19.0 mmol/L 21.0-32.0 [facility] Work Phone: Urea nitrogen/Creatinine [Mass ratio] 22.8 mg/mg 10-20 [facility] Work Phone: CO2 [Moles/Vol] 20 mmol/L 23-33 [facility] Work Phone: ALP [Catalytic activity/Vol] 105 U/L 45-117 [facility] Work Phone: ALT [Catalytic activity/Vol] 13 U/L 13-56 [facility] Work Phone: Globulin (S) [Mass/Vol] 3.7 g/dL 2.2-4.2 [facility] Work Phone: Laboratory - Hematology and Cell countson 08-18-2021 Erythrocyte distribution width (RBC) [Entitic vol] 43.5 fL 35.1-43.9 [facility] Work Phone: Erythrocyte distribution width (RBC) [Ratio] 13.7 % 11.6-14.6 [facility] Work Phone: Immature granulocytes/100 WBC (Bld) 0.800 % 0.0-0.9 [facility] Work Phone: Comment on above: IG% - Immature Granu locytes (promyelocytes, myelocytes and metamyelocytes) > 1% indicates that a LEFT SHIFT is Present. MCH (RBC) [Entitic mass] 29.1 pg 27.0-32.0 [facility] Work Phone: Nucleated RBC/100 WBC (Bld) [Ratio] 0 % 0-5 [facility] Work Phone: MCHC Auto (RBC) [Mass/Vol]on 08-18-2021 MCHC (RBC) [Mass/Vol] 33.7 g/dL 32-36 [facility] Work Phone: Mucus LM Ql (Urine sed)on Mucus Ql (Urine sed) 0 SEEN /hpf [facility] Work Phone: Nitrite Test strip Ql (U)on 08-18-2021 Nitrite Ql (U) Negative Negative [facility] Work Phone: No Panel Informationon 08-18 Estimated Creatinine Clearance Calc 28.41 ml/min [facility] Work Phone: Estimated GFR (MDRD) Amer 52 mL/min >60 [facility] Work Phone: Comment on above: GFR Calc Estimated GFR (MDRD) Non-Af Amer 43 mL/min >60 [facility] Work Phone: Comment on above: Non- GFR Calc Bed Mix Venous Bld PCO2 at Pat Temp 42.1 mmHg 41-51 [facility] Work Phone: Blood Gas Specimen Type CATHY [facility] Work Phone: Venous Blood Base Excess -8 mmol/L -1.0-3.5 [facility] Work Phone: PO2 venouson 08-18-2021 Oxygen (BldV) [Partial pressure] 22 mm[Hg] 25-40 [facility] Work Phone: Platelets bldon 08-18-2021 Platelets (Bld) [#/Vol] 229 10*3/uL 150-450 [facility] Work Phone: Protein Test strip Ql (U)on 08-18-2021 Protein Ql (U) 30 mg/dl Negative [facility] Work Phone: Serum or plasma acetone roger urement (mass/volume)on 08-18-2021 Acetone [Mass/Vol] MODERATE NEG [facility] Work Phone: Serum or plasma albumin roger urement (mass/volume)on 08-18-2021 Albumin [Mass/Vol] 4.0 g/dL 3.2-5.0 [facility] Work Phone: Serum or plasma albumin/glob ulin mass ratioon 08-18-2021 Albumin/Globulin [Mass ratio] 1.1 {ratio} 0.9-2.4 [facility] Work Phone: Serum or plasma calcium roger urement (mass/volume)on 08-18-2021 Calcium [Mass/Vol] 9.3 mg/dL 8.5-10.1 [facility] Work Phone: Serum or plasma creatinine m easurement (mass/volume)on 08-18-2021 Creatinine [Mass/Vol] 1.27 mg/dL 0.55-1.02 [facility] Work Phone: Comment on above: The validity of the calculated GFR & GFRAA in patients over 70 years has not been determined. Clinical correlation is essential. Serum or plasma urea nitroge n measurement (mass/volume)on 08-18-2021 Urea nitrogen [Mass/Vol] 29 mg/dL 7-18 [facility] Work Phone: Squamous epithelial cells de tection in urine sediment by light microscopyon 08-18-2021 Epithelial cells.squamous LM Ql (Urine sed) 0 SEEN /hpf [facility] Work Phone: Thin prep Papanicolaou smear with manual screeningon 08-18-2021 Thin prep Papanicolaou smear with manual screening 11 5-15 [facility] Work Phone: Thin prep Papanicolaou smear with manual screening 10 U/L 15-37 [facility] Work Phone: Urine blood detectionon 04-0 RBC Ql (U) Negative Negative [facility] Work Phone: RBC Ql (U) 0 SEEN /hpf [facility] Work Phone: Urine clarityon 08-18-2021 Clarity (U) Clear Clear [facility] Work Phone: Urine color determinationon 08-18-2021 Color (U) Yellow Yellow [facility] Work Phone: Urine glucose detectionon Glucose Ql (U) 1000 mg/dl Normal [facility] Work Phone: Urine leukocyte esterase det ection by dipstickon 08-18-2021 Leukocyte esterase Test strip Ql (U) Negative Negative [facility] Work Phone: Urine pHon 08-18-2021 pH (U) 5.0 [pH] [facility] Work Phone: Urine sediment bacteria coun t by microscopy (number/high power field)on 08-18-2021 Bacteria LM.HPF (Urine sed) [#/Area] 0 /[HPF] None Seen [facility] Work Phone: Urine specific gravity measu rementon 08-18-2021 Specific gravity (U) [Rel density] 1.025 [facility] Work Phone: Urobilinogen Auto test strip Ql (U)on 08-18-2021 Urobilinogen Ql (U) Normal mg/dl Normal [facility] Work Phone: Vital signson 08-18-2021 Oxygen saturation in Blood 30 % 50-70 [facility] Work Phone: Whole blood hemoglobin A1c/t otal hemoglobin ratio (mass fraction)on 08-18-2021 HbA1c (Bld) [Mass fraction] 9.4 % 3.8-5.6 [facility] Work Phone: Comment on above: Normal < 5.7 % Predi abetic 5.7 - 6.4 % Diabetic >or= 6.5 % Please note range changes. pH measurementon 08-18-2021 pH (Unsp spec) 7.26 [pH] 7.32-7.42 [facility] Work Phone: Influenza virus A and B and SARS-CoV-2 (COVID-19) Ag panel - Upper respiratory specim SARS-CoV-2 (COVID-19) RNA SHABANA+probe Ql (Resp) [facility] Work Phone: Vital Signs Date Time Vital Sign Value Performing Clinician Faci lity 02-02-2025 07:55-0400 Body height 160.[address] Rg Menchaca MD Work Phone: [facility] 02-02-2025 07:55-0400 Body mass index (BMI) [Ratio] 25.3 kg/m2 Dr. Rg Menchaca MD Work Phone: [facility] 02-02-2025 07:55-0400 Body temperature 97 [degF] Dr. Rg Menchaca MD Work Phone: [facility] 02-02-2025 07:55-0400 Body weight 64.[address] Rg Menchaca MD Work Phone: [facility] 02-02-2025 07:55-0400 Diastolic blood pressure 67 mm[Hg] Dr. Rg Menchaca MD Work Phone: 7(027)406-318611 [place] [address] 02-02-2025 07:55-0400 Heart rate 80 /min Dr. Rg Menchaca MD Work Phone: [facility] 02-02-2025 07:55-0400 Respiratory rate 16 /min Dr. Rg Menchaca MD Work Phone: [facility] 02-02-2025 07:55-0400 SaO2% (BldA) [Mass fraction] 99 % Dr. Rg Menchaca MD Work Phone: [facility] 02-02-2025 07:55-0400 Systolic blood pressure 97 mm[Hg] Dr. Rg Menchaca MD Work Phone: [facility] 01-08-2025 07:50-0400 Body height 160.[address] Rg Menchaca MD Work Phone: [facility] 01-08-2025 07:50-0400 Body mass index (BMI) [Ratio] 25.4 kg/m2 Dr. Rg Menchaca MD Work Phone: [facility] 01-08-2025 07:50-0400 Body temperature 97.1 [degF] Dr. Rg Menchaca MD Work Phone: [facility] 01-08-2025 07:50-0400 Body weight 65.[address] Rg Menchaca MD Work Phone: [facility] 01-08-2025 07:50-0400 Diastolic blood pressure 70 mm[Hg] Dr. Rg Menchaca MD Work Phone: 5(314)706-037911 [place] [address] 01-08-2025 07:50-0400 Heart rate 71 /min Dr. Rg Menchaca MD Work Phone: 2(002)398-861511 [place] [address] 01-08-2025 07:50-0400 Respiratory rate 16 /min Dr. Rg Menchaca MD Work Phone: 2(727)443-703362 [address] 01-08-2025 07:50-0400 SaO2% (BldA) [Mass fraction] 96 % Dr. Rg Menchaca MD Work Phone: 1(398)433-197762 [address] 01-08-2025 07:50-0400 Systolic blood pressure 122 mm[Hg] Dr. Rg Menchaca MD Work Phone: 3(641)035-856562 [address] 01-07-2025 07:50-0400 Body height 160.[address] Rg Menchaca MD Work Phone: 8(618)810-382454 [place] [address] 01-07-2025 07:50-0400 Body mass index (BMI) [Ratio] 25.3 kg/m2 Dr. Rg Menchaca MD Work Phone: [facility] 01-07-2025 07:50-0400 Body temperature 96.7 [degF] Dr. Rg Menchaca MD Work Phone: [facility] 01-07-2025 07:50-0400 Body weight 64.[address] Rg Menchaca MD Work Phone: [facility] 01-07-2025 07:50-0400 Diastolic blood pressure 77 mm[Hg] Dr. Rg Menchaca MD Work Phone: [facility] 01-07-2025 07:50-0400 Heart rate 77 /min Dr. Rg Menchaca MD Work Phone: [facility] 01-07-2025 07:50-0400 Respiratory rate 16 /min Dr. Rg Menchaca MD Work Phone: 5(280)255-503454 [place] [address] 01-07-2025 07:50-0400 SaO2% (BldA) [Mass fraction] 95 % Dr. Rg Menchaca MD Work Phone: 1(521)952-602754 [place] [address] 01-07-2025 07:50-0400 Systolic blood pressure 92 mm[Hg] Dr. Rg Menchaca MD Work Phone: 3(039)534-873454 [place] [address] 01-06-2025 08:15-0400 Body height 160.[address] Rg Menchaca MD Work Phone: 8(311)671-896954 [place] [address] 01-06-2025 08:15-0400 Body mass index (BMI) [Ratio] 25.3 kg/m2 Dr. Rg Menchaca MD Work Phone: 6(911)176-021654 [place] [address] 01-06-2025 08:15-0400 Body temperature 96.9 [degF] Dr. Rg Menchaca MD Work Phone: 2(348)130-414854 [place] [address] 01-06-2025 08:15-0400 Body weight 64.[address] Rg Menchaca MD Work Phone: 4(999)475-715254 [place] [address] 01-06-2025 08:15-0400 Diastolic blood pressure 87 mm[Hg] Dr. Rg Menchaca MD Work Phone: 3(596)385-787154 [place] [address] 01-06-2025 08:15-0400 Heart rate 69 /min Dr. Rg Menchaca MD Work Phone: 7(359)744-335054 [place] [address] 01-06-2025 08:15-0400 Respiratory rate 16 /min Dr. Rg Menchaca MD Work Phone: 3(736)101-946054 [place] [address] 01-06-2025 08:15-0400 SaO2% (BldA) [Mass fraction] 98 % Dr. Rg Menchaca MD Work Phone: 1(908)958-882554 [place] [address] 01-06-2025 08:15-0400 Systolic blood pressure 128 mm[Hg] Dr. Rg Menchaca MD Work Phone: 7(282)575-376811 [place] [address] 12-03-2024 08:37-0400 Body height 160.[address] Rg Menchaca MD Work Phone: 0(237)088-971154 [place] [address] 12-03-2024 08:37-0400 Body temperature 96.3 [degF] Dr. Rg Menchaca MD Work Phone: 7(079)723-138554 [place] [address] 12-03-2024 08:37-0400 Diastolic blood pressure 66 mm[Hg] Dr. Rg Menchaca MD Work Phone: 1(629)071-615054 [place] [address] 12-03-2024 08:37-0400 Heart rate 67 /min Dr. Rg Menchaca MD Work Phone: 9(958)895-605854 [place] [address] 12-03-2024 08:37-0400 Respiratory rate 16 /min Dr. Rg Menchaca MD Work Phone: 4(280)180-064554 [place] [address] 12-03-2024 08:37-0400 SaO2% (BldA) [Mass fraction] 97 % Dr. Rg Menchaca MD Work Phone: 2(893)490-020554 [place] [address] 12-03-2024 08:37-0400 Systolic blood pressure 94 mm[Hg] Dr. Rg Menchaca MD Work Phone: 4(877)950-703354 [place] [address] 12-02-2024 08:08-0400 Body height 160.[address] Rg Menchaca MD Work Phone: 3(955)812-562154 [place] [address] 12-02-2024 08:08-0400 Body mass index (BMI) [Ratio] 24.3 kg/m2 Dr. Rg Menchaca MD Work Phone: 1(136)214-010054 [place] [address] 12-02-2024 08:08-0400 Body temperature 96.4 [degF] Dr. Rg Menchaca MD Work Phone: 4(708)109-339054 [place] [address] 12-02-2024 08:08-0400 Body weight 62.[address] Rg Menchaca MD Work Phone: 0(531)429-679554 [place] [address] 12-02-2024 08:08-0400 Diastolic blood pressure 67 mm[Hg] Dr. Rg Menchaca MD Work Phone: 1(983)414-694754 [place] [address] 12-02-2024 08:08-0400 Heart rate 82 /min Dr. Rg Menchaca MD Work Phone: 4(152)377-683954 [place] [address] 12-02-2024 08:08-0400 Respiratory rate 16 /min Dr. Rg Menchaca MD Work Phone: 7(476)344-191054 [place] [address] 12-02-2024 08:08-0400 SaO2% (BldA) [Mass fraction] 96 % Dr. Rg Menchaca MD Work Phone: 4(935)370-148654 [place] [address] 12-02-2024 08:08-0400 Systolic blood pressure 110 mm[Hg] Dr. Rg Menchaca MD Work Phone: 4(528)062-848254 [place] [address] 12-01-2024 08:09-0400 Body height 160.[address] Rg Menchaca MD Work Phone: 9(921)538-271454 [place] [address] 12-01-2024 08:09-0400 Body mass index (BMI) [Ratio] 24.3 kg/m2 Dr. Rg Menchaca MD Work Phone: 2(614)137-582254 [place] [address] 12-01-2024 08:09-0400 Body temperature 96.7 [degF] Dr. Rg Menchaca MD Work Phone: 0(074)348-335454 [place] [address] 12-01-2024 08:09-0400 Body weight 62.[address] Rg Menchaca MD Work Phone: 0(871)547-737154 [place] [address] 12-01-2024 08:09-0400 Diastolic blood pressure 75 mm[Hg] Dr. Rg Menchaca MD Work Phone: 3(304)870-625954 [place] [address] 12-01-2024 08:09-0400 Heart rate 78 /min Dr. Rg Menchaca MD Work Phone: 1(445)866-671054 [place] [address] 12-01-2024 08:09-0400 Respiratory rate 16 /min Dr. Rg Menchaca MD Work Phone: 1(061)832-051654 [place] [address] 12-01-2024 08:09-0400 SaO2% (BldA) [Mass fraction] 95 % Dr. Rg Menchaca MD Work Phone: 0(622)564-652554 [place] [address] 12-01-2024 08:09-0400 Systolic blood pressure 90 mm[Hg] Dr. Rg Menchaca MD Work Phone: [facility] 11-11-2024 12:42-0400 Diastolic blood pressure 67 mm[Hg] Windy Yuen MD Work Phone: [facility] 11-11-2024 12:42-0400 Heart rate 74 /min Windy Yuen MD Work Phone: [facility] 11-11-2024 12:42-0400 SaO2% (BldA) [Mass fraction] 96 % Windy Yuen MD Work Phone: [facility] 11-11-2024 12:42-0400 Systolic blood pressure 108 mm[Hg] Windy Yuen MD Work Phone: [facility] 11-05-2024 08:15-0400 Body height 160.[address] Rg Menchaca MD Work Phone: [facility] 11-05-2024 08:15-0400 Body mass index (BMI) [Ratio] 24.4 kg/m2 Dr. Rg Menchaca MD Work Phone: [facility] 11-05-2024 08:15-0400 Body temperature 96.5 [degF] Dr. Rg Menchaca MD Work Phone: [facility] 11-05-2024 08:15-0400 Body weight 62.[address] Rg Menchaca MD Work Phone: [facility] 11-05-2024 08:15-0400 Diastolic blood pressure 64 mm[Hg] Dr. Rg Menchaca MD Work Phone: [facility] 11-05-2024 08:15-0400 Heart rate 74 /min Dr. Rg Menchaca MD Work Phone: [facility] 11-05-2024 08:15-0400 Respiratory rate 16 /min Dr. Rg Menchaca MD Work Phone: [facility] 11-05-2024 08:15-0400 SaO2% (BldA) [Mass fraction] 95 % Dr. Rg Menchaca MD Work Phone: [facility] 11-05-2024 08:15-0400 Systolic blood pressure 142 mm[Hg] Dr. Rg Menchaca MD Work Phone: 0(208)149-889611 [place] [address] 11-04-2024 07:55-0400 Body height 160.[address] Rg Menchaca MD Work Phone: 4(372)558-374254 [place] [address] 11-04-2024 07:55-0400 Body mass index (BMI) [Ratio] 24.4 kg/m2 Dr. Rg Menchaca MD Work Phone: 0(699)337-571254 [place] [address] 11-04-2024 07:55-0400 Body temperature 96.2 [degF] Dr. Rg Menchaca MD Work Phone: 7(537)554-040854 [place] [address] 11-04-2024 07:55-0400 Body weight 62.[address] Rg Menchaca MD Work Phone: 4(433)949-426254 [place] [address] 11-04-2024 07:55-0400 Diastolic blood pressure 70 mm[Hg] Dr. Rg Menchaca MD Work Phone: 7(218)537-453954 [place] [address] 11-04-2024 07:55-0400 Heart rate 74 /min Dr. Rg Menchaca MD Work Phone: 3(389)508-786454 [place] [address] 11-04-2024 07:55-0400 Respiratory rate 16 /min Dr. Rg Menchaca MD Work Phone: 9(321)625-179154 [place] [address] 11-04-2024 07:55-0400 SaO2% (BldA) [Mass fraction] 94 % Dr. Rg Menchaca MD Work Phone: 0(486)750-123262 [address] 11-04-2024 07:55-0400 Systolic blood pressure 118 mm[Hg] Dr. Rg Menchaca MD Work Phone: [facility] 11-03-2024 08:09-0400 Body height 160.[address] Rg Menchaca MD Work Phone: 3(071)433-792111 [place] [address] 11-03-2024 08:09-0400 Body mass index (BMI) [Ratio] 24.4 kg/m2 Dr. Rg Menchaca MD Work Phone: [facility] 11-03-2024 08:09-0400 Body temperature 97.5 [degF] Dr. Rg Menchaca MD Work Phone: [facility] 11-03-2024 08:09-0400 Body weight 62.[address] Rg Menchaca MD Work Phone: [facility] 11-03-2024 08:09-0400 Diastolic blood pressure 68 mm[Hg] Dr. Rg Menchaca MD Work Phone: 8(355)008-089511 [place] [address] 11-03-2024 08:09-0400 Heart rate 86 /min Dr. Rg Menchaca MD Work Phone: 1(467)594-354462 [address] 11-03-2024 08:09-0400 Respiratory rate 16 /min Dr. Rg Menchaca MD Work Phone: 4(761)239-051711 [place] [address] 11-03-2024 08:09-0400 Systolic blood pressure 116 mm[Hg] Dr. Rg Menchaca MD Work Phone: [facility] 10-08-2024 08:55-0400 Body temperature 97.1 [degF] Dr. Rg Menchaca MD Work Phone: [facility] 10-08-2024 08:55-0400 Diastolic blood pressure 71 mm[Hg] Dr. Rg Menchaca MD Work Phone: [facility] 10-08-2024 08:55-0400 Heart rate 68 /min Dr. Rg Menchaca MD Work Phone: [facility] 10-08-2024 08:55-0400 Respiratory rate 16 /min Dr. Rg Menchaca MD Work Phone: [facility] 10-08-2024 08:55-0400 SaO2% (BldA) [Mass fraction] 94 % Dr. Rg Menchaca MD Work Phone: [facility] 10-08-2024 08:55-0400 Systolic blood pressure 116 mm[Hg] Dr. Rg Menchaca MD Work Phone: [facility] 10-07-2024 08:31-0400 Body height 160.[address] Rg Menchaca MD Work Phone: [facility] 10-07-2024 08:31-0400 Body mass index (BMI) [Ratio] 23.3 kg/m2 Dr. Rg Menchaca MD Work Phone: 9(145)071-532911 [place] [address] 10-07-2024 08:31-0400 Body temperature 97.2 [degF] Dr. Rg Menchaca MD Work Phone: 6(802)627-782854 [place] [address] 10-07-2024 08:31-0400 Body weight 59.[address] Rg Menchaca MD Work Phone: 3(334)723-815154 [place] [address] 10-07-2024 08:31-0400 Diastolic blood pressure 63 mm[Hg] Dr. Rg Menchaca MD Work Phone: 7(279)792-870054 [place] [address] 10-07-2024 08:31-0400 Heart rate 72 /min Dr. Rg Menchaca MD Work Phone: 7(085)661-007554 [place] [address] 10-07-2024 08:31-0400 Respiratory rate 14 /min Dr. Rg Menchaca MD Work Phone: 5(869)855-203054 [place] [address] 10-07-2024 08:31-0400 SaO2% (BldA) [Mass fraction] 96 % Dr. Rg Menchaca MD Work Phone: 5(815)413-865354 [place] [address] 10-07-2024 08:31-0400 Systolic blood pressure 112 mm[Hg] Dr. Rg Menchaca MD Work Phone: 1(681)529-688054 [place] [address] 10-06-2024 08:06-0400 Body height 160.[address] Rg Menchaca MD Work Phone: 2(637)208-925054 [place] [address] 10-06-2024 08:06-0400 Body mass index (BMI) [Ratio] 24.4 kg/m2 Dr. Rg Menchaca MD Work Phone: 9(987)570-634954 [place] [address] 10-06-2024 08:06-0400 Body temperature 97.4 [degF] Dr. Rg Menchaca MD Work Phone: 6(210)116-881111 [place] [address] 10-06-2024 08:06-0400 Body weight 62.[address] Rg Menchaca MD Work Phone: 5(705)609-394854 [place] [address] 10-06-2024 08:06-0400 Diastolic blood pressure 59 mm[Hg] Dr. Rg Menchaca MD Work Phone: 4(584)455-750954 [place] [address] 10-06-2024 08:06-0400 Heart rate 73 /min Dr. Rg Menchaca MD Work Phone: 1(131)452-046754 [place] [address] 10-06-2024 08:06-0400 Respiratory rate 16 /min Dr. Rg Menchaca MD Work Phone: 0(064)780-531054 [place] [address] 10-06-2024 08:06-0400 SaO2% (BldA) [Mass fraction] 92 % Dr. Rg Menchaca MD Work Phone: 7(416)261-112954 [place] [address] 10-06-2024 08:06-0400 Systolic blood pressure 102 mm[Hg] Dr. Rg Menchaca MD Work Phone: 4(567)805-617954 [place] [address] 09-10-2024 08:20-0400 Body height 160.[address] Rg Menchaca MD Work Phone: 6(827)425-427254 [place] [address] 09-10-2024 08:20-0400 Body mass index (BMI) [Ratio] 24.7 kg/m2 Dr. Rg Menchaca MD Work Phone: 6(850)455-416854 [place] [address] 09-10-2024 08:20-0400 Body temperature 96.8 [degF] Dr. Rg Menchaca MD Work Phone: 7(945)543-837954 [place] [address] 09-10-2024 08:20-0400 Body weight 63.[address] Rg Menchaca MD Work Phone: 6(178)205-558354 [place] [address] 09-10-2024 08:20-0400 Diastolic blood pressure 75 mm[Hg] Dr. Rg Menchaca MD Work Phone: 2(067)762-156754 [place] [address] 09-10-2024 08:20-0400 Heart rate 78 /min Dr. Rg Menchaca MD Work Phone: [facility] 09-10-2024 08:20-0400 Respiratory rate 16 /min Dr. Rg Menchaca MD Work Phone: [facility] 09-10-2024 08:20-0400 SaO2% (BldA) [Mass fraction] 95 % Dr. Rg Menchaca MD Work Phone: [facility] 09-10-2024 08:20-0400 Systolic blood pressure 135 mm[Hg] Dr. Rg Menchaca MD Work Phone: [facility] 09-09-2024 12:17-0400 Body temperature 96 [degF] Dr. Rg Menchaca MD Work Phone: 0(383)507-280454 [place] [address] 09-09-2024 12:17-0400 Diastolic blood pressure 76 mm[Hg] Dr. Rg Menchaca MD Work Phone: 5(168)109-015154 [place] [address] 09-09-2024 12:17-0400 Heart rate 68 /min Dr. Rg Menchaca MD Work Phone: [facility] 09-09-2024 12:17-0400 Respiratory rate 16 /min Dr. Rg Menchaca MD Work Phone: 3(004)858-046662 [address] 09-09-2024 12:17-0400 Systolic blood pressure 117 mm[Hg] Dr. Rg Menchaca MD Work Phone: 9(175)541-818062 [address] 09-09-2024 08:09-0400 Body height 160.[address] Rg Menchaca MD Work Phone: [facility] 09-09-2024 08:09-0400 Body mass index (BMI) [Ratio] 24.7 kg/m2 Dr. Rg Menchaca MD Work Phone: [facility] 09-09-2024 08:09-0400 Body weight 63.[address] Rg Menchaca MD Work Phone: [facility] 09-09-2024 08:09-0400 SaO2% (BldA) [Mass fraction] 94 % Dr. Rg Menchaca MD Work Phone: [facility] 09-08-2024 08:33-0400 Body mass index (BMI) [Ratio] 24.7 kg/m2 Dr. Rg Menchaca MD Work Phone: [facility] 09-08-2024 08:33-0400 Body temperature 96.5 [degF] Dr. Rg Menchaca MD Work Phone: 6(038)565-671054 [place] [address] 09-08-2024 08:33-0400 Body weight 63.[address] Rg Menchaca MD Work Phone: 4(977)735-231354 [place] [address] 09-08-2024 08:33-0400 Diastolic blood pressure 75 mm[Hg] Dr. Rg Menchaca MD Work Phone: 6(089)428-092954 [place] [address] 09-08-2024 08:33-0400 Heart rate 80 /min Dr. Rg Menchaca MD Work Phone: 3(091)067-965454 [place] [address] 09-08-2024 08:33-0400 Respiratory rate 16 /min Dr. Rg Menchaca MD Work Phone: 9(554)591-380854 [place] [address] 09-08-2024 08:33-0400 SaO2% (BldA) [Mass fraction] 93 % Dr. Rg Menchaca MD Work Phone: [facility] 09-08-2024 08:33-0400 Systolic blood pressure 126 mm[Hg] Dr. Rg Menchaca MD Work Phone: 1(955)934-934054 [place] [address] 08-13-2024 10:15-0400 Body height 160.[address] Rg Menchaca MD Work Phone: 6(317)730-479654 [place] [address] 08-13-2024 10:15-0400 Body mass index (BMI) [Ratio] 24.9 kg/m2 Dr. Rg Menchaca MD Work Phone: [facility] 08-13-2024 10:15-0400 Body temperature 96.6 [degF] Dr. Rg Menchaca MD Work Phone: 5(675)744-796954 [place] [address] 08-13-2024 10:15-0400 Body weight 63.[address] Rg Menchaca MD Work Phone: [facility] 08-13-2024 10:15-0400 Diastolic blood pressure 72 mm[Hg] Dr. Rg Menchaca MD Work Phone: [facility] 08-13-2024 10:15-0400 Heart rate 73 /min Dr. Rg Menchaca MD Work Phone: [facility] 08-13-2024 10:15-0400 Respiratory rate 16 /min Dr. Rg Menchaca MD Work Phone: [facility] 08-13-2024 10:15-0400 SaO2% (BldA) [Mass fraction] 95 % Dr. Rg Menchaca MD Work Phone: 4(081)026-297511 [place] [address] 08-13-2024 10:15-0400 Systolic blood pressure 121 mm[Hg] Dr. Rg Menchaca MD Work Phone: 9(779)058-733762 [address] 08-12-2024 08:09-0400 Body height 160.[address] Rg Menchaca MD Work Phone: [facility] 08-12-2024 08:09-0400 Body mass index (BMI) [Ratio] 24.9 kg/m2 Dr. Rg Menchaca MD Work Phone: 5(233)124-326462 [address] 08-12-2024 08:09-0400 Body temperature 96.8 [degF] Dr. Rg Menchaca MD Work Phone: 7(339)505-795711 [place] [address] 08-12-2024 08:09-0400 Body weight 63.[address] Rg Menchaca MD Work Phone: [facility] 08-12-2024 08:09-0400 Diastolic blood pressure 59 mm[Hg] Dr. Rg Menchaca MD Work Phone: [facility] 08-12-2024 08:09-0400 Heart rate 79 /min Dr. Rg Menchaca MD Work Phone: [facility] 08-12-2024 08:09-0400 Respiratory rate 16 /min Dr. Rg Menchaca MD Work Phone: 6(938)676-145211 [place] [address] 08-12-2024 08:09-0400 SaO2% (BldA) [Mass fraction] 95 % Dr. Rg Menchaca MD Work Phone: [facility] 08-12-2024 08:09-0400 Systolic blood pressure 104 mm[Hg] Dr. Rg Menchaca MD Work Phone: 8(283)413-306411 [place] [address] 08-11-2024 08:01-0400 Body height 160.[address] Rg Menchaca MD Work Phone: 8(233)515-358454 [place] [address] 08-11-2024 08:01-0400 Body mass index (BMI) [Ratio] 24.9 kg/m2 Dr. Rg Menchaca MD Work Phone: 1(088)572-707254 [place] [address] 08-11-2024 08:01-0400 Body temperature 96.8 [degF] Dr. Rg Menchaca MD Work Phone: 9(080)700-632054 [place] [address] 08-11-2024 08:01-0400 Body weight 63.[address] Rg Menchaca MD Work Phone: 4(117)753-697454 [place] [address] 08-11-2024 08:01-0400 Diastolic blood pressure 73 mm[Hg] Dr. Rg Menchaca MD Work Phone: 4(301)229-649354 [place] [address] 08-11-2024 08:01-0400 Heart rate 83 /min Dr. Rg Menchaca MD Work Phone: 5(537)353-718054 [place] [address] 08-11-2024 08:01-0400 Respiratory rate 16 /min Dr. Rg Menchaca MD Work Phone: 6(177)227-929654 [place] [address] 08-11-2024 08:01-0400 SaO2% (BldA) [Mass fraction] 94 % Dr. Rg Menchaca MD Work Phone: 8(550)349-407554 [place] [address] 08-11-2024 08:01-0400 Systolic blood pressure 116 mm[Hg] Dr. Rg Menchaca MD Work Phone: 3(148)682-543954 [place] [address] 07-16-2024 08:39-0500 Body mass index (BMI) [Ratio] 24.3 kg/m2 Dr. Rg Menchaca MD Work Phone: [facility] 07-16-2024 08:39-0500 Body temperature 96.6 [degF] Dr. Rg Menchaca MD Work Phone: [facility] 07-16-2024 08:39-0500 Body weight 62.[address] Rg Menchaca MD Work Phone: 7(061)652-520511 [place] [address] 07-16-2024 08:39-0500 Diastolic blood pressure 71 mm[Hg] Dr. Rg Menchaca MD Work Phone: 5(012)087-741662 [address] 07-16-2024 08:39-0500 Heart rate 80 /min Dr. Rg Menchaca MD Work Phone: 2(775)011-587754 [place] [address] 07-16-2024 08:39-0500 Respiratory rate 16 /min Dr. Rg Menchaca MD Work Phone: 3(468)485-516854 [place] [address] 07-16-2024 08:39-0500 SaO2% (BldA) [Mass fraction] 96 % Dr. Rg Menchaca MD Work Phone: [facility] 07-16-2024 08:39-0500 Systolic blood pressure 133 mm[Hg] Dr. Rg Menchaca MD Work Phone: 9(237)974-073162 [address] 07-15-2024 13:02-0500 Body temperature 96.5 [degF] Dr. Rg Menchaca MD Work Phone: 0(520)788-854354 [place] [address] 07-15-2024 13:02-0500 Diastolic blood pressure 65 mm[Hg] Dr. Rg Mencahca MD Work Phone: [facility] 07-15-2024 13:02-0500 Heart rate 75 /min Dr. Rg Menchaca MD Work Phone: 7(588)290-757511 [place] [address] 07-15-2024 13:02-0500 Systolic blood pressure 108 mm[Hg] Dr. Rg Menchaca MD Work Phone: [facility] 07-15-2024 08:35-0500 Body mass index (BMI) [Ratio] 24.3 kg/m2 Dr. Rg Menchaca MD Work Phone: 3(607)524-255111 [place] [address] 07-15-2024 08:35-0500 Body weight 62.[address] Rg Menchaca MD Work Phone: 7(977)375-260211 [place] [address] 07-15-2024 08:35-0500 Respiratory rate 16 /min Dr. Rg Menchaca MD Work Phone: 2(510)127-643554 [place] [address] 07-15-2024 08:35-0500 SaO2% (BldA) [Mass fraction] 95 % Dr. Rg Menchaca MD Work Phone: 7(270)829-049054 [place] [address] 07-14-2024 08:22-0500 Body mass index (BMI) [Ratio] 24.3 kg/m2 Dr. Rg Menchaca MD Work Phone: 1(190)258-143854 [place] [address] 07-14-2024 08:22-0500 Body temperature 97.1 [degF] Dr. Rg Menchaca MD Work Phone: 8(880)057-472754 [place] [address] 07-14-2024 08:22-0500 Body weight 62.[address] Rg Menchaca MD Work Phone: 9(412)127-510954 [place] [address] 07-14-2024 08:22-0500 Diastolic blood pressure 70 mm[Hg] Dr. Rg Menchaca MD Work Phone: 6(302)106-352954 [place] [address] 07-14-2024 08:22-0500 Heart rate 83 /min Dr. Rg Menchaca MD Work Phone: 0(652)389-599154 [place] [address] 07-14-2024 08:22-0500 Respiratory rate 16 /min Dr. Rg Menchaca MD Work Phone: 6(230)223-854554 [place] [address] 07-14-2024 08:22-0500 SaO2% (BldA) [Mass fraction] 95 % Dr. Rg Menchaca MD Work Phone: 5(214)587-760754 [place] [address] 07-14-2024 08:22-0500 Systolic blood pressure 102 mm[Hg] Dr. Rg Menchaca MD Work Phone: 1(152)562-369054 [place] [address] 06-18-2024 08:30-0500 Body temperature 96.9 [degF] Dr. Rg Menchaca MD Work Phone: 1(830)170-668854 [place] [address] 06-18-2024 08:30-0500 Diastolic blood pressure 61 mm[Hg] Dr. Rg Menchaca MD Work Phone: [facility] 06-18-2024 08:30-0500 Heart rate 71 /min Dr. Rg Menchaca MD Work Phone: [facility] 06-18-2024 08:30-0500 Respiratory rate 16 /min Dr. Rg Menchaca MD Work Phone: [facility] 06-18-2024 08:30-0500 SaO2% (BldA) [Mass fraction] 95 % Dr. Rg Menchaca MD Work Phone: [facility] 06-18-2024 08:30-0500 Systolic blood pressure 114 mm[Hg] Dr. Rg Menchaca MD Work Phone: [facility] 06-17-2024 08:43-0500 Body mass index (BMI) [Ratio] 24.3 kg/m2 Dr. Rg Menchaca MD Work Phone: [facility] 06-17-2024 08:43-0500 Body temperature 96.7 [degF] Dr. Rg Menchaca MD Work Phone: [facility] 06-17-2024 08:43-0500 Body weight 62.[address] Rg Menchaca MD Work Phone: [facility] 06-17-2024 08:43-0500 Diastolic blood pressure 62 mm[Hg] Dr. Rg Menchaca MD Work Phone: [facility] 06-17-2024 08:43-0500 Heart rate 78 /min Dr. Rg Menchaca MD Work Phone: [facility] 06-17-2024 08:43-0500 Respiratory rate 16 /min Dr. Rg Menchaca MD Work Phone: [facility] 06-17-2024 08:43-0500 SaO2% (BldA) [Mass fraction] 92 % Dr. Rg Menchaca MD Work Phone: [facility] 06-17-2024 08:43-0500 Systolic blood pressure 108 mm[Hg] Dr. Rg Menchaca MD Work Phone: 1(391)678-201954 [place] [address] 06-16-2024 08:20-0500 Body mass index (BMI) [Ratio] 23.4 kg/m2 Dr. Rg Menchaca MD Work Phone: 0(686)126-984254 [place] [address] 06-16-2024 08:20-0500 Body temperature 97.5 [degF] Dr. Rg Menchaca MD Work Phone: 4(865)989-835154 [place] [address] 06-16-2024 08:20-0500 Body weight [address] Rg Menchaca MD Work Phone: 0(569)856-845854 [place] [address] 06-16-2024 08:20-0500 Diastolic blood pressure 68 mm[Hg] Dr. Rg Menchaca MD Work Phone: 9(598)990-806954 [place] [address] 06-16-2024 08:20-0500 Heart rate 82 /min Dr. Rg Menchaca MD Work Phone: 1(509)965-038554 [place] [address] 06-16-2024 08:20-0500 Respiratory rate 16 /min Dr. Rg Menchaca MD Work Phone: 5(798)328-579054 [place] [address] 06-16-2024 08:20-0500 SaO2% (BldA) [Mass fraction] 95 % Dr. Rg Menchaca MD Work Phone: 1(191)883-404954 [place] [address] 06-16-2024 08:20-0500 Systolic blood pressure 110 mm[Hg] Dr. Rg Menchaca MD Work Phone: 7(189)907-091054 [place] [address] 05-22-2024 09:00-0500 Body temperature 97.2 [degF] Dr. Rg Menchaca MD Work Phone: 4(743)506-127954 [place] [address] 05-22-2024 09:00-0500 Diastolic blood pressure 84 mm[Hg] Dr. Rg Menchaca MD Work Phone: 5(915)020-493354 [place] [address] 05-22-2024 09:00-0500 Heart rate 65 /min Dr. Rg Menchaca MD Work Phone: 0(774)071-409754 [place] [address] 05-22-2024 09:00-0500 Respiratory rate 16 /min Dr. Rg Menchaca MD Work Phone: [facility] 05-22-2024 09:00-0500 SaO2% (BldA) [Mass fraction] 96 % Dr. Rg Menchaca MD Work Phone: [facility] 05-22-2024 09:00-0500 Systolic blood pressure 112 mm[Hg] Dr. Rg Menchaca MD Work Phone: 0(966)558-896811 [place] [address] 05-21-2024 08:39-0500 Body temperature 96.9 [degF] Dr. Rg Menchaca MD Work Phone: 7(778)649-543562 [address] 05-21-2024 08:39-0500 Diastolic blood pressure 60 mm[Hg] Dr. Rg Menchaca MD Work Phone: 7(454)589-889711 [place] [address] 05-21-2024 08:39-0500 Heart rate 74 /min Dr. Rg Menchaca MD Work Phone: 1(834)817-978811 [place] [address] 05-21-2024 08:39-0500 Respiratory rate 16 /min Dr. Rg Menchaca MD Work Phone: 5(055)001-673262 [address] 05-21-2024 08:39-0500 SaO2% (BldA) [Mass fraction] 96 % Dr. Rg Menchaca MD Work Phone: [facility] 05-21-2024 08:39-0500 Systolic blood pressure 105 mm[Hg] Dr. Rg Menchaca MD Work Phone: 3(163)060-887011 [place] [address] 05-19-2024 08:26-0500 Body mass index (BMI) [Ratio] 25 kg/m2 Dr. Rg Menchaca MD Work Phone: 2(328)461-938711 [place] [address] 05-19-2024 08:26-0500 Body temperature 98.6 [degF] Dr. Rg Menchaca MD Work Phone: 0(889)128-871711 [place] [address] 05-19-2024 08:26-0500 Body weight 63.[address] Rg Menchaca MD Work Phone: [facility] 05-19-2024 08:26-0500 Diastolic blood pressure 79 mm[Hg] Dr. Rg Menchaca MD Work Phone: [facility] 05-19-2024 08:26-0500 Heart rate 88 /min Dr. Rg Menchaca MD Work Phone: [facility] 05-19-2024 08:26-0500 Respiratory rate 16 /min Dr. Rg Menchaca MD Work Phone: [facility] 05-19-2024 08:26-0500 SaO2% (BldA) [Mass fraction] 96 % Dr. Rg Menchaca MD Work Phone: 0(860)066-142762 [address] 05-19-2024 08:26-0500 Systolic blood pressure 114 mm[Hg] Dr. Rg Menchaca MD Work Phone: 0(308)586-955162 [address] 04-23-2024 08:22-0500 Body mass index (BMI) [Ratio] 24.5 kg/m2 Dr. Rg Menchaca MD Work Phone: 9(861)883-514262 [address] 04-23-2024 08:22-0500 Body temperature 97 [degF] Dr. Rg Menchaca MD Work Phone: 7(123)557-351762 [address] 04-23-2024 08:22-0500 Body weight 62.[address] Rg Menchaca MD Work Phone: [facility] 04-23-2024 08:22-0500 Diastolic blood pressure 71 mm[Hg] Dr. Rg Menchaca MD Work Phone: [facility] 04-23-2024 08:22-0500 Heart rate 76 /min Dr. Rg Menchaca MD Work Phone: [facility] 04-23-2024 08:22-0500 Respiratory rate 16 /min Dr. Rg Menchaca MD Work Phone: [facility] 04-23-2024 08:22-0500 SaO2% (BldA) [Mass fraction] 95 % Dr. Rg Mencahca MD Work Phone: 3(845)862-161611 [place] [address] 04-23-2024 08:22-0500 Systolic blood pressure 117 mm[Hg] Dr. Rg Menchaca MD Work Phone: 4(637)783-732311 [place] [address] 04-22-2024 08:27-0500 Body mass index (BMI) [Ratio] 24.5 kg/m2 Dr. Rg Menchaca MD Work Phone: 6(888)142-045154 [place] [address] 04-22-2024 08:27-0500 Body temperature 97.2 [degF] Dr. Rg Menchaca MD Work Phone: 4(201)984-254054 [place] [address] 04-22-2024 08:27-0500 Body weight 62.[address] Rg Menchaca MD Work Phone: 8(440)233-779954 [place] [address] 04-22-2024 08:27-0500 Diastolic blood pressure 68 mm[Hg] Dr. Rg Menchaca MD Work Phone: 9(245)705-774554 [place] [address] 04-22-2024 08:27-0500 Heart rate 72 /min Dr. Rg Menchaca MD Work Phone: 8(165)[phone] [place] [address] 04-22-2024 08:27-0500 Respiratory rate 16 /min Dr. Rg Menchaca MD Work Phone: 5(024)184-193354 [place] [address] 04-22-2024 08:27-0500 SaO2% (BldA) [Mass fraction] 97 % Dr. Rg Menchaca MD Work Phone: 5(542)017-975254 [place] [address] 04-22-2024 08:27-0500 Systolic blood pressure 115 mm[Hg] Dr. Rg Menchaca MD Work Phone: 7(150)[phone] [place] [address] 04-21-2024 08:25-0500 Body mass index (BMI) [Ratio] 24.4 kg/m2 Dr. Rg Menchaca MD Work Phone: 1(349)[phone] [place] [address] 04-21-2024 08:25-0500 Body temperature 96.5 [degF] Dr. Rg Menchaca MD Work Phone: 8(199)[phone] [place] [address] 04-21-2024 08:25-0500 Body weight 62.[address] Rg Menchaca MD Work Phone: 5(219)[phone] [place] [address] 04-21-2024 08:25-0500 Diastolic blood pressure 57 mm[Hg] Dr. Rg Menchaca MD Work Phone: [facility] 04-21-2024 08:25-0500 Heart rate 77 /min Dr. Rg Menchaca MD Work Phone: [facility] 04-21-2024 08:25-0500 Respiratory rate 16 /min Dr. Rg Menchaca MD Work Phone: [facility] 04-21-2024 08:25-0500 SaO2% (BldA) [Mass fraction] 94 % Dr. Rg Menchaca MD Work Phone: [facility] 04-21-2024 08:25-0500 Systolic blood pressure 104 mm[Hg] Dr. Rg Mencahca MD Work Phone: [facility] 02-05-2024 11:19-0400 Diastolic blood pressure 68 mm[Hg] Windy Yuen MD Work Phone: [facility] 02-05-2024 11:19-0400 Heart rate 81 /min Windy Yuen MD Work Phone: [facility] 02-05-2024 11:19-0400 SaO2% (BldA) [Mass fraction] 94 % Windy Yuen MD Work Phone: [facility] 02-05-2024 11:19-0400 Systolic blood pressure 116 mm[Hg] Windy Yuen MD Work Phone: [facility] 09-13-2023 08:36-0400 Body height 160.02 cm [facility] 09-13-2023 08:36-0400 Body temperature 98.1 [degF] [facility] 09-13-2023 08:36-0400 Diastolic blood pressure 68 mm[Hg] [facility] 09-13-2023 08:36-0400 Heart rate 77 /min [facility] 09-13-2023 08:36-0400 Respiratory rate 16 /min [facility] 09-13-2023 08:36-0400 SaO2% (BldA) [Mass fraction] 94 % [facility] 09-13-2023 08:36-0400 Systolic blood pressure 115 mm[Hg] [facility] 09-12-2023 09:03-0400 Body height 160.02 cm [facility] 09-12-2023 09:03-0400 Body mass index (BMI) [Ratio] 23.4 kg/m2 [facility] 09-12-2023 09:03-0400 Body temperature 98.5 [degF] [facility] 09-12-2023 09:03-0400 Body weight 60 kg [facility] 09-12-2023 09:03-0400 Diastolic blood pressure 75 mm[Hg] [facility] 09-12-2023 09:03-0400 Heart rate 70 /min [facility] 09-12-2023 09:03-0400 Respiratory rate 16 /min [facility] 09-12-2023 09:03-0400 SaO2% (BldA) [Mass fraction] 95 % [facility] 09-12-2023 09:03-0400 Systolic blood pressure 130 mm[Hg] [facility] 09-11-2023 08:32-0400 Body height 160.02 cm [facility] 09-11-2023 08:32-0400 Body temperature 98.3 [degF] [facility] 09-11-2023 08:32-0400 Diastolic blood pressure 64 mm[Hg] [facility] 09-11-2023 08:32-0400 Heart rate 77 /min [facility] 09-11-2023 08:32-0400 Respiratory rate 16 /min [facility] 09-11-2023 08:32-0400 SaO2% (BldA) [Mass fraction] 95 % [facility] 09-11-2023 08:32-0400 Systolic blood pressure 109 mm[Hg] [facility] 09-10-2023 08:39-0400 Body height 160.02 cm [facility] 09-10-2023 08:39-0400 Body mass index (BMI) [Ratio] 23.7 kg/m2 [facility] 09-10-2023 08:39-0400 Body temperature 98 [degF] [facility] 09-10-2023 08:39-0400 Body weight 60.78 kg [facility] 09-10-2023 08:39-0400 Diastolic blood pressure 67 mm[Hg] [facility] 09-10-2023 08:39-0400 Heart rate 80 /min [facility] 09-10-2023 08:39-0400 Respiratory rate 16 /min [facility] 09-10-2023 08:39-0400 SaO2% (BldA) [Mass fraction] 96 % [facility] 09-10-2023 08:39-0400 Systolic blood pressure 115 mm[Hg] [facility] 09-09-2023 13:39-0400 Body temperature 97.1 [degF] [facility] 09-09-2023 13:39-0400 Diastolic blood pressure 65 mm[Hg] [facility] 09-09-2023 13:39-0400 Heart rate 72 /min [facility] 09-09-2023 13:39-0400 Respiratory rate 16 /min [facility] 09-09-2023 13:39-0400 SaO2% (BldA) [Mass fraction] 97 % [facility] 09-09-2023 13:39-0400 Systolic blood pressure 110 mm[Hg] [facility] 09-09-2023 08:39-0400 Body height 160.02 cm [facility] 07-31-2023 16:35-0400 Body height 160.7 cm Windy Yuen MD Work Phone: [facility] 07-31-2023 16:35-0400 Body weight 59.88 kg Windy Yuen MD Work Phone: [facility] 07-31-2023 16:35-0400 Diastolic blood pressure 50 mm[Hg] Windy Yuen MD Work Phone: [facility] 07-31-2023 16:35-0400 Heart rate 72 /min Windy Yuen MD Work Phone: [facility] 07-31-2023 16:35-0400 SaO2% (BldA) [Mass fraction] 96 % Windy Yuen MD Work Phone: [facility] 07-31-2023 16:35-0400 Systolic blood pressure 91 mm[Hg] Windy Yuen MD Work Phone: [facility] 04-29-2022 04:53-0500 Diastolic blood pressure 82 mm[Hg] [facility] Work Phone: 04-29-2022 04:53-0500 Heart rate 70 /min [facility] Work Phone: 04-29-2022 04:53-0500 Respiratory rate 16 /min [facility] Work Phone: 04-29-2022 04:53-0500 SaO2% (BldA) [Mass fraction] 98 % [facility] Work Phone: 04-29-2022 04:53-0500 Systolic blood pressure 124 mm[Hg] [facility] Work Phone: 04-28-2022 21:57-0500 Body height 160.02 cm [facility] Work Phone: 04-28-2022 21:57-0500 Body mass index (BMI) [Ratio] 24.1 kg/m2 [facility] Work Phone: 04-28-2022 21:57-0500 Body temperature 96.2 [degF] [facility] Work Phone: 04-28-2022 21:57-0500 Body weight 61.87 kg [facility] Work Phone: 03-01-2022 13:29-0400 Diastolic blood pressure 63 mm[Hg] [facility] Work Phone: 03-01-2022 13:29-0400 Heart rate 77 /min [facility] Work Phone: 03-01-2022 13:29-0400 Respiratory rate 18 /min [facility] Work Phone: 03-01-2022 13:29-0400 SaO2% (BldA) [Mass fraction] 93 % [facility] Work Phone: 03-01-2022 13:29-0400 Systolic blood pressure 102 mm[Hg] [facility] Work Phone: 03-01-2022 10:29-0400 Body temperature 97.2 [degF] [facility] Work Phone: 03-01-2022 10:25-0400 Body mass index (BMI) [Ratio] 21.9 kg/m2 [facility] Work Phone: 03-01-2022 10:25-0400 Body weight 56.1 kg [facility] Work Phone: 11-15-2021 11:23-0400 Body weight 55.79 kg La Nena Lala MD Work Phone: [facility] 11-15-2021 11:23-0400 Diastolic blood pressure 67 mm[Hg] La Nena Lala MD Work Phone: [facility] 11-15-2021 11:23-0400 Heart rate 85 /min La Nena Lala MD Work Phone: [facility] 11-15-2021 11:23-0400 Respiratory rate 16 /min La Nena Lala MD Work Phone: [facility] 11-15-2021 11:23-0400 SaO2% (BldA) [Mass fraction] 99 % La Nena Lala MD Work Phone: [facility] 11-15-2021 11:23-0400 Systolic blood pressure 105 mm[Hg] La Nena Lala MD Work Phone: [facility] 08-30-2021 20:07-0400 Diastolic blood pressure 74 mm[Hg] Dr. Rg Menchaca Work Phone: [facility] Work Phone: 08-30-2021 20:07-0400 Heart rate 69 /min Dr. Rg Menchaca Work Phone: [facility] Work Phone: 08-30-2021 20:07-0400 Respiratory rate 18 /min Dr. Rg Menchaca Work Phone: [facility] Work Phone: 08-30-2021 20:07-0400 SaO2% (BldA) [Mass fraction] 96 % Dr. Rg Menchaca Work Phone: [facility] Work Phone: 08-30-2021 20:07-0400 Systolic blood pressure 94 mm[Hg] Dr. Rg Menchaca Work Phone: [facility] Work Phone: 08-30-2021 18:05-0400 Body height 154.[address] Rg Menchaca Work Phone: [facility] Work Phone: 08-30-2021 18:05-0400 Body mass index (BMI) [Ratio] 25.9 kg/m2 Dr. Rg Menchaca Work Phone: [facility] Work Phone: 08-30-2021 18:05-0400 Body temperature 96.8 [degF] Dr. Rg Menchaca Work Phone: [facility] Work Phone: 08-30-2021 18:05-0400 Body weight 62.[address] Rg Menchaca Work Phone: [facility] Work Phone: 08-19-2021 14:30-0400 Body temperature 98.9 [degF] Dr. Rg Menchaca Work Phone: [facility] Work Phone: 08-19-2021 14:30-0400 Diastolic blood pressure 68 mm[Hg] Dr. Rg Menchaca Work Phone: [facility] Work Phone: 08-19-2021 14:30-0400 Heart rate 88 /min Dr. Rg Menchaca Work Phone: [facility] Work Phone: 08-19-2021 14:30-0400 Respiratory rate 18 /min Dr. Rg Menchaca Work Phone: [facility] Work Phone: 08-19-2021 14:30-0400 SaO2% (BldA) [Mass fraction] 96 % Dr. Rg Menchaca Work Phone: [facility] Work Phone: 08-19-2021 14:30-0400 Systolic blood pressure 104 mm[Hg] Dr. Rg Menchaca Work Phone: [facility] Work Phone: 08-19-2021 12:54-0400 Body height 154.[address] Rg Menchaca Work Phone: [facility] Work Phone: 08-19-2021 12:54-0400 Body weight 53.[address] Rg Menchaca Work Phone: [facility] Work Phone: 08-18-2021 21:27-0400 Body mass index (BMI) [Ratio] 22.2 kg/m2 Dr. Rg Menchaca Work Phone: [facility] Work Phone: 08-18-2021 20:57-0400 Body temperature 98 [degF] [facility] Work Phone: 08-18-2021 20:57-0400 Diastolic blood pressure 62 mm[Hg] [facility] Work Phone: 08-18-2021 20:57-0400 Heart rate 74 /min [facility] Work Phone: 08-18-2021 20:57-0400 Respiratory rate 16 /min [facility] Work Phone: 08-18-2021 20:57-0400 SaO2% (BldA) [Mass fraction] 98 % [facility] Work Phone: 08-18-2021 20:57-0400 Systolic blood pressure 106 mm[Hg] [facility] Work Phone: 08-18-2021 17:31-0400 Body height 159.99 cm [facility] Work Phone: 08-18-2021 17:31-0400 Body mass index (BMI) [Ratio] 21.4 kg/m2 [facility] Work Phone: 08-18-2021 17:31-0400 Body weight 54.9 kg [facility] Work Phone: Encounters Encounter Date Encounter Type Care Provider Facility Start: 02-04-2025 ambulatory [facility]y [facility] Start: 02-03-2025 ambulatory [facility] Start: 02-02-2025 End: 02-02-[address] Windy Yuen MD -[facility] Work Phone: Start: 02-02-2025 End: 02-02-[address] Rg Menchaca MD Work Phone: -[facility] Start: 01-08-2025 End: 01-08-2025 Patient encounter procedure [...] Start: 11-11-2024 End: 11-11-2024 ambulatory WINDY YUEN Facility:[facility] Start: 11-11-2024 End: 11-11-2024 Patient encounter procedure Windy Yuen MD Work Phone: Neurology Comment on above: Stiff person syndrom e Start: 11-05-2024 End: 11-05-[address] Windy Yuen MD -[facility] Work Phone: Start: 11-05-2024 End: 11-05-[address] Rg Menchaca MD Work Phone: [facility] Work Phone: Start: 11-04-2024 End: 11-04-[address] Windy Yuen MD -[facility] Work Phone: Start: 11-04-2024 End: 11-04-[address] Rg Menchaca MD Work Phone: [facility] Work Phone: Start: 11-03-2024 End: 11-03-[address] Windy Yuen MD -[facility] Work Phone: Start: 11-03-2024 End: 11-03-[address] Rg Menchaca MD Work Phone: [facility] Work Phone: Start: 10-08-2024 End: 10-08-[address] Windy Yuen MD -[facility] Work Phone: Start: 10-08-2024 End: 10-08-2024 ambulatory Windy Yuen Facility:[facility] Start: 10-07-2024 End: 10-07-[address] Windy Yuen MD -[facility] Work Phone: Start: 10-07-2024 End: 10-07-[address] Rg Menchaca MD Work Phone: [facility] Work Phone: Start: 10-06-2024 End: 10-06-[address] Windy Yuen MD -[facility] Work Phone: Start: 10-06-2024 End: 10-06-[address] Rg Menchaca MD Work Phone: [facility] Work Phone: Start: 09-10-2024 End: 09-10-[address] Windy Yuen MD -[facility] Work Phone: Start: 09-10-2024 End: 09-10-[address] Rg Menchaca MD Work Phone: [facility] Work Phone: Start: 09-09-2024 End: 09-09-[address] Windy Yuen MD -[facility] Work Phone: Start: 09-09-2024 End: 09-09-[address] Rg Menchaca MD Work Phone: [facility] Work Phone: Start: 09-08-2024 End: 09-08-[address] Windy Yuen MD -[facility] Work Phone: Start: 09-08-2024 End: 09-08-2024 ambulatory [facility] Facility[facility] Start: 08-13-2024 End: 08-13-[address] Windy Yuen MD -[facility] Work Phone: Start: 08-13-2024 End: 08-13-[address] Rg Menchaca MD Work Phone: [facility] Work Phone: Start: 08-12-2024 End: 08-12-[address] Windy Yuen MD -[facility] Work Phone: Start: 08-12-2024 End: 08-12-[address] Rg Menchaca MD Work Phone: [facility] Work Phone: Start: 08-11-2024 End: 08-11-[address] Windy Yuen MD -[facility] Work Phone: Start: 08-11-2024 End: 08-11-[address] Rg Menchaca MD Work Phone: [facility] Work Phone: Start: 07-16-2024 End: 07-16-[address] Windy Yuen MD -[facility] Work Phone: Start: 07-16-2024 End: 07-16-2024 ambulatory [facility] Start: 07-15-2024 End: 07-15-[address] Windy Yuen MD -[facility] Work Phone: Start: 07-15-2024 End: 07-15-2024 ambulatory [facility] Start: 07-14-2024 End: 07-14-[address] Windy Yuen MD -[facility] Work Phone: Start: 07-14-2024 End: 07-14-2024 ambulatory [facility] Start: 06-18-2024 End: 06-18-[address] Windy Yuen MD -[facility] Work Phone: Start: 06-18-2024 End: 06-18-2024 ambulatory [facility] Start: 06-17-2024 End: 06-17-[address] Windy Yuen MD -[facility] Work Phone: Start: 06-17-2024 End: 06-17-2024 ambulatory [facility] Start: 06-16-2024 End: 06-16-[address] Windy Yuen MD -[facility] Work Phone: Start: 06-16-2024 End: 06-16-2024 ambulatory [facility] Start: 05-22-2024 End: 05-22-[address] Windy Yuen MD -[facility] Work Phone: Start: 05-22-2024 End: 05-22-2024 ambulatory [facility] Start: 05-21-2024 End: 05-21-[address] Windy Yuen MD -[facility] Work Phone: Start: 05-21-2024 End: 05-21-2024 ambulatory [facility] Start: 05-19-2024 End: 05-19-[address] Windy Yuen MD -[facility] Work Phone: Start: 05-19-2024 End: 05-19-2024 ambulatory Windy Spolter Facility:[facility] Start: 04-23-2024 End: 04-23-[address] Windy Yuen MD -[facility] Work Phone: Start: 04-23-2024 End: 04-23-2024 ambulatory Windy Spolter Facility:[facility] Start: 04-22-2024 End: 04-22-[address] Windy Yuen MD -[facility] Work Phone: Start: 04-22-2024 End: 04-22-2024 ambulatory Windy Spolter Facility:[facility] Start: 04-21-2024 End: 04-21-[address] Windy Yuen MD -[facility] Work Phone: Start: 04-21-2024 End: 04-21-2024 ambulatory Windy Spolter Facility:[facility] Start: 03-26-2024 End: 03-26-2024 ambulatory Windy Spolter Facility:[facility] Start: 03-25-2024 End: 03-25-2024 ambulatory Windy Spolter Facility:[facility] Start: 03-24-2024 End: 03-24-2024 ambulatory Windy Spolter Facility:[facility] Start: 02-27-2024 End: 02-27-2024 ambulatory Windy Spolter Facility:[facility] Start: 02-26-2024 End: 02-26-2024 ambulatory Windy Spolter Facility:[facility] Start: 02-25-2024 End: 02-25-2024 ambulatory Windy Spolter Facility:[facility] Start: 02-06-2024 End: 02-06-2024 Telephone encounter Windy Yuen MD Work Phone: Neurology Comment on above: Orders (IVIG) Start: 02-05-2024 End: 02-05-2024 ambulatory WINDY YUEN Facility:[facility] Start: 02-05-2024 End: 02-05-2024 Patient encounter procedure Windy Yuen MD Work Phone: Neurology Comment on above: Stiff person syndrom e Start: 11-24-2023 Telephone encounter Windy Yuen MD Work Phone: Neurology Comment on above: Appointment (Update faxed to [facility] for appointment 02/05/24) Start: 11-14-2023 Telephone encounter Windy Yuen MD Work Phone: Neurology Start: 10-29-2023 Telephone encounter Windy Yuen MD Work Phone: Neurology Comment on above: Appointment (Appoint ment Update Faxed to [facility] for 12/17/23) Start: 10-15-2023 Telephone encounter Windy Yuen MD Work Phone: Neurology Comment on above: Patient Update Start: 09-25-2023 Telephone encounter Windy Yuen MD Work Phone: Neurology Comment on above: Appointment Start: 09-18-2023 Telephone encounter Windy Yuen MD Work Phone: Neurology Comment on above: Medication Question Start: 09-13-2023 End: 09-13-2023 ambulatory [facility] Work Phone: Start: 09-13-2023 End: 09-13-2023 Patient encounter procedure [facility] Work Phone: Start: 09-12-2023 End: 09-12-2023 ambulatory [facility] Work Phone: Start: 09-12-2023 End: 09-12-2023 Patient encounter procedure [facility] Work Phone: Start: 09-11-2023 End: 09-11-2023 ambulatory [facility] Work Phone: Start: 09-11-2023 End: 09-11-2023 Patient encounter procedure [facility] Work Phone: Start: 09-10-2023 End: 09-10-2023 ambulatory [facility] Work Phone: Start: 09-10-2023 End: 09-10-2023 Patient encounter procedure [facility] Work Phone: Start: 09-09-2023 End: 09-09-2023 ambulatory [facility] Work Phone: Start: 09-09-2023 End: 09-09-2023 Patient encounter procedure [facility] Work Phone: Start: 08-13-2023 Telephone encounter Windy Yuen MD Work Phone: [facility] Start: 07-31-2023 End: 07-31-2023 Patient [...] patient La Nena Lala MD Work Phone: [facility] Start: 05-31-2022 Telephone encounter La Nena Keen i, MD Work Phone: Endocrinology Comment on above: Appointment (Resched ule ) Start: 04-28-2022 End: 04-29-2022 Emergency department patient visit [facility] Start: 04-18-2022 ambulatory UNKNOWN PROVIDER Facili ty:[facility] Start: 04-18-2022 End: 04-18-2022 Patient encounter procedure Maryan Loving DPM Work Phone: Podiatry Comment on above: Cavovarus deformity of foot, acquired, right (Primary Dx); Other osteoporosis without current pathological fracture; Hammertoe, bilateral Start: 04-18-2022 End: 04-18-2022 Subsequent hospital visit by physician Radio [facility] Sandy Newman Work Phone: Radiology Comment on above: Pain [R52] Start: 03-08-2022 ambulatory Facility:[facility] Start: 03-01-2022 End: 03-01-2022 Emergency department patient visit [facility] Start: 11-15-2021 End: 11-16-2021 ambulatory UNKNOWN PROVIDER Facility:[facility] Start: 11-15-2021 End: 11-15-2021 Patient encounter procedure La Nena Lala MD Work Phone: Endocrinology Comment on above: Acquired hypothyroid ism (Primary Dx); Poorly controlled type 1 diabetes mellitus (HCC) Start: 08-30-2021 End: 08-30-2021 Emergency department patient visit Dr. Rg Menchaca Work Phone: [facility] Start: 08-19-2021 Non-patient / Non-visit Dr. Eron Menchaca Work Phone: [facility] Start: 08-18-2021 End: 08-19-2021 Evaluation and management of inpatient [facility] Procedures Date Procedure Procedure [...] AM EST Office Visit Neurology [address] [place] [address] Windy Yuen MD [address] [facility] [address] [place] [address] Neurology Start: 01-18-2025 Influenza vaccination Influenz a Vaccine (Season Ended) [facility] Start: 01-07-2025 Iv infusion therapy prophylaxis/dx ea hour THER/PROPH/DIAG IV INF [facility] Start: 01-07-2025 Iv infusion therapy/prophylaxis /dx 1st to 1 hr THER/PROPH/DIAG IV INF [facility] Start: 01-07-2025 Therapeutic injectio n iv push each new drug TX/PRO/DX INJ NEW DRUG [facility] Start: 12-03-2024 Iv infusion therapy prophylaxis/dx ea hour THER/PROPH/DIAG IV INF [facility] Start: 12-03-2024 Iv infusion therapy/prophylaxis /dx 1st to 1 hr THER/PROPH/DIAG IV INF [facility] Start: 12-03-2024 Therapeutic injectio n iv push each new drug TX/PRO/DX INJ NEW DRUG [facility] Start: 11-04-2024 Iv infusion therapy prophylaxis/dx ea hour THER/PROPH/DIAG IV INF [facility] Start: 11-04-2024 Iv infusion therapy/prophylaxis /dx 1st to 1 hr THER/PROPH/DIAG IV INF [facility] Start: 11-04-2024 Therapeutic injectio n iv push each new drug TX/PRO/DX INJ NEW DRUG [facility] Start: 10-07-2024 Iv infusion therapy prophylaxis/dx ea hour THER/PROPH/DIAG IV INF [facility] Start: 10-07-2024 Iv infusion therapy/prophylaxis /dx 1st to 1 hr THER/PROPH/DIAG IV INF [facility] Start: 10-07-2024 Therapeutic injectio n iv push each new drug TX/PRO/DX INJ NEW DRUG [facility] Start: 09-10-2024 Iv infusion therapy prophylaxis/dx ea hour THER/PROPH/DIAG IV INF [facility] Start: 04-24-2025 Iv infusion therapy/prophylaxis /dx 1st to 1 hr THER/PROPH/DIAG IV INF [facility] Start: 09-10-2024 Therapeutic injectio n iv push each new drug TX/PRO/DX INJ NEW DRUG [facility] Start: 08-11-2024 Iv infusion therapy prophylaxis/dx ea hour THER/PROPH/DIAG IV INF [facility] Start: 08-11-2024 Iv infusion therapy/prophylaxis /dx 1st to 1 hr THER/PROPH/DIAG IV INF [facility] Start: 08-11-2024 Therapeutic injectio n iv push each new drug TX/PRO/DX INJ NEW DRUG [facility] Start: 08-11-2024 End: 08-11-2024 Patient encounter procedure 08/11/2024 12:00 PM EDT Office Visit Neurology [address] [place] [address] Windy Yuen MD [address] [place] [address] 6 mo Neurology Comment on above: 6 mo Start: 07-16-2024 Iv infusion therapy prophylaxis/dx ea hour THER/PROPH/DIAG IV INF [facility] Start: 07-16-2024 Iv infusion therapy/prophylaxis /dx 1st to 1 hr THER/PROPH/DIAG IV INF [facility] Start: 07-16-2024 Therapeutic injectio n iv push each new drug TX/PRO/DX INJ NEW DRUG [facility] Start: 05-20-2024 Advance Directive Discussion Advance Directive Discussion [facility] Start: 05-20-2024 Medicare Advantage Annual Wellness Visit Medicare Advantage Annual Wellness Visit [facility] Start: 02-05-2024 End: 02-05-2024 Patient encounter procedure 02/05/2024 11:30 AM EDT Office Visit Neurology [address] [facility] [address] [place] [address] Windy Yuen MD [address] [place] [address] 3 mo follow up Neurology Comment on above: 3 mo follow up Start: 01-19-2024 Covid-19 Vaccine ( season) Covid-19 Vaccine ( season) [facility] Start: 01-19-2024 Covid-19 Vaccine ( season) Covid-19 Vaccine () [facility] Start: 01-19-2024 Influenza vaccination C [facility] Start: 12-17-2023 End: 12-17-2023 Patient encounter procedure 12/17/2023 12:00 PM EDT Office Visit Neurology [address] [place] [address] Windy Yuen MD [address] [place] [address] 3 mo follow up- 09/24 mychart message [...] 05-20-2023 Advance Directive Discussion Advance Directive Discussion [facility] Start: 05-20-2023 Behavioral Health Screening Behavioral Health Screening [facility] Start: 05-20-2023 Depression Assessment Depression Ass essment [facility] Start: 01-18-2023 Covid-19 Vaccine ( season) Covid-19 Vaccine () [facility] Start: 01-18-2023 Influenza vaccination Influenza Vacc ine (#1) [facility] Start: 11-15-2022 3 comp foot exam completed DIABETIC FOOT EXAM [facility] Start: 11-15-2022 Diabetic foot examination Diabetic Foot Exam [facility] Start: 05-20-2022 ADVANCE DIRECTIVE DISCUSSION ADVANCE DIRECTIVE DISCUSSION [facility] Start: 05-20-2022 DEPRESSION ASSESSMENT DEPRESSION ASS ESSMENT [facility] Start: 02-15-2022 Hemoglobin A1c measurement HbA1C [facility] Start: 02-15-2022 Hemoglobin A1c/Hemoglobin.total in Blood HBA1C [facility] Start: 01-18-2022 [facility] Start: 11-15-2021 End: 01-15-2022 C peptide [Mass/volume] in Serum or Plasma [facility] Work Phone: Comment on above: Expected: 11/15/2021 , Expires: 01/15/2022 Start: 11-15-2021 End: 11-15-2022 Glutamate decarboxylase 65 Ab [Units/volume] in Serum [facility] Work Phone: Comment on above: Expected: 11/15/2021 , Expires: 11/15/2022 Start: 11-15-2021 End: 11-15-2022 INSULIN ANTIBODY BLD [facility] Work Phone: Comment on above: Expected: 11/15/2021 , Expires: 11/15/2022 Start: 11-15-2021 End: 01-15-2022 INSULINOMA ASSOCIATED ANTIBODY 2 [facility] Work Phone: Comment on above: Expected: 11/15/2021 , Expires: 01/15/2022 Start: 11-15-2021 End: 11-15-2022 Pancreatic islet cell Ab [Titer] in Serum [facility] Work Phone: Comment on above: Expected: 11/15/2021 , Expires: 11/15/2022 Start: 11-15-2021 End: 01-15-2022 Thyroxine (T4) free [Mass/volume] in Serum or Plasma [facility] Work Phone: Comment on above: Expected: 11/15/2021 , Expires: 01/15/2022 Start: 05-20-2021 ADVANCE DIRECTIVE DISCUSSION ADVANCE DIRECTIVE DISCUSSION [facility] Start: 05-20-2021 DEPRESSION ASSESSMENT DEPRESSION ASS ESSMENT [facility] Start: 04-17-2021 COVID-19 VACCINE (2 - Pfizer series) COVID-19 VACCINE (2 - Pfizer series) [facility] Start: 04-21-2019 ANNUAL PCP TEAM PRINTED CIRCUIT BOARD PANELS DEBURRER ANDREY DISEASE VISIT ANNUAL PCP TEAM CHRONIC DISEASE VISIT [facility] Start: 03-08-2018 Hepatitis B surface antibody level LDL CHOLESTEROL [facility] Start: 2017 RSV Vaccine (1 - 1-d ose 75+ series) RSV Vaccine (1 - 1-dose 75+ series) [facility] Start: 05-21-2016 PNEUMOCOCCAL: 65+ (2 - PPSV23 if available, else PCV20) PNEUMOCOCCAL: 65+ (2 - PPSV23 if available, else PCV20) [facility] Start: 05-21-2016 PNEUMOCOCCAL: 65+ (2 - PPSV23 or PCV20) PNEUMOCOCCAL: 65+ (2 - PPSV23 or PCV20) [facility] Start: 07-16-2015 Pneumococcal Vaccine : 50+ (2 of 2 - PPSV23) Pneumococcal Vaccine: 50+ (2 of 2 - PPSV23) [facility] Start: 07-16-2015 Pneumococcal Vaccine : 65+ (2 - PPSV23 or PCV20) Pneumococcal Vaccine: 65+ (2 - PPSV23 or PCV20) [facility] Start: 07-16-2015 Pneumococcal Vaccine : 65+ (2 of 2 - PPSV23 or PCV20) Pneumococcal Vaccine: 65+ (2 of 2 - PPSV23 or PCV20) [facility] Start: 07-16-2015 PNEUMOCOCCAL: 65+ (2 - PPSV23 if available, else PCV20) PNEUMOCOCCAL: 65+ (2 - PPSV23 if available, else PCV20) [facility] Start: 2007 BONE DENSITY BONE DENSITY [facility] Start: 2007 Bone Density Screening Bone Density Screening [facility] Start: 2007 Screening for osteoporosis Bone Density Screening [facility] Start: 2002 Hepatitis B Vaccine (1 of 3 - Risk 3-dose series) Hepatitis B Vaccine (1 of 3 - Risk 3-dose series) [facility] Start: 2002 RSV Vaccine (1 - 1-d ose 60+ series) RSV Vaccine (1 - 1-dose 60+ series) [facility] Start: 1992 SHINGRIX VACCINE (1 of 2) SHINGRIX VACCINE (1 of 2) [facility] Start: 1961 Urine microalbumin profile [facility] Start: 1960 Depression Screening Depression Scre ening [facility] Start: 1954 Adult depression screening assessment DEPRESSION SCREENING [facility] Start: 1952 Glaucoma screening Dilated Retinal E xam [facility] Start: 1952 Hepatitis B screening URINE ALBUMIN:CREATININE RATIO [facility] Start: 1952 Hepatitis C antibody , confirmatory test DILATED RETINAL EXAM [facility] Patient Education [facility] Work Phone: Patient referral [facility] Work Phone: [facility] Immunizations Immunization Date Immunization Notes Care Provider [facility] 08-24-2020 influenza, injectabl e, quadrivalent, preservative free [facility] 08-24-2020 influenza, seasonal, injectable Dr. Rg Menchaca Work Phone: [facility] Work Phone: 08-24-2020 influenza virus vaccine, unspecified formulation Luis Eduardo Clemons Jr., MD Work Phone: [facility] 04-07-2018 Influenza virus vaccine [facility] 03-14-2018 influenza, high dose seasonal, preservative-free La Nena Lala MD Work Phone: [facility] Work Phone: 2017 influenza, high dose seasonal, preservative-free La Nena Lala MD Work Phone: [facility] 05-21-2015 pneumococcal conjuga te vaccine, 13 valent La Nena Lala MD Work Phone: [facility] Payers Date Payer Category Payer Self-pay [id number] 2024 Unknown [id number] 2022 Medicare UHC MEDICARE UHC DUAL COMPLETE HMO POS SNP [id number] 2022-Present [phone] [address] [place] [address] Medicare [id number] 2022 Medicare (Managed Care) [facility] DUAL COMPLETE HMO POS SNP [id number] 2022 Unknown [id number] 2021 Medicaid [facility] MEDICAID MYC ARE [facility] MEDICAID [id number] 2021-Present [phone] [address] [place] [address] Medicaid [id number] 2021 Medicaid [id number] 2021 Unknown [id number] Medicare [id number] Unknown [id number] 2.16.840.1.172828.3.579.2. 462 Unknown [id number] 2.16.840.1.751659.3.579.2. 462 Unknown [id number] 2.16.840.1.564458.3.579.2. 462 Unknown [id number] 2.16.840.1.613646.3.579.2. 462 Unknown [id number] 2.16.840.1.888043.3.579.2. 462 Unknown [id number] 2.16.840.1.992202.3.579.2. 462 Unknown [id number] 2.16.840.1.122100.3.579.2. 462 Unknown [id number] 2.16.840.1.206746.3.579.2. 462 Unknown [id number] 2.16.840.1.614036.3.579.2. 462 Unknown [id number] 2.16.840.1.825759.3.579.2. 462 Unknown [id number] 2.840.1.411465.3.579.2. 462 Unknown [id number] 2.840.1.128443.3.579.2. 462 Unknown [id number] 2.840.1.580347.3.579.2. 462 Unknown [id number] 2.840.1.704004.3.579.2. 462 Unknown [id number] 2.840.1.879061.3.579.2. 462 Unknown [id number] 2.840.1.755829.3.579.2. 462 Unknown [id number] 2.840.1.068289.3.579.2. 462 Unknown [id number] 2.840.1.445422.3.579.2. 462 Unknown [id number] 2.840.1.418158.3.579.2. 462 Unknown [id number] 2.16.840.1.677011.3.579.2. 462 Unknown [id number] 2.16.840.1.181265.3.579.2. 462 Unknown [id number] 2.16.840.1.471892.3.579.2. 462 Unknown [id number] 2.840.1.224363.3.579.2. 462 Unknown [id number] 2.16.840.1.959532.3.579.2. 462 Unknown [id number] 2.16.840.1.619437.3.579.2. 462 Unknown [id number] 2.16.840.1.463948.3.579.2. 462 Unknown [id number] 2.16.840.1.772746.3.579.2. 462 Unknown [id number] 2.16.840.1.980442.3.579.2. 462 Unknown [id number] 2.16.840.1.160308.3.579.2. 462 Unknown [id number] 2.16.840.1.847364.3.579.2. 462 Unknown [id number] 2.16.840.1.470609.3.579.2. 462 Unknown [id number] 2.16.840.1.543411.3.579.2. 462 Unknown [id number] 2.16.840.1.273430.3.579.2. 462 Unknown [id number] 2.16.840.1.418741.3.579.2. 462 Unknown [id number] 2.16.840.1.994787.3.579.2. 462 Unknown [id number] 2.16.840.1.081213.3.579.2. 462 Unknown [id number] 2.16.840.1.844661.3.579.2. 462 Unknown [id number] 2.16.840.1.085610.3.579.2. 462 Unknown [id number] 2.16840.1.964177.3.579.2. 462 Social History Date Type Detail Facility Start: 08-18-2021 End: 04-28-2022 Tobacco smoking status MDIS Unknown if ever smoked [facility] Start: 11-28-2018 None [facility] Start: 11-28-2018 Senior Care [facility] Start: 11-28-2018 Non-smoker [facility] Start: 1940 Sex Assigned At Female C [facility] Start: 01-07-2018 End: 04-28-2022 Tobacco smoking status NHIS Ex-smoker [facility] Start: 01-07-2018 End: 07-31-2023 Tobacco use and exposure Smokeless tobacco non-user [facility] Start: 1940 Sex Assigned At Not on file [facility] Start: 11-05-2021 End: 04-18-2022 Exposure to SARS-CoV-2 (event) Not sure [facility] History of tobacco use Current smoker [facility] Start: 04-18-2022 End: 02-05-2024 Alcohol intake Ex-drinker (finding) [facility] Start: 04-18-2022 End: 02-05-2024 History of Social function [facility] Start: 04-18-2022 End: 02-05-2024 Tobacco use panel [facility] National Score (1-10 0), lower number is lower risk 70 [facility] Start: 05-31-2022 Gender identity Identifies as female gender (finding) [facility] Start: 05-31-2022 Sexual orientation Heterosexual (fin jamie) [facility] Start: 08-12-2024 End: 09-11-2024 Sex Female (finding) [facility] Medical Equipment Procedure Code Equipment Code Equipment Origin al Text Equipment Identifier Dates Check blood suga r 4 times daily as intructed. Dx: E11.9. Insulin: yes [id number] Start: 01-17-2018 Comment on above: Check blood sugar 4 times daily as intructed. Dx: E11.9. Insulin: yes Functional Status Date Assessment Result Facility 08-19-2021 Functional status Activity Abili ty With Assist of 2 [facility] Work Phone: Mental Status Date Assessment Result Facility 02-02-2025 Cognitive function Awake;Alert;A ppropriate;[facility] Work Phone: 01-08-2025 Cognitive function Awake;Alert;A ppropriate;Follow [facility] Work Phone: 01-07-2025 Cognitive function Awake;Alert;A ppropriate;Follow [facility] Work Phone: 01-06-2025 Cognitive function Awake;Alert;A ppropriate;Follow [facility] Work Phone: 12-03-2024 Cognitive function Awake;Alert;A ppropriate;[facility] Work Phone: 12-02-2024 Cognitive function Voice/Name [facility] Work Phone: 12-01-2024 Cognitive function Awake;Alert;A ppropriate;Follow [facility] Work Phone: 11-05-2024 Cognitive function Voice/Name [facility] Work Phone: 11-04-2024 Cognitive function Voice/Name [facility] Work Phone: 11-03-2024 Cognitive function Voice/Name [facility] Work Phone: 10-07-2024 Cognitive function Voice/Name [facility] Work Phone: 10-06-2024 Cognitive function Voice/Name [facility] Work Phone: 09-10-2024 Cognitive function Awake;Alert;A ppropriate;[facility] Work Phone: 09-09-2024 Cognitive function Awake;Alert;A ppropriate;Follow [facility] Work Phone: 09-08-2024 Cognitive function Awake;Alert;A ppropriate;Follow [facility] Work Phone: 08-13-2024 Cognitive function Awake;Alert;A ppropriate;Follow [facility] Work Phone: 08-12-2024 Cognitive function Awake;Alert;A ppropriate;Follow [facility] Work Phone: 08-11-2024 Cognitive function Awake;Alert;A ppropriate;Follow [facility] Work Phone: 07-16-2024 Cognitive function Voice/Name [facility] Work Phone: 07-14-2024 Cognitive function Awake;Alert;A ppropriate;Follow [facility] Work Phone: 06-18-2024 Cognitive function Awake;Alert;A ppropriate;Follow [facility] Work Phone: 06-17-2024 Cognitive function Voice/Name [facility] Work Phone: 06-16-2024 Cognitive function Awake;Alert;A ppropriate;Follow [facility] Work Phone: 05-21-2024 Cognitive function Awake;Alert;A ppropriate;Follow [facility] Work Phone: 04-23-2024 Cognitive function Awake;Alert;A ppropriate;Follow [facility] Work Phone: 04-22-2024 Cognitive function Awake;Alert;A ppropriate;Follow [facility] Work Phone: 04-21-2024 Cognitive function Voice/Name [facility] Work Phone: 09-13-2023 Cognitive function Awake;Alert;A ppropriate;Follow [facility] Work Phone: 09-12-2023 Cognitive function Level Of Cons ciousness Awake;Alert;Appropriate;Follow [facility] Work Phone: 09-11-2023 Cognitive function Awake;Alert;A ppropriate;Follow [facility] Work Phone: 09-10-2023 Cognitive function Voice/Name [facility] Work Phone: 09-09-2023 Cognitive function Awake;Alert;A ppropriate;Follow [facility] Work Phone: 03-01-2022 Cognitive function Level Of Cons ciousness Awake;Alert;Appropriate;Follow [facility] Work Phone: 08-30-2021 Cognitive function Level Of Cons ciousness Awake;Alert;Appropriate;[facility] Work Phone: 08-19-2021 Cognitive function Voice/Name [facility] Work Phone: Clinical Notes 11-15-2021 to 11-11-2024 Patient InstructionsWindy Yuen MD - 11/11/2024 12:00 PM EDTTelephone Encounter - Savannah KellenRAGHU - 02/06/2024 8:02 AM EDTSWindy malik MD - 02/05/2024 11:24 AM EDT Note Date & Type Note Facility 11-11-2024 Instructions Windy Yuen MD - 11/11/2024 12:38 PM EDT - Continue your IVIG infusions at [facility] as before, with three consecutive treatment days [...] the year. Please call my office at [phone] if you need help coordinating your care. documented in this encounter [facility] 11-11-2024 History of Presen t illness Narrative [...] straightening out slightly. She mentions that a student support advisor advised against surgery due to her age. Romain is currently receiving IVIG therapy at [facility], which began with five days per [...] syndrome Confirmed with qulitative and quantitative testing ([facility]) demonstrating high ab titer smo 65 lab study; which is associated with [...] 2g/kg IBW) Fax order to Madelaine at [facility] at [phone] RTC 6 months documented in this encounter [facility] 11-11-2024 Note HNO ID: [id number] Author: WINDY YUEN MD Service: ? Author [...] straightening out slightly. She mentions that a student support advisor advised against surgery due to her age. Romain is currently receiving IVIG therapy at [facility], which began with five days per [...] syndrome Confirmed with qulitative and quantitative testing ([facility]) demonstrating high ab titer som 65 lab [...] 2g/kg IBW) Fax order to Madelaine at [facility] at [phone] RTC 6 months [facility] 02-06-2024 Miscellaneous Notes IVIG order was faxed to Madelaine at [facility] at [phone] with confirmation. documented in this encounter [facility] 02-06-2024 Telephone encounter Note IVIG order was faxed to Madelaine at [facility] at [phone] with confirmation. [facility] 02-05-2024 Note HNO ID: [id number] Author: WINDY YUEN MD Service: ? Author Type: Physician Type: Progress Notes Filed: 02/05/2024 11:52 Note Text: Romain is here for follow up; her daughter joins us on the phone for the appointment. She continues on baclofen and lorazepam. She is getting IVIG over 5 days every month at [facility] Had some trouble with the last [...] syndrome Confirmed with qulitative and quantitative testing ([facility]) demonstrating high ab titer som 65 lab [...] that she can receive the treatments at [facility]. She is now s/p 5 monthly [...] 2g/kg IBW) Fax order to Madelaine at [facility] at [phone] RTC 6 months [facility] 02-05-2024 History of Presen t illness Narrative Images from the original note were not included. Romain is here for follow up; her daughter joins us on the phone for the appointment. She continues on baclofen and lorazepam. She is getting IVIG over 5 days every month at [facility] Had some trouble with the last [...] intrinsic Hip flexion Knee flexion Knee Ext. Admion. Flex Pl. 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 She is now s/p 5 monthly [...] 2g/kg IBW) Fax order to Madelaine at [facility] at [phone] RTC 6 months documented in this encounter [facility] 11-24-2023 Telephone encounter Note Patient's appointment changed from 12/17/23 to 02/05/[address] Yuen being out of the office. Appointment details faxed as requested by Nyla morgan, so patient will have transportation for appointment. Faxed to [facility] [place]: [phone] Confirmation ok. [facility] 11-24-2023 Miscellaneous Notes Patient's appointment changed from 12/17/23 to 02/05/[address] Yuen being out of the office. Appointment details faxed as requested by Nyla morgan, so patient will have transportation for appointment. Faxed to [facility]: [phone] Confirmation ok. documented in this encounter [facility] 10-29-2023 Telephone encounter Note Faxed appointment change/reminder to [facility] [place]: [phone]. Confirmation ok. Appointment date for 12/17/23 arrive by 11:45am. [facility] 10-29-2023 Miscellaneous Notes Faxed appointment change/reminder to [facility] [place]: [phone]. Confirmation ok. Appointment date for 12/17/23 arrive by 11:45am. documented in this encounter [facility] 10-15-2023 Telephone encounter Note Pt daughter would like to speak to Dr Yuen via phone regarding noted changed in mother since starting her injections with her Insulin levels as well as Muscle Spasms [facility] 10-15-2023 Miscellaneous Notes Pt daughter would like to speak to Dr Yuen via phone regarding noted changed in mother since starting her injections with her Insulin levels as well as Muscle Spasms documented in this encounter [facility] 09-18-2023 Telephone encounter Note Spoke to Madelaine and relayed message from provider, she voiced understanding at this time and will let patient and daughter know. [facility] 09-18-2023 Miscellaneous Notes Spoke to Madelaine and [...] tolerates the medication well. Per Madelaine from [facility], this patient's daughter would like to have her IVIG dose changed to a higher dose for a shorter duration. States this was discussed with Dr. Yuen previously. Please advise if this is correct and if so, please call Madelaine back at [phone]. A new order and authorization will be needed. documented in this encounter [facility] 09-18-2023 Telephone encounter Note We should keep [...] and that she tolerates the medication well. [facility] 09-18-2023 Telephone encounter Note Per Madelaine from [facility], this patient's daughter would like to have her IVIG dose changed to a higher dose for a shorter duration. States this was discussed with Dr. Yuen previously. Please advise if this is correct and if so, please call Madelaine back at [phone]. A new order and authorization will be needed. [facility] 08-13-2023 Miscellaneous Notes Faxed office notes, demographic sheet, copy of insurance, we don't have a copy of insurance cards to [phone]. documented in this encounter [facility] 07-31-2023 History of Presen t illness [...] is able to get the IVIG at [facility]. Office notes and IVIG order was faxed to Madelaine at [facility] at [phone] with confirmation. Our office Spoke to Madelaine and she stated that the patient will need documentation showing a failure or inability to tolerate the baclofen, in order to get approved for [facility]. And needs progress note faxed to their office at [phone]. It seems like there was a misunderstanding; [...] syndrome Confirmed with qulitative and quantitative testing ([facility]) demonstrating high ab titer som 65 lab [...] that she can receive the treatments at [facility]. Will send off IVIG rx for insurance approval. RTC 3 months documented in this encounter [facility] 03-25-2023 Miscellaneous Notes The listed home phone number for the patient is her daughter Nyla's phone. Nyla was notified of the canceled appointment and new appointment. The daughter was instructed that the patient must have someone accompany her to the appointment. The patient resides at the [facility]. Ph. [phone] I called the [place] and spoke with Mona and the nurse [...] The appointment reminder was faxed to the [facility]. TC to daughter regarding upcoming appointment with Dr. Clemons. 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 Pt will need to be seen by neuromuscular for treatment and care, per . Samira Vieira LPN documented in this encounter [facility] 07-20-2022 Miscellaneous Notes completed a Virtual Visit with patient and facility. CLOSED Called patients daughter Nyla and left VM to call back office at [phone]. Wanted to check and see how her [...] know why they arranged for this picker time because she would have been [...] after 9 am to make arrangements. Nyla [phone] documented in this encounter [facility] 06-12-2022 Miscellaneous Notes Faxed new orders to the [facility] at [phone],transmission ok CLOSED Addended by: LA NENA LALA [...] Please advise, thanks. documented in this encounter [facility] 06-04-2022 Instructions La Nena Lala MD - 06/04/2022 3:04 PM EST Images from the original note were not included. - Please do blood tests to check TSH, free T4 and A1c, and fax the results to us on [phone] - Please fax the glucose values from the last 2 weeks to us - Do not eat more than 60 g of carbs per meal. documented in this encounter [facility] 06-04-2022 History of Presen t illness Narrative [facility] NOTE Ms. Mcdermott is a 82 year old female with T1DM and hypothyroidism presented for follow-up of hypothyroidism and diabetes. She presented with her daughter HPI She stays in a half-way due to R foot deformity. She saw a student support advisor before and was told that she had [...] 170 Glucose monitoring: She has received the [employer] jeremiah and is being managed by the [...] DM type 1 (diabetes mellitus, type 1) ([facility]) Hypothyroidism PAST SURGICAL HISTORY Procedure Laterality Date [...] an A1c check. She has received the WizeHiveyle jeremiah and has been happy with the experience overall Hypothyroidism: We will continue levothyroxine 75 mcg daily. Her TSH was slightly suppressed. We will check her TFTs now Once we get the results and the glucose readings, we will contact them to give the instructions. [facility] phone number is [phone] Some of the above has been copied from prior documentation on 11/15/2021 but foster elements reviewed, confirmed, and/or updated by me (La Nena Lala MD) on 06/04/2022 I spent a total of 40 minutes on the date of the service which included preparing to see the patient, [id number] patient care, completing clinical documentation, obtaining and/or reviewing separately obtained history, and counseling and educating the patient/family/caregiver. Virtual Visit (Audio/Visual)I have discussed the nature of this visit with the patient which will occur via [facility] (Phone, Virtual Visit) and she agrees to proceed with this interaction. La Nena Lala MD documented in this encounter [facility] 04-18-2022 Note HNO ID: [id number] Author: AVELINO Kahn Service: Radiology Author Type: [...] AVELINO Kahn April 18, 2022 3:06 PM [facility] 04-18-2022 History of Presen t [...] 1 (diabetes mellitus, type 1) (HCC) Hypothyroidism Current Outpatient Medications Medication Sig SENNA-DOCUSATE [...] is to RTC PRN. Maryan Loving DPM, DABJOSE, FACFAS Pager: [phone] Orthopedic and Rheumatologic [facility] and [facility] locations documented in this encounter [facility] 04-18-2022 History of Presen t illness [...] 2022 3:06 PM documented in this encounter [facility] 11-15-2021 History of Presen t illness Narrative [...] to R foot deformity. She saw a student support advisor before and was told that she had [...] which included preparing to see the patient, [id number] patient care, completing clinical documentation, obtaining and/or reviewing separately obtained history, performing a medically appropriate examination, counseling and educating the patient/family/caregiver and ordering medications, tests, or procedures. La Nena Lala MD documented in this encounter [facility] 11-15-2021 Instructions La Nena Lala MD - [...] referred you to orthopedic surgery. Please call [phone] To schedule documented in this encounter [facility] Evaluation note Diagnosis Onset Date SHEKHAR (acute kidney injury) ac shekhar Hyperglycemia due to diabetes mellitus [facility] Work Phone: Evaluation note* Diagnosis Acquired hypothyroidism- Primary Unspecified hypothyroidism Poorly controlled type 1 diabetes mellitus (HCC) Type I (juvenile type) diabetes mellitus without mention of complication, not stated as uncontrolled documented in this encounter [facility] Diagnosis Cavovarus deformity of foot, acquired, right- Primary Other osteoporosis without current pathological fracture Hammertoe, bilateral documented in this encounter [facility] noteNo assessment information availableWOhio[facility] Work Phone: Evaluation note* Diagnosis Poorly controlled type 1 diabetes mellitus (HCC)- Primary Type I (juvenile type) diabetes mellitus without mention of complication, not stated as uncontrolled Acquired hypothyroidism Unspecified hypothyroidism documented in this [facility] Diagnosis Controlled type 2 diabetes mellitus without complication, with long-term current use of insulin (HCC) documented in this encounter [facility] note* 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 [facility] note* Diagnosis 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 If you have any further concerns please return for repeat evaluationWOhioHealth [facility] Hospital Work Phone: Relzqq for referral (narrative)* Diagnostic Procedure Only (Routine) - Closed Specialty Diagnoses / Procedures Referred By Contac t Referred To Contact XR IMAGING Diagnoses Pain Procedures XR FOOT GENERAL 3V AP/LAT/OBL RIGHT RADEX FOOT COMPLETE MINIMUM 3 VIEWS Maryan Loving DPM [id number] [phone] [place] [address] Referral ID Status Reason Start Date Expiration Date V isits Requested Visits Authorized Closed Auto-Generate d Referral 12/04/2021 01/03/2023 1 1 [facility] for referral (narrative)No reason for referral information [facility]City [facility] Work Phone: Rencgw for visit Narrative* Diagnostic Procedure Only (Routine) - Closed Specialty Diagnoses / Procedures Referred By Contac t Referred To Contact XR IMAGING Diagnoses Pain Procedures XR FOOT GENERAL 3V AP/LAT/OBL RIGHT RADEX FOOT COMPLETE MINIMUM 3 VIEWS Maryan Loving DPM [address] [phone] [place] [address] Referral ID Status Reason Start Date Expiration Date V isits Requested Visits Authorized [id number] Closed Auto-Generate d Referral 12/04/2021 01/03/2023 1 1 [facility] Chief Complaint and Reason for Visit Chief [...] 43am IVIG January 08, 2025 7: 38am Chief Complaint Admit Date IVIG October 06, [...] 43am IVIG January 08, 2025 7: 38am IVIG February 02, 2025 7:41am Family History No Family History Records Found Relationship Condition Age at Onset Recorded Date/T jane Not Specified Cardiac disease Unknown Malignant neoplasm Unknown Advance Directives No Advanced Directives Records Found Advance Directive Response Recorded Date/ Time Living Will No August 18, 2021 6:10pm Power of Silviculturist No August 18 6:10pm Advance Directive Response Recorded Date/ Time Living Will No August 18, 2021 9:27pm Power of Silviculturist No August 18 9:27pm Advance Directive Response Recorded Date/ Time Living Will No August 30, 2021 6:13pm Power of Silviculturist No August 30 6:13pm Advance Directive Response Recorded Date/ Time Name of Medical Power of Silviculturist Nyla Mcnulty April 28, 2022 10:03pm Living Will Yes April 28, 10:03pm Power of Silviculturist Yes April 28, 2022 10:03pm Advance Directive Response Recorded Date/ Time Living Will Yes April 28 022 11:03pm Power of Silviculturist Yes April 28, 2022 11:03pm Reason for Referral Specialty Diagnoses / Procedures Referred By Contac t Referred To Contact Orthopedics Diagnoses Acquired hypothyroidism Poorly controlled type 1 diabetes mellitus (HCC) Procedures CONSULT TO ORTHOPAEDICS OFFICE/OUTPATIENT [facility] MDM 60-74 MINUTES La Nena Lala MD [address] [place] [address] Referral ID Status Reason Start Date Expiration Date Visits Requested Visits Authorized [id number] Authorized PCP Requested Referral 11/15/2021 11/15/2022 1 1 Specialty Diagnoses / Procedures Referred By Contac t Referred To Contact Diagnoses Stiff person syndrome Procedures PROVIDER ORDERED FOLLOW UP OFFICE/OUTPATIENT [facility] MDM 60 MINUTES Windy Yuen MD [address] [facility] [address] [place] [address] Referral ID Status Reason Start Date Expiration Date Visits Requested Visits Authorized [id number] Authorized PCP Requested Referral 10/31/2023 07/30/2024 1 [...] or prosecute any alcohol or drug abuse patient.[facility] the event this information is protected by the Federal Confidentiality of Alcohol and Drug Abuse Patient Records regulations: The Federal rules restrict any use of the information to criminally investigate or prosecute any alcohol or drug abuse patient.[facility] the event this information is protected by the Federal Confidentiality of Alcohol and Drug Abuse Patient Records regulations: The Federal rules restrict any use of the information to criminally investigate or prosecute any alcohol or drug abuse patient.[facility]In the event this information is protected by the Federal Confidentiality of Alcohol and Drug Abuse Patient Records regulations: The Federal rules restrict any use of the information to criminally investigate or prosecute any alcohol or drug abuse patient.[facility]In the event this information is protected by the Federal Confidentiality of Alcohol and Drug Abuse Patient Records regulations: The Federal rules restrict any use of the information to criminally investigate or prosecute any alcohol or drug abuse patient.[facility] the event this information is protected by the Federal Confidentiality of Alcohol and Drug Abuse Patient Records regulations: The Federal rules restrict any use of the information to criminally investigate or prosecute any alcohol or drug abuse patient.[facility] the event this information is protected by the Federal Confidentiality of Alcohol and Drug Abuse Patient Records regulations: The Federal rules restrict any use of the information to criminally investigate or prosecute any alcohol or drug abuse patient.[facility] the event this information is protected by the Federal Confidentiality of Alcohol and Drug Abuse Patient Records regulations: The Federal rules restrict any use of the information to criminally investigate or prosecute any alcohol or drug abuse patient.[facility] HospitalIn the event this information is protected by the Federal Confidentiality of Alcohol and Drug Abuse Patient Records regulations: The Federal rules restrict any use of the information to criminally investigate or prosecute any alcohol or drug abuse patient.[facility] HospitalIn the event this information is protected by the Federal Confidentiality of Alcohol and Drug Abuse Patient Records regulations: The Federal rules restrict any use of the information to criminally investigate or prosecute any alcohol or drug abuse patient.[facility] HospitalIn the event this information is protected by the Federal Confidentiality of Alcohol and Drug Abuse Patient Records regulations: The Federal rules restrict any use of the information to criminally investigate or prosecute any alcohol or drug abuse patient.[facility] HospitalIn the event this information is protected by the Federal Confidentiality of Alcohol and Drug Abuse Patient Records regulations: The Federal rules restrict any use of the information to criminally investigate or prosecute any alcohol or drug abuse patient.[facility] HospitalIn the event this information is protected by the Federal Confidentiality of Alcohol and Drug Abuse Patient Records regulations: The Federal rules restrict any use of the information to criminally investigate or prosecute any alcohol or drug abuse patient.[facility]In the event this information is protected by the Federal Confidentiality of Alcohol and Drug Abuse Patient Records regulations: The Federal rules restrict any use of the information to criminally investigate or prosecute any alcohol or drug abuse patient.[facility] HospitalIn the event this information is protected by the Federal Confidentiality of Alcohol and Drug Abuse Patient Records regulations: The Federal rules restrict any use of the information to criminally investigate or prosecute any alcohol or drug abuse patient.[facility]In the event this information is protected by the Federal Confidentiality of Alcohol and Drug Abuse Patient Records regulations: The Federal rules restrict any use of the information to criminally investigate or prosecute any alcohol or drug abuse patient.[facility] HospitalIn the event this information is protected by the Federal Confidentiality of Alcohol and Drug Abuse Patient Records regulations: The Federal rules restrict any use of the information to criminally investigate or prosecute any alcohol or drug abuse patient.[facility] HospitalIn the event this information is protected by the Federal Confidentiality of Alcohol and Drug Abuse Patient Records regulations: The Federal rules restrict any use of the information to criminally investigate or prosecute any alcohol or drug abuse patient.[facility] Reason for Visit (unrecogniz ed section and [...] Appointment Update F axed to [facility] for 12/17/23 Reason Comments Appointment Update faxed [facility] appointment 02/05/24 Reason Comments Follow Up Patient states no ch anges. Reason Comments Orders IVIG INFORMATION SOURCE (unrecogn ized section and content) DATE CREATED AUTHOR 03/15/2022 [facility] DATE CREATED AUTHOR AUTHOR'S ORGANIZ ATION 04/19/2022 [facility] DATE CREATED AUTHOR AUTHOR'S ORGANIZ ATION 11/15/2024 [facility] DATE CREATED AUTHOR AUTHOR'S ORGANIZ ATION 02/03/2025 [facility] Care Teams (unrecognized sec tion and content) Inspecting Engineer Relationship Specialty Start Date End Date Rg Menchaca MD [address] [facility] [address] [place] [address] PCP - General Family Medicine 04/18/22 Inspecting Engineer Relationship Specialty Start Date End Date Rg Menchaca MD [address] [facility] [address] [place] [address] PCP - General Family Medicine 04/18/22 Inspecting Engineer Relationship Specialty Start Date End Date Rg Menchaca MD [address] [facility] [address] [place] [address] PCP - General Family Medicine 04/18/22 Inspecting Engineer Relationship Specialty Start Date End Date Rg Menchaca MD [address] [facility] [address] [place] [address] PCP - General Family Medicine 04/18/22 Inspecting Engineer Relationship Specialty Start Date End Date Rg Menchaca MD [address] [facility] [address] [place] [address] PCP - General Family Medicine 04/18/22 Inspecting Engineer Relationship Specialty Start Date End Date Rg Menchaca MD [address] [facility] [address] [place] [address] PCP - General Family Medicine 04/18/22 Inspecting Engineer Relationship Specialty Start Date End Date Rg Menchaca MD [address] [facility] [address] [place] [address] PCP - General Family Medicine 04/18/22 Team Status: Active Member Role Status Dates Dr. Rg Menchaca MD Family Provider Active Dr. Rg Menchaca MD Primary Care Provider Active Team Status: Inactive Member Role Status Dates Dr. Rg Menhcaca MD Primary Care Provider Active [facility] [facility]RIS Attending Provider, Referring Provide r Active Inspecting Engineer Relationship Specialty Start Date End Date Rg Menchaca MD [address] [facility] [address] [place] [address] PCP - General Family Medicine 04/18/22 Inspecting Engineer Relationship Specialty Start Date End Date Rg Menchaca MD [address] [facility] [address] [place] [address] PCP - General Family Medicine 04/18/22 Inspecting Engineer Relationship Specialty Start Date End Date Rg Menchaca MD [address] [facility] [address] [place] [address] PCP - General Family Medicine 04/18/22 Inspecting Engineer Relationship Specialty Start Date End Date Rg Menchaca MD [address] [facility] [address] [place] [address] PCP - General Family Medicine 04/18/22 Team [...] 2024 End: September 10, 2024 Dr. Windy Yeun MD Attending Provider Active Start: September 10, [...] November 05, 2024 End: November 05, 2024 Inspecting Engineer Relationship Specialty Start Date End Date Rg Menchaca MD [address] [facility] [address] [place] [address] PCP - General Family Medicine 04/18/22 Team [...] 06, 2025 End: January 06, 2025 Dr. Winyd Yuen MD Referring Provider Active Start: January [...] January 08, 2025 End: January 08, 2025 Team Status: Inactive Member Role/Relationship Status Dates Dr. Rg Menchaca MD Primary Care Provider Active Start: February 02, 2025 End: February 02, 2025 Dr. Windy Yuen MD Attending Provider Active Start: February 02, 2025 End: February 02, 2025 Dr. Windy Yuen MD Referring Provider Active Start: February 02, 2025 End: February 02, 2025 FOR RECORDS PERTAINING TO PATIENTS WHO [...] BE BASED ON THE PRIMARY CLINICAL RECORDS. [facility]. provides no warranty or guarantee of the accuracy or completeness of information in this document.
[2025-02-03 07:40] VITALS: BP 112/67; PULSE 71; RESP 16; TEMP 36; O2SAT 95; BMI 25.3
[2025-02-03] MEDS: DiphenhydrAMINE 50 MG/ML Syringe 25 MG IV (07:42)
[2025-02-03] MEDS: 0.9% NaCl Peripheral Flush Adult IV ×2 (07:45→12:16)
[2025-02-03] MEDS: 0.9% NaCl IVPB Med Flush (100mL) 15 ML IV (07:45)
[2025-02-03] MEDS: Immune Globulin 20 gm 20 GM/200 ML VIAL IV (08:12)
[2025-02-03] MEDS: Immune Globulin 10 gm 10 GM/100 ML VIAL IV (11:03)
[2025-02-03] MEDS: Immune Globulin 5 GM 5 GM/50 ML VIAL IV (11:50)
== END 2025-02-03 23:59 | disposition home or self-care (01) ==
LOC: MEDOUTP 07:27
PROVIDERS: PCP Family Medicine; Referring Provider Psychiatry & Neurology Neurology; Visit Provider Psychiatry & Neurology Neurology
DX: G25.82 Stiff-man syndrome (principal)
CPT/HCPCS: 96365; 96366; 96375; A4216; J1568

== ENCOUNTER 2025-02-04 07:59 | Outpatient (CLI) | payer MEDICARE, MEDICAID, SELFPAY ==
[2025-02-04 08:28] VITALS: BP 91/51; PULSE 87; RESP 16; TEMP 35.8; O2SAT 94; BMI 25.3
[2025-02-04] MEDS: 0.9% NaCl Peripheral Flush Adult IV ×2 (08:28→08:46)
[2025-02-04] MEDS: 0.9% NaCl IVPB Med Flush (100mL) 15 ML IV (08:30)
[2025-02-04] MEDS: DiphenhydrAMINE 50 MG/ML Syringe 25 MG IV (08:46)
[2025-02-04] MEDS: Immune Globulin 20 gm 20 GM/200 ML VIAL IV (09:15)
[2025-02-04] MEDS: Immune Globulin 10 gm 10 GM/100 ML VIAL IV (12:39)
[2025-02-04] MEDS: Immune Globulin 5 GM 5 GM/50 ML VIAL IV (13:24)
[2025-02-04 13:51] VITALS: BP 110/62; PULSE 62; RESP 16; TEMP 36; O2SAT 96
== END 2025-02-04 23:59 | disposition home or self-care (01) ==
LOC: MEDOUTP 08:01
PROVIDERS: PCP Family Medicine; Referring Provider Psychiatry & Neurology Neurology; Visit Provider Psychiatry & Neurology Neurology
DX: G25.82 Stiff-man syndrome (principal)
CPT/HCPCS: 96365; 96366; 96375; A4216; J1568

== ENCOUNTER 2025-03-02 07:38 | Outpatient (CLI) | payer MEDICARE, MEDICAID, SELFPAY ==
[2025-03-02 08:01] VITALS: BP 92/62; PULSE 70; RESP 16; TEMP 36.1; O2SAT 70; BMI 24.0
[2025-03-02] MEDS: Immune Globulin 20 gm 20 GM/200 ML VIAL IV (08:30)
[2025-03-02] MEDS: Immune Globulin 10 gm 10 GM/100 ML VIAL IV (11:22)
[2025-03-02] MEDS: Immune Globulin 5 GM 5 GM/50 ML VIAL IV (12:00)
== END 2025-03-02 23:59 | disposition home or self-care (01) ==
LOC: MEDOUTP 07:38
PROVIDERS: PCP Family Medicine; Referring Provider Psychiatry & Neurology Neurology; Visit Provider Psychiatry & Neurology Neurology
DX: G25.82 Stiff-man syndrome (principal)
CPT/HCPCS: 96365; 96366; A4216; J1568

== ENCOUNTER 2025-03-03 07:54 | Outpatient (CLI) | payer MEDICARE, MEDICAID, SELFPAY ==
[2025-03-03 08:08] VITALS: BP 98/85; PULSE 82; RESP 16; TEMP 36.3; O2SAT 96; BMI 24.0
[2025-03-03] MEDS: Immune Globulin 20 gm 20 GM/200 ML VIAL IV (08:40)
[2025-03-03] MEDS: Immune Globulin 10 gm 10 GM/100 ML VIAL IV (11:11)
[2025-03-03] MEDS: Immune Globulin 5 GM 5 GM/50 ML VIAL IV (11:52)
== END 2025-03-03 23:59 | disposition home or self-care (01) ==
LOC: MEDOUTP 07:54
PROVIDERS: PCP Family Medicine; Referring Provider Psychiatry & Neurology Neurology; Visit Provider Psychiatry & Neurology Neurology
DX: G25.82 Stiff-man syndrome (principal)
CPT/HCPCS: 96365; 96366; A4216; J1568

== ENCOUNTER 2025-03-04 08:06 | Outpatient (CLI) | payer MEDICARE, MEDICAID, SELFPAY ==
[2025-03-04 08:30] VITALS: BP 97/71; PULSE 84; RESP 16; TEMP 36.1; O2SAT 96; BMI 24.0
[2025-03-04] MEDS: Immune Globulin 20 gm 20 GM/200 ML VIAL IV (08:56)
[2025-03-04] MEDS: Immune Globulin 10 gm 10 GM/100 ML VIAL IV (11:31)
[2025-03-04] MEDS: Immune Globulin 5 GM 5 GM/50 ML VIAL IV (12:11)
== END 2025-03-04 23:59 | disposition home or self-care (01) ==
LOC: MEDOUTP 08:06
PROVIDERS: PCP Family Medicine; Referring Provider Psychiatry & Neurology Neurology; Visit Provider Psychiatry & Neurology Neurology
DX: G25.82 Stiff-man syndrome (principal)
CPT/HCPCS: 96365; 96366; A4216; J1568

== ENCOUNTER 2025-03-30 08:41 | Outpatient (CLI) | payer MEDICARE, MEDICAID, SELFPAY ==
[2025-03-30 08:57] VITALS: BP 103/60; PULSE 74; RESP 16; TEMP 36.4; O2SAT 94; BMI 24.4
[2025-03-30] MEDS: Immune Globulin 20 gm 20 GM/200 ML VIAL IV (09:29)
[2025-03-30] MEDS: Immune Globulin 10 gm 10 GM/100 ML VIAL IV (12:01)
[2025-03-30] MEDS: Immune Globulin 5 GM 5 GM/50 ML VIAL IV (12:41)
== END 2025-03-30 23:59 | disposition home or self-care (01) ==
LOC: MEDOUTP 08:43
PROVIDERS: PCP Family Medicine; Referring Provider Psychiatry & Neurology Neurology; Visit Provider Psychiatry & Neurology Neurology
DX: G25.82 Stiff-man syndrome (principal)
CPT/HCPCS: 96365; 96366; A4216; J1568

== ENCOUNTER 2025-03-31 07:51 | Outpatient (CLI) | payer MEDICARE, MEDICAID, SELFPAY ==
[2025-03-31 08:09] VITALS: BP 103/61; PULSE 68; RESP 16; TEMP 36.1; O2SAT 96; BMI 24.4
[2025-03-31] MEDS: Immune Globulin 20 gm 20 GM/200 ML VIAL IV (08:38)
[2025-03-31] MEDS: Immune Globulin 10 gm 10 GM/100 ML VIAL IV (11:08)
[2025-03-31] MEDS: Immune Globulin 5 GM 5 GM/50 ML VIAL IV (11:55)
== END 2025-03-31 23:59 | disposition home or self-care (01) ==
LOC: MEDOUTP 07:53
PROVIDERS: PCP Family Medicine; Referring Provider Psychiatry & Neurology Neurology; Visit Provider Psychiatry & Neurology Neurology
DX: G25.82 Stiff-man syndrome (principal)
CPT/HCPCS: 96365; 96366; A4216; J1568

== ENCOUNTER 2025-04-01 08:01 | Outpatient (CLI) | payer MEDICARE, MEDICAID, SELFPAY ==
[2025-04-01 08:15] VITALS: BP 113/74; PULSE 70; RESP 16; TEMP 36.4; O2SAT 96; BMI 24.4
[2025-04-01] MEDS: Immune Globulin 20 gm 20 GM/200 ML VIAL IV (08:40)
[2025-04-01] MEDS: Immune Globulin 10 gm 10 GM/100 ML VIAL IV (11:09)
[2025-04-01] MEDS: Immune Globulin 5 GM 5 GM/50 ML VIAL IV (11:55)
== END 2025-04-01 23:59 | disposition home or self-care (01) ==
LOC: MEDOUTP 08:01
PROVIDERS: PCP Family Medicine; Referring Provider Psychiatry & Neurology Neurology; Visit Provider Psychiatry & Neurology Neurology
DX: G25.82 Stiff-man syndrome (principal)
CPT/HCPCS: 96365; 96366; A4216; J1568

== ENCOUNTER 2025-04-27 08:02 | Outpatient (CLI) | payer MEDICARE, MEDICAID, SELFPAY ==
[2025-04-27 08:10] VITALS: BP 102/70; PULSE 72; RESP 16; TEMP 36.4; O2SAT 97; BMI 24.4
[2025-04-27] MEDS: Immune Globulin 20 gm 20 GM/200 ML VIAL IV (08:31)
[2025-04-27] MEDS: Immune Globulin 10 gm 10 GM/100 ML VIAL IV (11:20)
[2025-04-27] MEDS: Immune Globulin 5 GM 5 GM/50 ML VIAL IV (12:09)
== END 2025-04-27 23:59 | disposition home or self-care (01) ==
LOC: MEDOUTP 08:02
PROVIDERS: PCP Family Medicine; Referring Provider Psychiatry & Neurology Neurology; Visit Provider Psychiatry & Neurology Neurology
DX: G25.82 Stiff-man syndrome (principal)
CPT/HCPCS: 96365; 96366; A4216; J1568

== ENCOUNTER 2025-04-28 07:50 | Outpatient (CLI) | payer MEDICARE, MEDICAID, SELFPAY ==
[2025-04-28 07:56] VITALS: BP 115/68; PULSE 76; RESP 16; TEMP 35.9; O2SAT 93; BMI 24.4
--- OUTSIDE RECORDS SUMMARY | 2025-04-28 08:11 | XMS RPT_ITS | CCD ---
Author Organization [facility] Care Team Providers Care Soil Conservation Aide Name Role Phone Dr. Rg Menchaca Primary Care Provider MD Saul Cruz Emergency Provider [phone] Sean Godwin Admit Provider Dr. Elise Sanchez Attending Provider Dr. Elise Sanchez Other Provider Unavailable Primary Care Provider Unavailabl Rg Escobar MD Primary Care Provider [phone] PROVIDER, UNKNOWN Referring Unavailable PROVIDER, UNKNOWN Referring Unavailable Rg Menchaca MD Primary Care Provider Rg Menchaca MD Primary Care Provider Rg Menchaca MD Primary Care Provider Doyle ANDRADE, Dr. Diez Primary Care Provider [phone] Tripp NADRADE, Dr. Norris Attending Provider Tripp ANDRADE, Dr. Norris Referring Provider Doyle ANDRADE, Dr. Diez Primary Care Provider Tripp ANDRADE, Dr. Norris Attending Provider Tripp ANDRADE, Dr. Norris Referring Provider Doyle ANDRADE, Dr. Diez Primary Care Provider Tripp ANDRADE, Dr. Norris Attending Provider Tripp ANDRADE, Dr. Norris Referring Provider Doyle ANDRADE, Dr. Diez Primary Care Provider Tripp ANDRADE, Dr. Norris Attending Provider [phone] Tripp ANDRADE, Dr. Norris Referring Provider [phone] Doyle NADRADE, Rg Norris Primary Care Provider WINDY YUEN Attending Unavailable RG MENCHACA Primary Care Unavailable WINDY YUEN Attending Unavailable DOYLE, RG Norris Primary Care Unavailable Doyle ANDRADE, Dr. Diez Primary Care Provider [phone] Tripp ANDRADE, Dr. Norris Attending Provider Tripp ANDRADE, Dr. Norris Referring Provider [phone] Doyle ANDRADE, Dr. Diez Primary Care Provider [phone] Tripp ANDRADE, Dr. Norris Attending Provider Tripp ANDRADE, Dr. Norris Referring Provider [phone] Doyle ANDRADE, Dr. Diez Primary Care Provider [phone] Tripp ANDRADE, Dr. Norris Attending Provider Tripp ANDRADE, Dr. Norris Referring Provider [phone] Doyle ANDRADE, Dr. Diez Primary Care Provider [phone] Tripp ANDRADE, Dr. Norris Attending Provider Tripp ANDRADE, Dr. Norris Referring Provider [phone] Doyle ANDRADE, Dr. Diez Primary Care Physician [phone] Tripp ANDRADE, Dr. Norris Attending Physician Tripp ANDRADE, Dr. Norris Referring Provider Doyle ANDRADE, Dr. Diez Primary Care Physician Tripp ANDRADE, Dr. Norris Attending Physician Tripp ANDRADE, Dr. Norris Referring Provider Doyle ANDRADE, Dr. Diez Primary Care Physician Tripp ANDRADE, Dr. Norris Attending Physician Dr. Windy Yuen MD Referring Provider [phone] Spolter, Windy Attending Unavailable Spolter, Windy Referring [...] needed for pain September 09, 2023 12:00am Complies with drug therapy Start: 09-09-2023 take 1000 mg by mout [...] A DAY November 27, 2018 12:00am spasms Complies with drug therapy Start: 11-27-2018 take 15 mg by mouth three times daily Baclofen Active 15 MG PO THREE TIMES A DAY November 27, 2018 12:00am Comment on above: Take 15 mg by mouth three times daily. Blood-Glucose Meter (RELION PRIME METER) mis (18 sources) Start: 01-17-2018 Blood-Glucose Meter (RELION PRIME METER) [facility] [place] Indications: Type 2 diabetes mellitus with complication, with long-term current use of insulin (HCC) 1 Each four times daily. Dx: E11.9. Insulin: yes 1 Each 01/17/2018 Active Start: 01-17-2018 Blood-Glucose Meter (RELION PRIME METER) [facility] [place] Indications: Type 2 diabetes mellitus with complication, [...] needed for Hypoglycemia April 28, 2022 1:00am Complies with drug therapy Start: 04-28-2022 GLUCAGON EMERG ENCY KIT, HUMAN, 1 mg injection 01/23/2023 Active Comment on above: Inject intramuscularly. glucose 0.4 mg/mg oral gel (20 sources) Start: 024 immune globulin (human) (IgG) 35 g in [...] mg PO and acetaminophen [address] [place]. [address] mL 02/05/2024 02/05/2024 Discontinued 3 ml insulin aspart, human 100 unt/ml pen injector (20 sources) Insulin Analog Start: 08-18-2021 Insulin Aspart U-100 (Novolog Flexpen U-100 Insulin) 100 unit/mL (3 mL) Insulin Pen Active 0 sliding scale dose SC BEFORE MEALS AND AT BEDTIME Protocol: Custom Sliding Scale Condition: 170-220 Dose/Route: 1 Condition: 221-270 Dose/Route: 2 Condition: 271-320 Dose/Route: 3 Condition: 321-370 Dose/Route: 4 Condition: 371-420 Dose/Route: August 18, 2021 12:00am diabetes Please contact the information source for Protocol details. Complies with drug therapy Start: 04-21-2018 End: 04-22-2018 Insulin Aspart U-100 (Novolo g Flexpen (Bkc)) 100 UNITS/ML Flexpen Discontinued 0 U SC 3 TIMES DAILY WITH MEALS Protocol: - Use for Total Daily Dose of Insulin 28-36 units- Average size patientsLOW MEDIUM DOSING ALGORITHM Condition: 150-209 mg/dl = 1 unit Condition: 210-269 mg/dl = 2 units Condition: 270-329 mg/dl = 3 units Condition: 330-389 mg/dl = 4 units Condition: 390-449 mg/dl = 5 units Condition: Greater than 449 call physician April 21, 2018 1:00am April 22, 2018 [...] complication, with long-term current use of insulin ([facility]) Sliding scale 151-200, give 1 unit 201-250, [...] complication, with long-term current use of insulin ([facility]) Inject 27 Units subcutaneously every morning. 5 Each 2 06/12/2022 Active Start: 04-21-2018 insulin detemi r U-100 (LEVEMIR) 100 unit/mL (3 mL) injection pen Insulin Detemir U-100 (Levemir Flextouch U-100 Insuln) 100 UNITS/ML insulin pen Active 29 UNITS SC DAILY April 21, 2018 12:38pm 04/21/2018 Active Start: 04-21-2018 Start: 04-21-2018 Insulin Detemi r U-100 (Levemir [...] April 21, 2018 1:00am CONCHITA. NO GENERIC. Complies with drug therapy Comment on above: Take 1 tablet by finesse th once daily. Take on empty stomach. For Thyroid DAILY lisinopril 5 mg oral tablet (3 sources) Angiotensin Converting Enzyme Inhibitor Start: 2 take 5 mg by mouth once daily Lisinopril Active 5 MG PO DAILY August 18, 2021 8:20pm loratadine 10 mg oral tablet (15 sources) Start: 5 take 1 tablet by mouth every twenty-four hours as needed Loratadine (Allergy Relief (Loratadine)) 10 mg tablet Active 10 mg PO Q24H as needed for allergy symptoms October 08, 2024 12:00am Complies with drug therapy LORazepam 0.5 mg oral tablet (20 sources) Benzodiazepine Start: 2 take 1 tablet by mouth once daily Lorazepam (Ativan) 0.5 mg Tablet Active 0.5 mg PO DAILY@0800 August 18, 2021 12:00am Complies with drug therapy Start: 08-18-2021 take 0.25 mg by mout [...] 0.25 mg by mout h every morning. magnesium hydroxide 80 mg/ml oral suspension (20 sources) Start: 4 take 1 mL by mouth once daily as needed for constipation Magnesium Hydroxide (Milk Of Magnesia) 400 mg/5 mL suspension Active 30 mL PO DAILY as needed for constipation September 09, 2023 12:00am Complies with drug therapy Start: 09-09-2023 take 1 mL by mouth o nce daily as needed for constipation Magnesium Hydroxide (Milk Of Magnesia) 400 mg/5 mL suspension Active 30 mL PO DAILY as needed for constipation September 09, 2023 12:00am Start: 09-09-2023 take 1 mL by mouth once daily Magnesium Hydroxide (Milk Of Magnesia) 400 mg/5 mL suspension Active 30 ML PO DAILY September 09, 2023 12:00am mineral oil 1000 mg/ml enema (20 sources) Start: 09-09-2023 Mineral Oil (F leet Mineral Oil) enema Active 118 mL RC DAILY as needed for constipation September 09, 2023 12:00am discard any unused portion Complies with drug therapy Start: 09-09-2023 Mineral Oil (F leet Mineral [...] nausea and vomiting May 19, 2024 1:00am Complies with drug therapy Start: 04-29-2022 End: 09-09-2023 take 1 tablet [...] needed for constipation April 28, 2022 1:00am Complies with drug therapy Start: 04-28-2022 [facility] needed for constipation Start: 04-28-2022 take 8.6-50 mg by mo uth every twelve hours as needed for constipation Senna Plus (senna-docusate) Active 8.6 - 50 mg PO EVERY 12 HOURS NEEDED as needed for constipation April 28, 2022 1:00am Start: 04-28-2022 take 8.6-50 mg by mouth once d aily Senna Plus (senna-docusate) Active 8.6 - 50 mg PO.IVFORM DAILY April 28, 2022 1:00am Start: 04-28-2022 take 8.6-50 mg by mouth once d aily Senna Plus (senna-docusate) Active 8.6 - 50 MG PO.IVFORM DAILY April 28, 2022 1:00am Start: 04-28-2022 take 8.6-50 mg by mouth once d aily Senna Plus (senna-docusate) Active 8.6 - 50 [...] needed for Constipation August 18, 2021 12:00am Complies with drug therapy Comment on above: Bisacodyl Active 10 MG [...] U SQ BEFORE MEALS AND AT BEDTIME Protocol: - Use for Total Daily Dose of Insulin 28-36 units- Average size patientsLOW MEDIUM DOSING ALGORITHM Condition: 150-209 mg/dl = 1 unit Condition: 210-269 mg/dl = 2 units Condition: 270-329 mg/dl = 3 units Condition: 330-389 mg/dl = 4 units Condition: 390-449 mg/dl = 5 units Condition: Greater than 449 call physician November 27, 2018 12:00am November 29, 2018 11:28am Please contact the information source for Protocol details. Problems Active Problems Problem Classification Problem Date [...] Test Name Value Interpretation Reference Range Facility [facility] 11-11-2024 CNOV Office Visit (NNST ) ROMAIN MCDERMOTT ([id number]) 1940 F Date Time Provider Department 11/11/24 12:00 PM WINDY YUEN [facility] During your visit today, [...] straightening out slightly. She mentions that a pipe fitter apprentice advised against surgery due to her age. Romain is currently receiving IVIG therapy at [facility], which began with five days per [...] syndrome Confirmed with qulitative and quantitative testing ([place]) demonstrating high ab titer som 65 lab [...] 2g/kg IBW) Fax order to Madelaine at [facility] at [phone] RTC 6 months Windy Yuen MD 11/11/2024 12:38 PM Signed - Continue your IVIG infusions at [facility] as before, with three consecutive treatment [...] the year. Please call my office at [phone] if you need help coordinating your care. [...] 1050 mLRfl: 5 PROVIDER ORDERED FOLLOW UP [[id number]] Order #: [id number]: 1 FUTURE Prescriptions as of 11/11/2024 - LANTUS SOLOSTAR U-100 INSULIN 100 unit/mL (3 mL) - immune globulin (human) (IgG) 35 g in empty bag Total Volume 350 mL (GAMMAGARD) Inject 350 mL intrave (more content not included)... [facility] Telephone ([facility]) ROMAIN MCDERMOTT ([id number]) 1940 F Date Time Provider Department 02/06/24 WINDY YUEN [facility] During your visit today, we recorded the following information about you: Kellen Duran LPN 02/06/2024 8:05 AM Signed IVIG order was faxed to Madelaien at [facility] at [phone] with confirmation. Kellen Duran LPN 02/12/2024 2:00 PM Signed [facility] needed clarification to the IVIG order that was previously sent, completed by Dr. Yuen and re-faxed to them at [phone] with confirmation. Allergies As of Date: 02/06/2024 (No Known Allergies) Date Reviewed: 02/05/2024 Reviewed by: Shira Hager LPN - Fully Assessed Reason for Visit: Orders [481] Cmt: IVIG Prescriptions as of 02/12/2024 - [...] Encounter Status:Closed by KELLEN DURAN on 02/06/24 [facility] CNOVon 02-05-2024 CNOV Office Visit (NNSTFM ) BALDEMARROMAIN Marylou ([id number]) 1940 F Date Time Provider Department 02/05/24 11:30 AM WINDY YUEN [facility] During your visit today, we recorded the following information about you: Pulse Blood pressure 81/minute 116/68 Windy Yuen MD 02/05/2024 11:52 AM Nadege Flynn is here for follow up; her daughter joins us on the phone for the appointment. She continues on baclofen and lorazepam. She is getting IVIG over 5 days every month at [facility] Had some trouble with the last [...] syndrome Confirmed with qulitative and quantitative testing ([place]) demonstrating high ab titer som 65 lab [...] that she can receive the treatments at [facility]. She is now s/p 5 monthly [...] 2g/kg IBW) Fax order to Madelaine at [facility] at [phone] RTC 6 months Allergies As of Date: [...] 2018 12:38pm (more content not included)... [facility]) ROMAIN MCDERMOTT ([id number]) 1940 F Date Time Provider Department 11/24/23 WINDY YUEN [facility] During your visit today, we recorded the following information about you: Naif Oates 11/24/2023 3:16 PM Signed Patient's appointment changed from 12/17/23 to 02/05/[address] Yuen being out of the office. Appointment details faxed as requested by daughter, Nyla, so patient will have transportation for appointment. Faxed to [facility]: [phone] Confirmation ok. Allergies As of Date: 11/24/2023 (No Known Allergies) Date Reviewed: 07/31/2023 Reviewed by: Shruthi Soliz LPN - Fully Assessed Reason for Visit: Appointment [186] Cmt: Update faxed to [facility] for appointment 02/05/24 Prescriptions as of 11/24/2023 [...] Status:Closed by NAIF OATES on 11/24/23 Normal [facility] Glucose Glucometer (BldC) [M ass/Vol]on 04-29-2022 Glucose [Mass/Vol] 94 mg/dL 74-106 [facility] Work Phone: Comment on above: MANAGEMENT OF PATIEN T CARE PER NURSING PROTOCOL Absolute lymphocyte counton 04-28-2022 Lymphocytes Auto (Unsp spec) [#/Vol] 2.37 10*3/uL 0.83-4.51 [facility] Work Phone: Basophil percentageon 2021 Basophils/100 WBC (Bld) 0.3 % 0-1 [facility] Work Phone: Chloride [Moles/Vol] 102 mmol/L 98-107 [facility] Work Phone: Eosinophils/100 WBC (Bld) 0.1 % 0-5 [facility] Work Phone: Glucose [Mass/Vol] 112 mg/dL 74-106 [facility] Work Phone: Comment on above: Fasting Glucose resu lt from 100 to 125 mg/dL suggests IMPAIRED HOMEOSTASIS per A.D.A. criteria. Neutrophils (Bld) [#/Vol] 8.6 10*3/uL 2.0-7.7 [facility] Work Phone: Neutrophils/100 WBC (Bld) 74.7 % 47-70 [facility] Work Phone: Potassium [Moles/Vol] 5.4 mmol/L 3.5-5.1 [facility] Work Phone: Sodium [Moles/Vol] 137 mmol/L 136-145 [facility] Work Phone: WBC (Bld) [#/Vol] 11.5 10*3/uL 4.4-11.0 [facility] Work Phone: Blood erythrocytes count (nu mber/volume)on 04-28-2022 RBC (Bld) [#/Vol] 4.65 10*6/uL 4.2-5.4 [facility] Work Phone: Blood hemoglobin measurement (mass/volume)on 04-28-2022 Hemoglobin (Bld) [Mass/Vol] 13.2 g/dL 12.0-15.0 [facility] Work Phone: Blood lymphocytes/100 leukoc yteson 04-28-2022 Lymphocytes/100 WBC (Bld) 20.6 % 19-41 [facility] Work Phone: Blood monocytes/100 leukocyt eson 04-28-2022 Monocytes/100 WBC (Bld) 3.0 % 0-10 [facility] Work Phone: Blood platelet mean volumeon 04-28-2022 Platelet mean volume (Bld) [Entitic vol] 9.7 fL 6.2-12.0 [facility] Work Phone: Determination of erythrocyte mean corpuscular volume (MCV)on 04-28-2022 MCV (RBC) [Entitic vol] 88.8 fL 81-99 [facility] Work Phone: Hematocrit Auto (Bld) [Volum e fraction]on 04-28-2022 Hematocrit (Bld) [Volume fraction] 41.3 % 37-47 [facility] Work Phone: Laboratory - Chemistry and C hemistry - challengeon 04-28-2022 CO2 [Moles/Vol] 31.0 mmol/L 21.0-32.0 [facility] Work Phone: Magnesium [Mass/Vol] 2.0 mg/dL 1.6-2.6 [facility] Work Phone: Urea nitrogen/Creatinine [Mass ratio] 33.5 mg/mg 10-20 [facility] Work Phone: Laboratory - Hematology and Cell countson 04-28-2022 Erythrocyte distribution width (RBC) [Entitic vol] 44.3 fL 35.1-43.9 [facility] Work Phone: Erythrocyte distribution width (RBC) [Ratio] 13.6 % 11.6-14.6 [facility] Work Phone: Immature granulocytes/100 WBC (Bld) 1.300 % 0.0-0.9 [facility] Work Phone: Comment on above: IG% - Immature Granu locytes (promyelocytes, myelocytes and metamyelocytes) > 1% indicates that a LEFT SHIFT is Present. MCH (RBC) [Entitic mass] 28.4 pg 27.0-32.0 [facility] Work Phone: Nucleated RBC/100 WBC (Bld) [Ratio] 0 % 0-5 [facility] Work Phone: MCHC Auto (RBC) [Mass/Vol]on 04-28-2022 MCHC (RBC) [Mass/Vol] 32.0 g/dL 32-36 [facility] Work Phone: No Panel Informationon 04-28 Estimated Creatinine Clearance Calc 37.12 ml/min [facility] Work Phone: Estimated GFR (MDRD) Amer 118 mL/min >60 [facility] Work Phone: Comment on above: GFR Calc Estimated GFR (MDRD) Non-Af Amer 97 mL/min >60 [facility] Work Phone: Comment on above: Non- GFR Calc Platelets bldon 04-28-2022 Platelets (Bld) [#/Vol] 251 10*3/uL 150-450 [facility] Work Phone: Serum or plasma calcium roger urement (mass/volume)on 04-28-2022 Calcium [Mass/Vol] 9.3 mg/dL 8.5-10.1 [facility] Work Phone: Serum or plasma creatinine m easurement (mass/volume)on 04-28-2022 Creatinine [Mass/Vol] 0.63 mg/dL 0.55-1.02 [facility] Work Phone: Comment on above: The validity of the calculated GFR & GFRAA in patients over 70 years has not been determined. Clinical correlation is essential. Serum or plasma urea nitroge n measurement (mass/volume)on 04-28-2022 Urea nitrogen [Mass/Vol] 21 mg/dL 7-18 [facility] Work Phone: Thin prep Papanicolaou smear with manual screeningon 04-28-2022 Thin prep Papanicolaou smear with manual screening 4 5-15 [facility] Work Phone: XR Foot - right AP and Later al and obliqueon 04-19-2022 IMPRESSION: Unchanged deformity of the right foot, no acute bony process is identified. Motion Graphics Designer: YOBANY Transcribe Date/Time: Apr 19 2022 7:25A Dictated by : LESA MCLAUGHLIN MD This examination was interpreted and the report reviewed and electronically signed by: LESA MCLAUGHLIN MD on Apr 19 2022 7:27AM EST [facility] * * *Final Report* * * DATE OF EXAM: Apr 18 2022 3:07PM MDO 5337 - XR FOOT 3V AP/LAT/OBL RT / PROCEDURE REASON: [id number] * * * * Physician Interpretation * * * * HISTORY: RIGHT FOOT PAIN. Pain . TECHNIQUE: XR FOOT 3V AP/LAT/OBL RT Laterality: RIGHT Number of different views (projections): 3 COMPARISON: February 2018 RESULT: Equinovarus deformity again identified. Bones are osteoporotic unchanged. No fracture. Joint spaces are grossly maintained. [facility]19/[facility]22 * * *Final Report* * * DATE OF EXAM: Apr 18 2022 3:07PM MDO 5337 - XR FOOT 3V AP/LAT/OBL RT / PROCEDURE REASON: [id number] * * * * Physician Interpretation * * * * HISTORY: RIGHT FOOT PAIN. Pain . TECHNIQUE: XR FOOT 3V AP/LAT/OBL RT Laterality: RIGHT Number of different views (projections): 3 COMPARISON: February 2018 RESULT: Equinovarus deformity again identified. Bones are osteoporotic unchanged. No fracture. Joint spaces are grossly maintained. IMPRESSION IMPRESSION: Unchanged deformity of the right foot, no acute bony process is identified. Motion Graphics Designer: PSCB Transcribe Date/Time: Apr 19 2022 7:25A Dictated by : LESA MCLAUGHLIN MD This examination was interpreted and the report reviewed and electronically signed by: LESA MCLAUGHLIN MD on Apr 19 2022 7:27AM EST [facility] XR Foot - right AP and Later al and obliqueOrdered By: [facility] Provider on 04-19-2022 [facility] XR FOOT 3V AP/LAT/OBL RTon 06-18-2021 XR FOOT 3V AP/LAT/OBL RT * * *Final Report* * * DATE OF EXAM: Apr 18 2022 3:07PM JOSE ALBERTO 5337 - XR FOOT 3V AP/LAT/OBL RT / PROCEDURE REASON: [id number] * * * * Physician Interpretation * * * * HISTORY: RIGHT FOOT PAIN. Pain . TECHNIQUE: XR FOOT 3V AP/LAT/OBL RT Laterality: RIGHT Number of different views (projections): 3 COMPARISON: February 2018 RESULT: Equinovarus deformity again identified. Bones are osteoporotic unchanged. No fracture. Joint spaces are grossly maintained. IMPRESSION: Unchanged deformity of the right foot, no acute bony process is identified. Motion Graphics Designer: PSCB Transcribe Date/Time: Apr 19 2022 7:25A Dictated by : LESA MCLAUGHLIN MD This examination was interpreted and the report reviewed and electronically signed by: LESA MCLAUGHLIN MD on Apr 19 2022 7:27AM EST [id number] N [facility] XR Foot - right AP and Later al and obliqueon 04-18-2022 Radiology Study observation (narrative) [facility] URINE CULTURE,BACTERIALon URINE CULTURE,BACTERIAL PATIENT: ROMAIN MCDERMOTT LOCATION: [facility] BILL#: [id number] : 44 AGE: SEX: F ORDERED BY: RG MENCHACA SOURCE: URINE COLLECTED: 03/12/22 13:05 ANTIBIOTICS AT [place].: RECEIVED : 03/13/22 23:52 SITE: Clean Catch/Voided R E S U L T S URINE CULTURE,BACTERIAL FINAL 03/14/22 18:39 MULTIPLE ORGANISMS PRESENT, PROBABLE CONTAMINATION PLEASE REPEAT CULTURE. Normal [facility] Comment on above: Performed By: #### U [facility] #### [facility] [address] [place] [address] URINE CULTURE,BACTERIALon URINE CULTURE,BACTERIAL PATIENT: ROMAIN MCDERMOTT LOCATION: [facility] BILL#: [id number] : 44 AGE: SEX: F ORDERED BY: RG MENCHACA SOURCE: URINE COLLECTED: 03/08/22 05:42 ANTIBIOTICS AT [place].: RECEIVED : 03/08/22 20:26 SITE: Unspecified R E S U L T S URINE CULTURE,BACTERIAL FINAL 03/09/22 12:43 MULTIPLE ORGANISMS PRESENT, PROBABLE CONTAMINATION PLEASE REPEAT CULTURE. Normal [facility] Comment on above: Performed By: #### U [facility]INC #### [facility] [address] [place] [address] Absolute lymphocyte counton 03-01-2022 Lymphocytes Auto (Unsp spec) [#/Vol] 2.41 10*3/uL 0.83-4.51 [facility] Work Phone: Basophil percentageon 2021 Basophils/100 WBC (Bld) 0.5 % 0-1 [facility] Work Phone: Chloride [Moles/Vol] 101 mmol/L 98-107 [facility] Work Phone: Eosinophils/100 WBC (Bld) 1.7 % 0-5 [facility] Work Phone: Glucose [Mass/Vol] 237 mg/dL 74-106 [facility] Work Phone: Comment on above: Glucose result great er than or equal to 200 mg/dLsuggests DIABETES MELLITUS per A.D.A. criteria. Neutrophils (Bld) [#/Vol] 6.7 10*3/uL 2.0-7.7 [facility] Work Phone: Neutrophils/100 WBC (Bld) 66.4 % 47-70 [facility] Work Phone: Potassium [Moles/Vol] 4.4 mmol/L 3.5-5.1 [facility] Work Phone: Sodium [Moles/Vol] 136 mmol/L 136-145 [facility] Work Phone: WBC (Bld) [#/Vol] 10.0 10*3/uL 4.4-11.0 [facility] Work Phone: Blood erythrocytes count (nu mber/volume)on 03-01-2022 RBC (Bld) [#/Vol] 4.90 10*6/uL 4.2-5.4 [facility] Work Phone: Blood hemoglobin measurement (mass/volume)on 03-01-2022 Hemoglobin (Bld) [Mass/Vol] 14.0 g/dL 12.0-15.0 [facility] Work Phone: Blood lymphocytes/100 leukoc yteson 03-01-2022 Lymphocytes/100 WBC (Bld) 24.0 % 19-41 [facility] Work Phone: Blood monocytes/100 leukocyt eson 03-01-2022 Monocytes/100 WBC (Bld) 6.6 % 0-10 [facility] Work Phone: Blood platelet mean volumeon 03-01-2022 Platelet mean volume (Bld) [Entitic vol] 10.1 fL 6.2-12.0 [facility] Work Phone: Determination of erythrocyte mean corpuscular volume (MCV)on 03-01-2022 MCV (RBC) [Entitic vol] 86.9 fL 81-99 [facility] Work Phone: Hematocrit Auto (Bld) [Volum e fraction]on 03-01-2022 Hematocrit (Bld) [Volume fraction] 42.6 % 37-47 [facility] Work Phone: Laboratory - Chemistry and C hemistry - challengeon 03-01-2022 CO2 [Moles/Vol] 27.0 mmol/L 21.0-32.0 [facility] Work Phone: Urea nitrogen/Creatinine [Mass ratio] 23.0 mg/mg 10-20 [facility] Work Phone: Laboratory - Hematology and Cell countson 03-01-2022 Erythrocyte distribution width (RBC) [Entitic vol] 44.4 fL 35.1-43.9 [facility] Work Phone: Erythrocyte distribution width (RBC) [Ratio] 13.8 % 11.6-14.6 [facility] Work Phone: Immature granulocytes/100 WBC (Bld) 0.800 % 0.0-0.9 [facility] Work Phone: Comment on above: IG% - Immature Granu locytes (promyelocytes, myelocytes and metamyelocytes) > 1% indicates that a LEFT SHIFT is Present. MCH (RBC) [Entitic mass] 28.6 pg 27.0-32.0 [facility] Work Phone: Nucleated RBC/100 WBC (Bld) [Ratio] 0 % 0-5 [facility] Work Phone: MCHC Auto (RBC) [Mass/Vol]on 03-01-2022 MCHC (RBC) [Mass/Vol] 32.9 g/dL 32-36 [facility] Work Phone: No Panel Informationon 03-01 Estimated Creatinine Clearance Calc 37.74 ml/min [facility] Work Phone: Estimated GFR (MDRD) Amer 69 mL/min >60 [facility] Work Phone: Comment on above: GFR Calc Estimated GFR (MDRD) Non-Af Amer 57 mL/min >60 [facility] Work Phone: Comment on above: Non- GFR Calc Platelets bldon 03-01-2022 Platelets (Bld) [#/Vol] 228 10*3/uL 150-450 [facility] Work Phone: Serum or plasma acetone roger urement (mass/volume)on 03-01-2022 Acetone [Mass/Vol] Negative NEG [facility] Work Phone: Serum or plasma calcium roger urement (mass/volume)on 03-01-2022 Calcium [Mass/Vol] 10.1 mg/dL 8.5-10.1 [facility] Work Phone: Serum or plasma creatinine m easurement (mass/volume)on 03-01-2022 Creatinine [Mass/Vol] 1.00 mg/dL 0.55-1.02 [facility] Work Phone: Comment on above: The validity of the calculated GFR & GFRAA in patients over 70 years has not been determined. Clinical correlation is essential. Serum or plasma urea nitroge n measurement (mass/volume)on 03-01-2022 Urea nitrogen [Mass/Vol] 23 mg/dL 7-18 [facility] Work Phone: Thin prep Papanicolaou smear with manual screeningon 03-01-2022 Thin prep Papanicolaou smear with manual screening 8 5-15 [facility] Work Phone: C peptide SerPl-mCncon 11-15 C peptide [Mass/Vol] <0.20 Low 0.81-3.85 [facility] Comment on above: Order Comment: Malini solorio Type: BLOOD SPECIMEN Ordering Facility: [facility] Address: [address] [place] [address] Result Comment: Resu lt rechecked. Performed By: #### 1 986-9 #### [facility] CLIA [id number] [address] [place] [address] [place] GAD65 Ab Ser-aCncon 11-16-19 22 Glutamate decarboxylase 65 Ab Qn (S) >120.0 High <=5.0 [facility] Comment on above: Order Comment: Malini solorio Type: BLOOD SPECIMEN Ordering Facility: [facility] Address: [address] [place] [address] Result Comment: Anti -glutamic acid decarboxylase antibody [...] is required. Performed By: #### I NSLAB, 74479-7 #### [facility] CLIA [id number] [address] [place] [address] [place] GLUCOSE RANDOM BLDon 022 Glucose [Mass/Vol] 94 mg/dL 74 - 99 mg/dL [facility] Glucose SerPl-mCncon 022 Glucose [Mass/Vol] 94 mg/dL Normal 74-99 [facility] Comment on above: Order Comment: Malini solorio Type: BLOOD SPECIMEN Ordering Facility: [facility] Address: [address] [place], [place] [id number] Result Comment: The [place] Diabetes Association (ADA) provides guidance for cutoff [...] Standards of Medical Care in Diabetes 2016, [place] [employer]. Diabetes Care. 2016.39(Suppl 1). Performed By: #### 2 345-7, 3016-3 #### [facility] CLIA [id number] [address] [place] [address] [place] Glutamate decarboxylase 65 A b Qn (S)on 11-15-2021 GLUTAMIC ACID DECARBOXYLAS AB QUALITATIVE Positive Abnormal Negative [facility] Comment on above: Order Comment: Malini solorio Type: BLOOD SPECIMEN Ordering Facility: [facility] Address: [address] [place], [place] [id number] Performed By: #### I NSLAB, 22417-3 #### [facility] CLIA [id number] [address] [place] [id number] [place] [address] [place] HEMOGLOBIN A1C (POC)on 11-15 HbA1c (Bld) [Mass fraction] 8.1 % Abnormal 4.2 - 5.6 % [facility] INSULIN ANTIBODY BLDon 11-15 Insulin Ab Qn (S) <0.4 Normal <0.4 [facility] Comment on above: Order Comment: Malini solorio Type: BLOOD SPECIMEN Ordering Facility: [facility] Address: [address] [place] [id number] Result Comment: Anti -insulin antibody test is used as an aid in diagnosis and prognosis of autoimmune diabetes mellitus in combination with other tests such as anti-GAD65 and anti-IA-2 antibody. A single negative result cannot rule out autoimmune diabetes mellitus. The test is not reliable in patients who had previously received exogenous insulin. Clinical correlation is required. Performed By: #### I NSLAB, 08342-3 #### [facility] CLIA [id number] [address] [place] [address] [place] INSULIN ANTIBODY, QUALITATIVE Negative Normal Negative [facility] Comment on above: Order Comment: Specbailey men Type: BLOOD SPECIMEN Ordering Facility: [facility] Address: [address] [place] [address] Performed By: #### I NSLAB, 14731-8 #### [facility] CLIA [id number] [address] [place] [address] [place] INSULINOMA ASSOCIATED ANTIBO DY 2on 11-15-2021 IA 2 ANTIBODY BLOOD <5.4 Normal <7.5 [facility] Comment on above: Order Comment: Malini solorio Type: BLOOD SPECIMEN Ordering Facility: [facility] Address: [address] [place] [address] Result Comment: Anti -insulinoma associated antigen 2 (IA-2) antibody test is used as an aid in diagnosis of type I diabetes mellitus, to predict the risk of progression to type I diabetes mellitus among susceptible individuals, and to predict the necessity of insulin therapy in adult-onset diabetes mellitus. Clinical correlation is required. Performed By: #### I A2AB #### [facility] CLIA [id number] [address] [place] [address] [place] ISLET CELL ABon 11-15-2021 ISLET CELL AB <1:4 Normal <1:4 [facility] Comment on above: Order Comment: Malini solorio Type: BLOOD SPECIMEN Ordering Facility: [facility] Address: [address] [place] [address] Result Comment: INTE RPRETIVE INFORMATION: Islet Cell [...] developed and its performance characteristics determined by [facility]. It has not been cleared or approved by the [place] Food and Drug Administration. This test was performed in a CLIA certified laboratory and is intended for clinical purposes. Performed By: [facility] [address] [place] [address] Poultry Farmworker: Abdirizak Quintana MD, PhD Performed By: #### I SLET #### [facility] CLIA [id number] [address] [place] [address] T4 Free SerPl-mCncon 022 Free T4 [Mass/Vol] 1.9 ng/dL High 0.9-1.7 [facility] Comment on above: Order Comment: Speci lyndsey Type: BLOOD SPECIMEN Ordering Facility: [facility] Address: [address] [place] [address] Performed By: #### 3 024-7 #### [facility] CLIA [id number] [address] [place] [address] [place] TSH BLDon 11-15-2021 TSH Qn 0.073 m[IU]/L Low 0.270 - 4.200 mIU/L [facility] TSH SerPl-aCncon 11-15-2021 TSH Qn 0.073 m[IU]/L Low 0.270-4.200 [facility] Comment on above: Order Comment: Malini solorio Type: BLOOD SPECIMEN Ordering Facility: [facility] Address: [address] [place] [address] Performed By: #### 2 345-7, 3016-3 #### [facility] CLIA [id number] [address] [place] [address] [place] Absolute lymphocyte counton 08-30-2021 Lymphocytes Auto (Unsp spec) [#/Vol] 2.76 10*3/uL 0.83-4.51 [facility] Work Phone: Basophil percentageon 2021 Basophils/100 WBC (Bld) 0.5 % 0-1 [facility] Work Phone: Chloride [Moles/Vol] 104 mmol/L 98-107 [facility] Work Phone: Eosinophils/100 WBC (Bld) 1.3 % 0-5 [facility] Work Phone: Glucose [Mass/Vol] 205 mg/dL 74-106 [facility] Work Phone: Comment on above: Glucose result great er than or equal to 200 mg/dLsuggests DIABETES MELLITUS per A.D.A. criteria. Neutrophils (Bld) [#/Vol] 10.9 10*3/uL 2.0-7.7 [facility] Work Phone: Neutrophils/100 WBC (Bld) 70.9 % 47-70 [facility] Work Phone: Potassium [Moles/Vol] 4.2 mmol/L 3.5-5.1 [facility] Work Phone: Sodium [Moles/Vol] 138 mmol/L 136-145 [facility] Work Phone: WBC (Bld) [#/Vol] 15.4 10*3/uL 4.4-11.0 [facility] Work Phone: Blood erythrocytes count (nu mber/volume)on 08-30-2021 RBC (Bld) [#/Vol] 4.32 10*6/uL 4.2-5.4 [facility] Work Phone: Blood hemoglobin measurement (mass/volume)on 08-30-2021 Hemoglobin (Bld) [Mass/Vol] 12.9 g/dL 12.0-15.0 [facility] Work Phone: Blood lymphocytes/100 leukoc yteson 08-30-2021 Lymphocytes/100 WBC (Bld) 18.0 % 19-41 [facility] Work Phone: Blood monocytes/100 leukocyt eson 08-30-2021 Monocytes/100 WBC (Bld) 7.5 % 0-10 [facility] Work Phone: Blood platelet mean volumeon 08-30-2021 Platelet mean volume (Bld) [Entitic vol] 10.7 fL 6.2-12.0 [facility] Work Phone: Determination of erythrocyte mean corpuscular volume (MCV)on 08-30-2021 MCV (RBC) [Entitic vol] 88.0 fL 81-99 [facility] Work Phone: Hematocrit Auto (Bld) [Volum e fraction]on 08-30-2021 Hematocrit (Bld) [Volume fraction] 38.0 % 37-47 [facility] Work Phone: Laboratory - Chemistry and C hemistry - challengeon 08-30-2021 CO2 [Moles/Vol] 26.0 mmol/L 21.0-32.0 [facility] Work Phone: Urea nitrogen/Creatinine [Mass ratio] 20.2 mg/mg 10-20 [facility] Work Phone: Laboratory - Hematology and Cell countson 08-30-2021 Erythrocyte distribution width (RBC) [Entitic vol] 46.1 fL 35.1-43.9 [facility] Work Phone: Erythrocyte distribution width (RBC) [Ratio] 14.4 % 11.6-14.6 [facility] Work Phone: Immature granulocytes/100 WBC (Bld) 1.800 % 0.0-0.9 [facility] Work Phone: Comment on above: IG% - Immature Granu locytes (promyelocytes, myelocytes and metamyelocytes) > 1% indicates that a LEFT SHIFT is Present. MCH (RBC) [Entitic mass] 29.9 pg 27.0-32.0 [facility] Work Phone: Nucleated RBC/100 WBC (Bld) [Ratio] 0 % 0-5 [facility] Work Phone: MCHC Auto (RBC) [Mass/Vol]on 08-30-2021 MCHC (RBC) [Mass/Vol] 33.9 g/dL 32-36 [facility] Work Phone: No Panel Informationon 08-30 Estimated Creatinine Clearance Calc 27.76 ml/min [facility] Work Phone: Estimated GFR (MDRD) Amer 54 mL/min >60 [facility] Work Phone: Comment on above: GFR Calc Estimated GFR (MDRD) Non-Af Amer 44 mL/min >60 [facility] Work Phone: Comment on above: Non- GFR Calc Platelets bldon 08-30-2021 Platelets (Bld) [#/Vol] 236 10*3/uL 150-450 [facility] Work Phone: Serum or plasma calcium roger urement (mass/volume)on 08-30-2021 Calcium [Mass/Vol] 9.5 mg/dL 8.5-10.1 [facility] Work Phone: Serum or plasma creatinine m easurement (mass/volume)on 08-30-2021 Creatinine [Mass/Vol] 1.24 mg/dL 0.55-1.02 [facility] Work Phone: Comment on above: The validity of the calculated GFR & GFRAA in patients over 70 years has not been determined. Clinical correlation is essential. Serum or plasma urea nitroge n measurement (mass/volume)on 08-30-2021 Urea nitrogen [Mass/Vol] 25 mg/dL 7-18 [facility] Work Phone: Thin prep Papanicolaou smear with manual screeningon 08-30-2021 Thin prep Papanicolaou smear with manual screening 8 5-15 [facility] Work Phone: Absolute lymphocyte counton 08-19-2021 Lymphocytes Auto (Unsp spec) [#/Vol] 2.66 10*3/uL 0.83-4.51 [facility] Work Phone: Basophil percentageon 2021 Chloride [Moles/Vol] 108 mmol/L 98-107 [facility] Work Phone: Glucose [Mass/Vol] 86 mg/dL 74-106 [facility] Work Phone: Potassium [Moles/Vol] 3.6 mmol/L 3.5-5.1 [facility] Work Phone: Sodium [Moles/Vol] 137 mmol/L 136-145 [facility] Work Phone: Basophils/100 WBC (Bld) 0.4 % 0-1 [facility] Work Phone: Eosinophils/100 WBC (Bld) 0.4 % 0-5 [facility] Work Phone: Neutrophils (Bld) [#/Vol] 6.8 10*3/uL 2.0-7.7 [facility] Work Phone: Neutrophils/100 WBC (Bld) 66.0 % 47-70 [facility] Work Phone: WBC (Bld) [#/Vol] 10.3 10*3/uL 4.4-11.0 [facility] Work Phone: Blood erythrocytes count (nu mber/volume)on 08-19-2021 RBC (Bld) [#/Vol] 3.91 10*6/uL 4.2-5.4 [facility] Work Phone: Blood hemoglobin measurement (mass/volume)on 08-19-2021 Hemoglobin (Bld) [Mass/Vol] 11.3 g/dL 12.0-15.0 [facility] Work Phone: Blood lymphocytes/100 leukoc yteson 08-19-2021 Lymphocytes/100 WBC (Bld) 25.9 % 19-41 [facility] Work Phone: Blood monocytes/100 leukocyt eson 08-19-2021 Monocytes/100 WBC (Bld) 6.9 % 0-10 [facility] Work Phone: Blood platelet mean volumeon 08-19-2021 Platelet mean volume (Bld) [Entitic vol] 11.1 fL 6.2-12.0 [facility] Work Phone: Determination of erythrocyte mean corpuscular volume (MCV)on 08-19-2021 MCV (RBC) [Entitic vol] 85.9 fL 81-99 [facility] Work Phone: Glucose Glucometer (BldC) [M ass/Vol]on 08-19-2021 Glucose [Mass/Vol] 252 mg/dL 74-106 [facility] Work Phone: Comment on above: MANAGEMENT OF PATIEN T CARE PER NURSING PROTOCOL Hematocrit Auto (Bld) [Volum e fraction]on 08-19-2021 Hematocrit (Bld) [Volume fraction] 33.6 % 37-47 [facility] Work Phone: Laboratory - Chemistry and C hemistry - challengeon 08-19-2021 CO2 [Moles/Vol] 23.0 mmol/L 21.0-32.0 [facility] Work Phone: Urea nitrogen/Creatinine [Mass ratio] 24.0 mg/mg 10-20 [facility] Work Phone: Laboratory - Hematology and Cell countson 08-19-2021 Erythrocyte distribution width (RBC) [Entitic vol] 44.3 fL 35.1-43.9 [facility] Work Phone: Erythrocyte distribution width (RBC) [Ratio] 14.1 % 11.6-14.6 [facility] Work Phone: Immature granulocytes/100 WBC (Bld) 0.400 % 0.0-0.9 [facility] Work Phone: Comment on above: IG% - Immature Granu locytes (promyelocytes, myelocytes and metamyelocytes) > 1% indicates that a LEFT SHIFT is Present. MCH (RBC) [Entitic mass] 28.9 pg 27.0-32.0 [facility] Work Phone: Nucleated RBC/100 WBC (Bld) [Ratio] 0 % 0-5 [facility] Work Phone: MCHC Auto (RBC) [Mass/Vol]on 08-19-2021 MCHC (RBC) [Mass/Vol] 33.6 g/dL 32-36 [facility] Work Phone: No Panel Informationon 08-19 Estimated Creatinine Clearance Calc 34.42 ml/min [facility] Work Phone: Estimated GFR (MDRD) Amer 102 mL/min >60 [facility] Work Phone: Comment on above: GFR Calc Estimated GFR (MDRD) Non-Af Amer 84 mL/min >60 [facility] Work Phone: Comment on above: Non- GFR Calc Platelets bldon 08-19-2021 Platelets (Bld) [#/Vol] 160 10*3/uL 150-450 [facility] Work Phone: Serum or plasma calcium roger urement (mass/volume)on 08-19-2021 Calcium [Mass/Vol] 8.3 mg/dL 8.5-10.1 [facility] Work Phone: Serum or plasma creatinine m easurement (mass/volume)on 08-19-2021 Creatinine [Mass/Vol] 0.71 mg/dL 0.55-1.02 [facility] Work Phone: Comment on above: The validity of the calculated GFR & GFRAA in patients over 70 years has not been determined. Clinical correlation is essential. Serum or plasma urea nitroge n measurement (mass/volume)on 08-19-2021 Urea nitrogen [Mass/Vol] 17 mg/dL 7-18 [facility] Work Phone: Thin prep Papanicolaou smear with manual screeningon 08-19-2021 Thin prep Papanicolaou smear with manual screening 6 5-15 [facility] Work Phone: Absolute lymphocyte counton 08-18-2021 Lymphocytes Auto (Unsp spec) [#/Vol] 2.55 10*3/uL 0.83-4.51 [facility] Work Phone: Basophil percentageon 2021 Chloride [Moles/Vol] 103 mmol/L 98-107 [facility] Work Phone: Glucose [Mass/Vol] 314 mg/dL 74-106 [facility] Work Phone: Comment on above: Glucose result great er than or equal to 200 mg/dLsuggests DIABETES MELLITUS per A.D.A. criteria. Potassium [Moles/Vol] 6.1 mmol/L 3.5-5.1 [facility] Work Phone: Comment on above: Slight Hemolysis, Re sult may be falsely increased. Critical Result(s) Called at: 20:20:17 08/18/2021 by: Porsha mckenzie [facility]. Results read back by same. Sodium [Moles/Vol] 133 mmol/L 136-145 [facility] Work Phone: Basophil percentage 0 SEEN /hpf [facility] Work Phone: Basophils/100 WBC (Bld) 0.3 % 0-1 [facility] Work Phone: Bilirubin [Mass/Vol] 0.90 mg/dL 0.20-1.00 [facility] Work Phone: Comment on above: For patients on eltr ombopag therapy, use of [place] TBIL is not recommended. Eosinophils/100 WBC (Bld) 0.0 % 0-5 [facility] Work Phone: Neutrophils (Bld) [#/Vol] 9.2 10*3/uL 2.0-7.7 [facility] Work Phone: Neutrophils/100 WBC (Bld) 74.2 % 47-70 [facility] Work Phone: Protein [Mass/Vol] 7.7 g/dL 6.4-8.2 [facility] Work Phone: WBC (Bld) [#/Vol] 12.4 10*3/uL 4.4-11.0 [facility] Work Phone: Bilirubin Test strip Ql (U)o n 08-18-2021 Bilirubin Ql (U) Negative Negative [facility] Work Phone: Blood erythrocytes count (nu mber/volume)on 08-18-2021 RBC (Bld) [#/Vol] 4.91 10*6/uL 4.2-5.4 [facility] Work Phone: Blood hemoglobin measurement (mass/volume)on 08-18-2021 Hemoglobin (Bld) [Mass/Vol] 14.3 g/dL 12.0-15.0 [facility] Work Phone: Blood lymphocytes/100 leukoc yteson 08-18-2021 Lymphocytes/100 WBC (Bld) 20.6 % 19-41 [facility] Work Phone: Blood monocytes/100 leukocyt eson 08-18-2021 Monocytes/100 WBC (Bld) 4.1 % 0-10 [facility] Work Phone: Blood platelet mean volumeon 08-18-2021 Platelet mean volume (Bld) [Entitic vol] 10.9 fL 6.2-12.0 [facility] Work Phone: Determination of erythrocyte mean corpuscular volume (MCV)on 08-18-2021 MCV (RBC) [Entitic vol] 86.4 fL 81-99 [facility] Work Phone: Glucose Glucometer (BldC) [M ass/Vol]on 08-18-2021 Glucose [Mass/Vol] 276 mg/dL 74-106 [facility] Work Phone: Comment on above: MANAGEMENT OF PATIEN T CARE PER NURSING PROTOCOL HCO3 (BldA) [Moles/Vol]on HCO3 (Bld) [Moles/Vol] 19 mmol/L 22-26 [facility] Work Phone: Hematocrit Auto (Bld) [Volum e fraction]on 08-18-2021 Hematocrit (Bld) [Volume fraction] 42.4 % 37-47 [facility] Work Phone: Hyaline casts LM.LPF (Urine sed) [#/Area]on 08-18-2021 Hyaline casts (Urine sed) [#/Area] 5 /[LPF] [facility] Work Phone: Ketones Test strip Ql (U)on 08-18-2021 Ketones Ql (U) 150 mg/dl Negative [facility] Work Phone: Comment on above: CRITICAL VALUE *HCRI TICAL VALUE VERIFIED. CALLED TO [id number] Porsha Mckenzie.RESULTS READ BACK BY SAME . Laboratory - Chemistry and C hemistry - challengeon 08-18-2021 CO2 [Moles/Vol] 19.0 mmol/L 21.0-32.0 [facility] Work Phone: Urea nitrogen/Creatinine [Mass ratio] 22.8 mg/mg 10-20 [facility] Work Phone: CO2 [Moles/Vol] 20 mmol/L 23-33 [facility] Work Phone: ALP [Catalytic activity/Vol] 105 U/L 45-117 [facility] Work Phone: ALT [Catalytic activity/Vol] 13 U/L 13-56 [facility] Work Phone: Globulin (S) [Mass/Vol] 3.7 g/dL 2.2-4.2 [facility] Work Phone: Laboratory - Hematology and Cell countson 08-18-2021 Erythrocyte distribution width (RBC) [Entitic vol] 43.5 fL 35.1-43.9 [facility] Work Phone: Erythrocyte distribution width (RBC) [Ratio] 13.7 % 11.6-14.6 [facility] Work Phone: Immature granulocytes/100 WBC (Bld) 0.800 % 0.0-0.9 [facility] Work Phone: Comment on above: IG% - Immature Granu locytes (promyelocytes, myelocytes and metamyelocytes) > 1% indicates that a LEFT SHIFT is Present. MCH (RBC) [Entitic mass] 29.1 pg 27.0-32.0 [facility] Work Phone: Nucleated RBC/100 WBC (Bld) [Ratio] 0 % 0-5 [facility] Work Phone: MCHC Auto (RBC) [Mass/Vol]on 08-18-2021 MCHC (RBC) [Mass/Vol] 33.7 g/dL 32-36 [facility] Work Phone: Mucus LM Ql (Urine sed)on Mucus Ql (Urine sed) 0 SEEN /hpf [facility] Work Phone: Nitrite Test strip Ql (U)on 08-18-2021 Nitrite Ql (U) Negative Negative [facility] Work Phone: No Panel Informationon 08-18 Estimated Creatinine Clearance Calc 28.41 ml/min [facility] Work Phone: Estimated GFR (MDRD) Amer 52 mL/min >60 [facility] Work Phone: Comment on above: GFR Calc Estimated GFR (MDRD) Non-Af Amer 43 mL/min >60 [facility] Work Phone: Comment on above: Non- GFR Calc Bed Mix Venous Bld PCO2 at Pat Temp 42.1 mmHg 41-51 [facility] Work Phone: Blood Gas Specimen Type CATHY [facility] Work Phone: Venous Blood Base Excess -8 mmol/L -1.0-3.5 [facility] Work Phone: PO2 venouson 08-18-2021 Oxygen (BldV) [Partial pressure] 22 mm[Hg] 25-40 [facility] Work Phone: Platelets bldon 08-18-2021 Platelets (Bld) [#/Vol] 229 10*3/uL 150-450 [facility] Work Phone: Protein Test strip Ql (U)on 08-18-2021 Protein Ql (U) 30 mg/dl Negative [facility] Work Phone: Serum or plasma acetone roger urement (mass/volume)on 08-18-2021 Acetone [Mass/Vol] MODERATE NEG [facility] Work Phone: Serum or plasma albumin roger urement (mass/volume)on 08-18-2021 Albumin [Mass/Vol] 4.0 g/dL 3.2-5.0 [facility] Work Phone: Serum or plasma albumin/glob ulin mass ratioon 08-18-2021 Albumin/Globulin [Mass ratio] 1.1 {ratio} 0.9-2.4 [facility] Work Phone: Serum or plasma calcium roger urement (mass/volume)on 08-18-2021 Calcium [Mass/Vol] 9.3 mg/dL 8.5-10.1 [facility] Work Phone: Serum or plasma creatinine m easurement (mass/volume)on 08-18-2021 Creatinine [Mass/Vol] 1.27 mg/dL 0.55-1.02 [facility] Work Phone: Comment on above: The validity of the calculated GFR & GFRAA in patients over 70 years has not been determined. Clinical correlation is essential. Serum or plasma urea nitroge n measurement (mass/volume)on 08-18-2021 Urea nitrogen [Mass/Vol] 29 mg/dL 7-18 [facility] Work Phone: Squamous epithelial cells de tection in urine sediment by light microscopyon 08-18-2021 Epithelial cells.squamous LM Ql (Urine sed) 0 SEEN /hpf [facility] Work Phone: Thin prep Papanicolaou smear with manual screeningon 08-18-2021 Thin prep Papanicolaou smear with manual screening 11 5-15 [facility] Work Phone: Thin prep Papanicolaou smear with manual screening 10 U/L 15-37 [facility] Work Phone: Urine blood detectionon 04-0 RBC Ql (U) Negative Negative [facility] Work Phone: RBC Ql (U) 0 SEEN /hpf [facility] Work Phone: Urine clarityon 08-18-2021 Clarity (U) Clear Clear [facility] Work Phone: Urine color determinationon 08-18-2021 Color (U) Yellow Yellow [facility] Work Phone: Urine glucose detectionon Glucose Ql (U) 1000 mg/dl Normal [facility] Work Phone: Urine leukocyte esterase det ection by dipstickon 08-18-2021 Leukocyte esterase Test strip Ql (U) Negative Negative [facility] Work Phone: Urine pHon 08-18-2021 pH (U) 5.0 [pH] [facility] Work Phone: Urine sediment bacteria coun t by microscopy (number/high power field)on 08-18-2021 Bacteria LM.HPF (Urine sed) [#/Area] 0 /[HPF] None Seen [facility] Work Phone: Urine specific gravity measu rementon 08-18-2021 Specific gravity (U) [Rel density] 1.025 [facility] Work Phone: Urobilinogen Auto test strip Ql (U)on 08-18-2021 Urobilinogen Ql (U) Normal mg/dl Normal [facility] Work Phone: Vital signson 08-18-2021 Oxygen saturation in Blood 30 % 50-70 [facility] Work Phone: Whole blood hemoglobin A1c/t otal hemoglobin ratio (mass fraction)on 08-18-2021 HbA1c (Bld) [Mass fraction] 9.4 % 3.8-5.6 [facility] Work Phone: Comment on above: Normal < 5.7 % Predi abetic 5.7 - 6.4 % Diabetic >or= 6.5 % Please note range changes. pH measurementon 08-18-2021 pH (Unsp spec) 7.26 [pH] 7.32-7.42 [facility] Work Phone: Influenza virus A and B and SARS-CoV-2 (COVID-19) Ag panel - Upper respiratory specim SARS-CoV-2 (COVID-19) RNA SHABANA+probe Ql (Resp) [facility] Work Phone: Vital Signs Date Time Vital Sign Value Performing Clinician Faci lity 03-04-2025 08:30-0400 Body height 160.[address] Rg Menchaca MD Work Phone: [facility] 03-04-2025 08:30-0400 Body mass index (BMI) [Ratio] 24 kg/m2 Dr. Rg Menchaca MD Work Phone: [facility] 03-04-2025 08:30-0400 Body temperature 96.9 [degF] Dr. Rg Menchaca MD Work Phone: [facility] 03-04-2025 08:30-0400 Body weight 61.[address] Rg Menchaca MD Work Phone: [facility] 03-04-2025 08:30-0400 Diastolic blood pressure 71 mm[Hg] Dr. Rg Menchaca MD Work Phone: [facility] 03-04-2025 08:30-0400 Heart rate 84 /min Dr. Rg Menchaca MD Work Phone: [facility] 03-04-2025 08:30-0400 Respiratory rate 16 /min Dr. Rg Menchaca MD Work Phone: [facility] 03-04-2025 08:30-0400 SaO2% (BldA) [Mass fraction] 96 % Dr. Rg Menchaca MD Work Phone: [facility] 03-04-2025 08:30-0400 Systolic blood pressure 97 mm[Hg] Dr. gR Menchaca MD Work Phone: [facility] 03-03-2025 08:08-0400 Body mass index (BMI) [Ratio] 24 kg/m2 Dr. Rg Menchaca MD Work Phone: 6(527)907-194193 [address] 03-03-2025 08:08-0400 Body temperature 97.3 [degF] Dr. Rg Menchaca MD Work Phone: 5(882)341-856639 [place] [address] 03-03-2025 08:08-0400 Body weight 61.[address] Rg Menchaca MD Work Phone: 4(391)955-546439 [place] [address] 03-03-2025 08:08-0400 Diastolic blood pressure 85 mm[Hg] Dr. Rg Menchaca MD Work Phone: 1(163)762-705139 [place] [address] 03-03-2025 08:08-0400 Heart rate 82 /min Dr. Rg Menchaca MD Work Phone: 1(706)836-282639 [place] [address] 03-03-2025 08:08-0400 Respiratory rate 16 /min Dr. Rg Menchaca MD Work Phone: 6(321)577-361239 [place] [address] 03-03-2025 08:08-0400 SaO2% (BldA) [Mass fraction] 96 % Dr. Rg Menchaca MD Work Phone: 1(022)442-643939 [place] [address] 03-03-2025 08:08-0400 Systolic blood pressure 98 mm[Hg] Dr. Rg Menchaca MD Work Phone: 2(820)490-733739 [place] [address] 03-02-2025 08:01-0400 Body mass index (BMI) [Ratio] 24 kg/m2 Dr. Rg Menchaca MD Work Phone: 5(265)725-827639 [place] [address] 03-02-2025 08:01-0400 Body temperature 96.9 [degF] Dr. Rg Menchaca MD Work Phone: 5(219)868-555939 [place] [address] 03-02-2025 08:01-0400 Body weight 61.[address] Rg Menchaca MD Work Phone: 9(269)925-643639 [place] [address] 03-02-2025 08:01-0400 Diastolic blood pressure 62 mm[Hg] Dr. Rg Menchaca MD Work Phone: 8(176)405-797939 [place] [address] 03-02-2025 08:01-0400 Heart rate 70 /min Dr. Rg Menchaca MD Work Phone: 0(757)112-973339 [place] [address] 03-02-2025 08:01-0400 Respiratory rate 16 /min Dr. Rg Menchaca MD Work Phone: [facility] 03-02-2025 08:01-0400 SaO2% (BldA) [Mass fraction] 70 % Dr. Rg Menchaca MD Work Phone: [facility] 03-02-2025 08:01-0400 Systolic blood pressure 92 mm[Hg] Dr. Rg Menchaca MD Work Phone: 2(978)471-932939 [place] [address] 02-04-2025 13:51-0400 Body temperature 96.8 [degF] Dr. Rg Menchaca MD Work Phone: 2(249)908-753639 [place] [address] 02-04-2025 13:51-0400 Diastolic blood pressure 62 mm[Hg] Dr. Rg Menchaca MD Work Phone: 4(959)498-785439 [place] [address] 02-04-2025 13:51-0400 Heart rate 62 /min Dr. Rg Menchaca MD Work Phone: 1(122)919-515793 [address] 02-04-2025 13:51-0400 Respiratory rate 16 /min Dr. Rg Menchaca MD Work Phone: 7(893)855-291393 [address] 02-04-2025 13:51-0400 SaO2% (BldA) [Mass fraction] 96 % Dr. Rg Menchaca MD Work Phone: 0(051)913-998693 [address] 02-04-2025 13:51-0400 Systolic blood pressure 110 mm[Hg] Dr. Rg Menchaca MD Work Phone: 9(778)707-651693 [address] 02-04-2025 08:28-0400 Body height 160.[address] Rg Menchaca MD Work Phone: 6(626)974-956593 [address] 02-04-2025 08:28-0400 Body mass index (BMI) [Ratio] 25.3 kg/m2 Dr. Rg Menchaca MD Work Phone: [facility] 02-04-2025 08:28-0400 Body weight 64.[address] Rg Menchaca MD Work Phone: 5(169)491-866893 [address] 02-03-2025 07:40-0400 Body height 160.[address] Rg Menchaca MD Work Phone: [facility] 02-03-2025 07:40-0400 Body mass index (BMI) [Ratio] 25.3 kg/m2 Dr. Rg Menchaca MD Work Phone: [facility] 02-03-2025 07:40-0400 Body temperature 96.8 [degF] Dr. Rg Menchaca MD Work Phone: 3(014)396-921393 [address] 02-03-2025 07:40-0400 Body weight 64.[address] Rg Menchaca MD Work Phone: 6(821)320-879339 [place] [address] 02-03-2025 07:40-0400 Diastolic blood pressure 67 mm[Hg] Dr. Rg Menchaca MD Work Phone: 8(499)421-964539 [place] [address] 02-03-2025 07:40-0400 Heart rate 71 /min Dr. Rg Menchaca MD Work Phone: 2(642)500-271839 [place] [address] 02-03-2025 07:40-0400 Respiratory rate 16 /min Dr. Rg Menchaca MD Work Phone: 7(935)062-805439 [place] [address] 02-03-2025 07:40-0400 SaO2% (BldA) [Mass fraction] 95 % Dr. Rg Menchaca MD Work Phone: 7(838)934-333693 [address] 02-03-2025 07:40-0400 Systolic blood pressure 112 mm[Hg] Dr. Rg Menchaca MD Work Phone: 9(865)512-638715 [place] [address] 02-02-2025 07:55-0400 Body height 160.[address] Rg Menchaca MD Work Phone: 1(796)187-652293 [address] 02-02-2025 07:55-0400 Body mass index (BMI) [Ratio] 25.3 kg/m2 Dr. Rg Menchaca MD Work Phone: [facility] 02-02-2025 07:55-0400 Body temperature 97 [degF] Dr. Rg Menchaca MD Work Phone: 8(322)636-395715 [place] [address] 02-02-2025 07:55-0400 Body weight 64.[address] Rg Menchaca MD Work Phone: [facility] 02-02-2025 07:55-0400 Diastolic blood pressure 67 mm[Hg] Dr. Rg Menchaca MD Work Phone: [facility] 02-02-2025 07:55-0400 Heart rate 80 /min Dr. Rg Menchaca MD Work Phone: 8(823)552-055039 [place] [address] 02-02-2025 07:55-0400 Respiratory rate 16 /min Dr. Rg Menchaca MD Work Phone: 6(894)575-785739 [place] [address] 02-02-2025 07:55-0400 SaO2% (BldA) [Mass fraction] 99 % Dr. Rg Menchaca MD Work Phone: 1(751)669-075139 [place] [address] 02-02-2025 07:55-0400 Systolic blood pressure 97 mm[Hg] Dr. Rg Menchaca MD Work Phone: 7(232)577-817639 [place] [address] 01-08-2025 07:50-0400 Body height 160.[address] Rg Menchaca MD Work Phone: 8(472)124-778539 [place] [address] 01-08-2025 07:50-0400 Body mass index (BMI) [Ratio] 25.4 kg/m2 Dr. Rg Menchaca MD Work Phone: 8(478)550-580539 [place] [address] 01-08-2025 07:50-0400 Body temperature 97.1 [degF] Dr. Rg Menchaca MD Work Phone: 2(100)683-142915 [place] [address] 01-08-2025 07:50-0400 Body weight 65.[address] Rg Menchaca MD Work Phone: 3(681)944-934539 [place] [address] 01-08-2025 07:50-0400 Diastolic blood pressure 70 mm[Hg] Dr. Rg Menchaca MD Work Phone: 3(059)090-944493 [address] 01-08-2025 07:50-0400 Heart rate 71 /min Dr. Rg Menchaca MD Work Phone: 0(870)460-611915 [place] [address] 01-08-2025 07:50-0400 Respiratory rate 16 /min Dr. Rg Menchaca MD Work Phone: [facility] 01-08-2025 07:50-0400 SaO2% (BldA) [Mass fraction] 96 % Dr. Rg Menchaca MD Work Phone: [facility] 01-08-2025 07:50-0400 Systolic blood pressure 122 mm[Hg] Dr. Rg Menchaca MD Work Phone: 2(013)001-561539 [place] [address] 01-07-2025 07:50-0400 Body height 160.[address] Rg Menchaca MD Work Phone: 1(258)687-640039 [place] [address] 01-07-2025 07:50-0400 Body mass index (BMI) [Ratio] 25.3 kg/m2 Dr. Rg Menchaca MD Work Phone: 5(595)077-169739 [place] [address] 01-07-2025 07:50-0400 Body temperature 96.7 [degF] Dr. Rg Menchaca MD Work Phone: 0(591)713-341739 [place] [address] 01-07-2025 07:50-0400 Body weight 64.[address] Rg Menchaca MD Work Phone: 2(129)956-453639 [place] [address] 01-07-2025 07:50-0400 Diastolic blood pressure 77 mm[Hg] Dr. Rg Menchaca MD Work Phone: 2(886)609-785039 [place] [address] 01-07-2025 07:50-0400 Heart rate 77 /min Dr. Rg Menchaca MD Work Phone: 8(798)218-960039 [place] [address] 01-07-2025 07:50-0400 Respiratory rate 16 /min Dr. Rg Menchaca MD Work Phone: 7(925)005-184293 [address] 01-07-2025 07:50-0400 SaO2% (BldA) [Mass fraction] 95 % Dr. Rg Menchaca MD Work Phone: 3(737)980-777039 [place] [address] 01-07-2025 07:50-0400 Systolic blood pressure 92 mm[Hg] Dr. Rg Menchaca MD Work Phone: 6(823)995-492239 [place] [address] 01-06-2025 08:15-0400 Body height 160.[address] Rg Menchaca MD Work Phone: [facility] 01-06-2025 08:15-0400 Body mass index (BMI) [Ratio] 25.3 kg/m2 Dr. Rg Menchaca MD Work Phone: 6(129)611-744039 [place] [address] 01-06-2025 08:15-0400 Body temperature 96.9 [degF] Dr. Rg Menchaca MD Work Phone: 4(853)653-655839 [place] [address] 01-06-2025 08:15-0400 Body weight 64.[address] Rg Menchaca MD Work Phone: 8(164)421-451839 [place] [address] 01-06-2025 08:15-0400 Diastolic blood pressure 87 mm[Hg] Dr. Rg Menchaca MD Work Phone: 1(466)471-420839 [place] [address] 01-06-2025 08:15-0400 Heart rate 69 /min Dr. Rg Menchaca MD Work Phone: 0(967)367-354639 [place] [address] 01-06-2025 08:15-0400 Respiratory rate 16 /min Dr. Rg Menchaca MD Work Phone: 8(785)318-035139 [place] [address] 01-06-2025 08:15-0400 SaO2% (BldA) [Mass fraction] 98 % Dr. Rg Menchaca MD Work Phone: 5(002)007-570939 [place] [address] 01-06-2025 08:15-0400 Systolic blood pressure 128 mm[Hg] Dr. Rg Menchaca MD Work Phone: 9(087)545-195439 [place] [address] 12-03-2024 08:37-0400 Body height 160.[address] Rg Menchaca MD Work Phone: 0(120)663-554539 [place] [address] 12-03-2024 08:37-0400 Body temperature 96.3 [degF] Dr. Rg Menchaca MD Work Phone: 3(133)547-745739 [place] [address] 12-03-2024 08:37-0400 Diastolic blood pressure 66 mm[Hg] Dr. Rg Menchaca MD Work Phone: 4(205)627-842439 [place] [address] 12-03-2024 08:37-0400 Heart rate 67 /min Dr. Rg Menchaca MD Work Phone: 3(513)146-830215 [place] [address] 12-03-2024 08:37-0400 Respiratory rate 16 /min Dr. Rg Menchaca MD Work Phone: 5(232)077-797139 [place] [address] 12-03-2024 08:37-0400 SaO2% (BldA) [Mass fraction] 97 % Dr. Rg Menchaca MD Work Phone: 2(941)993-077139 [place] [address] 12-03-2024 08:37-0400 Systolic blood pressure 94 mm[Hg] Dr. Rg Menchaca MD Work Phone: 1(788)560-640639 [place] [address] 12-02-2024 08:08-0400 Body height 160.[address] Rg Menchaca MD Work Phone: 8(597)450-167139 [place] [address] 12-02-2024 08:08-0400 Body mass index (BMI) [Ratio] 24.3 kg/m2 Dr. Rg Menchaca MD Work Phone: 5(640)152-236139 [place] [address] 12-02-2024 08:08-0400 Body temperature 96.4 [degF] Dr. Rg Menchaca MD Work Phone: 5(031)685-317139 [place] [address] 12-02-2024 08:08-0400 Body weight 62.[address] Rg Menchaca MD Work Phone: 0(930)284-041339 [place] [address] 12-02-2024 08:08-0400 Diastolic blood pressure 67 mm[Hg] Dr. Rg Menchaca MD Work Phone: 4(098)808-725339 [place] [address] 12-02-2024 08:08-0400 Heart rate 82 /min Dr. Rg Menchaca MD Work Phone: 8(539)572-489339 [place] [address] 12-02-2024 08:08-0400 Respiratory rate 16 /min Dr. Rg Menchaca MD Work Phone: 1(054)669-751439 [place] [address] 12-02-2024 08:08-0400 SaO2% (BldA) [Mass fraction] 96 % Dr. Rg Menchaca MD Work Phone: 2(052)961-374139 [place] [address] 12-02-2024 08:08-0400 Systolic blood pressure 110 mm[Hg] Dr. Rg Menchaca MD Work Phone: 1(068)754-335239 [place] [address] 12-01-2024 08:09-0400 Body height 160.[address] Rg Menchaca MD Work Phone: [facility] 12-01-2024 08:09-0400 Body mass index (BMI) [Ratio] 24.3 kg/m2 Dr. Rg Menchaca MD Work Phone: [facility] 12-01-2024 08:09-0400 Body temperature 96.7 [degF] Dr. Rg Menchaca MD Work Phone: [facility] 12-01-2024 08:09-0400 Body weight 62.[address] Rg Menchaca MD Work Phone: [facility] 12-01-2024 08:09-0400 Diastolic blood pressure 75 mm[Hg] Dr. Rg Menchaca MD Work Phone: [facility] 12-01-2024 08:09-0400 Heart rate 78 /min Dr. Rg Menchaca MD Work Phone: [facility] 12-01-2024 08:09-0400 Respiratory rate 16 /min Dr. Rg Menchaca MD Work Phone: [facility] 12-01-2024 08:09-0400 SaO2% (BldA) [Mass fraction] 95 % Dr. Rg Menchaca MD Work Phone: [facility] 12-01-2024 08:09-0400 Systolic blood pressure 90 mm[Hg] Dr. Rg Menchaca MD Work Phone: [facility] 11-11-2024 12:42-0400 Diastolic blood pressure 67 mm[Hg] Windy Yuen MD Work Phone: [facility] 11-11-2024 12:42-0400 Heart rate 74 /min Windy Yuen MD Work Phone: [facility] 11-11-2024 12:42-0400 SaO2% (BldA) [Mass fraction] 96 % Windy Yuen MD Work Phone: [facility] 11-11-2024 12:42-0400 Systolic blood pressure 108 mm[Hg] Windy Yuen MD Work Phone: [facility] 11-05-2024 08:15-0400 Body height 160.[address] Rg Menchaca MD Work Phone: [facility] 11-05-2024 08:15-0400 Body mass index (BMI) [Ratio] 24.4 kg/m2 Dr. Rg Menchaca MD Work Phone: [facility] 11-05-2024 08:15-0400 Body temperature 96.5 [degF] Dr. Rg Menchaca MD Work Phone: [facility] 11-05-2024 08:15-0400 Body weight 62.[address] Rg Menchaca MD Work Phone: [facility] 11-05-2024 08:15-0400 Diastolic blood pressure 64 mm[Hg] Dr. Rg Menchaca MD Work Phone: [facility] 11-05-2024 08:15-0400 Heart rate 74 /min Dr. Rg Menchaca MD Work Phone: [facility] 11-05-2024 08:15-0400 Respiratory rate 16 /min Dr. Rg Menchaca MD Work Phone: [facility] 11-05-2024 08:15-0400 SaO2% (BldA) [Mass fraction] 95 % Dr. Rg Menchaca MD Work Phone: [facility] 11-05-2024 08:15-0400 Systolic blood pressure 142 mm[Hg] Dr. Rg Menchaca MD Work Phone: [facility] 11-04-2024 07:55-0400 Body height 160.[address] Rg Menchaca MD Work Phone: [facility] 11-04-2024 07:55-0400 Body mass index (BMI) [Ratio] 24.4 kg/m2 Dr. Rg Menchaca MD Work Phone: 9(632)670-826739 [place] [address] 11-04-2024 07:55-0400 Body temperature 96.2 [degF] Dr. Rg Menchaca MD Work Phone: 4(274)710-125039 [place] [address] 11-04-2024 07:55-0400 Body weight 62.[address] Rg Menchaca MD Work Phone: 2(623)751-657839 [place] [address] 11-04-2024 07:55-0400 Diastolic blood pressure 70 mm[Hg] Dr. Rg Menchaca MD Work Phone: 0(340)951-938239 [place] [address] 11-04-2024 07:55-0400 Heart rate 74 /min Dr. Rg Menchaca MD Work Phone: 3(600)411-113939 [place] [address] 11-04-2024 07:55-0400 Respiratory rate 16 /min Dr. Rg Menchaca MD Work Phone: 4(211)379-249539 [place] [address] 11-04-2024 07:55-0400 SaO2% (BldA) [Mass fraction] 94 % Dr. Rg Menchaca MD Work Phone: 3(893)776-139439 [place] [address] 11-04-2024 07:55-0400 Systolic blood pressure 118 mm[Hg] Dr. Rg Menchaca MD Work Phone: 7(848)867-685839 [place] [address] 11-03-2024 08:09-0400 Body height 160.[address] Rg Menchaca MD Work Phone: 2(852)455-885839 [place] [address] 11-03-2024 08:09-0400 Body mass index (BMI) [Ratio] 24.4 kg/m2 Dr. Rg Menchaca MD Work Phone: 6(512)163-592439 [place] [address] 11-03-2024 08:09-0400 Body temperature 97.5 [degF] Dr. Rg Menchaca MD Work Phone: 7(243)344-035939 [place] [address] 11-03-2024 08:09-0400 Body weight 62.[address] Rg Menchaca MD Work Phone: 7(945)691-982139 [place] [address] 11-03-2024 08:09-0400 Diastolic blood pressure 68 mm[Hg] Dr. Rg Menchaca MD Work Phone: 4(974)922-776639 [place] [address] 11-03-2024 08:09-0400 Heart rate 86 /min Dr. Rg Menchaca MD Work Phone: [facility] 11-03-2024 08:09-0400 Respiratory rate 16 /min Dr. Rg Menchaca MD Work Phone: [facility] 11-03-2024 08:09-0400 Systolic blood pressure 116 mm[Hg] Dr. Rg Menchaca MD Work Phone: [facility] 10-08-2024 08:55-0400 Body temperature 97.1 [degF] Dr. Rg Menchaca MD Work Phone: 1(885)845-993315 [place] [address] 10-08-2024 08:55-0400 Diastolic blood pressure 71 mm[Hg] Dr. gR Menchaca MD Work Phone: [facility] 10-08-2024 08:55-0400 Heart rate 68 /min Dr. Rg Menchaca MD Work Phone: [facility] 10-08-2024 08:55-0400 Respiratory rate 16 /min Dr. Rg Menchaca MD Work Phone: [facility] 10-08-2024 08:55-0400 SaO2% (BldA) [Mass fraction] 94 % Dr. Rg Menchaca MD Work Phone: [facility] 10-08-2024 08:55-0400 Systolic blood pressure 116 mm[Hg] Dr. Rg Menchaca MD Work Phone: [facility] 10-07-2024 08:31-0400 Body height 160.[address] Rg Menchaca MD Work Phone: [facility] 10-07-2024 08:31-0400 Body mass index (BMI) [Ratio] 23.3 kg/m2 Dr. Rg Menchaca MD Work Phone: [facility] 10-07-2024 08:31-0400 Body temperature 97.2 [degF] Dr. Rg Menchaca MD Work Phone: [facility] 10-07-2024 08:31-0400 Body weight 59.[address] Rg Menchaca MD Work Phone: [facility] 10-07-2024 08:31-0400 Diastolic blood pressure 63 mm[Hg] Dr. Rg Menchaca MD Work Phone: [facility] 10-07-2024 08:31-0400 Heart rate 72 /min Dr. Rg Menchaca MD Work Phone: 2(600)738-711515 [place] [address] 10-07-2024 08:31-0400 Respiratory rate 14 /min Dr. Rg Menchaca MD Work Phone: 0(274)212-193739 [place] [address] 10-07-2024 08:31-0400 SaO2% (BldA) [Mass fraction] 96 % Dr. Rg Menchaca MD Work Phone: [facility] 10-07-2024 08:31-0400 Systolic blood pressure 112 mm[Hg] Dr. Rg Menchaca MD Work Phone: 0(864)469-734415 [place] [address] 10-06-2024 08:06-0400 Body height 160.[address] gR Menchaca MD Work Phone: 1(670)237-410793 [address] 10-06-2024 08:06-0400 Body mass index (BMI) [Ratio] 24.4 kg/m2 Dr. Rg Menchaca MD Work Phone: [facility] 10-06-2024 08:06-0400 Body temperature 97.4 [degF] Dr. Rg Menchaca MD Work Phone: [facility] 10-06-2024 08:06-0400 Body weight 62.[address] Rg Menchaca MD Work Phone: [facility] 10-06-2024 08:06-0400 Diastolic blood pressure 59 mm[Hg] Dr. Rg Menchaca MD Work Phone: [facility] 10-06-2024 08:06-0400 Heart rate 73 /min Dr. Rg Menchaca MD Work Phone: [facility] 10-06-2024 08:06-0400 Respiratory rate 16 /min Dr. Rg Menchaca MD Work Phone: [facility] 10-06-2024 08:06-0400 SaO2% (BldA) [Mass fraction] 92 % Dr. Rg Menchaca MD Work Phone: [facility] 10-06-2024 08:06-0400 Systolic blood pressure 102 mm[Hg] Dr. Rg Menchaca MD Work Phone: 4(735)387-524139 [place] [address] 09-10-2024 08:20-0400 Body height 160.[address] Rg Menchaca MD Work Phone: 8(963)339-990939 [place] [address] 09-10-2024 08:20-0400 Body mass index (BMI) [Ratio] 24.7 kg/m2 Dr. Rg Menchaca MD Work Phone: 7(132)278-127339 [place] [address] 09-10-2024 08:20-0400 Body temperature 96.8 [degF] Dr. Rg Menchaca MD Work Phone: 2(936)460-592939 [place] [address] 09-10-2024 08:20-0400 Body weight 63.[address] Rg Menchaca MD Work Phone: 2(351)130-274039 [place] [address] 09-10-2024 08:20-0400 Diastolic blood pressure 75 mm[Hg] Dr. Rg Menchaca MD Work Phone: 1(176)928-104939 [place] [address] 09-10-2024 08:20-0400 Heart rate 78 /min Dr. Rg Menchaca MD Work Phone: 6(406)144-258915 [place] [address] 09-10-2024 08:20-0400 Respiratory rate 16 /min Dr. Rg Menchaca MD Work Phone: [facility] 09-10-2024 08:20-0400 SaO2% (BldA) [Mass fraction] 95 % Dr. Rg Menchaca MD Work Phone: 6(479)785-176639 [place] [address] 09-10-2024 08:20-0400 Systolic blood pressure 135 mm[Hg] Dr. Rg Menchaca MD Work Phone: 2(634)716-200539 [place] [address] 09-09-2024 12:17-0400 Body temperature 96 [degF] Dr. Rg Menchaca MD Work Phone: [facility] 09-09-2024 12:17-0400 Diastolic blood pressure 76 mm[Hg] Dr. Rg Menchaca MD Work Phone: [facility] 09-09-2024 12:17-0400 Heart rate 68 /min Dr. Rg Menchaca MD Work Phone: 6(582)529-705039 [place] [address] 09-09-2024 12:17-0400 Respiratory rate 16 /min Dr. Rg Menchaca MD Work Phone: 9(811)496-096939 [place] [address] 09-09-2024 12:17-0400 Systolic blood pressure 117 mm[Hg] Dr. Rg Menchaca MD Work Phone: 6(868)273-651239 [place] [address] 09-09-2024 08:09-0400 Body height 160.[address] Rg Menchaca MD Work Phone: 8(583)992-164439 [place] [address] 09-09-2024 08:09-0400 Body mass index (BMI) [Ratio] 24.7 kg/m2 Dr. Rg Menchaca MD Work Phone: 5(496)726-027639 [place] [address] 09-09-2024 08:09-0400 Body weight 63.[address] Rg Menchaca MD Work Phone: 0(508)846-664439 [place] [address] 09-09-2024 08:09-0400 SaO2% (BldA) [Mass fraction] 94 % Dr. Rg Menchaca MD Work Phone: 6(986)868-609739 [place] [address] 09-08-2024 08:33-0400 Body mass index (BMI) [Ratio] 24.7 kg/m2 Dr. Rg Menchaca MD Work Phone: 5(787)069-147939 [place] [address] 09-08-2024 08:33-0400 Body temperature 96.5 [degF] Dr. Rg Menchaca MD Work Phone: 4(697)718-491239 [place] [address] 09-08-2024 08:33-0400 Body weight 63.[address] Rg Menchaca MD Work Phone: 8(148)822-520939 [place] [address] 09-08-2024 08:33-0400 Diastolic blood pressure 75 mm[Hg] Dr. Rg Menchaca MD Work Phone: [facility] 09-08-2024 08:33-0400 Heart rate 80 /min Dr. Rg Menchaca MD Work Phone: 4(004)272-052339 [place] [address] 09-08-2024 08:33-0400 Respiratory rate 16 /min Dr. Rg Menchaca MD Work Phone: 6(582)897-719539 [place] [address] 09-08-2024 08:33-0400 SaO2% (BldA) [Mass fraction] 93 % Dr. Rg Menchaca MD Work Phone: 1(538)210-645239 [place] [address] 09-08-2024 08:33-0400 Systolic blood pressure 126 mm[Hg] Dr. Rg Menchaca MD Work Phone: 2(689)071-199639 [place] [address] 08-13-2024 10:15-0400 Body height 160.[address] Rg Menchaca MD Work Phone: 8(539)871-160039 [place] [address] 08-13-2024 10:15-0400 Body mass index (BMI) [Ratio] 24.9 kg/m2 Dr. Rg Menchaca MD Work Phone: 9(280)348-579139 [place] [address] 08-13-2024 10:15-0400 Body temperature 96.6 [degF] Dr. Rg Menchaca MD Work Phone: 5(733)474-954139 [place] [address] 08-13-2024 10:15-0400 Body weight 63.[address] Rg Menchaca MD Work Phone: 5(277)418-624239 [place] [address] 08-13-2024 10:15-0400 Diastolic blood pressure 72 mm[Hg] Dr. Rg Menchaca MD Work Phone: 8(588)462-311639 [place] [address] 08-13-2024 10:15-0400 Heart rate 73 /min Dr. Rg Menchaca MD Work Phone: 7(292)200-686439 [place] [address] 08-13-2024 10:15-0400 Respiratory rate 16 /min Dr. Rg Menchaca MD Work Phone: 8(748)229-913539 [place] [address] 08-13-2024 10:15-0400 SaO2% (BldA) [Mass fraction] 95 % Dr. Rg Menchaca MD Work Phone: 2(931)283-406093 [address] 08-13-2024 10:15-0400 Systolic blood pressure 121 mm[Hg] Dr. Rg Menchaca MD Work Phone: 9(279)078-651739 [place] [address] 08-12-2024 08:09-0400 Body height 160.[address] Rg Menchaca MD Work Phone: 8(232)126-846139 [place] [address] 08-12-2024 08:09-0400 Body mass index (BMI) [Ratio] 24.9 kg/m2 Dr. Rg Menchaca MD Work Phone: 5(286)978-994439 [place] [address] 08-12-2024 08:09-0400 Body temperature 96.8 [degF] Dr. Rg Menchaca MD Work Phone: 1(228)717-875539 [place] [address] 08-12-2024 08:09-0400 Body weight 63.[address] Rg Menchaca MD Work Phone: 7(549)593-354639 [place] [address] 08-12-2024 08:09-0400 Diastolic blood pressure 59 mm[Hg] Dr. Rg Menchaca MD Work Phone: 8(874)898-705339 [place] [address] 08-12-2024 08:09-0400 Heart rate 79 /min Dr. Rg Menchaca MD Work Phone: 9(237)642-059439 [place] [address] 08-12-2024 08:09-0400 Respiratory rate 16 /min Dr. Rg Menchaca MD Work Phone: 5(890)050-667039 [place] [address] 08-12-2024 08:09-0400 SaO2% (BldA) [Mass fraction] 95 % Dr. Rg Menchaca MD Work Phone: 1(742)276-437839 [place] [address] 08-12-2024 08:09-0400 Systolic blood pressure 104 mm[Hg] Dr. Rg Menchaca MD Work Phone: 7(988)829-369539 [place] [address] 08-11-2024 08:01-0400 Body height 160.[address] Rg Menchaca MD Work Phone: 3(157)106-635239 [place] [address] 08-11-2024 08:01-0400 Body mass index (BMI) [Ratio] 24.9 kg/m2 Dr. Rg Menchaca MD Work Phone: [facility] 08-11-2024 08:01-0400 Body temperature 96.8 [degF] Dr. Rg Menchaca MD Work Phone: [facility] 08-11-2024 08:01-0400 Body weight 63.[address] Rg Menchaca MD Work Phone: 5(338)944-284515 [place] [address] 08-11-2024 08:01-0400 Diastolic blood pressure 73 mm[Hg] Dr. Rg Menchaca MD Work Phone: 4(806)510-757115 [place] [address] 08-11-2024 08:01-0400 Heart rate 83 /min Dr. Rg Menchaca MD Work Phone: 7(641)698-367139 [place] [address] 08-11-2024 08:01-0400 Respiratory rate 16 /min Dr. Rg Menchaca MD Work Phone: 5(190)204-183839 [place] [address] 08-11-2024 08:01-0400 SaO2% (BldA) [Mass fraction] 94 % Dr. Rg Menchaca MD Work Phone: 5(453)474-153993 [address] 08-11-2024 08:01-0400 Systolic blood pressure 116 mm[Hg] Dr. Rg Menchaca MD Work Phone: 0(690)924-836239 [place] [address] 07-16-2024 08:39-0500 Body mass index (BMI) [Ratio] 24.3 kg/m2 Dr. Rg Menchaca MD Work Phone: 7(490)436-208815 [place] [address] 07-16-2024 08:39-0500 Body temperature 96.6 [degF] Dr. Rg Menchaca MD Work Phone: 8(509)885-173415 [place] [address] 07-16-2024 08:39-0500 Body weight 62.[address] Rg Menchaca MD Work Phone: 9(432)173-189093 [address] 07-16-2024 08:39-0500 Diastolic blood pressure 71 mm[Hg] Dr. Rg Menchaca MD Work Phone: 3(112)229-178193 [address] 07-16-2024 08:39-0500 Heart rate 80 /min Dr. Rg Menchaca MD Work Phone: [facility] 07-16-2024 08:39-0500 Respiratory rate 16 /min Dr. Rg Menchaca MD Work Phone: [facility] 07-16-2024 08:39-0500 SaO2% (BldA) [Mass fraction] 96 % Dr. Rg Menchaca MD Work Phone: 9(728)425-555615 [place] [address] 07-16-2024 08:39-0500 Systolic blood pressure 133 mm[Hg] Dr. Rg Menchaca MD Work Phone: 7(546)459-702639 [place] [address] 07-15-2024 13:02-0500 Body temperature 96.5 [degF] Dr. Rg Menchaca MD Work Phone: 7(935)041-121739 [place] [address] 07-15-2024 13:02-0500 Diastolic blood pressure 65 mm[Hg] Dr. Rg Menchaca MD Work Phone: 7(930)367-143639 [place] [address] 07-15-2024 13:02-0500 Heart rate 75 /min Dr. Rg Menchaca MD Work Phone: 1(284)761-576239 [place] [address] 07-15-2024 13:02-0500 Systolic blood pressure 108 mm[Hg] Dr. Rg Menchaca MD Work Phone: 0(542)582-252515 [place] [address] 07-15-2024 08:35-0500 Body mass index (BMI) [Ratio] 24.3 kg/m2 Dr. Rg Menchaca MD Work Phone: 3(516)919-151539 [place] [address] 07-15-2024 08:35-0500 Body weight 62.[address] Rg Menchaca MD Work Phone: 9(771)568-505715 [place] [address] 07-15-2024 08:35-0500 Respiratory rate 16 /min Dr. Rg Menchaca MD Work Phone: 6(857)648-718693 [address] 07-15-2024 08:35-0500 SaO2% (BldA) [Mass fraction] 95 % Dr. Rg Menchaca MD Work Phone: 8(744)293-183915 [place] [address] 07-14-2024 08:22-0500 Body mass index (BMI) [Ratio] 24.3 kg/m2 Dr. Rg Menchaca MD Work Phone: [facility] 07-14-2024 08:22-0500 Body temperature 97.1 [degF] Dr. Rg Menchaca MD Work Phone: [facility] 07-14-2024 08:22-0500 Body weight 62.[address] Rg Menchaca MD Work Phone: 3(737)737-981893 [address] 07-14-2024 08:22-0500 Diastolic blood pressure 70 mm[Hg] Dr. Rg Menchaca MD Work Phone: 6(466)735-319993 [address] 07-14-2024 08:22-0500 Heart rate 83 /min Dr. Rg Menchaca MD Work Phone: 8(286)955-729939 [place] [address] 07-14-2024 08:22-0500 Respiratory rate 16 /min Dr. Rg Menchaca MD Work Phone: 4(913)922-701839 [place] [address] 07-14-2024 08:22-0500 SaO2% (BldA) [Mass fraction] 95 % Dr. Rg Menchaca MD Work Phone: 0(941)043-462993 [address] 07-14-2024 08:22-0500 Systolic blood pressure 102 mm[Hg] Dr. Rg Menchaca MD Work Phone: 1(940)825-609839 [place] [address] 06-18-2024 08:30-0500 Body temperature 96.9 [degF] Dr. Rg Menchaca MD Work Phone: 8(472)629-431693 [address] 06-18-2024 08:30-0500 Diastolic blood pressure 61 mm[Hg] Dr. Rg Menchaca MD Work Phone: 4(705)740-127893 [address] 06-18-2024 08:30-0500 Heart rate 71 /min Dr. Rg Menchaca MD Work Phone: 8(834)392-514239 [place] [address] 06-18-2024 08:30-0500 Respiratory rate 16 /min Dr. Rg Menchaca MD Work Phone: 4(150)789-479293 [address] 06-18-2024 08:30-0500 SaO2% (BldA) [Mass fraction] 95 % Dr. Rg Menchaca MD Work Phone: 2(083)960-376893 [address] 06-18-2024 08:30-0500 Systolic blood pressure 114 mm[Hg] Dr. Rg Menchaca MD Work Phone: 6(177)597-183839 [place] [address] 06-17-2024 08:43-0500 Body mass index (BMI) [Ratio] 24.3 kg/m2 Dr. Rg Menchaca MD Work Phone: 0(765)329-196639 [place] [address] 06-17-2024 08:43-0500 Body temperature 96.7 [degF] Dr. Rg Menchaca MD Work Phone: 1(286)454-821439 [place] [address] 06-17-2024 08:43-0500 Body weight 62.[address] Rg Menchaca MD Work Phone: 3(892)999-076239 [place] [address] 06-17-2024 08:43-0500 Diastolic blood pressure 62 mm[Hg] Dr. Rg Menchaca MD Work Phone: 6(584)367-572739 [place] [address] 06-17-2024 08:43-0500 Heart rate 78 /min Dr. Rg Menchaca MD Work Phone: 1(859)289-802039 [place] [address] 06-17-2024 08:43-0500 Respiratory rate 16 /min Dr. Rg Menchaca MD Work Phone: 7(262)676-115039 [place] [address] 06-17-2024 08:43-0500 SaO2% (BldA) [Mass fraction] 92 % Dr. Rg Menchaca MD Work Phone: 7(472)178-471239 [place] [address] 06-17-2024 08:43-0500 Systolic blood pressure 108 mm[Hg] Dr. Rg Menchaca MD Work Phone: 1(363)707-818839 [place] [address] 06-16-2024 08:20-0500 Body mass index (BMI) [Ratio] 23.4 kg/m2 Dr. Rg Menchaca MD Work Phone: 1(697)393-989139 [place] [address] 06-16-2024 08:20-0500 Body temperature 97.5 [degF] Dr. Rg Menchaca MD Work Phone: 2(669)477-103239 [place] [address] 06-16-2024 08:20-0500 Body weight [address] Rg Menchaca MD Work Phone: 5(745)931-176139 [place] [address] 06-16-2024 08:20-0500 Diastolic blood pressure 68 mm[Hg] Dr. Rg Menchaca MD Work Phone: 3(782)541-499039 [place] [address] 06-16-2024 08:20-0500 Heart rate 82 /min Dr. Rg Menchaca MD Work Phone: 0(830)105-187039 [place] [address] 06-16-2024 08:20-0500 Respiratory rate 16 /min Dr. Rg Menchaca MD Work Phone: 2(698)575-415939 [place] [address] 06-16-2024 08:20-0500 SaO2% (BldA) [Mass fraction] 95 % Dr. Rg Menchaca MD Work Phone: 5(169)961-367339 [place] [address] 06-16-2024 08:20-0500 Systolic blood pressure 110 mm[Hg] Dr. Rg Menchaca MD Work Phone: 6(761)592-210739 [place] [address] 05-22-2024 09:00-0500 Body temperature 97.2 [degF] Dr. Rg Menchaca MD Work Phone: 8(356)831-479239 [place] [address] 05-22-2024 09:00-0500 Diastolic blood pressure 84 mm[Hg] Dr. Rg Menchaca MD Work Phone: 5(424)294-465739 [place] [address] 05-22-2024 09:00-0500 Heart rate 65 /min Dr. Rg Menchaca MD Work Phone: 2(171)458-893639 [place] [address] 05-22-2024 09:00-0500 Respiratory rate 16 /min Dr. Rg Menchaca MD Work Phone: 6(567)817-046239 [place] [address] 05-22-2024 09:00-0500 SaO2% (BldA) [Mass fraction] 96 % Dr. Rg Menchaca MD Work Phone: 0(806)146-218439 [place] [address] 05-22-2024 09:00-0500 Systolic blood pressure 112 mm[Hg] Dr. Rg Menchaca MD Work Phone: 7(593)519-149939 [place] [address] 05-21-2024 08:39-0500 Body temperature 96.9 [degF] Dr. Rg Menchaca MD Work Phone: 8(217)924-156839 [place] [address] 05-21-2024 08:39-0500 Diastolic blood pressure 60 mm[Hg] Dr. Rg Menchaca MD Work Phone: [facility] 05-21-2024 08:39-0500 Heart rate 74 /min Dr. Rg Menchaca MD Work Phone: [facility] 05-21-2024 08:39-0500 Respiratory rate 16 /min Dr. Rg Menchaca MD Work Phone: 7(550)508-818115 [place] [address] 05-21-2024 08:39-0500 SaO2% (BldA) [Mass fraction] 96 % Dr. Rg Menchaca MD Work Phone: 7(351)570-637315 [place] [address] 05-21-2024 08:39-0500 Systolic blood pressure 105 mm[Hg] Dr. gR Menchaca MD Work Phone: 8(203)036-008493 [address] 05-19-2024 08:26-0500 Body mass index (BMI) [Ratio] 25 kg/m2 Dr. Rg Menchaca MD Work Phone: 6(064)963-210993 [address] 05-19-2024 08:26-0500 Body temperature 98.6 [degF] Dr. Rg Menchaca MD Work Phone: 2(089)724-428493 [address] 05-19-2024 08:26-0500 Body weight 63.[address] Rg Menchaca MD Work Phone: [facility] 05-19-2024 08:26-0500 Diastolic blood pressure 79 mm[Hg] Dr. Rg Menchaca MD Work Phone: [facility] 05-19-2024 08:26-0500 Heart rate 88 /min Dr. Rg Menchaca MD Work Phone: [facility] 05-19-2024 08:26-0500 Respiratory rate 16 /min Dr. Rg Menchaca MD Work Phone: [facility] 05-19-2024 08:26-0500 SaO2% (BldA) [Mass fraction] 96 % Dr. Rg Menchaca MD Work Phone: [facility] 05-19-2024 08:26-0500 Systolic blood pressure 114 mm[Hg] Dr. Rg Menchaca MD Work Phone: [facility] 04-23-2024 08:22-0500 Body mass index (BMI) [Ratio] 24.5 kg/m2 Dr. Rg Menchaca MD Work Phone: [facility] 04-23-2024 08:22-0500 Body temperature 97 [degF] Dr. Rg Menchaca MD Work Phone: 4(143)196-444415 [place] [address] 04-23-2024 08:22-0500 Body weight 62.[address] Rg Menchaca MD Work Phone: 4(116)335-519893 [address] 04-23-2024 08:22-0500 Diastolic blood pressure 71 mm[Hg] Dr. Rg Menchaca MD Work Phone: 0(814)613-047015 [place] [address] 04-23-2024 08:22-0500 Heart rate 76 /min Dr. Rg Menchaca MD Work Phone: 4(881)491-758593 [address] 04-23-2024 08:22-0500 Respiratory rate 16 /min Dr. Rg Menchaca MD Work Phone: 0(843)384-896293 [address] 04-23-2024 08:22-0500 SaO2% (BldA) [Mass fraction] 95 % Dr. Rg Menchaca MD Work Phone: [facility] 04-23-2024 08:22-0500 Systolic blood pressure 117 mm[Hg] Dr. Rg Menchaca MD Work Phone: 2(079)571-545815 [place] [address] 04-22-2024 08:27-0500 Body mass index (BMI) [Ratio] 24.5 kg/m2 Dr. Rg Menchaca MD Work Phone: 5(210)900-991015 [place] [address] 04-22-2024 08:27-0500 Body temperature 97.2 [degF] Dr. Rg Menchaca MD Work Phone: [facility] 04-22-2024 08:27-0500 Body weight 62.[address] gR Menchaca MD Work Phone: [facility] 04-22-2024 08:27-0500 Diastolic blood pressure 68 mm[Hg] Dr. Rg Menchaca MD Work Phone: [facility] 04-22-2024 08:27-0500 Heart rate 72 /min Dr. Rg Menchaca MD Work Phone: [facility] 04-22-2024 08:27-0500 Respiratory rate 16 /min Dr. Rg Menchaca MD Work Phone: 9(231)743-596739 [place] [address] 04-22-2024 08:27-0500 SaO2% (BldA) [Mass fraction] 97 % Dr. Rg Menchaca MD Work Phone: 9(632)603-879239 [place] [address] 04-22-2024 08:27-0500 Systolic blood pressure 115 mm[Hg] Dr. Rg Menchaca MD Work Phone: 7(950)129-340339 [place] [address] 04-21-2024 08:25-0500 Body mass index (BMI) [Ratio] 24.4 kg/m2 Dr. Rg Menchaca MD Work Phone: 9(462)375-300239 [place] [address] 04-21-2024 08:25-0500 Body temperature 96.5 [degF] Dr. Rg Menchaca MD Work Phone: 4(239)716-155139 [place] [address] 04-21-2024 08:25-0500 Body weight 62.[address] Rg Menchaca MD Work Phone: 2(194)684-082439 [place] [address] 04-21-2024 08:25-0500 Diastolic blood pressure 57 mm[Hg] Dr. Rg Menchaca MD Work Phone: 6(795)980-132693 [address] 04-21-2024 08:25-0500 Heart rate 77 /min Dr. Rg Menchaca MD Work Phone: 7(033)895-858615 [place] [address] 04-21-2024 08:25-0500 Respiratory rate 16 /min Dr. Rg Menchaca MD Work Phone: 1(031)128-545839 [place] [address] 04-21-2024 08:25-0500 SaO2% (BldA) [Mass fraction] 94 % Dr. Rg Menchaca MD Work Phone: 7(765)288-497315 [place] [address] 04-21-2024 08:25-0500 Systolic blood pressure 104 mm[Hg] Dr. Rg Menchaca MD Work Phone: [facility] 02-05-2024 11:19-0400 Diastolic blood pressure 68 mm[Hg] Windy Yuen MD Work Phone: [facility] 02-05-2024 11:19-0400 Heart rate 81 /min Windy Yuen MD Work Phone: [facility] 02-05-2024 11:19-0400 SaO2% (BldA) [Mass fraction] 94 % Windy Yuen MD Work Phone: [facility] 02-05-2024 11:19-0400 Systolic blood pressure 116 mm[Hg] Windy Yuen MD Work Phone: [facility] 09-13-2023 08:36-0400 Body height 160.02 cm [facility] 09-13-2023 08:36-0400 Body temperature 98.1 [degF] [facility] 09-13-2023 08:36-0400 Diastolic blood pressure 68 mm[Hg] [facility] 09-13-2023 08:36-0400 Heart rate 77 /min [facility] 09-13-2023 08:36-0400 Respiratory rate 16 /min [facility] 09-13-2023 08:36-0400 SaO2% (BldA) [Mass fraction] 94 % [facility] 09-13-2023 08:36-0400 Systolic blood pressure 115 mm[Hg] [facility] 09-12-2023 09:03-0400 Body height 160.02 cm [facility] 09-12-2023 09:03-0400 Body mass index (BMI) [Ratio] 23.4 kg/m2 [facility] 09-12-2023 09:03-0400 Body temperature 98.5 [degF] [facility] 09-12-2023 09:03-0400 Body weight 60 kg [facility] 09-12-2023 09:03-0400 Diastolic blood pressure 75 mm[Hg] [facility] 09-12-2023 09:03-0400 Heart rate 70 /min [facility] 09-12-2023 09:03-0400 Respiratory rate 16 /min [facility] 09-12-2023 09:03-0400 SaO2% (BldA) [Mass fraction] 95 % [facility] 09-12-2023 09:03-0400 Systolic blood pressure 130 mm[Hg] [facility] 09-11-2023 08:32-0400 Body height 160.02 cm [facility] 09-11-2023 08:32-0400 Body temperature 98.3 [degF] [facility] 09-11-2023 08:32-0400 Diastolic blood pressure 64 mm[Hg] [facility] 09-11-2023 08:32-0400 Heart rate 77 /min [facility] 09-11-2023 08:32-0400 Respiratory rate 16 /min [facility] 09-11-2023 08:32-0400 SaO2% (BldA) [Mass fraction] 95 % [facility] 09-11-2023 08:32-0400 Systolic blood pressure 109 mm[Hg] [facility] 09-10-2023 08:39-0400 Body height 160.02 cm [facility] 09-10-2023 08:39-0400 Body mass index (BMI) [Ratio] 23.7 kg/m2 [facility] 09-10-2023 08:39-0400 Body temperature 98 [degF] [facility] 09-10-2023 08:39-0400 Body weight 60.78 kg [facility] 09-10-2023 08:39-0400 Diastolic blood pressure 67 mm[Hg] [facility] 09-10-2023 08:39-0400 Heart rate 80 /min [facility] 09-10-2023 08:39-0400 Respiratory rate 16 /min [facility] 09-10-2023 08:39-0400 SaO2% (BldA) [Mass fraction] 96 % [facility] 09-10-2023 08:39-0400 Systolic blood pressure 115 mm[Hg] [facility] 09-09-2023 13:39-0400 Body temperature 97.1 [degF] [facility] 09-09-2023 13:39-0400 Diastolic blood pressure 65 mm[Hg] [facility] 09-09-2023 13:39-0400 Heart rate 72 /min [facility] 09-09-2023 13:39-0400 Respiratory rate 16 /min [facility] 09-09-2023 13:39-0400 SaO2% (BldA) [Mass fraction] 97 % [facility] 09-09-2023 13:39-0400 Systolic blood pressure 110 mm[Hg] [facility] 09-09-2023 08:39-0400 Body height 160.02 cm [facility] 07-31-2023 16:35-0400 Body height 160.7 cm Windy Yuen MD Work Phone: [facility] 07-31-2023 16:35-0400 Body weight 59.88 kg Windy Yuen MD Work Phone: [facility] 07-31-2023 16:35-0400 Diastolic blood pressure 50 mm[Hg] Windy Yuen MD Work Phone: [facility] 07-31-2023 16:35-0400 Heart rate 72 /min Windy Yuen MD Work Phone: [facility] 07-31-2023 16:35-0400 SaO2% (BldA) [Mass fraction] 96 % Windy Yuen MD Work Phone: [facility] 07-31-2023 16:35-0400 Systolic blood pressure 91 mm[Hg] Windy Yuen MD Work Phone: [facility] 04-29-2022 04:53-0500 Diastolic blood pressure 82 mm[Hg] [facility] Work Phone: 04-29-2022 04:53-0500 Heart rate 70 /min [facility] Work Phone: 04-29-2022 04:53-0500 Respiratory rate 16 /min [facility] Work Phone: 04-29-2022 04:53-0500 SaO2% (BldA) [Mass fraction] 98 % [facility] Work Phone: 04-29-2022 04:53-0500 Systolic blood pressure 124 mm[Hg] [facility] Work Phone: 04-28-2022 21:57-0500 Body height 160.02 cm [facility] Work Phone: 04-28-2022 21:57-0500 Body mass index (BMI) [Ratio] 24.1 kg/m2 [facility] Work Phone: 04-28-2022 21:57-0500 Body temperature 96.2 [degF] [facility] Work Phone: 04-28-2022 21:57-0500 Body weight 61.87 kg [facility] Work Phone: 03-01-2022 13:29-0400 Diastolic blood pressure 63 mm[Hg] [facility] Work Phone: 03-01-2022 13:29-0400 Heart rate 77 /min [facility] Work Phone: 03-01-2022 13:29-0400 Respiratory rate 18 /min [facility] Work Phone: 03-01-2022 13:29-0400 SaO2% (BldA) [Mass fraction] 93 % [facility] Work Phone: 03-01-2022 13:29-0400 Systolic blood pressure 102 mm[Hg] [facility] Work Phone: 03-01-2022 10:29-0400 Body temperature 97.2 [degF] [facility] Work Phone: 03-01-2022 10:25-0400 Body mass index (BMI) [Ratio] 21.9 kg/m2 [facility] Work Phone: 03-01-2022 10:25-0400 Body weight 56.1 kg [facility] Work Phone: 11-15-2021 11:23-0400 Body weight 55.79 kg La Nena Lala MD Work Phone: [facility] 11-15-2021 11:23-0400 Diastolic blood pressure 67 mm[Hg] La Nena Lala MD Work Phone: [facility] 11-15-2021 11:23-0400 Heart rate 85 /min La Nena Lala MD Work Phone: [facility] 11-15-2021 11:23-0400 Respiratory rate 16 /min La Nena Lala MD Work Phone: [facility] 11-15-2021 11:23-0400 SaO2% (BldA) [Mass fraction] 99 % La Nena Lala MD Work Phone: [facility] 11-15-2021 11:23-0400 Systolic blood pressure 105 mm[Hg] La Nena Lala MD Work Phone: [facility] 08-30-2021 20:07-0400 Diastolic blood pressure 74 mm[Hg] Dr. Rg Menchaca Work Phone: [facility] Work Phone: 08-30-2021 20:07-0400 Heart rate 69 /min Dr. Rg Menchaca Work Phone: [facility] Work Phone: 08-30-2021 20:07-0400 Respiratory rate 18 /min Dr. Rg Menchaca Work Phone: [facility] Work Phone: 08-30-2021 20:07-0400 SaO2% (BldA) [Mass fraction] 96 % Dr. Rg Menchaca Work Phone: [facility] Work Phone: 08-30-2021 20:07-0400 Systolic blood pressure 94 mm[Hg] Dr. Rg Menchaca Work Phone: [facility] Work Phone: 08-30-2021 18:05-0400 Body height 154.[address] Rg Menchaca Work Phone: [facility] Work Phone: 08-30-2021 18:05-0400 Body mass index (BMI) [Ratio] 25.9 kg/m2 Dr. Rg Menchaca Work Phone: [facility] Work Phone: 08-30-2021 18:05-0400 Body temperature 96.8 [degF] Dr. Rg Menchaca Work Phone: [facility] Work Phone: 08-30-2021 18:05-0400 Body weight 62.[address] Rg Menchaca Work Phone: [facility] Work Phone: 08-19-2021 14:30-0400 Body temperature 98.9 [degF] Dr. Rg Menchaca Work Phone: [facility] Work Phone: 08-19-2021 14:30-0400 Diastolic blood pressure 68 mm[Hg] Dr. Rg Menchaca Work Phone: [facility] Work Phone: 08-19-2021 14:30-0400 Heart rate 88 /min Dr. Rg Menchaca Work Phone: [facility] Work Phone: 08-19-2021 14:30-0400 Respiratory rate 18 /min Dr. Rg Menchaca Work Phone: [facility] Work Phone: 08-19-2021 14:30-0400 SaO2% (BldA) [Mass fraction] 96 % Dr. Rg Menchaca Work Phone: [facility] Work Phone: 08-19-2021 14:30-0400 Systolic blood pressure 104 mm[Hg] Dr. Rg Menchaca Work Phone: [facility] Work Phone: 08-19-2021 12:54-0400 Body height 154.[address] Rg Menchaca Work Phone: [facility] Work Phone: 08-19-2021 12:54-0400 Body weight 53.[address] Rg Menchaca Work Phone: [facility] Work Phone: 08-18-2021 21:27-0400 Body mass index (BMI) [Ratio] 22.2 kg/m2 Dr. Rg Menchaca Work Phone: [facility] Work Phone: 08-18-2021 20:57-0400 Body temperature 98 [degF] [facility] Work Phone: 08-18-2021 20:57-0400 Diastolic blood pressure 62 mm[Hg] [facility] Work Phone: 08-18-2021 20:57-0400 Heart rate 74 /min [facility] Work Phone: 08-18-2021 20:57-0400 Respiratory rate 16 /min [facility] Work Phone: 08-18-2021 20:57-0400 SaO2% (BldA) [Mass fraction] 98 % [facility] Work Phone: 08-18-2021 20:57-0400 Systolic blood pressure 106 mm[Hg] [facility] Work Phone: 08-18-2021 17:31-0400 Body height 159.99 cm [facility] Work Phone: 08-18-2021 17:31-0400 Body mass index (BMI) [Ratio] 21.4 kg/m2 [facility] Work Phone: 08-18-2021 17:31-3405 Body weight 54.9 kg [facility] Work Phone: Encounters Encounter Date Encounter Type Care Provider Facility Start: 04-01-2025 ambulatory Rg Menchaca Facility:[facility] Start: 03-31-2025 ambulatory Windy Abeldelfina Alicia y:[facility] Start: 03-30-2025 End: 03-30-2025 ambulatory Windy Yuen Facility:[facility] Start: 03-04-2025 End: 03-04-[address] Windy Yuen MD [facility] Work Phone: Start: 03-04-2025 End: 03-04-[address] Rg Menchaca MD Work Phone: [facility] Start: 03-03-2025 End: 03-03-[address] Windy Yuen MD [facility] Work Phone: Start: 03-03-2025 End: 03-03-[address] Rg Menchaca MD Work Phone: [facility] Start: 03-02-2025 End: 03-02-[address] Windy Yuen MD [facility] Work Phone: Start: 03-02-2025 End: 03-02-[address] Rg Menchaca MD Work Phone: [facility] Start: 02-04-2025 End: 02-04-[address] Windy Yuen MD [facility] Work Phone: Start: 02-04-2025 End: 02-04-[address] Rg Menchaca MD Work Phone: [facility] Start: 02-03-2025 End: 02-03-[address] Windy Yuen MD [facility] Work Phone: Start: 02-03-2025 End: 02-03-[address] Rg Menchaca MD Work Phone: [facility] Start: 02-02-2025 End: 02-02-2025 Patient encounter procedure [...] Phone: Start: 12-02-2024 End: 12-02-[address] gR Menchaca MD Work Phone: [facility] Start: 12-01-2024 End: 12-01-[address] Windy Yuen MD [facility] Work Phone: Start: 12-01-2024 End: 12-01-[address] Rg Menchaca MD Work Phone: [facility] Start: 11-11-2024 End: 11-11-2024 ambulatory WINDY YUEN Facility:[facility] Start: 11-11-2024 End: 11-11-2024 Patient encounter procedure Windy Yuen MD Work Phone: Neurology Comment on above: Stiff person syndrom e Start: 11-05-2024 End: 11-05-[address] Windy Yuen MD [facility] Work Phone: Start: 11-05-2024 End: 11-05-[address] Rg Menchaca MD Work Phone: [facility] Work Phone: Start: 11-04-2024 End: 11-04-[address] Windy Yuen MD -Medical Out Work Phone: Start: 11-04-2024 End: 11-04-[address] Rg Menchaca MD Work Phone: [facility] Work Phone: Start: 11-03-2024 End: 11-03-[address] Windy Yuen MD -Medical Out Work Phone: Start: 11-03-2024 End: 11-03-[address] Rg Menchaca MD Work Phone: [facility] Work Phone: Start: 10-08-2024 End: 10-08-[address] Windy Yuen MD -Medical Out Work Phone: Start: 10-08-2024 End: 10-08-2024 ambulatory Windy Yuen Facility:[facility] Start: 10-07-2024 End: 10-07-[address] Windy Yuen MD -Medical Out Work Phone: Start: 10-07-2024 End: 10-07-[address] Rg Menchaca MD Work Phone: [facility] Work Phone: Start: 10-06-2024 End: 10-06-[address] Windy Yuen MD -Medical Out Work Phone: Start: 10-06-2024 End: 10-06-[address] Rg Menchaca MD Work Phone: [facility] Work Phone: Start: 09-10-2024 End: 09-10-[address] Windy Yuen MD -Medical Out Work Phone: Start: 09-10-2024 End: 09-10-[address] Rg Menchaca MD Work Phone: [facility] Work Phone: Start: 09-09-2024 End: 09-09-[address] Windy Yuen MD -Medical Out Work Phone: Start: 09-09-2024 End: 09-09-[address] Rg Menchaca MD Work Phone: [facility] Work Phone: Start: 09-08-2024 End: 09-08-[address] Windy Yuen MD -Medical Out Work Phone: Start: 09-08-2024 End: 09-08-2024 ambulatory Windy Yuen Facility:[facility] Start: 08-13-2024 End: 08-13-[address] Windy Yuen MD -Medical Out Work Phone: Start: 08-13-2024 End: 08-13-[address] Rg Menchaca MD Work Phone: [facility] Work Phone: Start: 08-12-2024 End: 08-12-[address] Windy Yuen MD -Medical Out Work Phone: Start: 08-12-2024 End: 08-12-[address] Rg Menchaca MD Work Phone: [facility] Work Phone: Start: 08-11-2024 End: 08-11-[address] Windy Yuen MD -Medical Out Work Phone: Start: 08-11-2024 End: 08-11-[address] Rg Menchaca MD Work Phone: [facility] Work Phone: Start: 07-16-2024 End: 07-16-[address] Windy Yuen MD -Medical Out Work Phone: Start: 07-16-2024 End: 07-16-2024 ambulatory [facility] Facility:[facility] Start: 07-15-2024 End: 07-15-[address] Windy Yuen MD -Medical Out Work Phone: Start: 07-15-2024 End: 07-15-2024 ambulatory [facility] Facility:[facility] Start: 07-14-2024 End: 07-14-[address] Windy Yuen MD -Medical Out Work Phone: Start: 07-14-2024 End: 07-14-2024 ambulatory [facility] Facility:[facility] Start: 06-18-2024 End: 06-18-[address] Windy Yuen MD -Medical Out Work Phone: Start: 06-18-2024 End: 06-18-2024 ambulatory [facility] Facility:[facility] Start: 06-17-2024 End: 06-17-[address] Windy Yuen MD -Medical Out Work Phone: Start: 06-17-2024 End: 06-17-2024 ambulatory [facility] Start: 06-16-2024 End: 06-16-[address] Windy Yuen MD -Medical Out Work Phone: Start: 06-16-2024 End: 06-16-2024 [facility] Start: 05-22-2024 End: 05-22-[address] Windy Yuen MD -Medical Out Work Phone: Start: 05-22-2024 End: 05-22-2024 ambulatory [facility] Start: 05-21-2024 End: 05-21-[address] Windy Yuen MD -Medical Out Work Phone: Start: 05-21-2024 End: 05-21-2024 [facility] Start: 05-19-2024 End: 05-19-[address] Windy Yuen MD -Medical Out Work Phone: Start: 05-19-2024 End: 05-19-2024 [facility] Start: 04-23-2024 End: 04-23-[address] Windy Yuen MD -Medical Out Work Phone: Start: 04-23-2024 End: 04-23-2024 ambulatory [facility] Start: 04-22-2024 End: 04-22-[address] Windy Yuen MD -Medical Out Work Phone: Start: 04-22-2024 End: 04-22-2024 [facility] Start: 04-21-2024 End: 04-21-[address] Windy Yuen MD -Medical Out Work Phone: Start: 04-21-2024 End: 04-21-2024 ambulatory Windy Yuen Facility:[facility] Start: 02-06-2024 End: 02-06-2024 Telephone encounter Windy Yuen MD Work Phone: Neurology Comment on above: Orders (IVIG) Start: 02-05-2024 End: 02-05-2024 ambulatory WINDY YUEN Facility:[facility] Start: 02-05-2024 End: 02-05-2024 Patient encounter procedure Windy Yuen MD Work Phone: Neurology Comment on above: Stiff person syndrom e Start: 11-24-2023 Telephone encounter Windy Yuen MD Work Phone: Neurology Comment on above: Appointment (Update faxed to [facility] for appointment 02/05/24) Start: 11-14-2023 Telephone encounter Windy Yuen MD Work Phone: Neurology Start: 10-29-2023 Telephone encounter Windy Yuen MD Work Phone: Neurology Comment on above: Appointment (Appoint ment Update Faxed to [facility] for 12/17/23) Start: 10-15-2023 Telephone encounter Windy Yuen MD Work Phone: Neurology Comment on above: Patient Update Start: 09-25-2023 Telephone encounter Windy Yuen MD Work Phone: Neurology Comment on above: Appointment Start: 09-18-2023 Telephone encounter Windy Yuen MD Work Phone: Neurology Comment on above: Medication Question Start: 09-13-2023 End: 09-13-2023 ambulatory [facility] Work Phone: Start: 09-13-2023 End: 09-13-2023 Patient encounter procedure [facility] Work Phone: Start: 09-12-2023 End: 09-12-2023 ambulatory [facility] Work Phone: Start: 09-12-2023 End: 09-12-2023 Patient encounter procedure [facility] Work Phone: Start: 09-11-2023 End: 09-11-2023 ambulatory [facility] Work Phone: Start: 09-11-2023 End: 09-11-2023 Patient encounter procedure [facility] Work Phone: Start: 09-10-2023 End: 09-10-2023 ambulatory [facility] Work Phone: Start: 09-10-2023 End: 09-10-2023 Patient encounter procedure [facility] Work Phone: Start: 09-09-2023 End: 09-09-2023 ambulatory [facility] Work Phone: Start: 09-09-2023 End: 09-09-2023 Patient encounter procedure [facility] Work Phone: Start: 08-13-2023 Telephone encounter Windy Yuen MD Work Phone: [facility] Start: 07-31-2023 End: 07-31-2023 Patient encounter procedure [...] patient La Nena Lala MD Work Phone: [facility] [place] Start: 05-31-2022 Telephone encounter La Nena Keen i, MD Work Phone: Endocrinology Comment on above: Appointment (Resched uladia ) Start: 04-28-2022 End: 04-29-2022 [facility] Start: 04-18-2022 ambulatory UNKNOWN PROVIDER Facili ty:[facility] Start: 04-18-2022 End: 04-18-2022 Patient encounter procedure Maryan Loving DPM Work Phone: Podiatry Comment on above: Cavovarus deformity of foot, acquired, right (Primary Dx); Other osteoporosis without current pathological fracture; Hammertoe, bilateral Start: 04-18-2022 End: 04-18-2022 Subsequent hospital visit by physician [facility] Work Phone: Radiology Comment on above: Pain [R52] Start: 03-08-2022 ambulatory Facility:[facility] Start: 03-01-2022 End: 03-01-2022 Emergency department patient visit [facility] Start: 11-15-2021 End: 11-16-2021 ambulatory UNKNOWN PROVIDER Facility:[facility] Start: 11-15-2021 End: 11-15-2021 Patient encounter procedure La Nena Lala MD Work Phone: Endocrinology Comment on above: Acquired hypothyroid ism (Primary Dx); Poorly controlled type 1 diabetes mellitus (HCC) Start: 08-30-2021 End: 08-30-2021 Emergency department patient visit Dr. Rg Menchaca Work Phone: [facility] Start: 08-19-2021 Non-patient / Non-visit Dr. Eron Menchaca Work Phone: [facility] Start: 08-18-2021 End: 08-19-2021 [facility] Date Procedure Procedure Detail Performing Clinician Start: 04-18-2022 Radex foot complete minimum 3 views Maryansantana Loving DPM Work Phone: Start: 11-15-2021 Hemoglobin A1c/Hemoglobin.total in Blood La Nena Lala MD Work Phone: SARS-CoV-2 & FLU Ant igen (Rapid) Plan of Treatment Date Care Activity Detail Author Start: 05-19-2025 End: 05-19-2025 Patient encounter procedure 05/19/2025 11:30 AM EST Office Visit [facility] [address] [place] [address] Windy Yuen MD [address] [facility] [address] [place] [address] Neurology Start: 03-04-2025 Iv infusion therapy prophylaxis/dx ea hour THER/PROPH/DIAG IV INF [facility] Start: 03-04-2025 Vedolizumab therapy THER/PROPH /DIAG IV INF [facility] Start: 02-04-2025 Intravenous infusion THER/PROP H/DIAG IV INF [facility] Start: 02-04-2025 Iv infusion therapy prophylaxis/dx ea hour THER/PROPH/DIAG IV INF [facility] Start: 02-04-2025 Therapeutic injectio n iv push each new drug TX/PRO/DX INJ NEW DRUG [facility] Start: 01-18-2025 Influenza vaccination Influenz a Vaccine (Season Ended) [facility] Start: 01-07-2025 Intravenous infusion THER/PROP H/DIAG IV INF [facility] Start: 01-07-2025 Iv infusion therapy prophylaxis/dx ea hour THER/PROPH/DIAG IV INF [facility] Start: 01-07-2025 Iv infusion therapy/prophylaxis /dx 1st to 1 hr THER/PROPH/DIAG IV INF [facility] Start: 01-07-2025 Therapeutic injectio n iv push each new drug TX/PRO/DX INJ NEW DRUG [facility] Start: 12-03-2024 Iv infusion therapy prophylaxis/dx ea hour THER/PROPH/DIAG IV INF [facility] Start: 12-03-2024 Iv infusion therapy/prophylaxis /dx 1st to 1 hr THER/PROPH/DIAG IV INF [facility] Start: 12-03-2024 Therapeutic injectio n iv push each new drug TX/PRO/DX INJ NEW DRUG [facility] Start: 11-04-2024 Iv infusion therapy prophylaxis/dx ea hour THER/PROPH/DIAG IV INF [facility] Start: 11-04-2024 Iv infusion therapy/prophylaxis /dx 1st to 1 hr THER/PROPH/DIAG IV INF [facility] Start: 11-04-2024 Therapeutic injectio n iv push each new drug TX/PRO/DX INJ NEW DRUG [facility] Start: 10-07-2024 Iv infusion therapy prophylaxis/dx ea hour THER/PROPH/DIAG IV INF [facility] Start: 10-07-2024 Iv infusion therapy/prophylaxis /dx 1st to 1 hr THER/PROPH/DIAG IV INF [facility] Start: 10-07-2024 Therapeutic injectio n iv push each new drug TX/PRO/DX INJ NEW DRUG [facility] Start: 09-10-2024 Iv infusion therapy prophylaxis/dx ea hour THER/PROPH/DIAG IV INF [facility] Start: 09-10-2024 Iv infusion therapy/prophylaxis /dx 1st to 1 hr THER/PROPH/DIAG IV INF [facility] Start: 09-10-2024 Therapeutic injectio n iv push each new drug TX/PRO/DX INJ NEW DRUG [facility] Start: 08-11-2024 Iv infusion therapy prophylaxis/dx ea hour THER/PROPH/DIAG IV INF [facility] Start: 08-11-2024 Iv infusion therapy/prophylaxis /dx 1st to 1 hr THER/PROPH/DIAG IV INF [facility] Start: 08-11-2024 Therapeutic injectio n iv push each new drug TX/PRO/DX INJ NEW DRUG [facility] Start: 08-11-2024 End: 08-11-2024 Patient encounter procedure 08/11/2024 12:00 PM EDT Office Visit Neurology [address] [place] [address] Windy Yuen MD [address] [place] [address] 6 mo Neurology Comment on above: 6 mo Start: 07-16-2024 Iv infusion therapy prophylaxis/dx ea hour THER/PROPH/DIAG IV INF [facility] Start: 07-16-2024 Iv infusion therapy/prophylaxis /dx 1st to 1 hr THER/PROPH/DIAG IV INF [facility] Start: 07-16-2024 Therapeutic injectio n iv push each new drug TX/PRO/DX INJ NEW DRUG [facility] Start: 05-20-2024 Advance Directive Discussion Advance Directive Discussion [facility] Start: 05-20-2024 Medicare Advantage Annual Wellness Visit Medicare Advantage Annual Wellness Visit [facility] Start: 02-05-2024 End: 02-05-2024 Patient encounter procedure 02/05/2024 11:30 AM EDT Office Visit Neurology [address] [facility] [address] [place] [address] Windy Yuen MD [address] [facility] [address] [place] [address] 3 mo follow up Neurology Comment on above: 3 mo follow up Start: 01-19-2024 Covid-19 Vaccine ( season) Covid-19 Vaccine ( season) [facility] Start: 01-19-2024 Covid-19 Vaccine ( season) Covid-19 Vaccine ( season) [facility] Start: 01-19-2024 Influenza vaccination [facility] Start: 12-17-2023 End: 12-17-2023 Patient encounter procedure 12/17/2023 12:00 PM EDT Office Visit Neurology [address] [facility] [address] [place] [address] Windy Yuen MD [address] [facility] [address] [place] [address] 3 mo follow up- 09/24 [employer] message sent to patient. Dr Yuen is out of office-CC Neurology Comment on above: 3 mo follow up- 09/24 mychart message sent to patient. Dr Yuen is out of office-CC Start: 11-05-2023 End: 11-05-2023 Patient encounter procedure Neurology Comment on above: 3 mo follow up 3 mo follow up- 09/24 [employer] message sent to patient. Dr Yuen is out of office-CC Start: 05-20-2023 Advance Directive Discussion Advance Directive Discussion [facility] Start: 05-20-2023 Behavioral Health Screening Behavioral Health Screening [facility] Start: 05-20-2023 Depression Assessment Depression Ass essment [facility] Start: 01-18-2023 Covid-19 Vaccine () Covid-19 Vaccine () [facility] Start: 01-18-2023 Influenza vaccination Influenza Vacc ine (#1) [facility] Start: 11-15-2022 3 comp foot exam completed DIABETIC FOOT EXAM [facility] Start: 11-15-2022 Diabetic foot examination Diabetic Foot Exam [facility] Start: 05-20-2022 ADVANCE DIRECTIVE DISCUSSION ADVANCE DIRECTIVE DISCUSSION [facility] Start: 05-20-2022 DEPRESSION ASSESSMENT DEPRESSION ASS ESSMENT [facility] Start: 02-15-2022 Hemoglobin A1c measurement HbA1C [facility] Start: 02-15-2022 Hemoglobin A1c/Hemoglobin.total in Blood HBA1C [facility] Start: 01-18-2022 [facility] Start: 11-15-2021 End: 01-15-2022 C peptide [Mass/volume] in Serum or Plasma [facility] Work Phone: Comment on above: Expected: 11/15/2021 , Expires: 01/15/2022 Start: 11-15-2021 End: 11-15-2022 Glutamate decarboxylase 65 Ab [Units/volume] in Serum [facility] Work Phone: Comment on above: Expected: 11/15/2021 , Expires: 11/15/2022 Start: 11-15-2021 End: 11-15-2022 INSULIN ANTIBODY BLD [facility] Work Phone: Comment on above: Expected: 11/15/2021 , Expires: 11/15/2022 Start: 11-15-2021 End: 01-15-2022 INSULINOMA ASSOCIATED ANTIBODY 2 [facility] Work Phone: Comment on above: Expected: 11/15/2021 , Expires: 01/15/2022 Start: 11-15-2021 End: 11-15-2022 Pancreatic islet cell Ab [Titer] in Serum [facility] Work Phone: Comment on above: Expected: 11/15/2021 , Expires: 11/15/2022 Start: 11-15-2021 End: 01-15-2022 Thyroxine (T4) free [Mass/volume] in Serum or Plasma [facility] Work Phone: Comment on above: Expected: 11/15/2021 , Expires: 01/15/2022 Start: 05-20-2021 ADVANCE DIRECTIVE DISCUSSION ADVANCE DIRECTIVE DISCUSSION [facility] Start: 05-20-2021 DEPRESSION ASSESSMENT DEPRESSION ASS ESSMENT [facility] Start: 04-17-2021 COVID-19 VACCINE (2 - Pfizer series) COVID-19 VACCINE (2 - Pfizer series) [facility] Start: 04-21-2019 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 ANNUAL PCP TEAM CHRONIC DISEASE VISIT [facility] Start: 03-08-2018 Hepatitis B surface antibody level LDL CHOLESTEROL [facility] Start: 2017 RSV Vaccine (1 - 1-d ose 75+ series) RSV Vaccine (1 - 1-dose 75+ series) [facility] Start: 05-21-2016 PNEUMOCOCCAL: 65+ (2 - PPSV23 if available, else PCV20) PNEUMOCOCCAL: 65+ (2 - PPSV23 if available, else PCV20) [facility] Start: 05-21-2016 PNEUMOCOCCAL: 65+ (2 - PPSV23 or PCV20) PNEUMOCOCCAL: 65+ (2 - PPSV23 or PCV20) [facility] Start: 07-16-2015 Pneumococcal Vaccine : 50+ (2 of 2 - PPSV23) Pneumococcal Vaccine: 50+ (2 of 2 - PPSV23) [facility] Start: 07-16-2015 Pneumococcal Vaccine : 65+ (2 - PPSV23 or PCV20) Pneumococcal Vaccine: 65+ (2 - PPSV23 or PCV20) [facility] Start: 07-16-2015 Pneumococcal Vaccine : 65+ (2 of 2 - PPSV23 or PCV20) Pneumococcal Vaccine: 65+ (2 of 2 - PPSV23 or PCV20) [facility] Start: 07-16-2015 PNEUMOCOCCAL: 65+ (2 - PPSV23 if available, else PCV20) PNEUMOCOCCAL: 65+ (2 - PPSV23 if available, else PCV20) [facility] Start: 2007 BONE DENSITY BONE DENSITY [facility] Start: 2007 Bone Density Screening Bone Density Screening [facility] Start: 2007 Screening for osteoporosis Bone Density Screening [facility] Start: 2002 Hepatitis B Vaccine (1 of 3 - Risk 3-dose series) Hepatitis B Vaccine (1 of 3 - Risk 3-dose series) [facility] Start: 2002 RSV Vaccine (1 - 1-d ose 60+ series) RSV Vaccine (1 - 1-dose 60+ series) [facility] Start: 1992 SHINGRIX VACCINE (1 of 2) SHINGRIX VACCINE (1 of 2) [facility] Start: 1961 Urine microalbumin profile [facility] Start: 1960 Depression Screening Depression Scre ening [facility] Start: 1954 Adult depression screening assessment DEPRESSION SCREENING [facility] Start: 1952 Glaucoma screening Dilated Retinal E xam [facility] Start: 1952 Hepatitis B screening URINE ALBUMIN:CREATININE RATIO [facility] Start: 1952 Hepatitis C antibody , confirmatory test DILATED RETINAL EXAM [facility] Patient Education [facility] Work Phone: Patient referral [facility] Work Phone: [facility] Immunizations Immunization Date Immunization Notes Care Provider Fa cility 08-24-2020 influenza, injectabl e, quadrivalent, preservative free [facility] 08-24-2020 influenza, seasonal, injectable Dr. Rg Menchaca Work Phone: [facility] Work Phone: 08-24-2020 influenza virus vaccine, unspecified formulation Luis Eduardo Clemons Jr., MD Work Phone: [facility] 04-07-2018 Influenza virus vaccine [facility] 03-14-2018 influenza, high dose seasonal, preservative-free La Nena Lala MD Work Phone: [facility] Work Phone: 2017 influenza, high dose seasonal, preservative-free La Nena Lala MD Work Phone: [facility] 05-21-2015 pneumococcal conjuga te vaccine, 13 valent La Nena Lala MD Work Phone: [facility] Payers Date Payer Category Payer Unknown [id number] 2024 Self-pay [id number] 2022 Medicare [facility] MEDICARE [facility] DUAL COMPLETE HMO POS SNP [id number] 2022-Present [phone] [place] [address] Medicare [id number] 2022 Medicare (Managed Care) [facility] DUAL COMPLETE HMO POS SNP [id number] 2022 Unknown [id number] 2021 Medicaid [facility] MEDICAID MYC ARE [facility] MEDICAID [id number] 2021-Present [phone] [address] [place] [address] Medicaid [id number] 2021 Medicaid [id number] 2021 Unknown [id number] Medicare [id number] Unknown [id number] 2.16.840.1.884810.3.579.2. 462 Unknown [id number] 2.16.840.1.625513.3.579.2. 462 Unknown [id number] 2.16.840.1.147938.3.579.2. 462 Unknown [id number] 2.16.840.1.593923.3.579.2. 462 Unknown [id number] 2.16.840.1.506826.3.579.2. 462 Unknown [id number] 2.16.840.1.494903.3.579.2. 462 Unknown [id number] 2.16.840.1.062692.3.579.2. 462 Unknown [id number] 2.16.840.1.237561.3.579.2. 462 Unknown [id number] 2.16.840.1.452409.3.579.2. 462 Unknown [id number] 2.16.840.1.704824.3.579.2. 462 Unknown [id number] 2.16.840.1.912356.3.579.2. 462 Unknown [id number] 2.16.840.1.910787.3.579.2. 462 Unknown [id number] 2.16.840.1.807656.3.579.2. 462 Unknown [id number] 2.16.840.1.670950.3.579.2. 462 Unknown [id number] 2.16.840.1.587024.3.579.2. 462 Unknown [id number] 2.16.840.1.202684.3.579.2. 462 Unknown [id number] 2.16.840.1.973920.3.579.2. 462 Unknown [id number] 2.16.840.1.983970.3.579.2. 462 Unknown [id number] 2..840.1.187980.3.579.2. 462 Unknown [id number] 2.840.1.412847.3.579.2. 462 Unknown [id number] 2..840.1.040224.3.579.2. 462 Unknown [id number] 2.840.1.591211.3.579.2. 462 Unknown [id number] 2.840.1.375868.3.579.2. 462 Unknown [id number] 2.840.1.016637.3.579.2. 462 Unknown [id number] 2..840.1.826846.3.579.2. 462 Unknown [id number] 2.840.1.199369.3.579.2. 462 Unknown [id number] 2.840.1.244807.3.579.2. 462 Unknown [id number] 2.16.840.1.180316.3.579.2. 462 Unknown [id number] 2.16.840.1.838070.3.579.2. 462 Unknown [id number] 2.16.840.1.877236.3.579.2. 462 Unknown [id number] 2.16.840.1.562552.3.579.2. 462 Unknown [id number] 2.840.1.465208.3.579.2. 462 Unknown [id number] 2.16.840.1.467102.3.579.2. 462 Unknown [id number] 2.16.840.1.415982.3.579.2. 462 Unknown [id number] 2.16.840.1.653649.3.579.2. 462 Unknown [id number] 2.16.840.1.095711.3.579.2. 462 Unknown [id number] 2.16.840.1.409317.3.579.2. 462 Unknown [id number] 2.16.840.1.863428.3.579.2. 462 Unknown [id number] 2.16.840.1.384378.3.579.2. 462 Social History Date Type Detail Facility Start: 08-18-2021 End: 04-28-2022 Tobacco smoking status [facility] Unknown if ever smoked [facility] Start: 11-28-2018 None [facility] Start: 11-28-2018 [facility] Start: 11-28-2018 Non-smoker [facility] Start: 1940 Sex Assigned At Female [facility] Start: 01-07-2018 End: 04-28-2022 Tobacco smoking status NHIS Ex-smoker [facility] Start: 01-07-2018 End: 07-31-2023 Tobacco use and exposure Smokeless tobacco non-user [facility] Start: 1940 Sex Assigned At Not on file [facility] Start: 11-05-2021 End: 04-18-2022 Exposure to SARS-CoV-2 (event) Not sure [facility] History of tobacco use Current smoker [facility] Start: 04-18-2022 End: 02-05-2024 Alcohol intake Ex-drinker (finding) [facility] Start: 04-18-2022 End: 02-05-2024 History of Social function [facility] Start: 04-18-2022 End: 02-05-2024 Tobacco use panel [facility] National Score (1-10 0), lower number is lower risk 70 [facility] Start: 05-31-2022 Gender identity Identifies as female gender (finding) [facility] Start: 05-31-2022 Sexual orientation Heterosexual (tenzin ayala) [facility] Start: 08-12-2024 End: 09-11-2024 Sex Female (finding) [facility] Medical Equipment Procedure Code Equipment Code Equipment Origin al Text Equipment Identifier Dates Check blood suga r 4 times daily as intructed. Dx: E11.9. Insulin: yes [id number] Start: 01-17-2018 Comment on above: Check blood sugar 4 times daily as intructed. Dx: E11.9. Insulin: yes Functional Status Date Assessment Result Facility 08-19-2021 Functional status Activity Abili ty With Assist of 2 [facility] Work Phone: Mental Status Date Assessment Result Facility 03-04-2025 Cognitive function Awake [facility] Work Phone: 03-03-2025 Cognitive function Voice/Name [facility] Work Phone: 03-02-2025 Cognitive function Awake [facility] Work Phone: 02-02-2025 Cognitive function Awake;Alert;A ppropriate;Follow s Commands [facility] Work Phone: 01-08-2025 Cognitive function Awake;Alert;A ppropriate;Follow s Commands [facility] Work Phone: 01-07-2025 Cognitive function Awake;Alert;A ppropriate;Follow s Commands [facility] Work Phone: 01-06-2025 Cognitive function Awake;Alert;A ppropriate;Follow s Commands [facility] Work Phone: 12-03-2024 Cognitive function Awake;Alert;A ppropriate;Follow s Commands [facility] Work Phone: 12-02-2024 Cognitive function Voice/Name [facility] Work Phone: 12-01-2024 Cognitive function Awake;Alert;A ppropriate;Follow s Commands [facility] Work Phone: 11-05-2024 Cognitive function Voice/Name [facility] Work Phone: 11-04-2024 Cognitive function Voice/Name [facility] Work Phone: 11-03-2024 Cognitive function Voice/Name [facility] Work Phone: 10-07-2024 Cognitive function Voice/Name [facility] Work Phone: 10-06-2024 Cognitive function Voice/Name [facility] Work Phone: 09-10-2024 Cognitive function Awake;Alert;A ppropriate;Follow s Commands [facility] Work Phone: 09-09-2024 Cognitive function Awake;Alert;A ppropriate;Follow s Commands [facility] Work Phone: 09-08-2024 Cognitive function Awake;Alert;A ppropriate;Follow s Commands [facility] Work Phone: 08-13-2024 Cognitive function Awake;Alert;A ppropriate;Follow s Commands [facility] Work Phone: 08-12-2024 Cognitive function Awake;Alert;A ppropriate;Follow s Commands [facility] Work Phone: 08-11-2024 Cognitive function Awake;Alert;A ppropriate;Follow s Commands [facility] Work Phone: 07-16-2024 Cognitive function Voice/Name [facility] Work Phone: 07-14-2024 Cognitive function Awake;Alert;A ppropriate;Follow s Commands [facility] Work Phone: 06-18-2024 Cognitive function Awake;Alert;A ppropriate;Follow s Commands [facility] Work Phone: 06-17-2024 Cognitive function Voice/Name [facility] Work Phone: 06-16-2024 Cognitive function Awake;Alert;A ppropriate;Follow s Commands [facility] Work Phone: 05-21-2024 Cognitive function Awake;Alert;A ppropriate;Follow s Commands [facility] Work Phone: 04-23-2024 Cognitive function Awake;Alert;A ppropriate;Follow s Commands [facility] Work Phone: 04-22-2024 Cognitive function Awake;Alert;A ppropriate;Follow s Commands [facility] Work Phone: 04-21-2024 Cognitive function Voice/Name [facility] Work Phone: 09-13-2023 Cognitive function Awake;Alert;A ppropriate;Follow s Commands [facility] Work Phone: 09-12-2023 Cognitive function Level Of Cons ciousness Awake;Alert;Appropriate;Follow s Commands [facility] Work Phone: 09-11-2023 Cognitive function Awake;Alert;A ppropriate;Follow s Commands [facility] Work Phone: 09-10-2023 Cognitive function Voice/Name [facility] Work Phone: 09-09-2023 Cognitive function Awake;Alert;A ppropriate;Follow s Commands [facility] Work Phone: 03-01-2022 Cognitive function Level Of Cons ciousness Awake;Alert;Appropriate;Follow s Commands [facility] Work Phone: 08-30-2021 Cognitive function Level Of Cons ciousness Awake;Alert;Appropriate;Follow s Commands [facility] Work Phone: 08-19-2021 Cognitive function Voice/Name [facility] Work Phone: Clinical Notes 11-15-2021 to 11-11-2024 Patient InstructionsWindy Yuen MD - 11/11/2024 12:00 PM EDTTelephone Encounter - Kellen Duran LPN - 02/06/2024 8:02 AM Windy Tidwell MD - 02/05/2024 11:24 AM EDT Note Date & Type Note Facility 11-11-2024 Instructions Windy Yuen MD - 11/11/2024 12:38 PM EDT - Continue your IVIG infusions at [facility] as before, with three consecutive treatment [...] the year. Please call my office at [phone] if you need help coordinating your care. documented in this encounter [facility] 11-11-2024 History of Presen t illness [...] straightening out slightly. She mentions that a pipe fitter apprentice advised against surgery due to her age. Romain is currently receiving IVIG therapy at [facility], which began with five days per [...] syndrome Confirmed with qulitative and quantitative testing ([place]) demonstrating high ab titer som 65 lab [...] 2g/kg IBW) Fax order to Madelaine at [facility] at [phone] RTC 6 months documented in this encounter [facility] 11-11-2024 Note HNO ID: [id number] Author: WINDY YUEN MD Service: ? Author [...] straightening out slightly. She mentions that a pipe fitter apprentice advised against surgery due to her age. Romain is currently receiving IVIG therapy at [facility], which began with five days per [...] syndrome Confirmed with qulitative and quantitative testing ([place]) demonstrating high ab titer som 65 lab [...] 2g/kg IBW) Fax order to Madelaine at [facility] at [phone] RTC 6 months [facility] 02-06-2024 Miscellaneous Notes IVIG order was faxed to Madelaine at [facility] at [phone] with confirmation. documented in this encounter [facility] 02-06-2024 Telephone encounter Note IVIG order was faxed to Madelaine at [facility] at [phone] with confirmation. [facility] 02-05-2024 Note HNO ID: [id number] Author: WINDY YUEN MD Service: ? Author Type: Physician Type: Progress Notes Filed: 02/05/2024 11:52 Note Text: Romain is here for follow up; her daughter joins us on the phone for the appointment. She continues on baclofen and lorazepam. She is getting IVIG over 5 days every month at [facility] Had some trouble with the last [...] syndrome Confirmed with qulitative and quantitative testing ([place]) demonstrating high ab titer som 65 lab [...] that she can receive the treatments at [facility]. She is now s/p 5 monthly [...] 2g/kg IBW) Fax order to Madelaine at [facility] at [phone] RTC 6 months [facility] 02-05-2024 History of Presen t illness Narrative Images from the original note were not included. Romain is here for follow up; her daughter joins us on the phone for the appointment. She continues on baclofen and lorazepam. She is getting IVIG over 5 days every month at [facility] Had some trouble with the last [...] syndrome Confirmed with qulitative and quantitative testing ([place]) demonstrating high ab titer som 65 lab [...] that she can receive the treatments at [facility]. She is now s/p 5 monthly [...] 2g/kg IBW) Fax order to Madelaine at [facility] at [phone] RTC 6 months documented in this encounter [facility] 11-24-2023 Telephone encounter Note Patient's appointment changed from 12/17/23 to 02/05/[address] Yuen being out of the office. Appointment details faxed as requested by daughterNyla, so patient will have transportation for appointment. Faxed to [facility] [place]: [phone] Confirmation ok. [facility] 11-24-2023 Miscellaneous Notes Patient's appointment changed from 12/17/23 to 02/05/[address] Yuen being out of the office. Appointment details faxed as requested by daughter, Nyla, so patient will have transportation for appointment. Faxed to [facility] [place]: [phone] Confirmation ok. documented in this encounter [facility] 10-29-2023 Telephone encounter Note Faxed appointment change/reminder to [facility] [place]: [phone]. Confirmation ok. Appointment date for 12/17/23 arrive by 11:45am. [facility] 10-29-2023 Miscellaneous Notes Faxed appointment change/reminder to [facility] [place]: [phone]. Confirmation ok. Appointment date for 12/17/23 arrive by 11:45am. documented in this encounter [facility] 10-15-2023 Telephone encounter Note Pt daughter would like to speak to Dr Yuen via phone regarding noted changed in mother since starting her injections with her Insulin levels as well as Muscle Spasms [facility] 10-15-2023 Miscellaneous Notes Pt daughter would like to speak to Dr Yuen via phone regarding noted changed in mother since starting her injections with her Insulin levels as well as Muscle Spasms documented in this encounter [facility] 09-18-2023 Telephone encounter Note Spoke to Madelaine and relayed message from provider, she voiced understanding at this time and will let patient and daughter know. [facility] 09-18-2023 Miscellaneous Notes Spoke to Madelaine [...] tolerates the medication well. Per Madelaine from [facility], this patient's daughter would like to have her IVIG dose changed to a higher dose for a shorter duration. States this was discussed with Dr. Yuen previously. Please advise if this is correct and if so, please call Madelaine back at [phone]. A new order and authorization will be needed. documented in this encounter [facility] 09-18-2023 Telephone encounter Note We should [...] and that she tolerates the medication well. [facility] 09-18-2023 Telephone encounter Note Per Madelaine from [facility], this patient's daughter would like to have her IVIG dose changed to a higher dose for a shorter duration. States this was discussed with Dr. Yuen previously. Please advise if this is correct and if so, please call Madelaine back at [phone]. A new order and authorization will be needed. [facility] 08-13-2023 Miscellaneous Notes Faxed office notes, demographic sheet, copy of insurance, we don't have a copy of insurance cards to [phone]. documented in this encounter [facility] 07-31-2023 History of [...] is able to get the IVIG at [facility]. Office notes and IVIG order was faxed to Madelaine at [facility] at [phone] with confirmation. Our office Spoke to Madelaine and she stated that the patient will need documentation showing a failure or inability to tolerate the baclofen, in order to get approved for Gammagard. And needs progress note faxed to their office at [phone]. It seems like there was a misunderstanding; [...] syndrome Confirmed with qulitative and quantitative testing ([place]) demonstrating high ab titer som 65 lab [...] that she can receive the treatments at [facility]. Will send off IVIG rx for insurance approval. RTC 3 months documented in this encounter [facility] 03-25-2023 Miscellaneous Notes The listed home phone number for the patient is her daughter Nyla's phone. Nyla was notified of the canceled appointment and new appointment. The daughter was instructed that the patient must have someone accompany her to the appointment. The patient resides at the [place] at [facility]. [place]. [phone] and spoke with [...] The appointment reminder was faxed to the [place]. TC to daughter regarding upcoming appointment with Dr. Clemons. 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 Pt will need to be seen by neuromuscular for treatment and care, per . Samira Vieira LPN documented in this encounter [facility] 07-20-2022 Miscellaneous Notes completed a Virtual Visit with patient and facility. CLOSED Called patients daughter Nyla and left to call back office at [phone]. Wanted to check and see how her [...] not know why they arranged for this pick up man time because she would have been late [...] after 9 am to make arrangements. Nyla [phone] documented in this encounter [facility] 06-12-2022 Miscellaneous Notes Faxed new orders to the [facility] at [phone],transmission ok CLOSED Addended by: LA NENA LALA on: 06/12/2022 01:27 PM Modules accepted: Orders Reviewed the blood sugars. She is having low blood sugars in the morning, and mostly high blood sugars with meals, and especially at bedtime. Please call the prison to let them know of the following [...] Please advise, thanks. documented in this encounter [facility] 06-04-2022 Instructions La Nena Lala MD - 06/04/2022 3:04 PM EST Images from the original note were not included. - Please do blood tests to check TSH, free T4 and A1c, and fax the results to us on [phone] - Please fax the glucose values from the last 2 weeks to us - Do not eat more than 60 g of carbs per meal. documented in this encounter [facility] 06-04-2022 History of Presen t illness Narrative ENDOCRINOLOGY CLINIC NOTE Ms. Mcdermott is a 82 year old female with T1DM and hypothyroidism presented for follow-up of hypothyroidism and diabetes. 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 She saw a pipe fitter apprentice before and was told that she had old changes and no intervention was done. They were hoping to see someone for a second opinion to see if they can help with the foot deformity as this is what is keeping her in the prison. She is still complaining of spasm in [...] diet has not been optimal at the prison. A1c: 11/15/21 11:30 Hemoglobin A1C (POCT) 8.1 ! 9.4% in 08/2021 Current regimen: Levemir 29 units in the morning NovoLog based on a sliding scale 1 unit for every 50 starting at 170 Glucose monitoring: She has received the freestyle jeremiah and is being managed by the nurses at the prison. I did not have the glucose data to make changes today Diet: She eats 3 meals but the options are limited in the prison Complications: Retinopathy: 6 months ago. She has [...] bed. She has been staying in a prison for the last couple of years due [...] give the instructions. [facility] phone number is [phone] Some of the above has been copied from prior documentation on 11/15/2021 but foster elements reviewed, confirmed, and/or updated by me (La Nena Lala MD) on 06/04/2022 I spent a total of 40 minutes on the date of the service which included preparing to see the patient, [id number] patient care, completing clinical documentation, obtaining and/or reviewing separately obtained history, and counseling and educating the patient/family/caregiver. Virtual Visit (Audio/Visual)I have discussed the nature of this visit with the patient which will occur via [facility] (Phone, Virtual Visit) and she agrees to proceed with this interaction. La Nena Lala MD documented in this encounter [facility] 04-18-2022 Note HNO ID: [id number] Author: AVELINO Kahn Service: Radiology Author Type: [...] AVELINO Kahn April 18, 2022 3:06 PM [facility] 04-18-2022 History of Presen t illness Narrative [...] PRN. Maryan Loving DPM, DABJOSE, FACFAS Pager: [phone] [facility] Rheumat[facility] and [facility] locations documented in this encounter [facility] 04-18-2022 History of Presen t illness [...] 2022 3:06 PM documented in this encounter [facility] 11-15-2021 History of Presen t illness Narrative Patient brought some medical records. Sent to scanning. Images from the original note were not included. ENDOCRINOLOGY CLINIC NOTE Ms. Mcdermott is a 81 year old female with T1DM and hypothyroidism self-referred for management of hypothyroidism and diabetes. 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 She saw a pipe fitter apprentice before and was told that she had old changes and no intervention was done. They were hoping to see someone for a second opinion to see if they can help with the foot deformity as this is what is keeping her in the prison. Hypothyroidism: levothyroxine 75 mcg daily. No recent [...] I reviewed the glucose data from the prison. The values went from September, and no glucose levels were available from October. In September, her glucose levels fluctuated significantly between 65-398 on variable times of day. There is really no pattern regarding the hypo or hyperglycemia Diet: She eats 3 meals but the options are limited in the prison Complications: Retinopathy: 6 months ago. She has [...] T1DM. She has been staying in a prison for the last couple of years due to an acquired right foot deformity. Her diabetes is poorly controlled as evidenced by the A1c level and the reviewed glucose data. This is most likely due to suboptimal regimen, inconsistencies with diet and timing of insulin administration at the prison. We will continue with the same doses [...] only reason why she is in the prison is because of the right foot deformity I spent a total of 60 minutes on the date of the service which included preparing to see the patient, [id number] patient care, completing clinical documentation, obtaining and/or reviewing separately obtained history, performing a medically appropriate examination, counseling and educating the patient/family/caregiver and ordering medications, tests, or procedures. La Nena Lala MD documented in this encounter [facility] 11-15-2021 Instructions La Nena Lala MD [...] referred you to orthopedic surgery. Please call [phone] To schedule documented in this encounter [facility] Evaluation note Diagnosis Onset Date SHEKHAR (acute kidney injury) [place] Hyperglycemia due to diabetes mellitus [facility] Work Phone: Evaluation note* Diagnosis Acquired hypothyroidism- Primary Unspecified hypothyroidism Poorly controlled type 1 diabetes mellitus (HCC) Type I (juvenile type) diabetes mellitus without mention of complication, not stated as uncontrolled [facility] Diagnosis Cavovarus deformity of foot, acquired, right- Primary Other osteoporosis without current pathological fracture Hammertoe, bilateral [facility] noteNo assessment information availableWSelect [facility] Work Phone: Evaluation note* Diagnosis Poorly controlled type 1 diabetes mellitus (HCC)- Primary Type I (juvenile type) diabetes mellitus without mention of complication, not stated as uncontrolled Acquired hypothyroidism Unspecified hypothyroidism [facility] Diagnosis Controlled type 2 diabetes mellitus without complication, with long-term current use of insulin (HCC) [facility] 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 If you have any further concerns please return for repeat evaluationWSelect [facility] Work Phone: Rejlut for referral (narrative)* Diagnostic Procedure Only (Routine) - Closed Specialty Diagnoses / Procedures Referred By Contac t Referred To Contact XR IMAGING Diagnoses Pain Procedures XR FOOT GENERAL 3V AP/LAT/OBL RIGHT RADEX FOOT COMPLETE MINIMUM 3 VIEWS Maryan Loving DPM [id number] [place] [id number] Xr Imaging [facility] Referral ID Status Reason Start Date Expiration Date V isits Requested Visits Authorized [id number] Closed Auto-Generate d Referral 12/04/2021 01/03/2023 1 1 [facility] for referral (narrative)No reason for referral information availableWSelect Medical [facility] Work Phone: Reason for visit Narrative* Diagnostic Procedure Only (Routine) - Closed Specialty Diagnoses / Procedures Referred By Contac t Referred To Contact XR IMAGING Diagnoses Pain Procedures XR FOOT GENERAL 3V AP/LAT/OBL RIGHT RADEX FOOT COMPLETE MINIMUM 3 VIEWS Maryan Loving DPM [address] [place] [id number] Xr Imaging [facility] Referral ID Status Reason Start Date Expiration Date V isits Requested Visits Authorized [id number] Closed Auto-Generate d Referral 12/04/2021 01/03/2023 1 1 [facility] Chief Complaint and Reason for Visit [...] 7: 38am IVIG February 02, 2025 7:41am Chief Complaint Admit Date IVIG October 07, 2024 8:14a m IVIG [...] 7: 38am IVIG February 02, 2025 7:41am IVIG February 03, 2025 7:26am Chief Complaint Admit Date IVIG November 03, 2024 7:54 am IVIG November 04, 2024 7:49 am IVIG November 05, 2024 8:09 am IVIG December 01, 2024 7:58 am IVIG December 02, 2024 7:57 am IVIG December 03, 2024 8:01 am IVIG January 06, 2025 8: 03am IVIG January 07, 2025 7: 43am IVIG January 08, 2025 7: 38am IVIG February 02, 2025 7:41am IVIG February 03, 2025 7:26am IVIG February 04, 2025 7:59am Chief Complaint Admit Date IVIG December 01, 2024 7:58 am IVIG December 02, 2024 7:57 am IVIG December 03, 2024 8:01 am IVIG January 06, 2025 8: 03am IVIG January 07, 2025 7: 43am IVIG January 08, 2025 7: 38am IVIG February 02, 2025 7:41am IVIG February 03, 2025 7:26am IVIG February 04, 2025 7:59am IVIG March 02, 2025 7 :38am IVIG March 03, 2025 7 :54am IVIG March 04, 2025 8 :06am Family History No Family History Records Found Relationship Condition Age at Onset Recorded Date/T jane Not Specified Cardiac disease Unknown Malignant neoplasm Unknown Advance Directives No Advanced Directives Records Found Advance Directive Response Recorded Date/ Time Living Will No August 18, 2021 6:10pm Power of Internal Carver No August 18 6:10pm Advance Directive Response Recorded Date/ Time Living Will No August 18, 2021 9:27pm Power of Internal Carver No August 18 9:27pm Advance Directive Response Recorded Date/ Time Living Will No August 30, 2021 6:13pm Power of Internal Carver No August 30 6:13pm Advance Directive Response Recorded Date/ Time Name of Medical Power of Internal Carver Nyla Mcnulty April 28, 2022 10:03pm Living Will Yes April 28, 022 10:03pm Power of Internal Carver Yes April 28, 2022 10:03pm Advance Directive Response Recorded Date/ Time Living Will Yes April 28, 022 11:03pm Power of Internal Carver Yes April 28, 2022 11:03pm Reason for Referral Specialty Diagnoses / Procedures Referred By Saurav jameson Referred To Contact Orthopedics Diagnoses Acquired hypothyroidism Poorly controlled type 1 diabetes mellitus (HCC) Procedures CONSULT TO ORTHOPAEDICS OFFICE/OUTPATIENT [facility] MDM 60-74 MINUTES La Nena Llaa MD [address] [place] [address] Referral ID Status Reason Start Date Expiration Date Visits Requested Visits Authorized [id number] Authorized PCP Requested Referral 11/15/2021 11/15/2022 1 1 Specialty Diagnoses / Procedures Referred By Contac t Referred To Contact Diagnoses Stiff person syndrome Procedures PROVIDER ORDERED FOLLOW UP OFFICE/OUTPATIENT [facility] MDM 60 MINUTES Windy Yuen MD [address] [address] Referral ID Status Reason Start Date Expiration Date Visits Requested Visits Authorized [id number] Authorized PCP Requested Referral 10/31/2023 07/30/2024 1 [...] or prosecute any alcohol or drug abuse patient.[facility] the event this information is protected by the Federal Confidentiality of Alcohol and Drug Abuse Patient Records regulations: The Federal rules restrict any use of the information to criminally investigate or prosecute any alcohol or drug abuse patient.[facility] Hospital[facility] the event this information is protected by the Federal Confidentiality of Alcohol and Drug Abuse Patient Records regulations: The Federal rules restrict any use of the information to criminally investigate or prosecute any alcohol or drug abuse patient.[facility] Hospital[facility] the event this information is protected by the Federal Confidentiality of Alcohol and Drug Abuse Patient Records regulations: The Federal rules restrict any use of the information to criminally investigate or prosecute any alcohol or drug abuse patient.[facility] HospitalIn the event this information is protected by the Federal Confidentiality of Alcohol and Drug Abuse Patient Records regulations: The Federal rules restrict any use of the information to criminally investigate or prosecute any alcohol or drug abuse patient.[facility] Hospital[facility] the event this information is protected by the Federal Confidentiality of Alcohol and Drug Abuse Patient Records regulations: The Federal rules restrict any use of the information to criminally investigate or prosecute any alcohol or drug abuse patient.[facility] Hospital[facility] the event this information is protected by the Federal Confidentiality of Alcohol and Drug Abuse Patient Records regulations: The Federal rules restrict any use of the information to criminally investigate or prosecute any alcohol or drug abuse patient.[facility] HospitalIn the event this information is protected by the Federal Confidentiality of Alcohol and Drug Abuse Patient Records regulations: The Federal rules restrict any use of the information to criminally investigate or prosecute any alcohol or drug abuse patient.[facility] HospitalIn the event this information is protected by the Federal Confidentiality of Alcohol and Drug Abuse Patient Records regulations: The Federal rules restrict any use of the information to criminally investigate or prosecute any alcohol or drug abuse patient.[facility] HospitalIn the event this information is protected by the Federal Confidentiality of Alcohol and Drug Abuse Patient Records regulations: The Federal rules restrict any use of the information to criminally investigate or prosecute any alcohol or drug abuse patient.[facility] HospitalIn the event this information is protected by the Federal Confidentiality of Alcohol and Drug Abuse Patient Records regulations: The Federal rules restrict any use of the information to criminally investigate or prosecute any alcohol or drug abuse patient.[facility] HospitalIn the event this information is protected by the Federal Confidentiality of Alcohol and Drug Abuse Patient Records regulations: The Federal rules restrict any use of the information to criminally investigate or prosecute any alcohol or drug abuse patient.[facility] HospitalIn the event this information is protected by the Federal Confidentiality of Alcohol and Drug Abuse Patient Records regulations: The Federal rules restrict any use of the information to criminally investigate or prosecute any alcohol or drug abuse patient.[facility] HospitalIn the event this information is protected by the Federal Confidentiality of Alcohol and Drug Abuse Patient Records regulations: The Federal rules restrict any use of the information to criminally investigate or prosecute any alcohol or drug abuse patient.[facility] HospitalIn the event this information is protected by the Federal Confidentiality of Alcohol and Drug Abuse Patient Records regulations: The Federal rules restrict any use of the information to criminally investigate or prosecute any alcohol or drug abuse patient.[facility] HospitalIn the event this information is protected by the Federal Confidentiality of Alcohol and Drug Abuse Patient Records regulations: The Federal rules restrict any use of the information to criminally investigate or prosecute any alcohol or drug abuse patient.[facility] HospitalIn the event this information is protected by the Federal Confidentiality of Alcohol and Drug Abuse Patient Records regulations: The Federal rules restrict any use of the information to criminally investigate or prosecute any alcohol or drug abuse patient.[facility] HospitalIn the event this information is protected by the Federal Confidentiality of Alcohol and Drug Abuse Patient Records regulations: The Federal rules restrict any use of the information to criminally investigate or prosecute any alcohol or drug abuse patient.[facility] Reason for Visit (unrecogniz ed section [...] Appointment Update F axed to [facility] [place] for 12/17/23 Reason Comments Appointment Update faxed to [facility] [place] for appointment 02/05/24 Reason Comments Follow Up Patient states no ch anges. Reason Comments Orders IVIG INFORMATION SOURCE (unrecogn ized section and content) DATE CREATED AUTHOR 03/15/2022 [facility] DATE CREATED AUTHOR AUTHOR'S ORGANIZ ATION 04/19/2022 [facility] DATE CREATED AUTHOR AUTHOR'S ORGANIZ ATION 11/15/2024 [facility] DATE CREATED AUTHOR AUTHOR'S ORGANIZ ATION 03/31/2025 [facility] Care Teams (unrecognized sec tion and content) [employer]il [employer] Aide Relationship Specialty Start Date End Date Rg Menchaca MD [address] [facility] [address] [place], [place] [id number] PCP - General Family Medicine 04/18/22 [employer] Conservation Aide Relationship Specialty Start Date End Date Rg Menchaca MD [address] [facility] [address] [place], [place] [id number] PCP - General Family Medicine 04/18/22 Soil Conservation Aide Relationship Specialty Start Date End Date Rg Menchaca MD [address] [facility] [address] [place] [address] PCP - General Family Medicine 04/18/22 Soil Conservation Aide Relationship Specialty Start Date End Date Rg Menchaca MD [address] [facility] [address] [place] [address] PCP - General Family Medicine 04/18/22 Soil Conservation Aide Relationship Specialty Start Date End Date Rg Menchaca MD [address] [facility] [address] [place] [address] PCP - General Family Medicine 04/18/22 Soil Conservation Aide Relationship Specialty Start Date End Date Rg Menchaca MD [address] [facility] [address] [place] [address] PCP - General Family Medicine 04/18/22 Soil Conservation Aide Relationship Specialty Start Date End Date Rg Menchaca MD [address] [facility] [address] [place] [address] PCP - General Family Medicine 04/18/22 Team Status: Active Member Role Status Dates Dr. Rg Menchaca MD Family Provider Active Dr. Rg Menchaca MD Primary Care Provider Active Team Status: Inactive Member Role Status Dates Dr. Rg Menchaca MD Primary Care Provider Active [employer] [facility] Attending Provider, Referring Provide r Active [employer] Aide Relationship Specialty Start Date End Date Rg Menchaca MD [address] [facility] [address] [place] [address] PCP - General Family Medicine 04/18/22 Soil Conservation Aide Relationship Specialty Start Date End Date Rg Menchaca MD [address] [facility] [address] [place] [address] PCP - General Family Medicine 04/18/22 Soil Conservation Aide Relationship Specialty Start Date End Date Rg Menchaca MD [address] [facility] [address] [place], [place] [id number] PCP - General Family Medicine 04/18/22 Soil Conservation Aide Relationship Specialty Start Date End Date Rg Menchaca MD [address] [facility] [address] [place], [place] [id number] PCP - General Family Medicine 04/18/22 Team [...] Inactive Member Role Status Dates Dr. Rg Menchcaa MD Primary Care Provider Active Start: October [...] November 05, 2024 End: November 05, 2024 Soil Conservation Aide Relationship Specialty Start Date End Date Rg Menchaca MD [address] [place] [address] [address] [place] [address] PCP - General Family Medicine 04/18/22 Team [...] February 02, 2025 End: February 02, 2025 Team Status: Active Member Role/Relationship Status Dates Dr. Rg Menchaca MD Primary care physician Active Team Status: Inactive Member Role/Relationship Status Dates Dr. Rg Menchaca MD Primary care physician Active Start: October 07, 2024 End: October 07, 2024 Dr. Windy Yuen MD Attending physician Active Start: October 07, 2024 End: October 07, 2024 Dr. Windy Yuen MD Referring Provider Active Start: October 07, 2024 End: October 07, 2024 Team Status: Inactive Member Role/Relationship Status Dates Dr. Rg Menchaca MD Primary care physician Active Start: October 08, 2024 End: October 08, 2024 Dr. Windy Yuen MD Attending physician Active Start: October 08, 2024 End: October 08, 2024 Dr. Windy Yuen MD Referring Provider Active Start: October 08, 2024 End: October 08, 2024 Team Status: Inactive Member Role/Relationship Status Dates Dr. Rg Menchaca MD Primary care physician Active Start: November 03, 2024 End: November 03, 2024 Dr. Windy Yuen MD Attending physician Active Start: November 03, 2024 End: November 03, 2024 Dr. Windy Yuen MD Referring Provider Active Start: November 03, 2024 End: November 03, 2024 Team Status: Inactive Member Role/Relationship Status Dates Dr. Rg Menchaca MD Primary care physician Active Start: November 04, 2024 End: November 04, 2024 Dr. Windy Yuen MD Attending physician Active Start: November 04, 2024 End: November 04, 2024 Dr. Windy Yuen MD Referring Provider Active Start: November 04, 2024 End: November 04, 2024 Team Status: Inactive Member Role/Relationship Status Dates Dr. Rg Menchaca MD Primary care physician Active Start: November 05, 2024 End: November 05, 2024 Dr. Windy Yuen MD Attending physician Active Start: November 05, 2024 End: November 05, 2024 Dr. Windy Yuen MD Referring Provider Active Start: November 05, 2024 End: November 05, 2024 Team Status: Inactive Member Role/Relationship Status Dates Dr. Rg Menchaca MD Primary care physician Active Start: December 01, 2024 End: December 01, 2024 Dr. Windy Yuen MD Attending physician Active Start: December 01, 2024 End: December 01, 2024 Dr. Windy Yuen MD Referring Provider Active Start: December 01, 2024 End: December 01, 2024 Team Status: Inactive Member Role/Relationship Status Dates Dr. Rg Menchaca MD Primary care physician Active Start: December 02, 2024 End: December 02, 2024 Dr. Windy Yuen MD Attending physician Active Start: December 02, 2024 End: December 02, 2024 Dr. Windy Yuen MD Referring Provider Active Start: December 02, 2024 End: December 02, 2024 Team Status: Inactive Member Role/Relationship Status Dates Dr. Rg Menchaca MD Primary care physician Active Start: December 03, 2024 End: December 03, 2024 Dr. Windy Yuen MD Attending physician Active Start: December 03, 2024 End: December 03, 2024 Dr. Windy Yuen MD Referring Provider Active Start: December 03, 2024 End: December 03, 2024 Team Status: Inactive Member Role/Relationship Status Dates Dr. Rg Menchaca MD Primary care physician Active Start: January 06, 2025 End: January 06, 2025 Dr. Windy Yuen MD Attending physician Active Start: January 06, 2025 End: January 06, 2025 Dr. Windy Yuen MD Referring Provider Active Start: January 06, 2025 End: January 06, 2025 Team Status: Inactive Member Role/Relationship Status Dates Dr. Rg Menchaca MD Primary care physician Active Start: January 07, 2025 End: January 07, 2025 Dr. Windy Yuen MD Attending physician Active Start: January 07, 2025 End: January 07, 2025 Dr. Windy Yuen MD Referring Provider Active Start: January 07, 2025 End: January 07, 2025 Team Status: Inactive Member Role/Relationship Status Dates Dr. Rg Menchaca MD Primary care physician Active Start: January 08, 2025 End: January 08, 2025 Dr. Windy Yuen MD Attending physician Active Start: January 08, 2025 End: January 08, 2025 Dr. Windy Yuen MD Referring Provider Active Start: January 08, 2025 End: January 08, 2025 Team Status: Inactive Member Role/Relationship Status Dates Dr. Rg Menchaca MD Primary care physician Active Start: February 02, 2025 End: February 02, 2025 Dr. Windy Yuen MD Attending physician Active Start: February 02, 2025 End: February 02, 2025 Dr. Windy Yuen MD Referring Provider Active Start: February 02, 2025 End: February 02, 2025 Team Status: Inactive Member Role/Relationship Status Dates Dr. Rg Menchaca MD Primary care physician Active Start: February 03, 2025 End: February 03, 2025 Dr. Windy Yuen MD Attending physician Active Start: February 03, 2025 End: February 03, 2025 Dr. Windy Yuen MD Referring Provider Active Start: February 03, 2025 End: February 03, 2025 Team Status: Inactive Member Role/Relationship Status Dates Dr. Rg Menchaca MD Primary care physician Active Start: November 03, 2024 End: November 03, 2024 Dr. Windy Yuen MD Attending physician Active Start: November 03, 2024 End: November 03, 2024 Dr. Windy Yune MD Referring Provider Active Start: November 03, 2024 End: November 03, 2024 Team Status: Inactive Member Role/Relationship Status Dates Dr. Rg Menchaca MD Primary care physician Active Start: November 04, 2024 End: November 04, 2024 Dr. Windy Yuen MD Attending physician Active Start: November 04, 2024 End: November 04, 2024 Dr. Windy Yuen MD Referring Provider Active Start: November 04, 2024 End: November 04, 2024 Team Status: Inactive Member Role/Relationship Status Dates Dr. Rg Menchaca MD Primary care physician Active Start: November 05, 2024 End: November 05, 2024 Dr. Windy Yuen MD Attending physician Active Start: November 05, 2024 End: November 05, 2024 Dr. Windy Yuen MD Referring Provider Active Start: November 05, 2024 End: November 05, 2024 Team Status: Inactive Member Role/Relationship Status Dates Dr. Rg Menchaca MD Primary care physician Active Start: December 01, 2024 End: December 01, 2024 Dr. Windy Yuen MD Attending physician Active Start: December 01, 2024 End: December 01, 2024 Dr. Windy Yuen MD Referring Provider Active Start: December 01, 2024 End: December 01, 2024 Team Status: Inactive Member Role/Relationship Status Dates Dr. Rg Menchaca MD Primary care physician Active Start: December 02, 2024 End: December 02, 2024 Dr. Windy Yuen MD Attending physician Active Start: December 02, 2024 End: December 02, 2024 Dr. Windy Yuen MD Referring Provider Active Start: December 02, 2024 End: December 02, 2024 Team Status: Inactive Member Role/Relationship Status Dates Dr. Rg Menchaca MD Primary care physician Active Start: December 03, 2024 End: December 03, 2024 Dr. Windy Yuen MD Attending physician Active Start: December 03, 2024 End: December 03, 2024 Dr. Windy Yuen MD Referring Provider Active Start: December 03, 2024 End: December 03, 2024 Team Status: Inactive Member Role/Relationship Status Dates Dr. Rg Menchaca MD Primary care physician Active Start: January 06, 2025 End: January 06, 2025 Dr. Windy Yuen MD Attending physician Active Start: January 06, 2025 End: January 06, 2025 Dr. Windy Yuen MD Referring Provider Active Start: January 06, 2025 End: January 06, 2025 Team Status: Inactive Member Role/Relationship Status Dates Dr. Rg Menchaca MD Primary care physician Active Start: January 07, 2025 End: January 07, 2025 Dr. Windy Yuen MD Attending physician Active Start: January 07, 2025 End: January 07, 2025 Dr. Windy Yuen MD Referring Provider Active Start: January 07, 2025 End: January 07, 2025 Team Status: Inactive Member Role/Relationship Status Dates Dr. Rg Menchaca MD Primary care physician Active Start: January 08, 2025 End: January 08, 2025 Dr. Windy Yuen MD Attending physician Active Start: January 08, 2025 End: January 08, 2025 Dr. Windy Yuen MD Referring Provider Active Start: January 08, 2025 End: January 08, 2025 Team Status: Inactive Member Role/Relationship Status Dates Dr. Rg Menchaca MD Primary care physician Active Start: February 02, 2025 End: February 02, 2025 Dr. Windy Yuen MD Attending physician Active Start: February 02, 2025 End: February 02, 2025 Dr. Windy Yuen MD Referring Provider Active Start: February 02, 2025 End: February 02, 2025 Team Status: Inactive Member Role/Relationship Status Dates Dr. Rg Menchaca MD Primary care physician Active Start: February 03, 2025 End: February 03, 2025 Dr. Windy Yuen MD Attending physician Active Start: February 03, 2025 End: February 03, 2025 Dr. Windy Yuen MD Referring Provider Active Start: February 03, 2025 End: February 03, 2025 Team Status: Inactive Member Role/Relationship Status Dates Dr. Rg Menchaca MD Primary care physician Active Start: February 04, 2025 End: February 04, 2025 Dr. Windy Yuen MD Attending physician Active Start: February 04, 2025 End: February 04, 2025 Dr. Windy Yuen MD Referring Provider Active Start: February 04, 2025 End: February 04, 2025 Team Status: Inactive Member Role/Relationship Status Dates Dr. Rg Menchaca MD Primary care physician Active Start: December 01, 2024 End: December 01, 2024 Dr. Windy Yuen MD Attending physician Active Start: December 01, 2024 End: December 01, 2024 Dr. Windy Yuen MD Referring Provider Active Start: December 01, 2024 End: December 01, 2024 Team Status: Inactive Member Role/Relationship Status Dates Dr. Rg Menchaca MD Primary care physician Active Start: December 02, 2024 End: December 02, 2024 Dr. Windy Yuen MD Attending physician Active Start: December 02, 2024 End: December 02, 2024 Dr. Windy Yuen MD Referring Provider Active Start: December 02, 2024 End: December 02, 2024 Team Status: Inactive Member Role/Relationship Status Dates Dr. Rg Menchaca MD Primary care physician Active Start: December 03, 2024 End: December 03, 2024 Dr. Windy Yuen MD Attending physician Active Start: December 03, 2024 End: December 03, 2024 Dr. Windy Yuen MD Referring Provider Active Start: December 03, 2024 End: December 03, 2024 Team Status: Inactive Member Role/Relationship Status Dates Dr. Rg Menchaca MD Primary care physician Active Start: January 06, 2025 End: January 06, 2025 Dr. Windy Yuen MD Attending physician Active Start: January 06, 2025 End: January 06, 2025 Dr. Windy Yuen MD Referring Provider Active Start: January 06, 2025 End: January 06, 2025 Team Status: Inactive Member Role/Relationship Status Dates Dr. Rg Menchaca MD Primary care physician Active Start: January 07, 2025 End: January 07, 2025 Dr. Windy Yuen MD Attending physician Active Start: January 07, 2025 End: January 07, 2025 Dr. Windy Yuen MD Referring Provider Active Start: January 07, 2025 End: January 07, 2025 Team Status: Inactive Member Role/Relationship Status Dates Dr. Rg Menchaca MD Primary care physician Active Start: January 08, 2025 End: January 08, 2025 Dr. Windy Yuen MD Attending physician Active Start: January 08, 2025 End: January 08, 2025 Dr. Windy Yuen MD Referring Provider Active Start: January 08, 2025 End: January 08, 2025 Team Status: Inactive Member Role/Relationship Status Dates Dr. Rg Menchaca MD Primary care physician Active Start: February 02, 2025 End: February 02, 2025 Dr. Windy Yuen MD Attending physician Active Start: February 02, 2025 End: February 02, 2025 Dr. Windy Yuen MD Referring Provider Active Start: February 02, 2025 End: February 02, 2025 Team Status: Inactive Member Role/Relationship Status Dates Dr. Rg Menchaca MD Primary care physician Active Start: February 03, 2025 End: February 03, 2025 Dr. Windy Yuen MD Attending physician Active Start: February 03, 2025 End: February 03, 2025 Dr. Windy Yuen MD Referring Provider Active Start: February 03, 2025 End: February 03, 2025 Team Status: Inactive Member Role/Relationship Status Dates Dr. Rg Menchaca MD Primary care physician Active Start: February 04, 2025 End: February 04, 2025 Dr. Windy Yuen MD Attending physician Active Start: February 04, 2025 End: February 04, 2025 Dr. Windy Yuen MD Referring Provider Active Start: February 04, 2025 End: February 04, 2025 Team Status: Inactive Member Role/Relationship Status Dates Dr. Rg Menchaca MD Primary care physician Active Start: March 02, 2025 End: March 02, 2025 Dr. Windy Yuen MD Attending physician Active Start: March 02, 2025 End: March 02, 2025 Dr. Windy Yuen MD Referring Provider Active Start: March 02, 2025 End: March 02, 2025 Team Status: Inactive Member Role/Relationship Status Dates Dr. Rg Menchaca MD Primary care physician Active Start: March 03, 2025 End: March 03, 2025 Dr. Windy Yuen MD Attending physician Active Start: March 03, 2025 End: March 03, 2025 Dr. Windy Yuen MD Referring Provider Active Start: March 03, 2025 End: March 03, 2025 Team Status: Inactive Member Role/Relationship Status Dates Dr. Rg Menchaca MD Primary care physician Active Start: March 04, 2025 End: March 04, 2025 Dr. Windy Yuen MD Attending physician Active Start: March 04, 2025 End: March 04, 2025 Dr. Windy Yuen MD Referring Provider Active Start: March 04, 2025 End: March 04, 2025 FOR RECORDS PERTAINING TO PATIENTS WHO [...] BE BASED ON THE PRIMARY CLINICAL RECORDS. [facility] [employer] provides no warranty or guarantee of the accuracy or completeness of information in this document.
[2025-04-28] MEDS: Immune Globulin 20 gm 20 GM/200 ML VIAL IV (08:32)
[2025-04-28] MEDS: Immune Globulin 10 gm 10 GM/100 ML VIAL IV (11:11)
[2025-04-28] MEDS: Immune Globulin 5 GM 5 GM/50 ML VIAL IV (11:57)
== END 2025-04-28 23:59 | disposition home or self-care (01) ==
LOC: MEDOUTP 07:51
PROVIDERS: PCP Family Medicine; Referring Provider Psychiatry & Neurology Neurology; Visit Provider Psychiatry & Neurology Neurology
DX: G25.82 Stiff-man syndrome (principal)
CPT/HCPCS: 96365; 96366; A4216; J1568

== ENCOUNTER 2025-04-29 07:38 | Outpatient (CLI) | payer MEDICARE, MEDICAID, SELFPAY ==
[2025-04-29 07:51] VITALS: BP 100/50; PULSE 77; RESP 16; TEMP 36.4; O2SAT 95; BMI 24.4
--- OUTSIDE RECORDS SUMMARY | 2025-04-29 07:53 | XMS RPT_ITS | CCD ---
Author Organization [facility] Care Team Providers Care Dried Fruit Washer Name Role Phone Dr. Rg Menchaca Primary Care Provider MD Saul Cruz Emergency Provider Dr. Sean Godwin Admit Provider Dr. Elise Sanchez Attending Provider Dr. Elise Sanchez Other Provider Unavailable Primary Care Provider Unavailabl Rg Escobar MD Primary Care Provider [phone] PROVIDER, UNKNOWN Referring Unavailable PROVIDER, UNKNOWN Referring [...] Norris Referring Provider [phone] Doyle ANDRADE, Rg Norris Primary Care Provider WINDY YUEN [...] Physician Dr. Windy Yuen MD Referring Provider Spolter, Windy Attending Unavailable Spolter, Windy Referring Unavailable Menchaca, Rg Primary Care Unavailable Spolter, Windy Referring Unavailable Menchaac, Rg Primary Care Unavailable Spolter, Windy Attending [...] Start: 01-17-2018 Blood-Glucose Meter (RELION PRIME METER) [facility] Indications: Type 2 diabetes mellitus with complication, with long-term current use of insulin (HCC) 1 Each four times daily. Dx: E11.9. Insulin: yes 1 Each 01/17/2018 Active Start: 01-17-2018 Blood-Glucose Meter (RELION PRIME METER) [facility] Indications: Type 2 diabetes mellitus with complication, [...] mg PO and acetaminophen [address] [place]. [address] mL 02/05/2024 02/05/2024 Discontinued 3 ml insulin [...] complication, with long-term current use of insulin ([facility]) Sliding scale 151-200, give 1 [...] complication, with long-term current use of insulin ([facility]) Inject 27 Units subcutaneously every [...] mg by mo [facility] every twelve hours as needed for [...] Test Name Value Interpretation Reference Range Facility [facility] 11-11-2024 CNOV Office Visit (NNST ) ROMAIN MCDERMOTT ([id number]) 1940 F Date Time Provider Department 11/11/24 12:00 PM [facility]EN [facility] straightening out slightly. She mentions that a fabric sourcer advised against surgery due to her age. Romain is currently receiving IVIG therapy at [facility], which began with five days [...] syndrome Confirmed with qulitative and quantitative testing (camillus) demonstrating high ab titer som 65 lab [...] 2g/kg IBW) Fax order to Madelaine at [facility] at [phone] RTC 6 months Windy Yuen MD 11/11/2024 12:38 PM Signed - Continue your IVIG infusions at [facility] as before, with three consecutive treatment [...] the year. Please call my office at [phone] if you need help coordinating your care. [...] 1050 mLRfl: 5 PROVIDER ORDERED FOLLOW UP [[id number]] Order #: [id number]: 1 FUTURE Prescriptions as of 11/11/2024 - LANTUS SOLOSTAR U-100 INSULIN 100 unit/mL (3 mL) - immune globulin (human) (IgG) 35 g in empty bag Total Volume 350 mL (GAMMAGARD) Inject 350 mL intrave (more content not included)... [facility] ([facility]) ROMAIN MCDERMOTT ([id number]) 1940 F Date Time Provider Department 02/06/24 WINDY YUEN [facility] During your visit today, we recorded the following information about you: Kellen Duran LPN 02/06/2024 8:05 AM Signed IVIG order was faxed to Madelaine at [facility] at [phone] with confirmation. Kellen Duran LPN 02/12/2024 2:00 PM Signed [facility] needed clarification to the IVIG order that was previously sent, completed by Dr. Yuen and re-faxed to them at [phone] with confirmation. Allergies As of Date: 02/06/2024 (No Known Allergies) Date Reviewed: 02/05/2024 Reviewed by: Shira Hager LPN - Fully Assessed Reason for Visit: Orders [101] Cmt: IVIG Prescriptions as of 02/12/2024 - [...] Encounter Status:Closed by KELLEN DURAN on 02/06/24 [facility] CNOVon 02-05-2024 CNOV Office Visit (NNSTFM ) BALDEMARROMAIN Marylou ([id number]) 1940 F Date Time Provider Department 02/05/24 [...] syndrome Confirmed with qulitative and quantitative testing (camillus) demonstrating high ab titer som 65 lab [...] 2g/kg IBW) Fax order to Madelaine at [facility] at [phone] RTC 6 months Allergies As of Date: [...] included)... [facility] ROMAIN MCDERMOTT ([id number]) 1940 F Date Time Provider Department 11/24/23 WINDY YUEN [facility] During your visit today, we recorded the following information about you: Naif aOtes 11/24/2023 3:16 PM Signed Patient's appointment changed from 12/17/23 to 02/05/[address] Yuen being out of the office. Appointment details faxed as requested by daughter, Nyla, so patient will have transportation for appointment. Faxed to [facility]: [phone] Confirmation ok. Allergies As of Date: 11/24/2023 (No Known Allergies) Date Reviewed: 07/31/2023 Reviewed by: Shruthi Soliz LPN - Fully Assessed Reason for Visit: Appointment [186] Cmt: Update faxed to [facility] for appointment 02/05/24 Prescriptions as of [...] Status:Closed by NAIF OATES on 11/24/23 Normal [facility] Glucose Glucometer (BldC) [M ass/Vol]on 04-29-2022 Glucose [Mass/Vol] 94 mg/dL 74-106 [facility] Work Phone: Comment on above: MANAGEMENT OF PATIEN T CARE PER NURSING PROTOCOL Absolute lymphocyte counton 04-28-2022 Lymphocytes Auto (Unsp spec) [#/Vol] 2.37 10*3/uL 0.83-4.51 [facility] Work Phone: Basophil percentageon 2021 Basophils/100 WBC (Bld) 0.3 % 0-1 [facility] Work Phone: Chloride [Moles/Vol] 102 mmol/L 98-107 [facility] Work Phone: Eosinophils/100 WBC (Bld) 0.1 % 0-5 [facility] Work Phone: Glucose [Mass/Vol] 112 mg/dL 74-106 [facility] Work Phone: Comment on above: Fasting Glucose resu lt from 100 to 125 mg/dL suggests IMPAIRED HOMEOSTASIS per A.D.A. criteria. Neutrophils (Bld) [#/Vol] 8.6 10*3/uL 2.0-7.7 [facility] Work Phone: Neutrophils/100 WBC (Bld) 74.7 % 47-70 [facility] Work Phone: Potassium [Moles/Vol] 5.4 mmol/L 3.5-5.1 [facility] Work Phone: Sodium [Moles/Vol] 137 mmol/L 136-145 [facility] Work Phone: WBC (Bld) [#/Vol] 11.5 10*3/uL 4.4-11.0 [facility] Work Phone: Blood erythrocytes count (nu mber/volume)on 04-28-2022 RBC (Bld) [#/Vol] 4.65 10*6/uL 4.2-5.4 [facility] Work Phone: Blood hemoglobin measurement (mass/volume)on 04-28-2022 Hemoglobin (Bld) [Mass/Vol] 13.2 g/dL 12.0-15.0 [facility] Work Phone: Blood lymphocytes/100 leukoc yteson 04-28-2022 Lymphocytes/100 WBC (Bld) 20.6 % 19-41 [facility] Work Phone: Blood monocytes/100 leukocyt eson 04-28-2022 Monocytes/100 WBC (Bld) 3.0 % 0-10 [facility] Work Phone: Blood platelet mean volumeon 04-28-2022 Platelet mean volume (Bld) [Entitic vol] 9.7 fL 6.2-12.0 [facility] Work Phone: Determination of erythrocyte mean corpuscular volume (MCV)on 04-28-2022 MCV (RBC) [Entitic vol] 88.8 fL 81-99 [facility] Work Phone: Hematocrit Auto (Bld) [Volum e fraction]on 04-28-2022 Hematocrit (Bld) [Volume fraction] 41.3 % 37-47 [facility] Work Phone: Laboratory - Chemistry and C hemistry - challengeon 04-28-2022 CO2 [Moles/Vol] 31.0 mmol/L 21.0-32.0 [facility] Work Phone: Magnesium [Mass/Vol] 2.0 mg/dL 1.6-2.6 [facility] Work Phone: Urea nitrogen/Creatinine [Mass ratio] 33.5 mg/mg 10-20 [facility] Work Phone: Laboratory - Hematology and Cell countson 04-28-2022 Erythrocyte distribution width (RBC) [Entitic vol] 44.3 fL 35.1-43.9 [facility] Work Phone: Erythrocyte distribution width (RBC) [Ratio] 13.6 % 11.6-14.6 [facility] Work Phone: Immature granulocytes/100 WBC (Bld) 1.300 % 0.0-0.9 [facility] Work Phone: Comment on above: IG% - Immature Granu locytes (promyelocytes, myelocytes and metamyelocytes) > 1% indicates that a LEFT SHIFT is Present. MCH (RBC) [Entitic mass] 28.4 pg 27.0-32.0 [facility] Work Phone: Nucleated RBC/100 WBC (Bld) [Ratio] 0 % 0-5 [facility] Work Phone: MCHC Auto (RBC) [Mass/Vol]on 04-28-2022 MCHC (RBC) [Mass/Vol] 32.0 g/dL 32-36 [facility] Work Phone: No Panel Informationon 04-28 Estimated Creatinine Clearance Calc 37.12 ml/min [facility] Work Phone: Estimated GFR (MDRD) Amer 118 mL/min >60 [facility] Work Phone: Comment on above: GFR Calc Estimated GFR (MDRD) Non-Af Amer 97 mL/min >60 [facility] Work Phone: Comment on above: Non- GFR Calc Platelets bldon 04-28-2022 Platelets (Bld) [#/Vol] 251 10*3/uL 150-450 [facility] Work Phone: Serum or plasma calcium roger urement (mass/volume)on 04-28-2022 Calcium [Mass/Vol] 9.3 mg/dL 8.5-10.1 [facility] Work Phone: Serum or plasma creatinine m easurement (mass/volume)on 04-28-2022 Creatinine [Mass/Vol] 0.63 mg/dL 0.55-1.02 [facility] Work Phone: Comment on above: The validity of the calculated GFR & GFRAA in patients over 70 years has not been determined. Clinical correlation is essential. Serum or plasma urea nitroge n measurement (mass/volume)on 04-28-2022 Urea nitrogen [Mass/Vol] 21 mg/dL 7-18 [facility] Work Phone: Thin prep Papanicolaou smear with manual screeningon 04-28-2022 Thin prep Papanicolaou smear with manual screening 4 5-15 [facility] Work Phone: XR Foot - right AP and Later al and obliqueon 04-19-2022 IMPRESSION: Unchanged deformity of the right foot, no acute bony process is identified. Car Rental Agent: YOBANY Transcribe Date/Time: Apr 19 2022 7:25A Dictated by : LESA MCLAUGHLIN MD This examination was interpreted and the report reviewed and electronically signed by: LESA MCLAUGHLIN MD on Apr 19 2022 7:27AM EST [facility] * * *Final Report* * * DATE OF EXAM: Apr 18 2022 3:07PM MDO 5337 - XR FOOT 3V AP/LAT/OBL RT / PROCEDURE REASON: [id number] * * * * Physician Interpretation * * * * HISTORY: RIGHT FOOT PAIN. Pain . TECHNIQUE: XR FOOT 3V AP/LAT/OBL RT Laterality: RIGHT Number of different views (projections): 3 COMPARISON: February 2018 RESULT: Equinovarus deformity again identified. Bones are osteoporotic unchanged. No fracture. Joint spaces are grossly maintained. [facility] * * *Final Report* * * DATE OF EXAM: Apr 18 2022 3:07PM MDO 5337 - XR FOOT 3V AP/LAT/OBL RT / PROCEDURE REASON: [id number] * * * * Physician Interpretation * * * * HISTORY: RIGHT FOOT PAIN. Pain . TECHNIQUE: XR FOOT 3V AP/LAT/OBL RT Laterality: RIGHT Number of different views (projections): 3 COMPARISON: February 2018 RESULT: Equinovarus deformity again identified. Bones are osteoporotic unchanged. No fracture. Joint spaces are grossly maintained. IMPRESSION IMPRESSION: Unchanged deformity of the right foot, no acute bony process is identified. Car Rental Agent: PSCB Transcribe Date/Time: Apr 19 2022 7:25A Dictated by : LESA MCLAUGHLIN MD This examination was interpreted and the report reviewed and electronically signed by: LESA MCLAUGHLIN MD on Apr 19 2022 7:27AM EST [facility] [place] [facility] XR Foot - right AP and Later al and obliqueOrdered By: Ccf Provider on 04-19-2022 [facility] [place] [facility] XR FOOT 3V AP/LAT/OBL RTon 06-18-2021 XR FOOT 3V AP/LAT/OBL RT * * *Final Report* * * DATE OF EXAM: Apr 18 2022 3:07PM JOSE ALBERTO 5337 - XR FOOT 3V AP/LAT/OBL RT / PROCEDURE REASON: [id number] * * * * Physician Interpretation * * * * HISTORY: RIGHT FOOT PAIN. Pain . TECHNIQUE: XR FOOT 3V AP/LAT/OBL RT Laterality: RIGHT Number of different views (projections): 3 COMPARISON: February 2018 RESULT: Equinovarus deformity again identified. Bones are osteoporotic unchanged. No fracture. Joint spaces are grossly maintained. IMPRESSION: Unchanged deformity of the right foot, no acute bony process is identified. Car Rental Agent: PSCB Transcribe Date/Time: Apr 19 2022 7:25A Dictated by : LESA MCLAUGHLIN MD This examination was interpreted and the report reviewed and electronically signed by: LESA MCLAUGHLIN MD on Apr 19 2022 7:27AM EST [id number] N [facility] XR Foot - right AP and Later al and obliqueon 04-18-2022 Radiology Study observation (narrative) [facility] URINE CULTURE,BACTERIALon URINE CULTURE,BACTERIAL PATIENT: ROMAIN MCDERMOTT [place]ATION[place] [facility] BILL#: [id number] : 44 AGE: SEX: F ORDERED BY: RG MENCHACA SOURCE: URINE COLLECTED: 03/12/22 13:05 ANTIBIOTICS AT [place].: RECEIVED : 03/13/22 23:52 SITE: Clean Catch/Voided R E S U L T S URINE CULTURE,BACTERIAL FINAL 03/14/22 18:39 MULTIPLE ORGANISMS PRESENT, PROBABLE CONTAMINATION PLEASE REPEAT CULTURE. Normal [facility] Comment on above: Performed By: #### U [facility] #### [facility] [address] [place] [address] URINE CULTURE,BACTERIALon URINE CULTURE,BACTERIAL PATIENT: ROMAIN MCDERMOTT [place]ATION[place] [facility] BILL#: [id number] : 44 AGE: SEX: F ORDERED BY: RG MENCHACA SOURCE: URINE COLLECTED: 03/08/22 05:42 ANTIBIOTICS AT [place].: RECEIVED : 03/08/22 20:26 SITE: Unspecified R E S U L T S URINE CULTURE,BACTERIAL FINAL 03/09/22 12:43 MULTIPLE ORGANISMS PRESENT, PROBABLE CONTAMINATION PLEASE REPEAT CULTURE. Normal [facility] Comment on above: Performed By: #### U RINC #### [facility] [address] [place] [address] Absolute lymphocyte counton 03-01-2022 Lymphocytes Auto (Unsp spec) [#/Vol] 2.41 10*3/uL 0.83-4.51 [facility] Work Phone: Basophil percentageon 2021 Basophils/100 WBC (Bld) 0.5 % 0-1 [facility] Work Phone: Chloride [Moles/Vol] 101 mmol/L 98-107 [facility] Work Phone: Eosinophils/100 WBC (Bld) 1.7 % 0-5 [facility] Work Phone: Glucose [Mass/Vol] 237 mg/dL 74-106 [facility] Work Phone: Comment on above: Glucose result great er than or equal to 200 mg/dLsuggests DIABETES MELLITUS per A.D.A. criteria. Neutrophils (Bld) [#/Vol] 6.7 10*3/uL 2.0-7.7 [facility] Work Phone: Neutrophils/100 WBC (Bld) 66.4 % 47-70 [facility] Work Phone: Potassium [Moles/Vol] 4.4 mmol/L 3.5-5.1 [facility] Work Phone: Sodium [Moles/Vol] 136 mmol/L 136-145 [facility] Work Phone: WBC (Bld) [#/Vol] 10.0 10*3/uL 4.4-11.0 [facility] Work Phone: Blood erythrocytes count (nu mber/volume)on 03-01-2022 RBC (Bld) [#/Vol] 4.90 10*6/uL 4.2-5.4 [facility] Work Phone: Blood hemoglobin measurement (mass/volume)on 03-01-2022 Hemoglobin (Bld) [Mass/Vol] 14.0 g/dL 12.0-15.0 [facility] Work Phone: Blood lymphocytes/100 leukoc yteson 03-01-2022 Lymphocytes/100 WBC (Bld) 24.0 % 19-41 [facility] Work Phone: Blood monocytes/100 leukocyt eson 03-01-2022 Monocytes/100 WBC (Bld) 6.6 % 0-10 [facility] Work Phone: Blood platelet mean volumeon 03-01-2022 Platelet mean volume (Bld) [Entitic vol] 10.1 fL 6.2-12.0 [facility] Work Phone: Determination of erythrocyte mean corpuscular volume (MCV)on 03-01-2022 MCV (RBC) [Entitic vol] 86.9 fL 81-99 [facility] Work Phone: Hematocrit Auto (Bld) [Volum e fraction]on 03-01-2022 Hematocrit (Bld) [Volume fraction] 42.6 % 37-47 [facility] Work Phone: Laboratory - Chemistry and C hemistry - challengeon 03-01-2022 CO2 [Moles/Vol] 27.0 mmol/L 21.0-32.0 [facility] Work Phone: Urea nitrogen/Creatinine [Mass ratio] 23.0 mg/mg 10-20 [facility] Work Phone: Laboratory - Hematology and Cell countson 03-01-2022 Erythrocyte distribution width (RBC) [Entitic vol] 44.4 fL 35.1-43.9 [facility] Work Phone: Erythrocyte distribution width (RBC) [Ratio] 13.8 % 11.6-14.6 [facility] Work Phone: Immature granulocytes/100 WBC (Bld) 0.800 % 0.0-0.9 [facility] Work Phone: Comment on above: IG% - Immature Granu locytes (promyelocytes, myelocytes and metamyelocytes) > 1% indicates that a LEFT SHIFT is Present. MCH (RBC) [Entitic mass] 28.6 pg 27.0-32.0 [facility] Work Phone: Nucleated RBC/100 WBC (Bld) [Ratio] 0 % 0-5 [facility] Work Phone: MCHC Auto (RBC) [Mass/Vol]on 03-01-2022 MCHC (RBC) [Mass/Vol] 32.9 g/dL 32-36 [facility] Work Phone: No Panel Informationon 03-01 Estimated Creatinine Clearance Calc 37.74 ml/min [facility] Work Phone: Estimated GFR (MDRD) Amer 69 mL/min >60 [facility] Work Phone: Comment on above: GFR Calc Estimated GFR (MDRD) Non-Af Amer 57 mL/min >60 [facility] Work Phone: Comment on above: Non- GFR Calc Platelets bldon 03-01-2022 Platelets (Bld) [#/Vol] 228 10*3/uL 150-450 [facility] Work Phone: Serum or plasma acetone roger urement (mass/volume)on 03-01-2022 Acetone [Mass/Vol] Negative NEG [facility] Work Phone: Serum or plasma calcium roger urement (mass/volume)on 03-01-2022 Calcium [Mass/Vol] 10.1 mg/dL 8.5-10.1 [facility] Work Phone: Serum or plasma creatinine m easurement (mass/volume)on 03-01-2022 Creatinine [Mass/Vol] 1.00 mg/dL 0.55-1.02 [facility] Work Phone: Comment on above: The validity of the calculated GFR & GFRAA in patients over 70 years has not been determined. Clinical correlation is essential. Serum or plasma urea nitroge n measurement (mass/volume)on 03-01-2022 Urea nitrogen [Mass/Vol] 23 mg/dL 7-18 [facility] Work Phone: Thin prep Papanicolaou smear with manual screeningon 03-01-2022 Thin prep Papanicolaou smear with manual screening 8 5-15 [facility] Work Phone: C peptide SerPl-mCncon 11-15 C peptide [Mass/Vol] <0.20 Low 0.81-3.85 [facility] Comment on above: Order Comment: Malini solorio Type: BLOOD SPECIMEN Ordering Facility: [facility] Address: [address] [place] [address] Result Comment: Resu lt rechecked. Performed By: #### 1 986-9 #### [facility] CLIA [id number] [address] [place] [address] [place] GAD65 Ab Ser-aCncon 11-16-19 22 Glutamate decarboxylase 65 Ab Qn (S) >120.0 High <=5.0 [facility] Comment on above: Order Comment: Malini solorio Type: BLOOD SPECIMEN Ordering Facility: [facility] Address: [address] [place] [address] Result Comment: Anti -glutamic acid decarboxylase antibody [...] is required. Performed By: #### I NSLAB, 71891-4 #### [facility] CLIA [id number] [address] [place] [address] [place] GLUCOSE RANDOM BLDon 022 Glucose [Mass/Vol] 94 mg/dL 74 - 99 mg/dL [facility] Glucose SerPl-mCncon 022 Glucose [Mass/Vol] 94 mg/dL Normal 74-99 [facility] Comment on above: Order Comment: Malini solorio Type: BLOOD SPECIMEN Ordering Facility: [facility] Address: [address] [place], [place] [id number] Result Comment: The [place] Diabetes Association (ADA) provides guidance for cutoff [...] Standards of Medical Care in Diabetes 2016, [place] [employer]. Diabetes Care. 2016.39(Suppl 1). Performed By: #### 2 345-7, 3016-3 #### [facility] CLIA [id number] [address] [place] [address] [place] Glutamate decarboxylase 65 A b Qn (S)on 11-15-2021 GLUTAMIC ACID DECARBOXYLAS AB QUALITATIVE Positive Abnormal Negative [facility] Comment on above: Order Comment: Malini solorio Type: BLOOD SPECIMEN Ordering Facility: [facility] Address: [address] [place], [place] [id number] Performed By: #### I NSLAB, 95233-2 #### [facility] CLIA [id number] [address] [place] [id number] [place] [address] [place] HEMOGLOBIN A1C (POC)on 11-15 HbA1c (Bld) [Mass fraction] 8.1 % Abnormal 4.2 - 5.6 % [facility] INSULIN ANTIBODY BLDon 11-15 Insulin Ab Qn (S) <0.4 Normal <0.4 [facility] Comment on above: Order Comment: Malini solorio Type: BLOOD SPECIMEN Ordering Facility: [facility] Address: [address] [place] [id number] Result Comment: Anti -insulin antibody test is used as an aid in diagnosis and prognosis of autoimmune diabetes mellitus in combination with other tests such as anti-GAD65 and anti-IA-2 antibody. A single negative result cannot rule out autoimmune diabetes mellitus. The test is not reliable in patients who had previously received exogenous insulin. Clinical correlation is required. Performed By: #### I NSLAB, 60266-4 #### [facility] CLIA [id number] [address] [place] [address] [place] INSULIN ANTIBODY, QUALITATIVE Negative Normal Negative [facility] Comment on above: Order Comment: Specbailey men Type: BLOOD SPECIMEN Ordering Facility: [facility] Address: [address] [place] [address] Performed By: #### I NSLAB, 32237-4 #### [facility] CLIA [id number] [address] [place] [address] [place] INSULINOMA ASSOCIATED ANTIBO DY 2on 11-15-2021 IA 2 ANTIBODY BLOOD <5.4 Normal <7.5 [facility] Comment on above: Order Comment: Malini solorio Type: BLOOD SPECIMEN Ordering Facility: [facility] Address: [address] [place] [address] Result Comment: Anti -insulinoma associated antigen 2 (IA-2) antibody test is used as an aid in diagnosis of type I diabetes mellitus, to predict the risk of progression to type I diabetes mellitus among susceptible individuals, and to predict the necessity of insulin therapy in adult-onset diabetes mellitus. Clinical correlation is required. Performed By: #### I A2AB #### [facility] CLIA [id number] [address] [place] [address] [place] ISLET CELL ABon 11-15-2021 ISLET CELL AB <1:4 Normal <1:4 [facility] Comment on above: Order Comment: Malini solorio Type: BLOOD SPECIMEN Ordering Facility: [facility] Address: [address] [place] [address] Result Comment: INTE RPRETIVE INFORMATION: Islet Cell [...] developed and its performance characteristics determined by [facility]. It has not been cleared or approved by the [place] Food and Drug Administration. This test was performed in a CLIA certified laboratory and is intended for clinical purposes. Performed By: [facility] [address] [place] [address] Home Care Nurse: Abdirizak Quintana MD, PhD Performed By: #### I SLET #### [facility] CLIA [id number] [address] [place] [address] T4 Free SerPl-mCncon 022 Free T4 [Mass/Vol] 1.9 ng/dL High 0.9-1.7 [facility] Comment on above: Order Comment: Speci lyndsey Type: BLOOD SPECIMEN Ordering Facility: [facility] Address: [address] [place] [address] Performed By: #### 3 024-7 #### [facility] CLIA [id number] [address] [place] [address] [place] TSH BLDon 11-15-2021 TSH Qn 0.073 m[IU]/L Low 0.270 - 4.200 mIU/L [facility] [facility] 11-15-2021 TSH Qn 0.073 m[IU]/L Low 0.270-4.200 [facility] Comment on above: Order Comment: Malini solorio Type: BLOOD SPECIMEN Ordering Facility: [facility] Address: [address] [place] [address] Performed By: #### 2 [id number], [id number] #### [facility] CLIA [id number] [address] [place] [address] [place] Absolute lymphocyte counton 08-30-2021 Lymphocytes Auto (Unsp spec) [#/Vol] 2.76 10*3/uL 0.83-4.51 [facility] Work Phone: Basophil percentageon 2021 Basophils/100 WBC (Bld) 0.5 % 0-1 [facility] Work Phone: Chloride [Moles/Vol] 104 mmol/L 98-107 [facility] Work Phone: Eosinophils/100 WBC (Bld) 1.3 % 0-5 [facility] Work Phone: Glucose [Mass/Vol] 205 mg/dL 74-106 [facility] Work Phone: Comment on above: Glucose result great er than or equal to 200 mg/dLsuggests DIABETES MELLITUS per A.D.A. criteria. Neutrophils (Bld) [#/Vol] 10.9 10*3/uL 2.0-7.7 [facility] Work Phone: Neutrophils/100 WBC (Bld) 70.9 % 47-70 [facility] Work Phone: Potassium [Moles/Vol] 4.2 mmol/L 3.5-5.1 [facility] Work Phone: Sodium [Moles/Vol] 138 mmol/L 136-145 [facility] Work Phone: WBC (Bld) [#/Vol] 15.4 10*3/uL 4.4-11.0 [facility] Work Phone: Blood erythrocytes count (nu mber/volume)on 08-30-2021 RBC (Bld) [#/Vol] 4.32 10*6/uL 4.2-5.4 [facility] Work Phone: Blood hemoglobin measurement (mass/volume)on 08-30-2021 Hemoglobin (Bld) [Mass/Vol] 12.9 g/dL 12.0-15.0 [facility] Work Phone: Blood lymphocytes/100 leukoc yteson 08-30-2021 Lymphocytes/100 WBC (Bld) 18.0 % 19-41 [facility] Work Phone: Blood monocytes/100 leukocyt eson 08-30-2021 Monocytes/100 WBC (Bld) 7.5 % 0-10 [facility] Work Phone: Blood platelet mean volumeon 08-30-2021 Platelet mean volume (Bld) [Entitic vol] 10.7 fL 6.2-12.0 [facility] Work Phone: Determination of erythrocyte mean corpuscular volume (MCV)on 08-30-2021 MCV (RBC) [Entitic vol] 88.0 fL 81-99 [facility] Work Phone: Hematocrit Auto (Bld) [Volum e fraction]on 08-30-2021 Hematocrit (Bld) [Volume fraction] 38.0 % 37-47 [facility] Work Phone: Laboratory - Chemistry and C hemistry - challengeon 08-30-2021 CO2 [Moles/Vol] 26.0 mmol/L 21.0-32.0 [facility] Work Phone: Urea nitrogen/Creatinine [Mass ratio] 20.2 mg/mg 10-20 [facility] Work Phone: Laboratory - Hematology and Cell countson 08-30-2021 Erythrocyte distribution width (RBC) [Entitic vol] 46.1 fL 35.1-43.9 [facility] Work Phone: Erythrocyte distribution width (RBC) [Ratio] 14.4 % 11.6-14.6 [facility] Work Phone: Immature granulocytes/100 WBC (Bld) 1.800 % 0.0-0.9 [facility] Work Phone: Comment on above: IG% - Immature Granu locytes (promyelocytes, myelocytes and metamyelocytes) > 1% indicates that a LEFT SHIFT is Present. MCH (RBC) [Entitic mass] 29.9 pg 27.0-32.0 [facility] Work Phone: Nucleated RBC/100 WBC (Bld) [Ratio] 0 % 0-5 [facility] Work Phone: MCHC Auto (RBC) [Mass/Vol]on 08-30-2021 MCHC (RBC) [Mass/Vol] 33.9 g/dL 32-36 [facility] Work Phone: No Panel Informationon 08-30 Estimated Creatinine Clearance Calc 27.76 ml/min [facility] Work Phone: Estimated GFR (MDRD) Amer 54 mL/min >60 [facility] Work Phone: Comment on above: GFR Calc Estimated GFR (MDRD) Non-Af Amer 44 mL/min >60 [facility] Work Phone: Comment on above: Non- GFR Calc Platelets bldon 08-30-2021 Platelets (Bld) [#/Vol] 236 10*3/uL 150-450 [facility] Work Phone: Serum or plasma calcium roger urement (mass/volume)on 08-30-2021 Calcium [Mass/Vol] 9.5 mg/dL 8.5-10.1 [facility] Work Phone: Serum or plasma creatinine m easurement (mass/volume)on 08-30-2021 Creatinine [Mass/Vol] 1.24 mg/dL 0.55-1.02 [facility] Work Phone: Comment on above: The validity of the calculated GFR & GFRAA in patients over 70 years has not been determined. Clinical correlation is essential. Serum or plasma urea nitroge n measurement (mass/volume)on 08-30-2021 Urea nitrogen [Mass/Vol] 25 mg/dL 7-18 [facility] Work Phone: Thin prep Papanicolaou smear with manual screeningon 08-30-2021 Thin prep Papanicolaou smear with manual screening 8 5-15 [facility] Work Phone: Absolute lymphocyte counton 08-19-2021 Lymphocytes Auto (Unsp spec) [#/Vol] 2.66 10*3/uL 0.83-4.51 [facility] Work Phone: Basophil percentageon 2021 Chloride [Moles/Vol] 108 mmol/L 98-107 [facility] Work Phone: Glucose [Mass/Vol] 86 mg/dL 74-106 [facility] Work Phone: Potassium [Moles/Vol] 3.6 mmol/L 3.5-5.1 [facility] Work Phone: Sodium [Moles/Vol] 137 mmol/L 136-145 [facility] Work Phone: Basophils/100 WBC (Bld) 0.4 % 0-1 [facility] Work Phone: Eosinophils/100 WBC (Bld) 0.4 % 0-5 [facility] Work Phone: Neutrophils (Bld) [#/Vol] 6.8 10*3/uL 2.0-7.7 [facility] Work Phone: Neutrophils/100 WBC (Bld) 66.0 % 47-70 [facility] Work Phone: WBC (Bld) [#/Vol] 10.3 10*3/uL 4.4-11.0 [facility] Work Phone: Blood erythrocytes count (nu mber/volume)on 08-19-2021 RBC (Bld) [#/Vol] 3.91 10*6/uL 4.2-5.4 [facility] Work Phone: Blood hemoglobin measurement (mass/volume)on 08-19-2021 Hemoglobin (Bld) [Mass/Vol] 11.3 g/dL 12.0-15.0 [facility] Work Phone: Blood lymphocytes/100 leukoc yteson 08-19-2021 Lymphocytes/100 WBC (Bld) 25.9 % 19-41 [facility] Work Phone: Blood monocytes/100 leukocyt eson 08-19-2021 Monocytes/100 WBC (Bld) 6.9 % 0-10 [facility] Work Phone: Blood platelet mean volumeon 08-19-2021 Platelet mean volume (Bld) [Entitic vol] 11.1 fL 6.2-12.0 [facility] Work Phone: Determination of erythrocyte mean corpuscular volume (MCV)on 08-19-2021 MCV (RBC) [Entitic vol] 85.9 fL 81-99 [facility] Work Phone: Glucose Glucometer (BldC) [M ass/Vol]on 08-19-2021 Glucose [Mass/Vol] 252 mg/dL 74-106 [facility] Work Phone: Comment on above: MANAGEMENT OF PATIEN T CARE PER NURSING PROTOCOL Hematocrit Auto (Bld) [Volum e fraction]on 08-19-2021 Hematocrit (Bld) [Volume fraction] 33.6 % 37-47 [facility] Work Phone: Laboratory - Chemistry and C hemistry - challengeon 08-19-2021 CO2 [Moles/Vol] 23.0 mmol/L 21.0-32.0 [facility] Work Phone: Urea nitrogen/Creatinine [Mass ratio] 24.0 mg/mg 10-20 [facility] Work Phone: Laboratory - Hematology and Cell countson 08-19-2021 Erythrocyte distribution width (RBC) [Entitic vol] 44.3 fL 35.1-43.9 [facility] Work Phone: Erythrocyte distribution width (RBC) [Ratio] 14.1 % 11.6-14.6 [facility] Work Phone: Immature granulocytes/100 WBC (Bld) 0.400 % 0.0-0.9 [facility] Work Phone: Comment on above: IG% - Immature Granu locytes (promyelocytes, myelocytes and metamyelocytes) > 1% indicates that a LEFT SHIFT is Present. MCH (RBC) [Entitic mass] 28.9 pg 27.0-32.0 [facility] Work Phone: Nucleated RBC/100 WBC (Bld) [Ratio] 0 % 0-5 [facility] Work Phone: MCHC Auto (RBC) [Mass/Vol]on 08-19-2021 MCHC (RBC) [Mass/Vol] 33.6 g/dL 32-36 [facility] Work Phone: No Panel Informationon 08-19 Estimated Creatinine Clearance Calc 34.42 ml/min [facility] Work Phone: Estimated GFR (MDRD) Amer 102 mL/min >60 [facility] Work Phone: Comment on above: GFR Calc Estimated GFR (MDRD) Non-Af Amer 84 mL/min >60 [facility] Work Phone: Comment on above: Non- GFR Calc Platelets bldon 08-19-2021 Platelets (Bld) [#/Vol] 160 10*3/uL 150-450 [facility] Work Phone: Serum or plasma calcium roger urement (mass/volume)on 08-19-2021 Calcium [Mass/Vol] 8.3 mg/dL 8.5-10.1 [facility] Work Phone: Serum or plasma creatinine m easurement (mass/volume)on 08-19-2021 Creatinine [Mass/Vol] 0.71 mg/dL 0.55-1.02 [facility] Work Phone: Comment on above: The validity of the calculated GFR & GFRAA in patients over 70 years has not been determined. Clinical correlation is essential. Serum or plasma urea nitroge n measurement (mass/volume)on 08-19-2021 Urea nitrogen [Mass/Vol] 17 mg/dL 7-18 [facility] Work Phone: Thin prep Papanicolaou smear with manual screeningon 08-19-2021 Thin prep Papanicolaou smear with manual screening 6 5-15 [facility] Work Phone: Absolute lymphocyte counton 08-18-2021 Lymphocytes Auto (Unsp spec) [#/Vol] 2.55 10*3/uL 0.83-4.51 [facility] Work Phone: Basophil percentageon 2021 Chloride [Moles/Vol] 103 mmol/L 98-107 [facility] Work Phone: Glucose [Mass/Vol] 314 mg/dL 74-106 [facility] Work Phone: Comment on above: Glucose result great er than or equal to 200 mg/dLsuggests DIABETES MELLITUS per A.D.A. criteria. Potassium [Moles/Vol] 6.1 mmol/L 3.5-5.1 [facility] Work Phone: Comment on above: Slight Hemolysis, Re sult may be falsely increased. Critical Result(s) Called at: 20:20:17 08/18/2021 by: Porsha mckenzie [facility] Results read back by same. Sodium [Moles/Vol] 133 mmol/L 136-145 [facility] Work Phone: Basophil percentage 0 SEEN /hpf [facility] Work Phone: Basophils/100 WBC (Bld) 0.3 % 0-1 [facility] Work Phone: Bilirubin [Mass/Vol] 0.90 mg/dL 0.20-1.00 [facility] Work Phone: Comment on above: For patients on eltr ombopag therapy, use of Dimension [place] TBIL is not recommended. Eosinophils/100 WBC (Bld) 0.0 % 0-5 [facility] Work Phone: Neutrophils (Bld) [#/Vol] 9.2 10*3/uL 2.0-7.7 [facility] Work Phone: Neutrophils/100 WBC (Bld) 74.2 % 47-70 [facility] Work Phone: Protein [Mass/Vol] 7.7 g/dL 6.4-8.2 [facility] Work Phone: WBC (Bld) [#/Vol] 12.4 10*3/uL 4.4-11.0 [facility] Work Phone: Bilirubin Test strip Ql (U)o n 08-18-2021 Bilirubin Ql (U) Negative Negative [facility] Work Phone: Blood erythrocytes count (nu mber/volume)on 08-18-2021 RBC (Bld) [#/Vol] 4.91 10*6/uL 4.2-5.4 [facility] Work Phone: Blood hemoglobin measurement (mass/volume)on 08-18-2021 Hemoglobin (Bld) [Mass/Vol] 14.3 g/dL 12.0-15.0 [facility] Work Phone: Blood lymphocytes/100 leukoc yteson 08-18-2021 Lymphocytes/100 WBC (Bld) 20.6 % 19-41 [facility] Work Phone: Blood monocytes/100 leukocyt eson 08-18-2021 Monocytes/100 WBC (Bld) 4.1 % 0-10 [facility] Work Phone: Blood platelet mean volumeon 08-18-2021 Platelet mean volume (Bld) [Entitic vol] 10.9 fL 6.2-12.0 [facility] Work Phone: Determination of erythrocyte mean corpuscular volume (MCV)on 08-18-2021 MCV (RBC) [Entitic vol] 86.4 fL 81-99 [facility] Work Phone: Glucose Glucometer (BldC) [M ass/Vol]on 08-18-2021 Glucose [Mass/Vol] 276 mg/dL 74-106 [facility] Work Phone: Comment on above: MANAGEMENT OF PATIEN T CARE PER NURSING PROTOCOL HCO3 (BldA) [Moles/Vol]on HCO3 (Bld) [Moles/Vol] 19 mmol/L 22-26 [facility] Work Phone: Hematocrit Auto (Bld) [Volum e fraction]on 08-18-2021 Hematocrit (Bld) [Volume fraction] 42.4 % 37-47 [facility] Work Phone: Hyaline casts LM.LPF (Urine sed) [#/Area]on 08-18-2021 Hyaline casts (Urine sed) [#/Area] 5 /[LPF] [facility] Work Phone: Ketones Test strip Ql (U)on 08-18-2021 Ketones Ql (U) 150 mg/dl Negative [facility] Work Phone: Comment on above: CRITICAL VALUE *HCRI TICAL VALUE VERIFIED. CALLED TO [id number] Porsha Mckenzie.RESULTS READ BACK BY SAME . Laboratory - Chemistry and C hemistry - challengeon 08-18-2021 CO2 [Moles/Vol] 19.0 mmol/L 21.0-32.0 [facility] Work Phone: Urea nitrogen/Creatinine [Mass ratio] 22.8 mg/mg 10-20 [facility] Work Phone: CO2 [Moles/Vol] 20 mmol/L 23-33 [facility] Work Phone: ALP [Catalytic activity/Vol] 105 U/L 45-117 [facility] Work Phone: ALT [Catalytic activity/Vol] 13 U/L 13-56 [facility] Work Phone: Globulin (S) [Mass/Vol] 3.7 g/dL 2.2-4.2 [facility] Work Phone: Laboratory - Hematology and Cell countson 08-18-2021 Erythrocyte distribution width (RBC) [Entitic vol] 43.5 fL 35.1-43.9 [facility] Work Phone: Erythrocyte distribution width (RBC) [Ratio] 13.7 % 11.6-14.6 [facility] Work Phone: Immature granulocytes/100 WBC (Bld) 0.800 % 0.0-0.9 [facility] Work Phone: Comment on above: IG% - Immature Granu locytes (promyelocytes, myelocytes and metamyelocytes) > 1% indicates that a LEFT SHIFT is Present. MCH (RBC) [Entitic mass] 29.1 pg 27.0-32.0 [facility] Work Phone: Nucleated RBC/100 WBC (Bld) [Ratio] 0 % 0-5 [facility] Work Phone: MCHC Auto (RBC) [Mass/Vol]on 08-18-2021 MCHC (RBC) [Mass/Vol] 33.7 g/dL 32-36 [facility] Work Phone: Mucus LM Ql (Urine sed)on Mucus Ql (Urine sed) 0 SEEN /hpf [facility] Work Phone: Nitrite Test strip Ql (U)on 08-18-2021 Nitrite Ql (U) Negative Negative [facility] Work Phone: No Panel Informationon 08-18 Estimated Creatinine Clearance Calc 28.41 ml/min [facility] Work Phone: Estimated GFR (MDRD) Amer 52 mL/min >60 [facility] Work Phone: Comment on above: GFR Calc Estimated GFR (MDRD) Non-Af Amer 43 mL/min >60 [facility] Work Phone: Comment on above: Non- GFR Calc Bed Mix Venous Bld PCO2 at Pat Temp 42.1 mmHg 41-51 [facility] Work Phone: Blood Gas Specimen Type CATHY [facility] Work Phone: Venous Blood Base Excess -8 mmol/L -1.0-3.5 [facility] Work Phone: PO2 venouson 08-18-2021 Oxygen (BldV) [Partial pressure] 22 mm[Hg] 25-40 [facility] Work Phone: Platelets bldon 08-18-2021 Platelets (Bld) [#/Vol] 229 10*3/uL 150-450 [facility] Work Phone: Protein Test strip Ql (U)on 08-18-2021 Protein Ql (U) 30 mg/dl Negative [facility] Work Phone: Serum or plasma acetone roger urement (mass/volume)on 08-18-2021 Acetone [Mass/Vol] MODERATE NEG [facility] Work Phone: Serum or plasma albumin roger urement (mass/volume)on 08-18-2021 Albumin [Mass/Vol] 4.0 g/dL 3.2-5.0 [facility] Work Phone: Serum or plasma albumin/glob ulin mass ratioon 08-18-2021 Albumin/Globulin [Mass ratio] 1.1 {ratio} 0.9-2.4 [facility] Work Phone: Serum or plasma calcium roger urement (mass/volume)on 08-18-2021 Calcium [Mass/Vol] 9.3 mg/dL 8.5-10.1 [facility] Work Phone: Serum or plasma creatinine m easurement (mass/volume)on 08-18-2021 Creatinine [Mass/Vol] 1.27 mg/dL 0.55-1.02 [facility] Work Phone: Comment on above: The validity of the calculated GFR & GFRAA in patients over 70 years has not been determined. Clinical correlation is essential. Serum or plasma urea nitroge n measurement (mass/volume)on 08-18-2021 Urea nitrogen [Mass/Vol] 29 mg/dL 7-18 [facility] Work Phone: Squamous epithelial cells de tection in urine sediment by light microscopyon 08-18-2021 Epithelial cells.squamous LM Ql (Urine sed) 0 SEEN /hpf [facility] Work Phone: Thin prep Papanicolaou smear with manual screeningon 08-18-2021 Thin prep Papanicolaou smear with manual screening 11 5-15 [facility] Work Phone: Thin prep Papanicolaou smear with manual screening 10 U/L 15-37 [facility] Work Phone: Urine blood detectionon 04-0 RBC Ql (U) Negative Negative [facility] Work Phone: RBC Ql (U) 0 SEEN /hpf [facility] Work Phone: Urine clarityon 08-18-2021 Clarity (U) Clear Clear [facility] Work Phone: Urine color determinationon 08-18-2021 Color (U) Yellow Yellow [facility] Work Phone: Urine glucose detectionon Glucose Ql (U) 1000 mg/dl Normal [facility] Work Phone: Urine leukocyte esterase det ection by dipstickon 08-18-2021 Leukocyte esterase Test strip Ql (U) Negative Negative [facility] Work Phone: Urine pHon 08-18-2021 pH (U) 5.0 [pH] [facility] Work Phone: Urine sediment bacteria coun t by microscopy (number/high power field)on 08-18-2021 Bacteria LM.HPF (Urine sed) [#/Area] 0 /[HPF] None Seen [facility] Work Phone: Urine specific gravity measu rementon 08-18-2021 Specific gravity (U) [Rel density] 1.025 [facility] Work Phone: Urobilinogen Auto test strip Ql (U)on 08-18-2021 Urobilinogen Ql (U) Normal mg/dl Normal [facility] Work Phone: Vital signson 08-18-2021 Oxygen saturation in Blood 30 % 50-70 [facility] Work Phone: Whole blood hemoglobin A1c/t otal hemoglobin ratio (mass fraction)on 08-18-2021 HbA1c (Bld) [Mass fraction] 9.4 % 3.8-5.6 [facility] Work Phone: Comment on above: Normal < 5.7 % Predi abetic 5.7 - 6.4 % Diabetic >or= 6.5 % Please note range changes. pH measurementon 08-18-2021 pH (Unsp spec) 7.26 [pH] 7.32-7.42 [facility] Work Phone: Influenza virus A and B and SARS-CoV-2 (COVID-19) Ag panel - Upper respiratory specim SARS-CoV-2 (COVID-19) RNA SHABANA+probe Ql (Resp) [facility] Work Phone: Vital Signs Date Time Vital Sign Value Performing Clinician Faci lity 03-04-2025 08:30-0400 Body height 160.[address] Rg Menchaca MD Work Phone: [facility] 03-04-2025 08:30-0400 Body mass index (BMI) [Ratio] 24 kg/m2 Dr. Rg Menchaca MD Work Phone: [facility] 03-04-2025 08:30-0400 Body temperature 96.9 [degF] Dr. Rg Menchaca MD Work Phone: [facility] 03-04-2025 08:30-0400 Body weight 61.[address] Rg Menchaca MD Work Phone: [facility] 03-04-2025 08:30-0400 Diastolic blood pressure 71 mm[Hg] Dr. Rg Menchaca MD Work Phone: [facility] 03-04-2025 08:30-0400 Heart rate 84 /min Dr. Rg Menchaca MD Work Phone: [facility] 03-04-2025 08:30-0400 Respiratory rate 16 /min Dr. Rg Menchaca MD Work Phone: [facility] 03-04-2025 08:30-0400 SaO2% (BldA) [Mass fraction] 96 % Dr. Rg Menchaca MD Work Phone: [facility] 03-04-2025 08:30-0400 Systolic blood pressure 97 mm[Hg] Dr. Rg Menchaca MD Work Phone: [facility] 03-03-2025 08:08-0400 Body mass index (BMI) [Ratio] 24 kg/m2 Dr. Rg Menchaca MD Work Phone: 9(345)995-053831 [address] 03-03-2025 08:08-0400 Body temperature 97.3 [degF] Dr. Rg Menchaca MD Work Phone: 6(181)133-899534 [place] [address] 03-03-2025 08:08-0400 Body weight 61.[address] Rg Menchaca MD Work Phone: 1(674)652-652134 [place] [address] 03-03-2025 08:08-0400 Diastolic blood pressure 85 mm[Hg] Dr. Rg Menchaca MD Work Phone: 2(088)973-475234 [place] [address] 03-03-2025 08:08-0400 Heart rate 82 /min Dr. Rg Menchaca MD Work Phone: 9(056)948-792734 [place] [address] 03-03-2025 08:08-0400 Respiratory rate 16 /min Dr. Rg Menchaca MD Work Phone: 7(014)617-936334 [place] [address] 03-03-2025 08:08-0400 SaO2% (BldA) [Mass fraction] 96 % Dr. Rg Menchaca MD Work Phone: 5(864)951-465534 [place] [address] 03-03-2025 08:08-0400 Systolic blood pressure 98 mm[Hg] Dr. Rg Menchaca MD Work Phone: 8(954)576-264234 [place] [address] 03-02-2025 08:01-0400 Body mass index (BMI) [Ratio] 24 kg/m2 Dr. Rg Menchaca MD Work Phone: 6(405)846-731834 [place] [address] 03-02-2025 08:01-0400 Body temperature 96.9 [degF] Dr. Rg Menchaca MD Work Phone: 7(616)287-840834 [place] [address] 03-02-2025 08:01-0400 Body weight 61.[address] Rg Menchaca MD Work Phone: 2(551)152-174034 [place] [address] 03-02-2025 08:01-0400 Diastolic blood pressure 62 mm[Hg] Dr. Rg Menchaca MD Work Phone: 4(000)553-101934 [place] [address] 03-02-2025 08:01-0400 Heart rate 70 /min Dr. Rg Menchaca MD Work Phone: 5(804)346-493734 [place] [address] 03-02-2025 08:01-0400 Respiratory rate 16 /min Dr. Rg Menchaca MD Work Phone: [facility] 03-02-2025 08:01-0400 SaO2% (BldA) [Mass fraction] 70 % Dr. Rg Menchaca MD Work Phone: [facility] 03-02-2025 08:01-0400 Systolic blood pressure 92 mm[Hg] Dr. Rg Menchaca MD Work Phone: 1(445)298-741934 [place] [address] 02-04-2025 13:51-0400 Body temperature 96.8 [degF] Dr. Rg Menchaca MD Work Phone: 1(982)673-886034 [place] [address] 02-04-2025 13:51-0400 Diastolic blood pressure 62 mm[Hg] Dr. Rg Menchaca MD Work Phone: 0(991)942-033934 [place] [address] 02-04-2025 13:51-0400 Heart rate 62 /min Dr. Rg Menchaca MD Work Phone: 4(642)654-916231 [address] 02-04-2025 13:51-0400 Respiratory rate 16 /min Dr. Rg Menchaca MD Work Phone: 2(353)593-965831 [address] 02-04-2025 13:51-0400 SaO2% (BldA) [Mass fraction] 96 % Dr. Rg Menchaca MD Work Phone: 2(261)084-122931 [address] 02-04-2025 13:51-0400 Systolic blood pressure 110 mm[Hg] Dr. Rg Menchaca MD Work Phone: 7(898)640-070631 [address] 02-04-2025 08:28-0400 Body height 160.[address] Rg Menchaca MD Work Phone: 4(181)611-190031 [address] 02-04-2025 08:28-0400 Body mass index (BMI) [Ratio] 25.3 kg/m2 Dr. Rg Menchaca MD Work Phone: [facility] 02-04-2025 08:28-0400 Body weight 64.[address] Rg Menchaca MD Work Phone: 7(093)102-084131 [address] 02-03-2025 07:40-0400 Body height 160.[address] Rg Menchaca MD Work Phone: [facility] 02-03-2025 07:40-0400 Body mass index (BMI) [Ratio] 25.3 kg/m2 Dr. Rg Menchaca MD Work Phone: [facility] 02-03-2025 07:40-0400 Body temperature 96.8 [degF] Dr. Rg Menchaca MD Work Phone: 3(796)918-193131 [address] 02-03-2025 07:40-0400 Body weight 64.[address] Rg Menchaca MD Work Phone: 2(118)462-815334 [place] [address] 02-03-2025 07:40-0400 Diastolic blood pressure 67 mm[Hg] Dr. Rg Menchaca MD Work Phone: 1(236)845-771034 [place] [address] 02-03-2025 07:40-0400 Heart rate 71 /min Dr. Rg Menchaca MD Work Phone: 6(809)076-422934 [place] [address] 02-03-2025 07:40-0400 Respiratory rate 16 /min Dr. Rg Menchaca MD Work Phone: 7(955)684-882734 [place] [address] 02-03-2025 07:40-0400 SaO2% (BldA) [Mass fraction] 95 % Dr. Rg Menchaca MD Work Phone: 0(890)865-142731 [address] 02-03-2025 07:40-0400 Systolic blood pressure 112 mm[Hg] Dr. Rg Menchaca MD Work Phone: 4(105)977-609061 [place] [address] 02-02-2025 07:55-0400 Body height 160.[address] Rg Menchaca MD Work Phone: 3(168)318-222931 [address] 02-02-2025 07:55-0400 Body mass index (BMI) [Ratio] 25.3 kg/m2 Dr. Rg Menchaca MD Work Phone: [facility] 02-02-2025 07:55-0400 Body temperature 97 [degF] Dr. Rg Menchaca MD Work Phone: 6(602)478-355861 [place] [address] 02-02-2025 07:55-0400 Body weight 64.[address] Rg Menchaca MD Work Phone: [facility] 02-02-2025 07:55-0400 Diastolic blood pressure 67 mm[Hg] Dr. Rg Menchaca MD Work Phone: [facility] 02-02-2025 07:55-0400 Heart rate 80 /min Dr. Rg Menchaca MD Work Phone: 2(193)384-294134 [place] [address] 02-02-2025 07:55-0400 Respiratory rate 16 /min Dr. Rg Menchaca MD Work Phone: 2(438)388-232334 [place] [address] 02-02-2025 07:55-0400 SaO2% (BldA) [Mass fraction] 99 % Dr. Rg Menchaca MD Work Phone: 0(600)780-621134 [place] [address] 02-02-2025 07:55-0400 Systolic blood pressure 97 mm[Hg] Dr. Rg Menchaca MD Work Phone: 9(504)694-443434 [place] [address] 01-08-2025 07:50-0400 Body height 160.[address] Rg Menchaca MD Work Phone: 2(581)263-383734 [place] [address] 01-08-2025 07:50-0400 Body mass index (BMI) [Ratio] 25.4 kg/m2 Dr. Rg Menchaca MD Work Phone: 7(974)282-426834 [place] [address] 01-08-2025 07:50-0400 Body temperature 97.1 [degF] Dr. Rg Menchaca MD Work Phone: 9(218)276-749361 [place] [address] 01-08-2025 07:50-0400 Body weight 65.[address] Rg Menchaca MD Work Phone: 2(639)232-681334 [place] [address] 01-08-2025 07:50-0400 Diastolic blood pressure 70 mm[Hg] Dr. Rg Menchaca MD Work Phone: 1(539)860-654931 [address] 01-08-2025 07:50-0400 Heart rate 71 /min Dr. Rg Menchaca MD Work Phone: 3(905)816-136361 [place] [address] 01-08-2025 07:50-0400 Respiratory rate 16 /min Dr. Rg Menchaca MD Work Phone: [facility] 01-08-2025 07:50-0400 SaO2% (BldA) [Mass fraction] 96 % Dr. Rg Menchaca MD Work Phone: [facility] 01-08-2025 07:50-0400 Systolic blood pressure 122 mm[Hg] Dr. Rg Menchaca MD Work Phone: 7(187)827-083134 [place] [address] 01-07-2025 07:50-0400 Body height 160.[address] Rg Menchaca MD Work Phone: 4(263)244-571334 [place] [address] 01-07-2025 07:50-0400 Body mass index (BMI) [Ratio] 25.3 kg/m2 Dr. Rg Menchaca MD Work Phone: 9(977)180-577434 [place] [address] 01-07-2025 07:50-0400 Body temperature 96.7 [degF] Dr. Rg Menchaca MD Work Phone: 3(127)061-791534 [place] [address] 01-07-2025 07:50-0400 Body weight 64.[address] Rg Menchaca MD Work Phone: 5(964)341-251534 [place] [address] 01-07-2025 07:50-0400 Diastolic blood pressure 77 mm[Hg] Dr. Rg Menchaca MD Work Phone: 3(337)216-373534 [place] [address] 01-07-2025 07:50-0400 Heart rate 77 /min Dr. Rg Menchaca MD Work Phone: 5(083)862-465234 [place] [address] 01-07-2025 07:50-0400 Respiratory rate 16 /min Dr. Rg Menchaca MD Work Phone: 1(256)059-211131 [address] 01-07-2025 07:50-0400 SaO2% (BldA) [Mass fraction] 95 % Dr. Rg Menchaca MD Work Phone: 7(235)649-986334 [place] [address] 01-07-2025 07:50-0400 Systolic blood pressure 92 mm[Hg] Dr. Rg Menchaca MD Work Phone: 2(496)122-182734 [place] [address] 01-06-2025 08:15-0400 Body height 160.[address] Rg Menchaca MD Work Phone: [facility] 01-06-2025 08:15-0400 Body mass index (BMI) [Ratio] 25.3 kg/m2 Dr. Rg Menchaca MD Work Phone: 4(188)724-541534 [place] [address] 01-06-2025 08:15-0400 Body temperature 96.9 [degF] Dr. Rg Menchaca MD Work Phone: 1(960)731-060534 [place] [address] 01-06-2025 08:15-0400 Body weight 64.[address] gR Menchaca MD Work Phone: 7(626)773-148934 [place] [address] 01-06-2025 08:15-0400 Diastolic blood pressure 87 mm[Hg] Dr. Rg Menchaca MD Work Phone: 5(802)963-555534 [place] [address] 01-06-2025 08:15-0400 Heart rate 69 /min Dr. Rg Menchaca MD Work Phone: 9(681)807-735634 [place] [address] 01-06-2025 08:15-0400 Respiratory rate 16 /min Dr. Rg Menchaca MD Work Phone: 0(935)868-469934 [place] [address] 01-06-2025 08:15-0400 SaO2% (BldA) [Mass fraction] 98 % Dr. Rg Menchaca MD Work Phone: 3(830)186-229434 [place] [address] 01-06-2025 08:15-0400 Systolic blood pressure 128 mm[Hg] Dr. Rg Menchaca MD Work Phone: 7(016)463-100234 [place] [address] 12-03-2024 08:37-0400 Body height 160.[address] Rg Menchaca MD Work Phone: 2(947)061-354734 [place] [address] 12-03-2024 08:37-0400 Body temperature 96.3 [degF] Dr. Rg Menchaca MD Work Phone: 9(095)774-660734 [place] [address] 12-03-2024 08:37-0400 Diastolic blood pressure 66 mm[Hg] Dr. Rg Menchaca MD Work Phone: 7(447)416-719034 [place] [address] 12-03-2024 08:37-0400 Heart rate 67 /min Dr. Rg Menchaca MD Work Phone: 0(621)649-998961 [place] [address] 12-03-2024 08:37-0400 Respiratory rate 16 /min Dr. Rg Menchaca MD Work Phone: 4(739)080-053334 [place] [address] 12-03-2024 08:37-0400 SaO2% (BldA) [Mass fraction] 97 % Dr. Rg Menchaca MD Work Phone: 3(093)875-105134 [place] [address] 12-03-2024 08:37-0400 Systolic blood pressure 94 mm[Hg] Dr. Rg Menchaca MD Work Phone: 0(315)564-188134 [place] [address] 12-02-2024 08:08-0400 Body height 160.[address] Rg Menchaca MD Work Phone: 7(682)632-755534 [place] [address] 12-02-2024 08:08-0400 Body mass index (BMI) [Ratio] 24.3 kg/m2 Dr. Rg Menchaca MD Work Phone: 8(979)209-255134 [place] [address] 12-02-2024 08:08-0400 Body temperature 96.4 [degF] Dr. Rg Menchaca MD Work Phone: 5(206)744-934834 [place] [address] 12-02-2024 08:08-0400 Body weight 62.[address] Rg Menchaca MD Work Phone: 8(571)117-020834 [place] [address] 12-02-2024 08:08-0400 Diastolic blood pressure 67 mm[Hg] Dr. Rg Menchaca MD Work Phone: 7(955)728-171934 [place] [address] 12-02-2024 08:08-0400 Heart rate 82 /min Dr. Rg Menchaca MD Work Phone: 0(322)673-095834 [place] [address] 12-02-2024 08:08-0400 Respiratory rate 16 /min Dr. Rg Menchaca MD Work Phone: 9(848)970-968534 [place] [address] 12-02-2024 08:08-0400 SaO2% (BldA) [Mass fraction] 96 % Dr. Rg Menchaca MD Work Phone: 5(266)983-321434 [place] [address] 12-02-2024 08:08-0400 Systolic blood pressure 110 mm[Hg] Dr. Rg Menchaca MD Work Phone: 6(071)702-566834 [place] [address] 12-01-2024 08:09-0400 Body height 160.[address] Rg Menchaca MD Work Phone: [facility] 12-01-2024 08:09-0400 Body mass index (BMI) [Ratio] 24.3 kg/m2 Dr. Rg Menchaca MD Work Phone: [facility] 12-01-2024 08:09-0400 Body temperature 96.7 [degF] Dr. gR Menchaca MD Work Phone: [facility] 12-01-2024 08:09-0400 Body weight 62.[address] Rg Menchaca MD Work Phone: [facility] 12-01-2024 08:09-0400 Diastolic blood pressure 75 mm[Hg] Dr. Rg Menchaca MD Work Phone: [facility] 12-01-2024 08:09-0400 Heart rate 78 /min Dr. Rg Menchaca MD Work Phone: [facility] 12-01-2024 08:09-0400 Respiratory rate 16 /min Dr. Rg Menchaca MD Work Phone: [facility] 12-01-2024 08:09-0400 SaO2% (BldA) [Mass fraction] 95 % Dr. Rg Menchaca MD Work Phone: [facility] 12-01-2024 08:09-0400 Systolic blood pressure 90 mm[Hg] Dr. Rg Menchaca MD Work Phone: [facility] 11-11-2024 12:42-0400 Diastolic blood pressure 67 mm[Hg] Windy Yuen MD Work Phone: [facility] 11-11-2024 12:42-0400 Heart rate 74 /min Windy Yuen MD Work Phone: [facility] 11-11-2024 12:42-0400 SaO2% (BldA) [Mass fraction] 96 % Windy Yuen MD Work Phone: [facility] 11-11-2024 12:42-0400 Systolic blood pressure 108 mm[Hg] Windy Yuen MD Work Phone: [facility] 11-05-2024 08:15-0400 Body height 160.[address] Rg Menchaca MD Work Phone: [facility] 11-05-2024 08:15-0400 Body mass index (BMI) [Ratio] 24.4 kg/m2 Dr. Rg Menchaca MD Work Phone: [facility] 11-05-2024 08:15-0400 Body temperature 96.5 [degF] Dr. Rg Menchaca MD Work Phone: [facility] 11-05-2024 08:15-0400 Body weight 62.[address] Rg Menchaca MD Work Phone: [facility] 11-05-2024 08:15-0400 Diastolic blood pressure 64 mm[Hg] Dr. Rg Menchaca MD Work Phone: [facility] 11-05-2024 08:15-0400 Heart rate 74 /min Dr. Rg Menchaca MD Work Phone: [facility] 11-05-2024 08:15-0400 Respiratory rate 16 /min Dr. Rg Menchaca MD Work Phone: [facility] 11-05-2024 08:15-0400 SaO2% (BldA) [Mass fraction] 95 % Dr. Rg Menchaca MD Work Phone: [facility] 11-05-2024 08:15-0400 Systolic blood pressure 142 mm[Hg] Dr. Rg Menchaca MD Work Phone: [facility] 11-04-2024 07:55-0400 Body height 160.[address] Rg Mencahca MD Work Phone: [facility] 11-04-2024 07:55-0400 Body mass index (BMI) [Ratio] 24.4 kg/m2 Dr. Rg Menchaca MD Work Phone: 5(535)830-303334 [place] [address] 11-04-2024 07:55-0400 Body temperature 96.2 [degF] Dr. Rg Menchaca MD Work Phone: 2(871)661-457834 [place] [address] 11-04-2024 07:55-0400 Body weight 62.[address] Rg Menchaca MD Work Phone: 4(520)705-366334 [place] [address] 11-04-2024 07:55-0400 Diastolic blood pressure 70 mm[Hg] Dr. Rg Menchaca MD Work Phone: 5(672)540-791134 [place] [address] 11-04-2024 07:55-0400 Heart rate 74 /min Dr. Rg Menchaca MD Work Phone: 2(279)719-077534 [place] [address] 11-04-2024 07:55-0400 Respiratory rate 16 /min Dr. Rg Menchaca MD Work Phone: 1(660)434-565234 [place] [address] 11-04-2024 07:55-0400 SaO2% (BldA) [Mass fraction] 94 % Dr. Rg Menchaca MD Work Phone: 9(930)730-581134 [place] [address] 11-04-2024 07:55-0400 Systolic blood pressure 118 mm[Hg] Dr. Rg Menchaca MD Work Phone: 7(894)489-177334 [place] [address] 11-03-2024 08:09-0400 Body height 160.[address] Rg Menchaca MD Work Phone: 8(333)710-229634 [place] [address] 11-03-2024 08:09-0400 Body mass index (BMI) [Ratio] 24.4 kg/m2 Dr. Rg Menchaca MD Work Phone: 0(847)544-534134 [place] [address] 11-03-2024 08:09-0400 Body temperature 97.5 [degF] Dr. Rg Menchaca MD Work Phone: 0(875)704-026934 [place] [address] 11-03-2024 08:09-0400 Body weight 62.[address] Rg Menchaca MD Work Phone: 3(387)949-091834 [place] [address] 11-03-2024 08:09-0400 Diastolic blood pressure 68 mm[Hg] Dr. Rg Menchaca MD Work Phone: 5(306)870-699534 [place] [address] 11-03-2024 08:09-0400 Heart rate 86 /min Dr. Rg Menchaca MD Work Phone: [facility] 11-03-2024 08:09-0400 Respiratory rate 16 /min Dr. Rg Menchaca MD Work Phone: [facility] 11-03-2024 08:09-0400 Systolic blood pressure 116 mm[Hg] Dr. Rg Menchaca MD Work Phone: [facility] 10-08-2024 08:55-0400 Body temperature 97.1 [degF] Dr. Rg Menchaca MD Work Phone: 1(601)293-658461 [place] [address] 10-08-2024 08:55-0400 Diastolic blood pressure 71 mm[Hg] Dr. Rg Menchaca MD Work Phone: [facility] 10-08-2024 08:55-0400 Heart rate 68 /min Dr. Rg Menchaca MD Work Phone: [facility] 10-08-2024 08:55-0400 Respiratory rate 16 /min Dr. Rg Menchaca MD Work Phone: [facility] 10-08-2024 08:55-0400 SaO2% (BldA) [Mass fraction] 94 % Dr. Rg Menchaca MD Work Phone: [facility] 10-08-2024 08:55-0400 Systolic blood pressure 116 mm[Hg] Dr. Rg Menchaca MD Work Phone: [facility] 10-07-2024 08:31-0400 Body height 160.[address] Rg Menchaca MD Work Phone: [facility] 10-07-2024 08:31-0400 Body mass index (BMI) [Ratio] 23.3 kg/m2 Dr. Rg Menchaca MD Work Phone: [facility] 10-07-2024 08:31-0400 Body temperature 97.2 [degF] Dr. Rg Menchaca MD Work Phone: [facility] 10-07-2024 08:31-0400 Body weight 59.[address] Rg Menchaca MD Work Phone: [facility] 10-07-2024 08:31-0400 Diastolic blood pressure 63 mm[Hg] Dr. Rg Menchaca MD Work Phone: [facility] 10-07-2024 08:31-0400 Heart rate 72 /min Dr. Rg Menchaca MD Work Phone: 1(277)409-127661 [place] [address] 10-07-2024 08:31-0400 Respiratory rate 14 /min Dr. Rg Menchaca MD Work Phone: 4(333)156-566234 [place] [address] 10-07-2024 08:31-0400 SaO2% (BldA) [Mass fraction] 96 % Dr. Rg Menchaca MD Work Phone: [facility] 10-07-2024 08:31-0400 Systolic blood pressure 112 mm[Hg] Dr. Rg Menchaca MD Work Phone: 1(086)214-620861 [place] [address] 10-06-2024 08:06-0400 Body height 160.[address] Rg Menchaca MD Work Phone: 9(926)916-609031 [address] 10-06-2024 08:06-0400 Body mass index (BMI) [Ratio] 24.4 kg/m2 Dr. Rg Menchaca MD Work Phone: [facility] 10-06-2024 08:06-0400 Body temperature 97.4 [degF] Dr. Rg Menchaca MD Work Phone: [facility] 10-06-2024 08:06-0400 Body weight 62.[address] Rg Menchaca MD Work Phone: [facility] 10-06-2024 08:06-0400 Diastolic blood pressure 59 mm[Hg] Dr. Rg Menchaca MD Work Phone: [facility] 10-06-2024 08:06-0400 Heart rate 73 /min Dr. Rg Menchaca MD Work Phone: [facility] 10-06-2024 08:06-0400 Respiratory rate 16 /min Dr. Rg Menchaca MD Work Phone: [facility] 10-06-2024 08:06-0400 SaO2% (BldA) [Mass fraction] 92 % Dr. Rg Menchaca MD Work Phone: [facility] 10-06-2024 08:06-0400 Systolic blood pressure 102 mm[Hg] Dr. Rg Menchaca MD Work Phone: 3(623)115-221534 [place] [address] 09-10-2024 08:20-0400 Body height 160.[address] Rg Menchaca MD Work Phone: 0(014)805-518134 [place] [address] 09-10-2024 08:20-0400 Body mass index (BMI) [Ratio] 24.7 kg/m2 Dr. Rg Menchaca MD Work Phone: 5(109)809-299334 [place] [address] 09-10-2024 08:20-0400 Body temperature 96.8 [degF] Dr. Rg Menchaca MD Work Phone: 3(155)864-227934 [place] [address] 09-10-2024 08:20-0400 Body weight 63.[address] Rg Menchaca MD Work Phone: 7(642)919-550734 [place] [address] 09-10-2024 08:20-0400 Diastolic blood pressure 75 mm[Hg] Dr. Rg Menchaca MD Work Phone: 4(408)099-327934 [place] [address] 09-10-2024 08:20-0400 Heart rate 78 /min Dr. Rg Menchaca MD Work Phone: 4(197)097-989461 [place] [address] 09-10-2024 08:20-0400 Respiratory rate 16 /min Dr. Rg Menchaca MD Work Phone: [facility] 09-10-2024 08:20-0400 SaO2% (BldA) [Mass fraction] 95 % Dr. Rg Menchaca MD Work Phone: 4(940)511-936434 [place] [address] 09-10-2024 08:20-0400 Systolic blood pressure 135 mm[Hg] Dr. Rg Menchaca MD Work Phone: 2(201)863-186134 [place] [address] 09-09-2024 12:17-0400 Body temperature 96 [degF] Dr. Rg Menchaca MD Work Phone: [facility] 09-09-2024 12:17-0400 Diastolic blood pressure 76 mm[Hg] Dr. Rg Menchaca MD Work Phone: [facility] 09-09-2024 12:17-0400 Heart rate 68 /min Dr. Rg Menchaca MD Work Phone: 7(329)379-021734 [place] [address] 09-09-2024 12:17-0400 Respiratory rate 16 /min Dr. Rg Menchaca MD Work Phone: 8(457)111-344234 [place] [address] 09-09-2024 12:17-0400 Systolic blood pressure 117 mm[Hg] Dr. Rg Menchaca MD Work Phone: 8(500)789-297834 [place] [address] 09-09-2024 08:09-0400 Body height 160.[address] Rg Menchaca MD Work Phone: 5(100)906-591334 [place] [address] 09-09-2024 08:09-0400 Body mass index (BMI) [Ratio] 24.7 kg/m2 Dr. Rg Menchaca MD Work Phone: 0(563)980-212234 [place] [address] 09-09-2024 08:09-0400 Body weight 63.[address] Rg Menchaca MD Work Phone: 1(046)192-701534 [place] [address] 09-09-2024 08:09-0400 SaO2% (BldA) [Mass fraction] 94 % Dr. Rg Menchaca MD Work Phone: 6(199)398-119234 [place] [address] 09-08-2024 08:33-0400 Body mass index (BMI) [Ratio] 24.7 kg/m2 Dr. Rg Menchaca MD Work Phone: 5(482)818-354334 [place] [address] 09-08-2024 08:33-0400 Body temperature 96.5 [degF] Dr. Rg Menchaca MD Work Phone: 1(530)037-112834 [place] [address] 09-08-2024 08:33-0400 Body weight 63.[address] Rg Menchaca MD Work Phone: 3(925)774-339734 [place] [address] 09-08-2024 08:33-0400 Diastolic blood pressure 75 mm[Hg] Dr. Rg Menchaca MD Work Phone: [facility] 09-08-2024 08:33-0400 Heart rate 80 /min Dr. Rg Menchaca MD Work Phone: 8(466)445-570334 [place] [address] 09-08-2024 08:33-0400 Respiratory rate 16 /min Dr. Rg Menchaca MD Work Phone: 4(777)831-566434 [place] [address] 09-08-2024 08:33-0400 SaO2% (BldA) [Mass fraction] 93 % Dr. Rg Menchaca MD Work Phone: 1(328)736-787634 [place] [address] 09-08-2024 08:33-0400 Systolic blood pressure 126 mm[Hg] Dr. Rg Menchaca MD Work Phone: 6(203)261-711334 [place] [address] 08-13-2024 10:15-0400 Body height 160.[address] Rg Menchaca MD Work Phone: 2(635)469-823734 [place] [address] 08-13-2024 10:15-0400 Body mass index (BMI) [Ratio] 24.9 kg/m2 Dr. Rg Menchaca MD Work Phone: 3(182)481-533234 [place] [address] 08-13-2024 10:15-0400 Body temperature 96.6 [degF] Dr. Rg Menchaca MD Work Phone: 4(605)572-506934 [place] [address] 08-13-2024 10:15-0400 Body weight 63.[address] Rg Menchaca MD Work Phone: 1(980)535-036634 [place] [address] 08-13-2024 10:15-0400 Diastolic blood pressure 72 mm[Hg] Dr. Rg Menchaca MD Work Phone: 2(382)015-321434 [place] [address] 08-13-2024 10:15-0400 Heart rate 73 /min Dr. Rg Menchaca MD Work Phone: 1(968)719-742234 [place] [address] 08-13-2024 10:15-0400 Respiratory rate 16 /min Dr. Rg Menchaca MD Work Phone: 8(130)605-142634 [place] [address] 08-13-2024 10:15-0400 SaO2% (BldA) [Mass fraction] 95 % Dr. Rg Menchaca MD Work Phone: 7(879)277-036931 [address] 08-13-2024 10:15-0400 Systolic blood pressure 121 mm[Hg] Dr. Rg Menchaca MD Work Phone: 7(243)071-240334 [place] [address] 08-12-2024 08:09-0400 Body height 160.[address] Rg Menchaca MD Work Phone: 6(832)997-209834 [place] [address] 08-12-2024 08:09-0400 Body mass index (BMI) [Ratio] 24.9 kg/m2 Dr. Rg Menchaca MD Work Phone: 4(870)124-529734 [place] [address] 08-12-2024 08:09-0400 Body temperature 96.8 [degF] Dr. Rg Menchaca MD Work Phone: 5(189)252-947334 [place] [address] 08-12-2024 08:09-0400 Body weight 63.[address] Rg Menchaca MD Work Phone: 6(447)649-188734 [place] [address] 08-12-2024 08:09-0400 Diastolic blood pressure 59 mm[Hg] Dr. Rg Menchaca MD Work Phone: 7(465)734-857934 [place] [address] 08-12-2024 08:09-0400 Heart rate 79 /min Dr. Rg Menchaca MD Work Phone: 8(220)830-789134 [place] [address] 08-12-2024 08:09-0400 Respiratory rate 16 /min Dr. Rg Menchaca MD Work Phone: 3(156)023-953634 [place] [address] 08-12-2024 08:09-0400 SaO2% (BldA) [Mass fraction] 95 % Dr. Rg Menchaca MD Work Phone: 6(911)257-349234 [place] [address] 08-12-2024 08:09-0400 Systolic blood pressure 104 mm[Hg] Dr. Rg Menchaca MD Work Phone: 2(937)261-977334 [place] [address] 08-11-2024 08:01-0400 Body height 160.[address] Rg Menchaca MD Work Phone: 3(705)793-463434 [place] [address] 08-11-2024 08:01-0400 Body mass index (BMI) [Ratio] 24.9 kg/m2 Dr. Rg Menchaca MD Work Phone: [facility] 08-11-2024 08:01-0400 Body temperature 96.8 [degF] Dr. Rg Menchaca MD Work Phone: [facility] 08-11-2024 08:01-0400 Body weight 63.[address] Rg Menchaca MD Work Phone: 6(908)238-150261 [place] [address] 08-11-2024 08:01-0400 Diastolic blood pressure 73 mm[Hg] Dr. Rg Menchaca MD Work Phone: 3(980)809-631861 [place] [address] 08-11-2024 08:01-0400 Heart rate 83 /min Dr. Rg Menchaca MD Work Phone: 4(985)959-979434 [place] [address] 08-11-2024 08:01-0400 Respiratory rate 16 /min Dr. Rg Menchaca MD Work Phone: 5(139)359-404234 [place] [address] 08-11-2024 08:01-0400 SaO2% (BldA) [Mass fraction] 94 % Dr. Rg Menchaca MD Work Phone: 9(534)454-012831 [address] 08-11-2024 08:01-0400 Systolic blood pressure 116 mm[Hg] Dr. Rg Menchaca MD Work Phone: 2(545)076-084234 [place] [address] 07-16-2024 08:39-0500 Body mass index (BMI) [Ratio] 24.3 kg/m2 Dr. Rg Menchaca MD Work Phone: 2(969)165-677561 [place] [address] 07-16-2024 08:39-0500 Body temperature 96.6 [degF] Dr. Rg Menchaca MD Work Phone: 2(420)406-813061 [place] [address] 07-16-2024 08:39-0500 Body weight 62.[address] Rg Menchaca MD Work Phone: 9(216)193-820931 [address] 07-16-2024 08:39-0500 Diastolic blood pressure 71 mm[Hg] Dr. Rg Menchaca MD Work Phone: 4(630)413-294631 [address] 07-16-2024 08:39-0500 Heart rate 80 /min Dr. Rg Menchaca MD Work Phone: [facility] 07-16-2024 08:39-0500 Respiratory rate 16 /min Dr. Rg Menchaca MD Work Phone: [facility] 07-16-2024 08:39-0500 SaO2% (BldA) [Mass fraction] 96 % Dr. Rg Menchaca MD Work Phone: 5(654)072-520561 [place] [address] 07-16-2024 08:39-0500 Systolic blood pressure 133 mm[Hg] Dr. Rg Menchaca MD Work Phone: 2(780)894-060634 [place] [address] 07-15-2024 13:02-0500 Body temperature 96.5 [degF] Dr. Rg Menchaca MD Work Phone: 8(559)252-492934 [place] [address] 07-15-2024 13:02-0500 Diastolic blood pressure 65 mm[Hg] Dr. Rg Menchaca MD Work Phone: 8(886)[phone] [place] [address] 07-15-2024 13:02-0500 Heart rate 75 /min Dr. Rg Menchaca MD Work Phone: 2(943)454-778334 [place] [address] 07-15-2024 13:02-0500 Systolic blood pressure 108 mm[Hg] Dr. Rg Menchaca MD Work Phone: 0(999)590-429161 [place] [address] 07-15-2024 08:35-0500 Body mass index (BMI) [Ratio] 24.3 kg/m2 Dr. Rg Menchaca MD Work Phone: 1(042)722-999334 [place] [address] 07-15-2024 08:35-0500 Body weight 62.[address] Rg Menchaca MD Work Phone: 2(772)707-680361 [place] [address] 07-15-2024 08:35-0500 Respiratory rate 16 /min Dr. Rg Menchaca MD Work Phone: 2(827)205-079531 [address] 07-15-2024 08:35-0500 SaO2% (BldA) [Mass fraction] 95 % Dr. Rg Menchaca MD Work Phone: 4(308)026-448561 [place] [address] 07-14-2024 08:22-0500 Body mass index (BMI) [Ratio] 24.3 kg/m2 Dr. Rg Menchaca MD Work Phone: [facility] 07-14-2024 08:22-0500 Body temperature 97.1 [degF] Dr. Rg Menchaca MD Work Phone: [facility] 07-14-2024 08:22-0500 Body weight 62.[address] Rg Menchaca MD Work Phone: 7(834)741-351831 [address] 07-14-2024 08:22-0500 Diastolic blood pressure 70 mm[Hg] Dr. Rg Menchaca MD Work Phone: 0(887)550-116331 [address] 07-14-2024 08:22-0500 Heart rate 83 /min Dr. Rg Menchaca MD Work Phone: 9(172)044-154134 [place] [address] 07-14-2024 08:22-0500 Respiratory rate 16 /min Dr. Rg Menchaca MD Work Phone: 7(307)659-750034 [place] [address] 07-14-2024 08:22-0500 SaO2% (BldA) [Mass fraction] 95 % Dr. Rg Menchaca MD Work Phone: 0(199)800-515131 [address] 07-14-2024 08:22-0500 Systolic blood pressure 102 mm[Hg] Dr. Rg Menchaca MD Work Phone: 5(251)051-661634 [place] [address] 06-18-2024 08:30-0500 Body temperature 96.9 [degF] Dr. Rg Menchaca MD Work Phone: 1(017)651-751031 [address] 06-18-2024 08:30-0500 Diastolic blood pressure 61 mm[Hg] Dr. Rg Menchaca MD Work Phone: 3(454)344-333531 [address] 06-18-2024 08:30-0500 Heart rate 71 /min Dr. Rg Menchaca MD Work Phone: 6(779)166-153234 [place] [address] 06-18-2024 08:30-0500 Respiratory rate 16 /min Dr. Rg Menchaca MD Work Phone: 6(992)930-511731 [address] 06-18-2024 08:30-0500 SaO2% (BldA) [Mass fraction] 95 % Dr. Rg Menchaca MD Work Phone: 3(992)797-011631 [address] 06-18-2024 08:30-0500 Systolic blood pressure 114 mm[Hg] Dr. Rg Menchaca MD Work Phone: 4(519)920-576534 [place] [address] 06-17-2024 08:43-0500 Body mass index (BMI) [Ratio] 24.3 kg/m2 Dr. Rg Menchaca MD Work Phone: 7(918)620-229134 [place] [address] 06-17-2024 08:43-0500 Body temperature 96.7 [degF] Dr. Rg Menchaca MD Work Phone: 0(459)747-964334 [place] [address] 06-17-2024 08:43-0500 Body weight 62.[address] Rg Menchaca MD Work Phone: 8(806)742-809934 [place] [address] 06-17-2024 08:43-0500 Diastolic blood pressure 62 mm[Hg] Dr. Rg Menchaca MD Work Phone: 9(564)217-423834 [place] [address] 06-17-2024 08:43-0500 Heart rate 78 /min Dr. Rg Menchaca MD Work Phone: 1(291)992-480534 [place] [address] 06-17-2024 08:43-0500 Respiratory rate 16 /min Dr. Rg Menchaca MD Work Phone: 6(732)864-502734 [place] [address] 06-17-2024 08:43-0500 SaO2% (BldA) [Mass fraction] 92 % Dr. Rg Menchaca MD Work Phone: 4(972)236-397034 [place] [address] 06-17-2024 08:43-0500 Systolic blood pressure 108 mm[Hg] Dr. Rg Menchaca MD Work Phone: 8(516)003-169134 [place] [address] 06-16-2024 08:20-0500 Body mass index (BMI) [Ratio] 23.4 kg/m2 Dr. Rg Menchaca MD Work Phone: 5(602)458-386134 [place] [address] 06-16-2024 08:20-0500 Body temperature 97.5 [degF] Dr. Rg Menchaca MD Work Phone: 5(697)945-047634 [place] [address] 06-16-2024 08:20-0500 Body weight [address] Rg Menchaca MD Work Phone: 9(549)011-727734 [place] [address] 06-16-2024 08:20-0500 Diastolic blood pressure 68 mm[Hg] Dr. Rg Menchaca MD Work Phone: 6(830)788-389834 [place] [address] 06-16-2024 08:20-0500 Heart rate 82 /min Dr. Rg Menchaca MD Work Phone: 2(705)255-414534 [place] [address] 06-16-2024 08:20-0500 Respiratory rate 16 /min Dr. Rg Menchaca MD Work Phone: 5(071)303-873834 [place] [address] 06-16-2024 08:20-0500 SaO2% (BldA) [Mass fraction] 95 % Dr. Rg Menchaca MD Work Phone: 6(854)595-183534 [place] [address] 06-16-2024 08:20-0500 Systolic blood pressure 110 mm[Hg] Dr. Rg Menchaca MD Work Phone: 8(086)279-835134 [place] [address] 05-22-2024 09:00-0500 Body temperature 97.2 [degF] Dr. Rg Menchaca MD Work Phone: 2(687)868-935034 [place] [address] 05-22-2024 09:00-0500 Diastolic blood pressure 84 mm[Hg] Dr. Rg Menchaca MD Work Phone: 3(664)545-755034 [place] [address] 05-22-2024 09:00-0500 Heart rate 65 /min Dr. Rg Menchaca MD Work Phone: 1(690)560-946934 [place] [address] 05-22-2024 09:00-0500 Respiratory rate 16 /min Dr. Rg Menchaca MD Work Phone: 5(410)719-970734 [place] [address] 05-22-2024 09:00-0500 SaO2% (BldA) [Mass fraction] 96 % Dr. Rg Menchaca MD Work Phone: 9(020)195-114534 [place] [address] 05-22-2024 09:00-0500 Systolic blood pressure 112 mm[Hg] Dr. Rg Menchaca MD Work Phone: 5(114)999-008334 [place] [address] 05-21-2024 08:39-0500 Body temperature 96.9 [degF] Dr. Rg Menchaca MD Work Phone: 0(785)417-540134 [place] [address] 05-21-2024 08:39-0500 Diastolic blood pressure 60 mm[Hg] Dr. Rg Menchaca MD Work Phone: [facility] 05-21-2024 08:39-0500 Heart rate 74 /min Dr. Rg Menchaca MD Work Phone: [facility] 05-21-2024 08:39-0500 Respiratory rate 16 /min Dr. Rg Menchaca MD Work Phone: 8(720)969-545261 [place] [address] 05-21-2024 08:39-0500 SaO2% (BldA) [Mass fraction] 96 % Dr. Rg Menchaca MD Work Phone: 6(410)832-856061 [place] [address] 05-21-2024 08:39-0500 Systolic blood pressure 105 mm[Hg] Dr. Rg Menchaca MD Work Phone: 4(345)937-824331 [address] 05-19-2024 08:26-0500 Body mass index (BMI) [Ratio] 25 kg/m2 Dr. Rg Menchaca MD Work Phone: 5(781)239-217131 [address] 05-19-2024 08:26-0500 Body temperature 98.6 [degF] Dr. Rg Menchaca MD Work Phone: 1(421)992-167331 [address] 05-19-2024 08:26-0500 Body weight 63.[address] Rg Menchaca MD Work Phone: [facility] 05-19-2024 08:26-0500 Diastolic blood pressure 79 mm[Hg] Dr. Rg Menchaca MD Work Phone: [facility] 05-19-2024 08:26-0500 Heart rate 88 /min Dr. Rg Menchaca MD Work Phone: [facility] 05-19-2024 08:26-0500 Respiratory rate 16 /min Dr. Rg Menchaca MD Work Phone: [facility] 05-19-2024 08:26-0500 SaO2% (BldA) [Mass fraction] 96 % Dr. Rg Menchaca MD Work Phone: [facility] 05-19-2024 08:26-0500 Systolic blood pressure 114 mm[Hg] Dr. Rg Menchaca MD Work Phone: [facility] 04-23-2024 08:22-0500 Body mass index (BMI) [Ratio] 24.5 kg/m2 Dr. Rg Menchaca MD Work Phone: [facility] 04-23-2024 08:22-0500 Body temperature 97 [degF] Dr. Rg Menchaca MD Work Phone: 6(008)114-631461 [place] [address] 04-23-2024 08:22-0500 Body weight 62.[address] Rg Menchaca MD Work Phone: 5(687)096-612331 [address] 04-23-2024 08:22-0500 Diastolic blood pressure 71 mm[Hg] Dr. Rg Menchaca MD Work Phone: 8(278)359-661461 [place] [address] 04-23-2024 08:22-0500 Heart rate 76 /min Dr. Rg Menchaca MD Work Phone: 5(970)830-930131 [address] 04-23-2024 08:22-0500 Respiratory rate 16 /min Dr. Rg Menchaca MD Work Phone: 5(348)080-483231 [address] 04-23-2024 08:22-0500 SaO2% (BldA) [Mass fraction] 95 % Dr. Rg Menchaca MD Work Phone: [facility] 04-23-2024 08:22-0500 Systolic blood pressure 117 mm[Hg] Dr. Rg Menchaca MD Work Phone: 4(705)524-173061 [place] [address] 04-22-2024 08:27-0500 Body mass index (BMI) [Ratio] 24.5 kg/m2 Dr. Rg Menchaca MD Work Phone: 6(411)452-778861 [place] [address] 04-22-2024 08:27-0500 Body temperature 97.2 [degF] Dr. Rg Menchaca MD Work Phone: [facility] 04-22-2024 08:27-0500 Body weight 62.[address] Rg Menchaca MD Work Phone: [facility] 04-22-2024 08:27-0500 Diastolic blood pressure 68 mm[Hg] Dr. Rg Menchaca MD Work Phone: [facility] 04-22-2024 08:27-0500 Heart rate 72 /min Dr. Rg Menchaca MD Work Phone: [facility] 04-22-2024 08:27-0500 Respiratory rate 16 /min Dr. Rg Menchaca MD Work Phone: 5(922)036-718934 [place] [address] 04-22-2024 08:27-0500 SaO2% (BldA) [Mass fraction] 97 % Dr. Rg Menchaca MD Work Phone: 4(983)537-903934 [place] [address] 04-22-2024 08:27-0500 Systolic blood pressure 115 mm[Hg] Dr. Rg Menchaca MD Work Phone: 3(981)448-453834 [place] [address] 04-21-2024 08:25-0500 Body mass index (BMI) [Ratio] 24.4 kg/m2 Dr. Rg Menchaca MD Work Phone: 9(673)569-102034 [place] [address] 04-21-2024 08:25-0500 Body temperature 96.5 [degF] Dr. Rg Menchaca MD Work Phone: 4(217)266-442034 [place] [address] 04-21-2024 08:25-0500 Body weight 62.[address] Rg Menchaca MD Work Phone: 6(481)911-522634 [place] [address] 04-21-2024 08:25-0500 Diastolic blood pressure 57 mm[Hg] Dr. Rg Menchaca MD Work Phone: 5(478)536-248131 [address] 04-21-2024 08:25-0500 Heart rate 77 /min Dr. Rg Menchaca MD Work Phone: 8(056)335-495861 [place] [address] 04-21-2024 08:25-0500 Respiratory rate 16 /min Dr. Rg Menchaca MD Work Phone: 2(179)147-253234 [place] [address] 04-21-2024 08:25-0500 SaO2% (BldA) [Mass fraction] 94 % Dr. Rg eMnchaca MD Work Phone: 9(277)452-338561 [place] [address] 04-21-2024 08:25-0500 Systolic blood pressure 104 mm[Hg] Dr. Rg Menchaca MD Work Phone: [facility] 02-05-2024 11:19-0400 Diastolic blood pressure 68 mm[Hg] Windy Yuen MD Work Phone: [facility] 02-05-2024 11:19-0400 Heart rate 81 /min Windy Yuen MD Work Phone: [facility] 02-05-2024 11:19-0400 SaO2% (BldA) [Mass fraction] 94 % Windy Yuen MD Work Phone: [facility] 02-05-2024 11:19-0400 Systolic blood pressure 116 mm[Hg] Windy Yuen MD Work Phone: [facility] 09-13-2023 08:36-0400 Body height 160.02 cm [facility] 09-13-2023 08:36-0400 Body temperature 98.1 [degF] [facility] 09-13-2023 08:36-0400 Diastolic blood pressure 68 mm[Hg] [facility] 09-13-2023 08:36-0400 Heart rate 77 /min [facility] 09-13-2023 08:36-0400 Respiratory rate 16 /min [facility] 09-13-2023 08:36-0400 SaO2% (BldA) [Mass fraction] 94 % [facility] 09-13-2023 08:36-0400 Systolic blood pressure 115 mm[Hg] [facility] 09-12-2023 09:03-0400 Body height 160.02 cm [facility] 09-12-2023 09:03-0400 Body mass index (BMI) [Ratio] 23.4 kg/m2 [facility] 09-12-2023 09:03-0400 Body temperature 98.5 [degF] [facility] 09-12-2023 09:03-0400 Body weight 60 kg [facility] 09-12-2023 09:03-0400 Diastolic blood pressure 75 mm[Hg] [facility] 09-12-2023 09:03-0400 Heart rate 70 /min [facility] 09-12-2023 09:03-0400 Respiratory rate 16 /min [facility] 09-12-2023 09:03-0400 SaO2% (BldA) [Mass fraction] 95 % [facility] 09-12-2023 09:03-0400 Systolic blood pressure 130 mm[Hg] [facility] 09-11-2023 08:32-0400 Body height 160.02 cm [facility] 09-11-2023 08:32-0400 Body temperature 98.3 [degF] [facility] 09-11-2023 08:32-0400 Diastolic blood pressure 64 mm[Hg] [facility] 09-11-2023 08:32-0400 Heart rate 77 /min [facility] 09-11-2023 08:32-0400 Respiratory rate 16 /min [facility] 09-11-2023 08:32-0400 SaO2% (BldA) [Mass fraction] 95 % [facility] 09-11-2023 08:32-0400 Systolic blood pressure 109 mm[Hg] [facility] 09-10-2023 08:39-0400 Body height 160.02 cm [facility] 09-10-2023 08:39-0400 Body mass index (BMI) [Ratio] 23.7 kg/m2 [facility] 09-10-2023 08:39-0400 Body temperature 98 [degF] [facility] 09-10-2023 08:39-0400 Body weight 60.78 kg [facility] 09-10-2023 08:39-0400 Diastolic blood pressure 67 mm[Hg] [facility] 09-10-2023 08:39-0400 Heart rate 80 /min [facility] 09-10-2023 08:39-0400 Respiratory rate 16 /min [facility] 09-10-2023 08:39-0400 SaO2% (BldA) [Mass fraction] 96 % [facility] 09-10-2023 08:39-0400 Systolic blood pressure 115 mm[Hg] [facility] 09-09-2023 13:39-0400 Body temperature 97.1 [degF] [facility] 09-09-2023 13:39-0400 Diastolic blood pressure 65 mm[Hg] [facility] 09-09-2023 13:39-0400 Heart rate 72 /min [facility] 09-09-2023 13:39-0400 Respiratory rate 16 /min [facility] 09-09-2023 13:39-0400 SaO2% (BldA) [Mass fraction] 97 % [facility] 09-09-2023 13:39-0400 Systolic blood pressure 110 mm[Hg] [facility] 09-09-2023 08:39-0400 Body height 160.02 cm [facility] 07-31-2023 16:35-0400 Body height 160.7 cm Windy Yuen MD Work Phone: [facility] 07-31-2023 16:35-0400 Body weight 59.88 kg Windy Yuen MD Work Phone: [facility] 07-31-2023 16:35-0400 Diastolic blood pressure 50 mm[Hg] Windy Yuen MD Work Phone: [facility] 07-31-2023 16:35-0400 Heart rate 72 /min Windy Yuen MD Work Phone: [facility] 07-31-2023 16:35-0400 SaO2% (BldA) [Mass fraction] 96 % Windy Yuen MD Work Phone: [facility] 07-31-2023 16:35-0400 Systolic blood pressure 91 mm[Hg] Windy Yuen MD Work Phone: [facility] 04-29-2022 04:53-0500 Diastolic blood pressure 82 mm[Hg] [facility] Work Phone: 04-29-2022 04:53-0500 Heart rate 70 /min [facility] Work Phone: 04-29-2022 04:53-0500 Respiratory rate 16 /min [facility] Work Phone: 04-29-2022 04:53-0500 SaO2% (BldA) [Mass fraction] 98 % [facility] Work Phone: 04-29-2022 04:53-0500 Systolic blood pressure 124 mm[Hg] [facility] Work Phone: 04-28-2022 21:57-0500 Body height 160.02 cm [facility] Work Phone: 04-28-2022 21:57-0500 Body mass index (BMI) [Ratio] 24.1 kg/m2 [facility] Work Phone: 04-28-2022 21:57-0500 Body temperature 96.2 [degF] [facility] Work Phone: 04-28-2022 21:57-0500 Body weight 61.87 kg [facility] Work Phone: 03-01-2022 13:29-0400 Diastolic blood pressure 63 mm[Hg] [facility] Work Phone: 03-01-2022 13:29-0400 Heart rate 77 /min [facility] Work Phone: 03-01-2022 13:29-0400 Respiratory rate 18 /min [facility] Work Phone: 03-01-2022 13:29-0400 SaO2% (BldA) [Mass fraction] 93 % [facility] Work Phone: 03-01-2022 13:29-0400 Systolic blood pressure 102 mm[Hg] [facility] Work Phone: 03-01-2022 10:29-0400 Body temperature 97.2 [degF] [facility] Work Phone: 03-01-2022 10:25-0400 Body mass index (BMI) [Ratio] 21.9 kg/m2 [facility] Work Phone: 03-01-2022 10:25-0400 Body weight 56.1 kg [facility] Work Phone: 11-15-2021 11:23-0400 Body weight 55.79 kg La Nean Lala MD Work Phone: [facility] 11-15-2021 11:23-0400 Diastolic blood pressure 67 mm[Hg] La Nena Lala MD Work Phone: [facility] 11-15-2021 11:23-0400 Heart rate 85 /min La Nena Lala MD Work Phone: [facility] 11-15-2021 11:23-0400 Respiratory rate 16 /min La Nena Lala MD Work Phone: [facility] 11-15-2021 11:23-0400 SaO2% (BldA) [Mass fraction] 99 % La Nena Lala MD Work Phone: [facility] 11-15-2021 11:23-0400 Systolic blood pressure 105 mm[Hg] La Nena Lala MD Work Phone: [facility] 08-30-2021 20:07-0400 Diastolic blood pressure 74 mm[Hg] Dr. Rg Menchaca Work Phone: [facility] Work Phone: 08-30-2021 20:07-0400 Heart rate 69 /min Dr. Rg Menchaca Work Phone: [facility] Work Phone: 08-30-2021 20:07-0400 Respiratory rate 18 /min Dr. Rg Menchaca Work Phone: [facility] Work Phone: 08-30-2021 20:07-0400 SaO2% (BldA) [Mass fraction] 96 % Dr. Rg Menchaca Work Phone: [facility] Work Phone: 08-30-2021 20:07-0400 Systolic blood pressure 94 mm[Hg] Dr. Rg Menchaca Work Phone: [facility] Work Phone: 08-30-2021 18:05-0400 Body height 154.[address] Rg Menchaca Work Phone: [facility] Work Phone: 08-30-2021 18:05-0400 Body mass index (BMI) [Ratio] 25.9 kg/m2 Dr. Rg Menchaca Work Phone: [facility] Work Phone: 08-30-2021 18:05-0400 Body temperature 96.8 [degF] Dr. Rg Menchaca Work Phone: [facility] Work Phone: 08-30-2021 18:05-0400 Body weight 62.[address] Rg Menchaca Work Phone: [facility] Work Phone: 08-19-2021 14:30-0400 Body temperature 98.9 [degF] Dr. Rg Menchaca Work Phone: [facility] Work Phone: 08-19-2021 14:30-0400 Diastolic blood pressure 68 mm[Hg] Dr. Rg Menchaca Work Phone: [facility] Work Phone: 08-19-2021 14:30-0400 Heart rate 88 /min Dr. Rg Menchaca Work Phone: [facility] Work Phone: 08-19-2021 14:30-0400 Respiratory rate 18 /min Dr. Rg Menchaca Work Phone: [facility] Work Phone: 08-19-2021 14:30-0400 SaO2% (BldA) [Mass fraction] 96 % Dr. Rg Menchaca Work Phone: [facility] Work Phone: 08-19-2021 14:30-0400 Systolic blood pressure 104 mm[Hg] Dr. Rg Menchaca Work Phone: [facility] Work Phone: 08-19-2021 12:54-0400 Body height 154.[address] Rg Menchaca Work Phone: [facility] Work Phone: 08-19-2021 12:54-0400 Body weight 53.[address] Rg Menchaca Work Phone: [facility] Work Phone: 08-18-2021 21:27-0400 Body mass index (BMI) [Ratio] 22.2 kg/m2 Dr. Rg Menchaca Work Phone: [facility] Work Phone: 08-18-2021 20:57-0400 Body temperature 98 [degF] [facility] Work Phone: 08-18-2021 20:57-0400 Diastolic blood pressure 62 mm[Hg] [facility] Work Phone: 08-18-2021 20:57-0400 Heart rate 74 /min [facility] Work Phone: 08-18-2021 20:57-0400 Respiratory rate 16 /min [facility] Work Phone: 08-18-2021 20:57-0400 SaO2% (BldA) [Mass fraction] 98 % [facility] Work Phone: 08-18-2021 20:57-0400 Systolic blood pressure 106 mm[Hg] [facility] Work Phone: 08-18-2021 17:31-0400 Body height 159.99 cm [facility] Work Phone: 08-18-2021 17:31-0400 Body mass index (BMI) [Ratio] 21.4 kg/m2 [facility] Work Phone: 08-18-2021 17:31-1989 Body weight 54.9 kg [facility] Work Phone: Encounters Encounter Date Encounter Type Care Provider Facility Start: 04-01-2025 ambulatory Rg Menchaca Facility:[facility] Start: 03-31-2025 ambulatory Windy Abeldelfina Alicia y:[facility] Start: 03-30-2025 End: 03-30-2025 ambulatory Windy Yuen Facility:[facility] Start: 03-04-2025 End: 03-04-2025 Patient encounter [...] Start: 11-11-2024 End: 11-11-2024 ambulatory WINDY YUEN Facility:[facility] Start: 11-11-2024 End: 11-11-2024 Patient encounter procedure Windy Yuen MD Work Phone: Neurology Comment on above: Stiff person syndrom e Start: 11-05-2024 End: 11-05-[address] Windy Yuen MD [facility] Work Phone: Start: 11-05-2024 End: 11-05-[address] Rg Menchaca MD Work Phone: [facility] Work Phone: Start: 11-04-2024 End: 11-04-[address] Windy Yuen MD [facility] Work Phone: Start: 11-04-2024 End: 11-04-[address] Rg Menchaca MD Work Phone: [facility] Work Phone: Start: 11-03-2024 End: 11-03-[address] Windy Yuen MD [facility] Work Phone: Start: 11-03-2024 End: 11-03-[address] Rg Menchaca MD Work Phone: [facility] Work Phone: Start: 10-08-2024 End: 10-08-[address] Windy Yuen MD [facility] Work Phone: Start: 10-08-2024 End: 10-08-2024 ambulatory Windy Yuen Facility:[facility] Start: 10-07-2024 End: 10-07-[address] Windy Yuen MD [facility] Work Phone: Start: 10-07-2024 End: 10-07-[address] Rg Menchaca MD Work Phone: [facility] Work Phone: Start: 10-06-2024 End: 10-06-[address] Windy Yuen MD [facility] Work Phone: Start: 10-06-2024 End: 10-06-[address] Rg Menchaca MD Work Phone: [facility] Work Phone: Start: 09-10-2024 End: 09-10-[address] Windy Yuen MD [facility] Work Phone: Start: 09-10-2024 End: 09-10-[address] Rg Menchaca MD Work Phone: [facility] Work Phone: Start: 09-09-2024 End: 09-09-[address] Windy Yuen MD [facility] Work Phone: Start: 09-09-2024 End: 09-09-[address] Rg Menchaca MD Work Phone: [facility] Work Phone: Start: 09-08-2024 End: 09-08-[address] Windy Yuen MD [facility] Work Phone: Start: 09-08-2024 End: 09-08-2024 ambulatory Windy Yuen Facility:[facility] Start: 08-13-2024 End: 08-13-[address] Windy Yuen MD -Medical Out Work Phone: Start: 08-13-2024 End: 08-13-[address] Rg Menchaca MD Work Phone: [facility] Work Phone: Start: 08-12-2024 End: 08-12-[address] Windy Yuen MD -Medical Out Work Phone: Start: 08-12-2024 End: 08-12-[address] Rg Menchaca MD Work Phone: [facility] Work Phone: Start: 08-11-2024 End: 08-11-[address] Windy Yuen MD -Medical Out Work Phone: Start: 08-11-2024 End: 08-11-[address] Rg Menchaca MD Work Phone: [facility] Work Phone: Start: 07-16-2024 End: 07-16-[address] Windy Yuen MD -Medical Out Work Phone: Start: 07-16-2024 End: 07-16-2024 ambulatory [facility] Facility:[facility] Start: 07-15-2024 End: 07-15-[address] Windy Yuen MD -Medical Out Work Phone: Start: 07-15-2024 End: 07-15-2024 ambulatory [facility] Facility:[facility] Start: 07-14-2024 End: 07-14-[address] Windy Yuen MD -Medical Out Work Phone: Start: 07-14-2024 End: 07-14-2024 ambulatory [facility] Facility:[facility] Start: 06-18-2024 End: 06-18-[address] Windy Yuen MD -Medical Out Work Phone: Start: 06-18-2024 End: 06-18-2024 ambulatory [facility] Facility:[facility] Start: 06-17-2024 End: 06-17-[address] Windy Yuen MD -Medical Out Work Phone: Start: 06-17-2024 End: 06-17-2024 ambulatory [facility] Start: 06-16-2024 End: 06-16-[address] Windy Yuen MD -Medical Out Work Phone: Start: 06-16-2024 End: 06-16-2024 [facility] Start: 05-22-2024 End: 05-22-[address] Windy Yuen MD -Medical Out Work Phone: Start: 05-22-2024 End: 05-22-2024 ambulatory [facility] Start: 05-21-2024 End: 05-21-[address] Windy Yuen MD -Medical Out Work Phone: Start: 05-21-2024 End: 05-21-2024 [facility] Start: 05-19-2024 End: 05-19-[address] Windy Yuen MD -Medical Out Work Phone: Start: 05-19-2024 End: 05-19-2024 [facility] Start: 04-23-2024 End: 04-23-[address] Windy Yuen MD -Medical Out Work Phone: Start: 04-23-2024 End: 04-23-2024 ambulatory [facility] Start: 04-22-2024 End: 04-22-[address] Windy Yuen MD -Medical Out Work Phone: Start: 04-22-2024 End: 04-22-2024 [facility] Start: 04-21-2024 End: 04-21-[address] Windy Yuen MD -Medical Out Work Phone: Start: 04-21-2024 End: 04-21-2024 ambulatory Windy Yuen Facility:[facility] Start: 02-06-2024 End: 02-06-2024 Telephone encounter Windy Yuen MD Work Phone: Neurology Comment on above: Orders (IVIG) Start: 02-05-2024 End: 02-05-2024 ambulatory WINDY YUEN Facility:[facility] Start: 02-05-2024 End: 02-05-2024 Patient encounter procedure Windy Yuen MD Work Phone: Neurology Comment on above: Stiff person syndrom e Start: 11-24-2023 Telephone encounter Windy Yuen MD Work Phone: Neurology Comment on above: Appointment (Update faxed to [facility] for appointment 02/05/24) Start: 11-14-2023 Telephone encounter Windy Yuen MD Work Phone: Neurology Start: 10-29-2023 Telephone encounter Windy Yuen MD Work Phone: Neurology Comment on above: Appointment (Appoint ment Update Faxed to [facility] for 12/17/23) Start: 10-15-2023 Telephone encounter Windy Yuen MD Work Phone: Neurology Comment on above: Patient Update Start: 09-25-2023 Telephone encounter Windy Yuen MD Work Phone: Neurology Comment on above: Appointment Start: 09-18-2023 Telephone encounter Windy Yuen MD Work Phone: Neurology Comment on above: Medication Question Start: 09-13-2023 End: 09-13-2023 ambulatory [facility] Work Phone: Start: 09-13-2023 End: 09-13-2023 Patient encounter procedure [facility]-Medical Out Work Phone: Start: 09-12-2023 End: 09-12-2023 ambulatory [facility] Work Phone: Start: 09-12-2023 End: 09-12-2023 Patient encounter procedure [facility]-Medical Out Work Phone: Start: 09-11-2023 End: 09-11-2023 ambulatory [facility] Work Phone: Start: 09-11-2023 End: 09-11-2023 Patient encounter procedure [facility]-Medical Out Work Phone: Start: 09-10-2023 End: 09-10-2023 ambulatory [facility] Work Phone: Start: 09-10-2023 End: 09-10-2023 Patient encounter procedure [facility]-Medical Out Work Phone: Start: 09-09-2023 End: 09-09-2023 ambulatory [facility] Work Phone: Start: 09-09-2023 End: 09-09-2023 Patient encounter procedure [facility]-Medical Out Work Phone: Start: 08-13-2023 Telephone encounter Windy Yuen MD Work Phone: [facility] Start: 07-31-2023 End: 07-31-2023 Patient encounter procedure [...] patient La Nena Lala MD Work Phone: [facility] Start: 05-31-2022 Telephone encounter La Nena Keen i, MD Work Phone: Endocrinology Comment on above: Appointment (Resched uladia ) Start: 04-28-2022 End: 04-29-2022 [facility] Start: 04-18-2022 ambulatory UNKNOWN PROVIDER Facili ty:[facility] Start: 04-18-2022 End: 04-18-2022 Patient encounter procedure Maryan Loving DPM Work Phone: Podiatry Comment on above: Cavovarus deformity of foot, acquired, right (Primary Dx); Other osteoporosis without current pathological fracture; Hammertoe, bilateral Start: 04-18-2022 End: 04-18-2022 Subsequent hospital visit by physician [facility] Work Phone: Radiology Comment on above: Pain [R52] Start: 03-08-2022 ambulatory Facility:[facility] Start: 03-01-2022 End: 03-01-2022 Emergency department patient visit [facility] Start: 11-15-2021 End: 11-16-2021 ambulatory UNKNOWN PROVIDER Facility:[facility] Start: 11-15-2021 End: 11-15-2021 Patient encounter procedure La Nena Lala MD Work Phone: Endocrinology Comment on above: Acquired hypothyroid ism (Primary Dx); Poorly controlled type 1 diabetes mellitus (HCC) Start: 08-30-2021 End: 08-30-2021 Emergency department patient visit Dr. Rg Menchaca Work Phone: [facility] Start: 08-19-2021 Non-patient / Non-visit Dr. Eron Menchaca Work Phone: [facility] Start: 08-18-2021 End: 08-19-2021 [facility] Procedures Date Procedure Procedure Detail Performing Clinician Start: 04-18-2022 Radex foot complete minimum 3 views Maryansantana Loving DPM Work Phone: Start: 11-15-2021 Hemoglobin A1c/Hemoglobin.total in Blood La Nena Lala MD Work Phone: SARS-CoV-2 & FLU Ant igen (Rapid) Plan of Treatment Date Care Activity Detail Author Start: 05-19-2025 End: 05-19-2025 Patient encounter procedure 05/19/2025 11:30 AM EST Office Visit Neurology [address] [place] [address] Windy Yuen MD [address] [facility] [address] [place] [address] Neurology Start: 03-04-2025 Iv infusion therapy prophylaxis/dx ea hour THER/PROPH/DIAG IV INF [facility] Start: 03-04-2025 Vedolizumab therapy THER/PROPH /DIAG IV INF [facility] Start: 02-04-2025 Intravenous infusion THER/PROP H/DIAG IV INF [facility] Start: 02-04-2025 Iv infusion therapy prophylaxis/dx ea hour THER/PROPH/DIAG IV INF [facility] Start: 02-04-2025 Therapeutic injectio n iv push each new drug TX/PRO/DX INJ NEW DRUG [facility] Start: 01-18-2025 Influenza vaccination Influenz a Vaccine (Season Ended) [facility] Start: 01-07-2025 Intravenous infusion THER/PROP H/DIAG IV INF [facility] Start: 01-07-2025 Iv infusion therapy prophylaxis/dx ea hour THER/PROPH/DIAG IV INF [facility] Start: 01-07-2025 Iv infusion therapy/prophylaxis /dx 1st to 1 hr THER/PROPH/DIAG IV INF [facility] Start: 01-07-2025 Therapeutic injectio n iv push each new drug TX/PRO/DX INJ NEW DRUG [facility] Start: 12-03-2024 Iv infusion therapy prophylaxis/dx ea hour THER/PROPH/DIAG IV INF [facility] Start: 12-03-2024 Iv infusion therapy/prophylaxis /dx 1st to 1 hr THER/PROPH/DIAG IV INF [facility] Start: 12-03-2024 Therapeutic injectio n iv push each new drug TX/PRO/DX INJ NEW DRUG [facility] Start: 11-04-2024 Iv infusion therapy prophylaxis/dx ea hour THER/PROPH/DIAG IV INF [facility] Start: 11-04-2024 Iv infusion therapy/prophylaxis /dx 1st to 1 hr THER/PROPH/DIAG IV INF [facility] Start: 11-04-2024 Therapeutic injectio n iv push each new drug TX/PRO/DX INJ NEW DRUG [facility] Start: 10-07-2024 Iv infusion therapy prophylaxis/dx ea hour THER/PROPH/DIAG IV INF [facility] Start: 10-07-2024 Iv infusion therapy/prophylaxis /dx 1st to 1 hr THER/PROPH/DIAG IV INF [facility] Start: 10-07-2024 Therapeutic injectio n iv push each new drug TX/PRO/DX INJ NEW DRUG [facility] Start: 09-10-2024 Iv infusion therapy prophylaxis/dx ea hour THER/PROPH/DIAG IV INF [facility] Start: 09-10-2024 Iv infusion therapy/prophylaxis /dx 1st to 1 hr THER/PROPH/DIAG IV INF [facility] Start: 09-10-2024 Therapeutic injectio n iv push each new drug TX/PRO/DX INJ NEW DRUG [facility] Start: 08-11-2024 Iv infusion therapy prophylaxis/dx ea hour THER/PROPH/DIAG IV INF [facility] Start: 08-11-2024 Iv infusion therapy/prophylaxis /dx 1st to 1 hr THER/PROPH/DIAG IV INF [facility] Start: 08-11-2024 Therapeutic injectio n iv push each new drug TX/PRO/DX INJ NEW DRUG [facility] Start: 08-11-2024 End: 08-11-2024 Patient encounter procedure 08/11/2024 12:00 PM EDT Office Visit Neurology [address] [place] [address] Widny Yuen MD [address] [place] [address] 6 mo Neurology Comment on above: 6 mo Start: 07-16-2024 Iv infusion therapy prophylaxis/dx ea hour THER/PROPH/DIAG IV INF [facility] Start: 07-16-2024 Iv infusion therapy/prophylaxis /dx 1st to 1 hr THER/PROPH/DIAG IV INF [facility] Start: 07-16-2024 Therapeutic injectio n iv push each new drug TX/PRO/DX INJ NEW DRUG [facility] Start: 05-20-2024 Advance Directive Discussion Advance Directive Discussion [facility] Start: 05-20-2024 Medicare Advantage Annual Wellness Visit Medicare Advantage Annual Wellness Visit [facility] Start: 02-05-2024 End: 02-05-2024 Patient encounter procedure 02/05/2024 11:30 AM EDT Office Visit Neurology [address] [facility] [address] [place] [address] Windy Yuen MD [address] [facility] [address] [place] [address] 3 mo follow up Neurology Comment on above: 3 mo follow up Start: 01-19-2024 Covid-19 Vaccine ( season) Covid-19 Vaccine ( season) [facility] Start: 01-19-2024 Covid-19 Vaccine ( season) Covid-19 Vaccine ( season) [facility] Start: 01-19-2024 Influenza vaccination [facility] Start: 12-17-2023 End: 12-17-2023 Patient encounter procedure 12/17/2023 12:00 PM EDT Office Visit Neurology [address] [facility] [address] [place] [address] Windy Yuen MD [address] [facility] [address] [place] [address] 3 mo follow up- 09/24 Fanbase message sent to patient. Dr Yuen is out of office-CC Neurology Comment on above: 3 mo follow up- 09/24 mychart message sent to patient. Dr Yuen is out of office-CC Start: 11-05-2023 End: 11-05-2023 Patient encounter procedure Neurology Comment on above: 3 mo follow up 3 mo follow up- 09/24 Ascadehart message sent to patient. Dr Yuen is out of office-CC Start: 05-20-2023 Advance Directive Discussion Advance Directive Discussion [facility] Start: 05-20-2023 Behavioral Health Screening Behavioral Health Screening [facility] Start: 05-20-2023 Depression Assessment Depression Ass essment [facility] Start: 01-18-2023 Covid-19 Vaccine () Covid-19 Vaccine () [facility] Start: 01-18-2023 Influenza vaccination Influenza Vacc ine (#1) [facility] Start: 11-15-2022 3 comp foot exam completed DIABETIC FOOT EXAM [facility] Start: 11-15-2022 Diabetic foot examination Diabetic Foot Exam [facility] Start: 05-20-2022 ADVANCE DIRECTIVE DISCUSSION ADVANCE DIRECTIVE DISCUSSION [facility] Start: 05-20-2022 DEPRESSION ASSESSMENT DEPRESSION ASS ESSMENT [facility] Start: 02-15-2022 Hemoglobin A1c measurement HbA1C [facility] Start: 02-15-2022 Hemoglobin A1c/Hemoglobin.total in Blood HBA1C [facility] Start: 01-18-2022 [facility] Start: 11-15-2021 End: 01-15-2022 C peptide [Mass/volume] in Serum or Plasma [facility] Work Phone: Comment on above: Expected: 11/15/2021 , Expires: 01/15/2022 Start: 11-15-2021 End: 11-15-2022 Glutamate decarboxylase 65 Ab [Units/volume] in Serum [facility] Work Phone: Comment on above: Expected: 11/15/2021 , Expires: 11/15/2022 Start: 11-15-2021 End: 11-15-2022 INSULIN ANTIBODY BLD [facility] Work Phone: Comment on above: Expected: 11/15/2021 , Expires: 11/15/2022 Start: 11-15-2021 End: 01-15-2022 INSULINOMA ASSOCIATED ANTIBODY 2 [facility] Work Phone: Comment on above: Expected: 11/15/2021 , Expires: 01/15/2022 Start: 11-15-2021 End: 11-15-2022 Pancreatic islet cell Ab [Titer] in Serum [facility] Work Phone: Comment on above: Expected: 11/15/2021 , Expires: 11/15/2022 Start: 11-15-2021 End: 01-15-2022 Thyroxine (T4) free [Mass/volume] in Serum or Plasma [facility] Work Phone: Comment on above: Expected: 11/15/2021 , Expires: 01/15/2022 Start: 05-20-2021 ADVANCE DIRECTIVE DISCUSSION ADVANCE DIRECTIVE DISCUSSION [facility] Start: 05-20-2021 DEPRESSION ASSESSMENT DEPRESSION ASS ESSMENT [facility] Start: 04-17-2021 COVID-19 VACCINE (2 - Pfizer series) COVID-19 VACCINE (2 - Pfizer series) [facility] Start: 04-21-2019 ANNUAL PCP TEAM MOLDED CANDLES WICKER ANDREY DISEASE VISIT ANNUAL PCP TEAM CHRONIC DISEASE VISIT [facility] Start: 03-08-2018 Hepatitis B surface antibody level LDL CHOLESTEROL [facility] Start: 2017 RSV Vaccine (1 - 1-d ose 75+ series) RSV Vaccine (1 - 1-dose 75+ series) [facility] Start: 05-21-2016 PNEUMOCOCCAL: 65+ (2 - PPSV23 if available, else PCV20) PNEUMOCOCCAL: 65+ (2 - PPSV23 if available, else PCV20) [facility] Start: 05-21-2016 PNEUMOCOCCAL: 65+ (2 - PPSV23 or PCV20) PNEUMOCOCCAL: 65+ (2 - PPSV23 or PCV20) [facility] Start: 07-16-2015 Pneumococcal Vaccine : 50+ (2 of 2 - PPSV23) Pneumococcal Vaccine: 50+ (2 of 2 - PPSV23) [facility] Start: 07-16-2015 Pneumococcal Vaccine : 65+ (2 - PPSV23 or PCV20) Pneumococcal Vaccine: 65+ (2 - PPSV23 or PCV20) [facility] Start: 07-16-2015 Pneumococcal Vaccine : 65+ (2 of 2 - PPSV23 or PCV20) Pneumococcal Vaccine: 65+ (2 of 2 - PPSV23 or PCV20) [facility] Start: 07-16-2015 PNEUMOCOCCAL: 65+ (2 - PPSV23 if available, else PCV20) PNEUMOCOCCAL: 65+ (2 - PPSV23 if available, else PCV20) [facility] Start: 2007 BONE DENSITY BONE DENSITY [facility] Start: 2007 Bone Density Screening Bone Density Screening [facility] Start: 2007 Screening for osteoporosis Bone Density Screening [facility] Start: 2002 Hepatitis B Vaccine (1 of 3 - Risk 3-dose series) Hepatitis B Vaccine (1 of 3 - Risk 3-dose series) [facility] Start: 2002 RSV Vaccine (1 - 1-d ose 60+ series) RSV Vaccine (1 - 1-dose 60+ series) [facility] Start: 1992 SHINGRIX VACCINE (1 of 2) SHINGRIX VACCINE (1 of 2) [facility] Start: 1961 Urine microalbumin profile [facility] Start: 1960 Depression Screening Depression Scre ening [facility] Start: 1954 Adult depression screening assessment DEPRESSION SCREENING [facility] Start: 1952 Glaucoma screening Dilated Retinal E xam [facility] Start: 1952 Hepatitis B screening URINE ALBUMIN:CREATININE RATIO [facility] Start: 1952 Hepatitis C antibody , confirmatory test DILATED RETINAL EXAM [facility] Patient Education [facility] Work Phone: Patient referral [facility] Work Phone: [facility] Immunizations Immunization Date Immunization Notes Care Provider Fa cility 08-24-2020 influenza, injectabl e, quadrivalent, preservative free [facility] 08-24-2020 influenza, seasonal, injectable Dr. Rg Menchaca Work Phone: [facility] Work Phone: 08-24-2020 influenza virus vaccine, unspecified formulation Luis Eduardo Clemons Jr., MD Work Phone: [facility] 04-07-2018 Influenza virus vaccine [facility] 03-14-2018 influenza, high dose seasonal, preservative-free La Nena Lala MD Work Phone: [facility] Work Phone: 2017 influenza, high dose seasonal, preservative-free La Nena Lala MD Work Phone: [facility] 05-21-2015 pneumococcal conjuga te vaccine, 13 valent La Nena Lala MD Work Phone: [facility] Payers Date Payer Category Payer Unknown [id number] 2024 Self-pay [id number] 2022 Medicare [facility] DUAL [employer] HMO POS SNP [id number] 2022-Present [phone] [place] [id number] Medicare [id number] 2022 Medicare (Managed Care) [employer] DUAL COMPLETE HMO POS SNP [id number] 2022 Unknown [id number] 2021 Medicaid [employer] MEDICA[employer] MYC ARE [employer]ICA[employer] [id number] 2021-Present [phone] [address] [place] [address] Medicaid [id number] 2021 Medicaid [id number] 2021 Unknown [id number] Medicare [id number] Unknown [id number] 2.16.840.1.718873.3.579.2. 462 Unknown [id number] 2.16.840.1.501458.3.579.2. 462 Unknown [id number] 2.16.840.1.825391.3.579.2. 462 Unknown [id number] 2.16.840.1.643877.3.579.2. 462 Unknown [id number] 2.16.840.1.341832.3.579.2. 462 Unknown [id number] 2.16.840.1.948278.3.579.2. 462 Unknown [id number] 2.16.840.1.667527.3.579.2. 462 Unknown [id number] 2.16.840.1.719340.3.579.2. 462 Unknown [id number] 2.16.840.1.978480.3.579.2. 462 Unknown [id number] 2.16.840.1.547338.3.579.2. 462 Unknown [id number] 2.16.840.1.465285.3.579.2. 462 Unknown [id number] 2.16.840.1.570047.3.579.2. 462 Unknown [id number] 2.16.840.1.635417.3.579.2. 462 Unknown [id number] 2.16.840.1.110078.3.579.2. 462 Unknown [id number] 2.16.840.1.916720.3.579.2. 462 Unknown [id number] 2.16.840.1.477484.3.579.2. 462 Unknown [id number] 2.16.840.1.717562.3.579.2. 462 Unknown [id number] 2.16.840.1.882701.3.579.2. 462 Unknown [id number] 2..840.1.430367.3.579.2. 462 Unknown [id number] 2.840.1.360184.3.579.2. 462 Unknown [id number] 2..840.1.871549.3.579.2. 462 Unknown [id number] 2.840.1.228131.3.579.2. 462 Unknown [id number] 2.840.1.202812.3.579.2. 462 Unknown [id number] 2.840.1.997613.3.579.2. 462 Unknown [id number] 2..840.1.369286.3.579.2. 462 Unknown [id number] 2.840.1.499156.3.579.2. 462 Unknown [id number] 2.840.1.183515.3.579.2. 462 Unknown [id number] 2.16.840.1.211976.3.579.2. 462 Unknown [id number] 2.16.840.1.841218.3.579.2. 462 Unknown [id number] 2.16.840.1.131024.3.579.2. 462 Unknown [id number] 2.16.840.1.645083.3.579.2. 462 Unknown [id number] 2.840.1.023657.3.579.2. 462 Unknown [id number] 2.16.840.1.843747.3.579.2. 462 Unknown [id number] 2.16.840.1.376633.3.579.2. 462 Unknown [id number] 2.16.840.1.917875.3.579.2. 462 Unknown [id number] 2.16.840.1.916809.3.579.2. 462 Unknown [id number] 2.16.840.1.992104.3.579.2. 462 Unknown [id number] 2.16.840.1.803413.3.579.2. 462 Unknown [id number] 2.16.840.1.122281.3.579.2. 462 Social History Date Type Detail Facility Start: 08-18-2021 End: 04-28-2022 [facility] if ever smoked [facility] Start: 11-28-2018 None [facility] Start: 11-28-2018 Fdc [facility] Start: 11-28-2018 Non-smoker [facility] Start: 1940 Sex Assigned At Female C [facility] Start: 01-07-2018 End: 04-28-2022 Tobacco smoking status NHIS Ex-smoker [facility] Start: 01-07-2018 End: 07-31-2023 Tobacco use and exposure Smokeless tobacco non-user [facility] Start: 1940 Sex Assigned At Not on file [facility] Start: 11-05-2021 End: 04-18-2022 Exposure to SARS-CoV-2 (event) Not sure [facility] History of tobacco use Current smoker [facility] Start: 04-18-2022 End: 02-05-2024 Alcohol intake Ex-drinker (finding) [facility] Start: 04-18-2022 End: 02-05-2024 History of Social function [facility] Start: 04-18-2022 End: 02-05-2024 Tobacco use panel [facility] National Score (1-10 0), lower number is lower risk 70 [facility] Start: 05-31-2022 Gender identity Identifies as female gender (finding) [facility] Start: 05-31-2022 Sexual orientation Heterosexual (tenzin ayala) [facility] Start: 08-12-2024 End: 09-11-2024 Sex Female (finding) [facility] Medical Equipment Procedure Code Equipment Code Equipment Origin al Text Equipment Identifier Dates Check blood suga r 4 times daily as intructed. Dx: E11.9. Insulin: yes [id number] Start: 01-17-2018 Comment on above: Check blood sugar 4 times daily as intructed. Dx: E11.9. Insulin: yes Functional Status Date Assessment Result Facility 08-19-2021 Functional status Activity Abili ty With Assist of 2 [facility] Work Phone: Mental Status Date Assessment Result Facility 03-04-2025 Cognitive function Awake [facility] Work Phone: 03-03-2025 Cognitive function Voice/Name [facility] Work Phone: 03-02-2025 Cognitive function Awake [facility] Work Phone: 02-02-2025 Cognitive function Awake;Alert;A ppropriate;Follow s Commands [facility] Work Phone: 01-08-2025 Cognitive function Awake;Alert;A ppropriate;Follow s Commands [facility] Work Phone: 01-07-2025 Cognitive function Awake;Alert;A ppropriate;Follow s Commands [facility] Work Phone: 01-06-2025 Cognitive function Awake;Alert;A ppropriate;Follow s Commands [facility] Work Phone: 12-03-2024 Cognitive function Awake;Alert;A ppropriate;Follow s Commands [facility] Work Phone: 12-02-2024 Cognitive function Voice/Name [facility] Work Phone: 12-01-2024 Cognitive function Awake;Alert;A ppropriate;Follow s Commands [facility] Work Phone: 11-05-2024 Cognitive function Voice/Name [facility] Work Phone: 11-04-2024 Cognitive function Voice/Name [facility] Work Phone: 11-03-2024 Cognitive function Voice/Name [facility] Work Phone: 10-07-2024 Cognitive function Voice/Name [facility] Work Phone: 10-06-2024 Cognitive function Voice/Name [facility] Work Phone: 09-10-2024 Cognitive function Awake;Alert;A ppropriate;Follow s Commands [facility] Work Phone: 09-09-2024 Cognitive function Awake;Alert;A ppropriate;Follow s Commands [facility] Work Phone: 09-08-2024 Cognitive function Awake;Alert;A ppropriate;Follow s Commands [facility] Work Phone: 08-13-2024 Cognitive function Awake;Alert;A ppropriate;Follow s Commands [facility] Work Phone: 08-12-2024 Cognitive function Awake;Alert;A ppropriate;Follow s Commands [facility] Work Phone: 08-11-2024 Cognitive function Awake;Alert;A ppropriate;Follow s Commands [facility] Work Phone: 07-16-2024 Cognitive function Voice/Name [facility] Work Phone: 07-14-2024 Cognitive function Awake;Alert;A ppropriate;Follow s Commands [facility] Work Phone: 06-18-2024 Cognitive function Awake;Alert;A ppropriate;Follow s Commands [facility] Work Phone: 06-17-2024 Cognitive function Voice/Name [facility] Work Phone: 06-16-2024 Cognitive function Awake;Alert;A ppropriate;Follow s Commands [facility] Work Phone: 05-21-2024 Cognitive function Awake;Alert;A ppropriate;Follow s Commands [facility] Work Phone: 04-23-2024 Cognitive function Awake;Alert;A ppropriate;Follow s Commands [facility] Work Phone: 04-22-2024 Cognitive function Awake;Alert;A ppropriate;Follow s Commands [facility] Work Phone: 04-21-2024 Cognitive function Voice/Name [facility] Work Phone: 09-13-2023 Cognitive function Awake;Alert;A ppropriate;Follow s Commands [facility] Work Phone: 09-12-2023 Cognitive function Level Of Cons ciousness Awake;Alert;Appropriate;Follow s Commands [facility] Work Phone: 09-11-2023 Cognitive function Awake;Alert;A ppropriate;Follow s Commands [facility] Work Phone: 09-10-2023 Cognitive function Voice/Name [facility] Work Phone: 09-09-2023 Cognitive function Awake;Alert;A ppropriate;Follow s Commands [facility] Work Phone: 03-01-2022 Cognitive function Level Of Cons ciousness Awake;Alert;Appropriate;Follow s Commands [facility] Work Phone: 08-30-2021 Cognitive function Level Of Cons ciousness Awake;Alert;Appropriate;Follow s Commands [facility] Work Phone: 08-19-2021 Cognitive function Voice/Name [facility] Work Phone: Clinical Notes 11-15-2021 to 11-11-2024 Patient InstructionsWindy Yuen MD - 11/11/2024 12:00 PM EDTTelephone Encounter - Kellen Duran LPN - 02/06/2024 8:02 AM Windy Tidwell MD - 02/05/2024 11:24 AM EDT Note Date & Type Note Facility 11-11-2024 Instructions Windy Yuen MD - 11/11/2024 12:38 PM EDT - Continue your IVIG infusions at [facility] as before, with three consecutive treatment [...] the year. Please call my office at [phone] if you need help coordinating your care. documented in this encounter [facility] 11-11-2024 History of Presen t illness Narrative [...] straightening out slightly. She mentions that a fabric sourcer advised against surgery due to her age. Romain is currently receiving IVIG therapy at [facility], which began with five days [...] syndrome Confirmed with qulitative and quantitative testing (camillus) demonstrating high ab titer som 65 lab [...] 2g/kg IBW) Fax order to Madelaine at [facility] at [phone] RTC 6 months documented in this encounter [facility] 11-11-2024 Note HNO ID: [id number] Author: WINDY YUEN MD Service: ? Author [...] straightening out slightly. She mentions that a fabric sourcer advised against surgery due to her age. Romain is currently receiving IVIG therapy at [facility], which began with five days [...] syndrome Confirmed with qulitative and quantitative testing (camillus) demonstrating high ab titer som 65 lab [...] 2g/kg IBW) Fax order to Madelaine at [facility] at [phone] RTC 6 months [facility] 02-06-2024 Miscellaneous Notes IVIG order was faxed to Madelaine at [facility] at [phone] with confirmation. documented in this encounter [facility] 02-06-2024 Telephone encounter Note IVIG order was faxed to Madelaine at [facility] at [phone] with confirmation. [facility] 02-05-2024 Note HNO ID: [id number] Author: WINDY YUEN MD Service: ? Author [...] syndrome Confirmed with qulitative and quantitative testing (camillus) demonstrating high ab titer som 65 lab [...] 2g/kg IBW) Fax order to Madelaine at [facility] at [phone] RTC 6 months [facility] 02-05-2024 History of Presen t illness [...] syndrome Confirmed with qulitative and quantitative testing (camillus) demonstrating high ab titer som 65 lab [...] 2g/kg IBW) Fax order to Madelaine at [facility] at [phone] RTC 6 months documented in this encounter [facility] 11-24-2023 Telephone encounter Note Patient's appointment changed from 12/17/23 to 02/05/[address] Yuen being out of the office. Appointment details faxed as requested by daughterNyla, so patient will have transportation for appointment. Faxed to [facility] [place]: [phone] Confirmation ok. [facility] 11-24-2023 Miscellaneous Notes Patient's appointment changed from 12/17/23 to 02/05/[address] Yuen being out of the office. Appointment details faxed as requested by daughter, Nyla, so patient will have transportation for appointment. Faxed to [facility] [place]: [phone] Confirmation ok. documented in this encounter [facility] 10-29-2023 Telephone encounter Note Faxed appointment change/reminder to [facility] [place]: [phone]. Confirmation ok. Appointment date for 12/17/23 arrive by 11:45am. [facility] 10-29-2023 Miscellaneous Notes Faxed appointment change/reminder to [facility] [place]: [phone]. Confirmation ok. Appointment date for 12/17/23 arrive by 11:45am. documented in this encounter [facility] 10-15-2023 Telephone encounter Note Pt daughter would like to speak to Dr Yuen via phone regarding noted changed in mother since starting her injections with her Insulin levels as well as Muscle Spasms [facility] 10-15-2023 Miscellaneous Notes Pt daughter would like to speak to Dr Yuen via phone regarding noted changed in mother since starting her injections with her Insulin levels as well as Muscle Spasms documented in this encounter [facility] 09-18-2023 Telephone encounter Note Spoke to Madelaine and relayed message from provider, she voiced understanding at this time and will let patient and daughter know. [facility] 09-18-2023 Miscellaneous Notes Spoke to Madelaine and [...] tolerates the medication well. Per Madelaine from [facility], this patient's daughter would like to have her IVIG dose changed to a higher dose for a shorter duration. States this was discussed with Dr. Yuen previously. Please advise if this is correct and if so, please call Madelaine back at [phone]. A new order and authorization will be needed. documented in this encounter [facility] 09-18-2023 Telephone encounter Note We should keep [...] and that she tolerates the medication well. [facility] 09-18-2023 Telephone encounter Note Per Madelaine from [facility], this patient's daughter would like to have her IVIG dose changed to a higher dose for a shorter duration. States this was discussed with Dr. Yuen previously. Please advise if this is correct and if so, please call Madelaine back at [phone]. A new order and authorization will be needed. [facility] 08-13-2023 Miscellaneous Notes Faxed office notes, demographic sheet, copy of insurance, we don't have a copy of insurance cards to [phone]. documented in this encounter [facility] 07-31-2023 History of Presen t illness Narrative [...] faxed to Madelaine at [facility] at [phone] with confirmation. Our office Spoke to Madelaine and she stated that the patient will need documentation showing a failure or inability to tolerate the baclofen, in order to get approved for Gammagard. And needs progress note faxed to their office at [phone]. It seems like there was a misunderstanding; [...] syndrome Confirmed with qulitative and quantitative testing (camillus) demonstrating high ab titer som 65 lab [...] RTC 3 months documented in this encounter [facility] 03-25-2023 Miscellaneous Notes The listed home phone number for the patient is her daughter Nyla's phone. Nyla was notified of the canceled appointment and new appointment. The daughter was instructed that the patient must have someone accompany her to the appointment. The patient resides at the [place] at [facility]. Suzanne. [phone] and spoke with [...] The appointment reminder was faxed to the [place]. TC to daughter regarding upcoming appointment with Dr. Celmons. 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 Pt will need to be seen by neuromuscular for treatment and care, per . Samira Vieira LPN documented in this encounter [facility] 07-20-2022 Miscellaneous Notes completed a Virtual Visit with patient and facility. CLOSED Called patients daughter Nyla and left to call back office at [phone]. 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 Nyla [phone] documented in this encounter [facility] 06-12-2022 Miscellaneous Notes Faxed new orders to the [facility] at [phone],transmission ok CLOSED Addended by: LA NENA LALA [...] Please advise, thanks. documented in this encounter [facility] 06-04-2022 Instructions La Nena Lala MD - 06/04/2022 3:04 PM EST Images from the original note were not included. - Please do blood tests to check TSH, free T4 and A1c, and fax the results to us on [phone] - Please fax the glucose values from the last 2 weeks to us - Do not eat more than 60 g of carbs per meal. documented in this encounter [facility] 06-04-2022 History of Presen t illness Narrative ENDOCRINOLOGY CLINIC NOTE Ms. Mcdermott is a 82 year old female with T1DM and hypothyroidism presented for follow-up of hypothyroidism and diabetes. 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 She saw a fabric sourcer before and was told that she had [...] give the instructions. [facility] phone number is [phone] Some of the above has been copied from prior documentation on 11/15/2021 but foster elements reviewed, confirmed, and/or updated by me (La Nena Lala MD) on 06/04/2022 I spent a total of 40 minutes on the date of the service which included preparing to see the patient, [id number] patient care, completing clinical documentation, obtaining and/or reviewing separately obtained history, and counseling and educating the patient/family/caregiver. Virtual Visit (Audio/Visual)I have discussed the nature of this visit with the patient which will occur via [facility] (Phone, Virtual Visit) and she agrees to proceed with this interaction. La Nena Lala MD documented in this encounter [facility] 04-18-2022 Note HNO ID: [id number] Author: AVELINO Kahn Service: Radiology Author Type: [...] AVELINO Kahn April 18, 2022 3:06 PM [facility] 04-18-2022 History of Presen t illness [...] (POCT) (%) Date Value 11/15/2021 8.1 PCP: gR Menchaca MD, MD PAST MEDICAL HISTORY Diagnosis [...] PRN. Maryan Loving DPM, DABJOSE, FACFAS Pager: [phone] [facility] [place] [facility] and [facility] locations documented in this encounter [facility] 04-18-2022 History of Presen t illness Narrative [...] 2022 3:06 PM documented in this encounter [facility] 11-15-2021 History of Presen t illness Narrative [...] to R foot deformity. She saw a fabric sourcer before and was told that she had [...] which included preparing to see the patient, [id number] patient care, completing clinical documentation, obtaining and/or reviewing separately obtained history, performing a medically appropriate examination, counseling and educating the patient/family/caregiver and ordering medications, tests, or procedures. La Nena Lala MD documented in this encounter [facility] 11-15-2021 Instructions La Nena Lala MD - [...] referred you to orthopedic surgery. Please call [phone] To schedule documented in this encounter [facility] Evaluation note Diagnosis Onset Date SHEKHAR (acute kidney injury) ac nisqually Hyperglycemia due to diabetes mellitus [facility] Work Phone: Evaluation note* Diagnosis Acquired hypothyroidism- Primary Unspecified hypothyroidism Poorly controlled type 1 diabetes mellitus (HCC) Type I (juvenile type) diabetes mellitus without mention of complication, not stated as uncontrolled [facility] Diagnosis Cavovarus deformity of foot, acquired, right- Primary Other osteoporosis without current pathological fracture Hammertoe, bilateral [facility] noteNo [facility] information [facility] Work Phone: Evaluation note* Diagnosis Poorly controlled type 1 diabetes mellitus (HCC)- Primary Type I (juvenile type) diabetes mellitus without mention of complication, not stated as uncontrolled Acquired hypothyroidism Unspecified hypothyroidism [facility] Diagnosis Controlled type 2 diabetes mellitus without complication, with long-term current use of insulin (HCC) [facility] 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 If you have any further concerns please return [facility] Work Phone: Rehyfd for referral (narrative)* Diagnostic Procedure Only (Routine) - Closed Specialty Diagnoses / Procedures Referred By Contac t Referred To Contact XR IMAGING Diagnoses Pain Procedures XR FOOT GENERAL 3V AP/LAT/OBL RIGHT RADEX FOOT COMPLETE MINIMUM 3 VIEWS Maryan Loving DPM [id number] [place] [id number] Xr Imaging [facility]95 Referral ID Status Reason Start Date Expiration Date V isits Requested Visits Authorized [id number] Closed Auto-Generate d Referral 12/04/2021 01/03/2023 1 1 [place] for referral (narrative)No reason for referral information availableWMemorial Hospital Work Phone: Reason for visit Narrative* Diagnostic Procedure Only (Routine) - Closed Specialty Diagnoses / Procedures Referred By Contac t Referred To Contact XR IMAGING Diagnoses Pain Procedures XR FOOT GENERAL 3V AP/LAT/OBL RIGHT RADEX FOOT COMPLETE MINIMUM 3 VIEWS Maryan Loving DPM [id number] [place] [id number] Xr Imaging [facility]95 Referral ID Status Reason Start Date Expiration Date V isits Requested Visits Authorized [id number] Closed Auto-Generate d Referral 12/04/2021 01/03/2023 1 1 [facility] Chief Complaint and Reason for Visit Chief [...] No August 18, 2021 6:10pm Power of Order Takers Supervisor No August 18 6:10pm Advance Directive Response Recorded Date/ Time Living Will No August 18, 2021 9:27pm Power of Order Takers Supervisor No August 18 9:27pm Advance Directive Response Recorded Date/ Time Living Will No August 30, 2021 6:13pm Power of Order Takers Supervisor No August 30 6:13pm Advance Directive Response Recorded Date/ Time Name of Medical Power of Order Takers Supervisor Nyla Mcnulty April 28, 2022 10:03pm Living Will Yes April 28, 022 10:03pm Power of Order Takers Supervisor Yes April 28, 2022 10:03pm Advance Directive Response Recorded Date/ Time Living Will Yes April 28, 022 11:03pm Power of Order Takers Supervisor Yes April 28, 2022 11:03pm Reason for Referral Specialty Diagnoses / Procedures Referred By Saurav jameson Referred To Contact Orthopedics Diagnoses Acquired hypothyroidism Poorly controlled type 1 diabetes mellitus (HCC) Procedures CONSULT TO ORTHOPAEDICS OFFICE/OUTPATIENT [facility] MDM 60-74 MINUTES La Nena Lala MD [address] [place] [address] Referral ID Status Reason Start Date Expiration Date Visits Requested Visits Authorized [id number] Authorized PCP Requested Referral 11/15/2021 11/15/2022 1 1 Specialty Diagnoses / Procedures Referred By Contac t Referred To Contact Diagnoses Stiff person syndrome Procedures PROVIDER ORDERED FOLLOW UP OFFICE/OUTPATIENT [facility] MDM 60 MINUTES Windy Yuen MD [address] [address] Referral ID Status Reason Start Date Expiration Date Visits Requested Visits Authorized [id number] Authorized PCP Requested Referral 10/31/2023 07/30/2024 1 [...] or prosecute any alcohol or drug abuse patient.[facility] the event this information is protected by the Federal Confidentiality of Alcohol and Drug Abuse Patient Records regulations: The Federal rules restrict any use of the information to criminally investigate or prosecute any alcohol or drug abuse patient.[facility] the event this information is protected by the Federal Confidentiality of Alcohol and Drug Abuse Patient Records regulations: The Federal rules restrict any use of the information to criminally investigate or prosecute any alcohol or drug abuse patient.[facility] the event this information is protected by the Federal Confidentiality of Alcohol and Drug Abuse Patient Records regulations: The Federal rules restrict any use of the information to criminally investigate or prosecute any alcohol or drug abuse patient.[facility] the event this information is protected by the Federal Confidentiality of Alcohol and Drug Abuse Patient Records regulations: The Federal rules restrict any use of the information to criminally investigate or prosecute any alcohol or drug abuse patient.[facility] the event this information is protected by the Federal Confidentiality of Alcohol and Drug Abuse Patient Records regulations: The Federal rules restrict any use of the information to criminally investigate or prosecute any alcohol or drug abuse patient.[facility] the event this information is protected by the Federal Confidentiality of Alcohol and Drug Abuse Patient Records regulations: The Federal rules restrict any use of the information to criminally investigate or prosecute any alcohol or drug abuse patient.[facility] the event this information is protected by the Federal Confidentiality of Alcohol and Drug Abuse Patient Records regulations: The Federal rules restrict any use of the information to criminally investigate or prosecute any alcohol or drug abuse patient.[facility] the event this information is protected by the Federal Confidentiality of Alcohol and Drug Abuse Patient Records regulations: The Federal rules restrict any use of the information to criminally investigate or prosecute any alcohol or drug abuse patient.[facility] the event this information is protected by the Federal Confidentiality of Alcohol and Drug Abuse Patient Records regulations: The Federal rules restrict any use of the information to criminally investigate or prosecute any alcohol or drug abuse patient.[facility] the event this information is protected by the Federal Confidentiality of Alcohol and Drug Abuse Patient Records regulations: The Federal rules restrict any use of the information to criminally investigate or prosecute any alcohol or drug abuse patient.[facility] the event this information is protected by the Federal Confidentiality of Alcohol and Drug Abuse Patient Records regulations: The Federal rules restrict any use of the information to criminally investigate or prosecute any alcohol or drug abuse patient.[facility] the event this information is protected by the Federal Confidentiality of Alcohol and Drug Abuse Patient Records regulations: The Federal rules restrict any use of the information to criminally investigate or prosecute any alcohol or drug abuse patient.[facility] the event this information is protected by the Federal Confidentiality of Alcohol and Drug Abuse Patient Records regulations: The Federal rules restrict any use of the information to criminally investigate or prosecute any alcohol or drug abuse patient.[facility] the event this information is protected by the Federal Confidentiality of Alcohol and Drug Abuse Patient Records regulations: The Federal rules restrict any use of the information to criminally investigate or prosecute any alcohol or drug abuse patient.[facility] the event this information is protected by the Federal Confidentiality of Alcohol and Drug Abuse Patient Records regulations: The Federal rules restrict any use of the information to criminally investigate or prosecute any alcohol or drug abuse patient.[facility] the event this information is protected by the Federal Confidentiality of Alcohol and Drug Abuse Patient Records regulations: The Federal rules restrict any use of the information to criminally investigate or prosecute any alcohol or drug abuse patient.[facility] the event this information is protected by the Federal Confidentiality of Alcohol and Drug Abuse Patient Records regulations: The Federal rules restrict any use of the information to criminally investigate or prosecute any alcohol or drug abuse patient.[facility] Reason for Visit (unrecogniz ed section and [...] Appointment Update F [facility]ed to [facility] [place] for 12/17/23 Reason Comments Appointment Update faxed to [facility] [place] for appointment 02/05/24 Reason Comments Follow Up Patient states no ch anges. Reason Comments Orders IVIG INFORMATION SOURCE (unrecogn ized section and content) DATE CREATED AUTHOR 03/15/2022 [facility] [place], [facility] DATE CREATED AUTHOR AUTHOR'S ORGANIZ ATION 04/19/2022 [facility] DATE CREATED AUTHOR AUTHOR'S ORGANIZ ATION 11/15/2024 [facility] DATE CREATED AUTHOR AUTHOR'S ORGANIZ ATION 03/31/2025 [facility] Care Teams (unrecognized sec tion and content) Dried Fruit Washer Relationship Specialty Start Date End Date Rg Menchaca MD [address] [facility] [address] [place], [place] [id number] PCP - General Family Medicine 04/18/22 Dried Fruit Washer Relationship Specialty Start Date End Date Rg Menchaca MD [address] [facility] [address] [place], [place] [id number] PCP - General Family Medicine 04/18/22 Dried Fruit Washer Relationship Specialty Start Date End Date Rg Menchaca MD [address] [facility] [address] [place] [address] PCP - General Family Medicine 04/18/22 Dried Fruit Washer Relationship Specialty Start Date End Date Rg Menchaca MD [address] [facility] [address] [place] [address] PCP - General Family Medicine 04/18/22 Dried Fruit Washer Relationship Specialty Start Date End Date Rg Menchaca MD [address] [facility] [address] [place] [address] PCP - General Family Medicine 04/18/22 Dried Fruit Washer Relationship Specialty Start Date End Date Rg Menchaca MD [address] [facility] [address] [place] [address] PCP - General Family Medicine 04/18/22 Dried Fruit Washer Relationship Specialty Start Date End Date Rg Menchaca MD [address] [facility] [address] [place] [address] PCP - General Family Medicine 04/18/22 Team Status: Active Member Role Status Dates Dr. Rg Menchaca MD Family Provider Active Dr. Rg Menchaca MD Primary Care Provider Active Team Status: Inactive Member Role Status Dates Dr. Rg Menchaca MD Primary Care Provider Active [facility] Attending Provider, Referring Provide r Active Dried Fruit Washer Relationship Specialty Start Date End Date Rg Menchaca MD [address] [facility] [address] [place] [address] PCP - General Family Medicine 04/18/22 Dried Fruit Washer Relationship Specialty Start Date End Date Rg Menchaca MD [address] [facility] [address] [place] [address] PCP - General Family Medicine 04/18/22 Dried Fruit Washer Relationship Specialty Start Date End Date Rg Menchaca MD [address] [facility] [address] [place], [place] [id number] PCP - General Family Medicine 04/18/22 Dried Fruit Washer Relationship Specialty Start Date End Date Rg Menchaca MD [address] [facility] [address] [place], [place] [id number] PCP - General Family Medicine 04/18/22 Team [...] November 05, 2024 End: November 05, 2024 Dried Fruit Washer Relationship Specialty Start Date End Date Rg Menchaca MD [address] [place] [address] [address] [place] [address] PCP - General Family Medicine 04/18/22 Team [...] 02, 2025 End: February 02, 2025 Dr. Widny Yuen MD Attending physician Active Start: February [...] Inactive Member Role/Relationship Status Dates Dr. Rg Mecnhaca MD Primary care physician Active Start: March [...] BE BASED ON THE PRIMARY CLINICAL RECORDS. [facility] [employer] provides no warranty or guarantee of the accuracy or completeness of information in this document.
[2025-04-29] MEDS: Immune Globulin 20 gm 20 GM/200 ML VIAL IV (08:20)
[2025-04-29] MEDS: Immune Globulin 10 gm 10 GM/100 ML VIAL IV (10:55)
[2025-04-29] MEDS: Immune Globulin 5 GM 5 GM/50 ML VIAL IV (11:34)
== END 2025-04-29 23:59 | disposition home or self-care (01) ==
LOC: MEDOUTP 07:39
PROVIDERS: PCP Family Medicine; Referring Provider Psychiatry & Neurology Neurology; Visit Provider Psychiatry & Neurology Neurology
DX: G25.82 Stiff-man syndrome (principal)
CPT/HCPCS: 96365; 96366; A4216; J1568